=== PATIENT | female | born 1945 | race Caucasian/White ===

== ENCOUNTER 2017-07-20 12:14 | Outpatient (RCR) | payer MEDICARE, SELFPAY ==
[2017-07-20 12:50] VITALS: BP 168/81; PULSE 85; RESP 16; TEMP 36.6; BMI 38.7
--- NOTE | 2017-07-20 15:04 | RAD_ITS ---
STUDY: X-RAY - RIGHT TIBIA AND FIBULA REASON FOR EXAM: Female, 71 years old. Edema TECHNIQUE: 2 view(s) of the tibia and fibula were obtained. COMPARISON: None. FINDINGS: Normal visualized tibia. Normal visualized fibula. Degenerative changes at the knee. There is subcutaneous edema of the lower leg. Vascular calcifications. RAD/Tibia & Fibula 2 Views IMPRESSION: No acute bony injury of the tibia and fibula. Mild degenerative changes at the knee. Subcutaneous edema of the lower leg. Electronically Signed: Fabricio Short DO at 23:52 EST Tel [phone], Service support ,
--- NOTE | 2017-07-20 15:13 | PCM.WC.HP ---
(1) Non-pressure chronic ulcer of other part of right lower leg with fat layer exposed Status: Acute Current Visit: Yes Code(s): L97.812 - Non-pressure chronic ulcer of other part of right lower leg with fat layer exposed (2) Type 2 diabetes mellitus with other circulatory complications Status: Acute Current Visit: Yes Code(s): E11.59 - Type 2 diabetes mellitus with other circulatory complications (3) Bilateral leg edema Status: Acute Current Visit: Yes Code(s): R60.0 - Localized edema History of Present Illness Date of Service: 07/20/17 Chief Complaint: Non-healing ulcer R leg History of Wound: 71 year old diabetic woman with 2-3 week history of non-healing ulcer R alex. Pt states it started as a blister and opened. She was started on PO Keflex by her PCP and she has been applying hydrogel and telfa pads. She was referred her by her PCP due to no improvment in her leg ulceration. Has never had lower extremity vascular testing. Has not had recent blood work. Non-smoker. Blood sugar well-controlled, most recent A1c almost 1 year ago however and was 7.2. Pt does have CKD as well. No hx of CHF that she is aware of. Admits to sleeping in a recliner at night. Does not wear compression on her legs. Past Medical History Past Medical History: Chronic Problems Benign essential HTN (Chronic) DM2 (diabetes mellitus, type 2) (Chronic) TIA (transient ischemic attack) (Chronic) Breast CA (Chronic) Past Medical History: CKD Surgical History: mastectomy, - - Patient has had a right mastectomy and appendectomy Allergies/Adverse Reactions: Allergies clarithromycin [From Biaxin] Allergy (Verified 07/20/17 13:26) Unknown iodine Allergy (Verified 07/20/17 13:26) Unknown Home Medications: Ambulatory Orders Medication Instructions Recorded Aspirin [Aspirin, Baby] 81 mg PO DAILY@0800 08/08/13 Atenolol [Tenormin (beta geraldine)] 100 mg PO DAILY 08/08/13 Metformin(XR) [Glucophage Xr] 1,000 mg PO BID 08/08/13 Furosemide [Lasix] 40 mg PO DAILY #30 tablet 01/04/17 Losartan Potassium [Cozaar] 50 mg PO DAILY #30 tablet 01/04/17 Insulin Lispro [Humalog KwikPen] 0 unit SQ TID 04/15/17 Amlodipine Besylate [Norvasc] 5 mg PO DAILY 07/20/17 Cephalexin 500 mg PO TID 07/20/17 - Family History Sibling Cancer - Brother is from cancer that started in his leg Lives: Alone Smoking Status: Never smoker Tobacco Use: Non-smoker Alcohol: Rare Drugs: None Review of Systems Constitutional: Denies: Chills, Fever, Weight Change Eyes: Denies: Pain, Vision Change HEENT: Denies: Difficulty Hearing, Difficulty Swallowing, Sinus Congestion Cardiovascular: Reports: Edema. Denies: Chest Pain, Palpitations Respiratory: Denies: Cough, Shortness of Breath Gastrointestinal: Denies: Diarrhea, Nausea, Vomiting Genitourinary: Denies: Dysuria, Hematuria Skin: Reports: Wounds - R leg Neurological: Denies: Confusion, Numbness, Tingling Endocrine: Denies: Heat/ Cold Intolerance, Polydipsia, Polyuria Hematologic/ Lymphatic: Denies: Easy Bruising, Easy Bleeding, Hx of blood clot - Physical Exam Vital Signs Temp Pulse Resp BP 98 F 85 16 168/81 H 07/20/17 12:50 07/20/17 12:50 07/20/17 12:50 07/20/17 12:50 General: Alert, Oriented x3, Cooperative, No apparent distress Abdomen: Soft, Non Tender, Non-Distended Extremities: No clubbing, No cyanosis, Diminished Peripheral Pulses - likely secondary to edema, Edema Skin: Ulcer/ Wound - R alex with no erythema, no pus, no malodor, no increased warmth, no TTP of wound or constantine-wound area. No clinical signs of acute bacterial infection noted. See nurse's wound assessment. Wound Measurements and Assessment - Nurse 1 - General Ulcer Measurement Start: 07/20/17 12:30 Freq: Status: Active Protocol: Activity Type Activity Date Activity User E-Sign Co-Sign Detail Recorded Client Recorded Date Recorded By Document 07/20/17 12:50 [facility] [id number] 07/20/17 13:15 [facility] 07/20/17 12:50 Wound Center Nurse 1 [Ulcer Assessment Protocol: WC.WD.LOC] #1- RT LAT ALEX -Combined with other wound No -Current Size (cm) - Length 4.1 -Current Size (cm) - Width 4.6 -Current Size (cm) - Depth 0.1 -Total Square Cm 18.86 -Date of Last Picture (Recall this 07/20/17 field) -Photo Taken Yes -Epithelialization None Present -Tunneling No -Undermining/Tunneling No -Exudate Amt Small (1-33%) -Exudate Type Serosanguineous -Wound Margin Distinct, Outline Attached -Granulation Amt Small (1-33%) -Granulation Quality Red -Slough/Fibrin Yes -Necrosis Amt Medium (34-66%) -Necrotic Tissue Type Adherent Slough -Structure Exposed None/Limited to Skin Breakdown -Texture (Constantine-wound Skin Appearance) Scarring -Moisture (Constantine-wound Skin Appearance Dry/Scaly ) -Color (Constantine-wound Skin Appearance) Assessed Erythema -Temperature (Constantine-wound Skin No Abnormality Appearance) (Pt Warm) -Tenderness on Palpation (Constantine-wound Yes Skin Appearance) -Ulcer Cleansing Rinsed/ Irrigated with Saline -Foul Odor after Cleansing No -Anesthetic Used 5% Lidocaine Gel [Edema Assessment] -Lower Limb Edema Present Yes -Right Calf (cm) 47 -Right Ankle (cm) 24 -Point of Measurement (cm from the 7 medial instep) -Point of measurement (cm from the 48 medial instep) -Point of Measurement (cm from the 24.2 medial instep) WC - Nurse 2 - General Ulcer CM Notes Start: 07/20/17 12:30 Freq: Status: Active Protocol: Activity Type Activity Date Activity User E-Sign Co-Sign Detail Recorded Client Recorded Date Recorded By Document 07/20/17 14:03 MW [id number] 07/20/17 14:19 MW 07/20/17 14:03 Wound Center Nurse 2 [Procedure/Treatment] #1- RT LAT ALEX -Time 14:04 -Correct Patient Yes -Correct Side, Site, Position Yes -Correct Procedure Yes -Procedure Performed Yes -Type of Procedure Debridement -Clinical Debridement Subcutaneous -Post Debridement Size (cm) - Length 3.4 -Post Debridement Size (cm) - Width 4.2 -Post Debridement Size (cm) - Depth 0.1 -Total Square Cm 14.28 -Wound/Ulcer Outcome Not Healed -Ulcer Cleansing Rinsed/ Irrigated with Saline -Foul Odor after Cleansing No -Bioengineered Tissue No -Cetacaine [place] No -Bleeding Controlled with NA -Treatment Response Procedure Tolerated Well [See Physician Procedure note for Specifics] Debridement Note Post-Debridement Measurements/Treatment WC - Nurse 2 - General Ulcer CM Notes Start: 07/20/17 12:30 Freq: Status: Active Protocol: Activity Type Activity Date Activity User E-Sign Co-Sign Detail Recorded Client Recorded Date Recorded By Document 07/20/17 14:03 MW [id number] 07/20/17 14:19 MW 07/20/17 14:03 Wound Center Nurse 2 #1- RT LAT ALEX -Time 14:04 -Correct Patient Yes -Correct Side, Site, Position Yes -Correct Procedure Yes -Procedure Performed Yes -Type of Procedure Debridement -Clinical Debridement Subcutaneous -Post Debridement Size (cm) - Length 3.4 -Post Debridement Size (cm) - Width 4.2 -Post Debridement Size (cm) - Depth 0.1 -Total Square Cm 14.28 -Wound/Ulcer Outcome Not Healed -Ulcer Cleansing Rinsed/ Irrigated with Saline -Foul Odor after Cleansing No -Bioengineered Tissue No -Cetacaine [place] No -Bleeding Controlled with NA -Treatment Response Procedure Tolerated Well Wound debrided: R alex Laterality: Right Wound Grade/Stage: full thickness Type of Debridement: Excisional debridement Anesthesia Used: 4% Lidocaine Solution Depth: Down to and including healthy tissue, in the subcutaneous layer Percentage of wound debrided: 100 Instrument Used: 5mm curette Tissue Removed: fibrous slough Severity: Fat Layer Exposed Amount of bleeding with debridement: Mild Bleeding Controlled with: Pressure, Compression and gauze Patient tolerated procedure well Assessment/Plan Active Problems Type 2 diabetes mellitus with other circulatory complications (Acute) Bilateral leg edema (Acute) Non-pressure chronic ulcer of other part of right lower leg with fat layer exposed (Acute) Assessment: See diagnoses Plan: [employer] exam. SQ/excisional debridement R alex ulcer as above. Pt is non-smoker. Discussed importance of tight blood sugar control, adequate nutrition especially increased protein intake, to promote healing. Discussed importance of edema control--recommended leg elevation above her heart while resting or sleeping, avoiding idle sitting or standing, compression of at least 20-30 mmHg (AFTER vascular testing), increased activity, weight management. Pt not having much pain, no need to take NSAIDs. LEAs and venous duplex ordered. Moderate spandagrip until after vascular testing done. Pulses likely diminished bilaterally due to lower extremity edema, but again I did order arterial studies of bilateral legs. Stop previous dressings, start hydrofera blue and dry dressing 3x/week. Monitor for redness, pus, malodor, warmth, inc pain as well as for N/V/F/C and call or go to the ED with these. Return in 1 week, call with questions.
--- NOTE | 2017-07-20 15:22 | HP.PCM_ITS ---
(1) Non-pressure chronic ulcer of other part of right lower leg with fat layer exposed Status: Acute Current Visit: Yes Code(s): L97.812 - Non-pressure chronic ulcer of other part of right lower leg with fat layer exposed (2) Type 2 diabetes mellitus with other circulatory complications Status: Acute Current Visit: Yes Code(s): E11.59 - Type 2 diabetes mellitus with other circulatory complications (3) Bilateral leg edema Status: Acute Current Visit: Yes Code(s): R60.0 - Localized edema History of Present Illness Date of Service: 07/20/17 Chief Complaint: Non-healing ulcer R leg History of Wound: 71 year old diabetic woman with 2-3 week history of non- healing ulcer R alex. Pt states it started as a blister and opened. She was started on PO Keflex by her PCP and she has been applying hydrogel and telfa pads. She was referred her by her PCP due to no improvment in her leg ulceration. Has never had lower extremity vascular testing. Has not had recent blood work. Non-smoker. Blood sugar well-controlled, most recent A1c almost 1 year ago however and was 7.2. Pt does have CKD as well. No hx of CHF that she is aware of. Admits to sleeping in a recliner at night. Does not wear compression on her legs. Past Medical History Past Medical History: Chronic Problems Benign essential HTN (Chronic) DM2 (diabetes mellitus, type 2) (Chronic) TIA (transient ischemic attack) (Chronic) Breast CA (Chronic) Past Medical History: CKD Surgical History: mastectomy, - - Patient has had a right mastectomy and appendectomy Allergies/Adverse Reactions: Allergies clarithromycin [From Biaxin] Allergy (Verified 07/20/17 13:26) Unknown iodine Allergy (Verified 07/20/17 13:26) Unknown Home Medications: Ambulatory Orders Medication Instructions Recorded Aspirin [Aspirin, Baby] 81 mg PO DAILY@0800 08/08/13 Atenolol [Tenormin (beta geraldine)] 100 mg PO DAILY 08/08/13 Metformin(XR) [Glucophage Xr] 1,000 mg PO BID 08/08/13 Furosemide [Lasix] 40 mg PO DAILY #30 tablet 01/04/17 Losartan Potassium [Cozaar] 50 mg PO DAILY #30 tablet 01/04/17 Insulin Lispro [Humalog KwikPen] 0 unit SQ TID 04/15/17 Amlodipine Besylate [Norvasc] 5 mg PO DAILY 07/20/17 Cephalexin 500 mg PO TID 07/20/17 - Family History Sibling Cancer - Brother is from cancer that started in his leg Lives: Alone Smoking Status: Never smoker Tobacco Use: Non-smoker Alcohol: Rare Drugs: None Review of Systems Constitutional: Denies: Chills, Fever, Weight Change Eyes: Denies: Pain, Vision Change HEENT: Denies: Difficulty Hearing, Difficulty Swallowing, Sinus Congestion Cardiovascular: Reports: Edema. Denies: Chest Pain, Palpitations Respiratory: Denies: Cough, Shortness of Breath Gastrointestinal: Denies: Diarrhea, Nausea, Vomiting Genitourinary: Denies: Dysuria, Hematuria Skin: Reports: Wounds - R leg Neurological: Denies: Confusion, Numbness, Tingling Endocrine: Denies: Heat/ Cold Intolerance, Polydipsia, Polyuria Hematologic/ Lymphatic: Denies: Easy Bruising, Easy Bleeding, Hx of blood clot - Physical Exam Vital Signs Temp Pulse Resp BP 98 F 85 16 168/81 H 07/20/17 12:50 07/20/17 12:50 07/20/17 12:50 07/20/17 12:50 General: Alert, Oriented x3, Cooperative, No apparent distress Abdomen: Soft, Non Tender, Non-Distended Extremities: No clubbing, No cyanosis, Diminished Peripheral Pulses - likely secondary to edema, Edema Skin: Ulcer/ Wound - R alex with no erythema, no pus, no malodor, no increased warmth, no TTP of wound or constantine-wound area. No clinical signs of acute bacterial infection noted. See nurse's wound assessment. Wound Measurements and Assessment - Nurse 1 - General Ulcer Measurement Start: 07/20/17 12:30 Freq: Status: Active Protocol: Activity Type Activity Date Activity User E-Sign Co-Sign Detail Recorded Client Recorded Date Recorded By Document 07/20/17 12:50 [facility] [id number] 07/20/17 13:15 [facility] 07/20/17 12:50 Wound Center Nurse 1 [Ulcer Assessment Protocol: WC.WD.LOC] #1- RT LAT ALEX -Combined with other wound No -Current Size (cm) - Length 4.1 -Current Size (cm) - Width 4.6 -Current Size (cm) - Depth 0.1 -Total Square Cm 18.86 -Date of Last Picture (Recall this 07/20/17 field) -Photo Taken Yes -Epithelialization None Present -Tunneling No -Undermining/Tunneling No -Exudate Amt Small (1-33%) -Exudate Type Serosanguineous -Wound Margin Distinct, Outline Attached -Granulation Amt Small (1-33%) -Granulation Quality Red -Slough/Fibrin Yes -Necrosis Amt Medium (34-66%) -Necrotic Tissue Type Adherent Slough -Structure Exposed None/Limited to Skin Breakdown -Texture (Constantine-wound Skin Appearance) Scarring -Moisture (Constantine-wound Skin Appearance Dry/Scaly ) -Color (Constantine-wound Skin Appearance) Assessed Erythema -Temperature (Constantine-wound Skin No Abnormality Appearance) (Pt Warm) -Tenderness on Palpation (Constantine-wound Yes Skin Appearance) -Ulcer Cleansing Rinsed/ Irrigated with Saline -Foul Odor after Cleansing No -Anesthetic Used 5% Lidocaine Gel [Edema Assessment] -Lower Limb Edema Present Yes -Right Calf (cm) 47 -Right Ankle (cm) 24 -Point of Measurement (cm from the 7 medial instep) -Point of measurement (cm from the 48 medial instep) -Point of Measurement (cm from the 24.2 medial instep) WC - Nurse 2 - General Ulcer CM Notes Start: 07/20/17 12:30 Freq: Status: Active Protocol: Activity Type Activity Date Activity User E-Sign Co-Sign Detail Recorded Client Recorded Date Recorded By Document 07/20/17 14:03 MW [id number] 07/20/17 14:19 MW 07/20/17 14:03 Wound Center Nurse 2 [Procedure/Treatment] #1- RT LAT ALEX -Time 14:04 -Correct Patient Yes -Correct Side, Site, Position Yes -Correct Procedure Yes -Procedure Performed Yes -Type of Procedure Debridement -Clinical Debridement Subcutaneous -Post Debridement Size (cm) - Length 3.4 -Post Debridement Size (cm) - Width 4.2 -Post Debridement Size (cm) - Depth 0.1 -Total Square Cm 14.28 -Wound/Ulcer Outcome Not Healed -Ulcer Cleansing Rinsed/ Irrigated with Saline -Foul Odor after Cleansing No -Bioengineered Tissue No -Cetacaine [place] No -Bleeding Controlled with NA -Treatment Response Procedure Tolerated Well [See Physician Procedure note for Specifics] Debridement Note Post-Debridement Measurements/Treatment WC - Nurse 2 - General Ulcer CM Notes Start: 07/20/17 12:30 Freq: Status: Active Protocol: Activity Type Activity Date Activity User E-Sign Co-Sign Detail Recorded Client Recorded Date Recorded By Document 07/20/17 14:03 MW [id number] 07/20/17 14:19 MW 07/20/17 14:03 Wound Center Nurse 2 #1- RT LAT ALEX -Time 14:04 -Correct Patient Yes -Correct Side, Site, Position Yes -Correct Procedure Yes -Procedure Performed Yes -Type of Procedure Debridement -Clinical Debridement Subcutaneous -Post Debridement Size (cm) - Length 3.4 -Post Debridement Size (cm) - Width 4.2 -Post Debridement Size (cm) - Depth 0.1 -Total Square Cm 14.28 -Wound/Ulcer Outcome Not Healed -Ulcer Cleansing Rinsed/ Irrigated with Saline -Foul Odor after Cleansing No -Bioengineered Tissue No -Cetacaine [place] No -Bleeding Controlled with NA -Treatment Response Procedure Tolerated Well Wound debrided: R alex Laterality: Right Wound Grade/Stage: full thickness Type of Debridement: Excisional debridement Anesthesia Used: 4% Lidocaine Solution Depth: Down to and including healthy tissue, in the subcutaneous layer Percentage of wound debrided: 100 Instrument Used: 5mm curette Tissue Removed: fibrous slough Severity: Fat Layer Exposed Amount of bleeding with debridement: Mild Bleeding Controlled with: Pressure, Compression and gauze Patient tolerated procedure well Assessment/Plan Active Problems Type 2 diabetes mellitus with other circulatory complications (Acute) Bilateral leg edema (Acute) Non-pressure chronic ulcer of other part of right lower leg with fat layer exposed (Acute) Assessment: See diagnoses Plan: [employer] exam. SQ/excisional debridement R alex ulcer as above. Pt is non- smoker. Discussed importance of tight blood sugar control, adequate nutrition especially increased protein intake, to promote healing. Discussed importance of edema control--recommended leg elevation above her heart while resting or sleeping, avoiding idle sitting or standing, compression of at least 20-30 mmHg (AFTER vascular testing), increased activity, weight management. Pt not having much pain, no need to take NSAIDs. LEAs and venous duplex ordered. Moderate spandagrip until after vascular testing done. Pulses likely diminished bilaterally due to lower extremity edema, but again I did order arterial studies of bilateral legs. Stop previous dressings, start hydrofera blue and dry dressing 3x/week. Monitor for redness, pus, malodor, warmth, inc pain as well as for N/V/F/C and call or go to the ED with these. Return in 1 week, call with questions.
[2017-07-20 18:18] LABS: Absolute Lymphocyte Count 0.42 X10^3/ul (0.83-4.51); Absolute Neutrophil Count 1.8 X10^3/uL (2.0-7.7); Basophil# 0.01 X10^3/uL; Basophil% 0.4 % (0-1); Eosinophil# 0.07 X10^3/uL; Eosinophils% 2.8 % (0-5); Hematocrit 33.9 % (37-47); Hemoglobin 10.8 g/dl (12.0-15.0); Lymphocyte # 0.42 X10^3/ul (4.0); Lymphocyte % 16.7 % (19-41); Mean Corp Hgb Conc 31.9 g/gl (32-36); Mean Corpuscular Hgb 29.9 pg (27.0-32.0); Mean Corpuscular Volume 93.9 fL (81-99); Mean Platelet Vol. 10.6 fl (6.2-12.0); Monocyte# 0.23 X10^3/uL; Monocyte% 9.1 % (0-10); Neutrophil # 1.79 X10^3/uL (2.7-7.7); Platelet Count 86 K/mm3 (150-450); RBC Distribution Width CV 15.1 % (11.6-14.6); RBC Distribution Width SD 52.3 fl (35.1-43.9); Red Blood Count 3.61 M/mm3 (4.2-5.4); White Blood Count 2.5 K/mm3 (4.4-11.0)
[2017-07-20 18:20] LABS: Differential Indicated SCAN CRITERIA MET; POSITIVE COUNT NO; POSITIVE DIFFERENTIAL YES; POSITIVE MORPHOLOGY NO
[2017-07-20 18:38] LABS: Differential Comment SCANNED; Erythrocyte Sedimentation Rate 37 mm/hr (0-30)
[2017-07-20 19:23] LABS: ALB/GLOB Ratio 0.7 RATIO (0.9-2.4); AST(SGOT) 61 U/L (15-37); Alanine Aminotransfer ALT/SGPT 53 U/L (13-56); Albumin, Serum 3.2 g/dL (3.2-5.0); Alkaline Phosphatase 247 U/L (45-117); Anion Gap 8 (5-15); BUN 25 mg/dL (7-18); BUN/Creat Ratio 23.8 RATIO (10-20); Calcium,Total 10.5 mg/dL (8.5-10.1); Chloride 107 mmol/L (98-107); Creatinine, Serum 1.05 mg/dL (0.55-1.02); EST Glomerular Filtration Rate 55 mL/min (>60); Est Glom Filt Rate - Afr Amer 67 mL/min (>60); Estimated Creatinine Clearance 39.43 ml/min; Globulin 4.3 g/dL (2.2-4.2); Glucose 136 mg/dL (70-110); Potassium 4.2 mmol/L (3.5-5.1); Prealbumin 9.8 mg/dL (20.0-40.0); Protein, Total 7.5 g/dL (6.4-8.2); Sodium Level 142 mmol/L (136-145)
== END 2017-07-21 23:59 ==
LOC: WC 12:14
PROVIDERS: Family Provider Family Medicine; PCP Family Medicine; Visit Provider Podiatrist Foot & Ankle Surgery
DX: E11.622 Type 2 diabetes mellitus with other skin ulcer (principal); L97.812 Non-pressure chronic ulcer of other part of right lower leg with fat layer exposed; E11.59 Type 2 diabetes mellitus with other circulatory complications; R60.0 Localized edema; Z86.73 Personal history of transient ischemic attack (TIA), and cerebral infarction without residual deficits; Z85.3 Personal history of malignant neoplasm of breast; E11.22 Type 2 diabetes mellitus with diabetic chronic kidney disease; I12.9 Hypertensive chronic kidney disease with stage 1 through stage 4 chronic kidney disease, or unspecified chronic kidney disease; N18.9 Chronic kidney disease, unspecified; Z79.899 Other long term (current) drug therapy; Z79.82 Long term (current) use of aspirin; Z79.4 Long term (current) use of insulin
CPT/HCPCS: 11042; 36415; 73590; 80053; 83036; 84134; 85025; 85652; 86140; 99213; G0463

== ENCOUNTER 2017-08-02 12:22 | Outpatient (RCR) | payer MEDICARE, SELFPAY ==
[2017-07-20 12:50] VITALS: BP 168/81
[2017-07-22 01:21] VITALS: PULSE 85; RESP 16; TEMP 36.6
--- NOTE | 2017-08-02 12:25 | VDLE_ITS ---
Reason For Study: Non-healing wound RIGHT LEFT GSV is normal. GSV is normal. CFV is compressible, spontaneous, phasic, CFV is compressible, spontaneous, phasic, competent and demonstrates normal competent, and demonstrates normal augmentation. augmentation. FV is compressible, spontaneous, phasic, FV is compressible, spontaneous, phasic, competent and demonstrates normal competent and demonstrates normal augmentation. augmentation. POP V is compressible, spontaneous, phasic, POP V is compressible, spontaneous, phasic, competent and demonstrates normal competent and demonstrates normal augmentation. augmentation. T/P Trunk is compressible. T/P Trunk is compressible. PTV is compressible. PTV is compressible. RT PerV is compressible. LT PerV is compressible. SFJ is INCOMPETENT with reflux greater SFJ is competent than .5 sec GSV is competent above knee GSV is INCOMPETENt with reflux greater GSV is INCOMPETENT below knee with reflux than .5 sec and diameter of .36 x .36 cm greater than .5 sec and diameter of .31 SSV is competent. x .33 cm Procedure SSV is competent. Exam performed in department. A preliminary report was called and/or faxed to [facility]. Interpretation Summary Deep veins of the lower extremities are bilaterally patent and compressible segmentally. There is no evidence of deep vein thrombosis on either side. Valvular competence appears intact within the proximal deep venous systems bilaterally. The greater saphenous veins appear bilaterally patent and compressible segmentally. The right sapheno-femoral junction is incompetent . The left sapheno- femoral junction is competent . The right greater saphenous vein appears segmentally incompetent. The left greater saphenous vein appears competent above the knee. The left greater saphenous vein appears incompetent below the knee. Small saphenous veins are patent and competent bilaterally. Ordering Physician: Rob Claire Referring Physician: Rob Claire Performed By: Luis Felipe, Yris, RVT
--- NOTE | 2017-08-06 06:34 | LEAS ---
Arterial Study - Arterial Study Arterial Study: This is a 71-year-old female with a history of hypertension, diabetes mellitus, transient ischemic attack, and breast cancer. She presents with a chronic nonhealing wound to the right lower extremity. Suspecting the presence of atherosclerotic peripheral arterial occlusive disease, the patient was brought to the noninvasive vascular laboratory at this time for the purpose of bilateral noninvasive lower extremity arterial assessment. Doppler signal assessment was used to evaluate the pulses at ankle level bilaterally. The posterior tibial and dorsalis pedis pulses were triphasic bilaterally. Segmental limb pressures were obtained bilaterally. The right ankle pressure, as determined by posterior tibial pulse, was measured at 227 mmHg. The right ankle pressure, as determined by dorsalis pedis pulse, was measured at 228 mmHg. The right digital pressure was measured at 172 2 mmHg. The left ankle pressure, as determined by posterior tibial pulse, was measured at 220 mmHg. The left ankle pressure, as determined by dorsalis pedis pulse, was measured at 216 mmHg. The left digital pressure was measured at 167 mmHg. Pulse-volume recordings were obtained bilaterally and segmentally. Waveform amplitudes appeared to be satisfactory at all levels bilaterally, including low thigh, calf, ankle, and digital levels. Resting ankle-brachial indices were calculated bilaterally. The resting right ankle-brachial index was calculated to be 1.34. The resting left ankle-brachial index was calculated to be 1.29. Digital-brachial indices were calculated bilaterally. The right digital-brachial index was calculated to be 1.01. The left digital-brachial index was calculated to be 0.98. Impression: Based upon the findings of this resting noninvasive lower external study, there is no evidence of significant atherosclerotic peripheral arterial occlusive disease in the lower extremities bilaterally. Triphasic waveforms were noted at ankle level bilaterally. Resting ankle-brachial indices were bilaterally normal. Digital-brachial indices were also bilaterally normal. In summary, this represents a normal resting noninvasive lower extremity trial study bilaterally.
--- NOTE | 2017-08-06 06:38 | LEAS_ITS ---
Arterial Study - Arterial Study Arterial Study: This is a 71-year-old female with a history of hypertension, diabetes mellitus, transient ischemic attack, and breast cancer. She presents with a chronic nonhealing wound to the right lower extremity. Suspecting the presence of atherosclerotic peripheral arterial occlusive disease, the patient was brought to the noninvasive vascular laboratory at this time for the purpose of bilateral noninvasive lower extremity arterial assessment. Doppler signal assessment was used to evaluate the pulses at ankle level bilaterally. The posterior tibial and dorsalis pedis pulses were triphasic bilaterally. Segmental limb pressures were obtained bilaterally. The right ankle pressure, as determined by posterior tibial pulse, was measured at 227 mmHg. The right ankle pressure, as determined by dorsalis pedis pulse, was measured at 228 mmHg. The right digital pressure was measured at 172 2 mmHg. The left ankle pressure, as determined by posterior tibial pulse, was measured at 220 mmHg. The left ankle pressure, as determined by dorsalis pedis pulse, was measured at 216 mmHg. The left digital pressure was measured at 167 mmHg. Pulse-volume recordings were obtained bilaterally and segmentally. Waveform amplitudes appeared to be satisfactory at all levels bilaterally, including low thigh, calf, ankle, and digital levels. Resting ankle-brachial indices were calculated bilaterally. The resting right ankle-brachial index was calculated to be 1.34. The resting left ankle- brachial index was calculated to be 1.29. Digital-brachial indices were calculated bilaterally. The right digital- brachial index was calculated to be 1.01. The left digital-brachial index was calculated to be 0.98. Impression: Based upon the findings of this resting noninvasive lower external study, there is no evidence of significant atherosclerotic peripheral arterial occlusive disease in the lower extremities bilaterally. Triphasic waveforms were noted at ankle level bilaterally. Resting ankle-brachial indices were bilaterally normal. Digital-brachial indices were also bilaterally normal. In summary, this represents a normal resting noninvasive lower extremity trial study bilaterally.
== END 2017-08-18 23:59 ==
LOC: CVS 12:22
PROVIDERS: Family Provider Family Medicine; PCP Family Medicine; Visit Provider Podiatrist Foot & Ankle Surgery
DX: E11.622 Type 2 diabetes mellitus with other skin ulcer (principal); R60.0 Localized edema; Z86.73 Personal history of transient ischemic attack (TIA), and cerebral infarction without residual deficits; Z85.3 Personal history of malignant neoplasm of breast; L97.812 Non-pressure chronic ulcer of other part of right lower leg with fat layer exposed; E11.22 Type 2 diabetes mellitus with diabetic chronic kidney disease; N18.9 Chronic kidney disease, unspecified; I12.9 Hypertensive chronic kidney disease with stage 1 through stage 4 chronic kidney disease, or unspecified chronic kidney disease; E11.51 Type 2 diabetes mellitus with diabetic peripheral angiopathy without gangrene
CPT/HCPCS: 11042; 29581; 93923; 93970; 99211; 99212; G0463

== ENCOUNTER 2017-08-17 14:00 | Outpatient (RCR) | payer MEDICARE, SELFPAY ==
[2017-07-27 13:13] VITALS: BP 160/59; PULSE 80; RESP 18; TEMP 36.9
--- NOTE | 2017-07-27 14:33 | PCM.WC.PN ---
(1) Non-pressure chronic ulcer of other part of right lower leg with fat layer exposed Status: Acute Current Visit: Yes Code(s): L97.812 - Non-pressure chronic ulcer of other part of right lower leg with fat layer exposed (2) Type 2 diabetes mellitus with other circulatory complications Status: Acute Current Visit: Yes Code(s): E11.59 - Type 2 diabetes mellitus with other circulatory complications (3) Bilateral leg edema Status: Acute Current Visit: Yes Code(s): R60.0 - Localized edema Type of Wound Date of Service: 07/27/17 Chief Complaint: Non-healing ulcer R leg History of Wound: 71 year old diabetic woman with 2-3 week history of non-healing ulcer R alex. Pt states it started as a blister and opened. She was started on PO Keflex by her PCP and she has been applying hydrogel and telfa pads. She was referred her by her PCP due to no improvment in her leg ulceration. Has never had lower extremity vascular testing. Has not had recent blood work. Non-smoker. Blood sugar well-controlled, most recent A1c almost 1 year ago however and was 7.2. Pt does have CKD as well. No hx of CHF that she is aware of. Admits to sleeping in a recliner at night. Does not wear compression on her legs. 2/6-Has been trying to keep her legs elevated. Tolerated size F spandagrip, hydrofera blue well, but dressing adhered to the ulceration today. Vascular testing scheduled for next week. Pre-albumin low, emphasized importance of adequate nutrition today. 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 Progress of Wound: improved - Physical Exam Vital Signs Temp Pulse Resp BP 98.4 F 80 18 160/59 H 07/27/17 13:13 07/27/17 13:13 07/27/17 13:13 07/27/17 13:13 General: Alert, Oriented x3, Cooperative, No apparent distress Extremities: Edema Skin: Ulcer/ Wound - R alex with no erythema, no malodor, no pus, no calor, no TTP. No clinical signs of acute bacterial infection noted. See wound/edema assessment below. Wound Measurements and Assessment WC - Nurse 1 - General Ulcer Measurement Start: 07/27/17 13:13 Freq: Status: Active Protocol: Activity Type Activity Date Activity User E-Sign Co-Sign Detail Recorded Client Recorded Date Recorded By Document 07/27/17 13:13 MW [id number] 07/27/17 13:22 MW 07/27/17 13:13 Wound Center Nurse 1 [Ulcer Assessment Protocol: WC.WD.LOC] #1- RT LAT ALEX -Combined with other wound No -Current Size (cm) - Length 3.3 -Current Size (cm) - Width 4.2 -Current Size (cm) - Depth 0.1 -Total Square Cm 13.86 -Photo Taken No -Epithelialization Small 1-33% -Tunneling No -Undermining/Tunneling No -Circular Undermining No -Exudate Amt Small (1-33%) -Exudate Type Serosanguineous -Wound Margin Flat & Intact -Granulation Amt Medium (34-66%) -Granulation Quality Red -Slough/Fibrin Yes -Necrosis Amt Small (1-33%) -Necrotic Tissue Type Adherent Slough -Structure Exposed N/A -Texture (Cary-wound Skin Appearance) Assessed Localized Edema -Moisture (Cary-wound Skin Appearance Assessed ) Dry/Scaly -Color (Cary-wound Skin Appearance) No Abnormality Assessed -Temperature (Cary-wound Skin No Abnormality Appearance) (Pt Warm) -Tenderness on Palpation (Cary-wound Yes Skin Appearance) -Ulcer Cleansing Wound Cleanser -Foul Odor after Cleansing No -Anesthetic Used 4% Lidocaine Solution [Edema Assessment] -Lower Limb Edema Present Yes -Right Calf (cm) 45.5 -Right Ankle (cm) 24.5 WC - Nurse 2 - General Ulcer CM Notes Start: 07/27/17 13:13 Freq: Status: Active Protocol: Activity Type Activity Date Activity User E-Sign Co-Sign Detail Recorded Client Recorded Date Recorded By Document 07/27/17 13:32 MW [id number] 07/27/17 13:38 MW 07/27/17 13:32 Wound Center Nurse 2 [Procedure/Treatment] #1- RT LAT ALEX -Time 13:35 -Correct Patient Yes -Correct Side, Site, Position Yes -Correct Procedure Yes -Procedure Performed Yes -Type of Procedure Debridement -Clinical Debridement Subcutaneous -Post Debridement Size (cm) - Length 3.3 -Post Debridement Size (cm) - Width 2.9 -Post Debridement Size (cm) - Depth 0.1 -Total Square Cm 9.57 -Wound/Ulcer Outcome Not Healed -Ulcer Cleansing Rinsed/ Irrigated with Saline -Foul Odor after Cleansing No -Bioengineered Tissue No -Bleeding Controlled with Pressure -Treatment Response Procedure Tolerated Well [See Physician Procedure note for Specifics] Pain Scale: 0-10 Numeric [Pain] -Is Patient Pain Free? Yes Debridement Note Post-Debridement Measurements/Treatment WC - Nurse 2 - General Ulcer CM Notes Start: 07/27/17 13:13 Freq: Status: Active Protocol: Activity Type Activity Date Activity User E-Sign Co-Sign Detail Recorded Client Recorded Date Recorded By Document 07/27/17 13:32 MW [id number] 07/27/17 13:38 MW 07/27/17 13:32 Wound Center Nurse 2 #1- RT LAT ALEX -Time 13:35 -Correct Patient Yes -Correct Side, Site, Position Yes -Correct Procedure Yes -Procedure Performed Yes -Type of Procedure Debridement -Clinical Debridement Subcutaneous -Post Debridement Size (cm) - Length 3.3 -Post Debridement Size (cm) - Width 2.9 -Post Debridement Size (cm) - Depth 0.1 -Total Square Cm 9.57 -Wound/Ulcer Outcome Not Healed -Ulcer Cleansing Rinsed/ Irrigated with Saline -Foul Odor after Cleansing No -Bioengineered Tissue No -Bleeding Controlled with Pressure -Treatment Response Procedure Tolerated Well Pain Scale: 0-10 Numeric Is Patient Pain Free? Yes Wound debrided: R leg Laterality: Right Wound Grade/Stage: Full thickness Type of Debridement: Excisional debridement Anesthesia Used: 4% Lidocaine Solution Depth: Down to and including healthy tissue, in the subcutaneous layer Percentage of wound debrided: 100 Instrument Used: 3mm curette Tissue Removed: fibrous slough Severity: Fat Layer Exposed Amount of bleeding with debridement: Mild Bleeding Controlled with: Pressure, Compression and gauze Patient tolerated procedure well Assessment/Plan Active Problems Type 2 diabetes mellitus with other circulatory complications (Acute) Bilateral leg edema (Acute) Non-pressure chronic ulcer of other part of right lower leg with fat layer exposed (Acute) Assessment: See diagnoses Plan: SQ/excisional debridement R alex ulcer as above. Pt is non-smoker. Discussed importance of tight blood sugar control, adequate nutrition especially increased protein intake, to promote healing. Discussed importance of edema control--recommended leg elevation above her heart while resting or sleeping, avoiding idle sitting or standing, compression of at least 20-30 mmHg (AFTER vascular testing), increased activity, weight management. Pt not having much pain, no need to take NSAIDs. LEAs and venous duplex ordered last visit and are scheduled for next week. Cont moderate spandagrip until after vascular testing done. Pulses likely diminished bilaterally due to lower extremity edema, but again I did order arterial studies of bilateral legs. Cont hydrofera blue, add adaptic to wound first prior to applying hydrofera blue, and cont dry dressing 3x/week. Monitor for redness, pus, malodor, warmth, inc pain as well as for N/V/F/C and call or go to the ED with these. Return in 1 week, call with questions.
--- NOTE | 2017-07-27 14:37 | PN.PCM_ITS ---
(1) Non-pressure chronic ulcer of other part of right lower leg with fat layer exposed Status: Acute Current Visit: Yes Code(s): L97.812 - Non-pressure chronic ulcer of other part of right lower leg with fat layer exposed (2) Type 2 diabetes mellitus with other circulatory complications Status: Acute Current Visit: Yes Code(s): E11.59 - Type 2 diabetes mellitus with other circulatory complications (3) Bilateral leg edema Status: Acute Current Visit: Yes Code(s): R60.0 - Localized edema Type of Wound Date of Service: 07/27/17 Chief Complaint: Non-healing ulcer R leg History of Wound: 71 year old diabetic woman with 2-3 week history of non- healing ulcer R alex. Pt states it started as a blister and opened. She was started on PO Keflex by her PCP and she has been applying hydrogel and telfa pads. She was referred her by her PCP due to no improvment in her leg ulceration. Has never had lower extremity vascular testing. Has not had recent blood work. Non-smoker. Blood sugar well-controlled, most recent A1c almost 1 year ago however and was 7.2. Pt does have CKD as well. No hx of CHF that she is aware of. Admits to sleeping in a recliner at night. Does not wear compression on her legs. 2/6-Has been trying to keep her legs elevated. Tolerated size F spandagrip, hydrofera blue well, but dressing adhered to the ulceration today. Vascular testing scheduled for next week. Pre-albumin low, emphasized importance of adequate nutrition today. 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 Progress of Wound: improved - Physical Exam Vital Signs Temp Pulse Resp BP 98.4 F 80 18 160/59 H 07/27/17 13:13 07/27/17 13:13 07/27/17 13:13 07/27/17 13:13 General: Alert, Oriented x3, Cooperative, No apparent distress Extremities: Edema Skin: Ulcer/ Wound - R alex with no erythema, no malodor, no pus, no calor, no TTP. No clinical signs of acute bacterial infection noted. See wound/edema assessment below. Wound Measurements and Assessment WC - Nurse 1 - General Ulcer Measurement Start: 07/27/17 13:13 Freq: Status: Active Protocol: Activity Type Activity Date Activity User E-Sign Co-Sign Detail Recorded Client Recorded Date Recorded By Document 07/27/17 13:13 MW [id number] 07/27/17 13:22 MW 07/27/17 13:13 Wound Center Nurse 1 [Ulcer Assessment Protocol: WC.WD.LOC] #1- RT LAT ALEX -Combined with other wound No -Current Size (cm) - Length 3.3 -Current Size (cm) - Width 4.2 -Current Size (cm) - Depth 0.1 -Total Square Cm 13.86 -Photo Taken No -Epithelialization Small 1-33% -Tunneling No -Undermining/Tunneling No -Circular Undermining No -Exudate Amt Small (1-33%) -Exudate Type Serosanguineous -Wound Margin Flat & Intact -Granulation Amt Medium (34-66%) -Granulation Quality Red -Slough/Fibrin Yes -Necrosis Amt Small (1-33%) -Necrotic Tissue Type Adherent Slough -Structure Exposed N/A -Texture (Cary-wound Skin Appearance) Assessed Localized Edema -Moisture (Cary-wound Skin Appearance Assessed ) Dry/Scaly -Color (Cary-wound Skin Appearance) No Abnormality Assessed -Temperature (Cary-wound Skin No Abnormality Appearance) (Pt Warm) -Tenderness on Palpation (Cary-wound Yes Skin Appearance) -Ulcer Cleansing Wound Cleanser -Foul Odor after Cleansing No -Anesthetic Used 4% Lidocaine Solution [Edema Assessment] -Lower Limb Edema Present Yes -Right Calf (cm) 45.5 -Right Ankle (cm) 24.5 WC - Nurse 2 - General Ulcer CM Notes Start: 07/27/17 13:13 Freq: Status: Active Protocol: Activity Type Activity Date Activity User E-Sign Co-Sign Detail Recorded Client Recorded Date Recorded By Document 07/27/17 13:32 MW [id number] 07/27/17 13:38 MW 07/27/17 13:32 Wound Center Nurse 2 [Procedure/Treatment] #1- RT LAT ALEX -Time 13:35 -Correct Patient Yes -Correct Side, Site, Position Yes -Correct Procedure Yes -Procedure Performed Yes -Type of Procedure Debridement -Clinical Debridement Subcutaneous -Post Debridement Size (cm) - Length 3.3 -Post Debridement Size (cm) - Width 2.9 -Post Debridement Size (cm) - Depth 0.1 -Total Square Cm 9.57 -Wound/Ulcer Outcome Not Healed -Ulcer Cleansing Rinsed/ Irrigated with Saline -Foul Odor after Cleansing No -Bioengineered Tissue No -Bleeding Controlled with Pressure -Treatment Response Procedure Tolerated Well [See Physician Procedure note for Specifics] Pain Scale: 0-10 Numeric [Pain] -Is Patient Pain Free? Yes Debridement Note Post-Debridement Measurements/Treatment WC - Nurse 2 - General Ulcer CM Notes Start: 07/27/17 13:13 Freq: Status: Active Protocol: Activity Type Activity Date Activity User E-Sign Co-Sign Detail Recorded Client Recorded Date Recorded By Document 07/27/17 13:32 MW [id number] 07/27/17 13:38 MW 07/27/17 13:32 Wound Center Nurse 2 #1- RT LAT AELX -Time 13:35 -Correct Patient Yes -Correct Side, Site, Position Yes -Correct Procedure Yes -Procedure Performed Yes -Type of Procedure Debridement -Clinical Debridement Subcutaneous -Post Debridement Size (cm) - Length 3.3 -Post Debridement Size (cm) - Width 2.9 -Post Debridement Size (cm) - Depth 0.1 -Total Square Cm 9.57 -Wound/Ulcer Outcome Not Healed -Ulcer Cleansing Rinsed/ Irrigated with Saline -Foul Odor after Cleansing No -Bioengineered Tissue No -Bleeding Controlled with Pressure -Treatment Response Procedure Tolerated Well Pain Scale: 0-10 Numeric Is Patient Pain Free? Yes Wound debrided: R leg Laterality: Right Wound Grade/Stage: Full thickness Type of Debridement: Excisional debridement Anesthesia Used: 4% Lidocaine Solution Depth: Down to and including healthy tissue, in the subcutaneous layer Percentage of wound debrided: 100 Instrument Used: 3mm curette Tissue Removed: fibrous slough Severity: Fat Layer Exposed Amount of bleeding with debridement: Mild Bleeding Controlled with: Pressure, Compression and gauze Patient tolerated procedure well Assessment/Plan Active Problems Type 2 diabetes mellitus with other circulatory complications (Acute) Bilateral leg edema (Acute) Non-pressure chronic ulcer of other part of right lower leg with fat layer exposed (Acute) Assessment: See diagnoses Plan: SQ/excisional debridement R alex ulcer as above. Pt is non-smoker. Discussed importance of tight blood sugar control, adequate nutrition especially increased protein intake, to promote healing. Discussed importance of edema control--recommended leg elevation above her heart while resting or sleeping, avoiding idle sitting or standing, compression of at least 20-30 mmHg (AFTER vascular testing), increased activity, weight management. Pt not having much pain, no need to take NSAIDs. LEAs and venous duplex ordered last visit and are scheduled for next week. Cont moderate spandagrip until after vascular testing done. Pulses likely diminished bilaterally due to lower extremity edema , but again I did order arterial studies of bilateral legs. Cont hydrofera blue , add adaptic to wound first prior to applying hydrofera blue, and cont dry dressing 3x/week. Monitor for redness, pus, malodor, warmth, inc pain as well as for N/V/F/C and call or go to the ED with these. Return in 1 week, call with questions.
[2017-08-03 13:48] VITALS: BP 161/92; PULSE 84; RESP 18; TEMP 36.5
--- NOTE | 2017-08-03 14:45 | PCM.WC.PN ---
(1) Non-pressure chronic ulcer of other part of right lower leg with fat layer exposed Status: Acute Current Visit: Yes Code(s): L97.812 - Non-pressure chronic ulcer of other part of right lower leg with fat layer exposed (2) Type 2 diabetes mellitus with other circulatory complications Status: Acute Current Visit: Yes Code(s): E11.59 - Type 2 diabetes mellitus with other circulatory complications (3) Bilateral leg edema Status: Acute Current Visit: Yes Code(s): R60.0 - Localized edema (4) Venous insufficiency (chronic) (peripheral) Status: Chronic Current Visit: Yes Code(s): I87.2 - Venous insufficiency (chronic) (peripheral) Type of Wound Date of Service: 08/03/17 Chief Complaint: Non-healing ulcer R leg History of Wound: 71 year old diabetic woman with 2-3 week history of non-healing ulcer R alex. Pt states it started as a blister and opened. She was started on PO Keflex by her PCP and she has been applying hydrogel and telfa pads. She was referred her by her PCP due to no improvment in her leg ulceration. Has never had lower extremity vascular testing. Has not had recent blood work. Non-smoker. Blood sugar well-controlled, most recent A1c almost 1 year ago however and was 7.2. Pt does have CKD as well. No hx of CHF that she is aware of. Admits to sleeping in a recliner at night. Does not wear compression on her legs. 07/27-Has been trying to keep her legs elevated. Tolerated size F spandagrip, hydrofera blue well, but dressing adhered to the ulceration today. Vascular testing scheduled for next week. Pre-albumin low, emphasized importance of adequate nutrition today. WBC, RBC, Hgb as well as other labs abnormal, will fax results to the patient's PCP so he can decide if she needs referral back to her astrophysics teacher. 08/03--Has been trying to keep her legs elevated. Tolerated size F spandagrip, adaptic, and hydrofera blue well Vascular testing done and reveals normal BART[place]O but venous insufficiency bilateral. Pre-albumin low, emphasized importance of adequate nutrition today. WBC, RBC, Hgb as well as other labs abnormal, will fax results to the patient's PCP so he can decide if she needs referral back to her astrophysics teacher. I did recommend referral to a vascular surgeon for venous insufficiency, but patient defers for now and would like to wait until her ulcer heals. Progress of Wound: improved - Physical Exam Vital Signs Temp Pulse Resp BP 97.7 F L 84 18 161/92 H 08/03/17 13:48 08/03/17 13:48 08/03/17 13:48 08/03/17 13:48 General: Alert, Oriented x3, Cooperative, No apparent distress Extremities: Edema Skin: Ulcer/ Wound - R alex with no surrounding erythema, no malodor, no purulent drainage, no calor, no TTP of ulcer or constantine-ulcer area. No clinical signs of acute bacterial infection noted. See nurse's wound assessment. Wound Measurements and Assessment WC - Nurse 1 - General Ulcer Measurement Start: 07/27/17 13:13 Freq: Status: Active Protocol: Activity Type Activity Date Activity User E-Sign Co-Sign Detail Recorded Client Recorded Date Recorded By Document 08/03/17 13:48 [id number] 08/03/17 13:50 08/03/17 13:48 Wound Center Nurse 1 [Ulcer Assessment Protocol: WC.WD.LOC] #1- RT LAT ALEX -Combined with other wound No -Current Size (cm) - Length 2.2 -Current Size (cm) - Width 1.6 -Current Size (cm) - Depth 0.1 -Total Square Cm 3.52 -Photo Taken No -Epithelialization Small 1-33% -Tunneling No -Undermining/Tunneling No -Circular Undermining No -Classification - Thickness Full Thickness without Exposed Support Structure -Exudate Amt Small (1-33%) -Exudate Type Serosanguineous -Wound Margin Distinct, Outline Attached -Granulation Amt Large (67-100%) -Granulation Quality [place] -Slough/Fibrin Yes -Necrosis Amt Small (1-33%) -Necrotic Tissue Type Adherent Slough -Structure Exposed Fascia Fat Layer Exposed -Texture (Constantine-wound Skin Appearance) Friable Localized Edema -Moisture (Constantine-wound Skin Appearance No Abnormality ) -Color (Constantine-wound Skin Appearance) Erythema -Temperature (Constantine-wound Skin No Abnormality Appearance) (Pt Warm) -Tenderness on Palpation (Constantine-wound No Skin Appearance) -Ulcer Cleansing Rinsed/ Irrigated with Saline -Foul Odor after Cleansing No -Anesthetic Used 4% Lidocaine Solution [Edema Assessment] -Lower Limb Edema Present Yes -Right Calf (cm) 44.5 -Right Ankle (cm) 24.5 WC - Nurse 2 - General Ulcer CM Notes Start: 07/27/17 13:13 Freq: Status: Active Protocol: Activity Type Activity Date Activity User E-Sign Co-Sign Detail Recorded Client Recorded Date Recorded By Document 08/03/17 14:15 MW [id number] 08/03/17 14:18 MW 08/03/17 14:15 Wound Center Nurse 2 [Procedure/Treatment] #1- RT LAT ALEX -Time 14:15 -Correct Patient Yes -Correct Side, Site, Position Yes -Correct Procedure Yes -Procedure Performed Yes -Type of Procedure Debridement -Clinical Debridement Subcutaneous -Post Debridement Size (cm) - Length 2.2 -Post Debridement Size (cm) - Width 1.7 -Post Debridement Size (cm) - Depth 0.1 -Total Square Cm 3.74 -Wound/Ulcer Outcome Not Healed -Ulcer Cleansing Rinsed/ Irrigated with Saline -Foul Odor after Cleansing No -Bioengineered Tissue No -Bleeding Controlled with Pressure -Treatment Response Procedure Tolerated Well [See Physician Procedure note for Specifics] Pain Scale: 0-10 Numeric [Pain] -Is Patient Pain Free? Yes Debridement Note Post-Debridement Measurements/Treatment WC - Nurse 2 - General Ulcer CM Notes Start: 07/27/17 13:13 Freq: Status: Active Protocol: Activity Type Activity Date Activity User E-Sign Co-Sign Detail Recorded Client Recorded Date Recorded By Document 07/27/17 13:32 MW [id number] 07/27/17 13:38 MW Document 08/03/17 14:15 MW [id number] 08/03/17 14:18 MW 07/27/17 08/03/17 13:32 14:15 Wound Center Nurse 2 #1- RT LAT ALEX -Time 13:35 14:15 -Correct Patient Yes Yes -Correct Side, Site, Position Yes Yes -Correct Procedure Yes Yes -Procedure Performed Yes Yes -Type of Procedure Debridement Debridement -Clinical Debridement Subcutaneous Subcutaneous -Post Debridement Size (cm) - Length 3.3 2.2 -Post Debridement Size (cm) - Width 2.9 1.7 -Post Debridement Size (cm) - Depth 0.1 0.1 -Total Square Cm 9.57 3.74 -Wound/Ulcer Outcome Not Healed Not Healed -Ulcer Cleansing Rinsed/ Rinsed/ Irrigated with Irrigated with Saline Saline -Foul Odor after Cleansing No No -Bioengineered Tissue No No -Bleeding Controlled with Pressure Pressure -Treatment Response Procedure Procedure Tolerated Well Tolerated Well Pain Scale: 0-10 Numeric Is Patient Pain Free? Yes Yes Wound debrided: R alex Laterality: Right Wound Grade/Stage: full thickness VLU Type of Debridement: Excisional debridement Anesthesia Used: 4% Lidocaine Solution Depth: Down to and including healthy tissue, in the subcutaneous layer Percentage of wound debrided: 100 Instrument Used: 3mm curette Tissue Removed: fibrous slough Severity: Fat Layer Exposed Amount of bleeding with debridement: Mild Bleeding Controlled with: Pressure, Compression and gauze Patient tolerated procedure well Assessment/Plan Active Problems Venous insufficiency (chronic) (peripheral) (Chronic) Non-pressure chronic ulcer of other part of right lower leg with fat layer exposed (Acute) Bilateral leg edema (Acute) Type 2 diabetes mellitus with other circulatory complications (Acute) Assessment: See diagnoses Plan: SQ/excisional debridement R alex ulcer as above. Reviewed vascular testing. Discussed importance of tight blood sugar control, adequate nutrition especially increased protein intake, to promote healing. Discussed importance of edema control--recommended leg elevation above her heart while resting or sleeping, avoiding idle sitting or standing, compression of at least 20-30 mmHg, increased activity, weight management. Pt not having much pain, no need to take NSAIDs. Increase compression to 3M 2-layer coban wrap. Recommended referral to vascular surgery, but patient defers and wants to wait until her ulcer heals. Cont hydrofera blue, adaptic to wound first prior to applying hydrofera blue. Keep intact until Nurse Visit on Wednesday for dressing and compression wrap change. Monitor for redness, pus, malodor, warmth, inc pain as well as for N/V/F/C and call or go to the ED with these. Return in 1 week with me, call with questions.
--- NOTE | 2017-08-03 14:49 | PN.PCM_ITS ---
(1) Non-pressure chronic ulcer of other part of right lower leg with fat layer exposed Status: Acute Current Visit: Yes Code(s): L97.812 - Non-pressure chronic ulcer of other part of right lower leg with fat layer exposed (2) Type 2 diabetes mellitus with other circulatory complications Status: Acute Current Visit: Yes Code(s): E11.59 - Type 2 diabetes mellitus with other circulatory complications (3) Bilateral leg edema Status: Acute Current Visit: Yes Code(s): R60.0 - Localized edema (4) Venous insufficiency (chronic) (peripheral) Status: Chronic Current Visit: Yes Code(s): I87.2 - Venous insufficiency ( chronic) (peripheral) Type of Wound Date of Service: 08/03/17 Chief Complaint: Non-healing ulcer R leg History of Wound: 71 year old diabetic woman with 2-3 week history of non- healing ulcer R alex. Pt states it started as a blister and opened. She was started on PO Keflex by her PCP and she has been applying hydrogel and telfa pads. She was referred her by her PCP due to no improvment in her leg ulceration. Has never had lower extremity vascular testing. Has not had recent blood work. Non-smoker. Blood sugar well-controlled, most recent A1c almost 1 year ago however and was 7.2. Pt does have CKD as well. No hx of CHF that she is aware of. Admits to sleeping in a recliner at night. Does not wear compression on her legs. 07/27-Has been trying to keep her legs elevated. Tolerated size F spandagrip, hydrofera blue well, but dressing adhered to the ulceration today. Vascular testing scheduled for next week. Pre-albumin low, emphasized importance of adequate nutrition today. WBC, RBC, Hgb as well as other labs abnormal, will fax results to the patient's PCP so he can decide if she needs referral back to her lasting room machine operator. 08/03--Has been trying to keep her legs elevated. Tolerated size F spandagrip, adaptic, and hydrofera blue well Vascular testing done and reveals normal [place] but venous insufficiency bilateral. Pre-albumin low, emphasized importance of adequate nutrition today. WBC, RBC, Hgb as well as other labs abnormal, will fax results to the patient's PCP so he can decide if she needs referral back to her lasting room machine operator. I did recommend referral to a vascular surgeon for venous insufficiency, but patient defers for now and would like to wait until her ulcer heals. Progress of Wound: improved - Physical Exam Vital Signs Temp Pulse Resp BP 97.7 F L 84 18 161/92 H 08/03/17 13:48 08/03/17 13:48 08/03/17 13:48 08/03/17 13:48 General: Alert, Oriented x3, Cooperative, No apparent distress Extremities: Edema Skin: Ulcer/ Wound - R alex with no surrounding erythema, no malodor, no purulent drainage, no calor, no TTP of ulcer or constantine-ulcer area. No clinical signs of acute bacterial infection noted. See nurse's wound assessment. Wound Measurements and Assessment WC - Nurse 1 - General Ulcer Measurement Start: 07/27/17 13:13 Freq: Status: Active Protocol: Activity Type Activity Date Activity User E-Sign Co-Sign Detail Recorded Client Recorded Date Recorded By Document 08/03/17 13:48 [id number] 08/03/17 13:50 08/03/17 13:48 Wound Center Nurse 1 [Ulcer Assessment Protocol: WC.WD.LOC] #1- RT LAT ALEX -Combined with other wound No -Current Size (cm) - Length 2.2 -Current Size (cm) - Width 1.6 -Current Size (cm) - Depth 0.1 -Total Square Cm 3.52 -Photo Taken No -Epithelialization Small 1-33% -Tunneling No -Undermining/Tunneling No -Circular Undermining No -Classification - Thickness Full Thickness without Exposed Support Structure -Exudate Amt Small (1-33%) -Exudate Type Serosanguineous -Wound Margin Distinct, Outline Attached -Granulation Amt Large (67-100%) -Granulation Quality [place] -Slough/Fibrin Yes -Necrosis Amt Small (1-33%) -Necrotic Tissue Type Adherent Slough -Structure Exposed Fascia Fat Layer Exposed -Texture (Constantine-wound Skin Appearance) Friable Localized Edema -Moisture (Constantine-wound Skin Appearance No Abnormality ) -Color (Constantine-wound Skin Appearance) Erythema -Temperature (Constantine-wound Skin No Abnormality Appearance) (Pt Warm) -Tenderness on Palpation (Constantine-wound No Skin Appearance) -Ulcer Cleansing Rinsed/ Irrigated with Saline -Foul Odor after Cleansing No -Anesthetic Used 4% Lidocaine Solution [Edema Assessment] -Lower Limb Edema Present Yes -Right Calf (cm) 44.5 -Right Ankle (cm) 24.5 WC - Nurse 2 - General Ulcer CM Notes Start: 07/27/17 13:13 Freq: Status: Active Protocol: Activity Type Activity Date Activity User E-Sign Co-Sign Detail Recorded Client Recorded Date Recorded By Document 08/03/17 14:15 MW [id number] 08/03/17 14:18 MW 08/03/17 14:15 Wound Center Nurse 2 [Procedure/Treatment] #1- RT LAT ALEX -Time 14:15 -Correct Patient Yes -Correct Side, Site, Position Yes -Correct Procedure Yes -Procedure Performed Yes -Type of Procedure Debridement -Clinical Debridement Subcutaneous -Post Debridement Size (cm) - Length 2.2 -Post Debridement Size (cm) - Width 1.7 -Post Debridement Size (cm) - Depth 0.1 -Total Square Cm 3.74 -Wound/Ulcer Outcome Not Healed -Ulcer Cleansing Rinsed/ Irrigated with Saline -Foul Odor after Cleansing No -Bioengineered Tissue No -Bleeding Controlled with Pressure -Treatment Response Procedure Tolerated Well [See Physician Procedure note for Specifics] Pain Scale: 0-10 Numeric [Pain] -Is Patient Pain Free? Yes Debridement Note Post-Debridement Measurements/Treatment WC - Nurse 2 - General Ulcer CM Notes Start: 07/27/17 13:13 Freq: Status: Active Protocol: Activity Type Activity Date Activity User E-Sign Co-Sign Detail Recorded Client Recorded Date Recorded By Document 07/27/17 13:32 MW [id number] 07/27/17 13:38 MW Document 08/03/17 14:15 MW [id number] 08/03/17 14:18 MW 07/27/17 08/03/17 13:32 14:15 Wound Center Nurse 2 #1- RT LAT ALEX -Time 13:35 14:15 -Correct Patient Yes Yes -Correct Side, Site, Position Yes Yes -Correct Procedure Yes Yes -Procedure Performed Yes Yes -Type of Procedure Debridement Debridement -Clinical Debridement Subcutaneous Subcutaneous -Post Debridement Size (cm) - Length 3.3 2.2 -Post Debridement Size (cm) - Width 2.9 1.7 -Post Debridement Size (cm) - Depth 0.1 0.1 -Total Square Cm 9.57 3.74 -Wound/Ulcer Outcome Not Healed Not Healed -Ulcer Cleansing Rinsed/ Rinsed/ Irrigated with Irrigated with Saline Saline -Foul Odor after Cleansing No No -Bioengineered Tissue No No -Bleeding Controlled with Pressure Pressure -Treatment Response Procedure Procedure Tolerated Well Tolerated Well Pain Scale: 0-10 Numeric Is Patient Pain Free? Yes Yes Wound debrided: R alex Laterality: Right Wound Grade/Stage: full thickness VLU Type of Debridement: Excisional debridement Anesthesia Used: 4% Lidocaine Solution Depth: Down to and including healthy tissue, in the subcutaneous layer Percentage of wound debrided: 100 Instrument Used: 3mm curette Tissue Removed: fibrous slough Severity: Fat Layer Exposed Amount of bleeding with debridement: Mild Bleeding Controlled with: Pressure, Compression and gauze Patient tolerated procedure well Assessment/Plan Active Problems Venous insufficiency (chronic) (peripheral) (Chronic) Non-pressure chronic ulcer of other part of right lower leg with fat layer exposed (Acute) Bilateral leg edema (Acute) Type 2 diabetes mellitus with other circulatory complications (Acute) Assessment: See diagnoses Plan: SQ/excisional debridement R alex ulcer as above. Reviewed vascular testing. Discussed importance of tight blood sugar control, adequate nutrition especially increased protein intake, to promote healing. Discussed importance of edema control--recommended leg elevation above her heart while resting or sleeping, avoiding idle sitting or standing, compression of at least 20-30 mmHg , increased activity, weight management. Pt not having much pain, no need to take NSAIDs. Increase compression to 3M 2-layer coban wrap. Recommended referral to vascular surgery, but patient defers and wants to wait until her ulcer heals. Cont hydrofera blue, adaptic to wound first prior to applying hydrofera blue. Keep intact until Nurse Visit on Wednesday for dressing and compression wrap change. Monitor for redness, pus, malodor, warmth, inc pain as well as for N/V/F/C and call or go to the ED with these. Return in 1 week with me, call with questions.
[2017-08-06 10:58] VITALS: BP 154/113; PULSE 93; RESP 20; TEMP 37
[2017-08-10 13:23] VITALS: BP 158/81; PULSE 85; RESP 18; TEMP 36.6
--- NOTE | 2017-08-10 14:16 | PCM.WC.PN ---
(1) Non-pressure chronic ulcer of other part of right lower leg with fat layer exposed Status: Acute Current Visit: Yes Code(s): L97.812 - Non-pressure chronic ulcer of other part of right lower leg with fat layer exposed (2) Type 2 diabetes mellitus with other circulatory complications Status: Acute Current Visit: Yes Code(s): E11.59 - Type 2 diabetes mellitus with other circulatory complications (3) Bilateral leg edema Status: Acute Current Visit: Yes Code(s): R60.0 - Localized edema (4) Venous insufficiency (chronic) (peripheral) Status: Chronic Current Visit: Yes Code(s): I87.2 - Venous insufficiency (chronic) (peripheral) Type of Wound Date of Service: 08/10/17 Chief Complaint: Non-healing ulcer R leg History of Wound: 71 year old diabetic woman with 2-3 week history of non-healing ulcer R aelx. Pt states it started as a blister and opened. She was started on PO Keflex by her PCP and she has been applying hydrogel and telfa pads. She was referred her by her PCP due to no improvment in her leg ulceration. Has never had lower extremity vascular testing. Has not had recent blood work. Non-smoker. Blood sugar well-controlled, most recent A1c almost 1 year ago however and was 7.2. Pt does have CKD as well. No hx of CHF that she is aware of. Admits to sleeping in a recliner at night. Does not wear compression on her legs. 07/27-Has been trying to keep her legs elevated. Tolerated size F spandagrip, hydrofera blue well, but dressing adhered to the ulceration today. Vascular testing scheduled for next week. Pre-albumin low, emphasized importance of adequate nutrition today. 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 08/03--Has been trying to keep her legs elevated. Tolerated size F spandagrip, adaptic, and hydrofera blue well Vascular testing done and reveals normal BARTOLO but venous insufficiency bilateral. Pre-albumin low, emphasized importance of adequate nutrition today. 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 I did recommend referral to a vascular surgeon for venous insufficiency, but patient defers for now and would like to wait until her ulcer heals. 08/10--Improved with adaptic, hydrofera blue, and 3M 2-layer coban wrap for edema. The wrap did fall a few inches, so it will be wrapped higher today to hopefully prevent this. Pt did return on Wednesday for a nurse visit for compression wrap change. Tolerated wrap well, and was able to keep it dry. Ulcer measuring smaller. Discussed vascular surgeon once again, and pt defers this referral until after the ulcer heals. She states she wants to see Dr. Barnett at his office after the ulcer heals. She has been elevating her legs, increasing activity, avoiding idle sitting or standing. She does not have pain, so she does not need to take anti-inflammatory medications. She has been trying to lose weight. Progress of Wound: improved - Physical Exam Vital Signs Temp Pulse Resp BP 98 F 85 18 158/81 H 08/10/17 13:23 08/10/17 13:23 08/10/17 13:23 08/10/17 13:23 General: Alert, Oriented x3, Cooperative, No apparent distress Skin: Ulcer/ Wound - R laex with no pus, no malodor, no increased warmth, no TTP, no erythema. No clinical signs of acute bacterial infection noted. See wound/edema assessment below. Wound Measurements and Assessment WC - Nurse 1 - General Ulcer Measurement Start: 07/27/17 13:13 Freq: Status: Active Protocol: Activity Type Activity Date Activity User E-Sign Co-Sign Detail Recorded Client Recorded Date Recorded By Document 08/10/17 13:23 DL [id number] 08/10/17 13:30 DL 08/10/17 13:23 Wound Center Nurse 1 [Ulcer Assessment] #1- RT LAT ALEX -Current Size (cm) - Length 1.8 -Current Size (cm) - Width 1 -Current Size (cm) - Depth 0.1 -Total Square Cm 1.8 -Photo Taken No -Exudate Amt Small (1-33%) -Exudate Type Serosanguineous -Wound Margin Distinct, Outline Attached -Granulation Amt Large (67-100%) -Granulation Quality [place] -Necrosis Amt Small (1-33%) -Necrotic Tissue Type Adherent Slough -Structure Exposed N/A -Texture (Cary-wound Skin Appearance) No Abnormality -Moisture (Cary-wound Skin Appearance No Abnormality ) -Color (Cary-wound Skin Appearance) No Abnormality -Temperature (Cary-wound Skin No Abnormality Appearance) (Pt Warm) -Tenderness on Palpation (Cary-wound No Skin Appearance) -Ulcer Cleansing Wound Cleanser -Foul Odor after Cleansing No -Anesthetic Used 4% Lidocaine Solution [Edema Assessment] -Right Calf (cm) 44.5 -Right Ankle (cm) 21.1 WC - Nurse 2 - General Ulcer CM Notes Start: 07/27/17 13:13 Freq: Status: Active Protocol: Activity Type Activity Date Activity User E-Sign Co-Sign Detail Recorded Client Recorded Date Recorded By Document 08/10/17 14:01 MW [id number] 08/10/17 14:04 MW 08/10/17 14:01 Wound Center Nurse 2 [Procedure/Treatment] #1- RT LAT ALEX -Time 14:03 -Correct Patient Yes -Correct Side, Site, Position Yes -Correct Procedure Yes -Procedure Performed Yes -Type of Procedure Debridement -Clinical Debridement Subcutaneous -Post Debridement Size (cm) - Length 1.9 -Post Debridement Size (cm) - Width 0.9 -Post Debridement Size (cm) - Depth 0.1 -Total Square Cm 1.71 -Wound/Ulcer Outcome Not Healed -Ulcer Cleansing Rinsed/ Irrigated with Saline -Foul Odor after Cleansing No -Bioengineered Tissue No -Bleeding Controlled with Pressure -Treatment Response Procedure Tolerated Well [See Physician Procedure note for Specifics] Pain Scale: 0-10 Numeric [Pain] -Is Patient Pain Free? Yes Debridement Note Post-Debridement Measurements/Treatment - Nurse 2 - General Ulcer CM Notes Start: 07/27/17 13:13 Freq: Status: Active Protocol: Activity Type Activity Date Activity User E-Sign Co-Sign Detail Recorded Client Recorded Date Recorded By Document 07/27/17 13:32 MW [id number] 07/27/17 13:38 MW Document 08/03/17 14:15 MW [id number] 08/03/17 14:18 MW Document 08/10/17 14:01 MW [id number] 08/10/17 14:04 MW 07/27/17 08/03/17 08/10/17 13:32 14:15 14:01 Wound Center Nurse 2 #1- RT LAT ALEX -Time 13:35 14:15 14:03 -Correct Patient Yes Yes Yes -Correct Side, Site, Position Yes Yes Yes -Correct Procedure Yes Yes Yes -Procedure Performed Yes Yes Yes -Type of Procedure Debridement Debridement Debridement -Clinical Debridement Subcutaneous Subcutaneous Subcutaneous -Post Debridement Size (cm) - Length 3.3 2.2 1.9 -Post Debridement Size (cm) - Width 2.9 1.7 0.9 -Post Debridement Size (cm) - Depth 0.1 0.1 0.1 -Total Square Cm 9.57 3.74 1.71 -Wound/Ulcer Outcome Not Healed Not Healed Not Healed -Ulcer Cleansing Rinsed/ Rinsed/ Rinsed/ Irrigated with Irrigated with Irrigated with Saline Saline Saline -Foul Odor after Cleansing No No No -Bioengineered Tissue No No No -Bleeding Controlled with Pressure Pressure Pressure -Treatment Response Procedure Procedure Procedure Tolerated Well Tolerated Well Tolerated Well Pain Scale: 0-10 Numeric Is Patient Pain Free? Yes Yes Yes Wound debrided: R alex Laterality: Right Wound Grade/Stage: Full thickness VLU Type of Debridement: Excisional debridement Anesthesia Used: 4% Lidocaine Solution Depth: Down to and including healthy tissue, in the subcutaneous layer Percentage of wound debrided: 100 Instrument Used: 3mm curette Tissue Removed: fibrous slough Severity: Fat Layer Exposed Amount of bleeding with debridement: Mild Bleeding Controlled with: Pressure, Compression and gauze Patient tolerated procedure well Assessment/Plan Active Problems Venous insufficiency (chronic) (peripheral) (Chronic) Non-pressure chronic ulcer of other part of right lower leg with fat layer exposed (Acute) Bilateral leg edema (Acute) Type 2 diabetes mellitus with other circulatory complications (Acute) Assessment: See diagnoses Plan: SQ/excisional debridement R alex ulcer as above. Reviewed vascular testing. Discussed importance of tight blood sugar control, adequate nutrition especially increased protein intake, to promote healing. Discussed importance of edema control--recommended leg elevation above her heart while resting or sleeping, avoiding idle sitting or standing, compression of at least 20-30 mmHg, increased activity, weight management. Pt not having much pain, no need to take NSAIDs. Continue increased compression with 3M 2-layer coban wrap. Recommended referral to vascular surgery again, but patient defers and wants to wait until her ulcer heals. Cont hydrofera blue, adaptic to wound first prior to applying hydrofera blue. Keep intact for 1 week. Monitor for redness, pus, malodor, warmth, inc pain as well as for N/V/F/C and call or go to the ED with these. Return in 1 week with me, call with questions.
--- NOTE | 2017-08-10 14:21 | PN.PCM_ITS ---
(1) Non-pressure chronic ulcer of other part of right lower leg with fat layer exposed Status: Acute Current Visit: Yes Code(s): L97.812 - Non-pressure chronic ulcer of other part of right lower leg with fat layer exposed (2) Type 2 diabetes mellitus with other circulatory complications Status: Acute Current Visit: Yes Code(s): E11.59 - Type 2 diabetes mellitus with other circulatory complications (3) Bilateral leg edema Status: Acute Current Visit: Yes Code(s): R60.0 - Localized edema (4) Venous insufficiency (chronic) (peripheral) Status: Chronic Current Visit: Yes Code(s): I87.2 - Venous insufficiency ( chronic) (peripheral) Type of Wound Date of Service: 08/10/17 Chief Complaint: Non-healing ulcer R leg History of Wound: 71 year old diabetic woman with 2-3 week history of non- healing ulcer R alex. Pt states it started as a blister and opened. She was started on PO Keflex by her PCP and she has been applying hydrogel and telfa pads. She was referred her by her PCP due to no improvment in her leg ulceration. Has never had lower extremity vascular testing. Has not had recent blood work. Non-smoker. Blood sugar well-controlled, most recent A1c almost 1 year ago however and was 7.2. Pt does have CKD as well. No hx of CHF that she is aware of. Admits to sleeping in a recliner at night. Does not wear compression on her legs. 07/27-Has been trying to keep her legs elevated. Tolerated size F spandagrip, hydrofera blue well, but dressing adhered to the ulceration today. Vascular testing scheduled for next week. Pre-albumin low, emphasized importance of adequate nutrition today. 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 08/03--Has been trying to keep her legs elevated. Tolerated size F spandagrip, adaptic, and hydrofera blue well Vascular testing done and reveals normal [place] but venous insufficiency bilateral. Pre-albumin low, emphasized importance of adequate nutrition today. 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 I did recommend referral to a vascular surgeon for venous insufficiency, but patient defers for now and would like to wait until her ulcer heals. 08/10--Improved with adaptic, hydrofera blue, and 3M 2-layer coban wrap for edema. The wrap did fall a few inches, so it will be wrapped higher today to hopefully prevent this. Pt did return on Wednesday for a nurse visit for compression wrap change. Tolerated wrap well, and was able to keep it dry. Ulcer measuring smaller. Discussed vascular surgeon once again, and pt defers this referral until after the ulcer heals. She states she wants to see Dr. Barnett at his office after the ulcer heals. She has been elevating her legs, increasing activity, avoiding idle sitting or standing. She does not have pain, so she does not need to take anti-inflammatory medications. She has been trying to lose weight. Progress of Wound: improved - Physical Exam Vital Signs Temp Pulse Resp BP 98 F 85 18 158/81 H 08/10/17 13:23 08/10/17 13:23 08/10/17 13:23 08/10/17 13:23 General: Alert, Oriented x3, Cooperative, No apparent distress Skin: Ulcer/ Wound - R alex with no pus, no malodor, no increased warmth, no TTP , no erythema. No clinical signs of acute bacterial infection noted. See wound /edema assessment below. Wound Measurements and Assessment WC - Nurse 1 - General Ulcer Measurement Start: 07/27/17 13:13 Freq: Status: Active Protocol: Activity Type Activity Date Activity User E-Sign Co-Sign Detail Recorded Client Recorded Date Recorded By Document 08/10/17 13:23 DL [id number] 08/10/17 13:30 DL 08/10/17 13:23 Wound Center Nurse 1 [Ulcer Assessment] #1- RT LAT ALEX -Current Size (cm) - Length 1.8 -Current Size (cm) - Width 1 -Current Size (cm) - Depth 0.1 -Total Square Cm 1.8 -Photo Taken No -Exudate Amt Small (1-33%) -Exudate Type Serosanguineous -Wound Margin Distinct, Outline Attached -Granulation Amt Large (67-100%) -Granulation Quality [place] -Necrosis Amt Small (1-33%) -Necrotic Tissue Type Adherent Slough -Structure Exposed N/A -Texture (Cary-wound Skin Appearance) No Abnormality -Moisture (Cary-wound Skin Appearance No Abnormality ) -Color (Cary-wound Skin Appearance) No Abnormality -Temperature (Cary-wound Skin No Abnormality Appearance) (Pt Warm) -Tenderness on Palpation (Cary-wound No Skin Appearance) -Ulcer Cleansing Wound Cleanser -Foul Odor after Cleansing No -Anesthetic Used 4% Lidocaine Solution [Edema Assessment] -Right Calf (cm) 44.5 -Right Ankle (cm) 21.1 WC - Nurse 2 - General Ulcer CM Notes Start: 07/27/17 13:13 Freq: Status: Active Protocol: Activity Type Activity Date Activity User E-Sign Co-Sign Detail Recorded Client Recorded Date Recorded By Document 08/10/17 14:01 MW [id number] 08/10/17 14:04 MW 08/10/17 14:01 Wound Center Nurse 2 [Procedure/Treatment] #1- RT LAT ALEX -Time 14:03 -Correct Patient Yes -Correct Side, Site, Position Yes -Correct Procedure Yes -Procedure Performed Yes -Type of Procedure Debridement -Clinical Debridement Subcutaneous -Post Debridement Size (cm) - Length 1.9 -Post Debridement Size (cm) - Width 0.9 -Post Debridement Size (cm) - Depth 0.1 -Total Square Cm 1.71 -Wound/Ulcer Outcome Not Healed -Ulcer Cleansing Rinsed/ Irrigated with Saline -Foul Odor after Cleansing No -Bioengineered Tissue No -Bleeding Controlled with Pressure -Treatment Response Procedure Tolerated Well [See Physician Procedure note for Specifics] Pain Scale: 0-10 Numeric [Pain] -Is Patient Pain Free? Yes Debridement Note Post-Debridement Measurements/Treatment - Nurse 2 - General Ulcer CM Notes Start: 07/27/17 13:13 Freq: Status: Active Protocol: Activity Type Activity Date Activity User E-Sign Co-Sign Detail Recorded Client Recorded Date Recorded By Document 07/27/17 13:32 MW [id number] 07/27/17 13:38 MW Document 08/03/17 14:15 MW [id number] 08/03/17 14:18 MW Document 08/10/17 14:01 MW [id number] 08/10/17 14:04 MW 07/27/17 08/03/17 08/10/17 13:32 14:15 14:01 Wound Center Nurse 2 #1- RT LAT ALEX -Time 13:35 14:15 14:03 -Correct Patient Yes Yes Yes -Correct Side, Site, Position Yes Yes Yes -Correct Procedure Yes Yes Yes -Procedure Performed Yes Yes Yes -Type of Procedure Debridement Debridement Debridement -Clinical Debridement Subcutaneous Subcutaneous Subcutaneous -Post Debridement Size (cm) - Length 3.3 2.2 1.9 -Post Debridement Size (cm) - Width 2.9 1.7 0.9 -Post Debridement Size (cm) - Depth 0.1 0.1 0.1 -Total Square Cm 9.57 3.74 1.71 -Wound/Ulcer Outcome Not Healed Not Healed Not Healed -Ulcer Cleansing Rinsed/ Rinsed/ Rinsed/ Irrigated with Irrigated with Irrigated with Saline Saline Saline -Foul Odor after Cleansing No No No -Bioengineered Tissue No No No -Bleeding Controlled with Pressure Pressure Pressure -Treatment Response Procedure Procedure Procedure Tolerated Well Tolerated Well Tolerated Well Pain Scale: 0-10 Numeric Is Patient Pain Free? Yes Yes Yes Wound debrided: R alex Laterality: Right Wound Grade/Stage: Full thickness VLU Type of Debridement: Excisional debridement Anesthesia Used: 4% Lidocaine Solution Depth: Down to and including healthy tissue, in the subcutaneous layer Percentage of wound debrided: 100 Instrument Used: 3mm curette Tissue Removed: fibrous slough Severity: Fat Layer Exposed Amount of bleeding with debridement: Mild Bleeding Controlled with: Pressure, Compression and gauze Patient tolerated procedure well Assessment/Plan Active Problems Venous insufficiency (chronic) (peripheral) (Chronic) Non-pressure chronic ulcer of other part of right lower leg with fat layer exposed (Acute) Bilateral leg edema (Acute) Type 2 diabetes mellitus with other circulatory complications (Acute) Assessment: See diagnoses Plan: SQ/excisional debridement R alex ulcer as above. Reviewed vascular testing. Discussed importance of tight blood sugar control, adequate nutrition especially increased protein intake, to promote healing. Discussed importance of edema control--recommended leg elevation above her heart while resting or sleeping, avoiding idle sitting or standing, compression of at least 20-30 mmHg , increased activity, weight management. Pt not having much pain, no need to take NSAIDs. Continue increased compression with 3M 2-layer coban wrap. Recommended referral to vascular surgery again, but patient defers and wants to wait until her ulcer heals. Cont hydrofera blue, adaptic to wound first prior to applying hydrofera blue. Keep intact for 1 week. Monitor for redness, pus, malodor, warmth, inc pain as well as for N/V/F/C and call or go to the ED with these. Return in 1 week with me, call with questions.
[2017-08-17 13:44] VITALS: BP 142/75; PULSE 73; RESP 18; TEMP 37
--- NOTE | 2017-08-17 14:24 | PCM.WC.PN ---
(1) Non-pressure chronic ulcer of other part of right lower leg with fat layer exposed Status: Acute Current Visit: Yes Code(s): L97.812 - Non-pressure chronic ulcer of other part of right lower leg with fat layer exposed (2) Type 2 diabetes mellitus with other circulatory complications Status: Acute Current Visit: Yes Code(s): E11.59 - Type 2 diabetes mellitus with other circulatory complications (3) Venous insufficiency (chronic) (peripheral) Status: Chronic Current Visit: Yes Code(s): I87.2 - Venous insufficiency (chronic) (peripheral) (4) Bilateral leg edema Status: Acute Current Visit: Yes Code(s): R60.0 - Localized edema Type of Wound Date of Service: 08/17/17 Chief Complaint: Non-healing ulcer R leg History of Wound: 71 year old diabetic woman with 2-3 week history of non-healing ulcer R alex. Pt states it started as a blister and opened. She was started on PO Keflex by her PCP and she has been applying hydrogel and telfa pads. She was referred her by her PCP due to no improvment in her leg ulceration. Has never had lower extremity vascular testing. Has not had recent blood work. Non-smoker. Blood sugar well-controlled, most recent A1c almost 1 year ago however and was 7.2. Pt does have CKD as well. No hx of CHF that she is aware of. Admits to sleeping in a recliner at night. Does not wear compression on her legs. 07/27-Has been trying to keep her legs elevated. Tolerated size F spandagrip, hydrofera blue well, but dressing adhered to the ulceration today. Vascular testing scheduled for next week. Pre-albumin low, emphasized importance of adequate nutrition today. WBC, RBC, Hgb as well as other labs abnormal, will fax results to the patient's PCP so he can decide if she needs referral back to her stacker tender. 08/03--Has been trying to keep her legs elevated. Tolerated size F spandagrip, adaptic, and hydrofera blue well Vascular testing done and reveals normal BARTOLO but venous insufficiency bilateral. Pre-albumin low, emphasized importance of adequate nutrition today. WBC, RBC, Hgb as well as other labs abnormal, will fax results to the patient's PCP so he can decide if she needs referral back to her stacker tender. I did recommend referral to a vascular surgeon for venous insufficiency, but patient defers for now and would like to wait until her ulcer heals. 08/10--Improved with adaptic, hydrofera blue, and 3M 2-layer coban wrap for edema. The wrap did fall a few inches, so it will be wrapped higher today to hopefully prevent this. Pt did return on Wednesday for a nurse visit for compression wrap change. Tolerated wrap well, and was able to keep it dry. Ulcer measuring smaller. Discussed vascular surgeon once again, and pt defers this referral until after the ulcer heals. She states she wants to see Dr. Barnett at his office after the ulcer heals. She has been elevating her legs, increasing activity, avoiding idle sitting or standing. She does not have pain, so she does not need to take anti-inflammatory medications. She has been trying to lose weight. 08/17--Improved with adaptic, hydrofera blue, and 3M 2-layer coban wrap for edema. The 3M 2-layer coban stayed in place this week. Tolerated wrap well, and was able to keep it dry. Ulcer measuring smaller. Discussed vascular surgeon once again, and pt defers this referral until after the ulcer heals. She states she wants to see Dr. Barnett at his office after the ulcer heals. She has been elevating her legs, increasing activity, avoiding idle sitting or standing. She does not have pain, so she does not need to take anti-inflammatory medications. She has been trying to lose weight. Pt is diabetic with blood sugar 147 mg/dL this AM. Progress of Wound: improved - Physical Exam Vital Signs Temp Pulse Resp BP 98.6 F 73 18 142/75 H 08/17/17 13:44 08/17/17 13:44 08/17/17 13:44 08/17/17 13:44 General: Alert, Oriented x3, Cooperative, No apparent distress Extremities: Edema Skin: Ulcer/ Wound - R alex with no erythema, no malodor, no pus, no calor, no pain. No clinical signs of acute bacterial infection noted. See wound/edema assessment below. Wound Measurements and Assessment WC - Nurse 1 - General Ulcer Measurement Start: 07/27/17 13:13 Freq: Status: Active Protocol: Activity Type Activity Date Activity User E-Sign Co-Sign Detail Recorded Client Recorded Date Recorded By Document 08/17/17 13:44 DV [id number] 08/17/17 14:01 DV 08/17/17 13:44 Wound Center Nurse 1 [Ulcer Assessment] #1- RT LAT ALEX -Combined with other wound No -Current Size (cm) - Length 0.8 -Current Size (cm) - Width 0.3 -Current Size (cm) - Depth 0.1 -Total Square Cm 0.24 -Date of Last Picture (Recall this 08/17/17 field) -Photo Taken Yes -Epithelialization Small 1-33% -Tunneling No -Undermining/Tunneling No -Circular Undermining No -Classification - Thickness Full Thickness without Exposed Support Structure -Exudate Amt Small (1-33%) -Exudate Type Serosanguineous -Wound Margin Distinct, Outline Attached -Granulation Amt Medium (34-66%) -Granulation Quality Red -Slough/Fibrin No -Necrosis Amt None Present (0 %) -Structure Exposed None/Limited to Skin Breakdown -Texture (Cary-wound Skin Appearance) Assessed Scarring -Moisture (Cary-wound Skin Appearance Assessed ) Dry/Scaly -Color (Cary-wound Skin Appearance) No Abnormality Assessed -Temperature (Cary-wound Skin No Abnormality Appearance) (Pt Warm) -Ulcer Cleansing Wound Cleanser -Foul Odor after Cleansing No -Anesthetic Used 4% Lidocaine Solution [Edema Assessment] -Lower Limb Edema Present No -Right Calf (cm) 33.7 -Right Ankle (cm) 22.0 WC - Nurse 2 - General Ulcer CM Notes Start: 07/27/17 13:13 Freq: Status: Active Protocol: Activity Type Activity Date Activity User E-Sign Co-Sign Detail Recorded Client Recorded Date Recorded By Document 08/17/17 14:13 MW [id number] 08/17/17 14:14 MW 08/17/17 14:13 Wound Center Nurse 2 [Procedure/Treatment] #1- RT LAT ALEX -Time 14:13 -Correct Patient Yes -Correct Side, Site, Position Yes -Correct Procedure Yes -Procedure Performed Yes -Type of Procedure Debridement -Clinical Debridement Subcutaneous -Post Debridement Size (cm) - Length 0.9 -Post Debridement Size (cm) - Width 0.3 -Post Debridement Size (cm) - Depth 0.1 -Total Square Cm 0.27 -Wound/Ulcer Outcome Not Healed -Ulcer Cleansing Rinsed/ Irrigated with Saline -Foul Odor after Cleansing No -Bioengineered Tissue No -Bleeding Controlled with Pressure -Treatment Response Procedure Tolerated Well [See Physician Procedure note for Specifics] Pain Scale: 0-10 Numeric [Pain] -Is Patient Pain Free? Yes Debridement Note Post-Debridement Measurements/Treatment WC - Nurse 2 - General Ulcer CM Notes Start: 07/27/17 13:13 Freq: Status: Active Protocol: Activity Type Activity Date Activity User E-Sign Co-Sign Detail Recorded Client Recorded Date Recorded By Document 07/27/17 13:32 MW [id number] 07/27/17 13:38 MW Document 08/03/17 14:15 MW [id number] 08/03/17 14:18 MW Document 08/10/17 14:01 MW [id number] 08/10/17 14:04 MW Document 08/17/17 14:13 MW [id number] 08/17/17 14:14 MW 07/27/17 08/03/17 08/10/17 13:32 14:15 14:01 Wound Center Nurse 2 #1- RT LAT ALEX -Time 13:35 14:15 14:03 -Correct Patient Yes Yes Yes -Correct Side, Site, Position Yes Yes Yes -Correct Procedure Yes Yes Yes -Procedure Performed Yes Yes Yes -Type of Procedure Debridement Debridement Debridement -Clinical Debridement Subcutaneous Subcutaneous Subcutaneous -Post Debridement Size (cm) - Length 3.3 2.2 1.9 -Post Debridement Size (cm) - Width 2.9 1.7 0.9 -Post Debridement Size (cm) - Depth 0.1 0.1 0.1 -Total Square Cm 9.57 3.74 1.71 -Wound/Ulcer Outcome Not Healed Not Healed Not Healed -Ulcer Cleansing Rinsed/ Rinsed/ Rinsed/ Irrigated with Irrigated with Irrigated with Saline Saline Saline -Foul Odor after Cleansing No No No -Bioengineered Tissue No No No -Bleeding Controlled with Pressure Pressure Pressure -Treatment Response Procedure Procedure Procedure Tolerated Well Tolerated Well Tolerated Well Pain Scale: 0-10 Numeric Is Patient Pain Free? Yes Yes Yes 08/17/17 14:13 Wound Center Nurse 2 #1- RT LAT ALEX -Time 14:13 -Correct Patient Yes -Correct Side, Site, Position Yes -Correct Procedure Yes -Procedure Performed Yes -Type of Procedure Debridement -Clinical Debridement Subcutaneous -Post Debridement Size (cm) - Length 0.9 -Post Debridement Size (cm) - Width 0.3 -Post Debridement Size (cm) - Depth 0.1 -Total Square Cm 0.27 -Wound/Ulcer Outcome Not Healed -Ulcer Cleansing Rinsed/ Irrigated with Saline -Foul Odor after Cleansing No -Bioengineered Tissue No -Bleeding Controlled with Pressure -Treatment Response Procedure Tolerated Well Pain Scale: 0-10 Numeric Is Patient Pain Free? Yes Wound debrided: R alex Laterality: Right Wound Grade/Stage: full thickness VLU Type of Debridement: Excisional debridement Anesthesia Used: 4% Lidocaine Solution Depth: Down to and including healthy tissue, in the subcutaneous layer Percentage of wound debrided: 100 Instrument Used: 3mm curette Tissue Removed: fibrous slough Severity: Fat Layer Exposed Amount of bleeding with debridement: Mild Bleeding Controlled with: Pressure, Compression and gauze Patient tolerated procedure well Assessment/Plan Active Problems Venous insufficiency (chronic) (peripheral) (Chronic) Non-pressure chronic ulcer of other part of right lower leg with fat layer exposed (Acute) Bilateral leg edema (Acute) Type 2 diabetes mellitus with other circulatory complications (Acute) Assessment: See diagnoses Plan: SQ/excisional debridement R alex ulcer as above. Reviewed vascular testing. Discussed importance of tight blood sugar control, adequate nutrition especially increased protein intake, to promote healing. Discussed importance of edema control--recommended leg elevation above her heart while resting or sleeping, avoiding idle sitting or standing, compression of at least 20-30 mmHg, increased activity, weight management. Pt not having much pain, no need to take NSAIDs. Continue increased compression with 3M 2-layer coban wrap. Recommended referral to vascular surgery again, but patient defers and wants to wait until her ulcer heals. Cont hydrofera blue, adaptic to wound first prior to applying hydrofera blue. Add small amount of collagen hydrogel on top of adaptic. Keep intact for 1 week. Monitor for redness, pus, malodor, warmth, inc pain as well as for N/V/F/C and call or go to the ED with these. Return in 1 week with me, call with questions. Rx 4 pairs 20-30 mmHg knee-high stockings with donning device, 4 refills. She states she will go to [facility] for these. Pt to schedule appt with Dr. Barnett at his office once this ulcer heals for evaluation for possible EVLA.
--- NOTE | 2017-08-17 14:28 | PN.PCM_ITS ---
(1) Non-pressure chronic ulcer of other part of right lower leg with fat layer exposed Status: Acute Current Visit: Yes Code(s): L97.812 - Non-pressure chronic ulcer of other part of right lower leg with fat layer exposed (2) Type 2 diabetes mellitus with other circulatory complications Status: Acute Current Visit: Yes Code(s): E11.59 - Type 2 diabetes mellitus with other circulatory complications (3) Venous insufficiency (chronic) (peripheral) Status: Chronic Current Visit: Yes Code(s): I87.2 - Venous insufficiency ( chronic) (peripheral) (4) Bilateral leg edema Status: Acute Current Visit: Yes Code(s): R60.0 - Localized edema Type of Wound Date of Service: 08/17/17 Chief Complaint: Non-healing ulcer R leg History of Wound: 71 year old diabetic woman with 2-3 week history of non- healing ulcer R alex. Pt states it started as a blister and opened. She was started on PO Keflex by her PCP and she has been applying hydrogel and telfa pads. She was referred her by her PCP due to no improvment in her leg ulceration. Has never had lower extremity vascular testing. Has not had recent blood work. Non-smoker. Blood sugar well-controlled, most recent A1c almost 1 year ago however and was 7.2. Pt does have CKD as well. No hx of CHF that she is aware of. Admits to sleeping in a recliner at night. Does not wear compression on her legs. 07/27-Has been trying to keep her legs elevated. Tolerated size F spandagrip, hydrofera blue well, but dressing adhered to the ulceration today. Vascular testing scheduled for next week. Pre-albumin low, emphasized importance of adequate nutrition today. WBC, RBC, Hgb as well as other labs abnormal, will fax results to the patient's PCP so he can decide if she needs referral back to her hospice aide. 08/03--Has been trying to keep her legs elevated. Tolerated size F spandagrip, adaptic, and hydrofera blue well Vascular testing done and reveals normal [place] but venous insufficiency bilateral. Pre-albumin low, emphasized importance of adequate nutrition today. WBC, RBC, Hgb as well as other labs abnormal, will fax results to the patient's PCP so he can decide if she needs referral back to her hospice aide. I did recommend referral to a vascular surgeon for venous insufficiency, but patient defers for now and would like to wait until her ulcer heals. 08/10--Improved with adaptic, hydrofera blue, and 3M 2-layer coban wrap for edema. The wrap did fall a few inches, so it will be wrapped higher today to hopefully prevent this. Pt did return on Wednesday for a nurse visit for compression wrap change. Tolerated wrap well, and was able to keep it dry. Ulcer measuring smaller. Discussed vascular surgeon once again, and pt defers this referral until after the ulcer heals. She states she wants to see Dr. Barnett at his office after the ulcer heals. She has been elevating her legs, increasing activity, avoiding idle sitting or standing. She does not have pain, so she does not need to take anti-inflammatory medications. She has been trying to lose weight. 08/17-- Improved with adaptic, hydrofera blue, and 3M 2-layer coban wrap for edema. The 3M 2-layer coban stayed in place this week. Tolerated wrap well, and was able to keep it dry. Ulcer measuring smaller. Discussed vascular surgeon once again, and pt defers this referral until after the ulcer heals. She states she wants to see Dr. Barnett at his office after the ulcer heals. She has been elevating her legs, increasing activity, avoiding idle sitting or standing. She does not have pain, so she does not need to take anti-inflammatory medications. She has been trying to lose weight. Pt is diabetic with blood sugar 147 mg/dL this AM. Progress of Wound: improved - Physical Exam Vital Signs Temp Pulse Resp BP 98.6 F 73 18 142/75 H 08/17/17 13:44 08/17/17 13:44 08/17/17 13:44 08/17/17 13:44 General: Alert, Oriented x3, Cooperative, No apparent distress Extremities: Edema Skin: Ulcer/ Wound - R alex with no erythema, no malodor, no pus, no calor, no pain. No clinical signs of acute bacterial infection noted. See wound/edema assessment below. Wound Measurements and Assessment WC - Nurse 1 - General Ulcer Measurement Start: 07/27/17 13:13 Freq: Status: Active Protocol: Activity Type Activity Date Activity User E-Sign Co-Sign Detail Recorded Client Recorded Date Recorded By Document 08/17/17 13:44 DV [id number] 08/17/17 14:01 DV 08/17/17 13:44 Wound Center Nurse 1 [Ulcer Assessment] #1- RT LAT ALEX -Combined with other wound No -Current Size (cm) - Length 0.8 -Current Size (cm) - Width 0.3 -Current Size (cm) - Depth 0.1 -Total Square Cm 0.24 -Date of Last Picture (Recall this 08/17/17 field) -Photo Taken Yes -Epithelialization Small 1-33% -Tunneling No -Undermining/Tunneling No -Circular Undermining No -Classification - Thickness Full Thickness without Exposed Support Structure -Exudate Amt Small (1-33%) -Exudate Type Serosanguineous -Wound Margin Distinct, Outline Attached -Granulation Amt Medium (34-66%) -Granulation Quality Red -Slough/Fibrin No -Necrosis Amt None Present (0 %) -Structure Exposed None/Limited to Skin Breakdown -Texture (Cary-wound Skin Appearance) Assessed Scarring -Moisture (Cary-wound Skin Appearance Assessed ) Dry/Scaly -Color (Cary-wound Skin Appearance) No Abnormality Assessed -Temperature (Cary-wound Skin No Abnormality Appearance) (Pt Warm) -Ulcer Cleansing Wound Cleanser -Foul Odor after Cleansing No -Anesthetic Used 4% Lidocaine Solution [Edema Assessment] -Lower Limb Edema Present No -Right Calf (cm) 33.7 -Right Ankle (cm) 22.0 WC - Nurse 2 - General Ulcer CM Notes Start: 07/27/17 13:13 Freq: Status: Active Protocol: Activity Type Activity Date Activity User E-Sign Co-Sign Detail Recorded Client Recorded Date Recorded By Document 08/17/17 14:13 MW [id number] 08/17/17 14:14 MW 08/17/17 14:13 Wound Center Nurse 2 [Procedure/Treatment] #1- RT LAT ALEX -Time 14:13 -Correct Patient Yes -Correct Side, Site, Position Yes -Correct Procedure Yes -Procedure Performed Yes -Type of Procedure Debridement -Clinical Debridement Subcutaneous -Post Debridement Size (cm) - Length 0.9 -Post Debridement Size (cm) - Width 0.3 -Post Debridement Size (cm) - Depth 0.1 -Total Square Cm 0.27 -Wound/Ulcer Outcome Not Healed -Ulcer Cleansing Rinsed/ Irrigated with Saline -Foul Odor after Cleansing No -Bioengineered Tissue No -Bleeding Controlled with Pressure -Treatment Response Procedure Tolerated Well [See Physician Procedure note for Specifics] Pain Scale: 0-10 Numeric [Pain] -Is Patient Pain Free? Yes Debridement Note Post-Debridement Measurements/Treatment WC - Nurse 2 - General Ulcer CM Notes Start: 07/27/17 13:13 Freq: Status: Active Protocol: Activity Type Activity Date Activity User E-Sign Co-Sign Detail Recorded Client Recorded Date Recorded By Document 07/27/17 13:32 MW [id number] 07/27/17 13:38 MW Document 08/03/17 14:15 MW [id number] 08/03/17 14:18 MW Document 08/10/17 14:01 MW [id number] 08/10/17 14:04 MW Document 08/17/17 14:13 MW [id number] 08/17/17 14:14 MW 07/27/17 08/03/17 08/10/17 13:32 14:15 14:01 Wound Center Nurse 2 #1- RT LAT ALEX -Time 13:35 14:15 14:03 -Correct Patient Yes Yes Yes -Correct Side, Site, Position Yes Yes Yes -Correct Procedure Yes Yes Yes -Procedure Performed Yes Yes Yes -Type of Procedure Debridement Debridement Debridement -Clinical Debridement Subcutaneous Subcutaneous Subcutaneous -Post Debridement Size (cm) - Length 3.3 2.2 1.9 -Post Debridement Size (cm) - Width 2.9 1.7 0.9 -Post Debridement Size (cm) - Depth 0.1 0.1 0.1 -Total Square Cm 9.57 3.74 1.71 -Wound/Ulcer Outcome Not Healed Not Healed Not Healed -Ulcer Cleansing Rinsed/ Rinsed/ Rinsed/ Irrigated with Irrigated with Irrigated with Saline Saline Saline -Foul Odor after Cleansing No No No -Bioengineered Tissue No No No -Bleeding Controlled with Pressure Pressure Pressure -Treatment Response Procedure Procedure Procedure Tolerated Well Tolerated Well Tolerated Well Pain Scale: 0-10 Numeric Is Patient Pain Free? Yes Yes Yes 08/17/17 14:13 Wound Center Nurse 2 #1- RT LAT ALEX -Time 14:13 -Correct Patient Yes -Correct Side, Site, Position Yes -Correct Procedure Yes -Procedure Performed Yes -Type of Procedure Debridement -Clinical Debridement Subcutaneous -Post Debridement Size (cm) - Length 0.9 -Post Debridement Size (cm) - Width 0.3 -Post Debridement Size (cm) - Depth 0.1 -Total Square Cm 0.27 -Wound/Ulcer Outcome Not Healed -Ulcer Cleansing Rinsed/ Irrigated with Saline -Foul Odor after Cleansing No -Bioengineered Tissue No -Bleeding Controlled with Pressure -Treatment Response Procedure Tolerated Well Pain Scale: 0-10 Numeric Is Patient Pain Free? Yes Wound debrided: R alex Laterality: Right Wound Grade/Stage: full thickness VLU Type of Debridement: Excisional debridement Anesthesia Used: 4% Lidocaine Solution Depth: Down to and including healthy tissue, in the subcutaneous layer Percentage of wound debrided: 100 Instrument Used: 3mm curette Tissue Removed: fibrous slough Severity: Fat Layer Exposed Amount of bleeding with debridement: Mild Bleeding Controlled with: Pressure, Compression and gauze Patient tolerated procedure well Assessment/Plan Active Problems Venous insufficiency (chronic) (peripheral) (Chronic) Non-pressure chronic ulcer of other part of right lower leg with fat layer exposed (Acute) Bilateral leg edema (Acute) Type 2 diabetes mellitus with other circulatory complications (Acute) Assessment: See diagnoses Plan: SQ/excisional debridement R alex ulcer as above. Reviewed vascular testing. Discussed importance of tight blood sugar control, adequate nutrition especially increased protein intake, to promote healing. Discussed importance of edema control--recommended leg elevation above her heart while resting or sleeping, avoiding idle sitting or standing, compression of at least 20-30 mmHg , increased activity, weight management. Pt not having much pain, no need to take NSAIDs. Continue increased compression with 3M 2-layer coban wrap. Recommended referral to vascular surgery again, but patient defers and wants to wait until her ulcer heals. Cont hydrofera blue, adaptic to wound first prior to applying hydrofera blue. Add small amount of collagen hydrogel on top of adaptic. Keep intact for 1 week. Monitor for redness, pus, malodor, warmth, inc pain as well as for N/V/F/C and call or go to the ED with these. Return in 1 week with me, call with questions. Rx 4 pairs 20-30 mmHg knee-high stockings with donning device, 4 refills. She states she will go to [facility] for these. Pt to schedule appt with Dr. Barnett at his office once this ulcer heals for evaluation for possible EVLA.
[2017-08-18 12:21] VITALS: BP 158/82; PULSE 73; RESP 16; TEMP 35.9
== END 2017-08-18 23:59 ==
LOC: WC 14:00
PROVIDERS: Family Provider Family Medicine; PCP Family Medicine; Visit Provider Podiatrist Foot & Ankle Surgery
DX: E11.622 Type 2 diabetes mellitus with other skin ulcer (principal); E11.51 Type 2 diabetes mellitus with diabetic peripheral angiopathy without gangrene; R60.0 Localized edema; L97.812 Non-pressure chronic ulcer of other part of right lower leg with fat layer exposed; Z86.73 Personal history of transient ischemic attack (TIA), and cerebral infarction without residual deficits; Z85.3 Personal history of malignant neoplasm of breast; I12.9 Hypertensive chronic kidney disease with stage 1 through stage 4 chronic kidney disease, or unspecified chronic kidney disease; N18.9 Chronic kidney disease, unspecified

== ENCOUNTER 2017-09-17 12:15 | Outpatient (RCR) | payer MEDICARE, SELFPAY ==
[2017-08-19 01:04] VITALS: BP 160/59; PULSE 73; RESP 16; TEMP 35.9
[2017-08-24 13:21] VITALS: BP 150/70; PULSE 76; RESP 18; TEMP 36.4
--- NOTE | 2017-08-24 14:26 | PCM.WC.PN ---
(1) Non-pressure chronic ulcer of other part of right lower leg with fat layer exposed Status: Acute Current Visit: Yes Code(s): L97.812 - Non-pressure chronic ulcer of other part of right lower leg with fat layer exposed (2) Type 2 diabetes mellitus with other circulatory complications Status: Chronic Current Visit: Yes Code(s): E11.59 - Type 2 diabetes mellitus with other circulatory complications (3) Venous insufficiency (chronic) (peripheral) Status: Chronic Current Visit: Yes Code(s): I87.2 - Venous insufficiency (chronic) (peripheral) (4) Bilateral leg edema Status: Chronic Current Visit: Yes Code(s): R60.0 - Localized edema Type of Wound Date of Service: 08/24/17 Chief Complaint: Non-healing ulcer R leg History of Wound: 71 year old diabetic woman with 2-3 week history of non-healing ulcer R alex. Pt states it started as a blister and opened. She was started on PO Keflex by her PCP and she has been applying hydrogel and telfa pads. She was referred her by her PCP due to no improvment in her leg ulceration. Has never had lower extremity vascular testing. Has not had recent blood work. Non-smoker. Blood sugar well-controlled, most recent A1c almost 1 year ago however and was 7.2. Pt does have CKD as well. No hx of CHF that she is aware of. Admits to sleeping in a recliner at night. Does not wear compression on her legs. 07/27-Has been trying to keep her legs elevated. Tolerated size F spandagrip, hydrofera blue well, but dressing adhered to the ulceration today. Vascular testing scheduled for next week. Pre-albumin low, emphasized importance of adequate nutrition today. 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 08/03--Has been trying to keep her legs elevated. Tolerated size F spandagrip, adaptic, and hydrofera blue well Vascular testing done and reveals normal B[place] but venous insufficiency bilateral. Pre-albumin low, emphasized importance of adequate nutrition today. 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 I did recommend referral to a vascular surgeon for venous insufficiency, but patient defers for now and would like to wait until her ulcer heals. 08/10--Improved with adaptic, hydrofera blue, and 3M 2-layer coban wrap for edema. The wrap did fall a few inches, so it will be wrapped higher today to hopefully prevent this. Pt did return on Wednesday for a nurse visit for compression wrap change. Tolerated wrap well, and was able to keep it dry. Ulcer measuring smaller. Discussed vascular surgeon once again, and pt defers this referral until after the ulcer heals. She states she wants to see Dr. Barnett at his office after the ulcer heals. She has been elevating her legs, increasing activity, avoiding idle sitting or standing. She does not have pain, so she does not need to take anti-inflammatory medications. She has been trying to lose weight. 08/17--Improved with adaptic, hydrofera blue, and 3M 2-layer coban wrap for edema. The 3M 2-layer coban stayed in place this week. Tolerated wrap well, and was able to keep it dry. Ulcer measuring smaller. Discussed vascular surgeon once again, and pt defers this referral until after the ulcer heals. She states she wants to see Dr. Barnett at his office after the ulcer heals. She has been elevating her legs, increasing activity, avoiding idle sitting or standing. She does not have pain, so she does not need to take anti-inflammatory medications. She has been trying to lose weight. Pt is diabetic with blood sugar 147 mg/dL this AM. 08/24--Improved with adaptic, hydrofera blue, and 3M 2-layer coban wrap for edema. The 3M 2-layer coban stayed in place this week. Tolerated wrap well, and was able to keep it dry. Ulcer measuring smaller, now almost healed. Pt now states she does not want to see a vascular surgeon. She has been elevating her legs, increasing activity, avoiding idle sitting or standing. She does not have pain, so she does not need to take anti-inflammatory medications. She has been trying to lose weight. Pt is diabetic with blood sugar 129 mg/dL this AM. Progress of Wound: improved - Physical Exam Vital Signs Temp Pulse Resp BP 97.5 F L 76 18 150/70 H 08/24/17 13:21 08/24/17 13:21 08/24/17 13:21 08/24/17 13:21 General: Alert, Oriented x3, Cooperative, No apparent distress Skin: Ulcer/ Wound - R alex with no erythema, no malodor, no pus, no pain, no calor. No clinical signs of acute bacterial infection noted. See wound/edema assessment below. Ulcer almost healed. Wound Measurements and Assessment WC - Nurse 1 - General Ulcer Measurement Start: 08/24/17 13:20 Freq: Status: Active Protocol: Activity Type Activity Date Activity User E-Sign Co-Sign Detail Recorded Client Recorded Date Recorded By Document 08/24/17 13:21 DL [id number] 08/24/17 13:29 DL 08/24/17 13:21 Wound Center Nurse 1 [Ulcer Assessment] #1- RT LAT ALEX -Current Size (cm) - Length 0.8 -Current Size (cm) - Width 0.4 -Current Size (cm) - Depth 0.1 -Total Square Cm 0.32 -Photo Taken No -Exudate Amt Small (1-33%) -Exudate Type Serosanguineous -Wound Margin Flat & Intact -Granulation Amt Large (67-100%) -Granulation Quality [place] Red -Necrosis Amt None Present (0 %) -Structure Exposed N/A -Texture (Cary-wound Skin Appearance) Scarring -Moisture (Cary-wound Skin Appearance Dry/Scaly ) -Color (Cary-wound Skin Appearance) No Abnormality -Temperature (Cary-wound Skin No Abnormality Appearance) (Pt Warm) -Ulcer Cleansing Wound Cleanser -Foul Odor after Cleansing No -Anesthetic Used 4% Lidocaine Solution [Edema Assessment] -Right Calf (cm) 36.5 -Right Ankle (cm) 21 WC - Nurse 2 - General Ulcer CM Notes Start: 08/24/17 13:20 Freq: Status: Active Protocol: Activity Type Activity Date Activity User E-Sign Co-Sign Detail Recorded Client Recorded Date Recorded By Document 08/24/17 13:49 MW [id number] 08/24/17 13:51 MW 08/24/17 13:49 Wound Center Nurse 2 [Procedure/Treatment] #1- RT LAT ALEX -Time 13:50 -Correct Patient Yes -Correct Side, Site, Position Yes -Correct Procedure Yes -Procedure Performed No -Post Debridement Size (cm) - Length 0.8 -Post Debridement Size (cm) - Width 0.4 -Post Debridement Size (cm) - Depth 0.1 -Total Square Cm 0.32 -Wound/Ulcer Outcome Not Healed -Ulcer Cleansing Rinsed/ Irrigated with Saline -Foul Odor after Cleansing No -Bioengineered Tissue No -Bleeding Controlled with NA -Treatment Response Procedure Tolerated Well [See Physician Procedure note for Specifics] Pain Scale: 0-10 Numeric [Pain] -Is Patient Pain Free? Yes Debridement Note Post-Debridement Measurements/Treatment WC - Nurse 2 - General Ulcer CM Notes Start: 08/24/17 13:20 Freq: Status: Active Protocol: Activity Type Activity Date Activity User E-Sign Co-Sign Detail Recorded Client Recorded Date Recorded By Document 08/24/17 13:49 MW [id number] 08/24/17 13:51 MW 08/24/17 13:49 Wound Center Nurse 2 #1- RT LAT ALEX -Time 13:50 -Correct Patient Yes -Correct Side, Site, Position Yes -Correct Procedure Yes -Procedure Performed No -Post Debridement Size (cm) - Length 0.8 -Post Debridement Size (cm) - Width 0.4 -Post Debridement Size (cm) - Depth 0.1 -Total Square Cm 0.32 -Wound/Ulcer Outcome Not Healed -Ulcer Cleansing Rinsed/ Irrigated with Saline -Foul Odor after Cleansing No -Bioengineered Tissue No -Bleeding Controlled with NA -Treatment Response Procedure Tolerated Well Pain Scale: 0-10 Numeric Is Patient Pain Free? Yes No debridement was completed today - almost healed Assessment/Plan Active Problems Venous insufficiency (chronic) (peripheral) (Chronic) Non-pressure chronic ulcer of other part of right lower leg with fat layer exposed (Acute) Bilateral leg edema (Chronic) 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) Assessment: See diagnoses Plan: Exam. A total of 25 minutes was spent [id number] with the patient, and over half of that time was spent on counsling, coordination of care, and discussing her diagnoses. Reviewed vascular testing. Discussed importance of tight blood sugar control, adequate nutrition especially increased protein intake, to promote healing. Discussed importance of edema control--recommended leg elevation above her heart while resting or sleeping, avoiding idle sitting or standing, compression of at least 20-30 mmHg, increased activity, weight management. Pt not having much pain, no need to take NSAIDs. Continue increased compression, switch to Unna boot. Recommended referral to vascular surgery again, but patient no longer wants to see a vascular surgeon and wants to control her leg edema with compression stockings. Advised pt that stockings need replaced every 3 months -- she can also purchase 4 pairs, and rotate them, and these will last for 1 year. Stop hydrofera blue, adaptic. Return in 3 days for Unna boot change. Monitor for redness, pus, malodor, warmth, inc pain as well as for N/V/F/C and call or go to the ED with these. Return in 1 week with me, call with questions. Last visit, Rx 4 pairs 20-30 mmHg knee-high stockings with donning device, 4 refills. She states she will go to [facility] or [facility] for these.
--- NOTE | 2017-08-24 14:38 | PN.PCM_ITS ---
(1) Non-pressure chronic ulcer of other part of right lower leg with fat layer exposed Status: Acute Current Visit: Yes Code(s): L97.812 - Non-pressure chronic ulcer of other part of right lower leg with fat layer exposed (2) Type 2 diabetes mellitus with other circulatory complications Status: Chronic Current Visit: Yes Code(s): E11.59 - Type 2 diabetes mellitus with other circulatory complications (3) Venous insufficiency (chronic) (peripheral) Status: Chronic Current Visit: Yes Code(s): I87.2 - Venous insufficiency ( chronic) (peripheral) (4) Bilateral leg edema Status: Chronic Current Visit: Yes Code(s): R60.0 - Localized edema Type of Wound Date of Service: 08/24/17 Chief Complaint: Non-healing ulcer R leg History of Wound: 71 year old diabetic woman with 2-3 week history of non- healing ulcer R alex. Pt states it started as a blister and opened. She was started on PO Keflex by her PCP and she has been applying hydrogel and telfa pads. She was referred her by her PCP due to no improvment in her leg ulceration. Has never had lower extremity vascular testing. Has not had recent blood work. Non-smoker. Blood sugar well-controlled, most recent A1c almost 1 year ago however and was 7.2. Pt does have CKD as well. No hx of CHF that she is aware of. Admits to sleeping in a recliner at night. Does not wear compression on her legs. 07/27-Has been trying to keep her legs elevated. Tolerated size F spandagrip, hydrofera blue well, but dressing adhered to the ulceration today. Vascular testing scheduled for next week. Pre-albumin low, emphasized importance of adequate nutrition today. 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 08/03--Has been trying to keep her legs elevated. Tolerated size F spandagrip, adaptic, and hydrofera blue well Vascular testing done and reveals normal [place] but venous insufficiency bilateral. Pre-albumin low, emphasized importance of adequate nutrition today. 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 I did recommend referral to a vascular surgeon for venous insufficiency, but patient defers for now and would like to wait until her ulcer heals. 08/10--Improved with adaptic, hydrofera blue, and 3M 2-layer coban wrap for edema. The wrap did fall a few inches, so it will be wrapped higher today to hopefully prevent this. Pt did return on Wednesday for a nurse visit for compression wrap change. Tolerated wrap well, and was able to keep it dry. Ulcer measuring smaller. Discussed vascular surgeon once again, and pt defers this referral until after the ulcer heals. She states she wants to see Dr. Barnett at his office after the ulcer heals. She has been elevating her legs, increasing activity, avoiding idle sitting or standing. She does not have pain, so she does not need to take anti-inflammatory medications. She has been trying to lose weight. 08/17-- Improved with adaptic, hydrofera blue, and 3M 2-layer coban wrap for edema. The 3M 2-layer coban stayed in place this week. Tolerated wrap well, and was able to keep it dry. Ulcer measuring smaller. Discussed vascular surgeon once again, and pt defers this referral until after the ulcer heals. She states she wants to see Dr. Barnett at his office after the ulcer heals. She has been elevating her legs, increasing activity, avoiding idle sitting or standing. She does not have pain, so she does not need to take anti-inflammatory medications. She has been trying to lose weight. Pt is diabetic with blood sugar 147 mg/dL this AM. 08/24--Improved with adaptic, hydrofera blue, and 3M 2- layer coban wrap for edema. The 3M 2-layer coban stayed in place this week. Tolerated wrap well, and was able to keep it dry. Ulcer measuring smaller, now almost healed. Pt now states she does not want to see a vascular surgeon. She has been elevating her legs, increasing activity, avoiding idle sitting or standing. She does not have pain, so she does not need to take anti- inflammatory medications. She has been trying to lose weight. Pt is diabetic with blood sugar 129 mg/dL this AM. Progress of Wound: improved - Physical Exam Vital Signs Temp Pulse Resp BP 97.5 F L 76 18 150/70 H 08/24/17 13:21 08/24/17 13:21 08/24/17 13:21 08/24/17 13:21 General: Alert, Oriented x3, Cooperative, No apparent distress Skin: Ulcer/ Wound - R alex with no erythema, no malodor, no pus, no pain, no calor. No clinical signs of acute bacterial infection noted. See wound/edema assessment below. Ulcer almost healed. Wound Measurements and Assessment WC - Nurse 1 - General Ulcer Measurement Start: 08/24/17 13:20 Freq: Status: Active Protocol: Activity Type Activity Date Activity User E-Sign Co-Sign Detail Recorded Client Recorded Date Recorded By Document 08/24/17 13:21 DL [id number] 08/24/17 13:29 DL 08/24/17 13:21 Wound Center Nurse 1 [Ulcer Assessment] #1- RT LAT ALEX -Current Size (cm) - Length 0.8 -Current Size (cm) - Width 0.4 -Current Size (cm) - Depth 0.1 -Total Square Cm 0.32 -Photo Taken No -Exudate Amt Small (1-33%) -Exudate Type Serosanguineous -Wound Margin Flat & Intact -Granulation Amt Large (67-100%) -Granulation Quality [place] Red -Necrosis Amt None Present (0 %) -Structure Exposed N/A -Texture (Cary-wound Skin Appearance) Scarring -Moisture (Cary-wound Skin Appearance Dry/Scaly ) -Color (Cary-wound Skin Appearance) No Abnormality -Temperature (Cary-wound Skin No Abnormality Appearance) (Pt Warm) -Ulcer Cleansing Wound Cleanser -Foul Odor after Cleansing No -Anesthetic Used 4% Lidocaine Solution [Edema Assessment] -Right Calf (cm) 36.5 -Right Ankle (cm) 21 WC - Nurse 2 - General Ulcer CM Notes Start: 08/24/17 13:20 Freq: Status: Active Protocol: Activity Type Activity Date Activity User E-Sign Co-Sign Detail Recorded Client Recorded Date Recorded By Document 08/24/17 13:49 MW [id number] 08/24/17 13:51 MW 08/24/17 13:49 Wound Center Nurse 2 [Procedure/Treatment] #1- RT LAT ALEX -Time 13:50 -Correct Patient Yes -Correct Side, Site, Position Yes -Correct Procedure Yes -Procedure Performed No -Post Debridement Size (cm) - Length 0.8 -Post Debridement Size (cm) - Width 0.4 -Post Debridement Size (cm) - Depth 0.1 -Total Square Cm 0.32 -Wound/Ulcer Outcome Not Healed -Ulcer Cleansing Rinsed/ Irrigated with Saline -Foul Odor after Cleansing No -Bioengineered Tissue No -Bleeding Controlled with NA -Treatment Response Procedure Tolerated Well [See Physician Procedure note for Specifics] Pain Scale: 0-10 Numeric [Pain] -Is Patient Pain Free? Yes Debridement Note Post-Debridement Measurements/Treatment WC - Nurse 2 - General Ulcer CM Notes Start: 08/24/17 13:20 Freq: Status: Active Protocol: Activity Type Activity Date Activity User E-Sign Co-Sign Detail Recorded Client Recorded Date Recorded By Document 08/24/17 13:49 MW [id number] 08/24/17 13:51 MW 08/24/17 13:49 Wound Center Nurse 2 #1- RT LAT ALEX -Time 13:50 -Correct Patient Yes -Correct Side, Site, Position Yes -Correct Procedure Yes -Procedure Performed No -Post Debridement Size (cm) - Length 0.8 -Post Debridement Size (cm) - Width 0.4 -Post Debridement Size (cm) - Depth 0.1 -Total Square Cm 0.32 -Wound/Ulcer Outcome Not Healed -Ulcer Cleansing Rinsed/ Irrigated with Saline -Foul Odor after Cleansing No -Bioengineered Tissue No -Bleeding Controlled with NA -Treatment Response Procedure Tolerated Well Pain Scale: 0-10 Numeric Is Patient Pain Free? Yes No debridement was completed today - almost healed Assessment/Plan Active Problems Venous insufficiency (chronic) (peripheral) (Chronic) Non-pressure chronic ulcer of other part of right lower leg with fat layer exposed (Acute) Bilateral leg edema (Chronic) 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) Assessment: See diagnoses Plan: Exam. A total of 25 minutes was spent [id number] with the patient, and over half of that time was spent on counsling, coordination of care, and discussing her diagnoses. Reviewed vascular testing. Discussed importance of tight blood sugar control, adequate nutrition especially increased protein intake, to promote healing. Discussed importance of edema control--recommended leg elevation above her heart while resting or sleeping, avoiding idle sitting or standing, compression of at least 20-30 mmHg, increased activity, weight management. Pt not having much pain, no need to take NSAIDs. Continue increased compression, switch to Unna boot. Recommended referral to vascular surgery again, but patient no longer wants to see a vascular surgeon and wants to control her leg edema with compression stockings. Advised pt that stockings need replaced every 3 months -- she can also purchase 4 pairs, and rotate them, and these will last for 1 year. Stop hydrofera blue, adaptic. Return in 3 days for Unna boot change. Monitor for redness, pus, malodor, warmth, inc pain as well as for N/V/F/C and call or go to the ED with these. Return in 1 week with me, call with questions. Last visit, Rx 4 pairs 20-30 mmHg knee-high stockings with donning device, 4 refills. She states she will go to [facility] or [facility] for these.
[2017-08-27 13:34] VITALS: BP 147/74; PULSE 78; RESP 16; TEMP 37.3
[2017-08-31 13:21] VITALS: BP 188/72; PULSE 92; RESP 18; TEMP 36.7
--- NOTE | 2017-08-31 16:25 | PCM.WC.PN ---
(1) Non-pressure chronic ulcer of other part of right lower leg with fat layer exposed Status: Acute Current Visit: Yes Code(s): L97.812 - Non-pressure chronic ulcer of other part of right lower leg with fat layer exposed (2) Type 2 diabetes mellitus with other circulatory complications Status: Chronic Current Visit: Yes Code(s): E11.59 - Type 2 diabetes mellitus with other circulatory complications (3) Venous insufficiency (chronic) (peripheral) Status: Chronic Current Visit: Yes Code(s): I87.2 - Venous insufficiency (chronic) (peripheral) (4) Bilateral leg edema Status: Chronic Current Visit: Yes Code(s): R60.0 - Localized edema Type of Wound Date of Service: 08/31/17 Chief Complaint: Non-healing ulcer R leg History of Wound: 71 year old diabetic woman with 2-3 week history of non-healing ulcer R alex. Pt states it started as a blister and opened. She was started on PO Keflex by her PCP and she has been applying hydrogel and telfa pads. She was referred her by her PCP due to no improvment in her leg ulceration. Has never had lower extremity vascular testing. Has not had recent blood work. Non-smoker. Blood sugar well-controlled, most recent A1c almost 1 year ago however and was 7.2. Pt does have CKD as well. No hx of CHF that she is aware of. Admits to sleeping in a recliner at night. Does not wear compression on her legs. 07/27-Has been trying to keep her legs elevated. Tolerated size F spandagrip, hydrofera blue well, but dressing adhered to the ulceration today. Vascular testing scheduled for next week. Pre-albumin low, emphasized importance of adequate nutrition today. WBC, RBC, Hgb as well as other labs abnormal, will fax results to the patient's PCP so he can decide if she needs referral back to her furniture and bedding inspector. 08/03--Has been trying to keep her legs elevated. Tolerated size F spandagrip, adaptic, and hydrofera blue well Vascular testing done and reveals normal BARTOLO but venous insufficiency bilateral. Pre-albumin low, emphasized importance of adequate nutrition today. WBC, RBC, Hgb as well as other labs abnormal, will fax results to the patient's PCP so he can decide if she needs referral back to her furniture and bedding inspector. I did recommend referral to a vascular surgeon for venous insufficiency, but patient defers for now and would like to wait until her ulcer heals. 08/10--Improved with adaptic, hydrofera blue, and 3M 2-layer coban wrap for edema. The wrap did fall a few inches, so it will be wrapped higher today to hopefully prevent this. Pt did return on Wednesday for a nurse visit for compression wrap change. Tolerated wrap well, and was able to keep it dry. Ulcer measuring smaller. Discussed vascular surgeon once again, and pt defers this referral until after the ulcer heals. She states she wants to see Dr. Barnett at his office after the ulcer heals. She has been elevating her legs, increasing activity, avoiding idle sitting or standing. She does not have pain, so she does not need to take anti-inflammatory medications. She has been trying to lose weight. 08/17--Improved with adaptic, hydrofera blue, and 3M 2-layer coban wrap for edema. The 3M 2-layer coban stayed in place this week. Tolerated wrap well, and was able to keep it dry. Ulcer measuring smaller. Discussed vascular surgeon once again, and pt defers this referral until after the ulcer heals. She states she wants to see Dr. Barnett at his office after the ulcer heals. She has been elevating her legs, increasing activity, avoiding idle sitting or standing. She does not have pain, so she does not need to take anti-inflammatory medications. She has been trying to lose weight. Pt is diabetic with blood sugar 147 mg/dL this AM. 08/24--Improved with adaptic, hydrofera blue, and 3M 2-layer coban wrap for edema. The 3M 2-layer coban stayed in place this week. Tolerated wrap well, and was able to keep it dry. Ulcer measuring smaller, now almost healed. Pt now states she does not want to see a vascular surgeon. She has been elevating her legs, increasing activity, avoiding idle sitting or standing. She does not have pain, so she does not need to take anti-inflammatory medications. She has been trying to lose weight. Pt is diabetic with blood sugar 129 mg/dL this AM. 08/31--Healed with adaptic, hydrofera blue, and 3M 2-layer coban wrap for edema. The 3M 2-layer coban stayed in place this week. Tolerated wrap well, and was able to keep it dry. Ulcer measuring smaller, now almost healed. Pt now states she does not want to see a vascular surgeon. She has been elevating her legs, increasing activity, avoiding idle sitting or standing. She does not have pain, so she does not need to take anti-inflammatory medications. She has been trying to lose weight. Pt is diabetic with blood sugar 133 mg/dL this AM. Now has LLE swelling. Progress of Wound: R leg ulcer healed, has edema of LLE. - Physical Exam Vital Signs Temp Pulse Resp BP 98.0 F 92 18 188/72 H 08/31/17 13:21 08/31/17 13:21 08/31/17 13:21 08/31/17 13:21 General: Alert, Oriented x3, Cooperative, No apparent distress Extremities: Edema - LLE Skin: Ulcer/ Wound - RLE ulcer healed. Wound Measurements and Assessment WC - Nurse 1 - General Ulcer Measurement Start: 08/24/17 13:20 Freq: Status: Active Protocol: Activity Type Activity Date Activity User E-Sign Co-Sign Detail Recorded Client Recorded Date Recorded By Document 08/31/17 13:21 BMF [id number] 08/31/17 13:28 BMF 08/31/17 13:21 Wound Center Nurse 1 [Ulcer Assessment] #1- RT LAT ALEX -Combined with other wound No -Current Size (cm) - Length 0 -Current Size (cm) - Width 0 -Current Size (cm) - Depth 0 -Total Square Cm 0 -Date of Last Picture (Recall this 08/31/17 field) -Photo Taken Yes -Epithelialization Large 67-100% -Tunneling No -Undermining/Tunneling No -Circular Undermining No [Edema Assessment] -Lower Limb Edema Present No -Right Calf (cm) 38.7 -Right Ankle (cm) 22.4 WC - Nurse 2 - General Ulcer CM Notes Start: 08/24/17 13:20 Freq: Status: Active Protocol: Activity Type Activity Date Activity User E-Sign Co-Sign Detail Recorded Client Recorded Date Recorded By Document 08/31/17 13:51 MW [id number] 08/31/17 13:55 MW 08/31/17 13:51 Wound Center Nurse 2 [Procedure/Treatment] #1- RT LAT ALEX -Time 13:52 -Correct Patient Yes -Correct Side, Site, Position Yes -Correct Procedure Yes -Procedure Performed No -Post Debridement Size (cm) - Length 0 -Post Debridement Size (cm) - Width 0 -Post Debridement Size (cm) - Depth 0 -Total Square Cm 0 -Wound/Ulcer Outcome Healed- Epithelialized -Ulcer Cleansing Rinsed/ Irrigated with Saline -Foul Odor after Cleansing No -Bioengineered Tissue No -Bleeding Controlled with NA -Treatment Response Procedure Tolerated Well [See Physician Procedure note for Specifics] Pain Scale: 0-10 Numeric [Pain] -Is Patient Pain Free? Yes Debridement Note Post-Debridement Measurements/Treatment WC - Nurse 2 - General Ulcer CM Notes Start: 08/24/17 13:20 Freq: Status: Active Protocol: Activity Type Activity Date Activity User E-Sign Co-Sign Detail Recorded Client Recorded Date Recorded By Document 08/24/17 13:49 MW [id number] 08/24/17 13:51 MW Document 08/31/17 13:51 MW [id number] 08/31/17 13:55 MW 08/24/17 08/31/17 13:49 13:51 Wound Center Nurse 2 #1- RT LAT ALEX -Time 13:50 13:52 -Correct Patient Yes Yes -Correct Side, Site, Position Yes Yes -Correct Procedure Yes Yes -Procedure Performed No No -Post Debridement Size (cm) - Length 0.8 0 -Post Debridement Size (cm) - Width 0.4 0 -Post Debridement Size (cm) - Depth 0.1 0 -Total Square Cm 0.32 0 -Wound/Ulcer Outcome Not Healed Healed- Epithelialized -Ulcer Cleansing Rinsed/ Rinsed/ Irrigated with Irrigated with Saline Saline -Foul Odor after Cleansing No No -Bioengineered Tissue No No -Bleeding Controlled with NA NA -Treatment Response Procedure Procedure Tolerated Well Tolerated Well Pain Scale: 0-10 Numeric Is Patient Pain Free? Yes Yes No debridement was completed today Assessment/Plan Active Problems Venous insufficiency (chronic) (peripheral) (Chronic) Non-pressure chronic ulcer of other part of right lower leg with fat layer exposed (Acute) Bilateral leg edema (Chronic) 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) Assessment: See diagnoses Plan: Exam. A total of 25 minutes was spent [id number] with the patient, and over half of that time was spent on counsling, coordination of care, and discussing her diagnoses. Reviewed vascular testing. Discussed importance of tight blood sugar control, adequate nutrition especially increased protein intake, to promote healing. Discussed importance of edema control--recommended leg elevation above her heart while resting or sleeping, avoiding idle sitting or standing, compression of at least 20-30 mmHg, increased activity, weight management. Pt not having much pain, no need to take NSAIDs. Continue increased compression, switch to Unna boot. Recommended referral to vascular surgery again, but patient no longer wants to see a vascular surgeon and wants to control her leg edema with compression stockings. Advised pt that stockings need replaced every 3 months -- she can also purchase 4 pairs, and rotate them, and these will last for 1 year. Stop hydrofera blue, adaptic. Monitor for redness, pus, malodor, warmth, inc pain as well as for N/V/F/C and call or go to the ED with these. Return in 1 week with me, call with questions. Rx given previously 4 pairs 20-30 mmHg knee-high stockings with donning device, 4 refills. No open wounds, but pt has edema of LLE. Apply 3M 2-layer coban wrap to LLE.
--- NOTE | 2017-08-31 16:35 | PN.PCM_ITS ---
(1) Non-pressure chronic ulcer of other part of right lower leg with fat layer exposed Status: Acute Current Visit: Yes Code(s): L97.812 - Non-pressure chronic ulcer of other part of right lower leg with fat layer exposed (2) Type 2 diabetes mellitus with other circulatory complications Status: Chronic Current Visit: Yes Code(s): E11.59 - Type 2 diabetes mellitus with other circulatory complications (3) Venous insufficiency (chronic) (peripheral) Status: Chronic Current Visit: Yes Code(s): I87.2 - Venous insufficiency ( chronic) (peripheral) (4) Bilateral leg edema Status: Chronic Current Visit: Yes Code(s): R60.0 - Localized edema Type of Wound Date of Service: 08/31/17 Chief Complaint: Non-healing ulcer R leg History of Wound: 71 year old diabetic woman with 2-3 week history of non- healing ulcer R alex. Pt states it started as a blister and opened. She was started on PO Keflex by her PCP and she has been applying hydrogel and telfa pads. She was referred her by her PCP due to no improvment in her leg ulceration. Has never had lower extremity vascular testing. Has not had recent blood work. Non-smoker. Blood sugar well-controlled, most recent A1c almost 1 year ago however and was 7.2. Pt does have CKD as well. No hx of CHF that she is aware of. Admits to sleeping in a recliner at night. Does not wear compression on her legs. 07/27-Has been trying to keep her legs elevated. Tolerated size F spandagrip, hydrofera blue well, but dressing adhered to the ulceration today. Vascular testing scheduled for next week. Pre-albumin low, emphasized importance of adequate nutrition today. WBC, RBC, Hgb as well as other labs abnormal, will fax results to the patient's PCP so he can decide if she needs referral back to her telehealth nurse educator. 08/03--Has been trying to keep her legs elevated. Tolerated size F spandagrip, adaptic, and hydrofera blue well Vascular testing done and reveals normal [place] but venous insufficiency bilateral. Pre-albumin low, emphasized importance of adequate nutrition today. WBC, RBC, Hgb as well as other labs abnormal, will fax results to the patient's PCP so he can decide if she needs referral back to her telehealth nurse educator. I did recommend referral to a vascular surgeon for venous insufficiency, but patient defers for now and would like to wait until her ulcer heals. 08/10--Improved with adaptic, hydrofera blue, and 3M 2-layer coban wrap for edema. The wrap did fall a few inches, so it will be wrapped higher today to hopefully prevent this. Pt did return on Wednesday for a nurse visit for compression wrap change. Tolerated wrap well, and was able to keep it dry. Ulcer measuring smaller. Discussed vascular surgeon once again, and pt defers this referral until after the ulcer heals. She states she wants to see Dr. Barnett at his office after the ulcer heals. She has been elevating her legs, increasing activity, avoiding idle sitting or standing. She does not have pain, so she does not need to take anti-inflammatory medications. She has been trying to lose weight. 08/17-- Improved with adaptic, hydrofera blue, and 3M 2-layer coban wrap for edema. The 3M 2-layer coban stayed in place this week. Tolerated wrap well, and was able to keep it dry. Ulcer measuring smaller. Discussed vascular surgeon once again, and pt defers this referral until after the ulcer heals. She states she wants to see Dr. Barnett at his office after the ulcer heals. She has been elevating her legs, increasing activity, avoiding idle sitting or standing. She does not have pain, so she does not need to take anti-inflammatory medications. She has been trying to lose weight. Pt is diabetic with blood sugar 147 mg/dL this AM. 08/24--Improved with adaptic, hydrofera blue, and 3M 2- layer coban wrap for edema. The 3M 2-layer coban stayed in place this week. Tolerated wrap well, and was able to keep it dry. Ulcer measuring smaller, now almost healed. Pt now states she does not want to see a vascular surgeon. She has been elevating her legs, increasing activity, avoiding idle sitting or standing. She does not have pain, so she does not need to take anti- inflammatory medications. She has been trying to lose weight. Pt is diabetic with blood sugar 129 mg/dL this AM. 08/31--Healed with adaptic, hydrofera blue, and 3M 2-layer coban wrap for edema. The 3M 2-layer coban stayed in place this week. Tolerated wrap well, and was able to keep it dry. Ulcer measuring smaller, now almost healed. Pt now states she does not want to see a vascular surgeon. She has been elevating her legs, increasing activity, avoiding idle sitting or standing. She does not have pain, so she does not need to take anti- inflammatory medications. She has been trying to lose weight. Pt is diabetic with blood sugar 133 mg/dL this AM. Now has LLE swelling. Progress of Wound: R leg ulcer healed, has edema of LLE. - Physical Exam Vital Signs Temp Pulse Resp BP 98.0 F 92 18 188/72 H 08/31/17 13:21 08/31/17 13:21 08/31/17 13:21 08/31/17 13:21 General: Alert, Oriented x3, Cooperative, No apparent distress Extremities: Edema - LLE Skin: Ulcer/ Wound - RLE ulcer healed. Wound Measurements and Assessment WC - Nurse 1 - General Ulcer Measurement Start: 08/24/17 13:20 Freq: Status: Active Protocol: Activity Type Activity Date Activity User E-Sign Co-Sign Detail Recorded Client Recorded Date Recorded By Document 08/31/17 13:21 BMF [id number] 08/31/17 13:28 BMF 08/31/17 13:21 Wound Center Nurse 1 [Ulcer Assessment] #1- RT LAT ALEX -Combined with other wound No -Current Size (cm) - Length 0 -Current Size (cm) - Width 0 -Current Size (cm) - Depth 0 -Total Square Cm 0 -Date of Last Picture (Recall this 08/31/17 field) -Photo Taken Yes -Epithelialization Large 67-100% -Tunneling No -Undermining/Tunneling No -Circular Undermining No [Edema Assessment] -Lower Limb Edema Present No -Right Calf (cm) 38.7 -Right Ankle (cm) 22.4 WC - Nurse 2 - General Ulcer CM Notes Start: 08/24/17 13:20 Freq: Status: Active Protocol: Activity Type Activity Date Activity User E-Sign Co-Sign Detail Recorded Client Recorded Date Recorded By Document 08/31/17 13:51 MW [id number] 08/31/17 13:55 MW 08/31/17 13:51 Wound Center Nurse 2 [Procedure/Treatment] #1- RT LAT ALEX -Time 13:52 -Correct Patient Yes -Correct Side, Site, Position Yes -Correct Procedure Yes -Procedure Performed No -Post Debridement Size (cm) - Length 0 -Post Debridement Size (cm) - Width 0 -Post Debridement Size (cm) - Depth 0 -Total Square Cm 0 -Wound/Ulcer Outcome Healed- Epithelialized -Ulcer Cleansing Rinsed/ Irrigated with Saline -Foul Odor after Cleansing No -Bioengineered Tissue No -Bleeding Controlled with NA -Treatment Response Procedure Tolerated Well [See Physician Procedure note for Specifics] Pain Scale: 0-10 Numeric [Pain] -Is Patient Pain Free? Yes Debridement Note Post-Debridement Measurements/Treatment WC - Nurse 2 - General Ulcer CM Notes Start: 08/24/17 13:20 Freq: Status: Active Protocol: Activity Type Activity Date Activity User E-Sign Co-Sign Detail Recorded Client Recorded Date Recorded By Document 08/24/17 13:49 MW [id number] 08/24/17 13:51 MW Document 08/31/17 13:51 MW [id number] 08/31/17 13:55 MW 08/24/17 08/31/17 13:49 13:51 Wound Center Nurse 2 #1- RT LAT ALEX -Time 13:50 13:52 -Correct Patient Yes Yes -Correct Side, Site, Position Yes Yes -Correct Procedure Yes Yes -Procedure Performed No No -Post Debridement Size (cm) - Length 0.8 0 -Post Debridement Size (cm) - Width 0.4 0 -Post Debridement Size (cm) - Depth 0.1 0 -Total Square Cm 0.32 0 -Wound/Ulcer Outcome Not Healed Healed- Epithelialized -Ulcer Cleansing Rinsed/ Rinsed/ Irrigated with Irrigated with Saline Saline -Foul Odor after Cleansing No No -Bioengineered Tissue No No -Bleeding Controlled with NA NA -Treatment Response Procedure Procedure Tolerated Well Tolerated Well Pain Scale: 0-10 Numeric Is Patient Pain Free? Yes Yes No debridement was completed today Assessment/Plan Active Problems Venous insufficiency (chronic) (peripheral) (Chronic) Non-pressure chronic ulcer of other part of right lower leg with fat layer exposed (Acute) Bilateral leg edema (Chronic) 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) Assessment: See diagnoses Plan: Exam. A total of 25 minutes was spent [id number] with the patient, and over half of that time was spent on counsling, coordination of care, and discussing her diagnoses. Reviewed vascular testing. Discussed importance of tight blood sugar control, adequate nutrition especially increased protein intake, to promote healing. Discussed importance of edema control--recommended leg elevation above her heart while resting or sleeping, avoiding idle sitting or standing, compression of at least 20-30 mmHg, increased activity, weight management. Pt not having much pain, no need to take NSAIDs. Continue increased compression, switch to Unna boot. Recommended referral to vascular surgery again, but patient no longer wants to see a vascular surgeon and wants to control her leg edema with compression stockings. Advised pt that stockings need replaced every 3 months -- she can also purchase 4 pairs, and rotate them, and these will last for 1 year. Stop hydrofera blue, adaptic. Monitor for redness, pus, malodor, warmth, inc pain as well as for N/V/F/C and call or go to the ED with these. Return in 1 week with me, call with questions. Rx given previously 4 pairs 20-30 mmHg knee-high stockings with donning device, 4 refills. No open wounds, but pt has edema of LLE. Apply 3M 2-layer coban wrap to LLE.
[2017-09-03 14:03] VITALS: BP 146/80; PULSE 72; RESP 16; TEMP 36.8
--- NOTE | 2017-09-03 14:29 | NURSING ---
Pt c/o RLE compression stocking being too tight and is unable to wear due to this. Katherine Payton CM notified.
[2017-09-07 13:53] VITALS: BP 148/77; PULSE 89; RESP 16; TEMP 36.8
--- NOTE | 2017-09-07 14:49 | PCM.WC.PN ---
(1) Non-pressure chronic ulcer of other part of left lower leg limited to breakdown of skin Status: Acute Current Visit: Yes Code(s): L97.821 - Non-pressure chronic ulcer of other part of left lower leg limited to breakdown of skin (2) Non-pressure chronic ulcer of other part of right lower leg with fat layer exposed Status: Resolved Current Visit: No Code(s): L97.812 - Non-pressure chronic ulcer of other part of right lower leg with fat layer exposed (3) Type 2 diabetes mellitus with other circulatory complications Status: Chronic Current Visit: Yes Code(s): E11.59 - Type 2 diabetes mellitus with other circulatory complications (4) Venous insufficiency (chronic) (peripheral) Status: Chronic Current Visit: Yes Code(s): I87.2 - Venous insufficiency (chronic) (peripheral) (5) Bilateral leg edema Status: Chronic Current Visit: Yes Code(s): R60.0 - Localized edema Type of Wound Date of Service: 09/07/17 Chief Complaint: Non-healing ulcer R leg History of Wound: 71 year old diabetic woman with 2-3 week history of non-healing ulcer R laex. Pt states it started as a blister and opened. She was started on PO Keflex by her PCP and she has been applying hydrogel and telfa pads. She was referred her by her PCP due to no improvment in her leg ulceration. Has never had lower extremity vascular testing. Has not had recent blood work. Non-smoker. Blood sugar well-controlled, most recent A1c almost 1 year ago however and was 7.2. Pt does have CKD as well. No hx of CHF that she is aware of. Admits to sleeping in a recliner at night. Does not wear compression on her legs. 07/27-Has been trying to keep her legs elevated. Tolerated size F spandagrip, hydrofera blue well, but dressing adhered to the ulceration today. Vascular testing scheduled for next week. Pre-albumin low, emphasized importance of adequate nutrition today. 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 08/03--Has been trying to keep her legs elevated. Tolerated size F spandagrip, adaptic, and hydrofera blue well Vascular testing done and reveals normal BARTOLO but venous insufficiency bilateral. Pre-albumin low, emphasized importance of adequate nutrition today. 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 I did recommend referral to a vascular surgeon for venous insufficiency, but patient defers for now and would like to wait until her ulcer heals. 08/10--Improved with adaptic, hydrofera blue, and 3M 2-layer coban wrap for edema. The wrap did fall a few inches, so it will be wrapped higher today to hopefully prevent this. Pt did return on Wednesday for a nurse visit for compression wrap change. Tolerated wrap well, and was able to keep it dry. Ulcer measuring smaller. Discussed vascular surgeon once again, and pt defers this referral until after the ulcer heals. She states she wants to see Dr. Barnett at his office after the ulcer heals. She has been elevating her legs, increasing activity, avoiding idle sitting or standing. She does not have pain, so she does not need to take anti-inflammatory medications. She has been trying to lose weight. 08/17--Improved with adaptic, hydrofera blue, and 3M 2-layer coban wrap for edema. The 3M 2-layer coban stayed in place this week. Tolerated wrap well, and was able to keep it dry. Ulcer measuring smaller. Discussed vascular surgeon once again, and pt defers this referral until after the ulcer heals. She states she wants to see Dr. Barnett at his office after the ulcer heals. She has been elevating her legs, increasing activity, avoiding idle sitting or standing. She does not have pain, so she does not need to take anti-inflammatory medications. She has been trying to lose weight. Pt is diabetic with blood sugar 147 mg/dL this AM. 08/24--Improved with adaptic, hydrofera blue, and 3M 2-layer coban wrap for edema. The 3M 2-layer coban stayed in place this week. Tolerated wrap well, and was able to keep it dry. Ulcer measuring smaller, now almost healed. Pt now states she does not want to see a vascular surgeon. She has been elevating her legs, increasing activity, avoiding idle sitting or standing. She does not have pain, so she does not need to take anti-inflammatory medications. She has been trying to lose weight. Pt is diabetic with blood sugar 129 mg/dL this AM. 08/31--Healed with adaptic, hydrofera blue, and 3M 2-layer coban wrap for edema. The 3M 2-layer coban stayed in place this week. Tolerated wrap well, and was able to keep it dry. Ulcer measuring smaller, now almost healed. Pt now states she does not want to see a vascular surgeon. She has been elevating her legs, increasing activity, avoiding idle sitting or standing. She does not have pain, so she does not need to take anti-inflammatory medications. She has been trying to lose weight. Pt is diabetic with blood sugar 133 mg/dL this AM. Now has LLE swelling. 09/07--R alex remains healed. L alex with new superficial open lesion. Will treat with adaptic, collagen hydrogel, and dry dressing with 3M 2-layer coban wrap similar to RLE. Denies N/V/F/C. Denies pus,malodor, warmth, pain. No debridement L alex today. Pt will wear home stocking on the R, apply in AM and remove before sleep. She did come Wednesday for nurse visit. She will return again on Wednesday for a nurse visit for compression wrap change. Progress of Wound: R leg ulcer healed, has new superficial ulceration L alex with clean base - Physical Exam Vital Signs Temp Pulse Resp BP 98.2 F 89 16 148/77 H 09/07/17 13:53 09/07/17 13:53 09/07/17 13:53 09/07/17 13:53 General: Alert, Oriented x3, Cooperative, No apparent distress Extremities: Edema - Improving Skin: Ulcer/ Wound - Superficial ulcer L alex with no erythema, no malodor, no pus, no calor. No clinical signs of acute bacterial infection noted. See nurses wound/edema assessment below. Wound Measurements and Assessment WC - Nurse 1 - General Ulcer Measurement Start: 08/24/17 13:20 Freq: Status: Active Protocol: Activity Type Activity Date Activity User E-Sign Co-Sign Detail Recorded Client Recorded Date Recorded By Document 09/07/17 13:53 [facility] [id number] 09/07/17 14:01 [facility] 09/07/17 13:53 Wound Center Nurse 1 [Edema Assessment] -Lower Limb Edema Present Yes -Right Calf (cm) 43 -Right Ankle (cm) 26.5 -Left Calf (cm) 47.9 -Left Ankle (cm) 23.1 WC - Nurse 2 - General Ulcer CM Notes Start: 08/24/17 13:20 Freq: Status: Active Protocol: Activity Type Activity Date Activity User E-Sign Co-Sign Detail Recorded Client Recorded Date Recorded By Document 09/07/17 14:33 MW [id number] 09/07/17 14:36 MW 09/07/17 14:33 Wound Center Nurse 2 [Procedure/Treatment] #2 LEFT ALEX ULCER -Time 14:34 -Correct Patient Yes -Correct Side, Site, Position Yes -Correct Procedure Yes -Procedure Performed No -Post Debridement Size (cm) - Length 1.1 -Post Debridement Size (cm) - Width 1.0 -Post Debridement Size (cm) - Depth 0.1 -Total Square Cm 1.10 -Wound/Ulcer Outcome Not Healed -Ulcer Cleansing Rinsed/ Irrigated with Saline -Foul Odor after Cleansing No -Bioengineered Tissue No -Bleeding Controlled with Pressure -Treatment Response Procedure Tolerated Well [See Physician Procedure note for Specifics] Pain Scale: 0-10 Numeric [Pain] -Is Patient Pain Free? Yes Debridement Note Post-Debridement Measurements/Treatment MO - Nurse 2 - General Ulcer CM Notes Start: 08/24/17 13:20 Freq: Status: Active Protocol: Activity Type Activity Date Activity User E-Sign Co-Sign Detail Recorded Client Recorded Date Recorded By Document 08/24/17 13:49 MW [id number] 08/24/17 13:51 MW Document 08/31/17 13:51 MW [id number] 08/31/17 13:55 MW Document 09/07/17 14:33 MW [id number] 09/07/17 14:36 MW 08/24/17 08/31/17 09/07/17 13:49 13:51 14:33 Wound Center Nurse 2 #2 LEFT ALEX ULCER -Time 14:34 -Correct Patient Yes -Correct Side, Site, Position Yes -Correct Procedure Yes -Procedure Performed No -Post Debridement Size (cm) - Length 1.1 -Post Debridement Size (cm) - Width 1.0 -Post Debridement Size (cm) - Depth 0.1 -Total Square Cm 1.10 -Wound/Ulcer Outcome Not Healed -Ulcer Cleansing Rinsed/ Irrigated with Saline -Foul Odor after Cleansing No -Bioengineered Tissue No -Bleeding Controlled with Pressure -Treatment Response Procedure Tolerated Well #1- RT LAT ALEX -Time 13:50 13:52 -Correct Patient Yes Yes -Correct Side, Site, Position Yes Yes -Correct Procedure Yes Yes -Procedure Performed No No -Post Debridement Size (cm) - Length 0.8 0 -Post Debridement Size (cm) - Width 0.4 0 -Post Debridement Size (cm) - Depth 0.1 0 -Total Square Cm 0.32 0 -Wound/Ulcer Outcome Not Healed Healed- Epithelialized -Ulcer Cleansing Rinsed/ Rinsed/ Irrigated with Irrigated with Saline Saline -Foul Odor after Cleansing No No -Bioengineered Tissue No No -Bleeding Controlled with NA NA -Treatment Response Procedure Procedure Tolerated Well Tolerated Well Pain Scale: 0-10 Numeric Is Patient Pain Free? Yes Yes Yes No debridement was completed today Assessment/Plan Active Problems Venous insufficiency (chronic) (peripheral) (Chronic) Non-pressure chronic ulcer of other part of left lower leg limited to breakdown of skin (Acute) Bilateral leg edema (Chronic) 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) Assessment: See diagnoses Plan: Exam. A total of 15 minutes was spent [id number] with the patient, and over half of that time was spent on counsling, coordination of care, and discussing her diagnoses. Reviewed vascular testing. Discussed importance of tight blood sugar control, adequate nutrition especially increased protein intake, to promote healing. Discussed importance of edema control--recommended leg elevation above her heart while resting or sleeping, avoiding idle sitting or standing, compression of at least 20-30 mmHg, increased activity, weight management. Pt not having much pain, no need to take NSAIDs. Continue increased compression with 3M 2-laycer coban wrap to LLE. Home stocking to R leg in AM, remove before sleep. Adaptic, collagen hydrogel, hydrofera blue to L alex ulcer. Recommended referral to vascular surgery again, but patient no longer wants to see a vascular surgeon and wants to control her leg edema with compression stockings. Advised pt that stockings need replaced every 3 months -- she can also purchase 4 pairs, and rotate them, and these will last for 1 year. Stop hydrofera blue, adaptic. Monitor for redness, pus, malodor, warmth, inc pain as well as for N/V/F/C and call or go to the ED with these. Return in 1 week with me, nurse visit wednesday. Call with questions.
--- NOTE | 2017-09-07 14:56 | PN.PCM_ITS ---
(1) Non-pressure chronic ulcer of other part of left lower leg limited to breakdown of skin Status: Acute Current Visit: Yes Code(s): L97.821 - Non-pressure chronic ulcer of other part of left lower leg limited to breakdown of skin (2) Non-pressure chronic ulcer of other part of right lower leg with fat layer exposed Status: Resolved Current Visit: No Code(s): L97.812 - Non-pressure chronic ulcer of other part of right lower leg with fat layer exposed (3) Type 2 diabetes mellitus with other circulatory complications Status: Chronic Current Visit: Yes Code(s): E11.59 - Type 2 diabetes mellitus with other circulatory complications (4) Venous insufficiency (chronic) (peripheral) Status: Chronic Current Visit: Yes Code(s): I87.2 - Venous insufficiency ( chronic) (peripheral) (5) Bilateral leg edema Status: Chronic Current Visit: Yes Code(s): R60.0 - Localized edema Type of Wound Date of Service: 09/07/17 Chief Complaint: Non-healing ulcer R leg History of Wound: 71 year old diabetic woman with 2-3 week history of non- healing ulcer R alex. Pt states it started as a blister and opened. She was started on PO Keflex by her PCP and she has been applying hydrogel and telfa pads. She was referred her by her PCP due to no improvment in her leg ulceration. Has never had lower extremity vascular testing. Has not had recent blood work. Non-smoker. Blood sugar well-controlled, most recent A1c almost 1 year ago however and was 7.2. Pt does have CKD as well. No hx of CHF that she is aware of. Admits to sleeping in a recliner at night. Does not wear compression on her legs. 07/27-Has been trying to keep her legs elevated. Tolerated size F spandagrip, hydrofera blue well, but dressing adhered to the ulceration today. Vascular testing scheduled for next week. Pre-albumin low, emphasized importance of adequate nutrition today. 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 08/03--Has been trying to keep her legs elevated. Tolerated size F spandagrip, adaptic, and hydrofera blue well Vascular testing done and reveals normal [place] but venous insufficiency bilateral. Pre-albumin low, emphasized importance of adequate nutrition today. 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 I did recommend referral to a vascular surgeon for venous insufficiency, but patient defers for now and would like to wait until her ulcer heals. 08/10--Improved with adaptic, hydrofera blue, and 3M 2-layer coban wrap for edema. The wrap did fall a few inches, so it will be wrapped higher today to hopefully prevent this. Pt did return on Wednesday for a nurse visit for compression wrap change. Tolerated wrap well, and was able to keep it dry. Ulcer measuring smaller. Discussed vascular surgeon once again, and pt defers this referral until after the ulcer heals. She states she wants to see Dr. Barnett at his office after the ulcer heals. She has been elevating her legs, increasing activity, avoiding idle sitting or standing. She does not have pain, so she does not need to take anti-inflammatory medications. She has been trying to lose weight. 08/17-- Improved with adaptic, hydrofera blue, and 3M 2-layer coban wrap for edema. The 3M 2-layer coban stayed in place this week. Tolerated wrap well, and was able to keep it dry. Ulcer measuring smaller. Discussed vascular surgeon once again, and pt defers this referral until after the ulcer heals. She states she wants to see Dr. Barnett at his office after the ulcer heals. She has been elevating her legs, increasing activity, avoiding idle sitting or standing. She does not have pain, so she does not need to take anti-inflammatory medications. She has been trying to lose weight. Pt is diabetic with blood sugar 147 mg/dL this AM. 08/24--Improved with adaptic, hydrofera blue, and 3M 2- layer coban wrap for edema. The 3M 2-layer coban stayed in place this week. Tolerated wrap well, and was able to keep it dry. Ulcer measuring smaller, now almost healed. Pt now states she does not want to see a vascular surgeon. She has been elevating her legs, increasing activity, avoiding idle sitting or standing. She does not have pain, so she does not need to take anti- inflammatory medications. She has been trying to lose weight. Pt is diabetic with blood sugar 129 mg/dL this AM. 08/31--Healed with adaptic, hydrofera blue, and 3M 2-layer coban wrap for edema. The 3M 2-layer coban stayed in place this week. Tolerated wrap well, and was able to keep it dry. Ulcer measuring smaller, now almost healed. Pt now states she does not want to see a vascular surgeon. She has been elevating her legs, increasing activity, avoiding idle sitting or standing. She does not have pain, so she does not need to take anti- inflammatory medications. She has been trying to lose weight. Pt is diabetic with blood sugar 133 mg/dL this AM. Now has LLE swelling. 09/07--R alex remains healed. L alex with new superficial open lesion. Will treat with adaptic, collagen hydrogel, and dry dressing with 3M 2-layer coban wrap similar to RLE. Denies N/V/F/C. Denies pus,malodor, warmth, pain. No debridement L alex today. Pt will wear home stocking on the R, apply in AM and remove before sleep. She did come Wednesday for nurse visit. She will return again on Wednesday for a nurse visit for compression wrap change. Progress of Wound: R leg ulcer healed, has new superficial ulceration L alex with clean base - Physical Exam Vital Signs Temp Pulse Resp BP 98.2 F 89 16 148/77 H 09/07/17 13:53 09/07/17 13:53 09/07/17 13:53 09/07/17 13:53 General: Alert, Oriented x3, Cooperative, No apparent distress Extremities: Edema - Improving Skin: Ulcer/ Wound - Superficial ulcer L alex with no erythema, no malodor, no pus, no calor. No clinical signs of acute bacterial infection noted. See nurse ?s wound/edema assessment below. Wound Measurements and Assessment WC - Nurse 1 - General Ulcer Measurement Start: 08/24/17 13:20 Freq: Status: Active Protocol: Activity Type Activity Date Activity User E-Sign Co-Sign Detail Recorded Client Recorded Date Recorded By Document 09/07/17 13:53 [facility] [id number] 09/07/17 14:01 [facility] 09/07/17 13:53 Wound Center Nurse 1 [Edema Assessment] -Lower Limb Edema Present Yes -Right Calf (cm) 43 -Right Ankle (cm) 26.5 -Left Calf (cm) 47.9 -Left Ankle (cm) 23.1 MO - Nurse 2 - General Ulcer CM Notes Start: 08/24/17 13:20 Freq: Status: Active Protocol: Activity Type Activity Date Activity User E-Sign Co-Sign Detail Recorded Client Recorded Date Recorded By Document 09/07/17 14:33 MW [id number] 09/07/17 14:36 MW 09/07/17 14:33 Wound Center Nurse 2 [Procedure/Treatment] #2 LEFT ALEX ULCER -Time 14:34 -Correct Patient Yes -Correct Side, Site, Position Yes -Correct Procedure Yes -Procedure Performed No -Post Debridement Size (cm) - Length 1.1 -Post Debridement Size (cm) - Width 1.0 -Post Debridement Size (cm) - Depth 0.1 -Total Square Cm 1.10 -Wound/Ulcer Outcome Not Healed -Ulcer Cleansing Rinsed/ Irrigated with Saline -Foul Odor after Cleansing No -Bioengineered Tissue No -Bleeding Controlled with Pressure -Treatment Response Procedure Tolerated Well [See Physician Procedure note for Specifics] Pain Scale: 0-10 Numeric [Pain] -Is Patient Pain Free? Yes Debridement Note Post-Debridement Measurements/Treatment MO - Nurse 2 - General Ulcer CM Notes Start: 08/24/17 13:20 Freq: Status: Active Protocol: Activity Type Activity Date Activity User E-Sign Co-Sign Detail Recorded Client Recorded Date Recorded By Document 08/24/17 13:49 MW [id number] 08/24/17 13:51 MW Document 08/31/17 13:51 MW [id number] 08/31/17 13:55 MW Document 09/07/17 14:33 MW [id number] 09/07/17 14:36 MW 08/24/17 08/31/17 09/07/17 13:49 13:51 14:33 Wound Center Nurse 2 #2 LEFT ALEX ULCER -Time 14:34 -Correct Patient Yes -Correct Side, Site, Position Yes -Correct Procedure Yes -Procedure Performed No -Post Debridement Size (cm) - Length 1.1 -Post Debridement Size (cm) - Width 1.0 -Post Debridement Size (cm) - Depth 0.1 -Total Square Cm 1.10 -Wound/Ulcer Outcome Not Healed -Ulcer Cleansing Rinsed/ Irrigated with Saline -Foul Odor after Cleansing No -Bioengineered Tissue No -Bleeding Controlled with Pressure -Treatment Response Procedure Tolerated Well #1- RT LAT ALEX -Time 13:50 13:52 -Correct Patient Yes Yes -Correct Side, Site, Position Yes Yes -Correct Procedure Yes Yes -Procedure Performed No No -Post Debridement Size (cm) - Length 0.8 0 -Post Debridement Size (cm) - Width 0.4 0 -Post Debridement Size (cm) - Depth 0.1 0 -Total Square Cm 0.32 0 -Wound/Ulcer Outcome Not Healed Healed- Epithelialized -Ulcer Cleansing Rinsed/ Rinsed/ Irrigated with Irrigated with Saline Saline -Foul Odor after Cleansing No No -Bioengineered Tissue No No -Bleeding Controlled with NA NA -Treatment Response Procedure Procedure Tolerated Well Tolerated Well Pain Scale: 0-10 Numeric Is Patient Pain Free? Yes Yes Yes No debridement was completed today Assessment/Plan Active Problems Venous insufficiency (chronic) (peripheral) (Chronic) Non-pressure chronic ulcer of other part of left lower leg limited to breakdown of skin (Acute) Bilateral leg edema (Chronic) 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) Assessment: See diagnoses Plan: Exam. A total of 15 minutes was spent [id number] with the patient, and over half of that time was spent on counsling, coordination of care, and discussing her diagnoses. Reviewed vascular testing. Discussed importance of tight blood sugar control, adequate nutrition especially increased protein intake, to promote healing. Discussed importance of edema control--recommended leg elevation above her heart while resting or sleeping, avoiding idle sitting or standing, compression of at least 20-30 mmHg, increased activity, weight management. Pt not having much pain, no need to take NSAIDs. Continue increased compression with 3M 2-laycer coban wrap to LLE. Home stocking to R leg in AM, remove before sleep. Adaptic, collagen hydrogel, hydrofera blue to L alex ulcer. Recommended referral to vascular surgery again, but patient no longer wants to see a vascular surgeon and wants to control her leg edema with compression stockings. Advised pt that stockings need replaced every 3 months - - she can also purchase 4 pairs, and rotate them, and these will last for 1 year. Stop hydrofera blue, adaptic. Monitor for redness, pus, malodor, warmth , inc pain as well as for N/V/F/C and call or go to the ED with these. Return in 1 week with me, nurse visit wednesday. Call with questions.
[2017-09-10 13:59] VITALS: BP 150/52; PULSE 81; RESP 18; TEMP 36.9
[2017-09-15 15:51] VITALS: BP 141/64; PULSE 81; RESP 18; TEMP 37.3
--- NOTE | 2017-09-15 15:58 | WC ---
PT HAS NUMEROUS CLEAR FLIUD FILLED BLISTERS IN LLE WHICH ARE INTACR
--- NOTE | 2017-09-15 17:01 | PCM.WC.PN ---
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 Status: Chronic Qualifiers: Laterality: left Qualified Code(s): L97.922 - Non-pressure chronic ulcer of unspecified part of left lower leg with fat layer exposed Code(s): L97.902 - Non-pressure chronic ulcer of unspecified part of unspecified lower leg with fat layer exposed (2) Blister of left leg without infection Status: Chronic Qualifiers: Encounter type: initial encounter Qualified Code(s): S80.822A - Blister (nonthermal), left lower leg, initial encounter Code(s): S80.822A - Blister (nonthermal), left lower leg, initial encounter (3) Venous insufficiency (chronic) (peripheral) Status: Chronic Code(s): I87.2 - Venous insufficiency (chronic) (peripheral) (4) Protein malnutrition Status: Chronic Code(s): E46 - Unspecified protein-calorie malnutrition (5) CKD (chronic kidney disease) stage 4, GFR 15-29 ml/min Status: Chronic Code(s): N18.4 - Chronic kidney disease, stage 4 (severe) (6) DM2 (diabetes mellitus, type 2) Status: Chronic Code(s): E11.9 - Type 2 diabetes mellitus without complications (7) Bilateral leg edema Status: Chronic Code(s): R60.0 - Localized edema Type of Wound Date of Service: 09/15/17 Chief Complaint: Non-healing ulcer R leg History of Wound: 71 year old diabetic woman with a non-healing ulcer R alex. Pt states it started as a blister and opened. Does not wear compression on her legs. She has completed standard wound care work up including labs and vascular studies. She missed her appointment with Dr. Claire yesterday and presented today for a nurse visit. She developed some new blisters and was concerned about if there is an infection and I was asked to evaluate her given the status change. Progress of Wound: left leg ulcer fat exposed- stable. new blisters left leg - Physical Exam Vital Signs Temp Pulse Resp BP 99.1 F 81 18 141/64 H 09/15/17 15:51 09/15/17 15:51 09/15/17 15:51 09/15/17 15:51 General: Alert, Oriented x3, Cooperative Extremities: No cyanosis, Capillary Refill Less than 3 Seconds, No Calf Tenderness - negative wilberto and pimentel signs bilateral, Diminished Peripheral Pulses, Edema - bilateral lower extremities, - - compartments of left lower extremity are soft to palpate Skin: Ulcer/ Wound - no purulence, no erythema, no streaking, no infection noted. wound has fibrous (80% base) and the remainder is granular and pale. no exposed deep tissue noted. there are serous filled bulla to the anterior , medial and lateral leg with no deep tissue exposed upon drainage, - - the skin is atrophic and hairless. no interdigital maceration is noted Wound Measurements and Assessment WC - Nurse 1 - General Ulcer Measurement Start: 08/24/17 13:20 Freq: Status: Active Protocol: Activity Type Activity Date Activity User E-Sign Co-Sign Detail Recorded Client Recorded Date Recorded By Document 09/15/17 15:51 RORO [id number] 09/15/17 15:56 RB 09/15/17 15:51 Wound Center Nurse 1 [Ulcer Assessment] #2 LEFT ALEX ULCER -Combined with other wound No -Current Size (cm) - Length 2 -Current Size (cm) - Width 0.9 -Current Size (cm) - Depth 0.1 -Total Square Cm 1.8 -Photo Taken No -Tunneling No -Undermining/Tunneling No -Circular Undermining No -Classification - Thickness Full Thickness without Exposed Support Structure -Exudate Amt Small (1-33%) -Exudate Type Serosanguineous -Wound Margin Distinct, Outline Attached -Granulation Amt Medium (34-66%) -Granulation Quality [place] -Slough/Fibrin Yes -Necrosis Amt Small (1-33%) -Necrotic Tissue Type Adherent Slough -Structure Exposed N/A -Texture (Cary-wound Skin Appearance) Assessed Localized Edema -Moisture (Cary-wound Skin Appearance Assessed ) -Color (Cary-wound Skin Appearance) Assessed -Temperature (Cary-wound Skin No Abnormality Appearance) (Pt Warm) -Tenderness on Palpation (Cary-wound No Skin Appearance) -Ulcer Cleansing Rinsed/ Irrigated with Saline -Anesthetic Used 5% Lidocaine Gel [Edema Assessment] -Lower Limb Edema Present Yes -Right Calf (cm) 46.5 -Right Ankle (cm) 24.6 09/15/17 15:58 Wound Center by Jannie Colunga PT HAS NUMEROUS CLEAR FLIUD FILLED BLISTERS IN LLE WHICH ARE INTACR Initialized on 09/15/17 15:58 - END OF NOTE - Nurse 2 - General Ulcer CM Notes Start: 08/24/17 13:20 Freq: Status: Active Protocol: Activity Type Activity Date Activity User E-Sign Co-Sign Detail Recorded Client Recorded Date Recorded By Document 09/15/17 16:25 [id number] 09/15/17 16:30 09/15/17 16:25 Wound Center Nurse 2 [Procedure/Treatment] #2 LEFT ALEX ULCER -Time 16:25 -Correct Patient Yes -Correct Side, Site, Position Yes -Correct Procedure Yes -Type of Procedure Debridement -Clinical Debridement Subcutaneous -Post Debridement Size (cm) - Length 2 -Post Debridement Size (cm) - Width 1 -Post Debridement Size (cm) - Depth 0.1 -Total Square Cm 2 -Wound/Ulcer Outcome Not Healed -Ulcer Cleansing Rinsed/ Irrigated with Saline -Foul Odor after Cleansing No -Bioengineered Tissue No -Bleeding Controlled with Pressure -Treatment Response Procedure Tolerated Well [See Physician Procedure note for Specifics] Pain Scale: 0-10 Numeric [Pain] -Is Patient Pain Free? Yes Musculoskeletal: No Tenderness to Palpation of Joints or Extremities, Muscle Wasting, - - no pain with wound manipu Neurological: Sensory exam intact to light touch and pain Psych/Mental Status: Normal Affect, Appropriate Debridement Note Post-Debridement Measurements/Treatment - Nurse 2 - General Ulcer CM Notes Start: 08/24/17 13:20 Freq: Status: Active Protocol: Activity Type Activity Date Activity User E-Sign Co-Sign Detail Recorded Client Recorded Date Recorded By Document 08/24/17 13:49 MW [id number] 08/24/17 13:51 MW Document 08/31/17 13:51 MW [id number] 08/31/17 13:55 MW Document 09/07/17 14:33 MW [id number] 09/07/17 14:36 MW Document 09/15/17 16:25 [id number] 09/15/17 16:30 JF 08/24/17 08/31/17 09/07/17 13:49 13:51 14:33 Wound Center Nurse 2 #2 LEFT ALEX ULCER -Time 14:34 -Correct Patient Yes -Correct Side, Site, Position Yes -Correct Procedure Yes -Procedure Performed No -Type of Procedure -Clinical Debridement -Post Debridement Size (cm) - Length 1.1 -Post Debridement Size (cm) - Width 1.0 -Post Debridement Size (cm) - Depth 0.1 -Total Square Cm 1.10 -Wound/Ulcer Outcome Not Healed -Ulcer Cleansing Rinsed/ Irrigated with Saline -Foul Odor after Cleansing No -Bioengineered Tissue No -Bleeding Controlled with Pressure -Treatment Response Procedure Tolerated Well #1- RT LAT ALEX -Time 13:50 13:52 -Correct Patient Yes Yes -Correct Side, Site, Position Yes Yes -Correct Procedure Yes Yes -Procedure Performed No No -Post Debridement Size (cm) - Length 0.8 0 -Post Debridement Size (cm) - Width 0.4 0 -Post Debridement Size (cm) - Depth 0.1 0 -Total Square Cm 0.32 0 -Wound/Ulcer Outcome Not Healed Healed- Epithelialized -Ulcer Cleansing Rinsed/ Rinsed/ Irrigated with Irrigated with Saline Saline -Foul Odor after Cleansing No No -Bioengineered Tissue No No -Bleeding Controlled with NA NA -Treatment Response Procedure Procedure Tolerated Well Tolerated Well Pain Scale: 0-10 Numeric Is Patient Pain Free? Yes Yes Yes 09/15/17 16:25 Wound Center Nurse 2 #2 LEFT ALEX ULCER -Time 16:25 -Correct Patient Yes -Correct Side, Site, Position Yes -Correct Procedure Yes -Procedure Performed -Type of Procedure Debridement -Clinical Debridement Subcutaneous -Post Debridement Size (cm) - Length 2 -Post Debridement Size (cm) - Width 1 -Post Debridement Size (cm) - Depth 0.1 -Total Square Cm 2 -Wound/Ulcer Outcome Not Healed -Ulcer Cleansing Rinsed/ Irrigated with Saline -Foul Odor after Cleansing No -Bioengineered Tissue No -Bleeding Controlled with Pressure -Treatment Response Procedure Tolerated Well #1- RT LAT ALEX -Time -Correct Patient -Correct Side, Site, Position -Correct Procedure -Procedure Performed -Post Debridement Size (cm) - Length -Post Debridement Size (cm) - Width -Post Debridement Size (cm) - Depth -Total Square Cm -Wound/Ulcer Outcome -Ulcer Cleansing -Foul Odor after Cleansing -Bioengineered Tissue -Bleeding Controlled with -Treatment Response Pain Scale: 0-10 Numeric Is Patient Pain Free? Yes Wound debrided: leg Laterality: Left Wound Grade/Stage: grade1 Type of Debridement: Excisional debridement Anesthesia Used: 4% Lidocaine Solution Depth: in the subcutaneous layer Percentage of wound debrided: 100 Instrument Used: #15 blade Tissue Removed: fibrous, devitalized subcutaneous, biofilm, slough Severity: Fat Layer Exposed Amount of bleeding with debridement: Mild Bleeding Controlled with: Pressure Patient tolerated procedure well Assessment/Plan Assessment: See diagnoses Plan: I reviewed and discussed her case and on going treatment plan. Debridement was performed as noted in the clinical panel. Adaptic, hydrogel, and hydrophera blue was applied to the ulcer site; to change daily. An advanced wound care product may be of benefit in the future. Betadine cleanse was performed to the bulla site and a clean 15 blade was used to perforate these sites to decompress the fluid collection. No infection was noted and she was reassured. This was covered with adaptic and the skin outer layer was kept intact as a biologic dressing. I discussed importance of tight blood sugar control, adequate nutrition especially increased protein intake, to promote healing. A nutrition service referral may be recommended in the future. Her last hemoglobin A1C was 6 %. Her other labs including cbc and cmp from earlier this year were reviewed. She appears to have pancytopenia, good kidney function, and her prealubmin is 9.8. Discussed importance of edema control--recommended leg elevation above her heart while resting or sleeping, avoiding idle sitting or standing, compression of at least 20-30 mmHg, increased activity, weight management. Pt not having much pain, no need to take NSAIDs. Continue increased compression with 3M 2-layer wrap to LLE. Home stocking to R leg in AM, remove before sleep. Dr. Claire has recommended referral to vascular surgery for edema evaluation and she defers at this time. She has incompenent veins as noted on her venous duplex doppler exam. Her arterial studies were normal and demonstrated adequate lower extremity perfusion. To monitor for redness, pus, malodor, warmth, increased pain as well as for N/V/F/C and call or go to the ED with these. Return in [address] Claire. I answered her questions.
[2017-09-17 12:46] VITALS: BP 129/79; PULSE 72; RESP 20; TEMP 36.1
--- NOTE | 2017-09-17 13:24 | WC ---
3M 2-Layer wraps to the LLE were baggy and loose upon arrival. Wraps had been placed Wednesday. Removal of wraps & dressings revealed more blisters. Education given regarding wraps, leg elevation. She acknowledged understanding. All blisters were dressed using C. Hydrogel and covered w/Adaptic. Primary alex ulcer also covered w/moistened Hydrofera Blue as ordered. 5X9 ABD pads placed across lower extremity for protection and secured using 4 Kerlex. Next appointment W/Dr. Claire 09/21 @ 1:00p
== END 2017-09-18 23:59 ==
LOC: WC 12:15
PROVIDERS: Family Provider Family Medicine; PCP Family Medicine; Visit Provider Podiatrist Foot & Ankle Surgery
DX: E11.622 Type 2 diabetes mellitus with other skin ulcer (principal); E11.51 Type 2 diabetes mellitus with diabetic peripheral angiopathy without gangrene; L97.812 Non-pressure chronic ulcer of other part of right lower leg with fat layer exposed; R60.0 Localized edema; E11.22 Type 2 diabetes mellitus with diabetic chronic kidney disease; N18.9 Chronic kidney disease, unspecified
CPT/HCPCS: 11042; 29580; 29581; 99211; 99212; 99213; G0463

== ENCOUNTER → 2017-10-13 12:24 | Outpatient (CLI) | payer MEDICARE, SELFPAY ==
--- NOTE | 2017-10-13 12:33 | RAD_ITS ---
STUDY: X-RAY - ABDOMEN/PELVIS REASON FOR EXAM: Female, 71 years old. SEVERE ABDOMINAL DISTENTION/BLOATING X3 WEEKS AND GETTING WORSE TECHNIQUE: AP supine and upright views of the abdomen and pelvis. COMPARISON: None . FINDINGS: Normal visualized lung bases. There is a moderate amount of colonic fecal material. There is no demonstrated free abdominal air. The visualized liver, spleen and kidneys are grossly normal in size and morphology. Normal soft tissue structures. There are diffuse degenerative changes of the visualized lumbar spine. RAD/Abd Inc Decub and/or Erect IMPRESSION: Constipation. Electronically Signed: Isac Blevins MD at 17:25 EDT , Service support ,
[2017-10-13 14:03] LABS: Absolute Lymphocyte Count 0.46 X10^3/ul (0.83-4.51); Absolute Neutrophil Count 2.3 X10^3/uL (2.0-7.7); Basophil# 0.02 X10^3/uL; Basophil% 0.6 % (0-1); Differential Indicated SCAN CRITERIA MET; Eosinophil# 0.08 X10^3/uL; Eosinophils% 2.6 % (0-5); Hematocrit 33.7 % (37-47); Hemoglobin 10.9 g/dl (12.0-15.0); Lymphocyte # 0.46 X10^3/ul (4.0); Lymphocyte % 14.7 % (19-41); Mean Corp Hgb Conc 32.3 g/gl (32-36); Mean Corpuscular Hgb 30.8 pg (27.0-32.0); Mean Corpuscular Volume 95.2 fL (81-99); Mean Platelet Vol. 10.3 fl (6.2-12.0); Monocyte# 0.22 X10^3/uL; Neutrophil # 2.34 X10^3/uL (2.7-7.7); Neutrophil % 74.8 % (47-70); POSITIVE COUNT NO; POSITIVE DIFFERENTIAL YES; POSITIVE MORPHOLOGY NO; Platelet Count 98 K/mm3 (150-450); RBC Distribution Width CV 15.7 % (11.6-14.6); RBC Distribution Width SD 52.7 fl (35.1-43.9); Red Blood Count 3.54 M/mm3 (4.2-5.4); White Blood Count 3.1 K/mm3 (4.4-11.0)
[2017-10-13 14:17] LABS: ALB/GLOB Ratio 0.8 RATIO (0.9-2.4); AST(SGOT) 37 U/L (15-37); Alanine Aminotransfer ALT/SGPT 31 U/L (13-56); Albumin, Serum 3.1 g/dL (3.2-5.0); Alkaline Phosphatase 181 U/L (45-117); Anion Gap 5 (5-15); BUN 29 mg/dL (7-18); BUN/Creat Ratio 21.3 RATIO (10-20); Calcium,Total 10.6 mg/dL (8.5-10.1); Chloride 109 mmol/L (98-107); Creatinine, Serum 1.36 mg/dL (0.55-1.02); EST Glomerular Filtration Rate 41 mL/min (>60); Est Glom Filt Rate - Afr Amer 49 mL/min (>60); Globulin 4.1 g/dL (2.2-4.2); Glucose 129 mg/dL (74-106); Potassium 4.1 mmol/L (3.5-5.1); Protein, Total 7.2 g/dL (6.4-8.2); Sodium Level 141 mmol/L (136-145)
== END ==
PROVIDERS: Family Provider Family Medicine; PCP Family Medicine; Visit Provider Family Medicine
DX: K59.00 Constipation, unspecified (principal)
CPT/HCPCS: 36415; 74019; 80053; 85025

== ENCOUNTER → 2017-10-16 10:08 | Outpatient (CLI) | payer MEDICARE, SELFPAY ==
--- NOTE | 2017-10-16 10:17 | US_ITS ---
STUDY: ABDOMINAL ULTRASOUND REASON FOR EXAM: Female, 71 years old. Pain and bloating. TECHNIQUE: Transabdominal ultrasound was performed with real-time and static best scale imaging. TECHNICAL QUALITY: Adequate. COMPARISON: CT abdomen and pelvis 04/12/2017. FINDINGS: Liver: Large ascites overlying the liver surface. The liver measures 15.2 cm. Increased echogenicity of the liver parenchyma due to fatty infiltration. The bile ducts are within normal limits. There is hepatic color flow. The direction of portal flow is hepatopetal. There is no demonstrated mass lesion. Portal vein measurement: Gallbladder: Abnormal gallbladder containing multiple gallbladder polyps. The dominant polyp is 6 mm in diameter. The gallbladder wall measures 3.4 mm. There is a negative sonographic Pelayo's sign. Minimal pericholecystic fluid. There are no gallstones. Common Bile Duct (C.B.D.): The common bile duct measures 2.3 mm. Pancreas: Nonvisualization of the pancreas. Spleen: Splenomegaly. The spleen measures 15.7 x 5.7 x 5.8 cm. Right Kidney: Normal size of the right kidney. The right kidney measures 8.5 x 4.2 x 4.3 cm. Normal renal cortex. The right cortex measures 1.1 cm. There is no demonstrated renal mass or cyst. Monostatic calculus measuring 8 x 10 x 7 mm. There is no right hydronephrosis. Left Kidney: Normal size of the left kidney. The left kidney measures 9.7 x 3.8 x 4.9 cm. Normal renal cortex. The left cortex measures 1.2 cm. There is no demonstrated renal mass or cyst. 2 nonobstructive calculi measuring 7 x 7 x 5 mm and 6 x 5 x 4 mm. There is no left hydronephrosis. Aorta: Proximal diameter is 2.2 x 1.4 cm. Mid and distal aorta are not visualized. I.V.C.: The IVC is patent. Positive for ascites. US/Abdomen Complete IMPRESSION: 1. Hepatic steatosis. 2. Splenomegaly. 3. Ascites. 4. Multiple gallbladder polyps, the dominant polyp is 6 mm in diameter. Negative sonographic Pelayo's sign. 5. Nonobstructing calculus in the right kidney and nonobstructing calculi in the left kidney. Electronically Signed: Atilio Candelaria MD at 14:37 EDT , Service support ,
== END ==
PROVIDERS: Family Provider Family Medicine; PCP Family Medicine; Visit Provider Family Medicine
DX: K76.0 Fatty (change of) liver, not elsewhere classified (principal); K82.4 Cholesterolosis of gallbladder; N20.0 Calculus of kidney; R16.1 Splenomegaly, not elsewhere classified; R18.8 Other ascites
CPT/HCPCS: 76700

== ENCOUNTER 2017-10-18 13:00 | Outpatient (RCR) | payer MEDICARE, SELFPAY ==
[2017-09-19 00:53] VITALS: BP 160/59; PULSE 72; RESP 20; TEMP 36.1
[2017-09-21 12:56] VITALS: BP 179/78; PULSE 87; RESP 18; TEMP 36.2
--- NOTE | 2017-09-21 14:18 | PCM.WC.PN ---
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 Pt states it started as a blister and opened. She was started on PO Keflex by her PCP and she has been applying hydrogel and telfa pads. She was referred her by her PCP due to no improvment in her leg ulceration. Has never had lower extremity vascular testing. Has not had recent blood work. Non-smoker. Blood sugar well-controlled, most recent A1c almost 1 year ago however and was 7.2. Pt does have CKD as well. No hx of CHF that she is aware of. Admits to sleeping in a recliner at night. Does not wear compression on her legs. 07/27-Has been trying to keep her legs elevated. Tolerated size F spandagrip, hydrofera blue well, but dressing adhered to the ulceration today. Vascular testing scheduled for next week. Pre-albumin low, emphasized importance of adequate nutrition today. 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 08/03--Has been trying to keep her legs elevated. Tolerated size F spandagrip, adaptic, and hydrofera blue well Vascular testing done and reveals normal [place] but venous insufficiency bilateral. Pre-albumin low, emphasized importance of adequate nutrition today. 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 I did recommend referral to a vascular surgeon for venous insufficiency, but patient defers for now and would like to wait until her ulcer heals. 08/10--Improved with adaptic, hydrofera blue, and 3M 2-layer coban wrap for edema. The wrap did fall a few inches, so it will be wrapped higher today to hopefully prevent this. Pt did return on Wednesday for a nurse visit for compression wrap change. Tolerated wrap well, and was able to keep it dry. Ulcer measuring smaller. Discussed vascular surgeon once again, and pt defers this referral until after the ulcer heals. She states she wants to see Dr. Barnett at his office after the ulcer heals. She has been elevating her legs, increasing activity, avoiding idle sitting or standing. She does not have pain, so she does not need to take anti-inflammatory medications. She has been trying to lose weight. 08/17--Improved with adaptic, hydrofera blue, and 3M 2-layer coban wrap for edema. The 3M 2-layer coban stayed in place this week. Tolerated wrap well, and was able to keep it dry. Ulcer measuring smaller. Discussed vascular surgeon once again, and pt defers this referral until after the ulcer heals. She states she wants to see Dr. Barnett at his office after the ulcer heals. She has been elevating her legs, increasing activity, avoiding idle sitting or standing. She does not have pain, so she does not need to take anti-inflammatory medications. She has been trying to lose weight. Pt is diabetic with blood sugar 147 mg/dL this AM. 08/24--Improved with adaptic, hydrofera blue, and 3M 2-layer coban wrap for edema. The 3M 2-layer coban stayed in place this week. Tolerated wrap well, and was able to keep it dry. Ulcer measuring smaller, now almost healed. Pt now states she does not want to see a vascular surgeon. She has been elevating her legs, increasing activity, avoiding idle sitting or standing. She does not have pain, so she does not need to take anti-inflammatory medications. She has been trying to lose weight. Pt is diabetic with blood sugar 129 mg/dL this AM. 08/31--Healed with adaptic, hydrofera blue, and 3M 2-layer coban wrap for edema. The 3M 2-layer coban stayed in place this week. Tolerated wrap well, and was able to keep it dry. Ulcer measuring smaller, now almost healed. Pt now states she does not want to see a vascular surgeon. She has been elevating her legs, increasing activity, avoiding idle sitting or standing. She does not have pain, so she does not need to take anti-inflammatory medications. She has been trying to lose weight. Pt is diabetic with blood sugar 133 mg/dL this AM. Now has LLE swelling. 09/07--R alex remains healed. L alex with new superficial open lesion. Will treat with adaptic, collagen hydrogel, and dry dressing with 3M 2-layer coban wrap similar to RLE. Denies N/V/F/C. Denies pus,malodor, warmth, pain. No debridement L alex today. Pt will wear home stocking on the R, apply in AM and remove before sleep. She did come Wednesday for nurse visit. She will return again on Wednesday for a nurse visit for compression wrap change. 09/21--L alex ulcer stable, now with cluster distal L alex due to blisters. Pt kept her leg down without compression last wednesday, returned on wednesday for nurse visit but ended up seeing Dr. Nova. Today, will continue 3M 2-layer coban wrap, and switch to aquacel ag rather than hydrofera blue. Progress of Wound: stable, new ulcer cluster distal L alex - Physical Exam Vital Signs Temp Pulse Resp BP 97.1 F L 87 18 179/78 H 09/21/17 12:56 09/21/17 12:56 09/21/17 12:56 09/21/17 12:56 General: Alert, Oriented x3, Cooperative, No apparent distress Skin: Ulcer/ Wound - L alex x 2 (including cluster distally) with no erythema, no pus, no malodor, no warmth, no pain. No clinical signs of acute bacterial infection noted. See wound/edema assessment below. Wound Measurements and Assessment WC - Nurse 1 - General Ulcer Measurement Start: 09/21/17 12:56 Freq: Status: Active Protocol: Activity Type Activity Date Activity User E-Sign Co-Sign Detail Recorded Client Recorded Date Recorded By Document 09/21/17 12:56 RORO [id number] 09/21/17 13:05 RB 09/21/17 12:56 Wound Center Nurse 1 [Ulcer Assessment] #2 LEFT ALEX ULCER -Combined with other wound No -Current Size (cm) - Length 0.4 -Current Size (cm) - Width 0.5 -Current Size (cm) - Depth 0.1 -Total Square Cm 0.20 -Photo Taken No -Tunneling No -Undermining/Tunneling No -Circular Undermining No -Classification - Thickness Full Thickness without Exposed Support Structure -Exudate Amt Small (1-33%) -Exudate Type Serosanguineous -Wound Margin Distinct, Outline Attached -Granulation Amt Large (67-100%) -Granulation Quality [place] -Slough/Fibrin Yes -Necrosis Amt Small (1-33%) -Necrotic Tissue Type Adherent Slough -Structure Exposed N/A -Texture (Cary-wound Skin Appearance) Assessed -Moisture (Cary-wound Skin Appearance Assessed ) -Color (Cary-wound Skin Appearance) Assessed -Temperature (Cary-wound Skin No Abnormality Appearance) (Pt Warm) -Tenderness on Palpation (Cary-wound No Skin Appearance) -Ulcer Cleansing Rinsed/ Irrigated with Saline -Foul Odor after Cleansing No -Anesthetic Used 5% Lidocaine Gel [Edema Assessment] -Lower Limb Edema Present Yes -Left Calf (cm) 48.5 -Left Ankle (cm) 23.2 WC - Nurse 2 - General Ulcer CM Notes Start: 09/21/17 12:56 Freq: Status: Active Protocol: Activity Type Activity Date Activity User E-Sign Co-Sign Detail Recorded Client Recorded Date Recorded By Document 09/21/17 13:52 MW [id number] 09/21/17 13:58 MW 09/21/17 13:52 Wound Center Nurse 2 [Procedure/Treatment] #2 LEFT ALEX ULCER -Time 13:15 -Correct Patient Yes -Correct Side, Site, Position Yes -Correct Procedure Yes -Procedure Performed Yes -Type of Procedure Debridement -Clinical Debridement Subcutaneous -Post Debridement Size (cm) - Length 0.5 -Post Debridement Size (cm) - Width 0.7 -Post Debridement Size (cm) - Depth 0.1 -Total Square Cm 0.35 -Wound/Ulcer Outcome Not Healed -Ulcer Cleansing Rinsed/ Irrigated with Saline -Foul Odor after Cleansing No -Bioengineered Tissue No -Bleeding Controlled with Pressure -Treatment Response Procedure Tolerated Well [See Physician Procedure note for Specifics] Pain Scale: 0-10 Numeric [Pain] -Is Patient Pain Free? Yes Debridement Note Post-Debridement Measurements/Treatment WC - Nurse 2 - General Ulcer CM Notes Start: 09/21/17 12:56 Freq: Status: Active Protocol: Activity Type Activity Date Activity User E-Sign Co-Sign Detail Recorded Client Recorded Date Recorded By Document 09/21/17 13:52 MW [id number] 09/21/17 13:58 MW 09/21/17 13:52 Wound Center Nurse 2 #2 LEFT ALEX ULCER -Time 13:15 -Correct Patient Yes -Correct Side, Site, Position Yes -Correct Procedure Yes -Procedure Performed Yes -Type of Procedure Debridement -Clinical Debridement Subcutaneous -Post Debridement Size (cm) - Length 0.5 -Post Debridement Size (cm) - Width 0.7 -Post Debridement Size (cm) - Depth 0.1 -Total Square Cm 0.35 -Wound/Ulcer Outcome Not Healed -Ulcer Cleansing Rinsed/ Irrigated with Saline -Foul Odor after Cleansing No -Bioengineered Tissue No -Bleeding Controlled with Pressure -Treatment Response Procedure Tolerated Well Pain Scale: 0-10 Numeric Is Patient Pain Free? Yes Wound debrided: L alex cluster and proximal L alex ulcer Laterality: Left Wound Grade/Stage: full thickness VLU Type of Debridement: Excisional debridement Anesthesia Used: 4% Lidocaine Solution Depth: Down to and including healthy tissue, in the subcutaneous layer Percentage of wound debrided: 100 Instrument Used: 3mm curette Tissue Removed: fibrous slough Severity: Fat Layer Exposed Amount of bleeding with debridement: Mild Bleeding Controlled with: Pressure, Compression and gauze Patient tolerated procedure well Assessment/Plan Active Problems Venous insufficiency (chronic) (peripheral) (Chronic) Non-pressure chronic ulcer of other part of left lower leg with fat layer exposed (Acute) Bilateral leg edema (Chronic) 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) Assessment: See diagnoses Plan: SQ/excisional debridement of L alex ulcers. Reviewed vascular testing. Discussed importance of tight blood sugar control, adequate nutrition especially increased protein intake, to promote healing. Discussed importance of edema control--recommended leg elevation above her heart while resting or sleeping, avoiding idle sitting or standing, compression of at least 20-30 mmHg, increased activity, weight management. Pt not having much pain, no need to take NSAIDs. Continue increased compression with 3M 2-laycer coban wrap to LLE. Home stocking to R leg in AM, remove before sleep. Collagen hydrogel, aquacel ag, to L alex ulcers. Recommended referral to vascular surgery again, but patient no longer wants to see a vascular surgeon and wants to control her leg edema with compression stockings. Advised pt that stockings need replaced every 3 months -- she can also purchase 4 pairs, and rotate them, and these will last for 1 year. Monitor for redness, pus, malodor, warmth, inc pain as well as for N/V/F/C and call or go to the ED with these. Cont 3M 2-layer coban wrap LLE. Return in 1 week with me, nurse visit wednesday. Call with questions.
--- NOTE | 2017-09-21 14:21 | PN.PCM_ITS ---
(1) Non-pressure chronic ulcer of other part of left lower leg with fat layer exposed Status: Acute Current Visit: Yes Code(s): L97.822 - Non-pressure chronic ulcer of other part of left lower leg with fat layer exposed (2) Type 2 diabetes mellitus with other circulatory complications Status: Chronic Current Visit: Yes Code(s): E11.59 - Type 2 diabetes mellitus with other circulatory complications (3) Venous insufficiency (chronic) (peripheral) Status: Chronic Current Visit: Yes Code(s): I87.2 - Venous insufficiency ( chronic) (peripheral) (4) Bilateral leg edema Status: Chronic Current Visit: Yes Code(s): R60.0 - Localized edema Type of Wound Date of Service: 09/21/17 Chief Complaint: Non-healing ulcer R leg History of Wound: 71 year old diabetic woman with 2-3 week history of non- healing ulcer R alex. Pt states it started as a blister and opened. She was started on PO Keflex by her PCP and she has been applying hydrogel and telfa pads. She was referred her by her PCP due to no improvment in her leg ulceration. Has never had lower extremity vascular testing. Has not had recent blood work. Non-smoker. Blood sugar well-controlled, most recent A1c almost 1 year ago however and was 7.2. Pt does have CKD as well. No hx of CHF that she is aware of. Admits to sleeping in a recliner at night. Does not wear compression on her legs. 07/27-Has been trying to keep her legs elevated. Tolerated size F spandagrip, hydrofera blue well, but dressing adhered to the ulceration today. Vascular testing scheduled for next week. Pre-albumin low, emphasized importance of adequate nutrition today. 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 08/03--Has been trying to keep her legs elevated. Tolerated size F spandagrip, adaptic, and hydrofera blue well Vascular testing done and reveals normal BART[place]O but venous insufficiency bilateral. Pre-albumin low, emphasized importance of adequate nutrition today. 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 I did recommend referral to a vascular surgeon for venous insufficiency, but patient defers for now and would like to wait until her ulcer heals. 08/10--Improved with adaptic, hydrofera blue, and 3M 2-layer coban wrap for edema. The wrap did fall a few inches, so it will be wrapped higher today to hopefully prevent this. Pt did return on Wednesday for a nurse visit for compression wrap change. Tolerated wrap well, and was able to keep it dry. Ulcer measuring smaller. Discussed vascular surgeon once again, and pt defers this referral until after the ulcer heals. She states she wants to see Dr. Barnett at his office after the ulcer heals. She has been elevating her legs, increasing activity, avoiding idle sitting or standing. She does not have pain, so she does not need to take anti-inflammatory medications. She has been trying to lose weight. 08/17-- Improved with adaptic, hydrofera blue, and 3M 2-layer coban wrap for edema. The 3M 2-layer coban stayed in place this week. Tolerated wrap well, and was able to keep it dry. Ulcer measuring smaller. Discussed vascular surgeon once again, and pt defers this referral until after the ulcer heals. She states she wants to see Dr. Barnett at his office after the ulcer heals. She has been elevating her legs, increasing activity, avoiding idle sitting or standing. She does not have pain, so she does not need to take anti-inflammatory medications. She has been trying to lose weight. Pt is diabetic with blood sugar 147 mg/dL this AM. 08/24--Improved with adaptic, hydrofera blue, and 3M 2- layer coban wrap for edema. The 3M 2-layer coban stayed in place this week. Tolerated wrap well, and was able to keep it dry. Ulcer measuring smaller, now almost healed. Pt now states she does not want to see a vascular surgeon. She has been elevating her legs, increasing activity, avoiding idle sitting or standing. She does not have pain, so she does not need to take anti- inflammatory medications. She has been trying to lose weight. Pt is diabetic with blood sugar 129 mg/dL this AM. 08/31--Healed with adaptic, hydrofera blue, and 3M 2-layer coban wrap for edema. The 3M 2-layer coban stayed in place this week. Tolerated wrap well, and was able to keep it dry. Ulcer measuring smaller, now almost healed. Pt now states she does not want to see a vascular surgeon. She has been elevating her legs, increasing activity, avoiding idle sitting or standing. She does not have pain, so she does not need to take anti- inflammatory medications. She has been trying to lose weight. Pt is diabetic with blood sugar 133 mg/dL this AM. Now has LLE swelling. 09/07--R alex remains healed. L alex with new superficial open lesion. Will treat with adaptic, collagen hydrogel, and dry dressing with 3M 2-layer coban wrap similar to RLE. Denies N/V/F/C. Denies pus,malodor, warmth, pain. No debridement L alex today. Pt will wear home stocking on the R, apply in AM and remove before sleep. She did come Wednesday for nurse visit. She will return again on Wednesday for a nurse visit for compression wrap change. 09/21--L alex ulcer stable, now with cluster distal L alex due to blisters. Pt kept her leg down without compression last wednesday, returned on wednesday for nurse visit but ended up seeing Dr. Nova. Today, will continue 3M 2-layer coban wrap, and switch to aquacel ag rather than hydrofera blue. Progress of Wound: stable, new ulcer cluster distal L alex - Physical Exam Vital Signs Temp Pulse Resp BP 97.1 F L 87 18 179/78 H 09/21/17 12:56 09/21/17 12:56 09/21/17 12:56 09/21/17 12:56 General: Alert, Oriented x3, Cooperative, No apparent distress Skin: Ulcer/ Wound - L alex x 2 (including cluster distally) with no erythema, no pus, no malodor, no warmth, no pain. No clinical signs of acute bacterial infection noted. See wound/edema assessment below. Wound Measurements and Assessment WC - Nurse 1 - General Ulcer Measurement Start: 09/21/17 12:56 Freq: Status: Active Protocol: Activity Type Activity Date Activity User E-Sign Co-Sign Detail Recorded Client Recorded Date Recorded By Document 09/21/17 12:56 RORO [id number] 09/21/17 13:05 RB 09/21/17 12:56 Wound Center Nurse 1 [Ulcer Assessment] #2 LEFT ALEX ULCER -Combined with other wound No -Current Size (cm) - Length 0.4 -Current Size (cm) - Width 0.5 -Current Size (cm) - Depth 0.1 -Total Square Cm 0.20 -Photo Taken No -Tunneling No -Undermining/Tunneling No -Circular Undermining No -Classification - Thickness Full Thickness without Exposed Support Structure -Exudate Amt Small (1-33%) -Exudate Type Serosanguineous -Wound Margin Distinct, Outline Attached -Granulation Amt Large (67-100%) -Granulation Quality [place] -Slough/Fibrin Yes -Necrosis Amt Small (1-33%) -Necrotic Tissue Type Adherent Slough -Structure Exposed N/A -Texture (Cary-wound Skin Appearance) Assessed -Moisture (Cary-wound Skin Appearance Assessed ) -Color (Cary-wound Skin Appearance) Assessed -Temperature (Cary-wound Skin No Abnormality Appearance) (Pt Warm) -Tenderness on Palpation (Cary-wound No Skin Appearance) -Ulcer Cleansing Rinsed/ Irrigated with Saline -Foul Odor after Cleansing No -Anesthetic Used 5% Lidocaine Gel [Edema Assessment] -Lower Limb Edema Present Yes -Left Calf (cm) 48.5 -Left Ankle (cm) 23.2 WC - Nurse 2 - General Ulcer CM Notes Start: 09/21/17 12:56 Freq: Status: Active Protocol: Activity Type Activity Date Activity User E-Sign Co-Sign Detail Recorded Client Recorded Date Recorded By Document 09/21/17 13:52 MW [id number] 09/21/17 13:58 MW 09/21/17 13:52 Wound Center Nurse 2 [Procedure/Treatment] #2 LEFT ALEX ULCER -Time 13:15 -Correct Patient Yes -Correct Side, Site, Position Yes -Correct Procedure Yes -Procedure Performed Yes -Type of Procedure Debridement -Clinical Debridement Subcutaneous -Post Debridement Size (cm) - Length 0.5 -Post Debridement Size (cm) - Width 0.7 -Post Debridement Size (cm) - Depth 0.1 -Total Square Cm 0.35 -Wound/Ulcer Outcome Not Healed -Ulcer Cleansing Rinsed/ Irrigated with Saline -Foul Odor after Cleansing No -Bioengineered Tissue No -Bleeding Controlled with Pressure -Treatment Response Procedure Tolerated Well [See Physician Procedure note for Specifics] Pain Scale: 0-10 Numeric [Pain] -Is Patient Pain Free? Yes Debridement Note Post-Debridement Measurements/Treatment WC - Nurse 2 - General Ulcer CM Notes Start: 09/21/17 12:56 Freq: Status: Active Protocol: Activity Type Activity Date Activity User E-Sign Co-Sign Detail Recorded Client Recorded Date Recorded By Document 09/21/17 13:52 MW [id number] 09/21/17 13:58 MW 09/21/17 13:52 Wound Center Nurse 2 #2 LEFT ALEX ULCER -Time 13:15 -Correct Patient Yes -Correct Side, Site, Position Yes -Correct Procedure Yes -Procedure Performed Yes -Type of Procedure Debridement -Clinical Debridement Subcutaneous -Post Debridement Size (cm) - Length 0.5 -Post Debridement Size (cm) - Width 0.7 -Post Debridement Size (cm) - Depth 0.1 -Total Square Cm 0.35 -Wound/Ulcer Outcome Not Healed -Ulcer Cleansing Rinsed/ Irrigated with Saline -Foul Odor after Cleansing No -Bioengineered Tissue No -Bleeding Controlled with Pressure -Treatment Response Procedure Tolerated Well Pain Scale: 0-10 Numeric Is Patient Pain Free? Yes Wound debrided: L alex cluster and proximal L alex ulcer Laterality: Left Wound Grade/Stage: full thickness VLU Type of Debridement: Excisional debridement Anesthesia Used: 4% Lidocaine Solution Depth: Down to and including healthy tissue, in the subcutaneous layer Percentage of wound debrided: 100 Instrument Used: 3mm curette Tissue Removed: fibrous slough Severity: Fat Layer Exposed Amount of bleeding with debridement: Mild Bleeding Controlled with: Pressure, Compression and gauze Patient tolerated procedure well Assessment/Plan Active Problems Venous insufficiency (chronic) (peripheral) (Chronic) Non-pressure chronic ulcer of other part of left lower leg with fat layer exposed (Acute) Bilateral leg edema (Chronic) 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) Assessment: See diagnoses Plan: SQ/excisional debridement of L alex ulcers. Reviewed vascular testing. Discussed importance of tight blood sugar control, adequate nutrition especially increased protein intake, to promote healing. Discussed importance of edema control--recommended leg elevation above her heart while resting or sleeping, avoiding idle sitting or standing, compression of at least 20-30 mmHg , increased activity, weight management. Pt not having much pain, no need to take NSAIDs. Continue increased compression with 3M 2-laycer coban wrap to LLE. Home stocking to R leg in AM, remove before sleep. Collagen hydrogel, aquacel ag, to L alex ulcers. Recommended referral to vascular surgery again, but patient no longer wants to see a vascular surgeon and wants to control her leg edema with compression stockings. Advised pt that stockings need replaced every 3 months -- she can also purchase 4 pairs, and rotate them, and these will last for 1 year. Monitor for redness, pus, malodor, warmth, inc pain as well as for N/V/F/C and call or go to the ED with these. Cont 3M 2-layer coban wrap LLE. Return in 1 week with me, nurse visit wednesday. Call with questions.
[2017-09-24 11:01] VITALS: BP 155/73; PULSE 71; RESP 20; TEMP 36.4
[2017-09-28 13:17] VITALS: BP 153/90; PULSE 83; RESP 16; TEMP 37.2
--- NOTE | 2017-09-28 13:55 | PCM.WC.PN ---
(1) Non-pressure chronic ulcer of other part of left lower leg with fat layer exposed Status: Acute Current Visit: Yes Code(s): L97.822 - Non-pressure chronic ulcer of other part of left lower leg with fat layer exposed (2) Type 2 diabetes mellitus with other circulatory complications Status: Chronic Current Visit: Yes Code(s): E11.59 - Type 2 diabetes mellitus with other circulatory complications (3) Venous insufficiency (chronic) (peripheral) Status: Chronic Current Visit: Yes Code(s): I87.2 - Venous insufficiency (chronic) (peripheral) (4) Bilateral leg edema Status: Chronic Current Visit: Yes Code(s): R60.0 - Localized edema Type of Wound Date of Service: 09/28/17 Chief Complaint: Non-healing ulcer R leg History of Wound: 71 year old diabetic woman with 2-3 week history of non-healing ulcer R alex. Pt states it started as a blister and opened. She was started on PO Keflex by her PCP and she has been applying hydrogel and telfa pads. She was referred her by her PCP due to no improvment in her leg ulceration. Has never had lower extremity vascular testing. Has not had recent blood work. Non-smoker. Blood sugar well-controlled, most recent A1c almost 1 year ago however and was 7.2. Pt does have CKD as well. No hx of CHF that she is aware of. Admits to sleeping in a recliner at night. Does not wear compression on her legs. 07/27-Has been trying to keep her legs elevated. Tolerated size F spandagrip, hydrofera blue well, but dressing adhered to the ulceration today. Vascular testing scheduled for next week. Pre-albumin low, emphasized importance of adequate nutrition today. WBC, RBC, Hgb as well as other labs abnormal, will fax results to the patient's PCP so he can decide if she needs referral back to her community coordinator. 08/03--Has been trying to keep her legs elevated. Tolerated size F spandagrip, adaptic, and hydrofera blue well Vascular testing done and reveals normal [place] but venous insufficiency bilateral. Pre-albumin low, emphasized importance of adequate nutrition today. WBC, RBC, Hgb as well as other labs abnormal, will fax results to the patient's PCP so he can decide if she needs referral back to her community coordinator. I did recommend referral to a vascular surgeon for venous insufficiency, but patient defers for now and would like to wait until her ulcer heals. 08/10--Improved with adaptic, hydrofera blue, and 3M 2-layer coban wrap for edema. The wrap did fall a few inches, so it will be wrapped higher today to hopefully prevent this. Pt did return on Wednesday for a nurse visit for compression wrap change. Tolerated wrap well, and was able to keep it dry. Ulcer measuring smaller. Discussed vascular surgeon once again, and pt defers this referral until after the ulcer heals. She states she wants to see Dr. Barnett at his office after the ulcer heals. She has been elevating her legs, increasing activity, avoiding idle sitting or standing. She does not have pain, so she does not need to take anti-inflammatory medications. She has been trying to lose weight. 08/17--Improved with adaptic, hydrofera blue, and 3M 2-layer coban wrap for edema. The 3M 2-layer coban stayed in place this week. Tolerated wrap well, and was able to keep it dry. Ulcer measuring smaller. Discussed vascular surgeon once again, and pt defers this referral until after the ulcer heals. She states she wants to see Dr. Barnett at his office after the ulcer heals. She has been elevating her legs, increasing activity, avoiding idle sitting or standing. She does not have pain, so she does not need to take anti-inflammatory medications. She has been trying to lose weight. Pt is diabetic with blood sugar 147 mg/dL this AM. 08/24--Improved with adaptic, hydrofera blue, and 3M 2-layer coban wrap for edema. The 3M 2-layer coban stayed in place this week. Tolerated wrap well, and was able to keep it dry. Ulcer measuring smaller, now almost healed. Pt now states she does not want to see a vascular surgeon. She has been elevating her legs, increasing activity, avoiding idle sitting or standing. She does not have pain, so she does not need to take anti-inflammatory medications. She has been trying to lose weight. Pt is diabetic with blood sugar 129 mg/dL this AM. 08/31--Healed with adaptic, hydrofera blue, and 3M 2-layer coban wrap for edema. The 3M 2-layer coban stayed in place this week. Tolerated wrap well, and was able to keep it dry. Ulcer measuring smaller, now almost healed. Pt now states she does not want to see a vascular surgeon. She has been elevating her legs, increasing activity, avoiding idle sitting or standing. She does not have pain, so she does not need to take anti-inflammatory medications. She has been trying to lose weight. Pt is diabetic with blood sugar 133 mg/dL this AM. Now has LLE swelling. 09/07--R alex remains healed. L alex with new superficial open lesion. Will treat with adaptic, collagen hydrogel, and dry dressing with 3M 2-layer coban wrap similar to RLE. Denies N/V/F/C. Denies pus,malodor, warmth, pain. No debridement L alex today. Pt will wear home stocking on the R, apply in AM and remove before sleep. She did come Wednesday for nurse visit. She will return again on Wednesday for a nurse visit for compression wrap change. 09/21--L alex ulcer stable, now with cluster distal L alex due to blisters. Pt kept her leg down without compression last wednesday, returned on wednesday for nurse visit but ended up seeing Dr. Nova. Today, will continue 3M 2-layer coban wrap, and switch to aquacel ag rather than hydrofera blue. 09/28--Improved with collagen hydrogel, aquacel ag, 3M 2-layer coban wrap. Distal alex ulcer healed, proximal ulcer improved. Denies s/s of acute bacterial infection. Did return last wednesday for nurse visit for wrap change. Progress of Wound: improved, ulcer cluster distal L alex has healed - Physical Exam Vital Signs Temp Pulse Resp BP 98.9 F 83 16 153/90 H 09/28/17 13:17 09/28/17 13:17 09/28/17 13:17 09/28/17 13:17 General: Alert, Oriented x3, Cooperative, No apparent distress Skin: Ulcer/ Wound - L alex with no erythema, no pus, no malodor, no increased warmth. No clinical signs of acute bacterial infection noted. See wound/edema assessment below. L distal alex healed. Wound Measurements and Assessment WC - Nurse 1 - General Ulcer Measurement Start: 09/21/17 12:56 Freq: Status: Active Protocol: Activity Type Activity Date Activity User E-Sign Co-Sign Detail Recorded Client Recorded Date Recorded By Document 09/28/17 13:17 BM [id number] 09/28/17 13:21 BMF 09/28/17 13:17 Wound Center Nurse 1 [Ulcer Assessment] #2 LEFT ALEX ULCER -Combined with other wound No -Current Size (cm) - Length 1.3 -Current Size (cm) - Width 0.8 -Current Size (cm) - Depth 0.1 -Total Square Cm 1.04 -Photo Taken No -Epithelialization Small 1-33% -Tunneling No -Undermining/Tunneling No -Exudate Amt Small (1-33%) -Exudate Type Serosanguineous -Wound Margin Distinct, Outline Attached -Granulation Amt Large (67-100%) -Granulation Quality Red -Slough/Fibrin No -Necrosis Amt None Present (0 %) -Structure Exposed None/Limited to Skin Breakdown -Texture (Cary-wound Skin Appearance) Scarring -Moisture (Cary-wound Skin Appearance Dry/Scaly ) -Color (Cary-wound Skin Appearance) Erythema -Temperature (Cary-wound Skin No Abnormality Appearance) (Pt Warm) -Tenderness on Palpation (Cary-wound Yes Skin Appearance) -Ulcer Cleansing Wound Cleanser -Foul Odor after Cleansing No -Anesthetic Used 4% Lidocaine Solution [Edema Assessment] -Lower Limb Edema Present Yes -Left Calf (cm) 39.2 -Left Ankle (cm) 22 WC - Nurse 2 - General Ulcer CM Notes Start: 09/21/17 12:56 Freq: Status: Active Protocol: Activity Type Activity Date Activity User E-Sign Co-Sign Detail Recorded Client Recorded Date Recorded By Document 09/28/17 13:42 MW [id number] 09/28/17 13:45 MW 09/28/17 13:42 Wound Center Nurse 2 [Procedure/Treatment] #2 LEFT ALEX ULCER -Time 13:42 -Correct Patient Yes -Correct Side, Site, Position Yes -Correct Procedure Yes -Procedure Performed Yes -Type of Procedure Debridement -Clinical Debridement Subcutaneous -Post Debridement Size (cm) - Length 1.9 -Post Debridement Size (cm) - Width 1.2 -Post Debridement Size (cm) - Depth 0.1 -Total Square Cm 2.28 -Wound/Ulcer Outcome Not Healed -Ulcer Cleansing Rinsed/ Irrigated with Saline -Foul Odor after Cleansing No -Bioengineered Tissue No -Bleeding Controlled with Pressure Silver Nitrate -Treatment Response Procedure Tolerated Well [See Physician Procedure note for Specifics] Pain Scale: 0-10 Numeric [Pain] -Is Patient Pain Free? Yes Debridement Note Post-Debridement Measurements/Treatment WC - Nurse 2 - General Ulcer CM Notes Start: 09/21/17 12:56 Freq: Status: Active Protocol: Activity Type Activity Date Activity User E-Sign Co-Sign Detail Recorded Client Recorded Date Recorded By Document 09/21/17 13:52 MW [id number] 09/21/17 13:58 MW Document 09/28/17 13:42 MW [id number] 09/28/17 13:45 MW 09/21/17 09/28/17 13:52 13:42 Wound Center Nurse 2 #2 LEFT ALEX ULCER -Time 13:15 13:42 -Correct Patient Yes Yes -Correct Side, Site, Position Yes Yes -Correct Procedure Yes Yes -Procedure Performed Yes Yes -Type of Procedure Debridement Debridement -Clinical Debridement Subcutaneous Subcutaneous -Post Debridement Size (cm) - Length 0.5 1.9 -Post Debridement Size (cm) - Width 0.7 1.2 -Post Debridement Size (cm) - Depth 0.1 0.1 -Total Square Cm 0.35 2.28 -Wound/Ulcer Outcome Not Healed Not Healed -Ulcer Cleansing Rinsed/ Rinsed/ Irrigated with Irrigated with Saline Saline -Foul Odor after Cleansing No No -Bioengineered Tissue No No -Bleeding Controlled with Pressure Pressure Silver Nitrate -Treatment Response Procedure Procedure Tolerated Well Tolerated Well Pain Scale: 0-10 Numeric Is Patient Pain Free? Yes Yes Wound debrided: L alex Laterality: Left Wound Grade/Stage: full thickness VLU Type of Debridement: Excisional debridement Anesthesia Used: 4% Lidocaine Solution Depth: Down to and including healthy tissue, in the subcutaneous layer Percentage of wound debrided: 100 Instrument Used: 3mm curette Tissue Removed: fibrous slough Severity: Fat Layer Exposed Amount of bleeding with debridement: Mild Bleeding Controlled with: Pressure, Compression and gauze Patient tolerated procedure well Assessment/Plan Active Problems Venous insufficiency (chronic) (peripheral) (Chronic) Non-pressure chronic ulcer of other part of left lower leg with fat layer exposed (Acute) Bilateral leg edema (Chronic) 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) Assessment: See diagnoses Plan: SQ/excisional debridement of L alex ulcer. Reviewed vascular testing. Discussed importance of tight blood sugar control, adequate nutrition especially increased protein intake, to promote healing. Discussed importance of edema control--recommended leg elevation above her heart while resting or sleeping, avoiding idle sitting or standing, compression of at least 20-30 mmHg, increased activity, weight management. Pt not having much pain, no need to take NSAIDs. Continue increased compression with 3M 2-laycer coban wrap to LLE. Home stocking to R leg in AM, remove before sleep. Collagen hydrogel, aquacel ag, to L alex ulcers. Recommended referral to vascular surgery again, but patient no longer wants to see a vascular surgeon and wants to control her leg edema with compression stockings. Advised pt that stockings need replaced every 3 months -- she can also purchase 4 pairs, and rotate them, and these will last for 1 year. Monitor for redness, pus, malodor, warmth, inc pain as well as for N/V/F/C and call or go to the ED with these. Cont 3M 2-layer coban wrap LLE. Return in 1 week with me, nurse visit wednesday. Call with questions.
--- NOTE | 2017-09-28 13:58 | PN.PCM_ITS ---
(1) Non-pressure chronic ulcer of other part of left lower leg with fat layer exposed Status: Acute Current Visit: Yes Code(s): L97.822 - Non-pressure chronic ulcer of other part of left lower leg with fat layer exposed (2) Type 2 diabetes mellitus with other circulatory complications Status: Chronic Current Visit: Yes Code(s): E11.59 - Type 2 diabetes mellitus with other circulatory complications (3) Venous insufficiency (chronic) (peripheral) Status: Chronic Current Visit: Yes Code(s): I87.2 - Venous insufficiency ( chronic) (peripheral) (4) Bilateral leg edema Status: Chronic Current Visit: Yes Code(s): R60.0 - Localized edema Type of Wound Date of Service: 09/28/17 Chief Complaint: Non-healing ulcer R leg History of Wound: 71 year old diabetic woman with 2-3 week history of non- healing ulcer R alex. Pt states it started as a blister and opened. She was started on PO Keflex by her PCP and she has been applying hydrogel and telfa pads. She was referred her by her PCP due to no improvment in her leg ulceration. Has never had lower extremity vascular testing. Has not had recent blood work. Non-smoker. Blood sugar well-controlled, most recent A1c almost 1 year ago however and was 7.2. Pt does have CKD as well. No hx of CHF that she is aware of. Admits to sleeping in a recliner at night. Does not wear compression on her legs. 07/27-Has been trying to keep her legs elevated. Tolerated size F spandagrip, hydrofera blue well, but dressing adhered to the ulceration today. Vascular testing scheduled for next week. Pre-albumin low, emphasized importance of adequate nutrition today. 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 08/03--Has been trying to keep her legs elevated. Tolerated size F spandagrip, adaptic, and hydrofera blue well Vascular testing done and reveals normal BARTOLO but venous insufficiency bilateral. Pre-albumin low, emphasized importance of adequate nutrition today. 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 I did recommend referral to a vascular surgeon for venous insufficiency, but patient defers for now and would like to wait until her ulcer heals. 08/10--Improved with adaptic, hydrofera blue, and 3M 2-layer coban wrap for edema. The wrap did fall a few inches, so it will be wrapped higher today to hopefully prevent this. Pt did return on Wednesday for a nurse visit for compression wrap change. Tolerated wrap well, and was able to keep it dry. Ulcer measuring smaller. Discussed vascular surgeon once again, and pt defers this referral until after the ulcer heals. She states she wants to see Dr. Barnett at his office after the ulcer heals. She has been elevating her legs, increasing activity, avoiding idle sitting or standing. She does not have pain, so she does not need to take anti-inflammatory medications. She has been trying to lose weight. 08/17-- Improved with adaptic, hydrofera blue, and 3M 2-layer coban wrap for edema. The 3M 2-layer coban stayed in place this week. Tolerated wrap well, and was able to keep it dry. Ulcer measuring smaller. Discussed vascular surgeon once again, and pt defers this referral until after the ulcer heals. She states she wants to see Dr. Barnett at his office after the ulcer heals. She has been elevating her legs, increasing activity, avoiding idle sitting or standing. She does not have pain, so she does not need to take anti-inflammatory medications. She has been trying to lose weight. Pt is diabetic with blood sugar 147 mg/dL this AM. 08/24--Improved with adaptic, hydrofera blue, and 3M 2- layer coban wrap for edema. The 3M 2-layer coban stayed in place this week. Tolerated wrap well, and was able to keep it dry. Ulcer measuring smaller, now almost healed. Pt now states she does not want to see a vascular surgeon. She has been elevating her legs, increasing activity, avoiding idle sitting or standing. She does not have pain, so she does not need to take anti- inflammatory medications. She has been trying to lose weight. Pt is diabetic with blood sugar 129 mg/dL this AM. 08/31--Healed with adaptic, hydrofera blue, and 3M 2-layer coban wrap for edema. The 3M 2-layer coban stayed in place this week. Tolerated wrap well, and was able to keep it dry. Ulcer measuring smaller, now almost healed. Pt now states she does not want to see a vascular surgeon. She has been elevating her legs, increasing activity, avoiding idle sitting or standing. She does not have pain, so she does not need to take anti- inflammatory medications. She has been trying to lose weight. Pt is diabetic with blood sugar 133 mg/dL this AM. Now has LLE swelling. 09/07--R alex remains healed. L alex with new superficial open lesion. Will treat with adaptic, collagen hydrogel, and dry dressing with 3M 2-layer coban wrap similar to RLE. Denies N/V/F/C. Denies pus,malodor, warmth, pain. No debridement L alex today. Pt will wear home stocking on the R, apply in AM and remove before sleep. She did come Wednesday for nurse visit. She will return again on Wednesday for a nurse visit for compression wrap change. 09/21--L alex ulcer stable, now with cluster distal L alex due to blisters. Pt kept her leg down without compression last wednesday, returned on wednesday for nurse visit but ended up seeing Dr. Nova. Today, will continue 3M 2-layer coban wrap, and switch to aquacel ag rather than hydrofera blue. 09/28--Improved with collagen hydrogel, aquacel ag, 3M 2-layer coban wrap. Distal alex ulcer healed, proximal ulcer improved. Denies s/s of acute bacterial infection. Did return last wednesday for nurse visit for wrap change. Progress of Wound: improved, ulcer cluster distal L alex has healed - Physical Exam Vital Signs Temp Pulse Resp BP 98.9 F 83 16 153/90 H 09/28/17 13:17 09/28/17 13:17 09/28/17 13:17 09/28/17 13:17 General: Alert, Oriented x3, Cooperative, No apparent distress Skin: Ulcer/ Wound - L alex with no erythema, no pus, no malodor, no increased warmth. No clinical signs of acute bacterial infection noted. See wound/edema assessment below. L distal alex healed. Wound Measurements and Assessment WC - Nurse 1 - General Ulcer Measurement Start: 09/21/17 12:56 Freq: Status: Active Protocol: Activity Type Activity Date Activity User E-Sign Co-Sign Detail Recorded Client Recorded Date Recorded By Document 09/28/17 13:17 BM [id number] 09/28/17 13:21 BMF 09/28/17 13:17 Wound Center Nurse 1 [Ulcer Assessment] #2 LEFT ALEX ULCER -Combined with other wound No -Current Size (cm) - Length 1.3 -Current Size (cm) - Width 0.8 -Current Size (cm) - Depth 0.1 -Total Square Cm 1.04 -Photo Taken No -Epithelialization Small 1-33% -Tunneling No -Undermining/Tunneling No -Exudate Amt Small (1-33%) -Exudate Type Serosanguineous -Wound Margin Distinct, Outline Attached -Granulation Amt Large (67-100%) -Granulation Quality Red -Slough/Fibrin No -Necrosis Amt None Present (0 %) -Structure Exposed None/Limited to Skin Breakdown -Texture (Cary-wound Skin Appearance) Scarring -Moisture (Cary-wound Skin Appearance Dry/Scaly ) -Color (Cary-wound Skin Appearance) Erythema -Temperature (Cary-wound Skin No Abnormality Appearance) (Pt Warm) -Tenderness on Palpation (Cary-wound Yes Skin Appearance) -Ulcer Cleansing Wound Cleanser -Foul Odor after Cleansing No -Anesthetic Used 4% Lidocaine Solution [Edema Assessment] -Lower Limb Edema Present Yes -Left Calf (cm) 39.2 -Left Ankle (cm) 22 WC - Nurse 2 - General Ulcer CM Notes Start: 09/21/17 12:56 Freq: Status: Active Protocol: Activity Type Activity Date Activity User E-Sign Co-Sign Detail Recorded Client Recorded Date Recorded By Document 09/28/17 13:42 MW [id number] 09/28/17 13:45 MW 09/28/17 13:42 Wound Center Nurse 2 [Procedure/Treatment] #2 LEFT ALEX ULCER -Time 13:42 -Correct Patient Yes -Correct Side, Site, Position Yes -Correct Procedure Yes -Procedure Performed Yes -Type of Procedure Debridement -Clinical Debridement Subcutaneous -Post Debridement Size (cm) - Length 1.9 -Post Debridement Size (cm) - Width 1.2 -Post Debridement Size (cm) - Depth 0.1 -Total Square Cm 2.28 -Wound/Ulcer Outcome Not Healed -Ulcer Cleansing Rinsed/ Irrigated with Saline -Foul Odor after Cleansing No -Bioengineered Tissue No -Bleeding Controlled with Pressure Silver Nitrate -Treatment Response Procedure Tolerated Well [See Physician Procedure note for Specifics] Pain Scale: 0-10 Numeric [Pain] -Is Patient Pain Free? Yes Debridement Note Post-Debridement Measurements/Treatment WC - Nurse 2 - General Ulcer CM Notes Start: 09/21/17 12:56 Freq: Status: Active Protocol: Activity Type Activity Date Activity User E-Sign Co-Sign Detail Recorded Client Recorded Date Recorded By Document 09/21/17 13:52 MW [id number] 09/21/17 13:58 MW Document 09/28/17 13:42 MW [id number] 09/28/17 13:45 MW 09/21/17 09/28/17 13:52 13:42 Wound Center Nurse 2 #2 LEFT ALEX ULCER -Time 13:15 13:42 -Correct Patient Yes Yes -Correct Side, Site, Position Yes Yes -Correct Procedure Yes Yes -Procedure Performed Yes Yes -Type of Procedure Debridement Debridement -Clinical Debridement Subcutaneous Subcutaneous -Post Debridement Size (cm) - Length 0.5 1.9 -Post Debridement Size (cm) - Width 0.7 1.2 -Post Debridement Size (cm) - Depth 0.1 0.1 -Total Square Cm 0.35 2.28 -Wound/Ulcer Outcome Not Healed Not Healed -Ulcer Cleansing Rinsed/ Rinsed/ Irrigated with Irrigated with Saline Saline -Foul Odor after Cleansing No No -Bioengineered Tissue No No -Bleeding Controlled with Pressure Pressure Silver Nitrate -Treatment Response Procedure Procedure Tolerated Well Tolerated Well Pain Scale: 0-10 Numeric Is Patient Pain Free? Yes Yes Wound debrided: L alex Laterality: Left Wound Grade/Stage: full thickness VLU Type of Debridement: Excisional debridement Anesthesia Used: 4% Lidocaine Solution Depth: Down to and including healthy tissue, in the subcutaneous layer Percentage of wound debrided: 100 Instrument Used: 3mm curette Tissue Removed: fibrous slough Severity: Fat Layer Exposed Amount of bleeding with debridement: Mild Bleeding Controlled with: Pressure, Compression and gauze Patient tolerated procedure well Assessment/Plan Active Problems Venous insufficiency (chronic) (peripheral) (Chronic) Non-pressure chronic ulcer of other part of left lower leg with fat layer exposed (Acute) Bilateral leg edema (Chronic) 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) Assessment: See diagnoses Plan: SQ/excisional debridement of L alex ulcer. Reviewed vascular testing. Discussed importance of tight blood sugar control, adequate nutrition especially increased protein intake, to promote healing. Discussed importance of edema control--recommended leg elevation above her heart while resting or sleeping, avoiding idle sitting or standing, compression of at least 20-30 mmHg , increased activity, weight management. Pt not having much pain, no need to take NSAIDs. Continue increased compression with 3M 2-laycer coban wrap to LLE. Home stocking to R leg in AM, remove before sleep. Collagen hydrogel, aquacel ag, to L alex ulcers. Recommended referral to vascular surgery again, but patient no longer wants to see a vascular surgeon and wants to control her leg edema with compression stockings. Advised pt that stockings need replaced every 3 months -- she can also purchase 4 pairs, and rotate them, and these will last for 1 year. Monitor for redness, pus, malodor, warmth, inc pain as well as for N/V/F/C and call or go to the ED with these. Cont 3M 2-layer coban wrap LLE. Return in 1 week with me, nurse visit wednesday. Call with questions.
[2017-10-01 14:05] VITALS: BP 148/77; PULSE 86; RESP 16; TEMP 36.2
[2017-10-05 13:36] VITALS: BP 136/76; PULSE 73; RESP 16; TEMP 36
--- NOTE | 2017-10-05 15:14 | PCM.WC.PN ---
(1) Non-pressure chronic ulcer of other part of left lower leg with fat layer exposed Status: Acute Current Visit: Yes Code(s): L97.822 - Non-pressure chronic ulcer of other part of left lower leg with fat layer exposed (2) Type 2 diabetes mellitus with other circulatory complications Status: Chronic Current Visit: Yes Code(s): E11.59 - Type 2 diabetes mellitus with other circulatory complications (3) Venous insufficiency (chronic) (peripheral) Status: Chronic Current Visit: Yes Code(s): I87.2 - Venous insufficiency (chronic) (peripheral) (4) Bilateral leg edema Status: Chronic Current Visit: Yes Code(s): R60.0 - Localized edema Type of Wound Date of Service: 10/05/17 Chief Complaint: Non-healing ulcer R leg History of Wound: 71 year old diabetic woman with 2-3 week history of non-healing ulcer R alex. Pt states it started as a blister and opened. She was started on PO Keflex by her PCP and she has been applying hydrogel and telfa pads. She was referred her by her PCP due to no improvment in her leg ulceration. Has never had lower extremity vascular testing. Has not had recent blood work. Non-smoker. Blood sugar well-controlled, most recent A1c almost 1 year ago however and was 7.2. Pt does have CKD as well. No hx of CHF that she is aware of. Admits to sleeping in a recliner at night. Does not wear compression on her legs. 07/27-Has been trying to keep her legs elevated. Tolerated size F spandagrip, hydrofera blue well, but dressing adhered to the ulceration today. Vascular testing scheduled for next week. Pre-albumin low, emphasized importance of adequate nutrition today. WBC, RBC, Hgb as well as other labs abnormal, will fax results to the patient's PCP so he can decide if she needs referral back to her [employer] identity management consultant. 08/03--Has been trying to keep her legs elevated. Tolerated size F spandagrip, adaptic, and hydrofera blue well Vascular testing done and reveals normal B[place] but venous insufficiency bilateral. Pre-albumin low, emphasized importance of adequate nutrition today. WBC, RBC, Hgb as well as other labs abnormal, will fax results to the patient's PCP so he can decide if she needs referral back to her [employer] identity management consultant. I did recommend referral to a vascular surgeon for venous insufficiency, but patient defers for now and would like to wait until her ulcer heals. 08/10--Improved with adaptic, hydrofera blue, and 3M 2-layer coban wrap for edema. The wrap did fall a few inches, so it will be wrapped higher today to hopefully prevent this. Pt did return on Wednesday for a nurse visit for compression wrap change. Tolerated wrap well, and was able to keep it dry. Ulcer measuring smaller. Discussed vascular surgeon once again, and pt defers this referral until after the ulcer heals. She states she wants to see Dr. Barnett at his office after the ulcer heals. She has been elevating her legs, increasing activity, avoiding idle sitting or standing. She does not have pain, so she does not need to take anti-inflammatory medications. She has been trying to lose weight. 08/17--Improved with adaptic, hydrofera blue, and 3M 2-layer coban wrap for edema. The 3M 2-layer coban stayed in place this week. Tolerated wrap well, and was able to keep it dry. Ulcer measuring smaller. Discussed vascular surgeon once again, and pt defers this referral until after the ulcer heals. She states she wants to see Dr. Barnett at his office after the ulcer heals. She has been elevating her legs, increasing activity, avoiding idle sitting or standing. She does not have pain, so she does not need to take anti-inflammatory medications. She has been trying to lose weight. Pt is diabetic with blood sugar 147 mg/dL this AM. 08/24--Improved with adaptic, hydrofera blue, and 3M 2-layer coban wrap for edema. The 3M 2-layer coban stayed in place this week. Tolerated wrap well, and was able to keep it dry. Ulcer measuring smaller, now almost healed. Pt now states she does not want to see a vascular surgeon. She has been elevating her legs, increasing activity, avoiding idle sitting or standing. She does not have pain, so she does not need to take anti-inflammatory medications. She has been trying to lose weight. Pt is diabetic with blood sugar 129 mg/dL this AM. 08/31--Healed with adaptic, hydrofera blue, and 3M 2-layer coban wrap for edema. The 3M 2-layer coban stayed in place this week. Tolerated wrap well, and was able to keep it dry. Ulcer measuring smaller, now almost healed. Pt now states she does not want to see a vascular surgeon. She has been elevating her legs, increasing activity, avoiding idle sitting or standing. She does not have pain, so she does not need to take anti-inflammatory medications. She has been trying to lose weight. Pt is diabetic with blood sugar 133 mg/dL this AM. Now has LLE swelling. 09/07--R alex remains healed. L alex with new superficial open lesion. Will treat with adaptic, collagen hydrogel, and dry dressing with 3M 2-layer coban wrap similar to RLE. Denies N/V/F/C. Denies pus,malodor, warmth, pain. No debridement L alex today. Pt will wear home stocking on the R, apply in AM and remove before sleep. She did come Wednesday for nurse visit. She will return again on Wednesday for a nurse visit for compression wrap change. 09/21--L alex ulcer stable, now with cluster distal L alex due to blisters. Pt kept her leg down without compression last wednesday, returned on wednesday for nurse visit but ended up seeing Dr. Nova. Today, will continue 3M 2-layer coban wrap, and switch to aquacel ag rather than hydrofera blue. 09/28--Improved with collagen hydrogel, aquacel ag, 3M 2-layer coban wrap. Distal alex ulcer healed, proximal ulcer improved. Denies s/s of acute bacterial infection. Did return last wednesday for nurse visit for wrap change. 10/05--Improved with collagen hydrogel, aquacel ag and 3M 2-layer coban. Denies s/s of acute bacterial infection. Did return last wednesday for nurse visit for wrap change. Progress of Wound: improved - Physical Exam Vital Signs Temp Pulse Resp BP 96.8 F L 73 16 136/76 H 10/05/17 13:36 10/05/17 13:36 10/05/17 13:36 10/05/17 13:36 General: Alert, Oriented x3, Cooperative, No apparent distress Extremities: Edema Skin: Ulcer/ Wound - L alex with no erythema, no calor, no purulent drainage, no malodor, minimal pain. No clinical signs of acute bacterial infection noted. See wound/edema assessment below. Wound Measurements and Assessment WC - Nurse 1 - General Ulcer Measurement Start: 09/21/17 12:56 Freq: Status: Active Protocol: Activity Type Activity Date Activity User E-Sign Co-Sign Detail Recorded Client Recorded Date Recorded By Document 10/05/17 13:36 BMF [id number] 10/05/17 13:52 BMF 10/05/17 13:36 Wound Center Nurse 1 [Ulcer Assessment] #2 LEFT ALEX ULCER -Combined with other wound No -Current Size (cm) - Length 0.4 -Current Size (cm) - Width 0.2 -Current Size (cm) - Depth 0.2 -Total Square Cm 0.08 -Photo Taken No -Epithelialization Small 1-33% -Tunneling No -Undermining/Tunneling No -Circular Undermining No -Exudate Amt Small (1-33%) -Exudate Type Serosanguineous -Wound Margin Distinct, Outline Attached -Granulation Amt Large (67-100%) -Granulation Quality [place] -Slough/Fibrin Yes -Necrosis Amt Small (1-33%) -Necrotic Tissue Type Adherent Slough -Structure Exposed None/Limited to Skin Breakdown -Texture (Cary-wound Skin Appearance) Scarring -Moisture (Cary-wound Skin Appearance Dry/Scaly ) -Color (Cary-wound Skin Appearance) Erythema -Temperature (Cary-wound Skin No Abnormality Appearance) (Pt Warm) -Tenderness on Palpation (Cary-wound No Skin Appearance) -Ulcer Cleansing Rinsed/ Irrigated with Saline -Foul Odor after Cleansing No -Anesthetic Used 5% Lidocaine Gel [Edema Assessment] -Lower Limb Edema Present Yes -Left Calf (cm) 46.5 -Left Ankle (cm) 23.5 WC - Nurse 2 - General Ulcer CM Notes Start: 09/21/17 12:56 Freq: Status: Active Protocol: Activity Type Activity Date Activity User E-Sign Co-Sign Detail Recorded Client Recorded Date Recorded By Document 10/05/17 14:25 MW [id number] 10/05/17 14:28 MW 10/05/17 14:25 Wound Center Nurse 2 [Procedure/Treatment] #2 LEFT ALEX ULCER -Time 14:26 -Correct Patient Yes -Correct Side, Site, Position Yes -Correct Procedure Yes -Procedure Performed Yes -Type of Procedure Debridement -Clinical Debridement Subcutaneous -Post Debridement Size (cm) - Length 1.1 -Post Debridement Size (cm) - Width 1.7 -Post Debridement Size (cm) - Depth 0.1 -Total Square Cm 1.87 -Wound/Ulcer Outcome Not Healed -Ulcer Cleansing Rinsed/ Irrigated with Saline -Foul Odor after Cleansing No -Bioengineered Tissue No -Bleeding Controlled with Pressure -Treatment Response Procedure Tolerated Well [See Physician Procedure note for Specifics] Pain Scale: 0-10 Numeric [Pain] -Is Patient Pain Free? Yes Debridement Note Post-Debridement Measurements/Treatment WC - Nurse 2 - General Ulcer CM Notes Start: 09/21/17 12:56 Freq: Status: Active Protocol: Activity Type Activity Date Activity User E-Sign Co-Sign Detail Recorded Client Recorded Date Recorded By Document 09/21/17 13:52 MW [id number] 09/21/17 13:58 MW Document 09/28/17 13:42 MW [id number] 09/28/17 13:45 MW Document 10/05/17 14:25 MW [id number] 10/05/17 14:28 MW 09/21/17 09/28/17 10/05/17 13:52 13:42 14:25 Wound Center Nurse 2 #2 LEFT ALEX ULCER -Time 13:15 13:42 14:26 -Correct Patient Yes Yes Yes -Correct Side, Site, Position Yes Yes Yes -Correct Procedure Yes Yes Yes -Procedure Performed Yes Yes Yes -Type of Procedure Debridement Debridement Debridement -Clinical Debridement Subcutaneous Subcutaneous Subcutaneous -Post Debridement Size (cm) - Length 0.5 1.9 1.1 -Post Debridement Size (cm) - Width 0.7 1.2 1.7 -Post Debridement Size (cm) - Depth 0.1 0.1 0.1 -Total Square Cm 0.35 2.28 1.87 -Wound/Ulcer Outcome Not Healed Not Healed Not Healed -Ulcer Cleansing Rinsed/ Rinsed/ Rinsed/ Irrigated with Irrigated with Irrigated with Saline Saline Saline -Foul Odor after Cleansing No No No -Bioengineered Tissue No No No -Bleeding Controlled with Pressure Pressure Pressure Silver Nitrate -Treatment Response Procedure Procedure Procedure Tolerated Well Tolerated Well Tolerated Well Pain Scale: 0-10 Numeric Is Patient Pain Free? Yes Yes Yes Wound debrided: L alex Laterality: Left Wound Grade/Stage: full thickness VLU Type of Debridement: Excisional debridement Anesthesia Used: 4% Lidocaine Solution Depth: Down to and including healthy tissue, in the subcutaneous layer Percentage of wound debrided: 100 Instrument Used: 3mm curette Tissue Removed: fibrous slough Severity: Fat Layer Exposed Amount of bleeding with debridement: Mild Bleeding Controlled with: Pressure, Compression and gauze Patient tolerated procedure well Assessment/Plan Active Problems Venous insufficiency (chronic) (peripheral) (Chronic) Non-pressure chronic ulcer of other part of left lower leg with fat layer exposed (Acute) Bilateral leg edema (Chronic) 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) Assessment: See diagnoses Plan: SQ/excisional debridement of L alex ulcer. Reviewed vascular testing. Discussed importance of tight blood sugar control, adequate nutrition especially increased protein intake, to promote healing. Discussed importance of edema control--recommended leg elevation above her heart while resting or sleeping, avoiding idle sitting or standing, compression of at least 20-30 mmHg, increased activity, weight management. Pt not having much pain, no need to take NSAIDs. Continue compression with 3M 2-layer coban wrap to LLE. Home stocking to R leg in AM, remove before sleep. Collagen hydrogel, adaptic to L alex ulcer. Recommended referral to vascular surgery again, but patient no longer wants to see a vascular surgeon and wants to control her leg edema with compression stockings. Advised pt that stockings need replaced every 3 months -- she can also purchase 4 pairs, and rotate them, and these will last for 1 year. Monitor for redness, pus, malodor, warmth, inc pain as well as for N/V/F/C and call or go to the ED with these. Return in 1 week with me, nurse visit wednesday. Call with questions.
[2017-10-08 10:50] VITALS: BP 148/79; PULSE 84; RESP 20; TEMP 36.8
[2017-10-12 13:16] VITALS: BP 139/74; PULSE 81; RESP 18; TEMP 36
--- NOTE | 2017-10-12 14:16 | PCM.WC.PN ---
(1) Non-pressure chronic ulcer of other part of left lower leg with fat layer exposed Status: Acute Current Visit: Yes Code(s): L97.822 - Non-pressure chronic ulcer of other part of left lower leg with fat layer exposed (2) Type 2 diabetes mellitus with other circulatory complications Status: Chronic Current Visit: Yes Code(s): E11.59 - Type 2 diabetes mellitus with other circulatory complications (3) Venous insufficiency (chronic) (peripheral) Status: Chronic Current Visit: Yes Code(s): I87.2 - Venous insufficiency (chronic) (peripheral) (4) Bilateral leg edema Status: Chronic Current Visit: Yes Code(s): R60.0 - Localized edema Type of Wound Date of Service: 10/12/17 Chief Complaint: Non-healing ulcer R leg History of Wound: 71 year old diabetic woman with 2-3 week history of non-healing ulcer R alex. Pt states it started as a blister and opened. She was started on PO Keflex by her PCP and she has been applying hydrogel and telfa pads. She was referred her by her PCP due to no improvment in her leg ulceration. Has never had lower extremity vascular testing. Has not had recent blood work. Non-smoker. Blood sugar well-controlled, most recent A1c almost 1 year ago however and was 7.2. Pt does have CKD as well. No hx of CHF that she is aware of. Admits to sleeping in a recliner at night. Does not wear compression on her legs. 07/27-Has been trying to keep her legs elevated. Tolerated size F spandagrip, hydrofera blue well, but dressing adhered to the ulceration today. Vascular testing scheduled for next week. Pre-albumin low, emphasized importance of adequate nutrition today. 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 08/03--Has been trying to keep her legs elevated. Tolerated size F spandagrip, adaptic, and hydrofera blue well Vascular testing done and reveals normal B[place] but venous insufficiency bilateral. Pre-albumin low, emphasized importance of adequate nutrition today. 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 I did recommend referral to a vascular surgeon for venous insufficiency, but patient defers for now and would like to wait until her ulcer heals. 08/10--Improved with adaptic, hydrofera blue, and 3M 2-layer coban wrap for edema. The wrap did fall a few inches, so it will be wrapped higher today to hopefully prevent this. Pt did return on Wednesday for a nurse visit for compression wrap change. Tolerated wrap well, and was able to keep it dry. Ulcer measuring smaller. Discussed vascular surgeon once again, and pt defers this referral until after the ulcer heals. She states she wants to see Dr. Barnett at his office after the ulcer heals. She has been elevating her legs, increasing activity, avoiding idle sitting or standing. She does not have pain, so she does not need to take anti-inflammatory medications. She has been trying to lose weight. 08/17--Improved with adaptic, hydrofera blue, and 3M 2-layer coban wrap for edema. The 3M 2-layer coban stayed in place this week. Tolerated wrap well, and was able to keep it dry. Ulcer measuring smaller. Discussed vascular surgeon once again, and pt defers this referral until after the ulcer heals. She states she wants to see Dr. Barnett at his office after the ulcer heals. She has been elevating her legs, increasing activity, avoiding idle sitting or standing. She does not have pain, so she does not need to take anti-inflammatory medications. She has been trying to lose weight. Pt is diabetic with blood sugar 147 mg/dL this AM. 08/24--Improved with adaptic, hydrofera blue, and 3M 2-layer coban wrap for edema. The 3M 2-layer coban stayed in place this week. Tolerated wrap well, and was able to keep it dry. Ulcer measuring smaller, now almost healed. Pt now states she does not want to see a vascular surgeon. She has been elevating her legs, increasing activity, avoiding idle sitting or standing. She does not have pain, so she does not need to take anti-inflammatory medications. She has been trying to lose weight. Pt is diabetic with blood sugar 129 mg/dL this AM. 08/31--Healed with adaptic, hydrofera blue, and 3M 2-layer coban wrap for edema. The 3M 2-layer coban stayed in place this week. Tolerated wrap well, and was able to keep it dry. Ulcer measuring smaller, now almost healed. Pt now states she does not want to see a vascular surgeon. She has been elevating her legs, increasing activity, avoiding idle sitting or standing. She does not have pain, so she does not need to take anti-inflammatory medications. She has been trying to lose weight. Pt is diabetic with blood sugar 133 mg/dL this AM. Now has LLE swelling. 09/07--R alex remains healed. L alex with new superficial open lesion. Will treat with adaptic, collagen hydrogel, and dry dressing with 3M 2-layer coban wrap similar to RLE. Denies N/V/F/C. Denies pus,malodor, warmth, pain. No debridement L alex today. Pt will wear home stocking on the R, apply in AM and remove before sleep. She did come Wednesday for nurse visit. She will return again on Wednesday for a nurse visit for compression wrap change. 09/21--L alex ulcer stable, now with cluster distal L alex due to blisters. Pt kept her leg down without compression last wednesday, returned on wednesday for nurse visit but ended up seeing Dr. Nova. Today, will continue 3M 2-layer coban wrap, and switch to aquacel ag rather than hydrofera blue. 09/28--Improved with collagen hydrogel, aquacel ag, 3M 2-layer coban wrap. Distal alex ulcer healed, proximal ulcer improved. Denies s/s of acute bacterial infection. Did return last wednesday for nurse visit for wrap change. 10/05--Improved with collagen hydrogel, aquacel ag and 3M 2-layer coban. Denies s/s of acute bacterial infection. Did return last wednesday for nurse visit for wrap change. 10/12--Improved with collagen hydrogel, aquacel ag and 3M 2-layer coban. Denies s/s of acute bacterial infection. Did return last Wednesday for nurse visit for wrap change. Notes some irritation to skin on her leg, so we will try to add a sleeve prior to applying the 3M 2-layer wrap to protect the surrounding skin. Progress of Wound: improved - Physical Exam Vital Signs Temp Pulse Resp BP 96.8 F L 81 18 139/74 H 10/12/17 13:16 10/12/17 13:16 10/12/17 13:16 10/12/17 13:16 General: Alert, Oriented x3, Cooperative, No apparent distress Extremities: Edema Skin: Ulcer/ Wound - Ulcer L alex with no erythema, no calor, no purulent drainage, no malodor, minimal pain. No clinical signs of acute bacterial infection noted. See wound/edema assessment below. Wound Measurements and Assessment WC - Nurse 1 - General Ulcer Measurement Start: 09/21/17 12:56 Freq: Status: Active Protocol: Activity Type Activity Date Activity User E-Sign Co-Sign Detail Recorded Client Recorded Date Recorded By Document 10/12/17 13:16 [id number] 10/12/17 13:18 10/12/17 13:16 Wound Center Nurse 1 [Ulcer Assessment] #2 LEFT ALEX ULCER -Combined with other wound No -Current Size (cm) - Length 0.9 -Current Size (cm) - Width 0.5 -Current Size (cm) - Depth 0.1 -Total Square Cm 0.45 -Photo Taken Yes -Epithelialization Medium 34-66% -Tunneling No -Undermining/Tunneling No -Circular Undermining No -Exudate Amt Small (1-33%) -Exudate Type Serosanguineous -Wound Margin Flat & Intact -Granulation Amt Large (67-100%) -Granulation Quality Red -Slough/Fibrin Yes -Necrosis Amt Small (1-33%) -Necrotic Tissue Type Adherent Slough -Structure Exposed N/A -Texture (Cary-wound Skin Appearance) Assessed Localized Edema -Moisture (Cary-wound Skin Appearance Assessed ) Dry/Scaly -Color (Cary-wound Skin Appearance) Assessed Hemosiderin Staining -Temperature (Cary-wound Skin No Abnormality Appearance) (Pt Warm) -Tenderness on Palpation (Cary-wound No Skin Appearance) -Ulcer Cleansing Wound Cleanser -Foul Odor after Cleansing No -Anesthetic Used 4% Lidocaine Solution [Edema Assessment] -Lower Limb Edema Present Yes -Left Calf (cm) 45.0 -Left Ankle (cm) 21.6 MO - Nurse 2 - General Ulcer CM Notes Start: 09/21/17 12:56 Freq: Status: Active Protocol: Activity Type Activity Date Activity User E-Sign Co-Sign Detail Recorded Client Recorded Date Recorded By Document 04/24/18 13:42 DV [id number] 10/12/17 13:46 DV 10/12/17 13:42 Wound Center Nurse 2 [Procedure/Treatment] #2 LEFT ALEX ULCER -Time 13:43 -Correct Patient Yes -Correct Side, Site, Position Yes -Correct Procedure Yes -Procedure Performed Yes -Type of Procedure Debridement -Clinical Debridement Subcutaneous -Post Debridement Size (cm) - Length 1.0 -Post Debridement Size (cm) - Width 1.0 -Post Debridement Size (cm) - Depth 0.1 -Total Square Cm 1.00 -Wound/Ulcer Outcome Not Healed -Ulcer Cleansing Rinsed/ Irrigated with Saline -Foul Odor after Cleansing No -Bioengineered Tissue No -Bleeding Controlled with Pressure -Treatment Response Procedure Tolerated Well [See Physician Procedure note for Specifics] Pain Scale: 0-10 Numeric [Pain] -Is Patient Pain Free? Yes Debridement Note Post-Debridement Measurements/Treatment WC - Nurse 2 - General Ulcer CM Notes Start: 09/21/17 12:56 Freq: Status: Active Protocol: Activity Type Activity Date Activity User E-Sign Co-Sign Detail Recorded Client Recorded Date Recorded By Document 09/21/17 13:52 MW [id number] 09/21/17 13:58 MW Document 09/28/17 13:42 MW [id number] 09/28/17 13:45 MW Document 10/05/17 14:25 MW [id number] 10/05/17 14:28 MW Document 10/12/17 13:42 DV [id number] 10/12/17 13:46 DV 09/21/17 09/28/17 10/05/17 13:52 13:42 14:25 Wound Center Nurse 2 #2 LEFT ALEX ULCER -Time 13:15 13:42 14:26 -Correct Patient Yes Yes Yes -Correct Side, Site, Position Yes Yes Yes -Correct Procedure Yes Yes Yes -Procedure Performed Yes Yes Yes -Type of Procedure Debridement Debridement Debridement -Clinical Debridement Subcutaneous Subcutaneous Subcutaneous -Post Debridement Size (cm) - Length 0.5 1.9 1.1 -Post Debridement Size (cm) - Width 0.7 1.2 1.7 -Post Debridement Size (cm) - Depth 0.1 0.1 0.1 -Total Square Cm 0.35 2.28 1.87 -Wound/Ulcer Outcome Not Healed Not Healed Not Healed -Ulcer Cleansing Rinsed/ Rinsed/ Rinsed/ Irrigated with Irrigated with Irrigated with Saline Saline Saline -Foul Odor after Cleansing No No No -Bioengineered Tissue No No No -Bleeding Controlled with Pressure Pressure Pressure Silver Nitrate -Treatment Response Procedure Procedure Procedure Tolerated Well Tolerated Well Tolerated Well Pain Scale: 0-10 Numeric Is Patient Pain Free? Yes Yes Yes 10/12/17 13:42 Wound Center Nurse 2 #2 LEFT ALEX ULCER -Time 13:43 -Correct Patient Yes -Correct Side, Site, Position Yes -Correct Procedure Yes -Procedure Performed Yes -Type of Procedure Debridement -Clinical Debridement Subcutaneous -Post Debridement Size (cm) - Length 1.0 -Post Debridement Size (cm) - Width 1.0 -Post Debridement Size (cm) - Depth 0.1 -Total Square Cm 1.00 -Wound/Ulcer Outcome Not Healed -Ulcer Cleansing Rinsed/ Irrigated with Saline -Foul Odor after Cleansing No -Bioengineered Tissue No -Bleeding Controlled with Pressure -Treatment Response Procedure Tolerated Well Pain Scale: 0-10 Numeric Is Patient Pain Free? Yes Wound debrided: L alex Laterality: Left Wound Grade/Stage: Full thickness VLU Type of Debridement: Excisional debridement Anesthesia Used: 4% Lidocaine Solution Depth: Down to and including healthy tissue, in the subcutaneous layer Percentage of wound debrided: 100 Instrument Used: 3mm curette Tissue Removed: fibrous slough Severity: Fat Layer Exposed Amount of bleeding with debridement: Mild Bleeding Controlled with: Pressure, Compression and gauze Patient tolerated procedure well Assessment/Plan Active Problems Venous insufficiency (chronic) (peripheral) (Chronic) Non-pressure chronic ulcer of other part of left lower leg with fat layer exposed (Acute) Bilateral leg edema (Chronic) 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) Assessment: See diagnoses Plan: SQ/excisional debridement of L alex ulcer. Reviewed vascular testing. Discussed importance of tight blood sugar control, adequate nutrition especially increased protein intake, to promote healing. Discussed importance of edema control--recommended leg elevation above her heart while resting or sleeping, avoiding idle sitting or standing, compression of at least 20-30 mmHg, increased activity, weight management. Pt not having much pain, no need to take NSAIDs. Continue compression with 3M 2-layer coban wrap to LLE. Home stocking to R leg in AM, remove before sleep. Collagen hydrogel, adaptic to L alex ulcer. Add sleeve under 3M 2-layer wrap to protect the surrouding skin, add spandage on TOP of wrap to keep if from sliding down. Recommended referral to vascular surgery again, but patient no longer wants to see a vascular surgeon and wants to control her leg edema with compression stockings. Advised pt that stockings need replaced every 3 months -- she can also purchase 4 pairs, and rotate them, and these will last for 1 year. Monitor for redness, pus, malodor, warmth, inc pain as well as for N/V/F/C and call or go to the ED with these. Pt aware today is my last day at the wound center. Return in 1 week, nurse visit wednesday for wrap change. Call with questions.
[2017-10-18 12:53] VITALS: BP 147/84; PULSE 76; RESP 18; TEMP 36.8
--- NOTE | 2017-10-18 14:39 | PCM.WC.HP ---
(1) History of breast cancer Status: Chronic Current Visit: No Code(s): Z85.3 - Personal history of malignant neoplasm of breast (2) Swelling of lower extremity Status: Chronic Current Visit: Yes Code(s): M79.89 - Other specified soft tissue disorders (3) Dependent edema Status: Chronic Current Visit: Yes Code(s): R60.9 - Edema, unspecified (4) Venous insufficiency (chronic) (peripheral) Status: Chronic Current Visit: Yes Code(s): I87.2 - Venous insufficiency (chronic) (peripheral) (5) Non-pressure chronic ulcer of other part of left lower leg limited to breakdown of skin Status: Chronic Current Visit: Yes Code(s): L97.821 - Non-pressure chronic ulcer of other part of left lower leg limited to breakdown of skin (6) Chronic ulcer of leg with fat layer exposed Status: Chronic Current Visit: Yes Qualifiers: Laterality: left Code(s): L97.902 - Non-pressure chronic ulcer of unspecified part of unspecified lower leg with fat layer exposed (7) Blister of left leg without infection Status: Chronic Current Visit: Yes Qualifiers: Encounter type: initial encounter Qualified Code(s): S80.822A - Blister (nonthermal), left lower leg, initial encounter Code(s): S80.822A - Blister (nonthermal), left lower leg, initial encounter (8) Non-pressure chronic ulcer of other part of left lower leg with fat layer exposed Status: Chronic Current Visit: Yes Code(s): L97.822 - Non-pressure chronic ulcer of other part of left lower leg with fat layer exposed (9) Chronic kidney disease (CKD) Status: Chronic Current Visit: No Qualifiers: Chronic kidney disease stage: stage 4 (severe) Qualified Code(s): N18.4 - Chronic kidney disease, stage 4 (severe) Code(s): N18.9 - Chronic kidney disease, unspecified (10) CKD (chronic kidney disease) stage 4, GFR 15-29 ml/min Status: Chronic Current Visit: No Code(s): N18.4 - Chronic kidney disease, stage 4 (severe) (11) DM2 (diabetes mellitus, type 2) Status: Chronic Current Visit: No Code(s): E11.9 - Type 2 diabetes mellitus without complications (12) Bilateral leg edema Status: Chronic Current Visit: Yes Code(s): R60.0 - Localized edema (13) Benign essential HTN Status: Chronic Current Visit: No Code(s): I10 - Essential (primary) hypertension (14) Ascites Status: Acute Current Visit: Yes Code(s): R18.8 - Other ascites (15) Abdominal distension Status: Acute Current Visit: Yes Code(s): R14.0 - Abdominal distension (gaseous) History of Present Illness Date of Service: 10/18/17 Chief Complaint: Chronic swelling and edema in the lower extremities, with superficial ulcerations and blisters of the left lower extremity History of Wound: This is a 71-year-old female who [facility]. She has been treated for swelling and edema in her lower extremities, associated with blisters and superficial ulcerations. She is currently being managed by the use of 3M 2 layer compression wraps. Venous duplex examination, performed on August 02, 2017, revealed incompetence of the right great saphenous vein, and the left great saphenous vein below the knee. A noninvasive lower extremity arterial study was normal, revealing no evidence of significant arterial occlusive disease in the lower extremities. Of note, the patient began sleeping in a recliner, in an upright position, approximately 1 year ago. She claims to be relatively active, but otherwise spends significant amounts of time each day and an idle sitting position. She has been treated for ulcerations and blisters in the right lower extremity, which now appear to be completely healed. Blisters and ulcerations persist in the left lower extremity, and are relatively recent. The patient has undergone recent laboratory testing, with results as follows: White blood count 3.1, hemoglobin 10.9, hematocrit 33.7, platelets 98,000, sodium 141, potassium 4.1, chloride 109, BUN 29, creatinine 1.36, glucose 129, calcium 10.6, total bilirubin 1.10, AST 37, ALT 31, alkaline phosphatase 181, total protein 7.2, albumin 3.1. As an aside, the patient has developed severe abdominal distention within the last 2-3 weeks. This is thought to be due to the accumulation of ascites. An abdominal ultrasound examination was performed on October 16, 2017, revealing hepatic steatosis, ascites, and splenomegaly. A recent abdominal x-ray was relatively unremarkable. The patient has an appointment with Dr. Abimael Herzog, child care giver, later this week for evaluation of her severe abdominal distention and ascites. 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 lower leg limited to breakdown of skin (Chronic) Chronic ulcer of leg with fat layer exposed (Chronic) Blister of left leg without infection (Chronic) Non-pressure chronic ulcer of other part of left lower leg with fat layer exposed (Chronic) History of breast cancer (Chronic) Swelling of lower extremity (Chronic) Dependent edema (Chronic) Chronic kidney disease (CKD) (Chronic) Protein malnutrition (Chronic) CKD (chronic kidney disease) stage 4, GFR 15-29 ml/min (Chronic) Breast CA (Chronic) TIA (transient ischemic attack) (Chronic) DM2 (diabetes mellitus, type 2) (Chronic) Bilateral leg edema (Chronic) 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 She is also diabetic. She has a history of hypertension. Her history is negative for myocardial infarction, congestive heart failure, cerebrovascular accident, pulmonary disease, thyroid disease, and hyperlipidemia. She has a history of renal insufficiency. Surgical History: mastectomy, - - Patient has had a right mastectomy and appendectomy. She is a Ab0. Allergies/Adverse Reactions: Allergies clarithromycin [From Biaxin] Allergy (Verified 07/20/17 13:26) Unknown iodine Allergy (Verified 07/20/17 13:26) Unknown Home Medications: Ambulatory Orders Medication Instructions Recorded Aspirin [Aspirin, Baby] 81 mg PO DAILY@0800 08/08/13 Atenolol [Tenormin (beta geraldine)] 100 mg PO DAILY 08/08/13 Metformin(XR) [Glucophage Xr] 1,000 mg PO BID 08/08/13 Furosemide [Lasix] 40 mg PO DAILY #30 tablet 01/04/17 Losartan Potassium [Cozaar] 50 mg PO DAILY #30 tablet 01/04/17 Insulin Lispro [Humalog KwikPen] 0 unit SQ TID 04/15/17 Amlodipine Besylate [Norvasc] 5 mg PO DAILY 07/20/17 Cephalexin 500 mg PO TID 07/20/17 - Family History Sibling Cancer - Brother is from cancer that started in his leg, - - The patient's father at age of 85 with a history of congestive heart failure. The patient's mother at the age of 85 due to septic shock from urinary tract infection. 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 Lives: Alone Smoking Status: Never smoker Tobacco Use: Non-smoker Alcohol: None Drugs: None Review of Systems Constitutional: Denies: Chills, Fever, Weight Change Eyes: Denies: Pain, Vision Change HEENT: Denies: Difficulty Hearing, Difficulty Swallowing, Sinus Congestion Cardiovascular: Denies: Chest Pain, Palpitations Respiratory: Denies: Cough, Shortness of Breath Gastrointestinal: Denies: Diarrhea, Nausea, Vomiting Genitourinary: Denies: Dysuria, Hematuria Endocrine: Denies: Heat/ Cold Intolerance, Polydipsia, Polyuria Hematologic/ Lymphatic: Denies: Easy Bruising, Easy Bleeding - Physical Exam Vital Signs Temp Pulse Resp BP 98.2 F 76 18 147/84 H 10/18/17 12:53 10/18/17 12:53 10/18/17 12:53 10/18/17 12:53 General: Alert, Oriented x3, Cooperative, No apparent distress, Well developed, Well nourished HEENT: Atraumatic, PERRLA, EOMI, Normocephalic Oral: Moist Mucosa, No Gingival or Mucosal Lesions/ Ulcerations Neck: Supple, No JVD, Negative Carotid Bruits, Negative Hepatojugular Reflux, No Nodes, No Nuchal Rigidity, Trachea Midline Lungs: Clear to auscultation, Normal air movement, No rhonchi, No wheeze, No rales Cardiovascular: Regular rate, Regular Rhythm, Normal S1, Normal S2, Murmur - Systolic Abdomen: Soft, Non Tender, Distended - Severe abdominal distention is appreciated Extremities: No clubbing, No cyanosis, No Calf Tenderness, - - Bilateral lower extremity swelling and edema is noted. There are no open wounds or ulcerations in the right lower extremity. There are several superficial ulcerations and one intact blister on the left anterior tibial surface. There is no sign of infection or cellulitis. The bases of the ulcerations in the left lower extremity are pink and healthy in appearance. Skin: No rashes Wound Measurements and Assessment WC - Nurse 1 - General Ulcer Measurement Start: 09/21/17 12:56 Freq: Status: Active Protocol: Activity Type Activity Date Activity User E-Sign Co-Sign Detail Recorded Client Recorded Date Recorded By Document 10/18/17 12:53 TM [id number] 10/18/17 12:58 10/18/17 12:53 Wound Center Nurse 1 [Ulcer Assessment] #2 LEFT GONZALEZ ULCER -Combined with other wound No -Current Size (cm) - Length 0.9 -Current Size (cm) - Width 0.3 -Current Size (cm) - Depth 0.1 -Total Square Cm 0.27 -Photo Taken No -Epithelialization Small 1-33% -Tunneling No -Undermining/Tunneling No -Circular Undermining No -Classification - Thickness Full Thickness without Exposed Support Structure -Exudate Amt Small (1-33%) -Exudate Type Serosanguineous -Wound Margin Distinct, Outline Attached -Granulation Amt Large (67-100%) -Granulation Quality Red -Slough/Fibrin Yes -Necrosis Amt Small (1-33%) -Necrotic Tissue Type Adherent Slough -Structure Exposed Fascia Fat Layer Exposed -Texture (Cary-wound Skin Appearance) Localized Edema -Moisture (Cary-wound Skin Appearance No Abnormality ) -Color (Cary-wound Skin Appearance) Erythema -Temperature (Cary-wound Skin No Abnormality Appearance) (Pt Warm) -Tenderness on Palpation (Cary-wound No Skin Appearance) -Ulcer Cleansing Rinsed/ Irrigated with Saline -Foul Odor after Cleansing No -Anesthetic Used 5% Lidocaine Gel [Edema Assessment] -Lower Limb Edema Present Yes -Left Calf (cm) 42.5 -Left Ankle (cm) 25.5 WC - Nurse 2 - General Ulcer CM Notes Start: 09/21/17 12:56 Freq: Status: Active Protocol: Activity Type Activity Date Activity User E-Sign Co-Sign Detail Recorded Client Recorded Date Recorded By Document 10/18/17 14:00 JS [id number] 10/18/17 14:09 10/18/17 14:00 Wound Center Nurse 2 [Procedure/Treatment] #2 LEFT GONZALEZ ULCER -Time 14:00 -Correct Patient Yes -Correct Side, Site, Position Yes -Correct Procedure Yes -Wound/Ulcer Outcome Not Healed -Ulcer Cleansing Rinsed/ Irrigated with Saline -Foul Odor after Cleansing No -Bioengineered Tissue No -Topical Lidocaine (%) 4 -Lidocaine (ml) 5 -Bleeding Controlled with NA -Treatment Response Procedure Tolerated Well [See Physician Procedure note for Specifics] Pain Scale: 0-10 Numeric [Pain] -Is Patient Pain Free? Yes Neurological: Cranial nerves II-XII grossly intact, Neuro grossly intact Psych/Mental Status: Normal Affect, Appropriate, Alert and oriented to time, place, person, mood and affect Debridement Note Post-Debridement Measurements/Treatment WC - Nurse 2 - General Ulcer CM Notes Start: 09/21/17 12:56 Freq: Status: Active Protocol: Activity Type Activity Date Activity User E-Sign Co-Sign Detail Recorded Client Recorded Date Recorded By Document 09/21/17 13:52 MW [id number] 09/21/17 13:58 MW Document 09/28/17 13:42 MW [id number] 09/28/17 13:45 MW Document 10/05/17 14:25 MW [id number] 10/05/17 14:28 MW Document 10/12/17 13:42 DV [id number] 10/12/17 13:46 DV Document 10/18/17 14:00 JS [id number] 10/18/17 14:09 JS 09/21/17 09/28/17 10/05/17 13:52 13:42 14:25 Wound Center Nurse 2 #2 LEFT GONZALEZ ULCER -Time 13:15 13:42 14:26 -Correct Patient Yes Yes Yes -Correct Side, Site, Position Yes Yes Yes -Correct Procedure Yes Yes Yes -Procedure Performed Yes Yes Yes -Type of Procedure Debridement Debridement Debridement -Clinical Debridement Subcutaneous Subcutaneous Subcutaneous -Post Debridement Size (cm) - Length 0.5 1.9 1.1 -Post Debridement Size (cm) - Width 0.7 1.2 1.7 -Post Debridement Size (cm) - Depth 0.1 0.1 0.1 -Total Square Cm 0.35 2.28 1.87 -Wound/Ulcer Outcome Not Healed Not Healed Not Healed -Ulcer Cleansing Rinsed/ Rinsed/ Rinsed/ Irrigated with Irrigated with Irrigated with Saline Saline Saline -Foul Odor after Cleansing No No No -Bioengineered Tissue No No No -Topical Lidocaine (%) -Lidocaine (ml) -Bleeding Controlled with Pressure Pressure Pressure Silver Nitrate -Treatment Response Procedure Procedure Procedure Tolerated Well Tolerated Well Tolerated Well Pain Scale: 0-10 Numeric Is Patient Pain Free? Yes Yes Yes 10/12/17 10/18/17 13:42 14:00 Wound Center Nurse 2 #2 LEFT GONZALEZ ULCER -Time 13:43 14:00 -Correct Patient Yes Yes -Correct Side, Site, Position Yes Yes -Correct Procedure Yes Yes -Procedure Performed Yes -Type of Procedure Debridement -Clinical Debridement Subcutaneous -Post Debridement Size (cm) - Length 1.0 -Post Debridement Size (cm) - Width 1.0 -Post Debridement Size (cm) - Depth 0.1 -Total Square Cm 1.00 -Wound/Ulcer Outcome Not Healed Not Healed -Ulcer Cleansing Rinsed/ Rinsed/ Irrigated with Irrigated with Saline Saline -Foul Odor after Cleansing No No -Bioengineered Tissue No No -Topical Lidocaine (%) 4 -Lidocaine (ml) 5 -Bleeding Controlled with Pressure NA -Treatment Response Procedure Procedure Tolerated Well Tolerated Well Pain Scale: 0-10 Numeric Is Patient Pain Free? 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 As result of the severe swelling and edema in the left lower extremity, patient has developed several blisters, which have subsequently spontaneously burst, and 1 of which remains intact. These blisters appear related to the significant swelling and edema in her lower extremities. The patient has been sleeping in a recliner. This appears to be a causative factor related to the swelling and edema in the patient's lower extremities. The patient has been advised to modify her lifestyle habits, and the measures to be undertaken have been thoroughly explained. Plan: Conservative treatment measures are to be implemented. These have been discussed with the patient thoroughly. She is to elevate her lower extremities as much as possible. Elevation is to be to heart level, or higher. She is to sleep on a flat mattress at night, rather than in a recliner. Leg elevation has been encouraged, even during daytime hours, as much as possible. The patient is to refrain from prolonged idle sitting. He has been encouraged. Weight loss has been recommended. Optimization of the patient's nutrition, and optimization of the patient's glycemic control has also been recommended. Compression is to be implemented by means of a 3M 2 layer compression wrap to the right lower extremity, and an Unna boot to the left lower extremity. These multilayer compression wraps will be changed twice weekly, and the patient will return to our facility later this week for a change of her multilayer wraps. Patient is to return in 1 week for reevaluation. It is anticipated that modification of the patient's lifestyle will likely result in decrease in her lower extremity swelling. Discussed importance of tight blood sugar control, adequate nutrition especially increased protein intake, to promote healing. Discussed importance of edema control--recommended leg elevation above her heart while resting or sleeping, avoiding idle sitting or standing, compression of at least 20-30 mmHg, increased activity, weight management. Influenza vaccine was not administered today. The patient is not a smoker. The patient stands 5 feet 2 inches tall. She weighs 207 pounds. Her BMI is 37.9, which places her in an obese class II category. Weight loss has been recommended, the patient has been encouraged to collaborate with her primary care physician in this regard. We will await recommendations of Dr. Herzog, relative to the patient's massive accumulated ascites, which has been recent.
--- NOTE | 2017-10-18 14:54 | HP.PCM_ITS ---
(1) History of breast cancer Status: Chronic Current Visit: No Code(s): Z85.3 - Personal history of malignant neoplasm of breast (2) Swelling of lower extremity Status: Chronic Current Visit: Yes Code(s): M79.89 - Other specified soft tissue disorders (3) Dependent edema Status: Chronic Current Visit: Yes Code(s): R60.9 - Edema, unspecified (4) Venous insufficiency (chronic) (peripheral) Status: Chronic Current Visit: Yes Code(s): I87.2 - Venous insufficiency ( chronic) (peripheral) (5) Non-pressure chronic ulcer of other part of left lower leg limited to breakdown of skin Status: Chronic Current Visit: Yes Code(s): L97.821 - Non-pressure chronic ulcer of other part of left lower leg limited to breakdown of skin (6) Chronic ulcer of leg with fat layer exposed Status: Chronic Current Visit: Yes Qualifiers: Laterality: left Code(s): L97.902 - Non-pressure chronic ulcer of unspecified part of unspecified lower leg with fat layer exposed (7) Blister of left leg without infection Status: Chronic Current Visit: Yes Qualifiers: Encounter type: initial encounter Qualified Code(s): S80.822A - Blister ( nonthermal), left lower leg, initial encounter Code(s): S80.822A - Blister (nonthermal), left lower leg, initial encounter (8) Non-pressure chronic ulcer of other part of left lower leg with fat layer exposed Status: Chronic Current Visit: Yes Code(s): L97.822 - Non-pressure chronic ulcer of other part of left lower leg with fat layer exposed (9) Chronic kidney disease (CKD) Status: Chronic Current Visit: No Qualifiers: Chronic kidney disease stage: stage 4 (severe) Qualified Code(s): N18.4 - Chronic kidney disease, stage 4 (severe) Code(s): N18.9 - Chronic kidney disease, unspecified (10) CKD (chronic kidney disease) stage 4, GFR 15-29 ml/min Status: Chronic Current Visit: No Code(s): N18.4 - Chronic kidney disease, stage 4 (severe) (11) DM2 (diabetes mellitus, type 2) Status: Chronic Current Visit: No Code(s): E11.9 - Type 2 diabetes mellitus without complications (12) Bilateral leg edema Status: Chronic Current Visit: Yes Code(s): R60.0 - Localized edema (13) Benign essential HTN Status: Chronic Current Visit: No Code(s): I10 - Essential (primary) hypertension (14) Ascites Status: Acute Current Visit: Yes Code(s): R18.8 - Other ascites (15) Abdominal distension Status: Acute Current Visit: Yes Code(s): R14.0 - Abdominal distension ( gaseous) History of Present Illness Date of Service: 10/18/17 Chief Complaint: Chronic swelling and edema in the lower extremities, with superficial ulcerations and blisters of the left lower extremity History of Wound: This is a 71-year-old female who [facility]. She has been treated for swelling and edema in her lower extremities, associated with blisters and superficial ulcerations. She is currently being managed by the use of 3M 2 layer compression wraps. Venous duplex examination, performed on August 02, 2017, revealed incompetence of the right great saphenous vein, and the left great saphenous vein below the knee. A noninvasive lower extremity arterial study was normal, revealing no evidence of significant arterial occlusive disease in the lower extremities. Of note, the patient began sleeping in a recliner, in an upright position, approximately 1 year ago. She claims to be relatively active, but otherwise spends significant amounts of time each day and an idle sitting position. She has been treated for ulcerations and blisters in the right lower extremity, which now appear to be completely healed. Blisters and ulcerations persist in the left lower extremity, and are relatively recent. The patient has undergone recent laboratory testing, with results as follows: White blood count 3.1, hemoglobin 10.9, hematocrit 33.7, platelets 98,000, sodium 141, potassium 4.1, chloride 109, BUN 29, creatinine 1.36, glucose 129, calcium 10.6, total bilirubin 1.10, AST 37, ALT 31, alkaline phosphatase 181, total protein 7.2, albumin 3.1. As an aside, the patient has developed severe abdominal distention within the last 2-3 weeks. This is thought to be due to the accumulation of ascites. An abdominal ultrasound examination was performed on October 16, 2017, revealing hepatic steatosis, ascites, and splenomegaly. A recent abdominal x-ray was relatively unremarkable. The patient has an appointment with Dr. Abimael Herzog, timber selector, later this week for evaluation of her severe abdominal distention and ascites. 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 lower leg limited to breakdown of skin (Chronic) Chronic ulcer of leg with fat layer exposed (Chronic) Blister of left leg without infection (Chronic) Non-pressure chronic ulcer of other part of left lower leg with fat layer exposed (Chronic) History of breast cancer (Chronic) Swelling of lower extremity (Chronic) Dependent edema (Chronic) Chronic kidney disease (CKD) (Chronic) Protein malnutrition (Chronic) CKD (chronic kidney disease) stage 4, GFR 15-29 ml/min (Chronic) Breast CA (Chronic) TIA (transient ischemic attack) (Chronic) DM2 (diabetes mellitus, type 2) (Chronic) Bilateral leg edema (Chronic) 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 She is also diabetic. She has a history of hypertension. Her history is negative for myocardial infarction, congestive heart failure, cerebrovascular accident, pulmonary disease, thyroid disease, and hyperlipidemia. She has a history of renal insufficiency. Surgical History: mastectomy, - - Patient has had a right mastectomy and appendectomy. She is a Ab0. Allergies/Adverse Reactions: Allergies clarithromycin [From Biaxin] Allergy (Verified 07/20/17 13:26) Unknown iodine Allergy (Verified 07/20/17 13:26) Unknown Home Medications: Ambulatory Orders Medication Instructions Recorded Aspirin [Aspirin, Baby] 81 mg PO DAILY@0800 08/08/13 Atenolol [Tenormin (beta geraldine)] 100 mg PO DAILY 08/08/13 Metformin(XR) [Glucophage Xr] 1,000 mg PO BID 08/08/13 Furosemide [Lasix] 40 mg PO DAILY #30 tablet 01/04/17 Losartan Potassium [Cozaar] 50 mg PO DAILY #30 tablet 01/04/17 Insulin Lispro [Humalog KwikPen] 0 unit SQ TID 04/15/17 Amlodipine Besylate [Norvasc] 5 mg PO DAILY 07/20/17 Cephalexin 500 mg PO TID 07/20/17 - Family History Sibling Cancer - Brother is from cancer that started in his leg, - - The patient's father at age of 85 with a history of congestive heart failure. The patient's mother at the age of 85 due to septic shock from urinary tract infection. 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 Lives: Alone Smoking Status: Never smoker Tobacco Use: Non-smoker Alcohol: None Drugs: None Review of Systems Constitutional: Denies: Chills, Fever, Weight Change Eyes: Denies: Pain, Vision Change HEENT: Denies: Difficulty Hearing, Difficulty Swallowing, Sinus Congestion Cardiovascular: Denies: Chest Pain, Palpitations Respiratory: Denies: Cough, Shortness of Breath Gastrointestinal: Denies: Diarrhea, Nausea, Vomiting Genitourinary: Denies: Dysuria, Hematuria Endocrine: Denies: Heat/ Cold Intolerance, Polydipsia, Polyuria Hematologic/ Lymphatic: Denies: Easy Bruising, Easy Bleeding - Physical Exam Vital Signs Temp Pulse Resp BP 98.2 F 76 18 147/84 H 10/18/17 12:53 10/18/17 12:53 10/18/17 12:53 10/18/17 12:53 General: Alert, Oriented x3, Cooperative, No apparent distress, Well developed, Well nourished HEENT: Atraumatic, PERRLA, EOMI, Normocephalic Oral: Moist Mucosa, No Gingival or Mucosal Lesions/ Ulcerations Neck: Supple, No JVD, Negative Carotid Bruits, Negative Hepatojugular Reflux, No Nodes, No Nuchal Rigidity, Trachea Midline Lungs: Clear to auscultation, Normal air movement, No rhonchi, No wheeze, No rales Cardiovascular: Regular rate, Regular Rhythm, Normal S1, Normal S2, Murmur - Systolic Abdomen: Soft, Non Tender, Distended - Severe abdominal distention is appreciated Extremities: No clubbing, No cyanosis, No Calf Tenderness, - - Bilateral lower extremity swelling and edema is noted. There are no open wounds or ulcerations in the right lower extremity. There are several superficial ulcerations and one intact blister on the left anterior tibial surface. There is no sign of infection or cellulitis. The bases of the ulcerations in the left lower extremity are pink and healthy in appearance. Skin: No rashes Wound Measurements and Assessment WC - Nurse 1 - General Ulcer Measurement Start: 09/21/17 12:56 Freq: Status: Active Protocol: Activity Type Activity Date Activity User E-Sign Co-Sign Detail Recorded Client Recorded Date Recorded By Document 10/18/17 12:53 TM [id number] 10/18/17 12:58 10/18/17 12:53 Wound Center Nurse 1 [Ulcer Assessment] #2 LEFT GONZALEZ ULCER -Combined with other wound No -Current Size (cm) - Length 0.9 -Current Size (cm) - Width 0.3 -Current Size (cm) - Depth 0.1 -Total Square Cm 0.27 -Photo Taken No -Epithelialization Small 1-33% -Tunneling No -Undermining/Tunneling No -Circular Undermining No -Classification - Thickness Full Thickness without Exposed Support Structure -Exudate Amt Small (1-33%) -Exudate Type Serosanguineous -Wound Margin Distinct, Outline Attached -Granulation Amt Large (67-100%) -Granulation Quality Red -Slough/Fibrin Yes -Necrosis Amt Small (1-33%) -Necrotic Tissue Type Adherent Slough -Structure Exposed Fascia Fat Layer Exposed -Texture (Cary-wound Skin Appearance) Localized Edema -Moisture (Cary-wound Skin Appearance No Abnormality ) -Color (Cary-wound Skin Appearance) Erythema -Temperature (Cary-wound Skin No Abnormality Appearance) (Pt Warm) -Tenderness on Palpation (Cary-wound No Skin Appearance) -Ulcer Cleansing Rinsed/ Irrigated with Saline -Foul Odor after Cleansing No -Anesthetic Used 5% Lidocaine Gel [Edema Assessment] -Lower Limb Edema Present Yes -Left Calf (cm) 42.5 -Left Ankle (cm) 25.5 WC - Nurse 2 - General Ulcer CM Notes Start: 09/21/17 12:56 Freq: Status: Active Protocol: Activity Type Activity Date Activity User E-Sign Co-Sign Detail Recorded Client Recorded Date Recorded By Document 10/18/17 14:00 JS [id number] 10/18/17 14:09 10/18/17 14:00 Wound Center Nurse 2 [Procedure/Treatment] #2 LEFT GONZALEZ ULCER -Time 14:00 -Correct Patient Yes -Correct Side, Site, Position Yes -Correct Procedure Yes -Wound/Ulcer Outcome Not Healed -Ulcer Cleansing Rinsed/ Irrigated with Saline -Foul Odor after Cleansing No -Bioengineered Tissue No -Topical Lidocaine (%) 4 -Lidocaine (ml) 5 -Bleeding Controlled with NA -Treatment Response Procedure Tolerated Well [See Physician Procedure note for Specifics] Pain Scale: 0-10 Numeric [Pain] -Is Patient Pain Free? Yes Neurological: Cranial nerves II-XII grossly intact, Neuro grossly intact Psych/Mental Status: Normal Affect, Appropriate, Alert and oriented to time, place, person, mood and affect Debridement Note Post-Debridement Measurements/Treatment WC - Nurse 2 - General Ulcer CM Notes Start: 09/21/17 12:56 Freq: Status: Active Protocol: Activity Type Activity Date Activity User E-Sign Co-Sign Detail Recorded Client Recorded Date Recorded By Document 09/21/17 13:52 MW [id number] 09/21/17 13:58 MW Document 09/28/17 13:42 MW [id number] 09/28/17 13:45 MW Document 10/05/17 14:25 MW [id number] 10/05/17 14:28 MW Document 10/12/17 13:42 DV [id number] 10/12/17 13:46 DV Document 10/18/17 14:00 JS [id number] 10/18/17 14:09 JS 09/21/17 09/28/17 10/05/17 13:52 13:42 14:25 Wound Center Nurse 2 #2 LEFT GONZALEZ ULCER -Time 13:15 13:42 14:26 -Correct Patient Yes Yes Yes -Correct Side, Site, Position Yes Yes Yes -Correct Procedure Yes Yes Yes -Procedure Performed Yes Yes Yes -Type of Procedure Debridement Debridement Debridement -Clinical Debridement Subcutaneous Subcutaneous Subcutaneous -Post Debridement Size (cm) - Length 0.5 1.9 1.1 -Post Debridement Size (cm) - Width 0.7 1.2 1.7 -Post Debridement Size (cm) - Depth 0.1 0.1 0.1 -Total Square Cm 0.35 2.28 1.87 -Wound/Ulcer Outcome Not Healed Not Healed Not Healed -Ulcer Cleansing Rinsed/ Rinsed/ Rinsed/ Irrigated with Irrigated with Irrigated with Saline Saline Saline -Foul Odor after Cleansing No No No -Bioengineered Tissue No No No -Topical Lidocaine (%) -Lidocaine (ml) -Bleeding Controlled with Pressure Pressure Pressure Silver Nitrate -Treatment Response Procedure Procedure Procedure Tolerated Well Tolerated Well Tolerated Well Pain Scale: 0-10 Numeric Is Patient Pain Free? Yes Yes Yes 10/12/17 10/18/17 13:42 14:00 Wound Center Nurse 2 #2 LEFT GONZALEZ ULCER -Time 13:43 14:00 -Correct Patient Yes Yes -Correct Side, Site, Position Yes Yes -Correct Procedure Yes Yes -Procedure Performed Yes -Type of Procedure Debridement -Clinical Debridement Subcutaneous -Post Debridement Size (cm) - Length 1.0 -Post Debridement Size (cm) - Width 1.0 -Post Debridement Size (cm) - Depth 0.1 -Total Square Cm 1.00 -Wound/Ulcer Outcome Not Healed Not Healed -Ulcer Cleansing Rinsed/ Rinsed/ Irrigated with Irrigated with Saline Saline -Foul Odor after Cleansing No No -Bioengineered Tissue No No -Topical Lidocaine (%) 4 -Lidocaine (ml) 5 -Bleeding Controlled with Pressure NA -Treatment Response Procedure Procedure Tolerated Well Tolerated Well Pain Scale: 0-10 Numeric Is Patient Pain Free? 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 As result of the severe swelling and edema in the left lower extremity, patient has developed several blisters, which have subsequently spontaneously burst, and 1 of which remains intact. These blisters appear related to the significant swelling and edema in her lower extremities. The patient has been sleeping in a recliner. This appears to be a causative factor related to the swelling and edema in the patient's lower extremities. The patient has been advised to modify her lifestyle habits , and the measures to be undertaken have been thoroughly explained. Plan: Conservative treatment measures are to be implemented. These have been discussed with the patient thoroughly. She is to elevate her lower extremities as much as possible. Elevation is to be to heart level, or higher. She is to sleep on a flat mattress at night, rather than in a recliner. Leg elevation has been encouraged, even during daytime hours, as much as possible. The patient is to refrain from prolonged idle sitting. He has been encouraged. Weight loss has been recommended. Optimization of the patient's nutrition, and optimization of the patient's glycemic control has also been recommended. Compression is to be implemented by means of a 3M 2 layer compression wrap to the right lower extremity, and an Unna boot to the left lower extremity. These multilayer compression wraps will be changed twice weekly, and the patient will return to our facility later this week for a change of her multilayer wraps. Patient is to return in 1 week for reevaluation. It is anticipated that modification of the patient's lifestyle will likely result in decrease in her lower extremity swelling. Discussed importance of tight blood sugar control, adequate nutrition especially increased protein intake, to promote healing. Discussed importance of edema control--recommended leg elevation above her heart while resting or sleeping, avoiding idle sitting or standing, compression of at least 20-30 mmHg, increased activity, weight management. Influenza vaccine was not administered today. The patient is not a smoker. The patient stands 5 feet 2 inches tall. She weighs 207 pounds. Her BMI is 37.9, which places her in an obese class II category. Weight loss has been recommended, the patient has been encouraged to collaborate with her primary care physician in this regard. We will await recommendations of Dr. Herzog, relative to the patient's massive accumulated ascites, which has been recent.
== END 2017-10-18 23:59 ==
LOC: WC 13:00
PROVIDERS: Family Provider Family Medicine; PCP Family Medicine; Visit Provider Surgery
DX: E11.622 Type 2 diabetes mellitus with other skin ulcer (principal); E11.51 Type 2 diabetes mellitus with diabetic peripheral angiopathy without gangrene; L97.822 Non-pressure chronic ulcer of other part of left lower leg with fat layer exposed; R60.0 Localized edema; E11.22 Type 2 diabetes mellitus with diabetic chronic kidney disease; I12.9 Hypertensive chronic kidney disease with stage 1 through stage 4 chronic kidney disease, or unspecified chronic kidney disease; N18.4 Chronic kidney disease, stage 4 (severe); Z85.3 Personal history of malignant neoplasm of breast; M79.89 Other specified soft tissue disorders
CPT/HCPCS: 11042; 29580; 29581; 99211; 99212; 99213; G0463

== ENCOUNTER → 2017-10-22 11:36 | Outpatient (CLI) | payer MEDICARE, SELFPAY ==
[2017-10-20 12:27] LABS: International Normalized Ratio 1.1
[2017-10-20 12:28] LABS: Partial Thromboplast Time 30.4 Seconds (24.1-36.2)
[2017-10-20 12:37] LABS: AST(SGOT) 38 U/L (15-37); Alanine Aminotransfer ALT/SGPT 32 U/L (13-56); Albumin, Serum 3.1 g/dL (3.2-5.0); Alkaline Phosphatase 174 U/L (45-117); Bilirubin, Direct 0.21 mg/dL (0.00-0.30); Globulin 4.2 g/dL (2.2-4.2); Protein, Total 7.3 g/dL (6.4-8.2)
[2017-10-20 14:28] LABS: Platelet Count 78 K/mm3 (150-450)
[2017-10-21 14:09] LABS: ANTINUCLEAR ANTIBODIES DIRECT Negative (Negative)
--- NOTE | 2017-10-22 11:44 | US_ITS ---
PROCEDURE: ULTRASOUND GUIDED PARACENTESIS CLINICAL HISTORY: Female, 71 years old. ASCITES CONSENT: The risks, benefits and alternatives to the procedure were explained to the patient, and the patient agreed to the procedure and signed the consent. 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 PROCEDURE/TECHNIQUE: The risks, benefits, and alternatives to the procedure were explained to patient, and the patient agreed to the procedure and signed a consent form for the procedure. TECHNIQUE: Under the ultrasound guidance using sterile technique and after infiltration of the skin and subcutaneous soft tissues with 10 mL of lidocaine 1% a 5 Thai drainage catheter is introduced in the lower part of the abdomen. 21190 mL of fluid were removed sample sent to lab for evaluation. The patient tolerated the procedure there was no immediate complication. FINDINGS: FLUID PRE-PROCEDURE There is posterior enhancement. The findings appear anechoic. There is no loculation. Volume measurement: 16398 ml. FLUID POST-PROCEDURE Amount of fluid drained: 00794 ml. US/Paracentesis with US IMPRESSION: Successful ultrasound-guided paracentesis. Electronically Signed: Samra Martinez MD at 14:47 EDT Tel , Service support ,
--- NOTE | 2017-10-22 14:12 | RAD_ITS ---
STUDY: X-RAY CHEST REASON FOR EXAM: Female, 71 years old. tachypnea after thoracentesis TECHNIQUE: Single AP portable view of the chest. COMPARISON: None. FINDINGS: The lungs are clear and expanded. There is no demonstrated pleural abnormality. Normal size heart. Normal mediastinum and owen. Normal visualized pulmonary arteries. Normal visualized aortic arch and descending thoracic aorta. Normal visualized thoracic spine. Normal visualized ribs, clavicles, and shoulders. There is a hiatal hernia measures approximately 12 cm. RAD/Chest 1 View IMPRESSION: Large hiatal hernia. There is no evidence of pneumothorax. Electronically Signed: Samra Martinez MD at 14:46 EDT Tel , Service support ,
--- NOTE | 2017-10-22 14:22 | FLU_PTH ---
PATIENT: JENNA MCCALLUM LOC: U#:[id number] AGE/SX: 79/F ROOM: RE10/22/[address]: Dr. Abimael Herzog MD : [id number] BED: DIS: SPEC #: [id number] RECD: 10/25/17 11:59 STATUS: CYNTHIA BILLY #: [id number] BOGDAN: 10/22/17 14:[address]: Abimael Herzog DEPT: CYTOLOGY RECD BY: Maikel Salgado ENTERED: 10/25/17 12:00 SP TYPE: Fluid OTHR DR: Dr. Nicola Bay MD Tissues: PARACENTESIS FLUID Procedures: Pap Stain (control) Special Stain Group II Surgery Specimen Level IV Cell Block Cytospin Fluid HEADER OPERATION: Ultrasound-guided paracentesis PRE-OP DIAGNOSIS: Ascites TISSUE SUBMITTED: Paracentesis fluid for cytology DIAGNOSIS CYTOLOGY Paracentesis fluid for cytology (cytospin): Negative for malignant cells. SJ:ivy 10/26/17 CYTOLOGY STUDY Slides are reviewed. The specimen consists of macrophages, mesothelial cells and inflammatory cells. CYTOLOGY GROSS Received is 85 ml of slightly cloudy yellow fluid labeled with the patient's name and and designated per the requisition as paracentesis. Submitted for cytology preparation including cell block. / 10/25/17 TC:5 CPT: 23872, 83774
[2017-10-22 14:42] LABS: Cytology, Body Fluid / CSF SEE PATHOLOGY REPORT
[2017-10-22 15:56] LABS: LDH,Body Fluid 62 Units/l (Not Establ.)
[2017-10-22 16:24] LABS: Body Fluid Mononuclear WBC # 0.027 10^3/uL; Body Fluid Mononuclear WBC % 77.1 %; Body Fluid Polynuclear WBC # 0.008 10^3/uL; Body Fluid Polynuclear WBC % 22.9 %; Body Fluid Total Cells Counted 0.036 10^3/ul (0.000-0.000); White Blood Count/Body Fluid 0.035 10^3/uL
[2017-10-22 16:26] LABS: Red Cell Count/Body Fluid 2 /mm3
[2017-10-22 16:27] LABS: Appearance/Body Fluid SL CLDY; Auto B Fluid Analyzer BKGD Ct COUNTS W/IN LIMITS (W/IN LIMITS); Color/Body Fluid YELLOW; Source- Body Fluid ASCITES FLUID
[2017-10-22 17:46] LABS: Lymphocytes 40 %; Mesothelial Cells 22 %; Monocytes 14 %; Neutrophil (Segs) 3 %
[2017-10-22 17:48] LABS: Macrophages 21 %
[2017-10-25 13:52] LABS: Pathologist Comment/Body Fluid Reviewed
[2017-10-28 13:06] LABS: Protein, Body Fluid 2.5 g/dL (Not Establ.)
== END ==
PROVIDERS: Family Provider Family Medicine; PCP Family Medicine; Visit Provider Internal Medicine Gastroenterology
DX: R18.8 Other ascites (principal); K74.60 Unspecified cirrhosis of liver
CPT/HCPCS: 36415; 49083; 71045; 80076; 82105; 83516; 83615; 85049; 85610; 85730; 86038; 86304; 86803; 87070; 87075; 87205; 87340; 89050

== ENCOUNTER 2017-10-22 14:30 | Emergency (ER) | payer MEDICARE, SELFPAY ==
[2017-10-22 14:32] VITALS: BP 151/63; PULSE 69; RESP 16; TEMP 36.6; O2SAT 97; BMI 40.3
[2017-10-22 15:09] VITALS: BP 141/65; BP 144/70; BP 160/68; PULSE 66; PULSE 68; PULSE 88
--- NOTE | 2017-10-22 15:09 | EKG12_ITS ---
Test Reason : DIZZINESS Blood Pressure : / mmHG Vent. Rate : 066 BPM Atrial Rate : 066 BPM P-R Int : 000 ms QRS Dur : 088 ms QT Int : 408 ms P-R-T Axes : 000 010 009 degrees QTc Int : 427 ms Sinus rhythm Nonspecific T wave abnormality Abnormal ECG Confirmed by NICOLA SHAW, HAILEY ([id number]), assignment editor MARLEY ASHFORD ([id number]) on 10/25/2017 2:16:38 PM Referred By: [facility] Confirmed By:HAILEY PETERSEN MD
[2017-10-22 15:56] LABS: Absolute Lymphocyte Count 0.35 X10^3/ul (0.83-4.51); Basophil# 0.01 X10^3/uL; Basophil% 0.6 % (0-1); Eosinophil# 0.04 X10^3/uL; Eosinophils% 2.6 % (0-5); Lymphocyte # 0.35 X10^3/ul (4.0); Lymphocyte % 22.7 % (19-41); Mean Corp Hgb Conc 32.3 g/gl (32-36); Mean Platelet Vol. 9.9 fl (6.2-12.0); Monocyte# 0.11 X10^3/uL; Monocyte% 7.1 % (0-10); Neutrophil # 1.02 X10^3/uL (2.7-7.7); Neutrophil % 66.4 % (47-70); Platelet Count 68 K/mm3 (150-450); RBC Distribution Width CV 14.9 % (11.6-14.6); RBC Distribution Width SD 50.7 fl (35.1-43.9); Red Blood Count 3.23 M/mm3 (4.2-5.4); White Blood Count 1.5 K/mm3 (4.4-11.0)
[2017-10-22 16:04] LABS: Differential Indicated SCAN CRITERIA MET; POSITIVE COUNT NO; POSITIVE DIFFERENTIAL YES; POSITIVE MORPHOLOGY NO
[2017-10-22 16:24] LABS: Anion Gap 4 (5-15); BUN 23 mg/dL (7-18); BUN/Creat Ratio 17.6 RATIO (10-20); Calcium,Total 10.5 mg/dL (8.5-10.1); Chloride 108 mmol/L (98-107); Creatinine, Serum 1.31 mg/dL (0.55-1.02); EST Glomerular Filtration Rate 43 mL/min (>60); Est Glom Filt Rate - Afr Amer 52 mL/min (>60); Glucose 135 mg/dL (74-106); Potassium 3.9 mmol/L (3.5-5.1); Sodium Level 143 mmol/L (136-145)
[2017-10-22 16:41] LABS: Differential Comment SCANNED; Platelet Estimate MOD DEC (ADEQ)
[2017-10-22 17:15] LABS: Bacteria 0 SEEN /hpf (None Seen); Mucous, Urine 0 SEEN /hpf (<or=2+); Red Blood Cells-Urine 0 SEEN /hpf (0-5)
[2017-10-22 17:33] LABS: Color, Urine Yellow (Yellow); Glucose, Dipstick Normal (Normal); Ketone-Dipstick Negative (Negative); Leukocyte Esterase-Dipstick 25 /ul (Negative); Nitrite-Dipstick Negative (Negative); Occult Blood-Urine Negative /ul (Negative); Protein-Dipstick Negative (Negative); Specific Gravity, Urine 1.015 (1.002-1.030); Urine Bilirubin Dipstick Negative (Negative); Urine Clarity Clear (Clear); Urine Urobilinogen Normal (Normal)
[2017-10-22 18:04] LABS: Squamous Epithelial Cells - UA 0-5 SEEN /hpf (5-10); White Blood Cells 0-5 SEEN /hpf (0-5)
--- NOTE | 2017-10-22 18:22 | ED.VISSUMM ---
- ER Visit Summary Date of Service: 10/22/17 Chief Complaint: [Dizziness and shortness of breath] History of Present Illness: The patient is a 71 F [presents to the emergency department with complaint of dizziness and shortness of breath that started after patient had a paracentesis performed in radiology. Patient apparently had 10 L of fluid taken off of her abdomen. Patient states that after the procedure she went to stand up and felt things moving shift in her abdomen and felt like she was having a hard time breathing. Patient had a chest x-ray there that did not show any pneumothorax. Patient was referred to the emergency department. Patient described feeling somewhat lightheaded. Patient states that on arrival she is feeling improved. Patient denies any abdominal pain at this time although with breathing initially she had some mild discomfort in the epigastric region.] Physical Examination: [HEENT-PERRLA, EOMI. Cranial nerves II through XII grossly intact. TMs clear. Mucous membranes moist. No adenopathy. Cardiovascular-regular rate and rhythm without murmur or ectopy Lungs-clear to auscultation, chest wall stable without crepitus or subcu emphysema Abdomen-normoactive bowel sounds, soft, nontender, no rebound or rigidity, no peritoneal signs. Extremities-intact ?4, normal range of motion, normal pulses, atraumatic] Test Results: EKG obtained arrival showed a sinus rhythm with a ventricular rate [address] changes. CBC with differential showed a white blood cell count of 1.5, hemoglobin 10, hematocrit 31, platelets 68. Chemistries unremarkable. BUN was 23 and creatinine was 1.31. Troponin was less than 0.02. Urinalysis was normal. [Orthostatic vital signs were negative.] Emergency Department Course and Treatment: [Patient received normal saline at 1.5 cc an hour.] Treatment Plan: [Patient advised to follow-up with her primary care physician within next 3-5 days]. I suspect patient may have had a vasovagal episode. Disposition: [Discharged to home in stable condition.] Impression: [Dizziness-resolved Dyspnea-resolved] This note was generated with [employer] software. It may contain incorrect words, spelling, and punctuation that were not noted in review of the chart prior to signing ED Disposition - Plan for ED Patient: Chief Complaint: Dizziness Referrals: Nicola Bay MD [Primary Care Provider] -
--- NOTE | 2017-10-22 18:25 | ED.DCSUM_ITS ---
- ER Visit Summary Date of Service: 10/22/17 Chief Complaint: [Dizziness and shortness of breath] History of Present Illness: The patient is a 71 F [presents to the emergency department with complaint of dizziness and shortness of breath that started after patient had a paracentesis performed in radiology. Patient apparently had 10 L of fluid taken off of her abdomen. Patient states that after the procedure she went to stand up and felt things moving shift in her abdomen and felt like she was having a hard time breathing. Patient had a chest x-ray there that did not show any pneumothorax. Patient was referred to the emergency department. Patient described feeling somewhat lightheaded. Patient states that on arrival she is feeling improved. Patient denies any abdominal pain at this time although with breathing initially she had some mild discomfort in the epigastric region.] Physical Examination: [HEENT-PERRLA, EOMI. Cranial nerves II through XII grossly intact. TMs clear. Mucous membranes moist. No adenopathy. Cardiovascular-regular rate and rhythm without murmur or ectopy Lungs-clear to auscultation, chest wall stable without crepitus or subcu emphysema Abdomen-normoactive bowel sounds, soft, nontender, no rebound or rigidity, no peritoneal signs. Extremities-intact ?4, normal range of motion, normal pulses, atraumatic] Test Results: EKG obtained arrival showed a sinus rhythm with a ventricular rate [address] changes. CBC with differential showed a white blood cell count of 1.5, hemoglobin 10, hematocrit 31, platelets 68. Chemistries unremarkable. BUN was 23 and creatinine was 1.31. Troponin was less than 0.02. Urinalysis was normal. [Orthostatic vital signs were negative. ] Emergency Department Course and Treatment: [Patient received normal saline at 1.5 cc an hour.] Treatment Plan: [Patient advised to follow-up with her primary care physician within next 3-5 days]. I suspect patient may have had a vasovagal episode. Disposition: [Discharged to home in stable condition.] Impression: [Dizziness-resolved Dyspnea-resolved] This note was generated with [employer] software. It may contain incorrect words, spelling, and punctuation that were not noted in review of the chart prior to signing ED Disposition - Plan for ED Patient: Chief Complaint: Dizziness Referrals: Nicola Bay MD [Primary Care Provider] -
--- NOTE | 2017-10-22 18:25 | ED.DEP ---
ED Disposition - Plan for ED Patient: Chief Complaint: Dizziness Instructions: ED Dizziness [facility] Referrals: Nicola Bay MD [Primary Care Provider] - 3-5 Days
[2017-10-22 18:59] VITALS: BP 145/84; PULSE 69; RESP 16
== END 2017-10-22 19:00 | disposition home or self-care (01) ==
PROVIDERS: Emergency Provider Emergency Medicine; Family Provider Family Medicine; PCP Family Medicine
DX: R42 Dizziness and giddiness (principal); R06.02 Shortness of breath; I12.9 Hypertensive chronic kidney disease with stage 1 through stage 4 chronic kidney disease, or unspecified chronic kidney disease; E11.22 Type 2 diabetes mellitus with diabetic chronic kidney disease; N18.9 Chronic kidney disease, unspecified; I73.9 Peripheral vascular disease, unspecified; D61.818 Other pancytopenia; Z86.73 Personal history of transient ischemic attack (TIA), and cerebral infarction without residual deficits; Z79.82 Long term (current) use of aspirin; Z79.4 Long term (current) use of insulin; Z79.84 Long term (current) use of oral hypoglycemic drugs; Z79.899 Other long term (current) drug therapy; K74.60 Unspecified cirrhosis of liver; R18.8 Other ascites
CPT/HCPCS: 36415; 49083; 71045; 80048; 80076; 81001; 82105; 83516; 83615; 84157; 84484; 85025; 85049; 85610; 85730; 86038; 86304; 86803; 87070; 87075; 87205; 87340; 88108; 88305; 88313; 89050; 93005; 99284; A4216

== ENCOUNTER → 2017-10-27 13:50 | Outpatient (CLI) | payer MEDICARE, SELFPAY ==
--- NOTE | 2017-10-27 13:56 | US_ITS ---
PROCEDURE: Ultrasound guided paracentesis. DATE OF EXAMINATION: October 27, 2017. INDICATION: Female, 71 years old. Ascites. PHYSICIAN: Rigo Britt M.D. TECHNIQUE: The risks, benefits, and alternatives to the procedure were explained to the patient. The specific risks of bleeding, infection, and damage to bowel were detailed and accepted. Witnessed informed consent was obtained. The abdomen was ultrasonographically surveyed. An appropriate pocket of fluid was identified at the right lower quadrant. The skin were cleaned and prepped in the usual sterile fashion. Using ultrasound guidance, the peritoneal cavity was accessed with a 5-Serbian paracentesis needle/catheter system. The trocar was removed. A total of 3600 ml of harsh-colored fluid were removed from the peritoneal cavity. The catheter was removed and a sterile dressing was applied. The procedure was well tolerated. US/Paracentesis with US IMPRESSION: Ultrasound guided paracentesis. Electronically Signed: Rigo Britt MD at 15:20 EDT Tel [phone], Service support ,
== END ==
PROVIDERS: Family Provider Family Medicine; PCP Family Medicine; Visit Provider Internal Medicine Gastroenterology
DX: R18.8 Other ascites (principal); K74.60 Unspecified cirrhosis of liver
CPT/HCPCS: 49083

== ENCOUNTER → 2017-11-02 15:59 | Outpatient (CLI) | payer MEDICARE, SELFPAY ==
--- NOTE | 2017-11-02 16:05 | RAD_ITS ---
STUDY: X-RAY - ABDOMEN/PELVIS REASON FOR EXAM: Female, 72 years old. Right kidney stone TECHNIQUE: 2 views COMPARISON: None. FINDINGS: Normal visualized lung bases. There is an unremarkable bowel gas pattern. There is no demonstrated free abdominal air. No definite calcifications are seen over the renal shadows. Normal soft tissue structures. Normal visualized osseous structures. RAD/Abdomen Single View IMPRESSION: No identifiable renal calculi. Electronically Signed: Fabricio Short DO at 22:39 EDT Tel [phone], Service support ,
== END ==
PROVIDERS: Family Provider Family Medicine; PCP Family Medicine; Visit Provider Urology
DX: N20.0 Calculus of kidney (principal)
CPT/HCPCS: 74018

== ENCOUNTER → 2017-11-03 09:49 | Outpatient (CLI) | payer MEDICARE, SELFPAY ==
--- NOTE | 2017-11-03 09:59 | CT_ITS ---
STUDY: CT ABDOMEN AND PELVIS WITHOUT CONTRAST REASON FOR EXAM: Female, 72 years old. Right flank pain. Kidney stone. RADIATION DOSAGE (If Supplied By Facility): CTDIvol = ( 20.80 ) mGy, DLP = ( 1086.15 ) mGycm TECHNIQUE: Transaxial images were obtained from the dome of the diaphragm to the symphysis pubis without oral contrast, and without intravenous contrast. Sagittal and coronal images were reconstructed. Individualized dose optimization techniques were used for this CT. COMPARISON: Comparison is made with prior study dated April 12, 2017. FINDINGS: The visualized lung bases are unremarkable. Coronary artery calcification. Diffuse ascites. Perihepatic and perisplenic fluid. There is a diffuse contour abnormality of the liver consistent with cirrhotic changes. There are multiple gallstones. There is moderate splenomegaly. Normal pancreas. Normal bilateral adrenal glands. Punctate calcification in the upper pole calyx of the right kidney. Punctate calcification in the midportion of the right kidney. 2 mm calculi is in the lower pole calyx of the right kidney. Mild degree of right hydronephrosis and hydroureter due to a 2.5 mm calculus in the proximal portion of the right ureter. Nonobstructive 3 mm calculi in the lower pole of the left kidney. Large hiatal hernia. Normal small intestine. There are multiple colonic diverticula consistent with diverticulosis. The appendix is visualized and appears normal. There is diffuse atherosclerotic calcification of the abdominal aorta and its major visceral branches, without a demonstrated aneurysm. Normal inferior vena cava. Normal retroperitoneum. Normal urinary bladder. Normal abdominal wall. Disc space narrowing and degeneration at the L5-S1 level. CT/Abdomen/Pelvis without Cont IMPRESSION: Diffuse ascites. Bilateral nonobstructive intrarenal calculi. 2.5 mm calculus in the mid portion of the right ureter causing right hydronephrosis. Electronically Signed: Rigo Britt MD at 11:24 EDT Tel [phone], Service support ,
== END ==
PROVIDERS: Family Provider Family Medicine; PCP Family Medicine; Visit Provider Nurse Practitioner Adult Health
DX: N13.2 Hydronephrosis with renal and ureteral calculous obstruction (principal); R18.8 Other ascites
CPT/HCPCS: 74176

== ENCOUNTER → 2017-11-05 11:35 | Outpatient (CLI) | payer MEDICARE, SELFPAY ==
[2017-11-12 16:10] LABS: Size 4x4x3 mm (.); Uric Acid 100 % (.)
== END ==
PROVIDERS: Family Provider Family Medicine; PCP Family Medicine; Visit Provider Nurse Practitioner Adult Health
DX: N20.0 Calculus of kidney (principal)
CPT/HCPCS: 82360

== ENCOUNTER 2017-11-16 09:30 | Outpatient (RCR) | payer MEDICARE, SELFPAY ==
[2017-10-19 00:44] VITALS: BP 160/59; PULSE 76; RESP 18; TEMP 36.8
[2017-10-21 13:50] VITALS: BP 150/74; PULSE 89; RESP 18; TEMP 36.4
[2017-10-26 12:05] VITALS: BP 166/79; PULSE 78; RESP 16; TEMP 36.4
--- NOTE | 2017-10-26 13:06 | HP.PCM_ITS ---
(1) Venous insufficiency (chronic) (peripheral) Status: Chronic Current Visit: Yes Code(s): I87.2 - Venous insufficiency ( chronic) (peripheral) (2) Non-pressure chronic ulcer of other part of left lower leg limited to breakdown of skin Status: Chronic Current Visit: Yes Code(s): L97.821 - Non-pressure chronic ulcer of other part of left lower leg limited to breakdown of skin (3) Chronic ulcer of leg with fat layer exposed Status: Chronic Current Visit: Yes Qualifiers: Laterality: left Qualified Code(s): L97.922 - Non-pressure chronic ulcer of unspecified part of left lower leg with fat layer exposed Code(s): L97.902 - Non-pressure chronic ulcer of unspecified part of unspecified lower leg with fat layer exposed (4) Blister of left leg without infection Status: Chronic Current Visit: Yes Qualifiers: Encounter type: subsequent encounter Qualified Code(s): S80.822D - Blister (nonthermal), left lower leg, subsequent encounter Code(s): S80.822A - Blister (nonthermal), left lower leg, initial encounter (5) Non-pressure chronic ulcer of other part of left lower leg with fat layer exposed Status: Chronic Current Visit: Yes Code(s): L97.822 - Non-pressure chronic ulcer of other part of left lower leg with fat layer exposed (6) History of breast cancer Status: Chronic Current Visit: No Code(s): Z85.3 - Personal history of malignant neoplasm of breast (7) Swelling of lower extremity Status: Chronic Current Visit: Yes Code(s): M79.89 - Other specified soft tissue disorders (8) Dependent edema Status: Chronic Current Visit: Yes Code(s): R60.9 - Edema, unspecified (9) Ascites Status: Acute Current Visit: No Code(s): R18.8 - Other ascites (10) Abdominal distension Status: Acute Current Visit: No Code(s): R14.0 - Abdominal distension ( gaseous) (11) Chronic kidney disease (CKD) Status: Chronic Current Visit: No Qualifiers: Code(s): N18.9 - Chronic kidney disease, unspecified (12) Protein malnutrition Status: Chronic Current Visit: No Code(s): E46 - Unspecified protein- calorie malnutrition (13) CKD (chronic kidney disease) stage 4, GFR 15-29 ml/min Status: Chronic Current Visit: No Code(s): N18.4 - Chronic kidney disease, stage 4 (severe) (14) Pancytopenia Status: Acute Current Visit: No Code(s): D61.818 - Other pancytopenia (15) Hypercalcemia Status: Acute Current Visit: No Code(s): E83.52 - Hypercalcemia (16) Breast CA Status: Chronic Current Visit: No Code(s): C50.919 - Malignant neoplasm of unspecified site of unspecified female breast (17) TIA (transient ischemic attack) Status: Chronic Current Visit: No (18) DM2 (diabetes mellitus, type 2) Status: Chronic Current Visit: No Code(s): E11.9 - Type 2 diabetes mellitus without complications (19) Non-pressure chronic ulcer of other part of right lower leg with fat layer exposed Status: Resolved Current Visit: No Code(s): L97.812 - Non-pressure chronic ulcer of other part of right lower leg with fat layer exposed (20) Bilateral leg edema Status: Chronic Current Visit: Yes Code(s): R60.0 - Localized edema (21) Type 2 diabetes mellitus with other circulatory complications Status: Chronic Current Visit: No Code(s): E11.59 - Type 2 diabetes mellitus with other circulatory complications (22) Benign essential HTN Status: Chronic Current Visit: No Code(s): I10 - Essential (primary) hypertension History of Present Illness Date of Service: 10/26/17 Chief Complaint: Chronic swelling and edema in the lower extremities, with superficial ulcerations and blisters of the left lower extremity History of Wound: This is a 71-year-old female who [facility]. She has been treated for swelling and edema in her lower extremities, associated with blisters and superficial ulcerations. She is currently being managed by the use of 3M 2 layer compression wraps. Venous duplex examination, performed on August 02, 2017, revealed incompetence of the right great saphenous vein, and the left great saphenous vein below the knee. A noninvasive lower extremity arterial study was normal, revealing no evidence of significant arterial occlusive disease in the lower extremities. Of note, the patient began sleeping in a recliner, in an upright position, approximately 1 year ago. She claims to be relatively active, but otherwise spends significant amounts of time each day in an idle sitting position. She has been treated for ulcerations and blisters in the right lower extremity, which are completely healed. Blisters and ulcerations persist in the left lower extremity, and are relatively recent. The patient has undergone recent laboratory testing, with results as follows: White blood count 3.1, hemoglobin 10.9, hematocrit 33.7, platelets 98,000, sodium 141, potassium 4.1, chloride 109, BUN 29, creatinine 1.36, glucose 129, calcium 10.6, total bilirubin 1.10, AST 37, ALT 31, alkaline phosphatase 181, total protein 7.2, albumin 3.1. As an aside, the patient has developed severe abdominal distention within the last 2-3 weeks. This was thought to be due to the accumulation of ascites. An abdominal ultrasound examination was performed on October 16, 2017, revealing hepatic steatosis, ascites, and splenomegaly. A recent abdominal x-ray was relatively unremarkable. Since last seen in our facility last week, the patient is undergone paracentesis of the ascites fluid, and 10 L of fluid were removed. The patient is scheduled to undergo paracentesis again tomorrow. The procedure was performed, and will again be performed tomorrow, at [facility]. The swelling and edema in the patient's lower extremities is markedly improved. 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 lower leg limited to breakdown of skin (Chronic) Chronic ulcer of leg with fat layer exposed (Chronic) Blister of left leg without infection (Chronic) Non-pressure chronic ulcer of other part of left lower leg with fat layer exposed (Chronic) History of breast cancer (Chronic) Swelling of lower extremity (Chronic) Dependent edema (Chronic) Chronic kidney disease (CKD) (Chronic) Protein malnutrition (Chronic) CKD (chronic kidney disease) stage 4, GFR 15-29 ml/min (Chronic) Breast CA (Chronic) TIA (transient ischemic attack) (Chronic) DM2 (diabetes mellitus, type 2) (Chronic) Bilateral leg edema (Chronic) 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 She is a Ab0. Allergies/Adverse Reactions: Allergies clarithromycin [From Biaxin] Allergy (Verified 10/22/17 14:31) Unknown iodine Allergy (Verified 10/22/17 14:31) Unknown Home Medications: Ambulatory Orders Medication Instructions Recorded Aspirin [Aspirin, Baby] 81 mg PO DAILY@0800 08/08/13 Atenolol [Tenormin (beta geraldine)] 100 mg PO DAILY 08/08/13 Metformin(XR) [Glucophage Xr] 1,000 mg PO BID 08/08/13 Furosemide [Lasix] 40 mg PO DAILY #30 tablet 01/04/17 Losartan Potassium [Cozaar] 50 mg PO DAILY #30 tablet 01/04/17 Insulin Lispro [Humalog KwikPen] 0 unit SQ TID 04/15/17 Amlodipine Besylate [Norvasc] 5 mg PO DAILY 07/20/17 - Family History Sibling Cancer - Brother is from cancer that started in his leg, - - The patient's father at age of 85 with a history of congestive heart failure. The patient's mother at the age of 85 due to septic shock from urinary tract infection. Smoking Status: Never smoker Tobacco Use: Non-smoker Review of Systems Constitutional: Denies: Chills, Fever, Weight Change Eyes: Denies: Pain, Vision Change HEENT: Denies: Difficulty Hearing, Difficulty Swallowing, Sinus Congestion Cardiovascular: Denies: Chest Pain, Palpitations Respiratory: Denies: Cough, Shortness of Breath Gastrointestinal: Denies: Diarrhea, Nausea, Vomiting Genitourinary: Denies: Dysuria, Hematuria Endocrine: Denies: Heat/ Cold Intolerance, Polydipsia, Polyuria Hematologic/ Lymphatic: Denies: Easy Bruising, Easy Bleeding - Physical Exam Vital Signs Temp Pulse Resp BP 97.5 F L 78 16 166/79 H 10/26/17 12:05 10/26/17 12:05 10/26/17 12:05 10/26/17 12:05 General: Alert, Oriented x3, Cooperative, No apparent distress, Well developed, Well nourished HEENT: Atraumatic, PERRLA, EOMI, Normocephalic Oral: Moist Mucosa Neck: No JVD Lungs: Normal air movement Abdomen: Distended, - - Abdominal distention persists, but is markedly improved over that noted 1 week ago. Extremities: No clubbing, No cyanosis, No Calf Tenderness, - - The swelling and edema in the patient's lower extremities is markedly improved. Circumference measurements are improved bilaterally. There are no manuela open wounds, but very small superficial excoriations on the left lower extremity. There is no sign of infection or cellulitis in the lower extremities. Wound Measurements and Assessment - Nurse 1 - General Ulcer Measurement Start: 10/21/17 13:50 Freq: Status: Active Protocol: Activity Type Activity Date Activity User E-Sign Co-Sign Detail Recorded Client Recorded Date Recorded By Document 10/26/17 12:05 [id number] 10/26/17 12:16 10/26/17 12:05 Wound Center Nurse 1 [Ulcer Assessment] #2 LEFT GONZALEZ ULCER -Combined with other wound No -Current Size (cm) - Length 0.1 -Current Size (cm) - Width 0.1 -Current Size (cm) - Depth 0.1 -Total Square Cm 0.01 -Photo Taken No -Epithelialization Large 67-100% -Tunneling No -Undermining/Tunneling No -Circular Undermining No -Exudate Amt None Present (0 %) -Wound Margin Flat & Intact -Granulation Amt Large (67-100%) -Granulation Quality Red -Slough/Fibrin No -Structure Exposed N/A -Texture (Cary-wound Skin Appearance) Assessed Localized Edema -Moisture (Cary-wound Skin Appearance Assessed ) Dry/Scaly -Color (Cary-wound Skin Appearance) Assessed -Temperature (Cary-wound Skin No Abnormality Appearance) (Pt Warm) -Tenderness on Palpation (Cary-wound No Skin Appearance) -Ulcer Cleansing Wound Cleanser -Foul Odor after Cleansing No [Edema Assessment] -Lower Limb Edema Present Yes -Right Calf (cm) 38.3 -Right Ankle (cm) 22.8 -Left Calf (cm) 39.2 -Left Ankle (cm) 23.8 - Nurse 2 - General Ulcer CM Notes Start: 10/21/17 13:50 Freq: Status: Active Protocol: Activity Type Activity Date Activity User E-Sign Co-Sign Detail Recorded Client Recorded Date Recorded By Document 10/26/17 12:46 [email or web address] [id number] 10/26/17 12:47 10/26/17 12:46 Wound Center Nurse 2 [Procedure/Treatment] #2 LEFT GONZALEZ ULCER -Correct Patient No -Correct Side, Site, Position No -Correct Procedure No -Procedure Performed No [See Physician Procedure note for Specifics] Pain Scale: 0-10 Numeric [Pain] -Is Patient Pain Free? Yes Neurological: Cranial nerves II-XII grossly intact, Neuro grossly intact Psych/Mental Status: Normal Affect, Appropriate, Alert and oriented to time, place, person, mood and affect Debridement Note Post-Debridement Measurements/Treatment WC - Nurse 2 - General Ulcer CM Notes Start: 10/21/17 13:50 Freq: Status: Active Protocol: Activity Type Activity Date Activity User E-Sign Co-Sign Detail Recorded Client Recorded Date Recorded By Document 10/26/17 12:46 [email or web address] 10/26/17 12:47 [email or web address] 10/26/17 12:46 Wound Center Nurse 2 #2 LEFT GONZALEZ ULCER -Correct Patient No -Correct Side, Site, Position No -Correct Procedure No -Procedure Performed No Pain Scale: 0-10 Numeric Is Patient Pain Free? Yes No debridement was completed today Assessment/Plan Active Problems Venous insufficiency (chronic) (peripheral) (Chronic) Non-pressure chronic ulcer of other part of left lower leg limited to breakdown of skin (Chronic) Chronic ulcer of leg with fat layer exposed (Chronic) Blister of left leg without infection (Chronic) Non-pressure chronic ulcer of other part of left lower leg with fat layer exposed (Chronic) Swelling of lower extremity (Chronic) Dependent edema (Chronic) Bilateral leg edema (Chronic) Assessment: This is a 71-year-old female with bilateral lower extremity swelling and edema in her lower extremities. As result of the severe swelling and edema in the left lower extremity, the patient developed several blisters, which have subsequently spontaneously burst, and are currently healing appropriately. These blisters appear related to the significant swelling and edema which was present in her lower extremities recently. The patient has been sleeping in a recliner. This appears to be a causative factor related to the swelling and edema in the patient's lower extremities. The patient has been advised to modify her lifestyle habits, and the measures to be undertaken have been thoroughly explained. She is to continue sleeping on a flat mattress at night. She is to elevate her legs to heart level, or higher, as much as possible during daytime hours. Activity has been encouraged. The patient has been discouraged from prolonged idle sitting and standing. Plan: Conservative treatment measures are to be continued. These have been discussed with the patient thoroughly. She is to elevate her lower extremities as much as possible. Elevation is to be to heart level, or higher. She is to sleep on a flat mattress at night, rather than in a recliner. Leg elevation has been encouraged, even during daytime hours, as much as possible. The patient is to refrain from prolonged idle sitting. Activity has been encouraged. Weight loss has been recommended. Optimization of the patient's nutrition, and optimization of the patient's glycemic control has also been recommended. Compression is to be implemented by means of a 3M 2 layer compression wrap to the right lower extremity, and an Unna boot to the left lower extremity. These multilayer compression wraps will be changed twice weekly, and the patient will return to our facility later this week for a change of her multilayer wraps. Patient is to return in 1 week for reevaluation. It is anticipated that modification of the patient's lifestyle will likely result in decrease in her lower extremity swelling. Discussed importance of tight blood sugar control, adequate nutrition especially increased protein intake, to promote healing. Discussed importance of edema control--recommended leg elevation above her heart while resting or sleeping, avoiding idle sitting or standing, compression of at least 20-30 mmHg, increased activity, weight management. We will await the results and the benefits of paracentesis for the patient's abdominal ascites. Influenza vaccine was not administered today. The patient is not a smoker. The patient stands 5 feet 2 inches tall. She weighs 207 pounds. Her BMI is 37.9, which places her in an obese class II category. Weight loss has been recommended, the patient has been encouraged to collaborate with her primary care physician in this regard.
[2017-10-29 13:01] VITALS: BP 136/55; PULSE 65; RESP 16; TEMP 36.2
[2017-11-02 08:53] VITALS: BP 146/79; PULSE 68; RESP 18; TEMP 36.6
--- NOTE | 2017-11-02 09:32 | HP.PCM_ITS ---
(1) Venous insufficiency (chronic) (peripheral) Status: Chronic Current Visit: Yes Code(s): I87.2 - Venous insufficiency ( chronic) (peripheral) (2) Non-pressure chronic ulcer of other part of left lower leg limited to breakdown of skin Status: Chronic Current Visit: Yes Code(s): L97.821 - Non-pressure chronic ulcer of other part of left lower leg limited to breakdown of skin (3) Chronic ulcer of leg with fat layer exposed Status: Chronic Current Visit: Yes Qualifiers: Laterality: left Qualified Code(s): L97.922 - Non-pressure chronic ulcer of unspecified part of left lower leg with fat layer exposed Code(s): L97.902 - Non-pressure chronic ulcer of unspecified part of unspecified lower leg with fat layer exposed (4) Blister of left leg without infection Status: Chronic Current Visit: Yes Qualifiers: Encounter type: subsequent encounter Qualified Code(s): S80.822D - Blister (nonthermal), left lower leg, subsequent encounter Code(s): S80.822A - Blister (nonthermal), left lower leg, initial encounter (5) Non-pressure chronic ulcer of other part of left lower leg with fat layer exposed Status: Chronic Current Visit: Yes Code(s): L97.822 - Non-pressure chronic ulcer of other part of left lower leg with fat layer exposed (6) History of breast cancer Status: Chronic Current Visit: No Code(s): Z85.3 - Personal history of malignant neoplasm of breast (7) Swelling of lower extremity Status: Chronic Current Visit: Yes Code(s): M79.89 - Other specified soft tissue disorders (8) Dependent edema Status: Chronic Current Visit: Yes Code(s): R60.9 - Edema, unspecified (9) Ascites Status: Acute Current Visit: No Code(s): R18.8 - Other ascites (10) Abdominal distension Status: Acute Current Visit: No Code(s): R14.0 - Abdominal distension ( gaseous) (11) Chronic kidney disease (CKD) Status: Chronic Current Visit: No Qualifiers: Code(s): N18.9 - Chronic kidney disease, unspecified (12) Protein malnutrition Status: Chronic Current Visit: No Code(s): E46 - Unspecified protein- calorie malnutrition (13) CKD (chronic kidney disease) stage 4, GFR 15-29 ml/min Status: Chronic Current Visit: No Code(s): N18.4 - Chronic kidney disease, stage 4 (severe) (14) Pancytopenia Status: Acute Current Visit: No Code(s): D61.818 - Other pancytopenia (15) Hypercalcemia Status: Acute Current Visit: No Code(s): E83.52 - Hypercalcemia (16) Breast CA Status: Chronic Current Visit: No Code(s): C50.919 - Malignant neoplasm of unspecified site of unspecified female breast (17) TIA (transient ischemic attack) Status: Chronic Current Visit: No (18) DM2 (diabetes mellitus, type 2) Status: Chronic Current Visit: No Code(s): E11.9 - Type 2 diabetes mellitus without complications (19) Bilateral leg edema Status: Chronic Current Visit: Yes Code(s): R60.0 - Localized edema (20) Type 2 diabetes mellitus with other circulatory complications Status: Chronic Current Visit: No Code(s): E11.59 - Type 2 diabetes mellitus with other circulatory complications (21) Benign essential HTN Status: Chronic Current Visit: No Code(s): I10 - Essential (primary) hypertension History of Present Illness Date of Service: 11/02/17 Chief Complaint: Chronic swelling and edema in the lower extremities, with superficial ulcerations and blisters of the left lower extremity History of Wound: This is a 72-year-old female who [facility]. She has been treated for swelling and edema in her lower extremities, associated with blisters and superficial ulcerations. She is currently being managed by the use of 3M 2 layer compression wraps. Venous duplex examination, performed on August 02, 2017, revealed incompetence of the right great saphenous vein, and the left great saphenous vein below the knee. A noninvasive lower extremity arterial study was normal, revealing no evidence of significant arterial occlusive disease in the lower extremities. Of note, the patient began sleeping in a recliner, in an upright position, approximately 1 year ago. She claims to be relatively active, but otherwise spends significant amounts of time each day in an idle sitting position. She has been treated for ulcerations and blisters in the right lower extremity, which are completely healed. Blisters and ulcerations persisted in the left lower extremity, and are now healed as of her current visit. The patient has undergone recent laboratory testing, with results as follows: White blood count 3.1, hemoglobin 10.9, hematocrit 33.7, platelets 98,000, sodium 141, potassium 4.1, chloride 109, BUN 29, creatinine 1.36, glucose 129, calcium 10.6, total bilirubin 1.10, AST 37, ALT 31, alkaline phosphatase 181, total protein 7.2, albumin 3.1. As an aside, the patient has developed severe abdominal distention within the last 2-3 weeks. This was thought to be due to the accumulation of ascites. An abdominal ultrasound examination was performed on October 16, 2017, revealing hepatic steatosis, ascites, and splenomegaly. A recent abdominal x-ray was relatively unremarkable. The patient has undergone paracentesis of the ascites fluid, and 10 L of fluid were removed. The patient went a second paracentesis 6 days ago, with another removal of approximately 4 L of ascites fluid. She is under the care of other providers, and has an appointment with Dr. Herzog in this regard in 2 weeks. The swelling and edema in the patient's lower extremities is markedly improved. Additionally, the superficial blisters in the left lower extremity are now completely healed and epithelialized. 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 lower leg limited to breakdown of skin (Chronic) Chronic ulcer of leg with fat layer exposed (Chronic) Blister of left leg without infection (Chronic) Non-pressure chronic ulcer of other part of left lower leg with fat layer exposed (Chronic) History of breast cancer (Chronic) Swelling of lower extremity (Chronic) Dependent edema (Chronic) Chronic kidney disease (CKD) (Chronic) Protein malnutrition (Chronic) CKD (chronic kidney disease) stage 4, GFR 15-29 ml/min (Chronic) Breast CA (Chronic) TIA (transient ischemic attack) (Chronic) DM2 (diabetes mellitus, type 2) (Chronic) Bilateral leg edema (Chronic) 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 She is a Ab0. Allergies/Adverse Reactions: Allergies clarithromycin [From Biaxin] Allergy (Verified 10/22/17 14:31) Unknown iodine Allergy (Verified 10/22/17 14:31) Unknown Home Medications: Ambulatory Orders Medication Instructions Recorded Aspirin [Aspirin, Baby] 81 mg PO DAILY@0800 08/08/13 Atenolol [Tenormin (beta geraldine)] 100 mg PO DAILY 08/08/13 Metformin(XR) [Glucophage Xr] 1,000 mg PO BID 08/08/13 Furosemide [Lasix] 40 mg PO DAILY #30 tablet 01/04/17 Losartan Potassium [Cozaar] 50 mg PO DAILY #30 tablet 01/04/17 Insulin Lispro [Humalog KwikPen] 0 unit SQ TID 04/15/17 Amlodipine Besylate [Norvasc] 5 mg PO DAILY 07/20/17 - Family History Sibling Cancer - Brother is from cancer that started in his leg, - - The patient's father at age of 85 with a history of congestive heart failure. The patient's mother at the age of 85 due to septic shock from urinary tract infection. Smoking Status: Never smoker Tobacco Use: Non-smoker Review of Systems Constitutional: Denies: Chills, Fever, Weight Change Eyes: Denies: Pain, Vision Change HEENT: Denies: Difficulty Hearing, Difficulty Swallowing, Sinus Congestion Cardiovascular: Denies: Chest Pain, Palpitations Respiratory: Denies: Cough, Shortness of Breath Gastrointestinal: Denies: Diarrhea, Nausea, Vomiting Genitourinary: Denies: Dysuria, Hematuria Endocrine: Denies: Heat/ Cold Intolerance, Polydipsia, Polyuria Hematologic/ Lymphatic: Denies: Easy Bruising, Easy Bleeding - Physical Exam Vital Signs Temp Pulse Resp BP 97.8 F 68 18 146/79 H 11/02/17 08:53 11/02/17 08:53 11/02/17 08:53 11/02/17 08:53 General: Alert, Oriented x3, Cooperative, No apparent distress, Well developed, Well nourished HEENT: Atraumatic, PERRLA, EOMI, Normocephalic Oral: Moist Mucosa Neck: No JVD Lungs: Normal air movement Abdomen: Distended, - - Severe abdominal distention is noted. Extremities: No clubbing, No cyanosis, - - The swelling and edema in the patient 's lower extremities appears to be markedly improved, and now minimized. Furthermore, the blisters in the distal left lower extremity are completely healed and epithelialized. There is no sign of infection or cellulitis. Circumference measurements are documented elsewhere, but are noted to be improved. Skin: No rashes, No breakdown Wound Measurements and Assessment WC - Nurse 1 - General Ulcer Measurement Start: 10/21/17 13:50 Freq: Status: Active Protocol: Activity Type Activity Date Activity User E-Sign Co-Sign Detail Recorded Client Recorded Date Recorded By Document 11/02/17 08:53 BALBINA [id number] 11/02/17 08:59 DV 11/02/17 08:53 W[facility] Nurse 1 [Ulcer Assessment] #2 LEFT GONZALEZ ULCER -Combined with other wound No -Current Size (cm) - Length 0.1 -Current Size (cm) - Width 0.1 -Current Size (cm) - Depth 0.1 -Total Square Cm 0.01 -Photo Taken Yes -Epithelialization None Present -Tunneling No -Undermining/Tunneling No -Circular Undermining No -Classification - Thickness Full Thickness without Exposed Support Structure -Exudate Amt None Present (0 %) -Granulation Amt None Present (0 %) -Granulation Quality N/A -Slough/Fibrin No -Necrosis Amt None Present (0 %) -Structure Exposed N/A -Texture (Cary-wound Skin Appearance) No Abnormality Assessed -Moisture (Cary-wound Skin Appearance No Abnormality ) Assessed -Color (Cary-wound Skin Appearance) No Abnormality Assessed -Temperature (Cary-wound Skin No Abnormality Appearance) (Pt Warm) -Ulcer Cleansing Wound Cleanser -Foul Odor after Cleansing No [Edema Assessment] -Lower Limb Edema Present No -Right Calf (cm) 34.1 -Right Ankle (cm) 21.2 -Left Calf (cm) 36.0 -Left Ankle (cm) 22.5 WC - Nurse 2 - General Ulcer CM Notes Start: 10/21/17 13:50 Freq: Status: Active Protocol: Activity Type Activity Date Activity User E-Sign Co-Sign Detail Recorded Client Recorded Date Recorded By Document 11/02/17 09:12 SERGIO [id number] 11/02/17 09:16 SERGIO 11/02/17 09:12 Wound Center Nurse 2 [Procedure/Treatment] #2 LEFT GONZALEZ ULCER -Time 09:12 -Correct Patient Yes -Correct Side, Site, Position Yes -Correct Procedure Yes -Procedure Performed No -Post Debridement Size (cm) - Length 0 -Post Debridement Size (cm) - Width 0 -Post Debridement Size (cm) - Depth 0 -Total Square Cm 0 -Wound/Ulcer Outcome Healed- Epithelialized -Ulcer Cleansing Not Cleansed -Foul Odor after Cleansing No -Bioengineered Tissue No -Bleeding Controlled with NA -Treatment Response Procedure Tolerated Well [See Physician Procedure note for Specifics] Pain Scale: 0-10 Numeric [Pain] -Is Patient Pain Free? Yes Neurological: Cranial nerves II-XII grossly intact, Neuro grossly intact Psych/Mental Status: Normal Affect, Appropriate, Alert and oriented to time, place, person, mood and affect Debridement Note Post-Debridement Measurements/Treatment WC - Nurse 2 - General Ulcer CM Notes Start: 10/21/17 13:50 Freq: Status: Active Protocol: Activity Type Activity Date Activity User E-Sign Co-Sign Detail Recorded Client Recorded Date Recorded By Document 10/26/17 12:46 [email or web address] [id number] 10/26/17 12:47 Document 11/02/17 09:12 JS [id number] 11/02/17 09:16 JS 10/26/17 11/02/17 12:46 09:12 Wound Center Nurse 2 #2 LEFT GONZALEZ ULCER -Time 09:12 -Correct Patient No Yes -Correct Side, Site, Position No Yes -Correct Procedure No Yes -Procedure Performed No No -Post Debridement Size (cm) - Length 0 -Post Debridement Size (cm) - Width 0 -Post Debridement Size (cm) - Depth 0 -Total Square Cm 0 -Wound/Ulcer Outcome Healed- Epithelialized -Ulcer Cleansing Not Cleansed -Foul Odor after Cleansing No -Bioengineered Tissue No -Bleeding Controlled with NA -Treatment Response Procedure Tolerated Well Pain Scale: 0-10 Numeric Is Patient Pain Free? Yes Yes No debridement was completed today Assessment/Plan Active Problems Venous insufficiency (chronic) (peripheral) (Chronic) Non-pressure chronic ulcer of other part of left lower leg limited to breakdown of skin (Chronic) Chronic ulcer of leg with fat layer exposed (Chronic) Blister of left leg without infection (Chronic) Non-pressure chronic ulcer of other part of left lower leg with fat layer exposed (Chronic) Swelling of lower extremity (Chronic) Dependent edema (Chronic) Bilateral leg edema (Chronic) Assessment: This is a 72-year-old female with bilateral lower extremity swelling and edema in her lower extremities. As result of the severe swelling and edema in the left lower extremity, the patient developed several blisters, which subsequently spontaneously burst. They are now currently healed and fully epithelialized. The patient has been sleeping in a recliner. This appears to be a causative factor related to the swelling and edema in the patient's lower extremities. The patient has been advised to modify her lifestyle habits, and the measures to be undertaken have been thoroughly explained. She is to continue sleeping on a flat mattress at night. She is to elevate her legs to heart level, or higher, as much as possible during daytime hours. Activity has been encouraged. The patient has been discouraged from prolonged idle sitting and standing. Significant progress has been made in diminishing the swelling and edema in the patient's lower extremities. Her severe ascites, and the apparent reaccumulation of ascitic fluid within the abdominal cavity appear to be her most significant current medical problem. She is currently under management by other providers in this regard. Plan: Conservative treatment measures are to be continued. These have been discussed with the patient thoroughly. She is to elevate her lower extremities as much as possible. Elevation is to be to heart level, or higher. She is to sleep on a flat mattress at night, rather than in a recliner. Leg elevation has been encouraged, even during daytime hours, as much as possible. The patient is to refrain from prolonged idle sitting. Activity has been encouraged. Weight loss has been recommended. Optimization of the patient's nutrition, and optimization of the patient's glycemic control has also been recommended. Compression is to be implemented by means of a 3M 2 layer compression wraps to the lower extremities bilaterally, which will be changed twice weekly. Concurrently, the patient is to be measured, and an attempt will be made to secure her CircAid compression wraps for the lower extremities, which can be used by the patient long-term following her subsequent discharge. Patient is to return in 1 week for reevaluation. It is anticipated that modification of the patient's lifestyle will likely result in decrease in her lower extremity swelling. Discussed importance of tight blood sugar control, adequate nutrition especially increased protein intake, to promote healing. Discussed importance of edema control--recommended leg elevation above her heart while resting or sleeping, avoiding idle sitting or standing, compression of at least 20-30 mmHg, increased activity, weight management. We will await the results of evaluation regarding the patient's abdominal ascites. Influenza vaccine was not administered today. The patient is not a smoker. The patient stands 5 feet 2 inches tall. She weighs 207 pounds. Her BMI is 37.9, which places her in an obese class II category. Weight loss has been recommended, the patient has been encouraged to collaborate with her primary care physician in this regard.
[2017-11-05 12:35] VITALS: BP 129/73; RESP 20; TEMP 36.6
[2017-11-09 09:18] VITALS: BP 127/90; PULSE 93; RESP 18; TEMP 36.3
--- NOTE | 2017-11-09 09:56 | PCM.WC.HP ---
(1) Venous insufficiency (chronic) (peripheral) Status: Chronic Current Visit: Yes Code(s): I87.2 - Venous insufficiency (chronic) (peripheral) (2) Non-pressure chronic ulcer of other part of left lower leg limited to breakdown of skin Status: Chronic Current Visit: Yes Code(s): L97.821 - Non-pressure chronic ulcer of other part of left lower leg limited to breakdown of skin (3) Chronic ulcer of leg with fat layer exposed Status: Chronic Current Visit: Yes Qualifiers: Laterality: left Qualified Code(s): L97.922 - Non-pressure chronic ulcer of unspecified part of left lower leg with fat layer exposed Code(s): L97.902 - Non-pressure chronic ulcer of unspecified part of unspecified lower leg with fat layer exposed (4) Blister of left leg without infection Status: Chronic Current Visit: Yes Qualifiers: Encounter type: subsequent encounter Qualified Code(s): S80.822D - Blister (nonthermal), left lower leg, subsequent encounter Code(s): S80.822A - Blister (nonthermal), left lower leg, initial encounter (5) Non-pressure chronic ulcer of other part of left lower leg with fat layer exposed Status: Chronic Current Visit: Yes Code(s): L97.822 - Non-pressure chronic ulcer of other part of left lower leg with fat layer exposed (6) History of breast cancer Status: Chronic Current Visit: No Code(s): Z85.3 - Personal history of malignant neoplasm of breast (7) Swelling of lower extremity Status: Chronic Current Visit: Yes Code(s): M79.89 - Other specified soft tissue disorders (8) Dependent edema Status: Chronic Current Visit: Yes Code(s): R60.9 - Edema, unspecified (9) Ascites Status: Acute Current Visit: No Code(s): R18.8 - Other ascites (10) Abdominal distension Status: Acute Current Visit: No Code(s): R14.0 - Abdominal distension (gaseous) (11) Chronic kidney disease (CKD) Status: Chronic Current Visit: No Qualifiers: Code(s): N18.9 - Chronic kidney disease, unspecified (12) Protein malnutrition Status: Chronic Current Visit: No Code(s): E46 - Unspecified protein-calorie malnutrition (13) CKD (chronic kidney disease) stage 4, GFR 15-29 ml/min Status: Chronic Current Visit: No Code(s): N18.4 - Chronic kidney disease, stage 4 (severe) (14) Pancytopenia Status: Acute Current Visit: No Code(s): D61.818 - Other pancytopenia (15) Hypercalcemia Status: Acute Current Visit: No Code(s): E83.52 - Hypercalcemia (16) Breast CA Status: Chronic Current Visit: No Code(s): C50.919 - Malignant neoplasm of unspecified site of unspecified female breast (17) TIA (transient ischemic attack) Status: Chronic Current Visit: No (18) DM2 (diabetes mellitus, type 2) Status: Chronic Current Visit: No Code(s): E11.9 - Type 2 diabetes mellitus without complications (19) Bilateral leg edema Status: Chronic Current Visit: Yes Code(s): R60.0 - Localized edema (20) Type 2 diabetes mellitus with other circulatory complications Status: Chronic Current Visit: No Code(s): E11.59 - Type 2 diabetes mellitus with other circulatory complications (21) Benign essential HTN Status: Chronic Current Visit: No Code(s): I10 - Essential (primary) hypertension History of Present Illness Date of Service: 11/09/17 Chief Complaint: Chronic swelling and edema in the lower extremities, with superficial ulcerations and blisters of the left lower extremity History of Wound: This is a 72-year-old female who [facility]. She has been treated for swelling and edema in her lower extremities, associated with blisters and superficial ulcerations. She is currently being managed by the use of 3M 2 layer compression wraps. Venous duplex examination, performed on August 02, 2017, revealed incompetence of the right great saphenous vein, and the left great saphenous vein below the knee. A noninvasive lower extremity arterial study was normal, revealing no evidence of significant arterial occlusive disease in the lower extremities. Of note, the patient began sleeping in a recliner, in an upright position, approximately 1 year ago. She claims to be relatively active, but otherwise spends significant amounts of time each day in an idle sitting position. She has been treated for ulcerations and blisters in the right lower extremity, which are completely healed. Blisters and ulcerations persisted in the left lower extremity, but subsequently healed. The patient presents today with significant clinical changes. There is now breakdown and abrasions on the right anterior tibial surface, associated with new blisters. It appears as though this is related to shifting of her 3M 2 layer compression wraps. The patient has undergone recent laboratory testing, with results as follows: White blood count 3.1, hemoglobin 10.9, hematocrit 33.7, platelets 98,000, sodium 141, potassium 4.1, chloride 109, BUN 29, creatinine 1.36, glucose 129, calcium 10.6, total bilirubin 1.10, AST 37, ALT 31, alkaline phosphatase 181, total protein 7.2, albumin 3.1. As an aside, the patient has developed severe abdominal distention within the last month. This was thought to be due to the accumulation of ascites. An abdominal ultrasound examination was performed on October 16, 2017, revealing hepatic steatosis, ascites, and splenomegaly. A recent abdominal x-ray was relatively unremarkable. The patient has undergone paracentesis of the ascites fluid on several occasions, with removal of large amounts of ascitic fluid. She is under the care of other providers, including Dr. Herzog, a cycle repairer. It is suspected that the lower extremity swelling is due to dependency, as well as metabolic factors. 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 lower leg limited to breakdown of skin (Chronic) Chronic ulcer of leg with fat layer exposed (Chronic) Blister of left leg without infection (Chronic) Non-pressure chronic ulcer of other part of left lower leg with fat layer exposed (Chronic) History of breast cancer (Chronic) Swelling of lower extremity (Chronic) Dependent edema (Chronic) Chronic kidney disease (CKD) (Chronic) Protein malnutrition (Chronic) CKD (chronic kidney disease) stage 4, GFR 15-29 ml/min (Chronic) Breast CA (Chronic) TIA (transient ischemic attack) (Chronic) DM2 (diabetes mellitus, type 2) (Chronic) Bilateral leg edema (Chronic) 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 She is a Ab0. Allergies/Adverse Reactions: Allergies clarithromycin [From Biaxin] Allergy (Verified 10/22/17 14:31) Unknown iodine Allergy (Verified 10/22/17 14:31) Unknown Home Medications: Ambulatory Orders Medication Instructions Recorded Aspirin [Aspirin, Baby] 81 mg PO DAILY@0800 08/08/13 Atenolol [Tenormin (beta geraldine)] 100 mg PO DAILY 08/08/13 Metformin(XR) [Glucophage Xr] 1,000 mg PO BID 08/08/13 Furosemide [Lasix] 40 mg PO DAILY #30 tablet 01/04/17 Losartan Potassium [Cozaar] 50 mg PO DAILY #30 tablet 01/04/17 Insulin Lispro [Humalog KwikPen] 0 unit SQ TID 04/15/17 Amlodipine Besylate [Norvasc] 5 mg PO DAILY 07/20/17 - Family History Sibling Cancer - Brother is from cancer that started in his leg, - - The patient's father at age of 85 with a history of congestive heart failure. The patient's mother at the age of 85 due to septic shock from urinary tract infection. Smoking Status: Never smoker Tobacco Use: Non-smoker Review of Systems Constitutional: Denies: Chills, Fever, Weight Change Eyes: Denies: Pain, Vision Change HEENT: Denies: Difficulty Hearing, Difficulty Swallowing, Sinus Congestion Cardiovascular: Denies: Chest Pain, Palpitations Respiratory: Denies: Cough, Shortness of Breath Gastrointestinal: Denies: Diarrhea, Nausea, Vomiting Genitourinary: Denies: Dysuria, Hematuria Endocrine: Denies: Heat/ Cold Intolerance, Polydipsia, Polyuria Hematologic/ Lymphatic: Denies: Easy Bruising, Easy Bleeding - Physical Exam Vital Signs Temp Pulse Resp BP 97.3 F L 93 18 127/90 H 11/09/17 09:18 11/09/17 09:18 11/09/17 09:18 11/09/17 09:18 General: Alert, Oriented x3, Cooperative, No apparent distress, Well developed, Well nourished HEENT: Atraumatic, PERRLA, EOMI, Normocephalic Oral: Moist Mucosa Neck: No JVD Lungs: Normal air movement Abdomen: Non-Distended Extremities: No clubbing, No cyanosis, No Calf Tenderness, Edema, - - Moderate swelling and edema persist in the lower extremities bilaterally. Patient presents now with new abrasions and breakdown on the right anterior tibial surface. This appears due to shifting of her compression wraps. Circumference measurements and dimensions are documented elsewhere. There is no sign of infection or cellulitis. Wound Measurements and Assessment - Nurse 1 - General Ulcer Measurement Start: 10/21/17 13:50 Freq: Status: Active Protocol: Activity Type Activity Date Activity User E-Sign Co-Sign Detail Recorded Client Recorded Date Recorded By Document 11/09/17 09:18 [id number] 11/09/17 09:21 11/09/17 09:18 W[facility] Center Nurse 1 [Edema Assessment] -Lower Limb Edema Present Yes -Right Calf (cm) 42.6 -Right Ankle (cm) 20.8 -Left Calf (cm) 42.5 -Left Ankle (cm) 20.8 - Nurse 2 - General Ulcer CM Notes Start: 10/21/17 13:50 Freq: Status: Active Protocol: Activity Type Activity Date Activity User E-Sign Co-Sign Detail Recorded Client Recorded Date Recorded By Document 11/09/17 09:48 [email or web address] 11/09/17 09:49 11/09/17 09:48 Wound Center Nurse 2 [Procedure/Treatment] #1- RT LAT GONZALEZ -Time 09:48 -Correct Patient Yes -Correct Side, Site, Position Yes -Correct Procedure Yes -Procedure Performed No -Wound/Ulcer Outcome Not Healed -Ulcer Cleansing Rinsed/ Irrigated with Saline -Foul Odor after Cleansing No -Bioengineered Tissue No -Bleeding Controlled with NA [See Physician Procedure note for Specifics] Pain Scale: 0-10 Numeric [Pain] -Is Patient Pain Free? Yes Neurological: Cranial nerves II-XII grossly intact, Neuro grossly intact Psych/Mental Status: Normal Affect, Appropriate, Alert and oriented to time, place, person, mood and affect Debridement Note Post-Debridement Measurements/Treatment - Nurse 2 - General Ulcer CM Notes Start: 10/21/17 13:50 Freq: Status: Active Protocol: Activity Type Activity Date Activity User E-Sign Co-Sign Detail Recorded Client Recorded Date Recorded By Document 10/26/17 12:46 [email or web address] 10/26/17 12:47 Document 11/02/17 09:12 JS [id number] 11/02/17 09:16 JS Document 11/09/17 09:48 [email or web address] 11/09/17 09:49 10/26/17 11/02/1711/09/18 12:46 09:12 09:48 Wound Center Nurse 2 #2 LEFT GONZALEZ ULCER -Time 09:12 -Correct Patient No Yes -Correct Side, Site, Position No Yes -Correct Procedure No Yes -Procedure Performed No No -Post Debridement Size (cm) - Length 0 -Post Debridement Size (cm) - Width 0 -Post Debridement Size (cm) - Depth 0 -Total Square Cm 0 -Wound/Ulcer Outcome Healed- Epithelialized -Ulcer Cleansing Not Cleansed -Foul Odor after Cleansing No -Bioengineered Tissue No -Bleeding Controlled with NA -Treatment Response Procedure Tolerated Well #1- RT LAT GONZALEZ -Time 09:48 -Correct Patient Yes -Correct Side, Site, Position Yes -Correct Procedure Yes -Procedure Performed No -Wound/Ulcer Outcome Not Healed -Ulcer Cleansing Rinsed/ Irrigated with Saline -Foul Odor after Cleansing No -Bioengineered Tissue No -Bleeding Controlled with NA Pain Scale: 0-10 Numeric Is Patient Pain Free? Yes Yes Yes No debridement was completed today Assessment/Plan Active Problems Venous insufficiency (chronic) (peripheral) (Chronic) Non-pressure chronic ulcer of other part of left lower leg limited to breakdown of skin (Chronic) Chronic ulcer of leg with fat layer exposed (Chronic) Blister of left leg without infection (Chronic) Non-pressure chronic ulcer of other part of left lower leg with fat layer exposed (Chronic) Swelling of lower extremity (Chronic) Dependent edema (Chronic) Bilateral leg edema (Chronic) Assessment: This is a 72-year-old female with bilateral lower extremity swelling and edema in her lower extremities. As result of the severe swelling and edema in the left lower extremity, the patient developed several blisters, which subsequently spontaneously burst. They are now currently healed and fully epithelialized. However, the patient has now developed blistering and breakdown on the right anterior tibial surface. The patient has been advised to modify her lifestyle habits, and the measures to be undertaken have been thoroughly explained. She is to continue sleeping on a flat mattress at night. She is to elevate her legs to heart level, or higher, as much as possible during daytime hours. Activity has been encouraged. The patient has been discouraged from prolonged idle sitting and standing. Significant progress has been made in diminishing the swelling and edema in the patient's lower extremities. Her severe ascites, and the apparent reaccumulation of ascitic fluid within the abdominal cavity appear to be a significant current medical problem. She is currently under management by other providers in this regard. Plan: Conservative treatment measures are to be continued. These have been discussed with the patient thoroughly. She is to elevate her lower extremities as much as possible. Elevation is to be to heart level, or higher. She is to sleep on a flat mattress at night, rather than in a recliner. Leg elevation has been encouraged, even during daytime hours, as much as possible. The patient is to refrain from prolonged idle sitting. Activity has been encouraged. Weight loss has been recommended. Optimization of the patient's nutrition, and optimization of the patient's glycemic control has also been recommended. Compression is to be implemented by means of an on the right lower extremity, and a 3M 2 layer compression wrap on the left lower extremity. These wraps are to be changed twice weekly. Concurrently, the patient is to be measured, and an attempt will be made to secure her CircAid compression wraps for the lower extremities, which can be used by the patient long-term following her subsequent discharge. Patient is to return in 1 week for reevaluation. It is anticipated that modification of the patient's lifestyle will likely result in decrease in her lower extremity swelling. Discussed importance of tight blood sugar control, adequate nutrition especially increased protein intake, to promote healing. Discussed importance of edema control--recommended leg elevation above her heart while resting or sleeping, avoiding idle sitting or standing, compression of at least 20-30 mmHg, increased activity, weight management. We will await the results of evaluation regarding the patient's abdominal ascites. Influenza vaccine was not administered today. The patient is not a smoker. The patient stands 5 feet 2 inches tall. She weighs 207 pounds. Her BMI is 37.9, which places her in an obese class II category. Weight loss has been recommended, the patient has been encouraged to collaborate with her primary care physician in this regard.
--- NOTE | 2017-11-09 10:06 | HP.PCM_ITS ---
(1) Venous insufficiency (chronic) (peripheral) Status: Chronic Current Visit: Yes Code(s): I87.2 - Venous insufficiency ( chronic) (peripheral) (2) Non-pressure chronic ulcer of other part of left lower leg limited to breakdown of skin Status: Chronic Current Visit: Yes Code(s): L97.821 - Non-pressure chronic ulcer of other part of left lower leg limited to breakdown of skin (3) Chronic ulcer of leg with fat layer exposed Status: Chronic Current Visit: Yes Qualifiers: Laterality: left Qualified Code(s): L97.922 - Non-pressure chronic ulcer of unspecified part of left lower leg with fat layer exposed Code(s): L97.902 - Non-pressure chronic ulcer of unspecified part of unspecified lower leg with fat layer exposed (4) Blister of left leg without infection Status: Chronic Current Visit: Yes Qualifiers: Encounter type: subsequent encounter Qualified Code(s): S80.822D - Blister (nonthermal), left lower leg, subsequent encounter Code(s): S80.822A - Blister (nonthermal), left lower leg, initial encounter (5) Non-pressure chronic ulcer of other part of left lower leg with fat layer exposed Status: Chronic Current Visit: Yes Code(s): L97.822 - Non-pressure chronic ulcer of other part of left lower leg with fat layer exposed (6) History of breast cancer Status: Chronic Current Visit: No Code(s): Z85.3 - Personal history of malignant neoplasm of breast (7) Swelling of lower extremity Status: Chronic Current Visit: Yes Code(s): M79.89 - Other specified soft tissue disorders (8) Dependent edema Status: Chronic Current Visit: Yes Code(s): R60.9 - Edema, unspecified (9) Ascites Status: Acute Current Visit: No Code(s): R18.8 - Other ascites (10) Abdominal distension Status: Acute Current Visit: No Code(s): R14.0 - Abdominal distension ( gaseous) (11) Chronic kidney disease (CKD) Status: Chronic Current Visit: No Qualifiers: Code(s): N18.9 - Chronic kidney disease, unspecified (12) Protein malnutrition Status: Chronic Current Visit: No Code(s): E46 - Unspecified protein- calorie malnutrition (13) CKD (chronic kidney disease) stage 4, GFR 15-29 ml/min Status: Chronic Current Visit: No Code(s): N18.4 - Chronic kidney disease, stage 4 (severe) (14) Pancytopenia Status: Acute Current Visit: No Code(s): D61.818 - Other pancytopenia (15) Hypercalcemia Status: Acute Current Visit: No Code(s): E83.52 - Hypercalcemia (16) Breast CA Status: Chronic Current Visit: No Code(s): C50.919 - Malignant neoplasm of unspecified site of unspecified female breast (17) TIA (transient ischemic attack) Status: Chronic Current Visit: No (18) DM2 (diabetes mellitus, type 2) Status: Chronic Current Visit: No Code(s): E11.9 - Type 2 diabetes mellitus without complications (19) Bilateral leg edema Status: Chronic Current Visit: Yes Code(s): R60.0 - Localized edema (20) Type 2 diabetes mellitus with other circulatory complications Status: Chronic Current Visit: No Code(s): E11.59 - Type 2 diabetes mellitus with other circulatory complications (21) Benign essential HTN Status: Chronic Current Visit: No Code(s): I10 - Essential (primary) hypertension History of Present Illness Date of Service: 11/09/17 Chief Complaint: Chronic swelling and edema in the lower extremities, with superficial ulcerations and blisters of the left lower extremity History of Wound: This is a 72-year-old female who [facility]. She has been treated for swelling and edema in her lower extremities, associated with blisters and superficial ulcerations. She is currently being managed by the use of 3M 2 layer compression wraps. Venous duplex examination, performed on August 02, 2017, revealed incompetence of the right great saphenous vein, and the left great saphenous vein below the knee. A noninvasive lower extremity arterial study was normal, revealing no evidence of significant arterial occlusive disease in the lower extremities. Of note, the patient began sleeping in a recliner, in an upright position, approximately 1 year ago. She claims to be relatively active, but otherwise spends significant amounts of time each day in an idle sitting position. She has been treated for ulcerations and blisters in the right lower extremity, which are completely healed. Blisters and ulcerations persisted in the left lower extremity, but subsequently healed. The patient presents today with significant clinical changes. There is now breakdown and abrasions on the right anterior tibial surface, associated with new blisters. It appears as though this is related to shifting of her 3M 2 layer compression wraps. The patient has undergone recent laboratory testing, with results as follows: White blood count 3.1, hemoglobin 10.9, hematocrit 33.7 , platelets 98,000, sodium 141, potassium 4.1, chloride 109, BUN 29, creatinine 1.36, glucose 129, calcium 10.6, total bilirubin 1.10, AST 37, ALT 31, alkaline phosphatase 181, total protein 7.2, albumin 3.1. As an aside, the patient has developed severe abdominal distention within the last month. This was thought to be due to the accumulation of ascites. An abdominal ultrasound examination was performed on October 16, 2017, revealing hepatic steatosis, ascites, and splenomegaly. A recent abdominal x-ray was relatively unremarkable. The patient has undergone paracentesis of the ascites fluid on several occasions, with removal of large amounts of ascitic fluid. She is under the care of other providers, including Dr. Herzog, a health specialist. It is suspected that the lower extremity swelling is due to dependency, as well as metabolic factors. 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 lower leg limited to breakdown of skin (Chronic) Chronic ulcer of leg with fat layer exposed (Chronic) Blister of left leg without infection (Chronic) Non-pressure chronic ulcer of other part of left lower leg with fat layer exposed (Chronic) History of breast cancer (Chronic) Swelling of lower extremity (Chronic) Dependent edema (Chronic) Chronic kidney disease (CKD) (Chronic) Protein malnutrition (Chronic) CKD (chronic kidney disease) stage 4, GFR 15-29 ml/min (Chronic) Breast CA (Chronic) TIA (transient ischemic attack) (Chronic) DM2 (diabetes mellitus, type 2) (Chronic) Bilateral leg edema (Chronic) 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 She is a Ab0. Allergies/Adverse Reactions: Allergies clarithromycin [From Biaxin] Allergy (Verified 10/22/17 14:31) Unknown iodine Allergy (Verified 10/22/17 14:31) Unknown Home Medications: Ambulatory Orders Medication Instructions Recorded Aspirin [Aspirin, Baby] 81 mg PO DAILY@0800 08/08/13 Atenolol [Tenormin (beta geraldine)] 100 mg PO DAILY 08/08/13 Metformin(XR) [Glucophage Xr] 1,000 mg PO BID 08/08/13 Furosemide [Lasix] 40 mg PO DAILY #30 tablet 01/04/17 Losartan Potassium [Cozaar] 50 mg PO DAILY #30 tablet 01/04/17 Insulin Lispro [Humalog KwikPen] 0 unit SQ TID 04/15/17 Amlodipine Besylate [Norvasc] 5 mg PO DAILY 07/20/17 - Family History Sibling Cancer - Brother is from cancer that started in his leg, - - The patient's father at age of 85 with a history of congestive heart failure. The patient's mother at the age of 85 due to septic shock from urinary tract infection. Smoking Status: Never smoker Tobacco Use: Non-smoker Review of Systems Constitutional: Denies: Chills, Fever, Weight Change Eyes: Denies: Pain, Vision Change HEENT: Denies: Difficulty Hearing, Difficulty Swallowing, Sinus Congestion Cardiovascular: Denies: Chest Pain, Palpitations Respiratory: Denies: Cough, Shortness of Breath Gastrointestinal: Denies: Diarrhea, Nausea, Vomiting Genitourinary: Denies: Dysuria, Hematuria Endocrine: Denies: Heat/ Cold Intolerance, Polydipsia, Polyuria Hematologic/ Lymphatic: Denies: Easy Bruising, Easy Bleeding - Physical Exam Vital Signs Temp Pulse Resp BP 97.3 F L 93 18 127/90 H 11/09/17 09:18 11/09/17 09:18 11/09/17 09:18 11/09/17 09:18 General: Alert, Oriented x3, Cooperative, No apparent distress, Well developed, Well nourished HEENT: Atraumatic, PERRLA, EOMI, Normocephalic Oral: Moist Mucosa Neck: No JVD Lungs: Normal air movement Abdomen: Non-Distended Extremities: No clubbing, No cyanosis, No Calf Tenderness, Edema, - - Moderate swelling and edema persist in the lower extremities bilaterally. Patient presents now with new abrasions and breakdown on the right anterior tibial surface. This appears due to shifting of her compression wraps. Circumference measurements and dimensions are documented elsewhere. There is no sign of infection or cellulitis. Wound Measurements and Assessment - Nurse 1 - General Ulcer Measurement Start: 10/21/17 13:50 Freq: Status: Active Protocol: Activity Type Activity Date Activity User E-Sign Co-Sign Detail Recorded Client Recorded Date Recorded By Document 11/09/17 09:18 [id number] 11/09/17 09:21 11/09/17 09:18 [facility] Center Nurse 1 [Edema Assessment] -Lower Limb Edema Present Yes -Right Calf (cm) 42.6 -Right Ankle (cm) 20.8 -Left Calf (cm) 42.5 -Left Ankle (cm) 20.8 - Nurse 2 - General Ulcer CM Notes Start: 10/21/17 13:50 Freq: Status: Active Protocol: Activity Type Activity Date Activity User E-Sign Co-Sign Detail Recorded Client Recorded Date Recorded By Document 11/09/17 09:48 [id number] 11/09/17 09:49 11/09/17 09:48 Wound Center Nurse 2 [Procedure/Treatment] #1- RT LAT GONZALEZ -Time 09:48 -Correct Patient Yes -Correct Side, Site, Position Yes -Correct Procedure Yes -Procedure Performed No -Wound/Ulcer Outcome Not Healed -Ulcer Cleansing Rinsed/ Irrigated with Saline -Foul Odor after Cleansing No -Bioengineered Tissue No -Bleeding Controlled with NA [See Physician Procedure note for Specifics] Pain Scale: 0-10 Numeric [Pain] -Is Patient Pain Free? Yes Neurological: Cranial nerves II-XII grossly intact, Neuro grossly intact Psych/Mental Status: Normal Affect, Appropriate, Alert and oriented to time, place, person, mood and affect Debridement Note Post-Debridement Measurements/Treatment - Nurse 2 - General Ulcer CM Notes Start: 10/21/17 13:50 Freq: Status: Active Protocol: Activity Type Activity Date Activity User E-Sign Co-Sign Detail Recorded Client Recorded Date Recorded By Document 10/26/17 12:46 [id number] 10/26/17 12:47 Document 11/02/17 09:12 JS [id number] 11/02/17 09:16 JS Document 11/09/17 09:48 [id number] 11/09/17 09:49 10/26/17 11/02/1711/09/18 12:46 09:12 09:48 Wound Center Nurse 2 #2 LEFT GONZAELZ ULCER -Time 09:12 -Correct Patient No Yes -Correct Side, Site, Position No Yes -Correct Procedure No Yes -Procedure Performed No No -Post Debridement Size (cm) - Length 0 -Post Debridement Size (cm) - Width 0 -Post Debridement Size (cm) - Depth 0 -Total Square Cm 0 -Wound/Ulcer Outcome Healed- Epithelialized -Ulcer Cleansing Not Cleansed -Foul Odor after Cleansing No -Bioengineered Tissue No -Bleeding Controlled with NA -Treatment Response Procedure Tolerated Well #1- RT LAT GONZALEZ -Time 09:48 -Correct Patient Yes -Correct Side, Site, Position Yes -Correct Procedure Yes -Procedure Performed No -Wound/Ulcer Outcome Not Healed -Ulcer Cleansing Rinsed/ Irrigated with Saline -Foul Odor after Cleansing No -Bioengineered Tissue No -Bleeding Controlled with NA Pain Scale: 0-10 Numeric Is Patient Pain Free? Yes Yes Yes No debridement was completed today Assessment/Plan Active Problems Venous insufficiency (chronic) (peripheral) (Chronic) Non-pressure chronic ulcer of other part of left lower leg limited to breakdown of skin (Chronic) Chronic ulcer of leg with fat layer exposed (Chronic) Blister of left leg without infection (Chronic) Non-pressure chronic ulcer of other part of left lower leg with fat layer exposed (Chronic) Swelling of lower extremity (Chronic) Dependent edema (Chronic) Bilateral leg edema (Chronic) Assessment: This is a 72-year-old female with bilateral lower extremity swelling and edema in her lower extremities. As result of the severe swelling and edema in the left lower extremity, the patient developed several blisters, which subsequently spontaneously burst. They are now currently healed and fully epithelialized. However, the patient has now developed blistering and breakdown on the right anterior tibial surface. The patient has been advised to modify her lifestyle habits, and the measures to be undertaken have been thoroughly explained. She is to continue sleeping on a flat mattress at night. She is to elevate her legs to heart level, or higher, as much as possible during daytime hours. Activity has been encouraged. The patient has been discouraged from prolonged idle sitting and standing. Significant progress has been made in diminishing the swelling and edema in the patient's lower extremities. Her severe ascites, and the apparent reaccumulation of ascitic fluid within the abdominal cavity appear to be a significant current medical problem. She is currently under management by other providers in this regard. Plan: Conservative treatment measures are to be continued. These have been discussed with the patient thoroughly. She is to elevate her lower extremities as much as possible. Elevation is to be to heart level, or higher. She is to sleep on a flat mattress at night, rather than in a recliner. Leg elevation has been encouraged, even during daytime hours, as much as possible. The patient is to refrain from prolonged idle sitting. Activity has been encouraged. Weight loss has been recommended. Optimization of the patient's nutrition, and optimization of the patient's glycemic control has also been recommended. Compression is to be implemented by means of an on the right lower extremity, and a 3M 2 layer compression wrap on the left lower extremity. These wraps are to be changed twice weekly. Concurrently, the patient is to be measured, and an attempt will be made to secure her CircAid compression wraps for the lower extremities, which can be used by the patient long-term following her subsequent discharge. Patient is to return in 1 week for reevaluation. It is anticipated that modification of the patient's lifestyle will likely result in decrease in her lower extremity swelling. Discussed importance of tight blood sugar control, adequate nutrition especially increased protein intake, to promote healing. Discussed importance of edema control--recommended leg elevation above her heart while resting or sleeping, avoiding idle sitting or standing, compression of at least 20-30 mmHg, increased activity, weight management. We will await the results of evaluation regarding the patient's abdominal ascites. Influenza vaccine was not administered today. The patient is not a smoker. The patient stands 5 feet 2 inches tall. She weighs 207 pounds. Her BMI is 37.9, which places her in an obese class II category. Weight loss has been recommended, the patient has been encouraged to collaborate with her primary care physician in this regard.
[2017-11-12 10:31] VITALS: BP 136/74; PULSE 78; RESP 16; TEMP 36.6
[2017-11-16 09:41] VITALS: BP 140/71; PULSE 75; RESP 18; TEMP 36.3
--- NOTE | 2017-11-16 10:12 | HP.PCM_ITS ---
(1) Venous insufficiency (chronic) (peripheral) Status: Chronic Current Visit: Yes Code(s): I87.2 - Venous insufficiency ( chronic) (peripheral) (2) Non-pressure chronic ulcer of other part of left lower leg limited to breakdown of skin Status: Resolved Current Visit: Yes Code(s): L97.821 - Non-pressure chronic ulcer of other part of left lower leg limited to breakdown of skin (3) Chronic ulcer of leg with fat layer exposed Status: Resolved Current Visit: Yes Qualifiers: Laterality: left Qualified Code(s): L97.922 - Non-pressure chronic ulcer of unspecified part of left lower leg with fat layer exposed Code(s): L97.902 - Non-pressure chronic ulcer of unspecified part of unspecified lower leg with fat layer exposed (4) Blister of left leg without infection Status: Resolved Current Visit: Yes Qualifiers: Encounter type: subsequent encounter Qualified Code(s): S80.822D - Blister (nonthermal), left lower leg, subsequent encounter Code(s): S80.822A - Blister (nonthermal), left lower leg, initial encounter (5) Non-pressure chronic ulcer of other part of left lower leg with fat layer exposed Status: Resolved Current Visit: Yes Code(s): L97.822 - Non-pressure chronic ulcer of other part of left lower leg with fat layer exposed (6) History of breast cancer Status: Chronic Current Visit: No Code(s): Z85.3 - Personal history of malignant neoplasm of breast (7) Swelling of lower extremity Status: Chronic Current Visit: Yes Code(s): M79.89 - Other specified soft tissue disorders (8) Dependent edema Status: Chronic Current Visit: Yes Code(s): R60.9 - Edema, unspecified (9) Ascites Status: Acute Current Visit: Yes Code(s): R18.8 - Other ascites (10) Abdominal distension Status: Acute Current Visit: Yes Code(s): R14.0 - Abdominal distension ( gaseous) (11) Chronic kidney disease (CKD) Status: Chronic Current Visit: No Qualifiers: Code(s): N18.9 - Chronic kidney disease, unspecified (12) Protein malnutrition Status: Chronic Current Visit: No Code(s): E46 - Unspecified protein- calorie malnutrition (13) CKD (chronic kidney disease) stage 4, GFR 15-29 ml/min Status: Chronic Current Visit: No Code(s): N18.4 - Chronic kidney disease, stage 4 (severe) (14) Pancytopenia Status: Acute Current Visit: No Code(s): D61.818 - Other pancytopenia (15) Hypercalcemia Status: Acute Current Visit: No Code(s): E83.52 - Hypercalcemia (16) Breast CA Status: Chronic Current Visit: No Code(s): C50.919 - Malignant neoplasm of unspecified site of unspecified female breast (17) TIA (transient ischemic attack) Status: Chronic Current Visit: No (18) DM2 (diabetes mellitus, type 2) Status: Chronic Current Visit: No Code(s): E11.9 - Type 2 diabetes mellitus without complications (19) Bilateral leg edema Status: Chronic Current Visit: Yes Code(s): R60.0 - Localized edema (20) Type 2 diabetes mellitus with other circulatory complications Status: Chronic Current Visit: No Code(s): E11.59 - Type 2 diabetes mellitus with other circulatory complications (21) Benign essential HTN Status: Chronic Current Visit: No Code(s): I10 - Essential (primary) hypertension History of Present Illness Date of Service: 11/16/17 Chief Complaint: Chronic swelling and edema in the lower extremities, with superficial ulcerations and blisters of the lower extremities History of Wound: This is a 72-year-old female who [facility]. She has been treated for swelling and edema in her lower extremities, associated with blisters and superficial ulcerations. She is currently being managed by the use of 3M 2 layer compression wraps and Unna boots. Venous duplex examination, performed on August 02, 2017, revealed incompetence of the right great saphenous vein, and the left great saphenous vein below the knee. A noninvasive lower extremity arterial study was normal, revealing no evidence of significant arterial occlusive disease in the lower extremities. Of note, the patient began sleeping in a recliner, in an upright position, approximately 1 year ago. She claims to be relatively active, but otherwise spends significant amounts of time each day in an idle sitting position. She has been treated for ulcerations and blisters in the lower extremities bilaterally. As of today, all ulcerations appear to be completely healed bilaterally. The patient has undergone recent laboratory testing, with results as follows: White blood count 3.1, hemoglobin 10.9, hematocrit 33.7, platelets 98,000, sodium 141, potassium 4.1, chloride 109, BUN 29, creatinine 1.36, glucose 129, calcium 10.6, total bilirubin 1.10, AST 37, ALT 31, alkaline phosphatase 181, total protein 7.2, albumin 3.1. As an aside, the patient has developed severe abdominal distention within the last month. This was thought to be due to the accumulation of ascites. An abdominal ultrasound examination was performed on October 16, 2017, revealing hepatic steatosis, ascites, and splenomegaly. A recent abdominal x-ray was relatively unremarkable. The patient has undergone paracentesis of the ascites fluid on several occasions, with removal of large amounts of ascitic fluid. She is under the care of other providers, including Dr. Herzog, a math and physics instructor. It is suspected that the lower extremity swelling is due to dependency, as well as metabolic factors. 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 She is a Ab0. Allergies/Adverse Reactions: Allergies clarithromycin [From Biaxin] Allergy (Verified 10/22/17 14:31) Unknown iodine Allergy (Verified 10/22/17 14:31) Unknown Home Medications: Ambulatory Orders Medication Instructions Recorded Aspirin [Aspirin, Baby] 81 mg PO DAILY@0800 08/08/13 Atenolol [Tenormin (beta geraldine)] 100 mg PO DAILY 08/08/13 Metformin(XR) [Glucophage Xr] 1,000 mg PO BID 08/08/13 Furosemide [Lasix] 40 mg PO DAILY #30 tablet 01/04/17 Losartan Potassium [Cozaar] 50 mg PO DAILY #30 tablet 01/04/17 Insulin Lispro [Humalog KwikPen] 0 unit SQ TID 04/15/17 Amlodipine Besylate [Norvasc] 5 mg PO DAILY 07/20/17 - Family History Sibling Cancer - Brother is from cancer that started in his leg, - - The patient's father at age of 85 with a history of congestive heart failure. The patient's mother at the age of 85 due to septic shock from urinary tract infection. Smoking Status: Never smoker Tobacco Use: Non-smoker Review of Systems Constitutional: Denies: Chills, Fever, Weight Change Eyes: Denies: Pain, Vision Change HEENT: Denies: Difficulty Hearing, Difficulty Swallowing, Sinus Congestion Cardiovascular: Denies: Chest Pain, Palpitations Respiratory: Denies: Cough, Shortness of Breath Gastrointestinal: Denies: Diarrhea, Nausea, Vomiting Genitourinary: Denies: Dysuria, Hematuria Endocrine: Denies: Heat/ Cold Intolerance, Polydipsia, Polyuria Hematologic/ Lymphatic: Denies: Easy Bruising, Easy Bleeding - Physical Exam Vital Signs Temp Pulse Resp BP 97.3 F L 75 18 140/71 H 11/16/17 09:41 11/16/17 09:41 11/16/17 09:41 11/16/17 09:41 General: Alert, Oriented x3, Cooperative, No apparent distress, Well developed, Well nourished HEENT: Atraumatic, PERRLA, EOMI, Normocephalic Oral: Moist Mucosa Neck: No JVD Lungs: Normal air movement Abdomen: Soft, Distended, - - Significant abdominal distention is noted today. Extremities: No clubbing, No cyanosis, No edema, No Calf Tenderness, - - There is no significant swelling or edema in either lower extremity. There are no open ulcerations or wounds on either lower extremity. There is no sign of infection or cellulitis. Minor ecchymoses are noted in the distal right lower extremity. Wound Measurements and Assessment WC - Nurse 1 - General Ulcer Measurement Start: 10/21/17 13:50 Freq: Status: Active Protocol: Activity Type Activity Date Activity User E-Sign Co-Sign Detail Recorded Client Recorded Date Recorded By Document 11/16/17 09:41 DONALDO [id number] 11/16/17 09:43 DONALDO 11/16/17 09:41 Wound Center Nurse 1 [Ulcer Assessment] #1- RT LAT GONZALEZ -Combined with other wound No -Current Size (cm) - Length 0 -Current Size (cm) - Width 0 -Current Size (cm) - Depth 0 -Total Square Cm 0 -Photo Taken Yes -Epithelialization Large 67-100% -Tunneling No -Undermining/Tunneling No -Circular Undermining No [Edema Assessment] -Lower Limb Edema Present Yes -Right Calf (cm) 37.5 -Right Ankle (cm) 21.2 -Left Calf (cm) 33.0 -Left Ankle (cm) 20.3 - Nurse 2 - General Ulcer CM Notes Start: 10/21/17 13:50 Freq: Status: Active Protocol: Activity Type Activity Date Activity User E-Sign Co-Sign Detail Recorded Client Recorded Date Recorded By Document 11/16/17 10:01 JS [id number] 11/16/17 10:01 11/16/17 10:01 Wound Center Nurse 2 [Procedure/Treatment] #1- RT LAT GONZALEZ -Time 10:01 -Correct Patient Yes -Correct Side, Site, Position Yes -Correct Procedure Yes -Procedure Performed No -Wound/Ulcer Outcome Healed- Epithelialized -Bleeding Controlled with NA [See Physician Procedure note for Specifics] Pain Scale: 0-10 Numeric [Pain] -Is Patient Pain Free? Yes Musculoskeletal: No Muscle Wasting Neurological: Cranial nerves II-XII grossly intact, Neuro grossly intact Psych/Mental Status: Normal Affect, Appropriate, Alert and oriented to time, place, person, mood and affect Debridement Note Post-Debridement Measurements/Treatment WC - Nurse 2 - General Ulcer CM Notes Start: 10/21/17 13:50 Freq: Status: Active Protocol: Activity Type Activity Date Activity User E-Sign Co-Sign Detail Recorded Client Recorded Date Recorded By Document 10/26/17 12:46 JF [id number] 10/26/17 12:47 JF Document 11/02/17 09:12 JS [id number] 11/02/17 09:16 JS Document 11/09/17 09:48 JS [id number] 11/09/17 09:49 JS Document 11/16/17 10:01 JS [id number] 11/16/17 10:01 JS 10/26/17 11/02/17 11/09/17 12:46 09:12 09:48 Wound Center Nurse 2 #2 LEFT GONZALEZ ULCER -Time 09:12 -Correct Patient No Yes -Correct Side, Site, Position No Yes -Correct Procedure No Yes -Procedure Performed No No -Post Debridement Size (cm) - Length 0 -Post Debridement Size (cm) - Width 0 -Post Debridement Size (cm) - Depth 0 -Total Square Cm 0 -Wound/Ulcer Outcome Healed- Epithelialized -Ulcer Cleansing Not Cleansed -Foul Odor after Cleansing No -Bioengineered Tissue No -Bleeding Controlled with NA -Treatment Response Procedure Tolerated Well #1- RT LAT GONZALEZ -Time 09:48 -Correct Patient Yes -Correct Side, Site, Position Yes -Correct Procedure Yes -Procedure Performed No -Wound/Ulcer Outcome Not Healed -Ulcer Cleansing Rinsed/ Irrigated with Saline -Foul Odor after Cleansing No -Bioengineered Tissue No -Bleeding Controlled with NA Pain Scale: 0-10 Numeric Is Patient Pain Free? Yes Yes Yes 11/16/17 10:01 Wound Center Nurse 2 #2 LEFT GONZALEZ ULCER -Time -Correct Patient -Correct Side, Site, Position -Correct Procedure -Procedure Performed -Post Debridement Size (cm) - Length -Post Debridement Size (cm) - Width -Post Debridement Size (cm) - Depth -Total Square Cm -Wound/Ulcer Outcome -Ulcer Cleansing -Foul Odor after Cleansing -Bioengineered Tissue -Bleeding Controlled with -Treatment Response #1- RT LAT GONZALEZ -Time 10:01 -Correct Patient Yes -Correct Side, Site, Position Yes -Correct Procedure Yes -Procedure Performed No -Wound/Ulcer Outcome Healed- Epithelialized -Ulcer Cleansing -Foul Odor after Cleansing -Bioengineered Tissue -Bleeding Controlled with NA Pain Scale: 0-10 Numeric Is Patient Pain Free? Yes No debridement was completed today Assessment/Plan Active Problems Venous insufficiency (chronic) (peripheral) (Chronic) Swelling of lower extremity (Chronic) Dependent edema (Chronic) Ascites (Acute) Abdominal distension (Acute) Bilateral leg edema (Chronic) Assessment: This is a 72-year-old female with bilateral lower extremity swelling and edema in her lower extremities. As result of the severe swelling and edema in the left lower extremity, the patient developed several blisters, which subsequently spontaneously burst. They are now currently healed and fully epithelialized. There are no open wounds or ulcerations at this time. The swelling and edema in the lower extremities appears to be well controlled with current measures. The patient has been advised to modify her lifestyle habits, and the measures to be undertaken have been thoroughly explained. She is to continue sleeping on a flat mattress at night. She is to elevate her legs to heart level, or higher, as much as possible during daytime hours. Activity has been encouraged. The patient has been discouraged from prolonged idle sitting and standing. Significant progress has been made in diminishing the swelling and edema in the patient's lower extremities. Her severe ascites, and the apparent reaccumulation of ascitic fluid within the abdominal cavity appear to be a significant current medical problem. She is currently under management by other providers in this regard. She has an appointment with Dr. Herzog tomorrow, at which time she is to learn more about the etiology and prognosis regarding her recurring ascites. Plan: Conservative treatment measures are to be continued. These have been discussed with the patient thoroughly. She is to elevate her lower extremities as much as possible. Elevation is to be to heart level, or higher. She is to sleep on a flat mattress at night, rather than in a recliner. Leg elevation has been encouraged, even during daytime hours, as much as possible. The patient is to refrain from prolonged idle sitting. Activity has been encouraged. Weight loss has been recommended. Optimization of the patient's nutrition, and optimization of the patient's glycemic control has also been recommended. Compression is to be implemented by means of 3M 2 layer compression wraps on both lower extremities, which will be changed twice weekly. The patient has been measured for CircAid compression garments bilaterally, which are awaited, and should be available soon. Patient is to return in 1 week for reevaluation. It is anticipated that modification of the patient's lifestyle will likely result in decrease in her lower extremity swelling. Discussed importance of tight blood sugar control, adequate nutrition especially increased protein intake, to promote healing. Discussed importance of edema control--recommended leg elevation above her heart while resting or sleeping, avoiding idle sitting or standing, compression of at least 20-30 mmHg, increased activity, weight management. We will await the results of evaluation regarding the patient's abdominal ascites. Influenza vaccine was not administered today. The patient is not a smoker. The patient stands 5 feet 2 inches tall. She weighs 207 pounds. Her BMI is 37.9, which places her in an obese class II category. Weight loss has been recommended, the patient has been encouraged to collaborate with her primary care physician in this regard.
== END 2017-11-18 23:59 ==
LOC: WC 09:30
PROVIDERS: Family Provider Family Medicine; PCP Family Medicine; Visit Provider Surgery
DX: E11.622 Type 2 diabetes mellitus with other skin ulcer (principal); N20.0 Calculus of kidney; L97.821 Non-pressure chronic ulcer of other part of left lower leg limited to breakdown of skin; Z85.3 Personal history of malignant neoplasm of breast; M79.89 Other specified soft tissue disorders; R60.0 Localized edema; R18.8 Other ascites; E11.51 Type 2 diabetes mellitus with diabetic peripheral angiopathy without gangrene; E11.22 Type 2 diabetes mellitus with diabetic chronic kidney disease; N18.4 Chronic kidney disease, stage 4 (severe); I12.9 Hypertensive chronic kidney disease with stage 1 through stage 4 chronic kidney disease, or unspecified chronic kidney disease; E66.9 Obesity, unspecified; Z68.37 Body mass index [BMI] 37.0-37.9, adult; Z71.3 Dietary counseling and surveillance
CPT/HCPCS: 29580; 29581; 74018; 99211; 99212; 99213; G0463

== ENCOUNTER → 2017-11-17 14:01 | Outpatient (CLI) | payer MEDICARE, SELFPAY ==
[2017-11-17 16:21] LABS: Anion Gap 7 (5-15); BUN 37 mg/dL (7-18); Calcium,Total 10.3 mg/dL (8.5-10.1); Chloride 110 mmol/L (98-107); Creatinine, Serum 1.48 mg/dL (0.55-1.02); EST Glomerular Filtration Rate 37 mL/min (>60); Est Glom Filt Rate - Afr Amer 45 mL/min (>60); Glucose 139 mg/dL (74-106); Potassium 4.5 mmol/L (3.5-5.1); Sodium Level 144 mmol/L (136-145)
== END ==
PROVIDERS: Family Provider Family Medicine; PCP Family Medicine; Visit Provider Internal Medicine Gastroenterology
DX: R18.8 Other ascites (principal); Z79.899 Other long term (current) drug therapy
CPT/HCPCS: 36415; 80048

== ENCOUNTER → 2017-11-19 09:25 | Outpatient (CLI) | payer MEDICARE, SELFPAY ==
[2017-11-19 10:15] LABS: Albumin, Serum 2.7 g/dL (3.2-5.0); LDH 190 U/L (84-246); Lipase 167 U/L (73-393)
--- NOTE | 2017-11-19 13:57 | US_ITS ---
PROCEDURE: Ultrasound guided paracentesis. DATE OF EXAMINATION: November 19, 2017. INDICATION: Female, 72 years old. Ascites. PHYSICIAN: Rigo Britt M.D. TECHNIQUE: The risks, benefits, and alternatives to the procedure were explained to the patient. The specific risks of bleeding, infection, and damage to bowel were detailed and accepted. Witnessed informed consent was obtained. The abdomen was ultrasonographically surveyed. An appropriate pocket of fluid was identified at the right lower quadrant. The skin were cleaned and prepped in the usual sterile fashion. Using ultrasound guidance, the peritoneal cavity was accessed with a 5-Tajik paracentesis needle/catheter system. The trocar was removed. A total of 8000 ml of harsh-colored fluid were removed from the peritoneal cavity. The catheter was removed and a sterile dressing was applied. The procedure was well tolerated. US/Paracentesis with US IMPRESSION: Ultrasound guided paracentesis. Electronically Signed: Rigo Britt MD at 15:41 EDT Tel [phone], Service support ,
[2017-11-19 14:27] VITALS: BP 147/74; PULSE 73; RESP 18; O2SAT 97
[2017-11-19 14:40] VITALS: BP 135/62; PULSE 73; RESP 18; O2SAT 97
[2017-11-19 15:26] VITALS: BP 128/54; PULSE 68; RESP 18; O2SAT 98
--- NOTE | 2017-11-19 15:28 | NURSING ---
ANJELICA, [facility], AND MYSELF WORKED WITH PATIENT TO PLAN FOR NEXT WEEK'S APPT. APPT MADE FOR PT WEDNESDAY.
== END ==
PROVIDERS: Family Provider Family Medicine; PCP Family Medicine; Visit Provider Internal Medicine Gastroenterology
DX: R18.8 Other ascites (principal)
CPT/HCPCS: 36415; 49083; 82040; 83615; 83690

== ENCOUNTER → 2017-11-22 09:28 | Outpatient (CLI) | payer MEDICARE, SELFPAY ==
--- NOTE | 2017-11-22 09:28 | DT_ITS ---
This patient was seen during an EMR downtime November 22, 2017 - November 29, 2017. This patient may have a combination of paper and electronic documentation or all paper documentation. All documentation is viewable within the e-chart portion of [facility] for each patient visit.
--- NOTE | 2017-11-22 11:00 | US_ITS ---
PROCEDURE: ULTRASOUND GUIDED PARACENTESIS CLINICAL HISTORY: Female, 72 years old. ASCITES CONSENT: The risks, benefits and alternatives to the procedure were explained to the patient, and the patient agreed to the procedure and signed the consent. 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 PROCEDURE/TECHNIQUE: The risks, benefits, and alternatives to the procedure were explained to patient, and the patient agreed to the procedure and signed a consent form for the procedure. TECHNIQUE: Under the ultrasound guidance using sterile technique and after infiltration of the skin and subcutaneous soft tissues with 10 mL of lidocaine 1% a 5 Estonian drainage catheter is introduced in the lower part of the abdomen. 8000 mL of fluid were removed sample sent to lab for evaluation. The patient tolerated the procedure there was no immediate complication. FINDINGS: FLUID PRE-PROCEDURE There is posterior enhancement. The findings appear anechoic. There is no loculation. Volume measurement: 8000 ml. FLUID POST-PROCEDURE Amount of fluid drained: 8000 ml. US/Paracentesis with US IMPRESSION: Successful ultrasound-guided paracentesis. Electronically Signed: Samra Martinez MD at 13:22 EDT Tel , Service support ,
[2017-11-26 20:44] LABS: International Normalized Ratio 1.1; Partial Thromboplast Time 29.4 Seconds (24.1-36.2); Prothrombin Time (Protime)PT. 13.9 SECONDS (11.7-14.9)
== END ==
PROVIDERS: Family Provider Family Medicine; PCP Family Medicine; Visit Provider Internal Medicine Gastroenterology
DX: R18.8 Other ascites (principal)
CPT/HCPCS: 36415; 49083; 85610; 85730

== ENCOUNTER → 2017-11-24 12:45 | Outpatient (CLI) | payer MEDICARE, SELFPAY ==
--- NOTE | 2017-11-24 12:45 | DT_ITS ---
This patient was seen during an EMR downtime November 22, 2017 - November 29, 2017. This patient may have a combination of paper and electronic documentation or all paper documentation. All documentation is viewable within the e-chart portion of [facility] for each patient visit.
[2017-11-29 15:42] LABS: Iron 115 ug/dL (50-170); Iron Binding Capacity,Total 232 ug/dL (250-450); PERCENT IRON SATURATION 49.6 % (15.0-55.0)
[2017-11-29 15:43] LABS: Ferritin 339 ng/mL (8-252)
== END ==
PROVIDERS: Family Provider Family Medicine; PCP Family Medicine; Visit Provider Internal Medicine Hematology & Oncology
DX: D61.818 Other pancytopenia (principal); D50.8 Other iron deficiency anemias
CPT/HCPCS: 82728; 83540; 83550

== ENCOUNTER → 2017-11-25 09:01 | Outpatient (CLI) | payer MEDICARE, SELFPAY ==
--- NOTE | 2017-11-25 09:01 | DT_ITS ---
This patient was seen during an EMR downtime November 22, 2017 - November 29, 2017. This patient may have a combination of paper and electronic documentation or all paper documentation. All documentation is viewable within the e-chart portion of [facility] for each patient visit.
--- NOTE | 2017-11-25 09:05 | US_ITS ---
PROCEDURE: ULTRASOUND GUIDED PARACENTESIS CLINICAL HISTORY: Female, 72 years old. ASCITES CONSENT: The risks, benefits and alternatives to the procedure were explained to the patient, and the patient agreed to the procedure and signed the consent. 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 PROCEDURE/TECHNIQUE: The risks, benefits, and alternatives to the procedure were explained to patient, and the patient agreed to the procedure and signed a consent form for the procedure. TECHNIQUE: Under the ultrasound guidance using sterile technique and after infiltration of the skin and subcutaneous soft tissues with 10 mL of lidocaine 1% a 5 Albanian drainage catheter is introduced in the lower part of the abdomen. 3650 mL of fluid were removed sample sent to lab for evaluation. The patient tolerated the procedure there was no immediate complication. FINDINGS: FLUID PRE-PROCEDURE There is posterior enhancement. The findings appear anechoic. There is no loculation. Volume measurement: 4000 ml. FLUID POST-PROCEDURE Amount of fluid drained: 3650 ml. US/Paracentesis with US IMPRESSION: Successful ultrasound-guided paracentesis. Electronically Signed: Samra Martinez MD at 14:06 EDT Tel , Service support ,
== END ==
PROVIDERS: Family Provider Family Medicine; PCP Family Medicine; Visit Provider Internal Medicine Gastroenterology
DX: R18.8 Other ascites (principal)
CPT/HCPCS: 49083

== ENCOUNTER → 2017-12-02 12:10 | Outpatient (CLI) | payer MEDICARE, SELFPAY ==
--- NOTE | 2017-12-02 12:13 | US_ITS ---
PROCEDURE: ULTRASOUND GUIDED PARACENTESIS CLINICAL HISTORY: Female, 72 years old. ASCITES CONSENT: The risks, benefits and alternatives to the procedure were explained to the patient, and the patient agreed to the procedure and signed the consent. 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 PROCEDURE/TECHNIQUE: The risks, benefits, and alternatives to the procedure were explained to patient, and the patient agreed to the procedure and signed a consent form for the procedure. TECHNIQUE: Under the ultrasound guidance using sterile technique and after infiltration of the skin and subcutaneous soft tissues with 10 mL of lidocaine 1% a 5 English drainage catheter is introduced in the lower part of the abdomen. 5100 mL of fluid were removed sample sent to lab for evaluation. The patient tolerated the procedure there was no immediate complication. FINDINGS: FLUID PRE-PROCEDURE There is posterior enhancement. The findings appear anechoic. There is no loculation. Volume measurement: 5100 ml. FLUID POST-PROCEDURE Amount of fluid drained: 5100 ml. US/Paracentesis with US IMPRESSION: Successful ultrasound-guided paracentesis. Electronically Signed: Samra Martinez MD at 10:22 EDT Tel , Service support ,
== END ==
PROVIDERS: Family Provider Family Medicine; PCP Family Medicine; Visit Provider Internal Medicine Gastroenterology
DX: R18.8 Other ascites (principal)
CPT/HCPCS: 49083

== ENCOUNTER → 2017-12-10 10:08 | Outpatient (CLI) | payer MEDICARE, SELFPAY ==
--- NOTE | 2017-12-10 10:14 | US_ITS ---
PROCEDURE: Ultrasound guided paracentesis. DATE OF EXAMINATION: December 10, 2017. INDICATION: Female, 72 years old. Ascites. PHYSICIAN: Rigo Britt M.D. TECHNIQUE: The risks, benefits, and alternatives to the procedure were explained to the patient. The specific risks of bleeding, infection, and damage to bowel were detailed and accepted. Witnessed informed consent was obtained. The abdomen was ultrasonographically surveyed. An appropriate pocket of fluid was identified at the left lower quadrant. The skin were cleaned and prepped in the usual sterile fashion. Using ultrasound guidance, the peritoneal cavity was accessed with a 5-Monegasque paracentesis needle/catheter system. The trocar was removed. A total of 6350 ml of harsh-colored fluid were removed from the peritoneal cavity. The catheter was removed and a sterile dressing was applied. The procedure was well tolerated. US/Paracentesis with US IMPRESSION: Ultrasound guided paracentesis. Electronically Signed: Rigo rBitt MD at 12:30 EDT Tel [phone], Service support ,
== END ==
PROVIDERS: Family Provider Family Medicine; PCP Family Medicine; Visit Provider Internal Medicine Gastroenterology
DX: R18.8 Other ascites (principal)
CPT/HCPCS: 49083

== ENCOUNTER 2017-12-14 10:30 | Outpatient (RCR) | payer MEDICARE, SELFPAY ==
[2017-11-19 00:40] VITALS: BP 140/71; PULSE 75; RESP 18; TEMP 36.3
[2017-11-19 10:36] VITALS: BP 142/69; PULSE 76; RESP 18; TEMP 35.8
[2017-11-30 09:17] VITALS: BP 122/49; PULSE 72; RESP 16; TEMP 36.4
--- NOTE | 2017-11-30 09:52 | HP.PCM_ITS ---
(1) Venous insufficiency (chronic) (peripheral) Status: Chronic Current Visit: Yes Code(s): I87.2 - Venous insufficiency ( chronic) (peripheral) (2) Non-pressure chronic ulcer of other part of left lower leg limited to breakdown of skin Status: Resolved Current Visit: No Code(s): L97.821 - Non-pressure chronic ulcer of other part of left lower leg limited to breakdown of skin (3) Chronic ulcer of leg with fat layer exposed Status: Resolved Current Visit: No Qualifiers: Code(s): L97.902 - Non-pressure chronic ulcer of unspecified part of unspecified lower leg with fat layer exposed (4) Blister of left leg without infection Status: Resolved Current Visit: No Qualifiers: Code(s): S80.822A - Blister (nonthermal), left lower leg, initial encounter (5) Non-pressure chronic ulcer of other part of left lower leg with fat layer exposed Status: Resolved Current Visit: No Code(s): L97.822 - Non-pressure chronic ulcer of other part of left lower leg with fat layer exposed (6) History of breast cancer Status: Chronic Current Visit: No Code(s): Z85.3 - Personal history of malignant neoplasm of breast (7) Swelling of lower extremity Status: Chronic Current Visit: Yes Code(s): M79.89 - Other specified soft tissue disorders (8) Dependent edema Status: Chronic Current Visit: Yes Code(s): R60.9 - Edema, unspecified (9) Ascites Status: Acute Current Visit: Yes Code(s): R18.8 - Other ascites (10) Abdominal distension Status: Acute Current Visit: Yes Code(s): R14.0 - Abdominal distension ( gaseous) (11) Chronic kidney disease (CKD) Status: Chronic Current Visit: No Qualifiers: Code(s): N18.9 - Chronic kidney disease, unspecified (12) Protein malnutrition Status: Chronic Current Visit: No Code(s): E46 - Unspecified protein- calorie malnutrition (13) CKD (chronic kidney disease) stage 4, GFR 15-29 ml/min Status: Chronic Current Visit: No Code(s): N18.4 - Chronic kidney disease, stage 4 (severe) (14) Pancytopenia Status: Acute Current Visit: No Code(s): D61.818 - Other pancytopenia (15) Hypercalcemia Status: Acute Current Visit: No Code(s): E83.52 - Hypercalcemia (16) Breast CA Status: Chronic Current Visit: No Code(s): C50.919 - Malignant neoplasm of unspecified site of unspecified female breast (17) TIA (transient ischemic attack) Status: Chronic Current Visit: No (18) DM2 (diabetes mellitus, type 2) Status: Chronic Current Visit: No Code(s): E11.9 - Type 2 diabetes mellitus without complications (19) Non-pressure chronic ulcer of other part of right lower leg with fat layer exposed Status: Resolved Current Visit: No Code(s): L97.812 - Non-pressure chronic ulcer of other part of right lower leg with fat layer exposed (20) Bilateral leg edema Status: Chronic Current Visit: Yes Code(s): R60.0 - Localized edema (21) 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 She has been treated for swelling and edema in her lower extremities, associated with blisters and superficial ulcerations. She is currently being managed by the use of 3M 2 layer compression wraps. Venous duplex examination, performed on August 02, 2017, revealed incompetence of the right great saphenous vein, and the left great saphenous vein below the knee. A noninvasive lower extremity arterial study was normal, revealing no evidence of significant arterial occlusive disease in the lower extremities. Of note, the patient began sleeping in a recliner, in an upright position, approximately 1 year ago. She claims to be relatively active, but otherwise spends significant amounts of time each day in an idle sitting position. She has been treated for ulcerations and blisters in the lower extremities bilaterally. All ulcerations are now completely healed bilaterally. The patient has undergone recent laboratory testing, with results as follows: White blood count 3.1, hemoglobin 10.9, hematocrit 33.7, platelets 98,000, sodium 141, potassium 4.1, chloride 109, BUN 29, creatinine 1.36, glucose 129, calcium 10.6, total bilirubin 1.10, AST 37, ALT 31, alkaline phosphatase 181, total protein 7.2, albumin 3.1. As an aside, the patient has developed severe abdominal distention within the last several months. This was thought to be due to the accumulation of ascites. An abdominal ultrasound examination was performed on October 16, 2017, revealing hepatic steatosis, ascites, and splenomegaly. A recent abdominal x-ray was relatively unremarkable. The patient has undergone paracentesis of the ascites fluid on numerous occasions, and as recently as 5 days ago, with removal of large amounts of ascitic fluid. She is under the care of other providers, including Dr. Herzog, a sole cementer. It is suspected that the lower extremity swelling is due to dependency, as well as metabolic factors. 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 She is a Ab0. Allergies/Adverse Reactions: Allergies clarithromycin [From Biaxin] Allergy (Verified 10/22/17 14:31) Unknown iodine Allergy (Verified 10/22/17 14:31) Unknown Home Medications: Ambulatory Orders Medication Instructions Recorded Aspirin [Aspirin, Baby] 81 mg PO DAILY@0800 08/08/13 Atenolol [Tenormin (beta geraldine)] 100 mg PO DAILY 08/08/13 Metformin(XR) [Glucophage Xr] 1,000 mg PO BID 08/08/13 Furosemide [Lasix] 40 mg PO DAILY #30 tablet 01/04/17 Losartan Potassium [Cozaar] 50 mg PO DAILY #30 tablet 01/04/17 Insulin Lispro [Humalog KwikPen] 0 unit SQ TID 04/15/17 Amlodipine Besylate [Norvasc] 5 mg PO DAILY 07/20/17 - Family History Sibling Cancer - Brother is from cancer that started in his leg, - - The patient's father at age of 85 with a history of congestive heart failure. The patient's mother at the age of 85 due to septic shock from urinary tract infection. Smoking Status: Never smoker Tobacco Use: Non-smoker Review of Systems Constitutional: Denies: Chills, Fever, Weight Change Eyes: Denies: Pain, Vision Change HEENT: Denies: Difficulty Hearing, Difficulty Swallowing, Sinus Congestion Cardiovascular: Denies: Chest Pain, Palpitations Respiratory: Denies: Cough, Shortness of Breath Gastrointestinal: Denies: Diarrhea, Nausea, Vomiting Genitourinary: Denies: Dysuria, Hematuria Endocrine: Denies: Heat/ Cold Intolerance, Polydipsia, Polyuria Hematologic/ Lymphatic: Denies: Easy Bruising, Easy Bleeding - Physical Exam Vital Signs Temp Pulse Resp BP 97.5 F L 72 16 122/49 H 11/30/17 09:17 11/30/17 09:17 11/30/17 09:17 11/30/17 09:17 General: Alert, Oriented x3, Cooperative, No apparent distress, Well developed, Well nourished HEENT: Atraumatic, PERRLA, EOMI, Normocephalic Oral: Moist Mucosa Neck: No JVD Lungs: Normal air movement Abdomen: - - Mild abdominal distention is noted, but improved over prior weeks. Extremities: No clubbing, No cyanosis, No edema, No Calf Tenderness, - - There is no significant swelling or edema in the patient's lower extremities. There has been significant improvement in recent weeks. There are no open wounds or ulcerations. There is no sign of infection or cellulitis. Skin: No rashes, No breakdown Wound Measurements and Assessment WC - Nurse 1 - General Ulcer Measurement Start: 11/19/17 10:36 Freq: Status: Active Protocol: Activity Type Activity Date Activity User E-Sign Co-Sign Detail Recorded Client Recorded Date Recorded By Document 11/30/17 09:17 DONALDO [id number] 11/30/17 09:21 DONALDO 11/30/17 09:17 [facility] Nurse 1 [Ulcer Assessment] #1- RT LAT GONZALEZ -Combined with other wound No -Current Size (cm) - Length 0 -Current Size (cm) - Width 0 -Current Size (cm) - Depth 0 -Total Square Cm 0 [Edema Assessment] -Lower Limb Edema Present Yes -Right Calf (cm) 31 -Right Ankle (cm) 19.6 -Left Calf (cm) 32 -Left Ankle (cm) 19.5 Musculoskeletal: No Muscle Wasting Neurological: Cranial nerves II-XII grossly intact, Neuro grossly intact Psych/Mental Status: Normal Affect, Appropriate, Alert and oriented to time, place, person, mood and affect Debridement Note No debridement was completed today Assessment/Plan Active Problems Venous insufficiency (chronic) (peripheral) (Chronic) Swelling of lower extremity (Chronic) Dependent edema (Chronic) Ascites (Acute) Abdominal distension (Acute) Bilateral leg edema (Chronic) 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 As result of the severe swelling and edema in the left lower extremity, the patient developed several blisters, which subsequently spontaneously burst. They are now currently healed and fully epithelialized. There are no open wounds or ulcerations at this time. The swelling and edema in the lower extremities appears to be well controlled with current measures. The patient has been advised to modify her lifestyle habits, and the measures to be undertaken have been thoroughly explained. She is to continue sleeping on a flat mattress at night. She is to elevate her legs to heart level, or higher, as much as possible during daytime hours. Activity has been encouraged. The patient has been discouraged from prolonged idle sitting and standing. Significant progress has been made in diminishing the swelling and edema in the patient's lower extremities. Her severe ascites, and the apparent reaccumulation of ascitic fluid within the abdominal cavity, appear to be a significant current medical problem. She is currently under management by other providers in this regard. Plan: Conservative treatment measures are to be continued. These have been discussed with the patient thoroughly. She is to elevate her lower extremities as much as possible. Elevation is to be to heart level, or higher. She is to sleep on a flat mattress at night, rather than in a recliner. Leg elevation has been encouraged, even during daytime hours, as much as possible. The patient is to refrain from prolonged idle sitting. Activity has been encouraged. Weight loss has been recommended. Optimization of the patient's nutrition, and optimization of the patient's glycemic control has also been recommended. Compression is to be continued by means of 3M 2 layer compression wraps on both lower extremities, which will be changed twice weekly. The patient has been measured for CircAid compression garments bilaterally, which are awaited, and should be available soon. Patient is to return in 2 weeks for reevaluation. It is anticipated that modification of the patient's lifestyle will likely result in long-term decrease in her lower extremity swelling. Discussed importance of tight blood sugar control, adequate nutrition especially increased protein intake, to promote healing. Discussed importance of edema control--recommended leg elevation above her heart while resting or sleeping, avoiding idle sitting or standing, compression of at least 20-30 mmHg , increased activity, weight management. We will await the results of evaluation and management regarding the patient's abdominal ascites. Influenza vaccine was not administered today. The patient is not a smoker. The patient stands 5 feet 2 inches tall. She weighs 207 pounds. Her BMI is 37.9, which places her in an obese class II category. Weight loss has been recommended, the patient has been encouraged to collaborate with her primary care physician in this regard.
[2017-12-03 11:50] VITALS: BP 110/64; PULSE 66; RESP 16; TEMP 36.6
[2017-12-07 09:55] VITALS: BP 131/53; PULSE 67; RESP 16; TEMP 36.9
[2017-12-14 11:02] VITALS: BP 108/67; PULSE 75; RESP 16; TEMP 36.4
== END 2017-12-18 23:59 ==
LOC: WC 10:30
PROVIDERS: Family Provider Family Medicine; PCP Family Medicine; Visit Provider Surgery
DX: E11.59 Type 2 diabetes mellitus with other circulatory complications (principal); Z85.3 Personal history of malignant neoplasm of breast; M79.89 Other specified soft tissue disorders; R60.0 Localized edema; E11.22 Type 2 diabetes mellitus with diabetic chronic kidney disease; N18.4 Chronic kidney disease, stage 4 (severe); I12.9 Hypertensive chronic kidney disease with stage 1 through stage 4 chronic kidney disease, or unspecified chronic kidney disease; E66.9 Obesity, unspecified; Z68.37 Body mass index [BMI] 37.0-37.9, adult; Z71.3 Dietary counseling and surveillance
CPT/HCPCS: 29581; 99211; 99212; 99213; G0463

== ENCOUNTER → 2017-12-17 14:01 | Outpatient (CLI) | payer MEDICARE, SELFPAY ==
--- NOTE | 2017-12-17 14:04 | US_ITS ---
PROCEDURE: Ultrasound guided paracentesis. DATE OF EXAMINATION: December 17, 2017.. INDICATION: Female, 72 years old. Ascites. PHYSICIAN: Rigo Britt M.D. TECHNIQUE: The risks, benefits, and alternatives to the procedure were explained to the patient. The specific risks of bleeding, infection, and damage to bowel were detailed and accepted. Witnessed informed consent was obtained. The abdomen was ultrasonographically surveyed. An appropriate pocket of fluid was identified at the right lower quadrant. The skin were cleaned and prepped in the usual sterile fashion. Using ultrasound guidance, the peritoneal cavity was accessed with a 5-Thai paracentesis needle/catheter system. The trocar was removed. A total of 3000 ml of harsh-colored fluid were removed from the peritoneal cavity. The catheter was removed and a sterile dressing was applied. The procedure was well tolerated. US/Paracentesis with US IMPRESSION: Ultrasound guided paracentesis. Electronically Signed: Rigo Britt MD at 15:14 EDT Tel [phone], Service support ,
== END ==
PROVIDERS: Family Provider Family Medicine; PCP Family Medicine; Visit Provider Internal Medicine Gastroenterology
DX: R18.8 Other ascites (principal)
CPT/HCPCS: 49083

== ENCOUNTER → 2017-12-20 10:42 | Outpatient (CLI) | payer MEDICARE, SELFPAY ==
--- NOTE | 2017-12-20 10:43 | BI_ITS ---
MAMMOGRAPHY - UNILATERAL SCREENING: LEFT BREAST REASON FOR EXAM: Female, 72 years old. Routine annual screening examination (unilateral). PERTINENT HISTORY: Personal history of breast cancer. Prior right mastectomy with chemotherapy. TECHNIQUE: Digital unilateral breast mague (3D mammographic acquisition) in the CC and MLO projections. 2-D mediolateral oblique (MLO) and craniocaudad (CC) views of both breasts were obtained. CAD: Full Field Digital Mammography with Computer Added Detection was performed. COMPARISON: Comparison is made with prior study dated November 24, 2016 and April 16, 2014. FINDINGS: Breast Composition: The breasts are almost entirely fatty. There are no dominant masses or suspicious calcifications. No other significant abnormalities are identified. There has been no significant change since the prior study. BI/UNILAT LT SCRN W/CAD IMPRESSION: Stable unilateral screening mammogram. Yearly follow-up mammogram recommended. (A) ASSESSMENT CATEGORY: BIRADS Category 1: Negative. A letter regarding these results will be sent to the patient by the facility within 30 days. Approximately 10% of breast cancers are not detected by mammography. A normal mammogram should not delay biopsy of a clinically suspicious abnormality. [id number] Electronically Signed: Rigo Britt MD at 14:54 EDT Tel [phone], Service support ,
== END ==
PROVIDERS: Family Provider Family Medicine; PCP Family Medicine; Visit Provider Family Medicine
DX: Z12.31 Encounter for screening mammogram for malignant neoplasm of breast (principal)
CPT/HCPCS: 77061; 77067; G0279

== ENCOUNTER → 2017-12-23 10:09 | Outpatient (CLI) | payer MEDICARE, SELFPAY ==
[2017-12-20 12:34] LABS: International Normalized Ratio 1.1; Prothrombin Time (Protime)PT. 13.8 SECONDS (11.7-14.9)
[2017-12-20 12:35] LABS: Partial Thromboplast Time 27.5 Seconds (24.1-36.2)
--- NOTE | 2017-12-23 10:19 | US_ITS ---
PROCEDURE: Ultrasound guided paracentesis. DATE OF EXAMINATION: December 23, 2017. INDICATION: Female, 72 years old. Ascites. PHYSICIAN: Rigo Britt M.D. TECHNIQUE: The risks, benefits, and alternatives to the procedure were explained to the patient. The specific risks of bleeding, infection, and damage to bowel were detailed and accepted. Witnessed informed consent was obtained. The abdomen was ultrasonographically surveyed. An appropriate pocket of fluid was identified at the left lower quadrant. The skin were cleaned and prepped in the usual sterile fashion. Using ultrasound guidance, the peritoneal cavity was accessed with a 5-Faroese paracentesis needle/catheter system. The trocar was removed. A total of 6550 ml of harsh-colored fluid were removed from the peritoneal cavity. The catheter was removed and a sterile dressing was applied. The procedure was well tolerated. US/Paracentesis with US IMPRESSION: Ultrasound guided paracentesis. Electronically Signed: Rigo Britt MD at 12:26 EDT Tel [phone], Service support ,
[2017-12-23 11:40] VITALS: BP 115/41; PULSE 66; RESP 16; O2SAT 97
[2017-12-23 13:13] VITALS: BP 111/36; PULSE 63; RESP 16; O2SAT 97
== END ==
PROVIDERS: Family Provider Family Medicine; PCP Family Medicine; Visit Provider Internal Medicine Gastroenterology
DX: R18.8 Other ascites (principal); K74.60 Unspecified cirrhosis of liver
CPT/HCPCS: 36415; 49083; 85610; 85730

== ENCOUNTER → 2017-12-30 12:56 | Outpatient (CLI) | payer MEDICARE, SELFPAY ==
--- NOTE | 2017-12-30 13:00 | US_ITS ---
PROCEDURE: Ultrasound guided paracentesis. DATE OF EXAMINATION: December 30, 2017.. INDICATION: Female, 72 years old. Ascites. PHYSICIAN: Rigo Britt M.D. TECHNIQUE: The risks, benefits, and alternatives to the procedure were explained to the patient. The specific risks of bleeding, infection, and damage to bowel were detailed and accepted. Witnessed informed consent was obtained. The abdomen was ultrasonographically surveyed. An appropriate pocket of fluid was identified at the right lower quadrant. The skin were cleaned and prepped in the usual sterile fashion. Using ultrasound guidance, the peritoneal cavity was accessed with a 5-Bulgarian paracentesis needle/catheter system. The trocar was removed. A total of 4700 ml of harsh-colored fluid were removed from the peritoneal cavity. The catheter was removed and a sterile dressing was applied. The procedure was well tolerated. US/Paracentesis with US IMPRESSION: Ultrasound guided paracentesis. Electronically Signed: Rigo Britt MD at 15:17 EDT Tel [phone], Service support ,
[2017-12-30 13:30] VITALS: BP 133/49; PULSE 67; RESP 16; O2SAT 94; BMI 32.3
[2017-12-30 13:45] VITALS: BP 107/45; PULSE 66; RESP 16; O2SAT 99
[2017-12-30 14:05] VITALS: BP 113/54; PULSE 68; RESP 16; O2SAT 99
== END ==
PROVIDERS: Family Provider Family Medicine; PCP Family Medicine; Visit Provider Internal Medicine Gastroenterology
DX: R18.8 Other ascites (principal); K74.60 Unspecified cirrhosis of liver
CPT/HCPCS: 49083

== ENCOUNTER → 2017-12-31 14:14 | Outpatient (CLI) | payer MEDICARE, SELFPAY ==
[2017-12-31 15:44] LABS: Anion Gap 7 (5-15); BUN 67 mg/dL (7-18); Calcium,Total 10.4 mg/dL (8.5-10.1); Chloride 112 mmol/L (98-107); Creatinine, Serum 1.97 mg/dL (0.55-1.02); EST Glomerular Filtration Rate 27 mL/min (>60); Est Glom Filt Rate - Afr Amer 32 mL/min (>60); Glucose 193 mg/dL (74-106); Potassium 5.8 mmol/L (3.5-5.1); Sodium Level 143 mmol/L (136-145)
== END ==
PROVIDERS: Family Provider Family Medicine; PCP Family Medicine; Visit Provider Internal Medicine Gastroenterology
DX: Z79.899 Other long term (current) drug therapy (principal)
CPT/HCPCS: 36415; 80048

== ENCOUNTER → 2018-01-06 12:12 | Outpatient (CLI) | payer MEDICARE, SELFPAY ==
--- NOTE | 2018-01-06 12:14 | US_ITS ---
PROCEDURE: Ultrasound guided paracentesis. DATE OF EXAMINATION: January 06, 2018.. INDICATION: Female, 72 years old. Ascites. PHYSICIAN: Rigo Britt M.D. TECHNIQUE: The risks, benefits, and alternatives to the procedure were explained to the patient. The specific risks of bleeding, infection, and damage to bowel were detailed and accepted. Witnessed informed consent was obtained. The abdomen was ultrasonographically surveyed. An appropriate pocket of fluid was identified at the left lower quadrant. The skin were cleaned and prepped in the usual sterile fashion. Using ultrasound guidance, the peritoneal cavity was accessed with a 5-Georgian paracentesis needle/catheter system. The trocar was removed. A total of 4350 ml of harsh-colored fluid. were removed from the peritoneal cavity. The catheter was removed and a sterile dressing was applied. The procedure was well tolerated. US/Paracentesis with US IMPRESSION: Ultrasound guided paracentesis. Electronically Signed: Rigo Britt MD at 14:01 EDT Tel [phone], Service support ,
== END ==
PROVIDERS: Family Provider Family Medicine; PCP Family Medicine; Visit Provider Internal Medicine Gastroenterology
DX: R18.8 Other ascites (principal); K74.60 Unspecified cirrhosis of liver
CPT/HCPCS: 49083

== ENCOUNTER → 2018-01-13 12:15 | Outpatient (CLI) | payer MEDICARE, SELFPAY ==
--- NOTE | 2018-01-13 12:17 | US_ITS ---
PROCEDURE: ULTRASOUND GUIDED PARACENTESIS CLINICAL HISTORY: Female, 72 years old. Diffuse ascites CONSENT: Informed consent obtained Time-Out Called: Yes. Consent form signed: Yes. PT-PTT Levels Checked: Yes. SEDATION: Local TECHNIQUE: Ultrasound guided FINDINGS: FLUID PRE-PROCEDURE There is posterior enhancement. The findings appear anechoic. There is no loculation. FLUID POST-PROCEDURE Amount of fluid drained: 4700 ml. US/Paracentesis with US IMPRESSION: Successful large volume ultrasound-guided paracentesis with removal of approximately 4700 mL of straw-colored serous fluid from the abdomen. Patient tolerated the procedure well with no immediate complications Electronically Signed: Ish Alcocer MD at 14:38 EDT , Service support ,
[2018-01-13 13:00] VITALS: BP 125/83; PULSE 65; RESP 18; O2SAT 92
[2018-01-13 13:15] VITALS: BP 98/65; PULSE 80; RESP 16; O2SAT 98
[2018-01-13 13:30] VITALS: BP 101/42; PULSE 80; RESP 16; O2SAT 98
[2018-01-13 13:45] VITALS: BP 98/43; PULSE 60; RESP 16; O2SAT 98
== END ==
PROVIDERS: Family Provider Family Medicine; PCP Family Medicine; Visit Provider Internal Medicine Gastroenterology
DX: R18.8 Other ascites (principal); K74.60 Unspecified cirrhosis of liver
CPT/HCPCS: 49083

== ENCOUNTER → 2018-01-20 12:13 | Outpatient (CLI) | payer MEDICARE, SELFPAY ==
[2018-01-19 12:43] LABS: Prothrombin Time (Protime)PT. 13.4 SECONDS (11.7-14.9)
[2018-01-19 12:44] LABS: Partial Thromboplast Time 27.9 Seconds (24.1-36.2)
--- NOTE | 2018-01-20 12:19 | US_ITS ---
PROCEDURE: Ultrasound guided paracentesis. DATE OF EXAMINATION: January 20, 2018.. INDICATION: Female, 72 years old. Ascites. PHYSICIAN: Rigo Britt M.D. TECHNIQUE: The risks, benefits, and alternatives to the procedure were explained to the patient. The specific risks of bleeding, infection, and damage to bowel were detailed and accepted. Witnessed informed consent was obtained. The abdomen was ultrasonographically surveyed. An appropriate pocket of fluid was identified at the right lower quadrant. The skin were cleaned and prepped in the usual sterile fashion. Using ultrasound guidance, the peritoneal cavity was accessed with a 5-Khmer paracentesis needle/catheter system. The trocar was removed. A total of 5500 ml of harsh-colored fluid were removed from the peritoneal cavity. The catheter was removed and a sterile dressing was applied. The procedure was well tolerated. US/Paracentesis with US IMPRESSION: Ultrasound guided paracentesis. Electronically Signed: Rigo Britt MD at 13:53 EDT Tel [phone], Service support ,
[2018-01-20 12:37] VITALS: BP 130/66; PULSE 72; RESP 16; O2SAT 94; BMI 32.5
[2018-01-20 12:50] VITALS: BP 124/53; PULSE 65; RESP 16; O2SAT 99
[2018-01-20 13:05] VITALS: BP 116/69; PULSE 67; RESP 16; O2SAT 94
[2018-01-20 13:20] VITALS: BP 100/47; PULSE 62; RESP 16; O2SAT 97
== END ==
PROVIDERS: Family Provider Family Medicine; PCP Family Medicine; Visit Provider Internal Medicine Gastroenterology
DX: R18.8 Other ascites (principal); K74.60 Unspecified cirrhosis of liver
CPT/HCPCS: 36415; 49083; 85610; 85730

== ENCOUNTER → 2018-01-21 13:57 | Outpatient (CLI) | payer MEDICARE, SELFPAY ==
[2018-01-21 16:11] LABS: Absolute Lymphocyte Count 0.52 X10^3/ul (0.83-4.51); Absolute Neutrophil Count 2.4 X10^3/uL (2.0-7.7); Basophil# 0.02 X10^3/uL; Basophil% 0.6 % (0-1); Eosinophil# 0.29 X10^3/uL; Eosinophils% 8.5 % (0-5); Hematocrit 31.4 % (37-47); Lymphocyte # 0.52 X10^3/ul (4.0); Lymphocyte % 15.2 % (19-41); Mean Corp Hgb Conc 31.8 g/gl (32-36); Mean Corpuscular Volume 97.2 fL (81-99); Mean Platelet Vol. 10.9 fl (6.2-12.0); Monocyte% 5.8 % (0-10); Neutrophil # 2.39 X10^3/uL (2.7-7.7); Neutrophil % 69.9 % (47-70); Platelet Count 77 K/mm3 (150-450); RBC Distribution Width CV 14.9 % (11.6-14.6); RBC Distribution Width SD 50.7 fl (35.1-43.9); Red Blood Count 3.23 M/mm3 (4.2-5.4); White Blood Count 3.4 K/mm3 (4.4-11.0)
[2018-01-21 16:12] LABS: Differential Indicated SCAN CRITERIA MET; POSITIVE COUNT NO; POSITIVE DIFFERENTIAL YES; POSITIVE MORPHOLOGY NO
[2018-01-21 16:32] LABS: ALB/GLOB Ratio 0.7 RATIO (0.9-2.4); AST(SGOT) 58 U/L (15-37); Alanine Aminotransfer ALT/SGPT 74 U/L (13-56); Albumin, Serum 2.7 g/dL (3.2-5.0); Alkaline Phosphatase 145 U/L (45-117); Anion Gap 7 (5-15); BUN 89 mg/dL (7-18); BUN/Creat Ratio 36.5 RATIO (10-20); Calcium,Total 9.9 mg/dL (8.5-10.1); Chloride 109 mmol/L (98-107); Creatinine, Serum 2.44 mg/dL (0.55-1.02); EST Glomerular Filtration Rate 21 mL/min (>60); Est Glom Filt Rate - Afr Amer 25 mL/min (>60); Globulin 3.7 g/dL (2.2-4.2); Glucose 156 mg/dL (74-106); Potassium 6.1 mmol/L (3.5-5.1); Protein, Total 6.4 g/dL (6.4-8.2); Sodium Level 140 mmol/L (136-145)
[2018-01-21 16:52] LABS: Differential Comment SCANNED
[2018-01-22 09:00] LABS: Anion Gap 5 (5-15); BUN 91 mg/dL (7-18); BUN/Creat Ratio 39.1 RATIO (10-20); Calcium,Total 9.9 mg/dL (8.5-10.1); Chloride 111 mmol/L (98-107); Creatinine, Serum 2.33 mg/dL (0.55-1.02); EST Glomerular Filtration Rate 22 mL/min (>60); Est Glom Filt Rate - Afr Amer 27 mL/min (>60); Glucose 179 mg/dL (74-106); Potassium 6.2 mmol/L (3.5-5.1); Sodium Level 142 mmol/L (136-145)
== END ==
PROVIDERS: Family Medicine; Family Provider Family Medicine; PCP Family Medicine; Visit Provider Family Medicine
DX: K75.81 Nonalcoholic steatohepatitis (NASH) (principal)
CPT/HCPCS: 36415; 80048; 80053; 82140; 85025

== ENCOUNTER → 2018-01-22 07:57 | Outpatient (CLI) | payer MEDICARE, SELFPAY | PROVIDERS: Family Provider Family Medicine; PCP Family Medicine; Visit Provider Family Medicine | DX: Z00.00 Encounter for general adult medical examination without abnormal findings (principal) ==

== ENCOUNTER 2018-01-22 10:45 | Inpatient (IN) | payer MEDICARE, SELFPAY ==
[2018-01-22] VITALS (10 sets, daily range): BP systolic 107–151; BP diastolic 53–88; PULSE 67–90; RESP 10–18; TEMP 36.8–36.9; O2SAT 96–100; BMI 30.4
--- NOTE | 2018-01-22 11:03 | ED.DCSUM_ITS ---
- ER Visit Summary Date of Service: 01/22/18 Chief Complaint: High potassium History of Present Illness: The patient is a 72 F who had screening lab work yesterday and showed a potassium of 6.1. Patient has no history of this in the past. She returned this morning and had a potassium of 6.2. She states that she is sluggish kidneys but no other history of kidney disease. She is on Lasix every other day. She has had diarrhea occasionally but nothing constant. She has been eating and drinking well. She has a history of fatty liver disease and has weekly paracentesis. Her last one was 2 days ago. Physical Examination: Vital signs reviewed. HEENT exam unremarkable. Heart is regular rate and rhythm without murmurs. Lungs are clear to auscultation. Abdomen is soft and nontender. Extremities reveal no edema. Skin exam normal. Neurologic exam normal. Test Results: EKG sinus rhythm. There is a peaked T-wave in V2. Hemoglobin 10. Potassium 6.2, chloride 111. BUN 91 and creatinine 2.33 Emergency Department Course and Treatment: Patient was hydrated with saline. She was given insulin, glucose and sodium bicarb. She was also given calcium. The patient's creatinine is increasing. She was 1.3-1.4 in October. She is now up to 2.3-2.4. I believe that due to this she should be admitted to the hospital. Patient was discussed with the hospitalist Treatment Plan: [] Disposition: Admit Impression: Hyperkalemia, acute kidney injury This note was generated with [employer] dictation software. It may contain incorrect words, spelling, and punctuation that were not noted in review of the chart prior to signing ED Disposition - Plan for ED Patient: Chief Complaint: Abn Labs Referrals: Nicola Bay MD [Primary Care Provider] -
[2018-01-22 11:17] LABS: Absolute Lymphocyte Count 0.44 X10^3/ul (0.83-4.51); Absolute Neutrophil Count 2.5 X10^3/uL (2.0-7.7); Basophil# 0.02 X10^3/uL; Basophil% 0.6 % (0-1); Eosinophil# 0.25 X10^3/uL; Eosinophils% 7.4 % (0-5); Hematocrit 30.2 % (37-47); Lymphocyte # 0.44 X10^3/ul (4.0); Mean Corp Hgb Conc 33.1 g/gl (32-36); Mean Corpuscular Hgb 31.4 pg (27.0-32.0); Mean Platelet Vol. 9.4 fl (6.2-12.0); Monocyte# 0.18 X10^3/uL; Monocyte% 5.3 % (0-10); Neutrophil # 2.49 X10^3/uL (2.7-7.7); Neutrophil % 73.7 % (47-70); Platelet Count 69 K/mm3 (150-450); Red Blood Count 3.18 M/mm3 (4.2-5.4); White Blood Count 3.4 K/mm3 (4.4-11.0)
[2018-01-22 11:23] LABS: Differential Indicated SCAN CRITERIA MET; POSITIVE COUNT NO; POSITIVE DIFFERENTIAL YES; POSITIVE MORPHOLOGY NO
[2018-01-22 11:35] LABS: Differential Comment SCANNED
[2018-01-22] MEDS: Dextrose 50%-Water 25 GM/50 ML DISP.SYRIN IV (11:40)
[2018-01-22] MEDS: Sodium Bicarbonate 8.4% 50 ML Syringe 50 MEQ IV (11:40)
[2018-01-22] MEDS: Calcium Gluconate 1 GM/10 ML Vial IV (11:41)
--- NOTE | 2018-01-22 11:54 | HP.PCM_ITS ---
Problem List (1) Hyperkalemia Status: Acute History of Present Illness Date of Admission: 01/22/18 Chief Complaint: hyperkalemia The patient is a 72 year old F with a history of cirrhosis due to nonalcoholic steatohepatitis, hypertension, diabetes. She was admitted this morning with a potassium of 6.2. She saw her family doctor in his office yesterday and had screening lab work which showed potassium of 6.1. She was called at home and told to come to the hospital for another lab test. She came into the hospital this morning for the lab test and repeat labs showed potassium of 6.2. She was therefore brought to the ED. She denies any history of kidney disease but states that she was told her kidneys are sluggish. She has therapeutic paracentesis done every week and the last one done was 2 days ago and her spindle maker office and she states 5.5 L of ascitic fluid was taken out. She did receive any albumin as she has been told that she needs to have about 8 L taken out before she can be given albumin. She denies any nausea vomiting or recent diarrhea and has been eating and drinking well. She did have any chest pain, dizziness or palpitations no lightheadedness. EKG in the ED showed normal sinus rhythm with no evidence of hyperkalemic changes. Vitals done in the ED showed a temperature of 98.5 Fahrenheit, blood pressure 151/63, respiratory rate of 16 and she was saturating at 98% on room air. Pulse rate was 90. She has been admitted to be managed for hyperkalemia. BMP showed potassium was 6.2, creatinine of 2.33, sodium of 142 and bicarb of 26. CBC was significant for hemoglobin of 10 and platelets of 69. She has been admitted to be managed for hyperkalemia and COURTNEY on CKD. She received potassium depleting cocktail in the ED. 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) Benign essential HTN (Chronic) Allergies clarithromycin [From Biaxin] Allergy (Verified 01/22/18 10:47) Unknown iodine Allergy (Verified 01/22/18 10:47) Unknown Home Medications: Ambulatory Orders Medication Instructions Recorded Atenolol [Tenormin (beta geraldine)] 100 mg PO DAILY 08/08/13 Metformin(XR) [Glucophage Xr] 1,000 mg PO BID 08/08/13 Losartan Potassium [Cozaar] 50 mg PO DAILY #30 tablet 01/04/17 Insulin Lispro [Humalog KwikPen] See Protocol SQ TID 04/15/17 Amlodipine Besylate [Norvasc] 5 mg PO DAILY 07/20/17 Furosemide [Lasix] 40 mg PO QODAY 01/22/18 Surgical History: mastectomy, - - Patient has had a right mastectomy and appendectomy. She is a Ab0. Lives: Alone Smoking Status: Never smoker Tobacco Use: Non-smoker Alcohol: None - *Family History Sibling History Items: Cancer - Brother is from cancer that started in his leg , - - The patient's father at age of 85 with a history of congestive heart failure. The patient's mother at the age of 85 due to septic shock from urinary tract infection. Review of Systems Constitutional: Denies: Chills, Fever, Weight Change Eyes: Reports: Redness. Denies: Blurred vision HEENT: Denies: Head Aches, Sinus Congestion, Sinus Drainage Cardiovascular: Denies: Chest Pain, Chest Pressure, Chest Tightness, Edema, Orthopnea, Palpitations, Paroxysmal Noc. Dyspnea, Syncope Respiratory: Denies: Cough, Shortness of breath at rest, Sputum production Gastrointestinal: Denies: Abdominal Pain, Diarrhea, Dyspepsia, Nausea, Vomiting Genitourinary: Denies: Dysuria Musculoskeletal: Denies: Joint Pain, Joint Tenderness Skin: Denies: Rash, Wounds Neurological: Denies: Numbness, Tingling, Focal weakness Psychiatric: Denies: Anxiety, Depression, Homicidal Ideations, Suicidal Ideations Hematologic/ Lymphatic: Denies: Easy Bruising, Easy Bleeding VTE Information - Inpt Only VTE Present on Admission: No VTE Mechan Device Prophylaxis: SCD's VTE Pharm Prophylaxis ordered?: No Reason prophylaxis not ordered:: Medical Contraindication - Thrombocytopenia Patient Problems: Active and Suspected Problems Hyperkalemia (Acute) - Physical Exam General: Alert, Oriented x3, Cooperative, No apparent distress HEENT: PERRLA, EOMI, Normocephalic, - - conjuctival erythema, no pain with movement of eyeball, no discharge visualised Oral: Moist Mucosa Neck: Supple, No JVD, Negative Carotid Bruits, No Nodes Lungs: Clear to auscultation, Normal air movement Cardiovascular: Regular rate, Regular Rhythm, Normal S1, Normal S2, No murmurs Abdomen: Bowel Sounds Present, Soft, Non Tender, - - distended abdomen, with postive fluid thrill Extremities: No clubbing, No cyanosis, Capillary Refill Less than 3 Seconds, - - mild 1+ bipedal pitting pedal edema Skin: No rashes, No breakdown Musculoskeletal: No Tenderness to Palpation of Joints or Extremities Lymphatic: No Cervical, Supraclavicular, or Inguinal Adenopathy Neurological: Cranial nerves II-XII grossly intact, Motor Exam 5/5 strength throughout Psych/Mental Status: Normal Affect, Appropriate, Alert and oriented to time, place, person, mood and affect Comment: right mastectomy scar Vital Signs Temp Pulse Resp BP Pulse Ox 98.5 F 79 17 151/63 H 97 01/22/18 10:46 01/22/18 11:07 01/22/18 11:07 01/22/18 10:46 01/22/18 11:07 Oxygen Delivery Method Room Air Weight: 166 lb 3.657 oz Body Mass Index (BMI) 30.4 Laboratory Tests Past 24 Hrs 01/22/18 11:07 WBC 3.4 L RBC 3.18 L Hgb 10.0 L Hct 30.2 L MCV 95.0 MCH 31.4 MCHC 33.1 RDW 15.0 H RDW Differential 52.0 H Plt Count 69 L MPV 9.4 Immature Gran % (Auto) 0.000 Neut % (Auto) 73.7 H Lymph % (Auto) 13.0 L [place] % (Auto) 5.3 Eos % (Auto) 7.4 H Baso % (Auto) 0.6 Absolute Neuts (auto) 2.5 Absolute Lymphs (auto) 0.44 L Total Counted Not Reportable Differential Comment SCANNED Assessment/Plan All Active Problems Non-pressure chronic ulcer of other part of left lower leg limited to breakdown of skin (Resolved) Chronic ulcer of leg with fat layer exposed (Resolved) Blister of left leg without infection (Resolved) Non-pressure chronic ulcer of other part of left lower leg with fat layer exposed (Resolved) Ascites (Acute) Abdominal distension (Acute) Hyperkalemia (Acute) Pancytopenia (Acute) Hypercalcemia (Acute) Non-pressure chronic ulcer of other part of right lower leg with fat layer exposed (Resolved) 72-year-old female with past medical history of nonalcoholic severe hepatitis with ascites, having weekly therapeutic paracentesis, hypertension, hyperlipidemia and diabetes. He was admitted after incidental lab finding of hyperkalemia 1.Hyperkalemia likely due to COURTNEY * K was 6.1 yesterday, 6.2 on repeat today * EKG showed NSR * received potassium depleting cocktail in the ED * will start kayexalate 30mg and monitor potassium * 2. COURTNEY on CKD * Cr was 2.33 today; was 2.44 when checked yesterday * baseline is ~ 1.3-1.4 * BP was in 90s systolic at time of review. She says her BP usually runs in 120s systolic; Cannot say what her BP was after paracentesis on * it is possible that she may have had asymptomatic hypotension after paracentesis, resulting in hypoperfusion to the kidneys * I cannot rule out Hepatorenal syndrome (likely type 2) completely also * Very gentle hydration with IV fluids normal saline. Due to patient's ascites and liver disease, I am quite reticent about giving IVF. * Will give IV fluids normal saline for total of 1 L and check kidney function; will consider giving albumin for plasma expansion after discussion with nephrology * will consult nephrology. * will hold lasix and ANGEL-I. * FeuRea was 34.3%, indicating pre-renal kidney disease * urinalysis showed urine protein of 15; otherwise grossly unremarkable * urgent kidney USG only showed nonobstructing bilateral renal calculi, with the largest measuring up to 5mm; no hydronephrosis * FeUrea was 34.3%, urine sodium was 32. * Decision to transfer patient to [facility] on account of lack of Kayexalate in the hospital aborted as pharmacy managed to get some doses of Kayexalate for patient. 3. Diabetes mellitus type 2 * will hold metformin o/a of COURTNEY * ISS. Accuchecks ACHS * 4. HTN: lasix and ANGEL-I on hold o/a of COURTNEY 5. GUEVARA with cirrhosis * has regular therapeutic paracentesis; last being 2 days ago with removal of 5.5 L of IV fluid. * currently stable. * on lasix, which is on hold * 6. Thrombocytopenia: Platelets of 69. This likely due to liver disease. Will monitor. 7. DVT prophylaxis: SCDs. No anti-correlation on account of thrombocytopenia 8. GI prophylaxis: famotidine Code status: Full code. Different types of CODE STATUS explained to patient and her 2 nieces, the different meanings and interpretation. I counseled patient about difference between DNR CCA, DNR CC and full code. Patient got quite emotional during this discussion. Patient elects to be full code; stated that she does not want to be kept alive on machines for long if she is going to become a vegetable, and would want her code status changed by her POA then. States she has a living will but will have a copy in our documentation on file. Her niece will be her power of trade mark attorney. Family counseled to bring a copy of the living w1ll. [id number] time 15 minutes This note was generated with [employer] dictation software. It may contain incorrect words, spelling, and punctuation that were not noted in checking the note before signing. * Code Visit Inpatient E&M: 52426 Subs Hosp L3 Procedures: 45060 Advncd Care Plan 30 Min
--- NOTE | 2018-01-22 12:52 | US_ITS ---
STUDY: RENAL ULTRASOUND - COMPLETE REASON FOR EXAM: Female, 72 years old. Increased potassium. TECHNIQUE: Ultrasound evaluation of the kidneys was performed with real-time and static barbosa-scale imaging. COMPARISON: None. FINDINGS: RIGHT KIDNEY: Normal location of the right kidney, which is normal in size. The right kidney measures 9.0 cm in length. There is a normal cortex of the right kidney. The renal cortex measures 1.3 cm. There is no right renal mass or cyst. There are renal calculi the largest measuring up to 5 mm. There is no right hydronephrosis. DISTAL RIGHT URETER: There is no demonstrated right ureteral jet. LEFT KIDNEY: Normal location of the left kidney, which is normal in size. The left kidney measures 10.0 cm in length. There is a normal cortex of the left kidney. The renal cortex measures 1.3 cm. There is no left renal mass or cyst. There are renal calculi the largest measuring up to 5 mm. There is no left hydronephrosis. DISTAL LEFT URETER: There is no demonstrated left ureteral jet. BLADDER: The distended urinary bladder has a volume of 149.5 ml. The empty urinary bladder has a volume of 48.1 ml. There is a normal wall thickness of the distended urinary bladder. There is no demonstrated mass within the urinary bladder. There are no demonstrated bladder calculi. There is free fluid present. US/Kidney and Bladder IMPRESSION: No hydronephrosis identified. Bilateral nonobstructing renal calculi the largest measuring up to 5 mm. Ascites. Electronically Signed: Candice Patel MD at 14:19 EDT Tel , Service support ,
[2018-01-22] MEDS: 0.9% Normal Saline 1,000 ML 75 ML IV (13:47)
[2018-01-22] MEDS: amLODIPine 5 MG Tablet PO (13:52)
[2018-01-22] MEDS: Atenolol 50 MG Tablet 100 MG PO (13:52)
--- NOTE | 2018-01-22 14:15 | CASEMGMT ---
EVAN ANDERSON Face to Face with patient for initial transition planning/care coordination assessment. RN MONICA introduced self and role at [facility]. Patient lying in bed, alert and oriented, nephew in room. Patient willing to participate in assessment and is able to answer all questions appropriately. Care providers, pharmacy, and demographics verified. See link attached. Patient wishes to discharge home, denies need for home health at this time. Patient states she has no further needs or concerns at this time. CM to follow for discharge planning needs that may arise. Disposition Plan: Patient to discharge home with family support and follow-up plans in place.
[2018-01-22 14:59] LABS: Bacteria 0 SEEN /hpf (None Seen); Mucous, Urine 0 SEEN /hpf (<or=2+); Red Blood Cells-Urine 0 SEEN /hpf (0-5); Squamous Epithelial Cells - UA 0 SEEN /hpf (5-10)
[2018-01-22 15:04] LABS: Color, Urine Yellow (Yellow); Glucose, Dipstick 250 mg/dl (Normal); Ketone-Dipstick Negative (Negative); Leukocyte Esterase-Dipstick 25 /ul (Negative); Nitrite-Dipstick Negative (Negative); Occult Blood-Urine Negative /ul (Negative); Protein-Dipstick 15 mg/dl (Negative); Specific Gravity, Urine 1.015 (1.002-1.030); Urine Bilirubin Dipstick Negative (Negative); Urine Clarity Clear (Clear); Urine Urobilinogen Normal (Normal)
[2018-01-22 15:08] LABS: Urine Sodium 32 mmol/L (Not Establ.)
[2018-01-22 15:17] LABS: Urea Nitrogen, Urine 810 mg/dL (NO RANGE EST.)
[2018-01-22] MEDS: Sodium Polystyrene Sulfonate 15 GM/60 ML UDC 30 GM PO (15:18)
[2018-01-22 15:29] LABS: Hyaline Cast 0-5 SEEN /lpf (0-5)
[2018-01-22 15:30] LABS: White Blood Cells 0-5 SEEN /hpf (0-5)
[2018-01-22 15:43] LABS: Anion Gap 8 (5-15); BUN 86 mg/dL (7-18); BUN/Creat Ratio 39.6 RATIO (10-20); Calcium,Total 9.9 mg/dL (8.5-10.1); Chloride 112 mmol/L (98-107); Creatinine, Serum 2.17 mg/dL (0.55-1.02); EST Glomerular Filtration Rate 24 mL/min (>60); Est Glom Filt Rate - Afr Amer 29 mL/min (>60); Estimated Creatinine Clearance 18.81 ml/min; Glucose 291 mg/dL (74-106); Potassium 5.9 mmol/L (3.5-5.1); Sodium Level 145 mmol/L (136-145)
[2018-01-22] MEDS: SODIUM POLYSTYRENE SULFON/SORB 15 GM/60 ML ORAL.SUSP 30 GM PO (16:35)
[2018-01-22] MEDS: Insulin Lispro 100 UNIT/ML INSULN.PEN SQ ×2 (16:42→22:01)
[2018-01-22 17:01] LABS: Bedside Glucose 282 mg/dL (70-110)
--- NOTE | 2018-01-22 18:44 | PCM.CONS.R ---
Problem List (1) Acute kidney injury superimposed on chronic kidney disease Status: Acute (2) Hyperkalemia Status: Acute Consultation - Renal PCP/ Referring MD: Requesting physician: [] Primary care physician: Nicola Bay - History of Present Illness History of Present Illness: The patient is a 72 year old F PMH of 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 Last one was 2 days ago of 5.5 L without albumin Patient presented with worsening kidney function and hyperkalemia of 6.1. Patient also was taking losartan 50 mg PO daily and lasix 40 mg PO every other day Patient was given 2 doses of kayexalate 15 g and started on IVF 75 cc.hour NS. Patient said she had 4 BM so far today The repeated K level is 5.9 and Cr is trending down No NSAIDs use. No UTI like symptoms ROS: 12 systems review is negative [] - Allergies Allergies: Allergies clarithromycin [From Biaxin] Allergy (Verified 01/22/18 10:47) Unknown iodine Allergy (Verified 01/22/18 10:47) Unknown - Current Medications Current Medications: Current Medications Amlodipine Besylate (Norvasc) 5 mg PO DAILY [facility] Atenolol (Tenormin (Beta Stuart)) 100 mg PO DAILY [facility] Dextrose (D50w Syringe) 0 gm IV X1 PRN; Protocol PRN Reason: Hypoglycemia Glucagon () 1 mg IM .X1 PRN PRN Reason: Hypoglycemia Sodium Chloride () 1,000 mls @ 75 mls/hr IV .[id number] [facility] Last Admin: 01/22/18 13:47 Dose: 75 mls/hr Insulin Human Lispro (Humalog Kwikpen (Bkc)) 0 unit SQ ACHS KISHOR PRN Reason: Protocol Last Admin: 01/22/18 16:42 Dose: 4 u Magnesium Hydroxide (Milk Of Magnesia) 30 ml PO DAILY PRN PRN PRN Reason: Constipation - Past Medical History Past Medical History (Chronic Problems): Chronic Problems Venous insufficiency (chronic) (peripheral) (Chronic) History of breast cancer (Chronic) Swelling of lower extremity (Chronic) Dependent edema (Chronic) Chronic kidney disease (CKD) (Chronic) Protein malnutrition (Chronic) CKD (chronic kidney disease) stage 4, GFR 15-29 ml/min (Chronic) Breast CA (Chronic) TIA (transient ischemic attack) (Chronic) DM2 (diabetes mellitus, type 2) (Chronic) Bilateral leg edema (Chronic) 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 She is a Ab0. - Social History Smoking Status: Never smoker Alcohol: None - Family History Sibling History Items: Cancer - Brother is from cancer that started in his leg, - - The patient's father at age of 85 with a history of congestive heart failure. The patient's mother at the age of 85 due to septic shock from urinary tract infection. Patient Problems: Active and Suspected Problems Hyperkalemia (Acute) Acute kidney injury superimposed on chronic kidney disease (Acute) Hyperkalemia (Acute) - Physical Exam General: Alert, Oriented x3 HEENT: Atraumatic Oral: Moist Mucosa Neck: Supple, No JVD Lungs: Clear to auscultation, Normal air movement, No rhonchi, No wheeze, No rales Cardiovascular: Regular rate, Regular Rhythm, Normal S1, Normal S2 Abdomen: Bowel Sounds Present, Soft, Non Tender Extremities: - - trace edema of LE Skin: No rashes Musculoskeletal: No Tenderness to Palpation of Joints or Extremities Lymphatic: No Cervical, Supraclavicular, or Inguinal Adenopathy Neurological: Cranial nerves II-XII grossly intact, Neuro grossly intact Psych/Mental Status: Normal Affect Vital Signs Temp Pulse Resp BP Pulse Ox 98.4 F 89 16 127/65 H 97 01/22/18 17:12 01/22/18 17:12 01/22/18 17:12 01/22/18 17:12 01/22/18 17:12 Oxygen Delivery Method Room Air Intake and Output for Last 24 Hours 01/20/18 01/21/18 01/22/18 23:59 23:59 23:59 Intake Total 541 / 541 Output Total 200 / 200 Balance 341 / 341 Laboratory Tests Past 24 Hrs 01/22/18 01/22/18 01/22/18 14:05 14:05 14:05 Sodium Potassium Chloride Carbon Dioxide Anion Gap BUN Creatinine Estim Creat Clear Calc Est GFR (MDRD) Af Amer Est GFR (MDRD) Non-Af BUN/Creatinine Ratio Glucose Calcium Urine Color Urine Clarity Urine pH Ur Specific [place] Urine Protein Urine Glucose (UA) Urine Ketones Urine Occult Blood Urine Nitrite Urine Bilirubin Urine Urobilinogen Ur Leukocyte Esterase Urine RBC Urine WBC Ur Squamous Epith Cells Urine Bacteria Hyaline Casts Urine Mucus Ur Random Sodium 32 Urine Creatinine 60.50 Urine Urea Nitrogen 810 01/22/18 01/22/18 14:05 15:18 Sodium 145 Potassium 5.9 H Chloride 112 H Carbon Dioxide 25.0 Anion Gap 8 BUN 86 H Creatinine 2.17 H Estim Creat Clear Calc 18.81 Est GFR (MDRD) Af Amer 29 L Est GFR (MDRD) Non-Af 24 L BUN/Creatinine Ratio 39.6 H Glucose 291 H Calcium 9.9 Urine Color Yellow Urine Clarity Clear Urine pH 5.0 Ur Specific [place] 1.015 Urine Protein 15 H Urine Glucose (UA) 250 H Urine Ketones Negative Urine Occult Blood Negative Urine Nitrite Negative Urine Bilirubin Negative Urine Urobilinogen Normal Ur Leukocyte Esterase 25 H Urine RBC 0 SEEN Urine WBC 0-5 SEEN Ur Squamous Epith Cells 0 SEEN Urine Bacteria 0 SEEN Hyaline Casts 0-5 SEEN Urine Mucus 0 SEEN Ur Random Sodium Urine Creatinine Urine Urea Nitrogen POC Glucose 01/22/18 16:37 POC Glucose 282 H Assessment/Plan All Active Problems Non-pressure chronic ulcer of other part of left lower leg limited to breakdown of skin (Resolved) Chronic ulcer of leg with fat layer exposed (Resolved) Blister of left leg without infection (Resolved) Non-pressure chronic ulcer of other part of left lower leg with fat layer exposed (Resolved) Ascites (Acute) Abdominal distension (Acute) Hyperkalemia (Acute) Acute kidney injury superimposed on chronic kidney disease (Acute) Hyperkalemia (Acute) Pancytopenia (Acute) Hypercalcemia (Acute) Non-pressure chronic ulcer of other part of right lower leg with fat layer exposed (Resolved) 1- COURTNEY on CKD. Baseline Cr seems around 1.2 mg/dL UA is benign COURTNEY is most probably from hemodynamic instability associated with large paracentesis along with prerenal from dehydration and ACEI Cr peaked at 2.3 mg/dL. Cr is trending down I agree with stopping losartan and lasix Continue IVF 75 cc/hour till morning then stop Keep MAP >65 Avoid large paracentesis and always give albumin with paracentesis Avoid IV contrast No need of SLAG EXPANDER Check renal chem in am 2- Hyperkalemia: due to COURTNEY and ACEI Improving with kayexalate Continue holding losartan 3- HTN: BP is well controlled Continue to hold ARB for COURTNEY Please d/c losartan at discharge since the patient is at risk from paracentesis 4- GUEVARA with ascites. Last paracentesis 2 days ago Stop IV tomorrow am Thank you for the consult Renal team will continue to follow ADAN HERCULES MD
--- NOTE | 2018-01-22 18:51 | CON.PCM_ITS ---
Problem List (1) Acute kidney injury superimposed on chronic kidney disease Status: Acute (2) Hyperkalemia Status: Acute Consultation - Renal PCP/ Referring MD: Requesting physician: [] Primary care physician: Nicola Bay - History of Present Illness History of Present Illness: The patient is a 72 year old F PMH of 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 Last one was 2 days ago of 5.5 L without albumin Patient presented with worsening kidney function and hyperkalemia of 6.1. Patient also was taking losartan 50 mg PO daily and lasix 40 mg PO every other day Patient was given 2 doses of kayexalate 15 g and started on IVF 75 cc.hour NS. Patient said she had 4 BM so far today The repeated K level is 5.9 and Cr is trending down No NSAIDs use. No UTI like symptoms ROS: 12 systems review is negative [] - Allergies Allergies: Allergies clarithromycin [From Biaxin] Allergy (Verified 01/22/18 10:47) Unknown iodine Allergy (Verified 01/22/18 10:47) Unknown - Current Medications Current Medications: Current Medications Amlodipine Besylate (Norvasc) 5 mg PO DAILY [facility] Atenolol (Tenormin (Beta Stuart)) 100 mg PO DAILY [facility] Dextrose (D50w Syringe) 0 gm IV X1 PRN; Protocol PRN Reason: Hypoglycemia Glucagon () 1 mg IM .X1 PRN PRN Reason: Hypoglycemia Sodium Chloride () 1,000 mls @ 75 mls/hr IV .[id number] [facility] Last Admin: 01/22/18 13:47 Dose: 75 mls/hr Insulin Human Lispro (Humalog Kwikpen (Bkc)) 0 unit SQ ACHS KISHOR PRN Reason: Protocol Last Admin: 01/22/18 16:42 Dose: 4 u Magnesium Hydroxide (Milk Of Magnesia) 30 ml PO DAILY PRN PRN PRN Reason: Constipation - Past Medical History Past Medical History (Chronic Problems): Chronic Problems Venous insufficiency (chronic) (peripheral) (Chronic) History of breast cancer (Chronic) Swelling of lower extremity (Chronic) Dependent edema (Chronic) Chronic kidney disease (CKD) (Chronic) Protein malnutrition (Chronic) CKD (chronic kidney disease) stage 4, GFR 15-29 ml/min (Chronic) Breast CA (Chronic) TIA (transient ischemic attack) (Chronic) DM2 (diabetes mellitus, type 2) (Chronic) Bilateral leg edema (Chronic) 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 She is a Ab0. - Social History Smoking Status: Never smoker Alcohol: None - Family History Sibling History Items: Cancer - Brother is from cancer that started in his leg , - - The patient's father at age of 85 with a history of congestive heart failure. The patient's mother at the age of 85 due to septic shock from urinary tract infection. Patient Problems: Active and Suspected Problems Hyperkalemia (Acute) Acute kidney injury superimposed on chronic kidney disease (Acute) Hyperkalemia (Acute) - Physical Exam General: Alert, Oriented x3 HEENT: Atraumatic Oral: Moist Mucosa Neck: Supple, No JVD Lungs: Clear to auscultation, Normal air movement, No rhonchi, No wheeze, No rales Cardiovascular: Regular rate, Regular Rhythm, Normal S1, Normal S2 Abdomen: Bowel Sounds Present, Soft, Non Tender Extremities: - - trace edema of LE Skin: No rashes Musculoskeletal: No Tenderness to Palpation of Joints or Extremities Lymphatic: No Cervical, Supraclavicular, or Inguinal Adenopathy Neurological: Cranial nerves II-XII grossly intact, Neuro grossly intact Psych/Mental Status: Normal Affect Vital Signs Temp Pulse Resp BP Pulse Ox 98.4 F 89 16 127/65 H 97 01/22/18 17:12 01/22/18 17:12 01/22/18 17:12 01/22/18 17:12 01/22/18 17:12 Oxygen Delivery Method Room Air Intake and Output for Last 24 Hours 01/20/18 01/21/18 01/22/18 23:59 23:59 23:59 Intake Total 541 / 541 Output Total 200 / 200 Balance 341 / 341 Laboratory Tests Past 24 Hrs 01/22/18 01/22/18 01/22/18 14:05 14:05 14:05 Sodium Potassium Chloride Carbon Dioxide Anion Gap BUN Creatinine Estim Creat Clear Calc Est GFR (MDRD) Af Amer Est GFR (MDRD) Non-Af BUN/Creatinine Ratio Glucose Calcium Urine Color Urine Clarity Urine pH Ur Specific [place] Urine Protein Urine Glucose (UA) Urine Ketones Urine Occult Blood Urine Nitrite Urine Bilirubin Urine Urobilinogen Ur Leukocyte Esterase Urine RBC Urine WBC Ur Squamous Epith Cells Urine Bacteria Hyaline Casts Urine Mucus Ur Random Sodium 32 Urine Creatinine 60.50 Urine Urea Nitrogen 810 01/22/18 01/22/18 14:05 15:18 Sodium 145 Potassium 5.9 H Chloride 112 H Carbon Dioxide 25.0 Anion Gap 8 BUN 86 H Creatinine 2.17 H Estim Creat Clear Calc 18.81 Est GFR (MDRD) Af Amer 29 L Est GFR (MDRD) Non-Af 24 L BUN/Creatinine Ratio 39.6 H Glucose 291 H Calcium 9.9 Urine Color Yellow Urine Clarity Clear Urine pH 5.0 Ur Specific [place] 1.015 Urine Protein 15 H Urine Glucose (UA) 250 H Urine Ketones Negative Urine Occult Blood Negative Urine Nitrite Negative Urine Bilirubin Negative Urine Urobilinogen Normal Ur Leukocyte Esterase 25 H Urine RBC 0 SEEN Urine WBC 0-5 SEEN Ur Squamous Epith Cells 0 SEEN Urine Bacteria 0 SEEN Hyaline Casts 0-5 SEEN Urine Mucus 0 SEEN Ur Random Sodium Urine Creatinine Urine Urea Nitrogen POC Glucose 01/22/18 16:37 POC Glucose 282 H Assessment/Plan All Active Problems Non-pressure chronic ulcer of other part of left lower leg limited to breakdown of skin (Resolved) Chronic ulcer of leg with fat layer exposed (Resolved) Blister of left leg without infection (Resolved) Non-pressure chronic ulcer of other part of left lower leg with fat layer exposed (Resolved) Ascites (Acute) Abdominal distension (Acute) Hyperkalemia (Acute) Acute kidney injury superimposed on chronic kidney disease (Acute) Hyperkalemia (Acute) Pancytopenia (Acute) Hypercalcemia (Acute) Non-pressure chronic ulcer of other part of right lower leg with fat layer exposed (Resolved) 1- COURTNEY on CKD. Baseline Cr seems around 1.2 mg/dL UA is benign COURTNEY is most probably from hemodynamic instability associated with large paracentesis along with prerenal from dehydration and ACEI Cr peaked at 2.3 mg/dL. Cr is trending down I agree with stopping losartan and lasix Continue IVF 75 cc/hour till morning then stop Keep MAP >65 Avoid large paracentesis and always give albumin with paracentesis Avoid IV contrast No need of [employer] Check renal chem in am 2- Hyperkalemia: due to COURTNEY and ACEI Improving with kayexalate Continue holding losartan 3- HTN: BP is well controlled Continue to hold ARB for COURTNEY Please d/c losartan at discharge since the patient is at risk from paracentesis 4- GUEVARA with ascites. Last paracentesis 2 days ago Stop IV tomorrow am Thank you for the consult Renal team will continue to follow ADAN HERCULES MD
[2018-01-22 22:20] LABS: Bedside Glucose 247 mg/dL (70-110)
[2018-01-23 03:04] VITALS: PULSE 63
[2018-01-23] MEDS: 0.9% Normal Saline 1,000 ML 75 ML IV (03:26)
[2018-01-23 03:27] VITALS: BP 105/52; PULSE 62; RESP 11; TEMP 36.9; O2SAT 99
[2018-01-23 07:00] LABS: Bedside Glucose 162 mg/dL (70-110)
[2018-01-23 07:01] LABS: Absolute Neutrophil Count 1.4 X10^3/uL (2.0-7.7); Basophil# 0.01 X10^3/uL; Basophil% 0.5 % (0-1); Eosinophil# 0.14 X10^3/uL; Eosinophils% 6.9 % (0-5); Hematocrit 26.4 % (37-47); Hemoglobin 8.6 g/dl (12.0-15.0); Lymphocyte % 19.7 % (19-41); Mean Corp Hgb Conc 32.6 g/gl (32-36); Mean Corpuscular Hgb 31.9 pg (27.0-32.0); Mean Corpuscular Volume 97.8 fL (81-99); Mean Platelet Vol. 10.3 fl (6.2-12.0); Monocyte# 0.13 X10^3/uL; Monocyte% 6.4 % (0-10); Neutrophil # 1.35 X10^3/uL (2.7-7.7); Neutrophil % 66.5 % (47-70); Platelet Count 57 K/mm3 (150-450); RBC Distribution Width CV 14.9 % (11.6-14.6); RBC Distribution Width SD 50.8 fl (35.1-43.9)
[2018-01-23 07:15] LABS: Anion Gap 6 (5-15); BUN 69 mg/dL (7-18); BUN/Creat Ratio 38.5 RATIO (10-20); Calcium,Total 9.6 mg/dL (8.5-10.1); Chloride 115 mmol/L (98-107); Creatinine, Serum 1.79 mg/dL (0.55-1.02); EST Glomerular Filtration Rate 30 mL/min (>60); Est Glom Filt Rate - Afr Amer 36 mL/min (>60); Glucose 154 mg/dL (74-106); Potassium 4.7 mmol/L (3.5-5.1); Sodium Level 146 mmol/L (136-145)
[2018-01-23 07:18] LABS: Differential Indicated SCAN CRITERIA MET; POSITIVE COUNT NO; POSITIVE DIFFERENTIAL YES; POSITIVE MORPHOLOGY NO
[2018-01-23 07:42] VITALS: PULSE 76
[2018-01-23 08:06] LABS: Differential Comment SCANNED
[2018-01-23] MEDS: Insulin Lispro 100 UNIT/ML INSULN.PEN SQ (08:50)
[2018-01-23] MEDS: Atenolol 100 MG Tablet PO (08:51)
[2018-01-23] MEDS: amLODIPine 5 MG Tablet PO (08:51)
[2018-01-23 08:55] VITALS: BP 105/59; PULSE 80; RESP 16; TEMP 37.1; O2SAT 97
--- NOTE | 2018-01-23 10:43 | PCM.DC ---
- Discharge Diagnoses Current Active Problems: Current Active and Chronic Problems Hyperkalemia (Acute) Acute kidney injury superimposed on chronic kidney disease (Acute) Hyperkalemia (Acute) Reason(s) for Visit for Discharge Instructions: hyperkalemia You will use the following diet at home:: Renal (restricted protein/sodium) - low potassium diet Your food should be the consistency of: Regular Your liquids should be the consistency of: Regular/Thin Discharge Activity: Return to Normal Activity Weight Bearing Status: Weight bearing as tolerated Call your doctor if you observe: Shortness of breath, Swelling in the ankles Instructions: Potassium, Discharge Instructions: Eating a Low Potassium Diet, Discharge Instructions for Hyperkalemia, ED Potassium Excess Additional Instructions: FOLLOW UP WITH [employer] IN [place] IN ONE WEEK TO EDUCATE ABOUT LOW POTASSIUM DIET. DO NOT TAKE PO FUROSEMIDE FOR THE NEXT 2 DAYS, RESUME TAKING ON 01/26/18. STOP TAKING LOSARTAN AND METFORMIN O/A OF ACUTE KIDNEY INJURY AND HYPERKALEMIA Allergies/Adverse Reactions: Allergies clarithromycin [From Biaxin] Allergy (Verified 01/22/18 10:47) Unknown iodine Allergy (Verified 01/22/18 10:47) Unknown Medications to take at Discharge Atenolol [Tenormin (beta geraldine)] 100 mg PO DAILY 08/08/13 Insulin Lispro [Humalog KwikPen] See Protocol SQ TID 04/15/17 Amlodipine Besylate [Norvasc] 5 mg PO DAILY 07/20/17 Furosemide [Lasix] 40 mg PO QODAY 01/22/18 Orders to be completed after discharge: Basic Metabolic Profile (BMP) Time Frame: 01/25/18, Location: Laboratory Primary Care Physician: Nicola Bay MD [Primary Care Provider] - Please follow up with your Primary Care Physician in: WITHIN ONE WEEK, BEFORE YOU HAVE YOUR NEXT PARACENTESIS Test Results: Test results from this visit will be discussed in further detail at your follow-up appointment, if applicable. Proposed Discharge Date: 01/23/18
--- NOTE | 2018-01-23 10:52 | DCINST_ITS ---
- Discharge Diagnoses Current Active Problems: Current Active and Chronic Problems Hyperkalemia (Acute) Acute kidney injury superimposed on chronic kidney disease (Acute) Hyperkalemia (Acute) Reason(s) for Visit for Discharge Instructions: hyperkalemia You will use the following diet at home:: Renal (restricted protein/sodium) - low potassium diet Your food should be the consistency of: Regular Your liquids should be the consistency of: Regular/Thin Discharge Activity: Return to Normal Activity Weight Bearing Status: Weight bearing as tolerated Call your doctor if you observe: Shortness of breath, Swelling in the ankles Instructions: Potassium, Discharge Instructions: Eating a Low Potassium Diet, Discharge Instructions for Hyperkalemia, ED Potassium Excess Additional Instructions: FOLLOW UP WITH [employer] IN [place] IN ONE WEEK TO EDUCATE ABOUT LOW POTASSIUM DIET. DO NOT TAKE PO FUROSEMIDE FOR THE NEXT 2 DAYS , RESUME TAKING ON 01/26/18. STOP TAKING LOSARTAN AND METFORMIN O/A OF ACUTE KIDNEY INJURY AND HYPERKALEMIA Allergies/Adverse Reactions: Allergies clarithromycin [From Biaxin] Allergy (Verified 01/22/18 10:47) Unknown iodine Allergy (Verified 01/22/18 10:47) Unknown Medications to take at Discharge Atenolol [Tenormin (beta geraldine)] 100 mg PO DAILY 08/08/13 Insulin Lispro [Humalog KwikPen] See Protocol SQ TID 04/15/17 Amlodipine Besylate [Norvasc] 5 mg PO DAILY 07/20/17 Furosemide [Lasix] 40 mg PO QODAY 01/22/18 Orders to be completed after discharge: Basic Metabolic Profile (BMP) Time Frame: 01/25/18, Location: Laboratory Primary Care Physician: Nicola Bay MD [Primary Care Provider] - Please follow up with your Primary Care Physician in: WITHIN ONE WEEK, BEFORE YOU HAVE YOUR NEXT PARACENTESIS Test Results: Test results from this visit will be discussed in further detail at your follow- up appointment, if applicable. Proposed Discharge Date: 01/23/18
--- NOTE | 2018-01-23 11:05 | DS.PCM_ITS ---
Discharge Date and Diagnosis Date of Admission: 01/22/18 Date of Discharge: 01/23/18 - Primary Discharge Diagnosis Active and Suspected Problems Hyperkalemia (Acute) Acute kidney injury superimposed on chronic kidney disease (Acute) Hyperkalemia (Acute) - Secondary Discharge Diagnosis Chronic Problems Venous insufficiency (chronic) (peripheral) (Chronic) History of breast cancer (Chronic) Swelling of lower extremity (Chronic) Dependent edema (Chronic) Chronic kidney disease (CKD) (Chronic) Protein malnutrition (Chronic) CKD (chronic kidney disease) stage 4, GFR 15-29 ml/min (Chronic) Breast CA (Chronic) TIA (transient ischemic attack) (Chronic) DM2 (diabetes mellitus, type 2) (Chronic) Bilateral leg edema (Chronic) 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) Benign essential HTN (Chronic) Hospital Course and Treatment Imaging Results: Laboratory Tests 01/22/18 01/22/18 01/22/18 11:07 14:05 14:05 WBC 3.4 L RBC 3.18 L Hgb 10.0 L Hct 30.2 L MCV 95.0 MCH 31.4 MCHC 33.1 RDW 15.0 H RDW Differential 52.0 H Plt Count 69 L MPV 9.4 Immature Gran % (Auto) 0.000 Neut % (Auto) 73.7 H Lymph % (Auto) 13.0 L Boundary % (Auto) 5.3 Eos % (Auto) 7.4 H Baso % (Auto) 0.6 Absolute Neuts (auto) 2.5 Absolute Lymphs (auto) 0.44 L Total Counted Not Reportable Differential Comment SCANNED Sodium Potassium Chloride Carbon Dioxide Anion Gap BUN Creatinine Estim Creat Clear Calc Est GFR (MDRD) Af Amer Est GFR (MDRD) Non-Af BUN/Creatinine Ratio Glucose Calcium Urine Color Urine Clarity Urine pH Ur Specific [place] Urine Protein Urine Glucose (UA) Urine Ketones Urine Occult Blood Urine Nitrite Urine Bilirubin Urine Urobilinogen Ur Leukocyte Esterase Urine RBC Urine WBC Ur Squamous Epith Cells Urine Bacteria Hyaline Casts Urine Mucus Ur Random Sodium 32 Urine Creatinine 60.50 Urine Urea Nitrogen POC Glucose 01/22/18 01/22/18 01/22/18 14:05 14:05 15:18 WBC RBC Hgb Hct MCV MCH MCHC RDW RDW Differential Plt Count MPV Immature Gran % (Auto) Neut % (Auto) Lymph % (Auto) Boundary % (Auto) Eos % (Auto) Baso % (Auto) Absolute Neuts (auto) Absolute Lymphs (auto) Total Counted Differential Comment Sodium 145 Potassium 5.9 H Chloride 112 H Carbon Dioxide 25.0 Anion Gap 8 BUN 86 H Creatinine 2.17 H Estim Creat Clear Calc 18.81 Est GFR (MDRD) Af Amer 29 L Est GFR (MDRD) Non-Af 24 L BUN/Creatinine Ratio 39.6 H Glucose 291 H Calcium 9.9 Urine Color Yellow Urine Clarity Clear Urine pH 5.0 Ur Specific [place] 1.015 Urine Protein 15 H Urine Glucose (UA) 250 H Urine Ketones Negative Urine Occult Blood Negative Urine Nitrite Negative Urine Bilirubin Negative Urine Urobilinogen Normal Ur Leukocyte Esterase 25 H Urine RBC 0 SEEN Urine WBC 0-5 SEEN Ur Squamous Epith Cells 0 SEEN Urine Bacteria 0 SEEN Hyaline Casts 0-5 SEEN Urine Mucus 0 SEEN Ur Random Sodium Urine Creatinine Urine Urea Nitrogen 810 POC Glucose 01/22/18 01/22/18 01/23/18 16:37 21:59 05:55 WBC 2.0 L RBC 2.70 L Hgb 8.6 L Hct 26.4 L MCV 97.8 MCH 31.9 MCHC 32.6 RDW 14.9 H RDW Differential 50.8 H Plt Count 57 L MPV 10.3 Immature Gran % (Auto) 0.000 Neut % (Auto) 66.5 Lymph % (Auto) 19.7 Boundary % (Auto) 6.4 Eos % (Auto) 6.9 H Baso % (Auto) 0.5 Absolute Neuts (auto) 1.4 L Absolute Lymphs (auto) 0.40 L Total Counted Not Reportable Differential Comment SCANNED Sodium Potassium Chloride Carbon Dioxide Anion Gap BUN Creatinine Estim Creat Clear Calc Est GFR (MDRD) Af Amer Est GFR (MDRD) Non-Af BUN/Creatinine Ratio Glucose Calcium Urine Color Urine Clarity Urine pH Ur Specific [place] Urine Protein Urine Glucose (UA) Urine Ketones Urine Occult Blood Urine Nitrite Urine Bilirubin Urine Urobilinogen Ur Leukocyte Esterase Urine RBC Urine WBC Ur Squamous Epith Cells Urine Bacteria Hyaline Casts Urine Mucus Ur Random Sodium Urine Creatinine Urine Urea Nitrogen POC Glucose 282 H 247 H 01/23/18 01/23/18 05:55 06:53 WBC RBC Hgb Hct MCV MCH MCHC RDW RDW Differential Plt Count MPV Immature Gran % (Auto) Neut % (Auto) Lymph % (Auto) Boundary % (Auto) Eos % (Auto) Baso % (Auto) Absolute Neuts (auto) Absolute Lymphs (auto) Total Counted Differential Comment Sodium 146 H Potassium 4.7 Chloride 115 H Carbon Dioxide 25.0 Anion Gap 6 BUN 69 H Creatinine 1.79 H Estim Creat Clear Calc 22.80 Est GFR (MDRD) Af Amer 36 L Est GFR (MDRD) Non-Af 30 L BUN/Creatinine Ratio 38.5 H Glucose 154 H Calcium 9.6 Urine Color Urine Clarity Urine pH Ur Specific [place] Urine Protein Urine Glucose (UA) Urine Ketones Urine Occult Blood Urine Nitrite Urine Bilirubin Urine Urobilinogen Ur Leukocyte Esterase Urine RBC Urine WBC Ur Squamous Epith Cells Urine Bacteria Hyaline Casts Urine Mucus Ur Random Sodium Urine Creatinine Urine Urea Nitrogen POC Glucose 162 H Procedures: None Summary of Care Provided: The patient is a 72 year old F [] The patient is a 72 year old F with a history of cirrhosis due to nonalcoholic steatohepatitis, hypertension, diabetes. She was admitted on 01/22/18 with a potassium of 6.2. She saw her family doctor in his office one day prior to admission and had screening lab work which showed potassium of 6.1. She was called at home and told to come to the hospital for another lab test. She came into the hospital on day of presentation for the lab test and repeat labs showed potassium of 6.2. She was therefore brought to the ED. She denies any history of kidney disease but states that she was told her kidneys are sluggish. She has therapeutic paracentesis done every week and the last one done was 2 days prior to admission by interventional radiology and she states 5.5 L of ascitic fluid was taken out. She did not receive any albumin as she has been told that she needs to have about 8 L taken out before she can be given albumin. She denies any nausea vomiting or recent diarrhea and has been eating and drinking well. EKG in the ED showed normal sinus rhythm with no evidence of hyperkalemic changes. Vitals done in the ED showed a temperature of 98.5 Fahrenheit, blood pressure 151/63, respiratory rate of 16 and she was saturating at 98% on room air. Pulse rate was 90. She was admitted to be managed for hyperkalemia and COURTNEY on CKD. BMP showed potassium was 6.2, creatinine of 2.33, sodium of 142 and bicarb of 26. CBC was significant for hemoglobin of 10 and platelets of 69. She has been admitted to be managed for hyperkalemia and COURTNEY on CKD. AKA was thought to be likely due to hypotension that may have occurred after she had 5.5 L of fluid taken out during paracentesis and not receiving any albumin. She received potassium depleting cocktail in the ED. Baseline creatinine was around 1.4. She received Kayexalate and 1L of IVF NS @ 75//hr. Nephrology was consulted. potassiums slowly went down to 4.7 x 8 518. Patient was stable and had no complaints. Discussed with nephrology. Patient's medications were adjusted as follows: -Losartan and metformin were stopped. -Patient was to hold her oral furosemide 40 mg daily dose for 2 days. She was to check a BMP on 01/25/2018 was given a lab request for that. Lab was be sent to her primary care doctor. She is then to resume taking her Lasix on 01/26/2018 1 primary care doctor reviewed her labs and give her the go ahead to do so. She was also counseled about taking a low potassium diet. She was counseled about food such as bananas, green leafy vegetables and orange juice to contain high potassium and was given a printout of materials to educate him about hyperkalemia. She was also to be referred to nutrition as per preferred to follow-up with a c unix developer that she has seen in [place] before. She is to call the c un[employer] developer office for an appointment. Patient is to follow-up with her supervisor plastic sheets Dr. Herzog in [facility] she has scheduled EGD with him tomorrow 01/24/18. Recommendation is for patient to receive albumin after paracentesis, and per nephrology, would be advisable that patient does not have more than 4 L of fluid taken out her paracentesis session. Seen and examined prior to discharge. She had no complaints. She denied any fever or chills, any cough or chest pain, shortness of breath, abdominal pain, any diarrhea vomiting. Review of systems was otherwise negative. Vital Signs Height 5 ft 2 in Weight: 171 lb 11.841 oz Weight in Pounds 171.7 lbs Pulse Ox 97 Temperature 98.7 F Pulse Rate 80 Respiratory Rate 16 Blood Pressure 105/59 Blood Pressure Position Supine General: Alert, Oriented x3, Cooperative, No apparent distress HEENT: PERRLA, EOMI, Normocephalic, - - left conjuctival erythema, no pain with movement of eyeball, no discharge visualised Oral: Moist Mucosa Neck: Supple, No JVD, Negative Carotid Bruits, No Nodes Lungs: Clear to auscultation, Normal air movement Cardiovascular: Regular rate, Regular Rhythm, Normal S1, Normal S2, No murmurs Abdomen: Bowel Sounds Present, Soft, Non Tender, - - distended abdomen, with postive fluid thrill Extremities: No clubbing, No cyanosis, Capillary Refill Less than 3 Seconds, - - mild 1+ bipedal pitting pedal edema Skin: No rashes, No breakdown Musculoskeletal: No Tenderness to Palpation of Joints or Extremities Lymphatic: No Cervical, Supraclavicular, or Inguinal Adenopathy Neurological: Cranial nerves II-XII grossly intact, Motor Exam 5/5 strength throughout Psych/Mental Status: Normal Affect, Appropriate, Alert and oriented to time, place, person, mood and affect Comment: right mastectomy scar Plan as stated above. She is follow-up with her primary care doctor in a couple of days, indefinitely before her next paracentesis session. Discharge Diet: - - RENAL DIET, WITH LOW POTASSIUM FOODS Discharge Activity: Return to Normal Activity Weight Bearing Status: Weight bearing as tolerated Call your doctor if you observe: Shortness of breath, Swelling in the ankles Home Medications: Medications to take at Discharge Atenolol [Tenormin (beta geraldine)] 100 mg PO DAILY 08/08/13 Insulin Lispro [Humalog KwikPen] See Protocol SQ TID 04/15/17 Amlodipine Besylate [Norvasc] 5 mg PO DAILY 07/20/17 Furosemide [Lasix] 40 mg PO QODAY 01/22/18 Primary Care Physician: Nicola Bay MD [Primary Care Provider] - Please follow up with your Primary Care Physician in: WITHIN ONE WEEK, BEFORE YOU HAVE YOUR NEXT PARACENTESIS Patient Instructions: Potassium, Discharge Instructions for Hyperkalemia, Discharge Instructions: Eating a Low Potassium Diet, ED Potassium Excess Additional Instructions: TO HAVE REPEAT BMP ON 01/25/18 TO FOLLOW UP POTASSIUM LEVELS. TO STOP LOSARTAN AND METFORMIN TO HOLD FUROSEMIDE FOR 2 DAYS, AND RESUME ON 01/26/18 IF BMP RESULTS ARE WNL Disposition: Home Minutes spent on discharge:: 40 Patient Condition:: Stable Medical Necessity - Tobacco Use Smoking Status: Never smoker Tobacco Use: Non-smoker Meaningful Use Info Meaningful Use Diagnoses (Choose all that apply): None applicable Code Visit Inpatient E&M: 12922 Disch Hosp
--- NOTE | 2018-01-24 16:14 | CASEMGMT ---
EVAN ANDERSON Discharge Follow-up Phone Call: HEATHER: Kathya Strata: 3 Call Date: 10/24/17 Discharge Date: 10/23/17 Time of Call: 1615 Duration: 1 min Admitting Diagnosis: Hyperkalemia EVAN ANDERSON attempted to complete follow-up phone call after recent hospitalization. No answer after several rings and unable to leave message at this time.
== END 2018-01-23 14:22 | disposition home or self-care (01) | DRG 683 ==
LOC: ED 11:59 → PCU 12:18
PROVIDERS: Admitting Provider Student in an Organized Health Care Education/Training Program; Emergency Provider Emergency Medicine; Family Provider Family Medicine; PCP Family Medicine; Visit Provider Student in an Organized Health Care Education/Training Program
DX: N17.9 Acute kidney failure, unspecified (principal); K76.6 Portal hypertension; R18.8 Other ascites; E46 Unspecified protein-calorie malnutrition; D61.818 Other pancytopenia; E87.5 Hyperkalemia; N18.4 Chronic kidney disease, stage 4 (severe); K74.60 Unspecified cirrhosis of liver; K75.81 Nonalcoholic steatohepatitis (NASH); Z85.3 Personal history of malignant neoplasm of breast; Z90.11 Acquired absence of right breast and nipple; E11.22 Type 2 diabetes mellitus with diabetic chronic kidney disease; Z79.4 Long term (current) use of insulin; I12.9 Hypertensive chronic kidney disease with stage 1 through stage 4 chronic kidney disease, or unspecified chronic kidney disease; I87.2 Venous insufficiency (chronic) (peripheral); Z68.30 Body mass index [BMI] 30.0-30.9, adult
CPT/HCPCS: 36415; 49083; 76770; 80048; 80053; 81001; 82140; 82570; 82962; 84300; 84540; 85025; 85610; 85730; 93005; 99285; J7030; J7040; J0610

== ENCOUNTER → 2018-01-26 16:33 | Outpatient (CLI) | payer MEDICARE, SELFPAY ==
[2018-01-26 17:48] LABS: Anion Gap 9 (5-15); BUN 73 mg/dL (7-18); BUN/Creat Ratio 42.2 RATIO (10-20); Calcium,Total 9.7 mg/dL (8.5-10.1); Chloride 109 mmol/L (98-107); Creatinine, Serum 1.73 mg/dL (0.55-1.02); EST Glomerular Filtration Rate 31 mL/min (>60); Est Glom Filt Rate - Afr Amer 37 mL/min (>60); Glucose 183 mg/dL (74-106); Potassium 4.7 mmol/L (3.5-5.1); Sodium Level 141 mmol/L (136-145)
== END ==
PROVIDERS: Family Provider Family Medicine; PCP Family Medicine; Visit Provider Family Medicine
DX: K75.81 Nonalcoholic steatohepatitis (NASH) (principal)
CPT/HCPCS: 36415; 80048

== ENCOUNTER → 2018-01-27 10:08 | Outpatient (CLI) | payer MEDICARE, SELFPAY ==
--- NOTE | 2018-01-27 10:11 | US_ITS ---
PROCEDURE: ULTRASOUND GUIDED PARACENTESIS CLINICAL HISTORY: Female, 72 years old. Ascites. Prior paracenteses. CONSENT: Yes Time-Out Called: Yes. Consent form signed: Yes. PT-PTT Levels Checked: Yes. SEDATION: Local anesthesia with 2% lidocaine. TECHNIQUE: The risks, benefits and alternatives to the procedure were explained to the patient. The specific risks of bleeding, infection and damage to bowel were detailed and accepted. Witnessed written and informed consent was obtained. The abdomen was ultrasonographically surveyed. An appropriate pocket of fluid was identified at the right lower quadrant. The skin were cleaned and prepped in the usual sterile fashion. Using ultrasound guidance, the peritoneal cavity was accessed with a 5-Egyptian paracentesis needle/catheter system. The trocar was removed. A total of 3300 ml of harsh-colored fluid were removed from the peritoneal cavity. The catheter was removed and a sterile dressing was applied. The procedure was well tolerated by the patient without immediate complication identified. US/Paracentesis with US IMPRESSION: Successful ultrasound-guided paracentesis. Electronically Signed: Eladio Bazan, at 12:25 EDT Tel , Service support ,
[2018-01-27 10:55] VITALS: BP 126/61; PULSE 58; RESP 18; O2SAT 99
[2018-01-27 11:10] VITALS: BP 124/46; PULSE 52; RESP 18; O2SAT 100
[2018-01-27 11:25] VITALS: BP 112/46; PULSE 57; RESP 18; O2SAT 100
[2018-01-27 11:40] VITALS: BP 108/48; PULSE 53; RESP 18; O2SAT 100
== END ==
PROVIDERS: Family Provider Family Medicine; PCP Family Medicine; Visit Provider Internal Medicine Gastroenterology
DX: R18.8 Other ascites (principal); K74.60 Unspecified cirrhosis of liver
CPT/HCPCS: 49083; P9047

== ENCOUNTER → 2018-01-27 | Outpatient (CLI) | payer MEDICARE, SELFPAY ==
[2018-01-27 12:16] VITALS: BP 99/49; PULSE 53; RESP 16; TEMP 36.3; O2SAT 100; BMI 30.3
== END | disposition home or self-care (01) ==
PROVIDERS: Family Provider Family Medicine; PCP Family Medicine; Visit Provider Internal Medicine Gastroenterology
DX: R18.8 Other ascites (principal); K74.60 Unspecified cirrhosis of liver
CPT/HCPCS: 96365; 96366; 49083; P9047; A4216

== ENCOUNTER → 2018-02-03 12:20 | Outpatient (CLI) | payer MEDICARE, SELFPAY ==
[2018-02-03 12:36] VITALS: BP 108/52; PULSE 53; RESP 16; O2SAT 99
[2018-02-03 12:51] VITALS: BP 109/56; PULSE 56; RESP 16; O2SAT 99
[2018-02-03 13:43] VITALS: BP 102/48; PULSE 53; RESP 16; TEMP 36.1; O2SAT 100; BMI 30.2
[2018-02-03 13:46] VITALS: BP 104/45; PULSE 56; RESP 16; O2SAT 99
== END ==
PROVIDERS: Family Provider Family Medicine; PCP Family Medicine; Visit Provider Internal Medicine Gastroenterology
DX: K75.81 Nonalcoholic steatohepatitis (NASH) (principal)
CPT/HCPCS: 96365; 96366; 49083; P9047; A4216

== ENCOUNTER → 2018-02-10 10:13 | Outpatient (CLI) | payer MEDICARE, SELFPAY ==
[2018-02-10 10:30] VITALS: BP 116/58; PULSE 68; RESP 16; O2SAT 97
[2018-02-10 10:45] VITALS: BP 116/58; PULSE 57; RESP 16; O2SAT 97
[2018-02-10 13:49] VITALS: BP 116/58; PULSE 55; RESP 16; O2SAT 97
== END ==
PROVIDERS: Family Provider Family Medicine; PCP Family Medicine; Visit Provider Internal Medicine Gastroenterology
DX: R18.8 Other ascites (principal); K74.60 Unspecified cirrhosis of liver
CPT/HCPCS: 49083

== ENCOUNTER → 2018-02-17 10:12 | Outpatient (CLI) | payer MEDICARE, SELFPAY ==
[2018-02-17 10:30] VITALS: BP 132/48; PULSE 63; RESP 16; O2SAT 98; BMI 32.1
[2018-02-17 11:00] VITALS: BP 116/51; PULSE 55; RESP 16; O2SAT 98
[2018-02-17 11:20] VITALS: BP 116/52; PULSE 60; RESP 16; O2SAT 99
[2018-02-17 12:09] VITALS: BP 97/53; PULSE 56; RESP 16; TEMP 36.7; BMI 32.1
== END ==
PROVIDERS: Family Provider Family Medicine; PCP Family Medicine; Visit Provider Internal Medicine Gastroenterology
DX: R18.8 Other ascites (principal); K74.60 Unspecified cirrhosis of liver
CPT/HCPCS: 96365; 96366 ×2; 49083; P9047

== ENCOUNTER → 2018-02-22 12:37 | Outpatient (CLI) | payer MEDICARE, SELFPAY ==
[2018-02-22 13:29] LABS: International Normalized Ratio 1.1; Prothrombin Time (Protime)PT. 13.7 SECONDS (11.7-14.9)
[2018-02-22 13:30] LABS: Partial Thromboplast Time 29.1 Seconds (24.1-36.2)
== END ==
PROVIDERS: Family Provider Family Medicine; PCP Family Medicine; Visit Provider Internal Medicine Gastroenterology
DX: K74.60 Unspecified cirrhosis of liver (principal); R18.8 Other ascites
CPT/HCPCS: 36415; 85610; 85730

== ENCOUNTER → 2018-02-24 10:18 | Outpatient (CLI) | payer MEDICARE, SELFPAY ==
[2018-02-24 10:37] VITALS: BP 119/59; PULSE 61; RESP 16; O2SAT 96; BMI 31.1
[2018-02-24 11:28] VITALS: BP 110/56; PULSE 57; RESP 16; TEMP 36.2; O2SAT 100; BMI 29.4
[2018-02-24 11:40] VITALS: BP 116/35; PULSE 54; RESP 16; O2SAT 100
== END ==
PROVIDERS: Family Provider Family Medicine; PCP Family Medicine; Visit Provider Internal Medicine Gastroenterology
DX: R18.8 Other ascites (principal); K74.60 Unspecified cirrhosis of liver
CPT/HCPCS: 96365; 96366; 49083; J7050; P9047; A4216

== ENCOUNTER 2018-02-28 08:36 | Outpatient (RCR) | payer MEDICARE, SELFPAY | END 2018-02-28 23:59 | LOC: NS 08:36 | PROVIDERS: Family Provider Family Medicine; PCP Family Medicine; Visit Provider Family Medicine | DX: E87.5 Hyperkalemia (principal); K75.81 Nonalcoholic steatohepatitis (NASH); E66.9 Obesity, unspecified; E11.22 Type 2 diabetes mellitus with diabetic chronic kidney disease; N18.4 Chronic kidney disease, stage 4 (severe); Z71.3 Dietary counseling and surveillance | CPT/HCPCS: 97802 ==

== ENCOUNTER → 2018-03-01 12:46 | Outpatient (CLI) | payer MEDICARE, SELFPAY ==
[2018-03-01 15:55] LABS: ALB/GLOB Ratio 0.9 RATIO (0.9-2.4); AST(SGOT) 40 U/L (15-37); Alanine Aminotransfer ALT/SGPT 69 U/L (13-56); Alkaline Phosphatase 219 U/L (45-117); Anion Gap 7 (5-15); BUN 92 mg/dL (7-18); BUN/Creat Ratio 49.5 RATIO (10-20); Calcium,Total 10.3 mg/dL (8.5-10.1); Chloride 106 mmol/L (98-107); Creatinine, Serum 1.86 mg/dL (0.55-1.02); EST Glomerular Filtration Rate 28 mL/min (>60); Est Glom Filt Rate - Afr Amer 34 mL/min (>60); Ferritin 303 ng/mL (8-252); Globulin 3.4 g/dL (2.2-4.2); Glucose 282 mg/dL (74-106); Iron 92 ug/dL (50-170); Iron Binding Capacity,Total 264 ug/dL (250-450); Potassium 4.7 mmol/L (3.5-5.1); Protein, Total 6.4 g/dL (6.4-8.2); Sodium Level 139 mmol/L (136-145)
== END ==
PROVIDERS: Family Provider Family Medicine; PCP Family Medicine; Visit Provider Internal Medicine Hematology & Oncology
DX: D61.818 Other pancytopenia (principal)
CPT/HCPCS: 80053; 82728; 83540; 83550

== ENCOUNTER → 2018-03-03 12:20 | Outpatient (CLI) | payer MEDICARE, SELFPAY ==
--- NOTE | 2018-03-03 12:22 | US_ITS ---
PROCEDURE: Ultrasound guided paracentesis. DATE OF EXAMINATION: March 03, 2018. INDICATION: Female, 72 years old. Ascites. PHYSICIAN: Rigo Britt M.D. TECHNIQUE: The risks, benefits, and alternatives to the procedure were explained to the patient. The specific risks of bleeding, infection, and damage to bowel were detailed and accepted. Witnessed informed consent was obtained. The abdomen was ultrasonographically surveyed. An appropriate pocket of fluid was identified at the left lower quadrant. The skin were cleaned and prepped in the usual sterile fashion. Using ultrasound guidance, the peritoneal cavity was accessed with a 5-Mongolian paracentesis needle/catheter system. The trocar was removed. A total of 4350 ml of harsh-colored fluid were removed from the peritoneal cavity. The catheter was removed and a sterile dressing was applied. The procedure was well tolerated. US/Paracentesis with US IMPRESSION: Ultrasound guided paracentesis. Electronically Signed: Rigo Britt MD at 15:51 EDT Tel [phone], Service support ,
[2018-03-03 12:35] VITALS: BP 136/85; PULSE 65; RESP 16; O2SAT 100
[2018-03-03 13:05] VITALS: BP 108/49; PULSE 61; RESP 16; O2SAT 100
== END ==
PROVIDERS: Family Provider Family Medicine; PCP Family Medicine; Visit Provider Internal Medicine Gastroenterology
DX: R18.8 Other ascites (principal); K74.60 Unspecified cirrhosis of liver
CPT/HCPCS: 49083

== ENCOUNTER → 2018-03-10 12:22 | Outpatient (CLI) | payer MEDICARE, SELFPAY ==
--- NOTE | 2018-03-10 12:23 | US_ITS ---
PROCEDURE: Ultrasound guided paracentesis. DATE OF EXAMINATION: March 10, 2018. INDICATION: Female, 72 years old. Ascites. PHYSICIAN: Rigo Britt M.D. TECHNIQUE: The risks, benefits, and alternatives to the procedure were explained to the patient. The specific risks of bleeding, infection, and damage to bowel were detailed and accepted. Witnessed informed consent was obtained. The abdomen was ultrasonographically surveyed. An appropriate pocket of fluid was identified at the right/left lower quadrant. The skin were cleaned and prepped in the usual sterile fashion. Using ultrasound guidance, the peritoneal cavity was accessed with a 5-Ukrainian paracentesis needle/catheter system. The trocar was removed. A total of 4300 ml of harsh-colored fluid were removed from the peritoneal cavity. The catheter was removed and a sterile dressing was applied. The procedure was well tolerated. US/Paracentesis with US IMPRESSION: Ultrasound guided paracentesis. Electronically Signed: Rigo Britt MD at 13:57 EDT Tel [phone], Service support ,
[2018-03-10 12:39] VITALS: BP 109/50; PULSE 59; RESP 16; O2SAT 100; BMI 31.1
[2018-03-10 14:01] VITALS: BP 109/50; PULSE 59; RESP 16; O2SAT 100
== END ==
PROVIDERS: Family Provider Family Medicine; PCP Family Medicine; Visit Provider Internal Medicine Gastroenterology
DX: R18.8 Other ascites (principal); K74.60 Unspecified cirrhosis of liver
CPT/HCPCS: 49083; J7120

== ENCOUNTER → 2018-03-17 10:15 | Outpatient (CLI) | payer MEDICARE, SELFPAY ==
--- NOTE | 2018-03-17 10:20 | US_ITS ---
PROCEDURE: Ultrasound guided paracentesis. DATE OF EXAMINATION: March 17, 2018. INDICATION: Female, 72 years old. Ascites. PHYSICIAN: Rigo Britt M.D. TECHNIQUE: The risks, benefits, and alternatives to the procedure were explained to the patient. The specific risks of bleeding, infection, and damage to bowel were detailed and accepted. Witnessed informed consent was obtained. The abdomen was ultrasonographically surveyed. An appropriate pocket of fluid was identified at the right lower quadrant. The skin were cleaned and prepped in the usual sterile fashion. Using ultrasound guidance, the peritoneal cavity was accessed with a 5-Libyan paracentesis needle/catheter system. The trocar was removed. A total of 4700 ml of harsh-colored fluid were removed from the peritoneal cavity. The catheter was removed and a sterile dressing was applied. The procedure was well tolerated. US/Paracentesis with US IMPRESSION: Ultrasound guided paracentesis. Electronically Signed: Rigo Britt MD at 11:19 EDT Tel [phone], Service support ,
[2018-03-17 10:30] VITALS: BP 123/52; PULSE 58; RESP 16; O2SAT 100; BMI 31.8
[2018-03-17 10:53] VITALS: BP 103/43; PULSE 57; RESP 16; O2SAT 99
== END ==
PROVIDERS: Family Provider Family Medicine; PCP Family Medicine; Referring Provider Internal Medicine Gastroenterology; Visit Provider Internal Medicine Gastroenterology
DX: R18.8 Other ascites (principal); K74.60 Unspecified cirrhosis of liver
CPT/HCPCS: 49083

== ENCOUNTER → 2018-03-24 10:11 | Outpatient (CLI) | payer MEDICARE, SELFPAY ==
[2018-03-23 12:50] LABS: International Normalized Ratio 1.1; Prothrombin Time (Protime)PT. 13.9 SECONDS (11.7-14.9)
[2018-03-23 12:51] LABS: Partial Thromboplast Time 27.6 Seconds (24.1-36.2)
[2018-03-23 13:09] LABS: Albumin, Serum 2.7 g/dL (3.2-5.0); BUN 85 mg/dL (7-18); BUN/Creat Ratio 42.9 RATIO (10-20); Calcium,Total 9.7 mg/dL (8.5-10.1); Chloride 106 mmol/L (98-107); Creatinine, Serum 1.98 mg/dL (0.55-1.02); EST Glomerular Filtration Rate 26 mL/min (>60); Est Glom Filt Rate - Afr Amer 32 mL/min (>60); Glucose 374 mg/dL (74-106); Phosphorus 3.3 mg/dL (2.5-4.9); Potassium 4.1 mmol/L (3.5-5.1); Sodium Level 137 mmol/L (136-145)
--- NOTE | 2018-03-24 10:13 | US_ITS ---
PROCEDURE: ULTRASOUND GUIDED PARACENTESIS CLINICAL HISTORY: Female, 72 years old. ASCITES CONSENT: The risks, benefits and alternatives to the procedure were explained to the patient, and the patient agreed to the procedure and signed the consent. 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 PROCEDURE/TECHNIQUE: The risks, benefits, and alternatives to the procedure were explained to patient, and the patient agreed to the procedure and signed a consent form for the procedure. TECHNIQUE: Under the ultrasound guidance using sterile technique and after infiltration of the skin and subcutaneous soft tissues with 10 mL of lidocaine 1% a 5 Lithuanian drainage catheter is introduced in the lower part of the abdomen. 5750 mL of fluid were removed sample sent to lab for evaluation. The patient tolerated the procedure there was no immediate complication. FINDINGS: FLUID PRE-PROCEDURE There is posterior enhancement. The findings appear anechoic. There is no loculation. FLUID POST-PROCEDURE Amount of fluid drained: 5750 ml. US/Paracentesis with US IMPRESSION: Successful ultrasound-guided paracentesis. Electronically Signed: Samra Martinez MD at 15:44 EDT Tel , Service support ,
[2018-03-24 10:45] VITALS: BP 120/53; PULSE 69; RESP 16; O2SAT 99; BMI 31.6
[2018-03-24 11:37] VITALS: BP 125/59; PULSE 70; RESP 16; O2SAT 100
--- NOTE | 2018-03-24 12:00 | NURSING ---
PT TO [facility] VIA WC WITH THE RN.
[2018-03-24] MEDS: Albumin Human 25% (100 mL) 25 GM/100 ML BAG IV (12:17)
[2018-03-24 12:18] VITALS: BP 109/53; PULSE 64; RESP 18; TEMP 36.2; O2SAT 99; BMI 31.8
[2018-03-24 13:47] VITALS: BP 104/39; PULSE 73; RESP 16; TEMP 36.3; O2SAT 100
== END ==
PROVIDERS: Family Provider Family Medicine; PCP Family Medicine; Referring Provider Internal Medicine Gastroenterology; Visit Provider Internal Medicine Gastroenterology
DX: K74.60 Unspecified cirrhosis of liver (principal); R18.8 Other ascites
CPT/HCPCS: 96365; 96366; 36415; 49083; 80069; 85610; 85730; P9047

== ENCOUNTER → 2018-03-31 10:20 | Outpatient (CLI) | payer MEDICARE, SELFPAY ==
--- NOTE | 2018-03-31 10:23 | US_ITS ---
PROCEDURE: ULTRASOUND GUIDED PARACENTESIS CLINICAL HISTORY: Female, 72 years old. Ascites. CONSENT: Obtained witnessed written informed consent. Time-Out Called: Yes. Consent form signed: Yes. PT-PTT Levels Checked: Yes. SEDATION: Local 2% lidocaine, 5 cc. PROCEDURE/TECHNIQUE: The risks, benefits, and alternatives to the procedure were explained to patient, and the patient agreed to the procedure and signed a witness written informed consent form for the procedure. TECHNIQUE: Under the ultrasound guidance using sterile technique and after infiltration of the skin and subcutaneous soft tissues with 10 mL of lidocaine 1% a 5 Azerbaijani drainage catheter is introduced in the right lower part of the abdomen. 3600 mL of fluid were removed. The patient tolerated the procedure and there was no immediate complication. FINDINGS: FLUID PRE-PROCEDURE There is posterior enhancement. The findings appear anechoic. There is no loculation. FLUID POST-PROCEDURE Amount of fluid drained: 3600 ml. US/Paracentesis with US IMPRESSION: Successful ultrasound-guided paracentesis. Electronically Signed: Eladio Bazan, at 11:55 EDT Tel , Service support ,
[2018-03-31 10:38] VITALS: BP 116/53; PULSE 76; RESP 16; O2SAT 99; BMI 31.6
[2018-03-31 11:25] VITALS: BP 111/55; PULSE 68; RESP 16; O2SAT 99
== END ==
PROVIDERS: Family Provider Family Medicine; PCP Family Medicine; Referring Provider Internal Medicine Gastroenterology; Visit Provider Internal Medicine Gastroenterology
DX: R18.8 Other ascites (principal); K74.60 Unspecified cirrhosis of liver
CPT/HCPCS: 49083

== ENCOUNTER → 2018-04-12 09:20 | Outpatient (CLI) | payer MEDICARE, SELFPAY ==
--- NOTE | 2018-04-12 09:23 | US_ITS ---
PROCEDURE: Ultrasound guided paracentesis. DATE OF EXAMINATION: April 12, 2018. INDICATION: Female, 72 years old. Ascites. PHYSICIAN: Rigo Britt M.D. TECHNIQUE: The risks, benefits, and alternatives to the procedure were explained to the patient. The specific risks of bleeding, infection, and damage to bowel were detailed and accepted. Witnessed informed consent was obtained. The abdomen was ultrasonographically surveyed. An appropriate pocket of fluid was identified at the left lower quadrant. The skin were cleaned and prepped in the usual sterile fashion. Using ultrasound guidance, the peritoneal cavity was accessed with a 5-Omani paracentesis needle/catheter system. The trocar was removed. A total of 7000 ml of harsh-colored fluid were removed from the peritoneal cavity. The catheter was removed and a sterile dressing was applied. The procedure was well tolerated. US/Paracentesis with US IMPRESSION: Ultrasound guided paracentesis. Electronically Signed: Rigo Britt MD at 11:19 EDT Tel [phone], Service support ,
[2018-04-12 10:45] VITALS: BMI 32.0
[2018-04-12] MEDS: Albumin Human 25% (100 mL) 25 GM/100 ML BAG IV (11:37)
== END ==
LOC: US 09:21 → MEDOUTP 10:43
PROVIDERS: Family Provider Family Medicine; PCP Family Medicine; Referring Provider Internal Medicine Gastroenterology; Visit Provider Internal Medicine Gastroenterology
DX: R18.8 Other ascites (principal); K74.60 Unspecified cirrhosis of liver
CPT/HCPCS: 96365; 96366; 49083; P9047; A4216

== ENCOUNTER → 2018-04-21 12:14 | Outpatient (CLI) | payer MEDICARE, SELFPAY ==
--- NOTE | 2018-04-21 12:17 | US_ITS ---
PROCEDURE: Ultrasound guided paracentesis. DATE OF EXAMINATION: April 21, 2018. INDICATION: Female, 72 years old. Ascites. PHYSICIAN: Rigo Britt M.D. TECHNIQUE: The risks, benefits, and alternatives to the procedure were explained to the patient. The specific risks of bleeding, infection, and damage to bowel were detailed and accepted. Witnessed informed consent was obtained. The abdomen was ultrasonographically surveyed. An appropriate pocket of fluid was identified at the left lower quadrant. The skin were cleaned and prepped in the usual sterile fashion. Using ultrasound guidance, the peritoneal cavity was accessed with a 5-Grenadian paracentesis needle/catheter system. The trocar was removed. A total of 7500 ml of harsh-colored fluid were removed from the peritoneal cavity. The catheter was removed and a sterile dressing was applied. The procedure was well tolerated. US/Paracentesis with US IMPRESSION: Ultrasound guided paracentesis. Electronically Signed: Rigo Britt MD at 13:46 EDT Tel [phone], Service support ,
[2018-04-21 12:40] VITALS: BP 119/52; PULSE 74; RESP 16; O2SAT 99; BMI 33.5
[2018-04-21 13:15] VITALS: BP 119/52; PULSE 68; RESP 16; O2SAT 99
[2018-04-21] MEDS: Albumin Human 25% (100 mL) 25 GM/100 ML BAG IV (13:55)
[2018-04-21 13:56] VITALS: BP 116/57; PULSE 69; RESP 16; TEMP 36.5; BMI 30.9
[2018-04-21] MEDS: Albumin Human 25% (50 mL) 12.5 GM/50 ML IV.SOLN IV (15:24)
== END ==
LOC: US 13:36 → MEDOUTP 13:38
PROVIDERS: Family Provider Family Medicine; PCP Family Medicine; Referring Provider Internal Medicine Gastroenterology; Visit Provider Internal Medicine Gastroenterology
DX: R18.8 Other ascites (principal); K74.60 Unspecified cirrhosis of liver
CPT/HCPCS: 96365; 96366; 49083; P9047; A4216

== ENCOUNTER 2018-04-27 12:14 | Outpatient (RCR) | payer MEDICARE, SELFPAY ==
[2018-04-27 13:36] LABS: Prothrombin Time (Protime)PT. 13.5 SECONDS (11.7-14.9)
[2018-04-27 13:37] LABS: Partial Thromboplast Time 29.2 Seconds (24.1-36.2)
[2018-04-27 13:49] LABS: Anion Gap 6 (5-15); BUN 63 mg/dL (7-18); BUN/Creat Ratio 28.4 RATIO (10-20); Calcium,Total 9.6 mg/dL (8.5-10.1); Chloride 106 mmol/L (98-107); Creatinine, Serum 2.22 mg/dL (0.55-1.02); EST Glomerular Filtration Rate 23 mL/min (>60); Est Glom Filt Rate - Afr Amer 28 mL/min (>60); Glucose 312 mg/dL (74-106); Potassium 4.8 mmol/L (3.5-5.1); Sodium Level 137 mmol/L (136-145)
== END 2018-05-20 10:25 | disposition home or self-care (01) ==
LOC: LAB 12:14
PROVIDERS: Family Provider Family Medicine; PCP Family Medicine; Visit Provider Internal Medicine Gastroenterology
DX: R18.8 Other ascites (principal); K74.60 Unspecified cirrhosis of liver; Z79.899 Other long term (current) drug therapy
CPT/HCPCS: 36415; 80048; 85610; 85730

== ENCOUNTER → 2018-04-28 09:13 | Outpatient (CLI) | payer MEDICARE, SELFPAY ==
--- NOTE | 2018-04-28 09:16 | US_ITS ---
PROCEDURE: Ultrasound guided paracentesis. DATE OF EXAMINATION: April 28, 2018. INDICATION: Female, 72 years old. Ascites. PHYSICIAN: Rigo Britt M.D. TECHNIQUE: The risks, benefits, and alternatives to the procedure were explained to the patient. The specific risks of bleeding, infection, and damage to bowel were detailed and accepted. Witnessed informed consent was obtained. The abdomen was ultrasonographically surveyed. An appropriate pocket of fluid was identified at the right lower quadrant. The skin were cleaned and prepped in the usual sterile fashion. Using ultrasound guidance, the peritoneal cavity was accessed with a 5-Bulgarian paracentesis needle/catheter system. The trocar was removed. A total of 6000 ml of harsh-colored fluid were removed from the peritoneal cavity. The catheter was removed and a sterile dressing was applied. The procedure was well tolerated. US/Paracentesis with US IMPRESSION: Ultrasound guided paracentesis. Electronically Signed: Rigo Britt MD at 11:12 EST Tel [phone], Service support ,
[2018-04-28 09:55] VITALS: BP 135/60; PULSE 68; RESP 16; O2SAT 100; BMI 32.3
[2018-04-28 10:20] VITALS: BP 125/53; PULSE 60; RESP 16; O2SAT 99
--- NOTE | 2018-04-28 10:44 | NURSING ---
PT'S IV STARTED X3 ATTEMPTS. ALBUMIN ORDER FAXED TO PHARMACY AND [facility] CALLED WITH REPORT. PT TO [facility] VIA WC.
[2018-04-28 10:53] VITALS: BP 118/55; PULSE 58; RESP 18; TEMP 35.8; O2SAT 100
[2018-04-28] MEDS: Albumin Human 25% (100 mL) 25 GM/100 ML BAG IV (11:22)
== END ==
PROVIDERS: Family Provider Family Medicine; PCP Family Medicine; Referring Provider Internal Medicine Gastroenterology; Visit Provider Internal Medicine Gastroenterology
DX: R18.8 Other ascites (principal); K74.60 Unspecified cirrhosis of liver
CPT/HCPCS: 96365; 96366; 49083; P9047; A4216

== ENCOUNTER → 2018-05-05 12:15 | Outpatient (CLI) | payer MEDICARE, SELFPAY ==
--- NOTE | 2018-05-05 12:18 | US_ITS ---
PROCEDURE: Ultrasound guided paracentesis. DATE OF EXAMINATION: May 05, 2018. INDICATION: Female, 72 years old. Ascites. PHYSICIAN: Rigo Britt M.D. TECHNIQUE: The risks, benefits, and alternatives to the procedure were explained to the patient. The specific risks of bleeding, infection, and damage to bowel were detailed and accepted. Witnessed informed consent was obtained. The abdomen was ultrasonographically surveyed. An appropriate pocket of fluid was identified at the left lower quadrant. The skin were cleaned and prepped in the usual sterile fashion. Using ultrasound guidance, the peritoneal cavity was accessed with a 5-Danish paracentesis needle/catheter system. The trocar was removed. A total of 6100 ml of harsh-colored fluid were removed from the peritoneal cavity. The catheter was removed and a sterile dressing was applied. The procedure was well tolerated. US/Paracentesis with US IMPRESSION: Ultrasound guided paracentesis. Electronically Signed: Rigo Britt MD at 14:05 EST Tel [phone], Service support ,
[2018-05-05 12:35] VITALS: BP 153/60; PULSE 80; RESP 16; O2SAT 97; BMI 32.1
[2018-05-05 13:32] VITALS: BP 129/109; PULSE 72; RESP 16; TEMP 36.3; O2SAT 100; BMI 32.1
[2018-05-05 13:36] VITALS: BP 120/52; PULSE 72; RESP 16; O2SAT 99
[2018-05-05] MEDS: Albumin Human 25% (100 mL) 25 GM/100 ML BAG IV (13:46)
== END ==
PROVIDERS: Family Provider Family Medicine; PCP Family Medicine; Referring Provider Internal Medicine Gastroenterology; Visit Provider Internal Medicine Gastroenterology
DX: R18.8 Other ascites (principal); K74.60 Unspecified cirrhosis of liver
CPT/HCPCS: 96365; 49083; P9047

== ENCOUNTER → 2018-05-11 10:19 | Outpatient (CLI) | payer MEDICARE, SELFPAY ==
[2018-05-05 13:32] VITALS: BMI 32.1
--- NOTE | 2018-05-11 10:23 | US_ITS ---
PROCEDURE: Ultrasound guided paracentesis. DATE OF EXAMINATION: May 11, 2018. INDICATION: Female, 72 years old. Ascites. PHYSICIAN: Rigo Britt M.D. TECHNIQUE: The risks, benefits, and alternatives to the procedure were explained to the patient. The specific risks of bleeding, infection, and damage to bowel were detailed and accepted. Witnessed informed consent was obtained. The abdomen was ultrasonographically surveyed. An appropriate pocket of fluid was identified at the left lower quadrant. The skin were cleaned and prepped in the usual sterile fashion. Using ultrasound guidance, the peritoneal cavity was accessed with a 5-Syriac paracentesis needle/catheter system. The trocar was removed. A total of 6800 ml of harsh-colored fluid were removed from the peritoneal cavity. The catheter was removed and a sterile dressing was applied. The procedure was well tolerated. US/Paracentesis with US IMPRESSION: Ultrasound guided paracentesis. Electronically Signed: Rigo Britt MD at 12:32 EST Tel [phone], Service support ,
[2018-05-11 10:42] VITALS: BP 134/56; PULSE 60; RESP 16; O2SAT 98; BMI 32.1
[2018-05-11 11:08] VITALS: PULSE 82; RESP 16; O2SAT 99
[2018-05-11 11:49] VITALS: BP 127/68; PULSE 84; RESP 18; TEMP 36.1; O2SAT 97; BMI 30.3
[2018-05-11] MEDS: Albumin Human 25% (100 mL) 25 GM/100 ML BAG IV (11:50)
[2018-05-11 12:55] VITALS: BP 133/54; BP 138/63; PULSE 84; PULSE 89; RESP 16; O2SAT 93; O2SAT 99
[2018-05-11] MEDS: Albumin Human 25% (50 mL) 12.5 GM/50 ML IV.SOLN IV (13:36)
[2018-05-11 14:49] VITALS: BP 125/64; PULSE 79; RESP 16; TEMP 36.6; O2SAT 100
== END ==
PROVIDERS: Family Provider Family Medicine; PCP Family Medicine; Referring Provider Internal Medicine Gastroenterology; Visit Provider Internal Medicine Gastroenterology
DX: K74.60 Unspecified cirrhosis of liver (principal); R18.8 Other ascites
CPT/HCPCS: 96365; 96366 ×2; 49083; P9047

== ENCOUNTER → 2018-05-19 10:25 | Outpatient (CLI) | payer MEDICARE, SELFPAY ==
[2018-05-11 11:49] VITALS: BMI 30.3
--- NOTE | 2018-05-19 10:27 | US_ITS ---
PROCEDURE: Ultrasound guided paracentesis. DATE OF EXAMINATION: May 19, 2018. INDICATION: Female, 72 years old. Ascites. PHYSICIAN: Rigo Britt M.D. TECHNIQUE: The risks, benefits, and alternatives to the procedure were explained to the patient. The specific risks of bleeding, infection, and damage to bowel were detailed and accepted. Witnessed informed consent was obtained. The abdomen was ultrasonographically surveyed. An appropriate pocket of fluid was identified at the left lower quadrant. The skin were cleaned and prepped in the usual sterile fashion. Using ultrasound guidance, the peritoneal cavity was accessed with a 5-Bengali paracentesis needle/catheter system. The trocar was removed. A total of 6500 ml of harsh-colored fluid were removed from the peritoneal cavity. The catheter was removed and a sterile dressing was applied. The procedure was well tolerated. US/Paracentesis with US IMPRESSION: Ultrasound guided paracentesis. Electronically Signed: Rigo Britt MD at 12:13 EST Tel [phone], Service support ,
[2018-05-19 10:38] VITALS: BP 134/68; PULSE 91; RESP 14; O2SAT 97; BMI 31.8
[2018-05-19 10:48] VITALS: BP 126/71; BP 136/69; PULSE 105; PULSE 98; RESP 14; O2SAT 98
[2018-05-19 11:29] VITALS: BP 122/65; PULSE 92; RESP 16; TEMP 36.7; O2SAT 99; BMI 29.9
[2018-05-19] MEDS: Albumin Human 25% (100 mL) 25 GM/100 ML BAG IV (12:02)
[2018-05-19] MEDS: Albumin Human 25% (50 mL) 12.5 GM/50 ML IV.SOLN IV (13:31)
[2018-05-19 13:41] VITALS: BP 132/63; PULSE 91; RESP 14; O2SAT 98
--- OUTSIDE RECORDS SUMMARY | 2018-07-14 12:23 | XMS RPT_ITS ---
:1945 Author Organization OHIP Support Name Relationship Address Phone NEIL MANTILLA Unavailable [address] + [place] [address] GAGE KIMBLE Unavailable [address] + [place] [address] R Unavailable Unavailable Unavailable NEIL MANTILLA Unavailable [address] + [place] [address] GAGE KIMBLE Unavailable [address] + [place] [address] R Unavailable Unavailable Unavailable DAVIDNEIL ANSARI Unavailable [address] + [place] [address] GAGE KIMBLE Unavailable [address] + [place] [address] R Unavailable Unavailable Unavailable DAVIDNEIL ANSARI Unavailable [address] + [place] [address] GAGE KIMBLE Unavailable [address] + [place] [address] R Unavailable Unavailable Unavailable DAVIDNEIL ANSARI Unavailable [address] + [place] [address] GAGE KIMBLE Unavailable [address] + [place] [address] R Unavailable Unavailable Unavailable DAVIDELAN NEIL Unavailable [address] + [place] [address] GAGE KIMBLE Unavailable [address] + [place] [address] R Unavailable Unavailable Unavailable DAVIDNEIL ANSARI Unavailable [address] + [place] [address] GAGE KIMBLE Unavailable [address] + [place] [address] R Unavailable Unavailable Unavailable NEIL MANTILLA Unavailable [address] + [place] [address] GAGE KIMBLE Unavailable [address] + [place] [address] R Unavailable Unavailable Unavailable NEIL MANTILLA Unavailable [address] + [place] [address] GAGE KIMBLE Unavailable [address] + [place] [address] R Unavailable Unavailable Unavailable NEIL MANTILLA Unavailable [address] + [place] [address] GAGE KIMBLE Unavailable [address] + [place] [address] R Unavailable Unavailable Unavailable NEIL MANTILLA Unavailable [address] + [place] [address] GAGE KIMBLE Unavailable [address] + [place] [address] R Unavailable Unavailable Unavailable NEIL MANTILLA Unavailable [address] + [place] [address] GAGE KIMBLE Unavailable [address] + [place] [address] R Unavailable Unavailable Unavailable NEIL MANTILLA Unavailable [address] + [place] [address] GAGE KIMBLE Unavailable [address] + [place] [address] R Unavailable Unavailable Unavailable NEIL MANTILLA Unavailable [address] + [place] [address] GAGE KIMBLE Unavailable [address] + [place] [address] R Unavailable Unavailable Unavailable NEIL MANTILLA Unavailable [address] + [place] [address] GAGE KIMBLE Unavailable [address] + [place] [address] R Unavailable Unavailable Unavailable NEIL MANTILLA Unavailable [address] + [place] [address] GAGE KIMBLE Unavailable [address] + [place] [address] R Unavailable Unavailable NEIL Matute Unavailable [address] + [place] [address] GAGE KIMBLE Unavailable [address] + [place] [address] R Unavailable Unavailable Unavailable NEIL MANTILLA Unavailable [address] + [place] [address] GAGE KIMBLE Unavailable [address] + [place] [address] R Unavailable Unavailable Unavailable NEIL MANTILLA Unavailable [address] + [place] [address] GAGE KIMBLE Unavailable [address] + [place] [address] R Unavailable Unavailable Unavailable NEIL MANTILLA Unavailable [address] + [place] [address] GAGE KIMBLE Unavailable [address] + [place] [address] R Unavailable Unavailable Unavailable NEIL MANTILLA Unavailable [address] + [place] [address] GAGE KIMBLE Unavailable [address] + [place] [address] R Unavailable Unavailable Unavailable NEIL MANTILLA Unavailable [address] + [place] [address] GAGE KIMBLE Unavailable [address] + [place] [address] R Unavailable Unavailable Unavailable NEIL MANTILLA Unavailable [address] + [place] [address] GAGE KIMBLE Unavailable [address] + [place] [address] R Unavailable Unavailable Unavailable NEIL MANTILLA Unavailable [address] + [place] [address] GAGE KIMBLE Unavailable [address] + [place] [address] R Unavailable Unavailable Unavailable NEIL MANTILLA Unavailable [address] + [place] [address] GAGE KIMBLE Unavailable [address] + [place] [address] R Unavailable Unavailable Unavailable NEIL MANTILLA Unavailable [address] + [place] [address] GAGE KIMBLE Unavailable [address] + [place] [address] R Unavailable Unavailable Unavailable NEIL MANTILLA Unavailable [address] + [place] [address] GAGE KIMBLE Unavailable [address] + [place] [address] R Unavailable Unavailable Unavailable NEIL MANTILLA Unavailable [address] + [place] [address] GAGE KIMBLE Unavailable [address] + [place] [address] R Unavailable Unavailable Unavailable NEIL MANTILLA Unavailable [address] + [place] [address] GAGE KIMBLE Unavailable [address] + [place] [address] R Unavailable Unavailable Unavailable NEIL MANTILLA Unavailable Unavailable + NEIL MANTILLA Unavailable Unavailable + LAMIN GAGE Unavailable Unavailable + NEIL MANTILLA Unavailable [address] + [place] [address] LAMIN GAGE Unavailable [address] + [place] [address] R Unavailable Unavailable Unavailable NEIL MANTILLA Unavailable [address] + [place] [address] GAGE KIMBLE Unavailable [address] + [place] [address] R Unavailable Unavailable Unavailable NEIL MANTILLA Unavailable [address] + [place] [address] GAGE KIMBLE Unavailable [address] + [place] [address] R Unavailable Unavailable Unavailable NEIL MANTILLA Unavailable [address] + [place] [address] GAGE KIMBLE Unavailable [address] + [place] [address] R Unavailable Unavailable Unavailable NEIL MANTILLA Unavailable [address] + [place] [address] GAGE KIMBLE Unavailable [address] + [place] [address] R Unavailable Unavailable Unavailable NEIL MANTILLA Unavailable [address] + [place] [address] GAGE KIMBLE Unavailable [address] + [place] [address] R Unavailable Unavailable Unavailable NEIL MANTILLA Unavailable [address] + [place] [address] GAGE KIMBLE Unavailable [address] + [place] [address] R Unavailable Unavailable Unavailable NEIL MANTILLA Unavailable [address] + [place] [address] GAGE KIMBLE Unavailable [address] + [place] [address] R Unavailable Unavailable Unavailable NEIL MANTILLA Unavailable [address] + [place] [address] GAGE KIMBLE Unavailable [address] + [place] [address] R Unavailable Unavailable Unavailable NEIL MANTILLA Unavailable [address] + [place] [address] GAGE KIMBLE Unavailable [address] + [place] [address] R Unavailable Unavailable Unavailable NEIL MANTILLA Unavailable [address] + [place] [address] GAGE KIMBLE Unavailable [address] + [place] [address] R Unavailable Unavailable Unavailable NEIL MANTILLA Unavailable [address] + [place] [address] GAGE KIMBLE Unavailable [address] + [place] [address] R Unavailable Unavailable Unavailable NEIL MANTILLA Unavailable [address] + [place] [address] GAGE KIMBLE Unavailable [address] + [place] [address] R Unavailable Unavailable NEIL Matute Unavailable [address] + [place] [address] GAGE KIMBLE Unavailable [address] + [place] [address] R Unavailable Unavailable Unavailable NEIL MANTILLA Unavailable [address] + [place] [address] GAGE KIMBLE Unavailable [address] + [place] [address] R Unavailable Unavailable Unavailable NEIL MANTILLA Unavailable [address] + [place] [address] GAGE KIMBLE Unavailable [address] + [place] [address] R Unavailable Unavailable Unavailable NEIL MANTILLA Unavailable [address] + [place] [address] GAGE KIMBLE Unavailable [address] + [place] [address] R Unavailable Unavailable Unavailable NEIL MANTILLA Unavailable [address] + [place] [address] GAGE KIMBLE Unavailable [address] + [place] [address] R Unavailable Unavailable Unavailable NEIL MANTILLA Unavailable [address] + [place] [address] GAGE KIMBLE Unavailable [address] + [place] [address] R Unavailable Unavailable Unavailable NEIL MANTILLA Unavailable [address] + [place] [address] GAGE KIMBLE Unavailable [address] + [place] [address] R Unavailable Unavailable Unavailable NEIL MANTILLA Unavailable [address] + [place] [address] GAGE KIMBLE Unavailable [address] + [place] [address] R Unavailable Unavailable Unavailable NEIL MANTILLA Unavailable [address] + [place] [address] GAGE KIMBLE Unavailable [address] + [place] [address] R Unavailable Unavailable Unavailable NEIL MANTILLA Unavailable [address] + [place] [address] GAGE KIMBLE Unavailable [address] + [place] [address] R Unavailable Unavailable Unavailable NEIL MANTILLA Unavailable [address] + [place] [address] GAGE KIMBLE Unavailable [address] + [place] [address] R Unavailable Unavailable Unavailable NEIL MANTILLA Unavailable [address] + [place] [address] GAGE KIMBLE Unavailable [address] + [place] [address] R Unavailable Unavailable Unavailable NEIL MANTILLA Unavailable [address] + [place] [address] GAGE KIMBLE Unavailable [address] + [place] [address] R Unavailable Unavailable Unavailable NEIL MANTILLA Unavailable [address] + [place] [address] GAGE KIMBLE Unavailable [address] + [place] [address] R Unavailable Unavailable Unavailable NEIL MANTILLA Unavailable [address] + [place] [address] GAGE KIMBLE Unavailable [address] + [place] [address] R Unavailable Unavailable Unavailable NEIL MANTILLA Unavailable [address] + [place] [address] GAGE KIMBLE Unavailable [address] + [place] [address] R Unavailable Unavailable Unavailable NEIL MANTILLA Unavailable [address] + [place] [address] GAGE KIMBLE Unavailable [address] + [place] [address] R Unavailable Unavailable Unavailable NEIL MANTILLA Unavailable [address] + [place] [address] GAGE KIMBLE Unavailable [address] + [place] [address] R Unavailable Unavailable Unavailable NEIL MANTILLA Unavailable [address] + [place] [address] GAGE KIMBLE Unavailable [address] + [place] [address] R Unavailable Unavailable Unavailable NEIL MANTILLA Unavailable [address] + [place] [address] LAMINGAGE Unavailable [address] + [place] [address] R Unavailable Unavailable Unavailable NEIL MANTILLA Unavailable [address] + [place] [address] GAGE KIMBLE Unavailable [address] + [place] [address] R Unavailable Unavailable Unavailable NEIL MANTILLA Unavailable [address] + [place] [address] LAMINGAGE Unavailable [address] + [place] [address] R Unavailable Unavailable Unavailable NEIL MANTILLA Unavailable [address] + [place] [address] LAMINGAGE Unavailable [address] + [place] [address] R Unavailable Unavailable Unavailable NEIL MANTILLA Unavailable [address] + [place] [address] LAMINGAGE Unavailable [address] + [place] [address] R Unavailable Unavailable Unavailable NEIL MANTILLA Unavailable [address] + [place] [address] LAMINGAGE Unavailable [address] + [place] [address] R Unavailable Unavailable Unavailable Care Team Providers Name Role Phone NICOLA PRICE Referring Unavailable NICOLA PRICE Attending Unavailable NICOLA PRICE Referring Unavailable NICOLA PRICE Referring Unavailable NICOLA PRICE Attending Unavailable NICOLA PRICE Referring Unavailable JONATHAN LOPEZ, DR. GONZALEZ Attending Unavailable VENKAT LOPEZ, DR. NICOLA Hartley Primary Care Unavailable Nicola Bay Attending Unavailable Nicola Bay Referring Unavailable Bay, Nicola Primary Care Unavailable Bay, Nicola Attending Unavailable Bay, Nicola Primary Care Unavailable Claire, Rob Attending Unavailable Bay, Nicola Primary Care Unavailable Claire, Rob Attending Unavailable Bay, Nicola Primary Care Unavailable Claire, Rob Referring Unavailable Claire, Rob Attending Unavailable Bay, Nicola Primary Care Unavailable Claire, Rob Attending Unavailable Claire, Rob Referring Unavailable Bay, Nicola Primary Care Unavailable Claire, Rob Attending Unavailable Bay, Nicola Primary Care Unavailable Bay, Nicola Primary Care Unavailable Barnett, Jose Alfredo Attending Unavailable Bay, Nicola Attending Unavailable Bay, Nicola Referring Unavailable Bay, Nicola Primary Care Unavailable Bay, Nicola Attending Unavailable Bay, Nicola Referring Unavailable Bay, Nicola Primary Care Unavailable Barnett, Jose Alfredo Attending Unavailable Bay, Nicola Primary Care Unavailable Jabour, Vincent Attending Unavailable Jabour, Vincent Referring Unavailable Bay, Nicola Primary Care Unavailable Bay, Nicola Primary Care Unavailable Ungur, Antonio Attending Unavailable Jabour, Vincent Attending Unavailable Jabour, Vincent Referring Unavailable Bay, Nicola Primary Care Unavailable Qi, Rob Gutierrez Attending Unavailable Qi, Rob Gutierrez Referring Unavailable Bay, Nicola Primary Care Unavailable Bong, Iveth Del Rio Attending Unavailable Bay, Nicola Primary Care Unavailable Bong, Iveth M Attending Unavailable Bay, Nicola Primary Care Unavailable Bong, Iveth M Referring Unavailable Jabour, Vincent Attending Unavailable Jabour, Vincent Referring Unavailable Bay, Nicola Primary Care Unavailable Jabour, Vincent Attending Unavailable Jabour, Vincent Referring Unavailable Bay, Nicola Primary Care Unavailable Barnett, Jose Alfredo Attending Unavailable Bay, Nicola Primary Care Unavailable Jabour, Vincent Attending Unavailable Jabour, Vincent Referring Unavailable Bay, Nicola Primary Care Unavailable Jabour, Vincent Attending Unavailable Bay, Nicola Primary Care Unavailable Masci, Nicola Attending Unavailable Bay, Nicola Primary Care Unavailable Jabour, Vincent Attending Unavailable Bay, Nicola Primary Care Unavailable Jabour, Vincent Attending Unavailable Jabour, Vincent Referring Unavailable Bay, Nicola Primary Care Unavailable Bay, Nicola Attending Unavailable Bay, Nicola Primary Care Unavailable Jabour, Vincent Attending Unavailable Jabour, Vincent Referring Unavailable Bay, Nicola Primary Care Unavailable Barnett, Jose Alfredo Attending Unavailable Bay, Nicola Primary Care Unavailable Jabour, Vincent Attending Unavailable Jabour, Vincent Referring Unavailable Bay, Nicola Primary Care Unavailable Jabour, Vincent Attending Unavailable Jabour, Vincent Referring Unavailable Bay, Nicola Primary Care Unavailable Jabour, Vincent Attending Unavailable Jabour, Vincent Referring Unavailable Bay, Nicola Primary Care Unavailable Jabour, Vincent Attending Unavailable Jabour, Vincent Referring Unavailable Bay, Nicola Primary Care Unavailable Jabour, Vincent Attending Unavailable Jabour, Vincent Referring Unavailable Bay, Nicola Primary Care Unavailable Jabour, Vincent Attending Unavailable Jabour, Vincent Referring Unavailable Bay, Nicola Primary Care Unavailable Jabour, Vincent Attending Unavailable Jabour, Vincent Referring Unavailable Bay, Nicola Primary Care Unavailable Bay, Nicola Attending Unavailable Bay, Nicola Primary Care Unavailable Ashford, Neil Attending Unavailable Ashford, Neil Referring Unavailable Bay, Nicola Primary Care Unavailable Bay, Nicola Primary Care Unavailable Koram, Becky Maki Admitting Unavailable Koram, Becky Maki Attending Unavailable Bakhous, Aziz Consulting Unavailable Koram, Becky Maki Admitting Unavailable Koram, Becky Maki Attending Unavailable Bay, Nicola Primary Care Unavailable Bakhous, Aziz Consulting Unavailable Koram, Becky Maki Consulting Unavailable Jolliff, Hodan Attending Unavailable Bay, Nicola Attending Unavailable Bay, Nicola Primary Care Unavailable Jabour, Vincent Attending Unavailable Jabour, Vincent Referring Unavailable Bay, Nicola Primary Care Unavailable Koram, Becky Maki Attending Unavailable Jabour, Vincent Attending Unavailable Jabour, Vincent Referring Unavailable Bay, Nicola Primary Care Unavailable Jabour, Vincent Attending Unavailable Jabour, Vincent Referring Unavailable Bay, Nicola Primary Care Unavailable Jabour, Vincent Attending Unavailable Jabour, Vincent Referring Unavailable Bay, Nicola Primary Care Unavailable Jabour, Vincent Attending Unavailable Jabour, Vincent Referring Unavailable Bay, Nicola Primary Care Unavailable Jabour, Vincent Attending Unavailable Jabour, Vincent Referring Unavailable Bay, Nicola Primary Care Unavailable Bay, Nicola Attending Unavailable Bay, Nicola Primary Care Unavailable Masci, Nicola Attending Unavailable Masci, Nicola Referring Unavailable Bay, Nicola Primary Care Unavailable Jabour, Vincent Attending Unavailable Jabour, Vincent Referring Unavailable Bay, Nicola Primary Care Unavailable Jabour, Vincent Attending Unavailable Jabour, Vincent Referring Unavailable Bay, Nicola Primary Care Unavailable Jabour, Vincent Attending Unavailable Jabour, Vincent Referring Unavailable Bay, Nicola Primary Care Unavailable Aby, Nicola Attending Unavailable Bay, Nicola Primary Care Unavailable Jabour, Vincent Attending Unavailable Jabour, Vincent Referring Unavailable Bay, Nicola Primary Care Unavailable Bakhous, Aziz Consulting Unavailable Jabour, Vincent Attending Unavailable Jabour, Vincent Referring Unavailable Bay, Nicola Primary Care Unavailable Jabour, Vincent Attending Unavailable Jabour, Vincent Referring Unavailable Bay, Nicola Primary Care Unavailable Jabour, Vincent Attending Unavailable Jabour, Vincent Referring Unavailable Bay, Nicola Primary Care Unavailable Jabour, Vincent Attending Unavailable Jabour, Vincent Referring Unavailable Bay, Nicola Primary Care Unavailable Jabour, Vincent Attending Unavailable Jabour, Vincent Referring Unavailable Bay, Nicola Primary Care Unavailable Jabour, Vincent Attending Unavailable Jabour, Vincent Referring Unavailable Bay, Nicola Primary Care Unavailable Jabour, Vincent Attending Unavailable Jabour, Vincent Referring Unavailable Bay, Nicola Primary Care Unavailable Jabour, Vincent Attending Unavailable Jabour, Vincent Referring Unavailable Bay, Nicola Primary Care Unavailable Jabour, Vincent Attending Unavailable Jabour, Vincent Referring Unavailable Bay, Nicola Primary Care Unavailable Jabour, Vincent Attending Unavailable Jabour, Vincent Referring Unavailable Bay, Nicola Primary Care Unavailable Jabour, Vincent Attending Unavailable Jabour, Vincent Referring Unavailable Bay, Nicola Primary Care Unavailable Jabour, Vincent Attending Unavailable Jabour, Vincent Referring Unavailable Bay, Nicola Primary Care Unavailable PROBLEMS PROBLEMS DATE TYPE CONDITION / CODE ATTENDING STATUS SOURCE 05/25/2018 Unknown 401.9 - Unspecified Abimael Castillo Active [facility] essential [facility] hypertension / Hospital 401.9(ICD-9) Repository 05/25/2018 Unknown I10 - Essential Abimael Castillo Active [facility] (primary) Community hypertension / Hospital I10(ICD-10) Repository 05/25/2018 Unknown 250.00 - Diabetes Abiamel Castillo Active [facility] mellitus without Community mention of Hospital complication, type II Repository or unspecified type, not stated as uncontrolled / 250.00(ICD-9) 05/25/2018 Unknown E11.9 - Type 2 Abimael Castillo Active [place] diabetes mellitus Community without complications Hospital / E11.9(ICD-10) Repository 05/23/2018 Unknown R18.8 - Other ascites Abimael Castillo Active [facility] / R18.8(ICD-10) Community Hospital Repository 05/23/2018 Unknown K74.60 - Unspecified Abimael Castillo Active [facility] cirrhosis of liver / Community K74.60(ICD-10) Hospital Repository 03/01/2018 Unknown D61.818 - Other Nicola Price Active [facility] pancytopenia / Community D61.818(ICD-10) Hospital Repository 04/19/2018 Unknown E87.5 - Hyperkalemia Nicola Bay Active [place] / E87.5(ICD-10) [facility] Hospital Repository 01/26/2018 Unknown K75.81 - Nonalcoholic BayNicola mcfarland Active [facility] steatohepatitis Community ([facility]) / Hospital K75.81(ICD-10) Repository 12/19/2017 Unknown E11.622 - Type 2 BarnettJose Alfredo Active [place] diabetes mellitus Community with other skin ulcer Hospital / E11.622(ICD-10) Repository 03/31/2017 Active Other pancytopenia / NA Active [facility] D61.818(ICD-10) [facility] Main [place] Repository 11/24/2017 Active Other iron deficiency NA Active [facility] anemias / Clinic Main D50.8(ICD-10) [place] Repository 10/13/2017 Unknown R14.0 - Abdominal BayNicola mcfarland Active [place] distension (gaseous) Community / R14.0(ICD-10) Hospital Repository 08/19/2017 Unknown I73.9 - Peripheral Rob Claire Active [facility] vascular disease, Community unspecified / Hospital I73.9(ICD-10) Repository 07/22/2017 Unknown E11.65 - Type 2 Rob Claire Active [place] diabetes mellitus Community with hyperglycemia / Hospital E11.65(ICD-10) Repository 07/22/2017 Unknown L97.819 - Rob Claire Active [facility] Non-pressure chronic Community ulcer of other part Hospital of right lower leg Repository with unspecified severity / L97.819(ICD-10) 07/22/2017 Unknown R60.0 - Localized Rob Claire Active [place] edema / R60.0(ICD-10) [facility] Hospital Repository 02/24/2018 Unknown Z51.89 - Encounter BayNicola mcfarland Active [facility] for other specified Community aftercare / Hospital Z51.89(ICD-10) Repository PROCEDURES PROCEDURES No Procedure Records FoundRESULTS RESULTS ECHO, COMPLETE W/ Observed: 06/06/2018 Status: F Source: [place] CONTRAST 4:49 PM [facility] REPOSITORY [facility] [address] [place] [address] Echo Complete W/ Contrast 06/06/18 1408 MR#: [id number] Acct: [id number] Name: ANITA MCCALLUM Rep #: [id number] : 1945 72 From: Americo Gomez MD Attending Dr: Nicola Bay MD Status: REG CLI Ordering Dr: Nicola Bay MD Date: 06/06/18 Location: [facility] Sex: F C Admitted: Reason For Study: Murmur Procedure This was a 2D Doppler, Color Flow transthoracic echocardiogram. Exam performed in department. Left Ventricle Normal LV size. Left ventricular systolic function is normal. The estimated ejection fraction is 65 %. Stage 1 diastolic dysfunction. No regional wall motion abnormalities noted. Right Ventricle Normal RV size. Normal systolic function. Atria Normal left atrium. Normal right atrium. Mitral Valve Normal mitral valve. Tricuspid Valve Normal tricuspid valve. Aortic Valve Trisinus/trileaflet aortic valve. Moderate focal aortic valve calcification. Mild aortic stenosis. Mild (1+) aortic valve insufficiency. Pulmonic Valve Normal pulmonic valve. Great Vessels Normal aortic root. The pulmonary artery is normal size. Normal inferior vena cava. Pericardium/Pleural No pericardial effusion. Medication Definity0.4ml given slow IV push to enhance endocardial definition. MMode/2D Measurements AND Calculations LVIDd: 3.1 cm IVSd: 1.1 cm LVOT diam: 2.0 cm LVIDs: 1.6 cm LVPWd: 0.97 cm RVDd: 3.7 cm FS: 48.3 % LVOT area: 3.0 cm2 Ao root diam: 3.0 cm LAV(MOD-bp): 44.8 ml LVAd ap4: 26.2 cm2 LAV(MOD-bp) Indexed: 25.4 ml/m2 EDV(MOD-sp4): 76.6 ml LAV(MOD-sp2): 34.0 ml EDV(sp4-el): 80.7 ml LAV(MOD-sp4): 55.2 ml LVAs ap4: 12.4 cm2 ESV(MOD-sp4): 22.4 ml ESV(sp4-el): 23.9 ml EF(MOD-sp4): 70.7 % EF(sp4-el): 70.3 % SV(MOD-sp4): 54.2 ml SV(sp4-el): 56.8 ml LA A4 area: 20.4 cm2 LA dimension(2D): 2.6 cm RA A4 area: 12.5 cm2 Doppler Measurements AND Calculations MV E max maine: 90.9 cm/sec Lat Peak E' [place]: 4.5 cm/sec Med Peak E' [place]: 4.6 cm/sec MV A max [place]: 106.5 cm/sec E/E' lat: 20.1 E/E' med: 19.8 MV E/A: 0.85 Ao V2 max: 275.7 cm/sec LV V1 max: 119.0 cm/sec SV(LVOT): 78.8 ml Ao max P.4 mmHg LV V1 max P.7 mmHg Ao V2 mean: 200.6 cm/sec LV V1 mean P.3 mmHg Ao mean P.5 mmHg LV V1 mean: 87.0 cm/sec Ao V2 VTI: 57.8 cm LV V1 VTI: 26.0 cm KULWANT(I,D): 1.4 cm2 KULWANT(V,D): 1.3 cm2 PA V2 max: 149.5 cm/sec TR max main[place]: 229.4 cm/sec TR max P.0 mmHg Interpretation Summary Normal LV size. Left ventricular systolic function is normal. The estimated ejection fraction is 65 %. Stage 1 diastolic dysfunction. Mild aortic stenosis. Contrast injection was performed. Compared to prior study, there is no significant change. Ordering Physician: Nicola Bay Referring Physician: Nicola Bay Performed By: Ciera Jarrett, RDCS, RVT 06/06/181648 Date Americo Gomez MD CC: Nicola Bay MD Date Dictated: 06/06/18 1408 Date Transcribed: 06/06/181648 Dosimetrist: Signed PARACENTESIS WITH US Observed: 06/02/2018 Status: F Source: [place] 10:27 AM [facility] REPOSITORY [facility] Imaging Services [address] [place] [address] Paracentesis with US MR#: [id number] Acct: [id number] Name: ANITA MCCALLUM Rep #: [id number] : 1945 F 72 From: Rigo Britt MD PCP: Nicola Bay MD Status: REG CLI Study: Paracentesis with US Date of Exam: 06/02/18 Exam# [id number] Ordering Dr: bAimael Castillo MD PROCEDURE: Ultrasound guided paracentesis. DATE OF EXAMINATION: June 02, 2018. INDICATION: Female, 72 years old. Ascites. PHYSICIAN: Rigo Britt M.D. TECHNIQUE: The risks, benefits, and alternatives to the procedure were explained to the patient. The specific risks of bleeding, infection, and damage to bowel were detailed and accepted. Witnessed informed consent was obtained. The abdomen was ultrasonographically surveyed. An appropriate pocket of fluid was identified at the right lower quadrant. The skin were cleaned and prepped in the usual sterile fashion. Using ultrasound guidance, the peritoneal cavity was accessed with a 5-Welsh paracentesis needle/catheter system. The trocar was removed. A total of 2450 ml of harsh-colored fluid were removed from the peritoneal cavity. The catheter was removed and a sterile dressing was applied. The procedure was well tolerated. US/Paracentesis with US IMPRESSION: Ultrasound guided paracentesis. Electronically Signed: Rigo Britt MD at 14:06 EST Tel [phone], Service support , CC: Nicola Bay MD; Abimael Castillo Dosimetrist: Signed PARACENTESIS WITH US Observed: 05/27/2018 Status: F Source: REJI 10:25 AM [facility] REPOSITORY [facility] Services [address] [place] [address] Paracentesis with US MR#: [id number] Acct: [id number] Name: ANITA MCCALLUM Rep #: [id number] : 1945 F 72 From: Rigo Britt MD PCP: Nicola Bay MD Status: REG CLI Study: Paracentesis with US Date of Exam: 05/27/18 Exam# [id number] Ordering Dr: Abimael Castillo MD PROCEDURE: Ultrasound guided paracentesis. DATE OF EXAMINATION: May 27, 2018. INDICATION: Female, 72 years old. Ascites. PHYSICIAN: Rigo Britt M.D. TECHNIQUE: The risks, benefits, and alternatives to the procedure were explained to the patient. The specific risks of bleeding, infection, and damage to bowel were detailed and accepted. Witnessed informed consent was obtained. The abdomen was ultrasonographically surveyed. An appropriate pocket of fluid was identified at the right lower quadrant. The skin were cleaned and prepped in the usual sterile fashion. Using ultrasound guidance, the peritoneal cavity was accessed with a 5-Welsh paracentesis needle/catheter system. The trocar was removed. A total of 4500 ml of harsh-colored fluid were removed from the peritoneal cavity. The catheter was removed and a sterile dressing was applied. The procedure was well tolerated. US/Paracentesis with US IMPRESSION: Ultrasound guided paracentesis. Electronically Signed: Rigo Britt MD at 12:17 EST Tel [phone], Service support , CC: Nicola Bay MD; Abimael Castillo Dosimetrist: Signed PROTHROMBIN TIME W/INR Collected: 05/25/2018 Status: F Source: REJI 12:26 PM [facility] REPOSITORY Order Comment: WANTS THE PT PTT WANTS THE [facility] CMP LIPID TSH A1C TYPE CODE TESTS RESULT OUT OF RANGE REFERENCE UNITS LAB L300.4150 11.7-14.9 SECONDS Normal PROTIME 14.4 LAB L300.4200 Normal INR 1.1 Performed By: #### L300.3900, L300.4310 #### [facility] [address] [place], [address] PARTIAL THROMBOPLAST Collected: 05/25/2018 Status: F Source: REJI TIME 12:26 PM [facility] REPOSITORY Order Comment: WANTS THE PT PTT WANTS THE [facility] LIPID TSH A1C TYPE CODE TESTS RESULT OUT OF RANGE REFERENCE UNITS LAB L300.4310 24.1-36.2 Seconds Normal PTT 28.2 Performed By: #### L300.3900, L300.4310 #### [facility] [address] [place], [address] URINALYSIS, COMPLETE Collected: 05/25/2018 Status: F Source: [place] 12:21 PM [facility] REPOSITORY Order Comment: WANTS THE PT PTT WANTS THE [facility] LIPID TSH A1C How was Urine Obtained? BLADE BENDER FURNACE TENDER TO SPECIFY TYPE CODE TESTS RESULT OUT OF RANGE REFERENCE UNITS LAB L400.3000 Yellow COLOR Normal Yellow LAB L400.3050 Clear Normal CLARITY Clear LAB L400.3200 Normal mg/dl High GLUCOSE, UR 250 LAB L400.3300 Negative mg/dL Normal BILIRUBIN URINE Negative LAB L400.3400 Negative mg/dl Normal KETONE UR Negative LAB L400.3465 1.002-1.030 Normal SP.GR. DIPSTX 1.020 LAB L400.3550 5.0 - 8.0 pH UR Normal 5.0 LAB L400.3600 Negative mg/dl High PROT 15 DIPSTX LAB L400.3700 Normal mg/dl Normal UROBILI Normal LAB L400.3750 Negative Normal NITRITE UR Negative LAB L400.3780 Negative /ul High 10 OCCULT BLOOD-UR LAB L400.3800 Negative /ul High LEUK ESTERASE 500 LAB L400.4050 0-5 /hpf WBC Normal 10-25 SEEN LAB L400.4100 0-5 /hpf Normal RBC-UA 0-5 SEEN LAB L400.4150 5-10 /hpf SQUAM Normal EPI 0-5 SEEN LAB L400.4300 None Seen /hpf 1+ Normal BACTERIA LAB L400.4350 <or=2+ /hpf Normal MUCUS, URINE RARE Performed By: #### L400.0001, L501.9985, L500.4050, L500.4100, L501.9520 #### [facility] [address] [place], [address] HEMOGLOBIN A1C Collected: 05/25/2018 Status: F Source: [place] 12:21 PM [facility] REPOSITORY Order Comment: WANTS THE PT PTT WANTS THE [facility] LIPID TSH A1C TYPE CODE TESTS RESULT OUT OF RANGE REFERENCE UNITS LAB L501.9985 4.2-6.3 % High HGB A1C 10.3 Performed By: #### L400.0001, L501.9985, L500.4050, L500.4100, L501.9520 #### [facility] [address] [place], [address] COMPREHENSIVE METABOLIC Collected: 05/25/2018 Status: F Source: [facility] 12:21 PM [facility] REPOSITORY Order Comment: WANTS THE PT PTT WANTS THE [facility] LIPID TSH A1C TYPE CODE TESTS RESULT OUT OF RANGE REFERENCE UNITS LAB L501.0100 74-106 mg/dL High GLU 350 Result Comment: Glucose result greater than or equal to 200 mg/dL suggests DIABETES MELLITUS per A.D.A. criteria. Please note revised GLUCOSE reference range effective 2017. LAB L501.1000 7-18 mg/dL High BUN 60 LAB L501.1100 0.55-1.02 mg/dL High CREAT,SERUM 2.24 Result Comment: The validity of the calculated GFR AND GFRAA in patients over 70 years has not been determined. Clinical correlation is essential. LAB L501.1110 >60 mL/min Low EST GFR 23 Result Comment: Non- GFR Calc LAB L501.1115 >60 mL/min Low EST GFR - AA 28 Result Comment: GFR Calc LAB L501.1300 10-20 RATIO High BUN/CRE 26.8 LAB L501.1500 6.4-8.2 g/dL Low T PROT 6.1 LAB L501.1800 3.2-5.0 g/dL Low ALB 2.6 LAB L501.1950 2.2-4.2 g/dL Normal GLOB 3.5 LAB L501.2000 0.9-2.4 RATIO Low A/G 0.7 LAB L501.2200 8.5-10.1 mg/dL CA Normal 10.0 LAB L501.4100 15-37 U/L Normal AST 18 Result Comment: Slight Hemolysis, Result may be falsely increased. LAB L501.4305 45-117 U/L High ALK P 145 LAB L501.4405 13-56 U/L Normal ALT 27 LAB L501.4600 0.20-1.00 mg/dL Normal T BILI 0.60 LAB L501.5300 136-145 mmol/L Normal NA 137 LAB L501.5600 3.5-5.1 mmol/L High K 5.5 Result Comment: Slight Hemolysis, Result may be falsely increased. LAB L501.5900 98-107 mmol/L High CL 108 LAB L501.6100 21.0-32.0 mmol/L Normal CO2 23.0 LAB L501.6200 5-15 Normal 6 GAP Performed By: #### L400.0001, L501.9985, L500.4050, L500.4100, L501.9520 #### [facility] [address] [place], [address] LIPID PROFILE Collected: 05/25/2018 Status: F Source: [place] 12:21 PM [facility] REPOSITORY Order Comment: WANTS THE PT PTT WANTS THE [facility] CMP LIPID TSH A1C TYPE CODE TESTS RESULT OUT OF RANGE REFERENCE UNITS LAB L501.4900 200 mg/dL Normal CHOL 106 Result Comment: <200 mg/dL Desirable 200-240 mg/dL Borderline >240 mg/dL High Risk LAB L501.5000 mg/dL Normal TRIG 95 Result Comment: The drugs N-Acetylcysteine and Metamizole may falsely depress this assay. Serum Triglycerides Reference Interval Normal <150 mg/dL Borderline high 150 - 199 mg/dL High 200 - 499 mg/dL Very High > or = 500 mg/dL LAB L501.6400 mg/dL Low HDL 25 Result Comment: The drugs N-Acetylcysteine and Metamizole may falsely depress this assay. Reference Range HDL <40 mg/dL Low HDL Cholesterol HDL >or= 60 mg/dL High HDL Cholesterol LAB L501.6500 0-130 mg/dL Normal LDL 62 LAB L501.6600 5-40 mg/dL Normal VLDL 19 Performed By: #### L400.0001, L501.9985, L500.4050, L500.4100, L501.9520 #### [facility] [address] [place], [address] THYROID STIM HORMONE Collected: 05/25/2018 Status: F Source: [place] (TSH) 12:21 PM [facility] REPOSITORY Order Comment: WANTS THE PT PTT WANTS THE [facility] CMP LIPID TSH A1C TYPE CODE TESTS RESULT OUT OF RANGE REFERENCE UNITS LAB L501.9520 0.358-3.74 uIU/mL Normal TSH 2.39 Performed By: #### L400.0001, L501.9985, L500.4050, L500.4100, L501.9520 #### [facility] [address] [place], [address] PARACENTESIS WITH US Observed: 05/19/2018 Status: F Source: REJI 10:27 AM [facility] REPOSITORY [facility] Imaging Services [address] [place] [address] Paracentesis with US MR#: [id number] Acct: [id number] Name: ANITA MCCALLUM Rep #: [id number] : 1945 F 72 From: Rigo Britt MD PCP: Nicola Bay MD Status: [facility] Study: Paracentesis with US Date of Exam: 05/19/18 Exam# [id number] Ordering Dr: Abimael Castillo MD PROCEDURE: Ultrasound guided paracentesis. DATE OF EXAMINATION: May 19, 2018. INDICATION: Female, 72 years old. Ascites. PHYSICIAN: Rigo Britt M.D. TECHNIQUE: The risks, benefits, and alternatives to the procedure were explained to the patient. The specific risks of bleeding, infection, and damage to bowel were detailed and accepted. Witnessed informed consent was obtained. The abdomen was ultrasonographically surveyed. An appropriate pocket of fluid was identified at the left lower quadrant. The skin were cleaned and prepped in the usual sterile fashion. Using ultrasound guidance, the peritoneal cavity was accessed with a 5-Welsh paracentesis needle/catheter system. The trocar was removed. A total of 6500 ml of harsh-colored fluid were removed from the peritoneal cavity. The catheter was removed and a sterile dressing was applied. The procedure was well tolerated. US/Paracentesis with US IMPRESSION: Ultrasound guided paracentesis. Electronically Signed: Rigo Britt MD at 12:13 EST Tel [phone], Service support , CC: Nicola Bay MD; Abimael Castillo Dosimetrist: Signed PARACENTESIS WITH US Observed: 05/11/2018 Status: F Source: [place] 10:23 AM [facility] Imaging Services [address] [place] [address] Paracentesis with US MR#: [id number] Acct: [id number] Name: ANITA MCCALLUM Rep #: [id number] : 1945 F 72 From: Rigo Britt MD PCP: Nicola Bay MD Status: REG CLI Study: Paracentesis with US Date of Exam: 05/11/18 Exam# [id number] Ordering Dr: Abimael Castillo MD PROCEDURE: Ultrasound guided paracentesis. DATE OF EXAMINATION: May 11, 2018. INDICATION: Female, 72 years old. Ascites. PHYSICIAN: Rigo Britt M.D. TECHNIQUE: The risks, benefits, and alternatives to the procedure were explained to the patient. The specific risks of bleeding, infection, and damage to bowel were detailed and accepted. Witnessed informed consent was obtained. The abdomen was ultrasonographically surveyed. An appropriate pocket of fluid was identified at the left lower quadrant. The skin were cleaned and prepped in the usual sterile fashion. Using ultrasound guidance, the peritoneal cavity was accessed with a 5-Welsh paracentesis needle/catheter system. The trocar was removed. A total of 6800 ml of harsh-colored fluid were removed from the peritoneal cavity. The catheter was removed and a sterile dressing was applied. The procedure was well tolerated. US/Paracentesis with US IMPRESSION: Ultrasound guided paracentesis. Electronically Signed: Rigo Britt MD at 12:32 EST Tel [phone], Service support , CC: Nicola Bay MD; Abimael Catsillo Dosimetrist: Signed PARACENTESIS WITH US Observed: 05/05/2018 Status: F Source: [place] 12:18 PM [facility] REPOSITORY [facility] Services [address] [place] [address] Paracentesis with US MR#: [id number] Acct: [id number] Name: ANITA MCCALLUM Rep #: [id number] : 1945 F 72 From: Rigo Britt MD PCP: Nicola Bay MD Status: REG CLI Study: Paracentesis with US Date of Exam: 05/05/18 Exam# [id number] Ordering Dr: Abimael Castillo MD PROCEDURE: Ultrasound guided paracentesis. DATE OF EXAMINATION: May 05, 2018. INDICATION: Female, 72 years old. Ascites. PHYSICIAN: Rigo Britt M.D. TECHNIQUE: The risks, benefits, and alternatives to the procedure were explained to the patient. The specific risks of bleeding, infection, and damage to bowel were detailed and accepted. Witnessed informed consent was obtained. The abdomen was ultrasonographically surveyed. An appropriate pocket of fluid was identified at the left lower quadrant. The skin were cleaned and prepped in the usual sterile fashion. Using ultrasound guidance, the peritoneal cavity was accessed with a 5-Welsh paracentesis needle/catheter system. The trocar was removed. A total of 6100 ml of harsh-colored fluid were removed from the peritoneal cavity. The catheter was removed and a sterile dressing was applied. The procedure was well tolerated. US/Paracentesis with US IMPRESSION: Ultrasound guided paracentesis. Electronically Signed: Rigo Britt MD at 14:05 EST Tel [phone], Service support , CC: Nicola Bay MD; Abimael Castillo Dosimetrist: Signed PARACENTESIS WITH US Observed: 04/28/2018 Status: F Source: REJI 9:16 AM [facility] REPOSITORY [facility] Services [address] [place] [address] Paracentesis with US MR#: [id number] Acct: [id number] Name: ANITA MCCALLUM Rep #: [id number] : 1945 F 72 From: Rigo Britt MD PCP: Nicola Bay MD Status: REG CLI Study: Paracentesis with US Date of Exam: 04/28/18 Exam# [id number] Ordering Dr: Abimael Castillo MD PROCEDURE: Ultrasound guided paracentesis. DATE OF EXAMINATION: April 28, 2018. INDICATION: Female, 72 years old. Ascites. PHYSICIAN: Rigo Britt M.D. TECHNIQUE: The risks, benefits, and alternatives to the procedure were explained to the patient. The specific risks of bleeding, infection, and damage to bowel were detailed and accepted. Witnessed informed consent was obtained. The abdomen was ultrasonographically surveyed. An appropriate pocket of fluid was identified at the right lower quadrant. The skin were cleaned and prepped in the usual sterile fashion. Using ultrasound guidance, the peritoneal cavity was accessed with a 5-Welsh paracentesis needle/catheter system. The trocar was removed. A total of 6000 ml of harsh-colored fluid were removed from the peritoneal cavity. The catheter was removed and a sterile dressing was applied. The procedure was well tolerated. US/Paracentesis with US IMPRESSION: Ultrasound guided paracentesis. Electronically Signed: Rigo Britt MD at 11:12 EST Tel [phone], Service support , CC: Nicola Bay MD; Abimael Castillo Dosimetrist: Signed BASIC METABOLIC Collected: 04/27/2018 Status: F Source: REJI PROFILE ([facility] [place] [facility]) 12:18 PM [facility] REPOSITORY TYPE CODE TESTS RESULT OUT OF RANGE REFERENCE UNITS LAB L501.0100 74-106 mg/dL High GLU 312 Result Comment: Glucose result greater than or equal to 200 mg/dL suggests DIABETES MELLITUS per A.D.A. criteria. Please note revised GLUCOSE reference range effective 2017. LAB L501.1000 7-18 mg/dL High BUN 63 LAB L501.1100 0.55-1.02 mg/dL High CREAT,SERUM 2.22 Result Comment: The validity of the calculated GFR AND GFRAA in patients over 70 years has not been determined. Clinical correlation is essential. LAB L501.1110 >60 mL/min Low EST GFR 23 Result Comment: Non- GFR Calc LAB L501.1115 >60 mL/min Low EST GFR - AA 28 Result Comment: GFR Calc LAB L501.1300 10-20 RATIO High BUN/CRE 28.4 LAB L501.2200 8.5-10.1 mg/dL CA Normal 9.6 LAB L501.5300 136-145 mmol/L NA Normal 137 LAB L501.5600 3.5-5.1 mmol/L K Normal 4.8 LAB L501.5900 98-107 mmol/L CL Normal 106 LAB L501.6100 21.0-32.0 mmol/L Normal CO2 25.0 LAB L501.6200 5-15 Normal GAP 6 Performed By: #### L500.2500 #### [facility] [address] [place], [address] PROTHROMBIN TIME W/INR Collected: 04/27/2018 Status: F Source: [place] 12:18 PM [facility] REPOSITORY TYPE CODE TESTS RESULT OUT OF RANGE REFERENCE UNITS LAB L300.4150 11.7-14.9 SECONDS Normal PROTIME 13.5 LAB L300.4200 Normal INR 1.0 Performed By: #### L300.3900, L300.4310 #### [facility] [address] [place], [address] PARTIAL THROMBOPLAST Collected: 04/27/2018 Status: F Source: [place] TIME 12:18 PM [facility] REPOSITORY TYPE CODE TESTS RESULT OUT OF RANGE REFERENCE UNITS LAB L300.4310 24.1-36.2 Seconds Normal PTT 29.2 Performed By: #### L300.3900, L300.4310 #### [facility] [address] [place], [address] PARACENTESIS WITH US Observed: 04/21/2018 Status: F Source: [place] 12:17 PM [facility] REPOSITORY [facility] Imaging Services [address] [place] [address] Paracentesis with US MR#: [id number] Acct: [id number] Name: ANITA MCCALLUM Rep #: [id number] : 1945 F 72 From: Rigo rBitt MD PCP: Nicola Bay MD Status: REG CLI Study: Paracentesis with US Date of Exam: 04/21/18 Exam# [id number] Ordering Dr: Abimael Castillo MD PROCEDURE: Ultrasound guided paracentesis. DATE OF EXAMINATION: April 21, 2018. INDICATION: Female, 72 years old. Ascites. PHYSICIAN: Rigo Britt M.D. TECHNIQUE: The risks, benefits, and alternatives to the procedure were explained to the patient. The specific risks of bleeding, infection, and damage to bowel were detailed and accepted. Witnessed informed consent was obtained. The abdomen was ultrasonographically surveyed. An appropriate pocket of fluid was identified at the left lower quadrant. The skin were cleaned and prepped in the usual sterile fashion. Using ultrasound guidance, the peritoneal cavity was accessed with a 5-Welsh paracentesis needle/catheter system. The trocar was removed. A total of 7500 ml of harsh-colored fluid were removed from the peritoneal cavity. The catheter was removed and a sterile dressing was applied. The procedure was well tolerated. US/Paracentesis with US IMPRESSION: Ultrasound guided paracentesis. Electronically Signed: Rigo Britt MD at 13:46 EDT Tel [phone], Service support , CC: Nicola Bay MD; Abimael Castillo Dosimetrist: Signed PARACENTESIS WITH US Observed: 04/12/2018 Status: F Source: [place] 9:23 AM [facility] Imaging Services [address] [place] [address] Paracentesis with US MR#: [id number] Acct: [id number] Name: ANITA MCCALLUM Jelani Rep #: [id number] : 1945 F 72 From: Rigo Britt MD PCP: Nicola Bay MD Status: REG CL Study: Paracentesis with US Date of Exam: 04/12/18 Exam# [id number] Ordering Dr: Abimael Castillo MD PROCEDURE: Ultrasound guided paracentesis. DATE OF EXAMINATION: April 12, 2018. INDICATION: Female, 72 years old. Ascites. PHYSICIAN: Rigo Britt M.D. TECHNIQUE: The risks, benefits, and alternatives to the procedure were explained to the patient. The specific risks of bleeding, infection, and damage to bowel were detailed and accepted. Witnessed informed consent was obtained. The abdomen was ultrasonographically surveyed. An appropriate pocket of fluid was identified at the left lower quadrant. The skin were cleaned and prepped in the usual sterile fashion. Using ultrasound guidance, the peritoneal cavity was accessed with a 5-Welsh paracentesis needle/catheter system. The trocar was removed. A total of 7000 ml of harsh-colored fluid were removed from the peritoneal cavity. The catheter was removed and a sterile dressing was applied. The procedure was well tolerated. US/Paracentesis with US IMPRESSION: Ultrasound guided paracentesis. Electronically Signed: Rigo Britt MD at 11:19 EDT Tel [phone], Service support , CC: Nicola Bay MD; Abimael Castillo Dosimetrist: Signed PARACENTESIS WITH US Observed: 03/31/2018 Status: F Source: [place] 10:23 AM [facility] REPOSITORY [facility] Imaging Services [address] [place] [address] Paracentesis with US MR#: [id number] Acct: [id number] Name: ANITA MCCALLUM Rep #: [id number] : 1945 F 72 From: Eladio Bazan MD PCP: Nicola Bay MD Status: REG CLI Study: Paracentesis with US Date of Exam: 03/31/18 Exam# [id number] Ordering Dr: Abimael Castillo MD PROCEDURE: ULTRASOUND GUIDED PARACENTESIS CLINICAL HISTORY: Female, 72 years old. Ascites. CONSENT: Obtained witnessed written informed consent. Time- Out Called: Yes. Consent form signed: Yes. PT-PTT Levels Checked: Yes. SEDATION: Local 2% lidocaine, 5 cc. PROCEDURE/TECHNIQUE: The risks, benefits, and alternatives to the procedure were explained to patient, and the patient agreed to the procedure and signed a witness written informed consent form for the procedure. TECHNIQUE: Under the ultrasound guidance using sterile technique and after infiltration of the skin and subcutaneous soft tissues with 10 mL of lidocaine 1% a 5 Welsh drainage catheter is introduced in the right lower part of the abdomen. 3600 mL of fluid were removed. The patient tolerated the procedure and there was no immediate complication. FINDINGS: FLUID PRE-PROCEDURE There is posterior enhancement. The findings appear anechoic. There is no loculation. FLUID POST-PROCEDURE Amount of fluid drained: 3600 ml. US/Paracentesis with US IMPRESSION: Successful ultrasound-guided paracentesis. Electronically Signed: Eladio Bazan, at 11:55 EDT Tel , Service support , CC: Nicola Bay MD; Abimael Castillo Dosimetrist: Signed PARACENTESIS WITH US Observed: 03/24/2018 Status: F Source: [place] 10:13 AM [facility] Imaging Services [address] [place] [address] Paracentesis with US MR#: [id number] Acct: [id number] Name: ANITA MCCALLUM Rep #: [id number] : 1945 F 72 From: Samra Martinez MD PCP: Nicola Bay MD Status: REG CLI Study: Paracentesis with US Date of Exam: 03/24/18 Exam# [id number] Ordering Dr: Abimael Castillo MD PROCEDURE: ULTRASOUND GUIDED PARACENTESIS CLINICAL HISTORY: Female, 72 years old. ASCITES CONSENT: The risks, benefits and alternatives to the procedure were explained to the patient, and the patient agreed to the procedure and signed the consent. 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 PROCEDURE/TECHNIQUE: The risks, benefits, and alternatives to the procedure were explained to patient, and the patient agreed to the procedure and signed a consent form for the procedure. TECHNIQUE: Under the ultrasound guidance using sterile technique and after infiltration of the skin and subcutaneous soft tissues with 10 mL of lidocaine 1% a 5 Welsh drainage catheter is introduced in the lower part of the abdomen. 5750 mL of fluid were removed sample sent to lab for evaluation. The patient tolerated the procedure there was no immediate complication. FINDINGS: FLUID PRE-PROCEDURE There is posterior enhancement. The findings appear anechoic. There is no loculation. FLUID POST-PROCEDURE Amount of fluid drained: 5750 ml. US/Paracentesis with US IMPRESSION: Successful ultrasound-guided paracentesis. Electronically Signed: Samra Martinez MD at 15:44 EDT Tel , Service support , CC: Nicola Bay MD; Abimael Castillo Dosimetrist: Signed PROTHROMBIN TIME W/INR Collected: 03/23/2018 Status: F Source: [place] 12:18 PM [facility] REPOSITORY Order Comment: DR CASTILLO GETS PT, PTT, AND BMP DR HERCULES GETS RENAL TYPE CODE TESTS RESULT OUT OF RANGE REFERENCE UNITS LAB L300.4150 11.7-14.9 SECONDS Normal PROTIME 13.9 LAB L300.4200 Normal INR 1.1 Performed By: #### L300.3900, L300.4310 #### [facility] [address] [place], [place], [address] PARTIAL THROMBOPLAST Collected: 03/23/2018 Status: F Source: [place] TIME 12:18 PM [facility] REPOSITORY Order Comment: DR CASTILLO GETS PT, PTT, AND BMP DR HERCULES GETS RENAL TYPE CODE TESTS RESULT OUT OF RANGE REFERENCE UNITS LAB L300.4310 24.1-36.2 Seconds Normal PTT 27.6 Performed By: #### L300.3900, L300.4310 #### [facility] [address] [place], [address] RENAL PROFILE Collected: 03/23/2018 Status: F Source: [place]JI 12:18 PM [facility] REPOSITORY Order Comment: DR CASTILLO GETS PT, PTT, AND BMP DR HERCULES GETS RENAL TYPE CODE TESTS RESULT OUT OF RANGE REFERENCE UNITS LAB L501.0100 74-106 mg/dL High GLU 374 Result Comment: Glucose result greater than or equal to 200 mg/dL suggests DIABETES MELLITUS per A.D.A. criteria. Please note revised GLUCOSE reference range effective 2017. LAB L501.1000 7-18 mg/dL High BUN 85 LAB L501.1100 0.55-1.02 mg/dL High CREAT,SERUM 1.98 Result Comment: The validity of the calculated GFR AND GFRAA in patients over 70 years has not been determined. Clinical correlation is essential. LAB L501.1110 >60 mL/min Low EST GFR 26 Result Comment: Non- GFR Calc LAB L501.1115 >60 mL/min Low EST GFR - AA 32 Result Comment: GFR Calc LAB L501.1300 10-20 RATIO High BUN/CRE 42.9 LAB L501.1800 3.2-5.0 g/dL Low ALB 2.7 LAB L501.2200 8.5-10.1 mg/dL CA Normal 9.7 LAB L501.2300 2.5-4.9 mg/dL Normal PHOS 3.3 LAB L501.5300 136-145 mmol/L NA Normal 137 LAB L501.5600 3.5-5.1 mmol/L K Normal 4.1 LAB L501.5900 98-107 mmol/L CL Normal 106 LAB L501.6100 21.0-32.0 mmol/L Normal CO2 24.0 Performed By: #### L500.3600 #### [facility] [address] [place], [address] PARACENTESIS WITH US Observed: 03/17/2018 Status: F Source: REJI 10:21 AM [facility] REPOSITORY [facility] [address] [place] [address] Paracentesis with US MR#: [id number] Acct: [id number] Name: ANITA MCCALLUM Rep #: [id number] : 1945 F 72 From: Rigo Britt MD PCP: Nicola Bay MD Status: REG CLI Study: Paracentesis with US Date of Exam: 03/17/18 Exam# [id number] Ordering Dr: Abimael Castillo MD PROCEDURE: Ultrasound guided paracentesis. DATE OF EXAMINATION: March 17, 2018. INDICATION: Female, 72 years old. Ascites. PHYSICIAN: Rigo Britt M.D. TECHNIQUE: The risks, benefits, and alternatives to the procedure were explained to the patient. The specific risks of bleeding, infection, and damage to bowel were detailed and accepted. Witnessed informed consent was obtained. The abdomen was ultrasonographically surveyed. An appropriate pocket of fluid was identified at the right lower quadrant. The skin were cleaned and prepped in the usual sterile fashion. Using ultrasound guidance, the peritoneal cavity was accessed with a 5-Welsh paracentesis needle/catheter system. The trocar was removed. A total of 4700 ml of harsh-colored fluid were removed from the peritoneal cavity. The catheter was removed and a sterile dressing was applied. The procedure was well tolerated. US/Paracentesis with US IMPRESSION: Ultrasound guided paracentesis. Electronically Signed: Rigo Britt MD at 11:19 EDT Tel [phone], Service support , CC: Nicola Bay MD; Abimael Castillo Dosimetrist: Signed PARACENTESIS WITH US Observed: 03/10/2018 Status: F Source: REJI 12:24 PM [facility] REPOSITORY [facility] [address] [place] [address] Paracentesis with US MR#: [id number] Acct: [id number] Name: ANITA MCCALLUM Rep #: [id number] : 1945 F 72 From: Rigo Britt MD PCP: Nicola Bay MD Status: REG CLI Study: Paracentesis with US Date of Exam: 03/10/18 Exam# [id number] Ordering Dr: Abimael Castillo MD PROCEDURE: Ultrasound guided paracentesis. DATE OF EXAMINATION: March 10, 2018. INDICATION: Female, 72 years old. Ascites. PHYSICIAN: Rigo Britt M.D. TECHNIQUE: The risks, benefits, and alternatives to the procedure were explained to the patient. The specific risks of bleeding, infection, and damage to bowel were detailed and accepted. Witnessed informed consent was obtained. The abdomen was ultrasonographically surveyed. An appropriate pocket of fluid was identified at the right/left lower quadrant. The skin were cleaned and prepped in the usual sterile fashion. Using ultrasound guidance, the peritoneal cavity was accessed with a 5-Welsh paracentesis needle/catheter system. The trocar was removed. A total of 4300 ml of harsh-colored fluid were removed from the peritoneal cavity. The catheter was removed and a sterile dressing was applied. The procedure was well tolerated. US/Paracentesis with US IMPRESSION: Ultrasound guided paracentesis. Electronically Signed: Rigo Britt MD at 13:57 EDT Tel [phone], Service support , CC: Nicola Bay MD; Abimael Castillo Dosimetrist: Signed PROGRESS Observed: 03/08/2018 Status: COMPLETED Source: [place] 10:[address] [facility] [place] REPOSITORY O ID: [id number] Author: Nicola Price Service: (none) Author Type: Physician Type: Progress Notes Filed: 03/08/2018 10:37 AM Note Text: HPI: The patient is a 72 yo female with h/o pancytopenia. Work up in 2009 significant only for positive JATIN; titer was 1:160 in a homogeneous pattern. Had no symptoms to suggest SLE or other rheumatologic disease. Patient declined bone marrow biopsy at that time. Referred back for hypercalcemia-- Patient was referred back for a new problem of hypercalcemia. She was admitted on 12/27/2016 for progressive weakness over the previous 9 days. Patient received IV fluids. She was admitted. She was evaluated by urology and underwent an extensive workup. 1, 25 dihydroxy vitamin D was 207 pg per mL. Upper limit of normal was 79.3. 25 hydroxy vitamin D was 92 ng per mL. Serum protein electrophoresis showed no evidence of a monoclonal spike. Total albumin was 2.3 g/dL. CBC on admission showed a white count of 1500. Neutrophil count was 900. Hemoglobin 8.9 g/dL. Platelet count 71,000. At time of discharge on 01/13/2017 the total white count was 1000. Differential not performed. Hemoglobin 8.5 g/dL and platelet count 55,000. Serum creatinine was 1.1 on admission it was 1.28 at the time of discharge. She received pamidronate while in the hospital. Since then her calcium remained in the 11.5 mg/dL range. Most recent value was 11.2 mg/dL with a creatinine of 1.28 mg/dL on 02/26/2017. Bone survey demonstrated no lytic lesions. Bone scan showed no evidence of blastic bone metastases. She didn't recall seeing a nuclear weapons specialist in 2009. She denied musculoskeletal pain but had a lot of difficulty stepping up onto the exam table. Patient underwent bone marrow biopsy on 04/14/2017. Specimen demonstrated a normocellular marrow with trilineage hematopoiesis and mild erythroid hyperplasia. There was a focal nonnecrotizing granuloma on the core biopsy. Iron stains demonstrated absent iron. No evidence of acid fast bacilli or fungi. Flow cytometry demonstrated no evidence of an immunophenotypic abnormality. Presents for ongoing hematologic management. Interim history: She is now undergoing weekly paracentesis. She's not having any abdominal pain. Appetite is been okay. She is also developed increase in serum creatinine and her primary care physician is recommended nephrology consultation. She's had no unusual bleeding or unexplained bruising. No recent episode of fever, chills or night sweats. PMH, medications and allergies personally reviewed by me today. Any changes documented in appropriate section. ROS: Constitutional: Denies episodes of fever and night sweats. Neuro: Denies DANG, vertigo, visual changes. Resp: Denies cough, wheeze and hemoptysis. No shortness of breath at rest. CVS: Denies exertional chest pain, PND, orthopnea and LE edema. GI: No symptoms of stomatitis. No odynophagia or dysphagia. : No dysuria or gross hematuria. Musculoskeletal: Denies bone, back, joint and muscular pain. Heme: See above. Derm: No rash except rosacea. Psych: Normal mood. PHYSICAL EXAM: Vitals: Blood pressure 124/59, pulse 62, temperature 36.7 ?C (98.1 ?F), temperature source Temporal Artery, weight 77.1 kg (170 lb). Well-appearing and in no acute distress. EYES: Sclerae are anicteric bilaterally. NECK: Supple. No enlargement of thyroid. LYMPHATIC: There is no palpable cervical, supraclavicular denopathy. RESPIRATORY: Inspiratory breath sounds are of normal intensity in all bahena. No rales, wheezes or rhonchi. CARDIOVASCULAR: Rhythm is regular. Normal intensity S1/S2. There is no gallop or murmur. ABDOMEN: The abdomen is distended and there is a fluid wave. I'm not able to appreciate splenomegaly due to the ascites. Extremities: Chronic swelling both LEs. SKIN: No jaundice or rash. No petechiae. No spider angiomas. No palmar erythema. NEUROLOGIC: home appraiser II-XII are grossly intact. 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 -Previous 2 bone marrow biopsies normal. -Recently developmed ascites, so etiology of pancytopenia due to hypersplenism/splenomegaly secondary to underlying cirrhosis. -Reviewed labs in detail. -May be candidate for CITLALI therapy in the future. Plan: - OV/CBC/Iron studies in about 3 months. [facility] Observed: 03/08/2018 Status: COMPLETED Source: [place] 10:10 AM [facility] REPOSITORY Visit (SP) Office ([place]) ANITA MCCALLUM ([id number]) 1945 F Date Time Provider Department 03/08/18 10:10 AM NICOLA PRICE During your visit today, we recorded the following information about you: Temperature Pulse Blood pressure Weight 98.1 degrees 62/minute 124/59 77.1 kg Nicola Price DO 03/08/2018 10:37 AM Signed HPI: The patient is a 72 yo female with h/o pancytopenia. Work up in 2009 significant only for positive JATIN; titer was 1:160 in a homogeneous pattern. Had no symptoms to suggest SLE or other rheumatologic disease. Patient declined bone marrow biopsy at that time. Referred back for hypercalcemia-- Patient was referred back for a new problem of hypercalcemia. She was admitted on 12/27/2016 for progressive weakness over the previous 9 days. Patient received IV fluids. She was admitted. She was evaluated by urology and underwent an extensive workup. 1, 25 dihydroxy vitamin D was 207 pg per mL. Upper limit of normal was 79.3. 25 hydroxy vitamin D was 92 ng per mL. Serum protein electrophoresis showed no evidence of a monoclonal spike. Total albumin was 2.3 g/dL. CBC on admission showed a white count of 1500. Neutrophil count was 900. Hemoglobin 8.9 g/dL. Platelet count 71,000. At time of discharge on 01/13/2017 the total white count was 1000. Differential not performed. Hemoglobin 8.5 g/dL and platelet count 55,000. Serum creatinine was 1.1 on admission it was 1.28 at the time of discharge. She received pamidronate while in the hospital. Since then her calcium remained in the 11.5 mg/dL range. Most recent value was 11.2 mg/dL with a creatinine of 1.28 mg/dL on 02/26/2017. Bone survey demonstrated no lytic lesions. Bone scan showed no evidence of blastic bone metastases. She didn't recall seeing a nuclear weapons specialist in 2009. She denied musculoskeletal pain but had a lot of difficulty stepping up onto the exam table. Patient underwent bone marrow biopsy on 04/14/2017. Specimen demonstrated a normocellular marrow with trilineage hematopoiesis and mild erythroid hyperplasia. There was a focal nonnecrotizing granuloma on the core biopsy. Iron stains demonstrated absent iron. No evidence of acid fast bacilli or fungi. Flow cytometry demonstrated no evidence of an immunophenotypic abnormality. Presents for ongoing hematologic management. Interim history: She is now undergoing weekly paracentesis. She's not having any abdominal pain. Appetite is been okay. She is also developed increase in serum creatinine and her primary care physician is recommended nephrology consultation. She's had no unusual bleeding or unexplained bruising. No recent episode of fever, chills or night sweats. PMH, medications and allergies personally reviewed by me today. Any changes documented in appropriate section. ROS: Constitutional: Denies episodes of fever and night sweats. Neuro: Denies DANG, vertigo, visual changes. Resp: Denies cough, wheeze and hemoptysis. No shortness of breath at rest. CVS: Denies exertional chest pain, PND, orthopnea and LE edema. GI: No symptoms of stomatitis. No odynophagia or dysphagia. : No dysuria or gross hematuria. Musculoskeletal: Denies bone, back, joint and muscular pain. Heme: See above. Derm: No rash except rosacea. Psych: Normal mood. PHYSICAL EXAM: Vitals: Blood pressure 124/59, pulse 62, temperature 36.7 ?C (98.1 ?F), temperature source Temporal Artery, weight 77.1 kg (170 lb). Well-appearing and in no acute distress. EYES: Sclerae are anicteric bilaterally. NECK: Supple. No enlargement of thyroid. LYMPHATIC: There is no palpable cervical, supraclavicular denopathy. RESPIRATORY: Inspiratory breath sounds are of normal intensity in all bahena. No rales, wheezes or rhonchi. CARDIOVASCULAR: Rhythm is regular. Normal intensity S1/S2. There is no gallop or murmur. ABDOMEN: The abdomen is distended and there is a fluid wave. I'm not able to appreciate splenomegaly due to the ascites. Extremities: Chronic swelling both LEs. SKIN: No jaundice or rash. No petechiae. No spider angiomas. No palmar erythema. NEUROLOGIC: home appraiser II-XII are grossly intact. 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 -Previous 2 bone marrow biopsies normal. -Recently developmed ascites, so etiology of pancytopenia due to hypersplenism/splenomegaly secondary to underlying cirrhosis. -Reviewed labs in detail. -May be candidate for CITLALI therapy in the future. Plan: - OV/CBC/Iron studies in about 3 months. Nicola Price DO Referring Provider: NICOLA PRICE [[id number]] Allergies As of Date: 03/08/2018 Noted Allergy Reaction BIAXIN (CLARITHROMYCIN) 06/12/2009 POTASSIUM IODIDE 06/12/2009 Date Reviewed: 03/08/2018 Reviewed by: Nicola Price - Fully Assessed Reason for Visit: Established Patient [175] Primary Visit Diagnosis:Pancytopenia (HCC) [D61.818] Follow-up and Disposition History Recorded Prescriptions as of 03/08/2018 Sig: AMLODIPINE 5 MG TABLET Take 5 mg by mouth once daily. SPIRONOLACTONE 50 MG TABLET Take 50 mg by mouth once kevin* FUROSEMIDE 40 MG TABLET Take 40 mg by mouth every oth* ATENOLOL 50 MG TABLET Take 50 mg by mouth twice sabrina* HUMALOG KWIKPEN (U-100) INSUL* Sliding scale. Medication notes this encounter LOSARTAN 50 MG TABLET >> Rosenda Del Toro MA 03/08/2018 9:59 AM >> ROSENDA DEL TORO MA brina Mar 08, 2018 9:59 AM No longer taking. METFORMIN 1,000 MG TABLET >> Rosenda Del Toro MA 03/08/2018 10:00 AM >> ROSENDA DEL TORO MA Mar 08, 2018 10:00 AM No longer taking. Problem List As Of Date 03/08/2018 Noted Resolved Anemia [D64.9] INVALID FOR* Pancytopenia (HCC) [D61.818] INVALID FOR* Hyperparathyroidism (HCC) [E21.3] INVALID FOR* Hypercalcemia [E83.52] INVALID FOR* Hypersplenism [D73.1] INVALID FOR* Encounter Status:Closed by NICOLA PRICE DO on 03/08/18 PARACENTESIS WITH US Observed: 03/03/2018 Status: F Source: [place] 12:22 PM [facility] REPOSITORY [facility] [address] [place] [address] Paracentesis with US MR#: [id number] Acct: [id number] Name: ANITA MCCALLUM Rep #: [id number] : 1945 F 72 From: Rigo Britt MD PCP: Nicola Bay MD Status: REG CLI Study: Paracentesis with US Date of Exam: 03/03/18 Exam# [id number] Ordering Dr: Abiamel Castillo MD PROCEDURE: Ultrasound guided paracentesis. DATE OF EXAMINATION: March 03, 2018. INDICATION: Female, 72 years old. Ascites. PHYSICIAN: Rigo Britt M.D. TECHNIQUE: The risks, benefits, and alternatives to the procedure were explained to the patient. The specific risks of bleeding, infection, and damage to bowel were detailed and accepted. Witnessed informed consent was obtained. The abdomen was ultrasonographically surveyed. An appropriate pocket of fluid was identified at the left lower quadrant. The skin were cleaned and prepped in the usual sterile fashion. Using ultrasound guidance, the peritoneal cavity was accessed with a 5-Welsh paracentesis needle/catheter system. The trocar was removed. A total of 4350 ml of harsh-colored fluid were removed from the peritoneal cavity. The catheter was removed and a sterile dressing was applied. The procedure was well tolerated. US/Paracentesis with US IMPRESSION: Ultrasound guided paracentesis. Electronically Signed: Rigo Britt MD at 15:51 EDT Tel [phone], Service support , CC: Nicola Bay MD; Abimael Castillo Dosimetrist: Signed TROY ABS GR + CBC Collected: 03/01/2018 Status: F Source: [place] 1:01 PM [facility] REPOSITORY TYPE CODE TESTS RESULT OUT OF REFERENCE UNITS RANGE LAB WWBC 3.70-11.00 k/uL Low [place]ji WBC 2.85 LAB WRBC 3.90-5.20 m/uL Low [place] RBC 3.22 LAB WHGB 11.5-15.5 g/dL Low Reji Hemoglobin 10.1 LAB WHCT 36.0-46.0 % Low Reji Hematocrit 30.5 LAB WMCV 80.0-100.0 fL [place] MCV 94.7 LAB WMCH 26.0-34.0 pg Reji MCH 31.4 LAB WMCHC 30.5-36.0 g/dL Reji MCHC 33.1 LAB WRDW 11.5-15.0 % Reji RDW 14.1 LAB WPLT 150-400 k/uL Low Reji Platelet Cnt 68 LAB WMPV 9.0-12.7 fL [place] MPV 10.5 Result Comment: Test performed at: [facility], [address] [place] [address]. LAB ABGRAN 1.45-7.50 k/uL Absol Gran 2.10 Count COMP METABOLIC PANEL Collected: 03/01/2018 Status: F Source: [place] 12:59 PM [facility] REPOSITORY TYPE CODE TESTS RESULT OUT OF REFERENCE UNITS RANGE LAB TP 6.3-8.0 g/dL Test sent to [facility]. Result Comment: Account Credited HIDE LAB ALB 3.9-4.9 g/dL Test Albumin sent to [facility]. Result Comment: Account Credited [facility]IDE LAB CA 8.5-10.2 mg/dL Test Calcium, Total sent to [facility]. Result Comment: Account Credited [facility]IDE LAB TBIL 0.2-1.3 mg/dL Bilirubin, Test Total sent to [facility]. Result Comment: Account Credited [facility]IDE LAB ALKP 32-117 U/L Alkaline Test Phosphatase sent to [facility]. Result Comment: Account Credited [facility] LAB AST 13-35 U/L Test sent AST to [facility]. Result Comment: Account Credited [facility]IDE LAB GLU 74-99 mg/dL Test sent Glucose to [facility]. Result Comment: Account Credited [facility]IDE LAB BUN 7-21 mg/dL Test sent BUN to [facility]. Result Comment: Account Credited [facility] LAB CRET 0.58-0.96 mg/dL Creatinine Test sent to [facility]. Result Comment: Account Credited [facility]IDE LAB NA 136-144 mmol/L Test Sodium sent to [facility]. Result Comment: Account Credited [facility]IDE LAB K 3.7-5.1 mmol/L Test Potassium sent to [facility]. Result Comment: Account Credited [facility] LAB CL 97-105 mmol/L Test Chloride sent to [facility]. Result Comment: Account Credited [facility]IDE LAB CO2 22-30 mmol/L Test sent CO2 to [facility]. Result Comment: Account Credited HIDE LAB AGAP 9-18 mmol/L Test sent Anion Gap to [facility]. Result Comment: Account Credited [facility]IDE LAB ALT 7-38 U/L Test sent to ALT [facility]. Result Comment: Account Credited HIDE LAB GFRAA eGFR- Amer. Test sent to [facility]. Result Comment: Account Credited HIDE LAB GFRNAA . eGFR-All Test sent Other Races to [facility]. Result Comment: Account Credited HIDE LAB GFRPED eGFR-Ped. Test sent Factor to [facility]. Result Comment: Account Credited JASKARAN FERRITIN Collected: 03/01/2018 Status: F Source: [place] 12:[address] [facility] REPOSITORY TYPE CODE TESTS RESULT OUT OF REFERENCE UNITS RANGE LAB FERR 14.7-205.1 ng/mL Test Ferritin sent to [facility]. Result Comment: Account Credited [facility] IRON AND TIBC Collected: 03/01/2018 Status: F Source: [place] 12:[address] [facility] [place] REPOSITORY TYPE CODE TESTS RESULT OUT OF REFERENCE UNITS RANGE LAB IRN 41-186 ug/dL Test Iron sent to [facility]. Result Comment: Account Credited [facility] LAB TIBC 232-386 ug/dL Test sent TIBC to [facility]. Result Comment: Account Credited [facility] LAB SAT 15-57 % Transferrin Test sent Saturatn to [facility]. Result Comment: Account Credited HIDE COMPREHENSIVE METABOLIC Collected: 03/01/2018 Status: F Source: [place] 12:59 PM [facility] REPOSITORY TYPE CODE TESTS RESULT OUT OF RANGE REFERENCE UNITS LAB L501.0100 74-106 mg/dL High GLU 282 Result Comment: Glucose result greater than or equal to 200 mg/dL suggests DIABETES MELLITUS per A.D.A. criteria. Please note revised GLUCOSE reference range effective 2017. LAB L501.1000 7-18 mg/dL High BUN 92 LAB L501.1100 0.55-1.02 mg/dL High CREAT,SERUM 1.86 Result Comment: The validity of the calculated GFR AND GFRAA in patients over 70 years has not been determined. Clinical correlation is essential. LAB L501.1110 >60 mL/min Low EST GFR 28 Result Comment: Non- GFR Calc LAB L501.1115 >60 mL/min Low EST GFR - AA 34 Result Comment: GFR Calc LAB L501.1300 10-20 RATIO High BUN/CRE 49.5 LAB L501.1500 6.4-8.2 g/dL T Normal PROT 6.4 LAB L501.1800 3.2-5.0 g/dL Low ALB 3.0 LAB L501.1950 2.2-4.2 g/dL Normal GLOB 3.4 LAB L501.2000 0.9-2.4 RATIO Normal A/G 0.9 LAB L501.2200 8.5-10.1 mg/dL High CA 10.3 LAB L501.4100 15-37 U/L High AST 40 LAB L501.4305 45-117 U/L High ALK P 219 LAB L501.4405 13-56 U/L High ALT 69 LAB L501.4600 0.20-1.00 mg/dL T Normal BILI 0.50 LAB L501.5300 136-145 mmol/L NA Normal 139 LAB L501.5600 3.5-5.1 mmol/L K Normal 4.7 LAB L501.5900 98-107 mmol/L CL Normal 106 LAB L501.6100 21.0-32.0 mmol/L Normal CO2 26.0 LAB L501.6200 5-15 Normal GAP 7 Performed By: #### L500.4050, L503.6040, L503.6150, L503.6550 #### [facility] [address] [place], [address] IRON BINDING Collected: 03/01/2018 Status: F Source: [place] 12:59 PM [facility] REPOSITORY TYPE CODE TESTS RESULT OUT OF RANGE REFERENCE UNITS LAB L503.6075 250-450 ug/dL Normal TIBC 264 Performed By: #### L500.4050, L503.6075, L503.6150, L503.6550 #### [facility] [address] [place], [address] IRON Collected: 03/01/2018 Status: F Source: [place] 12:59 PM [facility] REPOSITORY TYPE CODE TESTS RESULT OUT OF RANGE REFERENCE UNITS LAB L503.6150 50-170 ug/dL Normal IRON 92 Performed By: #### L500.4050, L503.6075, L503.6150, L503.6550 #### [facility] [address] [place], [address] FERRITIN Collected: 03/01/2018 Status: F Source: [place] 12:59 PM [facility] REPOSITORY TYPE CODE TESTS RESULT OUT OF REFERENCE UNITS RANGE LAB L503.6550 8-252 ng/mL High FERRITIN 303 Performed By: #### L500.4050, L503.6075, L503.6150, L503.6550 #### [facility] [address] [place], [address] PARACENTESIS WITH US Observed: 02/24/2018 Status: F Source: [place] 10:21 AM [facility] REPOSITORY [facility] [address] [place] [address] Paracentesis with US MR#: [id number] Acct: [id number] Name: ANITA MCCALLUM Jelani Rep #: [id number] : 1945 F 72 From: Rigo Britt MD PCP: Nicola Bay MD Status: REG CLI Study: Paracentesis with US Date of Exam: 02/24/18 Exam# [id number] Ordering Dr: Abimael Castillo MD PROCEDURE: Ultrasound guided paracentesis. DATE OF EXAMINATION: February 24, 2018. INDICATION: Female, 72 years old. Ascites. PHYSICIAN: Rigo Britt M.D. TECHNIQUE: The risks, benefits, and alternatives to the procedure were explained to the patient. The specific risks of bleeding, infection, and damage to bowel were detailed and accepted. Witnessed informed consent was obtained. The abdomen was ultrasonographically surveyed. An appropriate pocket of fluid was identified at the right lower quadrant. The skin were cleaned and prepped in the usual sterile fashion. Using ultrasound guidance, the peritoneal cavity was accessed with a 5-Welsh paracentesis needle/catheter system. The trocar was removed. A total of 5350 ml of harsh-colored fluid were removed from the peritoneal cavity. The catheter was removed and a sterile dressing was applied. The procedure was well tolerated. US/Paracentesis with US IMPRESSION: Ultrasound guided paracentesis. Electronically Signed: Rigo Britt MD at 14:37 EDT Tel [phone], Service support , CC: Nicola Bay MD; Abimael Castillo Dosimetrist: Signed PROTHROMBIN TIME W/INR Collected: 02/22/2018 Status: F Source: [place] 12:48 PM [facility] REPOSITORY TYPE CODE TESTS RESULT OUT OF RANGE REFERENCE UNITS LAB L300.4150 11.7-14.9 SECONDS Normal PROTIME 13.7 LAB L300.4200 Normal INR 1.1 Performed By: #### L300.3900, L300.4310 #### [facility] [address] [place], [address] PARTIAL THROMBOPLAST Collected: 02/22/2018 Status: F Source: [place] TIME 12:48 PM [facility] REPOSITORY TYPE CODE TESTS RESULT OUT OF RANGE REFERENCE UNITS LAB L300.4310 24.1-36.2 Seconds Normal PTT 29.1 Performed By: #### L300.3900, L300.4310 #### [facility] [address] [place], [address] PARACENTESIS WITH US Observed: 02/17/2018 Status: F Source: [place] 10:16 AM [facility] REPOSITORY [facility] Imaging Services [address] [place] [address] Paracentesis with US MR#: [id number] Acct: [id number] Name: NAITA MCCALLUM Rep #: [id number] : 1945 F 72 From: Rigo Britt MD PCP: Nicola Bay MD Status: REG CLI Study: Paracentesis with US Date of Exam: 02/17/18 Exam# [id number] Ordering Dr: Abimael Castillo MD PROCEDURE: Ultrasound guided paracentesis. DATE OF EXAMINATION: February 17, 2018. INDICATION: Female, 72 years old. Ascites. PHYSICIAN: Rigo Britt M.D. TECHNIQUE: The risks, benefits, and alternatives to the procedure were explained to the patient. The specific risks of bleeding, infection, and damage to bowel were detailed and accepted. Witnessed informed consent was obtained. The abdomen was ultrasonographically surveyed. An appropriate pocket of fluid was identified at the right lower quadrant. The skin were cleaned and prepped in the usual sterile fashion. Using ultrasound guidance, the peritoneal cavity was accessed with a 5-Welsh paracentesis needle/catheter system. The trocar was removed. A total of 6800 ml of harsh-colored fluid were removed from the peritoneal cavity. The catheter was removed and a sterile dressing was applied. The procedure was well tolerated. US/Paracentesis with US IMPRESSION: Ultrasound guided paracentesis. Electronically Signed: Rigo Britt MD at 12:46 EDT Tel [phone], Service support , CC: Nicola Bay MD; Abimael Castillo Dosimetrist: Signed PARACENTESIS WITH US Observed: 02/10/2018 Status: F Source: [place] 10:17 AM [facility] REPOSITORY [facility] Imaging Services [address] [place] [address] Paracentesis with US MR#: [id number] Acct: [id number] Name: ANITA MCCALLUM Rep #: [id number] : 1945 F 72 From: Rigo Britt MD PCP: Nicola Bay MD Status: REG CLI Study: Paracentesis with US Date of Exam: 02/10/18 Exam# [id number] Ordering Dr: Abimael Castillo MD PROCEDURE: Ultrasound guided paracentesis. DATE OF EXAMINATION: February 10, 2018. INDICATION: Female, 72 years old. Ascites. PHYSICIAN: Rigo Britt M.D. TECHNIQUE: The risks, benefits, and alternatives to the procedure were explained to the patient. The specific risks of bleeding, infection, and damage to bowel were detailed and accepted. Witnessed informed consent was obtained. The abdomen was ultrasonographically surveyed. An appropriate pocket of fluid was identified at the right lower quadrant. The skin were cleaned and prepped in the usual sterile fashion. Using ultrasound guidance, the peritoneal cavity was accessed with a 5-Welsh paracentesis needle/catheter system. The trocar was removed. A total of 2700 ml of harsh-colored fluid were removed from the peritoneal cavity. The catheter was removed and a sterile dressing was applied. The procedure was well tolerated. US/Paracentesis with US IMPRESSION: Ultrasound guided paracentesis. Electronically Signed: Rigo Britt MD at 11:19 EDT Tel [phone], Service support , CC: Nicola Bay MD; Abimael Castillo Dosimetrist: Signed PARACENTESIS WITH US Observed: 02/03/2018 Status: F Source: [place] 12:22 PM [facility] REPOSITORY [facility] Services [address] [place] [address] Paracentesis with US MR#: [id number] Acct: [id number] Name: ANITA MCCALLUM Rep #: [id number] : 1945 F 72 From: Rigo Britt MD PCP: Nicola Bay MD Status: REG CLI Study: Paracentesis with US Date of Exam: 02/03/18 Exam# [id number] Ordering Dr: Abimael Castillo MD PROCEDURE: Ultrasound guided paracentesis. DATE OF EXAMINATION: February 03, 2018.. INDICATION: Female, 72 years old. Ascites. PHYSICIAN: Rigo Britt M.D. TECHNIQUE: The risks, benefits, and alternatives to the procedure were explained to the patient. The specific risks of bleeding, infection, and damage to bowel were detailed and accepted. Witnessed informed consent was obtained. The abdomen was ultrasonographically surveyed. An appropriate pocket of fluid was identified at the left lower quadrant. The skin were cleaned and prepped in the usual sterile fashion. Using ultrasound guidance, the peritoneal cavity was accessed with a 5-Welsh paracentesis needle/catheter system. The trocar was removed. A total of 5600 ml of harsh-colored fluid were removed from the peritoneal cavity. The catheter was removed and a sterile dressing was applied. The procedure was well tolerated. US/Paracentesis with US IMPRESSION: Ultrasound guided paracentesis. Electronically Signed: Rigo Britt MD at 13:57 EDT Tel [phone], Service support , CC: Nicola Bay MD; Abimael Castillo Dosimetrist: Signed 12 LEAD ELECTROCARDIOGRAM Observed: 01/31/2018 Status: F Source: [place] 3:21 PM [facility] REPOSITORY [facility] Cardiovascular Services [address] [place] [address] 12 Lead EKG 01/22/18 1110 MR#: [id number] Acct: [id number] Name: ANITA MCCALLUM Rep #: [id number] : 1945 72 From: Americo Gomez MD Attending Dr: Becky Wharton MD Status: DIS IN Ordering Dr: Jose Ellis MD Date: 01/22/18 Location: [facility] Sex: F C Admitted: 01/22/18 Test Reason : AB LABS Blood Pressure : / mmHG Vent. Rate : 078 BPM Atrial Rate : 078 BPM P-R Int : 142 ms QRS Dur : 082 ms QT Int : 342 ms P-R-T Axes : 046 006 016 degrees QTc Int : 389 ms Normal sinus rhythm Normal ECG Confirmed by NICOLA SHAW, AMERICO ([id number]), publishing editor MARLEY ASHFORD ([id number]) on 01/31/2018 3:20:55 PM Referred By: SANTI Confirmed By:AMERICO GOMEZ MD 01/31/18 1521 Date Americo Gomez MD CC: Jose Ellis MD; Becky Wharton MD; Nicola Bay MD Signed PARACENTESIS WITH US Observed: 01/27/2018 Status: F Source: [place] 10:12 AM [facility] REPOSITORY [facility] Imaging Services [address] [place] [address] Paracentesis with US MR#: [id number] Acct: [id number] Name: ANITA MCCALLUM Rep #: [id number] : 1945 F 72 From: Eladio Bazan MD PCP: Nicola Bay MD Status: REG CLI Study: Paracentesis with US Date of Exam: 01/27/18 Exam# [id number] Ordering Dr: Abimael Castillo MD PROCEDURE: ULTRASOUND GUIDED PARACENTESIS CLINICAL HISTORY: Female, 72 years old. Ascites. Prior paracenteses. CONSENT: Yes Time-Out Called: Yes. Consent form signed: Yes. PT-PTT Levels Checked: Yes. SEDATION: Local anesthesia with 2% lidocaine. TECHNIQUE: The risks, benefits and alternatives to the procedure were explained to the patient. The specific risks of bleeding, infection and damage to bowel were detailed and accepted. Witnessed written and informed consent was obtained. The abdomen was ultrasonographically surveyed. An appropriate pocket of fluid was identified at the right lower quadrant. The skin were cleaned and prepped in the usual sterile fashion. Using ultrasound guidance, the peritoneal cavity was accessed with a 5-Welsh paracentesis needle/catheter system. The trocar was removed. A total of 3300 ml of harsh-colored fluid were removed from the peritoneal cavity. The catheter was removed and a sterile dressing was applied. The procedure was well tolerated by the patient without immediate complication identified. US/Paracentesis with US IMPRESSION: Successful ultrasound-guided paracentesis. Electronically Signed: Eladio Bazan, at 12:25 EDT Tel , Service support , CC: Nicola Bay MD; Abimael Castillo Dosimetrist: Signed BASIC METABOLIC Collected: 01/26/2018 Status: F Source: [place] PROFILE (BMP) 4:43 PM [facility] REPOSITORY TYPE CODE TESTS RESULT OUT OF RANGE REFERENCE UNITS LAB L501.0100 74-106 mg/dL High GLU 183 Result Comment: Fasting Glucose result greater than or equal to 126 mg/dL suggests DIABETES MELLITUS per A.D.A. criteria. Please note revised GLUCOSE reference range effective 2017. LAB L501.1000 7-18 mg/dL High BUN 73 LAB L501.1100 0.55-1.02 mg/dL High CREAT,SERUM 1.73 Result Comment: The validity of the calculated GFR AND GFRAA in patients over 70 years has not been determined. Clinical correlation is essential. LAB L501.1110 >60 mL/min Low EST GFR 31 Result Comment: Non- GFR Calc LAB L501.1115 >60 mL/min Low EST GFR - AA 37 Result Comment: GFR Calc LAB L501.1300 10-20 RATIO High BUN/CRE 42.2 LAB L501.2200 8.5-10.1 mg/dL CA Normal 9.7 LAB L501.5300 136-145 mmol/L NA Normal 141 LAB L501.5600 3.5-5.1 mmol/L K Normal 4.7 Result Comment: Moderate Hemolysis, Result may be falsely increased. LAB L501.5900 98-107 mmol/L High CL 109 LAB L501.6100 21.0-32.0 mmol/L Normal CO2 23.0 LAB L501.6200 5-15 Normal 9 GAP Performed By: #### L500.2500 #### [facility] [address] [place], [address] K Collected: 01/24/2018 Status: F Source: [facility] 8:49 AM [facility] REPOSITORY TYPE CODE TESTS RESULT OUT OF REFERENCE UNITS RANGE LAB K(LOINC) 3.5-5.1 mmol/L Potassium Level 4.6 Performed By: #### K #### [facility] [address] [place] [address] DISCHARGE SUMMARY Observed: 01/23/2018 Status: F Source: [place] 5:08 PM [facility] REPOSITORY [facility] Medical Records Department [address] [place] [address] Discharge Summary 01/23/18 1055 MR#: [id number] Acct: [id number] Name: ANITA MCCALLUM Rep #: [id number] : 1945 72 From: Becky Wharton MD PCP: Nicola Bay MD Status: DIS IN Y [facility] Discharge Date and Diagnosis Date of Admission: 01/22/18 Date of Discharge: 01/23/18 - Primary Discharge Diagnosis Active and Suspected Problems Hyperkalemia (Acute) Acute kidney injury superimposed on chronic kidney disease (Acute) Hyperkalemia (Acute) - Secondary Discharge Diagnosis Chronic Problems Venous insufficiency (chronic) (peripheral) (Chronic) History of breast cancer (Chronic) Swelling of lower extremity (Chronic) Dependent edema (Chronic) Chronic kidney disease (CKD) (Chronic) Protein malnutrition (Chronic) CKD (chronic kidney disease) stage 4, GFR 15-29 ml/min (Chronic) Breast CA (Chronic) TIA (transient ischemic attack) (Chronic) DM2 (diabetes mellitus, type 2) (Chronic) Bilateral leg edema (Chronic) 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 She was admitted on 01/22/18 with a potassium of 6.2. She saw her family doctor in his office one day prior to admission and had screening lab work which showed potassium of 6.1. She was called at home and told to come to the hospital for another lab test. She came into the hospital on day of presentation for the lab test and repeat labs showed potassium of 6.2. She was therefore brought to the ED. She denies any history of kidney disease but states that she was told her kidneys are sluggish. She has therapeutic paracentesis done every week and the last one done was 2 days prior to admission by interventional radiology and she states 5.5 L of ascitic fluid was taken out. She did not receive any albumin as she has been told that she needs to have about 8 L taken out before she can be given albumin. She denies any nausea vomiting or recent diarrhea and has been eating and drinking well. EKG in the ED showed normal sinus rhythm with no evidence of hyperkalemic changes. Vitals done in the ED showed a temperature of 98.5 Fahrenheit, blood pressure 151/63, respiratory rate of 16 and she was saturating at 98% on room air. Pulse rate was 90. She was admitted to be managed for hyperkalemia and COURTNEY on CKD. BMP showed potassium was 6.2, creatinine of 2.33, sodium of 142 and bicarb of 26. CBC was significant for hemoglobin of 10 and platelets of 69. She has been admitted to be managed for hyperkalemia and COURTNEY on CKD. AKA was thought to be likely due to hypotension that may have occurred after she had 5.5 L of fluid taken out during paracentesis and not receiving any albumin. She received potassium depleting cocktail in the ED. Baseline creatinine was around 1.4. She received Kayexalate and 1L of IVF NS @ 75//hr. Nephrology was consulted. potassiums slowly went down to 4.7 x 8 518. Patient was stable and had no complaints. Discussed with nephrology. Patient's medications were adjusted as follows: -Losartan and metformin were stopped. -Patient was to hold her oral furosemide 40 mg daily dose for 2 days. She was to check a BMP on 01/25/2018 was given a lab request for that. Lab was be sent to her primary care doctor. She is then to resume taking her Lasix on 01/26/2018 1 primary care doctor reviewed her labs and give her the go ahead to do so. She was also counseled about taking a low potassium diet. She was counseled about food such as bananas, green leafy vegetables and orange juice to contain high potassium and was given a printout of materials to educate him about hyperkalemia. She was also to be referred to nutrition as per preferred to follow-up with a project development engineer that she has seen in [place] before. She is to call the project development engineer office for an appointment. Patient is to follow-up with her mounter sousaphones Dr. Castillo in [place] [facility] she has scheduled EGD with him tomorrow 01/24/18. Recommendation is for patient to receive albumin after paracentesis, and per nephrology, would be advisable that patient does not have more than 4 L of fluid taken out her paracentesis session. Seen and examined prior to discharge. She had no complaints. She denied any fever or chills, any cough or chest pain, shortness of breath, abdominal pain, any diarrhea vomiting. Review of systems was otherwise negative. Vital Signs Height 5 ft 2 in Weight: 171 lb 11.841 oz Weight in Pounds 171.7 lbs Pulse Ox 97 General: Alert, Oriented x3, Cooperative, No apparent distress HEENT: PERRLA, EOMI, Normocephalic, - - left conjuctival erythema, no pain with movement of eyeball, no discharge visualised Oral: Moist Mucosa Neck: Supple, No JVD, Negative Carotid Bruits, No Nodes Lungs: Clear to auscultation, Normal air movement Cardiovascular: Regular rate, Regular Rhythm, Normal S1, Normal S2, No murmurs Abdomen: Bowel Sounds Present, Soft, Non Tender, - - distended abdomen, with postive fluid thrill Extremities: No clubbing, No cyanosis, Capillary Refill Less than 3 Seconds, - - mild 1+ bipedal pitting pedal edema Skin: No rashes, No breakdown Musculoskeletal: No Tenderness to Palpation of Joints or Extremities Lymphatic: No Cervical, Supraclavicular, or Inguinal Adenopathy Neurological: Cranial nerves II-XII grossly intact, Motor Exam 5/5 strength throughout Psych/Mental Status: Normal Affect, Appropriate, Alert and oriented to time, place, person, mood and affect Comment: right mastectomy scar Plan as stated above. She is follow-up with her primary care doctor in a couple of days, indefinitely before her next paracentesis session. Discharge Diet: - - RENAL DIET, WITH LOW POTASSIUM FOODS Discharge Activity: Return to Normal Activity Weight Bearing Status: Weight bearing as tolerated Call your doctor if you observe: Shortness of breath, Swelling in the ankles Home Medications: Medications to take at Discharge Atenolol [Tenormin (beta geraldine)] 100 mg PO DAILY 08/08/13 Insulin Lispro [Humalog KwikPen] See Protocol SQ TID 04/15/17 Amlodipine Besylate [Norvasc] 5 mg PO DAILY 07/20/17 Furosemide [Lasix] 40 mg PO QODAY 01/22/18 Primary Care Physician: Nicola Bay MD [Primary Care Provider] - Please follow up with your Primary Care Physician in: WITHIN ONE WEEK, BEFORE YOU HAVE YOUR NEXT PARACENTESIS Patient Instructions: Potassium, Discharge Instructions for Hyperkalemia, Discharge Instructions: Eating a Low Potassium Diet, ED Potassium Excess Additional Instructions: TO HAVE REPEAT BMP ON 01/25/18 TO FOLLOW UP POTASSIUM LEVELS. TO STOP LOSARTAN AND METFORMIN TO HOLD FUROSEMIDE FOR 2 DAYS, AND RESUME ON 01/26/18 IF BMP RESULTS ARE WNL Disposition: Home Minutes spent on discharge:: 40 Patient Condition:: Stable Medical Necessity - Tobacco Use Smoking Status: Never smoker Tobacco Use: Non-smoker Meaningful Use Info Meaningful Use Diagnoses (Choose all that apply): None applicable Code Visit Inpatient E DIDIER M: [id number] Disch Hosp 01/23/18 1708 <Electronically signed by Becky Wharton MD> Date Becky Wharton MD Cosigner Signature (if applicable): Date CC: Becky Wharton MD; Nicola Bay MD Signed DISCHARGE INSTRUCTION Observed: 01/23/2018 Status: F Source: [place]JI 10:54 AM [facility] REPOSITORY [facility] Medical Records Department [address] [place] [address] Instructions for Home/Discharge Instructions 01/23/18 1043 MR#: [id number] Acct: [id number] Name: NAITA MCCALLUM Rep #: [id number] : 1945 72 From: Becky Wharton MD PCP: Nicola Bay MD Status: ADM IN - Discharge Diagnoses Current Active Problems: Current Active and Chronic Problems Hyperkalemia (Acute) Acute kidney injury superimposed on chronic kidney disease (Acute) Hyperkalemia (Acute) Reason(s) for Visit for Discharge Instructions: hyperkalemia You will use the following diet at home:: Renal (restricted protein/sodium) - low potassium diet Your food should be the consistency of: Regular Your liquids should be the consistency of: Regular/Thin Discharge Activity: Return to Normal Activity Weight Bearing Status: Weight bearing as tolerated Call your doctor if you observe: Shortness of breath, Swelling in the ankles Instructions: Potassium, Discharge Instructions: Eating a Low Potassium Diet, Discharge Instructions for Hyperkalemia, ED Potassium Excess Additional Instructions: FOLLOW UP WITH ELECTRIC PILE DRIVER OPERATOR IN [place] IN ONE WEEK TO EDUCATE ABOUT LOW POTASSIUM DIET. DO NOT TAKE PO FUROSEMIDE FOR THE NEXT 2 DAYS, RESUME TAKING ON 01/26/18. STOP TAKING LOSARTAN AND METFORMIN O/A OF ACUTE KIDNEY INJURY AND HYPERKALEMIA Allergies/Adverse Reactions: Allergies clarithromycin [From Biaxin] Allergy (Verified 01/22/18 10:47) Unknown iodine Allergy (Verified 01/22/18 10:47) Unknown Medications to take at Discharge Atenolol [Tenormin (beta geraldine)] 100 mg PO DAILY 08/08/13 Insulin Lispro [Humalog KwikPen] See Protocol SQ TID 04/15/17 Amlodipine Besylate [Norvasc] 5 mg PO DAILY 07/20/17 Furosemide [Lasix] 40 mg PO QODAY 01/22/18 Orders to be completed after discharge: Basic Metabolic Profile (BMP) Time Frame: 01/25/18, Location: Laboratory Primary Care Physician: Nicola Bay MD [Primary Care Provider] - Please follow up with your Primary Care Physician in: WITHIN ONE WEEK, BEFORE YOU HAVE YOUR NEXT PARACENTESIS Test Results: Test results from this visit will be discussed in further detail at your follow-up appointment, if applicable. Proposed Discharge Date: 01/23/18 01/23/18 1054 <Electronically signed by Becky Wharton MD> Date Becky Wharton MD CC: Alesia Hercules MD; Nicola Bay MD BEDSIDE GLUCOSE Collected: 01/23/2018 Status: F Source: [place] 6:53 AM [facility] REPOSITORY TYPE CODE TESTS RESULT OUT OF REFERENCE UNITS RANGE LAB L501.080 70-110 mg/dL High BEDSIDE GLU 162 Result Comment: MANAGEMENT OF PATIENT CARE PER NURSING PROTOCOL Performed By: #### L501.080 #### [facility] Point of Care [facility] [place] [address] BASIC METABOLIC Collected: 01/23/2018 Status: F Source: [place] PROFILE (BMP) 5:55 AM [facility] REPOSITORY TYPE CODE TESTS RESULT OUT OF RANGE REFERENCE UNITS LAB L501.0100 74-106 mg/dL High GLU 154 Result Comment: Fasting Glucose result greater than or equal to 126 mg/dL suggests DIABETES MELLITUS per A.D.A. criteria. Please note revised GLUCOSE reference range effective 2017. LAB L501.1000 7-18 mg/dL High BUN 69 LAB L501.1100 0.55-1.02 mg/dL High CREAT,SERUM 1.79 Result Comment: The validity of the calculated GFR AND GFRAA in patients over 70 years has not been determined. Clinical correlation is essential. LAB L501.1110 >60 mL/min Low EST GFR 30 Result Comment: Non- GFR Calc LAB L501.1115 >60 mL/min Low EST GFR - AA 36 Result Comment: GFR Calc LAB L501.1255 ml/min Normal Estimated CRCL 22.80 LAB L501.1300 10-20 RATIO High BUN/CRE 38.5 LAB L501.2200 8.5-10 mg/dL Normal .1 CA 9.6 LAB L501.5300 136-14 mmol/L High 5 NA 146 LAB L501.5600 3.5-5. mmol/L Normal 1 K 4.7 LAB L501.5900 98-107 mmol/L High CL 115 LAB L501.6100 21.0-3 mmol/L Normal 2.0 CO2 25.0 LAB L501.6200 5-15 Normal GAP 6 Performed By: #### L500.2500 #### [facility] [address] [place], [place], [id number] CBC W/DIFF, AUTOMATED Collected: 01/23/2018 Status: F Source: [place] 5:55 AM [facility] REPOSITORY TYPE CODE TESTS RESULT OUT OF RANGE REFERENCE UNITS LAB L100.1000 4.4-11.0 K/mm3 Low WBC 2.0 LAB L100.1200 4.2-5.4 M/mm3 Low RBC 2.70 LAB L100.1300 12.0-15.0 g/dl Low HGB 8.6 LAB L100.1400 37-47 % Low HCT 26.4 LAB L100.1500 81-99 fL Normal MCV 97.8 LAB L100.1600 27.0-32.0 pg Normal MCH 31.9 LAB L100.1700 32-36 g/gl Normal MCHC 32.6 LAB L100.1810 11.6-14.6 % High RDW CV 14.9 LAB L100.1820 35.1-43.9 fl High RDW SD 50.8 LAB L100.1900 150-450 K/mm3 Low PLT 57 LAB L100.2000 6.2-12.0 fl Normal MPV 10.3 LAB L100.2100 47-70 % Normal NEUT% 66.5 LAB L100.2200 19-41 % Normal LY% 19.7 LAB L100.2300 0-10 % Normal MONO% 6.4 LAB L100.2400 0-5 % High EO% 6.9 LAB L100.2500 0-1 % Normal BASO% 0.5 LAB L100.2550 0.0-0.9 % Normal IM GRAN % 0.000 Result Comment: IG% - Immature Granulocytes (promyelocytes, myelocytes and metamyelocytes) > 1% indicates that a LEFT SHIFT is Present. LAB L100.2620 2.0-7.7 X10 3/uL Low Absolute Neut 1.4 LAB L100.2720 0.83-4.51 X10 3/ul Low Absolute Lymph 0.40 LAB L100.4500 Normal SMEAR COMMENT SCANNED Performed By: #### L100.0100 #### [facility] [address] [place], [address] BEDSIDE GLUCOSE Collected: 01/22/2018 Status: F Source: [place] 9:59 PM [facility] REPOSITORY TYPE CODE TESTS RESULT OUT OF REFERENCE UNITS RANGE LAB L501.080 70-110 mg/dL High BEDSIDE GLU 247 Result Comment: MANAGEMENT OF PATIENT CARE PER NURSING PROTOCOL Performed By: #### L501.080 #### [facility] Point of Care [address] [place] [address] CONSULTATION Observed: 01/22/2018 Status: F Source: [place] 6:58 PM [facility] REPOSITORY [facility] Medical Records Department [address] [place] [address] Consultation 01/22/18 1844 MR#: [id number] Acct: [id number] Name: ANITA MCCALLUM Rep #: [id number] : 1945 72 From: Alesia Hercules MD PCP: Nicola Bay MD Status: ADM IN Y Location: [place] [address] Problem List (1) Acute kidney injury superimposed on chronic kidney disease Status: Acute (2) Hyperkalemia Status: Acute Consultation - Renal PCP/ Referring MD: Requesting physician: [] Primary care physician: Nicola Bay - History of Present Illness History of Present Illness: The patient is a 72 year old F PMH of 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 Last one was 2 days ago of 5.5 L without albumin Patient presented with worsening kidney function and hyperkalemia of 6.1. Patient also was taking losartan 50 mg PO daily and lasix 40 mg PO every other day Patient was given 2 doses of kayexalate 15 g and started on IVF 75 cc.hour NS. Patient said she had 4 BM so far today The repeated K level is 5.9 and Cr is trending down No NSAIDs use. No UTI like symptoms ROS: 12 systems review is negative [] - Allergies Allergies: Allergies clarithromycin [From Biaxin] Allergy (Verified 01/22/18 10:47) Unknown iodine Allergy (Verified 01/22/18 10:47) Unknown - Current Medications Current Medications: Current Medications Amlodipine Besylate (Norvasc) 5 mg PO DAILY KISHOR Atenolol (Tenormin (Beta Geraldine)) 100 mg PO DAILY [facility] Dextrose (D50w Syringe) 0 gm IV X1 PRN; Protocol PRN Reason: Hypoglycemia Glucagon () 1 mg IM .X1 PRN PRN Reason: Hypoglycemia Sodium Chloride () 1,000 mls @ 75 mls/hr IV .[id number] [facility] Last Admin: 01/22/18 13:47 Dose: 75 mls/hr Insulin Human Lispro (Humalog Kwikpen (Bkc)) 0 unit SQ ACHS KISHOR PRN Reason: Protocol Last Admin: 01/22/18 16:42 Dose: 4 u Magnesium Hydroxide (Milk Of Magnesia) 30 ml PO DAILY PRN PRN PRN Reason: Constipation - Past Medical History Past Medical History (Chronic Problems): Chronic Problems Venous insufficiency (chronic) (peripheral) (Chronic) History of breast cancer (Chronic) Swelling of lower extremity (Chronic) Dependent edema (Chronic) Chronic kidney disease (CKD) (Chronic) Protein malnutrition (Chronic) CKD (chronic kidney disease) stage 4, GFR 15-29 ml/min (Chronic) Breast CA (Chronic) TIA (transient ischemic attack) (Chronic) DM2 (diabetes mellitus, type 2) (Chronic) Bilateral leg edema (Chronic) 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 She is a Ab0. - Social History Smoking Status: Never smoker Alcohol: None - Family History Sibling History Items: Cancer - Brother is from cancer that started in his leg, - - The patient's father at age of 85 with a history of congestive heart failure. The patient's mother at the age of 85 due to septic shock from urinary tract infection. Patient Problems: Active and Suspected Problems Hyperkalemia (Acute) Acute kidney injury superimposed on chronic kidney disease (Acute) Hyperkalemia (Acute) - Physical Exam General: Alert, Oriented x3 HEENT: Atraumatic Oral: Moist Mucosa Neck: Supple, No JVD Lungs: Clear to auscultation, Normal air movement, No rhonchi, No wheeze, No rales Cardiovascular: Regular rate, Regular Rhythm, Normal S1, Normal S2 Abdomen: Bowel Sounds Present, Soft, Non Tender Extremities: - - trace edema of LE Skin: No rashes Musculoskeletal: No Tenderness to Palpation of Joints or Extremities Lymphatic: No Cervical, Supraclavicular, or Inguinal Adenopathy Neurological: Cranial nerves II-XII grossly intact, Neuro grossly intact Psych/Mental Status: Normal Affect Vital Signs Temp Pulse Resp BP Pulse Ox 98.4 F 89 16 127/65 H 97 01/22/18 17:12 01/22/18 17:12 01/22/18 17:12 01/22/18 17:12 01/22/18 17:12 Oxygen Delivery Method Room Air Intake and Output for Last 24 Hours Intake Total 541 / 541 Output Total 200 / 200 Balance 341 / 341 Laboratory Tests Past 24 Hrs Sodium Potassium Chloride Carbon Dioxide Anion Gap BUN Sodium 145 Potassium 5.9 H POC Glucose POC Glucose 282 H Assessment/Plan All Active Problems Non-pressure chronic ulcer of other part of left lower leg limited to breakdown of skin (Resolved) Chronic ulcer of leg with fat layer exposed (Resolved) Blister of left leg without infection (Resolved) Non-pressure chronic ulcer of other part of left lower leg with fat layer exposed (Resolved) Ascites (Acute) Abdominal distension (Acute) Hyperkalemia (Acute) Acute kidney injury superimposed on chronic kidney disease (Acute) Hyperkalemia (Acute) Pancytopenia (Acute) Hypercalcemia (Acute) Non-pressure chronic ulcer of other part of right lower leg with fat layer exposed (Resolved) 1- COURTNEY on CKD. Baseline Cr seems around 1.2 mg/dL UA is benign COURTNEY is most probably from hemodynamic instability associated with large paracentesis along with prerenal from dehydration and ACEI Cr peaked at 2.3 mg/dL. Cr is trending down I agree with stopping losartan and lasix Continue IVF 75 cc/hour till morning then stop Keep MAP >65 Avoid large paracentesis and always give albumin with paracentesis Avoid IV contrast No need of FORCE VARIATION EQUIPMENT TENDER Check renal chem in am 2- Hyperkalemia: due to COURTNEY and ACEI Improving with kayexalate Continue holding losartan 3- HTN: BP is well controlled Continue to hold ARB for COURTNEY Please d/c losartan at discharge since the patient is at risk from paracentesis 4- GUEVARA with ascites. Last paracentesis 2 days ago Stop IV tomorrow am Thank you for the consult Renal team will continue to follow ALESIA HERCULES MD 01/22/18 7684 <Electronically signed by Alesia Hercules MD> Date Alesia Hercules MD Cosigner Signature (if applicable): Date CC: Alesia Hercules MD; Nicola Bay MD Signed HISTORY AND PHYSICAL Observed: 01/22/2018 Status: F Source: REJI EXAM 4:42 PM [facility] REPOSITORY [facility] Medical Records Department [address] [place] [address] History and Physical 01/22/18 1153 MR#: [id number] Acct: [id number] Name: ANITA MCCALLUM Rep #: [id number] : 1945 72 From: Becky Wharton MD PCP: Nicola Bay MD Status: ADM IN Location: [place] [address] Problem List (1) Hyperkalemia Status: Acute History of Present Illness Date of Admission: 01/22/18 Chief Complaint: hyperkalemia The patient is a 72 year old F with a history of cirrhosis due to nonalcoholic steatohepatitis, hypertension, diabetes. She was admitted this morning with a potassium of 6.2. She saw her family doctor in his office yesterday and had screening lab work which showed potassium of 6.1. She was called at home and told to come to the hospital for another lab test. She came into the hospital this morning for the lab test and repeat labs showed potassium of 6.2. She was therefore brought to the ED. She denies any history of kidney disease but states that she was told her kidneys are sluggish. She has therapeutic paracentesis done every week and the last one done was 2 days ago and her mounter [facility] office and she states 5.5 L of ascitic fluid was taken out. She did receive any albumin as she has been told that she needs to have about 8 L taken out before she can be given albumin. She denies any nausea vomiting or recent diarrhea and has been eating and drinking well. She did have any chest pain, dizziness or palpitations no lightheadedness. EKG in the ED showed normal sinus rhythm with no evidence of hyperkalemic changes. Vitals done in the ED showed a temperature of 98.5 Fahrenheit, blood pressure 151/63, respiratory rate of 16 and she was saturating at 98% on room air. Pulse rate was 90. She has been admitted to be managed for hyperkalemia. BMP showed potassium was 6.2, creatinine of 2.33, sodium of 142 and bicarb of 26. CBC was significant for hemoglobin of 10 and platelets of 69. She has been admitted to be managed for hyperkalemia and COURTNEY on CKD. She received potassium depleting cocktail in the ED. 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 She is a Ab0. Lives: Alone Smoking Status: Never smoker Tobacco Use: Non-smoker Alcohol: None - *Family History Sibling History Items: Cancer - Brother is from cancer that started in his leg, - - The patient's father at age of 85 with a history of congestive heart failure. The patient's mother at the age of 85 due to septic shock from urinary tract infection. Review of Systems Constitutional: Denies: Chills, Fever, Weight Change Eyes: Reports: Redness. Denies: Blurred vision HEENT: Denies: Head Aches, Sinus Congestion, Sinus Drainage Cardiovascular: Denies: Chest Pain, Chest Pressure, Chest Tightness, Edema, Orthopnea, Palpitations, Paroxysmal Noc. Dyspnea, Syncope Respiratory: Denies: Cough, Shortness of breath at rest, Sputum production Gastrointestinal: Denies: Abdominal Pain, Diarrhea, Dyspepsia, Nausea, Vomiting Genitourinary: Denies: Dysuria Musculoskeletal: Denies: Joint Pain, Joint Tenderness Skin: Denies: Rash, Wounds Neurological: Denies: Numbness, Tingling, Focal weakness Psychiatric: Denies: Anxiety, Depression, Homicidal Ideations, Suicidal Ideations Hematologic/ Lymphatic: Denies: Easy Bruising, Easy Bleeding VTE Information - Inpt Only VTE Present on Admission: No VTE Mechan Device Prophylaxis: SCD's VTE Pharm Prophylaxis ordered?: No Reason prophylaxis not ordered:: Medical Contraindication - Thrombocytopenia Patient Problems: Active and Suspected Problems Hyperkalemia (Acute) - Physical Exam General: Alert, Oriented x3, Cooperative, No apparent distress HEENT: PERRLA, EOMI, Normocephalic, - - conjuctival erythema, no pain with movement of eyeball, no discharge visualised Oral: Moist Mucosa Neck: Supple, No JVD, Negative Carotid Bruits, No Nodes Lungs: Clear to auscultation, Normal air movement Cardiovascular: Regular rate, Regular Rhythm, Normal S1, Normal S2, No murmurs Abdomen: Bowel Sounds Present, Soft, Non Tender, - - distended abdomen, with postive fluid thrill Extremities: No clubbing, No cyanosis, Capillary Refill Less than 3 Seconds, - - mild 1+ bipedal pitting pedal edema Skin: No rashes, No breakdown Musculoskeletal: No Tenderness to Palpation of Joints or Extremities Lymphatic: No Cervical, Supraclavicular, or Inguinal Adenopathy Neurological: Cranial nerves II-XII grossly intact, Motor Exam 5/5 strength throughout Psych/Mental Status: Normal Affect, Appropriate, Alert and oriented to time, place, person, mood and affect Comment: right mastectomy scar Vital Signs Temp Pulse Resp BP Pulse Ox 98.5 F 79 17 151/63 H 97 01/22/18 10:46 01/22/18 11:07 01/22/18 11:07 01/22/18 10:46 01/22/18 11:07 Oxygen Delivery Method Room Air Weight: 166 lb 3.657 oz Body Mass Index (BMI) 30.4 Laboratory Tests Past 24 Hrs WBC 3.4 L RBC 3.18 L Hgb 10.0 L Assessment/Plan All Active Problems Non-pressure chronic ulcer of other part of left lower leg limited to breakdown of skin (Resolved) Chronic ulcer of leg with fat layer exposed (Resolved) Blister of left leg without infection (Resolved) Non-pressure chronic ulcer of other part of left lower leg with fat layer exposed (Resolved) Ascites (Acute) Abdominal distension (Acute) Hyperkalemia (Acute) Pancytopenia (Acute) Hypercalcemia (Acute) Non-pressure chronic ulcer of other part of right lower leg with fat layer exposed (Resolved) 72-year-old female with past medical history of nonalcoholic severe hepatitis with ascites, having weekly therapeutic paracentesis, hypertension, hyperlipidemia and diabetes. He was admitted after incidental lab finding of hyperkalemia 1.Hyperkalemia likely due to COURTNEY * K was 6.1 yesterday, 6.2 on repeat today * EKG showed NSR * received potassium depleting cocktail in the ED * will start kayexalate 30mg and monitor potassium * 2. COURTNEY on CKD * Cr was 2.33 today; was 2.44 when checked yesterday * baseline is 1.3-1.4 * BP was in 90s systolic at time of review. She says her BP usually runs in 120s systolic; Cannot say what her BP was after paracentesis on * it is possible that she may have had asymptomatic hypotension after paracentesis, resulting in hypoperfusion to the kidneys * I cannot rule out Hepatorenal syndrome (likely type 2) completely also * Very gentle hydration with IV fluids normal saline. Due to patient's ascites and liver disease, I am quite reticent about giving IVF. * Will give IV fluids normal saline for total of 1 L and check kidney function; will consider giving albumin for plasma expansion after discussion with nephrology * will consult nephrology. * will hold lasix and ANGEL-I. * FeuRea was 34.3%, indicating pre-renal kidney disease * urinalysis showed urine protein of 15; otherwise grossly unremarkable * urgent kidney USG only showed nonobstructing bilateral renal calculi, with the largest measuring up to 5mm; no hydronephrosis * FeUrea was 34.3%, urine sodium was 32. * Decision to transfer patient to [facility] on account of lack of Kayexalate in the hospital aborted as pharmacy managed to get some doses of Kayexalate for patient. 3. Diabetes mellitus type 2 * will hold metformin o/a of COURTNEY * ISS. Accuchecks ACHS * 4. HTN: lasix and ANGEL-I on hold o/a of COURTNEY 5. GUEVARA with cirrhosis * has regular therapeutic paracentesis; last being 2 days ago with removal of 5.5 L of IV fluid. * currently stable. * on lasix, which is on hold * 6. Thrombocytopenia: Platelets of 69. This likely due to liver disease. Will monitor. 7. DVT prophylaxis: SCDs. No anti-correlation on account of thrombocytopenia 8. GI prophylaxis: famotidine Code status: Full code. Different types of CODE STATUS explained to patient and her 2 nieces, the different meanings and interpretation. I counseled patient about difference between DNR CCA, DNR CC and full code. Patient got quite emotional during this discussion. Patient elects to be full code; stated that she does not want to be kept alive on machines for long if she is going to become a vegetable, and would want her code status changed by her POA then. States she has a living will but will have a copy in our documentation on file. Her niece will be her power of senior analyst. Family counseled to bring a copy of the living w1ll. [id number] time 15 minutes This note was generated with Coinex-IOation software. It may contain incorrect words, spelling, and punctuation that were not noted in checking the note before signing. * Code Visit Inpatient E AND M: 55147 Subs Hosp L3 Procedures: 33499 Advncd Care Plan 30 Min 01/22/18 1642 <Electronically signed by Becky Wharton MD> Date Becky Wharton MD Cosigner Signature: Date (if applicable) CC: Becky Wharton MD; Nicola Bay MD Signed BEDSIDE GLUCOSE Collected: 01/22/2018 Status: F Source: REJI 4:37 PM [facility] REPOSITORY TYPE CODE TESTS RESULT OUT OF REFERENCE UNITS RANGE LAB L501.080 70-110 mg/dL High BEDSIDE GLU 282 Result Comment: MANAGEMENT OF PATIENT CARE PER NURSING PROTOCOL Performed By: #### L501.080 #### [facility] Point of Care [address] [place], [place] [address]. [place] [address] BASIC METABOLIC Collected: 01/22/2018 Status: F Source: REJI PROFILE (BMP) 3:18 PM [facility] REPOSITORY TYPE CODE TESTS RESULT OUT OF RANGE REFERENCE UNITS LAB L501.0100 74-106 mg/dL High GLU 291 Result Comment: Glucose result greater than or equal to 200 mg/dL suggests DIABETES MELLITUS per A.D.A. criteria. Please note revised GLUCOSE reference range effective 2017. LAB L501.1000 7-18 mg/dL High BUN 86 LAB L501.1100 0.55-1.02 mg/dL High CREAT,SERUM 2.17 Result Comment: The validity of the calculated GFR AND GFRAA in patients over 70 years has not been determined. Clinical correlation is essential. LAB L501.1110 >60 mL/min Low EST GFR 24 Result Comment: Non- GFR Calc LAB L501.1115 >60 mL/min Low EST GFR - AA 29 Result Comment: GFR Calc LAB L501.1255 ml/min Normal Estimated CRCL 18.81 LAB L501.1300 10-20 RATIO High BUN/CRE 39.6 LAB L501.2200 8.5-10 mg/dL Normal .1 CA 9.9 LAB L501.5300 136-14 mmol/L Normal 5 NA 145 LAB L501.5600 3.5-5. mmol/L High 1 K 5.9 LAB L501.5900 98-107 mmol/L High CL 112 LAB L501.6100 21.0-3 mmol/L Normal 2.0 CO2 25.0 LAB L501.6200 5-15 Normal GAP 8 Performed By: #### L500.2500 #### [facility] [address] [place], [address] URINE SODIUM Collected: 01/22/2018 Status: F Source: [place]OY 2:05 [facility] Order Comment: Order Date: 01/22/18 TYPE CODE TESTS RESULT OUT OF RANGE REFERENCE UNITS LAB L501.5500 Not Establ. mmol/L Normal UR NA 32 Performed By: #### L501.5500 #### [facility] [address] [place], [address] CREATININE, URINE Collected: 01/22/2018 Status: F Source: TROY 2:05 PM [facility] REPOSITORY Order Comment: Order Date: 01/22/18 TYPE CODE TESTS RESULT OUT OF RANGE REFERENCE UNITS LAB L502.0300 NO RANGE EST. mg/dL Normal URINE 60.50 CREAT Performed By: #### L502.0300 #### [facility] [address] [place], [address] UREA NITROGEN, URINE Collected: 01/22/2018 Status: F Source: REJI 2:05 PM [facility] REPOSITORY Order Comment: Order Date: 01/22/18 TYPE CODE TESTS RESULT OUT OF RANGE REFERENCE UNITS LAB L502.0715 NO RANGE EST. mg/dL Normal URINE 810 UREA Performed By: #### L502.0715 #### [facility] [address] [place], [address] URINALYSIS, COMPLETE Collected: 01/22/2018 Status: F Source: TROY 2:05 PM [facility] REPOSITORY Order Comment: Order Date: 01/22/18 How was Urine Obtained? BLADE BENDER FURNACE TENDER TO SPECIFY TYPE CODE TESTS RESULT OUT OF RANGE REFERENCE UNITS LAB L400.3000 Yellow COLOR Normal Yellow LAB L400.3050 Clear Normal CLARITY Clear LAB L400.3200 Normal mg/dl High GLUCOSE, UR 250 LAB L400.3300 Negative mg/dL Normal BILIRUBIN URINE Negative LAB L400.3400 Negative mg/dl Normal KETONE UR Negative LAB L400.3465 1.002-1.030 Normal SP.GR. DIPSTX 1.015 LAB L400.3550 5.0 - 8.0 pH UR Normal 5.0 LAB L400.3600 Negative mg/dl High PROT 15 DIPSTX LAB L400.3700 Normal mg/dl Normal UROBILI Normal LAB L400.3750 Negative Normal NITRITE UR Negative LAB L400.3780 Negative /ul Normal OCCULT BLOOD-UR Negative LAB L400.3800 Negative /ul High LEUK 25 ESTERASE LAB L400.4050 0-5 /hpf WBC Normal 0-5 SEEN LAB L400.4100 0-5 /hpf 0 Normal RBC-UA SEEN LAB L400.4150 5-10 /hpf SQUAM 0 Normal EPI SEEN LAB L400.4300 None Seen /hpf 0 Normal BACTERIA SEEN LAB L400.4350 <or=2+ /hpf 0 Normal MUCUS, URINE SEEN LAB L400.4400 0-5 /lpf Normal HYALINE CAST 0-5 SEEN Performed By: #### L400.0001 #### [facility] [address] [place], [place], [address] KIDNEY AND BLADDER Observed: 01/22/2018 Status: F Source: TROY 12:52 PM [facility] REPOSITORY [facility] Imaging Services [address] [place] [address] Kidney and Bladder MR#: [id number] Acct: [id number] Name: ANITA MCCALLUM Rep #: [id number] : 1945 F 72 From: Candice Patel MD PCP: Nicola Bay MD Status: ADM IN Study: Kidney and Bladder Date of Exam: 01/22/18 Exam# [id number] Ordering Dr: Becky Wharton MD STUDY: RENAL ULTRASOUND - COMPLETE REASON FOR EXAM: Female, 72 years old. Increased potassium. TECHNIQUE: Ultrasound evaluation of the kidneys was performed with real-time and static barbosa-scale imaging. COMPARISON: None. FINDINGS: RIGHT KIDNEY: Normal location of the right kidney, which is normal in size. The right kidney measures 9.0 cm in length. There is a normal cortex of the right kidney. The renal cortex measures 1.3 cm. There is no right renal mass or cyst. There are renal calculi the largest measuring up to 5 mm. There is no right hydronephrosis. DISTAL RIGHT URETER: There is no demonstrated right ureteral jet. LEFT KIDNEY: Normal location of the left kidney, which is normal in size. The left kidney measures 10.0 cm in length. There is a normal cortex of the left kidney. The renal cortex measures 1.3 cm. There is no left renal mass or cyst. There are renal calculi the largest measuring up to 5 mm. There is no left hydronephrosis. DISTAL LEFT URETER: There is no demonstrated left ureteral jet. BLADDER: The distended urinary bladder has a volume of 149.5 ml. The empty urinary bladder has a volume of 48.1 ml. There is a normal wall thickness of the distended urinary bladder. There is no demonstrated mass within the urinary bladder. There are no demonstrated bladder calculi. There is free fluid present. US/Kidney and Bladder IMPRESSION: No hydronephrosis identified. Bilateral nonobstructing renal calculi the largest measuring up to 5 mm. Ascites. Electronically Signed: Candice Patel MD at 14:19 EDT Tel , Service support , CC: Becky Wharton MD; Nicola Bay MD Dosimetrist: Signed EMERGENCY DEPARTMENT Observed: 01/22/2018 Status: F Source: TROY SUMMARY 11:52 AM [facility] REPOSITORY [facility] Medical Records Department [address] [place] [address] Emergency Department Summary 01/22/18 1102 MR#: [id number] Acct: [id number] Name: ANITA MCCALLUM Rep #: [id number] : 1945 72 From: Jose Ellis MD PCP: Nicola Bay MD Status: REG ER - ER Visit Summary Date of Service: 01/22/18 Chief Complaint: High potassium History of Present Illness: The patient is a 72 F who had screening lab work yesterday and showed a potassium of 6.1. Patient has no history of this in the past. She returned this morning and had a potassium of 6.2. She states that she is sluggish kidneys but no other history of kidney disease. She is on Lasix every other day. She has had diarrhea occasionally but nothing constant. She has been eating and drinking well. She has a history of fatty liver disease and has weekly paracentesis. Her last one was 2 days ago. Physical Examination: Vital signs reviewed. HEENT exam unremarkable. Heart is regular rate and rhythm without murmurs. Lungs are clear to auscultation. Abdomen is soft and nontender. Extremities reveal no edema. Skin exam normal. Neurologic exam normal. Test Results: EKG sinus rhythm. There is a peaked T-wave in V2. Hemoglobin 10. Potassium 6.2, chloride 111. BUN 91 and creatinine 2.33 Emergency Department Course and Treatment: Patient was hydrated with saline. She was given insulin, glucose and sodium bicarb. She was also given calcium. The patient's creatinine is increasing. She was 1.3-1.4 in October. She is now up to 2.3- 2.4. I believe that due to this she should be admitted to the hospital. Patient was discussed with the hospitalist Treatment Plan: [] Disposition: Admit Impression: Hyperkalemia, acute kidney injury This note was generated with [employer] dictation software. It may contain incorrect words, spelling, and punctuation that were not noted in review of the chart prior to signing ED Disposition - Plan for ED Patient: Chief Complaint: Abn Labs Referrals: Nicola Bay MD [Primary Care Provider] - What to do if you have Problems For any increased pain, shortness of breath, bleeding, nausea or vomiting, chest pain, or any unexpected problems, contact your Primary Care Provider. Call [facility] ([phone]) or report to the closest Emergency Room. Call 911 if necessary. 01/22/18 1152 <Electronically signed by Jose Ellis MD> Date Jose Ellis MD Cosigner Signature (If Indicated): Date CC: Nicola Bay MD CBC W/DIFF, AUTOMATED Collected: 01/22/2018 Status: F Source: REJI 11:07 AM [facility] REPOSITORY TYPE CODE TESTS RESULT OUT OF RANGE REFERENCE UNITS LAB L100.1000 4.4-11.0 K/mm3 Low WBC 3.4 LAB L100.1200 4.2-5.4 M/mm3 Low RBC 3.18 LAB L100.1300 12.0-15.0 g/dl Low HGB 10.0 LAB L100.1400 37-47 % Low HCT 30.2 LAB L100.1500 81-99 fL Normal MCV 95.0 LAB L100.1600 27.0-32.0 pg Normal MCH 31.4 LAB L100.1700 32-36 g/gl Normal MCHC 33.1 LAB L100.1810 11.6-14.6 % High RDW CV 15.0 LAB L100.1820 35.1-43.9 fl High RDW SD 52.0 LAB L100.1900 150-450 K/mm3 Low PLT 69 LAB L100.2000 6.2-12.0 fl Normal MPV 9.4 LAB L100.2100 47-70 % High NEUT% 73.7 LAB L100.2200 19-41 % Low LY% 13.0 LAB L100.2300 0-10 % Normal MONO% 5.3 LAB L100.2400 0-5 % High EO% 7.4 LAB L100.2500 0-1 % Normal BASO% 0.6 LAB L100.2550 0.0-0.9 % Normal IM GRAN % 0.000 Result Comment: IG% - Immature Granulocytes (promyelocytes, myelocytes and metamyelocytes) > 1% indicates that a LEFT SHIFT is Present. LAB L100.2620 2.0-7.7 X10 3/uL Normal Absolute Neut 2.5 LAB L100.2720 0.83-4.51 X10 3/ul Low Absolute Lymph 0.44 LAB L100.4500 Normal SMEAR COMMENT SCANNED Performed By: #### L100.0100 #### [facility] [address] [place], [address] BASIC METABOLIC Collected: 01/22/2018 Status: F Source: [place] PROFILE (BMP) 8:25 AM [facility] REPOSITORY TYPE CODE TESTS RESULT OUT OF RANGE REFERENCE UNITS LAB L501.0100 74-106 mg/dL High GLU 179 Result Comment: Fasting Glucose result greater than or equal to 126 mg/dL suggests DIABETES MELLITUS per A.D.A. criteria. Please note revised GLUCOSE reference range effective 2017. LAB L501.1000 7-18 mg/dL High BUN 91 LAB L501.1100 0.55-1.02 mg/dL High CREAT,SERUM 2.33 Result Comment: The validity of the calculated GFR AND GFRAA in patients over 70 years has not been determined. Clinical correlation is essential. LAB L501.1110 >60 mL/min Low EST GFR 22 Result Comment: Non- GFR Calc LAB L501.1115 >60 mL/min Low EST GFR - AA 27 Result Comment: GFR Calc LAB L501.1300 10-20 RATIO High BUN/CRE 39.1 LAB L501.2200 8.5-10.1 mg/dL CA Normal 9.9 LAB L501.5300 136-145 mmol/L NA Normal 142 LAB L501.5600 3.5-5.1 mmol/L High K alert 6.2 Result Comment: Critical Result(s) Called at: 09:00:38 01/22/2018 by: Kinga Truong to Dr Toth LAB L501.5900 98-107 mmol/L High CL 111 LAB L501.6100 21.0-32.0 mmol/L Normal CO2 26.0 LAB L501.6200 5-15 Normal 5 GAP Performed By: #### L500.2500 #### [facility] [address] [place], [address] CBC W/DIFF, AUTOMATED Collected: 01/21/2018 Status: F Source: TROY 1:59 PM [facility] REPOSITORY TYPE CODE TESTS RESULT OUT OF RANGE REFERENCE UNITS LAB L100.1000 4.4-11.0 K/mm3 Low WBC 3.4 LAB L100.1200 4.2-5.4 M/mm3 Low RBC 3.23 LAB L100.1300 12.0-15.0 g/dl Low HGB 10.0 LAB L100.1400 37-47 % Low HCT 31.4 LAB L100.1500 81-99 fL Normal MCV 97.2 LAB L100.1600 27.0-32.0 pg Normal MCH 31.0 LAB L100.1700 32-36 g/gl Low MCHC 31.8 LAB L100.1810 11.6-14.6 % High RDW CV 14.9 LAB L100.1820 35.1-43.9 fl High RDW SD 50.7 LAB L100.1900 150-450 K/mm3 Low PLT 77 LAB L100.2000 6.2-12.0 fl Normal MPV 10.9 LAB L100.2100 47-70 % Normal NEUT% 69.9 LAB L100.2200 19-41 % Low LY% 15.2 LAB L100.2300 0-10 % Normal MONO% 5.8 LAB L100.2400 0-5 % High EO% 8.5 LAB L100.2500 0-1 % Normal BASO% 0.6 LAB L100.2550 0.0-0.9 % Normal IM GRAN % 0.000 Result Comment: IG% - Immature Granulocytes (promyelocytes, myelocytes and metamyelocytes) > 1% indicates that a LEFT SHIFT is Present. LAB L100.2620 2.0-7.7 X10 3/uL Normal Absolute Neut 2.4 LAB L100.2720 0.83-4.51 X10 3/ul Low Absolute Lymph 0.52 LAB L100.4500 Normal SMEAR COMMENT SCANNED Result Comment: SLIGHT LYMPHOPENIA NOTED Performed By: #### L100.0100 #### [facility] [place] [address], [address] COMPREHENSIVE METABOLIC Collected: 01/21/2018 Status: F Source: REJI [facility] ED 1:59 PM [facility] REPOSITORY TYPE CODE TESTS RESULT OUT OF RANGE REFERENCE UNITS LAB L501.0100 74-106 mg/dL High GLU 156 Result Comment: Fasting Glucose result greater than or equal to 126 mg/dL suggests DIABETES MELLITUS per A.D.A. criteria. Please note revised GLUCOSE reference range effective 2017. LAB L501.1000 7-18 mg/dL High BUN 89 LAB L501.1100 0.55-1.02 mg/dL High CREAT,SERUM 2.44 Result Comment: The validity of the calculated GFR AND GFRAA in patients over 70 years has not been determined. Clinical correlation is essential. LAB L501.1110 >60 mL/min Low EST GFR 21 Result Comment: Non- GFR Calc LAB L501.1115 >60 mL/min Low EST GFR - AA 25 Result Comment: GFR Calc LAB L501.1300 10-20 RATIO High BUN/CRE 36.5 LAB L501.1500 6.4-8.2 g/dL T Normal PROT 6.4 LAB L501.1800 3.2-5.0 g/dL Low ALB 2.7 LAB L501.1950 2.2-4.2 g/dL Normal GLOB 3.7 LAB L501.2000 0.9-2.4 RATIO Low A/G 0.7 LAB L501.2200 8.5-10.1 mg/dL CA Normal 9.9 LAB L501.4100 15-37 U/L High AST 58 Result Comment: Slight Hemolysis, Result may be falsely increased. LAB L501.4305 45-117 U/L High ALK P 145 LAB L501.4405 13-56 U/L High ALT 74 LAB L501.4600 0.20-1.00 mg/dL Normal T BILI 0.30 LAB L501.5300 136-145 mmol/L Normal NA 140 LAB L501.5600 3.5-5.1 mmol/L High alert K 6.1 Result Comment: Slight Hemolysis, Result may be falsely increased. Critical Result(s) Called at: 16:26:21 01/21/2018 by: Chanel grande to Dr. Ashford LAB L501.5900 98-107 mmol/L High CL 109 LAB L501.6100 21.0-32.0 mmol/L Normal CO2 24.0 LAB L501.6200 5-15 Normal 7 GAP Performed By: #### L500.4050 #### [facility] [address] [place], [address] AMMONIA Collected: 01/21/2018 Status: F Source: TROY 1:59 PM [facility] REPOSITORY TYPE CODE TESTS RESULT OUT OF REFERENCE UNITS RANGE LAB L503.5510 11-32 umol/L High AMMONIA 39.0 Performed By: #### L503.5510 #### [facility] [address] [place], [address] PARACENTESIS WITH US Observed: 01/20/2018 Status: F Source: TROY 12:20 PM [facility] REPOSITORY [facility] Services [address] [place] [address] Paracentesis with US MR#: [id number] Acct: [id number] Name: ANITA MCCALLUM Rep #: [id number] : 1945 F 72 From: Rigo Britt MD PCP: Nicola Bay MD Status: REG CLI Study: Paracentesis with US Date of Exam: 01/20/18 Exam# [id number] Ordering Dr: Abimael Castillo MD PROCEDURE: Ultrasound guided paracentesis. DATE OF EXAMINATION: January 20, 2018.. INDICATION: Female, 72 years old. Ascites. PHYSICIAN: Rigo Britt M.D. TECHNIQUE: The risks, benefits, and alternatives to the procedure were explained to the patient. The specific risks of bleeding, infection, and damage to bowel were detailed and accepted. Witnessed informed consent was obtained. The abdomen was ultrasonographically surveyed. An appropriate pocket of fluid was identified at the right lower quadrant. The skin were cleaned and prepped in the usual sterile fashion. Using ultrasound guidance, the peritoneal cavity was accessed with a 5-Welsh paracentesis needle/catheter system. The trocar was removed. A total of 5500 ml of harsh-colored fluid were removed from the peritoneal cavity. The catheter was removed and a sterile dressing was applied. The procedure was well tolerated. US/Paracentesis with US IMPRESSION: Ultrasound guided paracentesis. Electronically Signed: Rigo Britt MD at 13:53 EDT Tel [phone], Service support , CC: Nicola Bay MD; Abimael Castillo Dosimetrist: Signed PROTHROMBIN TIME W/INR Collected: 01/19/2018 Status: F Source: TROY 12:16 PM [facility] REPOSITORY TYPE CODE TESTS RESULT OUT OF RANGE REFERENCE UNITS LAB L300.4150 11.7-14.9 SECONDS Normal PROTIME 13.4 LAB L300.4200 Normal INR 1.0 Performed By: #### L300.3900, L300.4310 #### [facility] [address] [place], [place], [id number] PARTIAL THROMBOPLAST Collected: 01/19/2018 Status: F Source: REJI TIME 12:16 PM [facility] REPOSITORY TYPE CODE TESTS RESULT OUT OF RANGE REFERENCE UNITS LAB L300.4310 24.1-36.2 Seconds Normal PTT 27.9 Performed By: #### L300.3900, L300.4310 #### [facility] [address] [place], [place], [address] PARACENTESIS WITH US Observed: 01/13/2018 Status: F Source: REJI 12:17 PM [facility] Services [address] [place] [address] Paracentesis with US MR#: [id number] Acct: [id number] Name: ANITA MCCALLUM Rep #: [id number] : 1945 F 72 From: Shaheen Alcocer MD PCP: Nicola Bay MD Status: REG CLI Study: Paracentesis with US Date of Exam: 01/13/18 Exam# [id number] Ordering Dr: Abimael Castillo MD PROCEDURE: ULTRASOUND GUIDED PARACENTESIS CLINICAL HISTORY: Female, 72 years old. Diffuse ascites CONSENT: Informed consent obtained Time-Out Called: Yes. Consent form signed: Yes. PT-PTT Levels Checked: Yes. SEDATION: Local TECHNIQUE: Ultrasound guided FINDINGS: FLUID PRE-PROCEDURE There is posterior enhancement. The findings appear anechoic. There is no loculation. FLUID POST-PROCEDURE Amount of fluid drained: 4700 ml. US/Paracentesis with US IMPRESSION: Successful large volume ultrasound-guided paracentesis with removal of approximately 4700 mL of straw-colored serous fluid from the abdomen. Patient tolerated the procedure well with no immediate complications Electronically Signed: Ish Alcocer MD at 14:38 EDT , Service support , CC: Nicola Bay MD; Abimael Castillo Dosimetrist: Signed PARACENTESIS WITH US Observed: 01/06/2018 Status: F Source: REJI 12:14 PM [facility] REPOSITORY [facility] Services [address] [place] [address] Paracentesis with US MR#: [id number] Acct: [id number] Name: ANITA MCCALLUM Rep #: [id number] : 1945 F 72 From: Rigo Britt MD PCP: Nicola Bay MD Status: REG CLI Study: Paracentesis with US Date of Exam: 01/06/18 Exam# [id number] Ordering Dr: Abimael Castillo MD PROCEDURE: Ultrasound guided paracentesis. DATE OF EXAMINATION: January 06, 2018.. INDICATION: Female, 72 years old. Ascites. PHYSICIAN: Rigo Britt M.D. TECHNIQUE: The risks, benefits, and alternatives to the procedure were explained to the patient. The specific risks of bleeding, infection, and damage to bowel were detailed and accepted. Witnessed informed consent was obtained. The abdomen was ultrasonographically surveyed. An appropriate pocket of fluid was identified at the left lower quadrant. The skin were cleaned and prepped in the usual sterile fashion. Using ultrasound guidance, the peritoneal cavity was accessed with a 5-Welsh paracentesis needle/catheter system. The trocar was removed. A total of 4350 ml of harsh-colored fluid. were removed from the peritoneal cavity. The catheter was removed and a sterile dressing was applied. The procedure was well tolerated. US/Paracentesis with US IMPRESSION: Ultrasound guided paracentesis. Electronically Signed: Rigo Britt MD at 14:01 EDT Tel [phone], Service support , CC: Nicola Bay MD; Abimael Castillo Dosimetrist: Signed BASIC METABOLIC Collected: 12/31/2017 Status: F Source: REJI PROFILE (BMP) 2:21 PM [facility] REPOSITORY TYPE CODE TESTS RESULT OUT OF RANGE REFERENCE UNITS LAB L501.0100 74-106 mg/dL High GLU 193 Result Comment: Fasting Glucose result greater than or equal to 126 mg/dL suggests DIABETES MELLITUS per A.D.A. criteria. Please note revised GLUCOSE reference range effective 2017. LAB L501.1000 7-18 mg/dL High BUN 67 LAB L501.1100 0.55-1.02 mg/dL High CREAT,SERUM 1.97 Result Comment: The validity of the calculated GFR AND GFRAA in patients over 70 years has not been determined. Clinical correlation is essential. LAB L501.1110 >60 mL/min Low EST GFR 27 Result Comment: Non- GFR Calc LAB L501.1115 >60 mL/min Low EST GFR - AA 32 Result Comment: GFR Calc LAB L501.1300 10-20 RATIO High BUN/CRE 34.0 LAB L501.2200 8.5-10.1 mg/dL High CA 10.4 LAB L501.5300 136-145 mmol/L NA Normal 143 LAB L501.5600 3.5-5.1 mmol/L High K 5.8 LAB L501.5900 98-107 mmol/L High CL 112 LAB L501.6100 21.0-32.0 mmol/L Normal CO2 24.0 LAB L501.6200 5-15 Normal GAP 7 Performed By: #### L500.2500 #### [facility] [address] [place], [address] PARACENTESIS WITH US Observed: 12/30/2017 Status: F Source: TROY 1:00 PM [facility] REPOSITORY [facility] Services [address] [place] [address] Paracentesis with US MR#: [id number] Acct: [id number] Name: ANITA MCCALLUM Rep #: [id number] : 1945 F 72 From: Rigo Britt MD PCP: Nicola Bay MD Status: REG CLI Study: Paracentesis with US Date of Exam: 12/30/17 Exam# [id number] Ordering Dr: Abimael Castillo MD PROCEDURE: Ultrasound guided paracentesis. DATE OF EXAMINATION: December 30, 2017.. INDICATION: Female, 72 years old. Ascites. PHYSICIAN: Rigo Britt M.D. TECHNIQUE: The risks, benefits, and alternatives to the procedure were explained to the patient. The specific risks of bleeding, infection, and damage to bowel were detailed and accepted. Witnessed informed consent was obtained. The abdomen was ultrasonographically surveyed. An appropriate pocket of fluid was identified at the right lower quadrant. The skin were cleaned and prepped in the usual sterile fashion. Using ultrasound guidance, the peritoneal cavity was accessed with a 5-Welsh paracentesis needle/catheter system. The trocar was removed. A total of 4700 ml of harsh-colored fluid were removed from the peritoneal cavity. The catheter was removed and a sterile dressing was applied. The procedure was well tolerated. US/Paracentesis with US IMPRESSION: Ultrasound guided paracentesis. Electronically Signed: Rigo Britt MD at 15:17 EDT Tel [phone], Service support , CC: Nicola Bay MD; Abimael Castillo Dosimetrist: Signed PARACENTESIS WITH US Observed: 12/23/2017 Status: F Source: TROY 10:19 AM [facility] REPOSITORY [facility] Imaging Services [address] [place] [address] Paracentesis with US MR#: [id number] Acct: [id number] Name: ANITA MCCALLUM Rep #: [id number] : 1945 F 72 From: Rigo Britt MD PCP: Nicola Bay MD Status: REG CLI Study: Paracentesis with US Date of Exam: 12/23/17 Exam# [id number] Ordering Dr: Abimael Castillo MD PROCEDURE: Ultrasound guided paracentesis. DATE OF EXAMINATION: December 23, 2017. INDICATION: Female, 72 years old. Ascites. PHYSICIAN: Rigo Britt M.D. TECHNIQUE: The risks, benefits, and alternatives to the procedure were explained to the patient. The specific risks of bleeding, infection, and damage to bowel were detailed and accepted. Witnessed informed consent was obtained. The abdomen was ultrasonographically surveyed. An appropriate pocket of fluid was identified at the left lower quadrant. The skin were cleaned and prepped in the usual sterile fashion. Using ultrasound guidance, the peritoneal cavity was accessed with a 5-Welsh paracentesis needle/catheter system. The trocar was removed. A total of 6550 ml of harsh-colored fluid were removed from the peritoneal cavity. The catheter was removed and a sterile dressing was applied. The procedure was well tolerated. US/Paracentesis with US IMPRESSION: Ultrasound guided paracentesis. Electronically Signed: Rigo Britt MD at 12:26 EDT Tel [phone], Service support , CC: Nicola Bay MD; Abimael Castillo Dosimetrist: Signed PROTHROMBIN TIME W/INR Collected: 12/20/2017 Status: F Source: TROY 11:46 AM [facility] REPOSITORY TYPE CODE TESTS RESULT OUT OF RANGE REFERENCE UNITS LAB L300.4150 11.7-14.9 SECONDS Normal PROTIME 13.8 LAB L300.4200 Normal INR 1.1 Performed By: #### L300.3900, L300.4310 #### [facility] [address] [place], [address] PARTIAL THROMBOPLAST Collected: 12/20/2017 Status: F Source: TROY TIME 11:46 AM [facility] REPOSITORY TYPE CODE TESTS RESULT OUT OF RANGE REFERENCE UNITS LAB L300.4310 24.1-36.2 Seconds Normal PTT 27.5 Performed By: #### L300.3900, L300.4310 #### [facility] [address] [place], [address] UNILAT LT SCRN Observed: 12/20/2017 Status: F Source: REJI W/CAD 10:43 AM [facility] REPOSITORY [facility] Services [address] [place] [address] UNILAT LT SCRN W/CAD MR#: [id number] Acct: [id number] Name: ANITA MCCALLUM Rep #: [id number] : 1945 F 72 From: Rigo Britt MD PCP: Nicola Bay MD Status: REG CLI Study: UNILAT LT SCRN W/CAD Date of Exam: 12/20/17 Exam# [id number] Ordering Dr: Nicola Bay MD MAMMOGRAPHY - UNILATERAL SCREENING: LEFT BREAST REASON FOR EXAM: Female, 72 years old. Routine annual screening examination (unilateral). PERTINENT HISTORY: Personal history of breast cancer. Prior right mastectomy with chemotherapy. TECHNIQUE: Digital unilateral breast mague (3D mammographic acquisition) in the CC and MLO projections. 2-D mediolateral oblique (MLO) and craniocaudad (CC) views of both breasts were obtained. CAD: Full Field Digital Mammography with Computer Added Detection was performed. COMPARISON: Comparison is made with prior study dated November 24, 2016 and April 16, 2014. FINDINGS: Breast Composition: The breasts are almost entirely fatty. There are no dominant masses or suspicious calcifications. No other significant abnormalities are identified. There has been no significant change since the prior study. /UNILAT LT SCRN W/CAD IMPRESSION: Stable unilateral screening mammogram. Yearly follow-up mammogram recommended. (A) ASSESSMENT CATEGORY: BIRADS Category 1: Negative. A letter regarding these results will be sent to the patient by the facility within 30 days. Approximately 10% of breast cancers are not detected by mammography. A normal mammogram should not delay biopsy of a clinically suspicious abnormality. [id number] Electronically Signed: Rigo Britt MD at 14:54 EDT Tel [phone], Service support , CC: Nicola Bay MD Dosimetrist: Signed PARACENTESIS WITH US Observed: 12/17/2017 Status: F Source: REJI 2:05 PM [facility] REPOSITORY [facility] Services [address] [place] [address] Paracentesis with US MR#: [id number] Acct: [id number] Name: ANITA MCCALLUM Rep #: [id number] : 1945 F 72 From: Rigo Britt MD PCP: Nicola Bay MD Status: REG CLI Study: Paracentesis with US Date of Exam: 12/17/17 Exam# [id number] Ordering Dr: Abimael Castillo MD PROCEDURE: Ultrasound guided paracentesis. DATE OF EXAMINATION: December 17, 2017.. INDICATION: Female, 72 years old. Ascites. PHYSICIAN: Rigo Britt M.D. TECHNIQUE: The risks, benefits, and alternatives to the procedure were explained to the patient. The specific risks of bleeding, infection, and damage to bowel were detailed and accepted. Witnessed informed consent was obtained. The abdomen was ultrasonographically surveyed. An appropriate pocket of fluid was identified at the right lower quadrant. The skin were cleaned and prepped in the usual sterile fashion. Using ultrasound guidance, the peritoneal cavity was accessed with a 5-Welsh paracentesis needle/catheter system. The trocar was removed. A total of 3000 ml of harsh-colored fluid were removed from the peritoneal cavity. The catheter was removed and a sterile dressing was applied. The procedure was well tolerated. US/Paracentesis with US IMPRESSION: Ultrasound guided paracentesis. Electronically Signed: Rigo Britt MD at 15:14 EDT Tel [phone], Service support , CC: Nicola Bay MD; Abimael Castillo Dosimetrist: Signed PARACENTESIS WITH US Observed: 12/10/2017 Status: F Source: REJI 10:15 AM [facility] REPOSITORY [facility] Services [address] [place] [address] Paracentesis with US MR#: [id number] Acct: [id number] Name: ANITA MCCALLUM Rep #: [id number] : 1945 F 72 From: Rigo Britt MD PCP: Nicola Bay MD Status: REG CLI Study: Paracentesis with US Date of Exam: 12/10/17 Exam# [id number] Ordering Dr: Abimael Castillo MD PROCEDURE: Ultrasound guided paracentesis. DATE OF EXAMINATION: December 10, 2017. INDICATION: Female, 72 years old. Ascites. PHYSICIAN: Rigo Britt M.D. TECHNIQUE: The risks, benefits, and alternatives to the procedure were explained to the patient. The specific risks of bleeding, infection, and damage to bowel were detailed and accepted. Witnessed informed consent was obtained. The abdomen was ultrasonographically surveyed. An appropriate pocket of fluid was identified at the left lower quadrant. The skin were cleaned and prepped in the usual sterile fashion. Using ultrasound guidance, the peritoneal cavity was accessed with a 5-Welsh paracentesis needle/catheter system. The trocar was removed. A total of 6350 ml of harsh-colored fluid were removed from the peritoneal cavity. The catheter was removed and a sterile dressing was applied. The procedure was well tolerated. US/Paracentesis with US IMPRESSION: Ultrasound guided paracentesis. Electronically Signed: Rigo Britt MD at 12:30 EDT Tel [phone], Service support , CC: Nicola Bay MD; Abimael Castillo Dosimetrist: Signed DOWNTIME REPORT Observed: 12/09/2017 Status: F Source: REJI 1:53 PM [facility] Medical Records Department [address] [place] [address] Downtime Report MR#: [id number] Acct: [id number] Name: ANITA MCCALLUM Rep #: [id number] : 1945 72 From: Agapito Ashford PCP: Nicola Bay MD Status: REG CLI This patient was seen during an EMR downtime November 22, 2017 - November 29, 2017. This patient may have a combination of paper and electronic documentation or all paper documentation. All documentation is viewable within the e-chart portion of [employer] for each patient visit. DOWNTIME REPORT Observed: 12/09/2017 Status: F Source: REJI 12:23 PM [facility] Medical Records Department [address] [place] [address] Downtime Report MR#: [id number] Acct: [id number] Name: ANITA MCCALLUM Rep #: [id number] : 1945 72 From: Agapito Ashford PCP: Nicola Bay MD Status: REG CLI This patient was seen during an EMR downtime November 22, 2017 - November 29, 2017. This patient may have a combination of paper and electronic documentation or all paper documentation. All documentation is viewable within the e-chart portion of [employer] for each patient visit. DOWNTIME REPORT Observed: 12/09/2017 Status: F Source: REJI 12:17 PM [facility] Medical Records Department [address] [place] [address] Downtime Report MR#: [id number] Acct: [id number] Name: ANITA MCCALLUM Rep #: [id number] : 1945 72 From: Agapito Ashford PCP: Nicola Bay MD Status: REG CLI This patient was seen during an EMR downtime November 22, 2017 - November 29, 2017. This patient may have a combination of paper and electronic documentation or all paper documentation. All documentation is viewable within the e-chart portion of [employer] for each patient visit. PARACENTESIS WITH US Observed: 12/02/2017 Status: F Source: REJI 12:13 PM [facility] Imaging Services [address] [place] [address] Paracentesis with US MR#: [id number] Acct: [id number] Name: ANITA MCCALLUM Rep #: [id number] : 1945 F 72 From: Samra Martinez MD PCP: Nicola Bay MD Status: REG CLI Study: Paracentesis with US Date of Exam: 12/02/17 Exam# [id number] Ordering Dr: Abimael Castillo MD PROCEDURE: ULTRASOUND GUIDED PARACENTESIS CLINICAL HISTORY: Female, 72 years old. ASCITES CONSENT: The risks, benefits and alternatives to the procedure were explained to the patient, and the patient agreed to the procedure and signed the consent. 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 PROCEDURE/TECHNIQUE: The risks, benefits, and alternatives to the procedure were explained to patient, and the patient agreed to the procedure and signed a consent form for the procedure. TECHNIQUE: Under the ultrasound guidance using sterile technique and after infiltration of the skin and subcutaneous soft tissues with 10 mL of lidocaine 1% a 5 Welsh drainage catheter is introduced in the lower part of the abdomen. 5100 mL of fluid were removed sample sent to lab for evaluation. The patient tolerated the procedure there was no immediate complication. FINDINGS: FLUID PRE-PROCEDURE There is posterior enhancement. The findings appear anechoic. There is no loculation. Volume measurement: 5100 ml. FLUID POST-PROCEDURE Amount of fluid drained: 5100 ml. US/Paracentesis with US IMPRESSION: Successful ultrasound-guided paracentesis. Electronically Signed: Samra Martinez MD at 10:22 EDT Tel , Service support , CC: Nicola Bay MD; Abimael Castillo Dosimetrist: Signed PROGRESS Observed: 12/01/2017 Status: COMPLETED Source: [place] 11:29 AM [facility] REPOSITORY O ID: [id number] Author: Nicola Price Service: (none) Author Type: Physician Type: Progress Notes Filed: 12/01/2017 2:09 PM Note Text: HPI: The patient is a 71 yo female with h/o pancytopenia. Work up in 2009 significant only for positive JATIN; titer was 1:160 in a homogeneous pattern. Had no symptoms to suggest SLE or other rheumatologic disease. Patient declined bone marrow biopsy at that time. Referred back for hypercalcemia-- Patient was referred back for a new problem of hypercalcemia. She was admitted on 12/27/2016 for progressive weakness over the previous 9 days. Patient received IV fluids. She was admitted. She was evaluated by urology and underwent an extensive workup. 1, 25 dihydroxy vitamin D was 207 pg per mL. Upper limit of normal was 79.3. 25 hydroxy vitamin D was 92 ng per mL. Serum protein electrophoresis showed no evidence of a monoclonal spike. Total albumin was 2.3 g/dL. CBC on admission showed a white count of 1500. Neutrophil count was 900. Hemoglobin 8.9 g/dL. Platelet count 71,000. At time of discharge on 01/13/2017 the total white count was 1000. Differential not performed. Hemoglobin 8.5 g/dL and platelet count 55,000. Serum creatinine was 1.1 on admission it was 1.28 at the time of discharge. She received pamidronate while in the hospital. Since then her calcium remained in the 11.5 mg/dL range. Most recent value was 11.2 mg/dL with a creatinine of 1.28 mg/dL on 02/26/2017. Bone survey demonstrated no lytic lesions. Bone scan showed no evidence of blastic bone metastases. She didn't recall seeing a nuclear weapons specialist in 2009. She denied musculoskeletal pain but had a lot of difficulty stepping up onto the exam table. Patient underwent bone marrow biopsy on 04/14/2017. Specimen demonstrated a normocellular marrow with trilineage hematopoiesis and mild erythroid hyperplasia. There was a focal nonnecrotizing granuloma on the core biopsy. Iron stains demonstrated absent iron. No evidence of acid fast bacilli or fungi. Flow cytometry demonstrated no evidence of an immunophenotypic abnormality. Presents for ongoing hematologic management. Interim history: Since last seen, she developed worsening abdominal distention in September. She was diagnosed with ascites and has undergone several high volume paracenteses since then. Cytology on the first specimen was negative. She is under the care of a mounter sousaphones. Evidently there is plan for further workup including EGD in the next few weeks. She hasn't had any unusual bleeding or unexplained bruising. She has some easy bruising on the backs of the forearms. She's not had hematemesis or hemoptysis. She doesn't have abdominal pain. Bowels have been working. No episodes of jaundice. No nausea. Appetite however is decreased. PMH, medications and allergies personally reviewed by me today. Any changes documented in appropriate section. ROS: Constitutional: Denies episodes of fever and night sweats. Neuro: Denies DANG, vertigo, visual changes. Resp: Denies cough, wheeze and hemoptysis. No shortness of breath at rest. CVS: Denies exertional chest pain, PND, orthopnea and LE edema. GI: No symptoms of stomatitis. No odynophagia or dysphagia. : No dysuria or gross hematuria. Musculoskeletal: Denies bone, back, joint and muscular pain. Heme: See above. Derm: No rash except rosacea. Psych: Normal mood. PHYSICAL EXAM: Vitals: Blood pressure 122/56, pulse 68, temperature 36.8 ?C (98.3 ?F), weight 83.9 kg (185 lb). Well-appearing and in no acute distress. EYES: Sclerae are anicteric bilaterally. NECK: Supple. No enlargement of thyroid. LYMPHATIC: There is no palpable cervical, supraclavicular denopathy. RESPIRATORY: Inspiratory breath sounds are of normal intensity in all bahena. No rales, wheezes or rhonchi. CARDIOVASCULAR: Rhythm is regular. Normal intensity S1/S2. There is no gallop or murmur. ABDOMEN: The abdomen is distended and there is a fluid wave. I'm not able to appreciate splenomegaly due to the ascites. Extremities: Chronic swelling both LEs. SKIN: No jaundice or rash. No petechiae. No spider angiomas. No palmar erythema. NEUROLOGIC: home appraiser II-XII are grossly intact. 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 -Previous 2 bone marrow biopsies normal. -With recent development of ascites, etiology of pancytopenia canal comfortably be ascribed to hypersplenism/spinal megaly secondary to underlying cirrhosis. -I discussed this with the patient in detail. I explained that from a hematologic standpoint I will continue to help manage her blood situation with supportive care as needed. Plan: - OV/CBC/CMP/Iron studies in about 3 months. Nicola Price DO CNOVSP Observed: 12/01/2017 Status: COMPLETED Source: [place] 10:50 AM [facility] REPOSITORY Visit (SP) Office (HEMJERED) ANITA MCCALLUM ([id number]) 1945 F Date Time Provider Department 12/01/17 10:50 AM NICOLA PRICE During your visit today, we recorded the following information about you: Temperature Pulse Blood pressure Weight 98.3 degrees 68/minute 122/56 83.9 kg Viv Elizabeth LPN, LPN 12/01/2017 11:40 AM Signed Est pt, discuss recent lab results, 6 month f/u ARNALDO Saab DO 12/01/2017 2:09 PM Signed HPI: The patient is a 71 yo female with h/o pancytopenia. Work up in 2009 significant only for positive JATIN; titer was 1:160 in a homogeneous pattern. Had no symptoms to suggest SLE or other rheumatologic disease. Patient declined bone marrow biopsy at that time. Referred back for hypercalcemia-- Patient was referred back for a new problem of hypercalcemia. She was admitted on 12/27/2016 for progressive weakness over the previous 9 days. Patient received IV fluids. She was admitted. She was evaluated by urology and underwent an extensive workup. 1, 25 dihydroxy vitamin D was 207 pg per mL. Upper limit of normal was 79.3. 25 hydroxy vitamin D was 92 ng per mL. Serum protein electrophoresis showed no evidence of a monoclonal spike. Total albumin was 2.3 g/dL. CBC on admission showed a white count of 1500. Neutrophil count was 900. Hemoglobin 8.9 g/dL. Platelet count 71,000. At time of discharge on 01/13/2017 the total white count was 1000. Differential not performed. Hemoglobin 8.5 g/dL and platelet count 55,000. Serum creatinine was 1.1 on admission it was 1.28 at the time of discharge. She received pamidronate while in the hospital. Since then her calcium remained in the 11.5 mg/dL range. Most recent value was 11.2 mg/dL with a creatinine of 1.28 mg/dL on 02/26/2017. Bone survey demonstrated no lytic lesions. Bone scan showed no evidence of blastic bone metastases. She didn't recall seeing a nuclear weapons specialist in 2009. She denied musculoskeletal pain but had a lot of difficulty stepping up onto the exam table. Patient underwent bone marrow biopsy on 04/14/2017. Specimen demonstrated a normocellular marrow with trilineage hematopoiesis and mild erythroid hyperplasia. There was a focal nonnecrotizing granuloma on the core biopsy. Iron stains demonstrated absent iron. No evidence of acid fast bacilli or fungi. Flow cytometry demonstrated no evidence of an immunophenotypic abnormality. Presents for ongoing hematologic management. Interim history: Since last seen, she developed worsening abdominal distention in September. She was diagnosed with ascites and has undergone several high volume paracenteses since then. Cytology on the first specimen was negative. She is under the care of a mounter sousaphones. Evidently there is plan for further workup including EGD in the next few weeks. She hasn't had any unusual bleeding or unexplained bruising. She has some easy bruising on the backs of the forearms. She's not had hematemesis or hemoptysis. She doesn't have abdominal pain. Bowels have been working. No episodes of jaundice. No nausea. Appetite however is decreased. PMH, medications and allergies personally reviewed by me today. Any changes documented in appropriate section. ROS: Constitutional: Denies episodes of fever and night sweats. Neuro: Denies DANG, vertigo, visual changes. Resp: Denies cough, wheeze and hemoptysis. No shortness of breath at rest. CVS: Denies exertional chest pain, PND, orthopnea and LE edema. GI: No symptoms of stomatitis. No odynophagia or dysphagia. : No dysuria or gross hematuria. Musculoskeletal: Denies bone, back, joint and muscular pain. Heme: See above. Derm: No rash except rosacea. Psych: Normal mood. PHYSICAL EXAM: Vitals: Blood pressure 122/56, pulse 68, temperature 36.8 ?C (98.3 ?F), weight 83.9 kg (185 lb). Well-appearing and in no acute distress. EYES: Sclerae are anicteric bilaterally. NECK: Supple. No enlargement of thyroid. LYMPHATIC: There is no palpable cervical, supraclavicular denopathy. RESPIRATORY: Inspiratory breath sounds are of normal intensity in all bahena. No rales, wheezes or rhonchi. CARDIOVASCULAR: Rhythm is regular. Normal intensity S1/S2. There is no gallop or murmur. ABDOMEN: The abdomen is distended and there is a fluid wave. I'm not able to appreciate splenomegaly due to the ascites. Extremities: Chronic swelling both LEs. SKIN: No jaundice or rash. No petechiae. No spider angiomas. No palmar erythema. NEUROLOGIC: home appraiser II-XII are grossly intact. 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 -Previous 2 bone marrow biopsies normal. -With recent development of ascites, etiology of pancytopenia canal comfortably be ascribed to hypersplenism/spinal megaly secondary to underlying cirrhosis. -I discussed this with the patient in detail. I explained that from a hematologic standpoint I will continue to help manage her blood situation with supportive care as needed. Plan: - OV/CBC/CMP/Iron studies in about 3 months. Nicola Price DO Referring Provider: NICOLA PRICE [[id number]] Allergies As of Date: 12/01/2017 Noted Allergy Reaction BIAXIN (CLARITHROMYCIN) 06/12/2009 POTASSIUM IODIDE 06/12/2009 Date Reviewed: 12/01/2017 Reviewed by: Viv Fuentes) ARNALDO Elizabeth - Fully Assessed Reason for Visit: Established Patient [175] Primary Visit Diagnosis:Pancytopenia (HCC) [D61.818] Follow-up and Disposition History Recorded Prescriptions as of 12/01/2017 Sig: FUROSEMIDE 40 MG TABLET Take 40 mg by mouth once kevin* LOSARTAN 50 MG TABLET Take 50 mg by mouth once kevin* ATENOLOL 50 MG TABLET Take 50 mg by mouth once kevin* HUMALOG KWIKPEN (U-100) INSUL* Sliding scale. METFORMIN 1,000 MG TABLET Take 1,000 mg by mouth twice * AMLODIPINE 5 MG TABLET Take 5 mg by mouth once daily. SPIRONOLACTONE 50 MG TABLET Take 50 mg by mouth once kevin* Problem List As Of Date 12/01/2017 Noted Resolved Anemia [D64.9] INVALID FOR* Pancytopenia (HCC) [D61.818] INVALID FOR* Hyperparathyroidism (HCC) [E21.3] INVALID FOR* Hypercalcemia [E83.52] INVALID FOR* Hypersplenism [D73.1] INVALID FOR* Visit Notes: >> Viv Elizabeth LPN WedDec 01, 2017 11:08 AM Status: Signed Est pt, discuss recent lab results, 6 month f/u Viv Elizabeth LPN Encounter Status:Closed by NICOLA PRICE DO on 12/01/17 WOUND CTR HISTORY Observed: 11/30/2017 Status: F Source: [facility] 9:52 AM [facility] REPOSITORY [facility] [address] [place] [address] Wound Ctr History AND Physical 11/30/17 0942 MR#: [id number] Acct: [id number] Name: ANITA MCCALLUM Rep #: [id number] : 1945 72 From: Jose Alfredo Barnett MD PCP: Nicola Bay MD Status: REG RCR Y Location: (1) Venous insufficiency (chronic) (peripheral) Status: Chronic Current Visit: Yes Code(s): I87.2 - Venous insufficiency (chronic) (peripheral) (2) Non-pressure chronic ulcer of other part of left lower leg limited to breakdown of skin Status: Resolved Current Visit: No Code(s): L97.821 - Non-pressure chronic ulcer of other part of left lower leg limited to breakdown of skin (3) Chronic ulcer of leg with fat layer exposed Status: Resolved Current Visit: No Qualifiers: Code(s): L97.902 - Non-pressure chronic ulcer of unspecified part of unspecified lower leg with fat layer exposed (4) Blister of left leg without infection Status: Resolved Current Visit: No Qualifiers: Code(s): S80.822A - Blister (nonthermal), left lower leg, initial encounter (5) Non-pressure chronic ulcer of other part of left lower leg with fat layer exposed Status: Resolved Current Visit: No Code(s): L97.822 - Non-pressure chronic ulcer of other part of left lower leg with fat layer exposed (6) History of breast cancer Status: Chronic Current Visit: No Code(s): Z85.3 - Personal history of malignant neoplasm of breast (7) Swelling of lower extremity Status: Chronic Current Visit: Yes Code(s): M79.89 - Other specified soft tissue disorders (8) Dependent edema Status: Chronic Current Visit: Yes Code(s): R60.9 - Edema, unspecified (9) Ascites Status: Acute Current Visit: Yes Code(s): R18.8 - Other ascites (10) Abdominal distension Status: Acute Current Visit: Yes Code(s): R14.0 - Abdominal distension (gaseous) (11) Chronic kidney disease (CKD) Status: Chronic Current Visit: No Qualifiers: Code(s): N18.9 - Chronic kidney disease, unspecified (12) Protein malnutrition Status: Chronic Current Visit: No Code(s): E46 - Unspecified protein-calorie malnutrition (13) CKD (chronic kidney disease) stage 4, GFR 15-29 ml/min Status: Chronic Current Visit: No Code(s): N18.4 - Chronic kidney disease, stage 4 (severe) (14) Pancytopenia Status: Acute Current Visit: No Code(s): D61.818 - Other pancytopenia (15) Hypercalcemia Status: Acute Current Visit: No Code(s): E83.52 - Hypercalcemia (16) Breast CA Status: Chronic Current Visit: No Code(s): C50.919 - Malignant neoplasm of unspecified site of unspecified female breast (17) TIA (transient ischemic attack) Status: Chronic Current Visit: No (18) DM2 (diabetes mellitus, type 2) Status: Chronic Current Visit: No Code(s): E11.9 - Type 2 diabetes mellitus without complications (19) Non-pressure chronic ulcer of other part of right lower leg with fat layer exposed Status: Resolved Current Visit: No Code(s): L97.812 - Non-pressure chronic ulcer of other part of right lower leg with fat layer exposed (20) Bilateral leg edema Status: Chronic Current Visit: Yes Code(s): R60.0 - Localized edema (21) 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 She has been treated for swelling and edema in her lower extremities, associated with blisters and superficial ulcerations. She is currently being managed by the use of 3M 2 layer compression wraps. Venous duplex examination, performed on August 02, 2017, revealed incompetence of the right great saphenous vein, and the left great saphenous vein below the knee. A noninvasive lower extremity arterial study was normal, revealing no evidence of significant arterial occlusive disease in the lower extremities. Of note, the patient began sleeping in a recliner, in an upright position, approximately 1 year ago. She claims to be relatively active, but otherwise spends significant amounts of time each day in an idle sitting position. She has been treated for ulcerations and blisters in the lower extremities bilaterally. All ulcerations are now completely healed bilaterally. The patient has undergone recent laboratory testing, with results as follows: White blood count 3.1, hemoglobin 10.9, hematocrit 33.7, platelets 98,000, sodium 141, potassium 4.1, chloride 109, BUN 29, creatinine 1.36, glucose 129, calcium 10.6, total bilirubin 1.10, AST 37, ALT 31, alkaline phosphatase 181, total protein 7.2, albumin 3.1. As an aside, the patient has developed severe abdominal distention within the last several months. This was thought to be due to the accumulation of ascites. An abdominal ultrasound examination was performed on October 16, 2017, revealing hepatic steatosis, ascites, and splenomegaly. A recent abdominal x-ray was relatively unremarkable. The patient has undergone paracentesis of the ascites fluid on numerous occasions, and as recently as 5 days ago, with removal of large amounts of ascitic fluid. She is under the care of other providers, including Dr. Castillo, a mounter sousaphones. It is suspected that the lower extremity swelling is due to dependency, as well as metabolic factors. 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 She is a Ab0. Allergies/Adverse Reactions: Allergies clarithromycin [From Biaxin] Allergy (Verified 10/22/17 14:31) Unknown iodine Allergy (Verified 10/22/17 14:31) Unknown Home Medications: Ambulatory Orders Medication Instructions Recorded Aspirin [Aspirin, Baby] 81 mg PO DAILY@0800 08/08/13 - Family History Sibling Cancer - Brother is from cancer that started in his leg, - - The patient's father at age of 85 with a history of congestive heart failure. The patient's mother at the age of 85 due to septic shock from urinary tract infection. Smoking Status: Never smoker Tobacco Use: Non-smoker Review of Systems Constitutional: Denies: Chills, Fever, Weight Change Eyes: Denies: Pain, Vision Change HEENT: Denies: Difficulty Hearing, Difficulty Swallowing, Sinus Congestion Cardiovascular: Denies: Chest Pain, Palpitations Respiratory: Denies: Cough, Shortness of Breath Gastrointestinal: Denies: Diarrhea, Nausea, Vomiting Genitourinary: Denies: Dysuria, Hematuria Endocrine: Denies: Heat/ Cold Intolerance, Polydipsia, Polyuria Hematologic/ Lymphatic: Denies: Easy Bruising, Easy Bleeding - Physical Exam Vital Signs Temp Pulse Resp BP 97.5 F L 72 16 122/49 H 11/30/17 09:17 11/30/17 09:17 11/30/17 09:17 11/30/17 09:17 General: Alert, Oriented x3, Cooperative, No apparent distress, Well developed, Well nourished HEENT: Atraumatic, PERRLA, EOMI, Normocephalic Oral: Moist Mucosa Neck: No JVD Lungs: Normal air movement Abdomen: - - Mild abdominal distention is noted, but improved over prior weeks. Extremities: No clubbing, No cyanosis, No edema, No Calf Tenderness, - - There is no significant swelling or edema in the patient's lower extremities. There has been significant improvement in recent weeks. There are no open wounds or ulcerations. There is no sign of infection or cellulitis. Skin: No rashes, No breakdown Wound Measurements and Assessment WC - Nurse 1 - General Ulcer Measurement Start: 11/19/17 10:36 Freq: Status: Active Protocol: Activity Type Activity Date Activity User E-Sign Co-Sign Detail Recorded Client Recorded Date Recorded By Document 11/30/17 09:17 DONALDO [id number] 11/30/17 09:21 Wound Center Nurse 1 [Ulcer Assessment] #1- RT LAT GONZALEZ -Combined with other wound No -Current Size (cm) - Length 0 -Current Size (cm) - Width 0 -Current Size (cm) - Depth 0 Musculoskeletal: No Muscle Wasting Neurological: Cranial nerves II-XII grossly intact, Neuro grossly intact Psych/Mental Status: Normal Affect, Appropriate, Alert and oriented to time, place, person, mood and affect Debridement Note No debridement was completed today Assessment/Plan Active Problems Venous insufficiency (chronic) (peripheral) (Chronic) Swelling of lower extremity (Chronic) Dependent edema (Chronic) Ascites (Acute) Abdominal distension (Acute) Bilateral leg edema (Chronic) 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 As result of the severe swelling and edema in the left lower extremity, the patient developed several blisters, which subsequently spontaneously burst. They are now currently healed and fully epithelialized. There are no open wounds or ulcerations at this time. The swelling and edema in the lower extremities appears to be well controlled with current measures. The patient has been advised to modify her lifestyle habits, and the measures to be undertaken have been thoroughly explained. She is to continue sleeping on a flat mattress at night. She is to elevate her legs to heart level, or higher, as much as possible during daytime hours. Activity has been encouraged. The patient has been discouraged from prolonged idle sitting and standing. Significant progress has been made in diminishing the swelling and edema in the patient's lower extremities. Her severe ascites, and the apparent reaccumulation of ascitic fluid within the abdominal cavity, appear to be a significant current medical problem. She is currently under management by other providers in this regard. Plan: Conservative treatment measures are to be continued. These have been discussed with the patient thoroughly. She is to elevate her lower extremities as much as possible. Elevation is to be to heart level, or higher. She is to sleep on a flat mattress at night, rather than in a recliner. Leg elevation has been encouraged, even during daytime hours, as much as possible. The patient is to refrain from prolonged idle sitting. Activity has been encouraged. Weight loss has been recommended. Optimization of the patient's nutrition, and optimization of the patient's glycemic control has also been recommended. Compression is to be continued by means of 3M 2 layer compression wraps on both lower extremities, which will be changed twice weekly. The patient has been measured for CircAid compression garments bilaterally, which are awaited, and should be available soon. Patient is to return in 2 weeks for reevaluation. It is anticipated that modification of the patient's lifestyle will likely result in long-term decrease in her lower extremity swelling. Discussed importance of tight blood sugar control, adequate nutrition especially increased protein intake, to promote healing. Discussed importance of edema control--recommended leg elevation above her heart while resting or sleeping, avoiding idle sitting or standing, compression of at least 20-30 mmHg, increased activity, weight management. We will await the results of evaluation and management regarding the patient's abdominal ascites. Influenza vaccine was not administered today. The patient is not a smoker. The patient stands 5 feet 2 inches tall. She weighs 207 pounds. Her BMI is 37.9, which places her in an obese class II category. Weight loss has been recommended, the patient has been encouraged to collaborate with her primary care physician in this regard. 11/30/17 0952 <Electronically signed by Jose Alfredo Barnett MD> Date Jose Alfredo Barnett MD CC: Signed PARACENTESIS WITH US Observed: 11/29/2017 Status: F Source: [place] 10:32 AM [facility] REPOSITORY [facility] Imaging Services [address] [place], [place] [address] [address] Paracentesis with US MR#: [id number] Acct: [id number] Name: ANITA MCCALLUM Rep #: [id number] : 1945 F 72 From: Samra Martinez MD PCP: Nicola Bay MD Status: REG CLI Study: Paracentesis with US Date of Exam: 11/22/17 Exam# [id number] Ordering Dr: Abimael Castillo MD PROCEDURE: ULTRASOUND GUIDED PARACENTESIS CLINICAL HISTORY: Female, 72 years old. ASCITES CONSENT: The risks, benefits and alternatives to the procedure were explained to the patient, and the patient agreed to the procedure and signed the consent. 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 PROCEDURE/TECHNIQUE: The risks, benefits, and alternatives to the procedure were explained to patient, and the patient agreed to the procedure and signed a consent form for the procedure. TECHNIQUE: Under the ultrasound guidance using sterile technique and after infiltration of the skin and subcutaneous soft tissues with 10 mL of lidocaine 1% a 5 Welsh drainage catheter is introduced in the lower part of the abdomen. 8000 mL of fluid were removed sample sent to lab for evaluation. The patient tolerated the procedure there was no immediate complication. FINDINGS: FLUID PRE-PROCEDURE There is posterior enhancement. The findings appear anechoic. There is no loculation. Volume measurement: 8000 ml. FLUID POST-PROCEDURE Amount of fluid drained: 8000 ml. US/Paracentesis with US IMPRESSION: Successful ultrasound-guided paracentesis. Electronically Signed: Samra Martinez MD at 13:22 EDT Tel , Service support , CC: Nicola Bay MD; Abimael Castillo Dosimetrist: Signed PARACENTESIS WITH US Observed: 11/25/2017 Status: F Source: [place] 9:05 AM [facility] Imaging Services [address] [place] [id number] Paracentesis with US MR#: [id number] Acct: [id number] Name: ANITA MCCALLUM Rep #: [id number] : 1945 F 72 From: Samra Martinez MD PCP: Nicola Bay MD Status: REG CLI Study: Paracentesis with US Date of Exam: 11/25/17 Exam# [id number] Ordering Dr: Abimael Castillo MD PROCEDURE: ULTRASOUND GUIDED PARACENTESIS CLINICAL HISTORY: Female, 72 years old. ASCITES CONSENT: The risks, benefits and alternatives to the procedure were explained to the patient, and the patient agreed to the procedure and signed the consent. 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 PROCEDURE/TECHNIQUE: The risks, benefits, and alternatives to the procedure were explained to patient, and the patient agreed to the procedure and signed a consent form for the procedure. TECHNIQUE: Under the ultrasound guidance using sterile technique and after infiltration of the skin and subcutaneous soft tissues with 10 mL of lidocaine 1% a 5 Welsh drainage catheter is introduced in the lower part of the abdomen. 3650 mL of fluid were removed sample sent to lab for evaluation. The patient tolerated the procedure there was no immediate complication. FINDINGS: FLUID PRE-PROCEDURE There is posterior enhancement. The findings appear anechoic. There is no loculation. Volume measurement: 4000 ml. FLUID POST-PROCEDURE Amount of fluid drained: 3650 ml. US/Paracentesis with US IMPRESSION: Successful ultrasound-guided paracentesis. Electronically Signed: Samra Martinez MD at 14:06 EDT Tel , Service support , CC: Nicola Bay MD; Abimael Castillo Dosimetrist: Signed FERRITIN Collected: 11/24/2017 Status: F Source: [place] 12:51 PM [facility] REPOSITORY TYPE CODE TESTS RESULT OUT OF REFERENCE UNITS RANGE LAB FERR 14.7-205.1 ng/mL Test Ferritin sent to [facility]. Result Comment: Account Credited J[facility] IRON AND TIBC Collected: 11/24/2017 Status: F Source: [place] 12:51 PM [facility] REPOSITORY TYPE CODE TESTS RESULT OUT OF REFERENCE UNITS RANGE LAB IRN 41-186 ug/dL Test Iron sent to [facility]. Result Comment: Account Credited ADRIENE LAB TIBC 232-386 ug/dL Test sent TIBC to [facility]. Result Comment: Account Credited [facility] LAB SAT 15-57 % Transferrin Test sent Saturatn to [facility]. Result Comment: Account Credited [facility] [place] ABS GR + CBC Collected: 11/24/2017 Status: F Source: [place] 12:50 PM [facility] REPOSITORY TYPE CODE TESTS RESULT OUT OF REFERENCE UNITS RANGE LAB WWBC 3.70-11.00 k/uL Low [place] WBC 2.18 LAB WRBC 3.90-5.20 m/uL Low [place] RBC 3.36 LAB WHGB 11.5-15.5 g/dL Low [place] Hemoglobin 10.4 LAB WHCT 36.0-46.0 % Low [place] Hematocrit 32.1 LAB WMCV 80.0-100.0 fL [place] MCV 95.5 LAB WMCH 26.0-34.0 pg [place] MCH 31.0 LAB WMCHC 30.5-36.0 g/dL [place] MCHC 32.4 LAB WRDW 11.5-15.0 % [place] RDW 14.5 LAB WPLT 150-400 k/uL Low [place] Platelet Cnt 65 Result Comment: NO CLOT DETECTED LAB WMPV 9.0-12.7 fL [place] MPV 10.4 Result Comment: Test performed at: [facility] [place], [address] [place] [address]. LAB ABGRAN 1.45-7.50 k/uL Absol Gran 1.59 Count [place] ISTAT BMP Collected: 11/24/2017 Status: F Source: [place] 12:[address] [facility] REPOSITORY TYPE CODE TESTS RESULT OUT OF REFERENCE UNITS RANGE LAB NAWB 132-148 mmol/L Sodium, Whole 140 Bld LAB K1WB 3.5-5.0 mmol/L Potassium,Who 4.8 le Bld LAB CLWB 98-110 mmol/L Chloride, 108 Whole Bld LAB ICAWB 1.08-1.30 mmol/L High Ionized 1.48 Calcium, WB Result Comment: Please note: This value represents ionized calcium not total calcium. LAB CO2WB 23-32 mmol/L TCO2, Whole 23 Blood LAB GLUWB 65-100 mg/dL High Glucose, 151 Whole Bld LAB BUNWB 8-25 mg/dL High BUN, Whole 35 Blood LAB BCRET 0.70-1.40 mg/dL High Creatinine,Wh 1.50 ole Bld LAB AGAPWB 0-15 mmol/L Anion Gap, 9 Whole Bld LAB GFRAA eGFR- 41 Amer. LAB GFRNAA . eGFR-All 34 Other Races Result Comment: eGFR (Estimated GFR) Units of measure: mL/min/1.73 meters squared eGFR is derived from the reexpressed MDRD Study equation using the following parameters: serum creatinine, age, gender and race. The creatinine assay has been calibrated to be traceable to [employer]. An eGFR <60 mL/min/1.73m2 for >3 months is consistent with chronic kidney disease. Refer to KDOQI guidelines for clinical interpretation. In patients with unstable renal function, e.g. those with acute kidney injury, the eGFR may not accurately reflect actual GFR. IRON+IRON BINDING Collected: 11/24/2017 Status: F Source: [place] 12:24 PM [facility] REPOSITORY Order Comment: RESULT(S) PREVIOUSLY REPORTED ON MANUAL REQUISITION DURING DOWNTIME. TYPE CODE TESTS RESULT OUT OF RANGE REFERENCE UNITS LAB L503.6075 250-450 ug/dL Low TIBC 232 LAB L503.6150 50-170 ug/dL IRON Normal 115 LAB L503.6250 15.0-55.0 % IRON Normal SATURATION 49.6 Performed By: #### L503.6030, L503.6550 #### [facility] [address] [place], [address] FERRITIN Collected: 11/24/2017 Status: F Source: [place] 12:24 PM [facility] REPOSITORY Order Comment: RESULT(S) PREVIOUSLY REPORTED ON MANUAL REQUISITION DURING DOWNTIME. TYPE CODE TESTS RESULT OUT OF REFERENCE UNITS RANGE LAB L503.6550 8-252 ng/mL High FERRITIN 339 Performed By: #### L503.6030, L503.6550 #### [facility] [address] [place], [address] PROTHROMBIN TIME W/INR Collected: 11/22/2017 Status: F Source: [place] 9:40 AM [facility] REPOSITORY Order Comment: RESULT(S) PREVIOUSLY REPORTED ON MANUAL REQUISITION DURING DOWNTIME. TYPE CODE TESTS RESULT OUT OF RANGE REFERENCE UNITS LAB L300.4150 11.7-14.9 SECONDS Normal PROTIME 13.9 LAB L300.4200 Normal INR 1.1 Performed By: #### L300.3900, L300.4310 #### [facility] [address] [place], [address] PARTIAL THROMBOPLAST Collected: 11/22/2017 Status: F Source: [place] TIME 9:40 AM [facility] REPOSITORY Order Comment: RESULT(S) PREVIOUSLY REPORTED ON MANUAL REQUISITION DURING DOWNTIME. TYPE CODE TESTS RESULT OUT OF RANGE REFERENCE UNITS LAB L300.4310 24.1-36.2 Seconds Normal PTT 29.4 Performed By: #### L300.3900, L300.4310 #### [facility] [address] [place], [address] PARACENTESIS WITH US Observed: 11/19/2017 Status: F Source: [place] 1:59 PM [facility] REPOSITORY [facility] Imaging Services [address] [place] [address] Paracentesis with US MR#: [id number] Acct: [id number] Name: ANITA MCCALLUM Rep #: [id number] : 1945 F 72 From: Rigo Britt MD PCP: Nicola Bay MD Status: REG CLI Study: Paracentesis with US Date of Exam: 11/19/17 Exam# [id number] Ordering Dr: Abimael Castillo MD PROCEDURE: Ultrasound guided paracentesis. DATE OF EXAMINATION: November 19, 2017. INDICATION: Female, 72 years old. Ascites. PHYSICIAN: Rigo Britt M.D. TECHNIQUE: The risks, benefits, and alternatives to the procedure were explained to the patient. The specific risks of bleeding, infection, and damage to bowel were detailed and accepted. Witnessed informed consent was obtained. The abdomen was ultrasonographically surveyed. An appropriate pocket of fluid was identified at the right lower quadrant. The skin were cleaned and prepped in the usual sterile fashion. Using ultrasound guidance, the peritoneal cavity was accessed with a 5-Welsh paracentesis needle/catheter system. The trocar was removed. A total of 8000 ml of harsh-colored fluid were removed from the peritoneal cavity. The catheter was removed and a sterile dressing was applied. The procedure was well tolerated. US/Paracentesis with US IMPRESSION: Ultrasound guided paracentesis. Electronically Signed: Rigo Britt MD at 15:41 EDT Tel [phone], Service support , CC: Nicola Bay MD; Abimael Castillo Dosimetrist: Signed ALBUMIN, SERUM Collected: 11/19/2017 Status: F Source: [place] 9:32 AM [facility] REPOSITORY Order Comment: Serial Specimen #1, #2 or #3? 1 TYPE CODE TESTS RESULT OUT OF RANGE REFERENCE UNITS LAB L501.1800 3.2-5.0 g/dL Low ALB 2.7 Performed By: #### L501.1800, L501.2450, L504.2610 #### [facility] [address] [place], [address] LIPASE Collected: 11/19/2017 Status: F Source: [place] 9:32 AM [facility] REPOSITORY Order Comment: Serial Specimen #1, #2 or #3? 1 TYPE CODE TESTS RESULT OUT OF RANGE REFERENCE UNITS LAB L501.2450 73-393 U/L Normal LIPASE 167 Performed By: #### L501.1800, L501.2450, L504.2610 #### [facility] [address] [place], [address] LDH Collected: 11/19/2017 Status: F Source: [place] 9:32 AM [facility] REPOSITORY Order Comment: Serial Specimen #1, #2 or #3? 1 TYPE CODE TESTS RESULT OUT OF RANGE REFERENCE UNITS LAB L504.2610 84-246 U/L Normal LDH 190 Performed By: #### L501.1800, L501.2450, L504.2610 #### [facility] [address] [place], [address] BASIC METABOLIC Collected: 11/17/2017 Status: F Source: [place] PROFILE (BMP) 2:09 PM [facility] REPOSITORY TYPE CODE TESTS RESULT OUT OF RANGE REFERENCE UNITS LAB L501.0100 74-106 mg/dL High GLU 139 Result Comment: Fasting Glucose result greater than or equal to 126 mg/dL suggests DIABETES MELLITUS per A.D.A. criteria. Please note revised GLUCOSE reference range effective 2017. LAB L501.1000 7-18 mg/dL High BUN 37 LAB L501.1100 0.55-1.02 mg/dL High CREAT,SERUM 1.48 Result Comment: The validity of the calculated GFR AND GFRAA in patients over 70 years has not been determined. Clinical correlation is essential. LAB L501.1110 >60 mL/min Low EST GFR 37 Result Comment: Non- GFR Calc LAB L501.1115 >60 mL/min Low EST GFR - AA 45 Result Comment: GFR Calc LAB L501.1300 10-20 RATIO High BUN/CRE 25.0 LAB L501.2200 8.5-10.1 mg/dL High CA 10.3 LAB L501.5300 136-145 mmol/L NA Normal 144 LAB L501.5600 3.5-5.1 mmol/L K Normal 4.5 LAB L501.5900 98-107 mmol/L High CL 110 LAB L501.6100 21.0-32.0 mmol/L Normal CO2 27.0 LAB L501.6200 5-15 Normal GAP 7 Performed By: #### L500.2500 #### [facility] [address] [place], [address] WOUND CTR HISTORY Observed: 11/16/2017 Status: F Source: [place] AND PHYSICAL 10:12 AM [facility] REPOSITORY [facility] [address] [place] [address] Wound Ctr History AND Physical 11/16/17 1004 MR#: [id number] Acct: [id number] Name: ANITA MCCALLUM Rep #: [id number] : 1945 72 From: Jose Alfredo Barnett MD PCP: Nicola Bay MD Status: REG RCR Y Location: WC (1) Venous insufficiency (chronic) (peripheral) Status: Chronic Current Visit: Yes Code(s): I87.2 - Venous insufficiency (chronic) (peripheral) (2) Non-pressure chronic ulcer of other part of left lower leg limited to breakdown of skin Status: Resolved Current Visit: Yes Code(s): L97.821 - Non-pressure chronic ulcer of other part of left lower leg limited to breakdown of skin (3) Chronic ulcer of leg with fat layer exposed Status: Resolved Current Visit: Yes Qualifiers: Laterality: left Qualified Code(s): L97.922 - Non-pressure chronic ulcer of unspecified part of left lower leg with fat layer exposed Code(s): L97.902 - Non-pressure chronic ulcer of unspecified part of unspecified lower leg with fat layer exposed (4) Blister of left leg without infection Status: Resolved Current Visit: Yes Qualifiers: Encounter type: subsequent encounter Qualified Code(s): S80.822D - Blister (nonthermal), left lower leg, subsequent encounter Code(s): S80.822A - Blister (nonthermal), left lower leg, initial encounter (5) Non-pressure chronic ulcer of other part of left lower leg with fat layer exposed Status: Resolved Current Visit: Yes Code(s): L97.822 - Non-pressure chronic ulcer of other part of left lower leg with fat layer exposed (6) History of breast cancer Status: Chronic Current Visit: No Code(s): Z85.3 - Personal history of malignant neoplasm of breast (7) Swelling of lower extremity Status: Chronic Current Visit: Yes Code(s): M79.89 - Other specified soft tissue disorders (8) Dependent edema Status: Chronic Current Visit: Yes Code(s): R60.9 - Edema, unspecified (9) Ascites Status: Acute Current Visit: Yes Code(s): R18.8 - Other ascites (10) Abdominal distension Status: Acute Current Visit: Yes Code(s): R14.0 - Abdominal distension (gaseous) (11) Chronic kidney disease (CKD) Status: Chronic Current Visit: No Qualifiers: Code(s): N18.9 - Chronic kidney disease, unspecified (12) Protein malnutrition Status: Chronic Current Visit: No Code(s): E46 - Unspecified protein-calorie malnutrition (13) CKD (chronic kidney disease) stage 4, GFR 15-29 ml/min Status: Chronic Current Visit: No Code(s): N18.4 - Chronic kidney disease, stage 4 (severe) (14) Pancytopenia Status: Acute Current Visit: No Code(s): D61.818 - Other pancytopenia (15) Hypercalcemia Status: Acute Current Visit: No Code(s): E83.52 - Hypercalcemia (16) Breast CA Status: Chronic Current Visit: No Code(s): C50.919 - Malignant neoplasm of unspecified site of unspecified female breast (17) TIA (transient ischemic attack) Status: Chronic Current Visit: No (18) DM2 (diabetes mellitus, type 2) Status: Chronic Current Visit: No Code(s): E11.9 - Type 2 diabetes mellitus without complications (19) Bilateral leg edema Status: Chronic Current Visit: Yes Code(s): R60.0 - Localized edema (20) Type 2 diabetes mellitus with other circulatory complications Status: Chronic Current Visit: No Code(s): E11.59 - Type 2 diabetes mellitus with other circulatory complications (21) Benign essential HTN Status: Chronic Current Visit: No Code(s): I10 - Essential (primary) hypertension History of Present Illness Date of Service: 11/16/17 Chief Complaint: Chronic swelling and edema in the lower extremities, with superficial ulcerations and blisters of the lower extremities History of Wound: This is a 72-year-old female who [facility] since late June 2017. She has been treated for swelling and edema in her lower extremities, associated with blisters and superficial ulcerations. She is currently being managed by the use of 3M 2 layer compression wraps and Unna boots. Venous duplex examination, performed on August 02, 2017, revealed incompetence of the right great saphenous vein, and the left great saphenous vein below the knee. A noninvasive lower extremity arterial study was normal, revealing no evidence of significant arterial occlusive disease in the lower extremities. Of note, the patient began sleeping in a recliner, in an upright position, approximately 1 year ago. She claims to be relatively active, but otherwise spends significant amounts of time each day in an idle sitting position. She has been treated for ulcerations and blisters in the lower extremities bilaterally. As of today, all ulcerations appear to be completely healed bilaterally. The patient has undergone recent laboratory testing, with results as follows: White blood count 3.1, hemoglobin 10.9, hematocrit 33.7, platelets 98,000, sodium 141, potassium 4.1, chloride 109, BUN 29, creatinine 1.36, glucose 129, calcium 10.6, total bilirubin 1.10, AST 37, ALT 31, alkaline phosphatase 181, total protein 7.2, albumin 3.1. As an aside, the patient has developed severe abdominal distention within the last month. This was thought to be due to the accumulation of ascites. An abdominal ultrasound examination was performed on October 16, 2017, revealing hepatic steatosis, ascites, and splenomegaly. A recent abdominal x-ray was relatively unremarkable. The patient has undergone paracentesis of the ascites fluid on several occasions, with removal of large amounts of ascitic fluid. She is under the care of other providers, including Dr. Castillo, a mounter sousaphones. It is suspected that the lower extremity swelling is due to dependency, as well as metabolic factors. 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 She is a Ab0. Allergies/Adverse Reactions: Allergies clarithromycin [From Biaxin] Allergy (Verified 10/22/17 14:31) Unknown iodine Allergy (Verified 10/22/17 14:31) Unknown Home Medications: Ambulatory Orders Medication Instructions Recorded Aspirin [Aspirin, Baby] 81 mg PO DAILY@0800 08/08/13 - Family History Sibling Cancer - Brother is from cancer that started in his leg, - - The patient's father at age of 85 with a history of congestive heart failure. The patient's mother at the age of 85 due to septic shock from urinary tract infection. Smoking Status: Never smoker Tobacco Use: Non-smoker Review of Systems Constitutional: Denies: Chills, Fever, Weight Change Eyes: Denies: Pain, Vision Change HEENT: Denies: Difficulty Hearing, Difficulty Swallowing, Sinus Congestion Cardiovascular: Denies: Chest Pain, Palpitations Respiratory: Denies: Cough, Shortness of Breath Gastrointestinal: Denies: Diarrhea, Nausea, Vomiting Genitourinary: Denies: Dysuria, Hematuria Endocrine: Denies: Heat/ Cold Intolerance, Polydipsia, Polyuria Hematologic/ Lymphatic: Denies: Easy Bruising, Easy Bleeding - Physical Exam Vital Signs Temp Pulse Resp BP 97.3 F L 75 18 140/71 H 11/16/17 09:41 11/16/17 09:41 11/16/17 09:41 11/16/17 09:41 General: Alert, Oriented x3, Cooperative, No apparent distress, Well developed, Well nourished HEENT: Atraumatic, PERRLA, EOMI, Normocephalic Oral: Moist Mucosa Neck: No JVD Lungs: Normal air movement Abdomen: Soft, Distended, - - Significant abdominal distention is noted today. Extremities: No clubbing, No cyanosis, No edema, No Calf Tenderness, - - There is no significant swelling or edema in either lower extremity. There are no open ulcerations or wounds on either lower extremity. There is no sign of infection or cellulitis. Minor ecchymoses are noted in the distal right lower extremity. Wound Measurements and Assessment WC - Nurse 1 - General Ulcer Measurement Start: 10/21/17 13:50 Freq: Status: Active Protocol: Activity Type Activity Date Activity User E-Sign Co-Sign Detail Recorded Client Recorded Date Recorded By Document 11/16/17 09:41 [email or web address] [id number] 11/16/17 09:43 Wound Center Nurse 1 [Ulcer Assessment] #1- RT LAT GONZALEZ -Combined with other wound No -Current Size (cm) - Length 0 - Nurse 2 - General Ulcer CM Notes Start: 10/21/17 13:50 Freq: Status: Active Protocol: Activity Type Activity Date Activity User E-Sign Co-Sign Detail Recorded Client Recorded Date Recorded By Document 11/16/17 10:01 [id number] 11/16/17 10:01 Wound Center Nurse 2 Musculoskeletal: No Muscle Wasting Neurological: Cranial nerves II-XII grossly intact, Neuro grossly intact Psych/Mental Status: Normal Affect, Appropriate, Alert and oriented to time, place, person, mood and affect Debridement Note Post-Debridement Measurements/Treatment - Nurse 2 - General Ulcer CM Notes Start: 10/21/17 13:50 Freq: Status: Active Protocol: Activity Type Activity Date Activity User E-Sign Co-Sign Detail Recorded Client Recorded Date Recorded By Document 10/26/17 12:46 [email or web address] [id number] 10/26/17 12:47 Wound Center Nurse 2 Wound Center Nurse 2 No debridement was completed today Assessment/Plan Active Problems Venous insufficiency (chronic) (peripheral) (Chronic) Swelling of lower extremity (Chronic) Dependent edema (Chronic) Ascites (Acute) Abdominal distension (Acute) Bilateral leg edema (Chronic) Assessment: This is a 72-year-old female with bilateral lower extremity swelling and edema in her lower extremities. As result of the severe swelling and edema in the left lower extremity, the patient developed several blisters, which subsequently spontaneously burst. They are now currently healed and fully epithelialized. There are no open wounds or ulcerations at this time. The swelling and edema in the lower extremities appears to be well controlled with current measures. The patient has been advised to modify her lifestyle habits, and the measures to be undertaken have been thoroughly explained. She is to continue sleeping on a flat mattress at night. She is to elevate her legs to heart level, or higher, as much as possible during daytime hours. Activity has been encouraged. The patient has been discouraged from prolonged idle sitting and standing. Significant progress has been made in diminishing the swelling and edema in the patient's lower extremities. Her severe ascites, and the apparent reaccumulation of ascitic fluid within the abdominal cavity appear to be a significant current medical problem. She is currently under management by other providers in this regard. She has an appointment with Dr. Castillo tomorrow, at which time she is to learn more about the etiology and prognosis regarding her recurring ascites. Plan: Conservative treatment measures are to be continued. These have been discussed with the patient thoroughly. She is to elevate her lower extremities as much as possible. Elevation is to be to heart level, or higher. She is to sleep on a flat mattress at night, rather than in a recliner. Leg elevation has been encouraged, even during daytime hours, as much as possible. The patient is to refrain from prolonged idle sitting. Activity has been encouraged. Weight loss has been recommended. Optimization of the patient's nutrition, and optimization of the patient's glycemic control has also been recommended. Compression is to be implemented by means of 3M 2 layer compression wraps on both lower extremities, which will be changed twice weekly. The patient has been measured for CircAid compression garments bilaterally, which are awaited, and should be available soon. Patient is to return in 1 week for reevaluation. It is anticipated that modification of the patient's lifestyle will likely result in decrease in her lower extremity swelling. Discussed importance of tight blood sugar control, adequate nutrition especially increased protein intake, to promote healing. Discussed importance of edema control--recommended leg elevation above her heart while resting or sleeping, avoiding idle sitting or standing, compression of at least 20-30 mmHg, increased activity, weight management. We will await the results of evaluation regarding the patient's abdominal ascites. Influenza vaccine was not administered today. The patient is not a smoker. The patient stands 5 feet 2 inches tall. She weighs 207 pounds. Her BMI is 37.9, which places her in an obese class II category. Weight loss has been recommended, the patient has been encouraged to collaborate with her primary care physician in this regard. 11/16/17 1012 <Electronically signed by Jose Alfredo Barnett MD> Date Jose Alfredo Barnett MD CC: Signed WOUND CTR HISTORY Observed: 11/09/2017 Status: F Source: REJI AND PHYSICAL 10:06 AM [facility] REPOSITORY [facility] [address] [place] [id number] [facility] History AND Physical 11/09/17 0956 MR#: [id number] Acct: [id number] Name: ANITA MCCALLUM Rep #: [id number] : 1945 72 From: Jose Alfredo Barnett MD PCP: Nicola Bay MD Status: REG RCR Y Location: WC (1) Venous insufficiency (chronic) (peripheral) Status: Chronic Current Visit: Yes Code(s): I87.2 - Venous insufficiency (chronic) (peripheral) (2) Non-pressure chronic ulcer of other part of left lower leg limited to breakdown of skin Status: Chronic Current Visit: Yes Code(s): L97.821 - Non-pressure chronic ulcer of other part of left lower leg limited to breakdown of skin (3) Chronic ulcer of leg with fat layer exposed Status: Chronic Current Visit: Yes Qualifiers: Laterality: left Qualified Code(s): L97.922 - Non-pressure chronic ulcer of unspecified part of left lower leg with fat layer exposed Code(s): L97.902 - Non-pressure chronic ulcer of unspecified part of unspecified lower leg with fat layer exposed (4) Blister of left leg without infection Status: Chronic Current Visit: Yes Qualifiers: Encounter type: subsequent encounter Qualified Code(s): S80.822D - Blister (nonthermal), left lower leg, subsequent encounter Code(s): S80.822A - Blister (nonthermal), left lower leg, initial encounter (5) Non-pressure chronic ulcer of other part of left lower leg with fat layer exposed Status: Chronic Current Visit: Yes Code(s): L97.822 - Non-pressure chronic ulcer of other part of left lower leg with fat layer exposed (6) History of breast cancer Status: Chronic Current Visit: No Code(s): Z85.3 - Personal history of malignant neoplasm of breast (7) Swelling of lower extremity Status: Chronic Current Visit: Yes Code(s): M79.89 - Other specified soft tissue disorders (8) Dependent edema Status: Chronic Current Visit: Yes Code(s): R60.9 - Edema, unspecified (9) Ascites Status: Acute Current Visit: No Code(s): R18.8 - Other ascites (10) Abdominal distension Status: Acute Current Visit: No Code(s): R14.0 - Abdominal distension (gaseous) (11) Chronic kidney disease (CKD) Status: Chronic Current Visit: No Qualifiers: Code(s): N18.9 - Chronic kidney disease, unspecified (12) Protein malnutrition Status: Chronic Current Visit: No Code(s): E46 - Unspecified protein-calorie malnutrition (13) CKD (chronic kidney disease) stage 4, GFR 15-29 ml/min Status: Chronic Current Visit: No Code(s): N18.4 - Chronic kidney disease, stage 4 (severe) (14) Pancytopenia Status: Acute Current Visit: No Code(s): D61.818 - Other pancytopenia (15) Hypercalcemia Status: Acute Current Visit: No Code(s): E83.52 - Hypercalcemia (16) Breast CA Status: Chronic Current Visit: No Code(s): C50.919 - Malignant neoplasm of unspecified site of unspecified female breast (17) TIA (transient ischemic attack) Status: Chronic Current Visit: No (18) DM2 (diabetes mellitus, type 2) Status: Chronic Current Visit: No Code(s): E11.9 - Type 2 diabetes mellitus without complications (19) Bilateral leg edema Status: Chronic Current Visit: Yes Code(s): R60.0 - Localized edema (20) Type 2 diabetes mellitus with other circulatory complications Status: Chronic Current Visit: No Code(s): E11.59 - Type 2 diabetes mellitus with other circulatory complications (21) Benign essential HTN Status: Chronic Current Visit: No Code(s): I10 - Essential (primary) hypertension History of Present Illness Date of Service: 11/09/17 Chief Complaint: Chronic swelling and edema in the lower extremities, with superficial ulcerations and blisters of the left lower extremity History of Wound: This is a 72-year-old female who [facility] since late June 2017. She has been treated for swelling and edema in her lower extremities, associated with blisters and superficial ulcerations. She is currently being managed by the use of 3M 2 layer compression wraps. Venous duplex examination, performed on August 02, 2017, revealed incompetence of the right great saphenous vein, and the left great saphenous vein below the knee. A noninvasive lower extremity arterial study was normal, revealing no evidence of significant arterial occlusive disease in the lower extremities. Of note, the patient began sleeping in a recliner, in an upright position, approximately 1 year ago. She claims to be relatively active, but otherwise spends significant amounts of time each day in an idle sitting position. She has been treated for ulcerations and blisters in the right lower extremity, which are completely healed. Blisters and ulcerations persisted in the left lower extremity, but subsequently healed. The patient presents today with significant clinical changes. There is now breakdown and abrasions on the right anterior tibial surface, associated with new blisters. It appears as though this is related to shifting of her 3M 2 layer compression wraps. The patient has undergone recent laboratory testing, with results as follows: White blood count 3.1, hemoglobin 10.9, hematocrit 33.7, platelets 98,000, sodium 141, potassium 4.1, chloride 109, BUN 29, creatinine 1.36, glucose 129, calcium 10.6, total bilirubin 1.10, AST 37, ALT 31, alkaline phosphatase 181, total protein 7.2, albumin 3.1. As an aside, the patient has developed severe abdominal distention within the last month. This was thought to be due to the accumulation of ascites. An abdominal ultrasound examination was performed on October 16, 2017, revealing hepatic steatosis, ascites, and splenomegaly. A recent abdominal x-ray was relatively unremarkable. The patient has undergone paracentesis of the ascites fluid on several occasions, with removal of large amounts of ascitic fluid. She is under the care of other providers, including Dr. Castillo, a mounter sousaphones. It is suspected that the lower extremity swelling is due to dependency, as well as metabolic factors. 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 lower leg limited to breakdown of skin (Chronic) Chronic ulcer of leg with fat layer exposed (Chronic) Blister of left leg without infection (Chronic) Non-pressure chronic ulcer of other part of left lower leg with fat layer exposed (Chronic) History of breast cancer (Chronic) Swelling of lower extremity (Chronic) Dependent edema (Chronic) Chronic kidney disease (CKD) (Chronic) Protein malnutrition (Chronic) CKD (chronic kidney disease) stage 4, GFR 15-29 ml/min (Chronic) Breast CA (Chronic) TIA (transient ischemic attack) (Chronic) DM2 (diabetes mellitus, type 2) (Chronic) Bilateral leg edema (Chronic) 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 She is a Ab0. Allergies/Adverse Reactions: Allergies clarithromycin [From Biaxin] Allergy (Verified 10/22/17 14:31) Unknown iodine Allergy (Verified 10/22/17 14:31) Unknown Home Medications: Ambulatory Orders Medication Instructions Recorded Aspirin [Aspirin, Baby] 81 mg PO DAILY@0800 08/08/13 - Family History Sibling Cancer - Brother is from cancer that started in his leg, - - The patient's father at age of 85 with a history of congestive heart failure. The patient's mother at the age of 85 due to septic shock from urinary tract infection. Smoking Status: Never smoker Tobacco Use: Non-smoker Review of Systems Constitutional: Denies: Chills, Fever, Weight Change Eyes: Denies: Pain, Vision Change HEENT: Denies: Difficulty Hearing, Difficulty Swallowing, Sinus Congestion Cardiovascular: Denies: Chest Pain, Palpitations Respiratory: Denies: Cough, Shortness of Breath Gastrointestinal: Denies: Diarrhea, Nausea, Vomiting Genitourinary: Denies: Dysuria, Hematuria Endocrine: Denies: Heat/ Cold Intolerance, Polydipsia, Polyuria Hematologic/ Lymphatic: Denies: Easy Bruising, Easy Bleeding - Physical Exam Vital Signs Temp Pulse Resp BP 97.3 F L 93 18 127/90 H 11/09/17 09:18 11/09/17 09:18 11/09/17 09:18 11/09/17 09:18 General: Alert, Oriented x3, Cooperative, No apparent distress, Well developed, Well nourished HEENT: Atraumatic, PERRLA, EOMI, Normocephalic Oral: Moist Mucosa Neck: No JVD Lungs: Normal air movement Abdomen: Non-Distended Extremities: No clubbing, No cyanosis, No Calf Tenderness, Edema, - - Moderate swelling and edema persist in the lower extremities bilaterally. Patient presents now with new abrasions and breakdown on the right anterior tibial surface. This appears due to shifting of her compression wraps. Circumference measurements and dimensions are documented elsewhere. There is no sign of infection or cellulitis. Wound Measurements and Assessment WC - Nurse 1 - General Ulcer Measurement Start: 10/21/17 13:50 Freq: Status: Active Protocol: Activity Type Activity Date Activity User E-Sign Co-Sign Detail Recorded Client Recorded Date Recorded By Document 11/09/17 09:18 DONALDO [id number] 11/09/17 09:21 DONALDO - Nurse 2 - General Ulcer CM Notes Start: 10/21/17 13:50 Freq: Status: Active Protocol: Activity Type Activity Date Activity User E-Sign Co-Sign Detail Recorded Client Recorded Date Recorded By Document 11/09/17 09:48 SERGIO [id number] 11/09/17 09:49 SERGIO Wound Center Nurse 2 [Procedure/Treatment] #1- RT LAT GONZALEZ -Time 09:48 -Correct Patient Yes Neurological: Cranial nerves II-XII grossly intact, Neuro grossly intact Psych/Mental Status: Normal Affect, Appropriate, Alert and oriented to time, place, person, mood and affect Debridement Note Post-Debridement Measurements/Treatment - Nurse 2 - General Ulcer CM Notes Start: 10/21/17 13:50 Freq: Status: Active Protocol: Activity Type Activity Date Activity User E-Sign Co-Sign Detail Recorded Client Recorded Date Recorded By Wound Center Nurse 2 No debridement was completed today Assessment/Plan Active Problems Venous insufficiency (chronic) (peripheral) (Chronic) Non-pressure chronic ulcer of other part of left lower leg limited to breakdown of skin (Chronic) Chronic ulcer of leg with fat layer exposed (Chronic) Blister of left leg without infection (Chronic) Non-pressure chronic ulcer of other part of left lower leg with fat layer exposed (Chronic) Swelling of lower extremity (Chronic) Dependent edema (Chronic) Bilateral leg edema (Chronic) Assessment: This is a 72-year-old female with bilateral lower extremity swelling and edema in her lower extremities. As result of the severe swelling and edema in the left lower extremity, the patient developed several blisters, which subsequently spontaneously burst. They are now currently healed and fully epithelialized. However, the patient has now developed blistering and breakdown on the right anterior tibial surface. The patient has been advised to modify her lifestyle habits, and the measures to be undertaken have been thoroughly explained. She is to continue sleeping on a flat mattress at night. She is to elevate her legs to heart level, or higher, as much as possible during daytime hours. Activity has been encouraged. The patient has been discouraged from prolonged idle sitting and standing. Significant progress has been made in diminishing the swelling and edema in the patient's lower extremities. Her severe ascites, and the apparent reaccumulation of ascitic fluid within the abdominal cavity appear to be a significant current medical problem. She is currently under management by other providers in this regard. Plan: Conservative treatment measures are to be continued. These have been discussed with the patient thoroughly. She is to elevate her lower extremities as much as possible. Elevation is to be to heart level, or higher. She is to sleep on a flat mattress at night, rather than in a recliner. Leg elevation has been encouraged, even during daytime hours, as much as possible. The patient is to refrain from prolonged idle sitting. Activity has been encouraged. Weight loss has been recommended. Optimization of the patient's nutrition, and optimization of the patient's glycemic control has also been recommended. Compression is to be implemented by means of an on the right lower extremity, and a 3M 2 layer compression wrap on the left lower extremity. These wraps are to be changed twice weekly. Concurrently, the patient is to be measured, and an attempt will be made to secure her CircAid compression wraps for the lower extremities, which can be used by the patient long-term following her subsequent discharge. Patient is to return in 1 week for reevaluation. It is anticipated that modification of the patient's lifestyle will likely result in decrease in her lower extremity swelling. Discussed importance of tight blood sugar control, adequate nutrition especially increased protein intake, to promote healing. Discussed importance of edema control--recommended leg elevation above her heart while resting or sleeping, avoiding idle sitting or standing, compression of at least 20-30 mmHg, increased activity, weight management. We will await the results of evaluation regarding the patient's abdominal ascites. Influenza vaccine was not administered today. The patient is not a smoker. The patient stands 5 feet 2 inches tall. She weighs 207 pounds. Her BMI is 37.9, which places her in an obese class II category. Weight loss has been recommended, the patient has been encouraged to collaborate with her primary care physician in this regard. 11/09/17 1006 <Electronically signed by Jose Alfredo Barnett MD> Date Jose Alfredo Barnett MD CC: Signed CALCULI, URINARY W / Collected: 11/05/2017 Status: F Source: REJI PHOTO 10:57 AM [facility] REPOSITORY TYPE CODE TESTS RESULT OUT OF RANGE REFERENCE UNITS LAB L3650.0200 . Normal COLOR [place] LAB L3650.0300 . mm Normal SIZE 4x4x3 LAB L3650.0400 . mg Normal WEIGHT 41.5 LAB L3650.0500 . Normal . Comment Result Comment: Percentage (Represents the % composition) LAB L3650.0600 . CA OXAL DIHYDR Test Normal not performed LAB L3650.0700 . CA OXAL Test Normal MONOHYD not performed LAB L3650.0800 . CA PHOSPHATE Test Normal not performed LAB L3650.0900 . MAG SKIP PHOS Test Normal not performed LAB L3650.1000 . % URIC ACID 100 Normal LAB L3650.1100 . URIC ACID Test Normal DIHYD not performed LAB L3650.1200 . AMM ACID URATE Test Normal not performed LAB L3650.1300 . NA ACID URATE Test Normal not performed LAB L3650.1400 . CA HYDROG PHOS Test Normal not performed LAB L3650.1500 . CYSTINE Test Normal not performed LAB L3650.1600 . CHOLESTEROL Test Normal not performed LAB L3650.1700 . CA Test Normal BILIRUBINATE not performed LAB L3650.1800 . CA CARBONATE Test Normal not performed LAB L3650.1900 . TRIAMTERENE Test Normal not performed LAB L3650.2000 . NEWBERYITE Test Normal not performed LAB L3650.2100 . DRIED BLOOD Test Normal not performed LAB L3650.2200 . CELL MATERIAL Test Normal not performed LAB L3650.2250 . NIDUS Normal Comment Result Comment: Nidus composed of Uric acid. LAB L3650.2325 . Normal Test not SHELL performed LAB L3650.2350 . Normal Test not SURFACE performed [facility] LAB L3650.2400 . Normal Test not COMMENT performed LAB L3650.2500 . Normal Test not COMMENT performed LAB L3650.2600 . Normal Comment PHOTO Result Comment: Photograph will follow under separate cover. LAB L3650.2700 . Normal COMMENT Comment Result Comment: Physician questions regarding Calculi Analysis contact [facility] at: [phone]. LAB L3650.2800 . Normal COMMENT Comment Result Comment: Calculi report with photograph will follow via computer, mail or nuclear supervising operator delivery. LAB L3650.2900 . Normal Disclaimer Comment Result Comment: This test was developed and its performance characteristics determined by [facility]. It has not been cleared or approved by the Food and Drug Administration. Performed at: [address] [id number] Tone Cabinet Assembler: Daniel Man MD, Phone: [phone] Performed By: #### L3650.0100 #### [facility] (refer to report for specific site) refer to report for address and phone number ABDOMEN/PELVIS WITHOUT Observed: 11/03/2017 Status: F Source: REJI CONT 9:59 AM [facility] REPOSITORY [facility] [address] [place] [address] Abdomen/Pelvis without Cont MR#: [id number] Acct: [id number] Name: ANITA MCCALLUM Rep #: [id number] : 1945 F 72 From: Rigo Britt MD PCP: Nicola Bay MD Status: REG CLI Study: Abdomen/Pelvis without Cont Date of Exam: 11/03/17 Exam# [id number] Ordering Dr: Iveth Woody EQUAL OPPORTUNITY SPECIALIST-C STUDY: CT ABDOMEN AND PELVIS WITHOUT CONTRAST REASON FOR EXAM: Female, 72 years old. Right flank pain. Kidney stone. RADIATION DOSAGE (If Supplied By Facility): CTDIvol = ( 20.80 ) mGy, DLP = ( 1086.15 ) mGycm TECHNIQUE: Transaxial images were obtained from the dome of the diaphragm to the symphysis pubis without oral contrast, and without intravenous contrast. Sagittal and coronal images were reconstructed. Individualized dose optimization techniques were used for this CT. COMPARISON: Comparison is made with prior study dated April 12, 2017. FINDINGS: The visualized lung bases are unremarkable. Coronary artery calcification. Diffuse ascites. Perihepatic and perisplenic fluid. There is a diffuse contour abnormality of the liver consistent with cirrhotic changes. There are multiple gallstones. There is moderate splenomegaly. Normal pancreas. Normal bilateral adrenal glands. Punctate calcification in the upper pole calyx of the right kidney. Punctate calcification in the midportion of the right kidney. 2 mm calculi is in the lower pole calyx of the right kidney. Mild degree of right hydronephrosis and hydroureter due to a 2.5 mm calculus in the proximal portion of the right ureter. Nonobstructive 3 mm calculi in the lower pole of the left kidney. Large hiatal hernia. Normal small intestine. There are multiple colonic diverticula consistent with diverticulosis. The appendix is visualized and appears normal. There is diffuse atherosclerotic calcification of the abdominal aorta and its major visceral branches, without a demonstrated aneurysm. Normal inferior vena cava. Normal retroperitoneum. Normal urinary bladder. Normal abdominal wall. Disc space narrowing and degeneration at the L5-S1 level. CT/Abdomen/Pelvis without Cont IMPRESSION: Diffuse ascites. Bilateral nonobstructive intrarenal calculi. 2.5 mm calculus in the mid portion of the right ureter causing right hydronephrosis. Electronically Signed: Rigo Britt MD at 11:24 EDT Tel [phone], Service support , CC: Nicola Bay MD; Iveth Woody NP Dosimetrist: Signed ABDOMEN SINGLE VIEW Observed: 11/02/2017 Status: F Source: REJI 4:05 PM [facility] REPOSITORY [facility] [address] [place] [address] Abdomen Single View MR#: [id number] Acct: [id number] Name: ANITA MCCALLUM Rep #: [id number] : 1945 F 72 From: Fabricio Short DO PCP: Nicola Bay MD Status: REG CLI Study: Abdomen Single View Date of Exam: 11/02/17 Exam# [id number] Ordering Dr: Rob Busby MD STUDY: X-RAY - ABDOMEN/PELVIS REASON FOR EXAM: Female, 72 years old. Right kidney stone TECHNIQUE: 2 views COMPARISON: None. FINDINGS: Normal visualized lung bases. There is an unremarkable bowel gas pattern. There is no demonstrated free abdominal air. No definite calcifications are seen over the renal shadows. Normal soft tissue structures. Normal visualized osseous structures. RAD/Abdomen Single View IMPRESSION: No identifiable renal calculi. Electronically Signed: Fabricio Short DO at 22:39 EDT Tel [phone], Service support , CC: Rob Busby MD; Nicola Bay MD Dosimetrist: Signed WOUND CTR HISTORY Observed: 11/02/2017 Status: F Source: REJI AND PHYSICAL 9:32 AM [facility] REPOSITORY [facility] [address] [place] [address] Wound Ctr History AND Physical 11/02/17 0922 MR#: [id number] Acct: [id number] Name: ANITA MCCALLUM Rep #: [id number] : 1945 72 From: Jose Alfredo Barnett MD PCP: Nicola Bay MD Status: REG RCR Y Location: (1) Venous insufficiency (chronic) (peripheral) Status: Chronic Current Visit: Yes Code(s): I87.2 - Venous insufficiency (chronic) (peripheral) (2) Non-pressure chronic ulcer of other part of left lower leg limited to breakdown of skin Status: Chronic Current Visit: Yes Code(s): L97.821 - Non-pressure chronic ulcer of other part of left lower leg limited to breakdown of skin (3) Chronic ulcer of leg with fat layer exposed Status: Chronic Current Visit: Yes Qualifiers: Laterality: left Qualified Code(s): L97.922 - Non-pressure chronic ulcer of unspecified part of left lower leg with fat layer exposed Code(s): L97.902 - Non-pressure chronic ulcer of unspecified part of unspecified lower leg with fat layer exposed (4) Blister of left leg without infection Status: Chronic Current Visit: Yes Qualifiers: Encounter type: subsequent encounter Qualified Code(s): S80.822D - Blister (nonthermal), left lower leg, subsequent encounter Code(s): S80.822A - Blister (nonthermal), left lower leg, initial encounter (5) Non-pressure chronic ulcer of other part of left lower leg with fat layer exposed Status: Chronic Current Visit: Yes Code(s): L97.822 - Non-pressure chronic ulcer of other part of left lower leg with fat layer exposed (6) History of breast cancer Status: Chronic Current Visit: No Code(s): Z85.3 - Personal history of malignant neoplasm of breast (7) Swelling of lower extremity Status: Chronic Current Visit: Yes Code(s): M79.89 - Other specified soft tissue disorders (8) Dependent edema Status: Chronic Current Visit: Yes Code(s): R60.9 - Edema, unspecified (9) Ascites Status: Acute Current Visit: No Code(s): R18.8 - Other ascites (10) Abdominal distension Status: Acute Current Visit: No Code(s): R14.0 - Abdominal distension (gaseous) (11) Chronic kidney disease (CKD) Status: Chronic Current Visit: No Qualifiers: Code(s): N18.9 - Chronic kidney disease, unspecified (12) Protein malnutrition Status: Chronic Current Visit: No Code(s): E46 - Unspecified protein-calorie malnutrition (13) CKD (chronic kidney disease) stage 4, GFR 15-29 ml/min Status: Chronic Current Visit: No Code(s): N18.4 - Chronic kidney disease, stage 4 (severe) (14) Pancytopenia Status: Acute Current Visit: No Code(s): D61.818 - Other pancytopenia (15) Hypercalcemia Status: Acute Current Visit: No Code(s): E83.52 - Hypercalcemia (16) Breast CA Status: Chronic Current Visit: No Code(s): C50.919 - Malignant neoplasm of unspecified site of unspecified female breast (17) TIA (transient ischemic attack) Status: Chronic Current Visit: No (18) DM2 (diabetes mellitus, type 2) Status: Chronic Current Visit: No Code(s): E11.9 - Type 2 diabetes mellitus without complications (19) Bilateral leg edema Status: Chronic Current Visit: Yes Code(s): R60.0 - Localized edema (20) Type 2 diabetes mellitus with other circulatory complications Status: Chronic Current Visit: No Code(s): E11.59 - Type 2 diabetes mellitus with other circulatory complications (21) Benign essential HTN Status: Chronic Current Visit: No Code(s): I10 - Essential (primary) hypertension History of Present Illness Date of Service: 11/02/17 Chief Complaint: Chronic swelling and edema in the lower extremities, with superficial ulcerations and blisters of the left lower extremity History of Wound: This is a 72-year-old female who [facility]. She has been treated for swelling and edema in her lower extremities, associated with blisters and superficial ulcerations. She is currently being managed by the use of 3M 2 layer compression wraps. Venous duplex examination, performed on August 02, 2017, revealed incompetence of the right great saphenous vein, and the left great saphenous vein below the knee. A noninvasive lower extremity arterial study was normal, revealing no evidence of significant arterial occlusive disease in the lower extremities. Of note, the patient began sleeping in a recliner, in an upright position, approximately 1 year ago. She claims to be relatively active, but otherwise spends significant amounts of time each day in an idle sitting position. She has been treated for ulcerations and blisters in the right lower extremity, which are completely healed. Blisters and ulcerations persisted in the left lower extremity, and are now healed as of her current visit. The patient has undergone recent laboratory testing, with results as follows: White blood count 3.1, hemoglobin 10.9, hematocrit 33.7, platelets 98,000, sodium 141, potassium 4.1, chloride 109, BUN 29, creatinine 1.36, glucose 129, calcium 10.6, total bilirubin 1.10, AST 37, ALT 31, alkaline phosphatase 181, total protein 7.2, albumin 3.1. As an aside, the patient has developed severe abdominal distention within the last 2-3 weeks. This was thought to be due to the accumulation of ascites. An abdominal ultrasound examination was performed on October 16, 2017, revealing hepatic steatosis, ascites, and splenomegaly. A recent abdominal x-ray was relatively unremarkable. The patient has undergone paracentesis of the ascites fluid, and 10 L of fluid were removed. The patient went a second paracentesis 6 days ago, with another removal of approximately 4 L of ascites fluid. She is under the care of other providers, and has an appointment with Dr. Castillo in this regard in 2 weeks. The swelling and edema in the patient's lower extremities is markedly improved. Additionally, the superficial blisters in the left lower extremity are now completely healed and epithelialized. 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 lower leg limited to breakdown of skin (Chronic) Chronic ulcer of leg with fat layer exposed (Chronic) Blister of left leg without infection (Chronic) Non-pressure chronic ulcer of other part of left lower leg with fat layer exposed (Chronic) History of breast cancer (Chronic) Swelling of lower extremity (Chronic) Dependent edema (Chronic) Chronic kidney disease (CKD) (Chronic) Protein malnutrition (Chronic) CKD (chronic kidney disease) stage 4, GFR 15-29 ml/min (Chronic) Breast CA (Chronic) TIA (transient ischemic attack) (Chronic) DM2 (diabetes mellitus, type 2) (Chronic) Bilateral leg edema (Chronic) 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 She is a Ab0. Allergies/Adverse Reactions: Allergies clarithromycin [From Biaxin] Allergy (Verified 10/22/17 14:31) Unknown iodine Allergy (Verified 10/22/17 14:31) Unknown Home Medications: Ambulatory Orders Medication Instructions Recorded Aspirin [Aspirin, Baby] 81 mg PO DAILY@0800 08/08/13 - Family History Sibling Cancer - Brother is from cancer that started in his leg, - - The patient's father at age of 85 with a history of congestive heart failure. The patient's mother at the age of 85 due to septic shock from urinary tract infection. Smoking Status: Never smoker Tobacco Use: Non-smoker Review of Systems Constitutional: Denies: Chills, Fever, Weight Change Eyes: Denies: Pain, Vision Change HEENT: Denies: Difficulty Hearing, Difficulty Swallowing, Sinus Congestion Cardiovascular: Denies: Chest Pain, Palpitations Respiratory: Denies: Cough, Shortness of Breath Gastrointestinal: Denies: Diarrhea, Nausea, Vomiting Genitourinary: Denies: Dysuria, Hematuria Endocrine: Denies: Heat/ Cold Intolerance, Polydipsia, Polyuria Hematologic/ Lymphatic: Denies: Easy Bruising, Easy Bleeding - Physical Exam Vital Signs Temp Pulse Resp BP 97.8 F 68 18 146/79 H 11/02/17 08:53 11/02/17 08:53 11/02/17 08:53 11/02/17 08:53 General: Alert, Oriented x3, Cooperative, No apparent distress, Well developed, Well nourished HEENT: Atraumatic, PERRLA, EOMI, Normocephalic Oral: Moist Mucosa Neck: No JVD Lungs: Normal air movement Abdomen: Distended, - - Severe abdominal distention is noted. Extremities: No clubbing, No cyanosis, - - The swelling and edema in the patient's lower extremities appears to be markedly improved, and now minimized. Furthermore, the blisters in the distal left lower extremity are completely healed and epithelialized. There is no sign of infection or cellulitis. Circumference measurements are documented elsewhere, but are noted to be improved. Skin: No rashes, No breakdown Wound Measurements and Assessment WC - Nurse 1 - General Ulcer Measurement Start: 10/21/17 13:50 Freq: Status: Active Protocol: Activity Type Activity Date Activity User E-Sign Co-Sign Detail Recorded Client Recorded Date Recorded By Document 11/02/17 08:53 DV [id number] 11/02/17 08:59 DV Wound Center Nurse 1 [Ulcer Assessment] #2 LEFT GONZALEZ ULCER -Combined with other wound No -Current Size (cm) - Length 0.1 -Current Size (cm) - Width 0.1 WC - Nurse 2 - General Ulcer CM Notes Start: 10/21/17 13:50 Freq: Status: Active Protocol: Activity Type Activity Date Activity User E-Sign Co-Sign Detail Recorded Client Recorded Date Recorded By Document 11/02/17 09:12 JS [id number] 11/02/17 09:16 JS Wound Center Nurse 2 [Procedure/Treatment] #2 LEFT GONZALEZ ULCER -Time 09:12 -Correct Patient Yes Neurological: Cranial nerves II-XII grossly intact, Neuro grossly intact Psych/Mental Status: Normal Affect, Appropriate, Alert and oriented to time, place, person, mood and affect Debridement Note Post-Debridement Measurements/Treatment WC - Nurse 2 - General Ulcer CM Notes Start: 10/21/17 13:50 Freq: Status: Active Protocol: Activity Type Activity Date Activity User E-Sign Co-Sign Detail Wound Center Nurse 2 #2 LEFT GONZALEZ ULCER No debridement was completed today Assessment/Plan Active Problems Venous insufficiency (chronic) (peripheral) (Chronic) Non-pressure chronic ulcer of other part of left lower leg limited to breakdown of skin (Chronic) Chronic ulcer of leg with fat layer exposed (Chronic) Blister of left leg without infection (Chronic) Non-pressure chronic ulcer of other part of left lower leg with fat layer exposed (Chronic) Swelling of lower extremity (Chronic) Dependent edema (Chronic) Bilateral leg edema (Chronic) Assessment: This is a 72-year-old female with bilateral lower extremity swelling and edema in her lower extremities. As result of the severe swelling and edema in the left lower extremity, the patient developed several blisters, which subsequently spontaneously burst. They are now currently healed and fully epithelialized. The patient has been sleeping in a recliner. This appears to be a causative factor related to the swelling and edema in the patient's lower extremities. The patient has been advised to modify her lifestyle habits, and the measures to be undertaken have been thoroughly explained. She is to continue sleeping on a flat mattress at night. She is to elevate her legs to heart level, or higher, as much as possible during daytime hours. Activity has been encouraged. The patient has been discouraged from prolonged idle sitting and standing. Significant progress has been made in diminishing the swelling and edema in the patient's lower extremities. Her severe ascites, and the apparent reaccumulation of ascitic fluid within the abdominal cavity appear to be her most significant current medical problem. She is currently under management by other providers in this regard. Plan: Conservative treatment measures are to be continued. These have been discussed with the patient thoroughly. She is to elevate her lower extremities as much as possible. Elevation is to be to heart level, or higher. She is to sleep on a flat mattress at night, rather than in a recliner. Leg elevation has been encouraged, even during daytime hours, as much as possible. The patient is to refrain from prolonged idle sitting. Activity has been encouraged. Weight loss has been recommended. Optimization of the patient's nutrition, and optimization of the patient's glycemic control has also been recommended. Compression is to be implemented by means of a 3M 2 layer compression wraps to the lower extremities bilaterally, which will be changed twice weekly. Concurrently, the patient is to be measured, and an attempt will be made to secure her CircAid compression wraps for the lower extremities, which can be used by the patient long-term following her subsequent discharge. Patient is to return in 1 week for reevaluation. It is anticipated that modification of the patient's lifestyle will likely result in decrease in her lower extremity swelling. Discussed importance of tight blood sugar control, adequate nutrition especially increased protein intake, to promote healing. Discussed importance of edema control--recommended leg elevation above her heart while resting or sleeping, avoiding idle sitting or standing, compression of at least 20-30 mmHg, increased activity, weight management. We will await the results of evaluation regarding the patient's abdominal ascites. Influenza vaccine was not administered today. The patient is not a smoker. The patient stands 5 feet 2 inches tall. She weighs 207 pounds. Her BMI is 37.9, which places her in an obese class II category. Weight loss has been recommended, the patient has been encouraged to collaborate with her primary care physician in this regard. 11/02/17 0932 <Electronically signed by Jose Alfredo Barnett MD> Date Jose Alfredo Barnett MD CC: Signed PARACENTESIS WITH US Observed: 10/27/2017 Status: F Source: REJI 1:56 PM [facility] REPOSITORY [facility] Services [address] [place] [address] Paracentesis with US MR#: [id number] Acct: [id number] Name: ANITA MCCALLUM Rep #: [id number] : 1945 F 71 From: Rigo Britt MD PCP: Nicola Bay MD Status: REG CLI Study: Paracentesis with US Date of Exam: 10/27/17 Exam# [id number] Ordering Dr: Abimael Castillo MD PROCEDURE: Ultrasound guided paracentesis. DATE OF EXAMINATION: October 27, 2017. INDICATION: Female, 71 years old. Ascites. PHYSICIAN: Rigo Britt M.D. TECHNIQUE: The risks, benefits, and alternatives to the procedure were explained to the patient. The specific risks of bleeding, infection, and damage to bowel were detailed and accepted. Witnessed informed consent was obtained. The abdomen was ultrasonographically surveyed. An appropriate pocket of fluid was identified at the right lower quadrant. The skin were cleaned and prepped in the usual sterile fashion. Using ultrasound guidance, the peritoneal cavity was accessed with a 5-Welsh paracentesis needle/catheter system. The trocar was removed. A total of 3600 ml of harsh-colored fluid were removed from the peritoneal cavity. The catheter was removed and a sterile dressing was applied. The procedure was well tolerated. US/Paracentesis with US IMPRESSION: Ultrasound guided paracentesis. Electronically Signed: Rigo Britt MD at 15:20 EDT Tel [phone], Service support , CC: Nicola Bay MD; Abimael Castillo Dosimetrist: Signed WOUND CTR HISTORY Observed: 10/26/2017 Status: F Source: REJI AND PHYSICAL 1:07 PM [facility] REPOSITORY [facility] [address] [place] [address] Wound Ctr History AND Physical 10/26/17 1254 MR#: [id number] Acct: [id number] Name: ANITA MCCALLUM Rep #: [id number] : 1945 71 From: Jose Alfredo Barnett MD PCP: Nicola Bay MD Status: REG RCR Y Location: (1) Venous insufficiency (chronic) (peripheral) Status: Chronic Current Visit: Yes Code(s): I87.2 - Venous insufficiency (chronic) (peripheral) (2) Non-pressure chronic ulcer of other part of left lower leg limited to breakdown of skin Status: Chronic Current Visit: Yes Code(s): L97.821 - Non-pressure chronic ulcer of other part of left lower leg limited to breakdown of skin (3) Chronic ulcer of leg with fat layer exposed Status: Chronic Current Visit: Yes Qualifiers: Laterality: left Qualified Code(s): L97.922 - Non-pressure chronic ulcer of unspecified part of left lower leg with fat layer exposed Code(s): L97.902 - Non-pressure chronic ulcer of unspecified part of unspecified lower leg with fat layer exposed (4) Blister of left leg without infection Status: Chronic Current Visit: Yes Qualifiers: Encounter type: subsequent encounter Qualified Code(s): S80.822D - Blister (nonthermal), left lower leg, subsequent encounter Code(s): S80.822A - Blister (nonthermal), left lower leg, initial encounter (5) Non-pressure chronic ulcer of other part of left lower leg with fat layer exposed Status: Chronic Current Visit: Yes Code(s): L97.822 - Non-pressure chronic ulcer of other part of left lower leg with fat layer exposed (6) History of breast cancer Status: Chronic Current Visit: No Code(s): Z85.3 - Personal history of malignant neoplasm of breast (7) Swelling of lower extremity Status: Chronic Current Visit: Yes Code(s): M79.89 - Other specified soft tissue disorders (8) Dependent edema Status: Chronic Current Visit: Yes Code(s): R60.9 - Edema, unspecified (9) Ascites Status: Acute Current Visit: No Code(s): R18.8 - Other ascites (10) Abdominal distension Status: Acute Current Visit: No Code(s): R14.0 - Abdominal distension (gaseous) (11) Chronic kidney disease (CKD) Status: Chronic Current Visit: No Qualifiers: Code(s): N18.9 - Chronic kidney disease, unspecified (12) Protein malnutrition Status: Chronic Current Visit: No Code(s): E46 - Unspecified protein-calorie malnutrition (13) CKD (chronic kidney disease) stage 4, GFR 15-29 ml/min Status: Chronic Current Visit: No Code(s): N18.4 - Chronic kidney disease, stage 4 (severe) (14) Pancytopenia Status: Acute Current Visit: No Code(s): D61.818 - Other pancytopenia (15) Hypercalcemia Status: Acute Current Visit: No Code(s): E83.52 - Hypercalcemia (16) Breast CA Status: Chronic Current Visit: No Code(s): C50.919 - Malignant neoplasm of unspecified site of unspecified female breast (17) TIA (transient ischemic attack) Status: Chronic Current Visit: No (18) DM2 (diabetes mellitus, type 2) Status: Chronic Current Visit: No Code(s): E11.9 - Type 2 diabetes mellitus without complications (19) Non-pressure chronic ulcer of other part of right lower leg with fat layer exposed Status: Resolved Current Visit: No Code(s): L97.812 - Non-pressure chronic ulcer of other part of right lower leg with fat layer exposed (20) Bilateral leg edema Status: Chronic Current Visit: Yes Code(s): R60.0 - Localized edema (21) Type 2 diabetes mellitus with other circulatory complications Status: Chronic Current Visit: No Code(s): E11.59 - Type 2 diabetes mellitus with other circulatory complications (22) Benign essential HTN Status: Chronic Current Visit: No Code(s): I10 - Essential (primary) hypertension History of Present Illness Date of Service: 10/26/17 Chief Complaint: Chronic swelling and edema in the lower extremities, with superficial ulcerations and blisters of the left lower extremity History of Wound: This is a 71-year-old female who [facility]. She has been treated for swelling and edema in her lower extremities, associated with blisters and superficial ulcerations. She is currently being managed by the use of 3M 2 layer compression wraps. Venous duplex examination, performed on August 02, 2017, revealed incompetence of the right great saphenous vein, and the left great saphenous vein below the knee. A noninvasive lower extremity arterial study was normal, revealing no evidence of significant arterial occlusive disease in the lower extremities. Of note, the patient began sleeping in a recliner, in an upright position, approximately 1 year ago. She claims to be relatively active, but otherwise spends significant amounts of time each day in an idle sitting position. She has been treated for ulcerations and blisters in the right lower extremity, which are completely healed. Blisters and ulcerations persist in the left lower extremity, and are relatively recent. The patient has undergone recent laboratory testing, with results as follows: White blood count 3.1, hemoglobin 10.9, hematocrit 33.7, platelets 98,000, sodium 141, potassium 4.1, chloride 109, BUN 29, creatinine 1.36, glucose 129, calcium 10.6, total bilirubin 1.10, AST 37, ALT 31, alkaline phosphatase 181, total protein 7.2, albumin 3.1. As an aside, the patient has developed severe abdominal distention within the last 2-3 weeks. This was thought to be due to the accumulation of ascites. An abdominal ultrasound examination was performed on October 16, 2017, revealing hepatic steatosis, ascites, and splenomegaly. A recent abdominal x-ray was relatively unremarkable. Since last seen in our facility last week, the patient is undergone paracentesis of the ascites fluid, and 10 L of fluid were removed. The patient is scheduled to undergo paracentesis again tomorrow. The procedure was performed, and will again be performed tomorrow, at [facility]. The swelling and edema in the patient's lower extremities is markedly improved. 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 lower leg limited to breakdown of skin (Chronic) Chronic ulcer of leg with fat layer exposed (Chronic) Blister of left leg without infection (Chronic) Non-pressure chronic ulcer of other part of left lower leg with fat layer exposed (Chronic) History of breast cancer (Chronic) Swelling of lower extremity (Chronic) Dependent edema (Chronic) Chronic kidney disease (CKD) (Chronic) Protein malnutrition (Chronic) CKD (chronic kidney disease) stage 4, GFR 15-29 ml/min (Chronic) Breast CA (Chronic) TIA (transient ischemic attack) (Chronic) DM2 (diabetes mellitus, type 2) (Chronic) Bilateral leg edema (Chronic) 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 She is a Ab0. Allergies/Adverse Reactions: Allergies clarithromycin [From Biaxin] Allergy (Verified 10/22/17 14:31) Unknown iodine Allergy (Verified 10/22/17 14:31) Unknown Home Medications: Ambulatory Orders Medication Instructions Recorded Aspirin [Aspirin, Baby] 81 mg PO DAILY@0800 08/08/13 - Family History Sibling Cancer - Brother is from cancer that started in his leg, - - The patient's father at age of 85 with a history of congestive heart failure. The patient's mother at the age of 85 due to septic shock from urinary tract infection. Smoking Status: Never smoker Tobacco Use: Non-smoker Review of Systems Constitutional: Denies: Chills, Fever, Weight Change Eyes: Denies: Pain, Vision Change HEENT: Denies: Difficulty Hearing, Difficulty Swallowing, Sinus Congestion Cardiovascular: Denies: Chest Pain, Palpitations Respiratory: Denies: Cough, Shortness of Breath Gastrointestinal: Denies: Diarrhea, Nausea, Vomiting Genitourinary: Denies: Dysuria, Hematuria Endocrine: Denies: Heat/ Cold Intolerance, Polydipsia, Polyuria Hematologic/ Lymphatic: Denies: Easy Bruising, Easy Bleeding - Physical Exam Vital Signs Temp Pulse Resp BP 97.5 F L 78 16 166/79 H 10/26/17 12:05 10/26/17 12:05 10/26/17 12:05 10/26/17 12:05 General: Alert, Oriented x3, Cooperative, No apparent distress, Well developed, Well nourished HEENT: Atraumatic, PERRLA, EOMI, Normocephalic Oral: Moist Mucosa Neck: No JVD Lungs: Normal air movement Abdomen: Distended, - - Abdominal distention persists, but is markedly improved over that noted 1 week ago. Extremities: No clubbing, No cyanosis, No Calf Tenderness, - - The swelling and edema in the patient's lower extremities is markedly improved. Circumference measurements are improved bilaterally. There are no manuela open wounds, but very small superficial excoriations on the left lower extremity. There is no sign of infection or cellulitis in the lower extremities. Wound Measurements and Assessment WC - Nurse 1 - General Ulcer Measurement Start: 10/21/17 13:50 Freq: Status: Active Protocol: Activity Type Activity Date Activity User E-Sign Co-Sign Detail Recorded Client Recorded Date Recorded By Document 10/26/17 12:05 [email or web address] [id number] 10/26/17 12:16 Wound Center Nurse 1 [Ulcer Assessment] #2 LEFT GONZALEZ ULCER -Combined with other wound No - Nurse 2 - General Ulcer CM Notes Start: 10/21/17 13:50 Freq: Status: Active Protocol: Activity Type Activity Date Activity User E-Sign Co-Sign Detail Recorded Client Recorded Date Recorded By Document 10/26/17 12:46 [email or web address] [id number] 10/26/17 12:47 Wound Center Nurse 2 [Procedure/Treatment] #2 LEFT GONZALEZ ULCER -Correct Patient No -Correct Side, Site, Position No Neurological: Cranial nerves II-XII grossly intact, Neuro grossly intact Psych/Mental Status: Normal Affect, Appropriate, Alert and oriented to time, place, person, mood and affect Debridement Note Post-Debridement Measurements/Treatment - Nurse 2 - General Ulcer CM Notes Start: 10/21/17 13:50 Freq: Status: Active Protocol: Activity Type Activity Date Activity User E-Sign Co-Sign Detail Recorded Client Recorded Date Recorded By Document 10/26/17 12:46 [id number] 10/26/17 12:47 Wound Center Nurse 2 No debridement was completed today Assessment/Plan Active Problems Venous insufficiency (chronic) (peripheral) (Chronic) Non-pressure chronic ulcer of other part of left lower leg limited to breakdown of skin (Chronic) Chronic ulcer of leg with fat layer exposed (Chronic) Blister of left leg without infection (Chronic) Non-pressure chronic ulcer of other part of left lower leg with fat layer exposed (Chronic) Swelling of lower extremity (Chronic) Dependent edema (Chronic) Bilateral leg edema (Chronic) Assessment: This is a 71-year-old female with bilateral lower extremity swelling and edema in her lower extremities. As result of the severe swelling and edema in the left lower extremity, the patient developed several blisters, which have subsequently spontaneously burst, and are currently healing appropriately. These blisters appear related to the significant swelling and edema which was present in her lower extremities recently. The patient has been sleeping in a recliner. This appears to be a causative factor related to the swelling and edema in the patient's lower extremities. The patient has been advised to modify her lifestyle habits, and the measures to be undertaken have been thoroughly explained. She is to continue sleeping on a flat mattress at night. She is to elevate her legs to heart level, or higher, as much as possible during daytime hours. Activity has been encouraged. The patient has been discouraged from prolonged idle sitting and standing. Plan: Conservative treatment measures are to be continued. These have been discussed with the patient thoroughly. She is to elevate her lower extremities as much as possible. Elevation is to be to heart level, or higher. She is to sleep on a flat mattress at night, rather than in a recliner. Leg elevation has been encouraged, even during daytime hours, as much as possible. The patient is to refrain from prolonged idle sitting. Activity has been encouraged. Weight loss has been recommended. Optimization of the patient's nutrition, and optimization of the patient's glycemic control has also been recommended. Compression is to be implemented by means of a 3M 2 layer compression wrap to the right lower extremity, and an Unna boot to the left lower extremity. These multilayer compression wraps will be changed twice weekly, and the patient will return to our facility later this week for a change of her multilayer wraps. Patient is to return in 1 week for reevaluation. It is anticipated that modification of the patient's lifestyle will likely result in decrease in her lower extremity swelling. Discussed importance of tight blood sugar control, adequate nutrition especially increased protein intake, to promote healing. Discussed importance of edema control--recommended leg elevation above her heart while resting or sleeping, avoiding idle sitting or standing, compression of at least 20-30 mmHg, increased activity, weight management. We will await the results and the benefits of paracentesis for the patient's abdominal ascites. Influenza vaccine was not administered today. The patient is not a smoker. The patient stands 5 feet 2 inches tall. She weighs 207 pounds. Her BMI is 37.9, which places her in an obese class II category. Weight loss has been recommended, the patient has been encouraged to collaborate with her primary care physician in this regard. 10/26/17 1307 <Electronically signed by Jose Alfredo Barnett MD> Date Jose Alfredo Barnett MD CC: Signed 12 LEAD ELECTROCARDIOGRAM Observed: 10/25/2017 Status: F Source: TROY 2:17 PM [facility] REPOSITORY [facility] Cardiovascular Services [address] [place] [address] 12 Lead EKG 10/22/17 1536 MR#: [id number] Acct: [id number] Name: ANITA MCCALLUM Rep #: [id number] : 1945 71 From: Americo Gomez MD Attending Dr: Status: DEP ER Ordering Dr: Antonio Aguayo DO Date: 10/22/17 Location: ED Sex: F C Admitted: Test Reason : DIZZINESS Blood Pressure : / mmHG Vent. Rate : 066 BPM Atrial Rate : 066 BPM P-R Int : 000 ms QRS Dur : 088 ms QT Int : 408 ms P-R-T Axes : 000 010 009 degrees QTc Int : 427 ms Sinus rhythm Nonspecific T wave abnormality Abnormal ECG Confirmed by AMERICO GOMEZ MD ([id number]), publishing editor MARLEY ASHFORD ([id number]) on 10/25/2017 2:16:38 PM Referred By: WAI Confirmed By:AMERICO GOMEZ MD 10/25/17 1416 Date Americo Gomez MD CC: Nicola Bay MD; Antonio Aguayo DO Signed EMERGENCY DEPARTMENT Observed: 10/22/2017 Status: F Source: TROY SUMMARY 6:25 PM [facility] REPOSITORY [facility] Medical Records Department [address] [place] [address] Emergency Department Summary 10/22/17 1822 MR#: [id number] Acct: [id number] Name: ANITA MCCALLUM Rep #: [id number] : 1945 71 From: Antonio Aguayo DO PCP: Nicola Bay MD Status: REG ER - ER Visit Summary Date of Service: 10/22/17 Chief Complaint: [Dizziness and shortness of breath] History of Present Illness: The patient is a 71 F [presents to the emergency department with complaint of dizziness and shortness of breath that started after patient had a paracentesis performed in radiology. Patient apparently had 10 L of fluid taken off of her abdomen. Patient states that after the procedure she went to stand up and felt things moving shift in her abdomen and felt like she was having a hard time breathing. Patient had a chest x-ray there that did not show any pneumothorax. Patient was referred to the emergency department. Patient described feeling somewhat lightheaded. Patient states that on arrival she is feeling improved. Patient denies any abdominal pain at this time although with breathing initially she had some mild discomfort in the epigastric region.] Physical Examination: [HEENT-PERRLA, EOMI. Cranial nerves II through XII grossly intact. TMs clear. Mucous membranes moist. No adenopathy. Cardiovascular-regular rate and rhythm without murmur or ectopy Lungs-clear to auscultation, chest wall stable without crepitus or subcu emphysema Abdomen-normoactive bowel sounds, soft, nontender, no rebound or rigidity, no peritoneal signs. Extremities-intact 4, normal range of motion, normal pulses, atraumatic] Test Results: EKG obtained arrival showed a sinus rhythm with a ventricular rate [address] changes. CBC with differential showed a white blood cell count of 1.5, hemoglobin 10, hematocrit 31, platelets 68. Chemistries unremarkable. BUN was 23 and creatinine was 1.31. Troponin was less than 0.02. Urinalysis was normal. [Orthostatic vital signs were negative.] Emergency Department Course and Treatment: [Patient received normal saline at 1.5 cc an hour.] Treatment Plan: [Patient advised to follow-up with her primary care physician within next 3-5 days]. I suspect patient may have had a vasovagal episode. Disposition: [Discharged to home in stable condition.] Impression: [Dizziness-resolved Dyspnea-resolved] This note was generated with [employer] dictation software. It may contain incorrect words, spelling, and punctuation that were not noted in review of the chart prior to signing ED Disposition - Plan for ED Patient: Chief Complaint: Dizziness Referrals: Nicola Bay MD [Primary Care Provider] - What to do if you have Problems For any increased pain, shortness of breath, bleeding, nausea or vomiting, chest pain, or any unexpected problems, contact your Primary Care Provider. Call [facility] ([phone]) or report to the closest Emergency Room. Call 911 if necessary. 10/22/171824 <Electronically signed by Antonio Aguayo DO> Date Antonio Aguayo DO Cosigner Signature (If Indicated): Date CC: Nicola Bay MD DISCHARGE INSTRUCTION Observed: 10/22/2017 Status: F Source: TROY 6:25 PM [facility] REPOSITORY [facility] Medical Records Department [address] [place] [address] Discharge Instruction 10/22/171824 MR#: [id number] Acct: [id number] Name: ANITA MCCALLUM Rep #: [id number] : 1945 71 From: Antonio Aguayo DO PCP: Nicola Bay MD Status: REG ER ED Disposition - Plan for ED Patient: Chief Complaint: Dizziness Instructions: ED Dizziness [facility] Referrals: Nicola Bay MD [Primary Care Provider] - 3-5 Days What to do if you have Problems For any increased pain, shortness of breath, bleeding, nausea or vomiting, chest pain, or any unexpected problems, contact your Primary Care Provider. Call [facility] ([phone]) or report to the closest Emergency Room. Call 911 if necessary. 10/22/17 1825 <Electronically signed by Antonio Aguayo DO> Date Antonio Aguayo DO Cosigner Signature (If Indicated): Date CC: Nicola Bay MD URINALYSIS, COMPLETE Collected: 10/22/2017 Status: F Source: TROY 5:10 PM [facility] REPOSITORY Order Comment: Order Date: 10/22/17 How was Urine Obtained? CLEAN CATCH TYPE CODE TESTS RESULT OUT OF RANGE REFERENCE UNITS LAB L400.3000 Yellow COLOR Normal Yellow LAB L400.3050 Clear Normal CLARITY Clear LAB L400.3200 Normal mg/dl Normal GLUCOSE, UR Normal LAB L400.3300 Negative mg/dL Normal BILIRUBIN URINE Negative LAB L400.3400 Negative mg/dl Normal KETONE UR Negative LAB L400.3465 1.002-1.030 Normal SP.GR. DIPSTX 1.015 LAB L400.3550 5.0 - 8.0 pH UR Normal 8.0 LAB L400.3600 Negative mg/dl PROT Normal DIPSTX Negative LAB L400.3700 Normal mg/dl Normal UROBILI Normal LAB L400.3750 Negative Normal NITRITE UR Negative LAB L400.3780 Negative /ul Normal OCCULT BLOOD-UR Negative LAB L400.3800 Negative /ul High LEUK 25 ESTERASE LAB L400.4050 0-5 /hpf WBC Normal 0-5 SEEN LAB L400.4100 0-5 /hpf 0 Normal RBC-UA SEEN LAB L400.4150 5-10 /hpf SQUAM Normal EPI 0-5 SEEN LAB L400.4300 None Seen /hpf 0 Normal BACTERIA SEEN LAB L400.4350 <or=2+ /hpf 0 Normal MUCUS, URINE SEEN Performed By: #### L400.0001 #### [facility] [address] [place], [address] CBC W/DIFF, AUTOMATED Collected: 10/22/2017 Status: F Source: TROY 3:34 PM [facility] REPOSITORY TYPE CODE TESTS RESULT OUT OF RANGE REFERENCE UNITS LAB L100.1000 4.4-11.0 K/mm3 Low WBC 1.5 LAB L100.1200 4.2-5.4 M/mm3 Low RBC 3.23 LAB L100.1300 12.0-15.0 g/dl Low HGB 10.0 LAB L100.1400 37-47 % Low HCT 31.0 LAB L100.1500 81-99 fL Normal MCV 96.0 LAB L100.1600 27.0-32.0 pg Normal MCH 31.0 LAB L100.1700 32-36 g/gl Normal MCHC 32.3 LAB L100.1810 11.6-14.6 % High RDW CV 14.9 LAB L100.1820 35.1-43.9 fl High RDW SD 50.7 LAB L100.1900 150-450 K/mm3 Low PLT 68 LAB L100.2000 6.2-12.0 fl Normal MPV 9.9 LAB L100.2100 47-70 % Normal NEUT% 66.4 LAB L100.2200 19-41 % Normal LY% 22.7 LAB L100.2300 0-10 % Normal MONO% 7.1 LAB L100.2400 0-5 % Normal EO% 2.6 LAB L100.2500 0-1 % Normal BASO% 0.6 LAB L100.2550 0.0-0.9 % Normal IM GRAN % 0.600 Result Comment: IG% - Immature Granulocytes (promyelocytes, myelocytes and metamyelocytes) > 1% indicates that a LEFT SHIFT is Present. LAB L100.2620 2.0-7.7 X10 3/uL Low Absolute Neut 1.0 LAB L100.2720 0.83-4.51 X10 3/ul Low Absolute Lymph 0.35 LAB L100.4500 Normal SMEAR COMMENT SCANNED LAB L100.5500 ADEQ Normal PLT EST MOD DEC Performed By: #### L100.0100 #### [facility] [address] [place], [address] BASIC METABOLIC Collected: 10/22/2017 Status: F Source: REJI PROFILE (BMP) 3:34 PM [facility] REPOSITORY Order Comment: 'TROP' Serial specimen #1, #2, #3, or #4: 1 TYPE CODE TESTS RESULT OUT OF RANGE REFERENCE UNITS LAB L501.0100 74-106 mg/dL High GLU 135 Result Comment: Fasting Glucose result greater than or equal to 126 mg/dL suggests DIABETES MELLITUS per A.D.A. criteria. Please note revised GLUCOSE reference range effective 2017. LAB L501.1000 7-18 mg/dL High BUN 23 LAB L501.1100 0.55-1.02 mg/dL High CREAT,SERUM 1.31 Result Comment: The validity of the calculated GFR AND GFRAA in patients over 70 years has not been determined. Clinical correlation is essential. LAB L501.1110 >60 mL/min Low EST GFR 43 Result Comment: Non- GFR Calc LAB L501.1115 >60 mL/min Low EST GFR - AA 52 Result Comment: GFR Calc LAB L501.1255 ml/min Normal Estimated CRCL 31.60 LAB L501.1300 10-20 RATIO Normal BUN/CRE 17.6 LAB L501.2200 8.5-10 mg/dL High .1 CA 10.5 LAB L501.5300 136-14 mmol/L Normal 5 NA 143 LAB L501.5600 3.5-5. mmol/L Normal 1 K 3.9 LAB L501.5900 98-107 mmol/L High CL 108 LAB L501.6100 21.0-3 mmol/L Normal 2.0 CO2 31.0 LAB L501.6200 5-15 Low GAP 4 Performed By: #### L500.2500, L501.4010 #### [facility] [address] [place], [place], [address] TROPONIN-I Collected: 10/22/2017 Status: F Source: REJI 3:34 PM [facility] REPOSITORY Order Comment: 'TROP' Serial specimen #1, #2, #3, or #4: 1 TYPE CODE TESTS RESULT OUT OF RANGE REFERENCE UNITS LAB L501.4010 <0.06 ng/mL Normal < 0.02 TROPONIN-I Result Comment: TROPONIN-I EXPECTED VALUES <0.05 NEGATIVE 0.06 - 0.59 AT RISK OF NH > OR = 0.60 SUGGEST NH Performed By: #### L500.2500, L501.4010 #### [facility] [address] [place], [address] LDH,BODY FLUID Collected: 10/22/2017 Status: F Source: REJI 2:22 PM [facility] REPOSITORY Order Comment: Specimen Source: ASCITES TYPE CODE TESTS RESULT OUT OF RANGE REFERENCE UNITS LAB L504.0250 Not Establ. Units/l Normal LDH,BF 62 Performed By: #### L504.0250 #### [facility] [address] [place], [address] BODY FLUID CELL Collected: 10/22/2017 Status: C Source: REJI COUNT+DIFF 2:22 PM [facility] REPOSITORY Order Comment: PARACENTESIS FLUID. The reference range and other method performance specifications have not been established for this body fluid. The test must be integrated into the clinical context for interpretation. Specimen Source: ASCITES TYPE CODE TESTS RESULT OUT OF RANGE REFERENCE UNITS LAB L200.3380 0.000-0.000 10 3/ul High BFTC# 0.036 Result Comment: This is the Total Number of Nucleated Cell Types in the Body Fluid. LAB L200.3400 /mm3 Normal 2 RBC/BF LAB L200.3500 10 3/uL Normal 0.035 WBC/BF LAB L200.3510 % Normal 22.9 BF PMN WBC% LAB L200.3515 % Normal 77.1 BF MN WBC% LAB L200.3520 10 3/uL Normal 0.027 BF MN WBC# LAB L200.3525 10 3/uL Normal 0.008 BF PMN WBC# LAB L200.4400 Normal PATH COMM/BF Reviewed Result Comment: Negative for malignant cells. aVmsi Ramires M.D. 10/25/17 AMENDED REPORT 10/25/17 1352 PATH COMM/BF previously reported as: May follow LAB L200.3100 Normal SOURCE/BF ASCITES FLUID LAB L200.3200 Normal COLOR/BF YELLOW LAB L200.3300 Normal APPEAR/BF SL CLDY LAB L200.3600 % Normal PMN 3 LAB L200.3700 % Normal LYMPH 40 LAB L200.3800 % Normal MONO/BF 14 LAB L200.3900 % Normal MESOTHELIAL 22 LAB L200.3950 % Normal MACROPHAGES 21 LAB L200.4420 Normal BFM 2ND SPEC SEE COMMENT Performed By: #### L200.0200 #### [facility] [address] [place], [address] Observed: 10/22/2017 Status: F Source: TROY CULTURE, BODY FLUID 2:22 PM [facility] REPOSITORY List Antibiotics Last 48 Hours? . List Antibiotics to be Started? . Gram Stain Gram Stain No cells seen No organisms seen Body Fluid Cult No growth aerobically. Cult, Anaerobic No growth in 5 days. Performed By: #### M100.1300 #### [facility] [address] [place], [address] FLUID/WASHING Observed: 10/22/2017 Status: F Source: TROY 2:22 PM [facility] REPOSITORY Patient: ANITA MCCALLUM : 1945 (71/F) Acct Num: [id number] Phys: Abimael Casitllo Unit Num: [id number] Loc: Specimen: [id number] Received: 10/25/17 - 1159 Spec Type: Fluid TISSUES TISSUES: PARACENTESIS FLUID CYTOLOGY GROSS Received is 85 ml of slightly cloudy yellow fluid labeled with the patient's name and and designated per the requisition as paracentesis. Submitted for cytology preparation including cell block. / 10/25/17 TC:5 CPT: 65971, 14330 CYTOLOGY STUDY Slides are reviewed. The specimen consists of macrophages, mesothelial cells and inflammatory cells. DIAGNOSIS CYTOLOGY Paracentesis fluid for cytology (cytospin): Negative for malignant cells. SJ:ivy 10/26/17 HEADER OPERATION: Ultrasound-guided paracentesis PRE-OP DIAGNOSIS: Ascites TISSUE SUBMITTED: Paracentesis fluid for cytology Signed Vamsi Ramires 10/26/17 <signature on file> Performed By: #### PFLU #### [facility] [address] [place], [address] CYTOLOGY, BODY FLUID / Collected: 10/22/2017 Status: F Source: REJI CSF 2:22 PM [facility] REPOSITORY Order Comment: Specimen Source: ASCITES TYPE CODE TESTS RESULT OUT OF RANGE REFERENCE UNITS LAB L350.1000 SEE Normal PATHOLOGY CYTOLOGY,BF REPORT /CSF Result Comment: Specimen submitted to Anatomical Pathology Department for testing. Performed By: #### L350.1000 #### [facility] [address] [place], [address] MISCELLANEOUS LAB Collected: 10/22/2017 Status: F Source: TROY PROCEDURE 2 2:22 PM [facility] REPOSITORY Order Comment: Interface Comments: paracentesis fluid. List Test(s) Ordered by Physician: [id number] 2ml ref. TYPE CODE TESTS RESULT OUT OF RANGE REFERENCE UNITS LAB L801.1543 Normal MISC LAB TEST 2 Result Comment: TEST RESULT UNITS REF INTERVAL Lipase, Fluid 18 U/L INTERPRETIVE INFORMATION: Lipase, Fluid For information on body fluid reference ranges and/or interpretive guidance visit [email or web address] Test developed and characteristics determined by [employer] See Compliance Statement B: [email or web address]/ Albumin, Body Fluid 1.2 g/dL : Peritoneal : Pleural : Synovial : : : : : : : Transudate : Exudate : : : :___ : : : : Not Estab. : Not Estab. : Not Estab.: Not Estab. : : : : : : The method performance specifications have not been established for this test in body fluid. The test result should be integrated into the clinical context for interpretation. The reference intervals and other method performance specifications have not been established for this test. The test result should be integrated into the clinical context for interpretation. TESTING PERFORMED AT [facility]. ORIGINAL REPORT ON FILE IN LAB CONTAINS ADDITIONAL TEST SITE INFORMATION. Performed By: #### L801.1543 #### [facility] [address] [place], [place], [address] PROTEIN, BODY FLUID Collected: 10/22/2017 Status: F Source: TROY 2:22 PM [facility] REPOSITORY Order Comment: Specimen Source: PARACENTESIS FLUID TYPE CODE TESTS RESULT OUT OF RANGE REFERENCE UNITS LAB L503.0300 Not Establ. g/dL Normal 2.5 PROTEIN,BF Performed By: #### L503.0300 #### [facility] [address] [place], [address] MISCELLANEOUS LAB Collected: 10/22/2017 Status: F Source: TROY PROCEDURE 2:22 PM [facility] REPOSITORY Order Comment: Interface Comments: paracentesis fluid. Test(s) Ordered: [id number] 1ml room temp TYPE CODE TESTS RESULT OUT OF RANGE REFERENCE UNITS LAB L801.1541 Normal [facility] LAB TEST Result Comment: TEST RESULT LIMITS Lipase, Fluid 18 U/L INTERPRETIVE INFORMATION: Lipase, Fluid For information on body fluid reference ranges and/or interpretive guidance visit [email or web address] Test developed and characteristics determined by [facility]. See Compliance Statement B: [email or web address] TESTING PERFORMED AT [facility]. ORIGINAL REPORT ON FILE IN LAB CONTAINS ADDITIONAL TEST SITE INFORMATION. Performed By: #### L801.1541 #### [facility] [address] [place], [address] CHEST 1 VIEW Observed: 10/22/2017 Status: F Source: TROY 2:13 PM [facility] REPOSITORY [facility] Imaging Services [address] [place] [address] Chest 1 View MR#: [id number] Acct: [id number] Name: HALLEY MCCALLUMRA Palomares Rep #: [id number] : 1945 F 71 From: Samra Martinez MD PCP: Nicola Bay MD Status: REG CLI Study: Chest 1 View Date of Exam: 10/22/17 Exam# [id number] Ordering Dr: Samra Martinez MD STUDY: X-RAY CHEST REASON FOR EXAM: Female, 71 years old. tachypnea after thoracentesis TECHNIQUE: Single AP portable view of the chest. COMPARISON: None. FINDINGS: The lungs are clear and expanded. There is no demonstrated pleural abnormality. Normal size heart. Normal mediastinum and owen. Normal visualized pulmonary arteries. Normal visualized aortic arch and descending thoracic aorta. Normal visualized thoracic spine. Normal visualized ribs, clavicles, and shoulders. There is a hiatal hernia measures approximately 12 cm. RAD/Chest 1 View IMPRESSION: Large hiatal hernia. There is no evidence of pneumothorax. Electronically Signed: Samra Martinez MD at 14:46 EDT Tel , Service support , CC: Samra Martinez MD; Nicola Bay MD Dosimetrist: Signed PARACENTESIS WITH US Observed: 10/22/2017 Status: F Source: TROY 11:45 AM [facility] REPOSITORY [facility] Imaging Services [address] [place] [address] Paracentesis with US MR#: [id number] Acct: [id number] Name: ANITA MCCALLUM Rep #: [id number] : 1945 F 71 From: Samra Martinez MD PCP: Nicola Bay MD Status: REG CLI Study: Paracentesis with US Date of Exam: 10/22/17 Exam# [id number] Ordering Dr: Abimael Castillo MD PROCEDURE: ULTRASOUND GUIDED PARACENTESIS CLINICAL HISTORY: Female, 71 years old. ASCITES CONSENT: The risks, benefits and alternatives to the procedure were explained to the patient, and the patient agreed to the procedure and signed the consent. 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 PROCEDURE/TECHNIQUE: The risks, benefits, and alternatives to the procedure were explained to patient, and the patient agreed to the procedure and signed a consent form for the procedure. TECHNIQUE: Under the ultrasound guidance using sterile technique and after infiltration of the skin and subcutaneous soft tissues with 10 mL of lidocaine 1% a 5 Welsh drainage catheter is introduced in the lower part of the abdomen. 96986 mL of fluid were removed sample sent to lab for evaluation. The patient tolerated the procedure there was no immediate complication. FINDINGS: FLUID PRE-PROCEDURE There is posterior enhancement. The findings appear anechoic. There is no loculation. Volume measurement: 13725 ml. FLUID POST-PROCEDURE Amount of fluid drained: 19074 ml. US/Paracentesis with US IMPRESSION: Successful ultrasound-guided paracentesis. Electronically Signed: Samra Martinez MD at 14:47 EDT Tel , Service support , CC: Nicola Bay MD; Abimael Castillo Dosimetrist: Signed PROTHROMBIN TIME W/INR Collected: 10/20/2017 Status: F Source: REJI 9:58 AM [facility] REPOSITORY TYPE CODE TESTS RESULT OUT OF RANGE REFERENCE UNITS LAB L300.4150 11.7-14.9 SECONDS Normal PROTIME 14.0 LAB L300.4200 Normal INR 1.1 Performed By: #### L300.3900, L300.4310 #### [facility] [address] [place], [place], [address] PARTIAL THROMBOPLAST Collected: 10/20/2017 Status: F Source: REJI TIME 9:58 AM [facility] REPOSITORY TYPE CODE TESTS RESULT OUT OF RANGE REFERENCE UNITS LAB L300.4310 24.1-36.2 Seconds Normal PTT 30.4 Performed By: #### L300.3900, L300.4310 #### [facility] [address] [place], [place], [address] LIVER PROFILE Collected: 10/20/2017 Status: F Source: REJI 9:58 AM [facility] REPOSITORY TYPE CODE TESTS RESULT OUT OF RANGE REFERENCE UNITS LAB L501.1500 6.4-8.2 g/dL Normal T PROT 7.3 LAB L501.1800 3.2-5.0 g/dL Low ALB 3.1 LAB L501.1950 2.2-4.2 g/dL Normal GLOB 4.2 LAB L501.4100 15-37 U/L High AST 38 LAB L501.4305 45-117 U/L High ALK P 174 LAB L501.4405 13-56 U/L Normal ALT 32 LAB L501.4600 0.20-1.00 mg/dL Normal T BILI 1.00 LAB L501.4700 0.00-0.30 mg/dL Normal D BILI 0.21 Performed By: #### L500.3400 #### [facility] [address] [place], [address] PLATELET COUNT Collected: 10/20/2017 Status: F Source: TROY 9:58 AM [facility] REPOSITORY TYPE CODE TESTS RESULT OUT OF RANGE REFERENCE UNITS LAB L100.1900 150-450 K/mm3 Low PLT 78 Performed By: #### L100.1900 #### [facility] [address] [place], [address] ANTINUCLEAR ANTIBODIES Collected: 10/20/2017 Status: F Source: TROY DIRECT 9:58 AM [facility] REPOSITORY TYPE CODE TESTS RESULT OUT OF RANGE REFERENCE UNITS LAB L3100.5475 Negative Normal Negative JATIN-DIRECT Result Comment: Performed at: - [facility] [address] [id number] Tone Cabinet Assembler: Abimael Lopez PhD, Phone: [phone] Performed By: #### L3100.5475 #### [facility] (refer to report for specific site) refer to report for address and phone number WOUND CTR HISTORY Observed: 10/18/2017 Status: F Source: REJI AND PHYSICAL 3:06 PM [facility] REPOSITORY [facility] [address] [place] [address] Wound Ctr History AND Physical 10/18/17 1439 MR#: [id number] Acct: [id number] Name: HALLEY MCCALLUMRA Palomares Rep #: [id number] : 1945 71 From: Jose Alfredo Barnett MD PCP: Nicola Bay MD Status: REG RCR Y Location: WC (1) History of breast cancer Status: Chronic Current Visit: No Code(s): Z85.3 - Personal history of malignant neoplasm of breast (2) Swelling of lower extremity Status: Chronic Current Visit: Yes Code(s): M79.89 - Other specified soft tissue disorders (3) Dependent edema Status: Chronic Current Visit: Yes Code(s): R60.9 - Edema, unspecified (4) Venous insufficiency (chronic) (peripheral) Status: Chronic Current Visit: Yes Code(s): I87.2 - Venous insufficiency (chronic) (peripheral) (5) Non-pressure chronic ulcer of other part of left lower leg limited to breakdown of skin Status: Chronic Current Visit: Yes Code(s): L97.821 - Non-pressure chronic ulcer of other part of left lower leg limited to breakdown of skin (6) Chronic ulcer of leg with fat layer exposed Status: Chronic Current Visit: Yes Qualifiers: Laterality: left Code(s): L97.902 - Non-pressure chronic ulcer of unspecified part of unspecified lower leg with fat layer exposed (7) Blister of left leg without infection Status: Chronic Current Visit: Yes Qualifiers: Encounter type: initial encounter Qualified Code(s): S80.822A - Blister (nonthermal), left lower leg, initial encounter Code(s): S80.822A - Blister (nonthermal), left lower leg, initial encounter (8) Non-pressure chronic ulcer of other part of left lower leg with fat layer exposed Status: Chronic Current Visit: Yes Code(s): L97.822 - Non-pressure chronic ulcer of other part of left lower leg with fat layer exposed (9) Chronic kidney disease (CKD) Status: Chronic Current Visit: No Qualifiers: Chronic kidney disease stage: stage 4 (severe) Qualified Code(s): N18.4 - Chronic kidney disease, stage 4 (severe) Code(s): N18.9 - Chronic kidney disease, unspecified (10) CKD (chronic kidney disease) stage 4, GFR 15-29 ml/min Status: Chronic Current Visit: No Code(s): N18.4 - Chronic kidney disease, stage 4 (severe) (11) DM2 (diabetes mellitus, type 2) Status: Chronic Current Visit: No Code(s): E11.9 - Type 2 diabetes mellitus without complications (12) Bilateral leg edema Status: Chronic Current Visit: Yes Code(s): R60.0 - Localized edema (13) Benign essential HTN Status: Chronic Current Visit: No Code(s): I10 - Essential (primary) hypertension (14) Ascites Status: Acute Current Visit: Yes Code(s): R18.8 - Other ascites (15) Abdominal distension Status: Acute Current Visit: Yes Code(s): R14.0 - Abdominal distension (gaseous) History of Present Illness Date of Service: 10/18/17 Chief Complaint: Chronic swelling and edema in the lower extremities, with superficial ulcerations and blisters of the left lower extremity History of Wound: This is a 71-year-old female who [facility]. She has been treated for swelling and edema in her lower extremities, associated with blisters and superficial ulcerations. She is currently being managed by the use of 3M 2 layer compression wraps. Venous duplex examination, performed on August 02, 2017, revealed incompetence of the right great saphenous vein, and the left great saphenous vein below the knee. A noninvasive lower extremity arterial study was normal, revealing no evidence of significant arterial occlusive disease in the lower extremities. Of note, the patient began sleeping in a recliner, in an upright position, approximately 1 year ago. She claims to be relatively active, but otherwise spends significant amounts of time each day and an idle sitting position. She has been treated for ulcerations and blisters in the right lower extremity, which now appear to be completely healed. Blisters and ulcerations persist in the left lower extremity, and are relatively recent. The patient has undergone recent laboratory testing, with results as follows: White blood count 3.1, hemoglobin 10.9, hematocrit 33.7, platelets 98,000, sodium 141, potassium 4.1, chloride 109, BUN 29, creatinine 1.36, glucose 129, calcium 10.6, total bilirubin 1.10, AST 37, ALT 31, alkaline phosphatase 181, total protein 7.2, albumin 3.1. As an aside, the patient has developed severe abdominal distention within the last 2-3 weeks. This is thought to be due to the accumulation of ascites. An abdominal ultrasound examination was performed on October 16, 2017, revealing hepatic steatosis, ascites, and splenomegaly. A recent abdominal x-ray was relatively unremarkable. The patient has an appointment with Dr. Abimael Castillo, mounter [employer]aphones, later this week for evaluation of her severe abdominal distention and ascites. 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 lower leg limited to breakdown of skin (Chronic) Chronic ulcer of leg with fat layer exposed (Chronic) Blister of left leg without infection (Chronic) Non-pressure chronic ulcer of other part of left lower leg with fat layer exposed (Chronic) History of breast cancer (Chronic) Swelling of lower extremity (Chronic) Dependent edema (Chronic) Chronic kidney disease (CKD) (Chronic) Protein malnutrition (Chronic) CKD (chronic kidney disease) stage 4, GFR 15-29 ml/min (Chronic) Breast CA (Chronic) TIA (transient ischemic attack) (Chronic) DM2 (diabetes mellitus, type 2) (Chronic) Bilateral leg edema (Chronic) 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 She is also diabetic. She has a history of hypertension. Her history is negative for myocardial infarction, congestive heart failure, cerebrovascular accident, pulmonary disease, thyroid disease, and hyperlipidemia. She has a history of renal insufficiency. Surgical History: mastectomy, - - Patient has had a right mastectomy and appendectomy. She is a Ab0. Allergies/Adverse Reactions: Allergies clarithromycin [From Biaxin] Allergy (Verified 07/20/17 13:26) Unknown iodine Allergy (Verified 07/20/17 13:26) Unknown Home Medications: Ambulatory Orders Medication Instructions Recorded Aspirin [Aspirin, Baby] 81 mg PO DAILY@0800 08/08/13 - Family History Sibling Cancer - Brother is from cancer that started in his leg, - - The patient's father at age of 85 with a history of congestive heart failure. The patient's mother at the age of 85 due to septic shock from urinary tract infection. 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 Lives: Alone Smoking Status: Never smoker Tobacco Use: Non-smoker Alcohol: None Drugs: None Review of Systems Constitutional: Denies: Chills, Fever, Weight Change Eyes: Denies: Pain, Vision Change HEENT: Denies: Difficulty Hearing, Difficulty Swallowing, Sinus Congestion Cardiovascular: Denies: Chest Pain, Palpitations Respiratory: Denies: Cough, Shortness of Breath Gastrointestinal: Denies: Diarrhea, Nausea, Vomiting Genitourinary: Denies: Dysuria, Hematuria Endocrine: Denies: Heat/ Cold Intolerance, Polydipsia, Polyuria Hematologic/ Lymphatic: Denies: Easy Bruising, Easy Bleeding - Physical Exam Vital Signs Temp Pulse Resp BP 98.2 F 76 18 147/84 H 10/18/17 12:53 10/18/17 12:53 10/18/17 12:53 10/18/17 12:53 General: Alert, Oriented x3, Cooperative, No apparent distress, Well developed, Well nourished HEENT: Atraumatic, PERRLA, EOMI, Normocephalic Oral: Moist Mucosa, No Gingival or Mucosal Lesions/ Ulcerations Neck: Supple, No JVD, Negative Carotid Bruits, Negative Hepatojugular Reflux, No Nodes, No Nuchal Rigidity, Trachea Midline Lungs: Clear to auscultation, Normal air movement, No rhonchi, No wheeze, No rales Cardiovascular: Regular rate, Regular Rhythm, Normal S1, Normal S2, Murmur - Systolic Abdomen: Soft, Non Tender, Distended - Severe abdominal distention is appreciated Extremities: No clubbing, No cyanosis, No Calf Tenderness, - - Bilateral lower extremity swelling and edema is noted. There are no open wounds or ulcerations in the right lower extremity. There are several superficial ulcerations and one intact blister on the left anterior tibial surface. There is no sign of infection or cellulitis. The bases of the ulcerations in the left lower extremity are pink and healthy in appearance. Skin: No rashes Wound Measurements and Assessment WC - Nurse 1 - General Ulcer Measurement Start: 09/21/17 12:56 Freq: Status: Active Protocol: Activity Type Activity Date Activity User E-Sign Co-Sign Detail Recorded Client Recorded Date Recorded By Document 10/18/17 12:53 TM [id number] 10/18/17 12:58 TM [facility] Nurse 1 [Ulcer Assessment] #2 LEFT GONZALEZ ULCER -Combined with other wound No -Current Size (cm) - Length 0.9 - Nurse 2 - General Ulcer CM Notes Start: 09/21/17 12:56 Freq: Status: Active Protocol: Activity Type Activity Date Activity User E-Sign Co-Sign Detail Recorded Client Recorded Date Recorded By Document 10/18/17 14:00 JS [id number] 10/18/17 14:09 JS Neurological: Cranial nerves II-XII grossly intact, Neuro grossly intact Psych/Mental Status: Normal Affect, Appropriate, Alert and oriented to time, place, person, mood and affect Debridement Note Post-Debridement Measurements/Treatment WC - Nurse 2 - General Ulcer CM Notes Start: 09/21/17 12:56 Freq: Status: Active Protocol: Activity Type Activity Date Activity User E-Sign Co-Sign Detail Wound Center Nurse 2 #2 LEFT GONZALEZ ULCER -Time 13:15 13:42 14:26 Wound Center Nurse 2 #2 LEFT GONZALEZ ULCER -Time 13:43 14:00 No debridement was completed today Assessment/Plan Active Problems Venous insufficiency (chronic) (peripheral) (Chronic) Non-pressure chronic ulcer of other part of left lower leg limited to breakdown of skin (Chronic) Chronic ulcer of leg with fat layer exposed (Chronic) Blister of left leg without infection (Chronic) Non-pressure chronic ulcer of other part of left lower leg with fat layer exposed (Chronic) Swelling of lower extremity (Chronic) Dependent edema (Chronic) Ascites (Acute) Abdominal distension (Acute) Bilateral leg edema (Chronic) 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 As result of the severe swelling and edema in the left lower extremity, patient has developed several blisters, which have subsequently spontaneously burst, and 1 of which remains intact. These blisters appear related to the significant swelling and edema in her lower extremities. The patient has been sleeping in a recliner. This appears to be a causative factor related to the swelling and edema in the patient's lower extremities. The patient has been advised to modify her lifestyle habits, and the measures to be undertaken have been thoroughly explained. Plan: Conservative treatment measures are to be implemented. These have been discussed with the patient thoroughly. She is to elevate her lower extremities as much as possible. Elevation is to be to heart level, or higher. She is to sleep on a flat mattress at night, rather than in a recliner. Leg elevation has been encouraged, even during daytime hours, as much as possible. The patient is to refrain from prolonged idle sitting. He has been encouraged. Weight loss has been recommended. Optimization of the patient's nutrition, and optimization of the patient's glycemic control has also been recommended. Compression is to be implemented by means of a 3M 2 layer compression wrap to the right lower extremity, and an Unna boot to the left lower extremity. These multilayer compression wraps will be changed twice weekly, and the patient will return to our facility later this week for a change of her multilayer wraps. Patient is to return in 1 week for reevaluation. It is anticipated that modification of the patient's lifestyle will likely result in decrease in her lower extremity swelling. Discussed importance of tight blood sugar control, adequate nutrition especially increased protein intake, to promote healing. Discussed importance of edema control--recommended leg elevation above her heart while resting or sleeping, avoiding idle sitting or standing, compression of at least 20-30 mmHg, increased activity, weight management. Influenza vaccine was not administered today. The patient is not a smoker. The patient stands 5 feet 2 inches tall. She weighs 207 pounds. Her BMI is 37.9, which places her in an obese class II category. Weight loss has been recommended, the patient has been encouraged to collaborate with her primary care physician in this regard. We will await recommendations of Dr. Castillo, relative to the patient's massive accumulated ascites, which has been recent. 10/18/17 1506 <Electronically signed by Jose Alfredo Barnett MD> Date Jose Alfredo Barnett MD CC: Signed ABDOMEN COMPLETE Observed: 10/16/2017 Status: F Source: [facility] 10:17 AM [facility] REPOSITORY [facility] Imaging Services [address] [place] [id number] Abdomen Complete MR#: [id number] Acct: [id number] Name: ANITA MCCALLUM Rep #: [id number] : 1945 F 71 From: Atilio Candelaria MD PCP: Nicola Bay MD Status: REG CLI Study: Abdomen Complete Date of Exam: 10/16/17 Exam# [id number] Ordering Dr: Nicola Bay MD STUDY: ABDOMINAL ULTRASOUND REASON FOR EXAM: Female, 71 years old. Pain and bloating. TECHNIQUE: Transabdominal ultrasound was performed with real-time and static best scale imaging. TECHNICAL QUALITY: Adequate. COMPARISON: CT abdomen and pelvis 04/12/2017. FINDINGS: Liver: Large ascites overlying the liver surface. The liver measures 15.2 cm. Increased echogenicity of the liver parenchyma due to fatty infiltration. The bile ducts are within normal limits. There is hepatic color flow. The direction of portal flow is hepatopetal. There is no demonstrated mass lesion. Portal vein measurement: Gallbladder: Abnormal gallbladder containing multiple gallbladder polyps. The dominant polyp is 6 mm in diameter. The gallbladder wall measures 3.4 mm. There is a negative sonographic Pelayo's sign. Minimal pericholecystic fluid. There are no gallstones. Common Bile Duct (C.B.D.): The common bile duct measures 2.3 mm. Pancreas: Nonvisualization of the pancreas. Spleen: Splenomegaly. The spleen measures 15.7 x 5.7 x 5.8 cm. Right Kidney: Normal size of the right kidney. The right kidney measures 8.5 x 4.2 x 4.3 cm. Normal renal cortex. The right cortex measures 1.1 cm. There is no demonstrated renal mass or cyst. Monostatic calculus measuring 8 x 10 x 7 mm. There is no right hydronephrosis. Left Kidney: Normal size of the left kidney. The left kidney measures 9.7 x 3.8 x 4.9 cm. Normal renal cortex. The left cortex measures 1.2 cm. There is no demonstrated renal mass or cyst. 2 nonobstructive calculi measuring 7 x 7 x 5 mm and 6 x 5 x 4 mm. There is no left hydronephrosis. Aorta: Proximal diameter is 2.2 x 1.4 cm. Mid and distal aorta are not visualized. I.V.C.: The IVC is patent. Positive for ascites. US/Abdomen Complete IMPRESSION: 1. Hepatic steatosis. 2. Splenomegaly. 3. Ascites. 4. Multiple gallbladder polyps, the dominant polyp is 6 mm in diameter. Negative sonographic Pelayo's sign. 5. Nonobstructing calculus in the right kidney and nonobstructing calculi in the left kidney. Electronically Signed: Atilio Candelaria MD at 14:37 EDT , Service support , CC: Nicola Bay MD Dosimetrist: Signed ABD INC DECUB Observed: 10/13/2017 Status: F Source: REJI AND/OR ERECT 12:33 PM [facility] REPOSITORY [facility] Imaging Services [address] [place] [address] Abd Inc Decub and/or Erect MR#: [id number] Acct: [id number] Name: ANITA MCCALLUM Rep #: [id number] : 1945 F 71 From: Isac Blevins MD PCP: Nicola Bay MD Status: REG CLI Study: Abd Inc Decub and/or Erect Date of Exam: 10/13/17 Exam# [id number] Ordering Dr: Nicola Bay MD STUDY: X-RAY - ABDOMEN/PELVIS REASON FOR EXAM: Female, 71 years old. SEVERE ABDOMINAL DISTENTION/BLOATING X3 WEEKS AND GETTING WORSE TECHNIQUE: AP supine and upright views of the abdomen and pelvis. COMPARISON: None . FINDINGS: Normal visualized lung bases. There is a moderate amount of colonic fecal material. There is no demonstrated free abdominal air. The visualized liver, spleen and kidneys are grossly normal in size and morphology. Normal soft tissue structures. There are diffuse degenerative changes of the visualized lumbar spine. RAD/Abd Inc Decub and/or Erect IMPRESSION: Constipation. Electronically Signed: Isac Blevins MD at 17:25 EDT , Service support , CC: Nicola Bay MD Dosimetrist: Signed CBC W/DIFF, AUTOMATED Collected: 10/13/2017 Status: F Source: REJI 12:30 PM [facility] REPOSITORY TYPE CODE TESTS RESULT OUT OF RANGE REFERENCE UNITS LAB L100.1000 4.4-11.0 K/mm3 Low WBC 3.1 LAB L100.1200 4.2-5.4 M/mm3 Low RBC 3.54 LAB L100.1300 12.0-15.0 g/dl Low HGB 10.9 LAB L100.1400 37-47 % Low HCT 33.7 LAB L100.1500 81-99 fL Normal MCV 95.2 LAB L100.1600 27.0-32.0 pg Normal MCH 30.8 LAB L100.1700 32-36 g/gl Normal MCHC 32.3 LAB L100.1810 11.6-14.6 % High RDW CV 15.7 LAB L100.1820 35.1-43.9 fl High RDW SD 52.7 LAB L100.1900 150-450 K/mm3 Low PLT 98 LAB L100.2000 6.2-12.0 fl Normal MPV 10.3 LAB L100.2100 47-70 % High NEUT% 74.8 LAB L100.2200 19-41 % Low LY% 14.7 LAB L100.2300 0-10 % Normal MONO% 7.0 LAB L100.2400 0-5 % Normal EO% 2.6 LAB L100.2500 0-1 % Normal BASO% 0.6 LAB L100.2550 0.0-0.9 % Normal IM GRAN % 0.300 Result Comment: IG% - Immature Granulocytes (promyelocytes, myelocytes and metamyelocytes) > 1% indicates that a LEFT SHIFT is Present. LAB L100.2620 2.0-7.7 X10 3/uL Normal Absolute Neut 2.3 LAB L100.2720 0.83-4.51 X10 3/ul Low Absolute Lymph 0.46 Performed By: #### L100.0100 #### [facility] [address] [place], [place], [address] COMPREHENSIVE METABOLIC Collected: 10/13/2017 Status: F Source: [facility] 12:30 PM [facility] REPOSITORY TYPE CODE TESTS RESULT OUT OF RANGE REFERENCE UNITS LAB L501.0100 74-106 mg/dL High GLU 129 Result Comment: Fasting Glucose result greater than or equal to 126 mg/dL suggests DIABETES MELLITUS per A.D.A. criteria. Please note revised GLUCOSE reference range effective 2017. LAB L501.1000 7-18 mg/dL High BUN 29 LAB L501.1100 0.55-1.02 mg/dL High CREAT,SERUM 1.36 Result Comment: The validity of the calculated GFR AND GFRAA in patients over 70 years has not been determined. Clinical correlation is essential. LAB L501.1110 >60 mL/min Low EST GFR 41 Result Comment: Non- GFR Calc LAB L501.1115 >60 mL/min Low EST GFR - AA 49 Result Comment: GFR Calc LAB L501.1300 10-20 RATIO High BUN/CRE 21.3 LAB L501.1500 6.4-8.2 g/dL T Normal PROT 7.2 LAB L501.1800 3.2-5.0 g/dL Low ALB 3.1 LAB L501.1950 2.2-4.2 g/dL Normal GLOB 4.1 LAB L501.2000 0.9-2.4 RATIO Low A/G 0.8 LAB L501.2200 8.5-10.1 mg/dL High CA 10.6 LAB L501.4100 15-37 U/L Normal AST 37 LAB L501.4305 45-117 U/L High ALK P 181 LAB L501.4405 13-56 U/L Normal ALT 31 LAB L501.4600 0.20-1.00 mg/dL High T BILI 1.10 LAB L501.5300 136-145 mmol/L NA Normal 141 LAB L501.5600 3.5-5.1 mmol/L K Normal 4.1 LAB L501.5900 98-107 mmol/L High CL 109 LAB L501.6100 21.0-32.0 mmol/L Normal CO2 27.0 LAB L501.6200 5-15 Normal GAP 5 Performed By: #### L500.4050 #### [facility] [address] [place], [address] LOWER EXT ARTERIAL Observed: 08/06/2017 Status: F Source: [place] STUDY 6:38 AM [facility] REPOSITORY [facility] Cardiovascular Services [address] [place] [address] [place] [address] 08/06/17 0634 MR#: [id number] Acct: [id number] Name: ANITA MCCALLUM Rep #: [id number] : 1945 71 From: Jose Alfredo Barnett MD Attending Dr: Rob Claire DPM Status: REG RCR Ordering Dr: Date: 08/06/17 Location: [facility] Sex: F C Admitted: Arterial Study - Arterial Study Arterial Study: This is a 71-year-old female with a history of hypertension, diabetes mellitus, transient ischemic attack, and breast cancer. She presents with a chronic nonhealing wound to the right lower extremity. Suspecting the presence of atherosclerotic peripheral arterial occlusive disease, the patient was brought to the noninvasive vascular laboratory at this time for the purpose of bilateral noninvasive lower extremity arterial assessment. Doppler signal assessment was used to evaluate the pulses at ankle level bilaterally. The posterior tibial and dorsalis pedis pulses were triphasic bilaterally. Segmental limb pressures were obtained bilaterally. The right ankle pressure, as determined by posterior tibial pulse, was measured at 227 mmHg. The right ankle pressure, as determined by dorsalis pedis pulse, was measured at 228 mmHg. The right digital pressure was measured at 172 2 mmHg. The left ankle pressure, as determined by posterior tibial pulse, was measured at 220 mmHg. The left ankle pressure, as determined by dorsalis pedis pulse, was measured at 216 mmHg. The left digital pressure was measured at 167 mmHg. Pulse-volume recordings were obtained bilaterally and segmentally. Waveform amplitudes appeared to be satisfactory at all levels bilaterally, including low thigh, calf, ankle, and digital levels. Resting ankle-brachial indices were calculated bilaterally. The resting right ankle-brachial index was calculated to be 1.34. The resting left ankle-brachial index was calculated to be 1.29. Digital-brachial indices were calculated bilaterally. The right digital-brachial index was calculated to be 1.01. The left digital-brachial index was calculated to be 0.98. Impression: Based upon the findings of this resting noninvasive lower external study, there is no evidence of significant atherosclerotic peripheral arterial occlusive disease in the lower extremities bilaterally. Triphasic waveforms were noted at ankle level bilaterally. Resting ankle-brachial indices were bilaterally normal. Digital-brachial indices were also bilaterally normal. In summary, this represents a normal resting noninvasive lower extremity trial study bilaterally. 08/06/17 0638 <Electronically signed by Jose Alfredo Barnett MD> Date Jose Alfredo Barnett MD CC: Rob Claire DPM; Nicola Bay MD Date Dictated: 08/06/17633 Date Transcribed: 08/06/17633 Dosimetrist: SYLVAIN Signed VENOUS DUPLEX LOWER Observed: 08/02/2017 Status: F Source: [place] EXTREMITY 9:59 PM [facility] REPOSITORY [facility] Cardiovascular Services [address] [place] [address] Venous Duplex US - Raheel Extrem 08/02/17 1236 MR#: [id number] Acct: [id number] Name: ANITA MCCALLUM Rep #: [id number] : 1945 71 From: Jose Alfredo Barnett MD Attending Dr: Rob Claire DPM Status: REG RCR Ordering Dr: Rob Claire DPM Date: 08/02/17 Location: [facility] Sex: F C Admitted: Reason For Study: Non-healing wound RIGHT LEFT GSV is normal. GSV is normal. CFV is compressible, spontaneous, phasic, CFV is compressible, spontaneous, phasic, competent and demonstrates normal competent, and demonstrates normal augmentation. augmentation. FV is compressible, spontaneous, phasic, FV is compressible, spontaneous, phasic, competent and demonstrates normal competent and demonstrates normal augmentation. augmentation. POP V is compressible, spontaneous, phasic, POP V is compressible, spontaneous, phasic, competent and demonstrates normal competent and demonstrates normal augmentation. augmentation. T/P Trunk is compressible. T/P Trunk is compressible. PTV is compressible. PTV is compressible. RT PerV is compressible. LT PerV is compressible. SFJ is INCOMPETENT with reflux greater SFJ is competent than .5 sec GSV is competent above knee GSV is INCOMPETENt with reflux greater GSV is INCOMPETENT below knee with reflux than .5 sec and diameter of .36 x .36 cm greater than .5 sec and diameter of .31 SSV is competent. x .33 cm Procedure SSV is competent. Exam performed in department. A preliminary report was called and/or faxed to [facility]. Interpretation Summary Deep veins of the lower extremities are bilaterally patent and compressible segmentally. There is no evidence of deep vein thrombosis on either side. Valvular competence appears intact within the proximal deep venous systems bilaterally. The greater saphenous veins appear bilaterally patent and compressible segmentally. The right sapheno-femoral junction is incompetent . The left sapheno- femoral junction is competent . The right greater saphenous vein appears segmentally incompetent. The left greater saphenous vein appears competent above the knee. The left greater saphenous vein appears incompetent below the knee. Small saphenous veins are patent and competent bilaterally. Ordering Physician: Rob Claire Referring Physician: Rob Claire Performed By: Yris Briscoe RVT 08/02/172158 Date Jose Alfredo Barnett MD CC: Rob Claire DPM; Nicola Bay MD Date Dictated: 08/02/17 1236 Date Transcribed: 08/02/172158 Dosimetrist: Signed WOUND CTR HISTORY Observed: 07/20/2017 Status: F Source: REJI AND PHYSICAL 3:22 PM [facility] REPOSITORY [facility] [address] [place] [address] Wound Ctr History AND Physical 07/20/17 1513 MR#: [id number] Acct: [id number] Name: ANITA MCCALLUM Rep #: [id number] : 1945 71 From: Rob Claire DPM PCP: Nicola Bay MD Status: REG RCR Y Location: WC (1) Non-pressure chronic ulcer of other part of right lower leg with fat layer exposed Status: Acute Current Visit: Yes Code(s): L97.812 - Non- pressure chronic ulcer of other part of right lower leg with fat layer exposed (2) Type 2 diabetes mellitus with other circulatory complications Status: Acute Current Visit: Yes Code(s): E11.59 - Type 2 diabetes mellitus with other circulatory complications (3) Bilateral leg edema Status: Acute Current Visit: Yes Code(s): R60.0 - Localized edema History of Present Illness Date of Service: 07/20/17 Chief Complaint: Non-healing ulcer R leg History of Wound: 71 year old diabetic woman with 2-3 week history of non-healing ulcer R gonzalez. Pt states it started as a blister and opened. She was started on PO Keflex by her PCP and she has been applying hydrogel and telfa pads. She was referred her by her PCP due to no improvment in her leg ulceration. Has never had lower extremity vascular testing. Has not had recent blood work. Non-smoker. Blood sugar well-controlled, most recent A1c almost 1 year ago however and was 7.2. Pt does have CKD as well. No hx of CHF that she is aware of. Admits to sleeping in a recliner at night. Does not wear compression on her legs. Past Medical History Past Medical History: Chronic Problems Benign essential HTN (Chronic) DM2 (diabetes mellitus, type 2) (Chronic) TIA (transient ischemic attack) (Chronic) Breast CA (Chronic) Past Medical History: CKD Surgical History: mastectomy, - - Patient has had a right mastectomy and appendectomy Allergies/Adverse Reactions: Allergies clarithromycin [From Biaxin] Allergy (Verified 07/20/17 13:26) Unknown iodine Allergy (Verified 07/20/17 13:26) Unknown Home Medications: Ambulatory Orders Medication Instructions Recorded Aspirin [Aspirin, Baby] 81 mg PO DAILY@0800 08/08/13 - Family History Sibling Cancer - Brother is from cancer that started in his leg Lives: Alone Smoking Status: Never smoker Tobacco Use: Non-smoker Alcohol: Rare Drugs: None Review of Systems Constitutional: Denies: Chills, Fever, Weight Change Eyes: Denies: Pain, Vision Change HEENT: Denies: Difficulty Hearing, Difficulty Swallowing, Sinus Congestion Cardiovascular: Reports: Edema. Denies: Chest Pain, Palpitations Respiratory: Denies: Cough, Shortness of Breath Gastrointestinal: Denies: Diarrhea, Nausea, Vomiting Genitourinary: Denies: Dysuria, Hematuria Skin: Reports: Wounds - R leg Neurological: Denies: Confusion, Numbness, Tingling Endocrine: Denies: Heat/ Cold Intolerance, Polydipsia, Polyuria Hematologic/ Lymphatic: Denies: Easy Bruising, Easy Bleeding, Hx of blood clot - Physical Exam Vital Signs Temp Pulse Resp BP 98 F 85 16 168/81 H 07/20/17 12:50 07/20/17 12:50 07/20/17 12:50 07/20/17 12:50 General: Alert, Oriented x3, Cooperative, No apparent distress Abdomen: Soft, Non Tender, Non-Distended Extremities: No clubbing, No cyanosis, Diminished Peripheral Pulses - likely secondary to edema, Edema Skin: Ulcer/ Wound - R gonzalez with no erythema, no pus, no malodor, no increased warmth, no TTP of wound or constantine-wound area. No clinical signs of acute bacterial infection noted. See nurse's wound assessment. Wound Measurements and Assessment - Nurse 1 - General Ulcer Measurement Start: 07/20/17 12:30 Freq: Status: Active Protocol: Activity Type Activity Date Activity User E-Sign Co-Sign Detail Recorded Client Recorded Date Recorded By Document 07/20/17 12:50 [facility] [id number] 07/20/17 13:15 [facility] Wound Center Nurse 1 [Ulcer Assessment Protocol: WC.WD.LOC] - Nurse 2 - General Ulcer CM Notes Start: 07/20/17 12:30 Freq: Status: Active Protocol: Activity Type Activity Date Activity User E-Sign Co-Sign Detail Recorded Client Recorded Date Recorded By Document 07/20/17 14:03 MW [id number] 07/20/17 14:19 MW Wound Center Nurse 2 [Procedure/Treatment] #1- RT LAT GONZALEZ -Time 14:04 -Correct Patient Yes -Correct Side, Site, Position Yes -Correct Procedure Yes Debridement Note Post-Debridement Measurements/Treatment - Nurse 2 - General Ulcer CM Notes Start: 07/20/17 12:30 Freq: Status: Active Protocol: Activity Type Activity Date Activity User E-Sign Co-Sign Detail Recorded Client Recorded Date Recorded By Document 07/20/17 14:03 MW [id number] 07/20/17 14:19 MW Wound Center Nurse 2 #1- RT LAT GONZALEZ -Time 14:04 Wound debrided: R gonzalez Laterality: Right Wound Grade/Stage: full thickness Type of Debridement: Excisional debridement Anesthesia Used: 4% Lidocaine Solution Depth: Down to and including healthy tissue, in the subcutaneous layer Percentage of wound debrided: 100 Instrument Used: 5mm curette Tissue Removed: fibrous slough Severity: Fat Layer Exposed Amount of bleeding with debridement: Mild Bleeding Controlled with: Pressure, Compression and gauze Patient tolerated procedure well Assessment/Plan Active Problems Type 2 diabetes mellitus with other circulatory complications (Acute) Bilateral leg edema (Acute) Non-pressure chronic ulcer of other part of right lower leg with fat layer exposed (Acute) Assessment: See diagnoses Plan: EQUAL OPPORTUNITY SPECIALIST exam. SQ/excisional debridement R gonzalez ulcer as above. Pt is non-smoker. Discussed importance of tight blood sugar control, adequate nutrition especially increased protein intake, to promote healing. Discussed importance of edema control--recommended leg elevation above her heart while resting or sleeping, avoiding idle sitting or standing, compression of at least 20-30 mmHg (AFTER vascular testing), increased activity, weight management. Pt not having much pain, no need to take NSAIDs. LEAs and venous duplex ordered. Moderate spandagrip until after vascular testing done. Pulses likely diminished bilaterally due to lower extremity edema, but again I did order arterial studies of bilateral legs. Stop previous dressings, start hydrofera blue and dry dressing 3x/week. Monitor for redness, pus, malodor, warmth, inc pain as well as for N/V/F/C and call or go to the ED with these. Return in 1 week, call with questions. 07/20/17 1522 <Electronically signed by Rob Claire DPM> Date Rob Claire DPM CC: Signed TIBIA AND FIBULA Observed: 07/20/2017 Status: F Source: REJI 2 VIEWS 3:05 PM [facility] REPOSITORY [facility] Imaging Services [address] [place] [address] Tibia AND Fibula 2 Views MR#: [id number] Acct: [id number] Name: ANITA MCCALLUM Rep #: [id number] : 1945 F 71 From: Fabricio Short DO PCP: Nicola Bay MD Status: REG RCR Study: Tibia AND Fibula 2 Views Date of Exam: 07/20/17 Exam# [id number] Ordering Dr: Rob Claire DPM STUDY: X-RAY - RIGHT TIBIA AND FIBULA REASON FOR EXAM: Female, 71 years old. Edema TECHNIQUE: 2 view(s) of the tibia and fibula were obtained. COMPARISON: None. FINDINGS: Normal visualized tibia. Normal visualized fibula. Degenerative changes at the knee. There is subcutaneous edema of the lower leg. Vascular calcifications. RAD/Tibia AND Fibula 2 Views IMPRESSION: No acute bony injury of the tibia and fibula. Mild degenerative changes at the knee. Subcutaneous edema of the lower leg. Electronically Signed: Fabricio Short DO at 23:52 EST Tel [phone], Service support , CC: Rob Claire DPM; Nicola Bay MD Dosimetrist: Signed CBC W/DIFF, AUTOMATED Collected: 07/20/2017 Status: F Source: TROY 3:03 PM [facility] REPOSITORY TYPE CODE TESTS RESULT OUT OF RANGE REFERENCE UNITS LAB L100.1000 4.4-11.0 K/mm3 Low WBC 2.5 LAB L100.1200 4.2-5.4 M/mm3 Low RBC 3.61 LAB L100.1300 12.0-15.0 g/dl Low HGB 10.8 LAB L100.1400 37-47 % Low HCT 33.9 LAB L100.1500 81-99 fL Normal MCV 93.9 LAB L100.1600 27.0-32.0 pg Normal MCH 29.9 LAB L100.1700 32-36 g/gl Low MCHC 31.9 LAB L100.1810 11.6-14.6 % High RDW CV 15.1 LAB L100.1820 35.1-43.9 fl High RDW SD 52.3 LAB L100.1900 150-450 K/mm3 Low PLT 86 LAB L100.2000 6.2-12.0 fl Normal MPV 10.6 LAB L100.2100 47-70 % High NEUT% 71.0 LAB L100.2200 19-41 % Low LY% 16.7 LAB L100.2300 0-10 % Normal MONO% 9.1 LAB L100.2400 0-5 % Normal EO% 2.8 LAB L100.2500 0-1 % Normal BASO% 0.4 LAB L100.2550 0.0-0.9 % Normal IM GRAN % 0.000 Result Comment: IG% - Immature Granulocytes (promyelocytes, myelocytes and metamyelocytes) > 1% indicates that a LEFT SHIFT is Present. LAB L100.2620 2.0-7.7 X10 3/uL Low Absolute Neut 1.8 LAB L100.2720 0.83-4.51 X10 3/ul Low Absolute Lymph 0.42 LAB L100.4500 Normal SMEAR COMMENT SCANNED Performed By: #### L100.0100, L101.9900 #### [facility] [address] [place], [place], [address] ERYTHROCYTE SED RATE Collected: 07/20/2017 Status: F Source: TROY 3:03 PM [facility] REPOSITORY TYPE CODE TESTS RESULT OUT OF RANGE REFERENCE UNITS LAB L102.0000 0-30 mm/hr High SED RATE 37 Performed By: #### L100.0100, L101.9900 #### [facility] [address] [place], [place], [address] HEMOGLOBIN A1C Collected: 07/20/2017 Status: F Source: TROY 3:03 PM [facility] REPOSITORY TYPE CODE TESTS RESULT OUT OF RANGE REFERENCE UNITS LAB L501.9985 4.2-6.3 % Normal HGB A1C 6.0 Performed By: #### L501.9985 #### [facility] [address] [place], [place], [address] COMPREHENSIVE METABOLIC Collected: 07/20/2017 Status: F Source: [facility] 3:03 PM [facility] REPOSITORY TYPE CODE TESTS RESULT OUT OF RANGE REFERENCE UNITS LAB L501.0100 70-110 mg/dL High GLU 136 Result Comment: Fasting Glucose result greater than or equal to 126 mg/dL suggests DIABETES MELLITUS per A.D.A. criteria. LAB L501.1000 7-18 mg/dL High BUN 25 LAB L501.1100 0.55-1.02 mg/dL High CREAT,SERUM 1.05 Result Comment: The validity of the calculated GFR AND GFRAA in patients over 70 years has not been determined. Clinical correlation is essential. LAB L501.1110 >60 mL/min Low EST GFR 55 Result Comment: Non- GFR Calc LAB L501.1115 >60 mL/min Normal EST GFR - AA 67 Result Comment: GFR Calc LAB L501.1255 ml/min Normal Estimated CRCL 39.43 LAB L501.1300 10-20 RATIO High BUN/CRE 23.8 LAB L501.1500 6.4-8. g/dL Normal 2 T PROT 7.5 LAB L501.1800 3.2-5. g/dL Normal 0 ALB 3.2 LAB L501.1950 2.2-4. g/dL High 2 GLOB 4.3 LAB L501.2000 0.9-2. RATIO Low 4 A/G 0.7 LAB L501.2200 8.5-10 mg/dL High .1 CA 10.5 LAB L501.4100 15-37 U/L High AST 61 LAB L501.4305 45-117 U/L High ALK P 247 LAB L501.4405 13-56 U/L Normal ALT 53 Result Comment: Please note revised ALT reference range effective 2017. LAB L501.4600 0.20-1.00 mg/dL Normal T BILI 0.60 LAB L501.5300 136-145 mmol/L Normal NA 142 LAB L501.5600 3.5-5.1 mmol/L Normal K 4.2 LAB L501.5900 98-107 mmol/L Normal CL 107 LAB L501.6100 21.0-32.0 mmol/L Normal CO2 27.0 LAB L501.6200 5-15 Normal GAP 8 Performed By: #### L500.4050, L501.6710, L506.0500 #### [facility] [address] [place], [address] CRP Collected: 07/20/2017 Status: F Source: REJI 3:03 PM [facility] REPOSITORY TYPE CODE TESTS RESULT OUT OF RANGE REFERENCE UNITS LAB L501.6710 0.0-3.0 mg/L High 26.00 C-REACTIVE PROT Result Comment: C-Reactive Protein (CRP) provides useful information for the diagnosis, therapy and monitoring of inflammatory processes and associated diseases. For the evaluation of Relative Risk for Cardiovascular Disease, a High Sensitivity CRP (HSCRP) should be ordered. Performed By: #### L500.4050, L501.6710, L506.0500 #### [facility] [address] [place], [address] PREALBUMIN Collected: 07/20/2017 Status: F Source: TROY 3:03 PM [facility] REPOSITORY TYPE CODE TESTS RESULT OUT OF REFERENCE UNITS RANGE LAB L506.0500 20.0-40.0 mg/dL Low PREALBUMIN 9.8 Performed By: #### L500.4050, L501.6710, L506.0500 #### [facility] [address] [place], [address] ALLERGIES ALLERGIES DATE TYPE / NAME / CODE REACTION SEVERITY SOURCE CODE 02/03/2018 Drug iodine/[id number](RX Unknown Unknown Reji Allergy/41 NORM) [facility] [id number]([facility]) Repository 02/03/2018 Drug clarithromycin/F0060 Unknown Unknown Reji Allergy/41 77451(RXNORM) [facility] [id number]([facility]) Repository 06/12/2009 DRUG CLARITHROMYCIN [address] [id number]([facility]) 06/12/2009 DRUG POTASSIUM IODIDE [address] [id number]([facility]) ENCOUNTERS ENCOUNTERS ADMIT/DISCHARGE ACCOUNT NUMBER ADMITTING ENCOUNTER LOCATION SOURCE CLASS 06/06/2018 [id number] [facility] ding:[facility] Repository 06/02/2018 [id number] [facility] ding:LAB Repository 06/02/[id number] [facility] ding[facility] Repository 05/27/2018 [id number] [facility] Repository 05/25/2018 [id number] Ambulatory [place] [facility] ding:LAB Repository 05/19/2018 [id number] [facility] Repository 05/11/2018 [id number] Ambulatory [place] ding:MEDOUTP Repository 05/05/2018 [id number] Ambulatory [place] [facility] ding:MEDOUTP Repository 04/28/2018 [id number] Ambulatory [place] [facility] ding:US Repository 04/27/2018/05/20/20 [id number] Ambulatory [place] [address] [place] [address] [facility] ding:LAB Repository 04/21/2018 [id number] Ambulatory [place] [facility] ding:MEDOUTP Repository 04/12/2018 [id number] Ambulatory [place] [facility] ding:MEDOUTP Repository 03/31/2018 [id number] Ambulatory [place] [facility] ding:MEDOUTP Repository 03/29/2018 [id number] Ambulatory Reji [place] [facility] ding:NS Repository 03/24/2018 [id number] Ambulatory [place] [facility] ding:MEDOUTP Repository 03/17/2018 [id number] Ambulatory [place] [facility] ding:MEDOUTP Repository 03/10/2018 [id number] [facility] Repository 03/08/2018/03/09/20 [id number] Ambulatory [address] Repository 03/03/2018 [id number] [facility] Repository 03/01/2018/03/02/20 [id number] Ambulatory [address] [place] Repository 03/01/2018 [id number] Ambulatory [place] Reji [facility] ding:LABSPEC Repository 02/28/2018/02/29/20 [id number] Ambulatory [place] Hospital ding:NS Repository 02/24/2018 [id number] Ambulatory General acute hospital ding:MEDOUTP Repository 02/22/2018 [id number] Ambulatory General acute hospital ding:LAB Repository 02/17/2018 [id number] [facility] Repository 02/10/2018 [id number] [facility] Repository 02/03/2018 [id number] [facility] Repository 01/27/2018/01/28/20 [id number] Ambulatory Reji[address] ding:MEDOUTP Repository 01/27/2018 [id number] Ambulatory General acute hospital ding:US Repository 01/26/2018 [id number] [facility] Repository 01/25/2018 [id number] Ambulatory General acute hospital ding:LAB.FUT Repository URE 01/24/2018/01/25/20 [id number] Ambulatory BBuilding:[place] [address] Repository 01/22/2018 [id number] Becky Wharton Ambulatory BMSBuilding: Reji [facility] Repository 01/22/2018/01/24/20 [id number] Becky Wharton Inpatient [place] [facility] ding:PCURoom Repository : [id number]: 1 01/22/2018/01/24/20 [id number] Ambulatory BMSBuilding: Reji [facility] Repository 01/22/2018 [id number] Ambulatory General acute hospital ding:LAB Repository 01/21/2018 [id number] Ambulatory General acute hospital ding:MFPLAB Repository 01/20/2018 [id number] Ambulatory General acute hospital ding:US Repository 01/13/2018 [id number] Ambulatory [place] [facility]ji [facility] Repository 01/06/2018 [id number] Ambulatory [place] [facility] ding[facility]US Repository 12/31/2017 [id number] Ambulatory [place] [facility] ding:MTLAB Repository 12/30/2017 [id number] Ambulatory Reji Re[facility] ding:US Repository 12/29/2017 [id number] Ambulatory [place] [facility] ding:WC Repository 12/23/2017 [id number] Ambulatory [place] [facility] ding:US Repository 12/20/2017 [id number] Ambulatory [place] [facility] ding:OPBI Repository 12/17/2017 [id number] Ambulatory [place] [facility] ding:US Repository 12/14/2017/12/19/19 [id number] Ambulatory [place] Reji [address] [place] [address] [facility] ding:WC Repository 12/10/2017 [id number] Ambulatory [place] [facility] ding:US Repository 12/02/2017 [id number] Ambulatory Reji Reji [facility] ding:US Repository 12/01/2017/12/03/19 [id number] Ambulatory [address] Repository 11/25/2017 [id number] Ambulatory [place] [facility] ding:US Repository 11/24/2017 [id number] Ambulatory [place] [facility] ding:LABSPEC Repository 11/24/2017/11/26/19 [id number] Ambulatory [address] Repository 11/22/2017 [id number] Ambulatory [place] [facility]ji [facility] ding:US Repository 11/19/2017 [id number] Ambulatory [place] [facility]ji [facility] ding:US Repository 11/17/2017 [id number] Ambulatory Reji Reji [facility] ding:MTLAB Repository 11/16/2017/11/19/19 [id number] Ambulatory [place] [address] [place] [address] [facility] ding:WC Repository 11/05/2017 [id number] Ambulatory [place] Reji [facility] Hospital ding:LABSPEC Repository 11/03/2017 [id number] Ambulatory [place] [facility] ding:CT Repository 11/02/2017 [id number] Ambulatory [place] [facility] ding:RAD Repository 10/27/2017 [id number] Ambulatory Reji Reji [facility] Hospital ding:US Repository 10/22/2017/10/23/19 [id number] Emergency Reji [place] [facility] Hospital ding:ED Repository 10/22/2017 [id number] Ambulatory [place]ji [facility] Hospital ding:US Repository 10/18/2017/10/19/19 [id number] Ambulatory [place] [facility] Hospital ding:WC Repository 10/16/2017 [id number] Ambulatory [place] [facility] Hospital ding:US Repository 10/13/2017 [id number] Ambulatory Reji Reji [facility] Hospital ding:MTLAB Repository 09/17/2017/09/19/19 [id number] Ambulatory [place] [facility] Hospital ding:WC Repository 08/29/2017 [id number] Ambulatory [place] [facility] Hospital ding:CVS Repository 08/17/2017/08/18/19 [id number] Ambulatory [place]ji [facility] Hospital ding:WC Repository 08/02/2017/08/18/19 [id number] Ambulatory [place]ji [place] [facility] Hospital ding:CVS Repository 07/20/2017/07/21/19 [id number] Ambulatory [place] [facility] Hospital ding:WC Repository 07/10/2017/02/25/20 [id number] Ambulatory [place] [facility] Hospital ding:CCN Repository PAYERS PAYERS ENCOUNTER GUARANTOR PAYER SUBSCRIBER SOURCE 06/06/2018 ANITA Palomares Primary ANITA Palomares [place] [id number] [facility] Community [place] MEDICARE[id number]: Repository [address]Mwb: (113) [id number] [phone] (HP) Date:[id number] B[address] [facility] [place] [address]IK: 06/06/2018 Secondary NOT GIVENUNK Reji Insurance:SELF PAY [facility] Number: Effective Repository Date:2018-05-26 06/02/2018 ANITA Palomares Primary ANITA Palomares Reji [id number] Insurance:SUMMA CARE KEELERDOB: Community [employer] MEDICAREPolicy [id number] Number: Repository [id number]: (330) [id number] [phone] (HP) Date:[id number] [address] [place] [address]IH: 06/02/2018 Secondary NOT GIVENUNK Reji Insurance:SELF PAY [facility] Number: Effective Repository Date:2018-05-23 06/02/2018 ANITA Palomares Primary ANITA Palomares Reji [id number] Insurance:SUMMA CARE KEELERDOB: Community [employer] MEDICAREPolicy [id number] Number: Repository [id number]: (330 [id number] [phone] (HP) Date:9925-64-50DD [address] [place] [address] 04346FH: 06/02/2018 Secondary NOT GIVENUNK [place] Insurance:SELF PAY [facility] Number: Effective Repository Date:2018-04-12 05/27/2018 ANITA Palomares Primary ANITA Palomares Reji [id number] Insurance:SUMMA CARE KEELERDOB: Community BR[employer] MEDICAREPolicy [id number] Number: Repository [id number]: 330 [id number] [phone] (HP) Date:9120-47-74II [address] [place] [address] 46853FI: 05/27/2018 Secondary NOT GIVENUNK [place] Insurance:SELF PAY [facility] Number: Effective Repository Date:2018-04-12 05/25/2018 ANITA Palomares Primary ANITA Jelani Reji [id number] Insurance:SUMMA CARE KEELERDOB: Community [place] MEDICAREPolicy [id number] Number: Repository [id number]: (330 [id number] [phone] (HP) Date:2407-78-51BI [address] [place] [address] 26847TH: 05/25/2018 Secondary NOT GIVENUNK Reji Insurance:SELF PAY [facility] Number: Effective Repository Date:2018-05-25 05/19/2018 ANITA K Primary ANITA K Reji [id number] Insurance:SUMMA CARE KEELERDOB: Community BRANDON MEDICAREPolicy [id number] Number: Repository [id number]: (330) [id number] [phone] (HP) Date:3037-41-76GR [address] [place] [address] 78042NL: 05/19/2018 Secondary NOT GIVENUNK Reji Insurance:SELF PAY [facility] Number: Effective Repository Date:2018-04-12 05/11/2018 ANITA K Primary ANITA K Reji [id number] [facility] KEELERDOB: Community [place] MEDICAREPolicy [id number] Number: Repository [address]Wyb: (330 [id number] [phone] (HP) Date:6007-35-00MV [address] [place] [address] 34705CO: 05/11/2018 Secondary NOT GIVENUNK [place] Insurance:SELF PAY [facility] Number: Effective Repository Date:2018-04-12 05/05/2018 ANITA K Primary ANITA K [place] [id number] [facility] KEELERDOB: Community [place] MEDICAREPolicy [id number] Number: Repository 20305Pmb: (330 [id number] [phone] (HP) Date:8768-91-70JA [address] [place] [address] 11050HS: 05/05/2018 Secondary NOT GIVENUNK [place]ji Insurance:SELF PAY [facility] Number: Effective Repository Date:2018-04-12 04/28/2018 ANITA Palomares Primary ANITA Palomares [place] [id number] Insurance:[facility] C[facility] KEELERDOB: Community [place] MEDICAREPolicy [facility][birth year][facility] [place] Number: Repository 56395Dgh: 330 [id number] [phone] () Date:2147-02-20IU [address] [place] [address] 98661OS: 04/28/2018 Secondary NOT GIVENUNK Reji Insurance:SELF PAY [facility] Number: Effective Repository Date:2018-04-12 04/27/2018 ANITA Palomares Primary ANITA Palomares [place] [id number] Insurance:[facility] CARE KEELERDOB: Community [place] MEDICAREPolicy [facility][birth year][facility] [place] Number[place] Repository 49967Fdx: (330 [id number] [phone] () Date:1796-42-83SM [address] [place] [address] 91204GK: 04/27/2018 Secondary NOT GIVENUNK [place] Insurance:SELF PAY [facility] Number: Effective Repository Date:2018-03-04 04/21/2018 ANITA Palomares Primary ANITA Palomares Reji [id number] Insurance:[facility] CARE KEELERDOB: Community [place] MEDICAREPolicy 1946[facility][birth year][facility] [place] Number[place] Repository 45548Waa: (330 [id number] [phone] () Date:0247-34-34TP [address] [place] [address] 38259AB: 04/21/2018 Secondary NOT GIVENUNK [place] Insurance:SELF PAY [facility] Number: Effective Repository Date:2018-02-18 04/12/2018 ANITA Palomares Primary ANITA Palomares [place] [id number] Insurance:[employer] CARE KEELERDOB: Community [place] MEDICAREPolicy 1946[facility][birth year][facility] [place] Number[place] Repository 89344Bst: (330) [id number] [phone] (HP) Date:6516-57-80DU [address] [place] [address] 11938DE: 04/12/2018 Secondary NOT GIVENUNK [place] Insurance:SELF PAY [facility] Number: Effective Repository Date:2018-02-18 03/31/2018 ANITA Palomares Primary ANITA Jelani Reji [id number] Insurance:[employer] CARE KEELERDOB: Community [place] MEDICAREPolicy [id number] Number: Repository [address]Pbz: (330) [id number] [phone] (HP) Date:0164-02-06MS [address] 769[address]UW: 03/31/2018 Secondary NOT GIVENUNK [place] Insurance:SELF PAY [facility] Number: Effective Repository Date:2018-02-18 03/29/2018 ANITA Palomares Primary ANITA Jelani [place] [id number] Insurance:[employer] CARE KEELERDOB: Community [place] MEDICAREPolicy 1946[facility]05[facility] [place] Number[place] Repository 66621Wml: (330 [id number] [phone] (HP) Date:8779-59-13EV [address] [place] [address] 08371EX: 03/29/2018 Secondary NOT GIVENUNK [place]ji Insurance:SELF PAY [facility] Number: Effective Repository Date:2018-03-21 03/24/2018 ANITA Palomares Primary ANITA Jelani [place] [id number] Insurance:[employer] CARE KEELERDOB: Community [place] MEDICAREPolicy [id number] [place] [address] Number: Repository 36143Lgj: (330 [id number] [phone] (HP) Date:3650-91-26WL [address] [place] [address] 12562CU: 03/24/2018 Secondary NOT GIVENUNK [place]ji Insurance:SELF PAY [facility] Number: Effective Repository Date:2018-02-18 03/17/2018 ANITA Palomares Primary ANITA K [place] [id number] Insurance:[employer] CARE KEELERDOB: Community [place] MEDICAREPolicy 1946[address] Number: Repository 09484Wjz: (330) [id number] [phone] (HP) Date:0097-19-92UF [address] [place] [address] 11892FJ: 03/17/2018 Secondary NOT GIVENUNK Reji Insurance:SELF PAY [facility] Hospital Number: Effective Repository Date:2018-02-18 03/10/2018 ANITA Palomares Primary ANITA Palomares [place] [id number] Insurance:[employer] CARE KEELERDOB: Community [place] MEDICAREPolicy 1946[address] Number: Repository 30493Mnw: (330) [id number] [phone] (HP) Date:5943-43-93SE [address] [address]60[address]DX: 03/10/2018 Secondary NOT GIVENUNK [place] Insurance:SELF PAY [facility] Number: Effective Repository Date:2018-02-18 03/03/2018 ANITA Palomares Primary ANITA Palomares Reji [id number] Insurance:[facility] CARE KEELERDOB: Community [place] MEDICAREPolicy 1946[facility]05[facility] [place] Number[place] Repository 04382Bxn: (330) [id number] [phone] (HP) Date:9053-34-44UX [address] 91235BN: 03/03/2018 Secondary NOT GIVENUNK [place] Insurance:SELF PAY [facility] Number: Effective Repository Date:2018-02-18 03/01/2018 ANITA Palomares Primary ANITA Palomares [place] [id number] Insurance:[employer] CARE KEELERDOB: Community [place] MEDICAREPolicy [address] Number: Repository 98429Loh: (330 [id number] [phone] (HP) Date:2177-72-94DD [address] [place] [address] 27289MQ: 03/01/2018 Secondary NOT GIVENUNK [place] Insurance:SELF PAY [facility] Number: Effective Repository Date:2018-03-01 02/28/2018 ANITA Palomares Primary ANITA Palomares Reji [id number] Insurance:[employer] CARE KEELERDOB: Community [place] MEDICAREPolicy [address] Number: Repository 74283Dxx: 330 [id number] [phone] (HP) Date:7691-01-55XM [address] [place] [address] 38460CP: 02/28/2018 Secondary NOT GIVENUNK [place] Insurance:SELF PAY [facility] Number: Effective Repository Date:2018-02-25 02/24/2018 ANITA Palomares Primary ANITA Palomares Reji [id number] Insurance:[employer] CARE KEELERDOB: Community [place] MEDICAREPolicy 1946[facility][birth year][facility] [place] Number[place] Repository 25593Tmk: 330 [id number] [phone] () Date:0524-58-96CK [address] [place] [address] 56856NK: 02/24/2018 Secondary NOT GIVENUNK [place] Insurance:SELF PAY [facility] Number: Effective Repository Date:2018-01-28 02/22/2018 ANITA Palomares Primary ANITA Palomares Reji [id number] Insurance:[employer] CARE KEELERDOB: Community [place] MEDICAREPolicy 1946[facility][birth year][facility] [place] Number[place] Repository 98626Otf: (330 [id number] [phone] () Date:5326-00-41QP [address] [place] [address] 11354HU: 02/22/2018 Secondary NOT GIVENUNK [place] Insurance:SELF PAY [facility] Number: Effective Repository Date:2018-02-22 02/17/2018 ANITA Palomares Primary ANITA Palomares Reji [id number] Insurance:[employer] CARE KEELERDOB: Community [place] MEDICAREPolicy 1946[facility][birth year][facility] [place] Number: Repository 99685Doj: (330 [id number] [phone] (HP) Date:9975-20-28RM [address] [place] [address] 31002JM: 02/17/2018 Secondary NOT GIVENUNK [place]ji Insurance:SELF PAY [facility] Number: Effective Repository Date:2018-01-28 02/10/2018 ANITA K Primary ANITA K Reji [id number] Insurance:[employer] CARE KEELERDOB: Community [place] MEDICAREPolicy 1946[facility][birth year][facility] [place] Number: Repository 13824Khg: (330 [id number] [phone] (HP) Date:4933-06-12WJ [address] [place] [address] 30480QR: 02/10/2018 Secondary NOT GIVENUNK [place] Insurance:SELF PAY [facility] Number: Effective Repository Date:2018-01-28 02/03/2018 Anita K Primary Anita K Reji [id number] Insurance:[employer] CARE KeelerDOB: Community [place] MEDICAREPolicy 1946[facility][birth year][facility] [place] Number[place] Repository 94566Czd: (330 [id number] [phone] (HP) Date:0676-30-36EA [address] [place] [address] 25611AB: 02/03/2018 Secondary NOT GIVENUNK [place] Insurance:SELF PAY [facility] Hospital Number: Effective Repository Date:2018-01-13 01/27/2018 Anita K Primary Anita K Reji [id number] Insurance:[employer] CARE KeelerDOB: Community [place] MEDICAREPolicy 1946[facility][birth year][facility] [place] Number: Repository 65005Yno: (330 [id number] [phone] (HP) Date:2889-01-33SU [address] [place] [address] 29195KC: 01/27/2018 Secondary NOT GIVENUNK [place] Insurance:SELF PAY [facility] Hospital Number: Effective Repository Date:2018-01-27 01/27/2018 Anita K Primary Anita K [place] [id number] Insurance:[employer] CARE KeelerDOB: Community [place] MED[place]ARE[id number] [address]336Sex: (330) [id number] [phone] (HP) Date:6903-42-33HT [address] [place] [address] 01868WO: 01/27/2018 Secondary NOT GIVENUNK [place] Insurance:SELF PAY [facility] Number: Effective Repository Date:2018-01-13 01/26/2018 Anita K Primary Anita K [place] [id number] Insurance:[employer] CARE KeelerDOB: Community [place] MEDICAREPolicy 1946[address] Number: Repository 29097Oty: (330) [id number] [phone] (HP) Date:3405-46-93JE [address] [place] [address] 82262EW: 01/26/2018 Secondary NOT GIVENUNK [place] Insurance:SELF PAY [facility] Number: Effective Repository Date:2018-01-26 01/25/2018 Anita K Primary Anita K [place] [id number] Insurance:[employer] CARE KeelerDOB: Community [employer] MEDICAREPolicy [id number] Number: Repository 44305Rom: (330) [id number] [phone] (HP) Date:4077-41-84HL [address] [place] [address] 70268UV: 01/25/2018 Secondary NOT GIVENUNK [place]ji Insurance:SELF PAY [facility] Number: Effective Repository Date:2018-01-25 01/24/2018 [facility] KEELERDOB: [facility] [id number] MEDICARE HMOPolicy [id number] Repository [address] Number: [place], [place] [id number] [place], [place] [address]Cpk: (330) Date:2018-01-03 85481Wrc: 4507-63-53Yvhq [phone] (HP)Tel: (657) Name:NPO Jossue (HP) (WP) [facility] Hospital[facility]W[place] [place] [phone] (WP) 6[address]PJ: 01/22/2018 Anita Palomares Primary Anita Palomares Reji [id number] Insurance:[employer] CARE KeelerDOB: Community [place] MEDICAREPolicy [id number] Number: Repository 42832Tkb: 330 [id number] [phone] (HP) Date:1568-25-98VD BOX [facility] HospitalHeatherMIKARLYde [place] [address]IZ: 01/22/2018 Secondary NOT GIVENUNK [place] Insurance:SELF PAY [facility] Number: Effective Repository Date:2018-01-22 01/22/2018 Anita Palomares Primary Anita Jelani Reji [id number] Insurance:[employer] CARE KeelerDOB: Community [place] MEDICAREPolicy [id number] Number: Repository 06887Gog: 330 [id number] [phone] () Date:8936-83-65NM BOX [facility]ALTHCAREKARLYde [place] [address]UV: 01/22/2018 Secondary NOT GIVENUNK [place] Insurance:SELF PAY [facility] Number: Effective Repository Date:2018-01-22 01/22/2018 Anita Palomares Primary Anita Jelani [place] [id number] Insurance:[employer] CARE KeelerDOB: Community [place] MEDICAREPolicy [id number] Number: Repository 74134Hna: 330 [id number] [phone] (HP) Date:9121-27-14WJ JOSSUE [facility]ALTHCAREKARLYde [place], [place] [address]JR: 01/22/2018 Secondary NOT GIVENUNK [place]ji Insurance:SELF PAY [facility] Number: Effective Repository Date:2018-01-22 01/22/2018 Anita K Primary Anita K [place] [id number] Insurance:[employer] CARE KeelerDOB: Community [place] MEDICAREPolicy 1946[facility][birth year][facility] [place] Number: Repository 97480Dnt: (330) [id number] [phone] (HP) Date:1027-84-74QC BOX [facility] HospitalSOLAde [place] [address]IF: 01/22/2018 Secondary NOT GIVENUNK [place] Insurance:SELF PAY [facility] Number: Effective Repository Date:2018-01-22 01/21/2018 Anita K Primary Anita K [place] [id number] Insurance:[employer] CARE KeelerDOB: Community [place] MEDICAREPolicy 1946[facility][birth year][facility] [place] Number[place] Repository 96622Hsb: (330) [id number] [phone] (HP) Date:3577-61-03LE [address] [place] [address] 45987QU: 01/21/2018 Secondary NOT GIVENUNK [place] Insurance:SELF PAY [facility] Number: Effective Repository Date:2018-01-21 01/20/2018 Anita K Primary Anita K [place] [id number] Insurance:[employer] CARE KeelerDOB: Community [place] MEDICAREPolicy 1946[facility][birth year][facility] [place] Number: Repository 57195Chf: (330) [id number] [phone] (HP) Date:5588-16-78GZ [address] [place] [address] 69204OZ: 01/20/2018 Secondary NOT GIVENUNK [place] Insurance:SELF PAY [facility] Number: Effective Repository Date:2018-01-13 01/13/2018 Anita K Primary Anita K Reji [id number] Insurance:[employer] CARE KeelerDOB: Community [place] MEDICAREPolicy 1946[facility][birth year][facility] [place] Number[place] Repository 67656Qbn: (330) [id number] [phone] (HP) Date:6702-57-11CU [address] [place] [address] 07635TG: 01/13/2018 Secondary NOT GIVENUNK [place] Insurance:SELF PAY [facility] Number: Effective Repository Date:2018-01-06 01/06/2018 Anita Palomares Primary Anita Palomares [place] [id number] Insurance:[employer] CARE KeelerDOB: Community [place] MEDICAREPolicy 1946[facility][birth year][facility] [place] Number: Repository 83665Yuf: 330 [id number] [phone] (HP) Date:3435-40-97XB [address] [place] [address] 28694GQ: 01/06/2018 Secondary NOT GIVENUNK [place]ji Insurance:SELF PAY [facility] Number: Effective Repository Date:2017-12-30 12/31/2017 Anita Palomares Primary Anita Palomares [place] [id number] Insurance:[employer] CARE KeelerDOB: Community [place] MEDICAREPolicy 1946[facility][birth year][facility] [place] Number[place] Repository 61781Uel: 330 [id number] [phone] (HP) Date:0598-03-39OK [address] [place] [address] 64324LC: 12/31/2017 Secondary NOT GIVENUNK [place] Insurance:SELF PAY [facility] Number: Effective Repository Date:2017-12-31 12/30/2017 Anita Palomares Primary Anita Palomares [place] [id number] Insurance:SUMMA CARE KeelerDOB: Community [place] MEDICAREPolicy 1946[facility][birth year][facility] [place] Number[place] Repository 28715Bln: (330 [id number] [phone] (HP) Date:2524-87-16SN [address] [place] [address] 30922AF: 12/30/2017 Secondary NOT GIVENUNK Reji Insurance:SELF PAY [facility] Number: Effective Repository Date:2017-12-13 12/29/2017 Anita Palomares Primary Anita Palomares Reji [id number] Insurance:[employer] CARE KeelerDOB: Community [place] MEDICAREPolicy 1946[facility][birth year][facility] [place] Number: Repository 95708Klt: (330 [id number] [phone] (HP) Date:3545-87-03GC BOX [facility]ALTHCAREKARLYde [place], [place] [address]TN: 12/29/2017 Secondary NOT GIVENUNK [place]ji Insurance:SELF PAY [facility] Number: Effective Repository Date:2017-12-19 12/23/2017 Anita K Primary Anita K Reji [id number] Insurance:[employer] CARE KeelerDOB: Community [place] MEDICAREPolicy [id number] [place] Number: Repository 47677Yxf: (330 [id number] [phone] (HP) Date:3004-85-06UG [address] [place] [address] 54776OA: 12/23/2017 Secondary NOT GIVENUNK [place] Insurance:SELF PAY [facility] Number: Effective Repository Date:2017-12-13 12/20/2017 Anita K Primary Anita K [place] [id number] Insurance:SUM[employer] CARE KeelerDOB: Community [place] MEDICAREPolicy [id number] Number: Repository 62192Xuo: (330 [id number] [phone] (HP) Date:3852-61-88ON [address] [place] [address] 81035AA: 12/20/2017 Secondary NOT GIVENUNK [place] Insurance:SELF PAY [facility] Number: Effective Repository Date:2017-12-02 12/17/2017 Anita K Primary Anita K Reji [id number] Insurance:SUM[employer] CARE KeelerDOB: Community [place] MEDICAREPolicy [id number] [place] Number: Repository [address]Dor: (330 [id number] [phone] (HP) Date:3221-68-37LU [address] [place] [address] 42133MH: 12/17/2017 Secondary NOT GIVENUNK [place] Insurance:SELF PAY [facility] Hospital Number: Effective Repository Date:2017-11-17 12/14/2017 Anita K Primary Anita Palomares Reji [id number] Insurance:[employer] CARE KeelerDOB: Community [place] MEDICAREPolicy 1947[facility]05[facility] [place] Number[place] Repository 722[address]Lcj: (330) [id number] [phone] (HP) Date:8691-04-14SQ BOX [facility] HospitalSOL[facility] [place] [address]UX: 12/14/2017 Secondary NOT GIVENUNK [place] Insurance:SELF PAY [facility] Number: Effective Repository Date:2017-11-19 12/10/2017 Anita K Primary Anita Jelani [place] [id number] Insurance:[employer] CARE KeelerDOB: Community [place] MEDICAREPolicy 1946[facility][birth year][facility] [place] Repository 77693Dzz: (330) [id number] [phone] (HP) Date:8179-32-50AM [address] [place] [address] 09900MG: 12/10/2017 Secondary NOT GIVENUNK [place] Insurance:SELF PAY [facility] Number: Effective Repository Date:2017-12-02 12/02/2017 Anita Palomares Primary Anita Palomares [place] [id number] Insurance:SUM[employer] CARE KeelerDOB: Community [place] MEDICAREPolicy 1946[facility][birth year][facility] [place] Repository 20905Kbi: (330) [id number] [phone] (HP) Date:0222-57-01PX [address] [place] [address] 37965BZ: 12/02/2017 Secondary NOT GIVENUNK [place] Insurance:SELF PAY [facility] Number: Effective Repository Date:2017-11-17 11/25/2017 Anita Palomares Primary Anita Palomares [place] [id number] Insurance:SUMMA CARE KeelerDOB: Community [place] MEDICAREPolicy [facility][birth year][facility] [place] Repository 16960Dlb: (330) [id number] [phone] (HP) Date:8177-60-94KC [address] [place] [address] 42504SL: 11/25/2017 Secondary NOT GIVENUNK Rjei Insurance:SELF PAY [facility] Number: Effective Repository Date:2017-11-24 11/24/2017 Anita Palomares Primary Anita Palomares Reji [id number] Insurance:SUMMA CARE KeelerDOB: Community BR[place] MEDICAREPolicy [address] Number: Repository 08706Gnq: 330 [id number] [phone] (HP) Date:7333-47-40OI BOX [facility]CAREKARLYde [place] [address]XB: 11/24/2017 Secondary NOT GIVENUNK Reji Insurance:SELF PAY [facility] Number: Effective Repository Date:2017-11-24 11/22/2017 Anita Palomares Primary Anita K Reji [id number] Insurance:SUMMA CARE KeelerDOB: Community [place] MEDICAREPolicy [address] Number: Repository 73677Knw: (330 [id number] [phone] (HP) Date:8366-56-05AE [address]OX [facility]CAREKARLYde [place] [address]UV: 11/22/2017 Secondary NOT GIVENUNK [place] Insurance:SELF PAY [facility] Number: Effective Repository Date:2017-11-19 11/19/2017 Anita Palomares Primary Anita Palomares [place] [id number] Insurance:SUMMA CARE KeelerDOB: Community BR[employer] MEDICAREPolicy [address] Number: Repository 44877Obw: (330 [id number] [phone] (HP) Date:0966-97-48WI [address] [place] [address] 29925QJ: 11/19/2017 Secondary NOT GIVENUNK [place] Insurance:SELF PAY [facility] Number: Effective Repository Date:2017-11-17 11/17/2017 Anita Palomares Primary Anita Palomares Reji [id number] Insurance:SUMMA CARE KeelerDOB: Community BR[employer] MEDICAREPolicy [address] Number: Repository 58324Mwz: (330 [id number] [phone] (HP) Date:3510-30-75YL [address]OX [facility]ARE[facility]ARLYde [place] [address]OG: 11/17/2017 Secondary NOT GIVENUNK Reji Insurance:SELF PAY [facility] Number: Effective Repository Date:2017-11-17 11/16/2017 Anita Palomares Primary Anita Palomares [place] [id number] Insurance:SUMMA CARE KeelerDOB: Community [place] MEDICAREPolicy [id number] [place] Number[place] Repository [address]Qvw: (330 [id number] [phone] (HP) Date:1442-74-07ZZ [address] [place] [address] 09389IY: 11/16/2017 Secondary NOT GIVENUNK [place] Insurance:SELF PAY [facility] Number: Effective Repository Date:2017-10-19 11/05/2017 Anita Palomares Primary Anita Palomares Reji [id number] Insurance:SUMMA CARE KeelerDOB: Community BR[place] MEDICAREPolicy [id number] [place] Number: Repository 22632Cie: (330 [id number] [phone] (HP) Date:4954-69-13WF BOX [facility]AREKARLYde [place] [address]KO: 11/05/2017 Secondary NOT GIVENUNK [place] Insurance:SELF PAY [facility] Number: Effective Repository Date:2017-11-05 11/03/2017 Anita Palomares Primary Anita Palomares [place] [id number] Insurance:SUMMA CARE KeelerDOB: Community BR[place] MEDICAREPolicy [id number] [place] Number: Repository [address]Zyf: (330 [id number] [phone] (HP) Date:7106-71-12DG [address]OX [facility]AREKARLYde [place] [address]ZL: 11/03/2017 Secondary NOT GIVENUNK [place] Insurance:SELF PAY [facility] Number: Effective Repository Date:2017-11-02 11/02/2017 Anita Jelani Primary Anita K [place] [id number] Insurance:SUMMA CARE KeelerDOB: Community [place] MEDICAREPolicy [facility] [place] Repository [address]Yyh: (330) [id number] [phone] (HP) Date:2309-75-23EZ [address] [place] [address] 90018EB: 11/02/2017 Secondary NOT GIVENUNK [place] Insurance:SELF PAY [facility] Number: Effective Repository Date:2017-11-02 10/27/2017 Anita K Primary Anita K Reji [id number] Insurance:SUMMA CARE KeelerDOB: Community [place] MEDICAREPolicy [facility]05[facility] [place] Repository 80241Nhb: (330) [id number] [phone] (HP) Date:6342-88-28SZ [address] [place] [address] 71583VT: 10/27/2017 Secondary NOT GIVENUNK Reji Insurance:SELF PAY [facility] Number: Effective Repository Date:2017-10-25 10/22/2017 Anita Palomares Primary Anita Palomares Reji [id number] Insurance:SUMMA CARE KeelerDOB: Community [place] MEDICAREPolicy [facility]05[facility] [place] Repository 06[address]Gfd: (330) [id number] [phone] (HP) Date:4654-76-26FJ [address] [place] [address] 78700BY: 10/22/2017 Secondary NOT GIVENUNK [place] Insurance:SELF PAY [facility] Number: Effective Repository Date:2017-10-22 10/22/2017 Anita Palomares Primary Anita Palomares Reji [id number] Insurance:SUMMA CARE KeelerDOB: Community [place] MEDICAREPolicy [id number] Number: Repository 95449Zdz: (330) [id number] [phone] (HP) Date:0392-12-00FU [address] [place] [address] [place] [address]LD: 10/22/2017 Secondary NOT GIVENUNK Reji Insurance:SELF PAY [facility] Number: Effective Repository Date:2017-10-19 10/18/2017 Anita Palomares Primary Anita Palomares [place] [id number] Insurance:SUMMA CARE KeelerDOB: Community [place] MEDICAREPolicy [id number]: Repository [id number]: [phone] [phone] (HP) Date:[id number] [facility] [address]OQ: 10/18/2017 Secondary NOT GIVENUNK Reji Insurance:SELF PAY [facility] Number: Effective Repository Date:2017-09-19 10/16/2017 Anita [facility] An[facility] Reji [id number] Insurance:[employer] C[employer] KeelerDOB: Community [place] MED[id number] Number: Repository [id number]: ([phone] [id number] [phone] (HP) Date:[id number] [address] [place] [address] 62447KQ: 10/16/2017 Secondary NOT GIVENUNK [place] Insurance:SELF PAY [facility] Number: Effective Repository Date:2017-10-14 10/13/2017 Anita Palomares Primary Anita Palomares [place] [id number] Insurance:[employer] KeelerDOB: Community [place] MED[place]AREPolicy [id number] [place] Number: Repository [id number]: 330 [id number] [phone] (HP) Date:6418-73-49AF [address] [place] [address] 74797WF: 10/13/2017 Secondary NOT GIVENUNK Reji Insurance:SELF PAY [facility] Number: Effective Repository Date:2017-10-13 09/17/2017 Anita Palomares Primary Anita Palomares [place] [id number] Insurance:[employer] C[employer] KeelerDOB: Community [facility] [id number] Number: Repository [id number]: 330 [id number] [phone] (HP) Date:7921-05-35EH [address] [place] [address] 79647MN: 09/17/2017 Secondary NOT GIVENUNK [place] Insurance:SELF PAY [facility] Number: Effective Repository Date:2017-08-19 08/29/2017 Anita Palomares Primary Anita Jelani Reji [id number] Insurance:[employer] C[employer] KeelerDOB: Community [place] MEDICAREPolicy [id number] Number: Repository [id number]: ([phone] [id number] [phone] (HP) Date:4982-06-10HH [address] [place] [address] 88182RZ: 08/29/2017 Secondary NOT GIVENUNK Reji Insurance:SELF PAY [facility] Number: Effective Repository Date:2017-08-19 08/17/2017 Anita K Primary Anita Jelani Reji [id number] Insurance:[employer] KeelerDOB: Community [place] MEDICAREPolicy [id number] Number: Repository [id number]: ([phone] [id number] [phone] (HP) Date:8167-53-25PS [address] [place] [address] 10472WH: 08/17/2017 Secondary NOT GIVENUNK Reji Insurance:SELF PAY [facility] Number: Effective Repository Date:2017-07-27 08/02/2017 Anita Palomares Primary Anita Jelani [place] [id number] Insurance:[employer] KeelerDOB: Community [employer] MEDICAREPolicy [id number] Number: Repository [id number]: ([phone] [id number] [phone] (HP) Date:2713-66-54NP [address] [place] [address] 21579LH: 08/02/2017 Secondary NOT GIVENUNK Reji Insurance:SELF PAY Community [facility]Policy [facility] Number: Effective Repository Date:2017-07-22 07/20/2017 Anita Palomares Primary Anita Mendoza [id number] [facility] [place] MEDICAREPolicy [id number] [place] Number: Repository [id number]: 330 [id number] [phone] () Date:5436-81-05OS [address] [place] [address] 78838JK: 07/20/2017 Secondary NOT GIVENUNK [place] Insurance:SELF PAY [facility] Number: Effective Repository Date:2017-07-20 07/10/2017 Anita Palomares Primary Anita Mendoza [id number] [facility] [place] MEDICAREPolicy [id number] [place] Number: Repository [id number]: 330 [id number] [phone] () Date:4173-21-20QX [address] [place] [address] 23062HE: 07/10/2017 Secondary NOT GIVENUNK Reji Insurance:SELF PAY [facility] Number: Effective Repository Date:2017-07-10
== END ==
PROVIDERS: Family Provider Family Medicine; PCP Family Medicine; Referring Provider Internal Medicine Gastroenterology; Visit Provider Internal Medicine Gastroenterology
DX: K74.60 Unspecified cirrhosis of liver (principal)
CPT/HCPCS: 96365; 96366; 49083; P9047; A4216

== ENCOUNTER → 2018-05-25 12:20 | Outpatient (CLI) | payer MEDICARE, SELFPAY ==
[2018-05-19 11:29] VITALS: BMI 29.9
[2018-05-25 13:37] LABS: Color, Urine Yellow (Yellow); Glucose, Dipstick 250 mg/dl (Normal); Ketone-Dipstick Negative (Negative); Leukocyte Esterase-Dipstick 500 /ul (Negative); Nitrite-Dipstick Negative (Negative); Occult Blood-Urine 10 /ul (Negative); Protein-Dipstick 15 mg/dl (Negative); Urine Bilirubin Dipstick Negative (Negative); Urine Clarity Clear (Clear); Urine Urobilinogen Normal (Normal)
[2018-05-25 13:44] LABS: Red Blood Cells-Urine 0-5 SEEN /hpf (0-5); Squamous Epithelial Cells - UA 0-5 SEEN /hpf (5-10); White Blood Cells 10-25 SEEN /hpf (0-5)
[2018-05-25 13:47] LABS: International Normalized Ratio 1.1; Prothrombin Time (Protime)PT. 14.4 SECONDS (11.7-14.9)
[2018-05-25 13:48] LABS: Partial Thromboplast Time 28.2 Seconds (24.1-36.2)
[2018-05-25 13:50] LABS: Bacteria 1+ /hpf (None Seen); Mucous, Urine RARE /hpf (<or=2+)
[2018-05-25 14:03] LABS: Hemoglobin A1c 10.3 % (4.2-6.3)
[2018-05-25 14:09] LABS: ALB/GLOB Ratio 0.7 RATIO (0.9-2.4); AST(SGOT) 18 U/L (15-37); Alanine Aminotransfer ALT/SGPT 27 U/L (13-56); Albumin, Serum 2.6 g/dL (3.2-5.0); Alkaline Phosphatase 145 U/L (45-117); Anion Gap 6 (5-15); BUN 60 mg/dL (7-18); BUN/Creat Ratio 26.8 RATIO (10-20); Chloride 108 mmol/L (98-107); Cholesterol 106 mg/dL (200); Creatinine, Serum 2.24 mg/dL (0.55-1.02); EST Glomerular Filtration Rate 23 mL/min (>60); Est Glom Filt Rate - Afr Amer 28 mL/min (>60); Globulin 3.5 g/dL (2.2-4.2); Glucose 350 mg/dL (74-106); High Density Lipoprotein 25 mg/dL; Potassium 5.5 mmol/L (3.5-5.1); Protein, Total 6.1 g/dL (6.4-8.2); Sodium Level 137 mmol/L (136-145); Thyroid Stim Hormone (TSH) 2.39 uIU/mL (0.358-3.74); Triglycerides 95 mg/dL; Very Low Density Lipoprotein 19 mg/dL (5-40)
== END ==
PROVIDERS: Family Provider Family Medicine; PCP Family Medicine; Referring Provider Internal Medicine Gastroenterology; Visit Provider Internal Medicine Gastroenterology
DX: I10 Essential (primary) hypertension (principal); E11.9 Type 2 diabetes mellitus without complications; Z86.73 Personal history of transient ischemic attack (TIA), and cerebral infarction without residual deficits
CPT/HCPCS: 36415; 80053; 80061; 81001; 83036; 84443; 85610; 85730

== ENCOUNTER → 2018-05-27 10:20 | Outpatient (CLI) | payer MEDICARE, SELFPAY ==
[2018-05-19 11:29] VITALS: BMI 29.9
--- NOTE | 2018-05-27 10:25 | US_ITS ---
PROCEDURE: Ultrasound guided paracentesis. DATE OF EXAMINATION: May 27, 2018. INDICATION: Female, 72 years old. Ascites. PHYSICIAN: Rigo Britt M.D. TECHNIQUE: The risks, benefits, and alternatives to the procedure were explained to the patient. The specific risks of bleeding, infection, and damage to bowel were detailed and accepted. Witnessed informed consent was obtained. The abdomen was ultrasonographically surveyed. An appropriate pocket of fluid was identified at the right lower quadrant. The skin were cleaned and prepped in the usual sterile fashion. Using ultrasound guidance, the peritoneal cavity was accessed with a 5-Guatemalan paracentesis needle/catheter system. The trocar was removed. A total of 4500 ml of harsh-colored fluid were removed from the peritoneal cavity. The catheter was removed and a sterile dressing was applied. The procedure was well tolerated. US/Paracentesis with US IMPRESSION: Ultrasound guided paracentesis. Electronically Signed: Rigo Britt MD at 12:17 EST Tel [phone], Service support ,
[2018-05-27 10:42] VITALS: BP 108/53; BP 114/55; BP 122/62; BP 131/67; PULSE 73; PULSE 81; PULSE 90; RESP 16; O2SAT 100; O2SAT 97; O2SAT 99
== END ==
PROVIDERS: Family Provider Family Medicine; PCP Family Medicine; Referring Provider Internal Medicine Gastroenterology; Visit Provider Internal Medicine Gastroenterology
DX: K74.60 Unspecified cirrhosis of liver (principal)
CPT/HCPCS: 49083

== ENCOUNTER → 2018-06-02 10:23 | Outpatient (CLI) | payer MEDICARE, SELFPAY ==
[2018-05-19 11:29] VITALS: BMI 29.9
--- NOTE | 2018-06-02 10:27 | US_ITS ---
PROCEDURE: Ultrasound guided paracentesis. DATE OF EXAMINATION: June 02, 2018. INDICATION: Female, 72 years old. Ascites. PHYSICIAN: Rigo Britt M.D. TECHNIQUE: The risks, benefits, and alternatives to the procedure were explained to the patient. The specific risks of bleeding, infection, and damage to bowel were detailed and accepted. Witnessed informed consent was obtained. The abdomen was ultrasonographically surveyed. An appropriate pocket of fluid was identified at the right lower quadrant. The skin were cleaned and prepped in the usual sterile fashion. Using ultrasound guidance, the peritoneal cavity was accessed with a 5-Stateless paracentesis needle/catheter system. The trocar was removed. A total of 2450 ml of harsh-colored fluid were removed from the peritoneal cavity. The catheter was removed and a sterile dressing was applied. The procedure was well tolerated. US/Paracentesis with US IMPRESSION: Ultrasound guided paracentesis. Electronically Signed: Rigo Britt MD at 14:06 EST Tel [phone], Service support ,
[2018-06-02 10:45] VITALS: BP 142/75; PULSE 98; RESP 16; O2SAT 98; BMI 30.2
[2018-06-02 11:00] VITALS: BP 122/62; BP 126/62; PULSE 91; RESP 16; O2SAT 98
--- OUTSIDE RECORDS SUMMARY | 2018-07-19 04:50 | XMS RPT_ITS ---
:1945 Author Organization OHIP Support Name Relationship Address Phone NEIL MANTILLA Unavailable [address] + [place] [address] GAGE KIMBLE Unavailable [address] + [place] [address] R Unavailable Unavailable Unavailable DAVIDNEIL ANSARI Unavailable [address] + [place] [address] GAGE KIMBLE Unavailable [address] + [place] [address] R Unavailable Unavailable Unavailable DAVIDNEIL ANSARI Unavailable [address] + [place] [address] GAGE KIMBLE Unavailable [address] + [place] [address] R Unavailable Unavailable Unavailable DAVIDNEIL ANSARI Unavailable [address] + [place] [address] GAGE KIMBLE Unavailable [address] + [place] [address] R Unavailable Unavailable Unavailable DAVIDNEIL ANSARI Unavailable [address] + [place] [address] GAGE KIMBLE Unavailable [address] + [place] [address] R Unavailable Unavailable Unavailable DAVIDELAN NEIL Unavailable [address] + [place] [address] GAGE KIMBLE Unavailable [address] + [place] [address] R Unavailable Unavailable Unavailable DAVIDNEIL ANSARI Unavailable [address] + [place] [address] GAGE KIMBLE Unavailable [address] + [place] [address] R Unavailable Unavailable Unavailable NEIL MANTILLA Unavailable [address] + [place] [address] GAGE KIMBLE Unavailable [address] + [place] [address] R Unavailable Unavailable Unavailable NEIL MANTILLA Unavailable [address] + [place] [address] GAGE KIMBLE Unavailable [address] + [place] [address] R Unavailable Unavailable Unavailable NEIL MANTILLA Unavailable [address] + [place] [address] GAGE KIMBLE Unavailable [address] + [place] [address] R Unavailable Unavailable Unavailable NEIL MANTILLA Unavailable [address] + [place] [address] GAGE KIMBLE Unavailable [address] + [place] [address] R Unavailable Unavailable Unavailable NEIL MANTILLA Unavailable [address] + [place] [address] GAGE KIMBLE Unavailable [address] + [place] [address] R Unavailable Unavailable Unavailable NEIL MANTILLA Unavailable [address] + [place] [address] GAGE KIMBLE Unavailable [address] + [place] [address] R Unavailable Unavailable Unavailable NEIL MANTILLA Unavailable [address] + [place] [address] GAGE KIMBLE Unavailable [address] + [place] [address] R Unavailable Unavailable Unavailable NEIL MANTILLA Unavailable [address] + [place] [address] GAGE KIMBLE Unavailable [address] + [place] [address] R Unavailable Unavailable Unavailable NEIL MANTILLA Unavailable [address] + [place] [address] GAGE KIMBLE Unavailable [address] + [place] [address] R Unavailable Unavailable NEIL Matute Unavailable [address] + [place] [address] GAGE KIMBLE Unavailable [address] + [place] [address] R Unavailable Unavailable Unavailable NEIL MANTILLA Unavailable [address] + [place] [address] GAGE KIMBLE Unavailable [address] + [place] [address] R Unavailable Unavailable Unavailable NEIL MANTILLA Unavailable [address] + [place] [address] GAGE KIMBLE Unavailable [address] + [place] [address] R Unavailable Unavailable Unavailable NEIL MANTILLA Unavailable [address] + [place] [address] GAGE KIMBLE Unavailable [address] + [place] [address] R Unavailable Unavailable Unavailable NEIL MANTILLA Unavailable [address] + [place] [address] GAGE KIMBLE Unavailable [address] + [place] [address] R Unavailable Unavailable Unavailable NEIL MANTILLA Unavailable [address] + [place] [address] GAGE KIMBLE Unavailable [address] + [place] [address] R Unavailable Unavailable Unavailable NEIL MANTILLA Unavailable [address] + [place] [address] GAGE KIMBLE Unavailable [address] + [place] [address] R Unavailable Unavailable Unavailable NEIL MANTILLA Unavailable [address] + [place] [address] GAGE KIMBLE Unavailable [address] + [place] [address] R Unavailable Unavailable Unavailable NEIL MANTILLA Unavailable [address] + [place] [address] GAGE KIMBLE Unavailable [address] + [place] [address] R Unavailable Unavailable Unavailable NEIL MANTILLA Unavailable [address] + [place] [address] GAGE KIMBLE Unavailable [address] + [place] [address] R Unavailable Unavailable Unavailable NEIL MANTILLA Unavailable [address] + [place] [address] GAGE KIMBLE Unavailable [address] + [place] [address] R Unavailable Unavailable Unavailable NEIL MANTILLA Unavailable [address] + [place] [address] GAGE KIMBLE Unavailable [address] + [place] [address] R Unavailable Unavailable Unavailable NEIL MANTILLA Unavailable [address] + [place] [address] GAGE KIMBLE Unavailable [address] + [place] [address] R Unavailable Unavailable Unavailable NEIL MANTILLA Unavailable [address] + [place] [address] GAGE KIMBLE Unavailable [address] + [place] [address] R Unavailable Unavailable Unavailable NEIL MANTILLA Unavailable [address] + [place] [address] GAGE KIMBLE Unavailable [address] + [place] [address] R Unavailable Unavailable Unavailable NEIL MANTILLA Unavailable [address] + [place] [address] GAGE KIMBLE Unavailable [address] + [place] [address] R Unavailable Unavailable Unavailable NEIL MANTILLA Unavailable [address] + [place] [address] GAGE KIMLBE Unavailable [address] + [place] [address] R Unavailable Unavailable Unavailable NEIL MANTILLA Unavailable [address] + [place] [address] GAGE KIMBLE Unavailable [address] + [place] [address] R Unavailable Unavailable Unavailable NEIL MANTILLA Unavailable [address] + [facility] [place] [address] GAGE KIMBLE Unavailable [address] + [place] [address] R Unavailable Unavailable Unavailable NEIL MANTILLA Unavailable Unavailable + NEIL MANTILLA Unavailable Unavailable + GAGE KIMBLE Unavailable Unavailable + NEIL MANTILLA Unavailable [address] + [place] [address] GAGE KIMBLE Unavailable [address] + [place] [address] R Unavailable Unavailable Unavailable NEIL MANTILLA Unavailable [address] + [place] [address] GAGE KIMBLE Unavailable [address] + [place] [address] R Unavailable Unavailable Unavailable NEIL MANTILLA Unavailable [address] + [place] [address] GAGE KIMBLE Unavailable [address] + [place] [address] R Unavailable Unavailable Unavailable NEIL MANTILLA Unavailable [address] + [place] [address] GAGE KIMBLE Unavailable [address] + [place] [address] R Unavailable Unavailable Unavailable NEIL MANTILLA Unavailable [address] + [place] [address] GAGE KIMBLE Unavailable [address] + [place] [address] R Unavailable Unavailable Unavailable NEIL MANTILLA Unavailable [address] + [place] [address] GAGE KIMBLE Unavailable [address] + [place] [address] R Unavailable Unavailable Unavailable NEIL MANTILLA Unavailable [address] + [place] [address] GAGE KIMBLE Unavailable [address] + [place] [address] R Unavailable Unavailable NEIL Matute Unavailable [address] + [place] [address] GAGE KIMBLE Unavailable [address] + [place] [address] R Unavailable Unavailable Unavailable NEIL MANTILLA Unavailable [address] + [place] [address] GAGE KIMBLE Unavailable [address] + [place] [address] R Unavailable Unavailable Unavailable NEIL MANTILLA Unavailable [address] + [place] [address] GAGE KIMBLE Unavailable [address] + [place] [address] R Unavailable Unavailable Unavailable NEIL MANTILLA Unavailable [address] + [place] [address] GAGE KIMBLE Unavailable [address] + [place] [address] R Unavailable Unavailable Unavailable NEIL MANTILLA Unavailable [address] + [place] [address] GAGE KIMBLE Unavailable [address] + [place] [address] R Unavailable Unavailable Unavailable NEIL MANTILLA Unavailable [address] + [place] [address] GAGE KIMBLE Unavailable [address] + [place] [address] R Unavailable Unavailable Unavailable NEIL MANTILLA Unavailable [address] + [place] [address] GAGE KIMBLE Unavailable [address] + [place] [address] R Unavailable Unavailable Unavailable NEIL MANTILLA Unavailable [address] + [place] [address] GAGE KIMBLE Unavailable [address] + [place] [address] R Unavailable Unavailable Unavailable NEIL MANTILLA Unavailable [address] + [place] [address] GAGE KIMBLE Unavailable [address] + [place] [address] R Unavailable Unavailable Unavailable NEIL MANTILLA Unavailable [address] + [place] [address] GAGE KIMBLE Unavailable [address] + [place] [address] R Unavailable Unavailable Unavailable NEIL MANTILLA Unavailable [address] + [place] [address] GAGE KMIBLE Unavailable [address] + [place] [address] R Unavailable Unavailable Unavailable NEIL MANTILLA Unavailable [address] + [place] [address] GAGE KIMBLE Unavailable [address] + [place] [address] R Unavailable Unavailable Unavailable NEIL MANTILLA Unavailable [address] + [place] [address] GAGE KIMBLE Unavailable [address] + [place] [address] R Unavailable Unavailable Unavailable NEIL MANTILLA Unavailable [address] + [place] [address] GAGE KIMBLE Unavailable [address] + [place] [address] R Unavailable Unavailable Unavailable NEIL MANTILLA Unavailable [address] + [place] [address] GAGE KIMBLE Unavailable [address] + [place] [address] R Unavailable Unavailable Unavailable NEIL MANTILLA Unavailable [address] + [place] [address] GAGE KIMBLE Unavailable [address] + [place] [address] R Unavailable Unavailable Unavailable NEIL MANTILLA Unavailable [address] + [place] [address] GAGE KIMBLE Unavailable [address] + [place] [address] R Unavailable Unavailable Unavailable NEIL MANTILLA Unavailable [address] + [place] [address] GAGE KIMBLE Unavailable [address] + [place] [address] R Unavailable Unavailable NEIL Matute Unavailable [address] + [place] [address] GAGE KIMBLE Unavailable [address] + [place] [address] R Unavailable Unavailable Unavailable NEIL MANTILLA Unavailable [address] + [place] [address] GAGE KIMBLE Unavailable [address] + [place] [address] R Unavailable Unavailable Unavailable NEIL MANTILLA Unavailable [address] + [place] [address] GAGE KIMBLE Unavailable [address] + [place] [address] R Unavailable Unavailable Unavailable NEIL MANTILLA Unavailable [address] + [place] [address] GAGE KIMBLE Unavailable [address] + [place] [address] R Unavailable Unavailable Unavailable NEIL MANTILLA Unavailable [address] + [place] [address] GAGE KIMBLE Unavailable [address] + [place] [address] R Unavailable Unavailable Unavailable NEIL MANTILLA Unavailable [address] + [place] [address] GAGE KIMBLE Unavailable [address] + [place] [address] R Unavailable Unavailable Unavailable NEIL MANTILLA Unavailable [address] + [place] [address] GAGE KIMBLE Unavailable [address] + [place] [address] R Unavailable Unavailable Unavailable NEIL MANTILLA Unavailable [address] + [place] [address] GAGE KIMBLE Unavailable [address] + [place] [address] R Unavailable Unavailable Unavailable NEIL MANTILLA Unavailable [address] + [place] [address] GAGE KIMBLE Unavailable [address] + [place] [address] R Unavailable Unavailable Unavailable NEIL MANTILLA Unavailable [address] + [place] [address] GAGE KIMBLE Unavailable [address] + [place] [address] R Unavailable Unavailable Unavailable NEIL MANTILLA Unavailable [address] + [place] [address] GAGE KIMBLE Unavailable [address] + [place] [address] R Unavailable Unavailable Unavailable NEIL MANTILLA Unavailable [address] + [place] [address] GAGE KIMBLE Unavailable [address] + [place] [address] R Unavailable Unavailable Unavailable Care Team Providers Name Role Phone NICOLA PRICE Referring Unavailable NICOLA PRICE Attending Unavailable NICOLA PRICE Referring Unavailable NICOLA PRICE Referring Unavailable NICOLA PRICE Attending Unavailable NICOLA PRICE Referring Unavailable JONATHAN LOPEZ, DR. GONZALEZ Attending Unavailable VENKAT LOPEZ, DR. NICOLA Hartley Primary Care Unavailable Jonathan, Abimael Attending Unavailable Jonathan, Abimael Referring Unavailable Bay, Nicola Primary Care Unavailable Jaemeli, Abimael Attending Unavailable Jaemeli, Abimael Referring Unavailable Bay, Nicola Primary Care Unavailable Jaemeli, Abimael Attending Unavailable Jaemeli, Abimael Referring Unavailable Bay, Nicola Primary Care Unavailable Jonathan, Abimael Attending Unavailable Jabour, Abimael Referring Unavailable Bay, Nicola Primary Care Unavailable Jaemeli, Abimael Attending Unavailable Jabour, [place] Referring Unavailable Bay, Nicola Primary Care Unavailable Jabour, Abimael Attending Unavailable Jabour, Abimael Referring Unavailable Bay, Nicola Primary Care Unavailable Rob Claire Attending Unavailable Bay, Nicola Primary Care Unavailable Dakotah, Rob Attending Unavailable Bay, Nicola Primary Care Unavailable Claire, Rob Referring Unavailable Claire, Rob Attending Unavailable Bay, Nicola Primary Care Unavailable Claire, Rob Attending Unavailable Claire, Rob Referring Unavailable Bay, Nicola Primary Care Unavailable Dakotah, Rob Attending Unavailable Bay, Nicola Primary Care Unavailable Bay, Nicola Primary Care Unavailable Jose Alfredo Barnett Attending Unavailable Nicola Bay Attending Unavailable Bay, Nicola Referring Unavailable Bay, [...] Bay, Nicola Primary Care Unavailable Koram, Becky Gambino Attending Unavailable Jabour, Vincent Attending Unavailable Jabour, [...] Referring Unavailable Bay, Nicola Primary Care Unavailable Jason, [place] Attending Unavailable Bay, Nicola Referring Unavailable PROBLEMS PROBLEMS DATE TYPE CONDITION / CODE ATTENDING STATUS SOURCE 06/28/2018 Unknown R01.1 - Cardiac JasonAmerico mari Active [place] murmur, unspecified / Community R01.1(ICD-10) Hospital Repository 05/25/2018 Unknown 401.9 - Unspecified Abimael Castillo Active [facility] essential Community hypertension / Hospital 401.9(ICD-9) Repository 05/25/2018 Unknown I10 - Essential Abimael Castillo Active [place] (primary) Community hypertension / Hospital I10(ICD-10) Repository 05/25/2018 Unknown 250.00 - Diabetes Abimael Castillo Active [place] mellitus without Community mention of Hospital complication, type II Repository or unspecified type, not stated as uncontrolled / 250.00(ICD-9) 05/25/2018 Unknown E11.9 - Type 2 Abimael Castillo Active [facility] diabetes mellitus Community without complications Hospital / E11.9(ICD-10) Repository 05/23/2018 Unknown R18.8 - Other ascites Abimael Castillo Active [place] / R18.8(ICD-10) Community Hospital Repository 05/23/2018 Unknown K74.60 - Unspecified Abimael Castillo Active [place] cirrhosis of liver / Community K74.60(ICD-10) Hospital Repository 03/01/2018 Unknown D61.818 - Other AlbertNicola Active [facility] pancytopenia / Community D61.818(ICD-10) Hospital Repository 04/19/2018 Unknown E87.5 - Hyperkalemia Nicola Bay Active [facility] / E87.5(ICD-10) Community Hospital Repository 01/26/2018 Unknown K75.81 - Nonalcoholic Nicola Bay Active [place] steatohepatitis Community ([facility]) / Hospital K75.81(ICD-10) Repository 12/19/2017 Unknown E11.622 - Type 2 Jose Alfredo Barnett Active [place] diabetes mellitus Community with other skin ulcer Hospital / E11.622(ICD-10) Repository 03/31/2017 Active Other pancytopenia / NA Active [place] D61.818(ICD-10) Clinic Main [place] Repository 11/24/2017 Active Other iron deficiency NA Active [facility] anemias / Clinic Main D50.8(ICD-10) [place] Repository 10/13/2017 Unknown R14.0 - Abdominal Nicola Bay Active [facility] distension (gaseous) Community / R14.0(ICD-10) Hospital Repository 08/19/2017 Unknown I73.9 - Peripheral Rob Claire Active [place] vascular disease, Community unspecified / Hospital I73.9(ICD-10) Repository 07/22/2017 Unknown E11.65 - Type 2 Rob Claire Active [place] diabetes mellitus [facility] with hyperglycemia / Hospital E11.65(ICD-10) Repository 07/22/2017 Unknown L97.819 - Rob Claire Active [facility] Non-pressure chronic Community ulcer of other part Hospital of right lower leg Repository with unspecified severity / L97.819(ICD-10) 07/22/2017 Unknown R60.0 - Localized Rob Claire Active [place] edema / R60.0(ICD-10) [facility] Repository PROCEDURES PROCEDURES No Procedure Records FoundRESULTS RESULTS PARACENTESIS WITH US Observed: 07/07/2018 Status: F Source: [place] 10:09 AM [facility] REPOSITORY [facility] Imaging Services [address] [place] [address] Paracentesis with US MR#: [id number] Acct: [id number] Name: ANITA MCCALLUM Rep #: [id number] : 1945 F 72 From: Rigo Britt MD PCP: Nicola Bay MD Status: REG CLI Study: Paracentesis with US Date of Exam: 07/07/18 Exam# [id number] Ordering Dr: Abimael Castillo MD PROCEDURE: Ultrasound guided paracentesis. DATE OF EXAMINATION: July 07, 2018.. INDICATION: Female, 72 years old. Ascites. [...] the peritoneal cavity was accessed with a 5-Bruneian paracentesis needle/catheter system. The trocar was removed. A total of 7150 ml of harsh-colored fluid were removed from the peritoneal cavity. The catheter was removed and a sterile dressing was applied. The procedure was well tolerated. US/Paracentesis with US IMPRESSION: Ultrasound guided paracentesis. Electronically Signed: Rigo Britt MD at 13:34 EST Tel [phone], Service support , CC: Nicola Bay MD; Abimael Castillo Manufacturer'S Representative: Signed PARACENTESIS WITH US Observed: 06/30/2018 Status: F Source: [place] 9:55 AM [facility] Imaging Services [address] [place] [address] Paracentesis with US MR#: [id number] Acct: [id number] Name: ANITA MCCALLUM Rep #: [id number] : 1945 F 72 From: Rigo Britt MD PCP: Nicola Bay MD Status: REG CLI Study: Paracentesis with US Date of Exam: 06/30/18 Exam# [id number] Ordering Dr: Abimael Castillo MD PROCEDURE: Ultrasound guided paracentesis. DATE OF EXAMINATION: June 30, 2018. INDICATION: Female, 72 years old. Ascites. PHYSICIAN: Rigo Pedicelli, M.D. TECHNIQUE: The risks, benefits, and alternatives [...] the peritoneal cavity was accessed with a 5-Bruneian paracentesis needle/catheter system. The trocar was removed. A total of 6900 ml of harsh-colored fluid were removed from the peritoneal cavity. The catheter was removed and a sterile dressing was applied. The procedure was well tolerated. US/Paracentesis with US IMPRESSION: Ultrasound guided paracentesis. Electronically Signed: Rigo Britt MD at 11:28 EST Tel [phone], Service support , CC: Nicola Bay MD; Abimael Castillo Manufacturer'S Representative: Signed BASIC METABOLIC Collected: 06/29/2018 Status: F Source: [place] PROFILE (BMP) 1:10 PM [facility] REPOSITORY TYPE CODE TESTS RESULT OUT OF RANGE REFERENCE UNITS LAB L501.0100 74-106 mg/dL High GLU 296 Result Comment: Glucose result greater than or equal to 200 mg/dL suggests DIABETES MELLITUS per A.D.A. criteria. Please note revised GLUCOSE reference range effective 2017. LAB L501.1000 7-18 mg/dL High BUN 67 LAB L501.1100 0.55-1.02 mg/dL High CREAT,SERUM 1.85 Result Comment: The validity of the calculated GFR AND GFRAA in patients over 70 years has not been determined. Clinical correlation is essential. LAB L501.1110 >60 mL/min Low EST GFR 29 Result Comment: Non- GFR Calc LAB L501.1115 >60 mL/min Low EST GFR - AA 35 Result Comment: GFR Calc LAB L501.1300 10-20 RATIO High BUN/CRE 36.2 LAB L501.2200 8.5-10.1 mg/dL CA Normal 10.0 LAB L501.5300 136-145 mmol/L NA Normal 138 LAB L501.5600 3.5-5.1 mmol/L K Normal 4.9 LAB L501.5900 98-107 mmol/L High CL 108 LAB L501.6100 21.0-32.0 mmol/L Normal CO2 22.0 LAB L501.6200 5-15 Normal GAP 8 Performed By: #### L500.2500 #### [facility] [address] [place], [address] PROTHROMBIN TIME W/INR Collected: 06/29/2018 Status: F Source: [place] 1:10 PM [facility] REPOSITORY TYPE CODE TESTS RESULT OUT OF RANGE REFERENCE UNITS LAB L300.4150 11.7-14.9 SECONDS Normal PROTIME 13.2 LAB L300.4200 Normal INR 1.0 Performed By: #### L300.3900, L300.4310 #### [facility] [address] [place], [address] PARTIAL THROMBOPLAST Collected: 06/29/2018 Status: F Source: [place] TIME 1:10 PM [facility] REPOSITORY TYPE CODE TESTS RESULT OUT OF RANGE REFERENCE UNITS LAB L300.4310 24.1-36.2 Seconds Normal PTT 31.9 Performed By: #### L300.3900, L300.4310 #### [facility] [address] [place], [address] PARACENTESIS WITH US Observed: 06/23/2018 Status: F Source: [place] 10:11 AM [facility] REPOSITORY [facility] Imaging Services [address] [place] [address] Paracentesis with US MR#: [id number] Acct: [id number] Name: ANITA MCCALLUM Rep #: [id number] : 1945 F 72 From: Rigo Britt MD PCP: Nicola Bay MD Status: REG CLI Study: Paracentesis with US Date of Exam: 06/23/18 Exam# [id number] Ordering Dr: Abimael Castillo MD PROCEDURE: Ultrasound guided paracentesis. DATE OF EXAMINATION: 2018. INDICATION: Female, 72 years old. Ascites. [...] the peritoneal cavity was accessed with a 5-Bruneian paracentesis needle/catheter system. The trocar was removed. A total of 3550 ml of harsh-colored fluid were removed from the peritoneal cavity. The catheter was removed and a sterile dressing was applied. The procedure was well tolerated. US/Paracentesis with US IMPRESSION: Ultrasound guided paracentesis. Electronically Signed: Rigo Britt MD at 12:45 EST Tel [phone], Service support , CC: Nicola Bay MD; Abimael Castillo Manufacturer'S Representative: Signed PARACENTESIS WITH US Observed: 06/16/2018 Status: F Source: [place] 10:19 AM [facility] REPOSITORY [facility] Imaging Services [address] [place] [address] Paracentesis with US MR#: [id number] Acct: [id number] Name: ANITA MCCALLUM Rep #: [id number] : 1945 F 72 From: Danish Gao MD PCP: Nicola Bay MD Status: [facility] CL Study: Paracentesis with US Date of Exam: 06/16/18 Exam# [id number] Ordering Dr: Abimael Castillo MD PROCEDURE: ULTRASOUND GUIDED PARACENTESIS CLINICAL HISTORY: Female, 72 years old. CONSENT: Time-Out Called: Yes. Consent form signed: Yes. PT-PTT Levels Checked: Yes. SEDATION: no TECHNIQUE: FINDINGS: Following proper aseptic preparation and local anesthesia, 5 Bruneian catheter was inserted in the right side of the abdomen. 3410 ml of pale clear yellow fluid were aspirated. The patient tolerated the procedure well. Electronically Signed: Danish Gao, at 15:40 EST Tel , Service support , US/Paracentesis with US CC: Nicola Bay MD; Abimael Castillo Manufacturer'S Representative: Signed PARACENTESIS WITH US Observed: 06/09/2018 Status: F Source: [place] 11:06 AM [facility] Imaging Services [address] [place] [address] Paracentesis with US MR#: [id number] Acct: [id number] Name: ANITA MCCALLUM Rep #: [id number] : 1945 F 72 From: Rigo Britt MD PCP: Nicola Bay MD Status: REG CLI Study: Paracentesis with US Date of Exam: 06/09/18 Exam# [id number] Ordering Dr: Abimael Castillo MD PROCEDURE: Ultrasound guided paracentesis. DATE OF EXAMINATION: June 09, 2018. INDICATION: Female, 72 years old. Ascites. [...] the peritoneal cavity was accessed with a 5-Bruneian paracentesis needle/catheter system. The trocar was removed. A total of 4650 ml of harsh-colored fluid were removed from the peritoneal cavity. The catheter was removed and a sterile dressing was applied. The procedure was well tolerated. US/Paracentesis with US IMPRESSION: Ultrasound guided paracentesis. Electronically Signed: Rigo Britt MD at 13:55 EST Tel [phone], Service support , CC: Nicola Bay MD; Abimael Castillo Manufacturer'S Representative: Signed ECHO, COMPLETE W/ Observed: 06/06/2018 Status: F Source: [place] CONTRAST 4:49 PM [facility] REPOSITORY [facility] Cardiovascular Services [address] [place] [address] Echo Complete W/ Contrast 06/06/18 1408 MR#: [id number] Acct: [id number] Name: ANITA MCCALLUM Rep #: [id number] : 1945 72 From: Americo Gomez MD Attending Dr: Nicola Bay MD Status: REG CLI Ordering Dr: Nicola Bay MD Date: 06/06/18 Location: [facility] Sex: F C Admitted: Reason For Study: [...] Bay Performed By: Ciera Jarrett, RDCS, RVT 06/06/18 1649 Date Americo Gomez MD CC: Nicola Bay MD Date Dictated: 06/06/18 1408 Date Transcribed: 06/06/181648 Manufacturer'S Representative: Signed PARACENTESIS WITH US Observed: 06/02/2018 Status: F Source: [place] 10:27 AM [facility] REPOSITORY [facility] [address] [place] [address] Paracentesis with US MR#: [id number] Acct: [id number] Name: ANITA MCCALLUM Rep #: [id number] : 1945 F 72 From: Rigo Britt MD PCP: Nicola Bay MD Status: REG CLI Study: Paracentesis with US Date of Exam: 06/02/18 Exam# [id number] Ordering Dr: Abimael Castillo MD PROCEDURE: Ultrasound [...] the peritoneal cavity was accessed with a 5-Bruneian paracentesis needle/catheter system. The trocar was removed. A total of 2450 ml of harsh-colored fluid were removed from the peritoneal cavity. The catheter was removed and a sterile dressing was applied. The procedure was well tolerated. US/Paracentesis with US IMPRESSION: Ultrasound guided paracentesis. Electronically Signed: Rigo Britt MD at 14:06 EST Tel [phone], Service support , CC: Nicola Bay MD; Abimael Castillo Manufacturer'S Representative: Signed PARACENTESIS WITH US Observed: 05/27/2018 Status: F Source: [place] 10:25 AM [facility] REPOSITORY [facility] [address] [place] [address] Paracentesis with US MR#: [id number] Acct: [id number] Name: ANITA MCCALLUM Rep #: [id number] : 1945 F 72 From: Rigo Britt MD PCP: Nicola Bay MD Status: REG CLI Study: Paracentesis with US Date of Exam: 05/27/18 Exam# [id number] Ordering Dr: Abimael Castillo MD PROCEDURE: Ultrasound [...] the peritoneal cavity was accessed with a 5-Bruneian paracentesis needle/catheter system. The trocar was removed. A total of 4500 ml of harsh-colored fluid were removed from the peritoneal cavity. The catheter was removed and a sterile dressing was applied. The procedure was well tolerated. US/Paracentesis with US IMPRESSION: Ultrasound guided paracentesis. Electronically Signed: Rigo Britt MD at 12:17 EST Tel [phone], Service support , CC: Nicola Bay MD; Abimael Castillo Manufacturer'S Representative: Signed PROTHROMBIN TIME W/INR Collected: 05/25/2018 Status: F Source: [place] 12:26 PM [facility] REPOSITORY Order Comment: WANTS THE PT PTT WANTS THE [facility] LIPID TSH A1C TYPE CODE TESTS RESULT OUT OF RANGE REFERENCE UNITS LAB L300.4150 11.7-14.9 SECONDS Normal PROTIME 14.4 LAB L300.4200 Normal INR 1.1 Performed By: #### L300.3900, L300.4310 #### [facility] [address] [place], [place], [id number] PARTIAL THROMBOPLAST Collected: 05/25/2018 Status: F Source: [place] TIME 12:26 PM [facility] REPOSITORY Order Comment: WANTS THE PT PTT WANTS THE [facility] LIPID TSH A1C TYPE CODE TESTS RESULT OUT OF RANGE REFERENCE UNITS LAB L300.4310 24.1-36.2 Seconds Normal PTT 28.2 Performed By: #### L300.3900, L300.4310 #### [facility] [address] [facility] [place], [place], [address] URINALYSIS, COMPLETE Collected: 05/25/2018 Status: F Source: [place] 12:21 PM [facility] REPOSITORY Order Comment: WANTS THE PT PTT WANTS THE [facility] LIPID TSH A1C How was Urine Obtained? TONGUER TO SPECIFY TYPE CODE TESTS RESULT OUT [...] #### L400.0001, L501.9985, L500.4050, L500.4100, L501.9520 #### [facility] [address] [place], [place], [address] HEMOGLOBIN A1C Collected: 05/25/2018 Status: F Source: [place] 12:21 PM [facility] REPOSITORY Order Comment: DR.JABOUR DE LA GARZA THE PT PTT WANTS THE [facility] CMP LIPID TSH A1C TYPE CODE TESTS RESULT OUT OF RANGE REFERENCE UNITS LAB L501.9985 4.2-6.3 % High HGB A1C 10.3 Performed By: #### L400.0001, L501.9985, L500.4050, L500.4100, L501.9520 #### [facility] [address] [place], [place], [address] COMPREHENSIVE METABOLIC Collected: 05/25/2018 Status: F Source: [facility] 12:21 PM [facility] REPOSITORY Order Comment: DR.JABOUR WANTS THE PT PTT WANTS THE [facility] C[facility] LIPID TSH A1C TYPE CODE TESTS [...] #### L400.0001, L501.9985, L500.4050, L500.4100, L501.9520 #### [facility] [address] [place], [place], [id number] LIPID PROFILE Collected: 05/25/2018 Status: F Source: [place] 12:21 PM [facility] REPOSITORY Order Comment: WANTS THE PT PTT WANTS THE [facility] LIPID TSH A1C TYPE CODE TESTS RESULT [...] #### L400.0001, L501.9985, L500.4050, L500.4100, L501.9520 #### [facility] [address] [facility] [place], [place], [address] THYROID STIM HORMONE Collected: 05/25/2018 Status: F Source: [place] (TSH) 12:21 PM [facility] REPOSITORY Order Comment: WANTS THE PT PTT WANTS THE [facility] LIPID TSH A1C TYPE CODE TESTS RESULT OUT OF RANGE REFERENCE UNITS LAB L501.9520 0.358-3.74 uIU/mL Normal TSH 2.39 Performed By: #### L400.0001, L501.9985, L500.4050, L500.4100, L501.9520 #### [facility] [address] [facility], [address] PARACENTESIS WITH US Observed: 05/19/2018 Status: F Source: [place] 10:27 AM [facility] REPOSITORY [facility] [address] [place] [address] Paracentesis with US MR#: [id number] Acct: [id number] Name: ANITA MCCALLUM Rep #: [id number] : 1945 F 72 From: Rigo Britt MD PCP: Nicola Bay MD Status: REG CLI Study: Paracentesis with US Date of Exam: 05/19/18 Exam# [id number] Ordering Dr: Abimael Castillo MD PROCEDURE: Ultrasound [...] the peritoneal cavity was accessed with a 5-Bruneian paracentesis needle/catheter system. The trocar was removed. A total of 6500 ml of harsh-colored fluid were removed from the peritoneal cavity. The catheter was removed and a sterile dressing was applied. The procedure was well tolerated. US/Paracentesis with US IMPRESSION: Ultrasound guided paracentesis. Electronically Signed: Rigo Britt MD at 12:13 EST Tel [phone], Service support , CC: Nicola Bay MD; Abimael Castillo Manufacturer'S Representative: Signed PARACENTESIS WITH US Observed: 05/11/2018 Status: F Source: [place] 10:23 AM [facility] REPOSITORY [facility] [address] [place] [address] Paracentesis with US MR#: [id number] Acct: [id number] Name: ANITA MCCALLUM Rep #: [id number] : 1945 F 72 From: Rigo Britt MD PCP: Nicola Bay MD Status: REG CLI Study: Paracentesis with US Date of Exam: 05/11/18 Exam# [id number] Ordering Dr: Abimael Castillo MD PROCEDURE: Ultrasound [...] the peritoneal cavity was accessed with a 5-Bruneian paracentesis needle/catheter system. The trocar was removed. A total of 6800 ml of harsh-colored fluid were removed from the peritoneal cavity. The catheter was removed and a sterile dressing was applied. The procedure was well tolerated. US/Paracentesis with US IMPRESSION: Ultrasound guided paracentesis. Electronically Signed: Rigo Britt MD at 12:32 EST Tel [phone], Service support , CC: Nicola Bay MD; Abimael Castillo Manufacturer'S Representative: Signed PARACENTESIS WITH US Observed: 05/05/2018 Status: F Source: [place] 12:18 PM [facility] REPOSITORY [facility] [address] [place] [address] Paracentesis with US MR#: [id number] Acct: [id number] Name: ANITA MCCALLUM Rep #: [id number] : 1945 F 72 From: Rigo Britt MD PCP: Nicola Bay MD Status: REG CLI Study: Paracentesis with US Date of Exam: 05/05/18 Exam# [id number] Ordering Dr: Abimael Castillo MD PROCEDURE: Ultrasound [...] the peritoneal cavity was accessed with a 5-Bruneian paracentesis needle/catheter system. The trocar was removed. A total of 6100 ml of harsh-colored fluid were removed from the peritoneal cavity. The catheter was removed and a sterile dressing was applied. The procedure was well tolerated. US/Paracentesis with US IMPRESSION: Ultrasound guided paracentesis. Electronically Signed: Rigo Britt MD at 14:05 EST Tel [phone], Service support , CC: Nicola Bay MD; Abimael Castillo Manufacturer'S Representative: Signed PARACENTESIS WITH US Observed: 04/28/2018 Status: F Source: [place] 9:16 AM [facility] [address] [place] [address] Paracentesis with US MR#: [id number] Acct: [id number] Name: ANITA MCCALLUM Rep #: [id number] : 1945 F 72 From: Rigo Britt MD PCP: Nicola Bay MD Status: REG CLI Study: Paracentesis with US Date of Exam: 04/28/18 Exam# [id number] Ordering Dr: Abimael Castillo MD PROCEDURE: Ultrasound [...] the peritoneal cavity was accessed with a 5-Bruneian paracentesis needle/catheter system. The trocar was removed. A total of 6000 ml of harsh-colored fluid were removed from the peritoneal cavity. The catheter was removed and a sterile dressing was applied. The procedure was well tolerated. US/Paracentesis with US IMPRESSION: Ultrasound guided paracentesis. Electronically Signed: Rigo Britt MD at 11:12 EST Tel [phone], Service support , CC: Nicola Bay MD; Abimael Castillo Manufacturer'S Representative: Signed BASIC METABOLIC Collected: 04/27/2018 Status: F Source: [place] PROFILE (BMP) 12:18 PM [facility] REPOSITORY TYPE CODE TESTS RESULT OUT OF [...] GAP 6 Performed By: #### L500.2500 #### [facility] [address] [place], [place], [address] PROTHROMBIN TIME W/INR Collected: 04/27/2018 Status: F Source: [place] 12:18 PM [facility] REPOSITORY TYPE CODE TESTS RESULT OUT OF RANGE REFERENCE UNITS LAB L300.4150 11.7-14.9 SECONDS Normal PROTIME 13.5 LAB L300.4200 Normal INR 1.0 Performed By: #### L300.3900, L300.4310 #### [facility] [address] [place], [address] PARTIAL THROMBOPLAST Collected: 04/27/2018 Status: F Source: [place] TIME 12:18 PM [facility] REPOSITORY TYPE CODE TESTS RESULT OUT OF RANGE REFERENCE UNITS LAB L300.4310 24.1-36.2 Seconds Normal PTT 29.2 Performed By: #### L300.3900, L300.4310 #### [facility] [address] [place], [address] PARACENTESIS WITH US Observed: 04/21/2018 Status: F Source: [place] 12:17 PM [facility] REPOSITORY [facility] [address] [place] [address] Paracentesis with US MR#: [id number] Acct: [id number] Name: ANITA MCCALLUM Rep #: [id number] : 1945 F 72 From: Rigo Britt MD PCP: Nicola Bay MD Status: REG CLI Study: Paracentesis with US Date of Exam: 04/21/18 Exam# [id number] Ordering Dr: Abimael Castillo MD PROCEDURE: Ultrasound [...] the peritoneal cavity was accessed with a 5-Bruneian paracentesis needle/catheter system. The trocar was removed. A total of 7500 ml of harsh-colored fluid were removed from the peritoneal cavity. The catheter was removed and a sterile dressing was applied. The procedure was well tolerated. US/Paracentesis with US IMPRESSION: Ultrasound guided paracentesis. Electronically Signed: Rigo Britt MD at 13:46 EDT Tel [phone], Service support , CC: Nicola Bay MD; Abimael Castillo Manufacturer'S Representative: Signed PARACENTESIS WITH US Observed: 04/12/2018 Status: F Source: [place] 9:23 AM [facility] REPOSITORY [facility] [address] [place] [address] Paracentesis with US MR#: [id number] Acct: [id number] Name: ANITA MCCALLUM Rep #: [id number] : 1945 F 72 From: Rigo Britt MD PCP: Nicola Bay MD Status: REG CLI Study: Paracentesis with US Date of Exam: 04/12/18 Exam# [id number] Ordering Dr: Abimael Castillo MD PROCEDURE: Ultrasound [...] the peritoneal cavity was accessed with a 5-Bruneian paracentesis needle/catheter system. The trocar was removed. A total of 7000 ml of harsh-colored fluid were removed from the peritoneal cavity. The catheter was removed and a sterile dressing was applied. The procedure was well tolerated. US/Paracentesis with US IMPRESSION: Ultrasound guided paracentesis. Electronically Signed: Rigo Britt MD at 11:19 EDT Tel [phone], Service support , CC: Nicola Bay MD; Abimael Castillo Manufacturer'S Representative: Signed PARACENTESIS WITH US Observed: 03/31/2018 Status: F Source: [place] 10:23 AM [facility] REPOSITORY [facility] [address] [place] [address] Paracentesis with US MR#: [id number] Acct: [id number] Name: ANITA MCCALLUM Rep #: [id number] : 1945 F 72 From: Eladio Bazan MD PCP: Nicola Bay MD Status: REG CLI Study: Paracentesis with US Date of Exam: 03/31/18 Exam# [id number] Ordering Dr: Abimael Castillo MD PROCEDURE: ULTRASOUND [...] 10 mL of lidocaine 1% a 5 Bruneian drainage catheter is introduced in the right [...] , CC: Nicola Bay MD; Abimael Castillo Manufacturer'S Representative: Signed PARACENTESIS WITH US Observed: 03/24/2018 Status: F Source: [place] 10:13 AM [facility] REPOSITORY [facility] [address] [place] [address] Paracentesis with US MR#: [id number] Acct: [id number] Name: ANITA MCCALLUM Rep #: [id number] : 1945 F 72 From: Samra Martinez MD PCP: Nicola Bay MD Status: REG CLI Study: Paracentesis with US Date of Exam: 03/24/18 Exam# [id number] Ordering Dr: Abimael Castillo MD PROCEDURE: ULTRASOUND [...] 10 mL of lidocaine 1% a 5 Bruneian drainage catheter is introduced in the lower [...] , CC: Nicola Bay MD; Abimael Castillo Manufacturer'S Representative: Signed PROTHROMBIN TIME W/INR Collected: 03/23/2018 Status: F Source: [place] 12:18 PM [facility] REPOSITORY Order Comment: DR CASTILLO GETS PT, PTT, AND BMP DR HERCULES GETS RENAL TYPE CODE TESTS RESULT OUT OF RANGE REFERENCE UNITS LAB L300.4150 11.7-14.9 SECONDS Normal PROTIME 13.9 LAB L300.4200 Normal INR 1.1 Performed By: #### L300.3900, L300.4310 #### [facility] [address] [facility] [place], [place], [address] PARTIAL THROMBOPLAST Collected: 03/23/2018 Status: F Source: [place] TIME 12:18 PM [facility] REPOSITORY Order Comment: DR CASTILLO GETS PT, PTT, AND BMP DR HERCULES GETS RENAL TYPE CODE TESTS RESULT OUT OF RANGE REFERENCE UNITS LAB L300.4310 24.1-36.2 Seconds Normal PTT 27.6 Performed By: #### L300.3900, L300.4310 #### [facility] [address] [facility] [place], [place], [address] RENAL PROFILE Collected: 03/23/2018 Status: F Source: [place] 12:18 PM [facility] REPOSITORY Order Comment: DR CASTILLO GETS PT, [...] CO2 24.0 Performed By: #### L500.3600 #### [facility] [address] [facility] [place], [address] PARACENTESIS WITH US Observed: 03/17/2018 Status: F Source: [place] 10:21 AM [facility] REPOSITORY [facility] [address] [place] [address] Paracentesis with US MR#: [id number] Acct: [id number] Name: ANITA MCCALLUM Rep #: [id number] : 1945 F 72 From: Rigo Britt MD PCP: Nicola Bay MD Status: REG CLI Study: Paracentesis with US Date of Exam: 03/17/18 Exam# [id number] Ordering Dr: Abimael Castillo MD PROCEDURE: Ultrasound [...] the peritoneal cavity was accessed with a 5-Bruneian paracentesis needle/catheter system. The trocar was removed. A total of 4700 ml of harsh-colored fluid were removed from the peritoneal cavity. The catheter was removed and a sterile dressing was applied. The procedure was well tolerated. US/Paracentesis with US IMPRESSION: Ultrasound guided paracentesis. Electronically Signed: Rigo Britt MD at 11:19 EDT Tel [phone], Service support , CC: Nicola Bay MD; Abimael Castillo Manufacturer'S Representative: Signed PARACENTESIS WITH US Observed: 03/10/2018 Status: F Source: [place] 12:24 PM [facility] REPOSITORY [facility] [address] [place] [address] Paracentesis with US MR#: [id number] Acct: [id number] Name: ANITA MCCALLUM Rep #: [id number] : 1945 F 72 From: Rigo Britt MD PCP: Nicola Bay MD Status: REG CLI Study: Paracentesis with US Date of Exam: 03/10/18 Exam# [id number] Ordering Dr: Abimael Castillo MD PROCEDURE: Ultrasound [...] the peritoneal cavity was accessed with a 5-Bruneian paracentesis needle/catheter system. The trocar was removed. A total of 4300 ml of harsh-colored fluid were removed from the peritoneal cavity. The catheter was removed and a sterile dressing was applied. The procedure was well tolerated. US/Paracentesis with US IMPRESSION: Ultrasound guided paracentesis. Electronically Signed: Rigo Britt MD at 13:57 EDT Tel [phone], Service support , CC: Nicola Bay MD; Abimael Castillo Manufacturer'S Representative: Signed PROGRESS Observed: 03/08/2018 Status: COMPLETED Source: [place] 10:25 AM [facility] REPOSITORY HNO ID: [id number] Author: Nicola Price Service: (none) Author Type: [...] bone metastases. She didn't recall seeing a starter cup powder mixer in 2009. She denied musculoskeletal pain but [...] No spider angiomas. No palmar erythema. NEUROLOGIC: manufacturing helper II-XII are grossly intact. 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.818) Pancytopenia [...] 3 months. Nicola Price DO CNOVSP Observed: 03/08/2018 Status: COMPLETED Source: [place] 10:10 AM [facility] REPOSITORY Visit (SP) Office (MAHNAZ) ANITA MCCALLUM ([id number]) 1945 F Date Time Provider Department 03/08/18 [...] bone metastases. She didn't recall seeing a starter cup powder mixer in 2009. She denied musculoskeletal pain but [...] No spider angiomas. No palmar erythema. NEUROLOGIC: manufacturing helper II-XII are grossly intact. 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.818) Pancytopenia [...] Nicola Price DO Referring Provider: NICOLA PRICE [[id number]] Allergies As of Date: 03/08/2018 Noted Allergy [...] 9:59 AM >> ROSENDA DEL TORO MA jose de jesus Mar 08, 2018 9:59 AM No longer taking. METFORMIN 1,000 MG TABLET >> Rosenda Del Toro MA 03/08/2018 10:00 AM >> ROSENDA DEL TORO MA jose de jesus Mar 08, 2018 10:00 AM No longer taking. Problem List As Of Date 03/08/2018 Noted Resolved Anemia [D64.9] INVALID FOR* Pancytopenia (HCC) [D61.818] INVALID FOR* Hyperparathyroidism (HCC) [E21.3] INVALID FOR* Hypercalcemia [E83.52] INVALID FOR* Hypersplenism [D73.1] INVALID FOR* Encounter Status:Closed by NICOLA PRICE DO on 03/08/18 PARACENTESIS WITH US Observed: 03/03/2018 Status: F Source: [place] 12:22 PM [facility] REPOSITORY [facility] [address] [place] [address] Paracentesis with US MR#: [id number] Acct: [id number] Name: ANITA MCCALLUM Rep #: [id number] : 1945 F 72 From: Rigo Britt MD PCP: Nicola Bay MD Status: REG CLI Study: Paracentesis with US Date of Exam: 03/03/18 Exam# [id number] Ordering Dr: Abimael Castillo MD PROCEDURE: Ultrasound [...] the peritoneal cavity was accessed with a 5-Bruneian paracentesis needle/catheter system. The trocar was removed. A total of 4350 ml of harsh-colored fluid were removed from the peritoneal cavity. The catheter was removed and a sterile dressing was applied. The procedure was well tolerated. US/Paracentesis with US IMPRESSION: Ultrasound guided paracentesis. Electronically Signed: Rigo Britt MD at 15:51 EDT Tel [phone], Service support , CC: Nicola Bay MD; Abimael Castillo Manufacturer'S Representative: Signed [facility] ABS GR + CBC Collected: 03/01/2018 Status: F Source: [place] 1:01 PM [facility] TYPE CODE TESTS RESULT OUT OF REFERENCE UNITS RANGE LAB WWBC 3.70-11.00 k/uL Low [facility] WBC 2.85 LAB WRBC 3.90-5.20 m/uL Low [facility] RBC 3.22 LAB WHGB 11.5-15.5 g/dL Low [place] Hemoglobin 10.1 LAB WHCT 36.0-46.0 % Low [facility] Hematocrit 30.5 LAB WMCV 80.0-100.0 fL [facility] MCV 94.7 LAB WMCH 26.0-34.0 pg [place] MCH 31.4 LAB WMCHC 30.5-36.0 g/dL [place] MCHC 33.1 LAB WRDW 11.5-15.0 % [facility] RDW 14.1 LAB WPLT 150-400 k/uL Low [facility] Platelet Cnt 68 LAB WMPV 9.0-12.7 fL [facility] MPV 10.5 Result Comment: Test performed at: [facility], [address] [place] [address]. LAB ABGRAN 1.45-7.50 k/uL Absol Gran 2.10 Count COMP METABOLIC PANEL Collected: 03/01/2018 Status: F Source: [place] 12:59 PM [facility] REPOSITORY TYPE CODE TESTS RESULT OUT OF REFERENCE UNITS RANGE LAB TP 6.3-8.0 g/dL Test sent to [facility]. Result Comment: [facility] ALB 3.9-4.9 g/dL Test Albumin sent to [facility]. Result Comment: [facility] CA 8.5-10.2 mg/dL Test Calcium, Total sent to [facility]. Result Comment: [facility] TBIL 0.2-1.3 mg/dL Bilirubin, Test Total sent to [facility]. Result Comment: [facility] ALKP 32-117 U/L Alkaline Test Phosphatase sent to [facility]. Result Comment: [facility] AST 13-35 U/L Test sent AST to [facility]. Result Comment: [facility] GLU 74-99 mg/dL Test sent Glucose to [facility]. Result Comment: [facility] BUN 7-21 mg/dL Test sent BUN to [facility]. Result Comment: [facility] CRET 0.58-0.96 mg/dL Creatinine Test sent to [facility]. Result Comment: [facility] NA 136-144 mmol/L Test Sodium sent to [facility]. Result Comment: [facility] K 3.7-5.1 mmol/L Test Potassium sent to [facility]. Result Comment: [facility] CL 97-105 mmol/L Test Chloride sent to [facility]. Result Comment: [facility] CO2 22-30 mmol/L Test sent CO2 to [facility]. Result Comment: [facility] AGAP 9-18 mmol/L Test sent Anion Gap to [facility]. Result Comment: [facility] ALT 7-38 U/L Test sent to ALT [facility]. Result Comment: [facility] GFRAA eGFR- Amer. Test sent to [facility]. Result Comment: [facility] GFRNAA . eGFR-All Test sent Other Races to [facility]. Result Comment: [facility] GFRPED eGFR-Ped. Test sent Factor to [facility]. Result Comment: [facility] FERRITIN Collected: 03/01/2018 Status: F Source: [place] 12:59 PM [facility] REPOSITORY TYPE CODE TESTS RESULT OUT OF REFERENCE UNITS RANGE LAB FERR 14.7-205.1 ng/mL Test Ferritin sent to [facility]. Result Comment: [facility]redited [facility] IRON AND TIBC Collected: 03/01/2018 Status: F Source: [place] 12:59 PM [facility] REPOSITORY TYPE CODE TESTS RESULT OUT OF REFERENCE UNITS RANGE LAB IRN 41-186 ug/dL Test Iron sent to [facility]. Result Comment: [facility] TIBC 232-386 ug/dL Test sent TIBC to [facility]. Result Comment: [facility] SAT 15-57 % Transferrin Test sent Saturatn to [facility] [facility] Result Comment: Account Credited JASKARAN COMPREHENSIVE METABOLIC Collected: 03/01/2018 Status: F Source: [facility] 12:59 PM [facility] REPOSITORY TYPE CODE TESTS RESULT OUT OF [...] Normal GAP 7 Performed By: #### L500.4050, L503.6075, L503.6150, L503.6550 #### [facility] [address] [facility] [place], [place], [address] IRON BINDING Collected: 03/01/2018 Status: F Source: [facility] 12:59 PM [facility] REPOSITORY TYPE CODE TESTS RESULT OUT OF RANGE REFERENCE UNITS LAB L503.6075 250-450 ug/dL Normal TIBC 264 Performed By: #### L500.4050, L503.6075, L503.6150, L503.6550 #### [facility] [address] [place], [place], [address] IRON Collected: 03/01/2018 Status: F Source: [place] [facility] 12:59 PM [facility] REPOSITORY TYPE CODE TESTS RESULT OUT OF RANGE REFERENCE UNITS LAB L503.6150 50-170 ug/dL Normal IRON 92 Performed By: #### L500.4050, L503.6075, L503.6150, L503.6550 #### [facility] [address] [place], [place], [address] FERRITIN Collected: 03/01/2018 Status: F Source: [facility] 12:59 PM [facility] REPOSITORY TYPE CODE TESTS RESULT OUT OF REFERENCE UNITS RANGE LAB L503.6550 8-252 ng/mL High FERRITIN 303 Performed By: #### L500.4050, L503.6075, L503.6150, L503.6550 #### [facility] [address] [place], [address] PARACENTESIS WITH US Observed: 02/24/2018 Status: F Source: [facility] 10:21 AM [facility] REPOSITORY [facility] Imaging Services [address] [place] [address] Paracentesis with US MR#: [id number] Acct: [id number] Name: ANITA MCCALLUM Rep #: [id number] : 1945 F 72 From: Rigo Britt MD PCP: Nicola Bay MD Status: REG CLI Study: Paracentesis with US Date of Exam: 02/24/18 Exam# [id number] Ordering Dr: Abimael Castillo MD PROCEDURE: Ultrasound [...] the peritoneal cavity was accessed with a 5-Bruneian paracentesis needle/catheter system. The trocar was removed. A total of 5350 ml of harsh-colored fluid were removed from the peritoneal cavity. The catheter was removed and a sterile dressing was applied. The procedure was well tolerated. US/Paracentesis with US IMPRESSION: Ultrasound guided paracentesis. Electronically Signed: Rigo Britt MD at 14:37 EDT Tel [phone], Service support , CC: Nicola Bay MD; Abimael Castillo Manufacturer'S Representative: Signed PROTHROMBIN TIME W/INR Collected: 02/22/2018 Status: F Source: [place] 12:48 PM [facility] REPOSITORY TYPE CODE TESTS RESULT OUT OF RANGE REFERENCE UNITS LAB L300.4150 11.7-14.9 SECONDS Normal PROTIME 13.7 LAB L300.4200 Normal INR 1.1 Performed By: #### L300.3900, L300.4310 #### [facility] [address] [place], [address] PARTIAL THROMBOPLAST Collected: 02/22/2018 Status: F Source: [place] TIME 12:48 PM [facility] REPOSITORY TYPE CODE TESTS RESULT OUT OF RANGE REFERENCE UNITS LAB L300.4310 24.1-36.2 Seconds Normal PTT 29.1 Performed By: #### L300.3900, L300.4310 #### [facility] [address] [place], [address] PARACENTESIS WITH US Observed: 02/17/2018 Status: F Source: [place] 10:16 AM [facility] REPOSITORY [facility] Imaging Services [address] [place] [address] Paracentesis with US MR#: [id number] Acct: [id number] Name: ANITA MCCALLUM Rep #: [id number] : 1945 F 72 From: Rigo Britt MD PCP: Nicola Bay MD Status: REG CLI Study: Paracentesis with US Date of Exam: 02/17/18 Exam# [id number] Ordering Dr: Abimael Castillo MD PROCEDURE: Ultrasound guided paracentesis. DATE OF EXAMINATION: February 17, 2018. INDICATION: Female, 72 years old. Ascites. PHYSICIAN: Rigo Pedicelli, M.D. TECHNIQUE: The risks, benefits, and alternatives [...] the peritoneal cavity was accessed with a 5-Bruneian paracentesis needle/catheter system. The trocar was removed. A total of 6800 ml of harsh-colored fluid were removed from the peritoneal cavity. The catheter was removed and a sterile dressing was applied. The procedure was well tolerated. US/Paracentesis with US IMPRESSION: Ultrasound guided paracentesis. Electronically Signed: Rigo Britt MD at 12:46 EDT Tel [phone], Service support , CC: Nicola Bay MD; Abimael Castillo Manufacturer'S Representative: Signed PARACENTESIS WITH US Observed: 02/10/2018 Status: F Source: [place] 10:17 AM [facility] Imaging Services [address] [place] [address] Paracentesis with US MR#: [id number] Acct: [id number] Name: XENAANITA K Rep #: [id number] : 1945 F 72 From: Rigo Britt MD PCP: Nicola Bay MD Status: REG CLI Study: Paracentesis with US Date of Exam: 02/10/18 Exam# [id number] Ordering Dr: Abimael Castillo MD PROCEDURE: Ultrasound [...] the peritoneal cavity was accessed with a 5-Bruneian paracentesis needle/catheter system. The trocar was removed. A total of 2700 ml of harsh-colored fluid were removed from the peritoneal cavity. The catheter was removed and a sterile dressing was applied. The procedure was well tolerated. US/Paracentesis with US IMPRESSION: Ultrasound guided paracentesis. Electronically Signed: Rigo Britt MD at 11:19 EDT Tel [phone], Service support , CC: Nicola Bay MD; Abimael Castillo Manufacturer'S Representative: Signed PARACENTESIS WITH US Observed: 02/03/2018 Status: F Source: [place] 12:22 PM [facility] REPOSITORY [facility] Imaging Services [address] [place] [address] Paracentesis with US MR#: [id number] Acct: [id number] Name: XENAANITA Jelani Rep #: [id number] : 1945 F 72 From: Rigo Britt MD PCP: Nicola Bay MD Status: REG CLI Study: Paracentesis with US Date of Exam: 02/03/18 Exam# [id number] Ordering Dr: Abimael Castillo MD PROCEDURE: Ultrasound [...] the peritoneal cavity was accessed with a 5-Bruneian paracentesis needle/catheter system. The trocar was removed. A total of 5600 ml of harsh-colored fluid were removed from the peritoneal cavity. The catheter was removed and a sterile dressing was applied. The procedure was well tolerated. US/Paracentesis with US IMPRESSION: Ultrasound guided paracentesis. Electronically Signed: Rigo rBitt MD at 13:57 EDT Tel [phone], Service support , CC: Nicola Bay MD; Abimael Castillo Manufacturer'S Representative: Signed 12 LEAD ELECTROCARDIOGRAM Observed: 01/31/2018 Status: F Source: [place] 3:21 PM [facility] REPOSITORY [facility] Cardiovascular Services [address] [place] [address] 12 Lead EKG 01/22/18 1110 MR#: [id number] Acct: [id number] Name: ANITA MCCALLUM Rep #: [id number] : 1945 72 From: Americo Gomez MD Attending Dr: Becky Wharton MD Status: DIS IN Ordering Dr: Jose Ellis MD Date: 01/22/18 Location: U Sex: F C Admitted: 01/22/18 Test Reason : AB LABS Blood Pressure : / mmHG Vent. Rate : 078 BPM Atrial Rate : 078 BPM P-R Int : 142 ms QRS Dur : 082 ms QT Int : 342 ms P-R-T Axes : 046 006 016 degrees QTc Int : 389 ms Normal sinus rhythm Normal ECG Confirmed by JASON SHAW, AMERICO ([id number]), social media editor MARLEY ASHFORD ([id number]) on 01/31/2018 3:20:55 PM Referred By: SANTI Confirmed By:AMERICO GOMEZ MD 01/31/18 1521 Date Americo Gomez MD CC: Jose Ellis MD; Becky Whraton MD; Nicola Bay MD Signed PARACENTESIS WITH US Observed: 01/27/2018 Status: F Source: [facility] 10:12 AM [facility] REPOSITORY [facility] Imaging Services [address] [place] [address] Paracentesis with US MR#: [id number] Acct: [id number] Name: ANITA MCCALLUM Rep #: [id number] : 1945 F 72 From: Eladio Bazan MD PCP: Nicola Bay MD Status: REG CLI Study: Paracentesis with US Date of Exam: 01/27/18 Exam# [id number] Ordering Dr: Abimael Castillo MD PROCEDURE: ULTRASOUND [...] the peritoneal cavity was accessed with a 5-Bruneian paracentesis needle/catheter system. The trocar was removed. [...] , CC: Nicola Bay MD; Abimael Castillo Manufacturer'S Representative: Signed BASIC METABOLIC Collected: 01/26/2018 Status: F Source: [place] PROFILE (BMP) 4:43 PM [facility] REPOSITORY TYPE CODE TESTS RESULT OUT OF [...] 9 GAP Performed By: #### L500.2500 #### [facility] [place], [address] K Collected: 01/24/2018 Status: F Source: [facility] 8:49 AM [facility] REPOSITORY TYPE CODE TESTS RESULT OUT OF REFERENCE UNITS RANGE LAB K(LOINC) 3.5-5.1 mmol/L Potassium Level 4.6 Performed By: #### K #### [facility] [address] [place] [address] DISCHARGE SUMMARY Observed: 01/23/2018 Status: F Source: [place] 5:08 PM [facility] REPOSITORY [facility] Medical Records Department [address] [place] [address] Discharge Summary 01/23/18 1055 MR#: [id number] Acct: [id number] Name: ANITA MCCALLUM Rep #: [id number] : 1945 72 From: Becky Wharton MD PCP: Nicola Bay MD Status: DIS IN Y Location: [place] [address] Discharge Date and Diagnosis Date of Admission: [...] as per preferred to follow-up with a chick room supervisor that she has seen in [place] before. She is to call the chick room supervisor office for an appointment. Patient is to follow-up with her barrel driller Dr. Castillo in [facility] she has scheduled EGD with him tomorrow [...] apply): None applicable Code Visit Inpatient E AND M: 56933 Disch Hosp 01/23/18 1708 <Electronically signed by Becky Wharton MD> Date Becky Wharton MD Cosigner Signature (if applicable): Date CC: Becky Wharton MD; Nicola Bay MD Signed DISCHARGE INSTRUCTION Observed: 01/23/2018 Status: F Source: [facility] 10:54 AM [facility] REPOSITORY [facility] Medical Records Department [address] [place] [address] Instructions for Home/Discharge Instructions 01/23/18 1043 MR#: [id number] Acct: [id number] Name: ANITA MCCALLUM Rep #: [id number] : 1945 72 From: Becky Wharton MD [...] Potassium Excess Additional Instructions: FOLLOW UP WITH LINE ASSEMBLER IN [place] IN ONE WEEK TO EDUCATE ABOUT LOW [...] BEDSIDE GLUCOSE Collected: 01/23/2018 Status: F Source: [facility] 6:53 AM [facility] REPOSITORY TYPE CODE TESTS RESULT OUT OF REFERENCE UNITS RANGE LAB L501.080 70-110 mg/dL High BEDSIDE GLU 162 Result Comment: MANAGEMENT OF PATIENT CARE PER NURSING PROTOCOL Performed By: #### L501.080 #### [facility] [place] [address] [address] BASIC METABOLIC Collected: 01/23/2018 Status: F Source: [facility] PROFILE (BMP) 5:55 AM [facility] REPOSITORY TYPE CODE TESTS RESULT OUT OF [...] GAP 6 Performed By: #### L500.2500 #### [facility] [address] [place], [address] CBC W/DIFF, AUTOMATED Collected: 01/23/2018 Status: F Source: [place] 5:55 AM [facility] REPOSITORY TYPE CODE TESTS RESULT OUT OF [...] COMMENT SCANNED Performed By: #### L100.0100 #### [facility] [address] [place], [address] BEDSIDE GLUCOSE Collected: 01/22/2018 Status: F Source: [facility] 9:59 PM [facility] REPOSITORY TYPE CODE TESTS RESULT OUT OF REFERENCE UNITS RANGE LAB L501.080 70-110 mg/dL High BEDSIDE GLU 247 Result Comment: MANAGEMENT OF PATIENT CARE PER NURSING PROTOCOL Performed By: #### L501.080 #### [facility] Point of Care [address] [place] [address] CONSULTATION Observed: 01/22/2018 Status: F Source: [facility] 6:58 PM [facility] REPOSITORY [facility] Medical Records Department [address] [place] [address] Consultation 01/22/18 1844 MR#: [id number] Acct: [id number] Name: ANITA MCCALLUM Rep #: [id number] : 1945 72 From: Alesia Hercules MD PCP: Nicola Bay MD Status: ADM IN Location: [place] [address] Problem List (1) Acute kidney injury superimposed [...] (Tenormin (Beta Geraldine)) 100 mg PO DAILY KISHOR Dextrose (D50w Syringe) 0 gm IV X1 PRN; Protocol PRN Reason: Hypoglycemia Glucagon () 1 mg IM .X1 PRN PRN Reason: Hypoglycemia Sodium Chloride () 1,000 mls @ 75 mls/hr IV .[id number] [facility] Last Admin: 01/22/18 13:47 Dose: 75 mls/hr [...] paracentesis Avoid IV contrast No need of FEED INSPECTION SUPERVISOR Check renal chem in am 2- Hyperkalemia: [...] continue to follow ALESIA HERCULES MD 01/22/18 8804 <Electronically signed by Alesia Hercules MD> Date Alesia Hercules MD Cosigner Signature (if applicable): Date CC: Alesia Hercules MD; Nicola Bay MD Signed HISTORY AND PHYSICAL Observed: 01/22/2018 Status: F Source: [place] EXAM 4:42 PM [facility] REPOSITORY [facility] Medical Records Department [address] [place] [address] History and Physical 01/22/18 1153 MR#: [id number] Acct: [id number] Name: ANITA MCCALLUM Rep #: [id number] : 1945 72 From: Becky Wharton MD PCP: Nicola Bay MD Status: ADM IN Location: [place] [id number] Problem List (1) Hyperkalemia Status: Acute History [...] done was 2 days ago and her barrel driller office and she states 5.5 L of [...] 32. * Decision to transfer patient to [facility] on account of lack of Kayexalate [...] Her niece will be her power of litigation attorney. Family counseled to bring a copy of the living w1ll. Jfgh-mo-oeic time 15 minutes This note was generated with FireScope dictation software. It may contain incorrect words, spelling, and punctuation that were not noted in checking the note before signing. * Code Visit Inpatient E AND M: 50476 Subs Hosp L3 Procedures: 45687 Advncd Care Plan 30 Min 01/22/18 1642 <Electronically signed by Becky Wharton MD> Date Becky Wharton MD Cosigner Signature: Date (if applicable) CC: Becky Wharton MD; Nicola Bay MD Signed BEDSIDE GLUCOSE Collected: 01/22/2018 Status: F Source: [facility] 4:37 PM [facility] REPOSITORY TYPE CODE TESTS RESULT OUT OF REFERENCE UNITS RANGE LAB L501.080 70-110 mg/dL High BEDSIDE GLU 282 Result Comment: MANAGEMENT OF PATIENT CARE PER NURSING PROTOCOL Performed By: #### L501.080 #### [facility] Point of Care [address] [facility] [place] [address] BASIC METABOLIC Collected: 01/22/2018 Status: F Source: [facility] PROFILE (BMP) 3:18 PM [facility] REPOSITORY TYPE CODE TESTS RESULT OUT OF [...] GAP 8 Performed By: #### L500.2500 #### [facility] [address] [place], [address] URINE SODIUM Collected: 01/22/2018 Status: F Source: [place] 2:05 PM [facility] REPOSITORY Order Comment: Order Date: 01/22/18 TYPE CODE TESTS RESULT OUT OF RANGE REFERENCE UNITS LAB L501.5500 Not Establ. mmol/L Normal UR NA 32 Performed By: #### L501.5500 #### [facility] [address] [facility] [place], [address] CREATININE, URINE Collected: 01/22/2018 Status: F Source: [place] 2:05 PM [facility] REPOSITORY Order Comment: Order Date: 01/22/18 TYPE CODE TESTS RESULT OUT OF RANGE REFERENCE UNITS LAB L502.0300 NO RANGE EST. mg/dL Normal URINE 60.50 CREAT Performed By: #### L502.0300 #### [facility] [address] [place], [address] UREA NITROGEN, URINE Collected: 01/22/2018 Status: F Source: [facility] 2:05 [facility] REPOSITORY Order Comment: Order Date: 01/22/18 TYPE CODE TESTS RESULT OUT OF RANGE REFERENCE UNITS LAB L502.0715 NO RANGE EST. mg/dL Normal URINE 810 UREA Performed By: #### L502.0715 #### [facility] [address] [place], [address] URINALYSIS, COMPLETE Collected: 01/22/2018 Status: F Source: [place] 2:05 PM [facility] REPOSITORY Order Comment: Order Date: 01/22/18 How was Urine Obtained? TONGUER TO SPECIFY TYPE CODE TESTS RESULT OUT [...] 0-5 SEEN Performed By: #### L400.0001 #### [facility] [address] [facility] [place], [address] KIDNEY AND BLADDER Observed: 01/22/2018 Status: F Source: [place] 12:52 PM [facility] REPOSITORY [facility] Imaging Services [address] [place] [address] Kidney and Bladder MR#: [id number] Acct: [id number] Name: ANITA MCCALLUM Rep #: [id number] : 1945 F 72 From: Candice Patel MD PCP: Nicola Bay MD Status: ADM IN Study: Kidney and Bladder Date of Exam: 01/22/18 Exam# [id number] Ordering Dr: Becky Wharton MD STUDY: RENAL [...] CC: Becky Wharton MD; Nicola Bay MD Manufacturer'S Representative: Signed EMERGENCY DEPARTMENT Observed: 01/22/2018 Status: F Source: [place] [facility] SUMMARY 11:52 AM [facility] Medical Records Department [address] [place] [address] Emergency Department Summary 01/22/18 1102 MR#: [id number] Acct: [id number] Name: ANITA MCCALLUM Rep #: [id number] : 1945 72 From: Jose Ellis MD [...] kidney injury This note was generated with FireScope dictation software. It may contain incorrect words, [...] your Primary Care Provider. Call [facility] ([phone]) or report to the closest Emergency Room. Call 911 if necessary. 01/22/18 1152 <Electronically signed by Jose Ellis MD> Date Jose Ellis MD Cosigner Signature (If Indicated): Date CC: Nicola Bay MD CBC W/DIFF, AUTOMATED Collected: 01/22/2018 Status: F Source: [facility] 11:07 AM [facility] REPOSITORY TYPE CODE TESTS RESULT OUT OF [...] COMMENT SCANNED Performed By: #### L100.0100 #### [facility] [address] [place], [place], [address] BASIC METABOLIC Collected: 01/22/2018 Status: F Source: [facility] PROFILE (BMP) 8:25 AM [facility] REPOSITORY TYPE CODE TESTS RESULT OUT OF [...] 5 GAP Performed By: #### L500.2500 #### [facility] [address], [address] CBC W/DIFF, AUTOMATED Collected: 01/21/2018 Status: F Source: [facility] 1:59 PM [facility] REPOSITORY TYPE CODE TESTS RESULT OUT OF [...] LYMPHOPENIA NOTED Performed By: #### L100.0100 #### [facility] [address] [place], [place], [address] COMPREHENSIVE METABOLIC Collected: 01/21/2018 Status: F Source: [facility] 1:59 PM [facility] REPOSITORY TYPE CODE TESTS RESULT OUT OF [...] Result(s) Called at: 16:26:21 01/21/2018 by: Chanel Ashford LAB L501.5900 98-107 mmol/L High CL 109 LAB L501.6100 21.0-32.0 mmol/L Normal CO2 24.0 LAB L501.6200 5-15 Normal 7 GAP Performed By: #### L500.4050 #### [facility] [address] [place], [place], [address] AMMONIA Collected: 01/21/2018 Status: F Source: [place] 1:59 PM [facility] REPOSITORY TYPE CODE TESTS RESULT OUT OF REFERENCE UNITS RANGE LAB L503.5510 11-32 umol/L High AMMONIA 39.0 Performed By: #### L503.5510 #### [facility] [address] [place], [address] PARACENTESIS WITH US Observed: 01/20/2018 Status: F Source: [facility] 12:20 PM [facility] REPOSITORY [facility] Imaging Services [address] [place] [address] Paracentesis with US MR#: [id number] Acct: [id number] Name: ANITA MCCALLUM Rep #: [id number] : 1945 F 72 From: Rigo Britt MD PCP: Nicola Bay MD Status: REG CLI Study: Paracentesis with US Date of Exam: 01/20/18 Exam# [id number] Ordering Dr: Abimael Castillo MD PROCEDURE: Ultrasound [...] the peritoneal cavity was accessed with a 5-Bruneian paracentesis needle/catheter system. The trocar was removed. A total of 5500 ml of harsh-colored fluid were removed from the peritoneal cavity. The catheter was removed and a sterile dressing was applied. The procedure was well tolerated. US/Paracentesis with US IMPRESSION: Ultrasound guided paracentesis. Electronically Signed: Rigo Britt MD at 13:53 EDT Tel [phone], Service support , CC: Nicola Bay MD; Abimael Castillo Manufacturer'S Representative: Signed PROTHROMBIN TIME W/INR Collected: 01/19/2018 Status: F Source: [facility] 12:16 PM [facility] REPOSITORY TYPE CODE TESTS RESULT OUT OF RANGE REFERENCE UNITS LAB L300.4150 11.7-14.9 SECONDS Normal PROTIME 13.4 LAB L300.4200 Normal INR 1.0 Performed By: #### L300.3900, L300.4310 #### [facility] [address] [place], [address] PARTIAL THROMBOPLAST Collected: 01/19/2018 Status: F Source: [facility] TIME 12:16 PM [facility] REPOSITORY TYPE CODE TESTS RESULT OUT OF RANGE REFERENCE UNITS LAB L300.4310 24.1-36.2 Seconds Normal PTT 27.9 Performed By: #### L300.3900, L300.4310 #### [facility] [address] [place], [address] PARACENTESIS WITH US Observed: 01/13/2018 Status: F Source: [facility]I 12:17 PM [facility] REPOSITORY [facility] Imaging Services [address] [place] [address] Paracentesis with US MR#: [id number] Acct: [id number] Name: ANITA MCCALLUM Rep #: [id number] : 1945 F 72 From: Shaheen Alcocer MD PCP: Nicola Bay MD Status: REG CLI Study: Paracentesis with US Date of Exam: 01/13/18 Exam# [id number] Ordering Dr: Abimael Castillo MD PROCEDURE: ULTRASOUND [...] , CC: Nicola Bay MD; Abimael Castillo Manufacturer'S Representative: Signed PARACENTESIS WITH US Observed: 01/06/2018 Status: F Source: [place] 12:14 PM [facility] REPOSITORY [facility] Imaging Services [address] [place] [address] [place] [address] Paracentesis with US MR#: [id number] Acct: [id number] Name: ANITA MCCALLUM Rep #: [id number] : 1945 F 72 From: Rigo Britt MD PCP: Nicola Bay MD Status: REG CLI Study: Paracentesis with US Date of Exam: 01/06/18 Exam# [id number] Ordering Dr: Abimael Castillo MD PROCEDURE: Ultrasound [...] the peritoneal cavity was accessed with a 5-Bruneian paracentesis needle/catheter system. The trocar was removed. A total of 4350 ml of harsh-colored fluid. were removed from the peritoneal cavity. The catheter was removed and a sterile dressing was applied. The procedure was well tolerated. US/Paracentesis with US IMPRESSION: Ultrasound guided paracentesis. Electronically Signed: Rigo Britt MD at 14:01 EDT Tel [phone], Service support , CC: Nicola Bay MD; Abimael Castillo Manufacturer'S Representative: Signed BASIC METABOLIC Collected: 12/31/2017 Status: F Source: [place] PROFILE ([facility]) 2:21 PM [facility] REPOSITORY TYPE CODE TESTS RESULT OUT OF [...] GAP 7 Performed By: #### L500.2500 #### [facility] [place], [address] PARACENTESIS WITH US Observed: 12/30/2017 Status: F Source: [facility]JI 1:00 PM [facility] REPOSITORY [facility] [place] [address] Paracentesis with US MR#: [id number] Acct: [id number] Name: ANITA MCCALLUM Rep #: [id number] : 1945 F 72 From: Rigo Britt MD PCP: Nicola Bay MD Status: REG CLI Study: Paracentesis with US Date of Exam: 12/30/17 Exam# [id number] Ordering Dr: Abimael Castillo MD PROCEDURE: Ultrasound [...] the peritoneal cavity was accessed with a 5-Bruneian paracentesis needle/catheter system. The trocar was removed. A total of 4700 ml of harsh-colored fluid were removed from the peritoneal cavity. The catheter was removed and a sterile dressing was applied. The procedure was well tolerated. US/Paracentesis with US IMPRESSION: Ultrasound guided paracentesis. Electronically Signed: Rigo Britt MD at 15:17 EDT Tel [phone], Service support , CC: Nicola Bay MD; Abimael Castillo Manufacturer'S Representative: Signed PARACENTESIS WITH US Observed: 12/23/2017 Status: F Source: [place] 10:19 AM [facility] REPOSITORY [facility] Imaging Services [address] [place] [address] Paracentesis with US MR#: [id number] Acct: [id number] Name: ANITA MCCALLUM Rep #: [id number] : 1945 F 72 From: Rigo Britt MD PCP: Nicola Bay MD Status: REG CLI Study: Paracentesis with US Date of Exam: 12/23/17 Exam# [id number] Ordering Dr: Abimael Castillo MD PROCEDURE: Ultrasound [...] the peritoneal cavity was accessed with a 5-Bruneian paracentesis needle/catheter system. The trocar was removed. A total of 6550 ml of harsh-colored fluid were removed from the peritoneal cavity. The catheter was removed and a sterile dressing was applied. The procedure was well tolerated. US/Paracentesis with US IMPRESSION: Ultrasound guided paracentesis. Electronically Signed: Rigo Britt MD at 12:26 EDT Tel [phone], Service support , CC: Nicola Bay MD; Abimael Castillo Manufacturer'S Representative: Signed PROTHROMBIN TIME W/INR Collected: 12/20/2017 Status: F Source: REJI 11:46 AM [facility] REPOSITORY TYPE CODE TESTS RESULT OUT OF RANGE REFERENCE UNITS LAB L300.4150 11.7-14.9 SECONDS Normal PROTIME 13.8 LAB L300.4200 Normal INR 1.1 Performed By: #### L300.3900, L300.4310 #### [facility] Laboratory [address] [place], [address] PARTIAL THROMBOPLAST Collected: 12/20/2017 Status: F Source: [place] TIME 11:46 AM [facility] REPOSITORY TYPE CODE TESTS RESULT OUT OF RANGE REFERENCE UNITS LAB L300.4310 24.1-36.2 Seconds Normal PTT 27.5 Performed By: #### L300.3900, L300.4310 #### [facility] [address] [place], [address] UNILAT LT SCRN Observed: 12/20/2017 Status: F Source: REJI W/CAD 10:43 AM [facility] REPOSITORY [facility] Imaging Services [address] [place] [address] UNILAT LT SCRN W/CAD MR#: [id number] Acct: [id number] Name: ANITA MCCALLUM Rep #: [id number] : 1945 F 72 From: Rigo Britt MD PCP: Nicola Bay MD Status: REG CLI Study: UNILAT LT SCRN W/CAD Date of Exam: 12/20/17 Exam# [id number] Ordering Dr: Nicola Bay MD MAMMOGRAPHY - [...] no significant change since the prior study. BI/UNILAT LT SCRN W/CAD IMPRESSION: Stable unilateral screening mammogram. Yearly follow-up mammogram recommended. (A) ASSESSMENT CATEGORY: BIRADS Category 1: Negative. A letter regarding these results will be sent to the patient by the facility within 30 days. Approximately 10% of breast cancers are not detected by mammography. A normal mammogram should not delay biopsy of a clinically suspicious abnormality. [id number] Electronically Signed: Rigo Britt MD at 14:54 EDT Tel [phone], Service support , CC: Nicola Bay MD Manufacturer'S Representative: Signed PARACENTESIS WITH US Observed: 12/17/2017 Status: F Source: [place] 2:05 PM [facility] Imaging Services [address] [place] [address] Paracentesis with US MR#: [id number] Acct: [id number] Name: XENAANITA K Rep #: [id number] : 1945 F 72 From: Rigo Britt MD PCP: Nicola Bay MD Status: REG CLI Study: Paracentesis with US Date of Exam: 12/17/17 Exam# [id number] Ordering Dr: Abimael Castillo MD PROCEDURE: Ultrasound [...] the peritoneal cavity was accessed with a 5-Bruneian paracentesis needle/catheter system. The trocar was removed. A total of 3000 ml of harsh-colored fluid were removed from the peritoneal cavity. The catheter was removed and a sterile dressing was applied. The procedure was well tolerated. US/Paracentesis with US IMPRESSION: Ultrasound guided paracentesis. Electronically Signed: Rigo Britt MD at 15:14 EDT Tel [phone], Service support , CC: Nicola Bay MD; Abimael Castillo Manufacturer'S Representative: Signed PARACENTESIS WITH US Observed: 12/10/2017 Status: F Source: [place] 10:15 AM [facility] REPOSITORY [facility] Imaging Services [address] [place] [address] Paracentesis with US MR#: [id number] Acct: [id number] Name: ANITA MCCALLUM Rep #: [id number] : 1945 F 72 From: Rigo Britt MD PCP: Nicola Bay MD Status: REG CLI Study: Paracentesis with US Date of Exam: 12/10/17 Exam# [id number] Ordering Dr: Abimael Castillo MD PROCEDURE: Ultrasound [...] the peritoneal cavity was accessed with a 5-Bruneian paracentesis needle/catheter system. The trocar was removed. A total of 6350 ml of harsh-colored fluid were removed from the peritoneal cavity. The catheter was removed and a sterile dressing was applied. The procedure was well tolerated. US/Paracentesis with US IMPRESSION: Ultrasound guided paracentesis. Electronically Signed: Rigo Britt MD at 12:30 EDT Tel [phone], Service support , CC: Nicola Bay MD; Abimael Castillo Manufacturer'S Representative: Signed DOWNTIME REPORT Observed: 12/09/2017 Status: F Source: REJI 1:53 PM [facility] REPOSITORY [facility] Medical Records Department [address] [place] [address] Downtime Report MR#: [id number] Acct: [id number] Name: ANITA MCCALLUM Rep #: [id number] : 1945 72 From: Agapito Ashford PCP: Nicola Bay MD Status: REG CLI This patient was seen during an EMR downtime November 22, 2017 - November 29, 2017. This patient may have a combination of paper and electronic documentation or all paper documentation. All documentation is viewable within the e-chart portion of [facility] for each patient visit. DOWNTIME REPORT Observed: 12/09/2017 Status: F Source: REJI 12:23 PM [facility] REPOSITORY [facility] Medical Records Department [address] [place] [address] Downtime Report MR#: [id number] Acct: [id number] Name: ANITA MCCALLUM Rep #: [id number] : 1945 72 From: Agapito Ashford PCP: Nicola Bay MD Status: REG CLI This patient was seen during an EMR downtime November 22, 2017 - November 29, 2017. This patient may have a combination of paper and electronic documentation or all paper documentation. All documentation is viewable within the e-chart portion of [facility] for each patient visit. DOWNTIME REPORT Observed: 12/09/2017 Status: F Source: [place] 12:17 PM [facility] Medical Records Department [address] [place] [address] Downtime Report MR#: [id number] Acct: [id number] Name: ANITA MCCALLUM Jelani Rep #: [id number] : 1945 72 From: Agapito Ashford PCP: Nicola Bay MD Status: REG CLI This patient was seen during an EMR downtime November 22, 2017 - November 29, 2017. This patient may have a combination of paper and electronic documentation or all paper documentation. All documentation is viewable within the e-chart portion of [facility] for each patient visit. PARACENTESIS WITH US Observed: 12/02/2017 Status: F Source: REJI 12:13 PM [facility] Imaging Services [address] [place] [address] Paracentesis with US MR#: [id number] Acct: [id number] Name: ANITA MCCALLUM Rep #: [id number] : 1945 F 72 From: Samra Martinez MD PCP: Nicola Bay MD Status: REG CLI Study: Paracentesis with US Date of Exam: 12/02/17 Exam# [id number] Ordering Dr: Abimael Castillo MD PROCEDURE: ULTRASOUND [...] 10 mL of lidocaine 1% a 5 Bruneian drainage catheter is introduced in the lower [...] , CC: Nicola Bay MD; Abimael Castillo Manufacturer'S Representative: Signed PROGRESS Observed: 12/01/2017 Status: COMPLETED Source: [place] 11:29 AM [facility] REPOSITORY HNO ID: [id number] Author: Nicola Price Service: (none) Author Type: [...] bone metastases. She didn't recall seeing a starter cup powder mixer in 2009. She denied musculoskeletal pain but [...] She is under the care of a barrel driller. Evidently there is plan for further workup [...] No spider angiomas. No palmar erythema. NEUROLOGIC: manufacturing helper II-XII are grossly intact. 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.818) Pancytopenia [...] DO CNOVSP Observed: 12/01/2017 Status: COMPLETED Source: [place] 10:50 AM [facility] REPOSITORY Visit (SP) Office (HEMAWS) ANITA MCCALLUM ([id number]) 1945 F Date Time Provider Department 12/01/17 10:50 AM NICOLA PRICE During your visit today, we recorded the following information about you: Temperature Pulse Blood pressure Weight 98.3 degrees 68/minute 122/56 83.9 kg Viv Elizabeth LPN, ARNALDO 12/01/2017 11:40 AM Signed Est pt, discuss recent lab results, 6 month f/u ARNALDO Saab, DO 12/01/2017 2:09 PM Signed HPI: The [...] bone metastases. She didn't recall seeing a starter cup powder mixer in 2009. She denied musculoskeletal pain but [...] She is under the care of a barrel driller. Evidently there is plan for further workup [...] No spider angiomas. No palmar erythema. NEUROLOGIC: manufacturing helper II-XII are grossly intact. 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.818) Pancytopenia [...] Nicola Price DO Referring Provider: NICOLA PRICE [[id number]] Allergies As of Date: 12/01/2017 Noted Allergy Reaction BIAXIN (CLARITHROMYCIN) 06/12/2009 POTASSIUM IODIDE 06/12/2009 Date Reviewed: 12/01/2017 Reviewed by: Viv Santiago (Water Resource Consultant) ARNALDO Elizabeth - Fully Assessed Reason for [...] [D73.1] INVALID FOR* Visit Notes: >> Viv Pamela (Arnaldo) ARNALDO Elizabeth WedDec 01, 2017 11:08 AM Status: Signed Est pt, discuss recent lab results, 6 month f/u Viv Pamela Elizabeth LPN Encounter Status:Closed by NICOLA PRICE DO on 12/01/17 WOUND CTR HISTORY Observed: 11/30/2017 Status: F Source: [place]JI AND PHYSICAL 9:52 AM [facility] REPOSITORY [facility] [address] [place] [address] Wound Ctr History AND Physical 11/30/17 0942 MR#: [id number] Acct: [id number] Name: ANITA MCCALLUM Rep #: [id number] : 1945 72 From: Jose Alfredo Barnett [...] of other providers, including Dr. Castillo, a barrel driller. It is suspected that the lower extremity [...] Date Recorded By Document 11/30/17 09:17 DONALDO [id number] 11/30/17 09:21 DONALDO Wound Center Nurse 1 [Ulcer Assessment] #1- [...] WITH US Observed: 11/29/2017 Status: F Source: REJI 10:32 AM [facility] REPOSITORY [facility] Imaging Services [address] [place] [address] Paracentesis with US MR#: [id number] Acct: [id number] Name: ANITA MCCALLUM Rep #: [id number] : 1945 F 72 From: Samra Martinez MD PCP: Nicola Bay MD Status: REG CLI Study: Paracentesis with US Date of Exam: 11/22/17 Exam# [id number] Ordering Dr: Abimael Castillo MD PROCEDURE: ULTRASOUND [...] 10 mL of lidocaine 1% a 5 Bruneian drainage catheter is introduced in the lower [...] , CC: Nicola Bay MD; Abimael Castillo Manufacturer'S Representative: Signed PARACENTESIS WITH US Observed: 11/25/2017 Status: F Source: [place] 9:05 AM [facility] REPOSITORY [facility] Imaging Services [address] [place] [address] [place] [address] Paracentesis with US MR#: [id number] Acct: [id number] Name: ANITA MCCALLUM Rep #: [id number] : 1945 F 72 From: aSmra Martinez MD PCP: Nicola Bay MD Status: REG CLI Study: Paracentesis with US Date of Exam: 11/25/17 Exam# [id number] Ordering Dr: Abimael Castillo MD PROCEDURE: ULTRASOUND [...] 10 mL of lidocaine 1% a 5 Bruneian drainage catheter is introduced in the lower [...] , CC: Nicola Bay MD; Abimael Castillo Manufacturer'S Representative: Signed FERRITIN Collected: 11/24/2017 Status: F Source: [place] 12:51 PM [facility] REPOSITORY TYPE CODE TESTS RESULT OUT OF REFERENCE UNITS RANGE LAB FERR 14.7-205.1 ng/mL Test Ferritin sent to [facility]. Result Comment: Account Credited [facility] IRON AND TIBC Collected: 11/24/2017 Status: F Source: [place] 12:51 PM [facility] REPOSITORY TYPE CODE TESTS RESULT OUT OF REFERENCE UNITS RANGE LAB IRN 41-186 ug/dL Test Iron sent to [facility]. Result Comment: Account Credited [facility] LAB TIBC 232-386 ug/dL Test sent TIBC to [facility]. Result Comment: Account Credited [facility] LAB SAT 15-57 % Transferrin Test sent Saturatn to [facility]. Result Comment: Account Credited [facility] [place] ABS GR + CBC Collected: 11/24/2017 Status: F Source: [place] 12:50 PM [facility] REPOSITORY TYPE CODE TESTS RESULT OUT OF REFERENCE UNITS RANGE LAB WWBC 3.70-11.00 k/uL Low Reji WBC 2.18 LAB WRBC 3.90-5.20 m/uL Low Reji RBC 3.36 LAB WHGB 11.5-15.5 g/dL Low [place]ji Hemoglobin 10.4 LAB WHCT 36.0-46.0 % Low [place] Hematocrit 32.1 LAB WMCV 80.0-100.0 fL [place] MCV 95.5 LAB WMCH 26.0-34.0 pg [place] MCH 31.0 LAB WMCHC 30.5-36.0 g/dL Reji MCHC 32.4 LAB WRDW 11.5-15.0 % Reji RDW 14.5 LAB WPLT 150-400 k/uL Low [place] Platelet Cnt 65 Result Comment: NO CLOT DETECTED LAB WMPV 9.0-12.7 fL [place] MPV 10.4 Result Comment: Test performed at: [facility], [address] [place] [address] Rd[address] [place] [address]. LAB ABGRAN 1.45-7.50 k/uL Absol Gran 1.59 Count REJI ISTAT BMP Collected: 11/24/2017 Status: F Source: [place] 12:50 PM [facility] REPOSITORY TYPE CODE TESTS RESULT OUT [...] has been calibrated to be traceable to IDMS. An eGFR <60 mL/min/1.73m2 for >3 months is consistent with chronic kidney disease. Refer to KDOQI guidelines for clinical interpretation. In patients with unstable renal function, e.g. those with acute kidney injury, the eGFR may not accurately reflect actual GFR. IRON+IRON BINDING Collected: 11/24/2017 Status: F Source: [facility] 12:24 PM [facility] REPOSITORY Order Comment: RESULT(S) PREVIOUSLY REPORTED ON MANUAL REQUISITION DURING DOWNTIME. TYPE CODE TESTS RESULT OUT OF RANGE REFERENCE UNITS LAB L503.6075 250-450 ug/dL Low TIBC 232 LAB L503.6150 50-170 ug/dL IRON Normal 115 LAB L503.6250 15.0-55.0 % IRON Normal SATURATION 49.6 Performed By: #### L503.6030, L503.6550 #### [facility] Laboratory [address] [place], [address] FERRITIN Collected: 11/24/2017 Status: F Source: [place] 12:24 PM [facility] REPOSITORY Order Comment: RESULT(S) PREVIOUSLY REPORTED ON MANUAL REQUISITION DURING DOWNTIME. TYPE CODE TESTS RESULT OUT OF REFERENCE UNITS RANGE LAB L503.6550 8-252 ng/mL High FERRITIN 339 Performed By: #### L503.6030, L503.6550 #### [facility] Laboratory [address] [place], [address] PROTHROMBIN TIME W/INR Collected: 11/22/2017 Status: F Source: [place] 9:40 AM [facility] REPOSITORY Order Comment: RESULT(S) PREVIOUSLY REPORTED ON MANUAL REQUISITION DURING DOWNTIME. TYPE CODE TESTS RESULT OUT OF RANGE REFERENCE UNITS LAB L300.4150 11.7-14.9 SECONDS Normal PROTIME 13.9 LAB L300.4200 Normal INR 1.1 Performed By: #### L300.3900, L300.4310 #### [facility] [address] [place], [address] PARTIAL THROMBOPLAST Collected: 11/22/2017 Status: F Source: [place] TIME 9:40 AM [facility] REPOSITORY Order Comment: RESULT(S) PREVIOUSLY REPORTED ON MANUAL REQUISITION DURING DOWNTIME. TYPE CODE TESTS RESULT OUT OF RANGE REFERENCE UNITS LAB L300.4310 24.1-36.2 Seconds Normal PTT 29.4 Performed By: #### L300.3900, L300.4310 #### [facility] [address] [facility] [place], [address] PARACENTESIS WITH US Observed: 11/19/2017 Status: F Source: [place] 1:59 PM [facility] REPOSITORY [facility] Imaging Services [address] [place] [address] Paracentesis with US MR#: [id number] Acct: [id number] Name: ANITA MCCALLUM Rep #: [id number] : 1945 F 72 From: Rigo Britt MD PCP: Nicola Bay MD Status: REG CLI Study: Paracentesis with US Date of Exam: 11/19/17 Exam# [id number] Ordering Dr: Abimael Castillo MD PROCEDURE: Ultrasound [...] the peritoneal cavity was accessed with a 5-Bruneian paracentesis needle/catheter system. The trocar was removed. A total of 8000 ml of harsh-colored fluid were removed from the peritoneal cavity. The catheter was removed and a sterile dressing was applied. The procedure was well tolerated. US/Paracentesis with US IMPRESSION: Ultrasound guided paracentesis. Electronically Signed: Rigo Britt MD at 15:41 EDT Tel [phone], Service support , CC: Nicola Bay MD; Abimael Castillo Manufacturer'S Representative: Signed ALBUMIN, SERUM Collected: 11/19/2017 Status: F Source: [place] 9:32 AM [facility] REPOSITORY Order Comment: Serial Specimen #1, #2 or #3? 1 TYPE CODE TESTS RESULT OUT OF RANGE REFERENCE UNITS LAB L501.1800 3.2-5.0 g/dL Low ALB 2.7 Performed By: #### L501.1800, L501.2450, L504.2610 #### [facility] Laboratory [address] [place], [place], [address] LIPASE Collected: 11/19/2017 Status: F Source: [place] 9:32 AM [facility] REPOSITORY Order Comment: Serial Specimen #1, #2 or #3? 1 TYPE CODE TESTS RESULT OUT OF RANGE REFERENCE UNITS LAB L501.2450 73-393 U/L Normal LIPASE 167 Performed By: #### L501.1800, L501.2450, L504.2610 #### [facility] [address] [place], [address] LDH Collected: 11/19/2017 Status: F Source: [place] 9:32 AM [facility] REPOSITORY Order Comment: Serial Specimen #1, #2 or #3? 1 TYPE CODE TESTS RESULT OUT OF RANGE REFERENCE UNITS LAB L504.2610 84-246 U/L Normal LDH 190 Performed By: #### L501.1800, L501.2450, L504.2610 #### [facility] [address] [place], [address] BASIC METABOLIC Collected: 11/17/2017 Status: F Source: [place]I PROFILE (BMP) 2:09 PM [facility] REPOSITORY TYPE CODE TESTS RESULT OUT OF [...] GAP 7 Performed By: #### L500.2500 #### [facility] [address] [place], [address] WOUND CTR HISTORY Observed: 11/16/2017 Status: F Source: [place] AND PHYSICAL 10:12 AM [facility] REPOSITORY [facility] [address] [place] [address] Wound Ctr History AND Physical 11/16/17 1004 MR#: [id number] Acct: [id number] Name: ANITA MCCALLUM Rep #: [id number] : 1945 72 From: Jose Alfredo Barnett [...] of other providers, including Dr. Castillo, a barrel driller. It is suspected that the lower extremity [...] Recorded Date Recorded By Document 11/16/17 09:41 [id number] 11/16/17 09:43 Wound Center Nurse 1 [Ulcer Assessment] #1- RT LAT GONZALEZ -Combined with other wound No -Current Size (cm) - Length 0 - Nurse 2 - General Ulcer CM Notes Start: 10/21/17 13:50 Freq: Status: Active Protocol: Activity Type Activity Date Activity User E-Sign Co-Sign Detail Recorded Client Recorded Date Recorded By Document 11/16/17 10:01 [id number] 11/16/17 10:01 Wound Center Nurse 2 Musculoskeletal: [...] Recorded Date Recorded By Document 10/26/17 12:46 [id number] 10/26/17 12:47 Wound Center Nurse 2 Wound [...] F Source: [place] AND PHYSICAL 10:06 AM [facility] REPOSITORY [facility] [address] [place] [address] Wound Ctr History AND Physical 11/09/17 0956 MR#: [id number] Acct: [id number] Name: ANITA MCCALLUM Rep #: [id number] : 1945 72 From: Jose Alfredo Barnett [...] of other providers, including Dr. Castillo, a barrel driller. It is suspected that the lower extremity [...] Date Recorded By Document 11/09/17 09:18 DONALDO [id number] 11/09/17 09:21 DONALDO WC - Nurse 2 - General Ulcer CM Notes Start: 10/21/17 13:50 Freq: Status: Active Protocol: Activity Type Activity Date Activity User E-Sign Co-Sign Detail Recorded Client Recorded Date Recorded By Document 11/09/17 09:48 JS [id number] 11/09/17 09:49 SERGIO Wound Center Nurse 2 [...] Status: F Source: [place] PHOTO 10:57 AM [facility] REPOSITORY TYPE CODE TESTS RESULT OUT OF [...] Comment: Physician questions regarding Calculi Analysis contact [email or web address] at: [phone]. LAB L3336.0190 . Normal COMMENT Comment Result Comment: Calculi report with photograph will follow via computer, mail or rope cutter delivery. LAB L3705.0179 . Normal Disclaimer Comment Result Comment: This test was developed and its performance characteristics determined by [facility]. It has not been cleared or approved by the Food and Drug Administration. Performed at: [address] [id number] Library Services Assistant: Daniel Man MD, Phone: [phone] Performed By: #### L3650.0100 #### [facility] (refer to report for specific site) refer to report for address and phone number ABDOMEN/PELVIS WITHOUT Observed: 11/03/2017 Status: F Source: [place] CONT 9:59 AM [facility] REPOSITORY [facility] Imaging Services [address] [place] [address] Abdomen/Pelvis without Cont MR#: [id number] Acct: [id number] Name: ANITA MCCALLUM Rep #: [id number] : 1945 F 72 From: Rigo Britt MD PCP: Nicola Bay MD Status: REG CLI Study: Abdomen/Pelvis without Cont Date of Exam: 11/03/17 Exam# [id number] Ordering Dr: Iveth Woody TIPPLE MECHANIC-C STUDY: CT ABDOMEN AND PELVIS WITHOUT CONTRAST [...] Rigo Britt MD at 11:24 EDT Tel [phone], Service support , CC: Nicola Bay MD; Iveth Woody NP Manufacturer'S Representative: Signed ABDOMEN SINGLE VIEW Observed: 11/02/2017 Status: F Source: [place] 4:05 PM [facility] REPOSITORY [facility] Imaging Services [address] [place] [address] Abdomen Single View MR#: [id number] Acct: [id number] Name: ANITA MCCALLUM Rep #: [id number] : 1945 F 72 From: Fabricio Short DO PCP: Nicola Bay MD Status: REG CLI Study: Abdomen Single View Date of Exam: 11/02/17 Exam# [id number] Ordering Dr: Rob Busby MD STUDY: X-RAY [...] Fabricio Short DO at 22:39 EDT Tel [phone], Service support , CC: Rob Busby MD; Nicola Bay MD Manufacturer'S Representative: Signed WOUND CTR HISTORY Observed: 11/02/2017 Status: F Source: [place]I AND PHYSICAL 9:32 AM [facility] REPOSITORY [facility] [address] [place] [address] Wound Ctr History AND Physical 11/02/17 0922 MR#: [id number] Acct: [id number] Name: ANITA MCCALLUM Rep #: [id number] : 1945 72 From: Jose Alfredo Barnett [...] Date Recorded By Document 11/02/17 08:53 DV [id number] 11/02/17 08:59 DV Wound Center Nurse 1 [...] Date Recorded By Document 11/02/17 09:12 JS [id number] 11/02/17 09:16 JS Wound Center Nurse 2 [...] WITH US Observed: 10/27/2017 Status: F Source: [place] 1:56 PM [facility] REPOSITORY [facility] Imaging Services [address] [place] [address] Paracentesis with US MR#: [id number] Acct: [id number] Name: ANITA MCCALLUM Rep #: [id number] : 1945 F 71 From: Rigo Britt MD PCP: Nicola Bay MD Status: REG CLI Study: Paracentesis with US Date of Exam: 10/27/17 Exam# [id number] Ordering Dr: Abimael Castillo MD PROCEDURE: Ultrasound [...] the peritoneal cavity was accessed with a 5-Bruneian paracentesis needle/catheter system. The trocar was removed. A total of 3600 ml of harsh-colored fluid were removed from the peritoneal cavity. The catheter was removed and a sterile dressing was applied. The procedure was well tolerated. US/Paracentesis with US IMPRESSION: Ultrasound guided paracentesis. Electronically Signed: Rigo Britt MD at 15:20 EDT Tel [phone], Service support , CC: Nicola Bay MD; Abimael Castillo Manufacturer'S Representative: Signed WOUND CTR HISTORY Observed: 10/26/2017 Status: F Source: [place] AND PHYSICAL 1:07 PM [facility] REPOSITORY [facility] [address] [place] [address] Wound Ctr History AND Physical 10/26/17 1254 MR#: [id number] Acct: [id number] Name: ANITA MCCALLUM Rep #: [id number] : 1945 71 From: Jose Alfredo Barnett [...] and will again be performed tomorrow, at [facility]. The swelling and edema in the [...] the lower extremities. Wound Measurements and Assessment MO - Nurse 1 - General Ulcer Measurement Start: 10/21/17 13:50 Freq: Status: Active Protocol: Activity Type Activity Date Activity User E-Sign Co-Sign Detail Recorded Client Recorded Date Recorded By Document 10/26/17 12:05 DONALDO [id number] 10/26/17 12:16 DONALDO Wound Center Nurse 1 [Ulcer Assessment] #2 LEFT GONZALEZ ULCER -Combined with other wound No WC - Nurse 2 - General Ulcer CM Notes Start: 10/21/17 13:50 Freq: Status: Active Protocol: Activity Type Activity Date Activity User E-Sign Co-Sign Detail Recorded Client Recorded Date Recorded By Document 10/26/17 12:46 [id number] 10/26/17 12:47 Wound Center Nurse 2 [Procedure/Treatment] [...] Recorded Date Recorded By Document 10/26/17 12:46 [id number] 10/26/17 12:47 Wound Center Nurse 2 No [...] LEAD ELECTROCARDIOGRAM Observed: 10/25/2017 Status: F Source: REJI 2:17 PM [facility] REPOSITORY [facility] Cardiovascular Services [facility] [place] [address] [address] [place] [address] 12 Lead EKG 10/22/17 1536 MR#: [id number] Acct: [id number] Name: ANITA MCCALLUM Rep #: [id number] : 1945 71 From: Americo Gomez MD [...] ECG Confirmed by AMERICO GOMEZ MD ([id number]), social media editor MARLEY ASHFORD ([id number]) on 10/25/2017 2:16:38 PM Referred By: WAI Confirmed By:AMERICO GOMEZ MD 10/25/17 1416 Date Americo Gomez MD CC: Nicola Bay MD; Antonio Aguayo DO Signed EMERGENCY DEPARTMENT Observed: 10/22/2017 Status: F Source: [place] SUMMARY 6:25 PM [facility] REPOSITORY [facility] Medical Records Department [address] [place] [address] Emergency Department Summary 10/22/17 1822 MR#: [id number] Acct: [id number] Name: ANITA MCCALLUM Rep #: [id number] : 1945 71 From: Antonio Aguayo DO [...] [Dizziness-resolved Dyspnea-resolved] This note was generated with FireScope dictation software. It may contain incorrect words, [...] problems, contact your Primary Care Provider. Call [facility] ([phone]) or report to the closest Emergency Room. Call 911 if necessary. 10/22/17 4860 <Electronically signed by Antonoi Aguayo DO> Date Antonio Aguayo DO Cosigner Signature (If Indicated): Date CC: Nicola Bay MD DISCHARGE INSTRUCTION Observed: 10/22/2017 Status: F Source: REJI 6:25 PM [facility] REPOSITORY [facility] Medical Records Department [address] [place] [address] Discharge Instruction 10/22/171824 MR#: [id number] Acct: [id number] Name: ANITA MCCALLUM Rep #: [id number] : 1945 71 From: Antonio Aguayo DO [...] your Primary Care Provider. Call [facility] ([phone]) or report to the closest Emergency Room. Call 911 if necessary. 10/22/171824 <Electronically signed by Antonio Aguayo DO> Date Antonio Aguayo DO Cosigner Signature (If Indicated): Date CC: Nicola Bay MD URINALYSIS, COMPLETE Collected: 10/22/2017 Status: F Source: REJI 5:10 PM [facility] REPOSITORY Order Comment: Order Date: 10/22/17 How [...] URINE SEEN Performed By: #### L400.0001 #### [facility] [address] [place], [address] CBC W/DIFF, AUTOMATED Collected: 10/22/2017 Status: F Source: [place] 3:34 PM [facility] REPOSITORY TYPE CODE TESTS RESULT OUT OF [...] MOD DEC Performed By: #### L100.0100 #### [facility] [address] [place], [address] BASIC METABOLIC Collected: 10/22/2017 Status: F Source: [place] PROFILE (BMP) 3:34 PM [facility] REPOSITORY Order Comment: 'TROP' Serial specimen #1, [...] 4 Performed By: #### L500.2500, L501.4010 #### [facility] [address] [place], [address] TROPONIN-I Collected: 10/22/2017 Status: F Source: [place] 3:34 PM [facility] REPOSITORY Order Comment: 'TROP' Serial specimen #1, #2, #3, or #4: 1 TYPE CODE TESTS RESULT OUT OF RANGE REFERENCE UNITS LAB L501.4010 <0.06 ng/mL Normal < 0.02 TROPONIN-I Result Comment: TROPONIN-I EXPECTED VALUES <0.05 NEGATIVE 0.06 - 0.59 AT RISK OF WI > OR = 0.60 SUGGEST WI Performed By: #### L500.2500, L501.4010 #### [facility] [address] [place], [place], [address] LDH,BODY FLUID Collected: 10/22/2017 Status: F Source: [place] 2:22 PM [facility] REPOSITORY Order Comment: Specimen Source: ASCITES TYPE CODE TESTS RESULT OUT OF RANGE REFERENCE UNITS LAB L504.0250 Not Establ. Units/l Normal LDH,BF 62 Performed By: #### L504.0250 #### [facility] [address] [place], [place], [address] BODY FLUID CELL Collected: 10/22/2017 Status: C Source: [place] COUNT+DIFF 2:22 PM [facility] REPOSITORY Order Comment: PARACENTESIS FLUID. The reference [...] Reviewed Result Comment: Negative for malignant cells. Vamsi Ramires M.D. 10/25/17 AMENDED REPORT 10/25/17 1352 [...] SEE COMMENT Performed By: #### L200.0200 #### [facility] [address] [facility] [place], [place], [address] Observed: 10/22/2017 Status: F Source: REJI CULTURE, BODY FLUID 2:22 PM [facility] REPOSITORY List Antibiotics Last 48 Hours? . List Antibiotics to be Started? . Gram Stain Gram Stain No cells seen No organisms seen Body Fluid Cult No growth aerobically. Cult, Anaerobic No growth in 5 days. Performed By: #### M100.1300 #### [facility] [address] [place], [address] FLUID/WASHING Observed: 10/22/2017 Status: F Source: REJI 2:22 PM [facility] REPOSITORY Patient: ANITA MCCALLUM : 1945 (71/F) Acct Num: [id number] Phys: Abimael Castillo Unit Num: [id number] Loc: US Specimen: [id number] Received: 10/25/17 - 1159 Spec Type: Fluid TISSUES TISSUES: PARACENTESIS FLUID CYTOLOGY GROSS Received is 85 ml of slightly cloudy yellow fluid labeled with the patient's name and and designated per the requisition as paracentesis. Submitted for cytology preparation including cell block. / 10/25/17 TC:5 CPT: 52997, 94589 CYTOLOGY STUDY Slides are reviewed. The specimen consists of macrophages, mesothelial cells and inflammatory cells. DIAGNOSIS CYTOLOGY Paracentesis fluid for cytology (cytospin): Negative for malignant cells. SJ:ivy 10/26/17 HEADER OPERATION: Ultrasound-guided paracentesis PRE-OP DIAGNOSIS: Ascites TISSUE SUBMITTED: Paracentesis fluid for cytology Signed Vamsi Ramires 10/26/17 <signature on file> Performed By: #### PFLU #### [facility] [address] [place], [place], [address] CYTOLOGY, BODY FLUID / Collected: 10/22/2017 Status: F Source: [place] CSF 2:22 PM [facility] REPOSITORY Order Comment: Specimen Source: ASCITES TYPE CODE TESTS RESULT OUT OF RANGE REFERENCE UNITS LAB L350.1000 SEE Normal PATHOLOGY CYTOLOGY,BF REPORT /CSF Result Comment: Specimen submitted to Anatomical Pathology Department for testing. Performed By: #### L350.1000 #### [facility] [address] [place], [address] MISCELLANEOUS LAB Collected: 10/22/2017 Status: F Source: [place] PROCEDURE 2 2:22 PM [facility] REPOSITORY Order Comment: Interface Comments: paracentesis fluid. List Test(s) Ordered by Physician: [id number] 2ml ref. TYPE CODE TESTS RESULT OUT OF RANGE REFERENCE UNITS LAB L801.1543 Normal [facility] 2 Result Comment: TEST RESULT UNITS REF INTERVAL Lipase, Fluid 18 U/L INTERPRETIVE INFORMATION: Lipase, Fluid For information on body fluid reference ranges and/or interpretive guidance visit [email or web address] Test developed and characteristics determined by [facility]. See Compliance Statement B: C[employer]Scout/ Albumin, Body Fluid 1.2 g/dL : Peritoneal [...] context for interpretation. TESTING PERFORMED AT [facility]. ORIGINAL REPORT ON FILE IN LAB CONTAINS ADDITIONAL TEST SITE INFORMATION. Performed By: #### L801.1543 #### [facility] [address] [place], [address] PROTEIN, BODY FLUID Collected: 10/22/2017 Status: F Source: REJI 2:22 PM [facility] REPOSITORY Order Comment: Specimen Source: PARACENTESIS FLUID TYPE CODE TESTS RESULT OUT OF RANGE REFERENCE UNITS LAB L503.0300 Not Establ. g/dL Normal 2.5 PROTEIN,BF Performed By: #### L503.0300 #### [facility] [address] [place], [address] MISCELLANEOUS LAB Collected: 10/22/2017 Status: F Source: REJI PROCEDURE 2:22 PM [facility] REPOSITORY Order Comment: Interface Comments: paracentesis fluid. Test(s) Ordered: [id number] 1ml room temp TYPE CODE TESTS RESULT OUT OF RANGE REFERENCE UNITS LAB L801.[address] [facility] LAB TEST Result Comment: TEST RESULT LIMITS Lipase, Fluid 18 U/L INTERPRETIVE INFORMATION: Lipase, Fluid For information on body fluid reference ranges and/or interpretive guidance visit [email or web address] Test developed and characteristics determined by [facility]. See Compliance Statement B: [address]/CS TESTING PERFORMED AT [facility]. ORIGINAL REPORT ON FILE IN LAB CONTAINS ADDITIONAL TEST SITE INFORMATION. Performed By: #### L801.1541 #### [facility] [address] [place], [address] CHEST 1 VIEW Observed: 10/22/2017 Status: F Source: [place] 2:13 PM [facility] REPOSITORY [facility] Imaging Services [address] [place] [address] Chest 1 View MR#: [id number] Acct: [id number] Name: ANITA MCCALLUM Rep #: [id number] : 1945 F 71 From: Samra Martinez MD PCP: Nicola Bay MD Status: REG CLI Study: Chest 1 View Date of Exam: 10/22/17 Exam# [id number] Ordering Dr: Samra Martinez MD STUDY: X-RAY [...] CC: Samra Martinez MD; Nicola Bay MD Manufacturer'S Representative: Signed PARACENTESIS WITH US Observed: 10/22/2017 Status: F Source: REJI 11:45 AM [facility] REPOSITORY [facility] Imaging Services [address] [place] [address] Paracentesis with US MR#: [id number] Acct: [id number] Name: ANITA MCCALLUM Rep #: [id number] : 1945 F 71 From: Samra Martinez MD PCP: Nicola Bay MD Status: REG CLI Study: Paracentesis with US Date of Exam: 10/22/17 Exam# [id number] Ordering Dr: Abimael Castillo MD PROCEDURE: ULTRASOUND [...] 10 mL of lidocaine 1% a 5 Bruneian drainage catheter is introduced in the lower part of the abdomen. 17260 mL of fluid were removed sample sent to lab for evaluation. The patient tolerated the procedure there was no immediate complication. FINDINGS: FLUID PRE-PROCEDURE There is posterior enhancement. The findings appear anechoic. There is no loculation. Volume measurement: 64127 ml. FLUID POST-PROCEDURE Amount of fluid drained: 83477 ml. US/Paracentesis with US IMPRESSION: Successful ultrasound-guided paracentesis. Electronically Signed: Samra Martinez MD at 14:47 EDT Tel , Service support , CC: Nicola Bay MD; Abimael Castillo Manufacturer'S Representative: Signed PROTHROMBIN TIME W/INR Collected: 10/20/2017 Status: F Source: REJI 9:58 AM [facility] REPOSITORY TYPE CODE TESTS RESULT OUT OF RANGE REFERENCE UNITS LAB L300.4150 11.7-14.9 SECONDS Normal PROTIME 14.0 LAB L300.4200 Normal INR 1.1 Performed By: #### L300.3900, L300.4310 #### [facility] [address] [place], [address] PARTIAL THROMBOPLAST Collected: 10/20/2017 Status: F Source: REJI TIME 9:58 AM [facility] REPOSITORY TYPE CODE TESTS RESULT OUT OF RANGE REFERENCE UNITS LAB L300.4310 24.1-36.2 Seconds Normal PTT 30.4 Performed By: #### L300.3900, L300.4310 #### [facility] [address] [place], [address] LIVER PROFILE Collected: 10/20/2017 Status: F Source: REJI 9:58 AM [facility] REPOSITORY TYPE CODE TESTS RESULT OUT OF [...] BILI 0.21 Performed By: #### L500.3400 #### [facility] [address] [place], [address] PLATELET COUNT Collected: 10/20/2017 Status: F Source: ERJI 9:58 AM [facility] REPOSITORY TYPE CODE TESTS RESULT OUT OF RANGE REFERENCE UNITS LAB L100.1900 150-450 K/mm3 Low PLT 78 Performed By: #### L100.1900 #### [facility] [address] [place], [address] ANTINUCLEAR ANTIBODIES Collected: 10/20/2017 Status: F Source: REJI DIRECT 9:58 AM [facility] REPOSITORY TYPE CODE TESTS RESULT OUT OF RANGE REFERENCE UNITS LAB L3100.5475 Negative Normal Negative JATIN-DIRECT Result Comment: Performed at: - [facility] [address] [id number] Library Services Assistant: Abimael Lopez PhD, Phone: [phone] Performed By: #### L3100.5475 #### [facility] (refer to report for specific site) refer to report for address and phone number WOUND CTR HISTORY Observed: 10/18/2017 Status: F Source: REJI AND PHYSICAL 3:06 PM [facility] REPOSITORY [facility] [address] [place] [address] Wound Ctr History AND Physical 10/18/17 1439 MR#: [id number] Acct: [id number] Name: ANITA MCCALLUM Rep #: [id number] : 1945 71 From: Jose Alfredo Barnett MD PCP: Nicola Bay MD Status: REG RCR Y Location: (1) History of breast cancer Status: Chronic [...] has an appointment with Dr. 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 Lives: Alone Smoking Status: Never smoker Tobacco [...] Date Recorded By Document 10/18/17 12:53 TM [id number] 10/18/17 12:58 TM Wound Center Nurse 1 [Ulcer Assessment] #2 LEFT GONZALEZ ULCER -Combined with other wound No -Current Size (cm) - Length 0.9 WC - Nurse 2 - General Ulcer CM Notes Start: 09/21/17 12:56 Freq: Status: Active Protocol: Activity Type Activity Date Activity User E-Sign Co-Sign Detail Recorded Client Recorded Date Recorded By Document 10/18/17 14:00 JS [id number] 10/18/17 14:09 Neurological: Cranial nerves II-XII grossly intact, Neuro [...] ABDOMEN COMPLETE Observed: 10/16/2017 Status: F Source: [place] 10:17 AM [facility] REPOSITORY [facility] Imaging Services [address] [place] [address] Abdomen Complete MR#: [id number] Acct: [id number] Name: ANITA MCCALLUM Rep #: [id number] : 1945 F 71 From: Atilio Candelaria MD PCP: Nicola Bay MD Status: REG CLI Study: Abdomen Complete Date of Exam: 10/16/17 Exam# [id number] Ordering Dr: Nicola Bay MD STUDY: ABDOMINAL [...] Service support , CC: Nicola Bay MD Manufacturer'S Representative: Signed ABD INC DECUB Observed: 10/13/2017 Status: F Source: REJI AND/OR ERECT 12:33 PM [facility] REPOSITORY [facility] Imaging Services [address] [place] [address] Abd Inc Decub and/or Erect MR#: [id number] Acct: [id number] Name: ANITA MCCALLUM Rep #: [id number] : 1945 F 71 From: Isac Blevins MD PCP: Nicola Bay MD Status: REG CLI Study: Abd Inc Decub and/or Erect Date of Exam: 10/13/17 Exam# [id number] Ordering Dr: Nicola Bay MD STUDY: X-RAY [...] Service support , CC: Nicola Bay MD Manufacturer'S Representative: Signed CBC W/DIFF, AUTOMATED Collected: 10/13/2017 Status: F Source: REJI 12:30 PM [facility] REPOSITORY TYPE CODE TESTS RESULT OUT OF [...] Lymph 0.46 Performed By: #### L100.0100 #### [facility] [address] [place], [address] COMPREHENSIVE METABOLIC Collected: 10/13/2017 Status: F Source: [facility] 12:30 PM [facility] REPOSITORY TYPE CODE TESTS RESULT OUT OF [...] GAP 5 Performed By: #### L500.4050 #### [facility] [address] [facility] [place], [address] LOWER EXT ARTERIAL Observed: 08/06/2017 Status: F Source: [facility] 6:38 AM [facility] REPOSITORY [facility] Cardiovascular Services [address] [place] [address] 08/06/17 0634 MR#: [id number] Acct: [id number] Name: ANITA MCCALLUM Rep #: [id number] : 1945 71 From: Jose Alfredo Barnett MD Attending Dr: Rob Claire DPM Status: REG RCR Ordering Dr: Date: 08/06/17 Location: [facility] Sex: F C Admitted: Arterial Study - [...] Claire DPM; Nicola Bay MD Date Dictated: 08/06/1734 Date Transcribed: 08/06/17633 Manufacturer'S Representative: SYLVAIN Vieyra VENOUS DUPLEX LOWER Observed: 08/02/2017 Status: F Source: [place] EXTREMITY 9:59 PM [facility] REPOSITORY [facility] Cardiovascular Services [address] [place] [address] Venous Duplex US - Raheel Extrem 08/02/17 1236 MR#: [id number] Acct: [id number] Name: ANITA MCCALLUM Rep #: [id number] : 1945 71 From: Jose Alfredo Barnett [...] preliminary report was called and/or faxed to [facility]. Interpretation Summary Deep veins of the lower [...] Date Dictated: 08/02/17 1236 Date Transcribed: 08/02/172158 Manufacturer'S Representative: Signed WOUND CTR HISTORY Observed: 07/20/2017 Status: F Source: REJI AND PHYSICAL 3:22 PM [facility] REPOSITORY [facility] [address] [place] [address] Wound Ctr History AND Physical 07/20/17 1513 MR#: [id number] Acct: [id number] Name: ANITA MCCALLUM Rep #: [id number] : 1945 71 From: Rob Claire DPM [...] nurse's wound assessment. Wound Measurements and Assessment WC - Nurse 1 - General Ulcer Measurement Start: 07/20/17 12:30 Freq: Status: Active Protocol: Activity Type Activity Date Activity User E-Sign Co-Sign Detail Recorded Client Recorded Date Recorded By Document 07/20/17 12:50 BMF [id number] 07/20/17 13:15 F Wound Center Nurse 1 [Ulcer Assessment Protocol: WC.WD.LOC] WC - Nurse 2 - General Ulcer CM Notes Start: 07/20/17 12:30 Freq: Status: Active Protocol: Activity Type Activity Date Activity User E-Sign Co-Sign Detail Recorded Client Recorded Date Recorded By Document 07/20/17 14:03 MW [id number] 07/20/17 14:19 MW Wound Center Nurse 2 [Procedure/Treatment] #1- RT LAT GONZALEZ -Time 14:04 -Correct Patient Yes -Correct Side, Site, Position Yes -Correct Procedure Yes Debridement Note Post-Debridement Measurements/Treatment WC - Nurse 2 - General Ulcer CM Notes Start: 07/20/17 12:30 Freq: Status: Active Protocol: Activity Type Activity Date Activity User E-Sign Co-Sign Detail Recorded Client Recorded Date Recorded By Document 07/20/17 14:03 MW [id number] 07/20/17 14:19 MW Wound Center Nurse 2 [...] layer exposed (Acute) Assessment: See diagnoses 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 SQ/excisional debridement R gonzalez ulcer as [...] F Source: REJI 2 VIEWS 3:05 PM [facility] REPOSITORY [facility] Imaging Services [address] [place] [address] Tibia AND Fibula 2 Views MR#: [id number] Acct: [id number] Name: ANITA MCCALLUM Rep #: [id number] : 1945 F 71 From: Fabricio Short DO PCP: Nicola Bay MD Status: REG RCR Study: Tibia AND Fibula 2 Views Date of Exam: 07/20/17 Exam# [id number] Ordering Dr: Rob Claire DPM STUDY: X-RAY [...] Fabricio Short DO at 23:52 EST Tel [phone], Service support , CC: Rob Claire DPM; Nicola Bay MD Manufacturer'S Representative: Signed CBC W/DIFF, AUTOMATED Collected: 07/20/2017 Status: F Source: [place] 3:03 PM [facility] REPOSITORY TYPE CODE TESTS RESULT OUT OF [...] SCANNED Performed By: #### L100.0100, L101.9900 #### [facility] [address] [place], [address] ERYTHROCYTE SED RATE Collected: 07/20/2017 Status: F Source: [place] 3:03 PM [facility] REPOSITORY TYPE CODE TESTS RESULT OUT OF RANGE REFERENCE UNITS LAB L102.0000 0-30 mm/hr High SED RATE 37 Performed By: #### L100.0100, L101.9900 #### [facility] [address] [place], [address] HEMOGLOBIN A1C Collected: 07/20/2017 Status: F Source: [place] 3:03 PM [facility] REPOSITORY TYPE CODE TESTS RESULT OUT OF RANGE REFERENCE UNITS LAB L501.9985 4.2-6.3 % Normal HGB A1C 6.0 Performed By: #### L501.9985 #### [facility] [address] [place], [address] COMPREHENSIVE METABOLIC Collected: 07/20/2017 Status: F Source: [facility] 3:03 PM [facility] REPOSITORY TYPE CODE TESTS RESULT OUT OF [...] Performed By: #### L500.4050, L501.6710, L506.0500 #### [facility] [address] [place], [place], [address] CRP Collected: 07/20/2017 Status: F Source: [place] 3:03 [facility] REPOSITORY TYPE CODE TESTS [...] Performed By: #### L500.4050, L501.6710, L506.0500 #### [facility] [address] [facility] [place], [place], [address] PREALBUMIN Collected: 07/20/2017 Status: F Source: [place] 3:03 PM [facility] REPOSITORY TYPE CODE TESTS RESULT OUT OF REFERENCE UNITS RANGE LAB L506.0500 20.0-40.0 mg/dL Low PREALBUMIN 9.8 Performed By: #### L500.4050, L501.6710, L506.0500 #### [facility] [address] [place], [address] ALLERGIES ALLERGIES DATE TYPE / NAME / CODE REACTION SEVERITY SOURCE CODE 02/03/2018 Drug iodine/[id number](RX Unknown Unknown [place] Allergy/41 NORM) [facility] [id number]([facility]) Repository 02/03/2018 Drug clarithromycin/F0060 Unknown Unknown [place] Allergy/41 [address]3237(RXNORM) [facility] [id number]([facility]) Repository 06/12/2009 DRUG CLARITHROMYCIN [address] [id number]([facility]) 06/12/2009 DRUG POTASSIUM IODIDE [address] [id number]([facility]) ENCOUNTERS ENCOUNTERS ADMIT/DISCHARGE ACCOUNT NUMBER ADMITTING ENCOUNTER LOCATION SOURCE CLASS 07/07/2018 [id number] Ambulatory [facility] ding:MEDOUTP Repository 06/30/2018 [id number] Ambulatory [facility] ding:MEDOUTP Repository 06/29/2018 [id number] Ambulatory [facility] ding:LAB Repository 06/23/2018 [id number] Ambulatory [facility] ding:[facility]OUTP Repository 06/16/2018 [id number] Ambulatory [facility] ding:[facility]OUTP Repository 06/09/2018 [id number] Ambulatory [facility] ding:[facility]OUTP Repository 06/06/2018 [id number] Ambulatory [facility] ding:[facility] Repository 06/06/2018 [id number] [facility]ulatory [facility] Repository 06/02/2018 [id number] Ambulatory [facility] ding:[facility]OUTP Repository 05/27/2018 [id number] Ambulatory [facility] ding:[facility]OUTP Repository 05/25/2018 [id number] Ambulatory [facility] ding:LAB Repository 05/19/2018 [id number] Ambulatory [facility] ding:MEDOUTP Repository 05/11/2018 [id number] Ambulatory [facility] [place] [facility] Repository 05/05/2018 [id number] Ambulatory [place] [facility] ding:[facility] Repository 04/28/2018 [id number] [facility] Repository 04/27/2018/05/20/20 [id number] Ambulatory [place] [address] [place] [address] [facility] Repository 04/21/2018 [id number] Ambulatory [facility] [place] [facility] ding:[facility] Repository 04/12/2018 [id number] Ambulatory [place] [facility] ding:MEDOUTP Repository 03/31/2018 [id number] [facility] Repository 03/29/2018 [id number] Ambulatory [place] [facility] ding:NS Repository 03/24/2018 [id number] [facility] [place] [facility] ding:MEDOUTP Repository 03/17/2018 [id number] [facility] [place] [facility] ding:MEDOUTP Repository 03/10/2018 [id number] Ambulatory Reji [facility] ding:MEDOUTP Repository 03/08/2018/03/09/20 [id number] Ambulatory [address] Main [place] Repository 03/03/2018 [id number] Ambulatory [place] [facility] ding:US Repository 03/01/2018/03/02/20 [id number] Ambulatory [place] [address] [facility] [address] [place] Repository 03/01/2018 [id number] Ambulatory Re[place] [facility] ding:LABSPEC Repository 02/28/2018/02/29/20 [id number] Ambulatory [place] [address] [place] [address] [facility] ding:NS Repository 02/24/2018 [id number] [facility] [place] [facility] ding:MEDOUTP Repository 02/22/2018 [id number] [address]ulatory Reji Re[facility] ding:LAB Repository 02/17/2018 [id number] Ambulatory [facility] Hospital ding:MEDOUTP Repository 02/10/2018 [id number] Ambulatory [facility] Hospital ding:MEDOUTP Repository 02/03/2018 [id number] Ambulatory [facility] ding:US Repository 01/27/2018/01/28/20 [id number] Ambulatory Reji [address] ding:MEDOUTP Repository 01/27/2018 [id number] [facility] 01/26/2018 [id number] [facility]MF[facility]AB Repository 01/25/2018 [id number] Ambulatory [facility] ding:LAB.FUT Repository URE 01/24/2018/01/25/20 [id number] Ambulatory BBuilding:[address] Repository 01/22/2018 [id number] Becky Wharton [facility] 01/22/2018/01/24/20 [id number] Becky Wharton Inpatient [place] Reji [address] [place] [address] ding:PCURoom Repository : [id number]: 1 01/22/2018/01/24/20 [id number] Ambulatory BMSBuilding: [place] [facility] Repository 01/22/2018 [id number] [facility]LAB Repository 01/21/2018 [id number] Ambulatory [facility] Hospital ding:MFPLAB Repository 01/20/2018 [id number] Ambulatory [facility] Hospital ding:US Repository 01/13/2018 [id number] Ambulatory [facility] Hospital ding:US Repository 01/06/2018 [id number] Ambulatory [facility] Hospital ding:US Repository 12/31/2017 [id number] Ambulatory [facility] Hospital ding:MTLAB Repository 12/30/2017 [id number] Ambulatory [facility] ding:US Repository 12/29/2017 [id number] [address] [facility] [facility] ding:WC Repository 12/23/2017 [id number] Ambulatory Reji Re[facility] ding:US Repository 12/20/2017 [id number] [facility] ding:OPBI Repository 12/17/2017 [id number] Ambulatory Re[address] [place] [facility] ding:US Repository 12/14/2017/12/19/19 [id number] Ambulatory Reji [place] [address] [place] [address] [facility]WC Repository 12/10/2017 [id number] Ambulatory [place] [facility] ding:US Repository 12/02/2017 [id number] [facility] [place] [facility] ding:US Repository 12/01/2017/12/03/19 [id number] Ambulatory [address] Repository 11/25/2017 [id number] Ambulatory [facility] ding:US Repository 11/24/2017 [id number] Ambulatory [facility] [place] ding:LABSPEC Repository 11/24/2017/11/26/19 [id number] Ambulatory [address] Repository 11/22/2017 [id number] [facility] ding:US Repository 11/19/2017 [id number] Ambulatory [place] [facility] ding:US Repository 11/17/2017 [id number] Ambulatory [place] [facility] ding:MTLAB Repository 11/16/2017/11/19/19 [id number] Ambulatory [place] [address] [place] [address] Hospital[facility]il Hospital ding:WC Repository 11/05/2017 [id number] Ambulatory [place] [facility] ding:LABSPEC Repository 11/03/2017 [id number] [facility] ding:CT Repository 11/02/2017 [id number] [facility] [place] [facility] ding:RAD Repository 10/27/2017 [id number] [facility] [facility] 10/22/2017/10/23/19 [id number] Emergency Reji Reji [facility] ding:ED Repository 10/22/2017 [id number] [facility] Repository 10/18/2017/10/19/19 [id number] Ambulatory Reji [place] 18 [facility] Hospital ding:WC Repository 10/16/2017 [id number] [facility] [place] [facility] ding:US Repository 10/13/2017 [id number] [facility] [place] [facility] ding:MTLAB Repository 09/17/2017/09/19/19 [id number] Ambulatory Reji [place] [facility] ding:WC Repository 08/29/2017 [id number] [facility] Repository 08/17/2017/08/18/19 [id number] Ambulatory Reji [place] [facility] ding:WC Repository 08/02/2017/08/18/19 [id number] Ambulatory Reji Reji [address] [place] [address] ding:CVS Repository 07/20/2017/07/21/19 [id number] Ambulatory Reji [place] [address] [place] [address] ding: Repository PAYERS PAYERS ENCOUNTER GUARANTOR PAYER SUBSCRIBER SOURCE 07/07/2018 ANITA Palomares Primary ANITA K [place] [id number] [facility] KEELERDOB: Community BR[place] MEDICAREPolicy [id number] [place] Number: Repository 44[address]Wcb: (612) [id number] [phone] () Date:2392-02-41KO [address] [place] [address] 82839JG: 07/07/2018 Secondary NOT GIVENUNK [place] Insurance:SELF PAY [facility] Number: Effective Repository Date:2018-05-25 06/30/2018 ANITA Palomares Primary ANITA K Reji [id number] Insurance:[facility] KEELERDOB: Community BRANDON MEDICAREPolicy [id number] Number: Repository 71269Odn: (330 [id number] [phone] (HP) Date:5487-41-69OL [address] [place] [address] 85587VX: 06/30/2018 Secondary NOT GIVENUNK [place] Insurance:SELF PAY [facility] Number: Effective Repository Date:2018-05-25 06/29/2018 ANITA Palomares Primary ANITA Palomares Reji [id number] Insurance:[employer] CARE KEELERDOB: Community BRANDON MEDICAREPolicy [id number] [place] Number: Repository [id number]: (330 [id number] [phone] (HP) Date:9929-11-11UR [address] [place] [address] 47436DG: 06/29/2018 Secondary NOT GIVENUNK Reji Insurance:SELF PAY [facility] Number: Effective Repository Date:2018-05-23 06/23/2018 ANITA Palomares Primary ANITA Palomares Reji [id number] Insurance:[employer] CARE KEELERDOB: Community BR[place] MEDICAREPolicy [id number] [place] Number: Repository 401[address]Ayy: (330 [id number] [phone] () Date:2931-27-92MA [address] [address]QQ: 06/23/2018 Secondary NOT GIVENUNK [place] Insurance:SELF PAY [facility] Number: Effective Repository Date:2018-05-25 06/16/2018 ANITA Palomares Primary ANITA Palomares Reji [id number] Insurance:[employer] CARE KEELERDOB: Community [place] MEDICAREPolicy [id number] [place] Number: Repository 26149Rni: (330) [id number] [phone] (HP) Date:1215-31-25FV [address] [place] [address] 83702XQ: 06/16/2018 Secondary NOT GIVENUNK Reji Insurance:SELF PAY [facility] Number: Effective Repository Date:2018-04-12 06/09/2018 ANITA K Primary ANITA K Reji [id number] Insurance:[employer] CARE KEELERDOB: Community [place] MEDICAREPolicy 1946[facility][birth year][facility] [place] Number[place] Repository 8[address]Hxc: (330) [id number] [phone] (HP) Date:5898-14-50CX [address] [place] [address] 75307QH: 06/09/2018 Secondary NOT GIVENUNK Reji Insurance:SELF PAY [facility] Number: Effective Repository Date:2018-04-12 06/06/2018 ANITA K Primary ANITA K Reji [id number] Insurance:[employer] CARE KEELERDOB: Community [place] MEDICAREPolicy 1946-05-[facility] [place] Number[place] Repository 09672Ukd: (330) [id number] [phone] (HP) Date:3835-80-57CC [address] [place] [address] 58759DB: 06/06/2018 Secondary NOT GIVENUNK [place] Insurance:SELF PAY [facility] Number: Effective Repository Date:2018-05-26 06/06/2018 ANITA K Primary ANITA Jelani Reji [id number] Insurance:[employer] CARE KEELERDOB: Community [place] MEDICAREPolicy 1946-05-[facility] [place] Number: Repository 59486Ets: (330) [id number] [phone] (HP) Date:3933-32-97MH [address] [place] [address] 11862KU: 06/06/2018 Secondary NOT GIVENUNK [place] Insurance:SELF PAY [facility] Number: Effective Repository Date:2018-06-06 06/02/2018 ANITA K Primary ANITA K [place] [id number] Insurance:[employer] CARE KEELERDOB: Community [place] MEDICAREPolicy 1946-05-[facility] [place] Number: Repository 91870Yyj: (330) [id number] [phone] (HP) Date:5011-13-63FC [address] [place] [address] 28645UV: 06/02/2018 Secondary NOT GIVENUNK Reji Insurance:SELF PAY [facility]: Effective Repository Date:2018-04-12 05/27/2018 ANITA Palomares Primary ANITA Palomares Reji [id number] Insurance:[employer] CARE KEELERDOB: Community BRAND[place] MEDICAREPolicy [id number] Number: Repository 14535Zbz: 330 [id number] [phone] () Date:5494-00-20PE [address] [facility] [address]EL: 05/27/2018 Secondary NOT GIVENUNK [place] Insurance:SELF PAY [facility] Number: Effective Repository Date:2018-04-12 05/25/2018 ANITA Palomares Primary ANITA Palomares [place] [id number] Insurance:[employer] CARE KEELERDOB: Community BR[place] MEDICAREPolicy [id number] Number: Repository 30313Izi: (330 [id number] [phone] () Date:0151-98-17KW BOX [facility] [address]GA: 05/25/2018 Secondary NOT GIVENUNK Reji Insurance:SELF PAY [facility] Number: Effective Repository Date:2018-05-25 05/19/2018 ANITA Palomares Primary ANITA Palomares [place] [id number] Insurance:[employer] CARE KEELERDOB: Community BR[place] MEDICAREPolicy [id number] Number: Repository 539[address]Kew: 330 [id number] [phone] () Date:2039-21-84[address] [address]UY: 05/19/2018 Secondary NOT GIVENUNK Reji Insurance:SELF PAY [facility] Number: Effective Repository Date:2018-04-12 05/11/2018 ANITA Palomares Primary ANITA Palomares Reji [id number] Insurance:[employer] CARE KEELERDOB: Community [place] MEDICAREPolicy [id number] Number: Repository [id number]: (330 [id number] [phone] (HP) Date:0111-13-14AC [address] [place] [address] 61556AB: 05/11/2018 Secondary NOT GIVENUNK [place] Insurance:SELF PAY [facility] Number: Effective Repository Date:2018-04-12 05/05/2018 ANITA Palomares Primary ANITA Jelani Reji [id number] Insurance:[employer] CARE KEELERDOB: Community [place] MEDICAREPolicy 1946-05-11[place] Number: Repository 487[address]Gcl: 330 [id number] [phone] (HP) Date:5834-48-47KZ [address] [place] [address] 07923CC: 05/05/2018 Secondary NOT GIVENUNK Reji Insurance:SELF PAY [facility] Number: Effective Repository Date:2018-04-12 04/28/2018 ANITA Palomares Primary ANITA Jelani Reji [id number] Insurance:[employer] CARE KEELERDOB: Community [place] MEDICAREPolicy 1946-05-[place] Number: Repository 31965Flt: (330 [id number] [phone] (HP) Date:7988-66-90GC [address] [place] [address] 67130SL: 04/28/2018 Secondary NOT GIVENUNK Reji Insurance:SELF PAY [facility] Number: Effective Repository Date:2018-04-12 04/27/2018 ANITA Palomares Primary ANITA Palomares [place] [id number] Insurance:[employer] CARE KEELERDOB: Community BR[place] MEDICAREPolicy [id number] Number: Repository 07254Cfl: (330 [id number] [phone] (HP) Date:9246-05-34DQ [address] [place] [address] 06795WW: 04/27/2018 Secondary NOT GIVENUNK [place] Insurance:SELF PAY [facility] Number: Effective Repository Date:2018-03-04 04/21/2018 ANITA Palomares Primary ANITA Palomares Reji [id number] Insurance:[employer] CARE KEELERDOB: Community [place] MEDICAREPolicy 1946[facility][birth year][facility] [place] Number: Repository 89605Gem: (330 [id number] [phone] (HP) Date:8154-78-11NC [address] [address]KV: 04/21/2018 Secondary NOT GIVENUNK Reji Insurance:SELF PAY [facility] Number: Effective Repository Date:2018-02-18 04/12/2018 ANITA Palomares Primary ANITA Palomares Reji [id number] Insurance:[employer] CARE KEELERDOB: Community [place] MEDICAREPolicy 1946[facility][birth year][facility] [place] Number: Repository 038[address]Nqh: (330 [id number] [phone] (HP) Date:6133-08-01DP [address] [address]SO: 04/12/2018 Secondary NOT GIVENUNK [place] Insurance:SELF PAY [facility] Number: Effective Repository Date:2018-02-18 03/31/2018 ANITA Palomares Primary ANITA Palomares [place] [id number] Insurance:SUM[employer] CARE KEELERDOB: Community [place] MEDICAREPolicy 1946-05[facility] [place] Number: Repository 46527Ztb: (330 [id number] [phone] (HP) Date:1763-56-40GD [address] 466[address]XE: 03/31/2018 Secondary NOT GIVENUNK [place] Insurance:SELF PAY [facility] Number: Effective Repository Date:2018-02-18 03/29/2018 ANITA Palomares Primary ANITA Palomares [place] [id number] Insurance:SUM[employer] CARE KEELERDOB: Community [place] MEDICAREPolicy 1946-05-[facility] [place] Number: Repository 67381Ltw: (330 [id number] [phone] (HP) Date:9609-64-84AU [address] [place] [address] 41174XQ: 03/29/2018 Secondary NOT GIVENUNK [place] Insurance:SELF PAY [facility] Number: Effective Repository Date:2018-03-21 03/24/2018 ANITA Palomares Primary ANITA Palomares Reji [id number] Insurance:[employer] CARE KEELERDOB: Community [place] MEDICAREPolicy [id number] [place] Number: Repository 92[address]Cgn: (330 [id number] [phone] (HP) Date:5049-95-58LK [address] [place] [address] 11546GP: 03/24/2018 Secondary NOT GIVENUNK [place] Insurance:SELF PAY [facility] Number: Effective Repository Date:2018-02-18 03/17/2018 ANITA Palomares Primary ANITA Palomares Reji [id number] Insurance:[employer] CARE KEELERDOB: Community [place] MEDICAREPolicy [id number] Number: Repository [address]Yar: 330 [id number] [phone] () Date:7476-71-23NX [address] [address]80[address]ZF: 03/17/2018 Secondary NOT GIVENUNK Reji Insurance:SELF PAY [facility] Number: Effective Repository Date:2018-02-18 03/10/2018 ANITA Palomares Primary ANITA Palomares [place] [id number] Insurance:SUMMA CARE KEELERDOB: Community BRAND[place] MEDICAREPolicy [id number] Number: Repository [address]Hgo: 330 [id number] [phone] (HP) Date:7449-02-81IC [address] [place] [address] 35406OH: 03/10/2018 Secondary NOT GIVENUNK [place] Insurance:SELF PAY [facility] Number: Effective Repository Date:2018-02-18 03/03/2018 ANITA Palomares Primary ANITA Palomares Reji [id number] Insurance:SUMMA CARE KEELERDOB: Community [place] MEDICAREPolicy [id number] Number: Repository 68309Qew: (330 [id number] [phone] (HP) Date:8202-62-23BZ [address] [place] [address] 10438DT: 03/03/2018 Secondary NOT GIVENUNK Reji Insurance:SELF PAY [facility] Number: Effective Repository Date:2018-02-18 03/01/2018 ANITA Palomares Primary ANITA Palomares Reji [id number] Insurance:SUMMA CARE KEELERDOB: Community [place] MEDICAREPolicy [id number] [place] Number: Repository 43133Zbo: (330) [id number] [phone] (HP) Date:8485-46-90FV [address] [place] [address] 80270JC: 03/01/2018 Secondary NOT GIVENUNK Reji Insurance:SELF PAY [facility] Number: Effective Repository Date:2018-03-01 02/28/2018 ANITA Palomares Primary ANITA Palomares [place] [id number] Insurance:SUMMA CARE KEELERDOB: Community [place] MEDICAREPolicy 1946-05-11[place] Number: Repository 14360Cpf: (330) [id number] [phone] (HP) Date:7693-32-78OL [address] [place] [address] 96274GL: 02/28/2018 Secondary NOT GIVENUNK Reji Insurance:SELF PAY [facility] Number: Effective Repository Date:2018-02-25 02/24/2018 ANITA Palomares Primary ANITA Palomares Reji [id number] Insurance:SUMMA CARE KEELERDOB: Community BRAND[place] MEDICAREPolicy [id number] Number: Repository 76153Qih: (330) [id number] [phone] (HP) Date:3566-68-05UU [address] [place] [address] 40929KA: 02/24/2018 Secondary NOT GIVENUNK [place] Insurance:SELF PAY [facility] Number: Effective Repository Date:2018-01-28 02/22/2018 ANITA Jelani Primary ANITA Palomares [place] [id number] Insurance:SUMMA CARE KEELERDOB: Community [place] MEDICAREPolicy 1946[facility]05[facility] [place] Number[place] Repository 62521Bek: (330 [id number] [phone] (HP) Date:6667-38-90ZZ [address] [place] [address] 14051MA: 02/22/2018 Secondary NOT GIVENUNK [place] Insurance:SELF PAY [facility] Number: Effective Repository Date:2018-02-22 02/17/2018 ANITA K Primary ANITA Jelani Reji [id number] Insurance:SUMMA CARE KEELERDOB: Community [place] MEDICAREPolicy 1946[facility][birth year][facility] [place] Number: Repository 64004Rbp: (330 [id number] [phone] (HP) Date:2537-75-47EO [address] [place] [address] 09881AS: 02/17/2018 Secondary NOT GIVENUNK Reji Insurance:SELF PAY [facility] Number: Effective Repository Date:2018-01-28 02/10/2018 ANITA Palomares Primary ANITA Palomares Reji [id number] Insurance:SUMMA CARE KEELERDOB: Community [place] MEDICAREPolicy 1946-05-[facility] [place] Number: Repository 67459Gwl: (330 [id number] [phone] (HP) Date:5376-80-03XC [address] [place] [address] 09825VZ: 02/10/2018 Secondary NOT GIVENUNK [place] Insurance:SELF PAY [facility] Number: Effective Repository Date:2018-01-28 02/03/2018 Anita Palomares Primary Anita Palomares Reij [id number] Insurance:SUMMA CARE KeelerDOB: Community BR[place] MEDICAREPolicy 1946-05-[facility] [place] Number: Repository 40484Cmz: (330 [id number] [phone] (HP) Date:0231-13-81GD BOX [facility] [address]EF: 02/03/2018 Secondary NOT GIVENUNK [place] Insurance:SELF PAY [facility] Number: Effective Repository Date:2018-01-13 01/27/2018 Anita Palomares Primary Anita Palomares [place] [id number] Insurance:SUMMA CARE KeelerDOB: Community BR[place] MEDICAREPolicy 1946-05-[facility] [place] Number: Repository 77289Fdq: (330 [id number] [phone] (HP) Date:4439-18-74IL [address] [place] [address] 91251JP: 01/27/2018 Secondary NOT GIVENUNK [place] Insurance:SELF PAY [facility] Number: Effective Repository Date:2018-01-27 01/27/2018 Anita Palomares Primary Anita Palomares Reji [id number] Insurance:SUMMA CARE KeelerDOB: Community BR[place] MEDICAREPolicy 1946-05[facility] [place] Number: Repository 52714Fet: (330 [id number] [phone] (HP) Date:0170-06-62NR [address] [place] [address] 42705PV: 01/27/2018 Secondary NOT GIVENUNK [place] Insurance:SELF PAY [facility] Number: Effective Repository Date:2018-01-13 01/26/2018 Anita Palomares Primary Anita Palomares [place] [id number] Insurance:SUMMA CARE KeelerDOB: Community BRAND[place] MEDICAREPolicy 1946-05-[facility] [place] Number: Repository [address]93[address]Fyq: 330 [id number] [phone] (HP) Date:4496-37-12WA [address] [place] [address] 42065LL: 01/26/2018 Secondary NOT GIVENUNK Reji Insurance:SELF PAY [facility] Number: Effective Repository Date:2018-01-26 01/25/2018 Anita Palomares Primary Anita Palomares [place] [id number] Insurance:SUMMA CARE KeelerDOB: Community BR[place] MEDICAREPolicy [id number] [place] Number: Repository 196[address]Gwf: 330 [id number] [phone] (HP) Date:9809-72-41CH [address] [place] [address]RV: 01/25/2018 Secondary NOT GIVENUNK [place] Insurance:SELF PAY [facility] Number: Effective Repository Date:2018-01-25 01/24/2018 ANITA Palomares Primary ANITA K [facility] KEELERDOB: Insurance:[facility]FF[facility] CENTERELERDOB: [facility] MEDICARE HMOPolicy [id number] Repository [place] Number: [place], [place] [id number] [place], [place] [address]Gwx: (330) Date:2018-01-03 - 60897Xmk: 2514-24-17Fito [phone] (HP)Tel: (999) Name:[address] Box (HP) (WP) [address] [place] [address] [phone] (WP) 12788UJ: 01/22/2018 Anita Palomares Primary Anita K Reji [id number] Insurance:SUMMA CARE elerDOB: Community BRANDON MEDICAREPolicy 1946-05-11[place] Number: Repository 25195Wuz: (330 [id number] [phone] (HP) Date:8009-46-82WK BOX [facility] [address]VG: 01/22/2018 Secondary NOT GIVENUNK Reji Insurance:SELF PAY [facility] Number: Effective Repository Date:2018-01-22 01/22/2018 Anita Palomares Primary Anita K [place] [id number] Insurance:SUMMA CARE KeelerDOB: Community BR[place] MEDICAREPolicy 1946-05-11[place] Number: Repository 607[address]Fka: (330 [id number] [phone] (HP) Date:7718-34-43VW BOX [facility] [address]IS: 01/22/2018 Secondary NOT GIVENUNK Reji Insurance:SELF PAY [facility] Number: Effective Repository Date:2018-01-22 01/22/2018 Anita Palomares Primary Anita Palomares Reji [id number] Insurance:SUMMA CARE KeelerDOB: Community BRANDON MEDICAREPolicy [id number] Number: Repository [address]Ubw: (330 [id number] [phone] (HP) Date:0021-66-48OZ [address] [place] [address] 05727LW: 01/22/2018 Secondary NOT GIVENUNK Reji Insurance:SELF PAY [facility] Number: Effective Repository Date:2018-01-22 01/22/2018 Anita Palomares Primary Anita Palomares Reji [id number] Insurance:SUMMA CARE KeelerDOB: Community BR[place] MEDICAREPolicy [id number] [address] Number: Repository [address]Lse: 330 [id number] [phone] (HP) Date:8996-94-24BE [address] [place] [address] 78263SS: 01/22/2018 Secondary NOT GIVENUNK Reji Insurance:SELF PAY [facility] Number: Effective Repository Date:2018-01-22 01/21/2018 Anita Palomares Primary Anita Palomares [place] [id number] Insurance:[employer] C[employer] KeelerDOB: Community BRAND[place] MEDICAREPolicy [id number] Number: Repository [address]Pel: 330 [id number] [phone] (HP) Date:0033-31-66VQ [address] [place] [address] 10129WM: 01/21/2018 Secondary NOT GIVENUNK Reji Insurance:SELF PAY [facility] Number: Effective Repository Date:2018-01-21 01/20/2018 Anita Palomares Primary Anita Palomares [place] [id number] Insurance:[employer] CARE KeelerDOB: Community [place] MEDICAREPolicy [facility] [place] Number: Repository [address]Cku: (330 [id number] [phone] (HP) Date:0075-97-34WF [facility] [address]PI: 01/20/2018 Secondary NOT GIVENUNK [place] Insurance:SELF PAY [facility] Number: Effective Repository Date:2018-01-13 01/13/2018 Anita Jelani Primary Anita K [place] [id number] Insurance:[employer] CARE KeelerDOB: Community [place] MEDICAREPolicy [id number] Number: Repository [address]Res: (330) [id number] [phone] (HP) Date:7522-22-65NC [address] [place] [address] 89332AI: 01/13/2018 Secondary NOT GIVENUNK [place] Insurance:SELF PAY [facility] Number: Effective Repository Date:2018-01-06 01/06/2018 Anita K Primary Anita K Reji [id number] Insurance:[employer] CARE KeelerDOB: Community [place] MEDICAREPolicy [facility] [place] Number: Repository [address]Gyc: (330) [id number] [phone] (HP) Date:7846-84-63OV [address] [place] [address] 52650CL: 01/06/2018 Secondary NOT GIVENUNK Reji Insurance:SELF PAY [facility] Number: Effective Repository Date:2017-12-30 12/31/2017 Anita Jelani Primary Anita Jelani [place] [id number] Insurance:[employer]MA CARE KeelerDOB: Community [place] MEDICAREPolicy [facility] [place] Number[place] Repository [address]Mvt: (330) [id number] [phone] (HP) Date:4450-71-62KI [address] [place] [address] 73452YR: 12/31/2017 Secondary NOT GIVENUNK Reji Insurance:SELF PAY [facility] Number: Effective Repository Date:2017-12-31 12/30/2017 Anita Palomares Primary Anita Palomares Reji [id number] Insurance:[employer]MA CARE KeelerDOB: Community [place] MEDICAREPolicy [facility] [place] Number[place] Repository [address]Lkp: (330 [id number] [phone] (HP) Date:2117-32-84RV [address] [place] [address] 16012CG: 12/30/2017 Secondary NOT GIVENUNK Reji Insurance:SELF PAY [facility] Number: Effective Repository Date:2017-12-13 12/29/2017 Anita Palomares Primary Anita Palomares [place] [id number] Insurance:[employer] CARE KeelerDOB: Community [place] MEDICAREPolicy [facility] [place] Number[place] Repository [address]Hhl: (330) [id number] [phone] (HP) Date:7953-80-57II [address] [place] [address] 37448NS: 12/29/2017 Secondary NOT GIVENUNK Reji Insurance:SELF PAY [facility] Number: Effective Repository Date:2017-12-19 12/23/2017 Anita Palomares Primary Anita Palomares Reji [id number] Insurance:[employer] CARE KeelerDOB: Community [place] MEDICAREPolicy [facility] [place] Number[place] Repository [address]Lcv: (330) [id number] [phone] (HP) Date:2692-62-20JU [address] [place] [address] 65097WJ: 12/23/2017 Secondary NOT GIVENUNK Reji Insurance:SELF PAY [facility] Number: Effective Repository Date:2017-12-13 12/20/2017 Anita Palomares Primary Anita Palomares Reji [id number] Insurance:[employer] CARE KeelerDOB: Community [place] MEDICAREPolicy [facility] [place] Number[place] Repository [address]Jst: (330) [id number] [phone] (HP) Date:5835-26-30MY [address] [facility] [address]PI: 12/20/2017 Secondary NOT GIVENUNK Reji Insurance:SELF PAY [facility] Effective Rep[facility] Date:2017-12-02 12/17/2017 Anita Palomares Primary Anita Palomares Reji [id number] Insurance:[employer] CARE KeelerDOB: Community [place] MEDICAREPolicy [facility][birth year][facility] [place] Number[place] Repository [address]Lao: (330) [id number] [phone] (HP) Date:6184-94-27VJ [address] [place] [address] 14837JO: 12/17/2017 Secondary NOT GIVENUNK [place] Insurance:SELF PAY [facility] Number: Effective Repository Date:2017-11-17 12/14/2017 Anita Palomares Primary Anita Palomares [place] [id number] Insurance:[employer] CARE KeelerDOB: Community BR[place] MEDICAREPolicy [facility][birth year][facility] [place] Number[place] Repository [address]Tzu: (330) [id number] [phone] (HP) Date:6117-51-64VF [address] [place] [address] 63931LW: 12/14/2017 Secondary NOT GIVENUNK [place] Insurance:SELF PAY [facility] Number: Effective Repository Date:2017-11-19 12/10/2017 Anita Palomares Primary Anita Palomares Reji [id number] Insurance:[employer] CARE KeelerDOB: Community [place] MEDICAREPolicy [facility][birth year][facility] [place] Number[place] Repository [address]Jfn: (330 [id number] [phone] (HP) Date:2369-04-22XY [address] [place] [address] 42394KD: 12/10/2017 Secondary NOT GIVENUNK Reji Insurance:SELF PAY [facility] Number: Effective Repository Date:2017-12-02 12/02/2017 Anita Palomares Primary Anita Palomares [place] [id number] Insurance:[employer]MA CARE KeelerDOB: Community [place] MEDICAREPolicy [id number] Number: Repository 228[address]Ude: (330) [id number] [phone] (HP) Date:9373-84-00KP [address] [facility] [address]VE: 12/02/2017 Secondary NOT GIVENUNK [place] Insurance:SELF PAY [facility] Number: Effective Repository Date:2017-11-17 11/25/2017 Anita K Primary Anita K Reji [id number] Insurance:[employer]MA CARE KeelerDOB: Community [place] MEDICAREPolicy [address] Number: Repository 79783Vgh: (330) [id number] [phone] (HP) Date:3673-23-54WL [address] [place] [address] 70129LV: 11/25/2017 Secondary NOT GIVENUNK [place] Insurance:SELF PAY [facility] Number: Effective Repository Date:2017-11-24 11/24/2017 Anita K Primary Anita K [place] [id number] Insurance:[employer] CARE KeelerDOB: Community BR[place] MEDICAREPolicy [address] Number: Repository 85283Fep: (330) [id number] [phone] (HP) Date:4702-22-55JX [address] [place] [address] 89681GW: 11/24/2017 Secondary NOT GIVENUNK Reji Insurance:SELF PAY [facility] Number: Effective Repository Date:2017-11-24 11/22/2017 Anita K Primary Anita K [place] [id number] [facility] KeelerDOB: Community BRAND[place] MEDICAREPolicy [facility][birth year][facility] [place] Number[place] Repository [address]Aet: (330) [id number] [phone] (HP) Date:3678-56-02CM [address] [place] [address] 71627UT: 11/22/2017 Secondary NOT GIVENUNK Reji Insurance:SELF PAY [facility] Number: Effective Repository Date:2017-11-19 11/19/2017 Anita Palomares Primary Anita Palomares Reji [id number] Insurance:[employer] CARE KeelerDOB: Community BR[place] MEDICAREPolicy [facility][birth year][facility] [place] Number[place] Repository 244[address]Lgz: (330 [id number] [phone] (HP) Date:9957-05-65GR [address] [place] [address] 55339TO: 11/19/2017 Secondary NOT GIVENUNK [place] Insurance:SELF PAY [facility] Number: Effective Repository Date:2017-11-17 11/17/2017 Anita Palomares Primary Anita Palomares Reji [id number] Insurance:[employer] CARE KeelerDOB: Community [place] MEDICAREPolicy [facility][birth year][facility] [place] Number[place] Repository 495[address]Jxo: (330) [id number] [phone] (HP) Date:3385-38-93PD [address] [place] [address] 20660VO: 11/17/2017 Secondary NOT GIVENUNK Reji Insurance:SELF PAY [facility] Number: Effective Repository Date:2017-11-17 11/16/2017 Anita Palomares Primary Anita Palomares [place] [id number] Insurance:[employer] CARE KeelerDOB: Community [place] MEDICAREPolicy [facility][birth year][facility] [place] Number[place] Repository 75335Yks: (330) [id number] [phone] (HP) Date:7715-55-89WZ [address] [place] [address] 13700SH: 11/16/2017 Secondary NOT GIVENUNK [place] Insurance:SELF PAY [facility] Number: Effective Repository Date:2017-10-19 11/05/2017 Anita Palomares Primary Anita Palomares [place] [id number] Insurance:[employer]MA CARE KeelerDOB: Community [place] MEDICAREPolicy [facility][birth year][facility] [place] Number: Repository [address]Ofw: (330) [id number] [phone] (HP) Date:9184-50-30QD [facility] [facility] [place] [address]JT: 11/05/2017 Secondary NOT GIVENUNK [place] Insurance:SELF PAY [facility]: Effective Repository Date:2017-11-05 11/03/2017 Anita Palomares Primary Anita K Reji [id number] Insurance:SUMMA CARE KeelerDOB: Community BR[employer] MEDICAREPolicy [id number] Number: Repository [id number]: (330 [id number] [phone] (HP) Date:3011-69-85QP [address] [facility] [address]LS: 11/03/2017 Secondary NOT GIVENUNK Reji Insurance:SELF PAY [facility] Number: Effective Repository Date:2017-11-02 11/02/2017 Anita Palomares Primary Anita Jelani [place] [id number] Insurance:[employer] CARE KeelerDOB: Community BR[employer] MEDICAREPolicy [id number] Number: Repository 06997Mbq: (330) [id number] [phone] (HP) Date:0484-68-93LF [address] [facility] [address]UY: 11/02/2017 Secondary NOT GIVENUNK [place] Insurance:SELF PAY [facility] Number: Effective Repository Date:2017-11-02 10/27/2017 Anita Palomares Primary Anita K [place] [id number] Insurance:[employer] CARE KeelerDOB: Community BR[employer] MEDICAREPolicy [id number] Number: Repository [id number]: (330 [id number] [phone] (HP) Date:8678-69-38MF [address] [facility] [address]XM: 10/27/2017 Secondary NOT GIVENUNK [place] Insurance:SELF PAY [facility] Number: Effective Repository Date:2017-10-25 10/22/2017 Anita Palomares Primary Anita K Reji [id number] Insurance:[employer] CARE KeelerDOB: Community [employer] MEDICAREPolicy [id number] Number: Repository 976[address]Wsy: (330) [id number] [phone] (HP) Date:1967-19-33LM [place] [address]XQ: 10/22/2017 Secondary NOT GIVENUNK [place] Insurance:SELF PAY [facility] Number: Effective Repository Date:2017-10-22 10/22/2017 Anita K Primary Anita K Reji [id number] Insurance:[employer]MA CARE KeelerDOB: Community [employer] MEDICAREPolicy [address] Number: Repository 6[address]Iis: (330) [id number] [phone] (HP) Date:5286-17-24ZL [address] [place] [address] 99179MD: 10/22/2017 Secondary NOT GIVENUNK Reji Insurance:SELF PAY [facility] Number: Effective Repository Date:2017-10-19 10/18/2017 Anita K Primary Anita K Reji [id number] Insurance:[employer]MA CARE KeelerDOB: Community [employer] MEDICAREPolicy 1946[address] Number: Repository [address]79[address]Yyt: (330 [id number] [phone] (HP) Date:3337-71-03TV [address] [place] [address] 74414UB: 10/18/2017 Secondary NOT GIVENUNK Reji Insurance:SELF PAY [facility] Number: Effective Repository Date:2017-09-19 10/16/2017 Anita K Primary Anita K Reji [id number] Insurance:[employer]MA CARE KeelerDOB: Community [place] MEDICAREPolicy [id number] Number: Repository 68078Qft: (330 [id number] [phone] (HP) Date:8470-35-48YL [address] [place] [address] 93007YG: 10/16/2017 Secondary NOT GIVENUNK Reji Insurance:SELF PAY [facility] Number: Effective Repository Date:2017-10-14 10/13/2017 Anita Palomares Primary Anita Palomares Reji [id number] Insurance:[employer] CARE KeelerDOB: Community BR[place] MEDICAREPolicy [facility] [place] Number[place] Repository [address]Loo: 330 [id number] [phone] () Date:5238-09-53KM [address] [place] [address] 65804SD: 10/13/2017 Secondary NOT GIVENUNK Reji Insurance:SELF PAY [facility] Number: Effective Repository Date:2017-10-13 09/17/2017 Anita Palomares Primary Anita Palomares Reji [id number] Insurance:[employer] CARE KeelerDOB: Community [place] MEDICAREPolicy [facility][birth year][facility] [place] Number[place] Repository [address]Plu: (330 [id number] [phone] () Date:2124-22-05LX [address] [place] [address] 32599AD: 09/17/2017 Secondary NOT GIVENUNK [place] Insurance:SELF PAY [facility] Number: Effective Repository Date:2017-08-19 08/29/2017 Anita Palomares Primary Anita Palomares [place] [id number] Insurance:[employer]MA CARE KeelerDOB: Community [place] MEDICAREPolicy [facility][birth year][facility] [place] Number[place] Repository [address]Tia: (330 [id number] [phone] () Date:5737-21-22KA [address] [place] [address] 61012BU: 08/29/2017 Secondary NOT GIVENUNK [place] Insurance:SELF PAY [facility] Number: Effective Repository Date:2017-08-19 08/17/2017 Anita Palomares Primary Anita Palomares Reji [id number] Insurance:[employer]MA CARE KeelerDOB: Community [place] MEDICAREPolicy [facility][birth year][facility] [place] Repository [address]Sha: (330 [id number] [phone] (HP) Date:3062-45-88LC [address] [place] [address] 45913KC: 08/17/2017 Secondary NOT GIVENUNK Reji Insurance:SELF PAY [facility] Number: Effective Repository Date:2017-07-27 08/02/2017 Anita Palomares Primary Anita K [place] [id number] Insurance:SUMMA CARE KeelerDOB: Community [place] MEDICAREPolicy [id number] Number[place] Repository [address]Tjx: 330 [id number] [phone] () Date:6744-30-43HL [address] [place] [address] 92088YE: 08/02/2017 Secondary NOT GIVENUNK [place] Insurance:SELF PAY [facility] Number: Effective Repository Date:2017-07-22 07/20/2017 Anita K Primary Anita Jelani Reji [id number] Insurance:[employer]MA CARE KeelerDOB: Community [place] MEDICAREPolicy [id number] Number[place]ository [address]Rba: (330 [id number] [phone] () Date:4776-38-64TA [address] [place] [address] 46564ET: 07/20/2017 Secondary NOT GIVENUNK Reji Insurance:SELF PAY [facility] Number: Effective Repository Date:2017-07-20
== END ==
PROVIDERS: Family Provider Family Medicine; PCP Family Medicine; Referring Provider Internal Medicine Gastroenterology; Visit Provider Internal Medicine Gastroenterology
DX: K74.60 Unspecified cirrhosis of liver (principal)
CPT/HCPCS: 49083

== ENCOUNTER → 2018-06-06 13:51 | Outpatient (CLI) | payer MEDICARE, SELFPAY ==
[2018-05-19 11:29] VITALS: BMI 29.9
[2018-06-02 10:45] VITALS: BMI 30.2
--- NOTE | 2018-06-06 13:54 | ECHOCS_ITS ---
Reason For Study: Murmur Procedure This was a 2D Doppler, Color Flow transthoracic echocardiogram. Exam performed in department. Left Ventricle Normal LV size. Left ventricular systolic function is normal. The estimated ejection fraction is 65 %. Stage 1 diastolic dysfunction. No regional wall motion abnormalities noted. Right Ventricle Normal RV size. Normal systolic function. Atria Normal left atrium. Normal right atrium. Mitral Valve Normal mitral valve. Tricuspid Valve Normal tricuspid valve. Aortic Valve Trisinus/trileaflet aortic valve. Moderate focal aortic valve calcification. Mild aortic stenosis. Mild (1+) aortic valve insufficiency. Pulmonic Valve Normal pulmonic valve. Great Vessels Normal aortic root. The pulmonary artery is normal size. Normal inferior vena cava. Pericardium/Pleural No pericardial effusion. Medication Definity0.4ml given slow IV push to enhance endocardial definition. MMode/2D Measurements & Calculations LVIDd: 3.1 cm IVSd: 1.1 cm LVOT diam: 2.0 cm LVIDs: 1.6 cm LVPWd: 0.97 cm RVDd: 3.7 cm FS: 48.3 % LVOT area: 3.0 cm2 Ao root diam: 3.0 cm LAV(MOD-bp): 44.8 ml LVAd ap4: 26.2 cm2 LAV(MOD-bp) Indexed: 25.4 ml/m2 EDV(MOD-sp4): 76.6 ml LAV(MOD-sp2): 34.0 ml EDV(sp4-el): 80.7 ml LAV(MOD-sp4): 55.2 ml LVAs ap4: 12.4 cm2 ESV(MOD-sp4): 22.4 ml ESV(sp4-el): 23.9 ml EF(MOD-sp4): 70.7 % EF(sp4-el): 70.3 % SV(MOD-sp4): 54.2 ml SV(sp4-el): 56.8 ml LA A4 area: 20.4 cm2 LA dimension(2D): 2.6 cm RA A4 area: 12.5 cm2 Doppler Measurements & Calculations MV E max john: 90.9 cm/sec Lat Peak E' John: 4.5 cm/sec Med Peak E' John: 4.6 cm/sec MV A max john: 106.5 cm/sec E/E' lat: 20.1 E/E' med: 19.8 MV E/A: 0.85 Ao V2 max: 275.7 cm/sec LV V1 max: 119.0 cm/sec SV(LVOT): 78.8 ml Ao max P.4 mmHg LV V1 max P.7 mmHg Ao V2 mean: 200.6 cm/sec LV V1 mean P.3 mmHg Ao mean P.5 mmHg LV V1 mean: 87.0 cm/sec Ao V2 VTI: 57.8 cm LV V1 VTI: 26.0 cm KULWANT(I,D): 1.4 cm2 KULWANT(V,D): 1.3 cm2 PA V2 max: 149.5 cm/sec TR max john: 229.4 cm/sec TR max P.0 mmHg Interpretation Summary Normal LV size. Left ventricular systolic function is normal. The estimated ejection fraction is 65 %. Stage 1 diastolic dysfunction. Mild aortic stenosis. Contrast injection was performed. Compared to prior study, there is no significant change. Ordering Physician: Nicola Bay Referring Physician: Nicola Bay Performed By: Ciera Jarrett, JAVON, RVT
--- OUTSIDE RECORDS SUMMARY | 2018-09-08 05:28 | XMS RPT_ITS ---
:1945 Author Organization OHIP Support Name Relationship Address Phone NEIL MANTILLA Unavailable [address] + [place] [address] GAGE KIMBLE Unavailable [address] + [place] [address] R Unavailable Unavailable Unavailable DAVIDNEIL ANSARI Unavailable [address] + [place] [address] GAGE KIMBLE Unavailable [address] + [place] [address] R Unavailable Unavailable Unavailable DAVIDNEIL ANSARI Unavailable [address] + [place] [address] GAGE KIMBLE Unavailable [address] + [place] [address] R Unavailable Unavailable Unavailable DAVIDNEIL ANSARI Unavailable [address] + [place] [address] GAGE KIMBLE Unavailable [address] + [place] [address] R Unavailable Unavailable Unavailable DAVIDNEIL ANSARI Unavailable [address] + [place] [address] GAGE KIMBLE Unavailable [address] + [place] [address] R Unavailable Unavailable Unavailable DAVIDELAN NEIL Unavailable [address] + [place] [address] GAGE KIMBLE Unavailable [address] + [place] [address] R Unavailable Unavailable Unavailable DAVIDNEIL ANSARI Unavailable [address] + [place] [address] GAGE KIMBLE Unavailable [address] + [place] [address] R Unavailable Unavailable Unavailable NEIL MANTILLA Unavailable [address] + [place] [address] GAGE KIMBLE Unavailable [address] + [place] [address] R Unavailable Unavailable Unavailable NEIL MANTILLA Unavailable [address] + [place] [address] GAGE KIMBLE Unavailable [address] + [place] [address] R Unavailable Unavailable Unavailable NEIL MANTILLA Unavailable [address] + [place] [address] AGGE KIMBLE Unavailable [address] + [place] [address] R Unavailable Unavailable Unavailable NEIL MANTILLA Unavailable [address] + [place] [address] GAGE KIMBLE Unavailable [address] + [place] [address] R Unavailable Unavailable Unavailable NEIL MANTILLA Unavailable [address] + [place] [address] GAGE KIMBLE Unavailable [address] + [place] [address] R Unavailable Unavailable Unavailable NEIL MANTILLA Unavailable [address] + [place] [address] GAGE KIMBLE Unavailable [address] + [place] [address] R Unavailable Unavailable Unavailable NEIL MANTILLA Unavailable [address] + [place] [address] GAGE KIMBLE Unavailable [address] + [place] [address] R Unavailable Unavailable Unavailable NEIL MANTILLA Unavailable [address] + [place] [address] GAGE KIMBLE Unavailable [address] + [place] [address] R Unavailable Unavailable Unavailable NEIL MANTILLA Unavailable [address] + [place] [address] GAGE KIMBLE Unavailable [address] + [place] [address] R Unavailable Unavailable NEIL Matute Unavailable [address] + [place] [address] GAGE KIMBLE Unavailable [address] + [place] [address] R Unavailable Unavailable Unavailable NEIL MANTILLA Unavailable [address] + [place] [address] GAGE KIMBLE Unavailable [address] + [place] [address] R Unavailable Unavailable Unavailable NEIL MANTILLA Unavailable [address] + [place] [address] GAGE KIMBLE Unavailable [address] + [place] [address] R Unavailable Unavailable Unavailable NEIL MANTILLA Unavailable [address] + [place] [address] GAGE KIMBLE Unavailable [address] + [place] [address] R Unavailable Unavailable Unavailable NEIL MANTILLA Unavailable [address] + [place] [address] GAGE KIMBLE Unavailable [address] + [place] [address] R Unavailable Unavailable Unavailable NEIL MANTILLA Unavailable [address] + [place] [address] GAGE KIMBLE Unavailable [address] + [place] [address] R Unavailable Unavailable Unavailable NEIL MANTILLA Unavailable [address] + [place] [address] GAGE KIMBLE Unavailable [address] + [place] [address] R Unavailable Unavailable Unavailable NEIL MANTILLA Unavailable [address] + [place] [address] GAGE KIMBLE Unavailable [address] + [place] [address] R Unavailable Unavailable Unavailable NELI MANTILLA Unavailable [address] + [place] [address] GAGE KIMBLE Unavailable [address] + [place] [address] R Unavailable Unavailable Unavailable NEIL MANTILLA Unavailable [address] + [place] [address] GAGE KIMBLE Unavailable [address] + [place] [address] R Unavailable Unavailable Unavailable NEIL MANTILLA Unavailable [address] + [place] [address] GAGE KIMBLE Unavailable [address] + [place] [address] R Unavailable Unavailable Unavailable NEIL MANTILLA Unavailable [address] + [place] [address] GAGE KIMBLE Unavailable [address] + [place] [address] R Unavailable Unavailable Unavailable NEIL MANTILLA Unavailable [address] + [place] [address] GAGE KIMBLE Unavailable [address] + [place] [address] R Unavailable Unavailable Unavailable NEIL MANTILLA Unavailable [address] + [place] [address] GAGE KIMBLE Unavailable [address] + [place] [address] R Unavailable Unavailable Unavailable NEIL MANTILLA Unavailable [address] + [place] [address] GAGE KIMBLE Unavailable [address] + [place] [address] R Unavailable Unavailable Unavailable NEIL MANTILLA Unavailable [address] + [place] [address] GAGE KIMBLE Unavailable [address] + [place] [address] R Unavailable Unavailable Unavailable NEIL MANTILLA Unavailable [address] + [place] [address] GAGE KIMBLE Unavailable [address] + [place] [address] R Unavailable Unavailable Unavailable NEIL MANTILLA Unavailable [address] + [place] [address] GAGE KIMBLE Unavailable [address] + [place] [address] R Unavailable Unavailable Unavailable NEIL MANTILLA Unavailable [address] + [facility] [address] GAGE KIMBLE Unavailable [address] + [place] [address] R Unavailable Unavailable Unavailable NEIL MANTILLA Unavailable Unavailable + NEIL MANTILLA Unavailable Unavailable + GAGE KIMBLE Unavailable Unavailable + NEIL MANTILLA Unavailable [address] + [place] [address] GAGE KIMBLE Unavailable [address] + [place] [address] R Unavailable Unavailable Unavailable NEIL MANTILLA Unavailable [address] + [place] [address] GAGE KIMBLE Unavailable [address] + [place] [address] R Unavailable Unavailable Unavailable NEIL MANTILLA Unavailable [address] + [place] [address] GAGE KIMBLE Unavailable [address] + [place] [address] R Unavailable Unavailable Unavailable NEIL MANTILLA Unavailable [address] + [place] [address] GAGE KIMBLE Unavailable [address] + [place] [address] R Unavailable Unavailable Unavailable NEIL MANTILLA Unavailable [address] + [place] [address] GAGE KIMBLE Unavailable [address] + [place] [address] R Unavailable Unavailable Unavailable NEIL MANTILLA Unavailable [address] + [place] [address] GAGE KIMBLE Unavailable [address] + [place] [address] R Unavailable Unavailable Unavailable NEIL MANTILLA Unavailable [address] + [place] [address] GAGE KIMBLE Unavailable [address] + [place] [address] R Unavailable Unavailable NEIL Matute Unavailable [address] + [place] [address] GAGE KIMBLE Unavailable [address] + [place] [address] R Unavailable Unavailable Unavailable NEIL MANTILLA Unavailable [address] + [place] [address] GAGE KIMBLE Unavailable [address] + [place] [address] R Unavailable Unavailable Unavailable NEIL MANTILLA Unavailable [address] + [place] [address] GAGE KIMBLE Unavailable [address] + [place] [address] R Unavailable Unavailable Unavailable NEIL MANTILLA Unavailable [address] + [place] [address] GAGE KIMBLE Unavailable [address] + [place] [address] R Unavailable Unavailable Unavailable NEIL MANTILLA Unavailable [address] + [place] [address] GAGE KIMBLE Unavailable [address] + [place] [address] R Unavailable Unavailable Unavailable NEIL MANTILLA Unavailable [address] + [place] [address] GAGE KIMBLE Unavailable [address] + [place] [address] R Unavailable Unavailable Unavailable NEIL MANTILLA Unavailable [address] + [place] [address] GAGE KIMBLE Unavailable [address] + [place] [address] R Unavailable Unavailable Unavailable NEIL MANTILLA Unavailable [address] + [place] [address] GAGE KIMBLE Unavailable [address] + [place] [address] R Unavailable Unavailable Unavailable NEIL MANTILLA Unavailable [address] + [place] [address] GAGE KIMBLE Unavailable [address] + [place] [address] R Unavailable Unavailable Unavailable NEIL MANTILLA Unavailable [address] + [place] [address] GAGE KIMBLE Unavailable [address] + [place] [address] R Unavailable Unavailable Unavailable NEIL MANTILLA Unavailable [address] + [place] [address] GAGE KIMBLE Unavailable [address] + [place] [address] R Unavailable Unavailable Unavailable NEIL MANTILLA Unavailable [address] + [place] [address] GAGE KIMBLE Unavailable [address] + [place] [address] R Unavailable Unavailable Unavailable NEIL MANTILLA Unavailable [address] + [place] [address] GAGE KIMBLE Unavailable [address] + [place] [address] R Unavailable Unavailable Unavailable NEIL MANTILLA Unavailable [address] + [place] [address] GAGE KIMBLE Unavailable [address] + [place] [address] R Unavailable Unavailable Unavailable NEIL MANTILLA Unavailable [address] + [place] [address] GAGE KIMBLE Unavailable [address] + [place] [address] R Unavailable Unavailable Unavailable NEIL MANTILLA Unavailable [address] + [place] [address] GAGE KIMBLE Unavailable [address] + [place] [address] R Unavailable Unavailable Unavailable NEIL MANTILLA Unavailable [address] + [place] [address] GAGE KIMBLE Unavailable [address] + [place] [address] R Unavailable Unavailable Unavailable NEIL MANTILLA Unavailable [address] + [place] [address] GAGE KIMBLE Unavailable [address] + [place] [address] R Unavailable Unavailable NEIL Matute Unavailable [address] + [place] [address] GAGE KIMBLE Unavailable [address] + [place] [address] R Unavailable Unavailable Unavailable NEIL MANTILLA Unavailable [address] + [place] [address] GAGE KIMBLE Unavailable [address] + [place] [address] R Unavailable Unavailable Unavailable NEIL MANTILLA Unavailable [address] + [place] [address] GAGE KIMBLE Unavailable [address] + [place] [address] R Unavailable Unavailable Unavailable NEIL MANTILLA Unavailable [address] + [place] [address] GAGE KIMBLE Unavailable [address] + [place] [address] R Unavailable Unavailable Unavailable NEIL MANTILLA Unavailable [address] + [place] [address] GAGE KIMBLE Unavailable [address] + [place] [address] R Unavailable Unavailable Unavailable NEIL MANTILLA Unavailable [address] + [place] [address] GAGE KIMBLE Unavailable [address] + [place] [address] R Unavailable Unavailable Unavailable NEIL MANTILLA Unavailable [address] + [place] [address] GAGE KIMBLE Unavailable [address] + [place] [address] R Unavailable Unavailable Unavailable NEIL MANTILLA Unavailable [address] + [place] [address] GAGE KIMBLE Unavailable [address] + [place] [address] R Unavailable Unavailable Unavailable NEIL MANTILLA Unavailable [address] + [place] [address] GAGE KIMBLE Unavailable [address] + [place] [address] R Unavailable Unavailable Unavailable NEIL MANTILLA Unavailable [address] + [place] [address] GAGE KIMBLE Unavailable [address] + [place] [address] R Unavailable Unavailable Unavailable NEIL MANTILLA Unavailable [address] + [place] [address] GAGE KIMBLE Unavailable [address] + [place] [address] R Unavailable Unavailable Unavailable NEIL MANTILLA Unavailable [address] + [place] [address] GAGE KIMBLE Unavailable [address] + [place] [address] R Unavailable Unavailable Unavailable Care Team Providers Name Role Phone JONATHAN LOPEZ, DR. GONZALEZ Attending Unavailable VENKAT LOPEZ, DR. NICOLA Hartley Primary Care Unavailable NICOLA PRICE Attending Unavailable MASCNICOLA Carpenter Referring Unavailable MASCI, NICOLA Hartman Referring Unavailable MASCI, NICOLA Hartman Attending Unavailable MASCI, NICOLA Hartman Referring Unavailable MASCI, NICOLA Hartman Referring Unavailable Bay, Nicola Attending Unavailable Bay, Nicola Referring Unavailable Bay, Nicola Primary Care Unavailable Jonathan, Abimael Attending Unavailable Jabour, Abimael Referring Unavailable Bay, Nicola Primary Care Unavailable Jabour, Abimael Attending Unavailable Jabour, Abimael Referring Unavailable Bay, Nicola Primary Care Unavailable Jaemeli, Abimael Attending Unavailable Jonathan, Abimael Referring Unavailable Bay, Nicola Primary Care Unavailable Jaemeli, Abimael Attending Unavailable Jabour, Abimael Referring Unavailable Bay, Nicola Primary Care Unavailable Jabour, Abimael Attending Unavailable Jabour, Abimael Referring Unavailable Bay, Nicola Primary Care Unavailable Rob Claire Attending Unavailable Bay, Nicola Primary Care Unavailable Rob Claire Attending Unavailable Bay, Nicola Primary Care Unavailable ClaireScoobyin Referring Unavailable Rob Claire Attending Unavailable Bay, Nicola Primary Care Unavailable Rob Claire Attending Unavailable Claire, Rob Referring Unavailable Bay, Nicola Primary Care Unavailable Rob Claire Attending Unavailable Bay, Nicola Primary Care Unavailable Bay, Nicola Primary Care Unavailable Jose Alfredo Barnett Attending Unavailable BayNicola Attending Unavailable Bay, Nicola Referring Unavailable Bay, Nicola Primary Care Unavailable Americo Gomez Attending Unavailable Bay, Nicola Referring Unavailable Bay, Nicola Attending Unavailable Bay, Nicola Referring Unavailable Bay, Nicola Primary Care Unavailable Barnett, Jose Alfredo Attending Unavailable Bay, Nicola Primary Care Unavailable Jabour, Vincent Attending Unavailable Jabour, Vincent Referring Unavailable Bay, Nicola Primary Care Unavailable Bay, Nicola Primary Care Unavailable UngurAntonio Attending Unavailable Jabour, Vincent Attending Unavailable Jabour, Vincent Referring Unavailable Bay, Nicola Primary Care Unavailable Qi, Rob Gutierrez Attending Unavailable Qi, Rob Gutierrez Referring Unavailable Bay, Nicola Primary Care Unavailable Bong, Iveth [place] Attending Unavailable Bay, Nicola Primary Care Unavailable Bong, Iveth [place] Attending Unavailable Bay, Nicola Primary Care Unavailable Bong, Iveth [place] Referring Unavailable Jabour, Vincent Attending Unavailable Jabour, [...] Attending Unavailable Jabour, Vincent Referring Unavailable Bay, Nciola Primary Care Unavailable Barnett, Jose Alfredo Attending [...] STATUS SOURCE 06/28/2018 Unknown R01.1 - Cardiac JasonRio maril Active [facility] murmur, unspecified / Community R01.1(ICD-10) Hospital Repository 05/25/2018 Unknown 401.9 - Unspecified Abimael Castillo Active [facility] essential Community hypertension / Hospital 401.9(ICD-9) Repository 05/25/2018 Unknown I10 - Essential Abimael Castillo Active [facility] (primary) Community hypertension / Hospital I10(ICD-10) Repository 05/25/2018 Unknown 250.00 - Diabetes Abimael Castillo Active [facility] mellitus without Community mention of Hospital complication, type II Repository or unspecified type, not stated as uncontrolled / 250.00(ICD-9) 05/25/2018 Unknown E11.9 - Type 2 Abimael Castillo Active [facility] diabetes mellitus Community without complications Hospital / E11.9(ICD-10) Repository 05/23/2018 Unknown R18.8 - Other ascites Abimael Castillo Active [facility] / R18.8(ICD-10) Community Hospital Repository 05/23/2018 Unknown K74.60 - Unspecified Abimael Castillo Active [facility] cirrhosis of liver / Community K74.60(ICD-10) Hospital Repository 03/31/2017 Active Other pancytopenia / NA Active [facility] D61.818(ICD-10) [facility] Main [place] Repository 03/01/2018 Unknown D61.818 - Other AlbertNicola Active [facility] pancytopenia / Community D61.818(ICD-10) Hospital Repository 04/19/2018 Unknown E87.5 - Hyperkalemia Nicola Bay Active [facility] / E87.5(ICD-10) [facility] Repository 01/26/2018 Unknown K75.81 - Nonalcoholic BayNicola mcfarland Active [facility] steatohepatitis Community ([facility]) / Hospital K75.81(ICD-10) Repository 12/19/2017 Unknown E11.622 - Type 2 Jose Alfredo Barnett Active [facility] diabetes mellitus [facility] with other skin ulcer Hospital / E11.622(ICD-10) Repository 11/24/2017 Active Other iron deficiency NA Active [place] anemias / Clinic Main D50.8(ICD-10) [facility] Repository 10/13/2017 Unknown R14.0 - Abdominal BayNicola mcfarland Active [facility] distension (gaseous) Community / R14.0(ICD-10) Hospital Repository 08/19/2017 Unknown I73.9 - Peripheral ClaireRob Active [facility] vascular disease, [facility] unspecified / Hospital I73.9(ICD-10) Repository 07/22/2017 Unknown E11.65 - Type 2 Rob Claire Active [facility] diabetes mellitus [facility] with hyperglycemia / Hospital E11.65(ICD-10) Repository 07/22/2017 Unknown L97.819 - Rob Claire Active [facility] Non-pressure chronic Community ulcer of other part Hospital of right lower leg Repository with unspecified severity / L97.819(ICD-10) 07/22/2017 Unknown R60.0 - Localized Rob Claire Active [facility] edema / R60.0(ICD-10) [facility] Repository PROCEDURES PROCEDURES No Procedure Records FoundRESULTS RESULTS PARACENTESIS WITH US Observed: 07/07/2018 Status: F Source: [place] 10:09 AM [facility] REPOS[facility] Imaging Services [address] [place] [address] Paracentesis with US MR#: [id number] Acct: [id number] Name: ANITA MCCALLUM Rep #: [id number] : 1945 F 72 From: Rigo Britt MD PCP: Nicola Bay MD Status: REG CLI Study: Paracentesis with US Date of Exam: 07/07/18 Exam# [id number] Ordering Dr: Abimael Castillo MD PROCEDURE: Ultrasound [...] the peritoneal cavity was accessed with a 5-Bahraini paracentesis needle/catheter system. The trocar was removed. A total of 7150 ml of harsh-colored fluid were removed from the peritoneal cavity. The catheter was removed and a sterile dressing was applied. The procedure was well tolerated. US/Paracentesis with US IMPRESSION: Ultrasound guided paracentesis. Electronically Signed: Rigo Britt MD at 13:34 EST Tel [phone], Service support , CC: Nicola Bay MD; Abimael Castillo Conveyor Mechanic: Signed PARACENTESIS WITH US Observed: 06/30/2018 Status: F Source: [place] 9:55 AM [facility] Imaging Services [address] [place] [address] Paracentesis with US MR#: [id number] Acct: [id number] Name: ANITA MCCALLUM Rep #: [id number] : 1945 F 72 From: Rigo Britt MD PCP: Nicola Bay MD Status: REG CLI Study: Paracentesis with US Date of Exam: 06/30/18 Exam# [id number] Ordering Dr: Abimael Castillo MD PROCEDURE: Ultrasound [...] the peritoneal cavity was accessed with a 5-Bahraini paracentesis needle/catheter system. The trocar was removed. A total of 6900 ml of harsh-colored fluid were removed from the peritoneal cavity. The catheter was removed and a sterile dressing was applied. The procedure was well tolerated. US/Paracentesis with US IMPRESSION: Ultrasound guided paracentesis. Electronically Signed: Rigo Britt MD at 11:28 EST Tel [phone], Service support , CC: Nicola Bay MD; Abimael Castillo Conveyor Mechanic: Signed BASIC METABOLIC Collected: 06/29/2018 Status: F Source: [place] PROFILE (BMP) 1:10 PM [facility] RE[facility] TYPE CODE TESTS RESULT OUT OF [...] GAP 8 Performed By: #### L500.2500 #### [facility] [address] [place], [address] PROTHROMBIN TIME W/INR Collected: 06/29/2018 Status: F Source: [place] 1:10 PM [facility] REPOS[facility]ORY TYPE CODE TESTS RESULT OUT OF RANGE REFERENCE UNITS LAB L300.4150 11.7-14.9 SECONDS Normal PROTIME 13.2 LAB L300.4200 Normal INR 1.0 Performed By: #### L300.3900, L300.4310 #### [facility] [address] [place], [address] PARTIAL THROMBOPLAST Collected: 06/29/2018 Status: F Source: [place] TIME 1:10 PM [facility] REPOS[facility] TYPE CODE TESTS RESULT OUT OF RANGE REFERENCE UNITS LAB L300.4310 24.1-36.2 Seconds Normal PTT 31.9 Performed By: #### L300.3900, L300.4310 #### [facility] [address] [place], [address] PARACENTESIS WITH US Observed: 06/23/2018 Status: F Source: [place] 10:11 AM [facility] Imaging Services [address] [place] [address] Paracentesis with US MR#: [id number] Acct: [id number] Name: ANITA MCCALLUM Rep #: [id number] : 1945 F 72 From: Rigo Britt MD PCP: Nicola Bay MD Status: REG CLI Study: Paracentesis with US Date of Exam: 06/23/18 Exam# [id number] Ordering Dr: Abimael Castillo MD PROCEDURE: Ultrasound [...] the peritoneal cavity was accessed with a 5-Bahraini paracentesis needle/catheter system. The trocar was removed. A total of 3550 ml of harsh-colored fluid were removed from the peritoneal cavity. The catheter was removed and a sterile dressing was applied. The procedure was well tolerated. US/Paracentesis with US IMPRESSION: Ultrasound guided paracentesis. Electronically Signed: Rigo Britt MD at 12:45 EST Tel [phone], Service support , CC: Nicola Bay MD; Abimael Castillo Conveyor Mechanic: Signed PARACENTESIS WITH US Observed: 06/16/2018 Status: F Source: [place] 10:19 AM [facility] RE[facility] Imaging Services [address] [place] [address] Paracentesis with US MR#: [id number] Acct: [id number] Name: ANITA MCCALLUM Rep #: [id number] : 1945 F 72 From: Danish Gao MD PCP: Nicola Bay MD Status: [facility] CL Study: Paracentesis with US Date of Exam: 06/16/18 Exam# [id number] Ordering Dr: Abimael Castillo MD PROCEDURE: ULTRASOUND GUIDED PARACENTESIS CLINICAL HISTORY: Female, 72 years old. CONSENT: Time-Out Called: Yes. Consent form signed: Yes. PT-PTT Levels Checked: Yes. SEDATION: no TECHNIQUE: FINDINGS: Following proper aseptic preparation and local anesthesia, 5 Bahraini catheter was inserted in the right side of the abdomen. 3410 ml of pale clear yellow fluid were aspirated. The patient tolerated the procedure well. Electronically Signed: Danish Gao, at 15:40 EST Tel , Service support , US/Paracentesis with US CC: Nicola Bay MD; Abimael Castillo Conveyor Mechanic: Signed PARACENTESIS WITH US Observed: 06/09/2018 Status: F Source: [place] 11:06 AM [facility] Imaging Services [address] [place] [address] Paracentesis with US MR#: [id number] Acct: [id number] Name: ANITA MCCALLUM Rep #: [id number] : 1945 F 72 From: Rigo Britt MD PCP: Nicola Bay MD Status: REG CLI Study: Paracentesis with US Date of Exam: 06/09/18 Exam# [id number] Ordering Dr: Abimael Castillo MD PROCEDURE: Ultrasound [...] the peritoneal cavity was accessed with a 5-Bahraini paracentesis needle/catheter system. The trocar was removed. A total of 4650 ml of harsh-colored fluid were removed from the peritoneal cavity. The catheter was removed and a sterile dressing was applied. The procedure was well tolerated. US/Paracentesis with US IMPRESSION: Ultrasound guided paracentesis. Electronically Signed: Rigo Britt MD at 13:55 EST Tel [phone], Service support , CC: Nicola Bay MD; Abimael Castillo Conveyor Mechanic: Signed ECHO, COMPLETE W/ Observed: 06/06/2018 Status: F Source: [place] CONTRAST 4:49 PM [facility] RE[facility] Cardiovascular Services [address] [place] [address] Echo Complete W/ Contrast 06/06/18 1408 MR#: [id number] Acct: [id number] Name: ANITA MCCALLUM Rep #: [id number] : 1945 72 From: Americo Gomez MD Attending Dr: Nicola Bay MD Status: REG CLI Ordering Dr: Nicola Bay MD Date: 06/06/18 Location: [facility] Sex: F C Admitted: Reason For [...] Date Dictated: 06/06/18 1408 Date Transcribed: 06/06/181648 Conveyor Mechanic: Signed PARACENTESIS WITH US Observed: 06/02/2018 Status: F Source: [place] 10:27 AM [facility] RE[facility] [facility] [address] [place] [address] Paracentesis with US MR#: [id number] Acct: [id number] Name: ANITA MCCALLUM Rep #: [id number] : 1945 F 72 From: Rigo Britt MD PCP: Nicola Bay MD Status: REG CLI Study: Paracentesis with US Date of Exam: 06/02/18 Exam# [id number] Ordering Dr: Abimael Castillo MD PROCEDURE: Ultrasound [...] the peritoneal cavity was accessed with a 5-Bahraini paracentesis needle/catheter system. The trocar was removed. A total of 2450 ml of harsh-colored fluid were removed from the peritoneal cavity. The catheter was removed and a sterile dressing was applied. The procedure was well tolerated. US/Paracentesis with US IMPRESSION: Ultrasound guided paracentesis. Electronically Signed: Rigo Britt MD at 14:06 EST Tel [phone], Service support , CC: Nicola Bay MD; Abimael Castillo Conveyor Mechanic: Signed PARACENTESIS WITH US Observed: 05/27/2018 Status: F Source: [place] 10:25 AM [facility] REPOSITORY [facility] [address] [place] [address] Paracentesis with US MR#: [id number] Acct: [id number] Name: ANITA MCCALLUM Rep #: [id number] : 1945 F 72 From: Rigo Britt MD PCP: Nicola Bay MD Status: REG CLI Study: Paracentesis with US Date of Exam: 05/27/18 Exam# [id number] Ordering Dr: Abimael Castillo MD PROCEDURE: Ultrasound [...] the peritoneal cavity was accessed with a 5-Bahraini paracentesis needle/catheter system. The trocar was removed. A total of 4500 ml of harsh-colored fluid were removed from the peritoneal cavity. The catheter was removed and a sterile dressing was applied. The procedure was well tolerated. US/Paracentesis with US IMPRESSION: Ultrasound guided paracentesis. Electronically Signed: Rigo Britt MD at 12:17 EST Tel [phone], Service support , CC: Nicola Bay MD; Abimael Castillo Conveyor Mechanic: Signed PROTHROMBIN TIME W/INR Collected: 05/25/2018 Status: F Source: [place] 12:26 PM [facility] RE[facility]ORY Order Comment: WANTS THE PT PTT WANTS THE [facility] LIPID TSH A1C TYPE CODE TESTS RESULT OUT OF RANGE REFERENCE UNITS LAB L300.4150 11.7-14.9 SECONDS Normal PROTIME 14.4 LAB L300.4200 Normal INR 1.1 Performed By: #### L300.3900, L300.4310 #### [facility] [address] [place], [place], [id number] PARTIAL THROMBOPLAST Collected: 05/25/2018 Status: F Source: [place] TIME 12:26 PM [facility] REPOS[facility] Order Comment: WANTS THE PT PTT WANTS THE [facility] LIPID TSH A1C TYPE CODE TESTS RESULT OUT OF RANGE REFERENCE UNITS LAB L300.4310 24.1-36.2 Seconds Normal PTT 28.2 Performed By: #### L300.3900, L300.4310 #### [facility] [address] [facility]. [place], [place], [address] URINALYSIS, COMPLETE Collected: 05/25/2018 Status: F Source: [place] 12:21 PM [facility] RE[facility] Order Comment: WANTS THE PT PTT WANTS THE [facility] LIPID TSH A1C How was Urine Obtained? SENIOR MARKETING SPECIALIST TO SPECIFY TYPE CODE TESTS RESULT OUT [...] #### L400.0001, L501.9985, L500.4050, L500.4100, L501.9520 #### [facility] [address] [place], [place], [id number] HEMOGLOBIN A1C Collected: 05/25/2018 Status: F Source: [place] 12:21 PM [facility] RE[facility] Order Comment: DR.JABOUR DE LA GARZA THE PT PTT WANTS THE [facility] CMP LIPID TSH A1C TYPE CODE TESTS RESULT OUT OF RANGE REFERENCE UNITS LAB L501.9985 4.2-6.3 % High HGB A1C 10.3 Performed By: #### L400.0001, L501.9985, L500.4050, L500.4100, L501.9520 #### [facility] [address] [place], [place], [address] COMPREHENSIVE METABOLIC Collected: 05/25/2018 Status: F Source: [facility] 12:21 PM [facility] Order Comment: DR.JABOUR WANTS THE PT PTT WANTS THE [facility] CMP LIPID TSH A1C TYPE CODE TESTS [...] #### L400.0001, L501.9985, L500.4050, L500.4100, L501.9520 #### [facility] [address] [place], [place], [id number] LIPID PROFILE Collected: 05/25/2018 Status: F Source: [place] 12:21 PM [facility] Order Comment: WANTS THE PT PTT WANTS THE [facility] LIPID TSH A1C TYPE CODE TESTS [...] #### L400.0001, L501.9985, L500.4050, L500.4100, L501.9520 #### [facility] [address] [facility]. [place], [place], [address] THYROID STIM HORMONE Collected: 05/25/2018 Status: F Source: [place] (TSH) 12:21 PM [facility] Order Comment: WANTS THE PT PTT WANTS THE [facility] LIPID TSH A1C TYPE CODE TESTS RESULT OUT OF RANGE REFERENCE UNITS LAB L501.9520 0.358-3.74 uIU/mL Normal TSH 2.39 Performed By: #### L400.0001, L501.9985, L500.4050, L500.4100, L501.9520 #### [facility] [address] [place], [address] PARACENTESIS WITH US Observed: 05/19/2018 Status: F Source: [place] 10:27 AM [facility] [address] [place] [address] Paracentesis with US MR#: [id number] Acct: [id number] Name: ANITA MCCALLUM Rep #: [id number] : 1945 F 72 From: Rigo Britt MD PCP: Nicola Bay MD Status: REG CLI Study: Paracentesis with US Date of Exam: 05/19/18 Exam# [id number] Ordering Dr: Abimael Castillo MD PROCEDURE: Ultrasound [...] the peritoneal cavity was accessed with a 5-Bahraini paracentesis needle/catheter system. The trocar was removed. A total of 6500 ml of harsh-colored fluid were removed from the peritoneal cavity. The catheter was removed and a sterile dressing was applied. The procedure was well tolerated. US/Paracentesis with US IMPRESSION: Ultrasound guided paracentesis. Electronically Signed: Rigo Britt MD at 12:13 EST Tel [phone], Service support , CC: Nicola Bay MD; Abimael Castillo Conveyor Mechanic: Signed PARACENTESIS WITH US Observed: 05/11/2018 Status: F Source: [place] 10:23 AM [facility] [address] [place] [address] Paracentesis with US MR#: [id number] Acct: [id number] Name: ANITA MCCALLUM Rep #: [id number] : 1945 F 72 From: Rigo Britt MD PCP: Nicola Bay MD Status: REG CLI Study: Paracentesis with US Date of Exam: 05/11/18 Exam# [id number] Ordering Dr: Abimael Castillo MD PROCEDURE: Ultrasound [...] the peritoneal cavity was accessed with a 5-Bahraini paracentesis needle/catheter system. The trocar was removed. A total of 6800 ml of harsh-colored fluid were removed from the peritoneal cavity. The catheter was removed and a sterile dressing was applied. The procedure was well tolerated. US/Paracentesis with US IMPRESSION: Ultrasound guided paracentesis. Electronically Signed: Rigo Britt MD at 12:32 EST Tel [phone], Service support , CC: Nicola Bay MD; Abimael Castillo Conveyor Mechanic: Signed PARACENTESIS WITH US Observed: 05/05/2018 Status: F Source: [place] 12:18 PM [facility] REPOSITORY [facility] Imaging Services [address] [place] [address] Paracentesis with US MR#: [id number] Acct: [id number] Name: ANITA MCCALLUM Rep #: [id number] : 1945 F 72 From: Rigo Britt MD PCP: Nicola Bay MD Status: REG CLI Study: Paracentesis with US Date of Exam: 05/05/18 Exam# [id number] Ordering Dr: Abimael Castillo MD PROCEDURE: Ultrasound [...] the peritoneal cavity was accessed with a 5-Bahraini paracentesis needle/catheter system. The trocar was removed. A total of 6100 ml of harsh-colored fluid were removed from the peritoneal cavity. The catheter was removed and a sterile dressing was applied. The procedure was well tolerated. US/Paracentesis with US IMPRESSION: Ultrasound guided paracentesis. Electronically Signed: Rigo Britt MD at 14:05 EST Tel [phone], Service support , CC: Nicola Bay MD; Abimael Castillo Conveyor Mechanic: Signed PARACENTESIS WITH US Observed: 04/28/2018 Status: F Source: [place] 9:16 AM [facility] [address] [place] [address] Paracentesis with US MR#: [id number] Acct: [id number] Name: ANITA MCCALLUM Rep #: [id number] : 1945 F 72 From: Rigo Britt MD PCP: Nicola Bay MD Status: REG CLI Study: Paracentesis with US Date of Exam: 04/28/18 Exam# [id number] Ordering Dr: Abimael Castillo MD PROCEDURE: Ultrasound [...] the peritoneal cavity was accessed with a 5-Bahraini paracentesis needle/catheter system. The trocar was removed. A total of 6000 ml of harsh-colored fluid were removed from the peritoneal cavity. The catheter was removed and a sterile dressing was applied. The procedure was well tolerated. US/Paracentesis with US IMPRESSION: Ultrasound guided paracentesis. Electronically Signed: Rigo Britt MD at 11:12 EST Tel [phone], Service support , CC: Nicola Bay MD; Abimael Castillo Conveyor Mechanic: Signed BASIC METABOLIC Collected: 04/27/2018 Status: F Source: [place] PROFILE (BMP) 12:18 PM [facility] RE[facility] TYPE CODE TESTS RESULT OUT OF [...] GAP 6 Performed By: #### L500.2500 #### [facility] [address] [place], [place], [address] PROTHROMBIN TIME W/INR Collected: 04/27/2018 Status: F Source: [place] 12:18 PM [facility] TYPE CODE TESTS RESULT OUT OF RANGE REFERENCE UNITS LAB L300.4150 11.7-14.9 SECONDS Normal PROTIME 13.5 LAB L300.4200 Normal INR 1.0 Performed By: #### L300.3900, L300.4310 #### [facility] [address] [place], [address] PARTIAL THROMBOPLAST Collected: 04/27/2018 Status: F Source: [place] TIME 12:18 PM [facility] TYPE CODE TESTS RESULT OUT OF RANGE REFERENCE UNITS LAB L300.4310 24.1-36.2 Seconds Normal PTT 29.2 Performed By: #### L300.3900, L300.4310 #### [facility] [address] [place], [address] PARACENTESIS WITH US Observed: 04/21/2018 Status: F Source: [place] 12:17 PM [facility] REPOSITORY [facility] [address] [place] [address] Paracentesis with US MR#: [id number] Acct: [id number] Name: ANITA MCCALLUM Rep #: [id number] : 1945 F 72 From: Rigo Britt MD PCP: Nicola Bay MD Status: REG CLI Study: Paracentesis with US Date of Exam: 04/21/18 Exam# [id number] Ordering Dr: Abimael Castillo MD PROCEDURE: Ultrasound [...] the peritoneal cavity was accessed with a 5-Bahraini paracentesis needle/catheter system. The trocar was removed. A total of 7500 ml of harsh-colored fluid were removed from the peritoneal cavity. The catheter was removed and a sterile dressing was applied. The procedure was well tolerated. US/Paracentesis with US IMPRESSION: Ultrasound guided paracentesis. Electronically Signed: Rigo Britt MD at 13:46 EDT Tel [phone], Service support , CC: Nicola Bay MD; Abimael Castillo Conveyor Mechanic: Signed PARACENTESIS WITH US Observed: 04/12/2018 Status: F Source: [place] 9:23 AM [facility] RE[facility] Imaging [facility] [address] [place] [address] Paracentesis with US MR#: [id number] Acct: [id number] Name: ANITA MCCALLUM Rep #: [id number] : 1945 F 72 From: Rigo Britt MD PCP: Nicola Bay MD Status: REG CLI Study: Paracentesis with US Date of Exam: 04/12/18 Exam# [id number] Ordering Dr: Abimael Castillo MD PROCEDURE: Ultrasound [...] the peritoneal cavity was accessed with a 5-Bahraini paracentesis needle/catheter system. The trocar was removed. A total of 7000 ml of harsh-colored fluid were removed from the peritoneal cavity. The catheter was removed and a sterile dressing was applied. The procedure was well tolerated. US/Paracentesis with US IMPRESSION: Ultrasound guided paracentesis. Electronically Signed: Rigo Britt MD at 11:19 EDT Tel [phone], Service support , CC: Nicola Bay MD; Abimael Castillo Conveyor Mechanic: Signed PARACENTESIS WITH US Observed: 03/31/2018 Status: F Source: [place] 10:23 AM [facility] RE[facility]ITORY [facility] Imaging [facility] [address] [place] [address] Paracentesis with US MR#: [id number] Acct: [id number] Name: ANITA MCCALLUM Rep #: [id number] : 1945 F 72 From: Eladio Bazan MD PCP: Nicola Bay MD Status: REG CLI Study: Paracentesis with US Date of Exam: 03/31/18 Exam# [id number] Ordering Dr: Abimael Castillo MD PROCEDURE: ULTRASOUND [...] 10 mL of lidocaine 1% a 5 Bahraini drainage catheter is introduced in the right [...] , CC: Nicola Bay MD; Abimael Castillo Conveyor Mechanic: Signed PARACENTESIS WITH US Observed: 03/24/2018 Status: F Source: [place] 10:13 AM [facility] REPOSITORY [facility] Imaging Services [address] [place] [address] Paracentesis with US MR#: [id number] Acct: [id number] Name: ANITA MCCALLUM Rep #: [id number] : 1945 F 72 From: Samra Martinez MD PCP: Nicola Bay MD Status: REG CLI Study: Paracentesis with US Date of Exam: 03/24/18 Exam# [id number] Ordering Dr: Abimael Castillo MD PROCEDURE: ULTRASOUND [...] 10 mL of lidocaine 1% a 5 Bahraini drainage catheter is introduced in the lower [...] , CC: Nicola Bay MD; Abimael Castillo Conveyor Mechanic: Signed PROTHROMBIN TIME W/INR Collected: 03/23/2018 Status: F Source: [place] 12:18 PM [facility] REPOS[facility] Order Comment: DR CASTILLO GETS PT, PTT, AND BMP DR HERCULES GETS RENAL TYPE CODE TESTS RESULT OUT OF RANGE REFERENCE UNITS LAB L300.4150 11.7-14.9 SECONDS Normal PROTIME 13.9 LAB L300.4200 Normal INR 1.1 Performed By: #### L300.3900, L300.4310 #### [facility] [address] [facility]. [place], [place], [address] PARTIAL THROMBOPLAST Collected: 03/23/2018 Status: F Source: [place] TIME 12:18 PM [facility] RE[facility] Order Comment: DR CASTILLO GETS PT, PTT, AND BMP DR HERCULES GETS RENAL TYPE CODE TESTS RESULT OUT OF RANGE REFERENCE UNITS LAB L300.4310 24.1-36.2 Seconds Normal PTT 27.6 Performed By: #### L300.3900, L300.4310 #### [facility] [address] [facility]. [place], [place], [address] RENAL PROFILE Collected: 03/23/2018 Status: F Source: [place] 12:18 PM [facility] Order Comment: DR CASTILLO GETS PT, [...] CO2 24.0 Performed By: #### L500.3600 #### [facility] [address] [facility] [place], [address] PARACENTESIS WITH US Observed: 03/17/2018 Status: F Source: [place] 10:21 AM [facility] RE[facility]ITORY [facility] Imaging Services [address] [place] [address] Paracentesis with US MR#: [id number] Acct: [id number] Name: ANITA MCCALLUM Rep #: [id number] : 1945 F 72 From: Rigo Britt MD PCP: Nicola Bay MD Status: REG CLI Study: Paracentesis with US Date of Exam: 03/17/18 Exam# [id number] Ordering Dr: Abimael Castillo MD PROCEDURE: Ultrasound [...] the peritoneal cavity was accessed with a 5-Bahraini paracentesis needle/catheter system. The trocar was removed. A total of 4700 ml of harsh-colored fluid were removed from the peritoneal cavity. The catheter was removed and a sterile dressing was applied. The procedure was well tolerated. US/Paracentesis with US IMPRESSION: Ultrasound guided paracentesis. Electronically Signed: Rigo Britt MD at 11:19 EDT Tel [phone], Service support , CC: Nicola Bay MD; Abimael Castillo Conveyor Mechanic: Signed PARACENTESIS WITH US Observed: 03/10/2018 Status: F Source: [place] 12:24 PM [facility] RE[facility]ITORY [facility] Imaging Services [address] [place] [address] Paracentesis with US MR#: [id number] Acct: [id number] Name: ANITA MCCALLUM Rep #: [id number] : 1945 F 72 From: Rigo Britt MD PCP: Nicola Bay MD Status: REG CLI Study: Paracentesis with US Date of Exam: 03/10/18 Exam# [id number] Ordering Dr: Abimael Castillo MD PROCEDURE: Ultrasound [...] the peritoneal cavity was accessed with a 5-Bahraini paracentesis needle/catheter system. The trocar was removed. A total of 4300 ml of harsh-colored fluid were removed from the peritoneal cavity. The catheter was removed and a sterile dressing was applied. The procedure was well tolerated. US/Paracentesis with US IMPRESSION: Ultrasound guided paracentesis. Electronically Signed: Rigo Britt MD at 13:57 EDT Tel [phone], Service support , CC: Nicola Bay MD; Abimael Castillo Conveyor Mechanic: Signed PROGRESS Observed: 03/08/2018 Status: COMPLETED Source: [place] 10:25 AM [facility] REPOSITORY HNO ID: [id number] Author: Nicola Price Service: (none) Author Type: [...] bone metastases. She didn't recall seeing a desktop support engineer in 2009. She denied musculoskeletal pain but [...] No spider angiomas. No palmar erythema. 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.818) Pancytopenia [...] DO CNOVSP Observed: 03/08/2018 Status: COMPLETED Source: [place] 10:10 AM [facility] REPOSITORY Visit (SP) Office (MAHNAZ) ANITA MCCALLUM ([id number]) 1945 F Date Time Provider Department 03/08/18 [...] bone metastases. She didn't recall seeing a desktop support engineer in 2009. She denied musculoskeletal pain but [...] No spider angiomas. No palmar erythema. 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.818) Pancytopenia [...] Nicola Price DO Referring Provider: NICOLA PRICE [[id number]] Allergies As of Date: 03/08/2018 Noted Allergy [...] WITH US Observed: 03/03/2018 Status: F Source: [place] 12:22 PM [facility] RE[facility]ITORY [facility] Imaging Services [address] [place] [address] Paracentesis with US MR#: [id number] Acct: [id number] Name: ANITA MCCALLUM Rep #: [id number] : 1945 F 72 From: Rigo Britt MD PCP: Nicola Bay MD Status: REG CLI Study: Paracentesis with US Date of Exam: 03/03/18 Exam# [id number] Ordering Dr: Abimael Castillo MD PROCEDURE: Ultrasound [...] the peritoneal cavity was accessed with a 5-Bahraini paracentesis needle/catheter system. The trocar was removed. A total of 4350 ml of harsh-colored fluid were removed from the peritoneal cavity. The catheter was removed and a sterile dressing was applied. The procedure was well tolerated. US/Paracentesis with US IMPRESSION: Ultrasound guided paracentesis. Electronically Signed: Rigo Britt MD at 15:51 EDT Tel [phone], Service support , CC: Nicola Bay MD; Abimael Castillo Conveyor Mechanic: Signed [facility] ABS GR + CBC Collected: 03/01/2018 Status: F Source: [place] 1:01 PM [facility] TYPE CODE TESTS RESULT OUT OF REFERENCE UNITS RANGE LAB WWBC 3.70-11.00 k/uL Low [facility] WBC 2.85 LAB WRBC 3.90-5.20 m/uL Low [facility] RBC 3.22 LAB WHGB 11.5-15.5 g/dL Low [place] Hemoglobin 10.1 LAB WHCT 36.0-46.0 % Low [facility] Hematocrit 30.5 LAB WMCV 80.0-100.0 fL [facility] MCV 94.7 LAB WMCH 26.0-34.0 pg [place] MCH 31.4 LAB WMCHC 30.5-36.0 g/dL [place] MCHC 33.1 LAB WRDW 11.5-15.0 % [facility] RDW 14.1 LAB WPLT 150-400 k/uL Low [facility] Platelet Cnt 68 LAB WMPV 9.0-12.7 fL [facility] MPV 10.5 Result Comment: Test performed at: [facility], [address] [place] [address]. LAB ABGRAN 1.45-7.50 k/uL Absol Gran 2.10 Count COMP METABOLIC PANEL Collected: 03/01/2018 Status: F Source: [place] 12:59 PM [facility] REPOSITORY TYPE CODE TESTS RESULT OUT OF REFERENCE UNITS RANGE LAB TP 6.3-8.0 g/dL Test sent to [facility]. Result Comment: Account Credited [facility] ALB 3.9-4.9 g/dL Test Albumin sent to [facility]. Result Comment: [facility]redited [facility] CA 8.5-10.2 mg/dL Test Calcium, Total sent to [facility]. Result Comment: [facility] Credited [facility] TBIL 0.2-1.3 mg/dL Bilirubin, Test Total sent to [facility]. Result Comment: [facility] ALKP 32-117 U/L Alkaline Test Phosphatase sent to [facility]. Result Comment: [facility]redited [facility] AST 13-35 U/L Test sent AST to [facility]. Result Comment: [facility]redited [facility] GLU 74-99 mg/dL Test sent Glucose to [facility]. Result Comment: [facility] BUN 7-21 mg/dL Test sent BUN to [facility]. Result Comment: [facility]redited [facility] CRET 0.58-0.96 mg/dL Creatinine Test sent to [facility]. Result Comment: [facility] NA 136-144 mmol/L Test Sodium sent to [facility]. Result Comment: [facility] K 3.7-5.1 mmol/L Test Potassium sent to [facility]. Result Comment: [facility] CL 97-105 mmol/L Test Chloride sent to [facility]. Result Comment: [facility] CO2 22-30 mmol/L Test sent CO2 to [facility]. Result Comment: [facility]redited [facility] AGAP 9-18 mmol/L Test sent Anion Gap to [facility]. Result Comment: [facility]redited [facility] ALT 7-38 U/L Test sent to ALT [facility]. Result Comment: Account Credited [facility] GFRAA eGFR- Amer. Test sent to [facility]. Result Comment: Account Credited [facility] GFRNAA . eGFR-All Test sent Other Races to [facility]. Result Comment: Account Credited [facility] GFRPED eGFR-Ped. Test sent Factor to [facility]. Result Comment: Account Credited [facility] FERRITIN Collected: 03/01/2018 Status: F Source: [place] 12:59 PM [facility] REPOSITORY TYPE CODE TESTS RESULT OUT OF REFERENCE UNITS RANGE LAB FERR 14.7-205.1 ng/mL Test Ferritin sent to [facility]. Result Comment: Account Credited [facility] IRON AND TIBC Collected: 03/01/2018 Status: F Source: [place] 12:59 PM [facility] REPOSITORY TYPE CODE TESTS RESULT OUT OF REFERENCE UNITS RANGE LAB IRN 41-186 ug/dL Test Iron sent to [facility]. Result Comment: Account Credited [facility] TIBC 232-386 ug/dL Test sent TIBC to [facility]. Result Comment: Account Credited [facility] SAT 15-57 % Transferrin Test sent Saturatn to [facility]. Result Comment: Account Credited [facility] COMPREHENSIVE METABOLIC Collected: 03/01/2018 Status: F Source: [facility] 12:59 PM [facility] RE[facility]ITORY TYPE CODE TESTS RESULT OUT OF [...] By: #### L500.4050, L503.6075, L503.6150, L503.6550 #### [facility] [address] [facility]. [place], [place], [address] IRON BINDING Collected: 03/01/2018 Status: F Source: [facility] 12:59 PM [facility] REPOSITORY TYPE CODE TESTS RESULT OUT OF RANGE REFERENCE UNITS LAB L503.6075 250-450 ug/dL Normal TIBC 264 Performed By: #### L500.4050, L503.6075, L503.6150, L503.6550 #### [facility] [address] [place], [place], [address] IRON Collected: 03/01/2018 Status: F Source: [place] 12:59 PM [facility] REPOSITORY TYPE CODE TESTS RESULT OUT OF RANGE REFERENCE UNITS LAB L503.6150 50-170 ug/dL Normal IRON 92 Performed By: #### L500.4050, L503.6075, L503.6150, L503.6550 #### [facility] [address] [place], [place], [address] FERRITIN Collected: 03/01/2018 Status: F Source: [place] 12:59 PM [facility] REPOSITORY TYPE CODE TESTS RESULT OUT OF REFERENCE UNITS RANGE LAB L503.6550 8-252 ng/mL High FERRITIN 303 Performed By: #### L500.4050, L503.6075, L503.6150, L503.6550 #### [facility] [address] [place], [address] PARACENTESIS WITH US Observed: 02/24/2018 Status: F Source: [place] 10:21 AM [facility] REPOSITORY [facility] Imaging Services [address] [place] [address] Paracentesis with US MR#: [id number] Acct: [id number] Name: ANITA MCCALLUM Rep #: [id number] : 1945 F 72 From: Rigo Britt MD PCP: Nicola Bay MD Status: REG CLI Study: Paracentesis with US Date of Exam: 02/24/18 Exam# [id number] Ordering Dr: Abimael Castillo MD PROCEDURE: Ultrasound [...] the peritoneal cavity was accessed with a 5-Bahraini paracentesis needle/catheter system. The trocar was removed. A total of 5350 ml of harsh-colored fluid were removed from the peritoneal cavity. The catheter was removed and a sterile dressing was applied. The procedure was well tolerated. US/Paracentesis with US IMPRESSION: Ultrasound guided paracentesis. Electronically Signed: Rigo Britt MD at 14:37 EDT Tel [phone], Service support , CC: Nicola Bya MD; Abimael Castillo Conveyor Mechanic: Signed PROTHROMBIN TIME W/INR Collected: 02/22/2018 Status: F Source: [place] 12:48 PM [facility] REPOSITORY TYPE CODE TESTS RESULT OUT OF RANGE REFERENCE UNITS LAB L300.4150 11.7-14.9 SECONDS Normal PROTIME 13.7 LAB L300.4200 Normal INR 1.1 Performed By: #### L300.3900, L300.4310 #### [facility] [address] [place], [address] PARTIAL THROMBOPLAST Collected: 02/22/2018 Status: F Source: [place] TIME 12:48 PM [facility] REPOS[facility]ORY TYPE CODE TESTS RESULT OUT OF RANGE REFERENCE UNITS LAB L300.4310 24.1-36.2 Seconds Normal PTT 29.1 Performed By: #### L300.3900, L300.4310 #### [facility] [address] [place], [address] PARACENTESIS WITH US Observed: 02/17/2018 Status: F Source: [place] 10:16 AM [facility] REPOSITORY [facility] Imaging Services [address] [place] [address] Paracentesis with US MR#: [id number] Acct: [id number] Name: ANITA MCCALLUM Rep #: [id number] : 1945 F 72 From: Rigo Britt MD PCP: Nicola Bay MD Status: REG CLI Study: Paracentesis with US Date of Exam: 02/17/18 Exam# [id number] Ordering Dr: Abimael Castillo MD PROCEDURE: Ultrasound [...] the peritoneal cavity was accessed with a 5-Bahraini paracentesis needle/catheter system. The trocar was removed. A total of 6800 ml of harsh-colored fluid were removed from the peritoneal cavity. The catheter was removed and a sterile dressing was applied. The procedure was well tolerated. US/Paracentesis with US IMPRESSION: Ultrasound guided paracentesis. Electronically Signed: Rigo Britt MD at 12:46 EDT Tel [phone], Service support , CC: Nicola Bay MD; Abimael Castillo Conveyor Mechanic: Signed PARACENTESIS WITH US Observed: 02/10/2018 Status: F Source: [place] 10:17 AM [facility] Imaging Services [address] [place] [address] Paracentesis with US MR#: [id number] Acct: [id number] Name: XENAANITA K Rep #: [id number] : 1945 F 72 From: Rigo Britt MD PCP: Nicola Bay MD Status: REG CLI Study: Paracentesis with US Date of Exam: 02/10/18 Exam# [id number] Ordering Dr: Abimael Castillo MD PROCEDURE: Ultrasound [...] the peritoneal cavity was accessed with a 5-Bahraini paracentesis needle/catheter system. The trocar was removed. A total of 2700 ml of harsh-colored fluid were removed from the peritoneal cavity. The catheter was removed and a sterile dressing was applied. The procedure was well tolerated. US/Paracentesis with US IMPRESSION: Ultrasound guided paracentesis. Electronically Signed: Rigo Britt MD at 11:19 EDT Tel [phone], Service support , CC: Nicola Bay MD; Abimael Castillo Conveyor Mechanic: Signed PARACENTESIS WITH US Observed: 02/03/2018 Status: F Source: [place] 12:22 PM [facility] REPOSITORY [facility] Imaging Services [address] [place] [address] Paracentesis with US MR#: [id number] Acct: [id number] Name: XENAANITA Jelani Rep #: [id number] : 1945 F 72 From: Rigo Britt MD PCP: Nicola Bay MD Status: REG CLI Study: Paracentesis with US Date of Exam: 02/03/18 Exam# [id number] Ordering Dr: Abimael Castillo MD PROCEDURE: Ultrasound [...] the peritoneal cavity was accessed with a 5-Bahraini paracentesis needle/catheter system. The trocar was removed. A total of 5600 ml of harsh-colored fluid were removed from the peritoneal cavity. The catheter was removed and a sterile dressing was applied. The procedure was well tolerated. US/Paracentesis with US IMPRESSION: Ultrasound guided paracentesis. Electronically Signed: Rigo Britt MD at 13:57 EDT Tel [phone], Service support , CC: Nicola Bay MD; Abimael Castillo Conveyor Mechanic: Signed 12 LEAD ELECTROCARDIOGRAM Observed: 01/31/2018 Status: F Source: [place] 3:21 PM [facility] REPOSITORY [facility] Cardiovascular Services [address] [place] [address] 12 Lead EKG 01/22/18 1110 MR#: [id number] Acct: [id number] Name: ANITA MCCALLUM Rep #: [id number] : 1945 72 From: Americo Gomez MD [...] ECG Confirmed by JASON SHAW, AMERICO ([id number]), editor city MARLEY ASHFORD ([id number]) on 01/31/2018 3:20:55 PM Referred By: SANTI Confirmed By:AMERICO GOMEZ MD 01/31/18 1521 Date Americo Gomez MD CC: Jose Ellis MD; Becky Wharton MD; Nicola Bay MD Signed PARACENTESIS WITH US Observed: 01/27/2018 Status: F Source: [place] 10:12 AM [facility] REPOSITORY [facility] Imaging Services [address] [place] [address] Paracentesis with US MR#: [id number] Acct: [id number] Name: ANITA MCCALLUM Rep #: [id number] : 1945 F 72 From: Eladio Bazan MD PCP: Nicola Bay MD Status: REG CLI Study: Paracentesis with US Date of Exam: 01/27/18 Exam# [id number] Ordering Dr: Abimael Castillo MD PROCEDURE: ULTRASOUND [...] the peritoneal cavity was accessed with a 5-Bahraini paracentesis needle/catheter system. The trocar was removed. [...] , CC: Nicola Bay MD; Abimael Castillo Conveyor Mechanic: Signed BASIC METABOLIC Collected: 01/26/2018 Status: F Source: [place] PROFILE (BMP) 4:43 PM [facility] REPOSITORY TYPE CODE TESTS RESULT OUT OF [...] 9 GAP Performed By: #### L500.2500 #### [facility] [address] [address], [address] K Collected: 01/24/2018 Status: F Source: [facility] 8:49 AM [facility] REPOSITORY TYPE CODE TESTS RESULT OUT OF REFERENCE UNITS RANGE LAB K(LOINC) 3.5-5.1 mmol/L Potassium Level 4.6 Performed By: #### K #### [facility] [address] [place] [address] DISCHARGE SUMMARY Observed: 01/23/2018 Status: F Source: [place] 5:08 PM [facility] REPOSITORY [facility] Medical Records Department [address] [place] [address] Discharge Summary 01/23/18 1055 MR#: [id number] Acct: [id number] Name: ANITA MCCALLUM Rep #: [id number] : 1945 72 From: Becky Wharton MD PCP: Nicola Bay MD Status: DIS IN Y Location: [place] [address] Discharge Date and Diagnosis Date of Admission: [...] as per preferred to follow-up with a electrical power station technician that she has seen in [place] before. She is to call the electrical power station technician office for an appointment. Patient is to follow-up with her instructional technology teacher Dr. Castillo in [facility] she has scheduled EGD with him [...] applicable Code Visit Inpatient E AND M: 75021 Disch Hosp 01/23/18 1708 <Electronically signed by Becky Wharton MD> Date Becky Wharton MD Cosigner Signature (if applicable): Date CC: Becky Wharton MD; Nicola Bay MD Signed DISCHARGE INSTRUCTION Observed: 01/23/2018 Status: F Source: [place] 10:54 AM [facility] REPOSITORY [facility] Medical Records Department [address] [place] [address] Instructions for Home/Discharge Instructions 01/23/18 1043 MR#: [id number] Acct: [id number] Name: ANITA MCCALLUM Rep #: [id number] : 1945 72 From: Becky Wharton MD [...] Potassium Excess Additional Instructions: FOLLOW UP WITH SLIPPER MAKER IN [place] IN ONE WEEK TO EDUCATE ABOUT LOW [...] 01/23/2018 Status: F Source: [place] 6:53 AM [facility] REPOSITORY TYPE CODE TESTS RESULT OUT OF REFERENCE UNITS RANGE LAB L501.080 70-110 mg/dL High BEDSIDE GLU 162 Result Comment: MANAGEMENT OF PATIENT CARE PER NURSING PROTOCOL Performed By: #### L501.080 #### [facility] [place] [address] [place] [address] BASIC METABOLIC Collected: 01/23/2018 Status: F Source: [place] PROFILE (BMP) 5:55 AM [facility] REPOSITORY TYPE CODE TESTS RESULT OUT OF [...] GAP 6 Performed By: #### L500.2500 #### [facility] [address] [place], [address] CBC W/DIFF, AUTOMATED Collected: 01/23/2018 Status: F Source: [place] 5:55 AM [facility] REPOSITORY TYPE CODE TESTS RESULT OUT OF [...] COMMENT SCANNED Performed By: #### L100.0100 #### [facility] [address] [place], [address] BEDSIDE GLUCOSE Collected: 01/22/2018 Status: F Source: [place] 9:59 PM [facility] REPOSITORY TYPE CODE TESTS RESULT OUT OF REFERENCE UNITS RANGE LAB L501.080 70-110 mg/dL High BEDSIDE GLU 247 Result Comment: MANAGEMENT OF PATIENT CARE PER NURSING PROTOCOL Performed By: #### L501.080 #### [facility] Point of Care [address] [place] [address] CONSULTATION Observed: 01/22/2018 Status: F Source: [place] 6:58 PM [facility] REPOSITORY [facility] Medical Records Department [address] [place] [address] Consultation 01/22/18 1844 MR#: [id number] Acct: [id number] Name: ANITA MCCALLUM Rep #: [id number] : 1945 72 From: Alesia Hercules MD PCP: Nicola Bay MD Status: ADM IN Location: [place] [address] Problem List (1) Acute kidney injury superimposed [...] () 1,000 mls @ 75 mls/hr IV .[id number] [facility] Last Admin: 01/22/18 13:47 Dose: 75 mls/hr [...] paracentesis Avoid IV contrast No need of CANOE INSPECTOR Check renal chem in am 2- Hyperkalemia: [...] continue to follow ALESIA HERCULES MD 01/22/18 8218 <Electronically signed by Alesia Hercules MD> Date Alesia Hercules MD Cosigner Signature (if applicable): Date CC: Alesia Hercules MD; Nicola Bay MD Signed HISTORY AND PHYSICAL Observed: 01/22/2018 Status: F Source: [place] EXAM 4:42 PM [facility] REPOSITORY [facility] Medical Records Department [address] [place] [address] History and Physical 01/22/18 1153 MR#: [id number] Acct: [id number] Name: ANITA MCCALLUM Rep #: [id number] : 1945 72 From: Becky Wharton MD PCP: Nicola Bay MD Status: ADM IN Location: [place] [id number] Problem List (1) Hyperkalemia Status: Acute History [...] done was 2 days ago and her instructional technology teacher office and she states 5.5 L of [...] 32. * Decision to transfer patient to [facility] on account of lack of Kayexalate [...] Her niece will be her power of traffic law attorney. Family counseled to bring a copy of the living w1ll. [id number]-bw-[id number] time 15 minutes This note was generated with [employer] dictation software. It may contain incorrect words, spelling, and punctuation that were not noted in checking the note before signing. * Code Visit Inpatient E AND M: 23598 Subs Hosp L3 Procedures: 29677 Advncd Care Plan 30 Min 01/22/18 1642 <Electronically signed by Becky Wharton MD> Date Becky Wharton MD Cosigner Signature: Date (if applicable) CC: Becky Wharton MD; Nicola Bay MD Signed BEDSIDE GLUCOSE Collected: 01/22/2018 Status: F Source: [place] 4:37 PM [facility] REPOSITORY TYPE CODE TESTS RESULT OUT OF REFERENCE UNITS RANGE LAB L501.080 70-110 mg/dL High BEDSIDE GLU 282 Result Comment: MANAGEMENT OF PATIENT CARE PER NURSING PROTOCOL Performed By: #### L501.080 #### [facility] Point of Care [address] [facility] [place] [address] BASIC METABOLIC Collected: 01/22/2018 Status: F Source: [place] PROFILE (BMP) 3:18 PM [facility] REPOSITORY TYPE CODE TESTS RESULT OUT OF [...] GAP 8 Performed By: #### L500.2500 #### [facility] [address] [place], [address] URINE SODIUM Collected: 01/22/2018 Status: F Source: [place] 2:05 PM [facility] REPOSITORY Order Comment: Order Date: 01/22/18 TYPE CODE TESTS RESULT OUT OF RANGE REFERENCE UNITS LAB L501.5500 Not Establ. mmol/L Normal UR NA 32 Performed By: #### L501.5500 #### [facility] [address] [place], [address] CREATININE, URINE Collected: 01/22/2018 Status: F Source: [place] 2:05 PM [facility] REPOSITORY Order Comment: Order Date: 01/22/18 TYPE CODE TESTS RESULT OUT OF RANGE REFERENCE UNITS LAB L502.0300 NO RANGE EST. mg/dL Normal URINE 60.50 CREAT Performed By: #### L502.0300 #### [facility] [address] [place], [address] UREA NITROGEN, URINE Collected: 01/22/2018 Status: F Source: [place] 2:05 [facility] REPOSITORY Order Comment: Order Date: 01/22/18 TYPE CODE TESTS RESULT OUT OF RANGE REFERENCE UNITS LAB L502.0715 NO RANGE EST. mg/dL Normal URINE 810 UREA Performed By: #### L502.0715 #### [facility] [address] [place] [place], [address] URINALYSIS, COMPLETE Collected: 01/22/2018 Status: F Source: [place] 2:05 PM [facility] REPOSITORY Order Comment: Order Date: 01/22/18 How was Urine Obtained? SENIOR MARKETING SPECIALIST TO SPECIFY TYPE CODE TESTS RESULT OUT [...] 0-5 SEEN Performed By: #### L400.0001 #### [facility] [address] [facility] [place], [address] KIDNEY AND BLADDER Observed: 01/22/2018 Status: F Source: [place] 12:52 PM [facility] REPOSITORY [facility] Imaging Services [address] [place] [address] Kidney and Bladder MR#: [id number] Acct: [id number] Name: ANITA MCCALLUM Rep #: [id number] : 1945 F 72 From: Candice Patel MD PCP: Nicola Bay MD Status: ADM IN Study: Kidney and Bladder Date of Exam: 01/22/18 Exam# [id number] Ordering Dr: Becky Wharton MD STUDY: RENAL [...] CC: Becky Wharton MD; Nicola Bay MD Conveyor Mechanic: Signed EMERGENCY DEPARTMENT Observed: 01/22/2018 Status: F Source: [place] SUMMARY 11:52 AM [facility] Medical Records Department [address] [place] [address] Emergency Department Summary 01/22/18 1102 MR#: [id number] Acct: [id number] Name: ANITA MCCALLUM Rep #: [id number] : 1945 72 From: Jose Ellis MD [...] kidney injury This note was generated with [employer] dictation software. It may contain incorrect words, [...] your Primary Care Provider. Call [facility] ([phone]) or report to the closest Emergency Room. Call 911 if necessary. 01/22/18 1152 <Electronically signed by Jose Ellis MD> Date Jose Ellis MD Cosigner Signature (If Indicated): Date CC: Nicola Bay MD CBC W/DIFF, AUTOMATED Collected: 01/22/2018 Status: F Source: [place] 11:07 AM [facility] REPOSITORY TYPE CODE TESTS RESULT OUT OF [...] COMMENT SCANNED Performed By: #### L100.0100 #### [facility] [address] [place], [place], [address] BASIC METABOLIC Collected: 01/22/2018 Status: F Source: [place] PROFILE (BMP) 8:25 AM [facility] REPOSITORY TYPE CODE TESTS RESULT OUT OF [...] 5 GAP Performed By: #### L500.2500 #### [facility] [address] [place], [address] CBC W/DIFF, AUTOMATED Collected: 01/21/2018 Status: F Source: [place] 1:59 PM [facility] REPOSITORY TYPE CODE TESTS RESULT OUT OF [...] LYMPHOPENIA NOTED Performed By: #### L100.0100 #### [facility] [address] [place], [place], [address] COMPREHENSIVE METABOLIC Collected: 01/21/2018 Status: F Source: [facility] 1:59 PM [facility] REPOSITORY TYPE CODE TESTS RESULT OUT OF [...] 7 GAP Performed By: #### L500.4050 #### [facility] [address] [place], [place], [address] AMMONIA Collected: 01/21/2018 Status: F Source: [place] 1:59 PM [facility] REPOSITORY TYPE CODE TESTS RESULT OUT OF REFERENCE UNITS RANGE LAB L503.5510 11-32 umol/L High AMMONIA 39.0 Performed By: #### L503.5510 #### [facility] [address] [place], [address] PARACENTESIS WITH US Observed: 01/20/2018 Status: F Source: [place] 12:20 PM [facility] REPOSITORY [facility] Imaging Services [address] [place] [address] Paracentesis with US MR#: [id number] Acct: [id number] Name: ANITA MCCALLUM Rep #: [id number] : 1945 F 72 From: Rigo Britt MD PCP: Nicola Bay MD Status: REG CLI Study: Paracentesis with US Date of Exam: 01/20/18 Exam# [id number] Ordering Dr: Abimael Castillo MD PROCEDURE: Ultrasound [...] the peritoneal cavity was accessed with a 5-Bahraini paracentesis needle/catheter system. The trocar was removed. A total of 5500 ml of harsh-colored fluid were removed from the peritoneal cavity. The catheter was removed and a sterile dressing was applied. The procedure was well tolerated. US/Paracentesis with US IMPRESSION: Ultrasound guided paracentesis. Electronically Signed: Rigo Britt MD at 13:53 EDT Tel [phone], Service support , CC: Nicola Bay MD; Abimael Castillo Conveyor Mechanic: Signed PROTHROMBIN TIME W/INR Collected: 01/19/2018 Status: F Source: [place] 12:16 PM [facility] REPOSITORY TYPE CODE TESTS RESULT OUT OF RANGE REFERENCE UNITS LAB L300.4150 11.7-14.9 SECONDS Normal PROTIME 13.4 LAB L300.4200 Normal INR 1.0 Performed By: #### L300.3900, L300.4310 #### [facility] [address] [place], [address] PARTIAL THROMBOPLAST Collected: 01/19/2018 Status: F Source: [place] TIME 12:16 PM [facility] REPOSITORY TYPE CODE TESTS RESULT OUT OF RANGE REFERENCE UNITS LAB L300.4310 24.1-36.2 Seconds Normal PTT 27.9 Performed By: #### L300.3900, L300.4310 #### [facility] [address] [place], [address] PARACENTESIS WITH US Observed: 01/13/2018 Status: F Source: [place] 12:17 PM [facility] REPOSITORY [facility] Imaging Services [address] [place] [address] Paracentesis with US MR#: [id number] Acct: [id number] Name: ANITA MCCALLUM Rep #: [id number] : 1945 F 72 From: Shaheen Alcocer MD PCP: Nicola Bay MD Status: REG CLI Study: Paracentesis with US Date of Exam: 01/13/18 Exam# [id number] Ordering Dr: Abimael Castillo MD PROCEDURE: ULTRASOUND [...] , CC: Nicola Bay MD; Abimael Castillo Conveyor Mechanic: Signed PARACENTESIS WITH US Observed: 01/06/2018 Status: F Source: [place] 12:14 PM [facility] REPOSITORY [facility] Imaging Services [address] [place] [address] [place] [address] Paracentesis with US MR#: [id number] Acct: [id number] Name: ANITA MCCALLUM Rep #: [id number] : 1945 F 72 From: Rigo Britt MD PCP: Nicola Bay MD Status: REG CLI Study: Paracentesis with US Date of Exam: 01/06/18 Exam# [id number] Ordering Dr: Abimael Castillo MD PROCEDURE: Ultrasound [...] the peritoneal cavity was accessed with a 5-Bahraini paracentesis needle/catheter system. The trocar was removed. A total of 4350 ml of harsh-colored fluid. were removed from the peritoneal cavity. The catheter was removed and a sterile dressing was applied. The procedure was well tolerated. US/Paracentesis with US IMPRESSION: Ultrasound guided paracentesis. Electronically Signed: Rigo Britt MD at 14:01 EDT Tel [phone], Service support , CC: Nicola Bay MD; Abimael Castillo Conveyor Mechanic: Signed BASIC METABOLIC Collected: 12/31/2017 Status: F Source: [place] PROFILE ([facility]) 2:21 PM [facility] REPOSITORY TYPE CODE TESTS RESULT OUT OF [...] GAP 7 Performed By: #### L500.2500 #### [facility] [place], [address] PARACENTESIS WITH US Observed: 12/30/2017 Status: F Source: [place] 1:00 PM [facility] REPOSITORY [facility] [place] [address] Paracentesis with US MR#: [id number] Acct: [id number] Name: ANITA MCCALLUM Rep #: [id number] : 1945 F 72 From: Rigo Britt MD PCP: Nicola Bay MD Status: REG CLI Study: Paracentesis with US Date of Exam: 12/30/17 Exam# [id number] Ordering Dr: Abimael Castillo MD PROCEDURE: Ultrasound [...] the peritoneal cavity was accessed with a 5-Bahraini paracentesis needle/catheter system. The trocar was removed. A total of 4700 ml of harsh-colored fluid were removed from the peritoneal cavity. The catheter was removed and a sterile dressing was applied. The procedure was well tolerated. US/Paracentesis with US IMPRESSION: Ultrasound guided paracentesis. Electronically Signed: Rigo Britt MD at 15:17 EDT Tel [phone], Service support , CC: Nicola Bay MD; Abimael Castillo Conveyor Mechanic: Signed PARACENTESIS WITH US Observed: 12/23/2017 Status: F Source: [place] 10:19 AM [facility] REPOSITORY [facility] Imaging Services [address] [place] [address] Paracentesis with US MR#: [id number] Acct: [id number] Name: ANITA MCCALLUM Rep #: [id number] : 1945 F 72 From: Rigo Britt MD PCP: Nicola Bay MD Status: REG CLI Study: Paracentesis with US Date of Exam: 12/23/17 Exam# [id number] Ordering Dr: Abimael Castillo MD PROCEDURE: Ultrasound [...] the peritoneal cavity was accessed with a 5-Bahraini paracentesis needle/catheter system. The trocar was removed. A total of 6550 ml of harsh-colored fluid were removed from the peritoneal cavity. The catheter was removed and a sterile dressing was applied. The procedure was well tolerated. US/Paracentesis with US IMPRESSION: Ultrasound guided paracentesis. Electronically Signed: Rigo Britt MD at 12:26 EDT Tel [phone], Service support , CC: Nicola Bay MD; Abimael Castillo Conveyor Mechanic: Signed PROTHROMBIN TIME W/INR Collected: 12/20/2017 Status: F Source: [place] 11:46 AM [facility] REPOSITORY TYPE CODE TESTS RESULT OUT OF RANGE REFERENCE UNITS LAB L300.4150 11.7-14.9 SECONDS Normal PROTIME 13.8 LAB L300.4200 Normal INR 1.1 Performed By: #### L300.3900, L300.4310 #### [facility] [address] [place], [address] PARTIAL THROMBOPLAST Collected: 12/20/2017 Status: F Source: [place] TIME 11:46 AM [facility] REPOSITORY TYPE CODE TESTS RESULT OUT OF RANGE REFERENCE UNITS LAB L300.4310 24.1-36.2 Seconds Normal PTT 27.5 Performed By: #### L300.3900, L300.4310 #### [facility] [address] [place], [address] UNILAT LT SCRN Observed: 12/20/2017 Status: F Source: [place] W/CAD 10:43 AM [facility] REPOSITORY [facility] Imaging Services [address] [place] [address] UNILAT LT SCRN W/CAD MR#: [id number] Acct: [id number] Name: ANITA MCCALLUM Rep #: [id number] : 1945 F 72 From: Rigo Britt MD PCP: Nicola Bay MD Status: REG CLI Study: UNILAT LT SCRN W/CAD Date of Exam: 12/20/17 Exam# [id number] Ordering Dr: Nicola Bay MD MAMMOGRAPHY - [...] delay biopsy of a clinically suspicious abnormality. [id number] Electronically Signed: Rigo Britt MD at 14:54 EDT Tel [phone], Service support , CC: Nicola Bay MD Conveyor Mechanic: Signed PARACENTESIS WITH US Observed: 12/17/2017 Status: F Source: [place] 2:05 PM [facility] Imaging Services [address] [place] [address] Paracentesis with US MR#: [id number] Acct: [id number] Name: XENAANITA K Rep #: [id number] : 1945 F 72 From: Rigo Britt MD PCP: Nicola Bay MD Status: REG CLI Study: Paracentesis with US Date of Exam: 12/17/17 Exam# [id number] Ordering Dr: Abimael Castillo MD PROCEDURE: Ultrasound [...] the peritoneal cavity was accessed with a 5-Bahraini paracentesis needle/catheter system. The trocar was removed. A total of 3000 ml of harsh-colored fluid were removed from the peritoneal cavity. The catheter was removed and a sterile dressing was applied. The procedure was well tolerated. US/Paracentesis with US IMPRESSION: Ultrasound guided paracentesis. Electronically Signed: Rigo Britt MD at 15:14 EDT Tel [phone], Service support , CC: Nicola Bay MD; Abimael Castillo Conveyor Mechanic: Signed PARACENTESIS WITH US Observed: 12/10/2017 Status: F Source: [place] 10:15 AM [facility] REPOSITORY [facility] Imaging Services [address] [place] [address] Paracentesis with US MR#: [id number] Acct: [id number] Name: ANITA MCCALLUM Rep #: [id number] : 1945 F 72 From: Rigo Britt MD PCP: Nicola Bay MD Status: REG CLI Study: Paracentesis with US Date of Exam: 12/10/17 Exam# [id number] Ordering Dr: Abimael Castillo MD PROCEDURE: Ultrasound [...] the peritoneal cavity was accessed with a 5-Bahraini paracentesis needle/catheter system. The trocar was removed. A total of 6350 ml of harsh-colored fluid were removed from the peritoneal cavity. The catheter was removed and a sterile dressing was applied. The procedure was well tolerated. US/Paracentesis with US IMPRESSION: Ultrasound guided paracentesis. Electronically Signed: Rigo Britt MD at 12:30 EDT Tel [phone], Service support , CC: Nicola Bay MD; Abimael Castillo Conveyor Mechanic: Signed DOWNTIME REPORT Observed: 12/09/2017 Status: F Source: [place] 1:53 PM [facility] RE[facility]ITORY [facility] Medical Records Department [address] [place] [address] Downtime Report MR#: [id number] Acct: [id number] Name: ANITA MCCALLUM Rep #: [id number] : 1945 72 From: Agapito Ashford PCP: Nicola Bay MD Status: REG CLI This patient was seen during an EMR downtime November 22, 2017 - November 29, 2017. This patient may have a combination of paper and electronic documentation or all paper documentation. All documentation is viewable within the e-chart portion of [facility] for each patient visit. DOWNTIME REPORT Observed: 12/09/2017 Status: F Source: [place] 12:23 PM [facility] REPOSITORY [facility] Medical Records Department [address] [place] [address] Downtime Report MR#: [id number] Acct: [id number] Name: ANITA MCCALLUM Rep #: [id number] : 1945 72 From: Agapito Ashford PCP: Nicola Bay MD Status: REG CLI This patient was seen during an EMR downtime November 22, 2017 - November 29, 2017. This patient may have a combination of paper and electronic documentation or all paper documentation. All documentation is viewable within the e-chart portion of [facility] for each patient visit. DOWNTIME REPORT Observed: 12/09/2017 Status: F Source: [place] 12:17 PM [facility] Medical Records Department [address] [place] [address] Downtime Report MR#: [id number] Acct: [id number] Name: ANITA MCCALLUM Jelani Rep #: [id number] : 1945 72 From: Agapito Ashford PCP: Nicola Bay MD Status: REG CLI This patient was seen during an EMR downtime November 22, 2017 - November 29, 2017. This patient may have a combination of paper and electronic documentation or all paper documentation. All documentation is viewable within the e-chart portion of [facility] for each patient visit. PARACENTESIS WITH US Observed: 12/02/2017 Status: F Source: [place] 12:13 PM [facility] Imaging Services [address] [place] [address] Paracentesis with US MR#: [id number] Acct: [id number] Name: ANITA MCCALLUM Rep #: [id number] : 1945 F 72 From: Samra Martinez MD PCP: Nicola Bay MD Status: REG CLI Study: Paracentesis with US Date of Exam: 12/02/17 Exam# [id number] Ordering Dr: Abimael Castillo MD PROCEDURE: ULTRASOUND [...] 10 mL of lidocaine 1% a 5 Bahraini drainage catheter is introduced in the lower [...] , CC: Nicola Bay MD; Abimael Castillo Conveyor Mechanic: Signed PROGRESS Observed: 12/01/2017 Status: COMPLETED Source: [place] 11:29 AM [facility] REPOSITORY HNO ID: [id number] Author: Nicola Price Service: (none) Author Type: [...] bone metastases. She didn't recall seeing a desktop support engineer in 2009. She denied musculoskeletal pain but [...] She is under the care of a instructional technology teacher. Evidently there is plan for further workup [...] No spider angiomas. No palmar erythema. 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.818) Pancytopenia [...] DO CNOVSP Observed: 12/01/2017 Status: COMPLETED Source: [place] 10:50 AM [facility] REPOSITORY Visit (SP) Office (HEMAWS) ANITA MCCALLUM ([id number]) 1945 F Date Time Provider Department 12/01/17 [...] bone metastases. She didn't recall seeing a desktop support engineer in 2009. She denied musculoskeletal pain but [...] She is under the care of a instructional technology teacher. Evidently there is plan for further workup [...] No spider angiomas. No palmar erythema. 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.818) Pancytopenia [...] Nicola Price DO Referring Provider: NICOLA PRICE [[id number]] Allergies As of Date: 12/01/2017 Noted Allergy Reaction BIAXIN (CLARITHROMYCIN) 06/12/2009 POTASSIUM IODIDE 06/12/2009 Date Reviewed: 12/01/2017 Reviewed by: Viv Santiago (Corporate Traffic Manager) ARNALDO Elizabeth - Fully Assessed Reason for [...] F Source: [place] AND [place]YSICAL 9:52 AM [facility]ITORY [facility] Wound Healing Center [address] [place] [address] Wound Ctr History AND Physical 11/30/17 0942 MR#: [id number] Acct: [id number] Name: ANITA MCCALLUM Rep #: [id number] : 1945 72 From: Jose Alfredo Barnett [...] of other providers, including Dr. Castillo, a instructional technology teacher. It is suspected that the lower extremity [...] Date Recorded By Document 11/30/17 09:17 DONALDO [id number] 11/30/17 09:21 DONALDO Wound Center Nurse 1 [...] 11/29/2017 Status: F Source: [place] 10:32 AM [facility] RE[facility]ITORY [facility] Imaging Services [address] [place] [address] Paracentesis with US MR#: [id number] Acct: [id number] Name: ANITA MCCALLUM Rep #: [id number] : 1945 F 72 From: Samra Martinez MD PCP: Nicola Bay MD Status: REG CLI Study: Paracentesis with US Date of Exam: 11/22/17 Exam# [id number] Ordering Dr: Abimael Castillo MD PROCEDURE: ULTRASOUND [...] 10 mL of lidocaine 1% a 5 Bahraini drainage catheter is introduced in the lower [...] , CC: Nicola Bay MD; Abimael Castillo Conveyor Mechanic: Signed PARACENTESIS WITH US Observed: 11/25/2017 Status: F Source: [place] 9:05 AM [facility] REPOSITORY [facility] Imaging Services [address] [place] [address] [place] [address] Paracentesis with US MR#: [id number] Acct: [id number] Name: ANITA MCCALLUM Rep #: [id number] : 1945 F 72 From: Samra Martinez MD PCP: Nicola Bay MD Status: REG CLI Study: Paracentesis with US Date of Exam: 11/25/17 Exam# [id number] Ordering Dr: Abimael Castillo MD PROCEDURE: ULTRASOUND [...] 10 mL of lidocaine 1% a 5 Bahraini drainage catheter is introduced in the lower [...] , CC: Nicola Bay MD; Abimael Castillo Conveyor Mechanic: Signed FERRITIN Collected: 11/24/2017 Status: F Source: [place] 12:51 PM [facility] REPOSITORY TYPE CODE TESTS RESULT OUT OF REFERENCE UNITS RANGE LAB FERR 14.7-205.1 ng/mL Test Ferritin sent to [facility]. Result Comment: Account Credited J[facility] IRON AND TIBC Collected: 11/24/2017 Status: F Source: [place] 12:51 PM [facility] REPOSITORY TYPE CODE TESTS RESULT OUT OF REFERENCE UNITS RANGE LAB IRN 41-186 ug/dL Test Iron sent to [facility]. Result Comment: Account Credited [facility] LAB TIBC 232-386 ug/dL Test sent TIBC to [facility]. Result Comment: Account Credited [facility] LAB SAT 15-57 % Transferrin Test sent Saturatn to [facility]. Result Comment: Account Credited [facility] [place] ABS GR + CBC Collected: 11/24/2017 Status: F Source: [place] 12:50 PM [facility] REPOSITORY TYPE CODE TESTS RESULT OUT OF REFERENCE UNITS RANGE LAB WWBC 3.70-11.00 k/uL Low [place] WBC 2.18 LAB WRBC 3.90-5.20 m/uL Low [place] RBC 3.36 LAB WHGB 11.5-15.5 g/dL Low [place] Hemoglobin 10.4 LAB WHCT 36.0-46.0 % Low [place] Hematocrit 32.1 LAB WMCV 80.0-100.0 fL [place] MCV 95.5 LAB WMCH 26.0-34.0 pg [place] MCH 31.0 LAB WMCHC 30.5-36.0 g/dL [place] MCHC 32.4 LAB WRDW 11.5-15.0 % [place] RDW 14.5 LAB WPLT 150-400 k/uL Low [place] Platelet Cnt 65 Result Comment: NO CLOT DETECTED LAB WMPV 9.0-12.7 fL [place] MPV 10.4 Result Comment: Test performed at: [facility], [address] [place] [address] Rd[address] [place] [address]. LAB ABGRAN 1.45-7.50 k/uL Absol Gran 1.59 Count [place] ISTAT BMP Collected: 11/24/2017 Status: F Source: [place] 12:50 PM [facility] REPOSITORY TYPE CODE TESTS RESULT [...] IRON+IRON BINDING Collected: 11/24/2017 Status: F Source: [facility] 12:24 PM [facility] REPOSITORY Order Comment: RESULT(S) PREVIOUSLY REPORTED ON MANUAL REQUISITION DURING DOWNTIME. TYPE CODE TESTS RESULT OUT OF RANGE REFERENCE UNITS LAB L503.6075 250-450 ug/dL Low TIBC 232 LAB L503.6150 50-170 ug/dL IRON Normal 115 LAB L503.6250 15.0-55.0 % IRON Normal SATURATION 49.6 Performed By: #### L503.6030, L503.6550 #### [facility] [address], [address] FERRITIN Collected: 11/24/2017 Status: F Source: [place] 12:24 PM [facility] REPOSITORY Order Comment: RESULT(S) PREVIOUSLY REPORTED ON MANUAL REQUISITION DURING DOWNTIME. TYPE CODE TESTS RESULT OUT OF REFERENCE UNITS RANGE LAB L503.6550 8-252 ng/mL High FERRITIN 339 Performed By: #### L503.6030, L503.6550 #### [facility] [address] [place], [address] PROTHROMBIN TIME W/INR Collected: 11/22/2017 Status: F Source: [place] 9:40 AM [facility] REPOSITORY Order Comment: RESULT(S) PREVIOUSLY REPORTED ON MANUAL REQUISITION DURING DOWNTIME. TYPE CODE TESTS RESULT OUT OF RANGE REFERENCE UNITS LAB L300.4150 11.7-14.9 SECONDS Normal PROTIME 13.9 LAB L300.4200 Normal INR 1.1 Performed By: #### L300.3900, L300.4310 #### [facility] [address] [place], [address] PARTIAL THROMBOPLAST Collected: 11/22/2017 Status: F Source: [place] TIME 9:40 AM [facility] REPOSITORY Order Comment: RESULT(S) PREVIOUSLY REPORTED ON MANUAL REQUISITION DURING DOWNTIME. TYPE CODE TESTS RESULT OUT OF RANGE REFERENCE UNITS LAB L300.4310 24.1-36.2 Seconds Normal PTT 29.4 Performed By: #### L300.3900, L300.4310 #### [facility] [address] [facility] [place], [address] PARACENTESIS WITH US Observed: 11/19/2017 Status: F Source: [place] 1:59 PM [facility] REPOSITORY [facility] Imaging Services [address] [place] [address] Paracentesis with US MR#: [id number] Acct: [id number] Name: ANITA MCCALLUM Rep #: [id number] : 1945 F 72 From: Rigo Britt MD PCP: Nicola Bay MD Status: REG CLI Study: Paracentesis with US Date of Exam: 11/19/17 Exam# [id number] Ordering Dr: Abimael Castillo MD PROCEDURE: Ultrasound [...] the peritoneal cavity was accessed with a 5-Bahraini paracentesis needle/catheter system. The trocar was removed. A total of 8000 ml of harsh-colored fluid were removed from the peritoneal cavity. The catheter was removed and a sterile dressing was applied. The procedure was well tolerated. US/Paracentesis with US IMPRESSION: Ultrasound guided paracentesis. Electronically Signed: Rigo Britt MD at 15:41 EDT Tel [phone], Service support , CC: Nicola Bay MD; Abimael Castillo Conveyor Mechanic: Signed ALBUMIN, SERUM Collected: 11/19/2017 Status: F Source: [place] 9:32 AM [facility] REPOSITORY Order Comment: Serial Specimen #1, #2 or #3? 1 TYPE CODE TESTS RESULT OUT OF RANGE REFERENCE UNITS LAB L501.1800 3.2-5.0 g/dL Low ALB 2.7 Performed By: #### L501.1800, L501.2450, L504.2610 #### [facility] [address] [place], [place], [address] LIPASE Collected: 11/19/2017 Status: F Source: [place] 9:32 AM [facility] REPOSITORY Order Comment: Serial Specimen #1, #2 or #3? 1 TYPE CODE TESTS RESULT OUT OF RANGE REFERENCE UNITS LAB L501.2450 73-393 U/L Normal LIPASE 167 Performed By: #### L501.1800, L501.2450, L504.2610 #### [facility] [address] [place], [address] LDH Collected: 11/19/2017 Status: F Source: [place] 9:32 AM [facility] REPOSITORY Order Comment: Serial Specimen #1, #2 or #3? 1 TYPE CODE TESTS RESULT OUT OF RANGE REFERENCE UNITS LAB L504.2610 84-246 U/L Normal LDH 190 Performed By: #### L501.1800, L501.2450, L504.2610 #### [facility] [address] [place], [address] BASIC METABOLIC Collected: 11/17/2017 Status: F Source: [place] PROFILE (BMP) 2:09 PM [facility] REPOSITORY TYPE CODE TESTS RESULT OUT OF [...] GAP 7 Performed By: #### L500.2500 #### [facility] [address] [place], [address] WOUND CTR HISTORY Observed: 11/16/2017 Status: F Source: [place] AND [place] 10:12 AM [facility] REPOSITORY [facility] Wound Healing Center [address] [place] [address] Wound Ctr History AND Physical 11/16/17 1004 MR#: [id number] Acct: [id number] Name: ANITA MCCALLUM Rep #: [id number] : 1945 72 From: Jose Alfredo Barnett [...] of other providers, including Dr. Castillo, a instructional technology teacher. It is suspected that the lower extremity [...] Recorded Date Recorded By Document 11/16/17 09:41 [id number] 11/16/17 09:43 Wound Center Nurse 1 [Ulcer Assessment] #1- RT LAT GONZALEZ -Combined with other wound No -Current Size (cm) - Length 0 - Nurse 2 - General Ulcer CM Notes Start: 10/21/17 13:50 Freq: Status: Active Protocol: Activity Type Activity Date Activity User E-Sign Co-Sign Detail Recorded Client Recorded Date Recorded By Document 11/16/17 10:01 [id number] 11/16/17 10:01 Wound Center Nurse 2 Musculoskeletal: [...] Recorded Date Recorded By Document 10/26/17 12:46 [id number] 10/26/17 12:47 Wound Center Nurse 2 Wound [...] F Source: [place] 10:06 AM [facility] REPOSITORY [facility] Wound Healing Center [address] [place] [address] Wound Ctr History AND Physical 11/09/17 0956 MR#: [id number] Acct: [id number] Name: ANITA MCCALLUM Rep #: [id number] : 1945 72 From: Jose Alfredo Barnett [...] of other providers, including Dr. Castillo, a instructional technology teacher. It is suspected that the lower extremity [...] Date Recorded By Document 11/09/17 09:18 DONALDO [id number] 11/09/17 09:21 DONALDO WC - Nurse 2 - General Ulcer CM Notes Start: 10/21/17 13:50 Freq: Status: Active Protocol: Activity Type Activity Date Activity User E-Sign Co-Sign Detail Recorded Client Recorded Date Recorded By Document 11/09/17 09:48 JS [id number] 11/09/17 09:49 SERGIO Wound Center Nurse 2 [...] Status: F Source: [place] PHOTO 10:57 AM [facility] REPOSITORY TYPE CODE TESTS RESULT OUT OF [...] Comment: Physician questions regarding Calculi Analysis contact [facility] at: [phone]. LAB L3577.6970 . Normal COMMENT Comment Result Comment: Calculi report with photograph will follow via computer, mail or orientation & mobility specialist delivery. LAB L3752.3611 . Normal Disclaimer Comment Result Comment: This test was developed and its performance characteristics determined by [facility]. It has not been cleared or approved by the Food and Drug Administration. Performed at: [address] [id number] Table Attendant: Daniel Man MD, Phone: [phone] Performed By: #### L3650.0100 #### [facility] (refer to report for specific site) refer to report for address and phone number ABDOMEN/PELVIS WITHOUT Observed: 11/03/2017 Status: F Source: [place] CONT 9:59 AM [facility] REPOSITORY [facility] Imaging Services [address] [place] [address] Abdomen/Pelvis without Cont MR#: [id number] Acct: [id number] Name: ANITA MCCALLUM Rep #: [id number] : 1945 F 72 From: Rigo Britt MD PCP: Nicola Bay MD Status: REG CLI Study: Abdomen/Pelvis without Cont Date of Exam: 11/03/17 Exam# [id number] Ordering Dr: Iveth Woody TELEGRAPH REPEATER INSTALLER-C STUDY: CT ABDOMEN AND PELVIS WITHOUT CONTRAST [...] Rigo Britt MD at 11:24 EDT Tel [phone], Service support , CC: Nicola Bay MD; Iveth Woody NP Conveyor Mechanic: Signed ABDOMEN SINGLE VIEW Observed: 11/02/2017 Status: F Source: [place] 4:05 PM [facility] REPOSITORY [facility] Imaging Services [address] [place] [address] Abdomen Single View MR#: [id number] Acct: [id number] Name: ANITA MCCALLUM Rep #: [id number] : 1945 F 72 From: Fabricio Short DO PCP: Nicola Bay MD Status: REG CLI Study: Abdomen Single View Date of Exam: 11/02/17 Exam# [id number] Ordering Dr: Rob Busby MD STUDY: X-RAY [...] Fabricio Short DO at 22:39 EDT Tel [phone], Service support , CC: Rob Busby MD; Nicola Bay MD Conveyor Mechanic: Signed WOUND CTR HISTORY Observed: 11/02/2017 Status: F Source: [place] AND [place] 9:32 AM [facility] REPOSITORY [facility] Wound Healing Center [address] [place] [address] Wound Ctr History AND Physical 11/02/17 0922 MR#: [id number] Acct: [id number] Name: ANITA MCCALLUM Rep #: [id number] : 1945 72 From: Jose Alfredo Barnett [...] Date Recorded By Document 11/02/17 08:53 DV [id number] 11/02/17 08:59 DV Wound Center Nurse 1 [...] Date Recorded By Document 11/02/17 09:12 JS [id number] 11/02/17 09:16 JS Wound Center Nurse 2 [...] WITH US Observed: 10/27/2017 Status: F Source: [place] 1:56 PM [facility] REPOSITORY [facility] Imaging Services [address] [place] [address] Paracentesis with US MR#: [id number] Acct: [id number] Name: ANITA MCCALLUM Rep #: [id number] : 1945 F 71 From: Rigo Britt MD PCP: Nicola Bay MD Status: REG CLI Study: Paracentesis with US Date of Exam: 10/27/17 Exam# [id number] Ordering Dr: Abimael Castillo MD PROCEDURE: Ultrasound [...] the peritoneal cavity was accessed with a 5-Bahraini paracentesis needle/catheter system. The trocar was removed. A total of 3600 ml of harsh-colored fluid were removed from the peritoneal cavity. The catheter was removed and a sterile dressing was applied. The procedure was well tolerated. US/Paracentesis with US IMPRESSION: Ultrasound guided paracentesis. Electronically Signed: Rigo Britt MD at 15:20 EDT Tel [phone], Service support , CC: Nicola Bay MD; Abimael Castillo Conveyor Mechanic: Signed WOUND CTR HISTORY Observed: 10/26/2017 Status: F Source: [place] [facility] [place] 1:07 PM [facility] REPOSITORY [facility] Wound Healing Center [address] [place] [address] Wound Ctr History AND Physical 10/26/17 1254 MR#: [id number] Acct: [id number] Name: ANITA MCCALLUM Rep #: [id number] : 1945 71 From: Jose Alfredo Barnett [...] and will again be performed tomorrow, at [facility]. The swelling and edema in the [...] Date Recorded By Document 10/26/17 12:05 DONALDO [id number] 10/26/17 12:16 DONALDO Wound Center Nurse 1 [Ulcer Assessment] #2 LEFT GONZALEZ ULCER -Combined with other wound No WC - Nurse 2 - General Ulcer CM Notes Start: 10/21/17 13:50 Freq: Status: Active Protocol: Activity Type Activity Date Activity User E-Sign Co-Sign Detail Recorded Client Recorded Date Recorded By Document 10/26/17 12:46 [id number] 10/26/17 12:47 Wound Center Nurse 2 [Procedure/Treatment] [...] Recorded Date Recorded By Document 10/26/17 12:46 [id number] 10/26/17 12:47 Wound Center Nurse 2 No [...] 10/25/2017 Status: F Source: [place] 2:17 PM [facility] REPOSITORY [facility] Cardiovascular Services [facility] [place] [address] 12 Lead EKG 10/22/17 1536 MR#: [id number] Acct: [id number] Name: ANITA MCCALLUM Rep #: [id number] : 1945 71 From: Americo Gomez MD [...] ECG Confirmed by AMERICO GOMEZ MD ([id number]), editor city [place] ([id number]) on 10/25/2017 2:16:38 PM Referred By: WAI Confirmed By:AMERICO GOMEZ MD 10/25/17 1416 Date Americo Gomez MD CC: Nicola Bay MD; Antonio Aguayo DO Signed EMERGENCY DEPARTMENT Observed: 10/22/2017 Status: F Source: [place] SUMMARY 6:25 PM [facility] REPOSITORY [facility] Medical Records Department [address] [place] [address] Emergency Department Summary 10/22/17 1822 MR#: [id number] Acct: [id number] Name: ANITA MCCALLUM Rep #: [id number] : 1945 71 From: Antonio Aguayo DO [...] [Dizziness-resolved Dyspnea-resolved] This note was generated with [employer] dictation software. It may contain incorrect words, [...] problems, contact your Primary Care Provider. Call [facility] [employer] [facility] ([phone]) or report to the closest Emergency Room. Call 911 if necessary. 10/22/17 0905 <Electronically signed by Antonio Aguayo DO> Date Antonio Aguayo DO Cosigner Signature (If Indicated): Date CC: Nicola Bay MD DISCHARGE INSTRUCTION Observed: 10/22/2017 Status: F Source: [place] 6:25 PM [facility] REPOSITORY [facility] Medical Records Department [address] [place] [address] Discharge Instruction 10/22/171824 MR#: [id number] Acct: [id number] Name: ANITA MCCALLUM Rep #: [id number] : 1945 71 From: Antonio Aguayo DO [...] your Primary Care Provider. Call [facility] ([phone]) or report to the closest Emergency Room. Call 911 if necessary. 10/22/171824 <Electronically signed by Antonio Aguayo DO> Date Antonio Aguayo DO Cosigner Signature (If Indicated): Date CC: Nicola Bay MD URINALYSIS, COMPLETE Collected: 10/22/2017 Status: F Source: [place] 5:10 PM [facility] REPOSIT[facility] Order Comment: Order Date: 10/22/17 How [...] URINE SEEN Performed By: #### L400.0001 #### [facility] [address] [place], [address] CBC W/DIFF, AUTOMATED Collected: 10/22/2017 Status: F Source: [place] 3:34 PM [facility] REPOSITORY TYPE CODE TESTS RESULT OUT OF [...] MOD DEC Performed By: #### L100.0100 #### [facility] [address] [place], [address] BASIC METABOLIC Collected: 10/22/2017 Status: F Source: [place] PROFILE (BMP) 3:34 PM [facility] REPOSITORY Order Comment: 'TROP' Serial specimen #1, [...] 4 Performed By: #### L500.2500, L501.4010 #### [facility] [address] [place], [address] TROPONIN-I Collected: 10/22/2017 Status: F Source: [place] 3:34 PM [facility] REPOSITORY Order Comment: 'TROP' Serial specimen #1, #2, #3, or #4: 1 TYPE CODE TESTS RESULT OUT OF RANGE REFERENCE UNITS LAB L501.4010 <0.06 ng/mL Normal < 0.02 TROPONIN-I Result Comment: TROPONIN-I EXPECTED VALUES <0.05 NEGATIVE 0.06 - 0.59 AT RISK OF VA > OR = 0.60 SUGGEST VA Performed By: #### L500.2500, L501.4010 #### [facility] [address] [place], [place], [address] LDH,BODY FLUID Collected: 10/22/2017 Status: F Source: [place] 2:22 PM [facility] RE[facility]IT[facility] Order Comment: Specimen Source: ASCITES TYPE CODE TESTS RESULT OUT OF RANGE REFERENCE UNITS LAB L504.0250 Not Establ. Units/l Normal LDH,BF 62 Performed By: #### L504.0250 #### [facility] [address] [place], [place], [address] BODY FLUID CELL Collected: 10/22/2017 Status: C Source: [place] COUNT+DIFF 2:22 PM [facility] Order Comment: PARACENTESIS FLUID. The reference [...] SEE COMMENT Performed By: #### L200.0200 #### [facility] [address] [facility]. [place], [place], [id number] Observed: 10/22/2017 Status: F Source: [place] CULTURE, BODY FLUID 2:22 PM [facility] List Antibiotics Last 48 Hours? . List Antibiotics to be Started? . Gram Stain Gram Stain No cells seen No organisms seen Body Fluid Cult No growth aerobically. Cult, Anaerobic No growth in 5 days. Performed By: #### M100.1300 #### [facility] [address] [place], [address] FLUID/WASHING Observed: 10/22/2017 Status: F Source: [place] 2:22 PM [facility] Patient: ANITA MCCALLUM : 1945 (71/F) Acct Num: [id number] Phys: Abimael Castillo Unit Num: [id number] Loc: US Specimen: [id number] Received: 10/25/17 - 1159 Spec Type: Fluid TISSUES TISSUES: PARACENTESIS FLUID CYTOLOGY GROSS Received is 85 ml of slightly cloudy yellow fluid labeled with the patient's name and and designated per the requisition as paracentesis. Submitted for cytology preparation including cell block. / 10/25/17 TC:5 CPT: 82750, 00420 CYTOLOGY STUDY Slides are reviewed. The specimen consists of macrophages, mesothelial cells and inflammatory cells. DIAGNOSIS CYTOLOGY Paracentesis fluid for cytology (cytospin): Negative for malignant cells. SJ:ivy 10/26/17 HEADER OPERATION: Ultrasound-guided paracentesis PRE-OP DIAGNOSIS: Ascites TISSUE SUBMITTED: Paracentesis fluid for cytology Signed Vamsi Ramires 10/26/17 <signature on file> Performed By: #### PFLU #### [facility] [address] [place], [place], [address] CYTOLOGY, BODY FLUID / Collected: 10/22/2017 Status: F Source: [place] CSF 2:22 PM [facility] Order Comment: Specimen Source: ASCITES TYPE CODE TESTS RESULT OUT OF RANGE REFERENCE UNITS LAB L350.1000 SEE Normal PATHOLOGY CYTOLOGY,BF REPORT /CSF Result Comment: Specimen submitted to Anatomical Pathology Department for testing. Performed By: #### L350.1000 #### [facility] [address] [place], [address] MISCELLANEOUS LAB Collected: 10/22/2017 Status: F Source: [place] PROCEDURE 2 2:22 PM [facility] Order Comment: Interface Comments: paracentesis fluid. List Test(s) Ordered by Physician: [id number] 2ml ref. TYPE CODE TESTS RESULT OUT OF RANGE REFERENCE UNITS LAB L801.1543 Normal [facility] 2 Result Comment: TEST RESULT UNITS REF INTERVAL Lipase, Fluid 18 U/L INTERPRETIVE INFORMATION: Lipase, Fluid For information on body fluid reference ranges and/or interpretive guidance visit [email or web address] Test developed and characteristics determined by [facility]. See Compliance Statement B: Lotame.eMagin/ Albumin, Body Fluid 1.2 g/dL : Peritoneal [...] clinical context for interpretation. TESTING PERFORMED AT [facility]. ORIGINAL REPORT ON FILE IN LAB CONTAINS ADDITIONAL TEST SITE INFORMATION. Performed By: #### L801.1543 #### [facility] [address] [place], [address] PROTEIN, BODY FLUID Collected: 10/22/2017 Status: F Source: [place] 2:22 PM [facility] Order Comment: Specimen Source: PARACENTESIS FLUID TYPE CODE TESTS RESULT OUT OF RANGE REFERENCE UNITS LAB L503.0300 Not Establ. g/dL Normal 2.5 PROTEIN,BF Performed By: #### L503.0300 #### [facility] [address] [place], [address] MISCELLANEOUS LAB Collected: 10/22/2017 Status: F Source: [place] PROCEDURE 2:22 PM [facility] Order Comment: Interface Comments: paracentesis fluid. Test(s) Ordered: [id number] 1ml room temp TYPE CODE TESTS RESULT OUT OF RANGE REFERENCE UNITS LAB L801.1541 Normal [facility] LAB TEST Result Comment: TEST RESULT LIMITS Lipase, Fluid 18 U/L INTERPRETIVE INFORMATION: Lipase, Fluid For information on body fluid reference ranges and/or interpretive guidance visit [email or web address] Test developed and characteristics determined by [facility] Milk. See Compliance Statement B: Orchestrate/CS TESTING PERFORMED AT [facility]. ORIGINAL REPORT ON FILE IN LAB CONTAINS ADDITIONAL TEST SITE INFORMATION. Performed By: #### L801.1541 #### [facility] [address] [place], [address] CHEST 1 VIEW Observed: 10/22/2017 Status: F Source: [place] 2:13 PM [facility] Imaging Services [address] [place] [address] Chest 1 View MR#: [id number] Acct: [id number] Name: ANITA MCCALLUM Rep #: [id number] : 1945 F 71 From: Samra Martinez MD PCP: Nicola Bay MD Status: REG CLI Study: Chest 1 View Date of Exam: 10/22/17 Exam# [id number] Ordering Dr: Samra Martinez MD STUDY: X-RAY [...] CC: Samra Martinez MD; Nicola Bay MD Conveyor Mechanic: Signed PARACENTESIS WITH US Observed: 10/22/2017 Status: F Source: [place] 11:45 AM [facility] Imaging Services [address] [place] [address] Paracentesis with US MR#: [id number] Acct: [id number] Name: ANITA MCCALLUM Rep #: [id number] : 1945 F 71 From: Samra Martinez MD PCP: Nicola Bay MD Status: REG CLI Study: Paracentesis with US Date of Exam: 10/22/17 Exam# [id number] Ordering Dr: Abimael Castillo MD PROCEDURE: ULTRASOUND [...] 10 mL of lidocaine 1% a 5 Bahraini drainage catheter is introduced in the lower part of the abdomen. 39341 mL of fluid were removed sample sent to lab for evaluation. The patient tolerated the procedure there was no immediate complication. FINDINGS: FLUID PRE-PROCEDURE There is posterior enhancement. The findings appear anechoic. There is no loculation. Volume measurement: 95254 ml. FLUID POST-PROCEDURE Amount of fluid drained: 19540 ml. US/Paracentesis with US IMPRESSION: Successful ultrasound-guided paracentesis. Electronically Signed: Samra Martinez MD at 14:47 EDT Tel , Service support , CC: Nicola Bay MD; Abimael Castillo Conveyor Mechanic: Signed PROTHROMBIN TIME W/INR Collected: 10/20/2017 Status: F Source: [place] 9:58 AM [facility] TYPE CODE TESTS RESULT OUT OF RANGE REFERENCE UNITS LAB L300.4150 11.7-14.9 SECONDS Normal PROTIME 14.0 LAB L300.4200 Normal INR 1.1 Performed By: #### L300.3900, L300.4310 #### [facility] [address] [place], [address] PARTIAL THROMBOPLAST Collected: 10/20/2017 Status: F Source: [place] TIME 9:58 AM [facility] TYPE CODE TESTS RESULT OUT OF RANGE REFERENCE UNITS LAB L300.4310 24.1-36.2 Seconds Normal PTT 30.4 Performed By: #### L300.3900, L300.4310 #### [facility] [address] [place], [address] LIVER PROFILE Collected: 10/20/2017 Status: F Source: [place] 9:58 AM [facility] TYPE CODE TESTS RESULT OUT OF [...] BILI 0.21 Performed By: #### L500.3400 #### [facility] [address] [place], [address] PLATELET COUNT Collected: 10/20/2017 Status: F Source: [place] 9:58 AM [facility] TYPE CODE TESTS RESULT OUT OF RANGE REFERENCE UNITS LAB L100.1900 150-450 K/mm3 Low PLT 78 Performed By: #### L100.1900 #### [facility] [address] [place], [address] ANTINUCLEAR ANTIBODIES Collected: 10/20/2017 Status: F Source: [place] DIRECT 9:58 AM [facility] TYPE CODE TESTS RESULT OUT OF RANGE REFERENCE UNITS LAB L3100.5475 Negative Normal Negative JATIN-DIRECT Result Comment: Performed at: - [facility] [address] [id number] Table Attendant: Abimael Lopez PhD, Phone: [phone] Performed By: #### L3100.5475 #### [facility] (refer to report for specific site) refer to report for address and phone number WOUND CTR HISTORY Observed: 10/18/2017 Status: F Source: [place] AND PHYSICAL 3:06 PM [facility] [address] [place] [address] Wound Ctr History AND Physical 10/18/17 1439 MR#: [id number] Acct: [id number] Name: ANITA MCCALLUM Rep #: [id number] : 1945 71 From: Jose Alfredo Barnett [...] has an appointment with Dr. 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 Lives: Alone Smoking Status: Never smoker Tobacco [...] Date Recorded By Document 10/18/17 12:53 TM [id number] 10/18/17 12:58 TM Wound Center Nurse 1 [Ulcer Assessment] #2 LEFT GONZALEZ ULCER -Combined with other wound No -Current Size (cm) - Length 0.9 WC - Nurse 2 - General Ulcer CM Notes Start: 09/21/17 12:56 Freq: Status: Active Protocol: Activity Type Activity Date Activity User E-Sign Co-Sign Detail Recorded Client Recorded Date Recorded By Document 10/18/17 14:00 JS [id number] 10/18/17 14:09 Neurological: Cranial nerves II-XII grossly [...] ABDOMEN COMPLETE Observed: 10/16/2017 Status: F Source: [place] 10:17 AM [facility] Imaging Services [address] [place] [address] Abdomen Complete MR#: [id number] Acct: [id number] Name: ANITA MCCALLUM Rep #: [id number] : 1945 F 71 From: Atilio Candelaria MD PCP: Nicola Bay MD Status: REG CLI Study: Abdomen Complete Date of Exam: 10/16/17 Exam# [id number] Ordering Dr: Nicola Bay MD STUDY: ABDOMINAL [...] Service support , CC: Nicola Bay MD Conveyor Mechanic: Signed ABD INC DECUB Observed: 10/13/2017 Status: F Source: [place] AND/OR ERECT 12:33 PM [facility] Imaging Services [address] [place] [address] Abd Inc Decub and/or Erect MR#: [id number] Acct: [id number] Name: ANITA MCCALLUM Rep #: [id number] : 1945 F 71 From: Isac Blevins MD PCP: Nicola Bay MD Status: REG CLI Study: Abd Inc Decub and/or Erect Date of Exam: 10/13/17 Exam# [id number] Ordering Dr: Nicola Bay MD STUDY: X-RAY [...] Service support , CC: Nicola Bay MD Conveyor Mechanic: Signed CBC W/DIFF, AUTOMATED Collected: 10/13/2017 Status: F Source: [place] 12:30 PM [facility] TYPE CODE TESTS RESULT OUT OF [...] Lymph 0.46 Performed By: #### L100.0100 #### [facility] [address] [place], [address] COMPREHENSIVE METABOLIC Collected: 10/13/2017 Status: F Source: [facility] 12:30 PM [facility] TYPE CODE TESTS RESULT OUT OF [...] GAP 5 Performed By: #### L500.4050 #### [facility] [address] [facility] [place], [address] LOWER EXT ARTERIAL Observed: 08/06/2017 Status: F Source: [facility] 6:38 AM [facility] Cardiovascular Services [address] [place] [address] 08/06/17 0634 MR#: [id number] Acct: [id number] Name: ANITA MCCALLUM Rep #: [id number] : 1945 71 From: Jose Alfredo Barnett MD Attending Dr: Rob Claire DPM Status: REG RCR Ordering Dr: Date: 08/06/17 Location: [facility] Sex: F C Admitted: Arterial Study [...] MD Date Dictated: 08/06/1734 Date Transcribed: 08/06/17633 Conveyor Mechanic: SYLVAIN Vieyra VENOUS DUPLEX LOWER Observed: 08/02/2017 Status: F Source: [place] EXTREMITY 9:59 PM [facility] RE[facility]IT[facility] Cardiovascular Services [address] [place] [address] Venous Duplex US - Raheel Extrem 08/02/17 1236 MR#: [id number] Acct: [id number] Name: ANITA MCCALLUM Rep #: [id number] : 1945 71 From: Jose Alfredo Barnett [...] preliminary report was called and/or faxed to [facility]. Interpretation Summary Deep veins of the [...] Date Dictated: 08/02/17 1236 Date Transcribed: 08/02/172158 Conveyor Mechanic: Signed WOUND CTR HISTORY Observed: 07/20/2017 Status: F Source: [place] AND PHYSICAL 3:22 PM [facility] RE[facility]ITORY [facility] W[facility]aling Center [address] [place] [address] Wound Ctr History AND Physical 07/20/17 1513 MR#: [id number] Acct: [id number] Name: ANITA MCCALLUM Rep #: [id number] : 1945 71 From: Rob Claire DPM [...] Date Recorded By Document 07/20/17 12:50 BMF [id number] 07/20/17 13:15 F Wound Center Nurse 1 [Ulcer Assessment Protocol: WC.WD.LOC] WC - Nurse 2 - General Ulcer CM Notes Start: 07/20/17 12:30 Freq: Status: Active Protocol: Activity Type Activity Date Activity User E-Sign Co-Sign Detail Recorded Client Recorded Date Recorded By Document 07/20/17 14:03 MW [id number] 07/20/17 14:19 MW Wound Center Nurse 2 [...] Date Recorded By Document 07/20/17 14:03 MW [id number] 07/20/17 14:19 MW Wound Center Nurse 2 [...] layer exposed (Acute) Assessment: See diagnoses 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 SQ/excisional debridement R gonzalez ulcer as [...] F Source: [place] 2 VIEWS 3:05 PM [facility] Imaging Services [address] [place] [address] Tibia AND Fibula 2 Views MR#: [id number] Acct: [id number] Name: ANITA MCCALLUM Rep #: [id number] : 1945 F 71 From: Fabricio Short DO PCP: Nicola Bay MD Status: REG RCR Study: Tibia AND Fibula 2 Views Date of Exam: 07/20/17 Exam# [id number] Ordering Dr: Rob Claire DPM STUDY: X-RAY [...] Fabricio Short DO at 23:52 EST Tel [phone], Service support , CC: Rob Claire DPM; Nicola Bay MD Conveyor Mechanic: Signed CBC W/DIFF, AUTOMATED Collected: 07/20/2017 Status: F Source: [place] 3:03 PM [facility] TYPE CODE TESTS RESULT OUT OF [...] SCANNED Performed By: #### L100.0100, L101.9900 #### [facility] [address] [place], [address] ERYTHROCYTE SED RATE Collected: 07/20/2017 Status: F Source: [place] 3:03 PM [facility] TYPE CODE TESTS RESULT OUT OF RANGE REFERENCE UNITS LAB L102.0000 0-30 mm/hr High SED RATE 37 Performed By: #### L100.0100, L101.9900 #### [facility] [address] [place], [address] HEMOGLOBIN A1C Collected: 07/20/2017 Status: F Source: [place] 3:03 PM [facility] TYPE CODE TESTS RESULT OUT OF RANGE REFERENCE UNITS LAB L501.9985 4.2-6.3 % Normal HGB A1C 6.0 Performed By: #### L501.9985 #### [facility] [address] [place], [address] COMPREHENSIVE METABOLIC Collected: 07/20/2017 Status: F Source: [place] 3:03 PM [facility] TYPE CODE TESTS RESULT OUT OF [...] Performed By: #### L500.4050, L501.6710, L506.0500 #### [facility] [address] [place], [place], [id number] CRP Collected: 07/20/2017 Status: F Source: [place] 3:03 [facility] REPOSITORY TYPE CODE TESTS RESULT [...] Performed By: #### L500.4050, L501.6710, L506.0500 #### [facility] [address] [facility] [place], [place], [address] PREALBUMIN Collected: 07/20/2017 Status: F Source: [place] 3:03 PM [facility] RE[facility] TYPE CODE TESTS RESULT OUT OF REFERENCE UNITS RANGE LAB L506.0500 20.0-40.0 mg/dL Low PREALBUMIN 9.8 Performed By: #### L500.4050, L501.6710, L506.0500 #### [facility] [address] [place], [address] ALLERGIES ALLERGIES DATE TYPE / NAME / CODE REACTION SEVERITY SOURCE CODE 02/03/2018 Drug iodine/[id number](RX Unknown Unknown [place] Allergy/41 NORM) [facility] [id number]([facility]) Repository 02/03/2018 Drug clarithromycin/F0060 Unknown Unknown Reji Allergy/41 88277(RXNORM) [facility] [id number]([facility]) Repository 06/12/2009 DRUG CLARITHROMYCIN [address] [id number]([facility]) 06/12/2009 DRUG POTASSIUM IODIDE [address] [id number]([facility]) ENCOUNTERS ENCOUNTERS ADMIT/DISCHARGE ACCOUNT NUMBER ADMITTING ENCOUNTER LOCATION SOURCE CLASS 07/07/2018 [id number] Ambulatory [facility] ding:MEDOUTP Repository 06/30/2018 [id number] Ambulatory [facility] ding:MEDOUTP Repository 06/29/2018 [id number] Ambulatory [facility] ding:LAB Repository 06/23/2018 [id number] Ambulatory [facility] ding:MEDOUTP Repository 06/16/2018 [id number] Ambulatory [facility] ding:MEDOUTP Repository 06/09/2018 [id number] Ambulatory [facility] ding:MEDOUTP Repository 06/06/2018 [id number] Ambulatory [facility] ding:[facility] Repository 06/06/2018 [id number] Ambulatory [facility] Repository 06/02/2018 [id number] Ambulatory [facility] ding:MEDOUTP Repository 05/27/2018 [id number] Ambulatory [facility] ding:MEDOUTP Repository 05/25/2018 [id number] Ambulatory [facility] ding:LAB Repository 05/19/2018 [id number] Ambulatory [facility] ding:MEDOUTP Repository 05/11/2018 [id number] [facility] Repository 05/05/2018 [id number] Ambulatory [facility] Repository 04/28/2018 [id number] [facility] Repository 04/27/2018/05/20/20 [id number] Ambulatory Levasy Levasy [address] [place] [address] [facility] ding:LAB Repository 04/21/2018 [id number] Ambulatory Reji [facility] ding:[facility] Repository 04/12/2018 [id number] Ambulatory [facility] Repository 03/31/2018 [id number] [facility] Repository 03/29/2018 [id number] Ambulatory [facility]asy [facility]NS Repository 03/24/2018 [id number] [facility] Repository 03/17/2018 [id number] [facility] Repository 03/10/2018 [id number] [facility]ulatory [facility] Repository 03/08/2018/03/09/20 [id number] Ambulatory [address] [place] Repository 03/03/2018 [id number] Ambulatory [facility]asy [facility] ding:US Repository 03/01/2018/03/02/20 [id number] Ambulatory [place] [address] [facility] [place] Repository 03/01/2018 [id number] Ambulatory Reji [facility] ding[facility] Repository 02/28/2018/02/29/20 [id number] Ambulatory Levasy Levasy [address] [place] [address] [facility] ding:NS Repository 02/24/2018 [id number] [facility] Repository 02/22/2018 [id number] Ambulatory [facility]ji [facility]:LAB Repository 02/17/2018 [id number] Ambulatory [facility] Hospital ding:MEDOUTP Repository 02/10/2018 [id number] Ambulatory [facility] Hospital ding:MEDOUTP Repository 02/03/2018 [id number] Ambulatory [facility] ding:US Repository 01/27/2018/01/28/20 [id number] Ambulatory Reji [address] ding:MEDOUTP Repository 01/27/2018 [id number] [facility] Repository 01/26/2018 [id number] [facility] Repository 01/25/2018 [id number] Ambulatory [facility] ding:LAB.FUT Repository URE 01/24/2018/01/25/20 [id number] Ambulatory BBuilding:[address] Repository 01/22/2018 [id number] Becky Wharton [facility] 01/22/2018/01/24/20 [id number] Becky Wharton Inpatient Levasy Reji [address] [place] [address] ding:PCURoom Repository : [id number]: 1 01/22/2018/01/24/20 [id number] Ambulatory BMSBuilding: Levasy [facility] Repository 01/22/2018 [id number] [facility] Repository 01/21/2018 [id number] Ambulatory [facility] Hospital ding:MFPLAB Repository 01/20/2018 [id number] Ambulatory [facility] Hospital ding:US Repository 01/13/2018 [id number] Ambulatory [facility] Hospital ding:US Repository 01/06/2018 [id number] Ambulatory [facility] Hospital ding:US Repository 12/31/2017 [id number] Ambulatory [facility] Hospital ding:MTLAB Repository 12/30/2017 [id number] Ambulatory [facility] Repository 12/29/2017 [id number] [facility]ulatory [facility]WC Repository 12/23/2017 [id number] Ambulatory [facility]:US Repository 12/20/2017 [id number] [facility]OP[facility] Repository 12/17/2017 [id number] Ambulatory [facility]ji [facility] ding:US Repository 12/14/2017/12/19/19 [id number] Ambulatory Reji Levasy [address] [place] [address] [facility]WC Repository 12/10/2017 [id number] Ambulatory [facility] Repository 12/02/2017 [id number] [facility]US Repository 12/01/2017/12/03/19 [id number] Ambulatory [address] Repository 11/25/2017 [id number] [facility]US Repository 11/24/2017 [id number] [facility]ulatory [facility] ding:[facility] Repository 11/24/2017/11/26/19 [id number] Ambulatory [address] Repository 11/22/2017 [id number] [facility]US Repository 11/19/2017 [id number] Ambulatory [facility] Repository 11/17/2017 [id number] Ambulatory [facility] ding:MTLAB Repository 11/16/2017/11/19/19 [id number] Ambulatory Levasy Levasy [address] [place] [address] [facility] ding:WC Repository 11/05/2017 [id number] Ambulatory [facility]asy [facility] ding:[facility] Repository 11/03/2017 [id number] [facility]CT Repository 11/02/2017 [id number] [facility]RAD Repository 10/27/2017 [id number] [facility] Repository 10/22/2017/10/23/19 [id number] Emergency Reji Reji [facility] ding:ED Repository 10/22/2017 [id number] [facility] Rep[facility] 10/18/2017/10/19/19 [id number] Ambulatory Reji Levasy 18 [facility] Hospital ding:WC Repository 10/16/2017 [id number] [facility]US Repository 10/13/2017 [id number] [facility] Rep[facility] 09/17/2017/09/19/19 [id number] Ambulatory Reji Levasy 18 [facility] ding:WC Repository 08/29/2017 [id number] [facility] Rep[facility] 08/17/2017/08/18/19 [id number] Ambulatory Reji Levasy 18 [facility] ding:WC Repository 08/02/2017/08/18/19 [id number] Ambulatory Reji Reji [address] [place] [address] ding:CVS Repository 07/20/2017/07/21/19 [id number] Ambulatory Reji Levasy [address] [place] [address] ding: Repository PAYERS PAYERS ENCOUNTER GUARANTOR PAYER SUBSCRIBER SOURCE 07/07/2018 ANITA Palomares Primary ANITA K Levasy [id number] [facility] Community [id number] [address]Aiz: (410) [id number] [phone] () Date:1886-62-13BE [address] [place] [address] 29636CY: 07/07/2018 Secondary NOT GIVENUNK Levasy Insurance:SELF PAY [facility] Number: Effective Repository Date:2018-05-25 06/30/2018 ANITA Palomares Primary ANITA K Reji [id number] Insurance[facility] KEELERDOB: Community [place] MEDICAREPolicy [id number] Number: Repository 74432Apl: (330 [id number] [phone] (HP) Date:9039-87-78SL [address] [place] [address] 58540EQ: 06/30/2018 Secondary NOT GIVENUNK Levasy Insurance:SELF PAY [facility] Number: Effective Repository Date:2018-05-25 06/29/2018 ANITA Palomares Primary ANITA Palomares Reji [id number] Insurance:[facility] C[facility] KEELERDOB: Community [place] MED[id number] Rep[place] 45092Ckd: (330 [id number] [phone] (HP) Date:5396-15-86HF [address] [place] [address] 70139YQ: 06/29/2018 Secondary NOT GIVENUNK Reji Insurance:SELF PAY [facility] Number: Effective Repository Date:2018-05-23 06/23/2018 ANITA Palomares Primary ANITA Palomares Reji [id number] Insurance:[facility] CARE KEELERDOB: Community [place] MED[place]ARE[id number] Rep[place] 63884Xos: (330 [id number] [phone] () Date:2274-41-75PE [address] [address]PJ: 06/23/2018 Secondary NOT GIVENUNK Levasy Insurance:SELF PAY [facility] Number: Effective Repository Date:2018-05-25 06/16/2018 ANITA Palomares Primary ANITA Palomares Reji [id number] Insurance:[facility] CARE KEELERDOB: Community [place] MED[place] [id number] Repository 69607Agf: (330) [id number] [phone] (HP) Date:6974-09-04PW [address] [place] [address] 98613GO: 06/16/2018 Secondary NOT GIVENUNK Reji Insurance:SELF PAY [facility] Number: Effective Repository Date:2018-04-12 06/09/2018 ANITA K Primary ANITA K Reji [id number] Insurance:[facility] CARE KEELERDOB: Community [place] MEDICARE[place] [facility] [place] Number[place] Repository 56487Tlb: (330) [id number] [phone] (HP) Date:2649-75-70IJ [address] [place] [address] 18217LK: 06/09/2018 Secondary NOT GIVENUNK Reji Insurance:SELF PAY [facility] Number: Effective Repository Date:2018-04-12 06/06/2018 ANITA K Primary ANITA K Reji [id number] Insurance:[facility] CARE KEELERDOB: Community [place] MEDICARE[place] [facility] [place] Number[place] Repository 69576Rvv: (330) [id number] [phone] (HP) Date:3057-16-43JU [address] [place] [address] 46928PH: 06/06/2018 Secondary NOT GIVENUNK Levasy Insurance:SELF PAY [facility] Number: Effective Repository Date:2018-05-26 06/06/2018 ANITA K Primary ANITA Jelani Reji [id number] Insurance:[facility] CARE KEELERDOB: Community [place] MEDICARE[place] 1946[facility][birth year][facility] [place] Number[place] Repository 65355Anm: (330) [id number] [phone] (HP) Date:1279-30-62WW [address] [place] [address] 40817KU: 06/06/2018 Secondary NOT GIVENUNK Levasy Insurance:SELF PAY [facility] Number: Effective Repository Date:2018-06-06 06/02/2018 ANITA K Primary ANITA K Levasy [id number] Insurance:[facility] CARE KEELERDOB: Community [place] MEDICARE[place] 1946[facility][birth year][facility] [place] Number[place] Repository 43695Daq: (330) [id number] [phone] (HP) Date:6490-62-66SC [address] [place] [address] 58826LW: 06/02/2018 Secondary NOT GIVENUNK Reji Insurance:SELF PAY [facility] Number: Effective Repository Date:2018-04-12 05/27/2018 ANITA Palomares Primary ANITA Palomares Reji [id number] Insurance:[facility] CARE KEELERDOB: Community [employer] MEDICAREPolicy [id number] Number: Repository 40899Elm: 330 [id number] [phone] () Date:2337-43-39GH [address] [facility] [address]PB: 05/27/2018 Secondary NOT GIVENUNK Levasy Insurance:SELF PAY [facility] Number: Effective Repository Date:2018-04-12 05/25/2018 ANITA Palomares Primary ANITA Palomares Levasy [id number] Insurance:[facility] CARE KEELERDOB: Community [place] MED[employer]AREPolicy [address] Number: Repository 37124Wjs: (330 [id number] [phone] () Date:3918-51-17AG [address] [facility] [address]QU: 05/25/2018 Secondary NOT GIVENUNK Reji Insurance:SELF PAY [facility] Number: Effective Repository Date:2018-05-25 05/19/2018 ANITA Palomares Primary ANITA Palomares Levasy [id number] Insurance:[facility] CARE KEELERDOB: Community [place] MEDICAREPolicy [address] Number: Repository 44622Tur: 330 [id number] [phone] () Date:6263-16-60CH [address] [place], [place] [address]TF: 05/19/2018 Secondary NOT GIVENUNK Reji Insurance:SELF PAY [facility] Number: Effective Repository Date:2018-04-12 05/11/2018 ANITA Palomares Primary ANITA Palomares Reji [id number] Insurance:[facility] CARE KEELERDOB: Community [employer] MEDICAREPolicy [address] Number: Repository 60843Oue: (330 [id number] [phone] (HP) Date:4279-41-53CK [address] [place] [address] 33252AX: 05/11/2018 Secondary NOT GIVENUNK Levasy Insurance:SELF PAY [facility] Number: Effective Repository Date:2018-04-12 05/05/2018 ANITA Palomares Primary ANITA Jelani Reji [id number] Insurance:[facility] CARE KEELERDOB: Community [place] 1946[place][birth year]-[place] Number: Repository 9[address]Ylv: 330 [id number] [phone] (HP) Date:5965-91-99FB [address] [place] [address] 79901YV: 05/05/2018 Secondary NOT GIVENUNK Reji Insurance:SELF PAY [facility] Number: Effective Repository Date:2018-04-12 04/28/2018 ANITA Palomares Primary ANITA Jelani Reji [id number] Insurance:[facility] CARE KEELERDOB: Community [place] MED[place] 1946-05-[place] Number: Repository 88305Cul: (330 [id number] [phone] (HP) Date:9360-04-91IY [address] [place] [address] 26488YO: 04/28/2018 Secondary NOT GIVENUNK Reji Insurance:SELF PAY [facility] Number: Effective Repository Date:2018-04-12 04/27/2018 ANITA Palomares Primary ANITA Palomares Levasy [id number] Insurance:[employer] CARE KEELERDOB: Community [place] MEDICAREPolicy [address] Number: Repository 87169Ywo: (330 [id number] [phone] (HP) Date:6965-84-56TP [address] [place] [address] 65631JF: 04/27/2018 Secondary NOT GIVENUNK Levasy Insurance:SELF PAY [facility] Number: Effective Repository Date:2018-03-04 04/21/2018 ANITA Palomares Primary ANITA Palomares Reji [id number] Insurance:[facility] CARE KEELERDOB: Community [place] MEDICAREPolicy [facility] [place] Number[place] Repository 78208Pfm: (330 [id number] [phone] (HP) Date:7930-48-24YQ [address] 154[address]FK: 04/21/2018 Secondary NOT GIVENUNK Reji Insurance:SELF PAY [facility] Number: Effective Repository Date:2018-02-18 04/12/2018 ANITA Palomares Primary ANITA Palomares Reji [id number] Insurance:[facility] CARE KEELERDOB: Community [place] MEDICAREPolicy 1946[facility]05[facility] [place] Number[place] Repository 55028Qhu: (330 [id number] [phone] (HP) Date:8466-33-31DY [address] 747[address]XJ: 04/12/2018 Secondary NOT GIVENUNK Levasy Insurance:SELF PAY [facility] Number: Effective Repository Date:2018-02-18 03/31/2018 ANITA Palomares Primary ANITA Palomares Levasy [id number] Insurance:[facility] CARE KEELERDOB: Community [place] MEDICAREPolicy 1946[facility][birth year][facility] [place] Number: Repository 97155Dmz: (330 [id number] [phone] (HP) Date:5839-34-37HB [address] 154[address]JU: 03/31/2018 Secondary NOT GIVENUNK Levasy Insurance:SELF PAY [facility] Number: Effective Repository Date:2018-02-18 03/29/2018 ANITA Palomares Primary ANITA Palomares Levasy [id number] Insurance:[facility] CARE KEELERDOB: Community [place] MEDICAREPolicy 1946[facility][birth year][facility] [place] Number[place] Repository 53799Wxl: (330 [id number] [phone] (HP) Date:1812-49-54HQ [address] [place] [address] 87838VN: 03/29/2018 Secondary NOT GIVENUNK Levasy Insurance:SELF PAY [facility] Number: Effective Repository Date:2018-03-21 03/24/2018 ANITA Palomares Primary ANITA Palomares Reji [id number] Insurance:[employer] CARE KEELERDOB: Community [place] MED[id number] 9[address]Jyl: (330 [id number] [phone] (HP) Date:5984-17-17FS [address] [place] [address] 92167RK: 03/24/2018 Secondary NOT GIVENUNK Levasy Insurance:SELF PAY [facility] Number: Effective Repository Date:2018-02-18 03/17/2018 ANITA Palomares Primary ANITA Palomares Reji [id number] Insurance:[employer] CARE KEELERDOB: Community [place] MEDICARE[id number] 95679Bmx: 330 [id number] [phone] () Date:7203-89-46EI [address] 81100FQ: 03/17/2018 Secondary NOT GIVENUNK Reji Insurance:SELF PAY [facility] Number: Effective Repository Date:2018-02-18 03/10/2018 ANITA Palomares Primary ANITA Palomares Levasy [id number] Insurance:[employer] CARE KEELERDOB: Community [employer] MEDICAREPolicy [id number] Number: Repository 81595Dqv: 330 [id number] [phone] (HP) Date:2115-07-39PU [address] [place] [address] 50426HU: 03/10/2018 Secondary NOT GIVENUNK Levasy Insurance:SELF PAY [facility] Number: Effective Repository Date:2018-02-18 03/03/2018 ANITA Palomares Primary ANITA Palomares Reji [id number] Insurance:[employer] CARE KEELERDOB: Community [place] MEDICAREPolicy [id number] 17052Opj: (330 [id number] [phone] (HP) Date:3942-54-13KM [address] [place] [address] 84164MV: 03/03/2018 Secondary NOT GIVENUNK Reji Insurance:SELF PAY [facility] Number: Effective Repository Date:2018-02-18 03/01/2018 ANITA Palomares Primary ANITA Palomares Reji [id number] Insurance:[employer] CARE KEELERDOB: Community [place] MEDICAREPolicy [id number] 24257Aur: (330) [id number] [phone] (HP) Date:3459-46-25NB [address] [place] [address] 04042NF: 03/01/2018 Secondary NOT GIVENUNK Reji Insurance:SELF PAY [facility] Number: Effective Repository Date:2018-03-01 02/28/2018 ANITA Palomares Primary ANITA Palomares Levasy [id number] Insurance:[employer] CARE KEELERDOB: Community [place] MED[place] 1947-05-[place] Number: Repository 76455Oqf: (330) [id number] [phone] (HP) Date:1869-27-79WZ [address] [place] [address] 13645DQ: 02/28/2018 Secondary NOT GIVENUNK Reji Insurance:SELF PAY [facility] Number: Effective Repository Date:2018-02-25 02/24/2018 ANITA Palomares Primary ANITA Palomares Reji [id number] Insurance:[employer] CARE KEELERDOB: Community [employer] MEDICAREPolicy [id number] Number: Repository 02570Puc: (330) [id number] [phone] (HP) Date:8159-54-35FR [address] [place] [address] 91187MQ: 02/24/2018 Secondary NOT GIVENUNK Levasy Insurance:SELF PAY [facility] Number: Effective Repository Date:2018-01-28 02/22/2018 ANITA Jelani Primary ANITA Palomares Levasy [id number] Insurance:[facility] CARE KEELERDOB: Community [place] MEDICAREPolicy 1946[facility]05[facility] [place] Number[place] Repository 26118Jhh: (330 [id number] [phone] (HP) Date:9250-31-94DR [address] [place] [address] 00271IT: 02/22/2018 Secondary NOT GIVENUNK Levasy Insurance:SELF PAY [facility] Number: Effective Repository Date:2018-02-22 02/17/2018 ANITA K Primary ANITA Jelani Reji [id number] Insurance:[employer] CARE KEELERDOB: Community [place] MEDICAREPolicy 1946[facility]05[facility] [place] Number[place] Repository 26473Vfm: (330 [id number] [phone] (HP) Date:1447-45-43DP [address] [place] [address] 38523KL: 02/17/2018 Secondary NOT GIVENUNK Reji Insurance:SELF PAY [facility] Number: Effective Repository Date:2018-01-28 02/10/2018 ANITA Palomares Primary ANITA Palomares Reji [id number] Insurance:[facility] CARE KEELERDOB: Community [place] MEDICAREPolicy 1946[facility]05[facility] [place] Number[place] Repository 60670Rvt: (330 [id number] [phone] (HP) Date:0457-87-50LN [address] [place] [address] 71478TA: 02/10/2018 Secondary NOT GIVENUNK Levasy Insurance:SELF PAY [facility] Number: Effective Repository Date:2018-01-28 02/03/2018 Anita Palomares Primary Anita Palomares Reji [id number] Insurance:[facility] CARE KeelerDOB: Community [place] MEDICAREPolicy 1946[facility]05[facility] [place] Number[place] Repository 35002Wol: (330 [id number] [phone] (HP) Date:0296-19-95ZJ [address]OX [facility] [address]XB: 02/03/2018 Secondary NOT GIVENUNK Levasy Insurance:SELF PAY [facility] Number: Effective Repository Date:2018-01-13 01/27/2018 Anita Palomares Primary Anita Palomares Levasy [id number] Insurance:[employer] CARE KeelerDOB: Community [place] MEDICAREPolicy 1946[facility]05[facility] [place] Number[place] Repository 34544Ibr: (330 [id number] [phone] (HP) Date:3699-51-08BU [address] [place] [address] 19223PI: 01/27/2018 Secondary NOT GIVENUNK Levasy Insurance:SELF PAY [facility] Number: Effective Repository Date:2018-01-27 01/27/2018 Anita Palomares Primary Anita Palomares Reji [id number] Insurance:[employer] CARE KeelerDOB: Community [place] MEDICAREPolicy 1946[facility]05[facility] [place] Number[place] Repository 58038Pav: (330 [id number] [phone] (HP) Date:6164-15-77ED [address] [place] [address] 92002PN: 01/27/2018 Secondary NOT GIVENUNK Levasy Insurance:SELF PAY [facility] Number: Effective Repository Date:2018-01-13 01/26/2018 Anita Palomarse Primary Anita Palomares Levasy [id number] Insurance:[employer] CARE KeelerDOB: Community [place] MEDICAREPolicy 1947[facility]05[facility] [place] Number[place] Repository 86383Pbw: 330 [id number] [phone] (HP) Date:6934-54-38YS [address] [place] [address] 64741HM: 01/26/2018 Secondary NOT GIVENUNK Reji Insurance:SELF PAY [facility] Number: Effective Repository Date:2018-01-26 01/25/2018 Anita Palomares Primary Anita Palomares Levasy [id number] Insurance:[employer] CARE KeelerDOB: Community [place] MEDICAREPolicy [id number] [address]Exd: 330 [id number] [phone] (HP) Date:1529-84-71FU [address] [place] [address]OT: 01/25/2018 Secondary NOT GIVENUNK Levasy Insurance:SELF PAY [facility] Number: Effective Repository Date:2018-01-25 01/24/2018 ANITA Palomares Primary ANITA K [facility] KEELERDOB: [facility] MEDICARE HMOPolicy [id number] Repository [place] Number: [place], [place] [id number] [place], [place] [address]Gus: (330) Date:2018-01-03 - 08279Pqi: 7473-22-11Rwuj [phone] (HP)Tel: (999) Name:[address] Box (HP) (WP) [address] [place] [address] [phone] (WP) 04429DT: 01/22/2018 Anita Palomares Primary Anita K Reji [id number] Insurance:[employer] CARE elerDOB: Community [place] MEDICARE[place] 1947-05-[place] Number: Repository 70672Kzx: (330 [id number] [phone] (HP) Date:1602-47-05NT [address] [facility] [address]RR: 01/22/2018 Secondary NOT GIVENUNK Reji Insurance:SELF PAY [facility] Number: Effective Repository Date:2018-01-22 01/22/2018 Anita Palomares Primary Anita K Levasy [id number] Insurance:[employer] CARE KeelerDOB: Community [place] MEDICARE[place] 1947-05-11[place] Number: Repository 14937Bng: (330 [id number] [phone] (HP) Date:7764-48-46YS B[address] [facility] [address]XU: 01/22/2018 Secondary NOT GIVENUNK Reji Insurance:SELF PAY [facility] Number: Effective Repository Date:2018-01-22 01/22/2018 Anita Palomares Primary Anita Palomares Reji [id number] Insurance:[employer] CARE KeelerDOB: Community [employer] MEDICAREPolicy [id number] Number: Repository 10726Gij: (330 [id number] [phone] (HP) Date:2153-16-66EP [address] [place] [address] 82020RB: 01/22/2018 Secondary NOT GIVENUNK Reji Insurance:SELF PAY [facility] Number: Effective Repository Date:2018-01-22 01/22/2018 Anita Palomares Primary Anita Palomares Reji [id number] Insurance:[employer] CARE KeelerDOB: Community [employer] MEDICAREPolicy [address] Number: Repository 11047Lww: 330 [id number] [phone] (HP) Date:7307-27-42TL [address] [place] [address] 35422UW: 01/22/2018 Secondary NOT GIVENUNK Reji Insurance:SELF PAY [facility] Number: Effective Repository Date:2018-01-22 01/21/2018 Anita Palomares Primary Anita Palomares Levasy [id number] Insurance:[employer] CARE KeelerDOB: Community [employer] MEDICAREPolicy [id number] Number: Repository 716[address]Yeq: 330 [id number] [phone] (HP) Date:2132-38-44DF [address] [place] [address] 48706JO: 01/21/2018 Secondary NOT GIVENUNK Reji Insurance:SELF PAY [facility] Number: Effective Repository Date:2018-01-21 01/20/2018 Anita Palomares Primary Anita Palomares Levasy [id number] Insurance:[employer] CARE KeelerDOB: Community [place] MEDICAREPolicy [facility] [place] Number[place] Repository 90336Cyh: (330 [id number] [phone] (HP) Date:5698-45-78XG [address] [facility] [address]YS: 01/20/2018 Secondary NOT GIVENUNK Levasy Insurance:SELF PAY [facility] Number: Effective Repository Date:2018-01-13 01/13/2018 Anita Jelani Primary Anita K Levasy [id number] Insurance:[employer] CARE KeelerDOB: Community [employer] MEDICAREPolicy [address] Number: Repository 93462Jys: (330) [id number] [phone] (HP) Date:6027-29-94CE [address] [place] [address] 71651VC: 01/13/2018 Secondary NOT GIVENUNK Levasy Insurance:SELF PAY [facility] Number: Effective Repository Date:2018-01-06 01/06/2018 Anita K Primary Anita K Reji [id number] Insurance:[employer] CARE KeelerDOB: Community [place] MEDICAREPolicy [facility] [place] Number[place] Repository 532[address]Pze: (330) [id number] [phone] (HP) Date:4114-95-35ML [address] [place] [address] 66683IV: 01/06/2018 Secondary NOT GIVENUNK Reji Insurance:SELF PAY [facility] Number: Effective Repository Date:2017-12-30 12/31/2017 Anita Jelani Primary Anita Jelani Levasy [id number] Insurance:[employer] CARE KeelerDOB: Community [place] MEDICAREPolicy 1947[facility]05[facility] [place] Repository 39645Vld: (330) [id number] [phone] (HP) Date:8610-74-98NW [address] [place] [address] 90309HN: 12/31/2017 Secondary NOT GIVENUNK Reji Insurance:SELF PAY [facility] Number: Effective Repository Date:2017-12-31 12/30/2017 Anita Palomares Primary Anita Palomares Reji [id number] Insurance:[employer] CARE KeelerDOB: Community [place] MEDICAREPolicy 1947[facility]05[facility] [place]ository [address]8Bea: (330 [id number] [phone] (HP) Date:8404-02-05AW [address] [place] [address] 75159BX: 12/30/2017 Secondary NOT GIVENUNK Reji Insurance:SELF PAY [facility] Number: Effective Repository Date:2017-12-13 12/29/2017 Anita Palomares Primary Anita Palomares Levasy [id number] Insurance:[employer] CARE KeelerDOB: Community [place] MEDICAREPolicy [facility]05[facility] [place]ository 91483Dmb: (330) [id number] [phone] (HP) Date:8871-12-90PZ [address] [place] [address] 68068AE: 12/29/2017 Secondary NOT GIVENUNK Reji Insurance:SELF PAY [facility] Number: Effective Repository Date:2017-12-19 12/23/2017 Anita aPlomares Primary Anita Palomares Reji [id number] Insurance:[employer] CARE KeelerDOB: Community [place] MEDICAREPolicy [facility]05[facility] [place]ository 32607Pto: (330) [id number] [phone] (HP) Date:6719-24-13XA [address] [place] [address] 26121KH: 12/23/2017 Secondary NOT GIVENUNK Reji Insurance:SELF PAY [facility] Number: Effective Repository Date:2017-12-13 12/20/2017 Anita Palomares Primary Anita Palomares Reji [id number] Insurance:[employer] CARE KeelerDOB: Community [place] MEDICAREPolicy [facility]05[facility] [place] Repository 45687Jfs: (330) [id number] [phone] (HP) Date:6275-88-65BH [address] [facility] [address]ME: 12/20/2017 Secondary NOT GIVENUNK Reji Insurance:SELF PAY [facility] Number: Effective Repository Date:2017-12-02 12/17/2017 Anita Palomares Primary Anita Palomares Reji [id number] Insurance:[employer] CARE KeelerDOB: Community [place] MEDICAREPolicy [facility]05[facility] [place] Repository 00106Vtb: (330) [id number] [phone] (HP) Date:7797-30-10KP [address] [place] [address] 55782UU: 12/17/2017 Secondary NOT GIVENUNK Levasy Insurance:SELF PAY [facility] Number: Effective Repository Date:2017-11-17 12/14/2017 Anita Palomares Primary Anita Palomares Levasy [id number] Insurance:[employer] CARE KeelerDOB: Community [place] MEDICAREPolicy [facility]05[facility] [place]ository 36452Mad: (330) [id number] [phone] (HP) Date:3226-83-50SB [address] [place] [address] 17194UE: 12/14/2017 Secondary NOT GIVENUNK Levasy Insurance:SELF PAY [facility] Number: Effective Repository Date:2017-11-19 12/10/2017 Anita Palomares Primary Anita Palomares Reji [id number] Insurance:[employer] CARE KeelerDOB: Community [place] MEDICARE[place] [facility]05[facility] [place] Repository 46961Yfv: (330 [id number] [phone] (HP) Date:5616-60-15CS [address] [place] [address] 55171UI: 12/10/2017 Secondary NOT GIVENUNK Reji Insurance:SELF PAY [facility] Number: Effective Repository Date:2017-12-02 12/02/2017 Anita Palomares Primary Anita Palomares Levasy [id number] Insurance:[employer] CARE KeelerDOB: Community [employer] MEDICAREPolicy [id number] Number: Repository [id number]: [phone] [id number] [phone] (HP) Date:[id number] [facility] [place] [address]PX: 12/02/2017 Secondary NOT GIVENUNK Levasy Insurance:SELF PAY [facility] Number: Effective Repository Date:2017-11-17 11/25/2017 Anita K Primary Anita K Reji [id number] Insurance:[employer] KeelerDOB: Community [employer] MED[employer]AREPolicy [id number] Number: Repository [id number]: ([phone] [id number] [phone] (HP) Date:[id number] [place] [address]ES: 11/25/2017 Secondary NOT GIVENUNK Levasy Insurance:SELF PAY [facility] Number: Effective Repository Date:2017-11-24 11/24/2017 Anita K Primary Anita K Levasy [id number] Insurance:[employer] KeelerDOB: Community [employer] MED[employer]AREPolicy [address] Number: Repository [id number]: (330) [id number] [phone] (HP) Date:1300-33-83VV [address] [place] [address] 51368XE: 11/24/2017 Secondary NOT GIVENUNK Reji Insurance:SELF PAY [facility] Number: Effective Repository Date:2017-11-24 11/22/2017 Anita K Primary Anita K Levasy [id number] [facility] KeelerD[facility]: Community [employer] 1946[facility][birth year][facility] [place] Number: Repository [id number]: (330) [id number] [phone] (HP) Date:7485-14-32TO [address] [place] [address] 32898RL: 11/22/2017 Secondary NOT GIVENUNK Reji Insurance:SELF PAY [facility] Number: Effective Repository Date:2017-11-19 11/19/2017 Anita Palomares Primary Anita Palomares Reji [id number] Insurance:[employer] KeelerDOB: Community [employer] 1946-05[facility] [place] Number: Repository [address]576Rte: (330 [id number] [phone] (HP) Date:5201-29-27PP [address] [place] [address] 53895II: 11/19/2017 Secondary NOT GIVENUNK Levasy Insurance:SELF PAY [facility] Number: Effective Repository Date:2017-11-17 11/17/2017 Anita Palomares Primary Anita Palomares Reji [id number] Insurance:[employer] KeelerDOB: Community [employer] 1946[facility][birth year][facility] [place] Number: Repository 67[address]Jmq: (330) [id number] [phone] (HP) Date:9039-19-41MY [address] [place] [address] 09150NH: 11/17/2017 Secondary NOT GIVENUNK Reji Insurance:SELF PAY [facility] Number: Effective Repository Date:2017-11-17 11/16/2017 Anita Palomares Primary Anita Palomares Levasy [id number] Insurance:[employer] KeelerDOB: Community [employer] 1946-05[facility] [place] Number: Repository [address]Okt: (330) [id number] [phone] (HP) Date:2116-99-19YV [address] [place] [address] 53755ST: 11/16/2017 Secondary NOT GIVENUNK Levasy Insurance:SELF PAY [facility] Number: Effective Repository Date:2017-10-19 11/05/2017 Anita Palomares Primary Anita Palomares Levasy [id number] Insurance:[employer] KeelerDOB: Community [employer] 1946-05[facility] [place] Number: Repository [address]Mho: (330) [id number] [phone] (HP) Date:3220-52-23FY [facility] [place] [address]LA: 11/05/2017 Secondary NOT GIVENUNK Levasy Insurance:SELF PAY [facility] Number: Effective Repository Date:2017-11-05 11/03/2017 Anita Palomares Primary Anita K Reji [id number] Insurance:[employer] KeelerDOB: Community [employer] [id number] Number: Repository [id number]: (330 [id number] [phone] (HP) Date:3277-23-20CA [address] [facility] [place] [address]GD: 11/03/2017 Secondary NOT GIVENUNK Reji Insurance:SELF PAY [facility] Number: Effective Repository Date:2017-11-02 11/02/2017 Anita Palomares Primary Anita Jelani Levasy [id number] Insurance:[employer] KeelerDOB: Community [employer] [id number] Number: Repository [address]Yfp: (330) [id number] [phone] (HP) Date:3038-30-49WJ [address] [facility] [address]BZ: 11/02/2017 Secondary NOT GIVENUNK Levasy Insurance:SELF PAY [facility] Number: Effective Repository Date:2017-11-02 10/27/2017 Anita Palomares Primary Anita K Levasy [id number] Insurance:[employer] KeelerDOB: Community [employer] [id number] Number: Repository [address]Tsc: (330 [id number] [phone] (HP) Date:4632-35-10BS [address] [facility] [address]SR: 10/27/2017 Secondary NOT GIVENUNK Levasy Insurance:SELF PAY [facility] Number: Effective Repository Date:2017-10-25 10/22/2017 Anita Palomares Primary Anita K Reji [id number] Insurance:[employer] KeelerDOB: Community [employer] [address] Number: Repository [address]Qmh: (330) [id number] [phone] (HP) Date:5016-06-63HS [place] [address]FQ: 10/22/2017 Secondary NOT GIVENUNK Levasy Insurance:SELF PAY [facility] Number: Effective Repository Date:2017-10-22 10/22/2017 Anita K Primary Anita K Reji [id number] Insurance:[employer] KeelerDOB: Community [employer] [address] Number: Repository [address]Ogt: (330) [id number] [phone] (HP) Date:1021-38-66FT [address] [place] [address] 65377IJ: 10/22/2017 Secondary NOT GIVENUNK Reji Insurance:SELF PAY [facility] Number: Effective Repository Date:2017-10-19 10/18/2017 Anita K Primary Anita K Reji [id number] Insurance:[employer] KeelerDOB: Community [employer] [address] Number: Repository [address]Yvu: (330 [id number] [phone] (HP) Date:8829-40-22QS [address] [place] [address] 38655WM: 10/18/2017 Secondary NOT GIVENUNK Reji Insurance:SELF PAY [facility] Number: Effective Repository Date:2017-09-19 10/16/2017 Anita K Primary Anita K Reji [id number] Insurance:[employer] KeelerDOB: Community [employer] [address] Number: Repository [id number]: (330 [id number] [phone] (HP) Date:5624-09-43QP [address] [place] [address] 39085RY: 10/16/2017 Secondary NOT GIVENUNK Reji Insurance:SELF PAY [facility] Number: Effective Repository Date:2017-10-14 10/13/2017 Anita Palomares Primary Anita Palomares Reji [id number] Insurance:[employer] KeelerDOB: Community [employer] 1946[facility][birth year][facility] [place] Number: Repository [address]Mfn: 330 [id number] [phone] () Date:3339-16-02OG [address] [place] [address] 61334YH: 10/13/2017 Secondary NOT GIVENUNK Reji Insurance:SELF PAY [facility] Number: Effective Repository Date:2017-10-13 09/17/2017 Anita Palomares Primary Anita Palomares Reji [id number] Insurance:[employer] KeelerDOB: Community [employer] 1946[facility][birth year][facility] [place] Number: Repository [address]Ddo: (330 [id number] [phone] () Date:7656-08-16SV [address] [place] [address] 38576UM: 09/17/2017 Secondary NOT GIVENUNK Levasy Insurance:SELF PAY [facility] Number: Effective Repository Date:2017-08-19 08/29/2017 Anita Palomares Primary Anita Palomares Levasy [id number] Insurance:[employer] KeelerDOB: Community [employer] 1946[facility][birth year][facility] [place] Number: Repository [address]Urn: (330 [id number] [phone] () Date:7558-44-85MX [address] [place] [address] 89865VM: 08/29/2017 Secondary NOT GIVENUNK Levasy Insurance:SELF PAY [facility] Number: Effective Repository Date:2017-08-19 08/17/2017 Anita Palomares Primary Anita Palomares Reji [id number] Insurance:[employer] KeelerDOB: Community [employer] 1946[facility][birth year][facility] [place] Number: Repository [id number]: (330 [id number] [phone] (HP) Date:6424-09-33CH [address] [place] [address] 60989UG: 08/17/2017 Secondary NOT GIVENUNK Reji Insurance:SELF PAY [facility] Number: Effective Repository Date:2017-07-27 08/02/2017 Anita Palomares Primary Anita K Levasy [id number] Insurance:[employer] KeelerDOB: Community [id number] [address]Uin: 330 [id number] [phone] () Date:3546-47-40KZ [address] [place] [address] 12981CR: 08/02/2017 Secondary NOT GIVENUNK Levasy Insurance:SELF PAY [facility] Number: Effective Repository Date:2017-07-22 07/20/2017 Anita K Primary Anita Jelani Reji [id number] Insurance:[employer] KeelerDOB: Community [id number] [address]Jfh: (330 [id number] [phone] () Date:5262-54-34DU [address] [place] [address] 68429KU: 07/20/2017 Secondary NOT GIVENUNK Reji Insurance:SELF PAY [facility] Number: Effective Repository Date:2017-07-20
== END ==
PROVIDERS: Family Provider Family Medicine; PCP Family Medicine; Referring Provider Family Medicine; Visit Provider Family Medicine
DX: R01.1 Cardiac murmur, unspecified (principal)
CPT/HCPCS: 93306; Q9957; A4216; C8929

== ENCOUNTER → 2018-06-09 11:04 | Outpatient (CLI) | payer MEDICARE, SELFPAY ==
[2018-06-02 10:45] VITALS: BMI 30.2
--- NOTE | 2018-06-09 11:06 | US_ITS ---
PROCEDURE: Ultrasound guided paracentesis. DATE OF EXAMINATION: June 09, 2018. INDICATION: Female, 72 years old. Ascites. PHYSICIAN: Rigo Britt M.D. TECHNIQUE: The risks, benefits, and alternatives to the procedure were explained to the patient. The specific risks of bleeding, infection, and damage to bowel were detailed and accepted. Witnessed informed consent was obtained. The abdomen was ultrasonographically surveyed. An appropriate pocket of fluid was identified at the right lower quadrant. The skin were cleaned and prepped in the usual sterile fashion. Using ultrasound guidance, the peritoneal cavity was accessed with a 5-Palestinian paracentesis needle/catheter system. The trocar was removed. A total of 4650 ml of harsh-colored fluid were removed from the peritoneal cavity. The catheter was removed and a sterile dressing was applied. The procedure was well tolerated. US/Paracentesis with US IMPRESSION: Ultrasound guided paracentesis. Electronically Signed: Rigo Britt MD at 13:55 EST Tel [phone], Service support ,
[2018-06-09 11:30] VITALS: BP 109/56; BP 110/56; BP 112/51; PULSE 70; PULSE 71; PULSE 72; RESP 16; RESP 18; O2SAT 100; O2SAT 96; BMI 30.2
[2018-06-09 12:42] VITALS: BP 97/51; PULSE 69; RESP 16; TEMP 37.1; O2SAT 98; BMI 29.4
[2018-06-09] MEDS: Albumin Human 25% (100 mL) 25 GM/100 ML BAG IV (13:20)
== END ==
LOC: US 11:05 → MEDOUTP 12:13
PROVIDERS: Family Provider Family Medicine; PCP Family Medicine; Referring Provider Internal Medicine Gastroenterology; Visit Provider Internal Medicine Gastroenterology
DX: K74.60 Unspecified cirrhosis of liver (principal); R18.8 Other ascites
CPT/HCPCS: 96365; 96366; 49083; P9047; A4216

== ENCOUNTER → 2018-06-16 10:16 | Outpatient (CLI) | payer MEDICARE, SELFPAY ==
[2018-06-09 12:42] VITALS: BMI 29.4
--- NOTE | 2018-06-16 10:19 | US_ITS ---
PROCEDURE: ULTRASOUND GUIDED PARACENTESIS CLINICAL HISTORY: Female, 72 years old. CONSENT: Time-Out Called: Yes. Consent form signed: Yes. PT-PTT Levels Checked: Yes. SEDATION: no TECHNIQUE: FINDINGS: Following proper aseptic preparation and local anesthesia, 5 Burmese catheter was inserted in the right side of the abdomen. 3410 ml of pale clear yellow fluid were aspirated. The patient tolerated the procedure well. Electronically Signed: Danish Gao, at 15:40 EST Tel , Service support , US/Paracentesis with US
[2018-06-16 10:38] VITALS: BP 138/71; PULSE 97; RESP 16; O2SAT 97; BMI 31.8
[2018-06-16 11:38] VITALS: BP 129/74; BP 150/75; PULSE 87; PULSE 90; RESP 16; O2SAT 97; O2SAT 98
== END ==
PROVIDERS: Family Provider Family Medicine; PCP Family Medicine; Referring Provider Internal Medicine Gastroenterology; Visit Provider Internal Medicine Gastroenterology
DX: K74.60 Unspecified cirrhosis of liver (principal)
CPT/HCPCS: 49083

== ENCOUNTER → 2018-06-23 10:08 | Outpatient (CLI) | payer MEDICARE, SELFPAY ==
[2018-05-19 11:29] VITALS: BMI 29.9
[2018-06-16 10:38] VITALS: BMI 31.8
--- NOTE | 2018-06-23 10:11 | US_ITS ---
PROCEDURE: Ultrasound guided paracentesis. DATE OF EXAMINATION: 2018. INDICATION: Female, 72 years old. Ascites. PHYSICIAN: Rigo Britt M.D. TECHNIQUE: The risks, benefits, and alternatives to the procedure were explained to the patient. The specific risks of bleeding, infection, and damage to bowel were detailed and accepted. Witnessed informed consent was obtained. The abdomen was ultrasonographically surveyed. An appropriate pocket of fluid was identified at the right lower quadrant. The skin were cleaned and prepped in the usual sterile fashion. Using ultrasound guidance, the peritoneal cavity was accessed with a 5-Swedish paracentesis needle/catheter system. The trocar was removed. A total of 3550 ml of harsh-colored fluid were removed from the peritoneal cavity. The catheter was removed and a sterile dressing was applied. The procedure was well tolerated. US/Paracentesis with US IMPRESSION: Ultrasound guided paracentesis. Electronically Signed: Rigo Britt MD at 12:45 EST Tel [phone], Service support ,
[2018-06-23 11:39] VITALS: BP 129/61; BP 149/63; PULSE 70; RESP 16; O2SAT 87; O2SAT 99
== END ==
PROVIDERS: Family Provider Family Medicine; PCP Family Medicine; Referring Provider Internal Medicine Gastroenterology; Visit Provider Internal Medicine Gastroenterology
DX: K74.60 Unspecified cirrhosis of liver (principal)
CPT/HCPCS: 49083

== ENCOUNTER 2018-06-29 12:54 | Outpatient (RCR) | payer MEDICARE, SELFPAY ==
[2018-05-19 11:29] VITALS: BMI 29.9
[2018-06-16 10:38] VITALS: BMI 31.8
[2018-06-29 13:51] LABS: Anion Gap 8 (5-15); BUN 67 mg/dL (7-18); BUN/Creat Ratio 36.2 RATIO (10-20); Chloride 108 mmol/L (98-107); Creatinine, Serum 1.85 mg/dL (0.55-1.02); EST Glomerular Filtration Rate 29 mL/min (>60); Est Glom Filt Rate - Afr Amer 35 mL/min (>60); Glucose 296 mg/dL (74-106); Potassium 4.9 mmol/L (3.5-5.1); Sodium Level 138 mmol/L (136-145)
[2018-06-29 13:54] LABS: Partial Thromboplast Time 31.9 Seconds (24.1-36.2); Prothrombin Time (Protime)PT. 13.2 SECONDS (11.7-14.9)
== END 2018-06-29 13:54 | disposition home or self-care (01) ==
LOC: LAB 12:54
PROVIDERS: Family Provider Family Medicine; PCP Family Medicine; Referring Provider Internal Medicine Gastroenterology; Visit Provider Internal Medicine Gastroenterology
DX: K74.60 Unspecified cirrhosis of liver (principal); R18.8 Other ascites; Z79.899 Other long term (current) drug therapy
CPT/HCPCS: 36415; 80048; 85610; 85730

== ENCOUNTER → 2018-06-30 09:52 | Outpatient (CLI) | payer MEDICARE, SELFPAY ==
[2018-05-19 11:29] VITALS: BMI 29.9
[2018-06-16 10:38] VITALS: BMI 31.8
--- NOTE | 2018-06-30 09:54 | US_ITS ---
PROCEDURE: Ultrasound guided paracentesis. DATE OF EXAMINATION: June 30, 2018. INDICATION: Female, 72 years old. Ascites. PHYSICIAN: Rigo Britt M.D. TECHNIQUE: The risks, benefits, and alternatives to the procedure were explained to the patient. The specific risks of bleeding, infection, and damage to bowel were detailed and accepted. Witnessed informed consent was obtained. The abdomen was ultrasonographically surveyed. An appropriate pocket of fluid was identified at the right lower quadrant. The skin were cleaned and prepped in the usual sterile fashion. Using ultrasound guidance, the peritoneal cavity was accessed with a 5-Kosovan paracentesis needle/catheter system. The trocar was removed. A total of 6900 ml of harsh-colored fluid were removed from the peritoneal cavity. The catheter was removed and a sterile dressing was applied. The procedure was well tolerated. US/Paracentesis with US IMPRESSION: Ultrasound guided paracentesis. Electronically Signed: Rigo Britt MD at 11:28 EST Tel [phone], Service support ,
[2018-06-30 10:15] VITALS: BP 131/57; BP 143/65; BP 145/67; PULSE 79; PULSE 82; RESP 16; RESP 18; O2SAT 95; O2SAT 96; O2SAT 97
[2018-06-30] MEDS: Albumin Human 25% (100 mL) 25 GM/100 ML BAG IV (11:16)
[2018-06-30 11:20] VITALS: BP 119/54; PULSE 85; RESP 16; TEMP 36.4; O2SAT 99; BMI 31.4
[2018-06-30] MEDS: Albumin Human 25% (50 mL) 12.5 GM/50 ML IV.SOLN IV (12:43)
== END ==
PROVIDERS: Family Provider Family Medicine; PCP Family Medicine; Referring Provider Internal Medicine Gastroenterology; Visit Provider Internal Medicine Gastroenterology
DX: K74.60 Unspecified cirrhosis of liver (principal)
CPT/HCPCS: 96365; 96366 ×2; 49083; P9047; A4216

== ENCOUNTER → 2018-07-07 10:06 | Outpatient (CLI) | payer MEDICARE, SELFPAY ==
[2018-05-19 11:29] VITALS: BMI 29.9
[2018-06-30 11:20] VITALS: BMI 31.4
--- NOTE | 2018-07-07 10:09 | US_ITS ---
PROCEDURE: Ultrasound guided paracentesis. DATE OF EXAMINATION: July 07, 2018.. INDICATION: Female, 72 years old. Ascites. PHYSICIAN: Rigo Britt M.D. TECHNIQUE: The risks, benefits, and alternatives to the procedure were explained to the patient. The specific risks of bleeding, infection, and damage to bowel were detailed and accepted. Witnessed informed consent was obtained. The abdomen was ultrasonographically surveyed. An appropriate pocket of fluid was identified at the right lower quadrant. The skin were cleaned and prepped in the usual sterile fashion. Using ultrasound guidance, the peritoneal cavity was accessed with a 5-Tunisian paracentesis needle/catheter system. The trocar was removed. A total of 7150 ml of harsh-colored fluid were removed from the peritoneal cavity. The catheter was removed and a sterile dressing was applied. The procedure was well tolerated. US/Paracentesis with US IMPRESSION: Ultrasound guided paracentesis. Electronically Signed: Rigo Britt MD at 13:34 EST Tel [phone], Service support ,
[2018-07-07 11:28] VITALS: BP 120/66; BP 129/63; BP 134/72; PULSE 91; PULSE 97; RESP 16; RESP 61; O2SAT 100; O2SAT 98
[2018-07-07] MEDS: Albumin Human 25% (100 mL) 25 GM/100 ML BAG IV (11:54)
[2018-07-07 11:55] VITALS: BP 107/49; PULSE 90; RESP 16; TEMP 36.3; O2SAT 100; BMI 28.5
[2018-07-07] MEDS: Albumin Human 25% (50 mL) 12.5 GM/50 ML IV.SOLN IV (13:27)
--- OUTSIDE RECORDS SUMMARY | 2018-09-11 00:12 | XMS RPT_ITS ---
:1945 Author Organization OHIP Support Name Relationship Address Phone NEIL MANTILLA Unavailable [address] + [place] [address] GAGE KIMBLE Unavailable [address] + [place] [address] R Unavailable Unavailable Unavailable DAVIDNEIL ANSARI Unavailable [address] + [place] [address] GAGE KIMBLE Unavailable [address] + [place] [address] R Unavailable Unavailable Unavailable DAVIDNEIL ANSARI Unavailable [address] + [place] [address] GAGE KIMBLE Unavailable [address] + [place] [address] R Unavailable Unavailable Unavailable DAVIDNEIL ANSARI Unavailable [address] + [place] [address] GAGE KIMBLE Unavailable [address] + [place] [address] R Unavailable Unavailable Unavailable DAVIDNEIL ANSARI Unavailable [address] + [place] [address] GAGE KIMBLE Unavailable [address] + [place] [address] R Unavailable Unavailable Unavailable DAVIDELAN NEIL Unavailable [address] + [place] [address] GAGE KIMBLE Unavailable [address] + [place] [address] R Unavailable Unavailable Unavailable DAVIDNEIL ANSARI Unavailable [address] + [place] [address] GAGE KIMBLE Unavailable [address] + [place] [address] R Unavailable Unavailable Unavailable NEIL MANTILLA Unavailable [address] + [place] [address] GAGE KIMBLE Unavailable [address] + [place] [address] R Unavailable Unavailable Unavailable NEIL MANTILLA Unavailable [address] + [place] [address] GAGE KIMBLE Unavailable [address] + [place] [address] R Unavailable Unavailable Unavailable NEIL MANTILLA Unavailable [address] + [place] [address] GAGE KIMBLE Unavailable [address] + [place] [address] R Unavailable Unavailable Unavailable NEIL MANTILLA Unavailable [address] + [place] [address] GAGE KIMBLE Unavailable [address] + [place] [address] R Unavailable Unavailable Unavailable NEIL MANTILLA Unavailable [address] + [place] [address] GAGE KIMBLE Unavailable [address] + [place] [address] R Unavailable Unavailable Unavailable NEIL MANTILLA Unavailable [address] + [place] [address] GAGE KIMBLE Unavailable [address] + [place] [address] R Unavailable Unavailable Unavailable NEIL MANTILLA Unavailable [address] + [place] [address] GAGE KIMBLE Unavailable [address] + [place] [address] R Unavailable Unavailable Unavailable NEIL MANTILLA Unavailable [address] + [place] [address] GAGE KIMBLE Unavailable [address] + [place] [address] R Unavailable Unavailable Unavailable NEIL MANTILLA Unavailable [address] + [place] [address] GAGE KIMBLE Unavailable [address] + [place] [address] R Unavailable Unavailable NEIL Matute Unavailable [address] + [place] [address] GAGE KIMBLE Unavailable [address] + [place] [address] R Unavailable Unavailable Unavailable NEIL MANTILLA Unavailable [address] + [place] [address] GAGE KIMBLE Unavailable [address] + [place] [address] R Unavailable Unavailable Unavailable NEIL MANTILLA Unavailable [address] + [place] [address] GAGE KIMBLE Unavailable [address] + [place] [address] R Unavailable Unavailable Unavailable NEIL MANTILLA Unavailable [address] + [place] [address] GAGE KIMBLE Unavailable [address] + [place] [address] R Unavailable Unavailable Unavailable NEIL MANTILLA Unavailable [address] + [place] [address] GAGE KIMBLE Unavailable [address] + [place] [address] R Unavailable Unavailable Unavailable NEIL MANTILLA Unavailable [address] + [place] [address] GAGE KIMBLE Unavailable [address] + [place] [address] R Unavailable Unavailable Unavailable NEIL MANTILLA Unavailable [address] + [place] [address] GAGE KIMBLE Unavailable [address] + [place] [address] R Unavailable Unavailable Unavailable NEIL MANTILLA Unavailable [address] + [place] [address] GAGE KIMBLE Unavailable [address] + [place] [address] R Unavailable Unavailable Unavailable NEIL MANTILLA Unavailable [address] + [place] [address] GAGE KIMBLE Unavailable [address] + [place] [address] R Unavailable Unavailable Unavailable NEIL MANTILLA Unavailable [address] + [place] [address] GAGE KIMBLE Unavailable [address] + [place] [address] R Unavailable Unavailable Unavailable NEIL MANTILLA Unavailable [address] + [place] [address] GAGE KIMBLE Unavailable [address] + [place] [address] R Unavailable Unavailable Unavailable NEIL MANTILLA Unavailable [address] + [place] [address] GAGE KIMBLE Unavailable [address] + [place] [address] R Unavailable Unavailable Unavailable NEIL MANTILLA Unavailable [address] + [place] [address] GAGE KIMBLE Unavailable [address] + [place] [address] R Unavailable Unavailable Unavailable NEIL MANTILLA Unavailable [address] + [place] [address] GAGE KIMBLE Unavailable [address] + [place] [address] R Unavailable Unavailable Unavailable NEIL MANTILLA Unavailable [address] + [place] [address] GAGE KIMBLE Unavailable [address] + [place] [address] R Unavailable Unavailable Unavailable NEIL MANTILLA Unavailable [address] + [place] [address] GAGE KIMBLE Unavailable [address] + [place] [address] R Unavailable Unavailable Unavailable NEIL MANTILLA Unavailable [address] + [place] [address] GAGE KIMBLE Unavailable [address] + [place] [address] R Unavailable Unavailable Unavailable NEIL MANTILLA Unavailable [address] + [place] [address] GAGE KIMBLE Unavailable [address] + [place] [address] R Unavailable Unavailable Unavailable NEIL MANTILLA Unavailable [address] + [facility] [place] [address] GAGE KIMBLE Unavailable [address] + [place] [address] R Unavailable Unavailable Unavailable NEIL MANTILLA Unavailable [address] + [place] [address] GAGE KIMBLE Unavailable [address] + [place] [address] R Unavailable Unavailable Unavailable NEIL MANTILLA Unavailable Unavailable + NEIL MANTILLA Unavailable Unavailable + GAGE KIMBLE Unavailable Unavailable + NEIL MANTILLA Unavailable [address] + [place] [address] GAGE KIMBLE Unavailable [address] + [place] [address] R Unavailable Unavailable Unavailable NEIL MANTILLA Unavailable [address] + [place] [address] GAGE KIMBLE Unavailable [address] + [place] [address] R Unavailable Unavailable Unavailable NEIL MANTILLA Unavailable [address] + [place] [address] GAGE KIMBLE Unavailable [address] + [place] [address] R Unavailable Unavailable Unavailable NEIL MANTILLA Unavailable [address] + [place] [address] GAGE KIMBLE Unavailable [address] + [place] [address] R Unavailable Unavailable Unavailable NEIL MANTILLA Unavailable [address] + [place] [address] GAGE KIMBLE Unavailable [address] + [place] [address] R Unavailable Unavailable Unavailable NEIL MANTILLA Unavailable [address] + [place] [address] GAGE KIMBLE Unavailable [address] + [place] [address] R Unavailable Unavailable NEIL Matute Unavailable [address] + [place] [address] GAGE KIMBLE Unavailable [address] + [place] [address] R Unavailable Unavailable Unavailable NEIL MANTILLA Unavailable [address] + [place] [address] GAGE KIMBLE Unavailable [address] + [place] [address] R Unavailable Unavailable Unavailable NEIL MANTILLA Unavailable [address] + [place] [address] GAGE KIMBLE Unavailable [address] + [place] [address] R Unavailable Unavailable Unavailable NEIL MANTILLA Unavailable [address] + [place] [address] GAGE KIMBLE Unavailable [address] + [place] [address] R Unavailable Unavailable Unavailable NEIL MANTILLA Unavailable [address] + [place] [address] GAGE KIMBLE Unavailable [address] + [place] [address] R Unavailable Unavailable Unavailable NEIL MANTILLA Unavailable [address] + [place] [address] GAGE KIMBLE Unavailable [address] + [place] [address] R Unavailable Unavailable Unavailable NEIL MANTILLA Unavailable [address] + [place] [address] GAGE KIMBLE Unavailable [address] + [place] [address] R Unavailable Unavailable Unavailable NEIL MANTILLA Unavailable [address] + [place] [address] GAGE KIMBLE Unavailable [address] + [place] [address] R Unavailable Unavailable Unavailable NEIL MANTILLA Unavailable [address] + [place] [address] GAGE KIMBLE Unavailable [address] + [place] [address] R Unavailable Unavailable Unavailable NEIL MANTILLA Unavailable [address] + [place] [address] GAGE KIMBLE Unavailable [address] + [place] [address] R Unavailable Unavailable Unavailable NEIL MANTILLA Unavailable [address] + [place] [address] GAGE KIMBLE Unavailable [address] + [place] [address] R Unavailable Unavailable Unavailable NEIL MANTILLA Unavailable [address] + [place] [address] GAGE KIMBLE Unavailable [address] + [place] [address] R Unavailable Unavailable Unavailable NEIL MANTILLA Unavailable [address] + [place] [address] GAGE KIMBLE Unavailable [address] + [place] [address] R Unavailable Unavailable Unavailable NEIL MANTILLA Unavailable [address] + [place] [address] GAGE KIMBLE Unavailable [address] + [place] [address] R Unavailable Unavailable Unavailable NEIL MANTILLA Unavailable [address] + [place] [address] GAGE KIMBLE Unavailable [address] + [place] [address] R Unavailable Unavailable Unavailable NEIL MANTILLA Unavailable [address] + [place] [address] GAGE KIMBLE Unavailable [address] + [place] [address] R Unavailable Unavailable Unavailable NEIL MANTILLA Unavailable [address] + [place] [address] GAGE KIMBLE Unavailable [address] + [place] [address] R Unavailable Unavailable Unavailable NEIL MANTILLA Unavailable [address] + [place] [address] GAGE KIMBLE Unavailable [address] + [place] [address] R Unavailable Unavailable NEIL Matute Unavailable [address] + [place] [address] GAGE KIMBLE Unavailable [address] + [place] [address] R Unavailable Unavailable Unavailable NEIL MANTILLA Unavailable [address] + [place] [address] GAGE KIMBLE Unavailable [address] + [place] [address] R Unavailable Unavailable Unavailable NEIL MANTILLA Unavailable [address] + [place] [address] GAGE KIMBLE Unavailable [address] + [place] [address] R Unavailable Unavailable Unavailable NEIL MANTILLA Unavailable [address] + [place] [address] GAGE KIMBLE Unavailable [address] + [place] [address] R Unavailable Unavailable Unavailable NEIL MANTILLA Unavailable [address] + [place] [address] GAGE KIMBLE Unavailable [address] + [place] [address] R Unavailable Unavailable Unavailable NEIL MANTILLA Unavailable [address] + [place] [address] GAGE KIMBLE Unavailable [address] + [place] [address] R Unavailable Unavailable Unavailable NEIL MANTILLA Unavailable [address] + [place] [address] GAGE KIMBLE Unavailable [address] + [place] [address] R Unavailable Unavailable Unavailable NEIL MANTILLA Unavailable [address] + [place] [address] GAGE KIMBLE Unavailable [address] + [place] [address] R Unavailable Unavailable Unavailable NEIL MANTILLA Unavailable [address] + [place] [address] GAGE KIMBLE Unavailable [address] + [place] [address] R Unavailable Unavailable Unavailable NEIL MANTILLA Unavailable [address] + [place] [address] GAGE KIMBLE Unavailable [address] + [place] [address] R Unavailable Unavailable Unavailable NELI MANTILLA Unavailable [address] + [place] [address] GAGE KIMBLE Unavailable [address] + [place] [address] R Unavailable Unavailable Unavailable NEIL MANTILLA Unavailable [address] + [place] [address] GAGE KIMBLE Unavailable [address] + [place] [address] R Unavailable Unavailable Unavailable NEIL MANTILLA Unavailable [address] + [place] [address] GAEG KIMBLE Unavailable [address] + [place] [address] R Unavailable Unavailable Unavailable Care Team Providers Name Role Phone NICOLA PRICE Attending Unavailable NICOLA PRICE Referring Unavailable NICOLA PRICE Referring Unavailable NICOLA PRICE Attending Unavailable NICOLA PRICE Referring Unavailable NICOLA PRICE Referring Unavailable JONATHAN LOPEZ, DR. GONZALEZ Attending Unavailable VENKAT LOPEZ, DR. NICOLA Hartley Primary Care Unavailable Nicola Bay Attending Unavailable Nicola Bay Referring Unavailable Nicola Bay Primary Care Unavailable Abimael Castillo Attending Unavailable Jonathan, Abimael Referring Unavailable Nicola Bay Primary Care Unavailable Abimael Castillo Attending Unavailable Jonathan, Abimael Referring Unavailable Nicola Bay Primary Care Unavailable Abimael Castillo Attending Unavailable Jonathan, Abimael Referring Unavailable Nicola Bay Primary Care Unavailable Jonathan, Abimael Attending Unavailable Jonathan, Abimael Referring Unavailable Nicola Bay Primary Care Unavailable Jonathan, Abimael Attending Unavailable Jonathan, Abimael Referring Unavailable Nicola Bay Primary Care Unavailable Rob Claire Attending Unavailable Nicola Bay Primary Care Unavailable Rob Claire Attending Unavailable Nicola Bay Primary Care Unavailable Rob Claire Referring Unavailable Rob Claire Attending Unavailable Nicola Bay Primary Care Unavailable Rob Claire Attending Unavailable Rob Claire Referring Unavailable Bay, Nicola Primary Care Unavailable Rob Claire Attending Unavailable Bay, Nicola Primary Care Unavailable Bay, Nicola Primary Care Unavailable Ericka, Jose Alfredo Attending Unavailable JasonAmerico mari Attending Unavailable Bay, Nicola Referring Unavailable Jabour, Vincent Attending Unavailable Jabour, Vincent Referring Unavailable Bay, Nicola Primary Care Unavailable Bay, Nicola Attending Unavailable Bay, Nicola Referring Unavailable Bay, Nicola Primary Care Unavailable Bay, Nicola Attending Unavailable Bay, Nicola Referring Unavailable Bay, Nicola Primary Care Unavailable Ericka, Jose Alfredo Attending Unavailable Bay, Nicola Primary Care Unavailable Jabour, Vincent Attending Unavailable Jabour, Vincent Referring Unavailable Bay, Nicola Primary Care Unavailable Bay, Nicola Primary Care Unavailable UngAntonio steve Attending Unavailable Jabour, Skylerent Attending Unavailable Jabour, Vincent Referring Unavailable Bay, Nicola Primary Care Unavailable Qi, Rob Gutierrez Attending Unavailable Qi, Rob Gutierrez Referring Unavailable Bay, Nicola Primary Care Unavailable BongIveth sharma Attending Unavailable Bay, Nicola Primary Care Unavailable Bong, Iveth Del [place] Attending Unavailable Bay, Nicola Primary Care Unavailable BongIveth Referring Unavailable Jabour, Abimael Attending Unavailable Jabour, Vincent Referring Unavailable Bay, Nicola Primary Care Unavailable Jabour, Vincent Attending Unavailable Jabour, Vincent Referring Unavailable Bay, Nicola Primary Care Unavailable Ericka, Jose Alfredo Attending Unavailable Bay, Nicola Primary [...] Referring Unavailable Bay, Nicola Primary Care Unavailable Ericka, Jose Alfredo Attending Unavailable Bay, Nicola Primary [...] STATUS SOURCE 06/28/2018 Unknown R01.1 - Cardiac Jason, Americo Active [place] murmur, unspecified / Community R01.1(ICD-10) Hospital Repository 05/25/2018 Unknown 401.9 - Unspecified Abimael Castillo Active [place] essential Community hypertension / Hospital 401.9(ICD-9) Repository 05/25/2018 Unknown I10 - Essential Abimael Castillo Active [facility] (primary) Community hypertension / Hospital I10(ICD-10) Repository 05/25/2018 Unknown 250.00 - Diabetes Abimael Castillo Active [facility] mellitus without Community mention of Hospital complication, type II Repository or unspecified type, not stated as uncontrolled / 250.00(ICD-9) 05/25/2018 Unknown E11.9 - Type 2 Abimael Castillo Active [place] diabetes mellitus Community without complications Hospital / E11.9(ICD-10) Repository 05/23/2018 Unknown R18.8 - Other ascites Abimael Castillo Active [facility] / R18.8(ICD-10) Community Hospital Repository 05/23/2018 Unknown K74.60 - Unspecified Abimael Castillo Active [place] cirrhosis of liver / Community K74.60(ICD-10) Hospital Repository 03/31/2017 Active Other pancytopenia / NA Active [facility] D61.818(ICD-10) Clinic Main [place] Repository 03/01/2018 Unknown D61.818 - Other Nicola Price Active [facility] pancytopenia / Community D61.818(ICD-10) Hospital Repository 04/19/2018 Unknown E87.5 - Hyperkalemia Nicola Bay Active [facility] / E87.5(ICD-10) [facility] Repository 01/26/2018 Unknown K75.81 - Nonalcoholic BayNicola mcfarland Active [place] steatohepatitis Community ([facility]) / Hospital K75.81(ICD-10) Repository 12/19/2017 Unknown E11.622 - Type 2 BarnettJose Alfredo Active [facility] diabetes mellitus Community with other skin ulcer Hospital / E11.622(ICD-10) Repository 11/24/2017 Active Other iron deficiency NA Active [facility] anemias / Clinic Main D50.8(ICD-10) [place] Repository 10/13/2017 Unknown R14.0 - Abdominal BayNicola mcfarland Active [facility] distension (gaseous) Community / R14.0(ICD-10) Hospital Repository 08/19/2017 Unknown I73.9 - Peripheral Rob Claire Active [facility] vascular disease, Community unspecified / Hospital I73.9(ICD-10) Repository 07/22/2017 Unknown E11.65 - Type 2 Rob Claire Active [facility] diabetes mellitus Community with hyperglycemia / Hospital E11.65(ICD-10) Repository 07/22/2017 Unknown L97.819 - Rob Claire Active [facility] Non-pressure chronic Community ulcer of other part Hospital of right lower leg Repository with unspecified severity / L97.819(ICD-10) 07/22/2017 Unknown R60.0 - Localized Rob Claire Active [facility] edema / R60.0(ICD-10) [facility] Repository PROCEDURES PROCEDURES No Procedure Records FoundRESULTS RESULTS PARACENTESIS WITH US Observed: 07/14/2018 Status: F Source: [place] 9:59 AM [facility] REPOSITORY [facility] Imaging Services [address] [place] [address] Paracentesis with US MR#: [id number] Acct: [id number] Name: ANITA MCCALLUM Rep #: [id number] : 1945 F 72 From: Rigo Britt MD PCP: Nicola Bay MD Status: REG CLI Study: Paracentesis with US Date of Exam: 07/14/18 Exam# [id number] Ordering Dr: Abimael Castillo MD PROCEDURE: Ultrasound guided paracentesis. DATE OF EXAMINATION: July 14, 2018.. INDICATION: Female, 72 years old. Ascites. [...] the peritoneal cavity was accessed with a 5-Latvian paracentesis needle/catheter system. The trocar was removed. A total of 5700 ml of harsh-colored fluid were removed from the peritoneal cavity. The catheter was removed and a sterile dressing was applied. The procedure was well tolerated. US/Paracentesis with US IMPRESSION: Ultrasound guided paracentesis. Electronically Signed: Rigo Britt MD at 13:04 EST , Service support , CC: Nicola Bay MD; Abimael Castillo Under Cutting Machine Operator: Signed PARACENTESIS WITH US Observed: 07/07/2018 Status: F Source: [place] 10:09 AM [facility] REPOSITORY [facility] Imaging Services [address] [place] [address] [place] [address] Paracentesis with US MR#: [id number] Acct: [id number] Name: ANITA MCCALLUM Rep #: [id number] : 1945 F 72 From: Rigo Britt MD PCP: Nicola Bay MD Status: REG CLI Study: Paracentesis with US Date of Exam: 07/07/18 Exam# [id number] Ordering Dr: Abimael Castillo MD PROCEDURE: Ultrasound [...] the peritoneal cavity was accessed with a 5-Latvian paracentesis needle/catheter system. The trocar was removed. A total of 7150 ml of harsh-colored fluid were removed from the peritoneal cavity. The catheter was removed and a sterile dressing was applied. The procedure was well tolerated. US/Paracentesis with US IMPRESSION: Ultrasound guided paracentesis. Electronically Signed: Rigo Britt MD at 13:34 EST Tel [phone], Service support , CC: Nicola Bay MD; Abimael Castillo Under Cutting Machine Operator: Signed PARACENTESIS WITH US Observed: 06/30/2018 Status: F Source: [place] 9:55 AM [facility] REPOSITORY [facility] Imaging Services [address] [place] [address] Paracentesis with US MR#: [id number] Acct: [id number] Name: ANITA MCCALLUM Rep #: [id number] : 1945 F 72 From: Rigo Britt MD PCP: Nicola Bay MD Status: REG CLI Study: Paracentesis with US Date of Exam: 06/30/18 Exam# [id number] Ordering Dr: Abimael Castillo MD PROCEDURE: Ultrasound [...] the peritoneal cavity was accessed with a 5-Latvian paracentesis needle/catheter system. The trocar was removed. A total of 6900 ml of harsh-colored fluid were removed from the peritoneal cavity. The catheter was removed and a sterile dressing was applied. The procedure was well tolerated. US/Paracentesis with US IMPRESSION: Ultrasound guided paracentesis. Electronically Signed: Rigo Britt MD at 11:28 EST Tel [phone], Service support , CC: Nicola Bay MD; Abimael Castillo Under Cutting Machine Operator: Signed BASIC METABOLIC Collected: 06/29/2018 Status: F Source: [place] PROFILE (BMP) 1:10 PM [facility] REPOSITORY TYPE CODE [...] GAP 8 Performed By: #### L500.2500 #### [facility] [address] [facility] [place], [address] PROTHROMBIN TIME W/INR Collected: 06/29/2018 Status: F Source: [place] 1:10 PM [facility] REPOSITORY TYPE CODE TESTS RESULT OUT OF RANGE REFERENCE UNITS LAB L300.4150 11.7-14.9 SECONDS Normal PROTIME 13.2 LAB L300.4200 Normal INR 1.0 Performed By: #### L300.3900, L300.4310 #### [facility] [address] [facility] [place], [address] PARTIAL THROMBOPLAST Collected: 06/29/2018 Status: F Source: [place] TIME 1:10 PM [facility] REPOSITORY TYPE CODE TESTS RESULT OUT OF RANGE REFERENCE UNITS LAB L300.4310 24.1-36.2 Seconds Normal PTT 31.9 Performed By: #### L300.3900, L300.4310 #### [facility] [address] [place], [address] PARACENTESIS WITH US Observed: 06/23/2018 Status: F Source: [place] 10:11 AM [facility] REPOSITORY [facility] Imaging Services [address] [place] [address] Paracentesis with US MR#: [id number] Acct: [id number] Name: ANITA MCCALLUM Rep #: [id number] : 1945 F 72 From: Rigo Britt MD PCP: Nicola Bay MD Status: REG CLI Study: Paracentesis with US Date of Exam: 06/23/18 Exam# [id number] Ordering Dr: Abimael Castillo MD PROCEDURE: Ultrasound [...] the peritoneal cavity was accessed with a 5-Latvian paracentesis needle/catheter system. The trocar was removed. A total of 3550 ml of harsh-colored fluid were removed from the peritoneal cavity. The catheter was removed and a sterile dressing was applied. The procedure was well tolerated. US/Paracentesis with US IMPRESSION: Ultrasound guided paracentesis. Electronically Signed: Rigo Britt MD at 12:45 EST Tel [phone], Service support , CC: Nicola Bay MD; Abimael Castillo Under Cutting Machine Operator: Signed PARACENTESIS WITH US Observed: 06/16/2018 Status: F Source: [place] 10:19 AM [facility] REPOSITORY [facility] Imaging Services [address] [place] [address] Paracentesis with US MR#: [id number] Acct: [id number] Name: XENAANITA Rep #: [id number] : 1945 F 72 From: Danish Gao MD PCP: Nicola Bay MD Status: REG CLI Study: Paracentesis with US Date of Exam: 06/16/18 Exam# [id number] Ordering Dr: Abimael Castillo MD PROCEDURE: ULTRASOUND GUIDED PARACENTESIS CLINICAL HISTORY: Female, 72 years old. CONSENT: Time-Out Called: Yes. Consent form signed: Yes. PT-PTT Levels Checked: Yes. SEDATION: no TECHNIQUE: FINDINGS: Following proper aseptic preparation and local anesthesia, 5 Latvian catheter was inserted in the right side of the abdomen. 3410 ml of pale clear yellow fluid were aspirated. The patient tolerated the procedure well. Electronically Signed: Danish Gao, at 15:40 EST Tel , Service support , US/Paracentesis with US CC: Nicola Bay MD; Abimael Castillo Under Cutting Machine Operator: Signed PARACENTESIS WITH US Observed: 06/09/2018 Status: F Source: [place] 11:06 AM [facility] Imaging Services [address] [place] [address] Paracentesis with US MR#: [id number] Acct: [id number] Name: ANITA MCCALLUM Rep #: [id number] : 1945 F 72 From: Rigo Britt MD PCP: Nicola Bay MD Status: REG CLI Study: Paracentesis with US Date of Exam: 06/09/18 Exam# [id number] Ordering Dr: Abimael Castillo MD PROCEDURE: Ultrasound [...] the peritoneal cavity was accessed with a 5-Latvian paracentesis needle/catheter system. The trocar was removed. A total of 4650 ml of harsh-colored fluid were removed from the peritoneal cavity. The catheter was removed and a sterile dressing was applied. The procedure was well tolerated. US/Paracentesis with US IMPRESSION: Ultrasound guided paracentesis. Electronically Signed: Rigo Britt MD at 13:55 EST Tel [phone], Service support , CC: Nicola Bay MD; Abimael Castillo Under Cutting Machine Operator: Signed ECHO, COMPLETE W/ Observed: 06/06/2018 Status: F Source: [place] CONTRAST 4:49 PM [facility] REPOSITORY [facility] Cardiovascular Services [address] [place] [address] 30717 Echo Complete W/ Contrast 06/06/18 1408 MR#: [id number] Acct: [id number] Name: ANITA MCCALLUM Rep #: [id number] : 1945 72 From: Americo Gomez MD Attending Dr: Nicola Bay MD Status: REG CLI Ordering Dr: Nicola Bay MD Date: 06/06/18 Location: [facility] Sex: F C Admitted: Reason For Study: [...] Bay Performed By: Ciera Jarrett, RDCS, RVT 06/06/189 Date Americo Gomez MD CC: Nicola Bay MD Date Dictated: 06/06/18 1408 Date Transcribed: 06/06/181648 Under Cutting Machine Operator: Signed PARACENTESIS WITH US Observed: 06/02/2018 Status: F Source: [place] 10:27 AM [facility] REPOSITORY [facility] Imaging Services [address] [place] [address] [place] [address] Paracentesis with US MR#: [id number] Acct: [id number] Name: ANITA MCCALLUM Rep #: [id number] : 1945 F 72 From: Rigo Britt MD PCP: Nicola Bay MD Status: REG CLI Study: Paracentesis with US Date of Exam: 06/02/18 Exam# [id number] Ordering Dr: Abimael Castillo MD PROCEDURE: Ultrasound [...] the peritoneal cavity was accessed with a 5-Latvian paracentesis needle/catheter system. The trocar was removed. A total of 2450 ml of harsh-colored fluid were removed from the peritoneal cavity. The catheter was removed and a sterile dressing was applied. The procedure was well tolerated. US/Paracentesis with US IMPRESSION: Ultrasound guided paracentesis. Electronically Signed: Rigo Britt MD at 14:06 EST Tel [phone], Service support , CC: Nicola Bay MD; Abimael Castillo Under Cutting Machine Operator: Signed PARACENTESIS WITH US Observed: 05/27/2018 Status: F Source: [place] 10:25 AM [facility] REPOSITORY [facility] Imaging Services [address] [place] [address] Paracentesis with US MR#: [id number] Acct: [id number] Name: ANITA MCCALLUM Rep #: [id number] : 1945 F 72 From: Rigo Britt MD PCP: Nicola Bay MD Status: REG CLI Study: Paracentesis with US Date of Exam: 05/27/18 Exam# [id number] Ordering Dr: Abimael Castillo MD PROCEDURE: Ultrasound [...] the peritoneal cavity was accessed with a 5-Latvian paracentesis needle/catheter system. The trocar was removed. A total of 4500 ml of harsh-colored fluid were removed from the peritoneal cavity. The catheter was removed and a sterile dressing was applied. The procedure was well tolerated. US/Paracentesis with US IMPRESSION: Ultrasound guided paracentesis. Electronically Signed: Rigo Britt MD at 12:17 EST Tel [phone], Service support , CC: Nicola Bay MD; Abimael Castillo Under Cutting Machine Operator: Signed PROTHROMBIN TIME W/INR Collected: 05/25/2018 Status: F Source: [place] 12:26 PM [facility] REPOSITORY Order Comment: WANTS THE PT PTT WANTS THE [facility] LIPID TSH A1C TYPE CODE TESTS RESULT OUT OF RANGE REFERENCE UNITS LAB L300.4150 11.7-14.9 SECONDS Normal PROTIME 14.4 LAB L300.4200 Normal INR 1.1 Performed By: #### L300.3900, L300.4310 #### [facility] [address] [facility] [facility]. [place], [place], [id number] PARTIAL THROMBOPLAST Collected: 05/25/2018 Status: F Source: [place] TIME 12:26 PM [facility] REPOSITORY Order Comment: WANTS THE PT PTT WANTS THE [facility] LIPID TSH A1C TYPE CODE TESTS RESULT OUT OF RANGE REFERENCE UNITS LAB L300.4310 24.1-36.2 Seconds Normal PTT 28.2 Performed By: #### L300.3900, L300.4310 #### [facility] [address] [place], [address] URINALYSIS, COMPLETE Collected: 05/25/2018 Status: F Source: [place] 12:21 PM [facility] REPOSITORY Order Comment: WANTS THE PT PTT WANTS THE [facility] LIPID TSH A1C How was Urine Obtained? VENEER DEPARTMENT MANAGER TO SPECIFY TYPE CODE TESTS RESULT OUT [...] #### L400.0001, L501.9985, L500.4050, L500.4100, L501.9520 #### [facility] [address] [place], [place], [id number] HEMOGLOBIN A1C Collected: 05/25/2018 Status: F Source: [place] 12:21 PM [facility] REPOSITORY Order Comment: WANTS THE PT PTT WANTS THE [facility] LIPID TSH A1C TYPE CODE TESTS RESULT OUT OF RANGE REFERENCE UNITS LAB L501.9985 4.2-6.3 % High HGB A1C 10.3 Performed By: #### L400.0001, L501.9985, L500.4050, L500.4100, L501.9520 #### [facility] [address] [place], [address] COMPREHENSIVE METABOLIC Collected: 05/25/2018 Status: F Source: REJI CLAYTON 12:21 PM [facility] REPOSITORY Order Comment: WANTS THE PT PTT WANTS THE [facility] CMP LIPID TSH A1C TYPE CODE TESTS [...] #### L400.0001, L501.9985, L500.4050, L500.4100, L501.9520 #### [facility] [address] [place], [place], [id number] LIPID PROFILE Collected: 05/25/2018 Status: F Source: REJI 12:21 PM [facility] REPOSITORY Order Comment: WANTS THE PT PTT WANTS THE [facility] LIPID TSH A1C TYPE CODE [...] #### L400.0001, L501.9985, L500.4050, L500.4100, L501.9520 #### [facility] [address] [place], [place], [id number] THYROID STIM HORMONE Collected: 05/25/2018 Status: F Source: [place] (TSH) 12:21 PM [facility] REPOSITORY Order Comment: WANTS THE PT PTT WANTS THE [facility] LIPID TSH A1C TYPE CODE TESTS RESULT OUT OF RANGE REFERENCE UNITS LAB L501.9520 0.358-3.74 uIU/mL Normal TSH 2.39 Performed By: #### L400.0001, L501.9985, L500.4050, L500.4100, L501.9520 #### [facility] [address] [place], [address] PARACENTESIS WITH US Observed: 05/19/2018 Status: F Source: [place] 10:27 AM [facility] REPOSITORY [facility] Imaging Services [address] [place] [address] Paracentesis with US MR#: [id number] Acct: [id number] Name: ANITA MCCALLUM Rep #: [id number] : 1945 F 72 From: Rigo Britt MD PCP: Nicola Bay MD Status: REG CLI Study: Paracentesis with US Date of Exam: 05/19/18 Exam# [id number] Ordering Dr: Abimael Castillo MD PROCEDURE: Ultrasound [...] the peritoneal cavity was accessed with a 5-Latvian paracentesis needle/catheter system. The trocar was removed. A total of 6500 ml of harsh-colored fluid were removed from the peritoneal cavity. The catheter was removed and a sterile dressing was applied. The procedure was well tolerated. US/Paracentesis with US IMPRESSION: Ultrasound guided paracentesis. Electronically Signed: Rigo Britt MD at 12:13 EST Tel [phone], Service support , CC: Nicola Bay MD; Abimael Castillo Under Cutting Machine Operator: Signed PARACENTESIS WITH US Observed: 05/11/2018 Status: F Source: [place] 10:23 AM [facility] REPOSITORY [facility] Imaging Services [address] [place] [address] Paracentesis with US MR#: [id number] Acct: [id number] Name: ANITA MCCALLUM Rep #: [id number] : 1945 F 72 From: Rigo Britt MD PCP: Nicola Bay MD Status: REG CLI Study: Paracentesis with US Date of Exam: 05/11/18 Exam# [id number] Ordering Dr: Abimael Castillo MD PROCEDURE: Ultrasound [...] the peritoneal cavity was accessed with a 5-Latvian paracentesis needle/catheter system. The trocar was removed. A total of 6800 ml of harsh-colored fluid were removed from the peritoneal cavity. The catheter was removed and a sterile dressing was applied. The procedure was well tolerated. US/Paracentesis with US IMPRESSION: Ultrasound guided paracentesis. Electronically Signed: Rigo Britt MD at 12:32 EST Tel [phone], Service support , CC: Nicola Bay MD; Abimael Castillo Under Cutting Machine Operator: Signed PARACENTESIS WITH US Observed: 05/05/2018 Status: F Source: REJI 12:18 PM [facility] REPOSITORY [facility] Imaging Services [address] [place] [address] Paracentesis with US MR#: [id number] Acct: [id number] Name: ANITA MCCALLUM Rep #: [id number] : 1945 F 72 From: Rigo Britt MD PCP: Nicola Bay MD Status: REG CLI Study: Paracentesis with US Date of Exam: 05/05/18 Exam# [id number] Ordering Dr: Abimael Castillo MD PROCEDURE: Ultrasound [...] the peritoneal cavity was accessed with a 5-Latvian paracentesis needle/catheter system. The trocar was removed. A total of 6100 ml of harsh-colored fluid were removed from the peritoneal cavity. The catheter was removed and a sterile dressing was applied. The procedure was well tolerated. US/Paracentesis with US IMPRESSION: Ultrasound guided paracentesis. Electronically Signed: Rigo Britt MD at 14:05 EST Tel [phone], Service support , CC: Nicola Bay MD; Abimael Castillo Under Cutting Machine Operator: Signed PARACENTESIS WITH US Observed: 04/28/2018 Status: F Source: REJI 9:16 AM [facility] REPOSITORY [facility] Imaging Services [address] [place] [address] Paracentesis with US MR#: [id number] Acct: [id number] Name: ANITA MCCALLUM Rep #: [id number] : 1945 F 72 From: Rigo Britt MD PCP: Nicola Bay MD Status: REG CLI Study: Paracentesis with US Date of Exam: 04/28/18 Exam# [id number] Ordering Dr: Abimael Castillo MD PROCEDURE: Ultrasound [...] the peritoneal cavity was accessed with a 5-Latvian paracentesis needle/catheter system. The trocar was removed. A total of 6000 ml of harsh-colored fluid were removed from the peritoneal cavity. The catheter was removed and a sterile dressing was applied. The procedure was well tolerated. US/Paracentesis with US IMPRESSION: Ultrasound guided paracentesis. Electronically Signed: Rigo Britt MD at 11:12 EST Tel [phone], Service support , CC: Nicola Bay MD; Abimael Castillo Under Cutting Machine Operator: Signed BASIC METABOLIC Collected: 04/27/2018 Status: F Source: REJI PROFILE (BMP) 12:18 PM [facility] REPOSITORY TYPE CODE [...] GAP 6 Performed By: #### L500.2500 #### [facility] [address] [place], [place], [address] PROTHROMBIN TIME W/INR Collected: 04/27/2018 Status: F Source: REJI 12:18 PM [facility] REPOSITORY TYPE CODE TESTS RESULT OUT OF RANGE REFERENCE UNITS LAB L300.4150 11.7-14.9 SECONDS Normal PROTIME 13.5 LAB L300.4200 Normal INR 1.0 Performed By: #### L300.3900, L300.4310 #### [facility] [address] [place], [address] PARTIAL THROMBOPLAST Collected: 04/27/2018 Status: F Source: REJI TIME 12:18 PM [facility] REPOSITORY TYPE CODE TESTS RESULT OUT OF RANGE REFERENCE UNITS LAB L300.4310 24.1-36.2 Seconds Normal PTT 29.2 Performed By: #### L300.3900, L300.4310 #### [facility] [address] [place], [address] PARACENTESIS WITH US Observed: 04/21/2018 Status: F Source: REJI 12:17 PM [facility] REPOSITORY [facility] Imaging Services [address] [place] [address] Paracentesis with US MR#: [id number] Acct: [id number] Name: ANITA MCCALLUM Rep #: [id number] : 1945 F 72 From: Rigo Britt MD PCP: Nicola Bay MD Status: REG CLI Study: Paracentesis with US Date of Exam: 04/21/18 Exam# [id number] Ordering Dr: Abimael Castillo MD PROCEDURE: Ultrasound [...] the peritoneal cavity was accessed with a 5-Latvian paracentesis needle/catheter system. The trocar was removed. A total of 7500 ml of harsh-colored fluid were removed from the peritoneal cavity. The catheter was removed and a sterile dressing was applied. The procedure was well tolerated. US/Paracentesis with US IMPRESSION: Ultrasound guided paracentesis. Electronically Signed: Rigo Britt MD at 13:46 EDT Tel [phone], Service support , CC: Nicola Bay MD; Abimael Castillo Under Cutting Machine Operator: Signed PARACENTESIS WITH US Observed: 04/12/2018 Status: F Source: REJI 9:23 AM [facility] REPOSITORY [facility] Imaging Services [address] [place] [address] Paracentesis with US MR#: [id number] Acct: [id number] Name: ANITA MCCALLUM Rep #: [id number] : 1945 F 72 From: Rigo Britt MD PCP: Nicola Bay MD Status: REG CLI Study: Paracentesis with US Date of Exam: 04/12/18 Exam# [id number] Ordering Dr: Abimael Castillo MD PROCEDURE: Ultrasound [...] the peritoneal cavity was accessed with a 5-Latvian paracentesis needle/catheter system. The trocar was removed. A total of 7000 ml of harsh-colored fluid were removed from the peritoneal cavity. The catheter was removed and a sterile dressing was applied. The procedure was well tolerated. US/Paracentesis with US IMPRESSION: Ultrasound guided paracentesis. Electronically Signed: Rigo Britt MD at 11:19 EDT Tel [phone], Service support , CC: Nicola Bay MD; Abimael Castillo Under Cutting Machine Operator: Signed PARACENTESIS WITH US Observed: 03/31/2018 Status: F Source: [place] 10:23 AM [facility] REPOSITORY [facility] Imaging Services [address] [place] [address] Paracentesis with US MR#: [id number] Acct: [id number] Name: ANITA MCCALLUM Rep #: [id number] : 1945 F 72 From: Eladio Bazan MD PCP: Nicola Bay MD Status: REG CLI Study: Paracentesis with US Date of Exam: 03/31/18 Exam# [id number] Ordering Dr: Abimael Castillo MD PROCEDURE: ULTRASOUND [...] 10 mL of lidocaine 1% a 5 Latvian drainage catheter is introduced in the right [...] , CC: Nicola Bay MD; Abimael Castillo Under Cutting Machine Operator: Signed PARACENTESIS WITH US Observed: 03/24/2018 Status: F Source: [place] 10:13 AM [facility] REPOSITORY [facility] Imaging Services [address] [place] [address] Paracentesis with US MR#: [id number] Acct: [id number] Name: ANITA MCCALLUM Rep #: [id number] : 1945 F 72 From: Samra Martinez MD PCP: Nicola Bay MD Status: REG CLI Study: Paracentesis with US Date of Exam: 03/24/18 Exam# [id number] Ordering Dr: Abimael Castillo MD PROCEDURE: ULTRASOUND [...] 10 mL of lidocaine 1% a 5 Latvian drainage catheter is introduced in the lower [...] , CC: Nicola Bay MD; Abimael Castillo Under Cutting Machine Operator: Signed PROTHROMBIN TIME W/INR Collected: 03/23/2018 Status: F Source: REJI 12:18 PM [facility] REPOSITORY Order Comment: DR CASTILLO GETS PT, PTT, AND BMP DR HERCULES GETS RENAL TYPE CODE TESTS RESULT OUT OF RANGE REFERENCE UNITS LAB L300.4150 11.7-14.9 SECONDS Normal PROTIME 13.9 LAB L300.4200 Normal INR 1.1 Performed By: #### L300.3900, L300.4310 #### [facility] [address] [facility] [place], [place], [address] PARTIAL THROMBOPLAST Collected: 03/23/2018 Status: F Source: REJI TIME 12:18 PM [facility] REPOSITORY Order Comment: DR CASTILLO GETS PT, PTT, AND BMP DR HERCULES GETS RENAL TYPE CODE TESTS RESULT OUT OF RANGE REFERENCE UNITS LAB L300.4310 24.1-36.2 Seconds Normal PTT 27.6 Performed By: #### L300.3900, L300.4310 #### [facility] [address] [place], [address] RENAL PROFILE Collected: 03/23/2018 Status: F Source: REJI 12:18 PM [facility] REPOSITORY Order Comment: DR [...] CO2 24.0 Performed By: #### L500.3600 #### [facility] [address] [facility] [place], [address] PARACENTESIS WITH US Observed: 03/17/2018 Status: F Source: [place] 10:21 AM [facility] REPOSITORY [facility] Imaging Services [address] [place] [address] Paracentesis with US MR#: [id number] Acct: [id number] Name: ANITA MCCALLUM Rep #: [id number] : 1945 F 72 From: Rigo Britt MD PCP: Nicola Bay MD Status: REG CLI Study: Paracentesis with US Date of Exam: 03/17/18 Exam# [id number] Ordering Dr: Abimael Castillo MD PROCEDURE: Ultrasound [...] the peritoneal cavity was accessed with a 5-Latvian paracentesis needle/catheter system. The trocar was removed. A total of 4700 ml of harsh-colored fluid were removed from the peritoneal cavity. The catheter was removed and a sterile dressing was applied. The procedure was well tolerated. US/Paracentesis with US IMPRESSION: Ultrasound guided paracentesis. Electronically Signed: Rigo Britt MD at 11:19 EDT Tel [phone], Service support , CC: Nicola Bay MD; Abimael Castillo Under Cutting Machine Operator: Signed PARACENTESIS WITH US Observed: 03/10/2018 Status: F Source: [place] 12:24 PM [facility] REPOSITORY [facility] Imaging Services [address] [place] [address] Paracentesis with US MR#: [id number] Acct: [id number] Name: XENA,ANITA K Rep #: [id number] : 1945 F 72 From: Rigo Britt MD PCP: Nicola Bay MD Status: REG CLI Study: Paracentesis with US Date of Exam: 03/10/18 Exam# [id number] Ordering Dr: Abimael Castillo MD PROCEDURE: Ultrasound [...] the peritoneal cavity was accessed with a 5-Latvian paracentesis needle/catheter system. The trocar was removed. A total of 4300 ml of harsh-colored fluid were removed from the peritoneal cavity. The catheter was removed and a sterile dressing was applied. The procedure was well tolerated. US/Paracentesis with US IMPRESSION: Ultrasound guided paracentesis. Electronically Signed: Rigo Britt MD at 13:57 EDT Tel [phone], Service support , CC: Nicola Bay MD; Abimael Castillo Under Cutting Machine Operator: Signed PROGRESS Observed: 03/08/2018 Status: COMPLETED Source: [place] 10:25 AM [facility] REPOSITORY O ID: [id number] Author: Nicola Price Service: (none) Author Type: [...] bone metastases. She didn't recall seeing a weasand trimmer in 2009. She denied musculoskeletal pain but [...] No spider angiomas. No palmar erythema. NEUROLOGIC: basket turner II-XII are grossly intact. 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.818) Pancytopenia [...] DO CNOVSP Observed: 03/08/2018 Status: COMPLETED Source: [place] 10:10 AM [facility] REPOSITORY Visit (SP) Office (MAHNAZ) ANITA MCCALLUM ([id number]) 1945 F Date Time Provider Department 03/08/18 [...] bone metastases. She didn't recall seeing a weasand trimmer in 2009. She denied musculoskeletal pain but [...] No spider angiomas. No palmar erythema. NEUROLOGIC: basket turner II-XII are grossly intact. 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.818) Pancytopenia [...] Nicola Price DO Referring Provider: NICOLA PRICE [[id number]] Allergies As of Date: 03/08/2018 Noted Allergy [...] 9:59 AM >> ROSENDA DEL TORO MA Mar 08, 2018 9:59 AM No longer [...] 03/03/2018 Status: F Source: REJI 12:22 PM [facility] REPOSITORY [facility] Imaging Services [address] [place] [address] Paracentesis with US MR#: [id number] Acct: [id number] Name: ANITA MCCALLUM Rep #: [id number] : 1945 F 72 From: Rigo Britt MD PCP: Nicola Bay MD Status: REG CLI Study: Paracentesis with US Date of Exam: 03/03/18 Exam# [id number] Ordering Dr: Abimael Castillo MD PROCEDURE: Ultrasound [...] the peritoneal cavity was accessed with a 5-Latvian paracentesis needle/catheter system. The trocar was removed. A total of 4350 ml of harsh-colored fluid were removed from the peritoneal cavity. The catheter was removed and a sterile dressing was applied. The procedure was well tolerated. US/Paracentesis with US IMPRESSION: Ultrasound guided paracentesis. Electronically Signed: Rigo Britt MD at 15:51 EDT Tel [phone], Service support , CC: Nicola Bay MD; Abimael Castillo Under Cutting Machine Operator: Signed REJI ABS GR + CBC Collected: 03/01/2018 Status: F Source: [place] 1:01 PM [facility] REPOSITORY TYPE CODE TESTS RESULT OUT OF REFERENCE UNITS RANGE LAB WWBC 3.70-11.00 k/uL Low [place] WBC 2.85 LAB WRBC 3.90-5.20 m/uL Low [place] RBC 3.22 LAB WHGB 11.5-15.5 g/dL Low [place] Hemoglobin 10.1 LAB WHCT 36.0-46.0 % Low [place] Hematocrit 30.5 LAB WMCV 80.0-100.0 fL [place] MCV 94.7 LAB WMCH 26.0-34.0 pg [place] MCH 31.4 LAB WMCHC 30.5-36.0 g/dL [place] MCHC 33.1 LAB WRDW 11.5-15.0 % [place] RDW 14.1 LAB WPLT 150-400 k/uL Low [place] Platelet Cnt 68 LAB WMPV 9.0-12.7 fL [place] MPV 10.5 Result Comment: Test performed at: [facility] [place], [address] [place] [address]. LAB ABGRAN 1.45-7.50 k/uL Absol Gran 2.10 Count COMP METABOLIC PANEL Collected: 03/01/2018 Status: F Source: [place] 12:59 PM [facility] RE[facility] TYPE CODE TESTS RESULT OUT OF REFERENCE UNITS RANGE LAB TP 6.3-8.0 g/dL Test sent to [facility]. Result Comment: [facility] ALB 3.9-4.9 g/dL Test Albumin sent to [facility]. Result Comment: [facility] CA 8.5-10.2 mg/dL Test Calcium, Total sent to [facility]. Result Comment: [facility] TBIL 0.2-1.3 mg/dL Bilirubin, Test Total sent to [facility]. Result Comment: [facility] ALKP 32-117 U/L Alkaline Test Phosphatase sent to [facility]. Result Comment: [facility] AST 13-35 U/L Test sent AST to [facility]. Result Comment: [facility] GLU 74-99 mg/dL Test sent Glucose to [facility]. Result Comment: [facility] BUN 7-21 mg/dL Test sent BUN to [facility]. Result Comment: [facility] CRET 0.58-0.96 mg/dL Creatinine Test sent to [facility]. Result Comment: [facility] NA 136-144 mmol/L Test Sodium sent to [facility]. Result Comment: [facility] K 3.7-5.1 mmol/L Test Potassium sent to [facility]. Result Comment: [facility] CL 97-105 mmol/L Test Chloride sent to [facility]. Result Comment: [facility] CO2 22-30 mmol/L Test sent CO2 to [facility]. Result Comment: [facility] AGAP 9-18 mmol/L Test sent Anion Gap to [facility]. Result Comment: [facility] ALT 7-38 U/L Test sent to ALT [facility]. Result Comment: [facility] GFRAA eGFR- Amer. Test sent to [facility]. Result Comment: [facility] GFRNAA . eGFR-All Test sent Other Races to [facility]. Result Comment: [facility] GFRPED eGFR-Ped. Test sent Factor to [facility]. Result Comment: [facility] FERRITIN Collected: 03/01/2018 Status: F Source: [place] 12:59 PM [facility] REPOSITORY TYPE CODE TESTS RESULT OUT OF REFERENCE UNITS RANGE LAB FERR 14.7-205.1 ng/mL Test Ferritin sent to [facility]. Result Comment: [facility] IRON AND TIBC Collected: 03/01/2018 Status: F Source: [place] 12:59 PM [facility] REPOSITORY TYPE CODE TESTS RESULT OUT OF REFERENCE UNITS RANGE LAB IRN 41-186 ug/dL Test Iron sent to [facility]. Result Comment: Account Credited [facility] TIBC 232-386 ug/dL Test sent TIBC to [facility]. Result Comment: Account Credited [facility] SAT 15-57 % Transferrin Test sent Saturatn to [facility]. Result Comment: Account Credited [facility] COMPREHENSIVE METABOLIC Collected: 03/01/2018 Status: F Source: [facility] 12:59 PM [facility] REPOSITORY TYPE CODE [...] By: #### L500.4050, L503.6075, L503.6150, L503.6550 #### [facility] [address] [place] [address], [id number] IRON BINDING Collected: 03/01/2018 Status: F Source: [facility] CAPACITY,TOTAL 12:59 PM [facility] REPOSITORY TYPE CODE TESTS RESULT OUT OF RANGE REFERENCE UNITS LAB L503.6075 250-450 ug/dL Normal TIBC 264 Performed By: #### L500.4050, L503.6075, L503.6150, L503.6550 #### [facility] [address] [place], [place], [address] IRON Collected: 03/01/2018 Status: F Source: [facility] 12:59 PM [facility] REPOSITORY TYPE CODE TESTS RESULT OUT OF RANGE REFERENCE UNITS LAB L503.6150 50-170 ug/dL Normal IRON 92 Performed By: #### L500.4050, L503.6075, L503.6150, L503.6550 #### [facility] [address] [place], [address] FERRITIN Collected: 03/01/2018 Status: F Source: [facility] 12:59 PM [facility] REPOSITORY TYPE CODE TESTS RESULT OUT OF REFERENCE UNITS RANGE LAB L503.6550 8-252 ng/mL High FERRITIN 303 Performed By: #### L500.4050, L503.6075, L503.6150, L503.6550 #### [facility] [address] [place], [address] PARACENTESIS WITH US Observed: 02/24/2018 Status: F Source: [facility] 10:21 AM [facility] REPOSITORY [facility] Imaging Services [address] [place] [address] Paracentesis with US MR#: [id number] Acct: [id number] Name: ANITA MCCALLUM Rep #: [id number] : 1945 F 72 From: Rigo Britt MD PCP: Nicola Bay MD Status: REG CLI Study: Paracentesis with US Date of Exam: 02/24/18 Exam# [id number] Ordering Dr: Abimael Castillo MD PROCEDURE: Ultrasound [...] the peritoneal cavity was accessed with a 5-Latvian paracentesis needle/catheter system. The trocar was removed. A total of 5350 ml of harsh-colored fluid were removed from the peritoneal cavity. The catheter was removed and a sterile dressing was applied. The procedure was well tolerated. US/Paracentesis with US IMPRESSION: Ultrasound guided paracentesis. Electronically Signed: Rigo Britt MD at 14:37 EDT Tel [phone], Service support , CC: Nicola Bay MD; Abimael Castillo Under Cutting Machine Operator: Signed PROTHROMBIN TIME W/INR Collected: 02/22/2018 Status: F Source: REJI 12:48 PM [facility] REPOSITORY TYPE CODE TESTS RESULT OUT OF RANGE REFERENCE UNITS LAB L300.4150 11.7-14.9 SECONDS Normal PROTIME 13.7 LAB L300.4200 Normal INR 1.1 Performed By: #### L300.3900, L300.4310 #### [facility] [address] [place], [address] PARTIAL THROMBOPLAST Collected: 02/22/2018 Status: F Source: REJI TIME 12:48 PM [facility] REPOSITORY TYPE CODE TESTS RESULT OUT OF RANGE REFERENCE UNITS LAB L300.4310 24.1-36.2 Seconds Normal PTT 29.1 Performed By: #### L300.3900, L300.4310 #### [facility] [address] [place], [address] PARACENTESIS WITH US Observed: 02/17/2018 Status: F Source: REJI 10:16 AM [facility] REPOSITORY [facility] Imaging Services [address] [place] [address] Paracentesis with US MR#: [id number] Acct: [id number] Name: ANITA MCCALLUM Rep #: [id number] : 1945 F 72 From: Rigo Britt MD PCP: Nicola Bay MD Status: REG CLI Study: Paracentesis with US Date of Exam: 02/17/18 Exam# [id number] Ordering Dr: Abimael Castillo MD PROCEDURE: Ultrasound [...] the peritoneal cavity was accessed with a 5-Latvian paracentesis needle/catheter system. The trocar was removed. A total of 6800 ml of harsh-colored fluid were removed from the peritoneal cavity. The catheter was removed and a sterile dressing was applied. The procedure was well tolerated. US/Paracentesis with US IMPRESSION: Ultrasound guided paracentesis. Electronically Signed: Rigo Britt MD at 12:46 EDT Tel [phone], Service support , CC: Nicola Bay MD; Abimael Castillo Under Cutting Machine Operator: Signed PARACENTESIS WITH US Observed: 02/10/2018 Status: F Source: REJI 10:17 AM [facility] REPOSITORY [facility] Imaging Services [address] [place] [address] Paracentesis with US MR#: [id number] Acct: [id number] Name: XENAANITA K Rep #: [id number] : 1945 F 72 From: Rigo Britt MD PCP: Nicola Bay MD Status: REG CLI Study: Paracentesis with US Date of Exam: 02/10/18 Exam# [id number] Ordering Dr: Abimael Castillo MD PROCEDURE: Ultrasound [...] the peritoneal cavity was accessed with a 5-Latvian paracentesis needle/catheter system. The trocar was removed. A total of 2700 ml of harsh-colored fluid were removed from the peritoneal cavity. The catheter was removed and a sterile dressing was applied. The procedure was well tolerated. US/Paracentesis with US IMPRESSION: Ultrasound guided paracentesis. Electronically Signed: Rigo Britt MD at 11:19 EDT Tel [phone], Service support , CC: Nicola Bay MD; Abimael Castillo Under Cutting Machine Operator: Signed PARACENTESIS WITH US Observed: 02/03/2018 Status: F Source: [facility] 12:22 PM [facility] REPOSITORY [facility] Imaging Services [address] [place] [address] Paracentesis with US MR#: [id number] Acct: [id number] Name: ANITA MCCALLUM Rep #: [id number] : 1945 F 72 From: Rigo Britt MD PCP: Nicola Bay MD Status: REG CLI Study: Paracentesis with US Date of Exam: 02/03/18 Exam# [id number] Ordering Dr: Abimael Castillo MD PROCEDURE: Ultrasound [...] the peritoneal cavity was accessed with a 5-Latvian paracentesis needle/catheter system. The trocar was removed. A total of 5600 ml of harsh-colored fluid were removed from the peritoneal cavity. The catheter was removed and a sterile dressing was applied. The procedure was well tolerated. US/Paracentesis with US IMPRESSION: Ultrasound guided paracentesis. Electronically Signed: Rigo Britt MD at 13:57 EDT Tel [phone], Service support , CC: Nicola Bay MD; Abimael Castillo Under Cutting Machine Operator: Signed 12 LEAD ELECTROCARDIOGRAM Observed: 01/31/2018 Status: F Source: [facility] 3:21 PM [facility] REPOSITORY [facility] Cardiovascular Services [address] [place] [address] 12 Lead EKG 01/22/18 1110 MR#: [id number] Acct: [id number] Name: ANITA MCCALLUM Rep #: [id number] : 1945 72 From: Americo Gomez MD [...] Normal sinus rhythm Normal ECG Confirmed by AMERICO GOMEZ MD ([id number]), map editor MARLEY ASHFORD ([id number]) on 01/31/2018 3:20:55 PM Referred By: SANTI Confirmed By:AMERICO GOMEZ MD 01/31/18 1521 Date Americo Gomez MD CC: Jose Ellis MD; Becky Wharton MD; Nicola Bay MD Signed PARACENTESIS WITH US Observed: 01/27/2018 Status: F Source: [facility] 10:12 AM [facility] REPOSITORY [facility] Imaging Services [address] [place] [address] Paracentesis with US MR#: [id number] Acct: [id number] Name: ANITA MCCALLUM Rep #: [id number] : 1945 F 72 From: Eladio Bazan MD PCP: Nicola Bay MD Status: REG CLI Study: Paracentesis with US Date of Exam: 01/27/18 Exam# [id number] Ordering Dr: Abimael Castillo MD PROCEDURE: ULTRASOUND [...] the peritoneal cavity was accessed with a 5-Latvian paracentesis needle/catheter system. The trocar was removed. [...] , CC: Nicola Bay MD; Abimael Castillo Under Cutting Machine Operator: Signed BASIC METABOLIC Collected: 01/26/2018 Status: F Source: REJI PROFILE (BMP) 4:43 PM [facility] REPOSITORY TYPE CODE [...] 9 GAP Performed By: #### L500.2500 #### [facility] [address] [facility] [place], [address] K Collected: 01/24/2018 Status: F Source: [facility] 8:49 AM [facility] REPOSITORY TYPE CODE TESTS RESULT OUT OF REFERENCE UNITS RANGE LAB K(LOINC) 3.5-5.1 mmol/L Potassium Level 4.6 Performed By: #### K #### [facility] [address] [place] [address] DISCHARGE SUMMARY Observed: 01/23/2018 Status: F Source: [facility] 5:08 PM [facility] REPOSITORY [facility] Medical Records Department [address] [place] [address] Discharge Summary 01/23/18 1055 MR#: [id number] Acct: [id number] Name: ANITA MCCALLUM Rep #: [id number] : 1945 72 From: Becky Wharton MD PCP: Nicola Bay MD Status: DIS IN Y Location: [place] [address] Discharge Date and Diagnosis Date of Admission: [...] as per preferred to follow-up with a museum security chief that she has seen in [place] before. She is to call the museum security chief office for an appointment. Patient is to follow-up with her customer service associate Dr. Castillo in [facility] she has scheduled EGD with him [...] applicable Code Visit Inpatient E AND M: 86920 Disch Hosp 01/23/18 8231 <Electronically signed by Becky Wharton MD> Date Becky hWarton MD Cosigner Signature (if applicable): Date CC: Becky Wharton MD; Nicola Bay MD Signed DISCHARGE INSTRUCTION Observed: 01/23/2018 Status: F Source: REJI 10:54 AM [facility] REPOSITORY [facility] Medical Records Department [address] [place] [address] Instructions for Home/Discharge Instructions 01/23/18 1043 MR#: [id number] Acct: [id number] Name: ANITA MCCALLUM Rep #: [id number] : 1945 72 From: Becky Wharton MD [...] Potassium Excess Additional Instructions: FOLLOW UP WITH [employer] IN [place] IN ONE WEEK TO EDUCATE ABOUT LOW [...] 01/23/2018 Status: F Source: REJI 6:53 AM [facility] REPOSITORY TYPE CODE TESTS RESULT OUT OF REFERENCE UNITS RANGE LAB L501.080 70-110 mg/dL High BEDSIDE GLU 162 Result Comment: MANAGEMENT OF PATIENT CARE PER NURSING PROTOCOL Performed By: #### L501.080 #### [facility] Point [place] [address] BASIC METABOLIC Collected: 01/23/2018 Status: F Source: REJI PROFILE (BMP) 5:55 AM [facility] REPOSITORY TYPE CODE [...] GAP 6 Performed By: #### L500.2500 #### [facility] [address] [place], [place], [id number] CBC W/DIFF, AUTOMATED Collected: 01/23/2018 Status: F Source: [facility] 5:55 AM [facility] REPOSITORY TYPE CODE [...] COMMENT SCANNED Performed By: #### L100.0100 #### [facility] [address] [place], [address] BEDSIDE GLUCOSE Collected: 01/22/2018 Status: F Source: [facility] 9:59 PM [facility] REPOSITORY TYPE CODE TESTS RESULT OUT OF REFERENCE UNITS RANGE LAB L501.080 70-110 mg/dL High BEDSIDE GLU 247 Result Comment: MANAGEMENT OF PATIENT CARE PER NURSING PROTOCOL Performed By: #### L501.080 #### [facility] Point of Care [address] [facility] [place] [address] CONSULTATION Observed: 01/22/2018 Status: F Source: REJI 6:58 PM [facility] REPOSITORY [facility] Medical Records Department [address] [facility] [place] [address] Consultation 01/22/18 1844 MR#: [id number] Acct: [id number] Name: ANITA MCCALLUM Rep #: [id number] : 1945 72 From: Alesia Hercules MD PCP: Nicola Bay MD Status: ADM IN Location: [place] [address] Problem List (1) Acute kidney injury superimposed [...] Amlodipine Besylate (Norvasc) 5 mg PO DAILY [facility] Atenolol (Tenormin (Beta Geraldine)) 100 mg PO DAILY [facility] Dextrose (D50w Syringe) 0 gm IV X1 PRN; Protocol PRN Reason: Hypoglycemia Glucagon () 1 mg IM .X1 PRN PRN Reason: Hypoglycemia Sodium Chloride () 1,000 mls @ 75 mls/hr IV .[id number] [facility] Last Admin: 01/22/18 13:47 Dose: 75 mls/hr [...] paracentesis Avoid IV contrast No need of EMS DRIVER Check renal chem in am 2- Hyperkalemia: [...] continue to follow ALESIA HERCULES MD 01/22/18 2868 <Electronically signed by Alesia Hercules MD> Date Alesia Hercules MD Cosigner Signature (if applicable): Date CC: Alesia Hercules MD; Nicola Bay MD Signed HISTORY AND PHYSICAL Observed: 01/22/2018 Status: F Source: [facility] EXAM 4:42 PM [facility] REPOSITORY [facility] Medical Records Department [address] [place] [address] History and Physical 01/22/18 1153 MR#: [id number] Acct: [id number] Name: ANITA MCCALLUM Rep #: [id number] : 1945 72 From: Becky Wharton MD PCP: Nicola Bay MD Status: ADM IN Location: [place] [id number] Problem List (1) Hyperkalemia Status: Acute History [...] done was 2 days ago and her customer service associate office and she states 5.5 L of [...] 32. * Decision to transfer patient to [facility] on account of lack of Kayexalate in [...] Her niece will be her power of admitted attorneys. Family counseled to bring a copy of the living w1ll. Nayc-up-qfea time 15 minutes This note was generated with [employer] dictation software. It may contain incorrect words, spelling, and punctuation that were not noted in checking the note before signing. * Code Visit Inpatient E AND M: 44055 Subs Hosp L3 Procedures: 85167 Advncd Care Plan 30 Min 01/22/18 1642 <Electronically signed by Becky Wharton MD> Date Becky Wharton MD Cosigner Signature: Date (if applicable) CC: Becky Wharton MD; Nicola Bay MD Signed BEDSIDE GLUCOSE Collected: 01/22/2018 Status: F Source: REJI 4:37 PM [facility] REPOSITORY TYPE CODE TESTS RESULT OUT OF REFERENCE UNITS RANGE LAB L501.080 70-110 mg/dL High BEDSIDE GLU 282 Result Comment: MANAGEMENT OF PATIENT CARE PER NURSING PROTOCOL Performed By: #### L501.080 #### [facility] [address] [place] [address] BASIC METABOLIC Collected: 01/22/2018 Status: F Source: REJI PROFILE (BMP) 3:18 PM [facility] REPOSITORY TYPE CODE [...] GAP 8 Performed By: #### L500.2500 #### [facility] [address] [place], [address] URINE SODIUM Collected: 01/22/2018 Status: F Source: [facility] 2:05 [facility] REPOSITORY Order Comment: Order Date: 01/22/18 TYPE CODE TESTS RESULT OUT OF RANGE REFERENCE UNITS LAB L501.5500 Not Establ. mmol/L Normal UR NA 32 Performed By: #### L501.5500 #### [facility] [address] [facility] [place], [address] CREATININE, URINE Collected: 01/22/2018 Status: F Source: [facility] 2:05 [facility] REPOSITORY Order Comment: Order Date: 01/22/18 TYPE CODE TESTS RESULT OUT OF RANGE REFERENCE UNITS LAB L502.0300 NO RANGE EST. mg/dL Normal URINE 60.50 CREAT Performed By: #### L502.0300 #### [facility] [address] [place], [address] UREA NITROGEN, URINE Collected: 01/22/2018 Status: F Source: [facility] 2:05 [facility] REPOSITORY Order Comment: Order Date: 01/22/18 TYPE CODE TESTS RESULT OUT OF RANGE REFERENCE UNITS LAB L502.0715 NO RANGE EST. mg/dL Normal URINE 810 UREA Performed By: #### L502.0715 #### [facility] [address] [facility] [place], [address] URINALYSIS, COMPLETE Collected: 01/22/2018 Status: F Source: [facility] 2:05 [facility] REPOSITORY Order Comment: Order Date: 01/22/18 How was Urine Obtained? VENEER DEPARTMENT MANAGER TO SPECIFY TYPE CODE TESTS RESULT OUT [...] 0-5 SEEN Performed By: #### L400.0001 #### [facility] [address] [facility] [place], [address] KIDNEY AND BLADDER Observed: 01/22/2018 Status: F Source: [facility] 12:52 PM [facility] REPOSITORY [facility] Imaging Services [address] [place] [address] Kidney and Bladder MR#: [id number] Acct: [id number] Name: ANITA MCCALLUM Jelani Rep #: [id number] : 1945 F 72 From: Candice Patel MD PCP: Nicola Bay MD Status: ADM IN Study: Kidney and Bladder Date of Exam: 01/22/18 Exam# [id number] Ordering Dr: Becky Wharton MD STUDY: RENAL [...] CC: Becky Wharton MD; Nicola Bay MD Under Cutting Machine Operator: Signed EMERGENCY DEPARTMENT Observed: 01/22/2018 Status: F Source: [facility] SUMMARY 11:52 AM [facility] REPOSITORY [facility] Medical Records Department [address] [place] [address] Emergency Department Summary 01/22/18 1102 MR#: [id number] Acct: [id number] Name: ANITA MCCALLUM Rep #: [id number] : 1945 72 From: Jose Ellis MD [...] kidney injury This note was generated with [employer] dictation software. It may contain incorrect words, [...] problems, contact your Primary Care Provider. Call [facility] ([phone]) or report to the closest Emergency Room. Call 911 if necessary. 01/22/18 9182 <Electronically signed by Jose Ellis MD> Date Jose Ellis MD Cosigner Signature (If Indicated): Date CC: Nicola Bay MD CBC W/DIFF, AUTOMATED Collected: 01/22/2018 Status: F Source: REJI 11:07 AM [facility] REPOSITORY TYPE CODE [...] COMMENT SCANNED Performed By: #### L100.0100 #### [facility] [address], [address] BASIC METABOLIC Collected: 01/22/2018 Status: F Source: REJI PROFILE (BMP) 8:25 AM [facility] REPOSITORY TYPE CODE [...] 5 GAP Performed By: #### L500.2500 #### [facility] [address] [place], [address] CBC W/DIFF, AUTOMATED Collected: 01/21/2018 Status: F Source: REJI 1:59 PM [facility] REPOSITORY TYPE CODE [...] LYMPHOPENIA NOTED Performed By: #### L100.0100 #### [facility] [address] [place], [place], [address] COMPREHENSIVE METABOLIC Collected: 01/21/2018 Status: F Source: REJI [facility] 1:59 PM [facility] REPOSITORY TYPE CODE [...] 7 GAP Performed By: #### L500.4050 #### [facility] [address] [place], [place], [address] AMMONIA Collected: 01/21/2018 Status: F Source: REJI 1:59 PM [facility] REPOSITORY TYPE CODE TESTS RESULT OUT OF REFERENCE UNITS RANGE LAB L503.5510 11-32 umol/L High AMMONIA 39.0 Performed By: #### L503.5510 #### [facility] [address] [place], [place], [address] PARACENTESIS WITH US Observed: 01/20/2018 Status: F Source: REJI 12:20 PM [facility] REPOSITORY [facility] Imaging Services [address] [place] [address] Paracentesis with US MR#: [id number] Acct: [id number] Name: ANITA MCCALLUM Rep #: [id number] : 1945 F 72 From: Rigo Britt MD PCP: Nicola Bay MD Status: REG CLI Study: Paracentesis with US Date of Exam: 01/20/18 Exam# [id number] Ordering Dr: Abimael Castillo MD PROCEDURE: Ultrasound [...] the peritoneal cavity was accessed with a 5-Latvian paracentesis needle/catheter system. The trocar was removed. A total of 5500 ml of harsh-colored fluid were removed from the peritoneal cavity. The catheter was removed and a sterile dressing was applied. The procedure was well tolerated. US/Paracentesis with US IMPRESSION: Ultrasound guided paracentesis. Electronically Signed: Rigo Britt MD at 13:53 EDT Tel [phone], Service support , CC: Nicola Bay MD; Abimael Castillo Under Cutting Machine Operator: Signed PROTHROMBIN TIME W/INR Collected: 01/19/2018 Status: F Source: [facility] 12:16 PM [facility] REPOSITORY TYPE CODE TESTS RESULT OUT OF RANGE REFERENCE UNITS LAB L300.4150 11.7-14.9 SECONDS Normal PROTIME 13.4 LAB L300.4200 Normal INR 1.0 Performed By: #### L300.3900, L300.4310 #### [facility] [address] [place], [address] PARTIAL THROMBOPLAST Collected: 01/19/2018 Status: F Source: [facility] TIME 12:16 PM [facility] REPOSITORY TYPE CODE TESTS RESULT OUT OF RANGE REFERENCE UNITS LAB L300.4310 24.1-36.2 Seconds Normal PTT 27.9 Performed By: #### L300.3900, L300.4310 #### [facility] [address] [place], [address] PARACENTESIS WITH US Observed: 01/13/2018 Status: F Source: [facility] 12:17 PM [facility] REPOSITORY [facility] Imaging Services [address] [facility] [address] Paracentesis with US MR#: [id number] Acct: [id number] Name: ANITA MCCALLUM Rep #: [id number] : 1945 F 72 From: Shaheen Alcocer MD PCP: Nicola Bay MD Status: REG CLI Study: Paracentesis with US Date of Exam: 01/13/18 Exam# [id number] Ordering Dr: Abimael Castillo MD PROCEDURE: ULTRASOUND [...] , CC: Nicola Bay MD; Abimael Castillo Under Cutting Machine Operator: Signed PARACENTESIS WITH US Observed: 01/06/2018 Status: F Source: [facility] 12:14 PM [facility] REPOSITORY [facility] Imaging Services [address] [place] [address] Paracentesis with US MR#: [id number] Acct: [id number] Name: ANITA MCCALLUM Rep #: [id number] : 1945 F 72 From: Rigo Britt MD PCP: Nicola Bay MD Status: REG CL Study: Paracentesis with US Date of Exam: 01/06/18 Exam# [id number] Ordering Dr: Abimael Castillo MD PROCEDURE: Ultrasound [...] the peritoneal cavity was accessed with a 5-Latvian paracentesis needle/catheter system. The trocar was removed. A total of 4350 ml of harsh-colored fluid. were removed from the peritoneal cavity. The catheter was removed and a sterile dressing was applied. The procedure was well tolerated. US/Paracentesis with US IMPRESSION: Ultrasound guided paracentesis. Electronically Signed: Rigo Britt MD at 14:01 EDT Tel [phone], Service support , CC: Nicola Bay MD; Abimael Castillo Under Cutting Machine Operator: Signed BASIC METABOLIC Collected: 12/31/2017 Status: F Source: REJI PROFILE ([facility]) 2:21 PM [facility] REPOSITORY TYPE CODE [...] GAP 7 Performed By: #### L500.2500 #### [facility] [address] [place], [address] PARACENTESIS WITH US Observed: 12/30/2017 Status: F Source: [facility] 1:00 PM [facility] REPOSITORY [facility] Imaging Services [address] [place] [address] Paracentesis with US MR#: [id number] Acct: [id number] Name: ANITA MCCALLUM Rep #: [id number] : 1945 F 72 From: Rigo Britt MD PCP: Nicola Bay MD Status: REG CLI Study: Paracentesis with US Date of Exam: 12/30/17 Exam# [id number] Ordering Dr: Abimael Castillo MD PROCEDURE: Ultrasound [...] the peritoneal cavity was accessed with a 5-Latvian paracentesis needle/catheter system. The trocar was removed. A total of 4700 ml of harsh-colored fluid were removed from the peritoneal cavity. The catheter was removed and a sterile dressing was applied. The procedure was well tolerated. US/Paracentesis with US IMPRESSION: Ultrasound guided paracentesis. Electronically Signed: Rigo Britt MD at 15:17 EDT Tel [phone], Service support , CC: Nicola Bay MD; Abimael Castillo Under Cutting Machine Operator: Signed PARACENTESIS WITH US Observed: 12/23/2017 Status: F Source: REJI 10:19 AM [facility] REPOSITORY [facility] Imaging Services [address] [place] [address] Paracentesis with US MR#: [id number] Acct: [id number] Name: ANITA MCCALLUM Rep #: [id number] : 1945 F 72 From: Rigo Britt MD PCP: Nicola Bay MD Status: REG CLI Study: Paracentesis with US Date of Exam: 12/23/17 Exam# [id number] Ordering Dr: Abimael Castillo MD PROCEDURE: Ultrasound [...] the peritoneal cavity was accessed with a 5-Latvian paracentesis needle/catheter system. The trocar was removed. A total of 6550 ml of harsh-colored fluid were removed from the peritoneal cavity. The catheter was removed and a sterile dressing was applied. The procedure was well tolerated. US/Paracentesis with US IMPRESSION: Ultrasound guided paracentesis. Electronically Signed: Rigo Britt MD at 12:26 EDT Tel [phone], Service support , CC: Nicola Bay MD; Abimael Castillo Under Cutting Machine Operator: Signed PROTHROMBIN TIME W/INR Collected: 12/20/2017 Status: F Source: REJI 11:46 AM [facility] REPOSITORY TYPE CODE TESTS RESULT OUT OF RANGE REFERENCE UNITS LAB L300.4150 11.7-14.9 SECONDS Normal PROTIME 13.8 LAB L300.4200 Normal INR 1.1 Performed By: #### L300.3900, L300.4310 #### [facility] [address] [place], [address] PARTIAL THROMBOPLAST Collected: 12/20/2017 Status: F Source: REJI TIME 11:46 AM [facility] REPOSITORY TYPE CODE TESTS RESULT OUT OF RANGE REFERENCE UNITS LAB L300.4310 24.1-36.2 Seconds Normal PTT 27.5 Performed By: #### L300.3900, L300.4310 #### [facility] [address] [place], [address] UNILAT LT SCRN Observed: 12/20/2017 Status: F Source: REJI W/CAD 10:43 AM [facility] REPOSITORY [facility] Imaging Services [address] [place] [address] UNILAT LT SCRN W/CAD MR#: [id number] Acct: [id number] Name: ANITA MCCALLUM Rep #: [id number] : 1945 F 72 From: Rigo Britt MD PCP: Nicola Bay MD Status: REG CLI Study: UNILAT LT SCRN W/CAD Date of Exam: 12/20/17 Exam# [id number] Ordering Dr: Nicola Bay MD MAMMOGRAPHY - [...] delay biopsy of a clinically suspicious abnormality. [id number] Electronically Signed: Rigo Britt MD at 14:54 EDT Tel [phone], Service support , CC: Nicola Bay MD Under Cutting Machine Operator: Signed PARACENTESIS WITH US Observed: 12/17/2017 Status: F Source: STROUD 2:05 PM [facility] REPOSITORY [facility] Imaging Services [address] [place] [address] Paracentesis with US MR#: [id number] Acct: [id number] Name: XENAANITA K Rep #: [id number] : 1945 F 72 From: Rigo Britt MD PCP: Nicola Bay MD Status: REG CLI Study: Paracentesis with US Date of Exam: 12/17/17 Exam# [id number] Ordering Dr: Abimael Castillo MD PROCEDURE: Ultrasound [...] the peritoneal cavity was accessed with a 5-Latvian paracentesis needle/catheter system. The trocar was removed. A total of 3000 ml of harsh-colored fluid were removed from the peritoneal cavity. The catheter was removed and a sterile dressing was applied. The procedure was well tolerated. US/Paracentesis with US IMPRESSION: Ultrasound guided paracentesis. Electronically Signed: Rigo Britt MD at 15:14 EDT Tel [phone], Service support , CC: Nicola Bay MD; Abimael Castillo Under Cutting Machine Operator: Signed PARACENTESIS WITH US Observed: 12/10/2017 Status: F Source: STROUD 10:15 AM [facility] REPOSITORY [facility] Imaging Services [address] [place] [address] Paracentesis with US MR#: [id number] Acct: [id number] Name: ANITA MCCALLUM Rep #: [id number] : 1945 F 72 From: Rigo Britt MD PCP: Nicola Bay MD Status: REG CLI Study: Paracentesis with US Date of Exam: 12/10/17 Exam# [id number] Ordering Dr: Abimael Castillo MD PROCEDURE: Ultrasound [...] the peritoneal cavity was accessed with a 5-Latvian paracentesis needle/catheter system. The trocar was removed. A total of 6350 ml of harsh-colored fluid were removed from the peritoneal cavity. The catheter was removed and a sterile dressing was applied. The procedure was well tolerated. US/Paracentesis with US IMPRESSION: Ultrasound guided paracentesis. Electronically Signed: Rigo Britt MD at 12:30 EDT Tel [phone], Service support , CC: Nicola Bay MD; Abimael Casitllo Under Cutting Machine Operator: Signed DOWNTIME REPORT Observed: 12/09/2017 Status: F Source: REJI 1:53 PM [facility] Medical Records Department [address] [facility] [place] [address] Downtime Report MR#: [id number] Acct: [id number] Name: ANITA MCCALLUM Rep #: [id number] : 1945 72 From: Agapito Ashford PCP: Nicola Bay MD Status: REG CLI This patient was seen during an EMR downtime November 22, 2017 - November 29, 2017. This patient may have a combination of paper and electronic documentation or all paper documentation. All documentation is viewable within the e-chart portion of [employer] for each patient visit. DOWNTIME REPORT Observed: 12/09/2017 Status: F Source: REJI 12:23 PM [facility] Medical Records Department [address] [place] [address] Downtime Report MR#: [id number] Acct: [id number] Name: ANITA MCCALLUM Rep #: [id number] : 1945 72 From: Agapito Ashford PCP: Nicola Bay MD Status: REG CLI This patient was seen during an EMR downtime November 22, 2017 - November 29, 2017. This patient may have a combination of paper and electronic documentation or all paper documentation. All documentation is viewable within the e-chart portion of [employer] for each patient visit. DOWNTIME REPORT Observed: 12/09/2017 Status: F Source: REJI 12:17 PM [facility] Medical Records Department [address] [place] [address] Downtime Report MR#: [id number] Acct: [id number] Name: ANITA MCCALLUM Rep #: [id number] : 1945 72 From: Agapito Ashford PCP: Nicola Bay MD Status: REG CLI This patient was seen during an EMR downtime November 22, 2017 - November 29, 2017. This patient may have a combination of paper and electronic documentation or all paper documentation. All documentation is viewable within the e-chart portion of [employer] for each patient visit. PARACENTESIS WITH US Observed: 12/02/2017 Status: F Source: REJI 12:13 PM [facility] Imaging Services [address] [place] [address] Paracentesis with US MR#: [id number] Acct: [id number] Name: ANITA MCCALLUM Rep #: [id number] : 1945 F 72 From: Samra Martinez MD PCP: Nicola Bay MD Status: REG CLI Study: Paracentesis with US Date of Exam: 12/02/17 Exam# [id number] Ordering Dr: Abimael Castillo MD PROCEDURE: ULTRASOUND [...] 10 mL of lidocaine 1% a 5 Latvian drainage catheter is introduced in the lower [...] , CC: Nicola Bay MD; Abimael Castillo Under Cutting Machine Operator: Signed PROGRESS Observed: 12/01/2017 Status: COMPLETED Source: PALATKA 11:29 AM [facility] REPOSITORY O ID: [id number] Author: Nicola Price Service: (none) Author Type: [...] bone metastases. She didn't recall seeing a weasand trimmer in 2009. She denied musculoskeletal pain but [...] She is under the care of a customer service associate. Evidently there is plan for further workup [...] No spider angiomas. No palmar erythema. NEUROLOGIC: basket turner II-XII are grossly intact. 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.818) Pancytopenia [...] DO CNOVSP Observed: 12/01/2017 Status: COMPLETED Source: DAMON 10:50 AM [facility] REPOSITORY Visit (SP) Office (HEMJERED) ANITA MCCALLUM ([id number]) 1945 F Date Time Provider Department 12/01/17 [...] bone metastases. She didn't recall seeing a weasand trimmer in 2009. She denied musculoskeletal pain but [...] She is under the care of a customer service associate. Evidently there is plan for further workup [...] No spider angiomas. No palmar erythema. NEUROLOGIC: basket turner II-XII are grossly intact. 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.818) Pancytopenia [...] Nicola Price DO Referring Provider: NICOLA PRICE [[id number]] Allergies As of Date: 12/01/2017 Noted Allergy Reaction BIAXIN (CLARITHROMYCIN) 06/12/2009 POTASSIUM IODIDE 06/12/2009 Date Reviewed: 12/01/2017 Reviewed by: Viv Santiago (Digital Project Coordinator) ARNALDO Elizabeth - Fully Assessed Reason for [...] [D73.1] INVALID FOR* Visit Notes: >> Viv Santiago (Arnaldo) ARNALDO Elizabeth WedDec 01, 2017 11:08 AM Status: Signed Est pt, discuss recent lab results, 6 month f/u Viv Pamela Elizabeth LPN Encounter Status:Closed by NICOLA PRICE DO on 12/01/17 WOUND CTR HISTORY Observed: 11/30/2017 Status: F Source: REJI AND PHYSICAL 9:52 AM [facility] REPOSITORY [facility] Wound Healing Center [address] [facility] [address] Wound Ctr History AND Physical 11/30/17 0942 MR#: [id number] Acct: [id number] Name: ANITA MCCALLUM Rep #: [id number] : 1945 72 From: Jose Alfredo Barnett [...] of other providers, including Dr. Castillo, a customer service associate. It is suspected that the lower extremity [...] Recorded Date Recorded By Document 11/30/17 09:17 [id number] 11/30/17 09:21 Wound Center Nurse 1 [Ulcer [...] WITH US Observed: 11/29/2017 Status: F Source: STROUD 10:32 AM [facility] REPOSITORY [facility] Imaging Services [address] [place] [address] Paracentesis with US MR#: [id number] Acct: [id number] Name: ANITA MCCALLUM Rep #: [id number] : 1945 F 72 From: Samra Martinez MD PCP: Nicola Bay MD Status: REG CL Study: Paracentesis with US Date of Exam: 11/22/17 Exam# [id number] Ordering Dr: Abimael Castillo MD PROCEDURE: ULTRASOUND [...] 10 mL of lidocaine 1% a 5 Latvian drainage catheter is introduced in the lower [...] , CC: Nicola Bay MD; Abimael Castillo Under Cutting Machine Operator: Signed PARACENTESIS WITH US Observed: 11/25/2017 Status: F Source: REJI 9:05 AM [facility] REPOSITORY [facility] Imaging Services [address] [place] [address] Paracentesis with US MR#: [id number] Acct: [id number] Name: ANITA MCCALLUM Rep #: [id number] : 1945 F 72 From: Samra Martinez MD PCP: Nicola Bay MD Status: REG CLI Study: Paracentesis with US Date of Exam: 11/25/17 Exam# [id number] Ordering Dr: Abimael Castillo MD PROCEDURE: ULTRASOUND [...] 10 mL of lidocaine 1% a 5 Latvian drainage catheter is introduced in the lower [...] , CC: Nicola Bay MD; Abimael Castillo Under Cutting Machine Operator: Signed FERRITIN Collected: 11/24/2017 Status: F Source: PALATKA 12:51 PM [facility] REPOSITORY TYPE CODE TESTS RESULT OUT OF REFERENCE UNITS RANGE LAB FERR 14.7-205.1 ng/mL Test Ferritin sent to [facility]. Result Comment: Account Credited HIDE IRON AND TIBC Collected: 11/24/2017 Status: F Source: PALATKA 12:51 PM [facility] REPOSITORY TYPE CODE TESTS RESULT OUT OF REFERENCE UNITS RANGE LAB IRN 41-186 ug/dL Test Iron sent to [facility]. Result Comment: Account Credited HIDE LAB TIBC 232-386 ug/dL Test sent TIBC to [facility]. Result Comment: Account Credited [facility] LAB SAT 15-57 % Transferrin Test sent Saturatn to [facility]. Result Comment: Account Credited [facility] HEADLEYOSTER ABS GR + CBC Collected: 11/24/2017 Status: F Source: PALATKA 12:50 PM [facility] REPOSITORY TYPE CODE TESTS RESULT OUT OF REFERENCE UNITS RANGE LAB WWBC 3.70-11.00 k/uL Low Ferdinand WBC 2.18 LAB WRBC 3.90-5.20 m/uL Low Reji RBC 3.36 LAB WHGB 11.5-15.5 g/dL Low Ferdinand Hemoglobin 10.4 LAB WHCT 36.0-46.0 % Low Ferdinand Hematocrit 32.1 LAB WMCV 80.0-100.0 fL Ferdinand MCV 95.5 LAB WMCH 26.0-34.0 pg Ferdinand MCH 31.0 LAB WMCHC 30.5-36.0 g/dL Reji MCHC 32.4 LAB WRDW 11.5-15.0 % Reji RDW 14.5 LAB WPLT 150-400 k/uL Low Ferdinand Platelet Cnt 65 Result Comment: NO CLOT DETECTED LAB WMPV 9.0-12.7 fL Ferdinand MPV 10.4 Result Comment: Test performed at: [facility], [address] [place] [address] [place] [address]. LAB ABGRAN 1.45-7.50 k/uL Absol Gran 1.59 Count REJI ISTAT BMP Collected: 11/24/2017 Status: F Source: PALATKA 12:50 PM [facility] REPOSITORY TYPE CODE TESTS RESULT OUT [...] IRON+IRON BINDING Collected: 11/24/2017 Status: F Source: [facility] 12:24 PM [facility] REPOSITORY Order Comment: RESULT(S) PREVIOUSLY REPORTED ON MANUAL REQUISITION DURING DOWNTIME. TYPE CODE TESTS RESULT OUT OF RANGE REFERENCE UNITS LAB L503.6075 250-450 ug/dL Low TIBC 232 LAB L503.6150 50-170 ug/dL IRON Normal 115 LAB L503.6250 15.0-55.0 % IRON Normal SATURATION 49.6 Performed By: #### L503.6030, L503.6550 #### [facility] [address] [place], [address] FERRITIN Collected: 11/24/2017 Status: F Source: STROUD 12:24 PM [facility] REPOSITORY Order Comment: RESULT(S) PREVIOUSLY REPORTED ON MANUAL REQUISITION DURING DOWNTIME. TYPE CODE TESTS RESULT OUT OF REFERENCE UNITS RANGE LAB L503.6550 8-252 ng/mL High FERRITIN 339 Performed By: #### L503.6030, L503.6550 #### [facility] [address] [place], [address] PROTHROMBIN TIME W/INR Collected: 11/22/2017 Status: F Source: STROUD 9:40 AM [facility] REPOSITORY Order Comment: RESULT(S) PREVIOUSLY REPORTED ON MANUAL REQUISITION DURING DOWNTIME. TYPE CODE TESTS RESULT OUT OF RANGE REFERENCE UNITS LAB L300.4150 11.7-14.9 SECONDS Normal PROTIME 13.9 LAB L300.4200 Normal INR 1.1 Performed By: #### L300.3900, L300.4310 #### [facility] [address] [place], [address] PARTIAL THROMBOPLAST Collected: 11/22/2017 Status: F Source: STROUD TIME 9:40 AM [facility] REPOSITORY Order Comment: RESULT(S) PREVIOUSLY REPORTED ON MANUAL REQUISITION DURING DOWNTIME. TYPE CODE TESTS RESULT OUT OF RANGE REFERENCE UNITS LAB L300.4310 24.1-36.2 Seconds Normal PTT 29.4 Performed By: #### L300.3900, L300.4310 #### [facility] [address] [place], [address] PARACENTESIS WITH US Observed: 11/19/2017 Status: F Source: STROUD 1:59 PM [facility] REPOSITORY [facility] Imaging Services [address] [place] [address] Paracentesis with US MR#: [id number] Acct: [id number] Name: ANITA MCCALLUM Jelani Rep #: [id number] : 1945 F 72 From: Rigo Britt MD PCP: Nicola Bay MD Status: REG CLJayden Study: Paracentesis with US Date of Exam: 11/19/17 Exam# [id number] Ordering Dr: Abimael Castillo MD PROCEDURE: Ultrasound [...] the peritoneal cavity was accessed with a 5-Latvian paracentesis needle/catheter system. The trocar was removed. A total of 8000 ml of harsh-colored fluid were removed from the peritoneal cavity. The catheter was removed and a sterile dressing was applied. The procedure was well tolerated. US/Paracentesis with US IMPRESSION: Ultrasound guided paracentesis. Electronically Signed: Rigo Britt MD at 15:41 EDT Tel [phone], Service support , CC: Nicola Bay MD; Abimael Castillo Under Cutting Machine Operator: Signed ALBUMIN, SERUM Collected: 11/19/2017 Status: F Source: REJI 9:32 AM [facility] REPOSITORY Order Comment: Serial Specimen #1, #2 or #3? 1 TYPE CODE TESTS RESULT OUT OF RANGE REFERENCE UNITS LAB L501.1800 3.2-5.0 g/dL Low ALB 2.7 Performed By: #### L501.1800, L501.2450, L504.2610 #### [facility] [address] [place], [address] LIPASE Collected: 11/19/2017 Status: F Source: REJI 9:32 AM [facility] REPOSITORY Order Comment: Serial Specimen #1, #2 or #3? 1 TYPE CODE TESTS RESULT OUT OF RANGE REFERENCE UNITS LAB L501.2450 73-393 U/L Normal LIPASE 167 Performed By: #### L501.1800, L501.2450, L504.2610 #### [facility] [address] [place], [address] LDH Collected: 11/19/2017 Status: F Source: REJI 9:32 AM [facility] REPOSITORY Order Comment: Serial Specimen #1, #2 or #3? 1 TYPE CODE TESTS RESULT OUT OF RANGE REFERENCE UNITS LAB L504.2610 84-246 U/L Normal LDH 190 Performed By: #### L501.1800, L501.2450, L504.2610 #### [facility] [address] [place], [address] BASIC METABOLIC Collected: 11/17/2017 Status: F Source: REJI PROFILE (BMP) 2:09 PM [facility] REPOSITORY TYPE CODE [...] GAP 7 Performed By: #### L500.2500 #### [facility] [address] [place], [address] WOUND CTR HISTORY Observed: 11/16/2017 Status: F Source: REJI AND PHYSICAL 10:12 AM [facility] REPOSITORY [facility] Wound Healing Center [address] [place] [address] Wound Ctr History AND Physical 11/16/17 1004 MR#: [id number] Acct: [id number] Name: ANITA MCCALLUM Rep #: [id number] : 1945 72 From: Jose Alfredo Barnett [...] History of Present Illness Date of Service: 05/29/18 Chief Complaint: Chronic swelling and edema in [...] of other providers, including Dr. Castillo, a customer service associate. It is suspected that the lower extremity [...] right lower extremity. Wound Measurements and Assessment - Nurse 1 - General Ulcer Measurement Start: 10/21/17 13:50 Freq: Status: Active Protocol: Activity Type Activity Date Activity User E-Sign Co-Sign Detail Recorded Client Recorded Date Recorded By Document 11/16/17 09:41 [id number] 11/16/17 09:43 Wound Center Nurse 1 [Ulcer Assessment] #1- RT LAT GONZALEZ -Combined with other wound No -Current Size (cm) - Length 0 WC - Nurse 2 - General Ulcer CM Notes Start: 10/21/17 13:50 Freq: Status: Active Protocol: Activity Type Activity Date Activity User E-Sign Co-Sign Detail Recorded Client Recorded Date Recorded By Document 11/16/17 10:01 [id number] 11/16/17 10:01 SERGIO Wound Center Nurse 2 Musculoskeletal: No Muscle [...] Recorded Date Recorded By Document 10/26/17 12:46 [id number] 10/26/17 12:47 Wound Center Nurse 2 Wound [...] F Source: REJI AND PHYSICAL 10:06 AM [facility] REPOSITORY [facility] Wound Healing Center [address] [place] [address] Wound Ctr History AND Physical 11/09/17 0956 MR#: [id number] Acct: [id number] Name: ANITA MCCALLUM Rep #: [id number] : 1945 72 From: Jose Alfredo Barnett [...] of other providers, including Dr. Castillo, a customer service associate. It is suspected that the lower extremity [...] Date Recorded By Document 11/09/17 09:18 DONALDO [id number] 11/09/17 09:21 DONALDO HASSAN - Nurse 2 - General Ulcer CM Notes Start: 10/21/17 13:50 Freq: Status: Active Protocol: Activity Type Activity Date Activity User E-Sign Co-Sign Detail Recorded Client Recorded Date Recorded By Document 11/09/17 09:48 SERGIO [id number] 11/09/17 09:49 SERGIO Wound Center Nurse 2 [Procedure/Treatment] #1- RT LAT GONZALEZ -Time 09:48 -Correct Patient Yes Neurological: Cranial nerves II-XII grossly intact, Neuro grossly intact Psych/Mental Status: Normal Affect, Appropriate, Alert and oriented to time, place, person, mood and affect Debridement Note Post-Debridement Measurements/Treatment MO - Nurse 2 - General Ulcer CM [...] W / Collected: 11/05/2017 Status: F Source: REIJ PHOTO 10:57 AM [facility] REPOSITORY TYPE CODE [...] Comment: Physician questions regarding Calculi Analysis contact [facility] at: [phone]. LAB L3650.2800 . Normal COMMENT Comment Result Comment: Calculi report with photograph will follow via computer, mail or foley artist delivery. LAB L3650.2900 . Normal Disclaimer Comment Result Comment: This test was developed and its performance characteristics determined by [facility]. It has not been cleared or approved by the Food and Drug Administration. Performed at: [address] [id number] Sod Cutter: Daniel Man MD, Phone: [phone] Performed By: #### L3650.0100 #### [facility]refer to [facility] for specific site) refer to report for address and phone number ABDOMEN/PELVIS WITHOUT Observed: 11/03/2017 Status: F Source: REJI CONT 9:59 AM [facility] REPOSITORY [facility] Imaging Services [address] [place] [address] Abdomen/Pelvis without Cont MR#: [id number] Acct: [id number] Name: ANITA MCCALLUM Rep #: [id number] : 1945 F 72 From: Rigo Britt MD PCP: Nicola Bay MD Status: REG CLI Study: Abdomen/Pelvis without Cont Date of Exam: 11/03/17 Exam# [id number] Ordering Dr: Iveth Woody ELECTRONIC DEVELOPMENT TECHNICIAN-C STUDY: CT ABDOMEN AND PELVIS WITHOUT CONTRAST [...] Rigo Britt MD at 11:24 EDT Tel [phone], Service support , CC: Nicola Bay MD; Iveth Woody NP Under Cutting Machine Operator: Signed ABDOMEN SINGLE VIEW Observed: 11/02/2017 Status: F Source: REJI 4:05 PM [facility] REPOSITORY [facility] Imaging Services [address] [place] [address] Abdomen Single View MR#: [id number] Acct: [id number] Name: ANITA MCCALLUM Rep #: [id number] : 1945 F 72 From: Fabricio Short DO PCP: Nicola Bay MD Status: REG CLI Study: Abdomen Single View Date of Exam: 11/02/17 Exam# [id number] Ordering Dr: Rob Busby MD STUDY: X-RAY [...] Fabricio Short DO at 22:39 EDT Tel [phone], Service support , CC: Rob Busby MD; Nicola Bay MD Under Cutting Machine Operator: Signed WOUND CTR HISTORY Observed: 11/02/2017 Status: F Source: REJI AND PHYSICAL 9:32 AM [facility] REPOSITORY [facility] Wound Healing Center [address] [place] [address] Wound Ctr History AND Physical 11/02/17 0922 MR#: [id number] Acct: [id number] Name: ANITA MCCALLUM Rep #: [id number] : 1945 72 From: Jose Alfredo Barnett [...] Date Recorded By Document 11/02/17 08:53 DV [id number] 11/02/17 08:59 DV Wound Center Nurse 1 [...] Recorded Date Recorded By Document 11/02/17 09:12 SERGIO [id number] 11/02/17 09:16 SERGIO Wound Center Nurse 2 [Procedure/Treatment] #2 LEFT [...] WITH US Observed: 10/27/2017 Status: F Source: STROUD 1:56 PM [facility] REPOSITORY [facility] Imaging Services [address] [place] [address] Paracentesis with US MR#: [id number] Acct: [id number] Name: XENAANITA K Rep #: [id number] : 1945 F 71 From: Rigo Britt MD PCP: Nicola Bay MD Status: REG CLI Study: Paracentesis with US Date of Exam: 10/27/17 Exam# [id number] Ordering Dr: Abimael Castillo MD PROCEDURE: Ultrasound [...] the peritoneal cavity was accessed with a 5-Latvian paracentesis needle/catheter system. The trocar was removed. A total of 3600 ml of harsh-colored fluid were removed from the peritoneal cavity. The catheter was removed and a sterile dressing was applied. The procedure was well tolerated. US/Paracentesis with US IMPRESSION: Ultrasound guided paracentesis. Electronically Signed: Rigo Britt MD at 15:20 EDT Tel [phone], Service support , CC: Nicola Bay MD; Abimael Castillo Under Cutting Machine Operator: Signed WOUND CTR HISTORY Observed: 10/26/2017 Status: F Source: REJI AND PHYSICAL 1:07 PM [facility] REPOSITORY [facility] Wound Healing Center [facility] [place] [address] Wound Ctr History AND Physical 10/26/17 1254 MR#: [id number] Acct: [id number] Name: ANITA MCCALLUM Rep #: [id number] : 1945 71 From: Jose Alfredo Barnett [...] and will again be performed tomorrow, at [facility]. The swelling and edema in the patient's [...] Recorded Date Recorded By Document 10/26/17 12:05 [id number] 10/26/17 12:16 Wound Center Nurse 1 [Ulcer Assessment] #2 LEFT GONZALEZ ULCER -Combined with other wound No WC - Nurse 2 - General Ulcer CM Notes Start: 10/21/17 13:50 Freq: Status: Active Protocol: Activity Type Activity Date Activity User E-Sign Co-Sign Detail Recorded Client Recorded Date Recorded By Document 10/26/17 12:46 [id number] 10/26/17 12:47 Wound Center Nurse 2 [Procedure/Treatment] [...] Recorded Date Recorded By Document 10/26/17 12:46 [id number] 10/26/17 12:47 Wound Center Nurse 2 No [...] primary care physician in this regard. 10/26/17 3926 <Electronically signed by Jose Alfredo Barnett MD> Date Jose Alfredo Barnett MD CC: Signed 12 LEAD ELECTROCARDIOGRAM Observed: 10/25/2017 Status: F Source: STROUD 2:17 PM [facility] REPOSITORY [facility] Cardiovascular Services [address] [place] [address] 12 Lead EKG 10/22/17 1536 MR#: [id number] Acct: [id number] Name: ANITA MCCALULM Rep #: [id number] : 1945 71 From: Americo Gomez MD [...] T wave abnormality Abnormal ECG Confirmed by JASON SHAW, AMERICO ([id number]), map editor MARLEY ASHFORD ([id number]) on 10/25/2017 2:16:38 PM Referred By: WAI Confirmed By:AMERICO GOMEZ MD 10/25/17 1416 Date Americo Gomez MD CC: Nicola Bay MD; Antonio Aguayo DO Signed EMERGENCY DEPARTMENT Observed: 10/22/2017 Status: F Source: STROUD SUMMARY 6:25 PM [facility] REPOSITORY [facility] Medical Records Department [address] [place] [address] Emergency Department Summary 10/22/17 1822 MR#: [id number] Acct: [id number] Name: ANITA MCCALLUM Rep #: [id number] : 1945 71 From: Antonio Aguayo DO [...] [Dizziness-resolved Dyspnea-resolved] This note was generated with [employer] dictation software. It may contain incorrect words, [...] problems, contact your Primary Care Provider. Call [facility] ([phone]) or report to the closest Emergency Room. Call 911 if necessary. 10/22/171824 <Electronically signed by Antonio Aguayo DO> Date Eden Wai DO Cosigner Signature (If Indicated): Date CC: Nicola Bay MD DISCHARGE INSTRUCTION Observed: 10/22/2017 Status: F Source: REJI 6:25 PM [facility] REPOSITORY [facility] Medical Records Department [facility] [place] [address] Discharge Instruction 10/22/171824 MR#: [id number] Acct: [id number] Name: HALLEY MCCALLUMRA Palomares Rep #: [id number] : 1945 71 From: Antonio Aguayo DO PCP: Nicola Bay MD Status: REG ER ED Disposition - Plan for ED Patient: Chief Complaint: Dizziness Instructions: ED Dizziness [facility] Referrals: Nicola Bay MD [Primary Care Provider] - 3-5 Days What to do if you have Problems For any increased pain, shortness of breath, bleeding, nausea or vomiting, chest pain, or any unexpected problems, contact your Primary Care Provider. Call [facility] ([phone]) or report to the closest Emergency Room. Call 911 if necessary. 10/22/171824 <Electronically signed by Antonio Aguayo DO> Date Eden Wai DO Cosigner Signature (If Indicated): Date CC: Nicola Bay MD URINALYSIS, COMPLETE Collected: 10/22/2017 Status: F Source: REJI 5:10 PM [facility] REPOSITORY Order Comment: [...] URINE SEEN Performed By: #### L400.0001 #### [facility] [address] [place], [address] CBC W/DIFF, AUTOMATED Collected: 10/22/2017 Status: F Source: REJI 3:34 PM [facility] REPOSITORY TYPE CODE [...] MOD DEC Performed By: #### L100.0100 #### [facility] [address] [place], [address] BASIC METABOLIC Collected: 10/22/2017 Status: F Source: STROUD PROFILE ([facility]) 3:34 PM [facility] REPOSITORY Order Comment: 'TROP' [...] 4 Performed By: #### L500.2500, L501.4010 #### [facility] [address] [place], [address] TROPONIN-I Collected: 10/22/2017 Status: F Source: STROUD 3:34 PM [facility] REPOSITORY Order Comment: 'TROP' Serial specimen #1, #2, #3, or #4: 1 TYPE CODE TESTS RESULT OUT OF RANGE REFERENCE UNITS LAB L501.4010 <0.06 ng/mL Normal < 0.02 TROPONIN-I Result Comment: TROPONIN-I EXPECTED VALUES <0.05 NEGATIVE 0.06 - 0.59 AT RISK OF NV > OR = 0.60 SUGGEST NV Performed By: #### L500.2500, L501.4010 #### [facility] [address] [place], [address] LDH,BODY FLUID Collected: 10/22/2017 Status: F Source: STROUD 2:22 PM [facility] REPOSITORY Order Comment: Specimen Source: ASCITES TYPE CODE TESTS RESULT OUT OF RANGE REFERENCE UNITS LAB L504.0250 Not Establ. Units/l Normal LDH,BF 62 Performed By: #### L504.0250 #### [facility] [address] [place], [address] BODY FLUID CELL Collected: 10/22/2017 Status: C Source: REJI COUNT+DIFF 2:22 PM [facility] REPOSITORY Order Comment: PARACENTESIS [...] SEE COMMENT Performed By: #### L200.0200 #### [facility] [address] [place], [address] Observed: 10/22/2017 Status: F Source: REJI CULTURE, BODY FLUID 2:22 PM [facility] REPOSITORY List Antibiotics Last 48 Hours? . List Antibiotics to be Started? . Gram Stain Gram Stain No cells seen No organisms seen Body Fluid Cult No growth aerobically. Cult, Anaerobic No growth in 5 days. Performed By: #### M100.1300 #### [facility] [address] [place], [address] FLUID/WASHING Observed: 10/22/2017 Status: F Source: REJI 2:22 PM [facility] REPOSITORY Patient: ANITA MCCALLUM : 1945 (71/F) Acct Num: [id number] Phys: Abimael Castillo Unit Num: [id number] Loc: US Specimen: [id number] Received: 10/25/17 - 1159 Spec Type: Fluid TISSUES TISSUES: PARACENTESIS FLUID CYTOLOGY GROSS Received is 85 ml of slightly cloudy yellow fluid labeled with the patient's name and and designated per the requisition as paracentesis. Submitted for cytology preparation including cell block. / 10/25/17 TC:5 CPT: 04292, 13415 CYTOLOGY STUDY Slides are reviewed. The specimen consists of macrophages, mesothelial cells and inflammatory cells. DIAGNOSIS CYTOLOGY Paracentesis fluid for cytology (cytospin): Negative for malignant cells. SJ:ivy 10/26/17 HEADER OPERATION: Ultrasound-guided paracentesis PRE-OP DIAGNOSIS: Ascites TISSUE SUBMITTED: Paracentesis fluid for cytology Signed Vamsi Ramires 10/26/17 <signature on file> Performed By: #### PFLU #### [facility] [address] [place], [address] CYTOLOGY, BODY FLUID / Collected: 10/22/2017 Status: F Source: REJI CSF 2:22 PM [facility] REPOSITORY Order Comment: Specimen Source: ASCITES TYPE CODE TESTS RESULT OUT OF RANGE REFERENCE UNITS LAB L350.1000 SEE Normal PATHOLOGY CYTOLOGY,BF REPORT /CSF Result Comment: Specimen submitted to Anatomical Pathology Department for testing. Performed By: #### L350.1000 #### [facility] [address] [place], [address] MISCELLANEOUS LAB Collected: 10/22/2017 Status: F Source: REJI PROCEDURE 2 2:22 PM [facility] REPOSITORY Order Comment: Interface Comments: paracentesis fluid. List Test(s) Ordered by Physician: [id number] 2ml ref. TYPE CODE TESTS RESULT OUT OF RANGE REFERENCE UNITS LAB L801.1543 Normal [facility] LAB TEST 2 Result Comment: TEST RESULT UNITS REF INTERVAL Lipase, Fluid 18 U/L INTERPRETIVE INFORMATION: Lipase, Fluid For information on body fluid reference ranges and/or interpretive guidance visit [email or web address]/ Test developed and characteristics determined by [employer]. See Compliance Statement B: [employer]/ Albumin, Body Fluid 1.2 g/dL : Peritoneal [...] clinical context for interpretation. TESTING PERFORMED AT [facility]. ORIGINAL REPORT ON FILE IN LAB CONTAINS ADDITIONAL TEST SITE INFORMATION. Performed By: #### L801.1543 #### [facility] [address] [place], [address] PROTEIN, BODY FLUID Collected: 10/22/2017 Status: F Source: STROUD 2:22 PM [facility] REPOSITORY Order Comment: Specimen Source: PARACENTESIS FLUID TYPE CODE TESTS RESULT OUT OF RANGE REFERENCE UNITS LAB L503.0300 Not Establ. g/dL Normal 2.5 PROTEIN,BF Performed By: #### L503.0300 #### [facility] [address] [place], [address] MISCELLANEOUS LAB Collected: 10/22/2017 Status: F Source: STROUD PROCEDURE 2:22 PM [facility] REPOSITORY Order Comment: Interface Comments: paracentesis fluid. Test(s) Ordered: [id number] 1ml room temp TYPE CODE TESTS RESULT OUT OF RANGE REFERENCE UNITS LAB L801.1541 Normal [facility] LAB TEST Result Comment: TEST RESULT LIMITS Lipase, Fluid 18 U/L INTERPRETIVE INFORMATION: Lipase, Fluid For information on body fluid reference ranges and/or interpretive guidance visit [email or web address]/ Test developed and characteristics determined by [facility] [employer]. See Compliance Statement B: [employer]/CS TESTING PERFORMED AT [facility]. ORIGINAL REPORT ON FILE IN LAB CONTAINS ADDITIONAL TEST SITE INFORMATION. Performed By: #### L801.1541 #### [facility] [address] [place], [address] CHEST 1 VIEW Observed: 10/22/2017 Status: F Source: REJI 2:13 PM [facility] REPOSITORY [facility] Imaging Services [address] [place] [address] Chest 1 View MR#: [id number] Acct: [id number] Name: ANITA MCCALLUM Rep #: [id number] : 1945 F 71 From: Samra Martinez MD PCP: Nicola Bay MD Status: REG CLI Study: Chest 1 View Date of Exam: 10/22/17 Exam# [id number] Ordering Dr: Samra Martinez MD STUDY: X-RAY [...] CC: Samra Martinez MD; Nicola Bay MD Under Cutting Machine Operator: Signed PARACENTESIS WITH US Observed: 10/22/2017 Status: F Source: REJI 11:45 AM [facility] REPOSITORY [facility] Imaging Services [address] [place] [address] Paracentesis with US MR#: [id number] Acct: [id number] Name: ANITA MCCALLUM Rep #: [id number] : 1945 F 71 From: Samra Martinez MD PCP: Nicola Bay MD Status: REG CLI Study: Paracentesis with US Date of Exam: 10/22/17 Exam# [id number] Ordering Dr: Abimael Castillo MD PROCEDURE: ULTRASOUND [...] 10 mL of lidocaine 1% a 5 Latvian drainage catheter is introduced in the lower part of the abdomen. 75714 mL of fluid were removed sample sent to lab for evaluation. The patient tolerated the procedure there was no immediate complication. FINDINGS: FLUID PRE-PROCEDURE There is posterior enhancement. The findings appear anechoic. There is no loculation. Volume measurement: 81441 ml. FLUID POST-PROCEDURE Amount of fluid drained: 86619 ml. US/Paracentesis with US IMPRESSION: Successful ultrasound-guided paracentesis. Electronically Signed: Samra Martinez MD at 14:47 EDT Tel , Service support , CC: Nicola Bay MD; Abimael Castillo Under Cutting Machine Operator: Signed PROTHROMBIN TIME W/INR Collected: 10/20/2017 Status: F Source: REJI 9:58 AM [facility] REPOSITORY TYPE CODE TESTS RESULT OUT OF RANGE REFERENCE UNITS LAB L300.4150 11.7-14.9 SECONDS Normal PROTIME 14.0 LAB L300.4200 Normal INR 1.1 Performed By: #### L300.3900, L300.4310 #### [facility] [address] [place], [place], [address] PARTIAL THROMBOPLAST Collected: 10/20/2017 Status: F Source: REJI TIME 9:58 AM [facility] REPOSITORY TYPE CODE TESTS RESULT OUT OF RANGE REFERENCE UNITS LAB L300.4310 24.1-36.2 Seconds Normal PTT 30.4 Performed By: #### L300.3900, L300.4310 #### [facility] [address] [place], [place], [address] LIVER PROFILE Collected: 10/20/2017 Status: F Source: REJI 9:58 AM [facility] REPOSITORY TYPE CODE [...] BILI 0.21 Performed By: #### L500.3400 #### [facility] [address] [place], [place], [address] PLATELET COUNT Collected: 10/20/2017 Status: F Source: STROUD 9:58 AM [facility] REPOSITORY TYPE CODE TESTS RESULT OUT OF RANGE REFERENCE UNITS LAB L100.1900 150-450 K/mm3 Low PLT 78 Performed By: #### L100.1900 #### [facility] [address] [place], [address] ANTINUCLEAR ANTIBODIES Collected: 10/20/2017 Status: F Source: REJI DIRECT 9:58 AM [facility] REPOSITORY TYPE CODE TESTS RESULT OUT OF RANGE REFERENCE UNITS LAB L3100.5475 Negative Normal Negative JATIN-DIRECT Result Comment: Performed at: - [facility] [address] [id number] Sod Cutter: Abimael Lopez PhD, Phone: [phone] Performed By: #### L3100.5475 #### [facility] (refer to report for specific site) refer to report for address and phone number WOUND CTR HISTORY Observed: 10/18/2017 Status: F Source: REJI AND PHYSICAL 3:06 PM [facility] REPOSITORY [facility] Wound Healing Center [address] [place] [address] Wound Ctr History AND Physical 10/18/17 1439 MR#: [id number] Acct: [id number] Name: ANITA MCCALLUM Rep #: [id number] : 1945 71 From: Jose Alfredo Barnett [...] has an appointment with Dr. 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 Lives: Alone Smoking Status: Never smoker Tobacco [...] Recorded Date Recorded By Document 10/18/17 12:53 [id number] 10/18/17 12:58 Wound Center Nurse 1 [Ulcer Assessment] #2 LEFT GONZALEZ ULCER -Combined with other wound No -Current Size (cm) - Length 0.9 WC - Nurse 2 - General Ulcer CM Notes Start: 09/21/17 12:56 Freq: Status: Active Protocol: Activity Type Activity Date Activity User E-Sign Co-Sign Detail Recorded Client Recorded Date Recorded By Document 10/18/17 14:00 [id number] 10/18/17 14:09 Neurological: Cranial nerves II-XII grossly [...] ABDOMEN COMPLETE Observed: 10/16/2017 Status: F Source: STROUD 10:17 AM [facility] REPOSITORY [facility] Imaging Services [address] [place] [address] [place] [address] Abdomen Complete MR#: [id number] Acct: [id number] Name: ANITA MCCALLUM Rep #: [id number] : 1945 F 71 From: Atilio Candelaria MD PCP: Nicola Bay MD Status: REG CLI Study: Abdomen Complete Date of Exam: 10/16/17 Exam# [id number] Ordering Dr: Nicola Bay MD STUDY: ABDOMINAL [...] Service support , CC: Nicola Bay MD Under Cutting Machine Operator: Signed ABD INC DECUB Observed: 10/13/2017 Status: F Source: REJI AND/OR ERECT 12:33 PM [facility] REPOSITORY [facility] Imaging Services [facility] [place] [address] Abd Inc Decub and/or Erect MR#: [id number] Acct: [id number] Name: ANITA MCCALLUM Rep #: [id number] : 1945 F 71 From: Isac Blevins MD PCP: Nicola Bay MD Status: REG CLI Study: Abd Inc Decub and/or Erect Date of Exam: 10/13/17 Exam# [id number] Ordering Dr: Nicola Bay MD STUDY: X-RAY [...] Service support , CC: Nicola Bay MD Under Cutting Machine Operator: Signed CBC W/DIFF, AUTOMATED Collected: 10/13/2017 Status: F Source: STROUD 12:30 PM [facility] REPOSITORY TYPE CODE [...] Lymph 0.46 Performed By: #### L100.0100 #### [facility] [address] [place], [address] COMPREHENSIVE METABOLIC Collected: 10/13/2017 Status: F Source: [facility] 12:30 PM [facility] REPOSITORY TYPE CODE [...] GAP 5 Performed By: #### L500.4050 #### [facility] [address] [facility] [place], [address] LOWER EXT ARTERIAL Observed: 08/06/2017 Status: F Source: [facility] 6:38 AM [facility] REPOSITORY [facility] Cardiovascular Services [address] [place] [address] 08/06/17 0634 MR#: [id number] Acct: [id number] Name: ANITA MCCALLUM Jelani Rep #: [id number] : 1945 71 From: Jose Alfredo Barnett MD Attending Dr: Rob Claire DPM Status: REG RCR Ordering Dr: Date: 08/06/17 Location: [facility] Sex: F C Admitted: Arterial Study - [...] resting noninvasive lower extremity trial study bilaterally. 08/06/1738 <Electronically signed by Jose Alfredo Barnett MD> Date Jose Alfredo Barnett MD CC: Rob Claire DPM; Nicola Bay MD Date Dictated: 08/06/17633 Date Transcribed: 08/06/17633 Under Cutting Machine Operator: SYLVAIN Vieyra VENOUS DUPLEX LOWER Observed: 08/02/2017 Status: F Source: STROUD EXTREMITY 9:59 PM [facility] REPOSITORY [facility] Cardiovascular Services [address] [place] [address] Venous Duplex US - Raheel Extrem 08/02/17 1236 MR#: [id number] Acct: [id number] Name: ANITA MCCALLUM Rep #: [id number] : 1945 71 From: Jose Alfredo Barnett [...] preliminary report was called and/or faxed to [facility]. Interpretation Summary Deep veins of [...] Date Dictated: 08/02/17 1236 Date Transcribed: 08/02/172158 Under Cutting Machine Operator: Signed WOUND CTR HISTORY Observed: 07/20/2017 Status: F Source: REJI AND PHYSICAL 3:22 PM [facility] REPOSITORY [facility] Wound Healing Center [address] [address] Wound Ctr History AND Physical 07/20/17 1513 MR#: [id number] Acct: [id number] Name: ANITA MCCALLUM Rep #: [id number] : 1945 71 From: Rob Claire DPM PCP: Nicola Bay MD Status: REG RCR Y Location: (1) Non-pressure chronic ulcer of other part [...] Date Recorded By Document 07/20/17 12:50 BMF [id number] 07/20/17 13:15 BMF Wound Center Nurse 1 [Ulcer Assessment Protocol: WC.WD.LOC] - Nurse 2 - General Ulcer CM Notes Start: 07/20/17 12:30 Freq: Status: Active Protocol: Activity Type Activity Date Activity User E-Sign Co-Sign Detail Recorded Client Recorded Date Recorded By Document 07/20/17 14:03 MW [id number] 07/20/17 14:19 MW Wound Center Nurse 2 [Procedure/Treatment] #1- RT LAT GONZALEZ -Time 14:04 -Correct Patient Yes -Correct Side, Site, Position Yes -Correct Procedure Yes Debridement Note Post-Debridement Measurements/Treatment - Nurse 2 - General Ulcer CM Notes Start: 07/20/17 12:30 Freq: Status: Active Protocol: Activity Type Activity Date Activity User E-Sign Co-Sign Detail Recorded Client Recorded Date Recorded By Document 07/20/17 14:03 MW [id number] 07/20/17 14:19 MW Wound Center Nurse 2 [...] layer exposed (Acute) Assessment: See diagnoses 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 SQ/excisional debridement R gonzalez ulcer as [...] AND FIBULA Observed: 07/20/2017 Status: F Source: STROUD 2 VIEWS 3:05 PM [facility] REPOSITORY [facility] Imaging Services [address] [place] [address] Tibia AND Fibula 2 Views MR#: [id number] Acct: [id number] Name: ANITA MCCALLUM Rep #: [id number] : 1945 F 71 From: Fabricio Short DO PCP: Nicola Bay MD Status: REG RCR Study: Tibia AND Fibula 2 Views Date of Exam: 07/20/17 Exam# [id number] Ordering Dr: Rob Claire DPM STUDY: X-RAY [...] edema of the lower leg. Electronically Signed: Fabriciomike Short DO at 23:52 EST Tel [phone], Service support , CC: Rob Claire DPM; Nicola Bay MD Under Cutting Machine Operator: Signed CBC W/DIFF, AUTOMATED Collected: 07/20/2017 Status: F Source: REJI 3:03 PM [facility] REPOSITORY TYPE CODE [...] SCANNED Performed By: #### L100.0100, L101.9900 #### [facility] [address] [place], [address] ERYTHROCYTE SED RATE Collected: 07/20/2017 Status: F Source: STROUD 3:03 PM [facility] REPOSITORY TYPE CODE TESTS RESULT OUT OF RANGE REFERENCE UNITS LAB L102.0000 0-30 mm/hr High SED RATE 37 Performed By: #### L100.0100, L101.9900 #### [facility] [address] [place], [address] HEMOGLOBIN A1C Collected: 07/20/2017 Status: F Source: STROUD 3:03 PM [facility] REPOSITORY TYPE CODE TESTS RESULT OUT OF RANGE REFERENCE UNITS LAB L501.9985 4.2-6.3 % Normal HGB A1C 6.0 Performed By: #### L501.9985 #### [facility] [address] [place], [place], [address] COMPREHENSIVE METABOLIC Collected: 07/20/2017 Status: F Source: [facility] 3:03 PM [facility] REPOSITORY TYPE CODE [...] Performed By: #### L500.4050, L501.6710, L506.0500 #### [facility] [address] [facility] [place], [place], [address] CRP Collected: 07/20/2017 Status: F Source: STROUD 3:03 PM [facility] REPOSITORY TYPE CODE [...] Performed By: #### L500.4050, L501.6710, L506.0500 #### [facility] [address] [place], [place], [address] PREALBUMIN Collected: 07/20/2017 Status: F Source: REJI 3:03 PM [facility] REPOSITORY TYPE CODE TESTS RESULT OUT OF REFERENCE UNITS RANGE LAB L506.0500 20.0-40.0 mg/dL Low PREALBUMIN 9.8 Performed By: #### L500.4050, L501.6710, L506.0500 #### [facility] [address] [place], [address] ALLERGIES ALLERGIES DATE TYPE / NAME / CODE REACTION SEVERITY SOURCE CODE 02/03/2018 Drug iodine/[id number](RX Unknown Unknown Reji Allergy/41 NORM) [facility] [id number]([facility]) Repository 02/03/2018 Drug clarithromycin/F0060 Unknown Unknown Reji Allergy/41 97539(RXNORM) [facility] [id number]([facility]) Repository 06/12/2009 DRUG CLARITHROMYCIN [address] [id number]([facility]) 06/12/2009 DRUG POTASSIUM IODIDE [address] [id number]([facility]) ENCOUNTERS ENCOUNTERS ADMIT/DISCHARGE ACCOUNT NUMBER ADMITTING ENCOUNTER LOCATION SOURCE CLASS 07/14/2018 [id number] Ambulatory [facility] ding:MEDOUTP Repository 07/07/2018 [id number] Ambulatory [facility] ding:MEDOUTP Repository 06/30/2018 [id number] [facility] ding:[facility] Repository 06/29/2018 [id number] Ambulatory [facility] ding:LAB Repository 06/23/2018 [id number] Ambulatory [facility] ding:[facility]OUTP Repository 06/16/2018 [id number] Ambulatory [facility] ding:MEDOUTP Repository 06/09/2018 [id number] Ambulatory [facility] ding:MEDOUTP Repository 06/06/2018 [id number] Ambulatory [facility] ding:[facility] Repository 06/06/2018 [id number] [facility]ulatory [facility] Repository 06/02/2018 [id number] Ambulatory [place] [facility] Repository 05/27/2018 [id number] [facility] [place] [facility] Repository 05/25/2018 [id number] [facility] [place] [facility] Repository 05/19/2018 [id number] Ambulatory [facility] Re[facility] Repository 05/11/2018 [id number] Ambulatory [place] [facility] Repository 05/05/2018 [id number] Ambulatory Re[place] [facility] ding[facility] Repository 04/28/2018 [id number] Ambulatory [place] [facility] ding[facility] Repository 04/27/2018/05/20/20 [id number] Ambulatory [place] [address] [place] [address] [facility] Repository 04/21/2018 [id number] Ambulatory [place] [facility] Repository 04/12/2018 [id number] Ambulatory [place] [facility] ding[facility] Repository 03/31/2018 [id number] Ambulatory Reji [place] [facility] ding:[facility] Repository 03/29/2018 [id number] Ambulatory [facility] Re[facility] ding[facility]NS Repository 03/24/2018 [id number] Ambulatory Re[place] [facility] ding:[facility] Repository 03/17/2018 [id number] Ambulatory [place] [facility] ding[facility] Repository 03/10/2018 [id number] [facility] [place] [facility] Repository 03/08/2018/03/09/20 [id number] Ambulatory [address] Repository 03/03/2018 [id number] [facility] Rep[facility] 03/01/2018/03/02/20 [id number] Ambulatory [address] Repository 03/01/2018 [id number] [facility] Repository 02/28/2018/02/29/20 [id number] Ambulatory Reji Ferdinand[address] Hospital ding:NS Repository 02/24/2018 [id number] [facility] Repository 02/22/2018 [id number] [facility]LAB Repository 02/17/2018 [id number] [facility] Repository 02/10/2018 [id number] [facility]MED[facility] Repository 02/03/2018 [id number] [facility]US Repository 01/27/2018/01/28/20 [id number] Ambulatory Ferdinand Ferdinand[address] ding:MEDOUTP Repository 01/27/2018 [id number] [facility] Rep[facility] 01/26/2018 [id number] [facility] ding[facility]MFPLAB Repository 01/25/2018 [id number] Ambulatory [facility] Hospital ding:LAB.FUT Repository URE 01/24/2018/01/25/20 [id number] Ambulatory BBuilding:[place] Jhon[address] Repository 01/22/2018 [id number] Becky Wharton Ambulatory BMSBuilding: Ferdinand Maki [facility] Repository 01/22/2018/01/24/20 [id number] Becky Wharton Inpatient Reji Reji [facility] ding:PCURoom Repository : VUP030Ebb: 1 01/22/2018/01/24/20 [id number] Ambulatory BMSBuilding: Reji 18 [facility] Hospital Repository 01/22/2018 [id number] [facility]LAB Repository 01/21/2018 [id number] [facility] ding:MFPLAB Repository 01/20/2018 [id number] [facility] 01/13/2018 [id number] [facility] Repository 01/06/2018 [id number] [facility] Repository 12/31/2017 [id number] [facility] ding:MTLAB Repository 12/30/2017 [id number] [facility]ulatory [facility]ji Ferdinand [facility] ding[facility]US Repository 12/29/2017 [id number] Ambulatory [facility]ji Ferdinand [facility] ding:WC Repository 12/23/2017 [id number] [facility] Repository 12/20/2017 [id number] [facility]OPBI Repository 12/17/2017 [id number] [facility] ding[facility]US Repository 12/14/2017/12/19/19 [id number] Ambulatory Reji Reji [address] [place] [address] HospitalBumn Hospital ding:WC Repository 12/10/2017 [id number] [facility] Repository 12/02/2017 [id number] [facility]US Repository 12/01/2017/12/03/19 [id number] Ambulatory [address] [place] Repository 11/25/2017 [id number] [facility]US Repository 11/24/2017 [id number] [facility] ding:LABSPEC Repository 11/24/2017/11/26/19 [id number] Ambulatory [address] [place] Repository 11/22/2017 [id number] Ambulatory Ferdinand Ferdinand [facility] ding:US Repository 11/19/2017 [id number] [facility]US Repository 11/17/2017 [id number] [facility] ding:MTLAB Repository 11/16/2017/11/19/19 [id number] Ambulatory Ferdinand Ferdinand [address] [place] [address] Hospital[facility]umn Hospital ding:WC Repository 11/05/2017 [id number] [facility] Repository 11/03/2017 [id number] [facility]CT Repository 11/02/2017 [id number] [facility]RAD Repository 10/27/2017 [id number] Ambulatory Reji Re[facility] Hospital ding:US Repository 10/22/2017/10/23/19 [id number] Emergency Reji Reji 18 [facility] ding:ED Repository 10/22/2017 [id number] [facility]US Repository 10/18/2017/10/19/19 [id number] Ambulatory Ferdinand Reji [address] [place] [address] Hospital ding:WC Repository 10/16/2017 [id number] [facility] Repository 10/13/2017 [id number] Ambulatory Ferdinand [facility] Hospital ding:MTLAB Repository 09/17/2017/09/19/19 [id number] Ambulatory Ferdinand Reji [address] [place] [address] Hospital ding:WC Repository 08/29/2017 [id number] Ambulatory [facility] Hospital ding:CVS Repository 08/17/2017/08/18/19 [id number] Ambulatory Reji Ferdinand [address] [place] [address] Hospital ding:WC Repository 08/02/2017/08/18/19 [id number] Ambulatory Reji Reji 18 [facility] Hospital ding:CVS Repository 07/20/2017/07/21/19 [id number] Ambulatory Reji Ferdinand [address] [place] [address] Hospital ding:WC Repository PAYERS PAYERS ENCOUNTER GUARANTOR PAYER SUBSCRIBER SOURCE 07/14/2018 ANITA Palomares Primary ANITA [id number] Insurance:[facility] LYNOB: Community [place] MEDIC[id number] Number: Repository 44162Jyv: (399) [id number] [phone] () Date:7366-71-87KK [address] [place] [address] 90263UQ: 07/14/2018 Secondary NOT GIVENUNK Reji Insurance:SELF PAY [facility] Effective Repository Date:2018-05-25 07/07/2018 ANITA Palomares Primary ANITA Palomares Ferdinand [id number] Insurance:SUMMA CARE KEELERDOB: Community BRANDON MEDICAREPolicy [id number] Number: Repository 30746Otj: 330 [id number] [phone] (HP) Date:8764-82-56RI [address] [place] [address] 67710DM: 07/07/2018 Secondary NOT GIVENUNK Reji Insurance:SELF PAY [facility] Number: Effective Repository Date:2018-05-25 06/30/2018 ANITA Palomares Primary ANITA Palomares Ferdinand [id number] Insurance:SUMMA CARE KEELERDOB: Community BRANDON MEDICAREPolicy [id number] Number: Repository 87021Jwh: (330 [id number] [phone] () Date:9299-48-35BS [address] [place] [address] 55453WY: 06/30/2018 Secondary NOT GIVENUNK Ferdinand Insurance:SELF PAY [facility] Number: Effective Repository Date:2018-05-25 06/29/2018 ANITA Palomares Primary ANITA Palomares Reji [id number] Insurance:SUMMA CARE KEELERDOB: Community BR[place] MEDICAREPolicy [id number] Number: Repository 33322Qaf: 330 [id number] [phone] () Date:0276-32-02UC [address] [place] [address] 45536VM: 06/29/2018 Secondary NOT GIVENUNK Ferdinand Insurance:SELF PAY [facility] Number: Effective Repository Date:2018-05-23 06/23/2018 ANITA Palomares Primary ANITA Palomares Ferdinand [id number] Insurance:SUMMA CARE KEELERDOB: Community BR[place] MEDICAREPolicy [id number] Number: Repository 89955Qvy: 330 [id number] [phone] (HP) Date:1297-11-67ET BOX [facility] [place] [address]MT: 06/23/2018 Secondary NOT GIVENUNK Reji Insurance:SELF PAY [facility] Effective Repository Date:2018-05-25 06/16/2018 ANITA Palomares Primary ANITA Palomares Reji [id number] Insurance:SUMMA CARE KEELERDOB: Community [place] MEDICAREPolicy [id number] Number: Repository 93894Miv: 330 [id number] [phone] (HP) Date:7281-52-58MO [address] [place] [address] 68427KT: 06/16/2018 Secondary NOT GIVENUNK Reji Insurance:SELF PAY [facility] Number: Effective Repository Date:2018-04-12 06/09/2018 ANITA Palomares Primary ANITA Palomares Ferdinand [id number] Insurance:SUMMA CARE KEELERDOB: Community [place] MEDICARE[place] 1946[place] Number: Repository 26662Rzg: (330 [id number] [phone] (HP) Date:9419-96-64WD [address] [place] [address] 08478VL: 06/09/2018 Secondary NOT GIVENUNK Ferdinand Insurance:SELF PAY [facility] Number: Effective Repository Date:2018-04-12 06/06/2018 ANITA Palomares Primary ANITA Palomares Reji [id number] Insurance:SUMMA CARE KEELERDOB: Community [place] MEDICAREPolicy [id number] Number: Repository 93795Mcj: (330 [id number] [phone] (HP) Date:3798-56-17MN [address] [place] [address] 33282DU: 06/06/2018 Secondary NOT GIVENUNK Ferdinand Insurance:SELF PAY [facility] Number: Effective Repository Date:2018-05-26 06/06/2018 ANITA K Primary ANITA K Ferdinand [id number] Insurance:SUMMA CARE KEELERDOB: Community [place] MEDICAREPolicy [facility] [place] Number[place] Repository 64[address]Sey: (330 [id number] [phone] (HP) Date:9338-83-88QP [address] [place] [address] 43179VC: 06/06/2018 Secondary NOT GIVENUNK Reji Insurance:SELF PAY [facility] Number: Effective Repository Date:2018-06-06 06/02/2018 ANITA K Primary ANITA K Reji [id number] Insurance:SUMMA CARE KEELERDOB: Community [place] MEDICAREPolicy 1947[facility]05[facility] [place] Number: Repository 49984Xiy: (330 [id number] [phone] (HP) Date:0889-78-62SP [address] [place] [address] 38598QL: 06/02/2018 Secondary NOT GIVENUNK Ferdinand Insurance:SELF PAY [facility] Number: Effective Repository Date:2018-04-12 05/27/2018 ANITA K Primary ANITA Palomares Reji [id number] Insurance:SUMMA CARE KEELERDOB: Community [place] MEDICAREPolicy 1946[facility]05[facility] [place] Number: Repository 01937Tjh: (330 [id number] [phone] (HP) Date:9314-99-29KZ [address] [place] [address] 87471OL: 05/27/2018 Secondary NOT GIVENUNK Ferdinand Insurance:SELF PAY [facility] Number: Effective Repository Date:2018-04-12 05/25/2018 ANITA K Primary ANITA K Ferdinand [id number] Insurance:SUMMA CARE KEELERDOB: Community [place] MEDICAREPolicy 1947[facility]05[facility] [place] Number: Repository 653[address]Gdo: (330 [id number] [phone] (HP) Date:3261-94-30YM [address] [place] [address] 22972WX: 05/25/2018 Secondary NOT GIVENUNK Ferdinand Insurance:SELF PAY [facility] Number: Effective Repository Date:2018-05-25 05/19/2018 ANITA Palomares Primary ANITA Palomares Ferdinand [id number] Insurance:SUMMA CARE KEELERDOB: Community [place] MEDICAREPolicy [id number] Number: Repository 46856Zzg: 330 [id number] [phone] (HP) Date:6291-31-39KO [address] [place] [address] 75525YY: 05/19/2018 Secondary NOT GIVENUNK Ferdinand Insurance:SELF PAY [facility] Number: Effective Repository Date:2018-04-12 05/11/2018 ANITA Palomares Primary ANITA Palomares Reji [id number] Insurance:SUMMA CARE KEELERDOB: Community [place] MEDICAREPolicy [id number] Number: Repository 89648Xpa: 330 [id number] [phone] () Date:9943-36-34WR [address] [place] [address] 98558TV: 05/11/2018 Secondary NOT GIVENUNK Ferdinand Insurance:SELF PAY [facility] Number: Effective Repository Date:2018-04-12 05/05/2018 ANITA Palomares Primary ANITA Palomares Reji [id number] Insurance:SUMMA CARE KEELERDOB: Community [place] MEDICAREPolicy [id number] Number: Repository 40525Wss: 330 [id number] [phone] (HP) Date:5001-17-91WW [address] [place] [address] 05988BW: 05/05/2018 Secondary NOT GIVENUNK Ferdinand Insurance:SELF PAY [facility] Number: Effective Repository Date:2018-04-12 04/28/2018 ANITA Palomares Primary ANITA Palomares Reji [id number] Insurance:SUMMA CARE KEELERDOB: Community BR[place] MEDICAREPolicy [id number] Number: Repository 16479Oii: 330 [id number] [phone] (HP) Date:3428-46-14ME [address] [place] [address] 80798QE: 04/28/2018 Secondary NOT GIVENUNK Ferdinand Insurance:SELF PAY [facility] Number: Effective Repository Date:2018-04-12 04/27/2018 ANITA Palomares Primary ANITA Palomares Ferdinand [id number] Insurance:SUMMA CARE KEELERDOB: Community BR[employer] MEDICAREPolicy [id number] Number: Repository 36979Njn: (330 [id number] [phone] (HP) Date:6496-14-05FM [address] [place] [address] 86131HZ: 04/27/2018 Secondary NOT GIVENUNK Ferdinand Insurance:SELF PAY [facility] Number: Effective Repository Date:2018-03-04 04/21/2018 ANITA Palomares Primary ANITA Palomares Reji [id number] Insurance:SUMMA CARE KEELERDOB: Community BR[place] MEDICAREPolicy [id number] Number: Repository 16617Atu: (330 [id number] [phone] (HP) Date:0506-35-72HI [address] [place] [address] 89748TU: 04/21/2018 Secondary NOT GIVENUNK Reji Insurance:SELF PAY [facility] Number: Effective Repository Date:2018-02-18 04/12/2018 ANITA Palomares Primary ANITA Palomares Ferdinand [id number] Insurance:SUMMA CARE KEELERDOB: Community BR[place] MEDICAREPolicy [id number] Number: Repository 90763Fli: (330 [id number] [phone] (HP) Date:6644-59-32BY [address] [place] [address] 17220IM: 04/12/2018 Secondary NOT GIVENUNK Reji Insurance:SELF PAY [facility] Number: Effective Repository Date:2018-02-18 03/31/2018 ANITA Palomares Primary ANITA Palomares Ferdinand [id number] Insurance:SUMMA CARE KEELERDOB: Community [place] MEDICAREPolicy [facility] [place] Number: Repository 04332Vps: (330 [id number] [phone] (HP) Date:9142-84-33QU [address] 03999AV: 03/31/2018 Secondary NOT GIVENUNK Ferdinand Insurance:SELF PAY [facility] Number: Effective Repository Date:2018-02-18 03/29/2018 ANITA Palomares Primary ANITA Palomares Reji [id number] Insurance:SUMMA CARE KEELERDOB: Community [place] MEDICAREPolicy 1947-05-[facility] [place] Number: Repository 67513Zdt: (330 [id number] [phone] (HP) Date:9077-68-09LN [address] 90483GY: 03/29/2018 Secondary NOT GIVENUNK Ferdinand Insurance:SELF PAY [facility] Number: Effective Repository Date:2018-03-21 03/24/2018 ANITA Palomares Primary ANITA Palomares Ferdinand [id number] Insurance:SUMMA CARE KEELERDOB: Community [place] MEDICAREPolicy 1947-05-11[facility] [place] Number: Repository 68874Qsr: (330) [id number] [phone] (HP) Date:5477-99-31DK [address] 03171MR: 03/24/2018 Secondary NOT GIVENUNK Ferdinand Insurance:SELF PAY [facility] Number: Effective Repository Date:2018-02-18 03/17/2018 ANITA Palomares Primary ANITA Palomares Ferdinand [id number] Insurance:SUMMA CARE KEELERDOB: Community [place] MEDICAREPolicy 1947[facility]05-[facility] [place] Number[place] Repository 03927Olt: (330 [id number] [phone] (HP) Date:1009-32-12HY [address] [place] [address] 24040FC: 03/17/2018 Secondary NOT GIVENUNK Reji Insurance:SELF PAY [facility] Number: Effective Repository Date:2018-02-18 03/10/2018 ANITA Palomares Primary ANITA Palomares Reji [id number] Insurance:SUMMA CARE KEELERDOB: Community [place] MEDICAREPolicy [id number] Number: Repository 64665Fkh: (330) [id number] [phone] (HP) Date:2154-86-21KQ [address] [place] [address] 44996VV: 03/10/2018 Secondary NOT GIVENUNK Ferdinand Insurance:SELF PAY [facility] Number: Effective Repository Date:2018-02-18 03/03/2018 ANITA Palomares Primary ANITA Palomares Ferdinand [id number] Insurance:SUMMA CARE KEELERDOB: Community BR[place] MEDICAREPolicy [id number] Number: Repository 51073Rdv: 330 [id number] [phone] (HP) Date:8610-07-40LF [address] 78991XZ: 03/03/2018 Secondary NOT GIVENUNK Ferdinand Insurance:SELF PAY [facility] Number: Effective Repository Date:2018-02-18 03/01/2018 ANITA Palomares Primary ANITA Palomares Reji [id number] Insurance:SUMMA CARE KEELERDOB: Community [place] MEDICAREPolicy [id number] Number: Repository 11084Ckd: 330 [id number] [phone] (HP) Date:3241-38-47BV [address] [place] [address] 91794SX: 03/01/2018 Secondary NOT GIVENUNK Ferdinand Insurance:SELF PAY [facility] Number: Effective Repository Date:2018-03-01 02/28/2018 ANITA Palomares Primary ANITA Palomares Reji [id number] Insurance:SUMMA CARE KEELERDOB: Community BR[place] MEDICAREPolicy [id number] Number: Repository 54560Wyg: (330 [id number] [phone] (HP) Date:7985-80-29LK [address] [place] [address] 49057IF: 02/28/2018 Secondary NOT GIVENUNK Reji Insurance:SELF PAY [facility] Number: Effective Repository Date:2018-02-25 02/24/2018 ANITA K Primary ANITA K Reji [id number] Insurance:SUMMA CARE KEELERDOB: Community BR[place] MEDICAREPolicy [id number] Number: Repository 02790Nll: (330) [id number] [phone] (HP) Date:5908-66-65HE [address] [place] [address] 53264FB: 02/24/2018 Secondary NOT GIVENUNK Ferdinand Insurance:SELF PAY [facility] Number: Effective Repository Date:2018-01-28 02/22/2018 ANITA K Primary ANITA K Reji [id number] Insurance:SUMMA CARE KEELERDOB: Community [place] MEDICAREPolicy [facility] [place] Number: Repository 56202Mvx: (330) [id number] [phone] (HP) Date:1451-66-53JA [address] [place] [address] 51093QV: 02/22/2018 Secondary NOT GIVENUNK Reji Insurance:SELF PAY [facility] Number: Effective Repository Date:2018-02-22 02/17/2018 ANITA K Primary ANITA K Ferdinand [id number] Insurance:SUMMA CARE KEELERDOB: Community [place] MEDICAREPolicy [facility] [place] Number: Repository 90446Nja: (330) [id number] [phone] (HP) Date:3921-17-27UB [address] [place] [address] 66221AZ: 02/17/2018 Secondary NOT GIVENUNK Ferdinand Insurance:SELF PAY [facility] Number: Effective Repository Date:2018-01-28 02/10/2018 ANITA Palomares Primary ANITA Palomares Reji [id number] Insurance:SUMMA CARE KEELERDOB: Community [place] MEDICAREPolicy [facility] [place] Number: Repository 50053Rvc: (330 [id number] [phone] (HP) Date:6617-06-24UL [address] [place] [address] 28709VY: 02/10/2018 Secondary NOT GIVENUNK Ferdinand Insurance:SELF PAY [facility] Number: Effective Repository Date:2018-01-28 02/03/2018 Anita Palomares Primary Anita Palomares Ferdinand [id number] Insurance:SUMMA CARE KeelerDOB: Community [place] MEDICAREPolicy [facility] [place] Number: Repository 65057Uzo: (330 [id number] [phone] (HP) Date:3791-97-88JW [address] 29068RA: 02/03/2018 Secondary NOT GIVENUNK Ferdinand Insurance:SELF PAY [facility] Number: Effective Repository Date:2018-01-13 01/27/2018 Anita Palomares Primary Anita Palomares Reji [id number] Insurance:SUMMA CARE KeelerDOB: Community [place] MEDICAREPolicy [facility] [place] Number[place] Repository 65646Rjv: (330) [id number] [phone] (HP) Date:5335-99-82OH [address] [place] [address] 31621TS: 01/27/2018 Secondary NOT GIVENUNK Ferdinand Insurance:SELF PAY [facility] Number: Effective Repository Date:2018-01-27 01/27/2018 Anita Palomares Primary Anita Palomares Ferdinand [id number] Insurance:SUMMA CARE KeelerDOB: Community BR[place] MEDICAREPolicy [facility]-05-[facility] [place] Number[place] Repository 90470Scg: (330) [id number] [phone] (HP) Date:9747-05-97WH BOX [facility] [address]HF: 01/27/2018 Secondary NOT GIVENUNK Ferdinand Insurance:SELF PAY [facility] Number: Effective Repository Date:2018-01-13 01/26/2018 Anita Palomares Primary Anita Palomares Reji [id number] Insurance:[facility] Community [place] MEDICAREPolicy [id number] Number: Repository 61351Eij: (330) [id number] [phone] (HP) Date:4399-28-66DD [address] [place] [address] 40544ZH: 01/26/2018 Secondary NOT GIVENUNK Ferdinand Insurance:SELF PAY [facility] Number: Effective Repository Date:2018-01-26 01/25/2018 Anita Palomares Primary [id number] Community [place] MEDICAREPolicy [id number], [place] Number: Repository 60293Nck: (330) [id number] [phone] (HP) Date:2716-16-68CT [address] [place] [address] 33889KB: 01/25/2018 Secondary NOT GIVENUNK Ferdinand Insurance:SELF PAY [facility] Number: Effective Repository Date:2018-01-25 01/24/2018 ANITA Palomares Primary ANITA [facility]omares [facility] [id number] MEDICARE HMOPolicy [id number] Repository HILARIO Number: [place], [place] [id number] [place], [place] [address]Vpy: (330) Date:2018-01-03 53700Akv: 1490-17-28Ykeb [phone] (HP)Tel: (363) Name:[address] (HP) (WP) [address], [place] [phone] (WP) [address]WY: 01/22/2018 Anita Palomares Primary Anita Palomares Reji [id number] Insurance:SUMMA CARE KeelerDOB: Community BRANDON MEDICAREPolicy [facility] [place] Repository 01021Ett: (330) [id number] [phone] (HP) Date:4857-76-56GM [address] [place] [address] 11873YE: 01/22/2018 Secondary NOT GIVENUNK Ferdinand Insurance:SELF PAY [facility] Number: Effective Repository Date:2018-01-22 01/22/2018 Anita Palomares Primary Anita Palomares Reji [id number] Insurance:SUMMA CARE KeelerDOB: Community BR[place] MEDICAREPolicy [facility] [place] Repository 58059Rvk: (330) [id number] [phone] (HP) Date:2058-30-94WM [address] 84348GL: 01/22/2018 Secondary NOT GIVENUNK Reji Insurance:SELF PAY [facility] Number: Effective Repository Date:2018-01-22 01/22/2018 Anita Palomares Primary Anita Palomares Reji [id number] Insurance:SUMMA CARE KeelerDOB: Community BR[place] MEDICAREPolicy [facility]-05-[facility] [place] Repository 18176Sao: (330) [id number] [phone] (HP) Date:8636-64-19AG [address] 39349NO: 01/22/2018 Secondary NOT GIVENUNK Reji Insurance:SELF PAY [facility] Number: Effective Repository Date:2018-01-22 01/22/2018 Anita Palomares Primary Anita Palomares Reji [id number] Insurance:SUMMA CARE KeelerDOB: Community BR[place] MEDICAREPolicy [facility]-05-[facility] [place] Repository 63607Lrw: (330) [id number] [phone] (HP) Date:7766-45-12HS [address] [place], [place] [address]CS: 01/22/2018 Secondary NOT GIVENUNK Ferdinand Insurance:SELF PAY [facility] Number: Effective Repository Date:2018-01-22 01/21/2018 Anita Palomares Primary Anita Palomares Ferdinand [id number] Insurance:[employer] C[employer] KeelerDOB: Community [place] MEDICARE[place] [facility][birth year][facility] [place] Number: Repository [id number]: (330) [id number] [phone] (HP) Date:3600-78-72[address] [facility] [facility] [address]WK: 01/21/2018 Secondary NOT GIVENUNK Ferdinand Insurance:SELF PAY [facility] Number: Effective Repository Date:2018-01-21 01/20/2018 Anita Palomares Primary Anita Palomares Reji [id number] Insurance:[employer] C[employer] KeelerDOB: Community [employer] MEDICARE[place] [facility] [place] Number: Repository [id number]: (330) [id number] [phone] (HP) Date:6526-97-35VO [address] [facility] [address]XY: 01/20/2018 Secondary NOT GIVENUNK Ferdinand Insurance:SELF PAY [facility] Number: Effective Repository Date:2018-01-13 01/13/2018 Anita Palomares Primary Anita Palomares Ferdinand [id number] Insurance:[employer] CARE KeelerDOB: Community [employer] MEDICARE[place] [facility] [place] Number: Repository [id number]: (330 [id number] [phone] (HP) Date:0725-38-48WZ [address] [place] [address] 94404XH: 01/13/2018 Secondary NOT GIVENUNK Ferdinand Insurance:SELF PAY [facility] Number: Effective Repository Date:2018-01-06 01/06/2018 Anita Palomares Primary Anita Palomares Reji [id number] Insurance:[employer] CARE KeelerDOB: Community [employer] MEDICAREPolicy [address] Number: Repository [id number]: (330) [id number] [phone] (HP) Date:4748-49-69ZI [address] [facility] [place] [address]PA: 01/06/2018 Secondary NOT GIVENUNK Ferdinand Insurance:SELF PAY [facility] Number: Effective Repository Date:2017-12-30 12/31/2017 Anita K Primary Anita K Reji [id number] Insurance:[employer] CARE KeelerDOB: Community [employer] MEDICAREPolicy [id number] Number: Repository [id number]: (330) [id number] [phone] (HP) Date:4494-01-91DS [address] [place] [address] 16368FG: 12/31/2017 Secondary NOT GIVENUNK Reji Insurance:SELF PAY [facility] Number: Effective Repository Date:2017-12-31 12/30/2017 Anita K Primary Anita K Ferdinand [id number] Insurance:[employer] CARE KeelerDOB: Community [employer] MEDICARE[place] [facility][birth year][facility] [place] Number: Repository [address]Bzs: (330 [id number] [phone] (HP) Date:4808-84-95RR [address] [place] [address] 55075ED: 12/30/2017 Secondary NOT GIVENUNK Ferdinand Insurance:SELF PAY [facility] Number: Effective Repository Date:2017-12-13 12/29/2017 Anita K Primary Anita K Ferdinand [id number] Insurance:[employer] CARE KeelerDOB: Community [employer] MEDICAREPolicy [address] Number: Repository [id number]: (330 [id number] [phone] (HP) Date:1994-21-96UJ [address] [place] [address] 92260OW: 12/29/2017 Secondary NOT GIVENUNK Reji Insurance:SELF PAY [facility] Number: Effective Repository Date:2017-12-19 12/23/2017 Anita Palomares Primary Anita Palomares Ferdinand [id number] Insurance:[employer] CARE KeelerDOB: Community [employer] MEDICAREPolicy [facility][birth year][facility] [place] Number: Repository [id number]: (330 [id number] [phone] (HP) Date:8506-91-52OJ [address] [place] [address] 79170BC: 12/23/2017 Secondary NOT GIVENUNK Reji Insurance:SELF PAY [facility] Number: Effective Repository Date:2017-12-13 12/20/2017 Anita Palomares Primary Anita Palomares Reji [id number] Insurance:[employer] C[employer] KeelerDOB: Community [employer] MEDICAREPolicy 1946[facility][birth year][facility] [place] Number: Repository [id number]: (330) [id number] [phone] (HP) Date:6198-57-47RN [address] [place] [address] 70206NZ: 12/20/2017 Secondary NOT GIVENUNK Ferdinand Insurance:SELF PAY [facility] Number: Effective Repository Date:2017-12-02 12/17/2017 Anita Palomares Primary Anita Palomares Reji [id number] Insurance:[employer] C[employer] KeelerDOB: Community [employer] MEDIC[employer] [facility][birth year][facility] [place] Number: Repository [id number]: (330) [id number] [phone] (HP) Date:3676-31-30YB [address] [place] [address] 075[address]ND: 12/17/2017 Secondary NOT GIVENUNK Reji Insurance:SELF PA[facility] Number: Effective Repository Date:2017-11-17 12/14/2017 Anita Palomares Primary Anita Palomares Ferdinand [id number] Insurance:[employer] CARE KeelerDOB: Community [employer] MEDICAREPolicy [facility] [place] Number: Repository [id number]: (330 [id number] [phone] (HP) Date:0747-56-88TY [facility] [place] [address]CS: 12/14/2017 Secondary NOT GIVENUNK Ferdinand Insurance:SELF PAY [facility] Number: Effective Repository Date:2017-11-19 12/10/2017 Anita Palomares Primary Anita Jelani Reji [id number] Insurance:[employer] CARE KeelerDOB: Community [employer] MEDICAREPolicy [address] Number: Repository [id number]: (330 [id number] [phone] (HP) Date:5774-43-99YB [address] [facility] [address]OY: 12/10/2017 Secondary NOT GIVENUNK Reji Insurance:SELF PAY [facility] Number: Effective Repository Date:2017-12-02 12/02/2017 Anita Palomares Primary Anita Jelani Reji [id number] Insurance:[employer] KeelerDOB: Community [employer] MEDICAREPolicy [address] Number: Repository [id number]: (330 [id number] [phone] (HP) Date:2491-32-30GD [address] [facility] [address]UT: 12/02/2017 Secondary NOT GIVENUNK Ferdinand Insurance:SELF PAY [facility] Number: Effective Repository Date:2017-11-17 11/25/2017 Anita Palomares Primary Anita Jelani Reji [id number] Insurance:[employer] C[employer] KeelerDOB: Community [employer] [employer]AREPolicy [address] Number: Repository [id number]: (330 [id number] [phone] (HP) Date:0408-79-28GI [address] [facility] [address]EC: 11/25/2017 Secondary NOT GIVENUNK Reji Insurance:SELF PAY [facility] Number: Effective Repository Date:2017-11-24 11/24/2017 Anita Palomares Primary Anita K Reji [id number] Insurance:[employer] KeelerDOB: Community [employer] MEDICAREPolicy [address] Number: Repository [address]Cwj: (330) [id number] [phone] (HP) Date:7153-07-54[address] [place] [place], [place] [address]ZQ: 11/24/2017 Secondary NOT GIVENUNK Reji Insurance:SELF PAY [facility] Number: Effective Repository Date:2017-11-24 11/22/2017 Anita K Primary Anita K Reji [id number] Insurance:[employer] CARE KeelerDOB: Community [employer] MED[employer]AREPolicy [address] Number: Repository [id number]: (330) [id number] [phone] (HP) Date:0957-47-88VD [address] [place] [address] 70695WO: 11/22/2017 Secondary NOT GIVENUNK Ferdinand Insurance:SELF PAY [facility] Number: Effective Repository Date:2017-11-19 11/19/2017 Anita K Primary Anita K Ferdinand [id number] Insurance:[employer] CARE KeelerDOB: Community [employer] MEDICAREPolicy [facility] [place] Number: Repository [id number]: (330 [id number] [phone] (HP) Date:0038-93-53JV [address] [facility] [place] [address]SD: 11/19/2017 Secondary NOT GIVENUNK Ferdinand Insurance:SELF PAY [facility] Number: Effective Repository Date:2017-11-17 11/17/2017 Anita K Primary Anita K Ferdinand [id number] Insurance:[employer] CARE KeelerDOB: Community [employer] MEDICAREPolicy [address] Number: Repository 124[address]Vaa: (330) [id number] [phone] (HP) Date:7360-78-39IH [address] [place] [address] 79609LG: 11/17/2017 Secondary NOT GIVENUNK Reji Insurance:SELF PAY [facility] Number: Effective Repository Date:2017-11-17 11/16/2017 Anita Palomares Primary Anita Palomares Ferdinand [id number] Insurance:[employer] CARE KeelerDOB: Community BR[employer] MEDICAREPolicy [id number] Number: Repository [address]Gxe: 330 [id number] [phone] () Date:1295-33-35BV [address] [place] [address] 32219GR: 11/16/2017 Secondary NOT GIVENUNK Ferdinand Insurance:SELF PAY [facility] Number: Effective Repository Date:2017-10-19 11/05/2017 Anita Palomares Primary Anita Palomares Reji [id number] Insurance:[employer] C[employer] KeelerDOB: Community [employer] MEDICAREPolicy [address] Number: Repository [id number]: (330 [id number] [phone] () Date:5429-47-90UD [address] [place] [address] 38326HC: 11/05/2017 Secondary NOT GIVENUNK Reji Insurance:SELF PAY [facility] Number: Effective Repository Date:2017-11-05 11/03/2017 Anita Palomares Primary Anita Palomares Ferdinand [id number] Insurance:[employer]ARE KeelerDOB: Community [employer] MEDICAREPolicy [address] Number: Repository [address]Xhy: (330) [id number] [phone] () Date:6854-85-07AA [address] [place] [address] 11375HA: 11/03/2017 Secondary NOT GIVENUNK Reji Insurance:SELF PA[place] [facility] Number: Effective Repository Date:2017-11-02 11/02/2017 Anita Palomares Primary Anita Palomares Reji [id number] Insurance:[employer] CARE KeelerDOB: Community [employer] MEDICAREPolicy [address] Number: Repository [address]1193Bug: (330) [id number] [phone] (HP) Date:2185-75-63UZ [address] [place] [address] 593[address]YE: 11/02/2017 Secondary NOT GIVENUNK Reji Insurance[facility] Repository Date:2017-11-02 10/27/2017 Anita Palomares Primary Anita K Ferdinand [id number] Insurance:[employer] CARE KeelerDOB: Community BR[employer] MEDICAREPolicy [id number] Number: Repository 487[address]Fox: (330) [id number] [phone] (HP) Date:0919-36-41YN [address] [place] [address] 756[address]WA: 10/27/2017 Secondary NOT GIVENUNK Reji Insurance:SELF PAY [facility] Effective Repository Date:2017-10-25 10/22/2017 Anita Jelani Primary Anita K Ferdinand [id number] Insurance:[employer] CARE KeelerDOB: Community BR[employer] MEDICAREPolicy [id number] Number: Repository 18889Lhk: (330) [id number] [phone] (HP) Date:4304-60-92OQ [address] [place] [address] 46734QJ: 10/22/2017 Secondary NOT GIVENUNK Reji Insurance:SELF PAY [facility] Number: Effective Repository Date:2017-10-22 10/22/2017 Anita K Primary Anita K Ferdinand [id number] Insurance:[employer] CARE KeelerDOB: Community [employer] MEDICAREPolicy [id number] Number: Repository [address]110[address]Cwz: (330) [id number] [phone] (HP) Date:5270-78-12DX [address] [place] [address] 03725LF: 10/22/2017 Secondary NOT GIVENUNK Reji Insurance:SELF PAY [facility] Number: Effective Repository Date:2017-10-19 10/18/2017 Anita K Primary Anita K Ferdinand [id number] Insurance:[employer] CARE KeelerDOB: Community [employer] MED[employer] [facility] [place] Number: Repository 25[address]Ccq: (330) [id number] [phone] (HP) Date:2441-75-42KG [address] [place] [address] 13276TK: 10/18/2017 Secondary NOT GIVENUNK Reji Insurance:SELF PAY [facility] Number: Effective Repository Date:2017-09-19 10/16/2017 Anita K Primary Anita K Ferdinand [id number] Insurance:[employer] CARE KeelerDOB: Community [employer] MED[employer] [facility][birth year][facility] [place] Number: Repository 35[address]Jvx: (330 [id number] [phone] (HP) Date:9679-59-20SE [address] [place] [address] 03696XV: 10/16/2017 Secondary NOT GIVENUNK Ferdinand Insurance:SELF PAY [facility] Number: Effective Repository Date:2017-10-14 10/13/2017 Anita K Primary Anita K Reji [id number] Insurance:[employer] C[employer] KeelerDOB: Community [employer] MEDIC[employer]Policy [facility][birth year][facility] [place] Number[place] Repository [address]Fns: (330 [id number] [phone] (HP) Date:4109-89-85WN [address] [place] [address] 61333VP: 10/13/2017 Secondary NOT GIVENUNK Reji Insurance:SELF PAY [facility] Number: Effective Repository Date:2017-10-13 09/17/2017 Anita K Primary Anita K Ferdinand [id number] Insurance:[employer] CARE KeelerDOB: Community [employer] MED[employer] [facility][birth year][facility] [place] Number[place] Repository [id number]: (330 [id number] [phone] (HP) Date:4376-74-77VG [address] [place] [address] 42371EV: 09/17/2017 Secondary NOT GIVENUNK Reji Insurance:SELF PAY [facility] Number: Effective Repository Date:2017-08-19 08/29/2017 Anita Palomares Primary Anita Palomares Ferdinand [id number] Insurance:[employer] C[employer] KeelerDOB: Community [employer] MED[employer] [facility][birth year][facility] [place] Number[place] Repository [address]Wle: 330 [id number] [phone] (HP) Date:0244-53-23CU [address] [place] [address] 69948FK: 08/29/2017 Secondary NOT GIVENUNK Ferdinand Insurance:SELF PAY [facility] Number: Effective Repository Date:2017-08-19 08/17/2017 Anita Palomares Primary Anita Palomares Ferdinand [id number] Insurance:[employer] CARE KeelerDOB: Community [employer] MEDICAREPolicy [facility] [place] Number[place] Repository [address]Foc: 330 [id number] [phone] () Date:7872-59-52AN [address] [place] [address] 58287OA: 08/17/2017 Secondary NOT GIVENUNK Ferdinand Insurance:SELF PAY [facility] Number: Effective Repository Date:2017-07-27 08/02/2017 Anita Palomares Primary Anita Palomares Ferdinand [id number] Insurance:[employer] CARE KeelerDOB: Community [employer] MEDICAREPolicy [facility][birth year][facility] [place] Number[place] Repository [id number]: (330 [id number] [phone] () Date:0327-05-22WS [address] [place] [address] 07580NZ: 08/02/2017 Secondary NOT GIVENUNK Reji Insurance:SELF PAY [facility] Number: Effective Repository Date:2017-07-22 07/20/2017 Anita Palomares Primary Anita Palomares Reji [id number] Insurance:[employer] C[employer] KeelerDOB: Community [employer] MEDICARE[place] [facility][birth year][facility] [place] Number[place] Repository 198[address]Mpj: (330) [id number] [phone] () Date:8518-61-69UI [address] [place] [address] 31111FP: 07/20/2017 Secondary NOT GIVENUNK Ferdinand [facility]: Effective Repository Date:2017-07-20
== END ==
PROVIDERS: Family Provider Family Medicine; PCP Family Medicine; Referring Provider Internal Medicine Gastroenterology; Visit Provider Internal Medicine Gastroenterology
DX: K74.60 Unspecified cirrhosis of liver (principal); R18.8 Other ascites
CPT/HCPCS: 96365; 96366 ×2; 49083; P9047

== ENCOUNTER → 2018-07-14 09:57 | Outpatient (CLI) | payer MEDICARE, SELFPAY ==
[2018-05-19 11:29] VITALS: BMI 29.9
[2018-07-07 11:55] VITALS: BMI 28.5
--- NOTE | 2018-07-14 09:59 | US_ITS ---
PROCEDURE: Ultrasound guided paracentesis. DATE OF EXAMINATION: July 14, 2018.. INDICATION: Female, 72 years old. Ascites. PHYSICIAN: Rigo Britt M.D. TECHNIQUE: The risks, benefits, and alternatives to the procedure were explained to the patient. The specific risks of bleeding, infection, and damage to bowel were detailed and accepted. Witnessed informed consent was obtained. The abdomen was ultrasonographically surveyed. An appropriate pocket of fluid was identified at the left lower quadrant. The skin were cleaned and prepped in the usual sterile fashion. Using ultrasound guidance, the peritoneal cavity was accessed with a 5-Malagasy paracentesis needle/catheter system. The trocar was removed. A total of 5700 ml of harsh-colored fluid were removed from the peritoneal cavity. The catheter was removed and a sterile dressing was applied. The procedure was well tolerated. US/Paracentesis with US IMPRESSION: Ultrasound guided paracentesis. Electronically Signed: Rigo Britt MD at 13:04 EST , Service support ,
[2018-07-14 10:37] VITALS: BP 104/41; BP 105/54; BP 125/90; BP 95/53; PULSE 68; PULSE 70; PULSE 74; RESP 16; O2SAT 96; O2SAT 97
[2018-07-14 11:52] VITALS: BP 97/45; PULSE 64; RESP 18; TEMP 36.4; O2SAT 100; BMI 28.5
[2018-07-14] MEDS: Albumin Human 25% (100 mL) 25 GM/100 ML BAG IV (12:29)
== END ==
PROVIDERS: Family Provider Family Medicine; PCP Family Medicine; Referring Provider Internal Medicine Gastroenterology; Visit Provider Internal Medicine Gastroenterology
DX: K74.60 Unspecified cirrhosis of liver (principal); R18.8 Other ascites
CPT/HCPCS: 96365; 96366; 49083; P9047; A4216

== ENCOUNTER → 2018-07-21 10:15 | Outpatient (CLI) | payer MEDICARE, SELFPAY ==
[2018-05-19 11:29] VITALS: BMI 29.9
[2018-07-14 11:52] VITALS: BMI 28.5
--- NOTE | 2018-07-21 10:19 | US_ITS ---
PROCEDURE: Ultrasound guided paracentesis. DATE OF EXAMINATION: July 21, 2018. INDICATION: Female, 72 years old. Ascites. PHYSICIAN: Rigo Britt M.D. TECHNIQUE: The risks, benefits, and alternatives to the procedure were explained to the patient. The specific risks of bleeding, infection, and damage to bowel were detailed and accepted. Witnessed informed consent was obtained. The abdomen was ultrasonographically surveyed. An appropriate pocket of fluid was identified at the right lower quadrant. The skin were cleaned and prepped in the usual sterile fashion. Using ultrasound guidance, the peritoneal cavity was accessed with a 5-Palauan paracentesis needle/catheter system. The trocar was removed. A total of 5900 ml of harsh-colored fluid were removed from the peritoneal cavity. The catheter was removed and a sterile dressing was applied. The procedure was well tolerated. US/Paracentesis with US IMPRESSION: Ultrasound guided paracentesis. Electronically Signed: Rigo Britt MD at 13:45 EST , Service support ,
[2018-07-21 10:45] VITALS: BP 105/60; BP 113/56; PULSE 68; RESP 18; O2SAT 98; O2SAT 99
[2018-07-21 11:33] VITALS: BP 105/59; PULSE 69; RESP 16; TEMP 37.5; O2SAT 98; BMI 31.8
[2018-07-21] MEDS: Albumin Human 25% (100 mL) 25 GM/100 ML BAG IV (11:43)
== END ==
PROVIDERS: Family Provider Family Medicine; PCP Family Medicine; Referring Provider Internal Medicine Gastroenterology; Visit Provider Internal Medicine Gastroenterology
DX: K74.60 Unspecified cirrhosis of liver (principal); R18.8 Other ascites
CPT/HCPCS: 96365; 96366; 49083; P9047; A4216

== ENCOUNTER → 2018-07-28 10:09 | Outpatient (CLI) | payer MEDICARE, SELFPAY ==
[2018-05-19 11:29] VITALS: BMI 29.9
[2018-07-21 11:33] VITALS: BMI 31.8
--- NOTE | 2018-07-28 10:12 | US_ITS ---
PROCEDURE: Ultrasound guided paracentesis. DATE OF EXAMINATION: July 28, 2018. INDICATION: Female, 72 years old. Ascites. PHYSICIAN: Rigo Britt M.D. TECHNIQUE: The risks, benefits, and alternatives to the procedure were explained to the patient. The specific risks of bleeding, infection, and damage to bowel were detailed and accepted. Witnessed informed consent was obtained. The abdomen was ultrasonographically surveyed. An appropriate pocket of fluid was identified at the left lower quadrant. The skin were cleaned and prepped in the usual sterile fashion. Using ultrasound guidance, the peritoneal cavity was accessed with a 5-Syriac paracentesis needle/catheter system. The trocar was removed. A total of 7100 ml of harsh-colored fluid were removed from the peritoneal cavity. The catheter was removed and a sterile dressing was applied. The procedure was well tolerated. US/Paracentesis with US IMPRESSION: Ultrasound guided paracentesis. Electronically Signed: Rigo Britt MD at 11:29 EST , Service support ,
[2018-07-28 11:23] VITALS: BP 141/95; PULSE 89; RESP 16; TEMP 36.8; O2SAT 98; BMI 31.8
[2018-07-28] MEDS: Albumin Human 25% (100 mL) 25 GM/100 ML BAG IV (11:30)
[2018-07-28 11:31] VITALS: BP 123/63; BP 153/61; BP 164/83; PULSE 101; PULSE 89; PULSE 94; RESP 16; O2SAT 96; O2SAT 97; O2SAT 98
[2018-07-28] MEDS: Albumin Human 25% (50 mL) 12.5 GM/50 ML IV.SOLN IV (12:55)
== END ==
PROVIDERS: Family Provider Family Medicine; PCP Family Medicine; Referring Provider Internal Medicine Gastroenterology; Visit Provider Internal Medicine Gastroenterology
DX: K74.60 Unspecified cirrhosis of liver (principal); R18.8 Other ascites
CPT/HCPCS: 96365; 96366; 49083; P9047; A4216

== ENCOUNTER 2018-08-03 12:57 | Outpatient (RCR) | payer MEDICARE, SELFPAY ==
[2018-07-21 11:33] VITALS: BMI 31.8
[2018-07-28 11:23] VITALS: BMI 31.8
[2018-08-03 15:14] LABS: Hematocrit 28.9 % (37-47); Hemoglobin 9.3 g/dl (12.0-15.0); Mean Corp Hgb Conc 32.2 g/gl (32-36); Mean Corpuscular Hgb 30.1 pg (27.0-32.0); Mean Corpuscular Volume 93.5 fL (81-99); Mean Platelet Vol. 10.1 fl (6.2-12.0); Platelet Count 70 K/mm3 (150-450); RBC Distribution Width CV 15.2 % (11.6-14.6); RBC Distribution Width SD 52.3 fl (35.1-43.9); Red Blood Count 3.09 M/mm3 (4.2-5.4); Scan Indicated on CBC? Y/N NO; White Blood Count 2.4 K/mm3 (4.4-11.0)
[2018-08-03 15:23] LABS: Color, Urine Yellow (Yellow); Glucose, Dipstick 100 mg/dl (Normal); Ketone-Dipstick Negative (Negative); Leukocyte Esterase-Dipstick 500 /ul (Negative); Nitrite-Dipstick Negative (Negative); Occult Blood-Urine 10 /ul (Negative); Protein-Dipstick 15 mg/dl (Negative); Urine Bilirubin Dipstick Negative (Negative); Urine Clarity Sl. Cloudy (Clear); Urine Urobilinogen Normal (Normal)
[2018-08-03 15:32] LABS: Partial Thromboplast Time 28.6 Seconds (24.1-36.2); Prothrombin Time (Protime)PT. 13.5 SECONDS (11.7-14.9)
[2018-08-03 15:34] LABS: Microalbumin,Random Urine 28.2 mg/L (NO RANGE EST.); Microalbumin:Creatinine Ratio 22.7 mg/g CRE (<30 mg/g CRE); Protein, Urine (Random) 18.8 mg/dL (<11.9); Protein:Creat Ratio 152 mg/g CRE (0-200)
[2018-08-03 15:43] LABS: Vitamin D,25 Hydroxy 15.2 ng/mL (29.95-100.01)
[2018-08-03 15:47] LABS: Albumin, Serum 3.1 g/dL (3.2-5.0); BUN 76 mg/dL (7-18); BUN/Creat Ratio 37.8 RATIO (10-20); Calcium,Total 10.1 mg/dL (8.5-10.1); Chloride 110 mmol/L (98-107); Creatinine, Serum 2.01 mg/dL (0.55-1.02); EST Glomerular Filtration Rate 26 mL/min (>60); Est Glom Filt Rate - Afr Amer 31 mL/min (>60); Glucose 340 mg/dL (74-106); Phosphorus 3.4 mg/dL (2.5-4.9); Potassium 4.4 mmol/L (3.5-5.1); Sodium Level 138 mmol/L (136-145)
== END 2018-08-18 13:51 | disposition home or self-care (01) ==
LOC: LAB 12:57
PROVIDERS: Family Provider Family Medicine; PCP Family Medicine; Referring Provider Internal Medicine Gastroenterology; Visit Provider Internal Medicine Gastroenterology
DX: K74.60 Unspecified cirrhosis of liver (principal); R18.8 Other ascites; N18.4 Chronic kidney disease, stage 4 (severe); E83.52 Hypercalcemia; Z79.899 Other long term (current) drug therapy
CPT/HCPCS: 36415; 80069; 81002; 82043; 82306; 82570; 83970; 84156; 85027; 85610; 85730

== ENCOUNTER → 2018-08-04 10:20 | Outpatient (CLI) | payer MEDICARE, SELFPAY ==
[2018-05-19 11:29] VITALS: BMI 29.9
[2018-07-28 11:23] VITALS: BMI 31.8
--- NOTE | 2018-08-04 10:22 | US_ITS ---
PROCEDURE: Ultrasound guided paracentesis. DATE OF EXAMINATION: August 04, 2018. INDICATION: Female, 72 years old. Ascites. PHYSICIAN: Rigo Britt M.D. TECHNIQUE: The risks, benefits, and alternatives to the procedure were explained to the patient. The specific risks of bleeding, infection, and damage to bowel were detailed and accepted. Witnessed informed consent was obtained. The abdomen was ultrasonographically surveyed. An appropriate pocket of fluid was identified at the right lower quadrant. The skin were cleaned and prepped in the usual sterile fashion. Using ultrasound guidance, the peritoneal cavity was accessed with a 5-Guamanian paracentesis needle/catheter system. The trocar was removed. A total of 5000 ml of harsh-colored fluid were removed from the peritoneal cavity. The catheter was removed and a sterile dressing was applied. The procedure was well tolerated. US/Paracentesis with US IMPRESSION: Ultrasound guided paracentesis. Electronically Signed: Rigo Britt MD at 12:12 EST , Service support ,
--- NOTE | 2018-08-04 13:18 | NURSING ---
pt did not want albumin today, said the amount was only 4900 and she felt really good, infusion suite notified, pt alert and able to make own decisions, very knowledgable about her care and illness.
== END ==
PROVIDERS: Family Provider Family Medicine; PCP Family Medicine; Referring Provider Internal Medicine Gastroenterology; Visit Provider Internal Medicine Gastroenterology
DX: K74.60 Unspecified cirrhosis of liver (principal)
CPT/HCPCS: 49083

== ENCOUNTER → 2018-08-11 10:16 | Outpatient (CLI) | payer MEDICARE, SELFPAY ==
[2018-05-19 11:29] VITALS: BMI 29.9
[2018-07-28 11:23] VITALS: BMI 31.8
--- NOTE | 2018-08-11 10:18 | US_ITS ---
PROCEDURE: Ultrasound guided paracentesis. DATE OF EXAMINATION: August 11, 2018.. INDICATION: Female, 72 years old. Ascites. PHYSICIAN: Rigo Britt M.D. TECHNIQUE: The risks, benefits, and alternatives to the procedure were explained to the patient. The specific risks of bleeding, infection, and damage to bowel were detailed and accepted. Witnessed informed consent was obtained. The abdomen was ultrasonographically surveyed. An appropriate pocket of fluid was identified at the left lower quadrant. The skin were cleaned and prepped in the usual sterile fashion. Using ultrasound guidance, the peritoneal cavity was accessed with a 5-[place] Islander paracentesis needle/catheter system. The trocar was removed. A total of 6500 ml of harsh-colored fluid were removed from the peritoneal cavity. The catheter was removed and a sterile dressing was applied. The procedure was well tolerated. US/Paracentesis with US IMPRESSION: Ultrasound guided paracentesis. Electronically Signed: Rigo Britt MD at 12:26 EST , Service support ,
[2018-08-11 10:42] VITALS: BP 130/70; BP 141/61; BP 143/74; PULSE 103; PULSE 94; PULSE 97; RESP 16; O2SAT 100; O2SAT 98; O2SAT 99
[2018-08-11 11:31] VITALS: BP 127/60; PULSE 92; RESP 18; TEMP 37.1; O2SAT 100; BMI 30.9
[2018-08-11] MEDS: Albumin Human 25% (100 mL) 25 GM/100 ML BAG IV (11:45)
[2018-08-11] MEDS: Albumin Human 25% (50 mL) 12.5 GM/50 ML IV.SOLN IV (13:30)
== END ==
PROVIDERS: Family Provider Family Medicine; PCP Family Medicine; Referring Provider Internal Medicine Gastroenterology; Visit Provider Internal Medicine Gastroenterology
DX: K74.60 Unspecified cirrhosis of liver (principal); R18.8 Other ascites
CPT/HCPCS: 96365; 96366 ×2; 49083; P9047; A4216

== ENCOUNTER → 2018-08-18 10:18 | Outpatient (CLI) | payer MEDICARE, SELFPAY ==
[2018-05-19 11:29] VITALS: BMI 29.9
[2018-08-11 11:31] VITALS: BMI 30.9
--- NOTE | 2018-08-18 10:20 | US_ITS ---
PROCEDURE: Ultrasound guided paracentesis. DATE OF EXAMINATION: August 18, 2018. INDICATION: Female, 72 years old. Ascites. PHYSICIAN: Rigo Britt M.D. TECHNIQUE: The risks, benefits, and alternatives to the procedure were explained to the patient. The specific risks of bleeding, infection, and damage to bowel were detailed and accepted. Witnessed informed consent was obtained. The abdomen was ultrasonographically surveyed. An appropriate pocket of fluid was identified at the left lower quadrant. The skin were cleaned and prepped in the usual sterile fashion. Using ultrasound guidance, the peritoneal cavity was accessed with a 5-Venezuelan paracentesis needle/catheter system. The trocar was removed. A total of 5100 ml of harsh-colored fluid were removed from the peritoneal cavity. The catheter was removed and a sterile dressing was applied. The procedure was well tolerated. US/Paracentesis with US IMPRESSION: Ultrasound guided paracentesis. Electronically Signed: Rigo Britt, at 11:33 EST , Service support ,
[2018-08-18 10:45] VITALS: BP 117/64; BP 126/70; BP 152/72; PULSE 110; PULSE 93; PULSE 99; RESP 16; O2SAT 99
[2018-08-18 11:23] VITALS: BP 121/59; PULSE 96; RESP 16; TEMP 36.6; O2SAT 95
[2018-08-18 11:25] VITALS: BP 121/59; PULSE 96; RESP 16; TEMP 36.6; O2SAT 95; BMI 30.5
[2018-08-18] MEDS: Albumin Human 25% (100 mL) 25 GM/100 ML BAG IV (11:25)
== END ==
PROVIDERS: Family Provider Family Medicine; PCP Family Medicine; Referring Provider Internal Medicine Gastroenterology; Visit Provider Internal Medicine Gastroenterology
DX: K74.60 Unspecified cirrhosis of liver (principal); R18.8 Other ascites
CPT/HCPCS: 96365; 96366; 49083; P9047; A4216

== ENCOUNTER → 2018-08-25 10:16 | Outpatient (CLI) | payer MEDICARE, SELFPAY ==
[2018-07-28 11:23] VITALS: BMI 31.8
[2018-08-19 13:51] VITALS: BMI 31.8
--- NOTE | 2018-08-25 10:18 | US_ITS ---
PROCEDURE: Ultrasound guided paracentesis. DATE OF EXAMINATION: August 25, 2018.. INDICATION: Female, 72 years old. Ascites. PHYSICIAN: Rigo Britt M.D. TECHNIQUE: The risks, benefits, and alternatives to the procedure were explained to the patient. The specific risks of bleeding, infection, and damage to bowel were detailed and accepted. Witnessed informed consent was obtained. The abdomen was ultrasonographically surveyed. An appropriate pocket of fluid was identified at the right lower quadrant. The skin were cleaned and prepped in the usual sterile fashion. Using ultrasound guidance, the peritoneal cavity was accessed with a 5-Greek paracentesis needle/catheter system. The trocar was removed. A total of 2450 ml of harsh-colored fluid were removed from the peritoneal cavity. The catheter was removed and a sterile dressing was applied. The procedure was well tolerated. US/Paracentesis with US IMPRESSION: Ultrasound guided paracentesis. Electronically Signed: Rigo Britt, at 12:37 EST , Service support ,
[2018-08-25 11:07] VITALS: BP 118/53; BP 123/49; PULSE 72; PULSE 74; RESP 16; O2SAT 97
== END ==
PROVIDERS: Family Provider Family Medicine; PCP Family Medicine; Referring Provider Internal Medicine Gastroenterology; Visit Provider Internal Medicine Gastroenterology
DX: K74.60 Unspecified cirrhosis of liver (principal); R18.8 Other ascites
CPT/HCPCS: 49083

== ENCOUNTER 2018-08-31 12:07 | Outpatient (RCR) | payer MEDICARE, SELFPAY ==
[2018-08-26 15:03] VITALS: BMI 30.5
[2018-08-31 14:32] LABS: International Normalized Ratio 1.1; Prothrombin Time (Protime)PT. 14.1 SECONDS (11.7-14.9)
[2018-08-31 14:33] LABS: Partial Thromboplast Time 28.3 Seconds (24.1-36.2)
[2018-08-31 14:37] LABS: Absolute Lymphocyte Count 0.47 X10^3/ul (0.83-4.51); Absolute Neutrophil Count 1.6 X10^3/uL (2.0-7.7); Basophil# 0.02 X10^3/uL; Basophil% 0.8 % (0-1); Eosinophil# 0.18 X10^3/uL; Eosinophils% 7.5 % (0-5); Hematocrit 28.5 % (37-47); Hemoglobin 9.2 g/dl (12.0-15.0); Lymphocyte # 0.47 X10^3/ul (4.0); Lymphocyte % 19.6 % (19-41); Mean Corp Hgb Conc 32.3 g/gl (32-36); Mean Corpuscular Hgb 29.8 pg (27.0-32.0); Mean Corpuscular Volume 92.2 fL (81-99); Mean Platelet Vol. 10.2 fl (6.2-12.0); Monocyte# 0.11 X10^3/uL; Monocyte% 4.6 % (0-10); Neutrophil # 1.62 X10^3/uL (2.7-7.7); Neutrophil % 67.5 % (47-70); Platelet Count 72 K/mm3 (150-450); RBC Distribution Width CV 15.4 % (11.6-14.6); RBC Distribution Width SD 51.8 fl (35.1-43.9); Red Blood Count 3.09 M/mm3 (4.2-5.4); White Blood Count 2.4 K/mm3 (4.4-11.0)
[2018-08-31 14:39] LABS: Differential Indicated SCAN CRITERIA MET; POSITIVE COUNT NO; POSITIVE DIFFERENTIAL YES; POSITIVE MORPHOLOGY NO
[2018-08-31 14:58] LABS: Ferritin 223 ng/mL (8-252); Iron 86 ug/dL (50-170); Iron Binding Capacity,Total 238 ug/dL (250-450)
== END 2018-08-31 13:00 | disposition home or self-care (01) ==
LOC: LAB 12:07
PROVIDERS: Family Provider Family Medicine; PCP Family Medicine; Referring Provider Internal Medicine Gastroenterology; Visit Provider Internal Medicine Gastroenterology
DX: K74.60 Unspecified cirrhosis of liver (principal); R18.8 Other ascites; Z79.899 Other long term (current) drug therapy
CPT/HCPCS: 36415; 82728; 83540; 83550; 85025; 85610; 85730

== ENCOUNTER → 2018-09-01 10:19 | Outpatient (CLI) | payer MEDICARE, SELFPAY ==
[2018-07-28 11:23] VITALS: BMI 31.8
[2018-08-26 15:03] VITALS: BMI 30.5
--- NOTE | 2018-09-01 10:24 | US_ITS ---
PROCEDURE: Ultrasound guided paracentesis. DATE OF EXAMINATION: September 01, 2018. INDICATION: Female, 72 years old. Ascites. PHYSICIAN: Rigo Britt M.D. TECHNIQUE: The risks, benefits, and alternatives to the procedure were explained to the patient. The specific risks of bleeding, infection, and damage to bowel were detailed and accepted. Witnessed informed consent was obtained. The abdomen was ultrasonographically surveyed. An appropriate pocket of fluid was identified at the left lower quadrant. The skin were cleaned and prepped in the usual sterile fashion. Using ultrasound guidance, the peritoneal cavity was accessed with a 5-Bengali paracentesis needle/catheter system. The trocar was removed. A total of 6450 ml of harsh-colored fluid were removed from the peritoneal cavity. The catheter was removed and a sterile dressing was applied. The procedure was well tolerated. US/Paracentesis with US IMPRESSION: Ultrasound guided paracentesis. Electronically Signed: Rigo Britt, at 12:45 EDT , Service support ,
[2018-09-01 10:50] VITALS: BP 116/55; BP 126/69; BP 135/66; PULSE 83; PULSE 88; PULSE 93; RESP 16; RESP 18; O2SAT 96; O2SAT 97; O2SAT 99
[2018-09-01 11:33] VITALS: BP 122/50; PULSE 86; RESP 20; TEMP 36.8; O2SAT 100
[2018-09-01] MEDS: Albumin Human 25% (100 mL) 25 GM/100 ML BAG IV (11:40)
[2018-09-01] MEDS: Albumin Human 25% (50 mL) 12.5 GM/50 ML IV.SOLN IV (13:17)
== END ==
PROVIDERS: Family Provider Family Medicine; PCP Family Medicine; Referring Provider Internal Medicine Gastroenterology; Visit Provider Internal Medicine Gastroenterology
DX: K74.60 Unspecified cirrhosis of liver (principal); R18.8 Other ascites
CPT/HCPCS: 96365; 96366; 49083; P9047; A4216

== ENCOUNTER → 2018-09-08 10:15 | Outpatient (CLI) | payer MEDICARE, SELFPAY ==
[2018-07-28 11:23] VITALS: BMI 31.8
[2018-08-26 15:03] VITALS: BMI 30.5
--- NOTE | 2018-09-08 10:18 | US_ITS ---
PROCEDURE: ULTRASOUND GUIDED PARACENTESIS CLINICAL HISTORY: Female, 72 years old. ASCITES CONSENT: The risks, benefits and alternatives to the procedure were explained to the patient, and the patient agreed to the procedure and signed the consent. 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 PROCEDURE/TECHNIQUE: The risks, benefits, and alternatives to the procedure were explained to patient, and the patient agreed to the procedure and signed a consent form for the procedure. TECHNIQUE: Under the ultrasound guidance using sterile technique and after infiltration of the skin and subcutaneous soft tissues with 10 mL of lidocaine 1% a 5 Bulgarian drainage catheter is introduced in the lower part of the abdomen. 5550 mL of fluid were removed sample sent to lab for evaluation. The patient tolerated the procedure there was no immediate complication. FINDINGS: FLUID PRE-PROCEDURE There is posterior enhancement. The findings appear anechoic. There is no loculation. FLUID POST-PROCEDURE Amount of fluid drained: 5550 ml. US/Paracentesis with US IMPRESSION: Successful ultrasound-guided paracentesis. Electronically Signed: Samra Martinez, at 12:22 EDT Tel , Service support ,
[2018-09-08 11:23] VITALS: BP 112/59; PULSE 68; RESP 16; TEMP 36.4; O2SAT 94; BMI 31.4
[2018-09-08] MEDS: Albumin Human 25% (100 mL) 25 GM/100 ML BAG IV (12:33)
== END ==
PROVIDERS: Family Provider Family Medicine; PCP Family Medicine; Referring Provider Internal Medicine Gastroenterology; Visit Provider Internal Medicine Gastroenterology
DX: K74.60 Unspecified cirrhosis of liver (principal); R18.8 Other ascites
CPT/HCPCS: 96365; 96366; 49083; P9047; A4216

== ENCOUNTER → 2018-09-15 10:17 | Outpatient (CLI) | payer MEDICARE, SELFPAY ==
[2018-07-28 11:23] VITALS: BMI 31.8
[2018-09-08 11:23] VITALS: BMI 31.4
--- NOTE | 2018-09-15 10:19 | US_ITS ---
PROCEDURE: Ultrasound guided paracentesis. DATE OF EXAMINATION: September 15, 2018. INDICATION: Female, 72 years old. Ascites. PHYSICIAN: Rigo Britt M.D. TECHNIQUE: The risks, benefits, and alternatives to the procedure were explained to the patient. The specific risks of bleeding, infection, and damage to bowel were detailed and accepted. Witnessed informed consent was obtained. The abdomen was ultrasonographically surveyed. An appropriate pocket of fluid was identified at the left lower quadrant. The skin were cleaned and prepped in the usual sterile fashion. Using ultrasound guidance, the peritoneal cavity was accessed with a 5-Kazakh paracentesis needle/catheter system. The trocar was removed. A total of 5400 ml of harsh-colored fluid were removed from the peritoneal cavity. The catheter was removed and a sterile dressing was applied. The procedure was well tolerated. US/Paracentesis with US IMPRESSION: Ultrasound guided paracentesis. Electronically Signed: Rigo Britt, at 11:29 EDT , Service support ,
[2018-09-15 11:15] VITALS: BP 109/64; BP 127/63; PULSE 74; PULSE 84; RESP 16; O2SAT 98; O2SAT 99
[2018-09-15 11:35] VITALS: BP 103/50; PULSE 73; RESP 16; TEMP 36.5; O2SAT 100; BMI 30.9
[2018-09-15] MEDS: Albumin Human 25% (100 mL) 25 GM/100 ML BAG IV (12:26)
== END ==
PROVIDERS: Family Provider Family Medicine; PCP Family Medicine; Referring Provider Internal Medicine Gastroenterology; Visit Provider Internal Medicine Gastroenterology
DX: K74.60 Unspecified cirrhosis of liver (principal)
CPT/HCPCS: 96365; 96366; 49083; P9047

== ENCOUNTER → 2018-09-22 10:19 | Outpatient (CLI) | payer MEDICARE, SELFPAY ==
[2018-09-16 09:34] VITALS: BMI 30.5
--- NOTE | 2018-09-22 10:21 | US_ITS ---
PROCEDURE: Ultrasound guided paracentesis. DATE OF EXAMINATION: September 22, 2018. INDICATION: Female, 72 years old. Ascites. PHYSICIAN: Rigo Britt M.D. TECHNIQUE: The risks, benefits, and alternatives to the procedure were explained to the patient. The specific risks of bleeding, infection, and damage to bowel were detailed and accepted. Witnessed informed consent was obtained. The abdomen was ultrasonographically surveyed. An appropriate pocket of fluid was identified at the left lower quadrant. The skin were cleaned and prepped in the usual sterile fashion. Using ultrasound guidance, the peritoneal cavity was accessed with a 5-Anguillan paracentesis needle/catheter system. The trocar was removed. A total of 5950 ml of harsh-colored fluid were removed from the peritoneal cavity. The catheter was removed and a sterile dressing was applied. The procedure was well tolerated. US/Paracentesis with US IMPRESSION: Ultrasound guided paracentesis. Electronically Signed: Rigo Britt, at 12:55 EDT , Service support ,
[2018-09-22 10:45] VITALS: BP 121/65; BP 135/69; BP 143/68; PULSE 90; PULSE 95; RESP 18; O2SAT 100; O2SAT 99
[2018-09-22 11:27] VITALS: BP 129/57; PULSE 89; TEMP 36.6; O2SAT 100; BMI 31.4
[2018-09-22] MEDS: Albumin Human 25% (100 mL) 25 GM/100 ML BAG IV (11:27)
== END ==
PROVIDERS: Family Provider Family Medicine; PCP Family Medicine; Referring Provider Internal Medicine Gastroenterology; Visit Provider Internal Medicine Gastroenterology
DX: K74.60 Unspecified cirrhosis of liver (principal); R18.8 Other ascites
CPT/HCPCS: 96365; 96366; 49083; P9047; A4216

== ENCOUNTER → 2018-09-29 10:17 | Outpatient (CLI) | payer MEDICARE, SELFPAY ==
[2018-08-26 15:03] VITALS: BMI 30.5
[2018-09-22 11:27] VITALS: BMI 31.4
--- NOTE | 2018-09-29 10:18 | US_ITS ---
PROCEDURE: Ultrasound guided paracentesis. DATE OF EXAMINATION: September 29, 2018. INDICATION: Female, 72 years old. Ascites. PHYSICIAN: Rigo Britt M.D. TECHNIQUE: The risks, benefits, and alternatives to the procedure were explained to the patient. The specific risks of bleeding, infection, and damage to bowel were detailed and accepted. Witnessed informed consent was obtained. The abdomen was ultrasonographically surveyed. An appropriate pocket of fluid was identified at the right lower quadrant. The skin were cleaned and prepped in the usual sterile fashion. Using ultrasound guidance, the peritoneal cavity was accessed with a 5-Pashto paracentesis needle/catheter system. The trocar was removed. A total of 5250 ml of harsh-colored fluid were removed from the peritoneal cavity. The catheter was removed and a sterile dressing was applied. The procedure was well tolerated. US/Paracentesis with US IMPRESSION: Ultrasound guided paracentesis. Electronically Signed: Rigo Britt, at 11:18 EDT , Service support ,
[2018-09-29 11:23] VITALS: BP 117/53; PULSE 84; RESP 16; TEMP 36.5; O2SAT 100; BMI 31.1
[2018-09-29 11:24] VITALS: BP 114/66; BP 118/56; BP 130/51; PULSE 86; PULSE 87; PULSE 92; RESP 16; O2SAT 100; O2SAT 99
[2018-09-29] MEDS: Albumin Human 25% (100 mL) 25 GM/100 ML BAG IV (11:51)
== END ==
PROVIDERS: Family Provider Family Medicine; PCP Family Medicine; Referring Provider Internal Medicine Gastroenterology; Visit Provider Internal Medicine Gastroenterology
DX: K74.60 Unspecified cirrhosis of liver (principal)
CPT/HCPCS: 96365; 96366; 49083; P9047

== ENCOUNTER 2018-10-05 11:43 | Outpatient (RCR) | payer MEDICARE, SELFPAY ==
[2018-09-16 09:34] VITALS: BMI 30.5
[2018-09-29 11:23] VITALS: BMI 31.1
[2018-10-05 12:54] LABS: International Normalized Ratio 1.1
[2018-10-05 12:55] LABS: Partial Thromboplast Time 27.8 Seconds (24.1-36.2)
[2018-10-05 13:12] LABS: Ferritin 183 ng/mL (8-252)
== END 2018-10-18 16:00 | disposition home or self-care (01) ==
LOC: LAB 11:43
PROVIDERS: Family Provider Family Medicine; PCP Family Medicine; Referring Provider Internal Medicine Gastroenterology; Visit Provider Internal Medicine Gastroenterology
DX: K74.60 Unspecified cirrhosis of liver (principal); R18.8 Other ascites; Z79.899 Other long term (current) drug therapy
CPT/HCPCS: 36415; 82728; 85610; 85730

== ENCOUNTER → 2018-10-06 10:15 | Outpatient (CLI) | payer MEDICARE, SELFPAY ==
[2018-08-26 15:03] VITALS: BMI 30.5
[2018-09-29 11:23] VITALS: BMI 31.1
--- NOTE | 2018-10-06 10:17 | US_ITS ---
PROCEDURE: Ultrasound guided paracentesis. DATE OF EXAMINATION: October 06, 2018. INDICATION: Female, 72 years old. Ascites. PHYSICIAN: Rigo Britt M.D. TECHNIQUE: The risks, benefits, and alternatives to the procedure were explained to the patient. The specific risks of bleeding, infection, and damage to bowel were detailed and accepted. Witnessed informed consent was obtained. The abdomen was ultrasonographically surveyed. An appropriate pocket of fluid was identified at the right lower quadrant. The skin were cleaned and prepped in the usual sterile fashion. Using ultrasound guidance, the peritoneal cavity was accessed with a 5-Faroese paracentesis needle/catheter system. The trocar was removed. A total of 5100 ml of harsh-colored fluid were removed from the peritoneal cavity. The catheter was removed and a sterile dressing was applied. The procedure was well tolerated. US/Paracentesis with US IMPRESSION: Ultrasound guided paracentesis. Electronically Signed: Rigo Britt, at 13:42 EDT , Service support ,
[2018-10-06 10:35] VITALS: BP 104/55; BP 105/45; BP 108/48; BP 113/60; BP 117/46; BP 99/46; PULSE 58; PULSE 59; PULSE 61; PULSE 62; PULSE 63; PULSE 66; RESP 16; RESP 18; O2SAT 100; O2SAT 97; O2SAT 99
[2018-10-06] MEDS: Albumin Human 25% (100 mL) 25 GM/100 ML BAG IV (11:42)
[2018-10-06 11:47] VITALS: BP 98/44; PULSE 56; RESP 16; TEMP 36.6; O2SAT 100; BMI 31.4
== END ==
PROVIDERS: Family Provider Family Medicine; PCP Family Medicine; Referring Provider Internal Medicine Gastroenterology; Visit Provider Internal Medicine Gastroenterology
DX: K74.60 Unspecified cirrhosis of liver (principal)
CPT/HCPCS: 96365; 96366; 49083; P9047

== ENCOUNTER → 2018-10-13 10:17 | Outpatient (CLI) | payer MEDICARE, SELFPAY ==
[2018-08-26 15:03] VITALS: BMI 30.5
[2018-10-06 11:47] VITALS: BMI 31.4
--- NOTE | 2018-10-13 10:19 | US_ITS ---
PROCEDURE: ULTRASOUND GUIDED PARACENTESIS CLINICAL HISTORY: Female, 72 years old. Ascites CONSENT: Informed consent obtained Time-Out Called: Yes. Consent form signed: Yes. PT-PTT Levels Checked: Yes. SEDATION: Local with 2% Xylocaine TECHNIQUE: Ultrasound guided FINDINGS: FLUID PRE-PROCEDURE There is posterior enhancement. The findings appear anechoic. There is no loculation. After informed consent was obtained, the appropriate site for paracentesis was marked by ultrasound, and the area was prepped and draped in a sterile manner. Local anesthetic was given and a 14 German drainage catheter was advanced into the peritoneal cavity without difficulty. Approximately 5450 mL of straw-colored serous fluid was obtained from the peritoneal cavity. Patient tolerated the procedure well with no immediate complications. FLUID POST-PROCEDURE Amount of fluid drained: 5450 ml. Residual image volume: Persistent anechoic ascites noted in the abdomen though there is a significant decrease in the amount of fluid after paracentesis US/Paracentesis with US IMPRESSION: Successful ultrasound-guided paracentesis Electronically Signed: Ish Alcocer MD at 14:09 EDT , Service support ,
[2018-10-13 10:30] VITALS: BP 110/59; BP 121/49; BP 132/69; BP 141/50; PULSE 77; PULSE 82; PULSE 88; PULSE 89; RESP 16; O2SAT 100; O2SAT 92; O2SAT 96; O2SAT 99
[2018-10-13 11:44] VITALS: BP 133/62; PULSE 82; RESP 16; TEMP 36.6; BMI 31.4
[2018-10-13] MEDS: Albumin Human 25% (100 mL) 25 GM/100 ML BAG IV (12:29)
== END ==
PROVIDERS: Family Provider Family Medicine; PCP Family Medicine; Referring Provider Internal Medicine Gastroenterology; Visit Provider Internal Medicine Gastroenterology
DX: K74.60 Unspecified cirrhosis of liver (principal); R18.8 Other ascites
CPT/HCPCS: 96365; 96366; 49083; P9047; A4216

== ENCOUNTER → 2018-10-20 10:25 | Outpatient (CLI) | payer MEDICARE, SELFPAY ==
[2018-10-19 12:14] VITALS: BMI 31.1
--- NOTE | 2018-10-20 10:28 | US_ITS ---
PROCEDURE: Ultrasound guided paracentesis. DATE OF EXAMINATION: October 20, 2018. INDICATION: Female, 72 years old. Ascites. PHYSICIAN: Rigo Britt M.D. TECHNIQUE: The risks, benefits, and alternatives to the procedure were explained to the patient. The specific risks of bleeding, infection, and damage to bowel were detailed and accepted. Witnessed informed consent was obtained. The abdomen was ultrasonographically surveyed. An appropriate pocket of fluid was identified at the right lower quadrant. The skin were cleaned and prepped in the usual sterile fashion. Using ultrasound guidance, the peritoneal cavity was accessed with a 5-Uzbek paracentesis needle/catheter system. The trocar was removed. A total of 5850 ml of harsh-colored fluid were removed from the peritoneal cavity. The catheter was removed and a sterile dressing was applied. The procedure was well tolerated. US/Paracentesis with US IMPRESSION: Ultrasound guided paracentesis. Electronically Signed: Rigo Britt, at 11:42 EDT , Service support ,
[2018-10-20 10:35] VITALS: BP 113/56; BP 116/56; BP 117/48; BP 117/63; BP 124/55; BP 157/64; BP 158/66; BP 99/60; PULSE 82; PULSE 84; PULSE 86; PULSE 87; PULSE 89; PULSE 95; RESP 16; RESP 18; RESP 20; O2SAT 100
[2018-10-20 11:36] VITALS: BP 126/55; PULSE 85; RESP 16; TEMP 36.4; O2SAT 100; BMI 29.6
[2018-10-20] MEDS: Albumin Human 25% (100 mL) 25 GM/100 ML BAG IV (11:44)
== END ==
PROVIDERS: Family Provider Family Medicine; PCP Family Medicine; Referring Provider Internal Medicine Gastroenterology; Visit Provider Internal Medicine Gastroenterology
DX: K74.60 Unspecified cirrhosis of liver (principal)
CPT/HCPCS: 96365; 96366; 49083; P9047; A4216

== ENCOUNTER → 2018-10-27 10:18 | Outpatient (CLI) | payer MEDICARE, SELFPAY ==
[2018-08-26 15:03] VITALS: BMI 30.5
[2018-10-20 11:36] VITALS: BMI 29.6
--- NOTE | 2018-10-27 10:19 | US_ITS ---
PROCEDURE: Ultrasound guided paracentesis. DATE OF EXAMINATION: October 27, 2018. INDICATION: Female, 72 years old. Ascites. PHYSICIAN: Rigo Britt M.D. TECHNIQUE: The risks, benefits, and alternatives to the procedure were explained to the patient. The specific risks of bleeding, infection, and damage to bowel were detailed and accepted. Witnessed informed consent was obtained. The abdomen was ultrasonographically surveyed. An appropriate pocket of fluid was identified at the right lower quadrant. The skin were cleaned and prepped in the usual sterile fashion. Using ultrasound guidance, the peritoneal cavity was accessed with a 5-Persian paracentesis needle/catheter system. The trocar was removed. A total of 4500 ml of harsh-colored fluid were removed from the peritoneal cavity. The catheter was removed and a sterile dressing was applied. The procedure was well tolerated. US/Paracentesis with US IMPRESSION: Ultrasound guided paracentesis. Electronically Signed: Rigo Britt, at 12:56 EDT , Service support ,
[2018-10-27 10:35] VITALS: BP 113/63; BP 116/49; BP 118/76; BP 119/60; BP 125/58; BP 132/61; BP 143/65; PULSE 66; PULSE 67; PULSE 71; PULSE 74; PULSE 75; RESP 16; RESP 18; O2SAT 100; O2SAT 98; O2SAT 99
== END ==
PROVIDERS: Family Provider Family Medicine; PCP Family Medicine; Referring Provider Internal Medicine Gastroenterology; Visit Provider Internal Medicine Gastroenterology
DX: K74.60 Unspecified cirrhosis of liver (principal)
CPT/HCPCS: 49083; A4216

== ENCOUNTER 2018-11-02 12:23 | Outpatient (RCR) | payer MEDICARE, SELFPAY ==
[2018-10-19 12:14] VITALS: BMI 31.1
[2018-10-20 11:36] VITALS: BMI 29.6
[2018-11-02 13:15] LABS: Ferritin 125 ng/mL (8-252)
[2018-11-02 13:17] LABS: International Normalized Ratio 1.1; Prothrombin Time (Protime)PT. 13.5 SECONDS (11.7-14.9)
[2018-11-02 13:18] LABS: Partial Thromboplast Time 28.5 Seconds (24.1-36.2)
== END 2018-11-02 14:00 | disposition home or self-care (01) ==
LOC: LAB 12:23
PROVIDERS: Family Provider Family Medicine; PCP Family Medicine; Referring Provider Internal Medicine Gastroenterology; Visit Provider Internal Medicine Gastroenterology
DX: K74.60 Unspecified cirrhosis of liver (principal); D63.1 Anemia in chronic kidney disease; N18.4 Chronic kidney disease, stage 4 (severe)
CPT/HCPCS: 36415; 82728; 85610; 85730

== ENCOUNTER → 2018-11-03 10:19 | Outpatient (CLI) | payer MEDICARE, SELFPAY ==
[2018-08-26 15:03] VITALS: BMI 30.5
[2018-10-20 11:36] VITALS: BMI 29.6
--- NOTE | 2018-11-03 10:21 | US_ITS ---
PROCEDURE: Ultrasound guided paracentesis. DATE OF EXAMINATION: November 03, 2018. INDICATION: Female, 73 years old. Ascites. PHYSICIAN: Rigo Britt M.D. TECHNIQUE: The risks, benefits, and alternatives to the procedure were explained to the patient. The specific risks of bleeding, infection, and damage to bowel were detailed and accepted. Witnessed informed consent was obtained. The abdomen was ultrasonographically surveyed. An appropriate pocket of fluid was identified at the left lower quadrant. The skin were cleaned and prepped in the usual sterile fashion. Using ultrasound guidance, the peritoneal cavity was accessed with a 5-Spanish paracentesis needle/catheter system. The trocar was removed. A total of 6050 ml of harsh color fluid were removed from the peritoneal cavity. The catheter was removed and a sterile dressing was applied. The procedure was well tolerated. US/Paracentesis with US IMPRESSION: Ultrasound guided paracentesis. Electronically Signed: Rigo Britt, at 12:21 EDT , Service support ,
[2018-11-03 11:26] VITALS: BP 114/50; BP 129/61; BP 134/52; BP 144/72; PULSE 82; PULSE 91; RESP 16; RESP 18; O2SAT 100; O2SAT 99
[2018-11-03] MEDS: Albumin Human 25% (100 mL) 25 GM/100 ML BAG IV (11:33)
[2018-11-03 11:43] VITALS: BP 124/68; PULSE 87; RESP 16; TEMP 37.1; O2SAT 98; BMI 30.3
== END ==
PROVIDERS: Family Provider Family Medicine; PCP Family Medicine; Referring Provider Internal Medicine Gastroenterology; Visit Provider Internal Medicine Gastroenterology
DX: K74.60 Unspecified cirrhosis of liver (principal); R18.8 Other ascites
CPT/HCPCS: 96365; 96366; 49083; P9047; A4216

== ENCOUNTER → 2018-11-10 10:15 | Outpatient (CLI) | payer MEDICARE, SELFPAY ==
[2018-08-26 15:03] VITALS: BMI 30.5
[2018-11-03 11:43] VITALS: BMI 30.3
--- NOTE | 2018-11-10 10:17 | US_ITS ---
PROCEDURE: Ultrasound guided paracentesis. DATE OF EXAMINATION: November 10, 2018. INDICATION: Female, 73 years old. Ascites. PHYSICIAN: Rigo Britt M.D. TECHNIQUE: The risks, benefits, and alternatives to the procedure were explained to the patient. The specific risks of bleeding, infection, and damage to bowel were detailed and accepted. Witnessed informed consent was obtained. The abdomen was ultrasonographically surveyed. An appropriate pocket of fluid was identified at the right lower quadrant. The skin were cleaned and prepped in the usual sterile fashion. Using ultrasound guidance, the peritoneal cavity was accessed with a 5-Guamanian paracentesis needle/catheter system. The trocar was removed. A total of 4350 ml of harsh-colored fluid were removed from the peritoneal cavity. The catheter was removed and a sterile dressing was applied. The procedure was well tolerated. US/Paracentesis with US IMPRESSION: Ultrasound guided paracentesis. Electronically Signed: Rigo Britt, at 12:13 EDT , Service support ,
[2018-11-10 10:40] VITALS: BP 116/52; BP 124/49; BP 126/48; PULSE 69; PULSE 76; PULSE 83; RESP 18; O2SAT 97; O2SAT 99
== END ==
LOC: MEDOUTP 10:57 → US 12:19
PROVIDERS: Family Provider Family Medicine; PCP Family Medicine; Referring Provider Internal Medicine Gastroenterology; Visit Provider Internal Medicine Gastroenterology
DX: K74.60 Unspecified cirrhosis of liver (principal)
CPT/HCPCS: 49083; A4216

== ENCOUNTER → 2018-11-17 10:15 | Outpatient (CLI) | payer MEDICARE, SELFPAY ==
[2018-08-26 15:03] VITALS: BMI 30.5
[2018-11-03 11:43] VITALS: BMI 30.3
--- NOTE | 2018-11-17 10:17 | US_ITS ---
PROCEDURE: Ultrasound guided paracentesis. DATE OF EXAMINATION: November 17, 2018. INDICATION: Female, 73 years old. Ascites. PHYSICIAN: Rigo Britt M.D. TECHNIQUE: The risks, benefits, and alternatives to the procedure were explained to the patient. The specific risks of bleeding, infection, and damage to bowel were detailed and accepted. Witnessed informed consent was obtained. The abdomen was ultrasonographically surveyed. An appropriate pocket of fluid was identified at the right lower quadrant. The skin were cleaned and prepped in the usual sterile fashion. Using ultrasound guidance, the peritoneal cavity was accessed with a 5-Slovenian paracentesis needle/catheter system. The trocar was removed. A total of 5800 ml of harsh-colored fluid were removed from the peritoneal cavity. The catheter was removed and a sterile dressing was applied. The procedure was well tolerated. US/Paracentesis with US IMPRESSION: Ultrasound guided paracentesis. Electronically Signed: Rigo Britt, at 11:39 EDT , Service support ,
[2018-11-17 11:22] VITALS: BP 110/75; PULSE 67; RESP 16; TEMP 36.5; O2SAT 99; BMI 32.3
[2018-11-17 11:23] VITALS: BP 117/59; BP 123/40; BP 142/47; PULSE 64; PULSE 68; PULSE 69; RESP 18; O2SAT 100; O2SAT 97
[2018-11-17] MEDS: Albumin Human 25% (100 mL) 25 GM/100 ML BAG IV (11:44)
== END ==
LOC: US 10:15 → ONC 11:27 → MEDOUTP 11:42
PROVIDERS: Family Provider Family Medicine; PCP Family Medicine; Referring Provider Internal Medicine Gastroenterology; Visit Provider Internal Medicine Gastroenterology
DX: K74.60 Unspecified cirrhosis of liver (principal); R18.8 Other ascites
CPT/HCPCS: 96365; 96366; 49083; P9047; A4216

== ENCOUNTER → 2018-11-24 10:04 | Outpatient (CLI) | payer MEDICARE, SELFPAY ==
[2018-10-06 11:47] VITALS: BMI 31.4
[2018-11-19 08:40] VITALS: BMI 29.6
--- NOTE | 2018-11-24 10:06 | US_ITS ---
PROCEDURE: Ultrasound guided paracentesis. DATE OF EXAMINATION: November 24, 2018.. INDICATION: Female, 73 years old. Ascites. PHYSICIAN: Rigo Britt M.D. TECHNIQUE: The risks, benefits, and alternatives to the procedure were explained to the patient. The specific risks of bleeding, infection, and damage to bowel were detailed and accepted. Witnessed informed consent was obtained. The abdomen was ultrasonographically surveyed. An appropriate pocket of fluid was identified at the right lower quadrant. The skin were cleaned and prepped in the usual sterile fashion. Using ultrasound guidance, the peritoneal cavity was accessed with a 5-Stateless paracentesis needle/catheter system. The trocar was removed. A total of 6200 ml of harsh-colored fluid were removed from the peritoneal cavity. The catheter was removed and a sterile dressing was applied. The procedure was well tolerated. US/Paracentesis with US IMPRESSION: Ultrasound guided paracentesis. Electronically Signed: Rigo Britt, at 13:01 EDT , Service support ,
[2018-11-24 10:35] VITALS: BP 116/62; BP 119/67; BP 123/49; BP 129/69; BP 131/65; BP 139/63; BP 154/95; BP 156/64; PULSE 86; PULSE 87; PULSE 88; PULSE 89; PULSE 91; PULSE 95; RESP 16; O2SAT 100; O2SAT 98; O2SAT 99
[2018-11-24] MEDS: Albumin Human 25% (100 mL) 25 GM/100 ML BAG IV (12:29)
[2018-11-24 12:30] VITALS: BP 106/58; PULSE 83; RESP 16; TEMP 36.6; O2SAT 100; BMI 32.5
== END ==
LOC: US 10:04 → MEDOUTP 11:28
PROVIDERS: Family Provider Family Medicine; PCP Family Medicine; Referring Provider Internal Medicine Gastroenterology; Visit Provider Internal Medicine Gastroenterology
DX: K74.60 Unspecified cirrhosis of liver (principal)
CPT/HCPCS: 96365; 96366; 49083; P9047; A4216

== ENCOUNTER → 2018-12-01 09:10 | Outpatient (CLI) | payer MEDICARE, SELFPAY ==
[2018-10-06 11:47] VITALS: BMI 31.4
[2018-11-30 12:36] VITALS: BMI 30.4
--- NOTE | 2018-12-01 09:11 | US_ITS ---
PROCEDURE: Ultrasound guided paracentesis. DATE OF EXAMINATION: December 01, 2018.. INDICATION: Female, 73 years old. Ascites. PHYSICIAN: Rigo Britt M.D. TECHNIQUE: The risks, benefits, and alternatives to the procedure were explained to the patient. The specific risks of bleeding, infection, and damage to bowel were detailed and accepted. Witnessed informed consent was obtained. The abdomen was ultrasonographically surveyed. An appropriate pocket of fluid was identified at the right lower quadrant. The skin were cleaned and prepped in the usual sterile fashion. Using ultrasound guidance, the peritoneal cavity was accessed with a 5-English paracentesis needle/catheter system. The trocar was removed. A total of 5850 ml of harsh-colored fluid were removed from the peritoneal cavity. The catheter was removed and a sterile dressing was applied. The procedure was well tolerated. US/Paracentesis with US IMPRESSION: Ultrasound guided paracentesis. Electronically Signed: Rigo Britt, at 10:27 EDT , Service support ,
[2018-12-01 10:37] VITALS: BP 125/57; PULSE 95; RESP 18; TEMP 36.8; O2SAT 99; BMI 32.1
[2018-12-01 10:42] VITALS: BP 126/96; BP 129/73; BP 131/64; BP 137/65; BP 152/82; BP 154/82; BP 160/77; PULSE 103; PULSE 106; PULSE 107; PULSE 93; PULSE 95; PULSE 98; PULSE 99; RESP 16; O2SAT 100; O2SAT 98; O2SAT 99
[2018-12-01] MEDS: Albumin Human 25% (100 mL) 25 GM/100 ML BAG IV (11:13)
== END ==
LOC: US 09:10 → MEDOUTP 10:25
PROVIDERS: Family Provider Family Medicine; PCP Family Medicine; Referring Provider Internal Medicine Gastroenterology; Visit Provider Internal Medicine Gastroenterology
DX: K74.60 Unspecified cirrhosis of liver (principal)
CPT/HCPCS: 96365; 96366; 49083; P9047; A4216

== ENCOUNTER 2018-12-02 08:19 | Outpatient (RCR) | payer MEDICARE, SELFPAY ==
[2018-11-19 08:40] VITALS: BMI 29.6
[2018-12-01 10:37] VITALS: BMI 32.1
[2018-12-02 09:29] LABS: Color, Urine Yellow (Yellow); Glucose, Dipstick Normal (Normal); Ketone-Dipstick Negative (Negative); Leukocyte Esterase-Dipstick 500 /ul (Negative); Nitrite-Dipstick Negative (Negative); Occult Blood-Urine Negative /ul (Negative); Protein-Dipstick 15 mg/dl (Negative); Specific Gravity, Urine 1.025 (1.002-1.030); Urine Bilirubin Dipstick Negative (Negative); Urine Clarity Clear (Clear); Urine Urobilinogen Normal (Normal)
[2018-12-02 09:38] LABS: International Normalized Ratio 1.1; Prothrombin Time (Protime)PT. 14.3 SECONDS (11.7-14.9)
[2018-12-02 09:39] LABS: Absolute Neutrophil Count 1.6 X10^3/uL (2.0-7.7); Basophil# 0.01 X10^3/uL; Basophil% 0.4 % (0-1); Differential Indicated SCAN CRITERIA MET; Eosinophil# 0.16 X10^3/uL; Eosinophils% 7.1 % (0-5); Hematocrit 29.3 % (37-47); Hemoglobin 9.9 g/dl (12.0-15.0); Lymphocyte % 17.7 % (19-41); Mean Corp Hgb Conc 33.8 g/gl (32-36); Mean Corpuscular Hgb 30.6 pg (27.0-32.0); Mean Corpuscular Volume 90.4 fL (81-99); Mean Platelet Vol. 9.9 fl (6.2-12.0); Monocyte# 0.06 X10^3/uL; Monocyte% 2.7 % (0-10); Neutrophil # 1.63 X10^3/uL (2.7-7.7); Neutrophil % 72.1 % (47-70); POSITIVE COUNT NO; POSITIVE DIFFERENTIAL YES; POSITIVE MORPHOLOGY NO; Partial Thromboplast Time 29.2 Seconds (24.1-36.2); Platelet Count 67 K/mm3 (150-450); RBC Distribution Width SD 46.9 fl (35.1-43.9); Red Blood Count 3.24 M/mm3 (4.2-5.4); White Blood Count 2.3 K/mm3 (4.4-11.0)
[2018-12-02 09:58] LABS: Microalbumin,Random Urine 39.6 mg/L (NO RANGE EST.); Protein, Urine (Random) 20.9 mg/dL (<11.9); Protein:Creat Ratio 158 mg/g CRE (0-200)
[2018-12-02 10:07] LABS: Vitamin D,25 Hydroxy 14.4 ng/mL (29.95-100.01)
[2018-12-02 10:08] LABS: ALB/GLOB Ratio 0.9 RATIO (0.9-2.4); AST(SGOT) 43 U/L (15-37); Alanine Aminotransfer ALT/SGPT 67 U/L (13-56); Albumin, Serum 2.9 g/dL (3.2-5.0); Alkaline Phosphatase 209 U/L (45-117); Anion Gap 7 (5-15); BUN 65 mg/dL (7-18); BUN/Creat Ratio 34.4 RATIO (10-20); Calcium,Total 9.7 mg/dL (8.5-10.1); Chloride 109 mmol/L (98-107); Cholesterol 112 mg/dL (200); Creatinine, Serum 1.89 mg/dL (0.55-1.02); EST Glomerular Filtration Rate 28 mL/min (>60); Est Glom Filt Rate - Afr Amer 34 mL/min (>60); Ferritin 135 ng/mL (8-252); Globulin 3.4 g/dL (2.2-4.2); Glucose 248 mg/dL (74-106); High Density Lipoprotein 30 mg/dL; PTHIN 328.1 pg/mL (18.4-80.1); Phosphorus 3.5 mg/dL (2.5-4.9); Potassium 4.9 mmol/L (3.5-5.1); Protein, Total 6.3 g/dL (6.4-8.2); Sodium Level 139 mmol/L (136-145); Triglycerides 77 mg/dL; Very Low Density Lipoprotein 15 mg/dL (5-40)
== END 2018-12-02 09:00 | disposition home or self-care (01) ==
LOC: LAB 08:19
PROVIDERS: Surgery; Family Provider Family Medicine; PCP Family Medicine; Referring Provider Internal Medicine Gastroenterology; Visit Provider Internal Medicine Gastroenterology
DX: K74.60 Unspecified cirrhosis of liver (principal); K75.81 Nonalcoholic steatohepatitis (NASH); E11.9 Type 2 diabetes mellitus without complications; N18.4 Chronic kidney disease, stage 4 (severe); D63.1 Anemia in chronic kidney disease; Z45.2 Encounter for adjustment and management of vascular access device
CPT/HCPCS: 36415; 80053; 80061; 81002; 82043; 82306; 82570; 82728; 83970; 84100; 84156; 85025; 85610; 85730

== ENCOUNTER 2018-12-06 09:09 | Day surgery (SDC) | payer MEDICARE, SELFPAY ==
[2018-11-30 12:36] VITALS: BMI 30.4
--- NOTE | 2018-12-01 01:54 | HP_ITS ---
Intake Vital Signs 11/30/18 Height 5 ft 2 in 11/30/18 Weight: 166 lb 3 oz 11/30/18 Body Mass Index (BMI) 30.4 11/30/18 Blood Pressure 123/79 H 11/30/18 Blood Pressure Location Lt brachial 11/30/18 Blood Pressure Position Sitting 11/30/18 Respiratory Rate 20 H 11/30/18 Pulse Rate 98 11/30/18 Pulse Ox 100 11/30/18 Body Mass Index (BMI) 32.5 Intake Visit Reasons: Port Placement Consult Chief Complaint: port consult Grand Scribe Required: No Is patient in pain?: No Allergies clarithromycin [From Biaxin] Allergy (Verified 11/30/18 12:37) Unknown iodine Allergy (Verified 11/30/18 12:37) Unknown Medications Atenolol [Tenormin (beta geraldine)] 100 mg PO DAILY 08/08/13 [History Confirmed 11/30/18] Insulin Lispro [Humalog KwikPen] See Protocol SQ TID 04/15/17 [History Confirmed 11/30/18] Furosemide [Lasix] 40 mg PO QODAY 01/22/18 [History Confirmed 11/30/18] Insulin Glargine,Hum.rec.anlog [Lantus] 10 unit SQ QHS 08/11/18 [History Confirmed 11/30/18] Is last menstrual period known: No Post menopausal: Yes Patient : No PFSH Medical History Venous insufficiency (chronic) (peripheral) (Chronic) History of breast cancer (Chronic) Ascites (Acute) Abdominal distension (Acute) Hyperkalemia (Acute) CKD (chronic kidney disease) stage 4, GFR 15-29 ml/min (Chronic) TIA (transient ischemic attack) (Chronic) DM2 (diabetes mellitus, type 2) (Chronic) Benign essential HTN (Chronic) Surgical History History of appendectomy (Acute) History of cataract extraction (Acute) History of colonoscopy (Acute) History of extraction of renal calculus (Acute) History of right mastectomy (Acute) Family History Father CHF (congestive heart failure) Heart disease Mother CVA (cerebral vascular accident) Social History Smoking Status: Never smoker HPI HPI HPI: JENNA MCCALLUM, is a 73 F who presents to the office today for HPI HPI Surgical H&P: Yes HPI: JENNA MCCALLUM, is a 73 F who presents to the office today for port placement due to poor IV access. Patient does have Forrester and gets albumin every month. Patient also has regular paracentesis and blood draws to monitor her coagulation due to the paracentesis. Patient denies any chest pain, abdominal pain or nausea or vomiting. ROS General General: Yes fatigue and breast cancer; no weight change, appetite, colon cancer or weakness HEENT HEENT: Yes eye surgery; no difficulty swallowing, eye injury, swollen glands or hoarseness Endo Endocrine: Yes diabetes mellitus; no thyroid disease, thyroid cancer, Hair loss, heat intolerance or cold intolerance Cardio Cardiovascular: Yes high blood pressure; no murmur, pacemaker, heart disease, atrial fibrillation, heart attack, heart stent, palpitations, shortness of breat with exertion or chest pain Resp Respiratory: No shortness of breath, No sleep apnea, No cough, No COPD, No asthma, No emphysema, No wheezing Gastro Gastrointestinal: No abdominal pain, No nausea or vomiting, No diarrhea, No constipation, No blood in stool, No acid reflux, No hemorrhoids, No ulcers, No gallbladder problem, No black,tarry stools Neuro Neurologic: No weakness Exam Const General: cooperative, comfortable, no acute distress Chest Chest palpation & inspection: normal inspection of the chest (Of upper, status post right mastectomy) Resp Effort & Inspection: normal respiratory effort Cardio Rate: regular rate Heart Sounds: no murmurs GI Inspection: non-distended Palpation: soft, no guarding, nontender Assessment & Plan Problems 1. Encounter for adjustment or management of vascular access device Z45.2 2. FORRESTER (nonalcoholic steatohepatitis) K75.81 Plan We will check CBC, will liver profile, PT/PT/INR?PTT prior to placing port. I have discussed above with the patient- Port-a-Cath placement. Right possible left Patient has been counseled as to the risks/benefits of the procedure. I have explained the risks of the surgery, including but not limited to: infection, bleeding, injury to any blood vessels/nerves, injury to lungs (such as pneumothorax or hemothorax and need for chest tube), not having any access, nonfunctioning of port due to thrombosis, infection of port, etc. the patient understands and agrees to proceed. I have answered all the patient's questions to the patient?s satisfaction and the patient has no further questions. Colleen Harrison M.D. Pager: [phone] [facility] [address] [place] [address], [facility], [address] [place] [address] Office: [phone] Orders Orders: CBC W/Diff, Automated 11/30/18 Z45.2 Partial Thromboplast Time 11/30/18 K75.81 Comprehensive Metabolic Profil 11/30/18 K75.81 Prothrombin Time w/INR 11/30/18 K75.81 Plan Detail Follow Up We will schedule port placement. Coding Level of Care Code Off vis,new,level 3 Diagnoses Encounter for adjustment or management of vascular access device Z45.2 FORRESTER (nonalcoholic steatohepatitis) K75.81 12/01/18 1354 <Electronically signed by Colleen Cole am, MD> Date _ Colleen Harrison MD I have examined the patient the following changes are noted: Patient's normally has low platelets currently they are 67 which I believe should be adequate for port placement however patient has been typed and screened. Did discuss patient that with her platelet count if she did have some bleeding occur she would likely need a transfusion. Patient was agreeable plan had no further questions this time.
[2018-12-01 10:37] VITALS: BMI 32.1
[2018-12-06 09:41] VITALS: BP 109/58; PULSE 68; RESP 16; TEMP 36.8; O2SAT 100; BMI 31.4
[2018-12-06 09:50] LABS: Bedside Glucose 205 mg/dL (70-110)
[2018-12-06] MEDS: Bupivacaine Mpf 0.5% 30 ML VIAL (10:22)
[2018-12-06] MEDS: Cefazolin 2 GM in 0.9% Normal Saline 100 ML IV (10:49)
--- NOTE | 2018-12-06 11:47 | RAD_ITS ---
STUDY: X-RAY CHEST REASON FOR EXAM: Female, 73 years old. Port placement TECHNIQUE: Single AP portable view of the chest. COMPARISON: CT abdomen and pelvis 11/03/2017. FINDINGS: There is a right-sided [id number]-Ysbr with its tip overlying the SVC. There are surgical clips overlying the right axilla The lungs are clear and expanded. There is no demonstrated pleural abnormality. There is a hiatal hernia overlying the mediastinal shadow. Normal size heart. Normal mediastinum and owen. Normal visualized pulmonary arteries. Normal visualized aortic arch and descending thoracic aorta. Normal visualized thoracic spine. Normal visualized ribs, clavicles, and shoulders. There is no demonstrated abnormality of the visualized soft tissue structures of the upper abdomen. RAD/CXR for Line Placement IMPRESSION: Clear lungs. Hiatal hernia. Electronically Signed: Luzma Gasca, at 12:36 EDT Tel , Service support ,
--- NOTE | 2018-12-06 11:48 | OP.PCM_ITS ---
Report of Operation Date of Procedure: 12/06/18 Pre-Operative Diagnosis: z45.2, Forrester Post-Operative Diagnosis: Same Surgery/Procedure Performed:: 1. Insertion of the right IJ Port-A-Cath. 2. Use of ultrasound. 3. Use of fluoroscopy Type of Anesthesia:: MAC/Supplemental Anesthesiologist: Jose Calvin Special Medications: Ancef 2 g IV x1 Specimen's removed: none Estimated Blood Loss (mL): < 10 cc Fluids Replaced: 600 cc Description of Procedure: After informed consent was given, the patient was brought to the operating room and placed in the supine position. Appropriate time out protocol was followed. He was then given IV conscious sedation for anesthesia. The patient's bilate ral upper chest and neck were then prepped with a surgical skin preparation and sterile surgical drapes were placed. After proper landmarks were ascertained, the skin at the upper right chest area was then infiltrated with 1:1 mixture of 1% lidocaine with epinephrine and 0.5% maricaine. A needle trocar was then inserted into the right internal jugular vein with ultrasound guidance-multiple vessels were viewed with u/s and the right IJ was chosen-- and there was good aspiration of venous blood. A wire was then threaded into the needle trocar and this was visualized under fluoroscopy to e nsure that the wire was in the superior vena cava. Once this was done, then the needle trocar was removed. A small skin sayda was made with an 11 blade knife at the wire entrance site. The dilator with the introducer sheath attached was then placed over the wire into the right internal jugular vein via the Seldinger technique and this was visualized under fluoroscopy. The dilator and sheath were in proper position as visualized by fluoroscopy. A subcutaneous pocket was then created caudad to the catheter insertion site. A transverse skin incision was made after the skin and subcutaneous tissues were infiltrated with local anesthetic. Blunt dissection was then used to create a space large enough for placement of the subcutaneous port. The catheter was then tunneled into the subcutaneous pocket. The wire and dilator were then removed. The catheter was then threaded into the introducer sheath and was positioned with its tip at the junction of the superior vena cava and the right atrium as visualized under fluoroscopy. The excess catheter was transected. The catheter was then attached to the subcutaneous port using manufacturers guidelines. Initially the catheter would not flush and was kinked in the neck. Additional catheter was pulled back into the neck to make for good curve to the Catheter so there would not be a kink. The catheter was flushed with a heparin saline mixture prior to placement, and catheter flushed and john paul well.. Hemostasis was carefully controlled with electrocautery. The port was sutured to the subcutaneous fascia using 3-0 Vicryl suture at two sites. The port was then placed in the subcutaneous pocket and the sutures were ligated. The incision were reapproximated with interrupted subdermal 3-0 vicryl sutures. The skin was reapproximated with 3-0 nylon suture in a interrupted fashion. Steristrips were used for reinforcement of the skin closure at IJ insertion site and a sterile opsite dressings were applied. The patient tolerated the procedure well. Implants Used: Bard PowerPort isp M.R.I. 6Fr Lot [id number] Grafts/Implants Used: Bard PowerPort isp M.R.I. 6Fr Lot [id number] - Complications none
[2018-12-06 11:52] VITALS: BP 109/53; BP 109/58; PULSE 70; RESP 16; TEMP 36.6; O2SAT 100
[2018-12-06 11:57] VITALS: BP 108/54; BP 109/58; PULSE 70; RESP 16; O2SAT 100
--- NOTE | 2018-12-06 11:58 | DCINST_ITS ---
Discharge Diet: Light diet - advance as tolerated May shower in (days): 1 - Keep port site clean and dry for 5 days okay to get neck incision when after 1 day and okay to remove dressing from neck incision tomorrow, okay to leave the port dressing on for 2 to 3 days and then change. Lifting Restrictions: No lifting greater than 15 pounds on the right side x1 week. Call your doctor if your incision/area has: Continuous Slow Oozing, Sudden Increased Bleeding, Increased Pain/ Swelling, Increased Redness, Foul Smelling Discharge, Swelling at the incision site Call your doctor if you observe: Fever of 101 or Higher Remove Dressing in (days):: 1 - Okay to move neck dressing in 1 day, okay to keep port dressing on for 2 to 3 days and then change Allergies/Adverse Reactions: Allergies clarithromycin [From Biaxin] Allergy (Verified 12/02/18 13:40) Unknown iodine Allergy (Verified 12/02/18 13:40) Unknown Medications to take at Discharge Atenolol [Tenormin (beta geraldine)] 50 mg PO BID 08/08/13 Insulin Lispro [Humalog KwikPen] See Protocol SQ TID 04/15/17 Furosemide [Lasix] 40 mg PO QODAY 01/22/18 Insulin Glargine,Hum.rec.anlog [Lantus] 25 unit SQ QHS 08/11/18 Primary Care Physician: Nicola Bay MD [Primary Care Provider] - Test Results: Test results from this visit will be discussed in further detail at your follow- up appointment, if applicable. Please Follow Up With: Colleen Harrison MD - After 5 PM/weekends call [phone] with any concerns When: Call office for an appointment in 10 days for suture removal Proposed Discharge Date: 12/06/18
[2018-12-06 12:02] VITALS: BP 109/58; BP 97/59; PULSE 70; RESP 16; O2SAT 100
[2018-12-06 12:07] VITALS: BP 109/58; BP 125/64; PULSE 67; RESP 16; TEMP 36.3; O2SAT 100
[2018-12-06 12:52] VITALS: BP 109/58
== END 2018-12-06 13:10 | disposition home or self-care (01) ==
LOC: SDC 09:11 → AC 09:11
PROVIDERS: Family Provider Family Medicine; PCP Family Medicine; Referring Provider Surgery; Visit Provider Surgery
PROC: (CPT 36561; principal; 2018-12-06 10:45)
DX: Z45.2 Encounter for adjustment and management of vascular access device (principal); K75.81 Nonalcoholic steatohepatitis (NASH); I13.10 Hypertensive heart and chronic kidney disease without heart failure, with stage 1 through stage 4 chronic kidney disease, or unspecified chronic kidney disease; E11.22 Type 2 diabetes mellitus with diabetic chronic kidney disease; N18.4 Chronic kidney disease, stage 4 (severe); D63.1 Anemia in chronic kidney disease; I87.2 Venous insufficiency (chronic) (peripheral); E87.5 Hyperkalemia; R18.8 Other ascites; R01.1 Cardiac murmur, unspecified; Z85.3 Personal history of malignant neoplasm of breast; Z79.4 Long term (current) use of insulin; Z79.899 Other long term (current) drug therapy; Z86.73 Personal history of transient ischemic attack (TIA), and cerebral infarction without residual deficits
CPT/HCPCS: 00532; 36561; 71045; 77001; 82962; 86850; 86900; J7120

== ENCOUNTER → 2018-12-08 | Outpatient (CLI) | payer MEDICARE, SELFPAY ==
[2018-10-06 11:47] VITALS: BMI 31.4
[2018-12-06 09:41] VITALS: BMI 31.4
--- NOTE | 2018-12-08 10:18 | US_ITS ---
PROCEDURE: Ultrasound guided paracentesis. DATE OF EXAMINATION: December 08, 2018. INDICATION: Female, 73 years old. Ascites. PHYSICIAN: Rigo Britt M.D. TECHNIQUE: The risks, benefits, and alternatives to the procedure were explained to the patient. The specific risks of bleeding, infection, and damage to bowel were detailed and accepted. Witnessed informed consent was obtained. The abdomen was ultrasonographically surveyed. An appropriate pocket of fluid was identified at the right lower quadrant. The skin were cleaned and prepped in the usual sterile fashion. Using ultrasound guidance, the peritoneal cavity was accessed with a 5-Emirati paracentesis needle/catheter system. The trocar was removed. A total of 6100 ml of harsh-colored fluid were removed from the peritoneal cavity. The catheter was removed and a sterile dressing was applied. The procedure was well tolerated. US/Paracentesis with US IMPRESSION: Ultrasound guided paracentesis. Electronically Signed: Rigo Britt, at 12:38 EDT , Service support ,
[2018-12-08 11:12] VITALS: BP 108/52; PULSE 72; RESP 16; O2SAT 99
[2018-12-08 12:04] VITALS: BP 111/51; PULSE 67; RESP 16; TEMP 36.4; O2SAT 100; BMI 31.8
[2018-12-08] MEDS: Albumin Human 25% (100 mL) 25 GM/100 ML BAG IV (12:39)
== END | disposition home or self-care (01) ==
LOC: US 10:17 → MEDOUTP 10:58
PROVIDERS: Family Provider Family Medicine; PCP Family Medicine; Referring Provider Internal Medicine Gastroenterology; Visit Provider Internal Medicine Gastroenterology
DX: K74.60 Unspecified cirrhosis of liver (principal)
CPT/HCPCS: 96365; 96366; 49083; P9047; A4216

== ENCOUNTER 2018-12-12 09:29 | Day surgery (SDC) | payer MEDICARE, SELFPAY ==
[2018-12-09 10:19] VITALS: BMI 31.8
[2018-12-12] VITALS (7 sets, daily range): BP systolic 93–121; BP diastolic 67–74; PULSE 59–67; RESP 16–18; TEMP 36.6–36.8; O2SAT 95–100; BMI 31.0
[2018-12-12 10:10] LABS: Bedside Glucose 166 mg/dL (70-110)
--- NOTE | 2018-12-12 10:48 | PCM.HP.BLA ---
History and Physical Date of Admission: 12/12/18 [facility] [address] [place], [place] [id number] OFFICE VISIT Date of Service: 12/09/18 MR#: [id number] Acct: [id number] Name: JENNA MCCALLUM Rep #: [id number] : 1945 Provider: Umang Fierro MD Age/Sex: 73/F Location: [facility] Status: Signed Intake Vital Signs 12/09/18 Body Mass Index (BMI) 31.8 12/09/18 Height 5 ft 2 in 12/09/18 Weight: 174 lb 12/09/18 Body Mass Index (BMI) 31.8 12/09/18 Blood Pressure 170/69 H 12/09/18 Blood Pressure Location Rt brachial 12/09/18 Blood Pressure Position Sitting 12/09/18 Respiratory Rate 18 12/09/18 Pulse Rate 84 12/09/18 Pulse Source Monitor 12/09/18 Temperature 97.7 F L 12/09/18 Temperature Source Oral 12/09/18 Pulse Ox 98 12/09/18 Oxygen Delivery Method room air Intake Visit Reasons: Port Consult 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 Is patient in pain?: No Allergies clarithromycin [From Biaxin] Allergy (Verified 12/09/18 14:16) Unknown iodine Allergy (Verified 12/09/18 14:16) Unknown Medications Atenolol [Tenormin (beta geraldine)] 50 mg PO BID 08/08/13 [History Confirmed 12/09/18] Insulin Lispro [Humalog KwikPen] See Protocol SQ TID 04/15/17 [History Confirmed 12/09/18] Furosemide [Lasix] 40 mg PO QODAY 01/22/18 [History Confirmed 12/09/18] Insulin Glargine,Hum.rec.anlog [Lantus] 25 unit SQ QHS 08/11/18 [History Confirmed 12/09/18] [facility] Medical History Venous insufficiency (chronic) (peripheral) (Chronic) History of breast cancer (Chronic) Ascites (Acute) Abdominal distension (Acute) Hyperkalemia (Acute) CKD (chronic kidney disease) stage 4, GFR 15-29 ml/min (Chronic) TIA (transient ischemic attack) (Chronic) DM2 (diabetes mellitus, type 2) (Chronic) Benign essential HTN (Chronic) Surgical History History of appendectomy (Acute) History of cataract extraction (Acute) History of colonoscopy (Acute) History of extraction of renal calculus (Acute) History of right mastectomy (Acute) history port insertion (Acute) Family History Father CHF (congestive heart failure) Heart disease Mother CVA (cerebral vascular accident) Social History (Updated 12/10/18 @ 11:01 by Umang Fierro MD) Smoking Status: Never smoker HPI HPI HPI: JENNA MCCALLUM, is a 73 F who presents to the office today for HPI HPI Surgical H&P: Yes HPI: JENNA MCCALLUM, is a 73 F who presents to the office today for second opinion with regards to a ill functioning right IJ PowerPort. Patient had a right IJ PowerPort placed on 12/06/2018. Unfortunately the catheter has not been able to be used secondary to there being a small kink in the neck which can easily be seen on the chest x-ray. She is not complaining of any overt pain or discharge from the incision sites. I been asked to see the patient to evaluate for possible resolution or revision or complete reinsertion of a new port. ROS General General: Yes fatigue and breast cancer; no weight change, appetite, colon cancer or weakness HEENT HEENT: Yes eye surgery; no difficulty swallowing, eye injury, swollen glands or hoarseness Endo Endocrine: Yes diabetes mellitus; no thyroid disease, thyroid cancer, Hair loss, heat intolerance or cold intolerance Cardio Cardiovascular: Yes high blood pressure; no murmur, pacemaker, heart disease, atrial fibrillation, heart attack, heart stent, palpitations, shortness of breat with exertion or chest pain Resp Respiratory: No shortness of breath, No sleep apnea, No cough, No COPD, No asthma, No emphysema, No wheezing Gastro Gastrointestinal: No abdominal pain, No nausea or vomiting, No diarrhea, No constipation, No blood in stool, No acid reflux, No hemorrhoids, No ulcers, No gallbladder problem, No black,tarry stools Neuro Neurologic: No weakness Exam Const General: no acute distress, well developed, well hydrated Orientation: oriented to person, oriented to place, oriented to time [facility] Head: normocephalic, atraumatic Ears: external ears normal Mouth: moist mucous membranes Eyes Sclera: sclerae normal Pupils: normal by confrontation Neck Neck: no lymphadenopathy noted Neck mass: No Thyroid: thyroid normal, symmetrical Chest Chest palpation & inspection: normal inspection of the chest Other: Patient has an incision on the chest with sutures in place there is no signs of cellulitis there is no signs of infection on the neck there is no overt bruising identified. Resp Effort & Inspection: normal respiratory effort Auscultation: clear to auscultation bilaterally Percussion: percussion normal Cardio Rate: regular rate Rhythm: regular rhythm Heart Sounds: no murmurs GI Palpation: soft, no hepatosplenomegaly, no masses, nontender Rectal Exam: other Other: Rectal exam deferred. Extrem General: normal to inspection, no clubbing, cyanosis or edema Assessment & Plan Problems 1. Vascular catheter fitting or adjustment Z45.2 Plan I believe the appropriate thing to do here is to attempt to salvage the catheter and see if we can make some adjustments with in the neck to reposition the catheter so that it has more of a gentle curve going into the internal jugular vein. I believe this can be done under local MAC. I told the patient that the biggest risk here is bleeding and infection there is a good chance we will be able to straighten out the catheter and get it so it is in the right position however I am not entirely sure that the catheter will work even despite doing this. She understands that there is a possibility that we may have to place a new catheter on the left side. I am going to access the port at the time of surgery so that I can assess whether or not it flushes and irrigates well. If it does not flush and irrigate well that I am going to place a new catheter on the left side at that time. I plan to perform a [] port a cath placement.The risks, benefits, anticipated outcomes and possible complication were mentioned. My staff has also explained the procedure in understandable terms and the patient was given the option to take printed material concerning the planned procedure. The patient had the opportunity to ask questions concerning the planned procedure. The patient freely consents to the planned procedure. Coding Level of Care Code Off vis,est,level 3 Diagnoses Vascular catheter fitting or adjustment Z45.2 12/10/18 1101 <Electronically signed by Umang Fierro MD> Date Umang Fierro MD Cosigner Signature: Date (if applicable) CC: Nicola Bay MD ~ I have re-examined the patient. There are no clinical changes since date of exam.
[2018-12-12] MEDS: Cefazolin 2 GM in 0.9% Normal Saline 100 ML IV (11:33)
[2018-12-12] MEDS: Bupivacaine Mpf 0.5% 30 ML VIAL (11:50)
--- NOTE | 2018-12-12 12:03 | PCM.OPRPT ---
Problem List (1) Encounter for adjustment or management of vascular access device Status: Acute Report of Operation Date of Procedure: 12/12/18 Pre-Operative Diagnosis: Vascular catheter fitting and adjustment Post-Operative Diagnosis: Same Surgery/Procedure Performed:: Adjustment of vascular catheter in the neck Type of Anesthesia:: Local MAC Anesthesiologist: Mario Fonseca Description of Procedure: Patient was brought into the OR placed in the supine position. Under excellent MAC anesthetic the right neck was sterilely prepped draped usual fashion. Local was injected I opened up the previous incision in the neck dissected down and saw a kink in the catheter. I debrided some of the subcutaneous tissues so that I could allow a gentle curve to the catheter once this was completed and I saw gentler curve I used fluoroscopy to confirm this. I accessed the catheter it irrigated and flushed well and I flushed it with 5 cc of Hepflush. I made sure that the neck was not twisted or turned to either side when I checked the catheter to make sure it worked well. I sutured the skin back together with interrupted 3-0 Vicryl. Dermabond was applied. Sterile dressings were applied. The patient tolerated the procedure well. - Admit VTE Documentation VTE Present on Admission: No VTE Mechan Device Prophylaxis: SCD's VTE Pharm Prophylaxis ordered?: No Reason prophylaxis not ordered:: Treatment Not Indicated
--- NOTE | 2018-12-12 12:07 | DCINST_ITS ---
Discharge Diet: No Restrictions - Pain medication may cause nausea. You should typically eat light foods as you take your pain medication. Discharge Activity: May Shower - with the bandage in place 1-2 days after surgery. DO NOT SHOWER WHEN YOUR PORT IS ACCESSED. Additional Activity Instructions:: May not drive, work with heavy equipment, or sign legal documents for [address] if you are no longer taking narcotic pain medications. You may drive when you are no longer taking pain medications. Additional Dressing/Incision Instructions:: Leave the bandage on for 2-3 days. When you remove the bandage, leave the steri-strips intact until they fall off. Allergies/Adverse Reactions: Allergies clarithromycin [From Biaxin] Allergy (Verified 12/09/18 14:16) Unknown iodine Allergy (Verified 12/09/18 14:16) Unknown Medications to take at Discharge Atenolol [Tenormin (beta geraldine)] 50 mg PO BID 08/08/13 Insulin Lispro [Humalog KwikPen] See Protocol SQ TID 04/15/17 Furosemide [Lasix] 40 mg PO QODAY 01/22/18 Insulin Glargine,Hum.rec.anlog [Lantus] 25 unit SQ QHS 08/11/18 Primary Care Physician: Nicola Bay MD [Primary Care Provider] - Test Results: Test results from this visit will be discussed in further detail at your follow- up appointment, if applicable. Please Follow Up With: Umang Fierro MD - [phone] When: Please plan to follow up in 7 days in the office.
--- NOTE | 2018-12-12 12:08 | RAD_ITS ---
STUDY: X-RAY CHEST REASON FOR EXAM: Female, 73 years old. TECHNIQUE: 1 view COMPARISON: December 06, 2018. FINDINGS: The heart is enlarged. There is large fixed hiatal hernia behind the heart. The lung bahena are clear. There is central venous line with the tip in the superior vena cava. I do recommend CT scan to evaluate the paravertebral soft tissue mass just below the diaphragm on the right side to check if this is related to the hiatal hernia or to the aorta. RAD/Chest 1 View (Portable) IMPRESSION: Fixed hiatal hernia, no active intrathoracic disease. Please see the discussion above. Electronically Signed: Danish Gao, at 13:20 EDT Tel , Service support ,
--- NOTE | 2018-12-12 13:55 | RAD_ITS ---
STUDY: X-RAY CHEST REASON FOR EXAM: Female, 73 years old. Port placement TECHNIQUE: Single AP portable view of the chest. COMPARISON: December 12, 2018 FINDINGS: There is a right-sided portacatheter tip is in the superior vena cava. The lungs are clear and expanded. There is no demonstrated pleural abnormality. Normal size heart. There is a retrocardiac density that measures approximately 13 x 8.9 cm. This may represent a hiatal hernia or a combination of fluid as was seen on the prior study. Normal visualized pulmonary arteries. Normal visualized aortic arch and descending thoracic aorta. There are diffuse degenerative changes of the visualized thoracic spine. Normal visualized ribs, clavicles, and shoulders. There is no demonstrated abnormality of the visualized soft tissue structures of the upper abdomen. RAD/CXR for Line Placement IMPRESSION: There is a retrocardiac density that measures approximately 13 x 8.9 cm. This may represent a hiatal hernia or a combination of fluid as was seen on the prior study. There is a right-sided portacatheter tip is in the superior vena cava. Electronically Signed: Mell Zhang MD at 15:29 EDT Tel , Service support ,
== END 2018-12-12 14:45 | disposition home or self-care (01) ==
LOC: SDC 09:30 → AC 09:31
PROVIDERS: Family Provider Family Medicine; PCP Family Medicine; Referring Provider Surgery; Visit Provider Surgery
PROC: (CPT 36576; principal; 2018-12-12 11:30)
DX: Z45.2 Encounter for adjustment and management of vascular access device (principal); I12.9 Hypertensive chronic kidney disease with stage 1 through stage 4 chronic kidney disease, or unspecified chronic kidney disease; E11.22 Type 2 diabetes mellitus with diabetic chronic kidney disease; N18.4 Chronic kidney disease, stage 4 (severe); D63.1 Anemia in chronic kidney disease; D69.6 Thrombocytopenia, unspecified; I87.2 Venous insufficiency (chronic) (peripheral); F32.9 Major depressive disorder, single episode, unspecified; F41.9 Anxiety disorder, unspecified; Z79.4 Long term (current) use of insulin; Z79.899 Other long term (current) drug therapy; Z85.3 Personal history of malignant neoplasm of breast; Z86.73 Personal history of transient ischemic attack (TIA), and cerebral infarction without residual deficits
CPT/HCPCS: 36576; 71045; 77001; 82962; J7120; J2405

== ENCOUNTER → 2018-12-15 10:15 | Outpatient (CLI) | payer MEDICARE, SELFPAY ==
[2018-10-06 11:47] VITALS: BMI 31.4
[2018-12-12 09:54] VITALS: BMI 31.0
--- NOTE | 2018-12-15 10:17 | US_ITS ---
PROCEDURE: ULTRASOUND GUIDED PARACENTESIS CLINICAL HISTORY: Female, 73 years old. CONSENT: Time-Out Called: Yes. Consent form signed: Yes. PT-PTT Levels Checked: Yes. SEDATION: TECHNIQUE: FINDINGS: Under ultrasound guidance and following proper antiseptic preparation and local anesthesia a 6 Czech draining catheter was inserted in the right lower quadrant. 6550ml of clear yellow fluid aspirated. The patient tolerated the procedure well. US/Paracentesis with US IMPRESSION: Uneventful paracentesis. Electronically Signed: Danish Gao, at 16:01 EDT Tel , Service support ,
[2018-12-15 11:56] VITALS: BP 95/49; PULSE 60; RESP 16; TEMP 36.5; O2SAT 98; BMI 32.1
[2018-12-15] MEDS: Albumin Human 25% (100 mL) 25 GM/100 ML BAG IV (12:50)
[2018-12-15 14:49] VITALS: BP 110/47; BP 115/51; BP 115/60; PULSE 63; PULSE 64; PULSE 65; RESP 16; O2SAT 100
== END ==
PROVIDERS: Family Provider Family Medicine; PCP Family Medicine; Referring Provider Internal Medicine Gastroenterology; Visit Provider Internal Medicine Gastroenterology
DX: K74.60 Unspecified cirrhosis of liver (principal)
CPT/HCPCS: 96365; 96366; 49083; P9047; A4216

== ENCOUNTER → 2018-12-23 10:24 | Outpatient (CLI) | payer MEDICARE, SELFPAY ==
[2018-10-06 11:47] VITALS: BMI 31.4
[2018-12-16 13:17] VITALS: BMI 32.1
--- NOTE | 2018-12-23 10:26 | US_ITS ---
PROCEDURE: Ultrasound guided paracentesis. DATE OF EXAMINATION: December 23, 2018. INDICATION: Female, 73 years old. Ascites. PHYSICIAN: Rigo Britt M.D. TECHNIQUE: The risks, benefits, and alternatives to the procedure were explained to the patient. The specific risks of bleeding, infection, and damage to bowel were detailed and accepted. Witnessed informed consent was obtained. The abdomen was ultrasonographically surveyed. An appropriate pocket of fluid was identified at the right lower quadrant. The skin were cleaned and prepped in the usual sterile fashion. Using ultrasound guidance, the peritoneal cavity was accessed with a 5-Wallisian paracentesis needle/catheter system. The trocar was removed. A total of 6100 ml of harsh-colored fluid were removed from the peritoneal cavity. The catheter was removed and a sterile dressing was applied. The procedure was well tolerated. US/Paracentesis with US IMPRESSION: Ultrasound guided paracentesis. Electronically Signed: Rigo Britt, at 12:17 EDT , Service support ,
[2018-12-23 10:39] VITALS: BP 107/59; PULSE 79; RESP 16; O2SAT 98
[2018-12-23 10:45] VITALS: BP 122/56; PULSE 82; RESP 16; O2SAT 99
[2018-12-23 11:00] VITALS: BP 131/56; PULSE 78; RESP 15; O2SAT 99
[2018-12-23 11:13] VITALS: BP 104/52; PULSE 73; RESP 16; O2SAT 98
[2018-12-23] MEDS: Albumin Human 25% (100 mL) 25 GM/100 ML BAG IV (11:48)
[2018-12-23 12:05] VITALS: BP 104/46; PULSE 77; RESP 16; TEMP 36.6; O2SAT 100; BMI 32.3
== END ==
LOC: US 10:24 → MEDOUTP 11:25
PROVIDERS: Family Provider Family Medicine; PCP Family Medicine; Referring Provider Internal Medicine Gastroenterology; Visit Provider Internal Medicine Gastroenterology
DX: K74.60 Unspecified cirrhosis of liver (principal); R18.8 Other ascites
CPT/HCPCS: 49083; J7050; P9047; A4216

== ENCOUNTER → 2018-12-29 10:15 | Outpatient (CLI) | payer MEDICARE, SELFPAY ==
[2018-10-06 11:47] VITALS: BMI 31.4
[2018-12-23 12:05] VITALS: BMI 32.3
--- NOTE | 2018-12-29 10:18 | US_ITS ---
PROCEDURE: Ultrasound guided paracentesis. DATE OF EXAMINATION: December 29, 2018. INDICATION: Female, 73 years old. Ascites. PHYSICIAN: Rigo Britt M.D. TECHNIQUE: The risks, benefits, and alternatives to the procedure were explained to the patient. The specific risks of bleeding, infection, and damage to bowel were detailed and accepted. Witnessed informed consent was obtained. The abdomen was ultrasonographically surveyed. An appropriate pocket of fluid was identified at the right/left lower quadrant. The skin were cleaned and prepped in the usual sterile fashion. Using ultrasound guidance, the peritoneal cavity was accessed with a 5-Bermudian paracentesis needle/catheter system. The trocar was removed. A total of 5250 ml of harsh-colored fluid were removed from the peritoneal cavity. The catheter was removed and a sterile dressing was applied. The procedure was well tolerated. US/Paracentesis with US IMPRESSION: Ultrasound guided paracentesis. Electronically Signed: Rigo Britt, at 11:22 EDT , Service support ,
[2018-12-29 11:16] VITALS: BP 108/62; BP 114/60; BP 129/60; PULSE 96; PULSE 97; PULSE 99; RESP 16; O2SAT 9; O2SAT 98; O2SAT 99
[2018-12-29] MEDS: Albumin Human 25% (100 mL) 25 GM/100 ML BAG IV (11:25)
[2018-12-29 11:51] LABS: International Normalized Ratio 1.1; Prothrombin Time (Protime)PT. 13.9 SECONDS (11.7-14.9)
[2018-12-29 11:52] LABS: Partial Thromboplast Time 33.2 Seconds (24.1-36.2)
[2018-12-29 11:56] LABS: Anion Gap 5 (5-15); BUN 86 mg/dL (7-18); BUN/Creat Ratio 41.1 RATIO (10-20); Calcium,Total 9.6 mg/dL (8.5-10.1); Chloride 109 mmol/L (98-107); Creatinine, Serum 2.09 mg/dL (0.55-1.02); EST Glomerular Filtration Rate 25 mL/min (>60); Est Glom Filt Rate - Afr Amer 30 mL/min (>60); Ferritin 108 ng/mL (8-252); Glucose 323 mg/dL (74-106); Potassium 5.2 mmol/L (3.5-5.1); Sodium Level 138 mmol/L (136-145)
[2018-12-29 19:35] LABS: Xtra Tube EP Lab EXTRA TUBE
== END ==
LOC: US 10:15 → MEDOUTP 11:07
PROVIDERS: Family Provider Family Medicine; PCP Family Medicine; Referring Provider Internal Medicine Gastroenterology; Visit Provider Internal Medicine Gastroenterology
DX: K74.60 Unspecified cirrhosis of liver (principal)
CPT/HCPCS: 96365; 96366; 49083; 80048; 82728; 85610; 85730; P9047; A4216

== ENCOUNTER → 2019-01-05 10:17 | Outpatient (CLI) | payer MEDICARE, SELFPAY ==
[2018-10-06 11:47] VITALS: BMI 31.4
[2018-12-23 12:05] VITALS: BMI 32.3
--- NOTE | 2019-01-05 10:19 | US_ITS ---
PROCEDURE: Ultrasound guided paracentesis. DATE OF EXAMINATION: January 05, 2090. INDICATION: Female, 73 years old. Ascites. PHYSICIAN: Rigo Britt M.D. TECHNIQUE: The risks, benefits, and alternatives to the procedure were explained to the patient. The specific risks of bleeding, infection, and damage to bowel were detailed and accepted. Witnessed informed consent was obtained. The abdomen was ultrasonographically surveyed. An appropriate pocket of fluid was identified at the right lower quadrant. The skin were cleaned and prepped in the usual sterile fashion. Using ultrasound guidance, the peritoneal cavity was accessed with a 5-Senegalese paracentesis needle/catheter system. The trocar was removed. A total of 5950 ml of harsh-colored fluid were removed from the peritoneal cavity. The catheter was removed and a sterile dressing was applied. The procedure was well tolerated. US/Paracentesis with US IMPRESSION: Ultrasound guided paracentesis. Electronically Signed: Rigo Britt, at 12:19 EDT , Service support ,
[2019-01-05 10:47] VITALS: BP 103/46; BP 106/78; BP 113/56; PULSE 76; PULSE 82; PULSE 83; RESP 18; O2SAT 96; O2SAT 98; O2SAT 99
[2019-01-05 11:54] VITALS: BP 106/44; PULSE 72; RESP 16; TEMP 36.7; O2SAT 97; BMI 31.8
[2019-01-05] MEDS: Albumin Human 25% (100 mL) 25 GM/100 ML BAG IV (11:57)
== END ==
PROVIDERS: Family Provider Family Medicine; PCP Family Medicine; Referring Provider Internal Medicine Gastroenterology; Visit Provider Internal Medicine Gastroenterology
DX: K74.60 Unspecified cirrhosis of liver (principal)
CPT/HCPCS: 96365; 49083; P9047; A4216

== ENCOUNTER → 2019-01-12 10:16 | Outpatient (CLI) | payer MEDICARE, SELFPAY ==
[2018-10-06 11:47] VITALS: BMI 31.4
[2019-01-05 11:54] VITALS: BMI 31.8
--- NOTE | 2019-01-12 10:19 | US_ITS ---
PROCEDURE: ULTRASOUND GUIDED PARACENTESIS CLINICAL HISTORY: Female, 73 years old. Ascites, elevated LFTs CONSENT: Informed consent obtained Time-Out Called: Yes. Consent form signed: Yes. PT-PTT Levels Checked: Yes. SEDATION: Local sedation with 2% Xylocaine TECHNIQUE: Ultrasound guidance FINDINGS: FLUID PRE-PROCEDURE There is posterior enhancement. The findings appear anechoic. There is no loculation. Fluid noted best in the right lower quadrant FLUID POST-PROCEDURE Amount of fluid drained: 6000 ml. Patient tolerated the procedure well with no immediate complications and was discharged home in good condition US/Paracentesis with US IMPRESSION: Successful large volume ultrasound-guided paracentesis Electronically Signed: Ish Alcocer MD at 11:52 EDT , Service support ,
[2019-01-12 11:49] VITALS: BP 104/60; BP 113/47; BP 130/60; BP 136/64; PULSE 68; PULSE 70; PULSE 78; RESP 14; O2SAT 100; O2SAT 98
[2019-01-12 11:50] VITALS: BP 112/47; PULSE 69; RESP 16; TEMP 36.6; O2SAT 100; BMI 31.4
[2019-01-12] MEDS: Albumin Human 25% (100 mL) 25 GM/100 ML BAG IV (11:55)
== END ==
LOC: US 10:17 → MEDOUTP 11:32
PROVIDERS: Family Provider Family Medicine; PCP Family Medicine; Referring Provider Internal Medicine Gastroenterology; Visit Provider Internal Medicine Gastroenterology
DX: K74.60 Unspecified cirrhosis of liver (principal); R18.8 Other ascites
CPT/HCPCS: 96365; 96366; 49083; P9047; A4216

== ENCOUNTER → 2019-01-19 10:22 | Outpatient (CLI) | payer MEDICARE, SELFPAY ==
[2018-12-01 10:37] VITALS: BMI 32.1
[2019-01-12 11:50] VITALS: BMI 31.4
--- NOTE | 2019-01-19 10:26 | US_ITS ---
PROCEDURE: Ultrasound guided paracentesis. DATE OF EXAMINATION: January 19, 2019. INDICATION: Female, 73 years old. Ascites. PHYSICIAN: Rigo Britt M.D. TECHNIQUE: The risks, benefits, and alternatives to the procedure were explained to the patient. The specific risks of bleeding, infection, and damage to bowel were detailed and accepted. Witnessed informed consent was obtained. The abdomen was ultrasonographically surveyed. An appropriate pocket of fluid was identified at the right lower quadrant. The skin were cleaned and prepped in the usual sterile fashion. Using ultrasound guidance, the peritoneal cavity was accessed with a 5-Telugu paracentesis needle/catheter system. The trocar was removed. A total of 5450 ml of harsh-colored fluid were removed from the peritoneal cavity. The catheter was removed and a sterile dressing was applied. The procedure was well tolerated. US/Paracentesis with US IMPRESSION: Ultrasound guided paracentesis. Electronically Signed: Rigo Britt, at 12:17 EDT , Service support ,
[2019-01-19 11:23] VITALS: BP 108/35; BP 111/52; BP 116/47; PULSE 67; PULSE 68; RESP 16; O2SAT 100; O2SAT 99
[2019-01-19 11:28] VITALS: BP 104/52; PULSE 67; RESP 16; TEMP 36.4; O2SAT 100; BMI 30.9
[2019-01-19] MEDS: Albumin Human 25% (100 mL) 25 GM/100 ML BAG IV (11:38)
== END ==
LOC: US 10:23 → MEDOUTP 11:20
PROVIDERS: Family Provider Family Medicine; PCP Family Medicine; Referring Provider Internal Medicine Gastroenterology; Visit Provider Internal Medicine Gastroenterology
DX: K74.60 Unspecified cirrhosis of liver (principal); R18.8 Other ascites
CPT/HCPCS: 96365; 96366; 49083; P9047; A4216

== ENCOUNTER → 2019-01-26 10:11 | Outpatient (CLI) | payer MEDICARE, SELFPAY ==
[2018-12-01 10:37] VITALS: BMI 32.1
[2019-01-19 11:28] VITALS: BMI 30.9
--- NOTE | 2019-01-26 10:14 | US_ITS ---
PROCEDURE: Ultrasound guided paracentesis. DATE OF EXAMINATION: January 26, 2019. INDICATION: Female, 73 years old. Ascites. PHYSICIAN: Rigo Britt M.D. TECHNIQUE: The risks, benefits, and alternatives to the procedure were explained to the patient. The specific risks of bleeding, infection, and damage to bowel were detailed and accepted. Witnessed informed consent was obtained. The abdomen was ultrasonographically surveyed. An appropriate pocket of fluid was identified at the right lower quadrant. The skin were cleaned and prepped in the usual sterile fashion. Using ultrasound guidance, the peritoneal cavity was accessed with a 5-Maltese paracentesis needle/catheter system. The trocar was removed. A total of 4950 ml of harsh-colored fluid were removed from the peritoneal cavity. The catheter was removed and a sterile dressing was applied. The procedure was well tolerated. US/Paracentesis with US IMPRESSION: Ultrasound guided paracentesis. Electronically Signed: Rigo Britt, at 13:07 EDT , Service support ,
[2019-01-26 11:32] VITALS: BP 118/62; PULSE 89; RESP 16; TEMP 36.3; O2SAT 100; BMI 31.1
[2019-01-26 11:36] VITALS: BP 120/68; BP 125/50; BP 131/73; BP 154/64; PULSE 92; PULSE 94; PULSE 96; RESP 14; O2SAT 96; O2SAT 98; O2SAT 99
[2019-01-26 12:04] LABS: Hematocrit 29.6 % (37-47); Hemoglobin 9.7 g/dL (12.0-15.0); Mean Corp Hgb Conc 32.8 g/dL (32-36); Mean Corpuscular Hgb 30.9 pg (27.0-32.0); Mean Corpuscular Volume 94.3 fL (81-99); Mean Platelet Vol. 10.1 fl (6.2-12.0); Platelet Count 72 K/mm3 (150-450); RBC Distribution Width CV 14.8 % (11.6-14.6); RBC Distribution Width SD 51.3 fl (35.1-43.9); Red Blood Count 3.14 M/mm3 (4.2-5.4)
[2019-01-26] MEDS: Albumin Human 25% (100 mL) 25 GM/100 ML BAG IV (12:07)
[2019-01-26 12:15] LABS: International Normalized Ratio 1.1; Prothrombin Time (Protime)PT. 13.7 SECONDS (11.7-14.9)
[2019-01-26 12:31] LABS: BUN 69 mg/dL (7-18); BUN/Creat Ratio 32.9 RATIO (10-20); Calcium,Total 10.4 mg/dL (8.5-10.1); Chloride 108 mmol/L (98-107); EST Glomerular Filtration Rate 25 mL/min (>60); Est Glom Filt Rate - Afr Amer 30 mL/min (>60); Estimated Creatinine Clearance 19.15 ml/min; Ferritin 122 ng/mL (8-252); Glucose 179 mg/dL (74-106); Phosphorus 2.9 mg/dL (2.5-4.9); Potassium 5.9 mmol/L (3.5-5.1); Sodium Level 137 mmol/L (136-145)
[2019-01-26 12:32] LABS: PTHIN 319.3 pg/mL (18.4-80.1); Vitamin D,25 Hydroxy 14.3 ng/mL (29.95-100.01)
[2019-01-26 14:35] LABS: Microalbumin,Random Urine 13.3 mg/L (NO RANGE EST.); Microalbumin:Creatinine Ratio 13.6 mg/g CRE (<30 mg/g CRE); Protein, Urine (Random) 16.6 mg/dL (<11.9); Protein:Creat Ratio 170 mg/g CRE (0-200)
[2019-01-26 14:57] LABS: Color, Urine Yellow (Yellow); Glucose, Dipstick Normal (Normal); Ketone-Dipstick Negative (Negative); Leukocyte Esterase-Dipstick 100 /ul (Negative); Nitrite-Dipstick Negative (Negative); Occult Blood-Urine Negative /ul (Negative); Protein-Dipstick Negative (Negative); Specific Gravity, Urine 1.015 (1.002-1.030); Urine Bilirubin Dipstick Negative (Negative); Urine Clarity Clear (Clear); Urine Urobilinogen Normal (Normal)
== END ==
LOC: US 10:12 → MEDOUTP 11:18
PROVIDERS: Family Provider Family Medicine; PCP Family Medicine; Referring Provider Internal Medicine Gastroenterology; Visit Provider Internal Medicine Gastroenterology
DX: K74.60 Unspecified cirrhosis of liver (principal); R18.8 Other ascites; N18.4 Chronic kidney disease, stage 4 (severe)
CPT/HCPCS: 96365; 96366; 36415; 49083; 80069; 81002; 82043; 82306; 82570; 82728; 83970; 84156; 85027; 85610; 85730; P9047

== ENCOUNTER → 2019-02-01 10:19 | Outpatient (CLI) | payer MEDICARE, SELFPAY ==
[2018-12-01 10:37] VITALS: BMI 32.1
[2019-01-26 11:32] VITALS: BMI 31.1
--- NOTE | 2019-02-01 10:21 | US_ITS ---
PROCEDURE: Ultrasound guided paracentesis. DATE OF EXAMINATION: February 01, 2019. INDICATION: Female, 73 years old. Ascites. PHYSICIAN: Rigo Britt M.D. TECHNIQUE: The risks, benefits, and alternatives to the procedure were explained to the patient. The specific risks of bleeding, infection, and damage to bowel were detailed and accepted. Witnessed informed consent was obtained. The abdomen was ultrasonographically surveyed. An appropriate pocket of fluid was identified at the right lower quadrant. The skin were cleaned and prepped in the usual sterile fashion. Using ultrasound guidance, the peritoneal cavity was accessed with a 5-Sami paracentesis needle/catheter system. The trocar was removed. A total of 4100 ml of harsh-colored fluid were removed from the peritoneal cavity. The catheter was removed and a sterile dressing was applied. The procedure was well tolerated. US/Paracentesis with US IMPRESSION: Ultrasound guided paracentesis. Electronically Signed: Rigo Britt, at 12:13 EDT , Service support ,
[2019-02-01 10:33] VITALS: BP 109/52; BP 113/56; BP 120/59; PULSE 90; PULSE 93; PULSE 99; RESP 16; RESP 18; O2SAT 100; O2SAT 98
== END ==
PROVIDERS: Family Provider Family Medicine; PCP Family Medicine; Referring Provider Internal Medicine Gastroenterology; Visit Provider Internal Medicine Gastroenterology
DX: R18.8 Other ascites (principal)
CPT/HCPCS: 49083

== ENCOUNTER → 2019-02-06 13:02 | Outpatient (CLI) | payer MEDICARE, SELFPAY ==
[2019-01-26 11:32] VITALS: BMI 31.1
--- NOTE | 2019-02-06 13:27 | BI_ITS ---
MAMMOGRAPHY - UNILATERAL SCREENING 3-D TOMOSYNTHESIS REASON FOR EXAM: Female, 73 years old. Bilateral Screening 3-D tomosynthesis PERTINENT HISTORY: Personal history of breast cancer, and maternal cousin with breast cancer.. TECHNIQUE: 2-D mammograms and 3-D Tomosynthesis of the left breast (s) were performed. CAD was performed. COMPARISON: 12/20/2017, 11/24/2016, 04/16/2014 FINDINGS: The breast composition is composed of scattered fibroglandular density. Scattered benign calcifications are seen as before. No dense spiculated masses or suspicious microcalcifications are identified. No architectural distortion is identified. There is no skin thickening or retraction. There has been no significant change since the prior study. BI/Bilat Brst Screen Mak Add-On IMPRESSION: No mammographic signs of malignancy. Routine yearly mammograms recommended. ASSESSMENT CATEGORY: BIRADS Category 2: Benign. A letter regarding these results will be sent to the patient by the facility within 30 days. FOLLOW UP RECOMMENDATION: Yearly follow up mammogram recommended. (A) Approximately 10% of breast cancers are not detected by mammography. A normal mammogram should not delay biopsy of a clinically suspicious abnormality. Electronically Signed: Josias Barrett MD at 16:02 EDT Tel [phone], Service support ,
[2019-02-06 13:38] LABS: Albumin, Serum 2.6 g/dL (3.2-5.0); BUN 91 mg/dL (7-18); Calcium,Total 8.9 mg/dL (8.5-10.1); Chloride 110 mmol/L (98-107); Creatinine, Serum 2.22 mg/dL (0.55-1.02); EST Glomerular Filtration Rate 23 mL/min (>60); Est Glom Filt Rate - Afr Amer 28 mL/min (>60); Glucose 297 mg/dL (74-106); Phosphorus 4.5 mg/dL (2.5-4.9); Potassium 3.3 mmol/L (3.5-5.1); Sodium Level 140 mmol/L (136-145)
== END ==
PROVIDERS: Family Provider Family Medicine; PCP Family Medicine; Referring Provider Internal Medicine Nephrology; Visit Provider Family Medicine
DX: N18.4 Chronic kidney disease, stage 4 (severe) (principal); Z12.31 Encounter for screening mammogram for malignant neoplasm of breast; Z85.3 Personal history of malignant neoplasm of breast
CPT/HCPCS: 36592; 77061; 77063; 77067; 80069; A4216; G0279

== ENCOUNTER → 2019-02-09 10:18 | Outpatient (CLI) | payer MEDICARE, SELFPAY ==
[2018-12-01 10:37] VITALS: BMI 32.1
[2019-01-26 11:32] VITALS: BMI 31.1
--- NOTE | 2019-02-09 10:20 | US_ITS ---
PROCEDURE: Ultrasound guided paracentesis. INDICATION: Female, 73 years old. Ascites. INFORMED CONSENT: The risks, benefits, and alternatives to the procedure were explained to the patient. The specific risks of bleeding, infection, and damage to bowel were detailed and accepted. Witnessed informed consent was obtained. TECHNIQUES: The abdomen was ultrasonographically surveyed. An appropriate pocket of fluid was identified at the left lower quadrant. The skin was cleaned and prepped in the usual sterile fashion. Using ultrasound guidance, the peritoneal cavity was accessed with a 5-Kittitian paracentesis needle/catheter system. The trocar was removed. A total of 6000 ml of clear yellowish ascites was removed from the peritoneal cavity. The catheter was removed and a sterile dressing was applied. The procedure was well tolerated. The patient did receive albumin after the procedure. US/Paracentesis with US IMPRESSION: Successful sonographic guided paracentesis with 6000 cc of clear yellowish ascites obtained. Electronically Signed: Josias Barrett MD at 13:37 EDT Tel [phone], Service support ,
[2019-02-09 11:35] VITALS: BP 105/75; BP 111/50; BP 116/52; BP 118/58; PULSE 63; PULSE 64; PULSE 68; PULSE 69; RESP 16; O2SAT 100; O2SAT 97
[2019-02-09 11:59] VITALS: BP 102/58; PULSE 62; RESP 16; TEMP 36.5; O2SAT 100; BMI 31.4
[2019-02-09] MEDS: Albumin Human 25% (100 mL) 25 GM/100 ML BAG IV (11:59)
== END ==
LOC: US 10:18 → MEDOUTP 11:45
PROVIDERS: Family Provider Family Medicine; PCP Family Medicine; Referring Provider Internal Medicine Gastroenterology; Visit Provider Internal Medicine Gastroenterology
DX: K74.60 Unspecified cirrhosis of liver (principal); R18.8 Other ascites
CPT/HCPCS: 96365; 96366; 49083; P9047; A4216

== ENCOUNTER → 2019-02-16 10:20 | Outpatient (CLI) | payer MEDICARE, SELFPAY ==
[2018-12-01 10:37] VITALS: BMI 32.1
[2019-02-09 11:59] VITALS: BMI 31.4
--- NOTE | 2019-02-16 10:22 | US_ITS ---
PROCEDURE: Ultrasound guided paracentesis. DATE OF EXAMINATION: February 16, 2019. INDICATION: Female, 73 years old. Ascites. PHYSICIAN: Rigo Britt M.D. TECHNIQUE: The risks, benefits, and alternatives to the procedure were explained to the patient. The specific risks of bleeding, infection, and damage to bowel were detailed and accepted. Witnessed informed consent was obtained. The abdomen was ultrasonographically surveyed. An appropriate pocket of fluid was identified at the right lower quadrant. The skin were cleaned and prepped in the usual sterile fashion. Using ultrasound guidance, the peritoneal cavity was accessed with a 5-Thai paracentesis needle/catheter system. The trocar was removed. A total of 4750 ml of harsh-colored fluid were removed from the peritoneal cavity. The catheter was removed and a sterile dressing was applied. The procedure was well tolerated. US/Paracentesis with US IMPRESSION: Ultrasound guided paracentesis. Electronically Signed: Rigo Britt, at 13:12 EDT , Service support ,
[2019-02-16 10:35] VITALS: BP 111/37; BP 124/66; BP 137/69; PULSE 72; PULSE 79; PULSE 83; RESP 16; O2SAT 98
== END ==
PROVIDERS: Family Provider Family Medicine; PCP Family Medicine; Referring Provider Internal Medicine Gastroenterology; Visit Provider Internal Medicine Gastroenterology
DX: K74.60 Unspecified cirrhosis of liver (principal)
CPT/HCPCS: 49083

== ENCOUNTER → 2019-02-23 10:22 | Outpatient (CLI) | payer MEDICARE, SELFPAY ==
[2018-12-01 10:37] VITALS: BMI 32.1
[2019-02-09 11:59] VITALS: BMI 31.4
--- NOTE | 2019-02-23 10:26 | US_ITS ---
PROCEDURE: Ultrasound guided paracentesis. DATE OF EXAMINATION: February 23, 2019. INDICATION: Female, 73 years old. Ascites. PHYSICIAN: Rigo Britt M.D. TECHNIQUE: The risks, benefits, and alternatives to the procedure were explained to the patient. The specific risks of bleeding, infection, and damage to bowel were detailed and accepted. Witnessed informed consent was obtained. The abdomen was ultrasonographically surveyed. An appropriate pocket of fluid was identified at the right lower quadrant. The skin were cleaned and prepped in the usual sterile fashion. Using ultrasound guidance, the peritoneal cavity was accessed with a 5-Uruguayan paracentesis needle/catheter system. The trocar was removed. A total of 7000 ml of harsh-colored fluid were removed from the peritoneal cavity. The catheter was removed and a sterile dressing was applied. The procedure was well tolerated. US/Paracentesis with US IMPRESSION: Ultrasound guided paracentesis. Electronically Signed: Rigo Britt, at 12:59 EDT , Service support ,
[2019-02-23 11:32] VITALS: BP 120/67; BP 121/71; BP 161/80; PULSE 74; PULSE 92; PULSE 93; RESP 16; RESP 18; O2SAT 97; O2SAT 98; O2SAT 99
[2019-02-23 11:45] VITALS: BP 104/70; PULSE 93; RESP 18; TEMP 36.2; O2SAT 100; BMI 32.1
[2019-02-23] MEDS: Albumin Human 25% (100 mL) 25 GM/100 ML BAG IV (11:46)
[2019-02-23 12:20] LABS: International Normalized Ratio 1.2; Prothrombin Time (Protime)PT. 14.5 SECONDS (11.7-14.9)
[2019-02-23 12:21] LABS: Partial Thromboplast Time 41.2 Seconds (24.1-36.2)
[2019-02-23] MEDS: Albumin Human 25% (50 mL) 12.5 GM/50 ML IV.SOLN IV (13:15)
[2019-02-23 14:53] LABS: Anion Gap 5 (5-15); BUN 89 mg/dL (7-18); BUN/Creat Ratio 36.5 RATIO (10-20); Calcium,Total 9.3 mg/dL (8.5-10.1); Chloride 106 mmol/L (98-107); Creatinine, Serum 2.44 mg/dL (0.55-1.02); EST Glomerular Filtration Rate 21 mL/min (>60); Est Glom Filt Rate - Afr Amer 25 mL/min (>60); Estimated Creatinine Clearance 16.48 ml/min; Ferritin 79 ng/mL (8-252); Glucose 431 mg/dL (74-106); Potassium 4.9 mmol/L (3.5-5.1); Sodium Level 136 mmol/L (136-145)
== END ==
LOC: US 10:22 → MEDOUTP 11:30
PROVIDERS: Family Provider Family Medicine; PCP Family Medicine; Referring Provider Internal Medicine Gastroenterology; Visit Provider Internal Medicine Gastroenterology
DX: K74.60 Unspecified cirrhosis of liver (principal)
CPT/HCPCS: 96365; 96366 ×2; 36591; 49083; 80048; 82728; 85610; 85730; P9047; A4216

== ENCOUNTER → 2019-03-02 10:26 | Outpatient (CLI) | payer MEDICARE, SELFPAY ==
[2018-12-01 10:37] VITALS: BMI 32.1
[2019-02-23 11:45] VITALS: BMI 32.1
--- NOTE | 2019-03-02 10:27 | US_ITS ---
PROCEDURE: Ultrasound guided paracentesis. DATE OF EXAMINATION: March 02, 2019. INDICATION: Female, 73 years old. Ascites. PHYSICIAN: Rigo Britt M.D. TECHNIQUE: The risks, benefits, and alternatives to the procedure were explained to the patient. The specific risks of bleeding, infection, and damage to bowel were detailed and accepted. Witnessed informed consent was obtained. The abdomen was ultrasonographically surveyed. An appropriate pocket of fluid was identified at the right lower quadrant. The skin were cleaned and prepped in the usual sterile fashion. Using ultrasound guidance, the peritoneal cavity was accessed with a 5-St Helenian paracentesis needle/catheter system. The trocar was removed. A total of 3750 ml of harsh-colored fluid were removed from the peritoneal cavity. The catheter was removed and a sterile dressing was applied. The procedure was well tolerated. US/Paracentesis with US IMPRESSION: Ultrasound guided paracentesis. Electronically Signed: Rigo Britt, at 11:38 EDT , Service support ,
[2019-03-02 10:41] VITALS: BP 105/49; BP 112/51; BP 120/69; PULSE 74; PULSE 75; PULSE 78; RESP 16; RESP 18; O2SAT 97; O2SAT 98
[2019-03-02 15:22] LABS: Anion Gap 6 (5-15); BUN 105 mg/dL (7-18); BUN/Creat Ratio 40.5 RATIO (10-20); Calcium,Total 8.5 mg/dL (8.5-10.1); Chloride 109 mmol/L (98-107); Creatinine, Serum 2.59 mg/dL (0.55-1.02); EST Glomerular Filtration Rate 19 mL/min (>60); Est Glom Filt Rate - Afr Amer 23 mL/min (>60); Glucose 371 mg/dL (74-106); Potassium 4.6 mmol/L (3.5-5.1); Sodium Level 139 mmol/L (136-145)
== END ==
LOC: US 10:26 → MEDOUTP 11:21
PROVIDERS: Family Provider Family Medicine; PCP Family Medicine; Referring Provider Family Medicine; Visit Provider Internal Medicine Gastroenterology
DX: K74.60 Unspecified cirrhosis of liver (principal)
CPT/HCPCS: 36592; 49083; 80048; 82140; A4216

== ENCOUNTER → 2019-03-09 10:27 | Outpatient (CLI) | payer MEDICARE, SELFPAY ==
[2018-12-01 10:37] VITALS: BMI 32.1
[2019-02-23 11:45] VITALS: BMI 32.1
--- NOTE | 2019-03-09 10:28 | US_ITS ---
PROCEDURE: Ultrasound guided paracentesis. DATE OF EXAMINATION: March 09, 2019. INDICATION: Female, 73 years old. Ascites. PHYSICIAN: Rigo Britt M.D. TECHNIQUE: The risks, benefits, and alternatives to the procedure were explained to the patient. The specific risks of bleeding, infection, and damage to bowel were detailed and accepted. Witnessed informed consent was obtained. The abdomen was ultrasonographically surveyed. An appropriate pocket of fluid was identified at the right lower quadrant. The skin were cleaned and prepped in the usual sterile fashion. Using ultrasound guidance, the peritoneal cavity was accessed with a 5-Bahamian paracentesis needle/catheter system. The trocar was removed. A total of 4600 ml of harsh-colored fluid were removed from the peritoneal cavity. The catheter was removed and a sterile dressing was applied. The procedure was well tolerated. US/Paracentesis with US IMPRESSION: Ultrasound guided paracentesis. Electronically Signed: Rigo Britt, at 12:40 EDT , Service support ,
[2019-03-09 10:55] VITALS: BP 116/49; BP 117/52; PULSE 67; RESP 18; O2SAT 100
== END ==
PROVIDERS: Family Provider Family Medicine; PCP Family Medicine; Referring Provider Internal Medicine Gastroenterology; Visit Provider Internal Medicine Gastroenterology
DX: K74.60 Unspecified cirrhosis of liver (principal)
CPT/HCPCS: 49083

== ENCOUNTER → 2019-03-16 10:15 | Outpatient (CLI) | payer MEDICARE, SELFPAY ==
[2018-12-01 10:37] VITALS: BMI 32.1
[2019-02-23 11:45] VITALS: BMI 32.1
--- NOTE | 2019-03-16 10:17 | US_ITS ---
PROCEDURE: Ultrasound guided paracentesis. DATE OF EXAMINATION: March 16, 2019. INDICATION: Female, 73 years old. Ascites. PHYSICIAN: Rigo Britt M.D. TECHNIQUE: The risks, benefits, and alternatives to the procedure were explained to the patient. The specific risks of bleeding, infection, and damage to bowel were detailed and accepted. Witnessed informed consent was obtained. The abdomen was ultrasonographically surveyed. An appropriate pocket of fluid was identified at the right lower quadrant. The skin were cleaned and prepped in the usual sterile fashion. Using ultrasound guidance, the peritoneal cavity was accessed with a 5-Russian paracentesis needle/catheter system. The trocar was removed. A total of 5250 ml of harsh-colored fluid were removed from the peritoneal cavity. The catheter was removed and a sterile dressing was applied. The procedure was well tolerated. US/Paracentesis with US IMPRESSION: Ultrasound guided paracentesis. Electronically Signed: Rigo Britt, at 12:45 EDT , Service support ,
[2019-03-16 10:38] VITALS: BP 115/58; BP 127/64; BP 143/72; BP 149/51; PULSE 63; PULSE 65; PULSE 70; PULSE 73; RESP 16; RESP 18; O2SAT 100; O2SAT 96; O2SAT 98
[2019-03-16 11:50] VITALS: BP 92/48; PULSE 66; RESP 16; TEMP 36.6; O2SAT 96; BMI 32.0
[2019-03-16] MEDS: Albumin Human 25% (100 mL) 25 GM/100 ML BAG IV (12:16)
[2019-03-16 12:31] LABS: International Normalized Ratio 1.2; Prothrombin Time (Protime)PT. 14.9 SECONDS (11.7-14.9)
[2019-03-16 12:32] LABS: Partial Thromboplast Time 29.5 Seconds (24.1-36.2)
[2019-03-16 12:39] LABS: ALB/GLOB Ratio 0.8 RATIO (0.9-2.4); AST(SGOT) 26 U/L (15-37); Alanine Aminotransfer ALT/SGPT 34 U/L (13-56); Albumin, Serum 2.5 g/dL (3.2-5.0); Alkaline Phosphatase 136 U/L (45-117); Anion Gap 6 (5-15); BUN 92 mg/dL (7-18); BUN/Creat Ratio 40.5 RATIO (10-20); Calcium,Total 9.5 mg/dL (8.5-10.1); Chloride 111 mmol/L (98-107); Creatinine, Serum 2.27 mg/dL (0.55-1.02); EST Glomerular Filtration Rate 23 mL/min (>60); Est Glom Filt Rate - Afr Amer 27 mL/min (>60); Estimated Creatinine Clearance 17.72 ml/min; Ferritin 68 ng/mL (8-252); Globulin 3.3 g/dL (2.2-4.2); Glucose 210 mg/dL (74-106); Protein, Total 5.8 g/dL (6.4-8.2); Sodium Level 143 mmol/L (136-145)
== END ==
LOC: US 10:15 → MEDOUTP 11:23
PROVIDERS: Internal Medicine Hematology & Oncology; Family Provider Family Medicine; PCP Family Medicine; Referring Provider Internal Medicine Gastroenterology; Visit Provider Internal Medicine Gastroenterology
DX: K74.60 Unspecified cirrhosis of liver (principal); R18.8 Other ascites
CPT/HCPCS: 96365; 96366; 36591; 49083; 80053; 82728; 85610; 85730; P9047; A4216

== ENCOUNTER → 2019-03-23 10:24 | Outpatient (CLI) | payer MEDICARE, SELFPAY ==
[2019-01-26 11:32] VITALS: BMI 31.1
[2019-03-16 11:50] VITALS: BMI 32.0
--- NOTE | 2019-03-23 10:25 | US_ITS ---
PROCEDURE: Ultrasound guided paracentesis. DATE OF EXAMINATION: March 23, 2019.. INDICATION: Female, 73 years old. Ascites. PHYSICIAN: Rigo Britt M.D. TECHNIQUE: The risks, benefits, and alternatives to the procedure were explained to the patient. The specific risks of bleeding, infection, and damage to bowel were detailed and accepted. Witnessed informed consent was obtained. The abdomen was ultrasonographically surveyed. An appropriate pocket of fluid was identified at the right lower quadrant. The skin were cleaned and prepped in the usual sterile fashion. Using ultrasound guidance, the peritoneal cavity was accessed with a 5-Cook Islander paracentesis needle/catheter system. The trocar was removed. A total of 6800 ml of harsh-colored fluid were removed from the peritoneal cavity. The catheter was removed and a sterile dressing was applied. The procedure was well tolerated. US/Paracentesis with US IMPRESSION: Ultrasound guided paracentesis. Electronically Signed: Rigo Britt, at 13:09 EDT , Service support ,
[2019-03-23 10:29] VITALS: BP 128/69; BP 140/65; BP 140/68; BP 156/77; PULSE 100; PULSE 108; RESP 16; RESP 18; O2SAT 100
[2019-03-23 11:30] VITALS: BP 109/45; PULSE 108; RESP 16; TEMP 36.5; O2SAT 100; BMI 32.1
[2019-03-23] MEDS: Albumin Human 25% (100 mL) 25 GM/100 ML BAG IV (12:55)
== END ==
LOC: US 10:24 → MEDOUTP 11:23
PROVIDERS: Family Provider Family Medicine; PCP Family Medicine; Referring Provider Internal Medicine Gastroenterology; Visit Provider Internal Medicine Gastroenterology
DX: K74.60 Unspecified cirrhosis of liver (principal); R18.8 Other ascites
CPT/HCPCS: 96365; 96366; 49083; P9047; A4216

== ENCOUNTER → 2019-03-30 10:22 | Outpatient (CLI) | payer MEDICARE, SELFPAY ==
[2019-01-26 11:32] VITALS: BMI 31.1
[2019-03-23 11:30] VITALS: BMI 32.1
--- NOTE | 2019-03-30 10:24 | US_ITS ---
PROCEDURE: ULTRASOUND GUIDED PARACENTESIS CLINICAL HISTORY: Female, 73 years old. Recurrent ascites CONSENT: Time-Out Called: Yes. Consent form signed: Yes. PT-PTT Levels Checked: Yes. SEDATION: None TECHNIQUE: A large pocket of ascites was identified. This is identified by ultrasound and bilateral ultrasound a skin site was marked. The skin was sterilely prepped and draped in usual fashion. A 5 Swedish Yueh catheter was inserted 5 cm into the ascites FINDINGS: FLUID PRE-PROCEDURE After suction was hooked up to the UA catheter 6750 cc of ascites was aspirated from the abdominal cavity and the ascites was almost completely evacuated. The patient was then sent to transfusion for albumin injection IV. US/Paracentesis with US IMPRESSION: 6750 cc of ascites was aspirated during this therapeutic paracentesis. Electronically Signed: Miko Ernst, at 15:54 EDT Tel , Service support ,
[2019-03-30 11:45] VITALS: BP 115/48; BP 130/63; BP 137/67; PULSE 67; PULSE 71; RESP 14; RESP 16; O2SAT 100
[2019-03-30 11:58] VITALS: BP 97/47; PULSE 62; RESP 16; TEMP 36.3; O2SAT 97; BMI 32.1
[2019-03-30] MEDS: Albumin Human 25% (100 mL) 25 GM/100 ML BAG IV (12:11)
[2019-03-30] MEDS: Albumin Human 25% (50 mL) 12.5 GM/50 ML IV.SOLN IV (13:33)
== END ==
LOC: US 10:22 → MEDOUTP 11:38
PROVIDERS: Family Provider Family Medicine; PCP Family Medicine; Referring Provider Internal Medicine Gastroenterology; Visit Provider Internal Medicine Gastroenterology
DX: K74.60 Unspecified cirrhosis of liver (principal); R18.8 Other ascites
CPT/HCPCS: 96365; 96366; 49083; P9047; A4216

== ENCOUNTER → 2019-04-06 10:20 | Outpatient (CLI) | payer MEDICARE, SELFPAY ==
[2019-01-26 11:32] VITALS: BMI 31.1
[2019-03-30 11:58] VITALS: BMI 32.1
--- NOTE | 2019-04-06 10:22 | US_ITS ---
PROCEDURE: Ultrasound guided paracentesis. DATE OF EXAMINATION: April 06, 2019. INDICATION: Female, 73 years old. Ascites. PHYSICIAN: Rigo Britt M.D. TECHNIQUE: The risks, benefits, and alternatives to the procedure were explained to the patient. The specific risks of bleeding, infection, and damage to bowel were detailed and accepted. Witnessed informed consent was obtained. The abdomen was ultrasonographically surveyed. An appropriate pocket of fluid was identified at the right lower quadrant. The skin were cleaned and prepped in the usual sterile fashion. Using ultrasound guidance, the peritoneal cavity was accessed with a 5-British paracentesis needle/catheter system. The trocar was removed. A total of 5750 ml of harsh-colored fluid were removed from the peritoneal cavity. The catheter was removed and a sterile dressing was applied. The procedure was well tolerated. US/Paracentesis with US IMPRESSION: Ultrasound guided paracentesis. Electronically Signed: Rigo Britt, at 11:32 EDT , Service support ,
[2019-04-06 10:45] VITALS: BP 126/54; BP 131/45; BP 134/55; PULSE 77; PULSE 88; PULSE 95; RESP 16; RESP 18; O2SAT 100; O2SAT 97; O2SAT 98
[2019-04-06 11:33] VITALS: BP 105/59; PULSE 80; RESP 16; TEMP 36.5; O2SAT 100; BMI 30.7
[2019-04-06] MEDS: Albumin Human 25% (100 mL) 25 GM/100 ML BAG IV (12:08)
[2019-04-06 13:45] VITALS: BP 110/66; PULSE 79; TEMP 36.4; O2SAT 100
== END ==
LOC: US 10:21 → MEDOUTP 11:22
PROVIDERS: Family Provider Family Medicine; PCP Family Medicine; Referring Provider Internal Medicine Gastroenterology; Visit Provider Internal Medicine Gastroenterology
DX: K74.60 Unspecified cirrhosis of liver (principal); R18.8 Other ascites
CPT/HCPCS: 96365; 96366; 49083; P9047; A4216

== ENCOUNTER → 2019-04-13 10:16 | Outpatient (CLI) | payer MEDICARE, SELFPAY ==
[2019-01-26 11:32] VITALS: BMI 31.1
[2019-04-06 11:33] VITALS: BMI 30.7
--- NOTE | 2019-04-13 10:20 | US_ITS ---
PROCEDURE: Ultrasound guided paracentesis. DATE OF EXAMINATION: April 13, 2019.. INDICATION: Female, 73 years old. Ascites. PHYSICIAN: Rigo Britt M.D. TECHNIQUE: The risks, benefits, and alternatives to the procedure were explained to the patient. The specific risks of bleeding, infection, and damage to bowel were detailed and accepted. Witnessed informed consent was obtained. The abdomen was ultrasonographically surveyed. An appropriate pocket of fluid was identified at the right lower quadrant. The skin were cleaned and prepped in the usual sterile fashion. Using ultrasound guidance, the peritoneal cavity was accessed with a 5-Nigerian paracentesis needle/catheter system. The trocar was removed. A total of 3400 ml of harsh-colored fluid were removed from the peritoneal cavity. The catheter was removed and a sterile dressing was applied. The procedure was well tolerated. US/Paracentesis with US IMPRESSION: Ultrasound guided paracentesis. Electronically Signed: Rigo Britt, at 14:11 EDT , Service support ,
[2019-04-13 10:39] VITALS: BP 139/65; BP 161/76; BP 169/73; PULSE 101; PULSE 103; PULSE 93; RESP 16; RESP 18; O2SAT 100; O2SAT 98; O2SAT 99
[2019-04-13 11:48] LABS: Absolute Lymphocyte Count 0.38 X10^3/uL (0.83-4.51); Absolute Neutrophil Count 1.9 X10^3/uL (2.0-7.7); Basophil# 0.01 X10^3/uL; Basophil% 0.4 % (0-1); Eosinophil# 0.24 X10^3/uL; Eosinophils% 8.8 % (0-5); Hematocrit 25.4 % (37-47); Lymphocyte # 0.38 X10^3/ul (4.0); Lymphocyte % 13.9 % (19-41); Mean Corp Hgb Conc 31.5 g/dL (32-36); Mean Corpuscular Hgb 30.2 pg (27.0-32.0); Mean Corpuscular Volume 95.8 fL (81-99); Mean Platelet Vol. 9.6 fl (6.2-12.0); Monocyte# 0.17 X10^3/uL; Monocyte% 6.2 % (0-10); NRBC Flagged by Analyzer 0 % (0-5); Neutrophil # 1.93 X10^3/uL (2.7-7.7); Neutrophil % 70.3 % (47-70); POSITIVE DIFFERENTIAL YES; Platelet Count 64 K/mm3 (150-450); RBC Distribution Width CV 15.9 % (11.6-14.6); RBC Distribution Width SD 55.4 fl (35.1-43.9); Red Blood Count 2.65 M/mm3 (4.2-5.4); White Blood Count 2.7 K/mm3 (4.4-11.0)
[2019-04-13 11:50] LABS: Differential Indicated SCAN CRITERIA MET
[2019-04-13 11:50] LABS: Mucous, Urine 0 SEEN /hpf (<or=2+); Red Blood Cells-Urine 0 SEEN /hpf (0-5)
[2019-04-13 12:03] LABS: Color, Urine Yellow (Yellow); Glucose, Dipstick Normal (Normal); Ketone-Dipstick Negative (Negative); Leukocyte Esterase-Dipstick 500 /ul (Negative); Nitrite-Dipstick Negative (Negative); Occult Blood-Urine Negative /ul (Negative); Protein-Dipstick Negative (Negative); Urine Bilirubin Dipstick Negative (Negative); Urine Clarity Sl. Cloudy (Clear); Urine Urobilinogen Normal (Normal)
[2019-04-13 12:04] LABS: International Normalized Ratio 1.2; Prothrombin Time (Protime)PT. 14.8 SECONDS (11.7-14.9)
[2019-04-13 12:05] LABS: Partial Thromboplast Time 34.7 Seconds (24.1-36.2)
[2019-04-13 12:10] LABS: PTHIN 533.3 pg/mL (18.4-80.1)
[2019-04-13 12:12] LABS: Microalbumin,Random Urine 23.3 mg/L (NO RANGE EST.); Microalbumin:Creatinine Ratio 18.9 mg/g CRE (<30 mg/g CRE); Protein, Urine (Random) 20.4 mg/dL (<11.9); Protein:Creat Ratio 166 mg/g CRE (0-200)
[2019-04-13 12:13] LABS: Bacteria 1+ /hpf (None Seen); Squamous Epithelial Cells - UA 0-5 SEEN /hpf (5-10); White Blood Cells 25-50 SEEN /hpf (0-5)
[2019-04-13 13:02] LABS: BUN 75 mg/dL (7-18); BUN/Creat Ratio 34.7 RATIO (10-20); Chloride 114 mmol/L (98-107); Cholesterol 108 mg/dL (200); Creatinine, Serum 2.16 mg/dL (0.55-1.02); EST Glomerular Filtration Rate 24 mL/min (>60); Est Glom Filt Rate - Afr Amer 29 mL/min (>60); Ferritin 48 ng/mL (8-252); Glucose 205 mg/dL (74-106); High Density Lipoprotein 31 mg/dL; Iron 69 ug/dL (50-170); Iron Binding Capacity,Total 262 ug/dL (250-450); Potassium 6.6 mmol/L (3.5-5.1); Sodium Level 139 mmol/L (136-145); Triglycerides 73 mg/dL; Very Low Density Lipoprotein 15 mg/dL (5-40)
[2019-04-14 11:48] LABS: Pathologist Review Reviewed
== END ==
PROVIDERS: Family Provider Family Medicine; PCP Family Medicine; Referring Provider Family Medicine; Visit Provider Family Medicine
DX: K74.60 Unspecified cirrhosis of liver (principal); R18.8 Other ascites; D50.8 Other iron deficiency anemias; E11.22 Type 2 diabetes mellitus with diabetic chronic kidney disease; N18.4 Chronic kidney disease, stage 4 (severe)
CPT/HCPCS: 36591; 49083; 80061; 80069; 81001; 82043; 82306; 82570; 82728; 83540; 83550; 83970; 84156; 85025; 85610; 85730; A4216

== ENCOUNTER 2019-04-13 15:40 | Observation (INO) | payer MEDICARE, SELFPAY ==
[2019-04-06 11:33] VITALS: BMI 30.7
[2019-04-13 15:42] VITALS: BP 117/60; PULSE 114; RESP 18; TEMP 37.2; O2SAT 100; BMI 29.4
--- NOTE | 2019-04-13 18:17 | EKG12_ITS ---
Test Reason : ABD LABS Blood Pressure : / mmHG Vent. Rate : 093 BPM Atrial Rate : 093 BPM P-R Int : 152 ms QRS Dur : 078 ms QT Int : 338 ms P-R-T Axes : 049 007 016 degrees QTc Int : 420 ms Normal sinus rhythm Normal ECG Confirmed by NATALY SHAW, EMILY ([id number]), fashion editor MARLEY ASHFORD ([id number]) on 04/25/2019 9:07:13 AM Referred By: Arie Rosas Confirmed By:EMILY INGRAM MD
[2019-04-13 18:30] LABS: Absolute Lymphocyte Count 0.34 X10^3/uL (0.83-4.51); Absolute Neutrophil Count 1.7 X10^3/uL (2.0-7.7); Basophil# 0.01 X10^3/uL; Basophil% 0.4 % (0-1); Eosinophil# 0.16 X10^3/uL; Eosinophils% 6.7 % (0-5); Hematocrit 24.2 % (37-47); Hemoglobin 7.6 g/dL (12.0-15.0); Lymphocyte # 0.34 X10^3/ul (4.0); Lymphocyte % 14.2 % (19-41); Mean Corp Hgb Conc 31.4 g/dL (32-36); Mean Corpuscular Hgb 30.5 pg (27.0-32.0); Mean Corpuscular Volume 97.2 fL (81-99); Mean Platelet Vol. 10.2 fl (6.2-12.0); Monocyte# 0.21 X10^3/uL; Monocyte% 8.8 % (0-10); NRBC Flagged by Analyzer 0 % (0-5); Neutrophil # 1.65 X10^3/uL (2.7-7.7); Neutrophil % 69.1 % (47-70); POSITIVE DIFFERENTIAL YES; Platelet Count 65 K/mm3 (150-450); RBC Distribution Width SD 56.3 fl (35.1-43.9); Red Blood Count 2.49 M/mm3 (4.2-5.4); White Blood Count 2.4 K/mm3 (4.4-11.0)
[2019-04-13 18:36] VITALS: PULSE 98; RESP 18
[2019-04-13] MEDS: 0.9% Normal Saline 1,000 ML 150 ML IV (18:47)
[2019-04-13 18:49] LABS: Anion Gap 6 (5-15); BUN 79 mg/dL (7-18); BUN/Creat Ratio 35.3 RATIO (10-20); Calcium,Total 9.9 mg/dL (8.5-10.1); Chloride 114 mmol/L (98-107); Creatinine, Serum 2.24 mg/dL (0.55-1.02); EST Glomerular Filtration Rate 23 mL/min (>60); Est Glom Filt Rate - Afr Amer 28 mL/min (>60); Estimated Creatinine Clearance 17.95 ml/min; Glucose 252 mg/dL (74-106); Potassium 6.2 mmol/L (3.5-5.1); Sodium Level 140 mmol/L (136-145)
[2019-04-13 18:51] LABS: Differential Indicated SCAN CRITERIA MET
--- NOTE | 2019-04-13 19:07 | HP.PCM_ITS ---
Problem List (1) Hyperkalemia Status: Acute (2) Ascites Status: Chronic (3) Pancytopenia Status: Chronic (4) Encounter for adjustment or management of vascular access device Status: Inactive (5) CKD (chronic kidney disease) stage 4, GFR 15-29 ml/min Status: Chronic History of Present Illness Date of Admission: 04/13/19 Chief Complaint: abnormal lab The patient is a 73 year old F with a significant history of CKD stage IV; GUEVARA cirrhosis who gets paracentesis every continue because of outpatient abnormal lab results. Patient had thoracentesis on the same day of presentation. She then went on to get some routine labs previously ordered. Because her potassium returned elevated at 6.6 her direct response consultant's office called patient and instructed her to come to the emergency department. Past Medical History Past Medical History (Chronic Problems): Chronic Problems (Last Reviewed 04/14/19 @ 04:51 by Arie Rosas MD) Venous insufficiency (chronic) (peripheral) (Chronic) History of breast cancer (Chronic) Swelling of lower extremity (Chronic) Dependent edema (Chronic) Ascites (Chronic) Chronic kidney disease (CKD) (Chronic) CKD (chronic kidney disease) stage 4, GFR 15-29 ml/min (Chronic) Pancytopenia (Chronic) TIA (transient ischemic attack) (Chronic) DM2 (diabetes mellitus, type 2) (Chronic) Benign essential HTN (Chronic) Medical History: Medical History (Last Reviewed 04/14/19 @ 04:51 by Arie Rosas MD) Venous insufficiency (chronic) (peripheral) (Chronic) I87.2 History of breast cancer (Chronic) Z85.3 Ascites (Chronic) R18.8 Abdominal distension (Inactive) R14.0 Hyperkalemia (Acute) E87.5 CKD (chronic kidney disease) stage 4, GFR 15-29 ml/min (Chronic) N18.4 TIA (transient ischemic attack) (Chronic) DM2 (diabetes mellitus, type 2) (Chronic) E11.9 Benign essential HTN (Chronic) I10 Allergies clarithromycin [From Biaxin] Allergy (Verified 04/13/19 15:42) Unknown iodine Allergy (Verified 04/13/19 15:42) Unknown Home Medications: Ambulatory Orders Medication Instructions Recorded Atenolol [Tenormin (beta geraldine)] 50 mg PO BID 08/08/13 Insulin Lispro [Humalog KwikPen] See Protocol SQ TID 04/15/17 Furosemide [Lasix] 40 mg PO QODAY 01/22/18 Insulin Glargine,Hum.rec.anlog 35 unit SQ QHS 08/11/18 [Lantus] Cholestyramine/Aspartame 4 g PO DAILY 04/13/19 [Prevalite Packet] Surgical History: Surgical History (Last Reviewed 04/14/19 @ 04:51 by Arie Rosas MD) History of appendectomy Z90.49 History of cataract extraction Z98.49 History of colonoscopy Z98.890 History of extraction of renal calculus Z98.890, Z87.442 History of right mastectomy Z90.11 history port insertion Surgical History: mastectomy, - - Patient has had a right mastectomy and appendectomy. She is a Ab0. Psychiatric History: No pertinent psych hx Lives: Alone Smoking Status: Never smoker Alcohol: None - *Family History Sibling Family History: Family History (Last Reviewed 04/14/19 @ 04:52 by Arie Rosas MD) Father CHF (congestive heart failure) Heart disease Mother CVA (cerebral vascular accident) History Items: Cancer, - Review of Systems Constitutional: Denies: Chills, Fever, Weight Change HEENT: Denies: Head Aches, Sinus Congestion, Sinus Drainage Cardiovascular: Denies: Chest Pain, Palpitations Respiratory: Denies: Cough, Shortness of breath at rest, Sputum production Gastrointestinal: Denies: Abdominal Pain, Nausea, Vomiting Genitourinary: Denies: Dysuria Musculoskeletal: Denies: Joint Pain, Joint Tenderness Skin: Denies: Rash, Wounds Neurological: Denies: Numbness, Tingling, Focal weakness Psychiatric: Denies: Anxiety, Depression, Homicidal Ideations, Suicidal Ideations Hematologic/ Lymphatic: Denies: Easy Bruising, Easy Bleeding VTE Information - Inpt Only VTE Present on Admission: No VTE Mechan Device Prophylaxis: SCD's VTE Pharm Prophylaxis ordered?: No - Physical Exam Vitals/I&O's: Vital Signs Temp Pulse Resp BP Pulse Ox 98.9 F 98 18 117/60 100 04/13/19 15:42 04/13/19 18:36 04/13/19 18:36 04/13/19 15:42 04/13/19 15:42 Oxygen Delivery Method Room Air Weight: 73.028 kg Body Mass Index (BMI) 29.4 General: Alert, Oriented x3, Cooperative HEENT: Atraumatic, PERRLA, EOMI, Normocephalic Neck: Supple, No JVD, Negative Carotid Bruits Lungs: Clear to auscultation, Normal air movement Cardiovascular: Regular rate, Murmur - chronic Abdomen: Bowel Sounds Present, Soft, Non Tender Extremities: No edema, Capillary Refill Less than 3 Seconds Skin: No rashes, No breakdown Musculoskeletal: No Tenderness to Palpation of Joints or Extremities Neurological: Cranial nerves II-XII grossly intact Psych/Mental Status: Normal Affect, Appropriate Laboratory Results 04/13/19 17:30: WBC 2.4 L, RBC 2.49 L, Hgb 7.6 L, Hct 24.2 L, MCV 97.2, MCH 30.5, MCHC 31.4 L, RDW Std Deviation 56.3 H, RDW Coeff of Mary Alice 16.0 H, Plt Count 65 L, MPV 10.2, Immature Gran % (Auto) 0.800, Neut % (Auto) 69.1, Lymph % (Auto) 14.2 L, [place] % (Auto) 8.8, Eos % (Auto) 6.7 H, Baso % (Auto) 0.4, Absolute Neuts (auto) 1.7 L, Absolute Lymphs (auto) 0.34 L, Nucleated RBC % 0 04/13/19 17:30: Sodium 140, Potassium 6.2 H*, Chloride 114 H, Carbon Dioxide 20.0 L, Anion Gap 6, BUN 79 H, Creatinine 2.24 H, Estim Creat Clear Calc 17.95, Est GFR (MDRD) Af Amer 28 L, Est GFR (MDRD) Non-Af 23 L, BUN/Creatinine Ratio 35.3 H, Glucose 252 H, Calcium 9.9 Current Medications Sodium Chloride () 1,000 mls @ 150 mls/hr IV .[id number] [facility] Last Admin: 04/13/19 18:47 Dose: 150 mls/hr Documented by: Assessment/Plan All Active Problems (Last Reviewed 04/14/19 @ 04:51 by Arie Rosas MD) Hyperkalemia (Acute) Hyperkalemia (Acute) The patient is a 73 year old F with a significant history of GUEVARA cirrhosis who gets paracentesis every presented because of hyperkalemia on outpatient lab. Hyperkalemia Potassium prior to coming to the hospital was 6.6. At the emergency department her potassium was 6.2. There were no acute EKG changes. At the emergency department patient was given calcium gluconate; insulin with dextrose; bicarbonate; Kayexalate and IV fluids. Will order MiraLAX. We will repeat potassium level. Continue IV fluids at the reduced rate. Trend potassium. Cirrhosis of ascites Patient had paracentesis same day of presentation. Careful use of IV fluids. Resume home Lasix. Diabetes mellitus On presentation her blood glucose was not within goal. Of note patient received insulin with dextrose because of hyperkalemia. De-escalate home long-acting insulin. Correction scale insulin continued. Hypertension On presentation her blood pressure was within goal atenolol continued. Parameters for blood pressure place. CKD stage IV Patient follow-up with Dr. Rowland Her creatinine function is stable. Pancytopenia Chronic DVT prophylaxis SCD. No chemical thromboprophylaxis because of thrombocytopenia Code Visit OBSV E&M: 28064 Initial observation care L3
[2019-04-13 19:16] LABS: Anisocytosis 1+; Hypochromasia 1+; Macrocytosis RARE; Ovalocyte RARE; Platelet Estimate MOD DEC (ADEQ)
--- NOTE | 2019-04-13 19:26 | ED.VISSUMM ---
- ER Visit Summary Date of Service: 04/13/19 Chief Complaint: [Hyperkalemia] History of Present Illness: The patient is a 73 F [presents to the emergency department with complaint of elevated potassium. Patient states that her animal hospital clerk did blood work today and called her and told her to come to the ER because her potassium was high. Patient had 2 other episodes of this. Patient is not on dialysis. Patient does have a history of diabetes, hypertension, ascites, chronic kidney disease, and GUEVARA. Patient states that she had a paracentesis this morning.] She denies any chest pain or palpitations. She denies any shortness of breath. Physical Examination: [HEENT-PERRLA, EOMI. Cranial nerves II through XII grossly intact. TMs clear. Mucous membranes moist. No adenopathy. Cardiovascular-regular rate and rhythm without murmur or ectopy Lungs-clear to auscultation, chest wall stable without crepitus or subcu emphysema Abdomen-normoactive bowel sounds, soft, nontender, no rebound or rigidity, no peritoneal signs. Extremities-intact ?4, normal range of motion, normal pulses, atraumatic] Test Results: [EKG obtained arrival shows sinus rhythm with a ventricular rate of 93 bpm with no acute ST segment changes. There was no peaked T waves or QTC prolongation.] Patient CBC with differential showed a pancytopenia with a white blood cell count 2.4, hemoglobin 7.6, hematocrit 24, platelets 65. Chemistries unremarkable other than an elevated potassium of 6.2. BUN was 79 and creatinine 2.24. Emergency Department Course and Treatment: [She was medicated with calcium chloride as well as sodium bicarb as well as insulin and dextrose. Patient was given Kayexalate.] Treatment Plan: [Admit] Disposition: [Admit] Impression: [Hyperkalemia] This note was generated with [employer] dictation software. It may contain incorrect words, spelling, and punctuation that were not noted in review of the chart prior to signing ED Disposition - Plan for ED Patient: Referrals: Nicola Bay MD [Primary Care Provider] -
[2019-04-13] MEDS: Sodium Polystyrene Sulfonate 15 GM/60 ML UDC 30 GM PO (19:27)
[2019-04-13] MEDS: Dextrose 50%-Water 25 GM/50 ML DISP.SYRIN IV (19:27)
[2019-04-13] MEDS: Insulin Lispro 100 UNIT/ML INSULN.PEN SC ×2 (19:28→21:37)
[2019-04-13] MEDS: Calcium Chloride 1 GM/10 ML Syringe IV (19:28)
[2019-04-13 19:46] VITALS: BMI 29.4
[2019-04-13] MEDS: Sodium Bicarbonate 8.4% 50 ML Syringe 50 MEQ IV (20:00)
[2019-04-13 20:04] VITALS: PULSE 99; RESP 14
[2019-04-13 20:24] VITALS: BMI 29.2
[2019-04-13 20:30] VITALS: BP 133/54; PULSE 106; RESP 16; TEMP 36.6; O2SAT 100
[2019-04-13 20:45] VITALS: PULSE 108; BMI 29.3
[2019-04-13] MEDS: Polyethylene Glycol 3350 17 GM PACKET PO (21:36)
[2019-04-13] MEDS: Atenolol 50 MG Tablet PO (21:39)
[2019-04-13 21:51] LABS: Bedside Glucose 278 mg/dL (70-110)
[2019-04-13] MEDS: 0.9% Normal Saline 1,000 ML 100 ML IV (23:33)
[2019-04-14] VITALS (9 sets, daily range): BP systolic 98–114; BP diastolic 44–68; PULSE 72–86; RESP 16–18; TEMP 36.6–36.8; O2SAT 99–100
[2019-04-14] MEDS: 0.9% Saline Lock 10 ML Syringe IV ×3 (02:20→20:17)
[2019-04-14 02:41] LABS: Potassium 4.5 mmol/L (3.5-5.1)
[2019-04-14 06:41] LABS: Bedside Glucose 82 mg/dL (70-110)
--- NOTE | 2019-04-14 07:34 | PN_ITS ---
Subjective: The patient is a 73-year-old with a past medical history of cirrhosis secondary to [place], chronic renal failure stage IV, history of breast cancer, pancytopenia, diabetes mellitus type 2 and hypertension who was sent to the emergency room by her critical care clinical nurse specialist for hyperkalemia. She is not on an ANGEL or ARB as an OP and also not on Aldactone. she is on Lasix QOD. Lab at admission showed pancytopenia with a white blood cell count of 2.4, hemoglobin of 7.6, platelet count of 65. Potassium was 6.2 and the BUN was 79 with a creatinine of 2.24 whi ch is within her baseline. Random blood sugar was 252. She was treated with calcium gluconate, insulin and dextrose in the emergency department. She was also given bicarb, Kayexalate and intravenous fluids. She was admitted to the hospital with a dx of Hyperkalemia. Repeat potassium is 4.5. - Physical Exam Vitals/I&O's: Vital Signs Temp Pulse Resp BP Pulse Ox 97.9 F 79 18 98/50 L 99 04/14/19 05:50 04/14/19 05:50 04/14/19 05:50 04/14/19 05:50 04/14/19 05:50 Oxygen Delivery Method Room Air Weight: 160 lb 4.417 oz Body Mass Index (BMI) 29.2 Intake and Output for Last 24 Hours 04/12/19 04/13/19 04/14/19 23:59 23:59 23:59 Intake Total 1136.67 / 1136.67 478.33 / 478.33 Balance 1136.67 / 1136.67 478.33 / 478.33 Laboratory Results 04/13/19 17:30: WBC 2.4 L, RBC 2.49 L, Hgb 7.6 L, Hct 24.2 L, MCV 97.2, MCH 30.5, MCHC 31.4 L, RDW Std Deviation 56.3 H, RDW Coeff of Mary Alice 16.0 H, Plt Count 65 L, MPV 10.2, Immature Gran % (Auto) 0.800, Neut % (Auto) 69.1, Lymph % (Auto) 14.2 L, [place] % (Auto) 8.8, Eos % (Auto) 6.7 H, Baso % (Auto) 0.4, Absolute Neuts (auto) 1.7 L, Absolute Lymphs (auto) 0.34 L, Nucleated RBC % 0, Differential Comment SEE COMMENT, Diff Path Review May foll, Platelet Estimate MOD DEC, Hypochromasia 1+, Anisocytosis 1+, Macrocytosis RARE, Ovalocytes RARE 04/13/19 17:30: Sodium 140, Potassium 6.2 H*, Chloride 114 H, Carbon Dioxide 20.0 L, Anion Gap 6, BUN 79 H, Creatinine 2.24 H, Estim Creat Clear Calc 17.95, Est GFR (MDRD) Af Amer 28 L, Est GFR (MDRD) Non-Af 23 L, BUN/Creatinine Ratio 35.3 H, Glucose 252 H, Calcium 9.9 04/13/19 21:35: POC Glucose 278 H 04/14/19 02:15: Potassium 4.5 04/14/19 06:36: POC Glucose 82 Current Medications Acetaminophen (Tylenol) 650 mg PO Q6H PRN PRN PRN Reason: Pain Score 1-3/Temp > 100.7 F Atenolol (Tenormin (Beta Stuart)) 50 mg PO BID [facility] Last Admin: 04/13/19 21:39 Dose: 50 mg Documented by: Dextrose (D50w Syringe) 0 gm IV X1 PRN; Protocol PRN Reason: Hypoglycemia Furosemide (Lasix) 40 mg PO QODAY KISHOR Glucagon () 1 mg IM .X1 PRN PRN Reason: Hypoglycemia Sodium Chloride () 250 mls @ 15 mls/hr IV .[id number] PRN PRN Reason: Saline Flush Insulin Glargine (Lantus (Bkc)) 20 units SC QHS K[facility] Last Admin: 04/13/19 21:38 Dose: 20 units Documented by: Insulin Human Lispro (Humalog Kwikpen (Bkc)) 0 unit SC ACHS K[facility]; Protocol Last Admin: 04/14/19 06:43 Dose: Not Given Documented by: Polyethylene Glycol (Miralax) 17 gm PO DAILY PRN PRN PRN Reason: Constipation Sodium Chloride () 10 - 40 ml IV UD PRN PRN Reason: SALINE FLUSH Last Admin: 04/14/19 02:20 Dose: 20 ml Documented by: Medical Necessity - Tobacco Use Smoking Status: Never smoker Assessment/Plan All Active Problems (Last Reviewed 04/14/19 @ 04:51 by Arie Rosas MD) Encounter for adjustment or management of vascular access device (Acute) Hyperkalemia (Acute) Hyperkalemia (Acute)
[2019-04-14 09:12] LABS: Hematocrit 21.9 % (37-47); Mean Corpuscular Hgb 31.1 pg (27.0-32.0); Mean Corpuscular Volume 97.3 fL (81-99); Mean Platelet Vol. 9.8 fl (6.2-12.0); Platelet Count 53 K/mm3 (150-450); RBC Distribution Width CV 15.9 % (11.6-14.6); RBC Distribution Width SD 56.7 fl (35.1-43.9); Red Blood Count 2.25 M/mm3 (4.2-5.4); White Blood Count 2.2 K/mm3 (4.4-11.0)
[2019-04-14] MEDS: Furosemide 40 MG Tablet PO (09:31)
[2019-04-14 09:34] LABS: Anion Gap 4 (5-15); BUN 71 mg/dL (7-18); BUN/Creat Ratio 35.1 RATIO (10-20); Calcium,Total 9.7 mg/dL (8.5-10.1); Chloride 117 mmol/L (98-107); Creatinine, Serum 2.02 mg/dL (0.55-1.02); EST Glomerular Filtration Rate 26 mL/min (>60); Est Glom Filt Rate - Afr Amer 31 mL/min (>60); Estimated Creatinine Clearance 19.91 ml/min; Glucose 164 mg/dL (74-106); Phosphorus 4.4 mg/dL (2.5-4.9); Potassium 4.5 mmol/L (3.5-5.1); Sodium Level 143 mmol/L (136-145)
[2019-04-14 09:43] LABS: Hemoglobin A1c 8.1 % (4.2-6.3)
--- NOTE | 2019-04-14 10:41 | CASEMGMT ---
LW/POA forms scanned into summary tab of [facility]. Miko Castro is listed as pt's healthcare POA. JIGNA Rosario
[2019-04-14] MEDS: Insulin Lispro 100 UNIT/ML INSULN.PEN SC ×2 (11:35→16:56)
[2019-04-14 11:45] LABS: Bedside Glucose 232 mg/dL (70-110)
[2019-04-14 11:50] LABS: Pathologist Review Reviewed
[2019-04-14 18:11] LABS: Bedside Glucose 166 mg/dL (70-110)
--- NOTE | 2019-04-14 19:25 | PCM.DC ---
You will use the following diet at home:: Other - renal failure diet with low salt and low potassium Your food should be the consistency of: Regular Your liquids should be the consistency of: Regular/Thin Discharge Activity: Return to Normal Activity Call your doctor if you observe: Fever of 101 or Higher, Shortness of breath, Dizziness, Fainting spells, Chest pain, Increased palpitations (irregular heartbeat) Instructions: Eating a Low Potassium Diet Additional Instructions: [place] juice has a lot of potassium in it. What most likely made the potassium go up is you have been mixing the medicine for itching in orange juice. I am giving you a copy of a list of the foods to limit when you have chronic kidney disease and high potassium. You should follow up with Dr. Price, or Dr. Bay or your kidney doctor next week to have the potassium rechecked. Allergies/Adverse Reactions: Allergies clarithromycin [From Biaxin] Allergy (Verified 04/13/19 15:42) Unknown iodine Allergy (Verified 04/13/19 15:42) Unknown Medications to take at Discharge Atenolol [Tenormin (beta geraldine)] 50 mg PO BID 08/08/13 Insulin Lispro [Humalog KwikPen] See Protocol SQ TID 04/15/17 Furosemide [Lasix] 40 mg PO QODAY 01/22/18 Insulin Glargine,Hum.rec.anlog [Lantus] 35 unit SQ QHS 08/11/18 Cholestyramine/Aspartame [Prevalite Packet] 4 g PO DAILY 04/13/19 Primary Care Physician: Nicola Bay MD [Primary Care Provider] - Please follow up with your Primary Care Physician in: next week to have the potassium rechecked Test Results: Test results from this visit will be discussed in further detail at your follow-up appointment, if applicable. Please Follow Up With: Nicola Price DO When: as previously arranges Proposed Discharge Date: 04/14/19
--- NOTE | 2019-04-14 19:34 | DS.PCM_ITS ---
Discharge Date and Diagnosis Date of Admission: 04/13/19 Date of Discharge: 04/14/19 - Primary Discharge Diagnosis Hyperkalemia - Secondary Discharge Diagnosis Chronic Problems (Last Updated 04/14/19 @ 19:26 by Michela Siddiqui DO) Venous insufficiency (chronic) (peripheral) (Chronic) History of breast cancer (Chronic) Swelling of lower extremity (Chronic) Dependent edema (Chronic) Ascites (Chronic) Chronic kidney disease (CKD) (Chronic) CKD (chronic kidney disease) stage 4, GFR 15-29 ml/min (Chronic) Pancytopenia (Chronic) TIA (transient ischemic attack) (Chronic) DM2 (diabetes mellitus, type 2) (Chronic) Benign essential HTN (Chronic) Hospital Course and Treatment Summary of Care Provided: The patient is a 73 year old F [] - Physical Exam Vitals/I&O's: Vital Signs Temp Pulse Resp BP Pulse Ox 98.3 F 86 16 106/63 100 04/14/19 16:00 04/14/19 19:05 04/14/19 16:00 04/14/19 16:00 04/14/19 16:00 Oxygen Delivery Method Room Air Weight: 160 lb 4.417 oz Body Mass Index (BMI) 29.2 Intake and Output for Last 24 Hours 04/12/19 04/13/19 04/14/19 23:59 23:59 23:59 Intake Total 1136.67 / 1136.67 1598.33 / 1598.33 Output Total 2 / 2 Balance 1136.67 / 1136.67 1596.33 / 1596.33 Laboratory Results 04/13/19 17:30: Diff Path Review Reviewed 04/13/19 21:35: POC Glucose 278 H 04/14/19 02:15: Potassium 4.5 04/14/19 06:36: POC Glucose 82 04/14/19 08:52: WBC 2.2 L, RBC 2.25 L, Hgb 7.0 L, Hct 21.9 L, MCV 97.3, MCH 31.1, MCHC 32.0, RDW Std Deviation 56.7 H, RDW Coeff of Mary [place] 15.9 H, Plt Count 53 L, MPV 9.8 04/14/19 08:52: Sodium 143, Potassium 4.5, Chloride 117 H, Carbon Dioxide 22.0, Anion Gap 4 L, BUN 71 H, Creatinine 2.02 H, Estim Creat Clear Calc 19.91, Est GFR (MDRD) Af Amer 31 L, Est GFR (MDRD) Non-Af 26 L, BUN/Creatinine Ratio 35.1 H , Glucose 164 H, Calcium 9.7, Phosphorus 4.4 04/14/19 08:52: Hemoglobin A1c 8.1 H 04/14/19 11:33: POC Glucose 232 H 04/14/19 16:52: POC Glucose 166 H Current Medications Acetaminophen (Tylenol) 650 mg PO Q6H PRN PRN PRN Reason: Pain Score 1-3/Temp > 100.7 F Atenolol (Tenormin (Beta Stuart)) 50 mg PO BID [facility] Last Admin: 04/14/19 09:30 Dose: Not Given Documented by: Dextrose (D50w Syringe) 0 gm IV X1 PRN; Protocol PRN Reason: Hypoglycemia Furosemide (Lasix) 40 mg PO QODAY [facility] Last Admin: 04/14/19 09:31 Dose: 40 mg Documented by: Glucagon () 1 mg IM .X1 PRN PRN Reason: Hypoglycemia Sodium Chloride () 250 mls @ 15 mls/hr IV .[id number] PRN PRN Reason: Saline Flush Insulin Glargine (Lantus (Bkc)) 20 units SC QHS [facility] Last Admin: 04/13/19 21:38 Dose: 20 units Documented by: Insulin Human Lispro (Humalog Kwikpen (Bkc)) 0 unit SC ACHS [facility]; Protocol Last Admin: 04/14/19 16:56 Dose: 2 units Documented by: Polyethylene Glycol (Miralax) 17 gm PO DAILY PRN PRN PRN Reason: Constipation Sodium Chloride () 10 - 40 ml IV UD PRN PRN Reason: SALINE FLUSH Last Admin: 04/14/19 09:31 Dose: 20 ml Documented by: Discharge Activity: Return to Normal Activity Call your doctor if you observe: Fever of 101 or Higher, Shortness of breath, Dizziness, Fainting spells, Chest pain, Increased palpitations (irregular heartbeat) Home Medications: Medications to take at Discharge Atenolol [Tenormin (beta stuart)] 50 mg PO BID 08/08/13 Insulin Lispro [Humalog KwikPen] See Protocol SQ TID 04/15/17 Furosemide [Lasix] 40 mg PO QODAY 01/22/18 Insulin Glargine,Hum.rec.anlog [Lantus] 35 unit SQ QHS 08/11/18 Cholestyramine/Aspartame [Prevalite Packet] 4 g PO DAILY 04/13/19 Primary Care Physician: Nicola Bay MD [Primary Care Provider] - Please follow up with your Primary Care Physician in: next week to have the potassium rechecked Please Follow Up With: Nicola Price DO When: as previously arranges Patient Instructions: Eating a Low Potassium Diet Medical Necessity - Tobacco Use Smoking Status: Never smoker
--- NOTE | 2019-04-14 19:35 | DS.PCM_ITS ---
Discharge Date and Diagnosis Date of Admission: 04/13/19 Date of Discharge: 04/14/19 - Primary Discharge Diagnosis Hyperkalemia - Secondary Discharge Diagnosis Chronic Problems (Last Updated 04/14/19 @ 19:26 by Michela Siddiqui DO) Venous insufficiency (chronic) (peripheral) (Chronic) History of breast cancer (Chronic) Swelling of lower extremity (Chronic) Dependent edema (Chronic) Ascites (Chronic) CKD (chronic kidney disease) stage 4, GFR 15-29 ml/min (Chronic) Pancytopenia (Chronic) TIA (transient ischemic attack) (Chronic) DM2 (diabetes mellitus, type 2) (Chronic) Benign essential HTN (Chronic) [facility] Hospital Course and Treatment Imaging Results: Laboratory Results - last 24 hr 04/13/19 04/13/19 04/14/19 17:30 21:35 02:15 WBC RBC Hgb Hct MCV MCH MCHC RDW Std Deviation RDW Coeff of Mary Alice Plt Count MPV Diff Path Review Reviewed Sodium Potassium 4.5 Chloride Carbon Dioxide Anion Gap BUN Creatinine Estim Creat Clear Calc Est GFR (MDRD) Af Amer Est GFR (MDRD) Non-Af BUN/Creatinine Ratio Glucose Hemoglobin A1c Calcium Phosphorus POC Glucose 278 H 04/14/19 04/14/19 04/14/19 06:36 08:52 08:52 WBC 2.2 L RBC 2.25 L Hgb 7.0 L Hct 21.9 L MCV 97.3 MCH 31.1 MCHC 32.0 RDW Std Deviation 56.7 H RDW Coeff of Mary Alice 15.9 H Plt Count 53 L MPV 9.8 Diff Path Review Sodium 143 Potassium 4.5 Chloride 117 H Carbon Dioxide 22.0 Anion Gap 4 L BUN 71 H Creatinine 2.02 H Estim Creat Clear Calc 19.91 Est GFR (MDRD) Af Amer 31 L Est GFR (MDRD) Non-Af 26 L BUN/Creatinine Ratio 35.1 H Glucose 164 H Hemoglobin A1c Calcium 9.7 Phosphorus 4.4 POC Glucose 82 04/14/19 04/14/19 04/14/19 08:52 11:33 16:52 WBC RBC Hgb Hct MCV MCH MCHC RDW Std Deviation RDW Coeff of Mary Alice Plt Count MPV Diff Path Review Sodium Potassium Chloride Carbon Dioxide Anion Gap BUN Creatinine Estim Creat Clear Calc Est GFR (MDRD) Af Amer Est GFR (MDRD) Non-Af BUN/Creatinine Ratio Glucose Hemoglobin A1c 8.1 H Calcium Phosphorus POC Glucose 232 H 166 H none Operations: None Procedures: None Summary of Care Provided: The patient is a 73-year-old with a past medical history of cirrhosis secondary to Forrest[place], chronic renal failure stage IV, history of breast cancer, pancytopenia, diabetes mellitus type 2 and hypertension who was sent to the emergency room by her concaver for hyperkalemia. She is not on an ANGEL or ARB as an OP and also not on Aldactone. She is on Lasix QOD. Lab at admission showed pancytopenia with a white blood cell count of 2.4, hemoglobin of 7.6, platelet count of 65. Potassium was 6.2 and the BUN was 79 with a creatinine of 2.24 which is within her baseline. Random blood sugar was 252. She was treated with calcium gluconate, insulin and dextrose in the emergency department. She was also given bicarb, Kayexalate and intravenous fluids. She was admitted to the hospital with a dx of Hyperkalemia. Recheck of the potassium at 2:15 AM was 4.5. A BMP obtained in the a.m. on 04/14/2019 showed a potassium of 4.5 with a serum bicarb of 22, a BUN of 71 and a creatinine of 2.02, down from 2.24 at admission. The HGB decreased from 7.6 at admission to 7 at DC however the fluid balance was +2733. She denied dizziness, lightheadedness, shortness of breath, chest pain or palpitations and she was able to ambulate without difficulty. She revealed to me that recently she was placed on cholestyramine for pruritus and she has been mixing the cholestyramine with orange juice. She has no knowledge of what foods contain high potassium an d she was provided with a printed list of foods to limit when you have chronic renal failure and high potassium. Was discharged home on 04/14/2019 and will follow up with Dr. Nicola Bay next week to have a recheck BMP. PHYSICAL EXAM: GENERAL: alert, oriented X 3, Cooperative, NAD ORAL: moist mucosa, no mucosal lesions NECK: No JVD, supple, trachea midline, no cervical nodes LUNGS: CTA, symmetric chest expansion HEART: RRR, Normal S1 and S2, no rub, no gallop, she has a very loud LALITHA at the second RICS with radiation to the LLSB and the apex. Review of ECHO done in May of 2018 shows mild and I suspect the anemia increases the flow MM. ABDOMEN: soft, NT, ND, BS present, no guarding with palpation EXTREMITIES: no edema, no cyanosis, no calf tenderness SKIN: No rashes, no breakdown NEUROLOGIC: no focal neurologic deficits PSYCH: appropriate, normal affect, pleasant This note was generated with [employer] dictation software. It may contain incorrect words, spelling, and punctuation that were not noted in checking the note before signing. - Physical Exam Vitals/I&O's: Vital Signs Temp Pulse Resp BP Pulse Ox 98.3 F 86 16 106/63 100 04/14/19 16:00 04/14/19 19:05 04/14/19 16:00 04/14/19 16:00 04/14/19 16:00 Oxygen Delivery Method Room Air Weight: 160 lb 4.417 oz Body Mass Index (BMI) 29.2 Intake and Output for Last 24 Hours 04/12/19 04/13/19 04/14/19 23:59 23:59 23:59 Intake Total 1136.67 / 1136.67 1598.33 / 1598.33 Output Total 2 / 2 Balance 1136.67 / 1136.67 1596.33 / 1596.33 Laboratory Results 04/13/19 17:30: Diff Path Review Reviewed 04/13/19 21:35: POC Glucose 278 H 04/14/19 02:15: Potassium 4.5 04/14/19 06:36: POC Glucose 82 04/14/19 08:52: WBC 2.2 L, RBC 2.25 L, Hgb 7.0 L, Hct 21.9 L, MCV 97.3, MCH 31.1, MCHC 32.0, RDW Std Deviation 56.7 H, RDW Coeff of Mary Alice 15.9 H, Plt Count 53 L, MPV 9.8 04/14/19 08:52: Sodium 143, Potassium 4.5, Chloride 117 H, Carbon Dioxide 22.0, Anion Gap 4 L, BUN 71 H, Creatinine 2.02 H, Estim Creat Clear Calc 19.91, Est GFR (MDRD) Af Amer 31 L, Est GFR (MDRD) Non-Af 26 L, BUN/Creatinine Ratio 35.1 H , Glucose 164 H, Calcium 9.7, Phosphorus 4.4 04/14/19 08:52: Hemoglobin A1c 8.1 H 04/14/19 11:33: POC Glucose 232 H 04/14/19 16:52: POC Glucose 166 H Current Medications Acetaminophen (Tylenol) 650 mg PO Q6H PRN PRN PRN Reason: Pain Score 1-3/Temp > 100.7 F Atenolol (Tenormin (Beta Stuart)) 50 mg PO BID [facility] Last Admin: 04/14/19 09:30 Dose: Not Given Documented by: Dextrose (D50w Syringe) 0 gm IV X1 PRN; Protocol PRN Reason: Hypoglycemia Furosemide (Lasix) 40 mg PO QODAY [facility] Last Admin: 04/14/19 09:31 Dose: 40 mg Documented by: Glucagon () 1 mg IM .X1 PRN PRN Reason: Hypoglycemia Sodium Chloride () 250 mls @ 15 mls/hr IV .[id number] PRN PRN Reason: Saline Flush Insulin Glargine (Lantus (Bkc)) 20 units SC QHS [facility] Last Admin: 04/13/19 21:38 Dose: 20 units Documented by: Insulin Human Lispro (Humalog Kwikpen (Bkc)) [facility]; Protocol Last Admin: 04/14/19 16:56 Dose: 2 units Documented by: Polyethylene Glycol (Miralax) 17 gm PO DAILY PRN PRN PRN Reason: Constipation Sodium Chloride () 10 - 40 ml IV UD PRN PRN Reason: SALINE FLUSH Last Admin: 04/14/19 09:31 Dose: 20 ml Documented by: Discharge Activity: Return to Normal Activity Call your doctor if you observe: Fever of 101 or Higher, Shortness of breath, Dizziness, Fainting spells, Chest pain, Increased palpitations (irregular heartbeat) Home Medications: Medications to take at Discharge Atenolol [Tenormin (beta stuart)] 50 mg PO BID 08/08/13 Insulin Lispro [Humalog KwikPen] See Protocol SQ TID 04/15/17 Furosemide [Lasix] 40 mg PO QODAY 01/22/18 Insulin Glargine,Hum.rec.anlog [Lantus] 35 unit SQ QHS 08/11/18 Cholestyramine/Aspartame [Prevalite Packet] 4 g PO DAILY 04/13/19 Primary Care Physician: Nicola Bay MD [Primary Care Provider] - Please follow up with your Primary Care Physician in: next week to have the potassium rechecked Please Follow Up With: Nicola Price DO When: as previously arranges Patient Instructions: Eating a Low Potassium Diet Disposition: Home Minutes spent on discharge:: 30 Patient Condition:: Stable Medical Necessity - Tobacco Use Smoking Status: Never smoker Tobacco Use: Non-smoker Meaningful Use Info Meaningful Use Diagnoses (Choose all that apply): None applicable Code Visit OBSV E&M: 91276 Observation care discharge
== END 2019-04-14 20:35 | disposition home or self-care (01) ==
LOC: ED 19:22 → PCU 19:47
PROVIDERS: Admitting Provider Hospitalist; Emergency Provider Emergency Medicine; Family Provider Family Medicine; PCP Family Medicine; Referring Provider Hospitalist; Visit Provider Internal Medicine
DX: E87.5 Hyperkalemia (principal); E11.22 Type 2 diabetes mellitus with diabetic chronic kidney disease; I12.9 Hypertensive chronic kidney disease with stage 1 through stage 4 chronic kidney disease, or unspecified chronic kidney disease; N18.4 Chronic kidney disease, stage 4 (severe); R18.8 Other ascites; D61.818 Other pancytopenia; K74.60 Unspecified cirrhosis of liver; I87.2 Venous insufficiency (chronic) (peripheral); K75.81 Nonalcoholic steatohepatitis (NASH); Z79.899 Other long term (current) drug therapy; Z79.4 Long term (current) use of insulin
CPT/HCPCS: 36591; 49083; 80048; 80061; 80069; 81001; 82043; 82306; 82570; 82728; 82962; 83036; 83540; 83550; 83970; 84100; 84132; 84156; 85025; 85027; 85610; 85730; 93005; 96361; 96374; 96375; 97161; 97165; 99218; 99285; J7030; A4216; G0378

== ENCOUNTER → 2019-04-20 10:21 | Outpatient (CLI) | payer MEDICARE, SELFPAY ==
[2019-01-26 11:32] VITALS: BMI 31.1
[2019-04-13 20:24] VITALS: BMI 29.2
--- NOTE | 2019-04-20 10:23 | US_ITS ---
PROCEDURE: Ultrasound guided paracentesis. DATE OF EXAMINATION: April 20, 2019. INDICATION: Female, 73 years old. Ascites. PHYSICIAN: Rigo Britt M.D. TECHNIQUE: The risks, benefits, and alternatives to the procedure were explained to the patient. The specific risks of bleeding, infection, and damage to bowel were detailed and accepted. Witnessed informed consent was obtained. The abdomen was ultrasonographically surveyed. An appropriate pocket of fluid was identified at the right lower quadrant. The skin were cleaned and prepped in the usual sterile fashion. Using ultrasound guidance, the peritoneal cavity was accessed with a 5-Citizen Of [place] paracentesis needle/catheter system. The trocar was removed. A total of 3700 ml of harsh-colored fluid were removed from the peritoneal cavity. The catheter was removed and a sterile dressing was applied. The procedure was well tolerated. US/Paracentesis with US IMPRESSION: Ultrasound guided paracentesis. Electronically Signed: Rigo Britt, at 12:35 EDT , Service support ,
[2019-04-20 10:40] VITALS: BP 101/51; BP 110/51; BP 118/53; BP 141/48; PULSE 69; PULSE 72; PULSE 74; PULSE 80; RESP 16; O2SAT 97; O2SAT 98; O2SAT 99
[2019-04-20 12:24] LABS: Anion Gap 6 (5-15); BUN 85 mg/dL (7-18); BUN/Creat Ratio 40.3 RATIO (10-20); Calcium,Total 9.2 mg/dL (8.5-10.1); Chloride 113 mmol/L (98-107); Creatinine, Serum 2.11 mg/dL (0.55-1.02); EST Glomerular Filtration Rate 24 mL/min (>60); Est Glom Filt Rate - Afr Amer 30 mL/min (>60); Glucose 262 mg/dL (74-106); Potassium 5.1 mmol/L (3.5-5.1); Sodium Level 141 mmol/L (136-145)
== END ==
LOC: US 11:26 → MEDOUTP 11:27
PROVIDERS: Internal Medicine Nephrology; Family Provider Family Medicine; PCP Family Medicine; Referring Provider Internal Medicine Gastroenterology; Visit Provider Internal Medicine Gastroenterology
DX: K74.60 Unspecified cirrhosis of liver (principal); E87.5 Hyperkalemia
CPT/HCPCS: 36591; 49083; 80048; A4216

== ENCOUNTER → 2019-04-27 10:21 | Outpatient (CLI) | payer MEDICARE, SELFPAY ==
[2019-03-23 11:30] VITALS: BMI 32.1
[2019-04-13 20:24] VITALS: BMI 29.2
--- NOTE | 2019-04-27 10:24 | US_ITS ---
PROCEDURE: Ultrasound guided paracentesis. DATE OF EXAMINATION: April 27, 2019. INDICATION: Female, 73 years old. Ascites. PHYSICIAN: Rigo Britt M.D. TECHNIQUE: The risks, benefits, and alternatives to the procedure were explained to the patient. The specific risks of bleeding, infection, and damage to bowel were detailed and accepted. Witnessed informed consent was obtained. The abdomen was ultrasonographically surveyed. An appropriate pocket of fluid was identified at the left lower quadrant. The skin were cleaned and prepped in the usual sterile fashion. Using ultrasound guidance, the peritoneal cavity was accessed with a 5-Amharic paracentesis needle/catheter system. The trocar was removed. A total of 6500 ml of harsh-colored fluid were removed from the peritoneal cavity. The catheter was removed and a sterile dressing was applied. The procedure was well tolerated. US/Paracentesis with US IMPRESSION: Ultrasound guided paracentesis. Electronically Signed: Rigo Britt, at 12:38 EST , Service support ,
[2019-04-27 10:39] VITALS: BP 168/79; PULSE 108; RESP 16; O2SAT 100
[2019-04-27 10:56] VITALS: BP 140/71; BP 156/78; BP 165/69; PULSE 100; PULSE 104; PULSE 99; RESP 16; O2SAT 99
[2019-04-27 11:55] VITALS: BP 117/68; PULSE 95; RESP 18; TEMP 36.4; O2SAT 100; BMI 29.2
[2019-04-27] MEDS: Albumin Human 25% (100 mL) 25 GM/100 ML BAG IV (11:59)
[2019-04-27 12:48] LABS: Anion Gap 8 (5-15); BUN 81 mg/dL (7-18); BUN/Creat Ratio 37.9 RATIO (10-20); Calcium,Total 9.4 mg/dL (8.5-10.1); Chloride 111 mmol/L (98-107); Creatinine, Serum 2.14 mg/dL (0.55-1.02); EST Glomerular Filtration Rate 24 mL/min (>60); Est Glom Filt Rate - Afr Amer 29 mL/min (>60); Glucose 295 mg/dL (74-106); Potassium 5.4 mmol/L (3.5-5.1); Sodium Level 139 mmol/L (136-145)
[2019-04-27] MEDS: Albumin Human 25% (50 mL) 12.5 GM/50 ML IV.SOLN IV (13:23)
[2019-04-27 14:23] VITALS: BP 117/60; PULSE 89; RESP 18
== END ==
LOC: US 10:21 → MEDOUTP 11:24
PROVIDERS: Nurse Practitioner Adult Health; Family Provider Family Medicine; PCP Family Medicine; Referring Provider Internal Medicine Gastroenterology; Visit Provider Internal Medicine Gastroenterology
DX: K74.60 Unspecified cirrhosis of liver (principal); R18.8 Other ascites; E87.5 Hyperkalemia
CPT/HCPCS: 96365; 96366; 49083; 80048; P9047; A4216

== ENCOUNTER → 2019-05-04 10:24 | Outpatient (CLI) | payer MEDICARE, SELFPAY ==
[2019-03-23 11:30] VITALS: BMI 32.1
[2019-04-27 11:55] VITALS: BMI 29.2
--- NOTE | 2019-05-04 10:25 | US_ITS ---
PROCEDURE: Ultrasound guided paracentesis. DATE OF EXAMINATION: May 04, 2019. INDICATION: Female, 73 years old. Ascites. PHYSICIAN: Rigo Britt M.D. TECHNIQUE: The risks, benefits, and alternatives to the procedure were explained to the patient. The specific risks of bleeding, infection, and damage to bowel were detailed and accepted. Witnessed informed consent was obtained. The abdomen was ultrasonographically surveyed. An appropriate pocket of fluid was identified at the right lower quadrant. The skin were cleaned and prepped in the usual sterile fashion. Using ultrasound guidance, the peritoneal cavity was accessed with a 5-German paracentesis needle/catheter system. The trocar was removed. A total of 5050 ml of harsh-colored fluid were removed from the peritoneal cavity. The catheter was removed and a sterile dressing was applied. The procedure was well tolerated. US/Paracentesis with US IMPRESSION: Ultrasound guided paracentesis. Electronically Signed: Rigo Britt, at 11:32 EST , Service support ,
[2019-05-04 10:39] VITALS: BP 108/57; BP 115/54; BP 153/56; PULSE 80; PULSE 84; PULSE 88; RESP 16; O2SAT 100; O2SAT 99
[2019-05-04 11:25] VITALS: BP 110/58; PULSE 93; RESP 16; TEMP 36.7; BMI 31.4
[2019-05-04] MEDS: Albumin Human 25% (100 mL) 25 GM/100 ML BAG IV (11:42)
== END ==
LOC: US 10:24 → MEDOUTP 11:19
PROVIDERS: Family Provider Family Medicine; PCP Family Medicine; Referring Provider Internal Medicine Gastroenterology; Visit Provider Internal Medicine Gastroenterology
DX: K74.60 Unspecified cirrhosis of liver (principal); R18.8 Other ascites
CPT/HCPCS: 96365; 96366; 49083; P9047

== ENCOUNTER → 2019-05-11 09:04 | Outpatient (CLI) | payer MEDICARE, SELFPAY ==
[2019-03-23 11:30] VITALS: BMI 32.1
[2019-05-04 11:25] VITALS: BMI 31.4
--- NOTE | 2019-05-11 09:11 | BD_ITS ---
STUDY: DUAL ENERGY X-RAY ABSORPTIOMETRY / DXA REASON FOR EXAM: Female, 73 years old. The patient is postmenopausal. Loss of height. TECHNIQUE: Bone Mineral Density (BMD) measurements of lumbar spine and bilateral hips were obtained. COMPARISON: Comparison is made with prior study dated April 13, 2013. FINDINGS: Lumbar Spine (L1-L4): g/cm2 (0.985) / T-score (-1.5) / Z-score (0.2) Findings are suggestive of osteopenia with a low fracture risk. Left Femur Total: g/cm2 (0.762) / T-score (-1.9) / Z-score (-0.4) Left Femoral Neck: g/cm2 (0.666) / T-score (-2.7) / Z-score (-0.9) Right Femur Total: g/cm2 (0.664) / T-score (-2.7) / Z-score (-1.1) Right Femoral Neck: g/cm2 (0.656) / T-score (-2.7) / Z-score (-0.9) The T-Scores on the most recent prior examination were: Lumbar Spine (L1-L4): There has been worsening of bone density since the previous examination. Left Femur Total: which represents a worsening of 22.6%. Right Femur Total: which represents a worsening of 29.1%. BD/Dexa Bone Density Study IMPRESSION: The patient is considered osteoporotic as outlined below according to World Heri Organization (WHO) criteria with a high fracture risk. There has been worsening of bone density since the previous examination. Reference Information: The T-score is the number of standard deviations above or below the standard which is normal for young adults at their peak bone mineral density. The World Health Organization (WHO) interprets the T-scores as follows: Above -1 Normal bone density Between -1 and -2.5 Osteopenia Equal to / or below -2.5 Osteoporosis As a practical clinical guideline, osteopenia may be graded as follows: Mild -1 through -1.5 Moderate -1.6 through -2.0 Severe -2.1 through -2.4 The Z-score is the number of standard deviations above or below age-matched controls. A Z-score of less than -1.5 would be considered abnormal. References: 1. NIH Osteoporosis and Related Bone Diseases http://www.osteo.org 2. International Society for Clinical Densitometry http://www.iscd.org 3. National Osteoporosis Foundation http://www.nof.org Electronically Signed: Rigo Britt, at 13:26 EST , Service support ,
--- NOTE | 2019-05-11 09:33 | US_ITS ---
PROCEDURE: Ultrasound guided paracentesis. DATE OF EXAMINATION: May 11, 2019. INDICATION: Female, 73 years old. Ascites. PHYSICIAN: Rigo Britt M.D. TECHNIQUE: The risks, benefits, and alternatives to the procedure were explained to the patient. The specific risks of bleeding, infection, and damage to bowel were detailed and accepted. Witnessed informed consent was obtained. The abdomen was ultrasonographically surveyed. An appropriate pocket of fluid was identified at the right lower quadrant. The skin were cleaned and prepped in the usual sterile fashion. Using ultrasound guidance, the peritoneal cavity was accessed with a 5-Canadian paracentesis needle/catheter system. The trocar was removed. A total of 5250 ml of harsh-colored fluid were removed from the peritoneal cavity. The catheter was removed and a sterile dressing was applied. The procedure was well tolerated. US/Paracentesis with US IMPRESSION: Ultrasound guided paracentesis. Electronically Signed: Rigo Britt, at 10:55 EST , Service support ,
[2019-05-11 09:58] VITALS: BP 135/84; BP 144/72; PULSE 92; PULSE 93; RESP 16; O2SAT 100; O2SAT 98
[2019-05-11 10:23] VITALS: BP 118/63; PULSE 94; RESP 16; TEMP 36.3; O2SAT 100; BMI 29.8
[2019-05-11] MEDS: Albumin Human 25% (100 mL) 25 GM/100 ML BAG IV (11:07)
[2019-05-11 11:11] LABS: International Normalized Ratio 1.2; Prothrombin Time (Protime)PT. 14.7 SECONDS (11.7-14.9)
[2019-05-11 11:12] LABS: Partial Thromboplast Time 33.3 Seconds (24.1-36.2)
[2019-05-11 11:17] LABS: Hemoglobin A1c 7.3 % (4.2-6.3)
[2019-05-11 11:23] LABS: Ferritin 25 ng/mL (8-252)
[2019-05-11 11:27] LABS: ALB/GLOB Ratio 0.8 RATIO (0.9-2.4); AST(SGOT) 32 U/L (15-37); Alanine Aminotransfer ALT/SGPT 49 U/L (13-56); Albumin, Serum 2.8 g/dL (3.2-5.0); Alkaline Phosphatase 167 U/L (45-117); Anion Gap 8 (5-15); BUN 83 mg/dL (7-18); BUN/Creat Ratio 34.4 RATIO (10-20); Calcium,Total 9.6 mg/dL (8.5-10.1); Chloride 114 mmol/L (98-107); Cholesterol 110 mg/dL (200); Creatinine, Serum 2.41 mg/dL (0.55-1.02); EST Glomerular Filtration Rate 21 mL/min (>60); Est Glom Filt Rate - Afr Amer 25 mL/min (>60); Estimated Creatinine Clearance 16.69 ml/min; Globulin 3.3 g/dL (2.2-4.2); Glucose 111 mg/dL (74-106); High Density Lipoprotein 29 mg/dL; Magnesium 2.5 mg/dL (1.6-2.6); PTHIN 500.1 pg/mL (18.4-80.1); Phosphorus 3.7 mg/dL (2.5-4.9); Protein, Total 6.1 g/dL (6.4-8.2); Sodium Level 143 mmol/L (136-145); Thyroid Stim Hormone (TSH) 4.93 uIU/mL (0.358-3.74); Triglycerides 61 mg/dL; Very Low Density Lipoprotein 12 mg/dL (5-40)
[2019-05-11 13:38] LABS: Calcium, Urine (Random) < 5.0 mg/dL (Not Estab.)
[2019-05-13 12:56] LABS: C-Peptide 6.4 ng/mL (1.1-4.4); Vitamin D 1,25-Dihydroxy 12.8 pg/mL (19.9-79.3)
== END ==
LOC: OPBD 09:05 → MEDOUTP 10:17
PROVIDERS: Family Provider Family Medicine; PCP Family Medicine; Referring Provider Internal Medicine Endocrinology, Diabetes & Metabolism; Visit Provider Internal Medicine Endocrinology, Diabetes & Metabolism
DX: K74.60 Unspecified cirrhosis of liver (principal); R18.8 Other ascites; E21.3 Hyperparathyroidism, unspecified; E11.65 Type 2 diabetes mellitus with hyperglycemia; M81.0 Age-related osteoporosis without current pathological fracture
CPT/HCPCS: 96365; 96366; 49083; 77080; 80053; 80061; 82330; 82340; 82570; 82652; 82728; 83036; 83735; 83970; 84100; 84443; 84681; 85610; 85730; P9047; A4216

== ENCOUNTER → 2019-05-16 09:12 | Outpatient (CLI) | payer MEDICARE, SELFPAY ==
[2019-05-04 11:25] VITALS: BMI 31.4
[2019-05-11 10:23] VITALS: BMI 29.8
--- NOTE | 2019-05-16 09:14 | NM_ITS ---
CLINICAL: 73-year-old female with reported history of clinical hyperparathyroidism. 99m Tc SESTAMIBI DUAL PHASE PARATHYROID SCINTIGRAPHY COMPARISON: Previous Tc sestamibi parathyroid scintigraphy report 01/01/2017 FINDINGS: Following the intravenous administration of 27.0 mCi of 99m Tc sestamibi, image acquisitions of the anterior neck at 20 minutes and 2.0 hours post radiopharmaceutical provision reveal: 1. Immediate static blood pool acquisitions demonstrate distribution of the radiopharmaceutical in the right-left thyroid colloid of a U-shaped thyroid gland. Accentuated uptake is noted in the region of the inferior pole of the right thyroid bed or right anterior neck adjacent to the inferior pole thyroid colloid. 2. Delayed images depict persistent tracer concentration noted primarily contiguous to and adjacent to the inferior pole of the right thyroid bed corresponding to the initial acquisition abnormality. NM/Parathyroid Scan IMPRESSION: 1. The subtle persistent increase in radiopharmaceutical concentration noted in the region of the inferior pole of the right thyroid bed likely represents a small parathyroid adenoma. Electronically Signed: Maikel Chapman DO at 23:17 EST Tel , Service support ,
== END ==
PROVIDERS: Family Provider Family Medicine; PCP Family Medicine; Referring Provider Internal Medicine Endocrinology, Diabetes & Metabolism; Visit Provider Internal Medicine Endocrinology, Diabetes & Metabolism
DX: E11.65 Type 2 diabetes mellitus with hyperglycemia (principal); E21.3 Hyperparathyroidism, unspecified
CPT/HCPCS: 78070; A9500; A4216

== ENCOUNTER → 2019-05-17 10:24 | Outpatient (CLI) | payer MEDICARE, SELFPAY ==
[2019-03-23 11:30] VITALS: BMI 32.1
[2019-05-11 10:23] VITALS: BMI 29.8
--- NOTE | 2019-05-17 10:25 | US_ITS ---
PROCEDURE: ULTRASOUND GUIDED PARACENTESIS CLINICAL HISTORY: Female, 73 years old. CONSENT: Time-Out Called: Yes. Consent form signed: Yes. PT-PTT Levels Checked: Yes. SEDATION: No TECHNIQUE: Under ultrasound guidance and following appropriate antiseptic preparation and local anesthesia 6 Spanish draining catheter was inserted in the right flank. 4450cc of Yellow pale fluid aspirated. The patient tolerated the procedure well. US/Paracentesis with US IMPRESSION: Uneventful paracentesis. Electronically Signed: Danish Gao, at 14:22 EST Tel , Service support ,
[2019-05-17 12:10] VITALS: BP 105/67; BP 110/53; BP 112/60; BP 126/61; PULSE 107; PULSE 86; PULSE 98; RESP 16; RESP 18; O2SAT 95; O2SAT 98; O2SAT 99
== END ==
PROVIDERS: Family Provider Family Medicine; PCP Family Medicine; Referring Provider Internal Medicine Gastroenterology; Visit Provider Internal Medicine Gastroenterology
DX: K74.60 Unspecified cirrhosis of liver (principal)
CPT/HCPCS: 49083

== ENCOUNTER → 2019-05-25 10:27 | Outpatient (CLI) | payer MEDICARE, SELFPAY ==
[2019-03-23 11:30] VITALS: BMI 32.1
[2019-05-11 10:23] VITALS: BMI 29.8
--- NOTE | 2019-05-25 10:27 | US_ITS ---
PROCEDURE: Ultrasound guided paracentesis. DATE OF EXAMINATION: May 25, 2019. INDICATION: Female, 73 years old. Ascites. PHYSICIAN: Rigo Britt M.D. TECHNIQUE: The risks, benefits, and alternatives to the procedure were explained to the patient. The specific risks of bleeding, infection, and damage to bowel were detailed and accepted. Witnessed informed consent was obtained. The abdomen was ultrasonographically surveyed. An appropriate pocket of fluid was identified at the right lower quadrant. The skin were cleaned and prepped in the usual sterile fashion. Using ultrasound guidance, the peritoneal cavity was accessed with a 5-Dutch paracentesis needle/catheter system. The trocar was removed. A total of 6050 ml of harsh-colored fluid were removed from the peritoneal cavity. The catheter was removed and a sterile dressing was applied. The procedure was well tolerated. US/Paracentesis with US IMPRESSION: Ultrasound guided paracentesis. Electronically Signed: Rigo Britt, at 11:46 EST , Service support ,
[2019-05-25 10:57] VITALS: BP 113/78; BP 121/64; BP 137/64; PULSE 59; PULSE 73; PULSE 98; RESP 14; RESP 16; O2SAT 93; O2SAT 96
[2019-05-25] MEDS: Albumin Human 25% (100 mL) 25 GM/100 ML BAG IV (11:32)
[2019-05-25 11:33] VITALS: BP 108/55; PULSE 91; RESP 16; TEMP 36.6; O2SAT 100; BMI 32.0
== END ==
LOC: US 10:27 → MEDOUTP 11:20
PROVIDERS: Family Provider Family Medicine; PCP Family Medicine; Referring Provider Internal Medicine Gastroenterology; Visit Provider Internal Medicine Gastroenterology
DX: K74.60 Unspecified cirrhosis of liver (principal); R18.8 Other ascites
CPT/HCPCS: 96365; 96366; 49083; P9047; A4216

== ENCOUNTER → 2019-06-01 10:21 | Outpatient (CLI) | payer MEDICARE, SELFPAY ==
[2019-03-23 11:30] VITALS: BMI 32.1
[2019-05-25 11:33] VITALS: BMI 32.0
--- NOTE | 2019-06-01 10:22 | US_ITS ---
PROCEDURE: Ultrasound guided paracentesis. DATE OF EXAMINATION: June 01, 2019. INDICATION: Female, 73 years old. Ascites. PHYSICIAN: Rigo Britt M.D. TECHNIQUE: The risks, benefits, and alternatives to the procedure were explained to the patient. The specific risks of bleeding, infection, and damage to bowel were detailed and accepted. Witnessed informed consent was obtained. The abdomen was ultrasonographically surveyed. An appropriate pocket of fluid was identified at the right lower quadrant. The skin were cleaned and prepped in the usual sterile fashion. Using ultrasound guidance, the peritoneal cavity was accessed with a 5-Greek paracentesis needle/catheter system. The trocar was removed. A total of 6650 ml of harsh-colored fluid were removed from the peritoneal cavity. The catheter was removed and a sterile dressing was applied. The procedure was well tolerated. US/Paracentesis with US IMPRESSION: Ultrasound guided paracentesis. Electronically Signed: Rigo Britt, at 13:03 EST , Service support ,
[2019-06-01 10:40] VITALS: BP 118/91; BP 127/85; BP 137/72; PULSE 101; PULSE 89; PULSE 94; RESP 16; RESP 18; O2SAT 99
[2019-06-01] MEDS: Albumin Human 25% (100 mL) 25 GM/100 ML BAG IV (11:46)
[2019-06-01 11:47] VITALS: BP 119/58; PULSE 96; RESP 14; TEMP 36.4; O2SAT 100; BMI 32.0
[2019-06-01] MEDS: Albumin Human 25% (50 mL) 12.5 GM/50 ML IV.SOLN IV (13:07)
== END ==
LOC: US 10:21 → MEDOUTP 11:30
PROVIDERS: Family Provider Family Medicine; PCP Family Medicine; Referring Provider Internal Medicine Gastroenterology; Visit Provider Internal Medicine Gastroenterology
DX: K74.60 Unspecified cirrhosis of liver (principal)
CPT/HCPCS: 96365; 96366; 49083; P9047; A4216

== ENCOUNTER → 2019-06-08 10:25 | Outpatient (CLI) | payer MEDICARE, SELFPAY ==
[2019-03-23 11:30] VITALS: BMI 32.1
[2019-06-01 11:47] VITALS: BMI 32.0
--- NOTE | 2019-06-08 10:27 | US_ITS ---
PROCEDURE: Ultrasound guided paracentesis. DATE OF EXAMINATION: June 08, 2019. INDICATION: Female, 73 years old. Ascites. PHYSICIAN: Rigo Britt M.D. TECHNIQUE: The risks, benefits, and alternatives to the procedure were explained to the patient. The specific risks of bleeding, infection, and damage to bowel were detailed and accepted. Witnessed informed consent was obtained. The abdomen was ultrasonographically surveyed. An appropriate pocket of fluid was identified at the right lower quadrant. The skin were cleaned and prepped in the usual sterile fashion. Using ultrasound guidance, the peritoneal cavity was accessed with a 5-Maldivian paracentesis needle/catheter system. The trocar was removed. A total of 6700 ml of light-colored fluid were removed from the peritoneal cavity. The catheter was removed and a sterile dressing was applied. The procedure was well tolerated. US/Paracentesis with US IMPRESSION: Ultrasound guided paracentesis. Electronically Signed: Rigo Britt, at 12:29 EST , Service support ,
[2019-06-08 10:41] VITALS: BP 104/49; BP 123/63; BP 133/59; BP 97/45; PULSE 62; PULSE 66; PULSE 67; PULSE 68; RESP 16; O2SAT 100; O2SAT 96; O2SAT 99
[2019-06-08 11:39] VITALS: BP 94/44; PULSE 61; RESP 16; TEMP 36.1; O2SAT 100; BMI 31.1
[2019-06-08] MEDS: Albumin Human 25% (100 mL) 25 GM/100 ML BAG IV (11:54)
[2019-06-08] MEDS: Albumin Human 25% (50 mL) 12.5 GM/50 ML IV.SOLN IV (13:21)
[2019-06-08 14:19] VITALS: BP 90/35; PULSE 69; RESP 18; O2SAT 100
== END ==
LOC: US 10:26 → MEDOUTP 11:23
PROVIDERS: Family Provider Family Medicine; PCP Family Medicine; Referring Provider Internal Medicine Gastroenterology; Visit Provider Internal Medicine Gastroenterology
DX: K74.60 Unspecified cirrhosis of liver (principal); R18.8 Other ascites
CPT/HCPCS: 96365; 96366 ×2; 49083; P9047; A4216

== ENCOUNTER → 2019-06-15 10:25 | Outpatient (CLI) | payer MEDICARE, SELFPAY ==
[2019-03-23 11:30] VITALS: BMI 32.1
[2019-06-08 11:39] VITALS: BMI 31.1
--- NOTE | 2019-06-15 10:27 | US_ITS ---
PROCEDURE: ULTRASOUND GUIDED PARACENTESIS CLINICAL HISTORY: Female, 73 years old. ASCITES CONSENT: The risks, benefits and alternatives to the procedure were explained to the patient, and the patient agreed to the procedure and signed the consent. 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 PROCEDURE/TECHNIQUE: The risks, benefits, and alternatives to the procedure were explained to patient, and the patient agreed to the procedure and signed a consent form for the procedure. TECHNIQUE: Under the ultrasound guidance using sterile technique and after infiltration of the skin and subcutaneous soft tissues with 10 mL of lidocaine 1% a 5 Tajik drainage catheter is introduced in the lower part of the abdomen. 4850 mL of fluid were removed sample sent to lab for evaluation. The patient tolerated the procedure there was no immediate complication. FINDINGS: FLUID PRE-PROCEDURE There is posterior enhancement. The findings appear anechoic. There is no loculation. FLUID POST-PROCEDURE Amount of fluid drained: 4850 ml. US/Paracentesis with US IMPRESSION: Successful ultrasound-guided paracentesis. Electronically Signed: Samra Martinez, at 0:06 EST Tel , Service support ,
[2019-06-15 10:50] VITALS: BP 123/85; BP 136/63; BP 139/71; PULSE 92; RESP 18
== END ==
PROVIDERS: Family Provider Family Medicine; PCP Family Medicine; Referring Provider Internal Medicine Gastroenterology; Visit Provider Internal Medicine Gastroenterology
DX: K74.60 Unspecified cirrhosis of liver (principal)
CPT/HCPCS: 49083

== ENCOUNTER → 2019-06-22 10:19 | Outpatient (CLI) | payer MEDICARE, SELFPAY ==
[2019-05-04 11:25] VITALS: BMI 31.4
[2019-06-08 11:39] VITALS: BMI 31.1
--- NOTE | 2019-06-22 10:21 | US_ITS ---
PROCEDURE: ULTRASOUND GUIDED PARACENTESIS CLINICAL HISTORY: Female, 73 years old. ascites CONSENT: The entire procedure, risks, benefits and alternatives (including doing nothing) were discussed with the patient preprocedure. Risks presented included (but were not limited to) infection/abscess, bleeding, pain, reaction to medications and potential injury/damage to intra-abdominal/intrapelvic organs. All patient questions were answered satisfactorily. Written consent was obtained, witnessed and placed on the patient''s chart. Time-Out Called: Yes. Consent form signed: Yes. PT-PTT Levels Checked: Yes. SEDATION: None. TECHNIQUE: The patient was taken into the fluoroscopy suite and positioned in the semiupright position. A short time out was observed. Limited and directed sonography of the abdomen/pelvis demonstrated a large collection of free ascites in the right lower quadrant. An intended percutaneous site was identified and marked. The anterolateral right lower quadrant ventral soft tissues were then thoroughly prepped and draped in the usual sterile manner. Local superficial anesthesia was obtained with approximately 0.75 cc of 2% lidocaine without epinephrine. A small thoracotomy was made. Thereafter, a 5 Uzbek coaxial device/system was advanced through the soft tissues and tip parked in the fluid collection. From this location, 4.5 L of clear ascites was collected. The device was removed, soft tissues cleansed and a sterile occlusive dressing applied. US/Paracentesis with US IMPRESSION: Successful, ultrasound-guided right lower quadrant paracentesis. Complications: The patient tolerated the procedure well without evident immediate post procedure complication. Electronically Signed: Cachorro Harper MD at 11:21 EST , Service support ,
[2019-06-22 10:43] VITALS: BP 131/75; BP 146/76; PULSE 94; PULSE 99; RESP 16; O2SAT 100
== END ==
PROVIDERS: Family Provider Family Medicine; PCP Family Medicine; Referring Provider Internal Medicine Gastroenterology; Visit Provider Internal Medicine Gastroenterology
DX: K74.60 Unspecified cirrhosis of liver (principal)
CPT/HCPCS: 49083

== ENCOUNTER → 2019-06-29 10:21 | Outpatient (CLI) | payer MEDICARE, SELFPAY ==
[2019-05-04 11:25] VITALS: BMI 31.4
[2019-06-08 11:39] VITALS: BMI 31.1
--- NOTE | 2019-06-29 10:23 | US_ITS ---
PROCEDURE: Ultrasound guided paracentesis. DATE OF EXAMINATION: June 29, 2019. INDICATION: Female, 73 years old. Ascites. PHYSICIAN: Rigo Britt M.D. TECHNIQUE: The risks, benefits, and alternatives to the procedure were explained to the patient. The specific risks of bleeding, infection, and damage to bowel were detailed and accepted. Witnessed informed consent was obtained. The abdomen was ultrasonographically surveyed. An appropriate pocket of fluid was identified at the left lower quadrant. The skin were cleaned and prepped in the usual sterile fashion. Using ultrasound guidance, the peritoneal cavity was accessed with a 5-Georgian paracentesis needle/catheter system. The trocar was removed. A total of 6750 ml of harsh-colored fluid were removed from the peritoneal cavity. The catheter was removed and a sterile dressing was applied. The procedure was well tolerated. US/Paracentesis with US IMPRESSION: Ultrasound guided paracentesis. Electronically Signed: Rigo Britt, at 13:24 EST , Service support ,
[2019-06-29 10:55] VITALS: BP 108/57; BP 112/46; BP 92/60; PULSE 53; PULSE 61; RESP 18; O2SAT 100; O2SAT 99
[2019-06-29 12:06] VITALS: BP 98/56; PULSE 57; RESP 16; TEMP 36.4; O2SAT 100; BMI 31.4
[2019-06-29] MEDS: Albumin Human 25% (100 mL) 25 GM/100 ML BAG IV (12:14)
[2019-06-29 12:48] LABS: Anion Gap 6 (5-15); BUN 116 mg/dL (7-18); BUN/Creat Ratio 45.8 RATIO (10-20); Calcium,Total 9.2 mg/dL (8.5-10.1); Chloride 115 mmol/L (98-107); Creatinine, Serum 2.53 mg/dL (0.55-1.02); EST Glomerular Filtration Rate 20 mL/min (>60); Est Glom Filt Rate - Afr Amer 24 mL/min (>60); Glucose 145 mg/dL (74-106); Potassium 5.1 mmol/L (3.5-5.1); Sodium Level 142 mmol/L (136-145)
[2019-06-29 12:49] LABS: International Normalized Ratio 1.1; Prothrombin Time (Protime)PT. 14.3 SECONDS (11.7-14.9)
[2019-06-29 12:50] LABS: Partial Thromboplast Time 37.2 Seconds (24.1-36.2)
== END ==
LOC: US 10:21 → MEDOUTP 11:55
PROVIDERS: Family Provider Family Medicine; PCP Family Medicine; Referring Provider Internal Medicine Gastroenterology; Visit Provider Internal Medicine Gastroenterology
DX: K74.60 Unspecified cirrhosis of liver (principal)
CPT/HCPCS: 96365; 36591; 49083; 80048; 85610; 85730; P9047; A4216

== ENCOUNTER → 2019-07-06 10:28 | Outpatient (CLI) | payer MEDICARE, SELFPAY ==
[2019-05-04 11:25] VITALS: BMI 31.4
[2019-06-29 12:06] VITALS: BMI 31.4
--- NOTE | 2019-07-06 10:30 | US_ITS ---
PROCEDURE: Ultrasound guided paracentesis. DATE OF EXAMINATION: July 06, 2019. INDICATION: Female, 73 years old. Ascites. PHYSICIAN: Rigo Britt M.D. TECHNIQUE: The risks, benefits, and alternatives to the procedure were explained to the patient. The specific risks of bleeding, infection, and damage to bowel were detailed and accepted. Witnessed informed consent was obtained. The abdomen was ultrasonographically surveyed. An appropriate pocket of fluid was identified at the right lower quadrant. The skin were cleaned and prepped in the usual sterile fashion. Using ultrasound guidance, the peritoneal cavity was accessed with a 5-Greek paracentesis needle/catheter system. The trocar was removed. A total of 4400 ml of harsh-colored fluid were removed from the peritoneal cavity. The catheter was removed and a sterile dressing was applied. The procedure was well tolerated. US/Paracentesis with US IMPRESSION: Ultrasound guided paracentesis. Electronically Signed: Rigo Britt, at 12:08 EST , Service support ,
[2019-07-06 11:10] VITALS: BP 116/57; BP 132/62; PULSE 78; PULSE 82; RESP 16; RESP 18; O2SAT 99
== END ==
PROVIDERS: Family Provider Family Medicine; PCP Family Medicine; Referring Provider Internal Medicine Gastroenterology; Visit Provider Internal Medicine Gastroenterology
DX: K74.60 Unspecified cirrhosis of liver (principal)
CPT/HCPCS: 49083

== ENCOUNTER → 2019-07-13 10:19 | Outpatient (CLI) | payer MEDICARE, SELFPAY ==
[2019-05-04 11:25] VITALS: BMI 31.4
[2019-06-29 12:06] VITALS: BMI 31.4
--- NOTE | 2019-07-13 10:22 | US_ITS ---
PROCEDURE: Ultrasound guided paracentesis. DATE OF EXAMINATION: July 13, 2019. INDICATION: Female, 73 years old. Ascites. PHYSICIAN: Rigo Britt M.D. TECHNIQUE: The risks, benefits, and alternatives to the procedure were explained to the patient. The specific risks of bleeding, infection, and damage to bowel were detailed and accepted. Witnessed informed consent was obtained. The abdomen was ultrasonographically surveyed. An appropriate pocket of fluid was identified at the right lower quadrant. The skin were cleaned and prepped in the usual sterile fashion. Using ultrasound guidance, the peritoneal cavity was accessed with a 5-Portuguese paracentesis needle/catheter system. The trocar was removed. A total of 5600 ml of harsh-colored fluid were removed from the peritoneal cavity. The catheter was removed and a sterile dressing was applied. The procedure was well tolerated. US/Paracentesis with US IMPRESSION: Ultrasound guided paracentesis. Electronically Signed: Rigo Britt, at 11:13 EST , Service support ,
[2019-07-13 10:43] VITALS: BP 114/54; BP 118/54; PULSE 74; PULSE 75; RESP 16; O2SAT 100; O2SAT 97
[2019-07-13 11:13] VITALS: BP 98/50; PULSE 74; RESP 18; TEMP 36; BMI 31.2
[2019-07-13] MEDS: Albumin Human 25% (100 mL) 25 GM/100 ML BAG IV (12:05)
[2019-07-13 12:06] LABS: Hemoglobin A1c 7.5 % (4.2-6.3)
[2019-07-13 12:18] LABS: PTHIN 753.8 pg/mL (18.4-80.1)
[2019-07-13 13:02] LABS: Vitamin D,25 Hydroxy 18.2 ng/mL (29.95-100.01)
[2019-07-13 13:26] VITALS: BP 108/53; PULSE 76; RESP 18; TEMP 35.9
[2019-07-13 13:30] LABS: ALB/GLOB Ratio 0.8 RATIO (0.9-2.4); AST(SGOT) 22 U/L (15-37); Alanine Aminotransfer ALT/SGPT 39 U/L (13-56); Albumin, Serum 2.4 g/dL (3.2-5.0); Alkaline Phosphatase 146 U/L (45-117); Anion Gap 4 (5-15); BUN 101 mg/dL (7-18); BUN/Creat Ratio 36.2 RATIO (10-20); Calcium,Total 9.4 mg/dL (8.5-10.1); Chloride 111 mmol/L (98-107); Creatinine, Serum 2.79 mg/dL (0.55-1.02); EST Glomerular Filtration Rate 18 mL/min (>60); Est Glom Filt Rate - Afr Amer 21 mL/min (>60); Estimated Creatinine Clearance 14.42 ml/min; Free T3 2.2 pg/mL (2.18-3.98); Globulin 3.2 g/dL (2.2-4.2); Glucose 449 mg/dL (74-106); Phosphorus 3.9 mg/dL (2.5-4.9); Potassium 4.9 mmol/L (3.5-5.1); Protein, Total 5.6 g/dL (6.4-8.2); Sodium Level 139 mmol/L (136-145); T4 Free Direct 0.91 ng/dL (0.76-1.46); Thyroid Stim Hormone (TSH) 7.39 uIU/mL (0.358-3.74)
[2019-07-14 17:17] LABS: Thyroid Peroxidase AB 16 IU/mL (0-34)
== END ==
LOC: US 10:19 → MEDOUTP 11:04
PROVIDERS: Internal Medicine Endocrinology, Diabetes & Metabolism; Family Provider Family Medicine; PCP Family Medicine; Referring Provider Internal Medicine Gastroenterology; Visit Provider Internal Medicine Gastroenterology
DX: K74.60 Unspecified cirrhosis of liver (principal); E21.2 Other hyperparathyroidism; R79.89 Other specified abnormal findings of blood chemistry; E11.9 Type 2 diabetes mellitus without complications
CPT/HCPCS: 96365; 36591; 49083; 80053; 82306; 82330; 83036; 83970; 84100; 84439; 84443; 84481; 86376; P9047; A4216

== ENCOUNTER → 2019-07-20 10:24 | Outpatient (CLI) | payer MEDICARE, SELFPAY ==
[2019-05-04 11:25] VITALS: BMI 31.4
[2019-07-13 11:13] VITALS: BMI 31.2
--- NOTE | 2019-07-20 10:26 | US_ITS ---
PROCEDURE: Ultrasound guided paracentesis. DATE OF EXAMINATION: July 20, 2019. INDICATION: Female, 73 years old. Ascites. PHYSICIAN: Rigo Britt M.D. TECHNIQUE: The risks, benefits, and alternatives to the procedure were explained to the patient. The specific risks of bleeding, infection, and damage to bowel were detailed and accepted. Witnessed informed consent was obtained. The abdomen was ultrasonographically surveyed. An appropriate pocket of fluid was identified at the right lower quadrant. The skin were cleaned and prepped in the usual sterile fashion. Using ultrasound guidance, the peritoneal cavity was accessed with a 5-Malagasy paracentesis needle/catheter system. The trocar was removed. A total of 5900 ml of harsh-colored fluid were removed from the peritoneal cavity. The catheter was removed and a sterile dressing was applied. The procedure was well tolerated. US/Paracentesis with US IMPRESSION: Ultrasound guided paracentesis. Electronically Signed: Rigo Britt, at 12:08 EST , Service support ,
[2019-07-20 10:45] VITALS: BP 101/54; BP 109/54; PULSE 68; RESP 18; O2SAT 100; O2SAT 99
--- NOTE | 2019-07-20 11:13 | US_ITS ---
STUDY: RENAL ULTRASOUND - COMPLETE REASON FOR EXAM: Female, 73 years old. CKD TECHNIQUE: Ultrasound evaluation of the kidneys was performed with real-time and static barbosa-scale imaging. COMPARISON: Comparison is made with prior examination dated January 22, 2018. FINDINGS: RIGHT KIDNEY: Normal location of the right kidney, which is normal in size. The right kidney measures 9.3 cm x 4.3 cm x 4.8 cm. There is a normal cortex of the right kidney. The renal cortex measures 1.2 cm. There is no right renal mass or cyst. Multiple small nonobstructive intrarenal calculi are seen. The largest measures 5 mm x 5 mm x 2 mm. Mildly dilated right renal pelvis. DISTAL RIGHT URETER: There is non-visualization of the distal right ureter. There is no demonstrated right ureterovesical junction calculus. There is no demonstrated right ureteral jet. LEFT KIDNEY: Normal location of the left kidney, which is normal in size. The left kidney measures 9.6 times by 4 cm x 5.1 cm. There is a normal cortex of the left kidney. The renal cortex measures 1.0 cm. There is no left renal mass or cyst. Multiple small intrarenal calculi. These are nonobstructive. The largest measures 6 mm x 3 mm x 4 mm. There is no left hydronephrosis. DISTAL LEFT URETER: There is non-visualization of the distal left ureter. There is no demonstrated left ureterovesical junction calculus. There is no demonstrated left ureteral jet. BLADDER: The distended urinary bladder has a volume of 44 ml. There is a normal wall thickness of the distended urinary bladder. There is no demonstrated mass within the urinary bladder. There are no demonstrated bladder calculi. US/Kidney and Bladder IMPRESSION: Multiple small nonobstructive bilateral intrarenal calculi. Fullness of the right renal pelvis. Electronically Signed: Rigo Britt, at 12:20 EST , Service support ,
[2019-07-20 11:40] VITALS: BP 124/64; PULSE 68; RESP 16; TEMP 37.1; O2SAT 98; BMI 26.5
[2019-07-20] MEDS: Albumin Human 25% (100 mL) 25 GM/100 ML BAG IV (11:46)
== END ==
LOC: US 10:25 → MEDOUTP 11:36
PROVIDERS: Family Provider Family Medicine; PCP Family Medicine; Referring Provider Internal Medicine Gastroenterology; Visit Provider Internal Medicine Gastroenterology
DX: K74.60 Unspecified cirrhosis of liver (principal)
CPT/HCPCS: 96365; 96366; 49083; 76770; P9047; A4216

== ENCOUNTER → 2019-07-27 10:04 | Outpatient (CLI) | payer MEDICARE, SELFPAY ==
[2019-05-04 11:25] VITALS: BMI 31.4
[2019-07-20 11:40] VITALS: BMI 26.5
--- NOTE | 2019-07-27 10:07 | US_ITS ---
PROCEDURE: Ultrasound guided paracentesis. DATE OF EXAMINATION: July 27, 2019. INDICATION: Female, 73 years old. Ascites. PHYSICIAN: Rigo Britt M.D. TECHNIQUE: The risks, benefits, and alternatives to the procedure were explained to the patient. The specific risks of bleeding, infection, and damage to bowel were detailed and accepted. Witnessed informed consent was obtained. The abdomen was ultrasonographically surveyed. An appropriate pocket of fluid was identified at the right lower quadrant. The skin were cleaned and prepped in the usual sterile fashion. Using ultrasound guidance, the peritoneal cavity was accessed with a 5-Tristanian paracentesis needle/catheter system. The trocar was removed. A total of 5250 ml of harsh-colored fluid were removed from the peritoneal cavity. The catheter was removed and a sterile dressing was applied. The procedure was well tolerated. US/Paracentesis with US IMPRESSION: Ultrasound guided paracentesis. Electronically Signed: Rigo Britt, at 11:19 EST , Service support ,
[2019-07-27 10:18] VITALS: BP 105/54; BP 110/53; BP 124/58; BP 124/67; PULSE 71; PULSE 73; PULSE 74; PULSE 78; RESP 18; O2SAT 97; O2SAT 99
[2019-07-27 11:32] VITALS: BP 92/50; PULSE 65; RESP 16; TEMP 36.4; O2SAT 100; BMI 31.8
[2019-07-27] MEDS: Albumin Human 25% (100 mL) 25 GM/100 ML BAG IV (11:48)
[2019-07-27 11:51] LABS: International Normalized Ratio 1.1; Prothrombin Time (Protime)PT. 14.1 SECONDS (11.7-14.9)
[2019-07-27 11:52] LABS: Partial Thromboplast Time 36.8 Seconds (24.1-36.2)
[2019-07-27 12:24] LABS: Anion Gap 4 (5-15); BUN 101 mg/dL (7-18); BUN/Creat Ratio 38.1 RATIO (10-20); Calcium,Total 9.2 mg/dL (8.5-10.1); Chloride 116 mmol/L (98-107); Creatinine, Serum 2.65 mg/dL (0.55-1.02); EST Glomerular Filtration Rate 19 mL/min (>60); Est Glom Filt Rate - Afr Amer 23 mL/min (>60); Estimated Creatinine Clearance 15.18 ml/min; Glucose 127 mg/dL (74-106); Phosphorus 4.3 mg/dL (2.5-4.9); Potassium 4.6 mmol/L (3.5-5.1); Sodium Level 143 mmol/L (136-145)
[2019-07-27 12:47] LABS: PTHIN 711.2 pg/mL (18.4-80.1)
[2019-07-27 12:48] LABS: Vitamin D,25 Hydroxy 18.7 ng/mL (29.95-100.01)
[2019-07-27 13:41] LABS: Color, Urine Yellow (Yellow); Glucose, Dipstick Normal (Normal); Ketone-Dipstick Negative (Negative); Leukocyte Esterase-Dipstick 500 /ul (Negative); Nitrite-Dipstick Negative (Negative); Occult Blood-Urine 10 /ul (Negative); Protein-Dipstick Negative (Negative); Urine Bilirubin Dipstick Negative (Negative); Urine Clarity Sl. Cloudy (Clear); Urine Urobilinogen Normal (Normal)
[2019-07-27 13:54] LABS: Protein, Urine (Random) 15.6 mg/dL (<11.9); Protein:Creat Ratio 124 mg/g CRE (0-200)
== END ==
LOC: US 10:05 → MEDOUTP 11:01
PROVIDERS: Family Provider Family Medicine; PCP Family Medicine; Referring Provider Internal Medicine Gastroenterology; Visit Provider Internal Medicine Gastroenterology
DX: K74.60 Unspecified cirrhosis of liver (principal); M18.4 Other bilateral secondary osteoarthritis of first carpometacarpal joints; E83.52 Hypercalcemia; E21.3 Hyperparathyroidism, unspecified
CPT/HCPCS: 96365; 96366; 36415; 36591; 49083; 80048; 81002; 82306; 82570; 83970; 84100; 84156; 85610; 85730; P9047; A4216

== ENCOUNTER → 2019-08-03 10:01 | Outpatient (CLI) | payer MEDICARE, SELFPAY ==
[2019-05-04 11:25] VITALS: BMI 31.4
[2019-07-27 11:32] VITALS: BMI 31.8
--- NOTE | 2019-08-03 10:04 | US_ITS ---
PROCEDURE: Ultrasound guided paracentesis. DATE OF EXAMINATION: August 03, 2019. INDICATION: Female, 73 years old. Ascites. PHYSICIAN: Rigo Britt M.D. TECHNIQUE: The risks, benefits, and alternatives to the procedure were explained to the patient. The specific risks of bleeding, infection, and damage to bowel were detailed and accepted. Witnessed informed consent was obtained. The abdomen was ultrasonographically surveyed. An appropriate pocket of fluid was identified at the right lower quadrant. The skin were cleaned and prepped in the usual sterile fashion. Using ultrasound guidance, the peritoneal cavity was accessed with a 5-Cymraes paracentesis needle/catheter system. The trocar was removed. A total of 5150 ml of harsh-colored fluid were removed from the peritoneal cavity. The catheter was removed and a sterile dressing was applied. The procedure was well tolerated. US/Paracentesis with US IMPRESSION: Ultrasound guided paracentesis. Electronically Signed: Rigo Britt, at 11:23 EST , Service support ,
[2019-08-03 10:55] VITALS: BP 108/53; BP 116/45; PULSE 64; PULSE 70; RESP 14; RESP 16; TEMP 37.1; O2SAT 100
[2019-08-03 11:27] VITALS: BP 110/70; PULSE 78; RESP 16; TEMP 36.6; O2SAT 98; BMI 28.7
[2019-08-03] MEDS: Albumin Human 25% (100 mL) 25 GM/100 ML BAG IV (12:11)
== END ==
LOC: US 10:01 → MEDOUTP 11:19
PROVIDERS: Family Provider Family Medicine; PCP Family Medicine; Referring Provider Internal Medicine Gastroenterology; Visit Provider Internal Medicine Gastroenterology
DX: K74.60 Unspecified cirrhosis of liver (principal)
CPT/HCPCS: 96365; 96366; 49083; P9047; A4216

== ENCOUNTER → 2019-08-10 10:03 | Outpatient (CLI) | payer MEDICARE, SELFPAY ==
[2019-05-04 11:25] VITALS: BMI 31.4
[2019-08-03 11:27] VITALS: BMI 28.7
--- NOTE | 2019-08-10 10:05 | US_ITS ---
PROCEDURE: Ultrasound guided paracentesis. DATE OF EXAMINATION: August 10, 2019. INDICATION: Female, 73 years old. Ascites. PHYSICIAN: Rigo Britt M.D. TECHNIQUE: The risks, benefits, and alternatives to the procedure were explained to the patient. The specific risks of bleeding, infection, and damage to bowel were detailed and accepted. Witnessed informed consent was obtained. The abdomen was ultrasonographically surveyed. An appropriate pocket of fluid was identified at the right lower quadrant. The skin were cleaned and prepped in the usual sterile fashion. Using ultrasound guidance, the peritoneal cavity was accessed with a 5-Kazakh paracentesis needle/catheter system. The trocar was removed. A total of 7200 ml of harsh-colored fluid were removed from the peritoneal cavity. The catheter was removed and a sterile dressing was applied. The procedure was well tolerated. US/Paracentesis with US IMPRESSION: Ultrasound guided paracentesis. Electronically Signed: Rigo Britt, at 12:01 EST , Service support ,
[2019-08-10 10:32] VITALS: BP 119/60; BP 121/67; BP 131/61; BP 132/75; PULSE 67; PULSE 72; PULSE 74; PULSE 75; RESP 16; RESP 18; TEMP 36.9; O2SAT 94; O2SAT 98; O2SAT 99
[2019-08-10 11:25] VITALS: BP 121/64; PULSE 72; RESP 16; TEMP 36.9; O2SAT 98; BMI 29.6
[2019-08-10] MEDS: Albumin Human 25% (100 mL) 25 GM/100 ML BAG IV (11:35)
[2019-08-10] MEDS: Albumin Human 25% (50 mL) 12.5 GM/50 ML IV.SOLN IV (13:01)
== END ==
PROVIDERS: Family Provider Family Medicine; PCP Family Medicine; Referring Provider Internal Medicine Gastroenterology; Visit Provider Internal Medicine Gastroenterology
DX: K74.60 Unspecified cirrhosis of liver (principal)
CPT/HCPCS: 49083; P9047; A4216

== ENCOUNTER → 2019-08-17 10:07 | Outpatient (CLI) | payer MEDICARE, SELFPAY ==
[2019-05-04 11:25] VITALS: BMI 31.4
[2019-08-10 11:25] VITALS: BMI 29.6
--- NOTE | 2019-08-17 10:17 | US_ITS ---
PROCEDURE: ULTRASOUND GUIDED PARACENTESIS CLINICAL HISTORY: Female, 73 years old. ASCITES CONSENT: Yes Time-Out Called: Yes. Consent form signed: Yes. PT-PTT Levels Checked: Yes. SEDATION: None TECHNIQUE: With ultrasound guidance, a site over the right lower quadrant was marked. After this approximate 5 cc of 2% lidocaine was subcutaneously instilled along the expected needle tract. A 5 Australian Yueh catheter was then inserted 7 cm into the largest pocket of ascites fluid. FINDINGS: FLUID PRE-PROCEDURE There is posterior enhancement. The findings appear anechoic. There is no loculation. Volume measurement: 6790 milliliters of fluid was withdrawn FLUID POST-PROCEDURE Amount of fluid drained: 6790 ml. Because of the large volume of fluid removed the patient was sent to infusion for IV albumin infusion. US/Paracentesis with US IMPRESSION: 6790 cc of ascites with withdrawn from the abdominal cavity and the patient was sent to infusion for IV albumin infusion. Electronically Signed: Miko Ernst, at 19:04 EST Tel , Service support ,
[2019-08-17 10:20] LABS: 24 Hour Urine Protein 76.5 mg/24HR (<150 MG/24HR); 24HR. UA Prot. Total Volume 575 mL; Urine Protein (24 Hour) 13.3 mg/dL (<11.9)
[2019-08-17 10:55] VITALS: BP 103/46; BP 105/54; BP 109/58; BP 119/62; PULSE 68; PULSE 69; PULSE 71; PULSE 72; RESP 16; TEMP 36.9; O2SAT 100; O2SAT 98; O2SAT 99
[2019-08-17 12:04] VITALS: BP 96/45; PULSE 68; RESP 16; TEMP 36.3; O2SAT 100; BMI 31.8
[2019-08-17 12:37] LABS: Anion Gap 6 (5-15); BUN 117 mg/dL (7-18); BUN/Creat Ratio 42.4 RATIO (10-20); Calcium,Total 9.2 mg/dL (8.5-10.1); Chloride 112 mmol/L (98-107); Creatinine, Serum 2.76 mg/dL (0.55-1.02); EST Glomerular Filtration Rate 18 mL/min (>60); Est Glom Filt Rate - Afr Amer 22 mL/min (>60); Estimated Creatinine Clearance 14.57 ml/min; Glucose 205 mg/dL (74-106); Potassium 4.2 mmol/L (3.5-5.1); Sodium Level 141 mmol/L (136-145)
[2019-08-17 12:38] LABS: Creat.Clear Total Volume 575 mL; Creatinine Clearance 18 ml/min (100-200); Creatinine Serum Creat 2.8 mg/dL (0.6-1.0); EST Glomerular Filtration Rate 18 mL/min (>60); Est Glom Filt Rate - Afr Amer 22 mL/min (>60)
[2019-08-17] MEDS: Albumin Human 25% (100 mL) 25 GM/100 ML BAG IV (12:44)
[2019-08-17 14:19] VITALS: BP 100/45; PULSE 76; RESP 18; O2SAT 100
[2019-08-17 15:16] LABS: Microalbumin,Random Urine 18.2 mg/L (NO RANGE EST.); Microalbumin:Creatinine Ratio 16.4 mg/g CRE (<30 mg/g CRE); Protein, Urine (Random) 12.1 mg/dL (<11.9); Protein:Creat Ratio 109 mg/g CRE (0-200)
== END ==
LOC: US 10:07 → MEDOUTP 11:44
PROVIDERS: Internal Medicine; Family Provider Family Medicine; PCP Family Medicine; Referring Provider Internal Medicine Gastroenterology; Visit Provider Internal Medicine Gastroenterology
DX: R18.8 Other ascites (principal); K74.60 Unspecified cirrhosis of liver; N18.4 Chronic kidney disease, stage 4 (severe)
CPT/HCPCS: 96365; 96366; 36592; 49083; 80048; 81050; 82043; 82570; 82575; 84156; P9047; A4216

== ENCOUNTER → 2019-08-24 10:20 | Outpatient (CLI) | payer MEDICARE, SELFPAY ==
[2019-05-04 11:25] VITALS: BMI 31.4
[2019-08-17 12:04] VITALS: BMI 31.8
--- NOTE | 2019-08-24 10:23 | US_ITS ---
PROCEDURE: Ultrasound guided paracentesis. DATE OF EXAMINATION: August 24, 2019. INDICATION: Female, 73 years old. Ascites. PHYSICIAN: Rigo Britt M.D. TECHNIQUE: The risks, benefits, and alternatives to the procedure were explained to the patient. The specific risks of bleeding, infection, and damage to bowel were detailed and accepted. Witnessed informed consent was obtained. The abdomen was ultrasonographically surveyed. An appropriate pocket of fluid was identified at the right lower quadrant. The skin were cleaned and prepped in the usual sterile fashion. Using ultrasound guidance, the peritoneal cavity was accessed with a 5-Belarusian paracentesis needle/catheter system. The trocar was removed. A total of 5900 ml of harsh-colored fluid were removed from the peritoneal cavity. The catheter was removed and a sterile dressing was applied. The procedure was well tolerated. US/Paracentesis with US IMPRESSION: Ultrasound guided paracentesis. Electronically Signed: Rigo Britt, at 12:15 EST , Service support ,
[2019-08-24 10:39] VITALS: BP 140/59; BP 99/63; BP 99/66; PULSE 84; PULSE 88; RESP 16; TEMP 37.2; O2SAT 100
[2019-08-24 11:26] VITALS: BP 116/72; PULSE 67; RESP 16; TEMP 36.8; O2SAT 100; BMI 54.8
[2019-08-24] MEDS: Albumin Human 25% (100 mL) 25 GM/100 ML BAG IV (11:45)
== END ==
LOC: US 10:20 → MEDOUTP 11:13
PROVIDERS: Family Provider Family Medicine; PCP Family Medicine; Referring Provider Internal Medicine Gastroenterology; Visit Provider Internal Medicine Gastroenterology
DX: K74.60 Unspecified cirrhosis of liver (principal); R18.8 Other ascites
CPT/HCPCS: 96365; 96366; 49083; P9047; A4216

== ENCOUNTER → 2019-08-31 10:20 | Outpatient (CLI) | payer MEDICARE, SELFPAY ==
[2019-05-04 11:25] VITALS: BMI 31.4
[2019-08-24 11:26] VITALS: BMI 54.8
--- NOTE | 2019-08-31 10:22 | US_ITS ---
PROCEDURE: Ultrasound guided paracentesis. DATE OF EXAMINATION: August 31, 2019. INDICATION: Female, 73 years old. Ascites. PHYSICIAN: Rigo Britt M.D. TECHNIQUE: The risks, benefits, and alternatives to the procedure were explained to the patient. The specific risks of bleeding, infection, and damage to bowel were detailed and accepted. Witnessed informed consent was obtained. The abdomen was ultrasonographically surveyed. An appropriate pocket of fluid was identified at the right lower quadrant. The skin were cleaned and prepped in the usual sterile fashion. Using ultrasound guidance, the peritoneal cavity was accessed with a 5-Irish paracentesis needle/catheter system. The trocar was removed. A total of 6850 ml of harsh-colored fluid were removed from the peritoneal cavity. The catheter was removed and a sterile dressing was applied. The procedure was well tolerated. US/Paracentesis with US IMPRESSION: Ultrasound guided paracentesis. Electronically Signed: Rigo Britt, at 13:19 EDT , Service support ,
[2019-08-31 10:38] VITALS: BP 104/50; BP 106/85; BP 90/40; BP 94/58; PULSE 62; PULSE 64; PULSE 66; PULSE 67; RESP 16; TEMP 36.9; O2SAT 100; O2SAT 99
[2019-08-31 11:38] VITALS: BP 99/49; PULSE 70; RESP 16; TEMP 36.1; BMI 31.8
[2019-08-31] MEDS: Albumin Human 25% (100 mL) 25 GM/100 ML BAG IV (11:54)
== END ==
LOC: US 10:20 → MEDOUTP 11:26
PROVIDERS: Family Provider Family Medicine; PCP Family Medicine; Referring Provider Internal Medicine Gastroenterology; Visit Provider Internal Medicine Gastroenterology
DX: K74.60 Unspecified cirrhosis of liver (principal); R18.8 Other ascites
CPT/HCPCS: 96365; 96366; 49083; P9047; A4216

== ENCOUNTER → 2019-09-07 10:06 | Outpatient (CLI) | payer MEDICARE, SELFPAY ==
[2019-05-04 11:25] VITALS: BMI 31.4
[2019-08-31 11:38] VITALS: BMI 31.8
--- NOTE | 2019-09-07 10:07 | US_ITS ---
PROCEDURE: Ultrasound guided paracentesis. DATE OF EXAMINATION: September 07, 2019. INDICATION: Female, 73 years old. Ascites. PHYSICIAN: Rigo Britt M.D. TECHNIQUE: The risks, benefits, and alternatives to the procedure were explained to the patient. The specific risks of bleeding, infection, and damage to bowel were detailed and accepted. Witnessed informed consent was obtained. The abdomen was ultrasonographically surveyed. An appropriate pocket of fluid was identified at the left lower quadrant. The skin were cleaned and prepped in the usual sterile fashion. Using ultrasound guidance, the peritoneal cavity was accessed with a 5-Welsh paracentesis needle/catheter system. The trocar was removed. A total of 5750 ml of harsh-colored fluid were removed from the peritoneal cavity. The catheter was removed and a sterile dressing was applied. The procedure was well tolerated. US/Paracentesis with US IMPRESSION: Ultrasound guided paracentesis. Electronically Signed: Rigo Britt, at 11:51 EDT , Service support ,
[2019-09-07 10:50] VITALS: BP 111/54; BP 121/65; BP 122/66; PULSE 64; PULSE 66; RESP 100; RESP 16; RESP 18; TEMP 36.6; O2SAT 100; O2SAT 97
[2019-09-07 11:38] VITALS: BP 122/78; PULSE 78; RESP 16; TEMP 36.6; O2SAT 98; BMI 21.9
[2019-09-07] MEDS: Albumin Human 25% (100 mL) 25 GM/100 ML BAG IV (11:51)
[2019-09-07] MEDS: 0.9% Saline Lock 10 ML Syringe IV (14:00)
[2019-09-07] MEDS: 0.9 % NaCl (Sterile) Posiflush 10 mL IV (14:00)
== END ==
LOC: US 10:06 → MEDOUTP 11:26
PROVIDERS: Family Provider Family Medicine; PCP Family Medicine; Referring Provider Internal Medicine Gastroenterology; Visit Provider Internal Medicine Gastroenterology
DX: K74.60 Unspecified cirrhosis of liver (principal); R18.8 Other ascites
CPT/HCPCS: 96365; 96366; 49083; P9047; A4216

== ENCOUNTER → 2019-09-14 10:06 | Outpatient (CLI) | payer MEDICARE, SELFPAY ==
[2019-05-04 11:25] VITALS: BMI 31.4
[2019-09-07 11:38] VITALS: BMI 21.9
--- NOTE | 2019-09-14 10:09 | US_ITS ---
PROCEDURE: Ultrasound guided paracentesis. DATE OF EXAMINATION: September 14, 2019. INDICATION: Female, 73 years old. Ascites. PHYSICIAN: Rigo Britt M.D. TECHNIQUE: The risks, benefits, and alternatives to the procedure were explained to the patient. The specific risks of bleeding, infection, and damage to bowel were detailed and accepted. Witnessed informed consent was obtained. The abdomen was ultrasonographically surveyed. An appropriate pocket of fluid was identified at the right lower quadrant. The skin were cleaned and prepped in the usual sterile fashion. Using ultrasound guidance, the peritoneal cavity was accessed with a 5-Italian paracentesis needle/catheter system. The trocar was removed. A total of 5600 ml of harsh-colored fluid were removed from the peritoneal cavity. The catheter was removed and a sterile dressing was applied. The procedure was well tolerated. US/Paracentesis with US IMPRESSION: Ultrasound guided paracentesis. Electronically Signed: Rigo Britt, at 11:46 EDT , Service support ,
[2019-09-14 10:25] VITALS: BP 111/52; BP 129/52; PULSE 77; PULSE 80; RESP 16; TEMP 36.9; O2SAT 95; O2SAT 96
[2019-09-14 11:14] VITALS: BP 96/43; PULSE 65; RESP 16; TEMP 36.6; O2SAT 100; BMI 31.8
[2019-09-14] MEDS: Albumin Human 25% (100 mL) 25 GM/100 ML BAG IV (11:51)
[2019-09-14] MEDS: 0.9% Saline Lock 10 ML Syringe IV ×2 (11:51→13:25)
[2019-09-14 13:23] VITALS: BP 98/44; PULSE 73
== END ==
LOC: US 10:07 → MEDOUTP 11:01
PROVIDERS: Family Provider Family Medicine; PCP Family Medicine; Referring Provider Internal Medicine Gastroenterology; Visit Provider Internal Medicine Gastroenterology
DX: K74.60 Unspecified cirrhosis of liver (principal)
CPT/HCPCS: 96365; 96366; 49083; P9047; A4216

== ENCOUNTER → 2019-09-21 10:15 | Outpatient (CLI) | payer MEDICARE, SELFPAY ==
[2019-05-04 11:25] VITALS: BMI 31.4
[2019-09-14 11:14] VITALS: BMI 31.8
--- NOTE | 2019-09-21 10:18 | US_ITS ---
PROCEDURE: Ultrasound guided paracentesis. DATE OF EXAMINATION: September 21, 2019. INDICATION: Female, 73 years old. Ascites. PHYSICIAN: Rigo Britt M.D. TECHNIQUE: The risks, benefits, and alternatives to the procedure were explained to the patient. The specific risks of bleeding, infection, and damage to bowel were detailed and accepted. Witnessed informed consent was obtained. The abdomen was ultrasonographically surveyed. An appropriate pocket of fluid was identified at the right lower quadrant. The skin were cleaned and prepped in the usual sterile fashion. Using ultrasound guidance, the peritoneal cavity was accessed with a 5-Kenyan paracentesis needle/catheter system. The trocar was removed. A total of 4500 ml of harsh-colored fluid were removed from the peritoneal cavity. The catheter was removed and a sterile dressing was applied. The procedure was well tolerated. US/Paracentesis with US IMPRESSION: Ultrasound guided paracentesis. Electronically Signed: Rigo Britt, at 11:19 EDT , Service support ,
[2019-09-21 10:32] VITALS: BP 109/51; BP 116/54; BP 130/60; PULSE 65; PULSE 73; RESP 16; RESP 18; TEMP 36.7; O2SAT 100; O2SAT 98; O2SAT 99
== END ==
PROVIDERS: Family Provider Family Medicine; PCP Family Medicine; Referring Provider Internal Medicine Gastroenterology; Visit Provider Internal Medicine Gastroenterology
DX: K74.60 Unspecified cirrhosis of liver (principal); J18.9 Pneumonia, unspecified organism
CPT/HCPCS: 49083

== ENCOUNTER → 2019-09-28 10:10 | Outpatient (CLI) | payer MEDICARE, SELFPAY ==
[2019-05-04 11:25] VITALS: BMI 31.4
[2019-09-14 11:14] VITALS: BMI 31.8
[2019-09-28 09:53] VITALS: BP 120/49; BP 93/51; PULSE 61; RESP 16; TEMP 37.1
--- NOTE | 2019-09-28 10:37 | US_ITS ---
PROCEDURE: Ultrasound guided paracentesis. DATE OF EXAMINATION: September 28, 2019. INDICATION: Female, 73 years old. Ascites. PHYSICIAN: Rigo Britt M.D. TECHNIQUE: The risks, benefits, and alternatives to the procedure were explained to the patient. The specific risks of bleeding, infection, and damage to bowel were detailed and accepted. Witnessed informed consent was obtained. The abdomen was ultrasonographically surveyed. An appropriate pocket of fluid was identified at the right lower quadrant. The skin were cleaned and prepped in the usual sterile fashion. Using ultrasound guidance, the peritoneal cavity was accessed with a 5-Belarusian paracentesis needle/catheter system. The trocar was removed. A total of 5950 ml of harsh color fluid were removed from the peritoneal cavity. The catheter was removed and a sterile dressing was applied. The procedure was well tolerated. US/Paracentesis with US IMPRESSION: Ultrasound guided paracentesis. Electronically Signed: Rigo Britt, at 12:53 EDT , Service support ,
[2019-09-28 11:47] VITALS: BP 122/52; PULSE 78; RESP 16; TEMP 36.9; O2SAT 98; BMI 29.9
[2019-09-28 12:12] VITALS: BP 77/43; PULSE 63; RESP 16
[2019-09-28] MEDS: Albumin Human 25% (100 mL) 25 GM/100 ML BAG IV (12:20)
[2019-09-28] MEDS: 0.9% Saline Lock 10 ML Syringe IV ×2 (12:22→13:54)
[2019-09-28 13:55] VITALS: BP 97/53; PULSE 67; RESP 16; O2SAT 100
== END ==
LOC: US 10:11 → MEDOUTP 11:27
PROVIDERS: Family Provider Family Medicine; PCP Family Medicine; Referring Provider Internal Medicine Gastroenterology; Visit Provider Internal Medicine Gastroenterology
DX: K74.60 Unspecified cirrhosis of liver (principal); R18.8 Other ascites
CPT/HCPCS: 96365; 96366; 49083; P9047; A4216

== ENCOUNTER → 2019-10-05 10:20 | Outpatient (CLI) | payer MEDICARE, SELFPAY ==
[2019-05-04 11:25] VITALS: BMI 31.4
[2019-09-28 11:47] VITALS: BMI 29.9
--- NOTE | 2019-10-05 10:25 | US_ITS ---
PROCEDURE: ULTRASOUND GUIDED PARACENTESIS CLINICAL HISTORY: Female, 73 years old. ASCITES CONSENT: The risks, benefits and alternatives to the procedure were explained to the patient, and the patient agreed to the procedure and signed the consent. 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 PROCEDURE/TECHNIQUE: The risks, benefits, and alternatives to the procedure were explained to patient, and the patient agreed to the procedure and signed a consent form for the procedure. TECHNIQUE: Under the ultrasound guidance using sterile technique and after infiltration of the skin and subcutaneous soft tissues with 10 mL of lidocaine 1% a 5 Maori drainage catheter is introduced in the lower part of the abdomen. 6900 mL of fluid were removed sample sent to lab for evaluation. The patient tolerated the procedure there was no immediate complication. FINDINGS: FLUID PRE-PROCEDURE There is posterior enhancement. The findings appear anechoic. There is no loculation. FLUID POST-PROCEDURE Amount of fluid drained: 6900 ml. US/Paracentesis with US IMPRESSION: Successful ultrasound-guided paracentesis. Electronically Signed: Samra Martinez, at 13:42 EDT Tel , Service support ,
[2019-10-05 10:49] VITALS: BP 103/66; BP 108/63; BP 128/68; PULSE 86; PULSE 90; PULSE 98; RESP 14; RESP 16; TEMP 37.2
[2019-10-05 11:59] LABS: Absolute Neutrophil Count 2.3 X10^3/uL (2.0-7.7); Basophil# 0.02 X10^3/uL; Basophil% 0.7 % (0-1); Eosinophil# 0.14 X10^3/uL; Eosinophils% 4.8 % (0-5); Hematocrit 27.8 % (37-47); Hemoglobin 9.1 g/dL (12.0-15.0); Lymphocyte % 10.2 % (19-41); Mean Corp Hgb Conc 32.7 g/dL (32-36); Mean Corpuscular Hgb 31.4 pg (27.0-32.0); Mean Corpuscular Volume 95.9 fL (81-99); Mean Platelet Vol. 10.3 fl (6.2-12.0); Monocyte# 0.21 X10^3/uL; Monocyte% 7.2 % (0-10); NRBC Flagged by Analyzer 0 % (0-5); Neutrophil # 2.25 X10^3/uL (2.7-7.7); Neutrophil % 76.8 % (47-70); POSITIVE COUNT YES; POSITIVE DIFFERENTIAL YES; Platelet Count 55 K/mm3 (150-450); RBC Distribution Width CV 15.2 % (11.6-14.6); RBC Distribution Width SD 53.2 fl (35.1-43.9); White Blood Count 2.9 K/mm3 (4.4-11.0)
[2019-10-05 12:00] LABS: Differential Indicated SCAN CRITERIA MET
[2019-10-05 12:15] VITALS: BP 131/53; PULSE 89; RESP 16; TEMP 36.4; O2SAT 100; BMI 32.5
[2019-10-05 12:18] LABS: Ferritin 262 ng/mL (8-252); Iron 87 ug/dL (50-170); Iron Binding Capacity,Total 226 ug/dL (250-450); PERCENT IRON SATURATION 38.5 % (15.0-55.0)
[2019-10-05] MEDS: Albumin Human 25% (100 mL) 25 GM/100 ML BAG IV (12:20)
[2019-10-05 12:25] LABS: Differential Comment SCANNED; Platelet Estimate MKD DEC (ADEQ)
[2019-10-05] MEDS: Albumin Human 25% (50 mL) 12.5 GM/50 ML IV.SOLN IV (13:42)
== END ==
LOC: US 10:21 → MEDOUTP 11:29
PROVIDERS: Family Provider Family Medicine; PCP Family Medicine; Referring Provider Internal Medicine Gastroenterology; Visit Provider Internal Medicine Gastroenterology
DX: K74.60 Unspecified cirrhosis of liver (principal); R18.8 Other ascites
CPT/HCPCS: 96365; 96366; 49083; 82728; 83540; 83550; 85025; P9047; A4216

== ENCOUNTER → 2019-10-12 10:16 | Outpatient (CLI) | payer MEDICARE, SELFPAY ==
[2019-05-04 11:25] VITALS: BMI 31.4
[2019-10-05 12:15] VITALS: BMI 32.5
--- NOTE | 2019-10-12 10:17 | US_ITS ---
PROCEDURE: Ultrasound guided paracentesis. DATE OF EXAMINATION: October 12, 2019. INDICATION: Female, 73 years old. Ascites. PHYSICIAN: Rigo Britt M.D. TECHNIQUE: The risks, benefits, and alternatives to the procedure were explained to the patient. The specific risks of bleeding, infection, and damage to bowel were detailed and accepted. Witnessed informed consent was obtained. The abdomen was ultrasonographically surveyed. An appropriate pocket of fluid was identified at the left lower quadrant. The skin were cleaned and prepped in the usual sterile fashion. Using ultrasound guidance, the peritoneal cavity was accessed with a 5-Indonesian paracentesis needle/catheter system. The trocar was removed. A total of 6000 ml of harsh-colored fluid were removed from the peritoneal cavity. The catheter was removed and a sterile dressing was applied. The procedure was well tolerated. US/Paracentesis with US IMPRESSION: Ultrasound guided paracentesis. Electronically Signed: Rigo Britt, at 11:55 EDT , Service support ,
[2019-10-12 10:49] VITALS: BP 105/54; BP 120/62; PULSE 59; PULSE 61; RESP 16; TEMP 36.9; O2SAT 100
[2019-10-12 11:32] VITALS: BP 101/48; PULSE 62; RESP 16; TEMP 36.4; O2SAT 98; BMI 31.1
[2019-10-12] MEDS: Albumin Human 25% (50 mL) 12.5 GM/50 ML IV.SOLN IV (12:01)
[2019-10-12] MEDS: 0.9 % NaCl (Sterile) Posiflush 10 mL IV (14:00)
== END ==
LOC: US 10:17 → ONC 11:29
PROVIDERS: Family Provider Family Medicine; PCP Family Medicine; Referring Provider Internal Medicine Gastroenterology; Visit Provider Internal Medicine Gastroenterology
DX: K74.60 Unspecified cirrhosis of liver (principal)
CPT/HCPCS: 96365; 49083; P9047

== ENCOUNTER → 2019-10-19 10:26 | Outpatient (CLI) | payer MEDICARE, SELFPAY ==
[2019-05-04 11:25] VITALS: BMI 31.4
[2019-10-12 11:32] VITALS: BMI 31.1
--- NOTE | 2019-10-19 10:28 | US_ITS ---
PROCEDURE: Ultrasound guided paracentesis. DATE OF EXAMINATION: October 19, 2019. INDICATION: Female, 73 years old. Ascites. PHYSICIAN: Rigo Britt M.D. TECHNIQUE: The risks, benefits, and alternatives to the procedure were explained to the patient. The specific risks of bleeding, infection, and damage to bowel were detailed and accepted. Witnessed informed consent was obtained. The abdomen was ultrasonographically surveyed. An appropriate pocket of fluid was identified at the right lower quadrant. The skin were cleaned and prepped in the usual sterile fashion. Using ultrasound guidance, the peritoneal cavity was accessed with a 5-Yi paracentesis needle/catheter system. The trocar was removed. A total of 5150 ml of harsh-colored fluid were removed from the peritoneal cavity. The catheter was removed and a sterile dressing was applied. The procedure was well tolerated. US/Paracentesis with US IMPRESSION: Ultrasound guided paracentesis. Electronically Signed: Rigo Britt, at 11:30 EDT , Service support ,
[2019-10-19 10:44] VITALS: BP 121/58; BP 126/66; BP 132/64; BP 138/72; PULSE 60; PULSE 62; PULSE 68; PULSE 72; RESP 16; RESP 18; TEMP 36.9; O2SAT 100; O2SAT 96; O2SAT 97; O2SAT 98
[2019-10-19 11:35] VITALS: BP 87/48; PULSE 66; RESP 16; TEMP 36.6; O2SAT 99; BMI 31.2
[2019-10-19] MEDS: 0.9 % NaCl (Sterile) Posiflush 10 mL IV (11:39)
[2019-10-19] MEDS: Albumin Human 25% (50 mL) 12.5 GM/50 ML IV.SOLN IV (11:40)
[2019-10-19] MEDS: 0.9% NaCl VAD Flush IV (12:52)
[2019-10-19 12:55] VITALS: BP 104/54; PULSE 64; RESP 16
== END ==
LOC: US 10:29 → MEDOUTP 11:17
PROVIDERS: Family Provider Family Medicine; PCP Family Medicine; Referring Provider Internal Medicine Gastroenterology; Visit Provider Internal Medicine Gastroenterology
DX: K74.60 Unspecified cirrhosis of liver (principal); R18.8 Other ascites
CPT/HCPCS: 96365; 49083; P9047; A4216

== ENCOUNTER → 2019-10-26 10:22 | Outpatient (CLI) | payer MEDICARE, SELFPAY ==
[2019-05-04 11:25] VITALS: BMI 31.4
[2019-10-19 11:35] VITALS: BMI 31.2
--- NOTE | 2019-10-26 10:27 | US_ITS ---
PROCEDURE: Ultrasound guided paracentesis. DATE OF EXAMINATION: October 26, 2019. INDICATION: Female, 73 years old. Ascites. PHYSICIAN: Rigo Britt M.D. TECHNIQUE: The risks, benefits, and alternatives to the procedure were explained to the patient. The specific risks of bleeding, infection, and damage to bowel were detailed and accepted. Witnessed informed consent was obtained. The abdomen was ultrasonographically surveyed. An appropriate pocket of fluid was identified at the left lower quadrant. The skin were cleaned and prepped in the usual sterile fashion. Using ultrasound guidance, the peritoneal cavity was accessed with a 5-Moldovan paracentesis needle/catheter system. The trocar was removed. A total of 5350 ml of harsh-colored fluid were removed from the peritoneal cavity. The catheter was removed and a sterile dressing was applied. The procedure was well tolerated. US/Paracentesis with US IMPRESSION: Ultrasound guided paracentesis. Electronically Signed: Rigo Britt, at 11:30 EDT , Service support ,
[2019-10-26 10:54] VITALS: BP 101/47; BP 98/49; PULSE 67; PULSE 70; RESP 14; RESP 16; TEMP 37.1; O2SAT 94; O2SAT 99
[2019-10-26 11:26] VITALS: BP 110/67; PULSE 78; RESP 16; TEMP 36.8; O2SAT 99; BMI 29.2
[2019-10-26] MEDS: 0.9 % NaCl (Sterile) Posiflush 10 mL IV (11:50)
[2019-10-26] MEDS: Albumin Human 25% (50 mL) 12.5 GM/50 ML IV.SOLN IV (11:50)
[2019-10-26] MEDS: 0.9% Saline Lock 10 ML Syringe IV (12:36)
== END ==
LOC: US 10:23 → MEDOUTP 11:17
PROVIDERS: Family Provider Family Medicine; PCP Family Medicine; Referring Provider Internal Medicine Gastroenterology; Visit Provider Internal Medicine Gastroenterology
DX: K74.60 Unspecified cirrhosis of liver (principal); R18.8 Other ascites
CPT/HCPCS: 96365; 49083; P9047; A4216

== ENCOUNTER → 2019-11-02 10:19 | Outpatient (CLI) | payer MEDICARE, SELFPAY ==
[2019-05-04 11:25] VITALS: BMI 31.4
[2019-10-26 11:26] VITALS: BMI 29.2
--- NOTE | 2019-11-02 10:23 | US_ITS ---
PROCEDURE: Ultrasound guided paracentesis. DATE OF EXAMINATION: November 02, 2019. INDICATION: Female, 74 years old. Ascites. PHYSICIAN: Rigo Britt M.D. TECHNIQUE: The risks, benefits, and alternatives to the procedure were explained to the patient. The specific risks of bleeding, infection, and damage to bowel were detailed and accepted. Witnessed informed consent was obtained. The abdomen was ultrasonographically surveyed. An appropriate pocket of fluid was identified at the right lower quadrant. The skin were cleaned and prepped in the usual sterile fashion. Using ultrasound guidance, the peritoneal cavity was accessed with a 5-Togolese paracentesis needle/catheter system. The trocar was removed. A total of 5450 ml of harsh-colored fluid were removed from the peritoneal cavity. The catheter was removed and a sterile dressing was applied. The procedure was well tolerated. US/Paracentesis with US IMPRESSION: Ultrasound guided paracentesis. Electronically Signed: Rigo Britt, at 11:45 EDT , Service support ,
[2019-11-02 10:55] VITALS: BP 100/62; BP 106/56; BP 106/58; PULSE 65; PULSE 66; PULSE 68; RESP 16; TEMP 36.8; O2SAT 100; O2SAT 99
[2019-11-02 11:30] VITALS: BP 91/49; PULSE 62; RESP 16; TEMP 36.7; O2SAT 100; BMI 30.7
[2019-11-02] MEDS: 0.9 % NaCl (Sterile) Posiflush 10 mL IV (11:30)
[2019-11-02] MEDS: Albumin Human 25% (50 mL) 12.5 GM/50 ML IV.SOLN IV (11:35)
[2019-11-02 12:21] VITALS: BP 108/52; PULSE 63; RESP 16; TEMP 36.4; O2SAT 100
[2019-11-02] MEDS: 0.9% NaCl VAD Flush IV (12:26)
== END ==
LOC: US 10:20 → MEDOUTP 11:23
PROVIDERS: Family Provider Family Medicine; PCP Family Medicine; Referring Provider Internal Medicine Gastroenterology; Visit Provider Internal Medicine Gastroenterology
DX: K74.60 Unspecified cirrhosis of liver (principal); R18.8 Other ascites
CPT/HCPCS: 96365; 49083; P9047; A4216

== ENCOUNTER → 2019-11-09 10:26 | Outpatient (CLI) | payer MEDICARE, SELFPAY ==
[2019-05-04 11:25] VITALS: BMI 31.4
[2019-11-02 11:30] VITALS: BMI 30.7
--- NOTE | 2019-11-09 10:30 | US_ITS ---
PROCEDURE: ULTRASOUND GUIDED PARACENTESIS CLINICAL HISTORY: Female, 74 years old. ASCITES CONSENT: The risks, benefits and alternatives to the procedure were explained to the patient, and the patient agreed to the procedure and signed the consent. 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 PROCEDURE/TECHNIQUE: The risks, benefits, and alternatives to the procedure were explained to patient, and the patient agreed to the procedure and signed a consent form for the procedure. TECHNIQUE: Under the ultrasound guidance using sterile technique and after infiltration of the skin and subcutaneous soft tissues with 10 mL of lidocaine 1% a 5 Luxembourgish drainage catheter is introduced in the lower part of the abdomen. 4450 mL of fluid were removed sample sent to lab for evaluation. The patient tolerated the procedure there was no immediate complication. FINDINGS: FLUID PRE-PROCEDURE There is posterior enhancement. The findings appear anechoic. There is no loculation. FLUID POST-PROCEDURE Amount of fluid drained: 4450 ml. US/Paracentesis with US IMPRESSION: Successful ultrasound-guided paracentesis. Electronically Signed: Samra Martinez, at 15:39 EDT Tel , Service support ,
[2019-11-09 10:47] VITALS: BP 104/50; BP 121/69; BP 96/46; PULSE 26; PULSE 58; PULSE 60; RESP 14; RESP 16; TEMP 36.9; O2SAT 100; O2SAT 96; O2SAT 99
== END ==
PROVIDERS: Family Provider Family Medicine; PCP Family Medicine; Referring Provider Internal Medicine Gastroenterology; Visit Provider Internal Medicine Gastroenterology
DX: K74.60 Unspecified cirrhosis of liver (principal); R18.8 Other ascites
CPT/HCPCS: 49083

== ENCOUNTER → 2019-11-16 10:22 | Outpatient (CLI) | payer MEDICARE, SELFPAY ==
[2019-05-04 11:25] VITALS: BMI 31.4
[2019-11-02 11:30] VITALS: BMI 30.7
--- NOTE | 2019-11-16 10:29 | US_ITS ---
PROCEDURE: Ultrasound guided paracentesis. DATE OF EXAMINATION: November 16, 2019.. INDICATION: Female, 74 years old. Ascites. PHYSICIAN: Rigo Britt M.D. TECHNIQUE: The risks, benefits, and alternatives to the procedure were explained to the patient. The specific risks of bleeding, infection, and damage to bowel were detailed and accepted. Witnessed informed consent was obtained. The abdomen was ultrasonographically surveyed. An appropriate pocket of fluid was identified at the left lower quadrant. The skin were cleaned and prepped in the usual sterile fashion. Using ultrasound guidance, the peritoneal cavity was accessed with a 5-Somali paracentesis needle/catheter system. The trocar was removed. A total of 4800 ml of harsh-colored fluid were removed from the peritoneal cavity. The catheter was removed and a sterile dressing was applied. The procedure was well tolerated. US/Paracentesis with US IMPRESSION: Ultrasound guided paracentesis. Electronically Signed: Rigo Britt, at 12:07 EDT , Service support ,
[2019-11-16 10:40] VITALS: BP 121/69; BP 122/67; BP 122/70; PULSE 80; PULSE 85; PULSE 88; RESP 16; RESP 18; TEMP 36.7; O2SAT 100; O2SAT 93; O2SAT 99
== END ==
PROVIDERS: Family Provider Family Medicine; PCP Family Medicine; Referring Provider Internal Medicine Gastroenterology; Visit Provider Internal Medicine Gastroenterology
DX: K74.60 Unspecified cirrhosis of liver (principal)
CPT/HCPCS: 49083

== ENCOUNTER → 2019-11-23 10:26 | Outpatient (CLI) | payer MEDICARE, SELFPAY ==
[2019-05-04 11:25] VITALS: BMI 31.4
[2019-11-02 11:30] VITALS: BMI 30.7
--- NOTE | 2019-11-23 10:32 | US_ITS ---
PROCEDURE: Ultrasound guided paracentesis. DATE OF EXAMINATION: November 23, 2019. INDICATION: Female, 74 years old. Ascites. PHYSICIAN: Rigo Britt M.D. TECHNIQUE: The risks, benefits, and alternatives to the procedure were explained to the patient. The specific risks of bleeding, infection, and damage to bowel were detailed and accepted. Witnessed informed consent was obtained. The abdomen was ultrasonographically surveyed. An appropriate pocket of fluid was identified at the right lower quadrant. The skin were cleaned and prepped in the usual sterile fashion. Using ultrasound guidance, the peritoneal cavity was accessed with a 5-Guyanese paracentesis needle/catheter system. The trocar was removed. A total of 4650 ml of harsh-colored fluid were removed from the peritoneal cavity. The catheter was removed and a sterile dressing was applied. The procedure was well tolerated. US/Paracentesis with US IMPRESSION: Ultrasound guided paracentesis. Electronically Signed: Rigo Britt, at 12:04 EDT , Service support ,
[2019-11-23 11:13] VITALS: BP 102/57; BP 106/54; BP 74/37; PULSE 56; PULSE 58; RESP 16; TEMP 36.9; O2SAT 97; O2SAT 99
[2019-11-23] MEDS: Albumin Human 25% (50 mL) 12.5 GM/50 ML IV.SOLN IV (12:10)
[2019-11-23 12:15] VITALS: BP 65/45; PULSE 52; RESP 20; TEMP 36.7; BMI 31.1
[2019-11-23 12:16] LABS: Hematocrit 27.3 % (37-47); Hemoglobin 9.3 g/dL (12.0-15.0); Mean Corp Hgb Conc 34.1 g/dL (32-36); Mean Corpuscular Volume 96.8 fL (81-99); POSITIVE COUNT YES; Platelet Count 76 K/mm3 (150-450); RBC Distribution Width CV 17.9 % (11.6-14.6); RBC Distribution Width SD 62.9 fl (35.1-43.9); Red Blood Count 2.82 M/mm3 (4.2-5.4); White Blood Count 5.1 K/mm3 (4.4-11.0)
[2019-11-23 12:18] LABS: Scan Indicated on CBC? Y/N YES- FLAGS NOTED
[2019-11-23 12:32] LABS: Vitamin D,25 Hydroxy 12.8 ng/mL
[2019-11-23 12:36] LABS: Hemoglobin A1c 8.7 % (3.8-5.6)
[2019-11-23 12:37] VITALS: BP 81/47; PULSE 52; RESP 20
[2019-11-23 13:00] VITALS: BP 69/42; PULSE 52; RESP 16; O2SAT 97
[2019-11-23 13:11] LABS: PTHIN 1306.6 pg/mL (18.4-80.1)
[2019-11-23 13:17] LABS: ALB/GLOB Ratio 0.7 RATIO (0.9-2.4); AST(SGOT) 25 U/L (15-37); Alanine Aminotransfer ALT/SGPT 53 U/L (13-56); Albumin, Serum 2.4 g/dL (3.2-5.0); Alkaline Phosphatase 142 U/L (45-117); Anion Gap 6 (5-15); BUN 108 mg/dL (7-18); Calcium,Total 9.5 mg/dL (8.5-10.1); Chloride 105 mmol/L (98-107); Cholesterol 159 mg/dL (200); Creatinine, Serum 2.77 mg/dL (0.55-1.02); EST Glomerular Filtration Rate 18 mL/min (>60); Est Glom Filt Rate - Afr Amer 22 mL/min (>60); Estimated Creatinine Clearance 14.31 ml/min; Globulin 3.3 g/dL (2.2-4.2); Glucose 151 mg/dL (74-106); High Density Lipoprotein 49 mg/dL; Phosphorus 4.9 mg/dL (2.5-4.9); Potassium 5.8 mmol/L (3.5-5.1); Protein, Total 5.7 g/dL (6.4-8.2); Sodium Level 134 mmol/L (136-145); Triglycerides 105 mg/dL; Very Low Density Lipoprotein 21 mg/dL (5-40)
== END ==
LOC: US 10:28 → MEDOUTP 11:32
PROVIDERS: Family Provider Family Medicine; PCP Family Medicine; Referring Provider Internal Medicine Gastroenterology; Visit Provider Internal Medicine Gastroenterology
DX: K74.60 Unspecified cirrhosis of liver (principal); N18.4 Chronic kidney disease, stage 4 (severe); E11.22 Type 2 diabetes mellitus with diabetic chronic kidney disease; E21.3 Hyperparathyroidism, unspecified; E03.9 Hypothyroidism, unspecified; Z79.4 Long term (current) use of insulin
CPT/HCPCS: 36415; 49083; 80053; 80061; 81001; 82306; 82330; 82570; 83036; 83970; 84100; 84156; 84443; 85027; P9047

== ENCOUNTER 2019-11-23 13:37 | Observation (INO) | payer MEDICARE, SELFPAY ==
[2019-11-23] VITALS (11 sets, daily range): BP systolic 76–110; BP diastolic 40–65; PULSE 55–66; RESP 12–18; TEMP 35.7–37.2; O2SAT 95–100; BMI 31.1; BMI 29.4
--- NOTE | 2019-11-23 14:22 | ED.VISSUMM ---
- ER Visit Summary Date of Service: 11/23/19 Chief Complaint: [Low blood pressure ] History of Present Illness: The patient is a 74 F [presents to the emergency department with complaint of low blood pressure that was noted today after her paracentesis. Patient has history of cirrhosis of the liver and frequent paracentesis once a week. Today they took off 4650 mL's of fluid. Patient was noted to be hypotensive and then was ordered to receive albumin which she normally only gets if they take off more than 5000 mL. Patient denies feeling lightheaded or dizzy. She does feel little bit fatigued. She denies recent illness. She denies fever, cough, vomiting, or diarrhea. She denies any blood in her stool or black tarry stool. Patient has history of prior TIAs, diabetes, hypertension, history of breast cancer, ascites, pancytopenia, hypercalcemia, and hypothyroidism. Being that patient's blood pressure did not normalize she was sent to the emergency department.] Physical Examination: [HEENT-PERRLA, EOMI. Cranial nerves II through XII grossly intact. TMs clear. Mucous membranes moist. No adenopathy. Cardiovascular-regular rate and rhythm without murmur or ectopy Lungs-clear to auscultation, chest wall stable without crepitus or subcu emphysema Abdomen-normoactive bowel sounds, soft, nontender, no rebound or rigidity, no peritoneal signs. Extremities-intact ?4, normal range of motion, normal pulses, atraumatic] Test Results: [CBC with differential obtained showed a white count of 5.1, hemoglobin 9.3, hematocrit 27, platelets 76. Chemistries unremarkable. Creatinine was elevated 2.77. TSH was 270. PTH was 1306.] Emergency Department Course and Treatment: [Patient had access of port in her right chest and was given 500 cc fluid bolus. Placed on youth nutritional monitor.] Patient's blood pressure initially responded and actually had a reading of 108 systolic at 1 point and her second orthostatic vital signs were essentially negative and patient was asymptomatic. Patient received a total of a liter of fluid however on repeat exam her blood pressure now 77 systolic. Patient continues to be asymptomatic. Treatment Plan: [Admit for gentle hydration and observation] Disposition: [Admit] Impression: [Hypotension status post paracentesis] This note was generated with [employer] dictation software. It may contain incorrect words, spelling, and punctuation that were not noted in review of the chart prior to signing ED Disposition - Plan for ED Patient: Referrals: Nicola Bay MD [Primary Care Provider] -
--- NOTE | 2019-11-23 14:29 | EKG12_ITS ---
Test Reason : HYPOTENSION Blood Pressure : / mmHG Vent. Rate : 055 BPM Atrial Rate : 055 BPM P-R Int : 166 ms QRS Dur : 094 ms QT Int : 456 ms P-R-T Axes : 049 018 046 degrees QTc Int : 436 ms Sinus bradycardia Otherwise normal ECG Confirmed by NICOLA SHAW, HAILEY ([id number]), order editor JOSE JONES ([id number]) on 11/27/2019 1:34:00 PM Referred By: [facility] Confirmed By:HAILEY PETERSEN MD
--- NOTE | 2019-11-23 16:34 | HP.PCM_ITS ---
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 Status: Inactive (4) History of breast cancer Status: Chronic (5) Dependent edema Status: Chronic (6) Ascites Status: Chronic (7) CKD (chronic kidney disease) stage 4, GFR 15-29 ml/min Status: Chronic (8) Pancytopenia Status: Chronic (9) Hypercalcemia Status: Inactive (10) TIA (transient ischemic attack) Status: Chronic (11) DM2 (diabetes mellitus, type 2) Status: Chronic (12) Non-pressure chronic ulcer of other part of right lower leg with fat layer exposed Status: Inactive (13) Benign essential HTN Status: Chronic History of Present Illness Date of Admission: 11/23/19 Chief Complaint: Hypotension. The patient is a 74 year old F who presents to emergency room due to hypotension following paracentesis. Patient underwent 4.6 removal of fluid during paracentesis. She reports this is a typical amount for her. She undergoes wee kly paracentesis secondary to GUEVARA with cirrhosis. Her blood pressure was reported to be 70s systolically which has fluctuated up and down since that time. She did receive albumin following paracentesis and also 1 L of IV fluids. Her blood pressure is now stable. She is asymptomatic. She denies lightheadedness or dizziness upon standing. Orthostatics initially positive however repeat improved following IV fluids. Past Medical History Past Medical History (Chronic Problems): Chronic Problems (Last Updated 04/14/19 @ 19:[address] Michela Siddiqui DO) Venous insufficiency (chronic) (peripheral) (Chronic) History of breast cancer (Chronic) Dependent edema (Chronic) Ascites (Chronic) CKD (chronic kidney disease) stage 4, GFR 15-29 ml/min (Chronic) Pancytopenia (Chronic) TIA (transient ischemic attack) (Chronic) DM2 (diabetes mellitus, type 2) (Chronic) Benign essential HTN (Chronic) Medical History: Medical History (Last Updated 04/14/19 @ 19:[address] Michela Siddiqui DO) Venous insufficiency (chronic) (peripheral) (Chronic) I87.2 History of breast cancer (Chronic) Z85.3 Ascites (Chronic) R18.8 CKD (chronic kidney disease) stage 4, GFR 15-29 ml/min (Chronic) N18.4 TIA (transient ischemic attack) (Chronic) DM2 (diabetes mellitus, type 2) (Chronic) E11.9 Benign essential HTN (Chronic) I10 Allergies clarithromycin [From Biaxin] Allergy (Verified 11/23/19 13:38) Unknown iodine Allergy (Verified 11/23/19 13:38) Unknown Home Medications: Ambulatory Orders Medication Instructions Recorded Atenolol [Tenormin (beta geraldine)] 50 mg PO BID 08/08/13 Furosemide [Lasix] 40 mg PO QODAY 01/22/18 Insulin Glargine,Hum.rec.anlog 36 unit SQ QHS 08/11/18 [Lantus] Alendronate Sodium [Fosamax] 70 mg PO FR 11/23/19 Cholecalciferol (VIT D3) [Vitamin 1,000 unit PO DAILY 11/23/19 D] Insulin Glargine,Hum.rec.anlog 26 unit SQ DAILY 11/23/19 [Lantus Solostar] Levothyroxine Sodium [Synthroid] 25 mcg PO DAILY 11/23/19 Surgical History: Surgical History (Last Reviewed 04/14/19 @ 04:[address] Arie Rosas MD) History of appendectomy Z90.49 History of cataract extraction Z98.49 History of colonoscopy Z98.890 History of extraction of renal calculus Z98.890, Z87.442 History of right mastectomy Z90.11 history port insertion Surgical History: mastectomy, - - Patient has had a right mastectomy and a ppendectomy. She is a Ab0. 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 DESIGN ARCHITECT history Lives: Alone Smoking Status: Never smoker Alcohol: None Drugs: None - *Family History Sibling Family History: Family History (Last Reviewed 11/23/19 @ 16:38 by TONI WeiC) Father CHF (congestive heart failure) Heart disease Mother CVA (cerebral vascular accident) History Items: Cancer Review of Systems Constitutional: Denies: Chills, Fever, Weight Change HEENT: Denies: Head Aches, Sinus Congestion, Sinus Drainage Cardiovascular: Denies: Chest Pain, Palpitations Respiratory: Denies: Cough, Shortness of breath at rest, Sputum production Gastrointestinal: Denies: Abdominal Pain, Nausea, Vomiting Genitourinary: Denies: Dysuria Musculoskeletal: Denies: Joint Pain, Joint Tenderness Skin: Denies: Rash, Wounds Neurological: Denies: Numbness, Tingling, Focal weakness Psychiatric: Denies: Anxiety, Depression, Homicidal Ideations, Suicidal Ideations Hematologic/ Lymphatic: Denies: Easy Bruising, Easy Bleeding VTE Information - Inpt Only VTE Present on Admission: No VTE Mechan Device Prophylaxis: SCD's VTE Pharm Prophylaxis ordered?: No Reason prophylaxis not ordered:: Treatment Not Indicated - Physical Exam Vitals/I&O's: Vital Signs Temp Pulse Resp BP Pulse Ox 96.3 F L 59 L 17 95/56 L 99 11/23/19 13:38 11/23/19 15:15 11/23/19 13:38 11/23/19 15:15 11/23/19 13:38 Oxygen Delivery Method Room Air Weight: 170 lb Body Mass Index (BMI) 31.1 Intake and Output for Last 24 Hours 11/21/19 11/22/19 11/23/19 23:59 23:59 23:59 Intake Total 500 / 500 Balance 500 / 500 General: Alert, Oriented x3, Cooperative HEENT: Atraumatic, PERRLA, EOMI, Normocephalic Neck: Supple, No JVD, Negative Carotid Bruits Lungs: Clear to auscultation, Normal air movement Cardiovascular: Regular rate, No murmurs Abdomen: Bowel Sounds Present, Soft, Non Tender, Non-Distended, - - Ascites, chronic Extremities: No clubbing, No cyanosis, No edema, Capillary Refill Less than 3 Seconds Skin: No rashes, No breakdown Musculoskeletal: No Tenderness to Palpation of Joints or Extremities Neurological: Cranial nerves II-XII grossly intact, Neuro grossly intact Psych/Mental Status: Normal Affect, Appropriate Laboratory Results 11/23/19 14:30: Troponin I < 0.015 Assessment/Plan 1. Hypotension following paracentesis-asymptomatic. Patient received albumin following paracentesis. Orthostatics initially positive however repeat improved following fluids. Gentle fluids. Monitor overnight. 2. GUEVARA with cirrhosis-weekly paracentesis. Underwent paracentesis today, 11/23/2019 with 4.65 mL removed. Hold Lasix regimen given hypotension. 3. Hypothyroidism with abnormal TSH-May be contributing to #1. Following with endocrinology at [facility]. TSH drawn today by endocrinology which was 270. Will increase home synthroid regimen to 100mcg daily with close outpatient follow-up and repeat TSH as outpatient. Check free T4. 4. Hypertension-hold antihypertensives. 5. Chronic kidney disease stage IV- Follows with Dr. Max. At baseline. 6. Type 2 diabetes [id number] with sliding scale insulin. Continue home long-acting regimen. 7. Osteoporosis-on Fosamax. 8. Chronic normocytic anemia-at baseline, trend CBC. DVT prophylaxis- SCDs This patient was seen by CHRISTAL Wei under the supervision of Dr. Cowan. <Sheron Cowan - Last Filed: 11/23/19 19:51> History of Present Illness Pt underwent a 4.8 L paracentesis today in IR. She undergoes paracentesis weekly for GUEVARA per Dr. Herzog. Her BP was assessed following and was low and remained low after albumin infusion so she was sent to the ED. She states that 4-5 L is a typical amt of fluid removal for her. She denies any lightheadedness at rest or with ambulation. In the ED she received 1L of IVF however she remain hypotensive. Orthostatics were initially + but when repeated after IVF were negative. Her renal function is at her baseline of 2.7-2.8, she is mildly hyperkalemic at 5.8, but her TSH is marked elevated at 270. She denies constipation. She did take her BB this am but not her Lasix. She does see an Sales Representative Advertising at [facility] but hasnt seen her since earlier this year and was just diagnosed with hypothyroidism at that time. She is on 25 mcg of levothyroxine. Past Medical History Medical History: Medical History (Last Reviewed 11/23/19 @ 19:[address] Sheron Cowan DO) Venous insufficiency (chronic) (peripheral) (Chronic) I87.2 History of breast cancer (Chronic) Z85.3 Ascites (Chronic) R18.8 CKD (chronic kidney disease) stage 4, GFR 15-29 ml/min (Chronic) N18.4 TIA (transient ischemic attack) (Chronic) DM2 (diabetes mellitus, type 2) (Chronic) E11.9 Benign essential HTN (Chronic) I10 Hypothyroid E03.9 Hypothyroid E03.9 Allergies clarithromycin [From Biaxin] Allergy (Verified 11/23/19 13:38) Unknown iodine Allergy (Verified 11/23/19 13:38) Unknown Surgical History: Surgical History (Last Reviewed 11/23/19 @ 19:[address] Sheron Cowan DO) History of appendectomy Z90.49 History of cataract extraction Z98.49 History of colonoscopy Z98.890 History of extraction of renal calculus Z98.890, Z87.442 History of right mastectomy Z90.11 history port insertion - *Family History Sibling Family History: Family History (Last Reviewed 11/23/19 @ 19:[address] Sheron Cowan DO) Father CHF (congestive heart failure) Heart disease Mother CVA (cerebral vascular accident) - Physical Exam Vitals/I&O's: Vital Signs Temp Pulse Resp BP Pulse Ox 96.9 F L 57 L 16 89/46 L 100 11/23/19 18:00 11/23/19 18:00 11/23/19 18:00 11/23/19 18:00 11/23/19 18:00 Oxygen Delivery Method Room Air Weight: 73.028 kg Body Mass Index (BMI) 29.4 Intake and Output for Last 24 Hours 11/21/19 11/22/19 11/23/19 23:59 23:59 23:59 Intake Total 620 / 620 Balance 620 / 620 General: No apparent distress, Well developed, Well nourished Oral: Moist Mucosa, No Gingival or Mucosal Lesions/ Ulcerations Neck: Negative Hepatojugular Reflux, No Nodes, No Nuchal Rigidity, Trachea Midline, Thyroid Normal Size and Texture Lungs: No rhonchi, No wheeze, No rales Abdomen: Hernia - sm umbilical hernia Lymphatic: No Cervical, Supraclavicular, or Inguinal Adenopathy Neurological: Deep Tendon Reflexes 2+/4 and Symmetrical, Motor Exam 5/5 strength throughout, Muscle tone normal, Sensory exam intact to light touch and pain Psych/Mental Status: Alert and oriented to time, place, person, mood and affect Comment: Pt seen and evaluated separately by me and the exam was addended to reflect Laboratory Results 06/04/20 14:30: Troponin I < 0.015 11/23/19 14:30: Free T4 0.16 L Current Medications Acetaminophen (Tylenol) 650 mg PO Q6H PRN PRN PRN Reason: Pain Score 1-10/Temp > 100.7 F Dextrose (D50w Syringe) 0 gm IV X1 PRN; Protocol PRN Reason: Hypoglycemia Glucagon () 1 mg IM .X1 PRN PRN Reason: Hypoglycemia Sodium Chloride () 1,000 mls @ 75 mls/hr IV .[id number] KISHOR Stop: 11/24/19 06:14 Last Admin: 11/23/19 18:31 Dose: 75 mls/hr Documented by: Insulin Glargine (Lantus (Bkc)) 36 units SC QHS KISHOR Insulin Glargine (Lantus (Bkc)) 26 units SC DAILY KISHOR Insulin Human Lispro (Humalog Kwikpen (Bkc)) 0 unit SC ACHS KISHOR; Protocol Levothyroxine Sodium (Synthroid) 100 mcg PO DAILY@0600 KISHOR Ondansetron HCl (Zofran) 4 mg IV Q8H PRN PRN PRN Reason: NAUSEA/VOMITING Assessment/Plan Agree with above with the above additions Hypothyroidism -suspect had subclinical hypothyroidism when first diagnosed in early 2019 -wgt based dosing at 1.6 mcg/kg of IBW is 80mcg -will give 100 mcg to start -pt should f/u with Endo and have a repeat Free T4 in 3-5 days -F/U TSH in 6 weeks after D/C Hypotension -hold home meds (Atenolol and Lasix) -may need to switch from atenolol if remains bradycardic with TSH being that elevated Hyperkalemia -repeat now since fluid bolus -may need further intervention if it doesn't come down -night team aware Thrombocytopenia -at baseline -2/2 liver disease Chronic Anemia -stable Inpatient E&M: [id number] Init Hosp L3
[2019-11-23] MEDS: 0.9% Normal Saline 1,000 ML 75 ML IV (18:31)
[2019-11-23] MEDS: Levothyroxine 100 MCG Tablet PO (18:34)
[2019-11-23 18:46] LABS: T4 Free Direct 0.16 ng/dL (0.76-1.46)
[2019-11-23 21:04] LABS: Potassium 5.8 mmol/L (3.5-5.1)
[2019-11-23] MEDS: 0.9% Saline Lock 10 ML Syringe IV ×2 (21:45→22:00)
[2019-11-23] MEDS: Sodium Polystyrene Sulfonate 15 GM/60 ML UDC 30 GM PO (22:00)
[2019-11-23] MEDS: Dextrose 50%-Water 25 GM/50 ML DISP.SYRIN IV (22:11)
[2019-11-23] MEDS: Insulin Lispro 100 UNIT/ML INSULN.PEN SC ×2 (22:18→22:19)
[2019-11-23] MEDS: Albuterol 2.5 MG/3 ML VIAL.NEB. INHALATION (23:03)
[2019-11-23 23:31] LABS: Bedside Glucose 298 mg/dL (70-110)
[2019-11-24] VITALS (17 sets, daily range): BP systolic 76–106; BP diastolic 41–64; PULSE 62–84; RESP 6–16; TEMP 36.4–37.2; O2SAT 98–100
[2019-11-24] MEDS: 0.9% Saline Lock 10 ML Syringe IV ×4 (01:13→21:05)
[2019-11-24 01:38] LABS: Anion Gap 9 (5-15); BUN 106 mg/dL (7-18); BUN/Creat Ratio 39.4 RATIO (10-20); Calcium,Total 8.9 mg/dL (8.5-10.1); Chloride 109 mmol/L (98-107); Creatinine, Serum 2.69 mg/dL (0.55-1.02); EST Glomerular Filtration Rate 18 mL/min (>60); Est Glom Filt Rate - Afr Amer 22 mL/min (>60); Estimated Creatinine Clearance 14.73 ml/min; Glucose 364 mg/dL (74-106); Potassium 4.6 mmol/L (3.5-5.1); Sodium Level 138 mmol/L (136-145)
[2019-11-24 05:19] LABS: Absolute Lymphocyte Count 0.28 X10^3/uL (0.83-4.51); Absolute Neutrophil Count 1.5 X10^3/uL (2.0-7.7); Eosinophil# 0.08 X10^3/uL; Hematocrit 20.4 % (37-47); Hemoglobin 6.8 g/dL (12.0-15.0); Lymphocyte # 0.28 X10^3/ul (4.0); Mean Corp Hgb Conc 33.3 g/dL (32-36); Mean Corpuscular Hgb 32.9 pg (27.0-32.0); Mean Corpuscular Volume 98.6 fL (81-99); Mean Platelet Vol. 10.1 fl (6.2-12.0); Monocyte# 0.15 X10^3/uL; Monocyte% 7.5 % (0-10); NRBC Flagged by Analyzer 0 % (0-5); Neutrophil # 1.48 X10^3/uL (2.7-7.7); POSITIVE COUNT YES; POSITIVE DIFFERENTIAL YES; RBC Distribution Width CV 18.1 % (11.6-14.6); RBC Distribution Width SD 64.1 fl (35.1-43.9); Red Blood Count 2.07 M/mm3 (4.2-5.4)
[2019-11-24 05:37] LABS: Anion Gap 9 (5-15); BUN 106 mg/dL (7-18); BUN/Creat Ratio 40.6 RATIO (10-20); Calcium,Total 8.6 mg/dL (8.5-10.1); Chloride 109 mmol/L (98-107); Creatinine, Serum 2.61 mg/dL (0.55-1.02); EST Glomerular Filtration Rate 19 mL/min (>60); Est Glom Filt Rate - Afr Amer 23 mL/min (>60); Estimated Creatinine Clearance 15.18 ml/min; Glucose 273 mg/dL (74-106); Potassium 4.3 mmol/L (3.5-5.1); Sodium Level 138 mmol/L (136-145)
[2019-11-24 05:38] LABS: Differential Indicated SCAN CRITERIA MET; Platelet Count 40 K/mm3 (150-450)
[2019-11-24] MEDS: Levothyroxine 100 MCG Tablet PO (05:41)
[2019-11-24 05:44] LABS: Differential Comment SCANNED
[2019-11-24] MEDS: Insulin Lispro 100 UNIT/ML INSULN.PEN SC ×4 (06:34→22:44)
[2019-11-24 06:51] LABS: Bedside Glucose 231 mg/dL (70-110)
[2019-11-24 08:08] LABS: Hematocrit 20.9 % (37-47); Hemoglobin 7.1 g/dL (12.0-15.0)
[2019-11-24] MEDS: Albumin Human 25% (100 mL) 25 GM/100 ML BAG IV (08:53)
--- NOTE | 2019-11-24 12:26 | PCM.PROGNOTE ---
<Brianda Soriano - Last Filed: 11/24/19 12:41> Subjective: Patient seen and examined. Denies shortness of breath, dizziness, lightheadedness. States she feels good. Denies blood in stool or black stools. - Physical Exam Vitals/I&O's: Vital Signs Temp Pulse Resp BP Pulse Ox 98.3 F 71 14 87/64 L 100 11/24/19 11:46 11/24/19 11:46 11/24/19 11:46 11/24/19 11:46 11/24/19 11:46 Oxygen Delivery Method Room Air Weight: 161 lb Body Mass Index (BMI) 29.4 Orthostatic Vital Signs Start: 11/24/19 05:41 Freq: q24h Status: Active Protocol: Activity Type Activity Date Activity User E-Sign Co-Sign Detail Recorded Client Recorded Date Recorded By Document 11/24/19 05:45 EEA [id number] 11/24/19 05:52 EEA 11/24/19 05:45 Orthostatic Vitals Standing -Blood Pressure (90/60-120/80) 81/55 L -Extremity Use Left Arm Sitting -Blood Pressure (90/60-120/80) 84/48 L -Extremity Use Left Arm Lying -Blood Pressure (90/60-120/80) 86/48 L -Extremity Use Left Arm Intake and Output for Last 24 Hours 11/22/19 11/23/19 11/24/19 23:59 23:59 23:59 Intake Total 860 / 860 1120 / 1120 Output Total 70 / 70 45 / 45 Balance 790 / 790 1075 / 1075 General: Alert, Oriented x3, Cooperative HEENT: Atraumatic, PERRLA, EOMI, Normocephalic, - - Right medial eyelid stye Neck: Supple, No JVD, Negative Carotid Bruits Lungs: Clear to auscultation, Normal air movement Cardiovascular: Regular rate, No murmurs Abdomen: Bowel Sounds Present, Soft, Non Tender, - - Ascites, chronic Extremities: No clubbing, No cyanosis, No edema, Capillary Refill Less than 3 Seconds Skin: No rashes, No breakdown Musculoskeletal: No Tenderness to Palpation of Joints or Extremities Neurological: Cranial nerves II-XII grossly intact, Neuro grossly intact Psych/Mental Status: Normal Affect, Appropriate Laboratory Results 11/23/19 14:30: Troponin I < 0.015 11/23/19 14:30: Free T4 0.16 L 11/23/19 20:40: Potassium 5.8 H 11/23/19 22:07: POC Glucose 298 H 11/24/19 01:08: Sodium 138, Potassium 4.6, Chloride 109 H, Carbon Dioxide 20.0 L, Anion Gap 9, BUN 106 H*, Creatinine 2.69 H, Estim Creat Clear Calc 14.73, Est GFR (MDRD) Af Amer 22 L, Est GFR (MDRD) Non-Af 18 L, BUN/Creatinine Ratio 39.4 H, Glucose 364 H, Calcium 8.9 11/24/19 05:00: WBC 2.0 L, RBC 2.07 L, Hgb 6.8 L, Hct 20.4 L, MCV 98.6, MCH 32.9 H, MCHC 33.3, RDW Std Deviation 64.1 H, RDW Coeff of Mary Alice 18.1 H, Plt Count 40 L*, MPV 10.1, Immature Gran % (Auto) 0.500, Neut % (Auto) 74.0 H, Lymph % (Auto) 14.0 L, [place] % (Auto) 7.5, Eos % (Auto) 4.0, Baso % (Auto) 0.0, Absolute Neuts (auto) 1.5 L, Absolute Lymphs (auto) 0.28 L, Nucleated RBC % 0, Differential Comment SCANNED, Diff Path Review October11/24/19 05:00: Sodium 138, Potassium 4.3, Chloride 109 H, Carbon Dioxide 20.0 L, Anion Gap 9, BUN 106 H*, Creatinine 2.61 H, Estim Creat Clear Calc 15.18, Est GFR (MDRD) Af Amer 23 L, Est GFR (MDRD) Non-Af 19 L, BUN/Creatinine Ratio 40.6 H, Glucose 273 H, Calcium 8.6 11/24/19 06:31: POC Glucose 231 H 11/24/19 07:04: Blood Type A NEGATIVE, Antibody Screen NEGATIVE, Crossmatch See Detail 11/24/19 07:04: Hgb 7.1 L, Hct 20.9 L Current Medications Acetaminophen (Tylenol) 650 mg PO Q6H PRN PRN PRN Reason: Pain Score 1-10/Temp > 100.7 F Dextrose (D50w Syringe) 0 gm IV X1 PRN; Protocol PRN Reason: Hypoglycemia Glucagon () 1 mg IM .X1 PRN PRN Reason: Hypoglycemia Insulin Glargine (Lantus (Bkc)) 36 units SC QHS [facility] Last Admin: 11/23/19 22:22 Dose: 36 u Documented by: Insulin Glargine (Lantus (Bk)) 26 units SC DAILY [facility] Last Admin: 11/24/19 10:21 Dose: 26 units Documented by: Insulin Human Lispro (Humalog Kwikpen ([facility])) 0 unit SC ACHS KISHOR; Protocol Last Admin: 11/24/19 11:42 Dose: 2 u Documented by: Levothyroxine Sodium (Synthroid) 100 mcg PO DAILY@0600 [facility] Last Admin: 11/24/19 05:41 Dose: 100 mcg Documented by: Ondansetron HCl (Zofran) 4 mg IV Q8H PRN PRN PRN Reason: NAUSEA/VOMITING Sodium Chloride () 10 - 40 ml IV UD PRN PRN Reason: SALINE FLUSH Last Admin: 11/24/19 05:10 Dose: 20 ml Documented by: Medical Necessity - Tobacco Use Smoking Status: Never smoker Tobacco Use: Non-smoker Assessment/Plan 1. Hypotension following paracentesis-asymptomatic. Patient received albumin following paracentesis. Orthostatics initially positive however repeat improved following fluids. Home atenolol and Lasix on hold. Patient received an additional dose of albumin x1. Blood pressure remains 80s systolically. 2. GUEVARA with cirrhosis-weekly paracentesis. Underwent paracentesis 11/23/2019 with 4.65 mL removed. Hold Lasix regimen given hypotension. 3. Hypothyroidism with abnormal TSH-suspect contributing to #1. Following with endocrinology at [facility]. TSH 11/22 270. Will increase home synthroid regimen to 100mcg daily with close outpatient follow-up and repeat TSH as outpatient. T4 0.16. 4. Acute on chronic normocytic anemia-hemoglobin 11/22 9.3, a.m. labs with hemoglobin 6.8. Patient asymptomatic. Repeat hemoglobin 7.1. 1 unit PRBC ordered. Stool for occult blood ordered. Patient has anemia of chronic disease with baseline hemoglobin 8-9. Recent iron studies within normal limits. Do not suspect active bleeding, possible hemodilution due to fluids given secondary to hypotension. Trend H&H. 5. Chronic kidney disease stage IV- Follows with Dr. Max. At baseline. 6. Type 2 diabetes [id number] with sliding scale insulin. Continue home long-acting regimen. 7. Osteoporosis-on Fosamax. 8. Hypertension-hold antihypertensives. 9. Pancytopenia-chronic, unclear etiology. Outpatient follow-up DVT prophylaxis- SCDs This patient was seen by CHRISTAL Wei under the supervision of Dr. Wharton. <Becky Wharton - Last Filed: 11/24/19 14:33> - Physical Exam Vitals/I&O's: Vital Signs Temp Pulse Resp BP Pulse Ox 98.4 F 72 16 86/46 L 100 11/24/19 12:45 11/24/19 12:57 11/24/19 12:45 11/24/19 12:45 11/24/19 12:45 Oxygen Delivery Method Room Air Weight: 161 lb Body Mass Index (BMI) 29.4 Orthostatic Vital Signs Start: 11/24/19 05:41 Freq: q24h Status: Active Protocol: Activity Type Activity Date Activity User E-Sign Co-Sign Detail Recorded Client Recorded Date Recorded By Document 11/24/19 05:45 [facility] [id number] 11/24/19 05:52 EEA 11/24/19 05:45 Orthostatic Vitals Standing -Blood Pressure (90/60-120/80) 81/55 L -Extremity Use Left Arm Sitting -Blood Pressure (90/60-120/80) 84/48 L -Extremity Use Left Arm Lying -Blood Pressure (90/60-120/80) 86/48 L -Extremity Use Left Arm Intake and Output for Last 24 Hours 11/22/19 11/23/19 11/24/19 23:59 23:59 23:59 Intake Total 860 / 860 1120 / 1120 Output Total 70 / 70 45 / 45 Balance 790 / 790 1075 / 1075 Laboratory Results 11/23/19 14:30: Troponin I < 0.015 11/23/19 14:30: Free T4 0.16 L 11/23/19 20:40: Potassium 5.8 H 11/23/19 22:07: POC Glucose 298 H 11/24/19 01:08: Sodium 138, Potassium 4.6, Chloride 109 H, Carbon Dioxide 20.0 L, Anion Gap 9, BUN 106 H*, Creatinine 2.69 H, Estim Creat Clear Calc 14.73, Est GFR (MDRD) Af Amer 22 L, Est GFR (MDRD) Non-Af 18 L, BUN/Creatinine Ratio 39.4 H, Glucose 364 H, Calcium 8.9 11/24/19 05:00: WBC 2.0 L, RBC 2.07 L, Hgb 6.8 L, Hct 20.4 L, MCV 98.6, MCH 32.9 H, MCHC 33.3, RDW Std Deviation 64.1 H, RDW Coeff of Mary Alice 18.1 H, Plt Count 40 L*, MPV 10.1, Immature Gran % (Auto) 0.500, Neut % (Auto) 74.0 H, Lymph % (Auto) 14.0 L, [place] % (Auto) 7.5, Eos % (Auto) 4.0, Baso % (Auto) 0.0, Absolute Neuts (auto) 1.5 L, Absolute Lymphs (auto) 0.28 L, Nucleated RBC % 0, Differential Comment SCANNED, Diff Path Review October11/24/19 05:00: Sodium 138, Potassium 4.3, Chloride 109 H, Carbon Dioxide 20.0 L, Anion Gap 9, BUN 106 H*, Creatinine 2.61 H, Estim Creat Clear Calc 15.18, Est GFR (MDRD) Af Amer 23 L, Est GFR (MDRD) Non-Af 19 L, BUN/Creatinine Ratio 40.6 H, Glucose 273 H, Calcium 8.6 11/24/19 06:31: POC Glucose 231 H 11/24/19 07:04: Blood Type A NEGATIVE, Antibody Screen NEGATIVE, Crossmatch See Detail 11/24/19 07:04: Hgb 7.1 L, Hct 20.9 L 11/24/19 11:40: POC Glucose 245 H Current Medications Acetaminophen (Tylenol) 650 mg PO Q6H PRN PRN PRN Reason: Pain Score 1-10/Temp > 100.7 F Dextrose (D50w Syringe) 0 gm IV X1 PRN; Protocol PRN Reason: Hypoglycemia Glucagon () 1 mg IM .X1 PRN PRN Reason: Hypoglycemia Insulin Glargine (Lantus (Bkc)) 36 units SC QHS [facility] Last Admin: 11/23/19 22:22 Dose: 36 u Documented by: Insulin Glargine (Lantus (Bkc)) 26 units SC DAILY [facility] Last Admin: 11/24/19 10:21 Dose: 26 units Documented by: Insulin Human Lispro (Humalog Kwikpen (Bk)) 0 unit SC ACHS [facility]; Protocol Last Admin: 11/24/19 11:42 Dose: 2 u Documented by: Levothyroxine Sodium (Synthroid) 100 mcg PO DAILY@0600 [facility] Last Admin: 11/24/19 05:41 Dose: 100 mcg Documented by: Ondansetron HCl (Zofran) 4 mg IV Q8H PRN PRN PRN Reason: NAUSEA/VOMITING Sodium Chloride () 10 - 40 ml IV UD PRN PRN Reason: SALINE FLUSH Last Admin: 11/24/19 05:10 Dose: 20 ml Documented by: Assessment/Plan Patient seen by Brianda Soriano NP-C under my supervision Patient seen and examined. She was admitted for hypotension after she had paracentesis. She did receive albumin after paracentesis. She was given IV fluids and her home atenolol and Lasix were held. Patient has no complaints this morning and said she felt very fine. Review of Systems otherwise negative. Patient's hemoglobin was 6.8 this morning. Patient denied any coffee-ground emesis or dark tarry stools or bright red bleeding per rectum. o/e: Vital Signs Temp Pulse Resp BP Pulse Ox 98.4 F 72 16 86/46 L 100 11/24/19 12:45 11/24/19 12:57 11/24/19 12:45 11/24/19 12:45 11/24/19 12:45 General: Alert, Oriented x3, Cooperative HEENT: Atraumatic, PERRLA, EOMI, Normocephalic, Neck: Supple, No JVD, Negative Carotid Bruits Lungs: Clear to auscultation, Normal air movement Cardiovascular: Regular rate, No murmurs Abdomen: Bowel Sounds Present, Soft, Non Tender, - - Ascites, chronic Extremities: No clubbing, No cyanosis, No edema, Capillary Refill Less than 3 Seconds Skin: No rashes, No breakdown Musculoskeletal: No Tenderness to Palpation of Joints or Extremities Neurological: Cranial nerves II-XII grossly intact, Neuro grossly intact Psych/Mental Status: Normal Affect, Appropriate Iron panel done in September 2019 showed iron level of 87 with TIBC of 226, iron saturation of 38.5% and ferritin of 262. Stool for occult blood ordered and is pending. Repeat hemoglobin done for patient came at 7.1. Will transfuse with 1 unit of packed red blood cells. Her baseline hemoglobin is between 8 and 9. Stool for occult blood ordered. Patient's TSH was 270 with free T4 of 0.16. Therefore, she has severe hypothyroidism: Synthroid dose increased to 100 mcg daily. Will give 1 more unit of IV albumin. Patient's platelets are noted to be 40 with WBC of 2. She therefore has pancytopenia. Patient does have chronic pancytopenia. Will trend and monitor. Rest as per CHRISTAL Wei's notes which I reviewed and endorsed. OBSV E&M: [id number] Subsequent observation care L3
[2019-11-24 12:40] LABS: Bedside Glucose 245 mg/dL (70-110)
--- NOTE | 2019-11-24 13:15 | CASEMGMT ---
RN CM PACKAGING ENGINEER CM to room to meet with patient for initial transition planning/care coordination assessment. RN CM introduced self and role at [facility]. Pt voices understanding and consents to assessment at this time. Pt resting in bed in no distress at this time. Pt is A/O at this time and answers all questions appropriately. Care providers, pharmacy, and demographics verified/updated at this time. PCP: Dr Bay Specialists: Dr Max-nephrology, Architectural Wood Model Maker @ [facility], Dr Herzog-GI, Dr Price- oncology, Dr Britt--diagnostic radiologist--(gets paracentesis weekly) Preferred Pharmacy: [facility] Insurance: [employer] [facility] Prescription Benefit: Yes Living Will/HPOA: Has both LW and Healthcare POA, who is her nephew, Miko Castro. Copies of both on file @ [facility]. LNOK: Nephiew-Miko Castro (POA), niece Shanthi Ma Living Arrangements: Lives alone in [facility]. No steps. Independent. Ambulates independently. Transportation: Pt states drives self and states no transportation concerns at this time. She states her car is @ [facility] and plans to drive herself home @ discharge. She states if it is not recommended for her to drive @ d/c, that she would be able to find a ride home. DME: States has the following DME: glucometer--states it is functioning properly and she has all the needed supplies for it, rails/grab bars, hand held shower, has walk-in shower w/built in bench. Pt states no need for further DME at this time. HHC/SNF: [facility] a couple of years ago. Also had HHC but does not remember the name of agency. Pt denies wanting HHC or any OP therapy at discharge. Pt wishes to return home and states has no concerns with going home at time of discharge. CM to follow for any discharge planning/needs. Pt voices no concerns/needs at this time. Advised pt to ask for CM if any questions/concerns/needs arise. Voices understanding. CASTELLANOS form reviewed w/pt at this time. Pt denies having any questions. Form signed by pt, copy made and placed on chart, and original given to pt. Pt made aware if she has any questions/concerns, to ask for RN CM. She voices understanding. PLAN: Home Lei HACKETT RN CM
[2019-11-24 15:46] LABS: Hematocrit 23.3 % (37-47); Hemoglobin 7.8 g/dL (12.0-15.0)
[2019-11-24 16:55] LABS: Bedside Glucose 216 mg/dL (70-110)
[2019-11-24 21:14] LABS: Hematocrit 22.3 % (37-47); Hemoglobin 7.6 g/dL (12.0-15.0)
[2019-11-25 00:36] LABS: Bedside Glucose 238 mg/dL (70-110)
[2019-11-25 02:10] VITALS: BP 97/55; PULSE 65; RESP 12; TEMP 36.9; O2SAT 99
[2019-11-25 03:05] VITALS: PULSE 63
[2019-11-25] MEDS: 0.9% Saline Lock 10 ML Syringe IV ×2 (06:15→11:37)
[2019-11-25 06:23] VITALS: BP 103/52; BP 113/57; BP 113/58
[2019-11-25 06:30] LABS: Hematocrit 25.2 % (37-47); Hemoglobin 8.6 g/dL (12.0-15.0); Mean Corp Hgb Conc 34.1 g/dL (32-36); Mean Corpuscular Volume 96.6 fL (81-99); Mean Platelet Vol. 10.7 fl (6.2-12.0); POSITIVE COUNT YES; RBC Distribution Width CV 17.3 % (11.6-14.6); Red Blood Count 2.61 M/mm3 (4.2-5.4); White Blood Count 3.3 K/mm3 (4.4-11.0)
[2019-11-25 06:32] LABS: Platelet Count 49 K/mm3 (150-450); Scan Indicated on CBC? Y/N YES- FLAGS NOTED
[2019-11-25] MEDS: Levothyroxine 100 MCG Tablet PO (06:34)
[2019-11-25 06:45] LABS: Anion Gap 11 (5-15); BUN 106 mg/dL (7-18); BUN/Creat Ratio 40.6 RATIO (10-20); Calcium,Total 8.8 mg/dL (8.5-10.1); Chloride 109 mmol/L (98-107); Creatinine, Serum 2.61 mg/dL (0.55-1.02); EST Glomerular Filtration Rate 19 mL/min (>60); Est Glom Filt Rate - Afr Amer 23 mL/min (>60); Estimated Creatinine Clearance 15.18 ml/min; Glucose 72 mg/dL (74-106); Potassium 3.7 mmol/L (3.5-5.1); Sodium Level 139 mmol/L (136-145)
[2019-11-25 07:06] LABS: Bedside Glucose 111 mg/dL (70-110)
[2019-11-25 07:25] VITALS: PULSE 67
[2019-11-25 07:34] VITALS: PULSE 70
[2019-11-25 07:39] VITALS: BP 91/59; PULSE 65; RESP 16; TEMP 36.7; O2SAT 99
[2019-11-25 10:11] LABS: Bedside Glucose 68 mg/dL (70-110)
--- NOTE | 2019-11-25 10:44 | DCINST_ITS ---
You will use the following diet at home:: No restrictions Discharge Activity: Return to Normal Activity Call your doctor if you observe: Shortness of breath, Dizziness, Fainting spells, Chest pain Additional Instructions: Check blood pressure twice daily, morning and night at home. HOLD home atenolol and Lasix regimen if systolic blood pressure (top number) is less than 100. Allergies/Adverse Reactions: Allergies clarithromycin [From Biaxin] Allergy (Verified 11/23/19 13:38) Unknown iodine Allergy (Verified 11/23/19 13:38) Unknown Medications to take at Discharge Furosemide [Lasix] 40 mg PO QODAY 01/22/18 Insulin Glargine,Hum.rec.anlog [Lantus] 36 unit SQ QHS 08/11/18 Alendronate Sodium [Fosamax] 70 mg PO FR 11/23/19 Cholecalciferol (VIT D3) [Vitamin D3] 1,000 unit PO DAILY 11/23/19 Insulin Glargine,Hum.rec.anlog [Lantus Solostar] 26 unit SQ DAILY 11/23/19 Atenolol [Tenormin (beta geraldine)] 50 mg PO DAILY #0 11/25/19 Levothyroxine [Synthroid] 100 mcg PO DAILY@0600 #14 tab 11/25/19 Pantoprazole Sodium [Protonix] 40 mg PO BID #60 tab 11/25/19 The following prescriptions were given: Pantoprazole Sodium [Protonix] 40 mg PO BID #60 tab Transmission Status: Pending to [facility]/pharmacy #[id number] Levothyroxine [Synthroid] 100 mcg PO DAILY@0600 #14 tab Transmission Status: Pending to [facility]/pharmacy #[id number] Primary Care Physician: Nicola Bay MD [Primary Care Provider] - Please follow up with your Primary Care Physician in: 1 Week Test Results: Test results from this visit will be discussed in further detail at your follow- up appointment, if applicable. Please Follow Up With: Sybil Jansen MD When: Follow up Wednesday or soonest available appt Please Follow Up With: Osvaldo Robertson MD - May see Dr. Allen if you prefer given previously established. When: Call for outpatient follow up/scope for anemia. Proposed Discharge Date: 11/25/19
--- NOTE | 2019-11-25 10:50 | PCM.DC.SUM ---
<Brianda Soriano - Last Filed: 11/25/19 11:04> Discharge Date and Diagnosis Date of Admission: 11/23/19 Date of Discharge: 11/25/19 - Primary Discharge Diagnosis Acute Problems: 1. Hypotension following paracentesis 2. GUEVARA with cirrhosis-weekly paracentesis. 3. Severe Hypothyroidism 4. Acute on chronic normocytic anemia 5. Chronic kidney disease stage IV 6. Type 2 diabetes mellitus 7. Osteoporosis 8. Hypertension 9. Pancytopenia - Secondary Discharge Diagnosis Chronic Problems: Chronic Problems (Last Reviewed 11/23/19 @ 19:[address] Sheron Cowan, DO) Pancytopenia (Chronic) Dependent edema (Chronic) Venous insufficiency (chronic) (peripheral) (Chronic) History of breast cancer (Chronic) Ascites (Chronic) CKD (chronic kidney disease) stage 4, GFR 15-29 ml/min (Chronic) TIA (transient ischemic attack) (Chronic) DM2 (diabetes mellitus, type 2) (Chronic) Benign essential HTN (Chronic) Hospital Course and Treatment Operations: None Procedures: None Summary of Care Provided: The patient is a 74 year old F admitted 11/23/2019 due to hypotension. 1. Hypotension following paracentesis-asymptomatic. Patient received albumin following paracentesis. Orthostatics initially positive however repeat improved following fluids. Home atenolol and Lasix held during admission. Patient received an additional dose of albumin x1. Blood pressure improved. Patient instructed to check blood pressure at home twice daily, morning and night and hold home Lasix, atenolol regimen if systolic blood pressure less than 100. Follow-up with primary care provider within 1 week. 2. GUEVARA with cirrhosis-weekly paracentesis. Underwent paracentesis 11/23/2019 with 4.65 mL removed. Continue outpatient follow-up. 3. Severe hypothyroidism-suspect contributing to #1. [facility], [facility] J[facility]. TSH 11/22 270. Will increase home synthroid regimen to 100mcg daily with close outpatient follow-up and repeat TSH as outpatient. T4 0.16. Patient will need repeat free T4 in 3 to 5 days as well as follow-up TSH in 4 to 6 weeks. Follow-up with endocrinology early next week. 4. Acute on chronic normocytic anemia-hemoglobin dropped to 6.8 during admission. Status post 1 unit PRBC.. Stool for occult blood positive. Patient has anemia of chronic disease with baseline hemoglobin 8-9. Recent iron studies within normal limits. Hemoglobin at discharge 8.6. Initiated on PPI twice daily pending further outpatient follow-up. Discussed with general surgery, Dr. Robertson who will see patient on outpatient basis for further work-up. Patient has followed with Dr. Allen in the past and reports colonoscopy approximately 5 years ago. Discussed with patient she may follow-up with either. 5. Chronic kidney disease stage IV- Follows with Dr. Max. At baseline. 6. Type 2 diabetes mellitus-continue home insulin regimen. 7. Osteoporosis-on Fosamax. 8. Hypertension-hold antihypertensives for systolic blood pressure less than 100 as noted above. 9. Pancytopenia-chronic, stable. Outpatient follow-up. General: Alert, Oriented x3, Cooperative HEENT: Atraumatic, PERRLA, EOMI, Normocephalic, - - Right medial eyelid stye Neck: Supple, No JVD, Negative Carotid Bruits Lungs: Clear to auscultation, Normal air movement Cardiovascular: Regular rate, No murmurs Abdomen: Bowel Sounds Present, Soft, Non Tender, - - Ascites, chronic Extremities: No clubbing, No cyanosis, No edema, Capillary Refill Less than 3 Seconds Skin: No rashes, No breakdown Musculoskeletal: No Tenderness to Palpation of Joints or Extremities Neurological: Cranial nerves II-XII grossly intact, Neuro grossly intact Psych/Mental Status: Normal Affect, Appropriate Patient seen and examined prior to discharge. Physical assessment as noted above. Patient is stable for discharge with follow up recommendations as noted above. This patient was seen by CHRISTAL Wei under the supervision of Dr. Wharton. - Physical Exam Vitals/I&O's: Vital Signs Temp Pulse Resp BP Pulse Ox 98.1 F 65 16 91/59 L 99 11/25/19 07:39 11/25/19 07:39 11/25/19 07:39 11/25/19 07:39 11/25/19 07:39 Oxygen Delivery Method Room Air Weight: 161 lb Body Mass Index (BMI) 29.4 Orthostatic Vital Signs Start: 11/24/19 05:41 Freq: q24h Status: Active Protocol: Activity Type Activity Date Activity User E-Sign Co-Sign Detail Recorded Client Recorded Date Recorded By Document 11/25/19 06:23 EEA [id number] 11/25/19 06:27 EEA 11/25/19 06:23 Orthostatic Vitals Standing -Blood Pressure (90/60-120/80) 113/58 L -Extremity Use Left Arm Sitting -Blood Pressure (90/60-120/80) 113/57 L -Extremity Use Left Arm Lying -Blood Pressure (90/60-120/80) 103/52 L -Extremity Use Left Arm Intake and Output for Last 24 Hours 11/23/19 11/24/19 11/25/19 23:59 23:59 23:59 Intake Total 860 / 860 2330 / 2330 40 / 40 Output Total 70 / 70 245 / 245 0 / 0 Balance 790 / 790 2085 / 2085 40 / 40 Microbiology Past 72 Hours 11/25/19 09:10 Stool Stool Occult Blood (LUZMA) - Final Occult Blood Positive Laboratory Results 11/24/19 07:04: Blood Type A NEGATIVE, Antibody Screen NEGATIVE, Crossmatch See Detail 11/24/19 11:40: POC Glucose 245 H 11/24/19 15:25: Hgb 7.8 L, Hct 23.3 L 11/24/19 16:33: POC Glucose 216 H 11/24/19 21:00: Hgb 7.6 L, Hct 22.3 L 11/24/19 22:39: POC Glucose 238 H 11/25/19 06:05: WBC 3.3 L, RBC 2.61 L, Hgb 8.6 L, Hct 25.2 L, MCV 96.6, MCH 33.0 H, MCHC 34.1, RDW Std Deviation 61.0 H, RDW Coeff of Mary Alice 17.3 H, Plt Count 49 L*, MPV 10.7, Differential Comment COMMENT, Diff Path Review October11/25/19 06:05: Sodium 139, Potassium 3.7, Chloride 109 H, Carbon Dioxide 19.0 L, Anion Gap 11, BUN 106 H*, Creatinine 2.61 H, Estim Creat Clear Calc 15.18, Est GFR (MDRD) Af Amer 23 L, Est GFR (MDRD) Non-Af 19 L, BUN/Creatinine Ratio 40.6 H, Glucose 72 L, Calcium 8.8 11/25/19 06:31: POC Glucose 68 L 11/25/19 07:00: POC Glucose 111 H Current Medications Acetaminophen (Tylenol) 650 mg PO Q6H PRN PRN PRN Reason: Pain Score 1-10/Temp > 100.7 F Dextrose (D50w Syringe) 0 gm IV X1 PRN; Protocol PRN Reason: Hypoglycemia Glucagon () 1 mg IM .X1 PRN PRN Reason: Hypoglycemia Insulin Glargine (Lantus (Bkc)) 36 units SC QHS [facility] Last Admin: 11/24/19 22:43 Dose: 36 u Documented by: Insulin Glargine (Lantus (Bkc)) 26 units SC DAILY [facility] Last Admin: 11/25/19 09:50 Dose: Not Given Documented by: Insulin Human Lispro (Humalog Kwikpen ([facility])) 0 unit SC ACHS [facility]; Protocol Last Admin: 11/25/19 06:34 Dose: Not Given Documented by: Levothyroxine Sodium (Synthroid) 100 mcg PO DAILY@0600 [facility] Last Admin: 11/25/19 06:34 Dose: 100 mcg Documented by: Ondansetron HCl (Zofran) 4 mg IV Q8H PRN PRN PRN Reason: NAUSEA/VOMITING Sodium Chloride () 10 - 40 ml IV UD PRN PRN Reason: SALINE FLUSH Last Admin: 11/25/19 06:15 Dose: 30 ml Documented by: Discharge Diet: No Restrictions Discharge Activity: Return to Normal Activity Call your doctor if you observe: Shortness of breath, Dizziness, Fainting spells, Chest pain Home Medications: Medications to take at Discharge Furosemide [Lasix] 40 mg PO QODAY 01/22/18 Insulin Glargine,Hum.rec.anlog [Lantus] 36 unit SQ QHS 08/11/18 Alendronate Sodium [Fosamax] 70 mg PO FR 11/23/19 Cholecalciferol (VIT D3) [Vitamin D3] 1,000 unit PO DAILY 11/23/19 Insulin Glargine,Hum.rec.anlog [Lantus Solostar] 26 unit SQ DAILY 11/23/19 Atenolol [Tenormin (beta geraldine)] 50 mg PO DAILY #0 11/25/19 Levothyroxine [Synthroid] 100 mcg PO DAILY@0600 #14 tab 11/25/19 Pantoprazole Sodium [Protonix] 40 mg PO BID #60 tab 11/25/19 Following Prescrptions Were Given to Patient: Pantoprazole Sodium [Protonix] 40 mg PO BID #60 tab Transmission Status: Received by [facility]/pharmacy #[id number] Levothyroxine [Synthroid] 100 mcg PO DAILY@0600 #14 tab Transmission Status: Received by [facility]/pharmacy #[id number] Primary Care Physician: Nicola Bay MD [Primary Care Provider] - Please follow up with your Primary Care Physician in: 1 Week Please Follow Up With: Sybil Jansen MD When: Follow up Wednesday or soonest available appt Please Follow Up With: Osvaldo Robertson MD - May see Dr. Allen if you prefer given previously established. When: Call for outpatient follow up/scope for anemia. Disposition: Home Minutes spent on discharge:: 35 Patient Condition:: Stable Medical Necessity - Tobacco Use Smoking Status: Never smoker Tobacco Use: Non-smoker Meaningful Use Info Meaningful Use Diagnoses (Choose all that apply): None applicable <Becky Wharton - Last Filed: 11/25/19 14:43> Discharge Date and Diagnosis - Secondary Discharge Diagnosis Chronic Problems: Chronic Problems (Last Reviewed 11/23/19 @ 19:[address] Sheron Cowan, DO) Pancytopenia (Chronic) Dependent edema (Chronic) Venous insufficiency (chronic) (peripheral) (Chronic) History of breast cancer (Chronic) Ascites (Chronic) CKD (chronic kidney disease) stage 4, GFR 15-29 ml/min (Chronic) TIA (transient ischemic attack) (Chronic) DM2 (diabetes mellitus, type 2) (Chronic) Benign essential HTN (Chronic) Hospital Course and Treatment Summary of Care Provided: Patient seen by Brianda SIEGEL under my supervision The patient is a 74 year old F with an extensive past medical history as outlined including ascites due to GUEVARA and liver cirrhosis for which she receives weekly paracentesis. Patient had paracentesis on the day of admission and became hypotensive after that so she was admitted for closer monitoring. Her home medications of atenolol and Lasix were held and she received albumin and IV fluids. Orthostatics were positive but improved and resolved with IV fluids. Patient was also noted to be severely hypothyroid right with TSH being around 270 and T4 being 0.16. Home Synthroid dose was increased to 200 mcg daily. Patient's hemoglobin was also noted to drop to 6.8. On repeat it came up to around 7.1. She was therefore transfused with 1 unit of packed red blood cells. Her baseline hemoglobin was around 8-9. She was started on p.o. pantoprazole 40 mg twice daily. Stool for occult blood done was positive. Iron panel done in September 2019 showed iron of 87 with iron saturation of 38.5 and ferritin of 262 with TIBC of 226. Patient states had a colonoscopy about 5 years ago which was negative. General surgery was informed about patient and decision was for patient to follow-up with Dr. Robertson on outpatient basis. Patient remained stable and was discharged home on 11/25/2019. She is to follow-up with her primary care doctor, endocrinology and general surgery. Patient seen and examined prior to discharge. She had no complaints and felt well. She was eager to be discharged home. Review systems otherwise negative. Labs and vitals reviewed. Home medication reviewed and reconciled. O/E: Vital Signs Temp Pulse Resp BP Pulse Ox 98.1 F 65 16 91/59 L 99 11/25/19 07:39 11/25/19 07:39 11/25/19 07:39 11/25/19 07:39 11/25/19 07:39 [] General: Alert, Oriented x3, Cooperative HEENT: Atraumatic, PERRLA, EOMI, Normocephalic, Neck: Supple, No JVD, Negative Carotid Bruits Lungs: Clear to auscultation, Normal air movement Cardiovascular: Regular rate, No murmurs Abdomen: Bowel Sounds Present, Soft, Non Tender, - - Ascites, chronic Extremities: No clubbing, No cyanosis, No edema, Capillary Refill Less than 3 Seconds Skin: No rashes, No breakdown Musculoskeletal: No Tenderness to Palpation of Joints or Extremities Neurological: Cranial nerves II-XII grossly intact, Neuro grossly intact Psych/Mental Status: Normal Affect, Appropriate Plan is for discharge home today as above. Rest as per CHRISTAL Wei's notes which I reviewed and endorsed. - Physical Exam Vitals/I&O's: Vital Signs Temp Pulse Resp BP Pulse Ox 98.1 F 65 16 91/59 L 99 11/25/19 07:39 11/25/19 07:39 11/25/19 07:39 11/25/19 07:39 11/25/19 07:39 Oxygen Delivery Method Room Air Weight: 161 lb Body Mass Index (BMI) 29.4 Orthostatic Vital Signs Start: 11/24/19 05:41 Freq: q24h Status: Active Protocol: Activity Type Activity Date Activity User E-Sign Co-Sign Detail Recorded Client Recorded Date Recorded By Document 11/25/19 06:23 [facility] [id number] 11/25/19 06:27 EEA 11/25/19 06:23 Orthostatic Vitals Standing -Blood Pressure (90/60-120/80) 113/58 L -Extremity Use Left Arm Sitting -Blood Pressure (90/60-120/80) 113/57 L -Extremity Use Left Arm Lying -Blood Pressure (90/60-120/80) 103/52 L -Extremity Use Left Arm Intake and Output for Last 24 Hours 11/23/19 11/24/19 11/25/19 23:59 23:59 23:59 Intake Total 860 / 860 2330 / 2330 40 / 40 Output Total 70 / 70 245 / 245 0 / 0 Balance 790 / 790 2085 / 2085 40 / 40 Microbiology Past 72 Hours 11/25/19 09:10 Stool Stool Occult Blood (LUZMA) - Final Occult Blood Positive Laboratory Results 11/24/19 07:04: Crossmatch See Detail 11/24/19 15:25: Hgb 7.8 L, Hct 23.3 L 11/24/19 16:33: POC Glucose 216 H 11/24/19 21:00: Hgb 7.6 L, Hct 22.3 L 11/24/19 22:39: POC Glucose 238 H 11/25/19 06:05: WBC 3.3 L, RBC 2.61 L, Hgb 8.6 L, Hct 25.2 L, MCV 96.6, MCH 33.0 H, MCHC 34.1, RDW Std Deviation 61.0 H, RDW Coeff of Mary Alice 17.3 H, Plt Count 49 L*, MPV 10.7, Differential Comment COMMENT, Diff Path Review October11/25/19 06:05: Sodium 139, Potassium 3.7, Chloride 109 H, Carbon Dioxide 19.0 L, Anion Gap 11, BUN 106 H*, Creatinine 2.61 H, Estim Creat Clear Calc 15.18, Est GFR (MDRD) Af Amer 23 L, Est GFR (MDRD) Non-Af 19 L, BUN/Creatinine Ratio 40.6 H, Glucose 72 L, Calcium 8.8 11/25/19 06:31: POC Glucose 68 L 11/25/19 07:00: POC Glucose 111 H 11/25/19 11:04: POC Glucose 229 H OBSV E&M: [id number] Observation care discharge
[2019-11-25 11:50] LABS: Bedside Glucose 229 mg/dL (70-110)
[2019-11-27 12:13] LABS: Pathologist Review Reviewed
[2019-11-27 12:22] LABS: Pathologist Review Reviewed
== END 2019-11-25 10:48 | disposition home or self-care (01) ==
LOC: ED 15:25 → PCU 16:39
PROVIDERS: Family Medicine; Nurse Practitioner Family; Admitting Provider Internal Medicine; Emergency Provider Emergency Medicine; PCP Family Medicine; Visit Provider Student in an Organized Health Care Education/Training Program
DX: I95.81 Postprocedural hypotension (principal); K75.81 Nonalcoholic steatohepatitis (NASH); E03.9 Hypothyroidism, unspecified; N18.4 Chronic kidney disease, stage 4 (severe); D63.1 Anemia in chronic kidney disease; D64.9 Anemia, unspecified; K74.60 Unspecified cirrhosis of liver; I12.9 Hypertensive chronic kidney disease with stage 1 through stage 4 chronic kidney disease, or unspecified chronic kidney disease; E11.22 Type 2 diabetes mellitus with diabetic chronic kidney disease; M81.0 Age-related osteoporosis without current pathological fracture; D61.818 Other pancytopenia; Z85.3 Personal history of malignant neoplasm of breast; Z86.73 Personal history of transient ischemic attack (TIA), and cerebral infarction without residual deficits; E21.2 Other hyperparathyroidism; Z79.4 Long term (current) use of insulin
CPT/HCPCS: 36415; 36430; 49083; 80048; 80053; 80061; 82274; 82306; 82330; 82962; 83036; 83970; 84100; 84132; 84439; 84443; 84484; 85014; 85018; 85025; 85027; 86850; 86900; 86901; 86920; 86922; 93005; 94640; 96361; 96365; 96366; 96375; 99218; 99285; J7030; J7040; P9016; P9047; A4216; G0378; J0610

== ENCOUNTER → 2019-11-30 10:18 | Outpatient (CLI) | payer MEDICARE, SELFPAY ==
[2019-05-04 11:25] VITALS: BMI 31.4
[2019-11-23 18:04] VITALS: BMI 29.4
--- NOTE | 2019-11-30 10:20 | US_ITS ---
PROCEDURE: Ultrasound guided paracentesis. DATE OF EXAMINATION: November 30, 2019. INDICATION: Female, 74 years old. Ascites. PHYSICIAN: Rigo Britt M.D. TECHNIQUE: The risks, benefits, and alternatives to the procedure were explained to the patient. The specific risks of bleeding, infection, and damage to bowel were detailed and accepted. Witnessed informed consent was obtained. The abdomen was ultrasonographically surveyed. An appropriate pocket of fluid was identified at the left lower quadrant. The skin were cleaned and prepped in the usual sterile fashion. Using ultrasound guidance, the peritoneal cavity was accessed with a 5-[place] Islander paracentesis needle/catheter system. The trocar was removed. A total of 6600 ml of bloody fluid were removed from the peritoneal cavity. The catheter was removed and a sterile dressing was applied. The procedure was well tolerated. US/Paracentesis with US IMPRESSION: Ultrasound guided paracentesis. Electronically Signed: Rigo Britt, at 12:13 EDT , Service support ,
[2019-11-30 11:15] VITALS: BP 110/66; BP 112/64; BP 124/70; PULSE 85; PULSE 91; PULSE 93; RESP 16; TEMP 36.7; O2SAT 100; O2SAT 96; O2SAT 98
[2019-11-30 12:04] VITALS: BP 99/50; PULSE 88; RESP 18; TEMP 35.8; O2SAT 100; BMI 29.4
[2019-11-30] MEDS: 0.9 % NaCl (Sterile) Posiflush 10 mL IV (12:15)
[2019-11-30] MEDS: Albumin Human 25% (50 mL) 12.5 GM/50 ML IV.SOLN IV (12:16)
[2019-11-30] MEDS: 0.9% NaCl VAD Flush IV (13:08)
[2019-11-30 13:49] LABS: Mucous, Urine 0 SEEN /hpf (<or=2+); Red Blood Cells-Urine 0 SEEN /hpf (0-5)
[2019-11-30 13:52] LABS: Color, Urine Yellow (Yellow); Glucose, Dipstick Normal (Normal); Ketone-Dipstick Negative (Negative); Leukocyte Esterase-Dipstick 25 /ul (Negative); Nitrite-Dipstick Negative (Negative); Occult Blood-Urine Negative /ul (Negative); Protein-Dipstick Negative (Negative); Specific Gravity, Urine 1.015 (1.002-1.030); Urine Bilirubin Dipstick Negative (Negative); Urine Clarity Clear (Clear); Urine Urobilinogen Normal (Normal)
[2019-11-30 14:00] LABS: Protein, Urine (Random) 14.6 mg/dL (<11.9); Protein:Creat Ratio 133 mg/g CRE (0-200)
[2019-11-30 14:01] LABS: Bacteria 1+ /hpf (None Seen); Renal Epithelial Cells 0-5 SEEN /hpf (0-5); Squamous Epithelial Cells - UA 0-5 SEEN /hpf (5-10); White Blood Cells 0-5 SEEN /hpf (0-5)
== END ==
PROVIDERS: Family Provider Family Medicine; PCP Family Medicine; Referring Provider Internal Medicine Gastroenterology; Visit Provider Internal Medicine Gastroenterology
DX: K74.60 Unspecified cirrhosis of liver (principal); R18.8 Other ascites
CPT/HCPCS: 96365; 49083; 81001; 82570; 84156; P9047

== ENCOUNTER → 2019-12-07 10:22 | Outpatient (CLI) | payer MEDICARE, SELFPAY ==
[2019-05-04 11:25] VITALS: BMI 31.4
[2019-11-30 12:04] VITALS: BMI 29.4
--- NOTE | 2019-12-07 10:28 | US_ITS ---
PROCEDURE: Ultrasound guided paracentesis. DATE OF EXAMINATION: December 07, 2019. INDICATION: Female, 74 years old. Ascites. PHYSICIAN: Rigo Britt M.D. TECHNIQUE: The risks, benefits, and alternatives to the procedure were explained to the patient. The specific risks of bleeding, infection, and damage to bowel were detailed and accepted. Witnessed informed consent was obtained. The abdomen was ultrasonographically surveyed. An appropriate pocket of fluid was identified at the right lower quadrant. The skin were cleaned and prepped in the usual sterile fashion. Using ultrasound guidance, the peritoneal cavity was accessed with a 5-Slovak paracentesis needle/catheter system. The trocar was removed. A total of 6900 ml of blood-tinged fluid were removed from the peritoneal cavity. The catheter was removed and a sterile dressing was applied. The procedure was well tolerated. US/Paracentesis with US IMPRESSION: Ultrasound guided paracentesis. Electronically Signed: Rigo Britt, at 12:14 EDT , Service support ,
[2019-12-07 10:55] VITALS: BP 103/54; BP 131/65; BP 135/69; PULSE 88; PULSE 89; PULSE 97; RESP 14; RESP 16; TEMP 36.9; O2SAT 100; O2SAT 98; O2SAT 99
[2019-12-07 11:45] VITALS: BP 98/44; PULSE 87; RESP 16; TEMP 36.6; O2SAT 100; BMI 32.5
[2019-12-07] MEDS: Albumin Human 25% (50 mL) 12.5 GM/50 ML IV.SOLN IV (11:55)
[2019-12-07] MEDS: 0.9 % NaCl (Sterile) Posiflush 10 mL IV (11:58)
[2019-12-07] MEDS: 0.9% NaCl VAD Flush IV ×2 (11:58→12:43)
[2019-12-07 12:17] LABS: Absolute Lymphocyte Count 0.16 X10^3/uL (0.83-4.51); Absolute Neutrophil Count 1.4 X10^3/uL (2.0-7.7); Basophil# 0.01 X10^3/uL; Basophil% 0.5 % (0-1); Eosinophil# 0.11 X10^3/uL; Hematocrit 25.7 % (37-47); Hemoglobin 8.2 g/dL (12.0-15.0); Lymphocyte # 0.16 X10^3/ul (4.0); Lymphocyte % 8.7 % (19-41); Mean Corp Hgb Conc 31.9 g/dL (32-36); Mean Corpuscular Hgb 33.1 pg (27.0-32.0); Mean Corpuscular Volume 103.6 fL (81-99); Mean Platelet Vol. 9.8 fl (6.2-12.0); Monocyte# 0.13 X10^3/uL; Monocyte% 7.1 % (0-10); NRBC Flagged by Analyzer 0 % (0-5); Neutrophil # 1.42 X10^3/uL (2.7-7.7); Neutrophil % 77.7 % (47-70); POSITIVE COUNT YES; POSITIVE DIFFERENTIAL YES; RBC Distribution Width CV 17.1 % (11.6-14.6); RBC Distribution Width SD 64.9 fl (35.1-43.9); Red Blood Count 2.48 M/mm3 (4.2-5.4); White Blood Count 1.8 K/mm3 (4.4-11.0)
[2019-12-07 12:28] LABS: Differential Indicated SCAN CRITERIA MET; Platelet Count 49 K/mm3 (150-450)
[2019-12-07 12:46] VITALS: BP 95/49; PULSE 85; RESP 16; O2SAT 100
[2019-12-07 12:51] LABS: Platelet Estimate MOD DEC (ADEQ)
[2019-12-08 11:47] LABS: Pathologist Review Reviewed
== END ==
LOC: US 10:23 → MEDOUTP 11:28
PROVIDERS: Family Provider Family Medicine; PCP Family Medicine; Referring Provider Internal Medicine Gastroenterology; Visit Provider Internal Medicine Gastroenterology
DX: R18.8 Other ascites (principal); D64.9 Anemia, unspecified; E03.9 Hypothyroidism, unspecified; K74.60 Unspecified cirrhosis of liver
CPT/HCPCS: 96365; 49083; 84443; 85025; P9047; A4216

== ENCOUNTER → 2019-12-14 10:26 | Outpatient (CLI) | payer MEDICARE, SELFPAY ==
[2019-05-04 11:25] VITALS: BMI 31.4
[2019-12-07 11:45] VITALS: BMI 32.5
--- NOTE | 2019-12-14 10:28 | US_ITS ---
PROCEDURE: ULTRASOUND GUIDED PARACENTESIS CLINICAL HISTORY: Female, 74 years old. ASCITES CONSENT: Informed consent obtained Time-Out Called: Yes. Consent form signed: Yes. PT-PTT Levels Checked: Yes. SEDATION: Local sedation with 2% Xylocaine TECHNIQUE: Sonographically guided FINDINGS: FLUID PRE-PROCEDURE There is posterior enhancement. The findings appear anechoic. There is no loculation. After informed consent was obtained, patient was placed in the supine position on the sonographic table, and an appropriate site for paracentesis was marked. The area was prepped and draped in a sterile manner, and 2% Xylocaine was used as local anesthetic. Under sonographic guidance, a 15-gauge Yeuh catheter was placed into the peritoneal cavity and approximately 6300 mL of straw-colored serous fluid was withdrawn from the abdomen. Patient tolerated the procedure well with no immediate complications FLUID POST-PROCEDURE Amount of fluid drained: 6300 ml. US/Paracentesis with US IMPRESSION: Successful sonographically guided paracentesis Electronically Signed: Ish Alcocer MD at 12:20 EDT , Service support ,
[2019-12-14 11:33] VITALS: BP 113/55; BP 123/63; BP 132/83; BP 136/73; BP 144/68; PULSE 104; PULSE 89; PULSE 93; PULSE 94; PULSE 96; RESP 16; RESP 18; TEMP 36.8; O2SAT 100; O2SAT 99
[2019-12-14] MEDS: 0.9% NaCl Peripheral Flush Adult/Peds IV ×2 (11:40→13:10)
[2019-12-14 11:43] VITALS: BP 102/50; PULSE 87; RESP 16; TEMP 36.6; O2SAT 100; BMI 32.3
[2019-12-14] MEDS: Albumin Human 25% (50 mL) 12.5 GM/50 ML IV.SOLN IV (12:33)
== END ==
LOC: US 10:26 → MEDOUTP 11:29
PROVIDERS: Family Provider Family Medicine; PCP Family Medicine; Referring Provider Internal Medicine Gastroenterology; Visit Provider Internal Medicine Gastroenterology
DX: K74.60 Unspecified cirrhosis of liver (principal); R18.8 Other ascites
CPT/HCPCS: 96365; 49083; P9047; A4216

== ENCOUNTER → 2019-12-21 10:19 | Outpatient (CLI) | payer MEDICARE, SELFPAY ==
[2019-05-04 11:25] VITALS: BMI 31.4
[2019-12-14 11:43] VITALS: BMI 32.3
--- NOTE | 2019-12-21 10:21 | US_ITS ---
PROCEDURE: Ultrasound guided paracentesis. DATE OF EXAMINATION: December. INDICATION: Female, 74 years old. Ascites. PHYSICIAN: Rigo Britt M.D. TECHNIQUE: The risks, benefits, and alternatives to the procedure were explained to the patient. The specific risks of bleeding, infection, and damage to bowel were detailed and accepted. Witnessed informed consent was obtained. The abdomen was ultrasonographically surveyed. An appropriate pocket of fluid was identified at the right lower quadrant. The skin were cleaned and prepped in the usual sterile fashion. Using ultrasound guidance, the peritoneal cavity was accessed with a 5-Slovenian paracentesis needle/catheter system. The trocar was removed. A total of 5350 ml of harsh colored fluid were removed from the peritoneal cavity. The catheter was removed and a sterile dressing was applied. The procedure was well tolerated. US/Paracentesis with US IMPRESSION: Ultrasound guided paracentesis. Electronically Signed: Rigo Britt, at 12:25 EDT , Service support ,
[2019-12-21 11:00] VITALS: BP 115/51; BP 122/36; BP 135/71; PULSE 93; PULSE 96; PULSE 98; RESP 14; RESP 16; O2SAT 100; O2SAT 99
[2019-12-21] MEDS: 0.9 % NaCl (Sterile) Posiflush 10 mL IV (11:25)
[2019-12-21 11:29] VITALS: BP 103/49; PULSE 89; RESP 16; TEMP 36.4; O2SAT 99; BMI 31.6
[2019-12-21] MEDS: Albumin Human 25% (50 mL) 12.5 GM/50 ML IV.SOLN IV (12:07)
[2019-12-21] MEDS: 0.9% NaCl VAD Flush IV (13:04)
== END ==
LOC: US 10:19 → MEDOUTP 12:35
PROVIDERS: Family Provider Family Medicine; PCP Family Medicine; Referring Provider Internal Medicine Gastroenterology; Visit Provider Internal Medicine Gastroenterology
DX: K74.60 Unspecified cirrhosis of liver (principal); R18.8 Other ascites
CPT/HCPCS: 96365; 49083; P9047; A4216

== ENCOUNTER 2019-12-24 09:00 | Emergency (ER) | payer MEDICARE, SELFPAY ==
[2019-12-21 11:29] VITALS: BMI 31.6
[2019-12-24 09:01] VITALS: BP 141/58; PULSE 68; RESP 18; TEMP 36.4; O2SAT 100; BMI 29.8
--- NOTE | 2019-12-24 09:19 | CT_ITS ---
STUDY: CT ABDOMEN AND PELVIS WITHOUT CONTRAST REASON FOR EXAM: Female, 74 years old. EPIGASTRIC PAIN RADIATION DOSAGE (If Supplied By Facility): CTDIvol = ( 16.72 ) mGy, DLP = ( 839.56 ) mGycm TECHNIQUE: Transaxial images were obtained from the dome of the diaphragm to the symphysis pubis without oral contrast, and without intravenous contrast. Sagittal and coronal images were reconstructed. Individualized dose optimization techniques were used for this CT. COMPARISON: None. FINDINGS: The visualized lung bases are unremarkable. The visualized portions of the heart are within normal limits. Slightly lobulated liver suggestive for cirrhosis. Cholelithiasis. Significant dilatation of the biliary system. Enlarged spleen. Normal pancreas. Moderate ascites. Normal bilateral adrenal glands. 3 mm lower pole stone in the right kidney. Up to 7 mm stones in the left kidney. Prominent hiatal hernia. Possible gastric wall thickening versus incomplete distention of the stomach. Normal small intestine. Diverticulosis of the colon. The appendix is not visualized. Normal abdominal aorta. Normal inferior vena cava. Normal retroperitoneum. Normal urinary bladder. Significant pelvic free fluid. Umbilical hernia containing ascites. Normal osseous structures. CT/Abdomen/Pelvis without Cont IMPRESSION: Possible hepatic cirrhosis. Splenomegaly. Ascites and pelvic fluid. Colonic diverticulosis. Hiatal hernia. Possible gastric wall thickening. Correlation with endoscopy if needed. Fluid-containing umbilical hernia. Nonobstructive bilateral renal calculi. Cholelithiasis. Electronically Signed: Fabricio Short DO at 10:30 EDT Tel [phone], Service support ,
--- NOTE | 2019-12-24 09:20 | ED.DCSUM_ITS ---
- ER Visit Summary Date of Service: 12/24/19 Chief Complaint: Abdominal pain History of Present Illness: The patient is a 74 F who presents with abdominal pain for the past week. Patient states the pain has been constant for the past week. Patient describes as a pressure and aching. Patient states pain is over the epigastric area. Patient states it is better when she lays down and rubs the area. Patient states nothing seems to make it worse. Patient admits to nausea but denies any vomiting. Patient admits to some diarrhea and some melena. Patient denies any dysuria or hematuria. Patient states she was supposed to have a colonoscopy but has not followed up with this yet. Physical Examination: Vital signs are stable. Patient is afebrile. Patient is in no acute distress. Oral mucosa is pink and moist. Neck is supple. Trachea is midline. There is no JVD. Heart was regular rate and rhythm. Lungs are clear and equal bilaterally. Abdomen is soft. Bowel sounds are normal. There is tenderness over the epigastric area. There is no rebound or guarding noted. Cranial nerves II through XII are intact. There are no focal motor or sensory deficits noted. Extremities are intact. There is no calf tenderness or edema. Rectal exam showed good sphincter tone. There is brown stool which was Hemoccult positive. Test Results: CBC shows a pancytopenia with white blood cell count of 3.6, hemoglobin of 7.9, and platelet count of 74. Patient does have a history of pancytopenia. Previous hemoglobin was 8.23 weeks ago. Basic metabolic profile showed an elevated BUN of 78 and creatinine of 2.86. These were consistent with prior results. Potassium was elevated at 7.4. Urinalysis does not show any evidence of urinary tract infection. EKG showed normal sinus rhythm with a rate of 60. There was peaking of the T waves especially in leads V1 and V2. CT scan of the abdomen pelvis was obtained. There is ascites and diverticulosis. There is some mild gastric wall thickening. Stool for occult blood was positive. Emergency Department Course and Treatment: Patient was given Zofran and morphine initially. Because of the hyperkalemia, patient was given calcium gluconate, insulin, dextrose, and Kayexalate. Case was discussed with Dr. Rosales, surgeon on-call. She recommended transferring the patient because of the patient's history of cirrhosis in the possibility of esophageal varices. Patient and family requested [facility]. Case was discussed with Dr. Schaeffer. He accepted the transfer the patient. Patient will be transferred to [facility]. Patient and family understand and are agreeable with the plan. All questions were answered. Disposition: Transfer to [facility] Impression: 1. Gastrointestinal bleeding 2. Hyperkalemia Critical care time: 30 minutes. This was time spent obtaining history, performing physical exam, discussion with family and patient, reviewing old records, discussion with consultants, interpreting test results, providing treatment, and determining disposition This note was generated with [employer] dictation software. It may contain incorrect words, spelling, and punctuation that were not noted in review of the chart prior to signing ED Disposition - Plan for ED Patient: Disposition: Acute Care Hospital - Other Diagnosis: Gastrointestinal bleeding, Hyperkalemia Referrals: Nicola Bay MD [Primary Care Provider] -
[2019-12-24] MEDS: Ondansetron 4 MG/2 ML Vial IV (09:48)
[2019-12-24 10:00] LABS: Absolute Lymphocyte Count 0.32 X10^3/uL (0.83-4.51); Absolute Neutrophil Count 1.8 X10^3/uL (2.0-7.7); Basophil# 0.02 X10^3/uL; Basophil% 0.8 % (0-1); Eosinophil# 0.21 X10^3/uL; Eosinophils% 8.1 % (0-5); Hemoglobin 7.9 g/dL (12.0-15.0); Lymphocyte # 0.32 X10^3/ul (4.0); Lymphocyte % 12.4 % (19-41); Mean Corp Hgb Conc 31.6 g/dL (32-36); Mean Corpuscular Hgb 32.6 pg (27.0-32.0); Mean Corpuscular Volume 103.3 fL (81-99); Mean Platelet Vol. 9.6 fl (6.2-12.0); Monocyte# 0.21 X10^3/uL; Monocyte% 8.1 % (0-10); NRBC Flagged by Analyzer 0 % (0-5); Neutrophil # 1.82 X10^3/uL (2.7-7.7); Neutrophil % 70.2 % (47-70); POSITIVE COUNT YES; POSITIVE DIFFERENTIAL YES; Platelet Count 74 K/mm3 (150-450); RBC Distribution Width CV 15.9 % (11.6-14.6); RBC Distribution Width SD 59.6 fl (35.1-43.9); Red Blood Count 2.42 M/mm3 (4.2-5.4); White Blood Count 2.6 K/mm3 (4.4-11.0)
[2019-12-24 10:01] LABS: Differential Indicated SCAN CRITERIA MET
[2019-12-24 10:25] LABS: ALB/GLOB Ratio 0.8 RATIO (0.9-2.4); AST(SGOT) 18 U/L (15-37); Alanine Aminotransfer ALT/SGPT 37 U/L (13-56); Albumin, Serum 2.6 g/dL (3.2-5.0); Alkaline Phosphatase 140 U/L (45-117); Anion Gap 4 (5-15); BUN 78 mg/dL (7-18); BUN/Creat Ratio 27.3 RATIO (10-20); Calcium,Total 9.1 mg/dL (8.5-10.1); Chloride 112 mmol/L (98-107); Creatinine, Serum 2.86 mg/dL (0.55-1.02); EST Glomerular Filtration Rate 17 mL/min (>60); Est Glom Filt Rate - Afr Amer 21 mL/min (>60); Estimated Creatinine Clearance 13.86 ml/min; Globulin 3.4 g/dL (2.2-4.2); Glucose 261 mg/dL (74-106); Lipase 300 U/L (73-393); Potassium 7.4 mmol/L (3.5-5.1); Sodium Level 137 mmol/L (136-145)
--- NOTE | 2019-12-24 10:27 | EKG12_ITS ---
Test Reason : Blood Pressure : / mmHG Vent. Rate : 060 BPM Atrial Rate : 060 BPM P-R Int : 158 ms QRS Dur : 088 ms QT Int : 416 ms P-R-T Axes : 035 002 038 degrees QTc Int : 416 ms Normal sinus rhythm Normal ECG Confirmed by NICOLA SHAW, HAILEY ([id number]), commissioning editor JOSE JONES ([id number]) on 12/26/2019 11:03:20 AM Referred By: HANS Confirmed By:HAILEY PETERSEN MD
[2019-12-24 10:28] LABS: Hypochromasia 2+; Macrocytosis RARE; Platelet Estimate MOD DEC (ADEQ)
[2019-12-24 10:39] LABS: Mucous, Urine 0 SEEN /hpf (<or=2+); Red Blood Cells-Urine 0 SEEN /hpf (0-5)
[2019-12-24 10:43] LABS: Color, Urine Yellow (Yellow); Glucose, Dipstick 50 mg/dl (Normal); Ketone-Dipstick Negative (Negative); Leukocyte Esterase-Dipstick 500 /ul (Negative); Nitrite-Dipstick Negative (Negative); Occult Blood-Urine Negative /ul (Negative); Protein-Dipstick 15 mg/dl (Negative); Specific Gravity, Urine 1.015 (1.002-1.030); Urine Bilirubin Dipstick Negative (Negative); Urine Clarity Sl. Cloudy (Clear); Urine Urobilinogen Normal (Normal)
[2019-12-24 10:50] LABS: Bacteria RARE /hpf (None Seen); Squamous Epithelial Cells - UA 0-5 SEEN /hpf (5-10); Transitional Epithelial - Ur 0-5 SEEN /hpf (0-5); White Blood Cells 5-10 SEEN /hpf (0-5)
[2019-12-24] MEDS: Insulin Lispro 5 UNIT in Syringe 0 ML 3 UNIT IV (11:25)
[2019-12-24] MEDS: Dextrose 50%-Water 25 GM/50 ML DISP.SYRIN IV (11:25)
[2019-12-24] MEDS: Calcium Gluconate 1 GM/10 ML Vial IV (11:28)
[2019-12-24] MEDS: Sodium Polystyrene Sulfonate 15 GM/60 ML UDC 30 GM PO (11:28)
[2019-12-24 14:56] VITALS: BP 111/43; PULSE 83; RESP 14; TEMP 36.4; O2SAT 100
[2019-12-24 16:50] LABS: Potassium 5.6 mmol/L (3.5-5.1)
[2019-12-24 17:02] VITALS: BP 110/50; PULSE 83; RESP 18; O2SAT 100
[2019-12-25 11:42] LABS: Pathologist Review Reviewed
== END 2019-12-24 17:04 | disposition short-term general hospital (02) ==
PROVIDERS: Emergency Provider Emergency Medicine; PCP Family Medicine
DX: K92.2 Gastrointestinal hemorrhage, unspecified (principal); E87.5 Hyperkalemia; E03.9 Hypothyroidism, unspecified
CPT/HCPCS: 36591; 74176; 80053; 81001; 82274; 83690; 84132; 85025; 87077; 87086; 87088; 87186; 93005; 96374; 99285; J7030; J7050; A4216; J0610; J2405

== ENCOUNTER → 2019-12-28 09:43 | Outpatient (CLI) | payer MEDICARE, SELFPAY ==
[2019-05-04 11:25] VITALS: BMI 31.4
[2019-12-24 09:01] VITALS: BMI 29.8
--- NOTE | 2019-12-28 09:47 | US_ITS ---
PROCEDURE: Ultrasound guided paracentesis. DATE OF EXAMINATION: December 28, 2019. INDICATION: Female, 74 years old. Ascites. PHYSICIAN: Rigo Britt M.D. TECHNIQUE: The risks, benefits, and alternatives to the procedure were explained to the patient. The specific risks of bleeding, infection, and damage to bowel were detailed and accepted. Witnessed informed consent was obtained. The abdomen was ultrasonographically surveyed. An appropriate pocket of fluid was identified at the left lower quadrant. The skin were cleaned and prepped in the usual sterile fashion. Using ultrasound guidance, the peritoneal cavity was accessed with a 5-Syriac paracentesis needle/catheter system. The trocar was removed. A total of 6200 ml of harsh-colored fluid were removed from the peritoneal cavity. The catheter was removed and a sterile dressing was applied. The procedure was well tolerated. US/Paracentesis with US IMPRESSION: Ultrasound guided paracentesis. Electronically Signed: Rigo Britt, at 11:17 EDT , Service support ,
[2019-12-28] MEDS: 0.9% Saline Lock 10 ML Syringe IV ×3 (10:00→12:13)
[2019-12-28 10:30] VITALS: BP 104/59; BP 92/50; BP 93/52; PULSE 62; PULSE 65; PULSE 70; RESP 14; O2SAT 100; O2SAT 95; O2SAT 97
[2019-12-28 11:03] VITALS: BP 96/43; PULSE 68; RESP 16; TEMP 36.2; O2SAT 99; BMI 32.1
[2019-12-28] MEDS: Albumin Human 25% (50 mL) 12.5 GM/50 ML IV.SOLN IV (11:13)
[2019-12-28 12:15] VITALS: BP 73/42; PULSE 62; RESP 16; TEMP 36.1; O2SAT 100
== END ==
LOC: US 09:44 → MEDOUTP 10:59
PROVIDERS: Family Provider Family Medicine; PCP Family Medicine; Referring Provider Internal Medicine Gastroenterology; Visit Provider Internal Medicine Gastroenterology
DX: K74.60 Unspecified cirrhosis of liver (principal); E11.65 Type 2 diabetes mellitus with hyperglycemia; E11.22 Type 2 diabetes mellitus with diabetic chronic kidney disease; I12.9 Hypertensive chronic kidney disease with stage 1 through stage 4 chronic kidney disease, or unspecified chronic kidney disease; N18.4 Chronic kidney disease, stage 4 (severe); E03.9 Hypothyroidism, unspecified; E21.2 Other hyperparathyroidism; D63.1 Anemia in chronic kidney disease
CPT/HCPCS: 96365; 49083; P9047; A4216

== ENCOUNTER → 2020-01-04 10:25 | Outpatient (CLI) | payer MEDICARE, SELFPAY ==
[2019-05-04 11:25] VITALS: BMI 31.4
[2020-01-04 08:38] VITALS: BMI 32.5
--- NOTE | 2020-01-04 10:27 | US_ITS ---
PROCEDURE: Ultrasound guided paracentesis. DATE OF EXAMINATION: January 04, 2020. INDICATION: Female, 74 years old. Ascites. PHYSICIAN: Rigo Britt M.D. TECHNIQUE: The risks, benefits, and alternatives to the procedure were explained to the patient. The specific risks of bleeding, infection, and damage to bowel were detailed and accepted. Witnessed informed consent was obtained. The abdomen was ultrasonographically surveyed. An appropriate pocket of fluid was identified at the right lower quadrant. The skin were cleaned and prepped in the usual sterile fashion. Using ultrasound guidance, the peritoneal cavity was accessed with a 5-Iraqi paracentesis needle/catheter system. The trocar was removed. A total of 5250 ml of harsh-colored fluid were removed from the peritoneal cavity. The catheter was removed and a sterile dressing was applied. The procedure was well tolerated. US/Paracentesis with US IMPRESSION: Ultrasound guided paracentesis. Electronically Signed: Rigo Britt, at 12:09 EDT , Service support ,
[2020-01-04 10:36] VITALS: BP 100/44; BP 109/54; BP 137/68; PULSE 79; PULSE 80; PULSE 96; RESP 16; TEMP 36.8; O2SAT 94; O2SAT 98; O2SAT 99
[2020-01-04] MEDS: 0.9 % NaCl (Sterile) Posiflush 10 mL IV (11:20)
[2020-01-04 11:22] VITALS: BP 93/46; PULSE 78; RESP 16; TEMP 35.9; O2SAT 100; BMI 32.5
[2020-01-04] MEDS: Albumin Human 25% (50 mL) 12.5 GM/50 ML IV.SOLN IV (11:35)
[2020-01-04] MEDS: 0.9% NaCl VAD Flush IV (12:13)
== END ==
LOC: US 10:26 → MEDOUTP 11:13
PROVIDERS: Family Provider Family Medicine; PCP Family Medicine; Referring Provider Internal Medicine Gastroenterology; Visit Provider Internal Medicine Gastroenterology
DX: R18.8 Other ascites (principal); K74.60 Unspecified cirrhosis of liver
CPT/HCPCS: 96365; 49083; P9047; A4216

== ENCOUNTER 2020-01-08 14:00 | Emergency (ER) | payer MEDICARE, SELFPAY ==
[2020-01-08 14:00] VITALS: BMI 32.1
[2020-01-08 14:03] VITALS: BP 135/69; PULSE 96; RESP 16; TEMP 36.8; O2SAT 99; BMI 30.2
--- NOTE | 2020-01-08 14:31 | ED.DCSUM_ITS ---
- ER Visit Summary Date of Service: 01/08/20 Chief Complaint: Diarrhea with black stool multiple episodes of the last 2 days History of Present Illness: The patient is a 74 F history of insulin-dependent diabetes, anemia, ascites, cirrhosis, Forrester, renal insufficiency, prior blood transfusions, esophageal varices and prior upper GI bleed. Was hospitalized here about a month ago and transferred to [facility] by [facility] [place] for endoscopy by 1 of their cheese cooker. Patient has had a lot of diarrhea last 2 to 3 days and over the last 2 days he has had multiple symptoms of black stool. Denies any hematemesis. Denies any abdominal pain. Denies any fever. Denies any nausea. She is on no blood thinners. Physical Examination: Elderly female currently no acute distress sitting upright in bed initial blood pressure 135/69 afebrile. Pulse ox 9 9%. She is in no distress. HEENT exam unremarkable. Moist weeks membranes. Neck nontender. Lungs clear to auscultation bilaterally. Heart regular rhythm rate about 95 no murmur. Abdomen distended due to ascites but nontender. Soft. No peritoneal signs. Remedies moves all 4. Calves are nontender. Neurologically she is awake and alert with no focal motor deficits. Test Results: CBC shows a white count of 2 hemoglobin 8.5 which is her baseline Chronic anemia. Hematocrit 25. Chemistries gap of 7 glucose 373 BUN 123 previously was 78 creatinine 3.44 previously 2.8 both consistent with dehydration, renal insufficiency and upper GI bleed. Liver enzymes are unremarkable alk phos 137 PT PTT INR unremarkable. INR is 1 and PTT is 31 Emergency Department Course and Treatment: Patient will be started on Protonix. Labs will be obtained. Along with a type and screen. Most likely she will need transferred back to [facility] [place] to be seen by 1 of their cheese cooker. Treatment Plan: Repeat exam patient is doing well at 1620 2 PM. She has had no further black or bloody bowel movements while in the emergency department. He is resting comfortably. Her blood pressure is around 140/ 70. I have [facility] on page for transfer. I spoke with her transfer line and their hospitalist at 1708 p.m. he is willing to accept the patient in transfer we are waiting for a bed and ambulance. Disposition: Transfer Impression: Acute upper GI bleed with melanotic stool History of esophageal varices History of Forrester and liver cirrhosis History of insulin-dependent diabetes History of ascites History of prior upper GI bleeds with blood transfusions This note was generated with [employer] dictation software. It may contain incorrect words, spelling, and punctuation that were not noted in review of the chart prior to signing ED Disposition - Plan for ED Patient: Referrals: Nicola Bay MD [Primary Care Provider] -
[2020-01-08 15:02] LABS: Absolute Neutrophil Count 1.8 X10^3/uL (2.0-7.7); Basophil# 0.01 X10^3/uL; Basophil% 0.4 % (0-1); Eosinophil# 0.18 X10^3/uL; Eosinophils% 7.4 % (0-5); Hematocrit 25.7 % (37-47); Hemoglobin 8.5 g/dL (12.0-15.0); Lymphocyte % 8.2 % (19-41); Mean Corp Hgb Conc 33.1 g/dL (32-36); Mean Corpuscular Hgb 32.6 pg (27.0-32.0); Mean Corpuscular Volume 98.5 fL (81-99); Mean Platelet Vol. 9.8 fl (6.2-12.0); Monocyte# 0.24 X10^3/uL; Monocyte% 9.9 % (0-10); NRBC Flagged by Analyzer 0 % (0-5); Neutrophil # 1.79 X10^3/uL (2.7-7.7); Neutrophil % 73.7 % (47-70); POSITIVE COUNT YES; POSITIVE DIFFERENTIAL YES; Platelet Count 62 K/mm3 (150-450); RBC Distribution Width CV 15.2 % (11.6-14.6); RBC Distribution Width SD 55.4 fl (35.1-43.9); Red Blood Count 2.61 M/mm3 (4.2-5.4); White Blood Count 2.4 K/mm3 (4.4-11.0)
[2020-01-08] MEDS: 0.9% Normal Saline 1,000 ML 15 ML IV (15:07)
[2020-01-08 15:09] LABS: International Normalized Ratio 1.1; Prothrombin Time (Protime)PT. 13.8 SECONDS (11.7-14.9)
[2020-01-08 15:21] LABS: ALB/GLOB Ratio 0.8 RATIO (0.9-2.4); AST(SGOT) 18 U/L (15-37); Alanine Aminotransfer ALT/SGPT 54 U/L (13-56); Albumin, Serum 2.6 g/dL (3.2-5.0); Alkaline Phosphatase 137 U/L (45-117); Anion Gap 7 (5-15); BUN 123 mg/dL (7-18); BUN/Creat Ratio 35.8 RATIO (10-20); Chloride 108 mmol/L (98-107); Creatinine, Serum 3.44 mg/dL (0.55-1.02); EST Glomerular Filtration Rate 14 mL/min (>60); Est Glom Filt Rate - Afr Amer 17 mL/min (>60); Estimated Creatinine Clearance 11.52 ml/min; Globulin 3.3 g/dL (2.2-4.2); Glucose 377 mg/dL (74-106); Potassium 5.3 mmol/L (3.5-5.1); Protein, Total 5.9 g/dL (6.4-8.2); Sodium Level 136 mmol/L (136-145)
--- NOTE | 2020-01-08 15:24 | ED.RN ---
LAB WITH CRITICAL VALUE OF BUN 123. DR MINOR NOTIFIED AT THIS TIME.
[2020-01-08] MEDS: 0.9% Normal Saline 1,000 ML 999 ML IV (15:36)
[2020-01-08 15:55] LABS: Differential Indicated SCAN CRITERIA MET
[2020-01-08 16:01] LABS: Differential Comment SCANNED
[2020-01-08 17:07] VITALS: BP 117/86; PULSE 81; RESP 16; O2SAT 97
--- NOTE | 2020-01-08 18:03 | ED.RN ---
attempted to call reports nurse at receiving hospital not available to return call.
[2020-01-08 18:29] VITALS: BP 102/51; PULSE 71; RESP 16; TEMP 36.6; O2SAT 97
== END 2020-01-08 19:37 | disposition short-term general hospital (02) ==
LOC: ED 14:31
PROVIDERS: Emergency Provider Emergency Medicine; PCP Family Medicine
DX: K92.2 Gastrointestinal hemorrhage, unspecified (principal); E11.9 Type 2 diabetes mellitus without complications; Z79.4 Long term (current) use of insulin
CPT/HCPCS: 36591; 80053; 85025; 85610; 85730; 86850; 86900; 86901; 96361; 96365; 99285; J7030; A4216

== ENCOUNTER → 2020-01-18 10:14 | Outpatient (CLI) | payer MEDICARE, SELFPAY ==
[2019-05-04 11:25] VITALS: BMI 31.4
[2020-01-08 14:03] VITALS: BMI 30.2
--- NOTE | 2020-01-18 10:16 | US_ITS ---
PROCEDURE: Ultrasound guided paracentesis. DATE OF EXAMINATION: 01/18/2020. INDICATION: Female, 74 years old. Ascites. PHYSICIAN: Rigo Britt M.D. TECHNIQUE: The risks, benefits, and alternatives to the procedure were explained to the patient. The specific risks of bleeding, infection, and damage to bowel were detailed and accepted. Witnessed informed consent was obtained. The abdomen was ultrasonographically surveyed. An appropriate pocket of fluid was identified at the right lower quadrant. The skin were cleaned and prepped in the usual sterile fashion. Using ultrasound guidance, the peritoneal cavity was accessed with a 5-Vincentian paracentesis needle/catheter system. The trocar was removed. A total of 6100 ml of harsh-colored fluid were removed from the peritoneal cavity. The catheter was removed and a sterile dressing was applied. The procedure was well tolerated. US/Paracentesis with US IMPRESSION: Ultrasound guided paracentesis. Electronically Signed: Rigo Britt, at 12:43 EDT , Service support ,
[2020-01-18 11:30] VITALS: BP 107/49; BP 120/57; BP 138/57; BP 147/61; PULSE 101; PULSE 110; PULSE 96; PULSE 99; RESP 14; RESP 16; TEMP 37.1; O2SAT 100
[2020-01-18 11:50] VITALS: BP 103/54; PULSE 95; RESP 14; O2SAT 95; BMI 32.5
[2020-01-18] MEDS: Albumin Human 25% (50 mL) 12.5 GM/50 ML IV.SOLN IV (12:15)
[2020-01-18 12:21] LABS: Hematocrit 23.8 % (37-47); Hemoglobin 7.9 g/dL (12.0-15.0); Mean Corp Hgb Conc 33.2 g/dL (32-36); Mean Corpuscular Volume 96.4 fL (81-99); POSITIVE COUNT YES; Platelet Count 60 K/mm3 (150-450); RBC Distribution Width CV 15.5 % (11.6-14.6); RBC Distribution Width SD 54.1 fl (35.1-43.9); Red Blood Count 2.47 M/mm3 (4.2-5.4); White Blood Count 2.4 K/mm3 (4.4-11.0)
[2020-01-18 13:07] VITALS: BP 99/58; PULSE 96; RESP 16; O2SAT 100
[2020-01-18 20:06] LABS: Xtra Tube EP Lab EXTRA TUBE
== END ==
LOC: US 10:15 → MEDOUTP 11:31
PROVIDERS: Family Provider Family Medicine; PCP Family Medicine; Referring Provider Internal Medicine Gastroenterology; Visit Provider Internal Medicine Gastroenterology
DX: K74.60 Unspecified cirrhosis of liver (principal); D64.9 Anemia, unspecified; R18.8 Other ascites
CPT/HCPCS: 96365; 49083; 85027; P9047; A4216

== ENCOUNTER 2020-01-22 14:41 | Emergency (ER) | payer MEDICARE, SELFPAY ==
[2020-01-18 11:50] VITALS: BMI 32.5
[2020-01-22 14:42] VITALS: BP 114/71; PULSE 106; RESP 17; TEMP 36.4; O2SAT 99; BMI 30.2
--- NOTE | 2020-01-22 14:57 | EKG12_ITS ---
Test Reason : Blood Pressure : / mmHG Vent. Rate : 102 BPM Atrial Rate : 102 BPM P-R Int : 150 ms QRS Dur : 090 ms QT Int : 340 ms P-R-T Axes : 024 000 026 degrees QTc Int : 443 ms Sinus tachycardia Otherwise normal ECG Confirmed by NATALY SHAW, EMILY ([id number]), film and video editor LUISA SMITH ([id number]) on 01/24/2020 10:55:41 AM Referred By: ANGEL Confirmed By:EMILY INGRAM MD
--- NOTE | 2020-01-22 14:57 | ED.VIS.GEN ---
History of Present Illness Chief Complaint: Abn Labs Informant: Patient Onset: Today Quality: elevated potassium and glucose; no other known details Associated Symptoms: only urinary frequency Narrative: Patient sees Dr. Price for hematology, due to low iron levels. She had some routine blood work done this morning and she was called and advised to go to the ER due to an elevated potassium level and glucose level. She is a diabetic. She has had no symptoms other than urinary frequency for the last couple days, and no recent illness or fever. 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 Status: Chronic (7) Pancytopenia Status: Chronic (8) Secondary hyperparathyroidism Status: Chronic (9) TIA (transient ischemic attack) Status: Chronic (10) Venous insufficiency (chronic) (peripheral) Status: Chronic (11) Hypercalcemia Status: Inactive Past Medical History - Allergies and Home Meds Allergies/Adverse Reactions: Allergies clarithromycin [From Biaxin] Allergy (Verified 01/22/20 14:42) Unknown iodine Allergy (Verified 01/22/20 14:42) Unknown Primary Care Physician: Nicola Bay MD [Primary Care Provider] - Surgical History: mastectomy, - - Patient has had a right mastectomy and appendectomy. She is a Ab0. Right IJ Port-A-Cath Lives: Alone Smoking Status: Never smoker - Family History Sibling Family History: Family History (Last Reviewed 01/04/20 @ 10:[address] Prem Barnes MD) Father CHF (congestive heart failure) Heart disease Mother CVA (cerebral vascular accident) Family History: Reports: Cancer Review of Systems General: Denies: Chills, Fever, Sweats Eyes: Denies: Visual changes - bilaterally, Diplopia ENT: Denies: Bilateral ear pain, Rhinorrhea, Sore throat Cardiovascular: Denies: Chest pain, Palpitations Respiratory: Denies: Dyspnea, Cough, Dyspnea on exertion Gastrointestinal: Reports: - - Chronic abdominal distention due to ascites. Denies: Abdominal pain, Nausea, Vomiting, Diarrhea, Melena, Hematochezia Genitourinary: Reports: Frequency. Denies: Dysuria, Hematuria Musculoskeletal: Denies: Myalgias, Back pain, Extremity Pain Skin: Denies: Rash, Wounds Neurological: Denies: Headache, Weakness, Numbness Hematologic: Reports: Easy bruising, Easy bleeding Physical Exam Vital Signs/Narrative: Vital Signs Temp Pulse Resp BP Pulse Ox 01/22/20 14:42 97.5 F L 106 H 17 114/71 99 Inital Vital Signs reviewed: Yes General: Well nourished, Well developed, No Acute Distress Head: Normocephalic, Atraumatic Eyes: Perrl, EOMI ENT: Moist mucous membranes, No rhinorrhea Neck: Supple, Nontender, No JVD Cardiovascular: Regular rate, Regular rhythm, Murmur - Systolic 2/6 Respiratory: No distress, CTA bilaterally, Chest nontender Abdomen: Soft, Nontender, Normal bowel sounds, - - Abdomen soft, mildly distended with a mild fluid wave, but not tight Back: Nontender, Normal Inspection. Negative for: CVA tenderness Extremities: Nontender, No edema Skin: Normal color, No rash, Trauma - Aging ecchymoses left forearm, skin intact without sign of infection Neurological: Alert, Oriented x3, Cranial nerves II-XII grossly intact, Normal Strength, Normal Sensation Psychological: Normal affect, Normal Mood Diagnostic/Tx/Re-eval Laboratory Tests 01/22/20 01/22/20 01/22/20 Range/Units 19:00 18:15 15:45 WBC (4.4-11.0) K/mm3 RBC (4.2-5.4) M/mm3 Hgb (12.0-15.0) g/dL Hct (37-47) % MCV (81-99) fL MCH (27.0-32.0) pg MCHC (32-36) g/dL RDW Std Deviation (35.1-43.9) fl RDW Coeff of Mary Alice (11.6-14.6) % Plt Count (150-450) K/mm3 MPV (6.2-12.0) fl Immature Gran % (Auto) (0.0-0.9) % Neut % (Auto) (47-70) % Lymph % (Auto) (19-41) % Freestone % (Auto) (0-10) % Eos % (Auto) (0-5) % Baso % (Auto) (0-1) % Absolute Neuts (auto) (2.0-7.7) X10^3/uL Absolute Lymphs (auto) (0.83-4.51) X10^3/uL Nucleated RBC % (0-5) % Differential Comment Diff Path Review Platelet Estimate (ADEQ) RBC Morphology (NORM C&C) NORMAL Sodium 134 L (136-145) mmol/L Potassium 4.8 6.0 H* (3.5-5.1) mmol/L Chloride 106 (98-107) mmol/L Carbon Dioxide 21.0 (21.0-32.0) mmol/L Anion Gap 7 (5-15) BUN 91 H (7-18) mg/dL Creatinine 3.19 H (0.55-1.02) mg/dL Estim Creat Clear Calc 12.42 ml/min Est GFR (MDRD) Af Amer 18 L (>60) mL/min Est GFR (MDRD) Non-Af 15 L (>60) mL/min BUN/Creatinine Ratio 28.5 H (10-20) RATIO Glucose 539 H* (74-106) mg/dL Calcium 9.3 (8.5-10.1) mg/dL Urine Color (Yellow) Urine Clarity (Clear) Urine pH (5.0 - 8.0) Ur Specific [place] (1.002-1.030) Urine Protein (Negative) mg/dl Urine Glucose (UA) (Normal) mg/dl Urine Ketones (Negative) mg/dl Urine Occult Blood (Negative) /ul Urine Nitrite (Negative) Urine Bilirubin (Negative) mg/dL Urine Urobilinogen (Normal) mg/dl Ur Leukocyte Esterase (Negative) /ul Urine RBC (0-5) /hpf Urine WBC (0-5) /hpf Ur Squamous Epith Cells (5-10) /hpf Amorphous Sediment Urine Bacteria (None Seen) /hpf Urine Mucus (<or=2+) /hpf POC Glucose 406 H (70-110) mg/dL 01/22/20 01/22/20 Range/Units 15:45 14:00 WBC 2.8 L (4.4-11.0) K/mm3 RBC 2.37 L (4.2-5.4) M/mm3 Hgb 7.5 L (12.0-15.0) g/dL Hct 22.7 L (37-47) % MCV 95.8 (81-99) fL MCH 31.6 (27.0-32.0) pg MCHC 33.0 (32-36) g/dL RDW Std Deviation 54.4 H (35.1-43.9) fl RDW Coeff of Mary Alice 15.8 H (11.6-14.6) % Plt Count 75 L (150-450) K/mm3 MPV 10.1 (6.2-12.0) fl Immature Gran % (Auto) 0.400 (0.0-0.9) % Neut % (Auto) 77.8 H (47-70) % Lymph % (Auto) 9.8 L (19-41) % Freestone % (Auto) 6.2 (0-10) % Eos % (Auto) 5.1 H (0-5) % Baso % (Auto) 0.7 (0-1) % Absolute Neuts (auto) 2.2 (2.0-7.7) X10^3/uL Absolute Lymphs (auto) 0.27 L (0.83-4.51) X10^3/uL Nucleated RBC % 0 (0-5) % Differential Comment Diff Path Review May foll Platelet Estimate MOD DEC (ADEQ) RBC Morphology NORM C+C (NORM C&C) NORMAL Sodium (136-145) mmol/L Potassium (3.5-5.1) mmol/L Chloride (98-107) mmol/L Carbon Dioxide (21.0-32.0) mmol/L Anion Gap (5-15) BUN (7-18) mg/dL Creatinine (0.55-1.02) mg/dL Estim Creat Clear Calc ml/min Est GFR (MDRD) Af Amer (>60) mL/min Est GFR (MDRD) Non-Af (>60) mL/min BUN/Creatinine Ratio (10-20) RATIO Glucose (74-106) mg/dL Calcium (8.5-10.1) mg/dL Urine Color Yellow (Yellow) Urine Clarity Clear (Clear) Urine pH 5.0 (5.0 - 8.0) Ur Specific [place] 1.010 (1.002-1.030) Urine Protein Negative (Negative) mg/dl Urine Glucose (UA) 1000 H (Normal) mg/dl Urine Ketones Negative (Negative) mg/dl Urine Occult Blood Negative (Negative) /ul Urine Nitrite Negative (Negative) Urine Bilirubin Negative (Negative) mg/dL Urine Urobilinogen Normal (Normal) mg/dl Ur Leukocyte Esterase 25 H (Negative) /ul Urine RBC 0 SEEN (0-5) /hpf Urine WBC 5-10 SEEN (0-5) /hpf Ur Squamous Epith Cells 0-5 SEEN (5-10) /hpf Amorphous Sediment 1+ URATE Urine Bacteria RARE (None Seen) /hpf Urine Mucus 0 SEEN (<or=2+) /hpf POC Glucose (70-110) mg/dL - Rhythm Strip Rhythm Strip: Sinus Rhythm Rate: 100 Ectopy: None - EKG Initial EKG Interpretation: No Acute Injury Pattern, Sinus Tachycardia, - - Narrow QRS, no AV block, normal intervals and axis. Mildly peaked T waves in V2 only, no other leads, and these are unchanged compared with her prior. Prior: Unchanged - Medical Decision Making 2 weeks ago, patient's potassium was 5.3, BUN 123, creatinine 3.4, with glucose of 377. Current test results are above, with a potassium of 6.0, creatinine at is a little lower, and a glucose over 500. She was given insulin 14 units of lispro subcutaneous, in addition to a dose of Kayexalate. She has no EKG changes of hyperkalemia. After a while repeated her potassium and her glucose. Her potassium is now normal, and her glucose is coming down. She is reassured. Her renal function is improved, so I do not think she needs to be admitted to the hospital. She is comfortable with going home asymptomatic. Advised to follow-up with her doctor for a recheck within the next couple days. She is comfortable with that plan. ED Disposition - Plan for ED Patient: Disposition: Home or Assisted Living Diagnosis: CKD (chronic kidney disease) stage 4, GFR 15-29 ml/min, Hyperkalemia, Hyperglycemia due to type 2 diabetes mellitus Instructions: ED POTASSIUM EXCESS, ED Diabetic Hyperglycemia Referrals: Nicola Bay MD [Primary Care Provider] - 2 Days (For recheck) Additional Instructions: Your potassium was 6.0, we brought it down to 4.3. That is within normal range now. You had no EKG changes.
[2020-01-22 16:11] LABS: Absolute Lymphocyte Count 0.27 X10^3/uL (0.83-4.51); Absolute Neutrophil Count 2.2 X10^3/uL (2.0-7.7); Basophil# 0.02 X10^3/uL; Basophil% 0.7 % (0-1); Eosinophil# 0.14 X10^3/uL; Eosinophils% 5.1 % (0-5); Hematocrit 22.7 % (37-47); Hemoglobin 7.5 g/dL (12.0-15.0); Lymphocyte # 0.27 X10^3/ul (4.0); Lymphocyte % 9.8 % (19-41); Mean Corpuscular Hgb 31.6 pg (27.0-32.0); Mean Corpuscular Volume 95.8 fL (81-99); Mean Platelet Vol. 10.1 fl (6.2-12.0); Monocyte# 0.17 X10^3/uL; Monocyte% 6.2 % (0-10); NRBC Flagged by Analyzer 0 % (0-5); Neutrophil # 2.15 X10^3/uL (2.7-7.7); Neutrophil % 77.8 % (47-70); POSITIVE COUNT YES; POSITIVE DIFFERENTIAL YES; Platelet Count 75 K/mm3 (150-450); RBC Distribution Width CV 15.8 % (11.6-14.6); RBC Distribution Width SD 54.4 fl (35.1-43.9); Red Blood Count 2.37 M/mm3 (4.2-5.4); White Blood Count 2.8 K/mm3 (4.4-11.0)
[2020-01-22 16:11] LABS: Mucous, Urine 0 SEEN /hpf (<or=2+); Red Blood Cells-Urine 0 SEEN /hpf (0-5)
[2020-01-22 16:16] LABS: Color, Urine Yellow (Yellow); Glucose, Dipstick 1000 mg/dl (Normal); Ketone-Dipstick Negative (Negative); Leukocyte Esterase-Dipstick 25 /ul (Negative); Nitrite-Dipstick Negative (Negative); Occult Blood-Urine Negative /ul (Negative); Protein-Dipstick Negative (Negative); Urine Bilirubin Dipstick Negative (Negative); Urine Clarity Clear (Clear); Urine Urobilinogen Normal (Normal)
[2020-01-22 16:18] LABS: Differential Indicated SCAN CRITERIA MET
[2020-01-22 16:22] LABS: Anion Gap 7 (5-15); BUN 91 mg/dL (7-18); BUN/Creat Ratio 28.5 RATIO (10-20); Calcium,Total 9.3 mg/dL (8.5-10.1); Chloride 106 mmol/L (98-107); Creatinine, Serum 3.19 mg/dL (0.55-1.02); EST Glomerular Filtration Rate 15 mL/min (>60); Est Glom Filt Rate - Afr Amer 18 mL/min (>60); Estimated Creatinine Clearance 12.42 ml/min; Glucose 539 mg/dL (74-106); Sodium Level 134 mmol/L (136-145)
[2020-01-22 16:30] LABS: Amorphous Sediment 1+ URATE; Bacteria RARE /hpf (None Seen); Squamous Epithelial Cells - UA 0-5 SEEN /hpf (5-10); White Blood Cells 5-10 SEEN /hpf (0-5)
[2020-01-22] MEDS: Insulin Lispro 100 UNIT/ML INSULN.PEN 14 UNIT SC (16:45)
[2020-01-22 16:59] LABS: Platelet Estimate MOD DEC (ADEQ); Red Cell Morphology NORM C+C NORMAL (NORM C&C)
[2020-01-22] MEDS: Sodium Polystyrene Sulfonate 15 GM/60 ML UDC PO (17:22)
[2020-01-22 17:23] VITALS: BP 107/51; PULSE 100; RESP 18; O2SAT 99
[2020-01-22 18:26] LABS: Bedside Glucose 406 mg/dL (70-110)
[2020-01-22 19:13] LABS: Potassium 4.8 mmol/L (3.5-5.1)
[2020-01-22 20:08] VITALS: BP 107/65; PULSE 100; RESP 21; O2SAT 99
[2020-01-23 13:39] LABS: Pathologist Review Reviewed
== END 2020-01-22 20:18 | disposition home or self-care (01) ==
PROVIDERS: Emergency Provider Emergency Medicine; PCP Family Medicine
DX: E11.22 Type 2 diabetes mellitus with diabetic chronic kidney disease (principal); N18.4 Chronic kidney disease, stage 4 (severe); E87.5 Hyperkalemia; E11.65 Type 2 diabetes mellitus with hyperglycemia
CPT/HCPCS: 36591; 80048; 81001; 82962; 84132; 85025; 93005; 96360; 99285; J7030; A4216

== ENCOUNTER → 2020-01-25 10:19 | Outpatient (CLI) | payer MEDICARE, SELFPAY ==
[2019-05-04 11:25] VITALS: BMI 31.4
[2020-01-22 14:42] VITALS: BMI 30.2
--- NOTE | 2020-01-25 10:22 | US_ITS ---
PROCEDURE: Ultrasound guided paracentesis. DATE OF EXAMINATION: 01/25/2020. INDICATION: Female, 74 years old. Ascites. PHYSICIAN: Rigo Britt M.D. TECHNIQUE: The risks, benefits, and alternatives to the procedure were explained to the patient. The specific risks of bleeding, infection, and damage to bowel were detailed and accepted. Witnessed informed consent was obtained. The abdomen was ultrasonographically surveyed. An appropriate pocket of fluid was identified at the left lower quadrant. The skin were cleaned and prepped in the usual sterile fashion. Using ultrasound guidance, the peritoneal cavity was accessed with a 5-Latvian paracentesis needle/catheter system. The trocar was removed. A total of 6700 ml of harsh-colored fluid were removed from the peritoneal cavity. The catheter was removed and a sterile dressing was applied. The procedure was well tolerated. US/Paracentesis with US IMPRESSION: Ultrasound guided paracentesis. Electronically Signed: Rigo Britt, at 12:20 EDT , Service support ,
[2020-01-25 10:55] VITALS: BP 110/60; BP 111/54; BP 125/64; BP 135/60; PULSE 91; PULSE 95; PULSE 98; PULSE 99; RESP 18; RESP 20; RESP 22; TEMP 36.6; O2SAT 100
[2020-01-25 11:54] VITALS: BP 116/62; PULSE 94; RESP 16; TEMP 36.2; O2SAT 100; BMI 31.8
[2020-01-25] MEDS: Albumin Human 25% (50 mL) 12.5 GM/50 ML IV.SOLN IV (12:33)
== END ==
PROVIDERS: Family Provider Family Medicine; PCP Family Medicine; Referring Provider Internal Medicine Gastroenterology; Visit Provider Internal Medicine Gastroenterology
DX: K74.60 Unspecified cirrhosis of liver (principal)
CPT/HCPCS: 96365; 49083; P9047; A4216

== ENCOUNTER → 2020-02-01 10:06 | Outpatient (CLI) | payer MEDICARE, SELFPAY ==
[2019-05-04 11:25] VITALS: BMI 31.4
[2020-01-25 11:54] VITALS: BMI 31.8
--- NOTE | 2020-02-01 10:08 | US_ITS ---
PROCEDURE: Ultrasound guided paracentesis. DATE OF EXAMINATION: 02/01/2020. INDICATION: Female, 74 years old. Ascites. PHYSICIAN: Rigo Britt M.D. TECHNIQUE: The risks, benefits, and alternatives to the procedure were explained to the patient. The specific risks of bleeding, infection, and damage to bowel were detailed and accepted. Witnessed informed consent was obtained. The abdomen was ultrasonographically surveyed. An appropriate pocket of fluid was identified at the right lower quadrant. The skin were cleaned and prepped in the usual sterile fashion. Using ultrasound guidance, the peritoneal cavity was accessed with a 5-Surinamese paracentesis needle/catheter system. The trocar was removed. A total of 5400 ml of harsh-colored fluid were removed from the peritoneal cavity. The catheter was removed and a sterile dressing was applied. The procedure was well tolerated. IMPRESSION: Ultrasound guided paracentesis. Electronically Signed: Rigo Britt, at 12:12 EDT , Service support , PROCEDURE: Ultrasound guided paracentesis. DATE OF EXAMINATION: 02/01/2020. INDICATION: Female, 74 years old. Ascites. PHYSICIAN: Rigo Britt M.D. TECHNIQUE: The risks, benefits, and alternatives to the procedure were explained to the patient. The specific risks of bleeding, infection, and damage to bowel were detailed and accepted. Witnessed informed consent was obtained. The abdomen was ultrasonographically surveyed. An appropriate pocket of fluid was identified at the right lower quadrant. The skin were cleaned and prepped in the usual sterile fashion. Using ultrasound guidance, the peritoneal cavity was accessed with a 5-Surinamese paracentesis needle/catheter system. The trocar was removed. A total of 5400 ml of harsh-colored fluid were removed from the peritoneal cavity. The catheter was removed and a sterile dressing was applied. The procedure was well tolerated. US/Paracentesis with US
[2020-02-01 11:15] VITALS: BP 110/48; BP 118/48; BP 119/50; PULSE 104; PULSE 95; PULSE 97; RESP 14; TEMP 37.1; O2SAT 100; O2SAT 97; O2SAT 99
[2020-02-01 12:06] VITALS: BP 85/49; PULSE 59; RESP 14; TEMP 36.7; O2SAT 97; BMI 31.1
[2020-02-01] MEDS: Albumin Human 25% (50 mL) 12.5 GM/50 ML IV.SOLN IV (12:10)
[2020-02-01 12:46] VITALS: BP 85/47
[2020-02-01 12:50] LABS: PTHIN 877.5 pg/mL (18.4-80.1)
[2020-02-01 13:30] LABS: Vitamin D,25 Hydroxy 24.9 ng/mL
[2020-02-01 13:35] LABS: Anion Gap 6 (5-15); BUN 110 mg/dL (7-18); BUN/Creat Ratio 28.9 RATIO (10-20); Calcium,Total 8.6 mg/dL (8.5-10.1); Chloride 105 mmol/L (98-107); EST Glomerular Filtration Rate 12 mL/min (>60); Est Glom Filt Rate - Afr Amer 15 mL/min (>60); Estimated Creatinine Clearance 10.43 ml/min; Glucose 453 mg/dL (74-106); Potassium 6.1 mmol/L (3.5-5.1); Sodium Level 133 mmol/L (136-145); T4 Free Direct 0.95 ng/dL (0.76-1.46)
== END ==
LOC: US 10:07 → MEDOUTP 11:14
PROVIDERS: Family Provider Family Medicine; PCP Family Medicine; Referring Provider Internal Medicine Gastroenterology; Visit Provider Internal Medicine Gastroenterology
DX: E87.5 Hyperkalemia (principal); K74.60 Unspecified cirrhosis of liver; E03.9 Hypothyroidism, unspecified; E55.9 Vitamin D deficiency, unspecified; N25.81 Secondary hyperparathyroidism of renal origin
CPT/HCPCS: 96365; 36591; 49083; 80048; 82306; 83970; 84439; 84443; P9047; A4216

== ENCOUNTER 2020-02-01 15:14 | Inpatient (IN) | payer MEDICARE, SELFPAY ==
[2020-02-01] VITALS (10 sets, daily range): BP systolic 89–123; BP diastolic 41–68; PULSE 95–110; RESP 16–19; TEMP 36.4–37.1; O2SAT 97–100; BMI 31.1; BMI 29.2; BMI 29.5
--- NOTE | 2020-02-01 15:36 | EKG12_ITS ---
Test Reason : ABNL LABS Blood Pressure : / mmHG Vent. Rate : 095 BPM Atrial Rate : 095 BPM P-R Int : 150 ms QRS Dur : 082 ms QT Int : 356 ms P-R-T Axes : 041 009 041 degrees QTc Int : 447 ms Normal sinus rhythm Normal ECG Confirmed by GEOFFREY BURROUGHS ([id number]), associate editor LUISA SMITH ([id number]) on 02/05/2020 2:11:30 PM Referred By: CHRISTI Confirmed By:GEOFFREY BURROUGHS
--- NOTE | 2020-02-01 15:50 | ED.VIS.GEN ---
History of Present Illness Chief Complaint: Abn Labs Informant: Patient, PCP Narrative: Patient is a 74-year-old female who presents to the emergency department for abnormal outpatient lab work. He has a history of Forrester cirrhosis, chronic kidney disease who presents to the ED after she was found to have an elevated potassium. This was 6.1 drawn 3 hours ago. She gets weekly paracenteses. She had lab work drawn after the paracentesis as a routine. Patient currently denies any symptoms. She denies any chest pain, shortness of breath, palpitations. She denies any lightheadedness or headache. No abdominal pain or nausea/vomiting. She does have diarrhea. Denies any urinary symptoms. She has not had any fevers or chills. No cough, cold, congestion. Of note patient was also found to have a TSH in the 80s. Her creatinine has been trending upward. Patient's glucose is also 450. Patient states she has been compliant with all of her medications although her PCP who called states he does not think she has been. Past Medical History - Allergies and Home Meds Allergies/Adverse Reactions: Allergies clarithromycin [From Biaxin] Allergy (Verified 02/01/20 15:16) Unknown iodine Allergy (Verified 02/01/20 15:16) Unknown Prior records reviewed: Yes Past Medical History: - - Forrester cirrhosis, CKD, hypothyroidism, TIA, diabetes Surgical History: mastectomy, - - Patient has had a right mastectomy and appendectomy. She is a Ab0. Right IJ Port-A-Cath Smoking Status: Never smoker - Family History Sibling Family History: Family History (Last Reviewed 01/04/20 @ 10:[address] Prem Barnes MD) Father CHF (congestive heart failure) Heart disease Mother CVA (cerebral vascular accident) Family History: Reports: Cancer Review of Systems All systems negative except as indicated General: Denies: Chills, Fever, Sweats Eyes: Denies: Visual changes - bilaterally, Diplopia ENT: Denies: Rhinorrhea, Sore throat Cardiovascular: Denies: Chest pain, Palpitations Respiratory: Denies: Dyspnea, Cough, Dyspnea on exertion Gastrointestinal: Reports: Diarrhea. Denies: Abdominal pain, Nausea, Vomiting, Melena, Hematochezia Genitourinary: Denies: Dysuria, Hematuria, Frequency Musculoskeletal: Denies: Back pain, Extremity Pain Skin: Denies: Rash, Wounds Neurological: Denies: Headache, Weakness, Numbness Physical Exam Vital Signs/Narrative: Vital Signs Temp Pulse Resp BP Pulse Ox 02/01/20 15:16 98.7 F 109 H 19 H 123/53 H 100 Inital Vital Signs reviewed: Yes General: Well nourished, Well developed, No Acute Distress Head: Normocephalic, Atraumatic Eyes: Perrl, EOMI ENT: Moist mucous membranes, No rhinorrhea Neck: Supple, Nontender Cardiovascular: Regular rate, Regular rhythm, Murmur Respiratory: No distress, CTA bilaterally, Chest nontender Abdomen: Soft, Nontender, - - Mild ascites present Back: Nontender, Normal Inspection Extremities: Nontender, No edema Skin: Normal color, No rash Neurological: Alert, Oriented x3, Cranial nerves II-XII grossly intact, Normal Strength, Normal Sensation Psychological: Normal affect, Normal Mood Diagnostic/Tx/Re-eval - EKG Initial EKG Interpretation: - - Rate of 95 bpm and normal sinus rhythm. Normal intervals. Normal axis. No ST elevations or depressions appreciated. No T wave abnormalities or peaked T waves. - Medical Decision Making Patient presents to the emergency department for abnormal outpatient testing. She was found to have a creatinine around 3 with a potassium of 6.1, blood glucose was 453 and a TSH of 83. Upon arrival to the ED EKG being obtained. We will treat the hyperkalemia and plan on admission to the hospital for further evaluation and management. They do need to have a discussion about dialysis. Patient otherwise stable throughout ED stay. She does not have any complaints.Her EKG did not show any hyperkalemic changes. Did discuss this with the hospitalist. They are requesting to start Kayexalate as well. Will bring into the hospital for further evaluation and management. She understands and is agreeable with this plan. ED Disposition - Plan for ED Patient: Disposition: Acute Care Hospital [facility] Diagnosis: Hyperkalemia, Chronic kidney disease, Hypothyroidism, Hyperglycemia, Anemia
[2020-02-01] MEDS: Insulin Lispro 5 UNIT in Syringe 0 ML 3 UNIT IV (16:55)
[2020-02-01] MEDS: 0.9% Normal Saline 1,000 ML 999 ML IV (16:55)
[2020-02-01] MEDS: Dextrose 50%-Water 25 GM/50 ML DISP.SYRIN IV (16:58)
[2020-02-01] MEDS: Calcium Gluconate 1 GM/10 ML Vial IV (17:02)
[2020-02-01] MEDS: Sodium Polystyrene Sulfonate 15 GM/60 ML UDC PO (17:03)
--- NOTE | 2020-02-01 18:04 | HP.PCM_ITS ---
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: Chronic (13) Secondary hyperparathyroidism Status: Chronic (14) Venous insufficiency (chronic) (peripheral) Status: Chronic (15) History of breast cancer Status: Chronic (16) Ascites Status: Chronic (17) CKD (chronic kidney disease) stage 4, GFR 15-29 ml/min Status: Chronic (18) TIA (transient ischemic attack) Status: Chronic (19) DM2 (diabetes mellitus, type 2) Status: Chronic (20) Benign essential HTN Status: Chronic History of Present Illness Date of Admission: 02/01/20 Chief Complaint: Abnormal lab work, hyperkalemia and hyperglycemia today The patient is a 74 year old F with multiple comorbidities including 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 Lab work shows K6.1, drawn as a routine lab work after paracentesis today. Patient has been feeling generalized weak, shortness of breath on exertion and low energy level for 1 to 2 weeks. No fever, cough or shortness of breath or chest pain. No dizziness, near syncope or syncope. No nausea, vomiting. She denies symptoms of confusion, encephalopathy but has thrombocytopenia secondary to cirrhosis. Other abnormal lab work shows sodium 133, BUN 110, creatinine 3.8, glucose 153, TSH 83.9, free T4 0.95, PTH 877. Vitamin D 25 hydroxy 25. Patient does not want hemodialysis but has never been talked in the office or during routine care. [] Past Medical History Past Medical History (Chronic Problems): Chronic Problems (Last Reviewed 01/04/20 @ 10:[address] 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 Prem Barnes MD) Venous insufficiency (chronic) (peripheral) (Chronic) I87.2 History of breast cancer (Chronic) Z85.3 Ascites (Chronic) R18.8 CKD (chronic kidney disease) stage 4, GFR 15-29 ml/min (Chronic) N18.4 TIA (transient ischemic attack) (Chronic) DM2 (diabetes mellitus, type 2) (Chronic) E11.9 Benign essential HTN (Chronic) I10 Hypothyroid E03.9 Hypothyroid E03.9 Allergies clarithromycin [From Biaxin] Allergy (Verified 02/01/20 15:16) Unknown iodine Allergy (Verified 02/01/20 15:16) Unknown Home Medications: Ambulatory Orders Medication Instructions Recorded Furosemide [Lasix] 40 mg PO QODAY 01/22/18 Alendronate Sodium [Fosamax] 70 mg PO FR 11/23/19 Insulin Glargine,Hum.rec.anlog 36 unit SQ BID 11/23/19 [Lantus Solostar] Atenolol [Tenormin (beta geraldine)] 50 mg PO DAILY #0 11/25/19 Cholecalciferol (Vitamin D3) 50,000 unit PO FR 02/01/20 [D3-50] Levothyroxine [Synthroid] 100 mcg PO DAILY@0600 02/01/20 Pantoprazole Sodium [Protonix] 40 mg PO BID 02/01/20 Surgical History: Surgical History (Last Reviewed 01/04/20 @ 10:[address] Prem Barnes MD) History of appendectomy Z90.49 History of cataract extraction Z98.49 History of colonoscopy Z98.890 History of extraction of renal calculus Z98.890, Z87.442 History of right mastectomy Z90.11 history port insertion Surgical History: mastectomy, - - Patient has had a right mastectomy and appendectomy. She is a Ab0. 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 Prem Barnes MD) Father CHF (congestive heart failure) Heart disease Mother CVA (cerebral vascular accident) History Items: Cancer Review of Systems Constitutional: Denies: Chills, Fever, Weight Change HEENT: Denies: Head Aches, Sinus Congestion, Sinus Drainage Cardiovascular: Denies: Chest Pain, Palpitations Respiratory: Denies: Cough, Shortness of breath at rest, Sputum production Gastrointestinal: Denies: Abdominal Pain, Nausea, Vomiting Genitourinary: Denies: Dysuria, Frequency Musculoskeletal: Reports: Joint Pain. Denies: Joint Tenderness Skin: Denies: Rash, Wounds Neurological: Reports: Balance problems. Denies: Focal weakness, Numbness, Tingling Psychiatric: Denies: Anxiety, Depression, Homicidal Ideations, Suicidal Ideations Hematologic/ Lymphatic: Denies: Easy Bruising, Easy Bleeding VTE Information - Inpt Only VTE Present on Admission: No VTE Mechan Device Prophylaxis: SCD's VTE Pharm Prophylaxis ordered?: Yes Patient Problems: Active and Suspected Problems (Last Reviewed 01/04/20 @ 10:[address] Prem Barnes MD) Hyperkalemia (Acute) Hypothyroidism (Acute) Hyperglycemia (Acute) Anemia (Acute) Acute kidney injury on CKD stage IV (Acute) - Physical Exam Vitals/I&O's: Vital Signs Temp Pulse Resp BP Pulse Ox 98.2 F 103 H 18 108/54 L 100 02/01/20 17:47 02/01/20 17:47 02/01/20 17:47 02/01/20 17:47 02/01/20 17:47 Oxygen Delivery Method Room Air Weight: 161 lb 6.4 oz Body Mass Index (BMI) 29.5 Finger Stick Blood Glucose 406 Intake and Output for Last 24 Hours 01/30/20 01/31/20 02/01/20 23:59 23:59 23:59 Intake Total 1000.05 / 1000.05 Balance 1000.05 / 1000.05 General: Alert, Oriented x3, Cooperative HEENT: Atraumatic, PERRLA, EOMI, Normocephalic Neck: Supple, No JVD, Negative Carotid Bruits Lungs: Clear to auscultation, No rhonchi, No rales, Diminished - Air entry diminished in bilateral lower half of lungs. Cardiovascular: Regular rate, Regular Rhythm, Normal S1, Normal S2, No murmurs Abdomen: Bowel Sounds Present, Soft, Non Tender, Hypoactive Bowel Sounds, Distended, - - Mild abdominal distention, ascites present. Extremities: No edema - No significant pedal edema, Capillary Refill Less than 3 Seconds Skin: No rashes, No breakdown Musculoskeletal: No Tenderness to Palpation of Joints or Extremities, Arthritic Changes Neurological: Cranial nerves II-XII grossly intact, Deep Tendon Reflexes 2+/4 and Symmetrical, Neuro grossly intact Psych/Mental Status: Normal Affect, Appropriate Current Medications Sodium Chloride () 500 mls @ 15 mls/hr IV PRN PRN PRN Reason: Blood Transfusion Sodium Chloride () 250 mls @ 15 mls/hr IV .[id number] PRN PRN Reason: Saline Flush Sodium Chloride () 250 mls @ 15 mls/hr IV .[id number] PRN PRN Reason: Additional IVPB Infusion Sodium Chloride () 10 - 40 ml IV UD PRN PRN Reason: SALINE FLUSH Assessment/Plan All Active Problems (Last Reviewed 01/04/20 @ 10:[address] 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 Other abnormal lab work shows sodium 133, BUN 110, creatinine 3.8, glucose 153, PTH 877. Vitamin D 25 hydroxy 25. [] 1. Acute kidney injury on CKD stage IV with hyperkalemia: Patient is admitted in PCU. EKG shows normal sinus rhythm at 95 bpm. Tall T waves only in lead V2. QTC 447 ms. Patient was given hyperkalemia cocktail in ER and Kayexalate. Repeat BMP after 2 hours. Repeat EKG. Nephrology consult. I briefly talked about hemodialysis if needed for hyperkalemia, she does not want hemodialysis either temporary or permanent. Magnesium level ordered. 2. Hyperglycemia with diabetes mellitus type 2: Accu-Chek before meals and at bedtime and cover with Humalog sliding scale. She follows Dr. Barnes, information technology security manager for diabetes mellitus and hypothyroidism 3. Decompensated Forrester related cirrhosis with ascites: Continue Lasix from tomorrow a.m. after initial IV fluid resuscitation for hyperkalemia. 4. Possible secondary hyperparathyroidism from CKD stage IV: PTH 877, vitamin D 25. Again it seems a chronic problem. Vitamin D replacement. Continue Fosamax 5. Hypothyroidism: TSH 83.9, free T4 0.95: Increase patient's levothyroxine to 150 mcg daily. Her home dose is 100 mcg daily. 6. Other chronic comorbidities include chronic venous insufficiency, history of breast cancer, anemia of chronic disease, pancytopenia and hypercalcemia: Last CBC on 01/22/2020 shows H&H 7.5/22, WBC 2.8 thousand and platelet count 75,000. Repeat CBC today. DVT prophylaxis: As patient has pancytopenia with platelet count 75,000 as mentioned above, pharmacological prophylaxis contraindicated. Bilateral SCDs. Inpatient E&M: 61364 Init Hosp L3 Procedures: 05171 Advncd Care Plan 30 Min
[2020-02-01] MEDS: 0.9% Normal Saline 1,000 ML 100 ML IV (18:16)
[2020-02-01 18:25] LABS: Magnesium 2.4 mg/dL (1.6-2.6)
[2020-02-01 18:55] LABS: Absolute Lymphocyte Count 0.17 X10^3/uL (0.83-4.51); Basophil# 0.01 X10^3/uL; Basophil% 0.7 % (0-1); Eosinophil# 0.06 X10^3/uL; Eosinophils% 4.2 % (0-5); Hematocrit 17.5 % (37-47); Lymphocyte # 0.17 X10^3/ul (4.0); Lymphocyte % 11.8 % (19-41); Mean Corp Hgb Conc 32.6 g/dL (32-36); Mean Corpuscular Hgb 32.6 pg (27.0-32.0); Mean Platelet Vol. 10.6 fl (6.2-12.0); Monocyte# 0.16 X10^3/uL; Monocyte% 11.1 % (0-10); NRBC Flagged by Analyzer 0 % (0-5); Neutrophil # 1.03 X10^3/uL (2.7-7.7); Neutrophil % 71.5 % (47-70); POSITIVE COUNT YES; POSITIVE DIFFERENTIAL YES; RBC Distribution Width CV 15.9 % (11.6-14.6); RBC Distribution Width SD 57.3 fl (35.1-43.9); Red Blood Count 1.75 M/mm3 (4.2-5.4)
[2020-02-01 19:05] LABS: White Blood Count 1.4 K/mm3 (4.4-11.0)
[2020-02-01 19:06] LABS: Differential Indicated SCAN CRITERIA MET; Hemoglobin 5.7 g/dL (12.0-15.0); Platelet Count 48 K/mm3 (150-450)
[2020-02-01 19:13] LABS: Anion Gap 7 (5-15); BUN 109 mg/dL (7-18); BUN/Creat Ratio 28.2 RATIO (10-20); Calcium,Total 8.3 mg/dL (8.5-10.1); Chloride 107 mmol/L (98-107); Creatinine, Serum 3.87 mg/dL (0.55-1.02); EST Glomerular Filtration Rate 12 mL/min (>60); Est Glom Filt Rate - Afr Amer 15 mL/min (>60); Estimated Creatinine Clearance 10.24 ml/min; Glucose 453 mg/dL (74-106); Sodium Level 134 mmol/L (136-145)
[2020-02-01 19:39] LABS: Anisocytosis 1+; Differential Comment SEE COMMENTS; Hypochromasia 1+; Macrocytosis RARE; Platelet Estimate MKD DEC (ADEQ)
[2020-02-01] MEDS: 0.9% Saline Lock 10 ML Syringe IV ×2 (20:04→22:42)
--- NOTE | 2020-02-01 20:22 | EKG12_ITS ---
Test Reason : HYPERKALEMIA Blood Pressure : / mmHG Vent. Rate : 095 BPM Atrial Rate : 095 BPM P-R Int : 156 ms QRS Dur : 080 ms QT Int : 378 ms P-R-T Axes : 040 014 029 degrees QTc Int : 475 ms Normal sinus rhythm Normal ECG When compared with ECG of 01-FEB-2020 15:58, MANUAL COMPARISON REQUIRED, DATA IS UNCONFIRMED Confirmed by GEOFFREY BURROUGHS ([id number]), order editor LUISA SMITH ([id number]) on 02/05/2020 2:26:46 PM Referred By: JAD Confirmed By:GEOFFREY BURROUGHS
[2020-02-01] MEDS: Sodium Polystyrene Sulfonate 15 GM/60 ML UDC 30 GM PO (21:29)
[2020-02-01] MEDS: Pantoprazole Sodium 40 MG Tablet PO (21:35)
[2020-02-01 22:00] LABS: Bedside Glucose 451 mg/dL (70-110)
[2020-02-01] MEDS: Insulin Lispro 100 UNIT/ML INSULN.PEN SC (22:44)
[2020-02-01 22:46] LABS: Hemoglobin 5.3 g/dL (12.0-15.0)
[2020-02-01 22:56] LABS: Potassium 4.7 mmol/L (3.5-5.1)
[2020-02-02] VITALS (18 sets, daily range): BP systolic 75–117; BP diastolic 44–60; PULSE 65–105; RESP 12–18; TEMP 36.4–37.1; O2SAT 95–100
[2020-02-02] MEDS: Levothyroxine 150 MCG Tablet PO (05:58)
[2020-02-02] MEDS: 0.9% Saline Lock 10 ML Syringe IV ×2 (06:16→07:05)
[2020-02-02 07:15] LABS: Absolute Lymphocyte Count 0.16 X10^3/uL (0.83-4.51); Absolute Neutrophil Count 1.6 X10^3/uL (2.0-7.7); Basophil# 0.01 X10^3/uL; Basophil% 0.5 % (0-1); Eosinophil# 0.13 X10^3/uL; Eosinophils% 6.3 % (0-5); Hematocrit 23.8 % (37-47); Lymphocyte # 0.16 X10^3/ul (4.0); Lymphocyte % 7.7 % (19-41); Mean Corp Hgb Conc 33.6 g/dL (32-36); Mean Corpuscular Hgb 31.9 pg (27.0-32.0); Mean Corpuscular Volume 94.8 fL (81-99); Monocyte# 0.21 X10^3/uL; Monocyte% 10.1 % (0-10); NRBC Flagged by Analyzer 0 % (0-5); Neutrophil # 1.55 X10^3/uL (2.7-7.7); POSITIVE COUNT YES; POSITIVE DIFFERENTIAL YES; Platelet Count 51 K/mm3 (150-450); RBC Distribution Width CV 15.9 % (11.6-14.6); RBC Distribution Width SD 55.1 fl (35.1-43.9); Red Blood Count 2.51 M/mm3 (4.2-5.4); White Blood Count 2.1 K/mm3 (4.4-11.0)
[2020-02-02 07:16] LABS: Differential Indicated SCAN CRITERIA MET; Neutrophil % 74.9 % (47-70)
[2020-02-02] MEDS: Insulin Lispro 100 UNIT/ML INSULN.PEN SC ×7 (07:19→21:24)
[2020-02-02 07:33] LABS: Differential Comment SCANNED
[2020-02-02 08:00] LABS: ALB/GLOB Ratio 0.9 RATIO (0.9-2.4); AST(SGOT) 35 U/L (15-37); Alanine Aminotransfer ALT/SGPT 36 U/L (13-56); Albumin, Serum 2.3 g/dL (3.2-5.0); Alkaline Phosphatase 131 U/L (45-117); Anion Gap 10 (5-15); BUN 96 mg/dL (7-18); BUN/Creat Ratio 30.6 RATIO (10-20); Calcium,Total 7.9 mg/dL (8.5-10.1); Chloride 108 mmol/L (98-107); Creatinine, Serum 3.14 mg/dL (0.55-1.02); EST Glomerular Filtration Rate 15 mL/min (>60); Est Glom Filt Rate - Afr Amer 19 mL/min (>60); Estimated Creatinine Clearance 12.62 ml/min; Globulin 2.7 g/dL (2.2-4.2); Glucose 190 mg/dL (74-106); Phosphorus 4.6 mg/dL (2.5-4.9); Potassium 3.6 mmol/L (3.5-5.1); Sodium Level 140 mmol/L (136-145)
[2020-02-02 08:16] LABS: Bedside Glucose 186 mg/dL (70-110)
[2020-02-02] MEDS: 0.9% Normal Saline 1,000 ML 100 ML IV (08:36)
[2020-02-02] MEDS: Pantoprazole Sodium 40 MG Tablet PO ×2 (08:55→21:19)
[2020-02-02] MEDS: Atenolol 50 MG Tablet PO (08:56)
[2020-02-02] MEDS: Furosemide 40 MG Tablet PO (08:56)
--- NOTE | 2020-02-02 09:35 | PN_ITS ---
Patient Problems: Active and Suspected Problems (Last Reviewed 01/04/20 @ 10:[address] Prem Barnes MD) Hyperkalemia (Acute) Hypothyroidism (Acute) Hyperglycemia (Acute) Anemia (Acute) Acute kidney injury on CKD stage IV (Acute) Reason for Visit: Hyperkalemia, worsening kidney function and anemia Subjective: Patient is a 74-year-old lady with history of cirrhosis of the liver from nonalcoholic fatty liver disease on q. weekly paracentesis who was sent to the hospital with abnormal lab work with worsening kidney function and potassium of 6.1 as well as anemia with hemoglobin of 5.7 Objective: GENERAL: cooperative HEENT: Atraumatic; EYES; Anicteric, Normal Conjunctiva NECK; supple, normal thyroid, RESPIRATORY: Diminished to auscultation CARDIOVASCULAR: Regular S1 S2, GI: Abdomen slightly distended : No Renal angle tenderness; EXTREMITIES: No edema, no clubbing, MUSCULOSKELETAL: no muscle waisting NEURO: Awake; no lateralizing signs. SKIN: No Rash PSYCH; Flat affect Vitals/I&O's: Vital Signs Temp Pulse Resp BP Pulse Ox 98.2 F 105 H 18 115/55 L 100 02/02/20 08:54 02/02/20 08:54 02/02/20 08:54 02/02/20 08:54 02/02/20 08:54 Oxygen Delivery Method Room Air Weight: 75.6 kg Body Mass Index (BMI) 29.5 Finger Stick Blood Glucose 406 Intake and Output for Last 24 Hours 01/31/20 02/01/20 02/02/20 23:59 23:59 23:59 Intake Total 1523.38 / 1673.38 1298.33 / 1298.33 Output Total 400 / 400 Balance 1523.38 / 1473.38 898.33 / 898.33 Microbiology Past 72 Hours 02/02/20 00:45 Stool Stool Occult Blood (LUZMA) - Final Occult Blood Positive Laboratory Results 02/01/20 16:34: Magnesium 2.4, Troponin I < 0.015 02/01/20 16:34: WBC 1.4 L*, RBC 1.75 L, Hgb 5.7 L*, Hct 17.5 L, MCV 100.0 H, MCH 32.6 H, MCHC 32.6, RDW Std Deviation 57.3 H, RDW Coeff of Mary Alice 15.9 H, Plt Count 48 L*, MPV 10.6, Immature Gran % (Auto) 0.700, Neut % (Auto) 71.5 H, Lymph % (Auto) 11.8 L, Charlton % (Auto) 11.1 H, Eos % (Auto) 4.2, Baso % (Auto) 0.7, Absolute Neuts (auto) 1.0 L, Absolute Lymphs (auto) 0.17 L, Nucleated RBC % 0, Differential Comment SEE COMMENTS, Diff Path Review May foll, Platelet Estimate MKD DEC, Hypochromasia 1+, Anisocytosis 1+, Macrocytosis RARE 02/01/20 16:34: Sodium 134 L, Potassium 6.0 H*, Chloride 107, Carbon Dioxide 20.0 L, Anion Gap 7, BUN 109 H*, Creatinine 3.87 H, Estim Creat Clear Calc 10.24, Est GFR (MDRD) Af Amer 15 L, Est GFR (MDRD) Non-Af 12 L, BUN/Creatinine Ratio 28.2 H, Glucose 453 H*, Calcium 8.3 L 02/01/20 19:55: Troponin I < 0.015 02/01/20 19:55: Blood Type A NEGATIVE, Antibody Screen NEGATIVE, Crossmatch See Detail 02/01/20 21:39: POC Glucose 451 H* 02/01/20 22:30: Troponin I < 0.015 02/01/20 22:30: Potassium 4.7 02/01/20 22:30: Hgb 5.3 L*, Hct 17.0 L 02/02/20 07:00: WBC 2.1 L, RBC 2.51 L, Hgb 8.0 L, Hct 23.8 L, MCV 94.8 D, MCH 31.9, MCHC 33.6, RDW Std Deviation 55.1 H, RDW Coeff of Mary Alice 15.9 H, Plt Count 51 L, MPV 10.0, Immature Gran % (Auto) 0.500, Neut % (Auto) 74.9 H, Lymph % (Auto) 7.7 L, Charlton % (Auto) 10.1 H, Eos % (Auto) 6.3 H, Baso % (Auto) 0.5, Absolute Neuts (auto) 1.6 L, Absolute Lymphs (auto) 0.16 L, Nucleated RBC % 0, Differential Comment SCANNED, Diff Path Review October foll 02/02/20 07:00: Sodium 140, Potassium 3.6, Chloride 108 H, Carbon Dioxide 22.0, Anion Gap 10, BUN 96 H, Creatinine 3.14 H, Estim Creat Clear Calc 12.62, Est GFR (MDRD) Af Amer 19 L, Est GFR (MDRD) Non-Af 15 L, BUN/Creatinine Ratio 30.6 H, Glucose 190 H, Calcium 7.9 L, Phosphorus 4.6, Total Bilirubin 1.10 H, AST 35, ALT 36, Alkaline Phosphatase 131 H, Total Protein 5.0 L, Albumin 2.3 L, Globulin 2.7, Albumin/Globulin Ratio 0.9, TSH 71.70 H 02/02/20 07:12: POC Glucose 186 H Current Medications Acetaminophen (Tylenol) 650 mg PO Q6H PRN PRN PRN Reason: Pain Score 1-10/Temp > 100.7 F Albuterol Sulfate (Ventolin Aerosols) 2.5 mg INHALATION Q2H PRN PRN PRN Reason: SOB/Wheezing Atenolol (Tenormin (Beta Stuart)) 50 mg PO DAILY [facility] Last Admin: 02/02/20 08:56 Dose: 50 mg Documented by: Dextrose (D50w Syringe) 0 gm IV X1 PRN; Protocol PRN Reason: Hypoglycemia Ergocalciferol (Vitamin D) 50,000 unit PO FR [facility] Last Admin: 02/02/20 08:55 Dose: 50,000 unit Documented by: Furosemide (Lasix) 40 mg PO QODAY [facility] Last Admin: 02/02/20 08:56 Dose: 40 mg Documented by: Glucagon () 1 mg IM .X1 PRN PRN Reason: Hypoglycemia Guaifenesin (Robitussin) 20 ml PO Q4H PRN PRN PRN Reason: COUGH Hydralazine HCl (Apresoline Iv) 10 mg IV Q4H PRN PRN PRN Reason: SBP > 160 Sodium Chloride () 500 mls @ 15 mls/hr IV PRN PRN PRN Reason: Blood Transfusion Sodium Chloride () 250 mls @ 15 mls/hr IV .[id number] PRN PRN Reason: Saline Flush Sodium Chloride () 250 mls @ 15 mls/hr IV .[id number] PRN PRN Reason: Additional IVPB Infusion Sodium Chloride () 1,000 mls @ 100 mls/hr IV .Q10H [facility] Last Admin: 02/02/20 08:36 Dose: 100 mls/hr Documented by: Insulin Glargine (Lantus (Bkc)) 36 units SC BID [facility] Last Admin: 02/02/20 08:54 Dose: 36 units Documented by: Insulin Human Lispro (Humalog Kwikpen (Bkc)) 5 unit SC TIDAC [facility] Last Admin: 02/02/20 07:19 Dose: 5 units Documented by: Insulin Human Lispro (Humalog Kwikpen (Bkc)) 0 unit SC ACHS [facility]; Protocol Last Admin: 02/02/20 07:19 Dose: 3 u Documented by: Levothyroxine Sodium (Synthroid) 150 mcg PO DAILY@0600 [facility] Last Admin: 02/02/20 05:58 Dose: 150 mcg Documented by: Morphine Sulfate () 2 mg IV Q3H PRN PRN PRN Reason: Pain Score 6-10/10 Nitroglycerin (Nitrostat) 0.4 mg SUBLINGUAL Q5M PRN PRN Reason: CARDIAC/CHEST PAIN Oxycodone HCl (Oxyir) 5 mg PO Q4H PRN PRN PRN Reason: Pain Score 4-5/10 Pantoprazole Sodium (Protonix) 40 mg PO BID [facility] Last Admin: 02/02/20 08:55 Dose: 40 mg Documented by: Prochlorperazine Edisylate (Compazine Iv) 5 mg IV Q4H PRN PRN PRN Reason: Breakthrough Nausea/Vomiting Senna/Docusate Sodium (Senokot-S, [place]-Colace) 2 tablet PO BID PRN PRN PRN Reason: Constipation Sodium Chloride () 10 - 40 ml IV UD PRN PRN Reason: SALINE FLUSH Last Admin: 02/02/20 07:05 Dose: 40 ml Documented by: Throat Lozenges (Cepacol Sore Throat Lozenge) 1 lozenge MUCOUS MEM Q2H PRN PRN PRN Reason: SORE THROAT STROKE Vital Signs/Narrative: Vital Signs Temp Pulse Resp BP Pulse Ox 02/02/20 08:54 98.2 F 105 H 18 115/55 L 100 02/02/20 06:45 93 02/02/20 06:11 97.8 F 99 16 95/51 L 99 Medical Necessity - Tobacco Use Smoking Status: Never smoker Assessment/Plan All Active Problems (Last Reviewed 01/04/20 @ 10:[address] Prem Barnes MD) Hyperkalemia (Acute) Hypothyroidism (Acute) Hyperglycemia (Acute) Anemia (Acute) Acute kidney injury on CKD stage IV (Acute) Patient is a 74-year-old lady with history of cirrhosis of the liver from nonalcoholic fatty liver disease on q. weekly paracentesis who was sent to the hospital with abnormal lab work with worsening kidney function and potassium of 6.1 as well as anemia with hemoglobin of 5.7 1. Acute kidney injury ?Superimposed on chronic kidney disease stage IV managed with IV fluids kidney function back to baseline IV fluids subsequently discontinued 2. Hyperkalemia secondary to worsening kidney function. Patient did receive Kayexalate potassium back to within normal limits 3. Pancytopenia ?Patient presented with leukopenia anemia as well as thrombocytopenia. Patient was transfused with 2 unit PRBC hemoglobin posttransfusion 8.0 we will continue with daily monitoring of CBC 4. Nonalcoholic fatty liver disease with cirrhosis of the liver ?Patient undergoes q. weekly paracentesis (last performed on 02/01/2020) 5. Hypothyroidism - Patient is on levothyroxine home dose continued 6. Diabetes mellitus type II - Placed on long acting insulin, Accu-Cheks a.c. and at bedtime and covered with sliding scale insulin 7. Osteoporosis ?Patient on Fosamax 8. History of breast cancer ?Currently in remission 9. Hypertension - Blood pressure controlled, home medications continued with dose adjustment as needed 10. Chronic kidney disease ?Kidney function back to baseline 11. DVT prophylaxis ?Chemoprophylaxis contraindicated in view of patient low platelet count Active Medications Acetaminophen (Tylenol) 650 mg PO Q6H PRN PRN PRN Reason: Pain Score 1-10/Temp > 100.7 F Albuterol Sulfate (Ventolin Aerosols) 2.5 mg INHALATION Q2H PRN PRN PRN Reason: SOB/Wheezing Atenolol (Tenormin (Beta Stuart)) 50 mg PO DAILY [facility] Last Admin: 02/02/20 08:56 Dose: 50 mg Documented by: Dextrose (D50w Syringe) 0 gm IV X1 PRN; Protocol PRN Reason: Hypoglycemia Ergocalciferol (Vitamin D) 50,000 unit PO FR [facility] Last Admin: 02/02/20 08:55 Dose: 50,000 unit Documented by: Furosemide (Lasix) 40 mg PO QODAY [facility] Last Admin: 02/02/20 08:56 Dose: 40 mg Documented by: Glucagon () 1 mg IM .X1 PRN PRN Reason: Hypoglycemia Guaifenesin (Robitussin) 20 ml PO Q4H PRN PRN PRN Reason: COUGH Hydralazine HCl (Apresoline Iv) 10 mg IV Q4H PRN PRN PRN Reason: SBP > 160 Sodium Chloride () 500 mls @ 15 mls/hr IV PRN PRN PRN Reason: Blood Transfusion Sodium Chloride () 250 mls @ 15 mls/hr IV .[id number] PRN PRN Reason: Saline Flush Sodium Chloride () 250 mls @ 15 mls/hr IV .[id number] PRN PRN Reason: Additional IVPB Infusion Sodium Chloride () 1,000 mls @ 100 mls/hr IV .Q10H [facility] Last Admin: 02/02/20 08:36 Dose: 100 mls/hr Documented by: Insulin Glargine (Lantus (Bkc)) 36 units SC BID [facility] Last Admin: 02/02/20 08:54 Dose: 36 units Documented by: Insulin Human Lispro (Humalog Kwikpen (Bkc)) 5 unit SC TIDAC [facility] Last Admin: 02/02/20 07:19 Dose: 5 units Documented by: Insulin Human Lispro (Humalog Kwikpen (Bkc)) 0 unit SC ACHS [facility]; Protocol Last Admin: 02/02/20 07:19 Dose: 3 u Documented by: Levothyroxine Sodium (Synthroid) 150 mcg PO DAILY@0600 [facility] Last Admin: 02/02/20 05:58 Dose: 150 mcg Documented by: Morphine Sulfate () 2 mg IV Q3H PRN PRN PRN Reason: Pain Score 6-10/10 Nitroglycerin (Nitrostat) 0.4 mg SUBLINGUAL Q5M PRN PRN Reason: CARDIAC/CHEST PAIN Oxycodone HCl (Oxyir) 5 mg PO Q4H PRN PRN PRN Reason: Pain Score 4-5/10 Pantoprazole Sodium (Protonix) 40 mg PO BID [facility] Last Admin: 02/02/20 08:55 Dose: 40 mg Documented by: Prochlorperazine Edisylate (Compazine Iv) 5 mg IV Q4H PRN PRN PRN Reason: Breakthrough Nausea/Vomiting Senna/Docusate Sodium (Senokot-S, [place]-Colace) 2 tablet PO BID PRN PRN PRN Reason: Constipation Sodium Chloride () 10 - 40 ml IV UD PRN PRN Reason: SALINE FLUSH Last Admin: 02/02/20 07:05 Dose: 40 ml Documented by: Throat Lozenges (Cepacol Sore Throat Lozenge) 1 lozenge MUCOUS MEM Q2H PRN PRN PRN Reason: SORE THROAT Inpatient E&M: 41044 Subs Hosp L3
[2020-02-02 11:21] LABS: Bedside Glucose 345 mg/dL (70-110)
--- NOTE | 2020-02-02 11:34 | CASEMGMT ---
EVAN ANDERSON assessment: Face to Face with patient for initial transition planning/care coordination assessment. EVAN ANDERSON introduced self and role at [facility], pt voices understanding and consents to assessment at this time. Pt is sitting up in chair in no distress at this time. Pt is A/Ox4 at this time and answers all questions appropriately at this time. Care providers, pharmacy, and demographics verified at this time. Presentation: Elev glucose, K+, sent by PCP Admitting dx: Hyperkalemia, COURTNEY on CKD PCP: Phu Specialists: gloria Price; , endocrinology Preferred Pharmacy: [facility] Insurance: [employer] Prescription Benefit: [facility] Living Will/HPOA: Pt has LW/HPOA and is aware that they are on file at [facility] at this time. Pt's nephew, Miko Castro, is HPOA. LNOK: Miko Castro, nephew/HPOA; Shanthi Ma, niece Living Arrangements: Pt states lives alone in 1 story condo with 1 step in thru garage and states no concerns at home at this time. Pt states is independent with ADL's. Transportation: Pt states drives self and states no transportation concerns at this time. DME/HHC: Pt states has the following DME: walker, grab bars, and shower chair. Pt states no need for any further DME. Pt states has had HHC in the past and has been to [facility] in [place]. Pt does get weekly paracentesis for her GUEVARA cirrhosis. Pt states no concerns with going home at time of discharge. Pt states is retired. Pt states does not smoke cigarettes or drink ETOH. Pt states no further concerns/needs at this time. CM to follow for any further discharge planning/needs. Advised pt to ask for CM if any further questions/concerns/needs arise, voices understanding. Pt Goal: Home Plan: [place] EVAN ANDERSON
[2020-02-02 12:19] LABS: Pathologist Review Reviewed
[2020-02-02 12:19] LABS: Pathologist Review Reviewed
--- NOTE | 2020-02-02 14:54 | PCM.CONS.R ---
Consultation - Renal 02/02/20 PCP/ Referring MD: Requesting physician: [] Primary care physician: Dr. Nicola Bay MD Reason for Consultation:: courtney hrs 2 - History of Present Illness History of Present Illness: The patient is a 74 year old F esld , hrs-2 bSCR 1.2 -2 with paracentesis every week and Lasix every other day was sent to ER by PCP for hyperkalemia and COURTNEY creatinine peaked to 3 and edema. Patient has been feeling generalized weak, shortness of breath on exertion and low energy level for 1 to 2 weeks. No fever, cough or shortness of breath or chest pain. Other abnormal lab work shows sodium 133, BUN 110, creatinine 3.8, glucose 153, TSH 83.9, free T4 0.95, PTH 877. Vitamin D 25 hydroxy 25. Patient does not want hemodialysis but has never been talked in the office or during routine care. - Allergies Allergies: Allergies clarithromycin [From Biaxin] Allergy (Verified 02/01/20 15:16) Unknown iodine Allergy (Verified 02/01/20 15:16) Unknown - Current Medications Current Medications: Current Medications Acetaminophen (Tylenol) 650 mg PO Q6H PRN PRN PRN Reason: Pain Score 1-10/Temp > 100.7 F Albuterol Sulfate (Ventolin Aerosols) 2.5 mg INHALATION Q2H PRN PRN PRN Reason: SOB/Wheezing Atenolol (Tenormin (Beta Stuart)) 50 mg PO DAILY [facility] Last Admin: 02/02/20 08:56 Dose: 50 mg Documented by: Dextrose (D50w Syringe) 0 gm IV X1 PRN; Protocol PRN Reason: Hypoglycemia Ergocalciferol (Vitamin D) 50,000 unit PO FR [facility] Last Admin: 02/02/20 08:55 Dose: 50,000 unit Documented by: Furosemide (Lasix) 40 mg PO QODAY [facility] Last Admin: 02/02/20 08:56 Dose: 40 mg Documented by: Glucagon () 1 mg IM .X1 PRN PRN Reason: Hypoglycemia Guaifenesin (Robitussin) 20 ml PO Q4H PRN PRN PRN Reason: COUGH Hydralazine HCl (Apresoline Iv) 10 mg IV Q4H PRN PRN PRN Reason: SBP > 160 Sodium Chloride () 500 mls @ 15 mls/hr IV PRN PRN PRN Reason: Blood Transfusion Sodium Chloride () 250 mls @ 15 mls/hr IV .[id number] PRN PRN Reason: Saline Flush Sodium Chloride () 250 mls @ 15 mls/hr IV .[id number] PRN PRN Reason: Additional IVPB Infusion Insulin Glargine (Lantus (Bkc)) 36 units SC BID [facility] Last Admin: 02/02/20 08:54 Dose: 36 units Documented by: Insulin Human Lispro (Humalog Kwikpen (Bkc)) 5 unit SC TIDAC [facility] Last Admin: 02/02/20 11:15 Dose: 5 units Documented by: Insulin Human Lispro (Humalog Kwikpen (Bkc)) 0 unit SC ACHS [facility]; Protocol Last Admin: 02/02/20 11:16 Dose: 12 u Documented by: Levothyroxine Sodium (Synthroid) 150 mcg PO DAILY@0600 [facility] Last Admin: 02/02/20 05:58 Dose: 150 mcg Documented by: Morphine Sulfate () 2 mg IV Q3H PRN PRN PRN Reason: Pain Score 6-10/10 Nitroglycerin (Nitrostat) 0.4 mg SUBLINGUAL Q5M PRN PRN Reason: CARDIAC/CHEST PAIN Oxycodone HCl (Oxyir) 5 mg PO Q4H PRN PRN PRN Reason: Pain Score 4-5/10 Pantoprazole Sodium (Protonix) 40 mg PO BID [facility] Last Admin: 02/02/20 08:55 Dose: 40 mg Documented by: Prochlorperazine Edisylate (Compazine Iv) 5 mg IV Q4H PRN PRN PRN Reason: Breakthrough Nausea/Vomiting Senna/Docusate Sodium (Senokot-S, [place]-Colace) 2 tablet PO BID PRN PRN PRN Reason: Constipation Sodium Chloride () 10 - 40 ml IV UD PRN PRN Reason: SALINE FLUSH Last Admin: 02/02/20 07:05 Dose: 40 ml Documented by: Throat Lozenges (Cepacol Sore Throat Lozenge) 1 lozenge MUCOUS MEM Q2H PRN PRN PRN Reason: SORE THROAT - Past Medical History Past Medical History (Chronic Problems): Chronic Problems (Last Reviewed 01/04/20 @ 10:[address] 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 She is a Ab0. Right IJ Port-A-Cath - Social History Smoking Status: Never smoker - Family History Sibling Family History: Family History (Last Reviewed 01/04/20 @ 10:[address] Prem Barnes MD) Father CHF (congestive heart failure) Heart disease Mother CVA (cerebral vascular accident) History Items: Cancer Review of Systems Constitutional: Reports: Anorexia, Fever HEENT: Reports: Dysphasia Cardiovascular: Reports: Chest Pain, Chest Pressure, Chest Tightness, Heaviness Respiratory: Reports: Shortness of Breath Gastrointestinal: Reports: Abdominal Pain, Constipation, Diarrhea, Dyspepsia Musculoskeletal: Reports: Arm Pain Skin: Reports: Jaundice Neurological: Denies: Numbness, Tingling, Focal weakness Patient Problems: Active and Suspected Problems (Last Reviewed 01/04/20 @ 10:[address] Prem Barnes MD) Hyperkalemia (Acute) Hypothyroidism (Acute) Hyperglycemia (Acute) Anemia (Acute) Acute kidney injury on CKD stage IV (Acute) - Physical Exam Vitals/I&O's: Vital Signs Temp Pulse Resp BP Pulse Ox 98.2 F 105 H 18 115/55 L 100 02/02/20 08:54 02/02/20 08:54 02/02/20 08:54 02/02/20 08:54 02/02/20 08:54 Oxygen Delivery Method Room Air Weight: 75.6 kg Body Mass Index (BMI) 29.5 Finger Stick Blood Glucose 406 Intake and Output for Last 24 Hours 01/31/20 02/01/20 02/02/20 23:59 23:59 23:59 Intake Total 1523.38 / 1673.38 2028.33 / 2027.33 Output Total 400 / 400 Balance 1523.38 / 1473.38 1628.33 / 1628.33 HEENT: Atraumatic, PERRLA, EOMI, Normocephalic Neck: JVD, Bilateral Lungs: Rhonchi, Short of Breath Cardiovascular: Regular rate Abdomen: Bowel Sounds Present, Distended Extremities: No clubbing Skin: No rashes Musculoskeletal: No Tenderness to Palpation of Joints or Extremities Lymphatic: No Cervical, Supraclavicular, or Inguinal Adenopathy Microbiology Past 72 Hours 02/02/20 00:45 Stool Stool Occult Blood (LUZMA) - Final Occult Blood Positive Laboratory Results 02/01/20 16:34: Magnesium 2.4, Troponin I < 0.015 02/01/20 16:34: WBC 1.4 L*, RBC 1.75 L, Hgb 5.7 L*, Hct 17.5 L, MCV 100.0 H, MCH 32.6 H, MCHC 32.6, RDW Std Deviation 57.3 H, RDW Coeff of Mary Alice 15.9 H, Plt Count 48 L*, MPV 10.6, Immature Gran % (Auto) 0.700, Neut % (Auto) 71.5 H, Lymph % (Auto) 11.8 L, Hitchcock % (Auto) 11.1 H, Eos % (Auto) 4.2, Baso % (Auto) 0.7, Absolute Neuts (auto) 1.0 L, Absolute Lymphs (auto) 0.17 L, Nucleated RBC % 0, Differential Comment SEE COMMENTS, Diff Path Review Reviewed, Platelet Estimate MKD DEC, Hypochromasia 1+, Anisocytosis 1+, Macrocytosis RARE 02/01/20 16:34: Sodium 134 L, Potassium 6.0 H*, Chloride 107, Carbon Dioxide 20.0 L, Anion Gap 7, BUN 109 H*, Creatinine 3.87 H, Estim Creat Clear Calc 10.24, Est GFR (MDRD) Af Amer 15 L, Est GFR (MDRD) Non-Af 12 L, BUN/Creatinine Ratio 28.2 H, Glucose 453 H*, Calcium 8.3 L 02/01/20 19:55: Troponin I < 0.015 02/01/20 19:55: Blood Type A NEGATIVE, Antibody Screen NEGATIVE, Crossmatch See Detail 02/01/20 21:39: POC Glucose 451 H* 02/01/20 22:30: Troponin I < 0.015 02/01/20 22:30: Potassium 4.7 02/01/20 22:30: Hgb 5.3 L*, Hct 17.0 L 02/02/20 07:00: WBC 2.1 L, RBC 2.51 L, Hgb 8.0 L, Hct 23.8 L, MCV 94.8 D, MCH 31.9, MCHC 33.6, RDW Std Deviation 55.1 H, RDW Coeff of Mary Alice 15.9 H, Plt Count 51 L, MPV 10.0, Immature Gran % (Auto) 0.500, Neut % (Auto) 74.9 H, Lymph % (Auto) 7.7 L, Hitchcock % (Auto) 10.1 H, Eos % (Auto) 6.3 H, Baso % (Auto) 0.5, Absolute Neuts (auto) 1.6 L, Absolute Lymphs (auto) 0.16 L, Nucleated RBC % 0, Differential Comment SCANNED, Diff Path Review Reviewed 02/02/20 07:00: Sodium 140, Potassium 3.6, Chloride 108 H, Carbon Dioxide 22.0, Anion Gap 10, BUN 96 H, Creatinine 3.14 H, Estim Creat Clear Calc 12.62, Est GFR (MDRD) Af Amer 19 L, Est GFR (MDRD) Non-Af 15 L, BUN/Creatinine Ratio 30.6 H, Glucose 190 H, Calcium 7.9 L, Phosphorus 4.6, Total Bilirubin 1.10 H, AST 35, ALT 36, Alkaline Phosphatase 131 H, Total Protein 5.0 L, Albumin 2.3 L, Globulin 2.7, Albumin/Globulin Ratio 0.9, TSH 71.70 H 02/02/20 07:12: POC Glucose 186 H 02/02/20 11:13: POC Glucose 345 H Current Medications Acetaminophen (Tylenol) 650 mg PO Q6H PRN PRN PRN Reason: Pain Score 1-10/Temp > 100.7 F Albuterol Sulfate (Ventolin Aerosols) 2.5 mg INHALATION Q2H PRN PRN PRN Reason: SOB/Wheezing Atenolol (Tenormin (Beta Stuart)) 50 mg PO DAILY [facility] Last Admin: 02/02/20 08:56 Dose: 50 mg Documented by: Dextrose (D50w Syringe) 0 gm IV X1 PRN; Protocol PRN Reason: Hypoglycemia Ergocalciferol (Vitamin D) 50,000 unit PO FR [facility] Last Admin: 02/02/20 08:55 Dose: 50,000 unit Documented by: Furosemide (Lasix) 40 mg PO QODAY [facility] Last Admin: 02/02/20 08:56 Dose: 40 mg Documented by: Glucagon () 1 mg IM .X1 PRN PRN Reason: Hypoglycemia Guaifenesin (Robitussin) 20 ml PO Q4H PRN PRN PRN Reason: COUGH Hydralazine HCl (Apresoline Iv) 10 mg IV Q4H PRN PRN PRN Reason: SBP > 160 Sodium Chloride () 500 mls @ 15 mls/hr IV PRN PRN PRN Reason: Blood Transfusion Sodium Chloride () 250 mls @ 15 mls/hr IV .[id number] PRN PRN Reason: Saline Flush Sodium Chloride () 250 mls @ 15 mls/hr IV .[id number] PRN PRN Reason: Additional IVPB Infusion Insulin Glargine (Lantus (Bkc)) 36 units SC BID [facility] Last Admin: 02/02/20 08:54 Dose: 36 units Documented by: Insulin Human Lispro (Humalog Kwikpen (Bkc)) 5 unit SC TIDAC [facility] Last Admin: 02/02/20 11:15 Dose: 5 units Documented by: Insulin Human Lispro (Humalog Kwikpen (Bkc)) 0 unit SC ACHS [facility]; Protocol Last Admin: 02/02/20 11:16 Dose: 12 u Documented by: Levothyroxine Sodium (Synthroid) 150 mcg PO DAILY@0600 [facility] Last Admin: 02/02/20 05:58 Dose: 150 mcg Documented by: Morphine Sulfate () 2 mg IV Q3H PRN PRN PRN Reason: Pain Score 6-10/10 Nitroglycerin (Nitrostat) 0.4 mg SUBLINGUAL Q5M PRN PRN Reason: CARDIAC/CHEST PAIN Oxycodone HCl (Oxyir) 5 mg PO Q4H PRN PRN PRN Reason: Pain Score 4-5/10 Pantoprazole Sodium (Protonix) 40 mg PO BID [facility] Last Admin: 02/02/20 08:55 Dose: 40 mg Documented by: Prochlorperazine Edisylate (Compazine Iv) 5 mg IV Q4H PRN PRN PRN Reason: Breakthrough Nausea/Vomiting Senna/Docusate Sodium (Senokot-S, [place]-Colace) 2 tablet PO BID PRN PRN PRN Reason: Constipation Sodium Chloride () 10 - 40 ml IV UD PRN PRN Reason: SALINE FLUSH Last Admin: 02/02/20 07:05 Dose: 40 ml Documented by: Throat Lozenges (Cepacol Sore Throat Lozenge) 1 lozenge MUCOUS MEM Q2H PRN PRN PRN Reason: SORE THROAT Assessment/Plan All Active Problems (Last Reviewed 01/04/20 @ 10:[address] Prem Barnes MD) Hyperkalemia (Acute) Hypothyroidism (Acute) Hyperglycemia (Acute) Anemia (Acute) Acute kidney injury on CKD stage IV (Acute) COURTNEY ATN with HRS-2 with hyperkalemia Patient does not want hemodialysis but has never been talked in the office or during routine care. -start midodrine 5 mg TID -Bumex drip 1 mg/hr _albumin Q8 hrs 25 gm _ s/p kayexlate repeat if K >5 -renal diet
[2020-02-02 16:41] LABS: Bedside Glucose 218 mg/dL (70-110)
[2020-02-02 22:35] LABS: Bedside Glucose 200 mg/dL (70-110)
[2020-02-03] VITALS (14 sets, daily range): BP systolic 78–96; BP diastolic 35–51; PULSE 54–69; RESP 16–18; TEMP 36.4–36.6; O2SAT 97–100
[2020-02-03] MEDS: Albumin Human 25% (100 mL) 25 GM/100 ML BAG IV ×4 (00:40→23:31)
[2020-02-03] MEDS: Midodrine HCl 5 MG Tablet PO ×4 (00:57→21:42)
[2020-02-03 06:17] LABS: Absolute Lymphocyte Count 0.33 X10^3/uL (0.83-4.51); Absolute Neutrophil Count 1.3 X10^3/uL (2.0-7.7); Basophil# 0.02 X10^3/uL; Eosinophil# 0.17 X10^3/uL; Eosinophils% 8.5 % (0-5); Hematocrit 22.1 % (37-47); Hemoglobin 7.3 g/dL (12.0-15.0); Lymphocyte # 0.33 X10^3/ul (4.0); Lymphocyte % 16.6 % (19-41); Mean Corpuscular Hgb 31.3 pg (27.0-32.0); Mean Corpuscular Volume 94.8 fL (81-99); Mean Platelet Vol. 10.3 fl (6.2-12.0); Monocyte% 10.1 % (0-10); NRBC Flagged by Analyzer 0 % (0-5); Neutrophil # 1.27 X10^3/uL (2.7-7.7); Neutrophil % 63.8 % (47-70); POSITIVE COUNT YES; POSITIVE DIFFERENTIAL YES; Platelet Count 52 K/mm3 (150-450); RBC Distribution Width CV 16.8 % (11.6-14.6); RBC Distribution Width SD 56.4 fl (35.1-43.9); Red Blood Count 2.33 M/mm3 (4.2-5.4)
[2020-02-03 06:20] LABS: Differential Indicated SCAN CRITERIA MET
[2020-02-03] MEDS: Levothyroxine 150 MCG Tablet PO (06:23)
[2020-02-03 06:31] LABS: AST(SGOT) 25 U/L (15-37); Alanine Aminotransfer ALT/SGPT 31 U/L (13-56); Albumin, Serum 2.5 g/dL (3.2-5.0); Alkaline Phosphatase 107 U/L (45-117); Anion Gap 9 (5-15); BUN 100 mg/dL (7-18); BUN/Creat Ratio 30.2 RATIO (10-20); Chloride 106 mmol/L (98-107); Creatinine, Serum 3.31 mg/dL (0.55-1.02); EST Glomerular Filtration Rate 15 mL/min (>60); Est Glom Filt Rate - Afr Amer 18 mL/min (>60); Estimated Creatinine Clearance 11.97 ml/min; Globulin 2.4 g/dL (2.2-4.2); Glucose 135 mg/dL (74-106); Potassium 3.5 mmol/L (3.5-5.1); Protein, Total 4.9 g/dL (6.4-8.2); Sodium Level 138 mmol/L (136-145)
[2020-02-03 06:36] LABS: Anisocytosis 1+; Platelet Estimate MOD DEC (ADEQ)
[2020-02-03 06:37] LABS: Hypochromasia RARE; Macrocytosis RARE
[2020-02-03] MEDS: 0.9% Saline Lock 10 ML Syringe IV ×4 (07:32→23:32)
[2020-02-03] MEDS: Insulin Lispro 100 UNIT/ML INSULN.PEN SC ×5 (08:44→16:11)
[2020-02-03 08:51] LABS: Bedside Glucose 131 mg/dL (70-110)
[2020-02-03] MEDS: Pantoprazole Sodium 40 MG Tablet PO ×2 (09:05→21:42)
[2020-02-03] MEDS: Atenolol 50 MG Tablet PO (09:05)
--- NOTE | 2020-02-03 11:44 | PCM.PROGNOTE ---
<Brianda Soriano - Last Filed: 02/03/20 12:06> Patient Problems: Active and Suspected Problems (Last Reviewed 01/04/20 @ 10:[address] Prem Barnes MD) Hyperkalemia (Acute) Hypothyroidism (Acute) Hyperglycemia (Acute) Anemia (Acute) Acute kidney injury on CKD stage IV (Acute) Subjective: Patient seen and examined. Patient states she feels improved however states she feels hesitant to return home as she does not want to have to come back to the hospital. Denies of blood in stool or black stools. Denies other current complaints. - Physical Exam Vitals/I&O's: Vital Signs Temp Pulse Resp BP Pulse Ox 97.9 F 60 16 96/36 L 97 02/03/20 07:00 02/03/20 11:00 02/03/20 07:00 02/03/20 07:00 02/03/20 07:08 Oxygen Delivery Method Room Air Weight: 169 lb 5.04 oz Body Mass Index (BMI) 29.5 Finger Stick Blood Glucose 406 Intake and Output for Last 24 Hours 02/01/20 02/02/20 02/03/20 23:59 23:59 23:59 Intake Total 1523.38 / 1673.38 2668.33 / 2668.33 515 / 515 Output Total 400 / 400 100 / 100 Balance 1523.38 / 1473.38 2268.33 / 2268.33 415 / 415 General: Alert, Oriented x3, Cooperative HEENT: Atraumatic, PERRLA, EOMI, Normocephalic Neck: Supple, No JVD, Negative Carotid Bruits Lungs: Clear to auscultation, Normal air movement Cardiovascular: Regular rate, Regular Rhythm, Normal S1, Normal S2, No murmurs Abdomen: Bowel Sounds Present, Soft, Non Tender, Non-Distended Extremities: No clubbing, No cyanosis, No edema, Capillary Refill Less than 3 Seconds Skin: No rashes, No breakdown Musculoskeletal: No Tenderness to Palpation of Joints or Extremities Neurological: Cranial nerves II-XII grossly intact, Neuro grossly intact Psych/Mental Status: Normal Affect, Appropriate Microbiology Past 72 Hours 02/02/20 00:45 Stool Stool Occult Blood (LUZMA) - Final Occult Blood Positive Laboratory Results 02/01/20 16:34: Diff Path Review Reviewed 02/02/20 07:00: Diff Path Review Reviewed 02/02/20 16:31: POC Glucose 218 H 02/02/20 21:21: POC Glucose 200 H 02/03/20 06:07: WBC 2.0 L, RBC 2.33 L, Hgb 7.3 L, Hct 22.1 L, MCV 94.8, MCH 31.3, MCHC 33.0, RDW Std Deviation 56.4 H, RDW Coeff of Mary Alice 16.8 H, Plt Count 52 L, MPV 10.3, Immature Gran % (Auto) 0.000, Neut % (Auto) 63.8, Lymph % (Auto) 16.6 L, Barnes % (Auto) 10.1 H, Eos % (Auto) 8.5 H, Baso % (Auto) 1.0, Absolute Neuts (auto) 1.3 L, Absolute Lymphs (auto) 0.33 L, Nucleated RBC % 0, Diff Path Review May foll, Platelet Estimate MOD DEC, Hypochromasia RARE, Anisocytosis 1+, Macrocytosis RARE 02/03/20 06:07: Sodium 138, Potassium 3.5, Chloride 106, Carbon Dioxide 23.0, Anion Gap 9, BUN 100 H, Creatinine 3.31 H, Estim Creat Clear Calc 11.97, Est GFR (MDRD) Af Amer 18 L, Est GFR (MDRD) Non-Af 15 L, BUN/Creatinine Ratio 30.2 H, Glucose 135 H, Calcium 8.0 L, Total Bilirubin 0.80, AST 25, ALT 31, Alkaline Phosphatase 107, Total Protein 4.9 L, Albumin 2.5 L, Globulin 2.4, Albumin/Globulin Ratio 1.0 02/03/20 08:38: POC Glucose 131 H Current Medications Acetaminophen (Tylenol) 650 mg PO Q6H PRN PRN PRN Reason: Pain Score 1-10/Temp > 100.7 F Albuterol Sulfate (Ventolin Aerosols) 2.5 mg INHALATION Q2H PRN PRN PRN Reason: SOB/Wheezing Atenolol (Tenormin (Beta Stuart)) 50 mg PO DAILY [facility] Last Admin: 02/03/20 09:05 Dose: 50 mg Documented by: Dextrose (D50w Syringe) 0 gm IV X1 PRN; Protocol PRN Reason: Hypoglycemia Ergocalciferol (Vitamin D) 50,000 unit PO FR [facility] Last Admin: 02/02/20 08:55 Dose: 50,000 unit Documented by: Furosemide (Lasix) 40 mg PO QODAY [facility] Last Admin: 02/02/20 08:56 Dose: 40 mg Documented by: Glucagon () 1 mg IM .X1 PRN PRN Reason: Hypoglycemia Guaifenesin (Robitussin) 20 ml PO Q4H PRN PRN PRN Reason: COUGH Hydralazine HCl (Apresoline Iv) 10 mg IV Q4H PRN PRN PRN Reason: SBP > 160 Sodium Chloride () 500 mls @ 15 mls/hr IV PRN PRN PRN Reason: Blood Transfusion Sodium Chloride () 250 mls @ 15 mls/hr IV .[id number] PRN PRN Reason: Saline Flush Sodium Chloride () 250 mls @ 15 mls/hr IV .[id number] PRN PRN Reason: Additional IVPB Infusion Albumin Human () 25 gm in 100 mls @ 60 mls/hr IV Q8H [facility] Last Infusion: 02/03/20 10:30 Dose: Infused Documented by: Insulin Glargine (Lantus (Bkc)) 36 units SC BID [facility] Last Admin: 02/03/20 09:06 Dose: 36 units Documented by: Insulin Human Lispro (Humalog Kwikpen (Bkc)) 5 unit SC TIDAC [facility] Last Admin: 02/03/20 11:28 Dose: 5 units Documented by: Insulin Human Lispro (Humalog Kwikpen (Bkc)) 0 unit SC ACHS [facility]; Protocol Last Admin: 02/03/20 11:29 Dose: 6 u Documented by: Levothyroxine Sodium (Synthroid) 150 mcg PO DAILY@0600 [facility] Last Admin: 02/03/20 06:23 Dose: 150 mcg Documented by: Midodrine (Proamatine) 5 mg PO TID [facility] Last Admin: 02/03/20 06:23 Dose: 5 mg Documented by: Morphine Sulfate () 2 mg IV Q3H PRN PRN PRN Reason: Pain Score 6-10/10 Nitroglycerin (Nitrostat) 0.4 mg SUBLINGUAL Q5M PRN PRN Reason: CARDIAC/CHEST PAIN Oxycodone HCl (Oxyir) 5 mg PO Q4H PRN PRN PRN Reason: Pain Score 4-5/10 Pantoprazole Sodium (Protonix) 40 mg PO BID [facility] Last Admin: 02/03/20 09:05 Dose: 40 mg Documented by: Prochlorperazine Edisylate (Compazine Iv) 5 mg IV Q4H PRN PRN PRN Reason: Breakthrough Nausea/Vomiting Senna/Docusate Sodium (Senokot-S, [place]-Colace) 2 tablet PO BID PRN PRN PRN Reason: Constipation Sodium Chloride () 10 - 40 ml IV UD PRN PRN Reason: SALINE FLUSH Last Admin: 02/03/20 09:08 Dose: 10 ml Documented by: Throat Lozenges (Cepacol Sore Throat Lozenge) 1 lozenge MUCOUS MEM Q2H PRN PRN PRN Reason: SORE THROAT Medical Necessity - Tobacco Use Smoking Status: Never smoker Assessment/Plan All Active Problems (Last Reviewed 01/04/20 @ 10:[address] Prem Barnes MD) Hyperkalemia (Acute) Hypothyroidism (Acute) Hyperglycemia (Acute) Anemia (Acute) Acute kidney injury on CKD stage IV (Acute) 1. Acute kidney injury on chronic kidney disease stage IV- follows with Dr. Max. Nephrology consulted. Suspect ATN. Placed on midodrine for hypotension. IV albumin. Trend BMP. 2. Hyperkalemia, secondary to #1-resolved following Kayexalate. 3. Pancytopenia with worsening anemia-status post 2 units PRBC. Patient referred to Dr. Robertson during recent admission November 2019 for outpatient colonoscopy. She had occult blood positive stool at that time. Repeat occult blood positive during this admission. Continue twice daily PPI and outpatient follow-up. Will repeat CBC in a.m. Plan to transfuse for hemoglobin less than 7. 4. GUEVARA- undergoes weekly paracentesis. 5. Severe hypothyroidism-TSH 71 which is improved from prior. Synthroid increased to 150 mcg daily. Following with endocrinology as outpatient. 6. Osteoporosis-on Fosamax. 7. Type 2 diabetes [id number] with sliding scale insulin. Continue home insulin regimen. 8. Hypertension-on atenolol. Hold for systolic blood pressure less than 100. 9. History of breast cancer-in remission. DVT prophylaxis-SCDs, pharmacologic prophylaxis contraindicated This patient was seen by Brianda Bo, C [employer]ELOPER-C under the supervision of Dr. Euceda. <Kermit Euceda - Last Filed: 02/03/20 15:06> - Physical Exam Vitals/I&O's: Vital Signs Temp Pulse Resp BP Pulse Ox 97.7 F L 63 18 79/35 L 100 02/03/20 13:00 02/03/20 13:00 02/03/20 13:00 02/03/20 13:00 02/03/20 13:00 Oxygen Delivery Method Room Air Weight: 76.8 kg Body Mass Index (BMI) 29.5 Finger Stick Blood Glucose 406 Intake and Output for Last 24 Hours 02/01/20 02/02/20 02/03/20 23:59 23:59 23:59 Intake Total 1523.38 / 1673.38 2668.33 / 2668.33 515 / 515 Output Total 400 / 400 100 / 100 Balance 1523.38 / 1473.38 2268.33 / 2268.33 415 / 415 Microbiology Past 72 Hours 02/02/20 00:45 Stool Stool Occult Blood (LUZMA) - Final Occult Blood Positive Laboratory Results 02/02/20 16:31: POC Glucose 218 H 02/02/20 21:21: POC Glucose 200 H 02/03/20 06:07: WBC 2.0 L, RBC 2.33 L, Hgb 7.3 L, Hct 22.1 L, MCV 94.8, MCH 31.3, MCHC 33.0, RDW Std Deviation 56.4 H, RDW Coeff of Mary Alice 16.8 H, Plt Count 52 L, MPV 10.3, Immature Gran % (Auto) 0.000, Neut % (Auto) 63.8, Lymph % (Auto) 16.6 L, Barnes % (Auto) 10.1 H, Eos % (Auto) 8.5 H, Baso % (Auto) 1.0, Absolute Neuts (auto) 1.3 L, Absolute Lymphs (auto) 0.33 L, Nucleated RBC % 0, Diff Path Review May , Platelet Estimate MOD DEC, Hypochromasia RARE, Anisocytosis 1+, Macrocytosis RARE 02/03/20 06:07: Sodium 138, Potassium 3.5, Chloride 106, Carbon Dioxide 23.0, Anion Gap 9, BUN 100 H, Creatinine 3.31 H, Estim Creat Clear Calc 11.97, Est GFR (MDRD) Af Amer 18 L, Est GFR (MDRD) Non-Af 15 L, BUN/Creatinine Ratio 30.2 H, Glucose 135 H, Calcium 8.0 L, Total Bilirubin 0.80, AST 25, ALT 31, Alkaline Phosphatase 107, Total Protein 4.9 L, Albumin 2.5 L, Globulin 2.4, Albumin/Globulin Ratio 1.0 02/03/20 08:38: POC Glucose 131 H 02/03/20 11:27: POC Glucose 263 H Current Medications Acetaminophen (Tylenol) 650 mg PO Q6H PRN PRN PRN Reason: Pain Score 1-10/Temp > 100.7 F Albuterol Sulfate (Ventolin Aerosols) 2.5 mg INHALATION Q2H PRN PRN PRN Reason: SOB/Wheezing Atenolol (Tenormin (Beta Stuart)) 50 mg PO DAILY [facility] Last Admin: 02/03/20 09:05 Dose: 50 mg Documented by: Dextrose (D50w Syringe) 0 gm IV X1 PRN; Protocol PRN Reason: Hypoglycemia Ergocalciferol (Vitamin D) 50,000 unit PO FR [facility] Last Admin: 02/02/20 08:55 Dose: 50,000 unit Documented by: Furosemide (Lasix) 40 mg PO QODAY [facility] Last Admin: 02/02/20 08:56 Dose: 40 mg Documented by: Glucagon () 1 mg IM .X1 PRN PRN Reason: Hypoglycemia Guaifenesin (Robitussin) 20 ml PO Q4H PRN PRN PRN Reason: COUGH Hydralazine HCl (Apresoline Iv) 10 mg IV Q4H PRN PRN PRN Reason: SBP > 160 Sodium Chloride () 500 mls @ 15 mls/hr IV PRN PRN PRN Reason: Blood Transfusion Sodium Chloride () 250 mls @ 15 mls/hr IV .[id number] PRN PRN Reason: Saline Flush Sodium Chloride () 250 mls @ 15 mls/hr IV .[id number] PRN PRN Reason: Additional IVPB Infusion Albumin Human () 25 gm in 100 mls @ 60 mls/hr IV Q8H [facility] Last Infusion: 02/03/20 10:30 Dose: Infused Documented by: Insulin Glargine (Lantus (Bkc)) 36 units SC BID [facility] Last Admin: 02/03/20 09:06 Dose: 36 units Documented by: Insulin Human Lispro (Humalog Kwikpen (Bk)) 5 unit SC TIDAC [facility] Last Admin: 02/03/20 11:28 Dose: 5 units Documented by: Insulin Human Lispro (Humalog Kwikpen (Bkc)) 0 unit SC ACHS [facility]; Protocol Last Admin: 02/03/20 11:29 Dose: 6 u Documented by: Levothyroxine Sodium (Synthroid) 150 mcg PO DAILY@0600 [facility] Last Admin: 02/03/20 06:23 Dose: 150 mcg Documented by: Midodrine (Proamatine) 5 mg PO TID [facility] Last Admin: 02/03/20 13:05 Dose: 5 mg Documented by: Morphine Sulfate () 2 mg IV Q3H PRN PRN PRN Reason: Pain Score 6-10/10 Nitroglycerin (Nitrostat) 0.4 mg SUBLINGUAL Q5M PRN PRN Reason: CARDIAC/CHEST PAIN Oxycodone HCl (Oxyir) 5 mg PO Q4H PRN PRN PRN Reason: Pain Score 4-5/10 Pantoprazole Sodium (Protonix) 40 mg PO BID [facility] Last Admin: 02/03/20 09:05 Dose: 40 mg Documented by: Prochlorperazine Edisylate (Compazine Iv) 5 mg IV Q4H PRN PRN PRN Reason: Breakthrough Nausea/Vomiting Senna/Docusate Sodium (Senokot-S, [place]-Colace) 2 tablet PO BID PRN PRN PRN Reason: Constipation Sodium Chloride () 10 - 40 ml IV UD PRN PRN Reason: SALINE FLUSH Last Admin: 02/03/20 09:08 Dose: 10 ml Documented by: Throat Lozenges (Cepacol Sore Throat Lozenge) 1 lozenge MUCOUS MEM Q2H PRN PRN PRN Reason: SORE THROAT Assessment/Plan This patient was seen in conjunction with CHRISTAL Wei . I have independently interviewed and examined the patient and reviewed pertinent historical, laboratory, and other data. Please refer to CHRISTAL Wei note for details of this patient's presentation, findings, and recommendations. I have reviewed Brianda Bo, C [employer]ELOPER-C note and concur with documented findings. In brief, Patient is a 74-year-old lady with history of cirrhosis of the liver from nonalcoholic fatty liver disease on q. weekly paracentesis who was sent to the hospital with abnormal lab work with worsening kidney function and potassium of 6.1 as well as anemia with hemoglobin of 5.7 Physical Examination: GENERAL: cooperative HEENT: Atraumatic; EYES; Anicteric, Normal Conjunctiva NECK; supple, normal thyroid, RESPIRATORY: Diminished to auscultation CARDIOVASCULAR: Regular S1 S2, GI: soft, normoactive bowel sounds, : No Renal angle tenderness; EXTREMITIES: No edema, no clubbing, MUSCULOSKELETAL: no muscle waisting NEURO: Awake; no lateralizing signs. SKIN: No Rash PSYCH; Flat affect Assessment: 1. Acute kidney injury 2. Hyperkalemia 3. Pancytopenia 4. 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 Hypothyroidism 6. Diabetes mellitus type II 7. Osteoporosis 8. History of breast cancer 9. Hypertension 10. Chronic kidney disease stage IV 11. DVT prophylaxis ?Chemoprophylaxis contraindicated in view of patient low platelet count Recommendations: 1. I have discussed the results of my overview and impressions with the patient 2. Options for management were reviewed Inpatient E&M: 68132 Subs Hosp L2
[2020-02-03 12:36] LABS: Bedside Glucose 263 mg/dL (70-110)
--- NOTE | 2020-02-03 13:43 | CASEMGMT ---
LW/POA forms on file under summary tab in echart. JIGNA Rosario
--- NOTE | 2020-02-03 16:45 | PN.RENAL_ITS ---
Patient Problems: Active and Suspected Problems (Last Reviewed 01/04/20 @ 10:[address] Prem Barnes MD) Hyperkalemia (Acute) Hypothyroidism (Acute) Hyperglycemia (Acute) Anemia (Acute) Acute kidney injury on CKD stage IV (Acute) Subjective: No nausea No vomiting No SOB Making urine eating well - Physical Exam Vitals/I&O's: Vital Signs Temp Pulse Resp BP Pulse Ox 97.5 F L 57 L 18 82/40 L 100 02/03/20 15:00 02/03/20 15:00 02/03/20 15:00 02/03/20 15:00 02/03/20 15:00 Oxygen Delivery Method Room Air Weight: 76.8 kg Body Mass Index (BMI) 29.5 Finger Stick Blood Glucose 406 Intake and Output for Last 24 Hours 02/01/20 02/02/20 02/03/20 23:59 23:59 23:59 Intake Total 1523.38 / 1673.38 2668.33 / 2668.33 515 / 515 Output Total 400 / 400 100 / 100 Balance 1523.38 / 1473.38 2268.33 / 2268.33 415 / 415 General: Alert, Oriented x3 HEENT: Atraumatic Oral: Moist Mucosa Neck: Supple, No JVD Lungs: Clear to auscultation, Normal air movement, No rhonchi, No wheeze Cardiovascular: Regular rate, Regular Rhythm, Normal S1, Normal S2 Abdomen: Bowel Sounds Present, Soft, Non Tender, Non-Distended Extremities: No clubbing, No cyanosis, Edema - trace Skin: No rashes Musculoskeletal: No Tenderness to Palpation of Joints or Extremities Lymphatic: No Cervical, Supraclavicular, or Inguinal Adenopathy Neurological: Cranial nerves II-XII grossly intact Psych/Mental Status: Appropriate Microbiology Past 72 Hours 02/02/20 00:45 Stool Stool Occult Blood (LUZMA) - Final Occult Blood Positive Laboratory Results 02/02/20 21:21: POC Glucose 200 H 02/03/20 06:07: WBC 2.0 L, RBC 2.33 L, Hgb 7.3 L, Hct 22.1 L, MCV 94.8, MCH 31.3, MCHC 33.0, RDW Std Deviation 56.4 H, RDW Coeff of Mary Alice 16.8 H, Plt Count 52 L, MPV 10.3, Immature Gran % (Auto) 0.000, Neut % (Auto) 63.8, Lymph % (Auto) 16.6 L, [place] % (Auto) 10.1 H, Eos % (Auto) 8.5 H, Baso % (Auto) 1.0, Absolute Neuts (auto) 1.3 L, Absolute Lymphs (auto) 0.33 L, Nucleated RBC % 0, Diff Path Review May foll, Platelet Estimate MOD DEC, Hypochromasia RARE, Anisocytosis 1+, Macrocytosis RARE 02/03/20 06:07: Sodium 138, Potassium 3.5, Chloride 106, Carbon Dioxide 23.0, Anion Gap 9, BUN 100 H, Creatinine 3.31 H, Estim Creat Clear Calc 11.97, Est GFR (MDRD) Af Amer 18 L, Est GFR (MDRD) Non-Af 15 L, BUN/Creatinine Ratio 30.2 H, Glucose 135 H, Calcium 8.0 L, Total Bilirubin 0.80, AST 25, ALT 31, Alkaline Phosphatase 107, Total Protein 4.9 L, Albumin 2.5 L, Globulin 2.4, Albumin/Globulin Ratio 1.0 02/03/20 08:38: POC Glucose 131 H 02/03/20 11:27: POC Glucose 263 H Current Medications Acetaminophen (Tylenol) 650 mg PO Q6H PRN PRN PRN Reason: Pain Score 1-10/Temp > 100.7 F Albuterol Sulfate (Ventolin Aerosols) 2.5 mg INHALATION Q2H PRN PRN PRN Reason: SOB/Wheezing Atenolol (Tenormin (Beta Stuart)) 50 mg PO DAILY [facility] Last Admin: 02/03/20 09:05 Dose: 50 mg Documented by: Dextrose (D50w Syringe) 0 gm IV X1 PRN; Protocol PRN Reason: Hypoglycemia Ergocalciferol (Vitamin D) 50,000 unit PO FR [facility] Last Admin: 02/02/20 08:55 Dose: 50,000 unit Documented by: Glucagon () 1 mg IM .X1 PRN PRN Reason: Hypoglycemia Guaifenesin (Robitussin) 20 ml PO Q4H PRN PRN PRN Reason: COUGH Hydralazine HCl (Apresoline Iv) 10 mg IV Q4H PRN PRN PRN Reason: SBP > 160 Sodium Chloride () 500 mls @ 15 mls/hr IV PRN PRN PRN Reason: Blood Transfusion Sodium Chloride () 250 mls @ 15 mls/hr IV .[id number] PRN PRN Reason: Saline Flush Sodium Chloride () 250 mls @ 15 mls/hr IV .[id number] PRN PRN Reason: Additional IVPB Infusion Albumin Human () 25 gm in 100 mls @ 60 mls/hr IV Q8H [facility] Last Admin: 02/03/20 16:06 Dose: 60 mls/hr Documented by: Insulin Glargine (Lantus (Bk)) 36 units SC BID [facility] Last Admin: 02/03/20 09:06 Dose: 36 units Documented by: Insulin Human Lispro (Humalog Kwikpen ([facility])) 5 unit SC TIDAC [facility] Last Admin: 02/03/20 16:10 Dose: 5 units Documented by: Insulin Human Lispro (Humalog Kwikpen ([facility])) 0 unit SC ACHS [facility]; Protocol Last Admin: 02/03/20 16:11 Dose: 3 u Documented by: Levothyroxine Sodium (Synthroid) 150 mcg PO DAILY@0600 [facility] Last Admin: 02/03/20 06:23 Dose: 150 mcg Documented by: Midodrine (Proamatine) 5 mg PO TID [facility] Last Admin: 02/03/20 13:05 Dose: 5 mg Documented by: Morphine Sulfate () 2 mg IV Q3H PRN PRN PRN Reason: Pain Score 6-10/10 Nitroglycerin (Nitrostat) 0.4 mg SUBLINGUAL Q5M PRN PRN Reason: CARDIAC/CHEST PAIN Oxycodone HCl (Oxyir) 5 mg PO Q4H PRN PRN PRN Reason: Pain Score 4-5/10 Pantoprazole Sodium (Protonix) 40 mg PO BID [facility] Last Admin: 02/03/20 09:05 Dose: 40 mg Documented by: Prochlorperazine Edisylate (Compazine Iv) 5 mg IV Q4H PRN PRN PRN Reason: Breakthrough Nausea/Vomiting Senna/Docusate Sodium (Senokot-S, [place]-Colace) 2 tablet PO BID PRN PRN PRN Reason: Constipation Sodium Chloride () 10 - 40 ml IV UD PRN PRN Reason: SALINE FLUSH Last Admin: 02/03/20 09:08 Dose: 10 ml Documented by: Throat Lozenges (Cepacol Sore Throat Lozenge) 1 lozenge MUCOUS MEM Q2H PRN PRN PRN Reason: SORE THROAT Medical Necessity - Tobacco Use Smoking Status: Never smoker Assessment/Plan All Active Problems (Last Reviewed 01/04/20 @ 10:[address] Prem Barnes MD) Hyperkalemia (Acute) Hypothyroidism (Acute) Hyperglycemia (Acute) Anemia (Acute) Acute kidney injury on CKD stage IV (Acute) 1- COURTNEY on CKD stage 3 from HRS baseline SCr 1.2 mg/dl COURTNEY is likely prerenal from high volume frequent paracentesis along with being on diuretic and low BP SCr is slightly worse today. Will d/c lasix Will give a bolus of NS 500 cc Continue midodrine avoid diuretics Will check urine indices No need for [employer]CH[employer]IC Check RFP in am 2- hyperkalemia from COURTNEY resolved with medical treatment 3- GUEVARA as per the primary service Will continue to follow Please call if any question Alesia Menard MD
[2020-02-03 16:46] LABS: Bedside Glucose 189 mg/dL (70-110)
[2020-02-03 18:47] LABS: Urine Sodium 9 mmol/L (Not Establ.)
[2020-02-03 22:16] LABS: Bedside Glucose 115 mg/dL (70-110)
[2020-02-04] VITALS (24 sets, daily range): BP systolic 89–109; BP diastolic 36–54; PULSE 60–78; RESP 16–18; TEMP 36.7–37.3; O2SAT 96–100
[2020-02-04] MEDS: 0.9% Saline Lock 10 ML Syringe IV ×9 (01:34→23:51)
[2020-02-04 05:14] LABS: Hematocrit 20.2 % (37-47); Hemoglobin 6.6 g/dL (12.0-15.0); Mean Corp Hgb Conc 32.7 g/dL (32-36); Mean Corpuscular Hgb 31.3 pg (27.0-32.0); Mean Corpuscular Volume 95.7 fL (81-99); Mean Platelet Vol. 9.9 fl (6.2-12.0); POSITIVE COUNT YES; RBC Distribution Width CV 16.8 % (11.6-14.6); RBC Distribution Width SD 58.8 fl (35.1-43.9); Red Blood Count 2.11 M/mm3 (4.2-5.4); White Blood Count 1.5 K/mm3 (4.4-11.0)
[2020-02-04 05:17] LABS: POSITIVE DIFFERENTIAL YES; Platelet Count 44 K/mm3 (150-450); Scan Indicated on CBC? Y/N YES- FLAGS NOTED
[2020-02-04 05:37] LABS: Anion Gap 11 (5-15); BUN 104 mg/dL (7-18); BUN/Creat Ratio 28.4 RATIO (10-20); Calcium,Total 8.3 mg/dL (8.5-10.1); Chloride 108 mmol/L (98-107); Creatinine, Serum 3.66 mg/dL (0.55-1.02); EST Glomerular Filtration Rate 13 mL/min (>60); Est Glom Filt Rate - Afr Amer 16 mL/min (>60); Estimated Creatinine Clearance 10.83 ml/min; Glucose 210 mg/dL (74-106); Potassium 3.7 mmol/L (3.5-5.1); Sodium Level 139 mmol/L (136-145)
[2020-02-04] MEDS: Midodrine HCl 5 MG Tablet PO ×3 (05:37→22:01)
[2020-02-04] MEDS: Levothyroxine 150 MCG Tablet PO (05:37)
[2020-02-04 06:22] LABS: Differential Comment SCANNED
[2020-02-04] MEDS: Insulin Lispro 100 UNIT/ML INSULN.PEN SC ×6 (08:04→22:00)
[2020-02-04] MEDS: Albumin Human 25% (100 mL) 25 GM/100 ML BAG IV ×3 (09:17→23:50)
[2020-02-04] MEDS: Pantoprazole Sodium 40 MG Tablet PO (09:26)
[2020-02-04] MEDS: Atenolol 50 MG Tablet PO (09:26)
[2020-02-04 11:36] LABS: Bedside Glucose 168 mg/dL (70-110)
--- NOTE | 2020-02-04 12:07 | PCM.PROGNOTE ---
<Brianda Soriano - Last Filed: 02/04/20 12:17> Patient Problems: Active and Suspected Problems (Last Reviewed 01/04/20 @ 10:[address] Prem Barnes MD) Hyperkalemia (Acute) Hypothyroidism (Acute) Hyperglycemia (Acute) Anemia (Acute) Acute kidney injury on CKD stage IV (Acute) Subjective: Patient seen and examined. States her stools this morning were dark in color. Denies dizziness, lightheadedness. Denies other current symptoms. Patient states she was in emergency room about a month ago and was transferred to [facility] for evaluation for upper GI bleed. - Physical Exam Vitals/I&O's: Vital Signs Temp Pulse Resp BP Pulse Ox 98.8 F 69 18 96/44 L 98 02/04/20 12:01 02/04/20 12:01 02/04/20 12:01 02/04/20 12:01 02/04/20 12:01 Oxygen Delivery Method Room Air Weight: 172 lb 13.478 oz Body Mass Index (BMI) 29.5 Finger Stick Blood Glucose 406 Intake and Output for Last 24 Hours 02/02/20 02/03/20 02/04/20 23:59 23:59 23:59 Intake Total 2668.33 / 2668.33 1415 / 1415 500 / 500 Output Total 400 / 400 350 / 350 Balance 2268.33 / 2268.33 1065 / 1065 500 / 500 General: Alert, Oriented x3, Cooperative HEENT: Atraumatic, PERRLA, EOMI, Normocephalic Neck: Supple, No JVD, Negative Carotid Bruits Lungs: Clear to auscultation, Normal air movement Cardiovascular: Regular rate, No murmurs Abdomen: Bowel Sounds Present, Soft, Non Tender, Non-Distended, Obese Extremities: No clubbing, No cyanosis, No edema, Capillary Refill Less than 3 Seconds Skin: No rashes, No breakdown Musculoskeletal: No Tenderness to Palpation of Joints or Extremities Neurological: Cranial nerves II-XII grossly intact, Neuro grossly intact Psych/Mental Status: Normal Affect, Appropriate Microbiology Past 72 Hours 02/02/20 00:45 Stool Stool Occult Blood (LUZMA) - Final Occult Blood Positive Laboratory Results 02/01/20 19:55: Crossmatch See Detail 02/03/20 11:27: POC Glucose 263 H 02/03/20 16:09: POC Glucose 189 H 02/03/20 17:21: Ur Random Sodium 9 02/03/20 17:21: Urine Creatinine 162.00 02/03/20 21:36: POC Glucose 115 H 02/04/20 05:05: WBC 1.5 L, RBC 2.11 L, Hgb 6.6 L, Hct 20.2 L, MCV 95.7, MCH 31.3, MCHC 32.7, RDW Std Deviation 58.8 H, RDW Coeff of Mary Alice 16.8 H, Plt Count 44 L*, MPV 9.9, Differential Comment SCANNED, Diff Path Review October02/04/20 05:05: Sodium 139, Potassium 3.7, Chloride 108 H, Carbon Dioxide 20.0 L, Anion Gap 11, BUN 104 H*, Creatinine 3.66 H, Estim Creat Clear Calc 10.83, Est GFR (MDRD) Af Amer 16 L, Est GFR (MDRD) Non-Af 13 L, BUN/Creatinine Ratio 28.4 H, Glucose 210 H, Calcium 8.3 L 02/04/20 08:02: POC Glucose 168 H Current Medications Acetaminophen (Tylenol) 650 mg PO Q6H PRN PRN PRN Reason: Pain Score 1-10/Temp > 100.7 F Albuterol Sulfate (Ventolin Aerosols) 2.5 mg INHALATION Q2H PRN PRN PRN Reason: SOB/Wheezing Atenolol (Tenormin (Beta Stuart)) 50 mg PO DAILY [facility]END[facility] TO [facility] Last Admin: 02/04/20 09:26 Dose: 50 mg Documented by: Dextrose (D50w Syringe) 0 gm IV X1 PRN; Protocol PRN Reason: Hypoglycemia Ergocalciferol (Vitamin D) 50,000 unit PO FR [facility] Last Admin: 02/02/20 08:55 Dose: 50,000 unit Documented by: Glucagon () 1 mg IM .X1 PRN PRN Reason: Hypoglycemia Guaifenesin (Robitussin) 20 ml PO Q4H PRN PRN PRN Reason: COUGH Hydralazine HCl (Apresoline Iv) 10 mg IV Q4H PRN PRN PRN Reason: SBP > 160 Sodium Chloride () 500 mls @ 15 mls/hr IV PRN PRN PRN Reason: Blood Transfusion Sodium Chloride () 250 mls @ 15 mls/hr IV .[id number] PRN PRN Reason: Saline Flush Sodium Chloride () 250 mls @ 15 mls/hr IV .[id number] PRN PRN Reason: Additional IVPB Infusion Albumin Human () 25 gm in 100 mls @ 60 mls/hr IV Q8H [facility] Last Infusion: 02/04/20 11:14 Dose: Infused Documented by: Insulin Glargine (Lantus (Bk)) 36 units SC BID [facility] Last Admin: 02/04/20 09:26 Dose: 36 units Documented by: Insulin Human Lispro (Humalog Kwikpen ([facility])) 5 unit SC TIDAC [facility] Last Admin: 02/04/20 11:37 Dose: 5 units Documented by: Insulin Human Lispro (Humalog Kwikpen ([facility])) 0 unit SC ACHS [facility] TO [facility]; Protocol Last Admin: 02/04/20 11:38 Dose: 9 u Documented by: Levothyroxine Sodium (Synthroid) 150 mcg PO DAILY@0600 [facility] Last Admin: 02/04/20 05:37 Dose: 150 mcg Documented by: Midodrine (Proamatine) 5 mg PO TID [facility] Last Admin: 02/04/20 05:37 Dose: 5 mg Documented by: Morphine Sulfate () 2 mg IV Q3H PRN PRN PRN Reason: Pain Score 6-10/10 Nitroglycerin (Nitrostat) 0.4 mg SUBLINGUAL Q5M PRN PRN Reason: CARDIAC/CHEST PAIN Oxycodone HCl (Oxyir) 5 mg PO Q4H PRN PRN PRN Reason: Pain Score 4-5/10 Pantoprazole Sodium (Protonix) 40 mg PO BID [facility] Last Admin: 02/04/20 09:26 Dose: 40 mg Documented by: Prochlorperazine Edisylate (Compazine Iv) 5 mg IV Q4H PRN PRN PRN Reason: Breakthrough Nausea/Vomiting Senna/Docusate Sodium (Senokot-S, [place]-Colace) 2 tablet PO BID PRN PRN PRN Reason: Constipation Sodium Chloride () 10 - 40 ml IV UD PRN PRN Reason: SALINE FLUSH Last Admin: 02/04/20 11:40 Dose: 10 ml Documented by: Throat Lozenges (Cepacol Sore Throat Lozenge) 1 lozenge MUCOUS MEM Q2H PRN PRN PRN Reason: SORE THROAT Medical Necessity - Tobacco Use Smoking Status: Never smoker Assessment/Plan All Active Problems (Last Reviewed 01/04/20 @ 10:[address] Prem Barnes MD) Hyperkalemia (Acute) Hypothyroidism (Acute) Hyperglycemia (Acute) Anemia (Acute) Acute kidney injury on CKD stage IV (Acute) 1. Acute kidney injury on chronic kidney disease stage IV- follows with Dr. Max. Nephrology consulted. Suspect ATN. Placed on midodrine for hypotension. IV albumin. Trend BMP. Lasix discontinued. 2. Hyperkalemia, secondary to #1-resolved following Kayexalate. 3. Pancytopenia/acute on chronic anemia- Recent transfer to [facility] for upper GI bleed status post EGD with argon plasma coagulation therapy for gastric antral vascular ectasia. She underwent upper endoscopy 01/09 which showed stomach vascular ectasia. Repeat upper endoscopy 01/10 for laser treatment. Status post 4 units PRBC and 1 unit platelet. IV PPI. Trend H&H. If hemoglobin remains unstable, consider transfer back to [facility] for further evaluation and treatment. 4. GUEVARA- undergoes weekly paracentesis. Follows with Dr. Allen. 5. Severe hypothyroidism-TSH 71 which is improved from prior. Synthroid increased to 150 mcg daily. Following with endocrinology as outpatient. 6. Osteoporosis-on Fosamax. 7. Type 2 diabetes [id number] with sliding scale insulin. Continue home insulin regimen. 8. Hypertension-on atenolol. Hold for systolic blood pressure less than 100. 9. History of breast cancer-in remission. DVT prophylaxis-SCDs, pharmacologic prophylaxis contraindicated This patient was seen by CHRISTAL Wei under the supervision of Dr. Euceda. <Kerimt Euceda - Last Filed: 02/04/20 13:12> - Physical Exam Vitals/I&O's: Vital Signs Temp Pulse Resp BP Pulse Ox 98.8 F 73 18 100/45 L 98 02/04/20 12:16 02/04/20 12:16 02/04/20 12:16 02/04/20 12:16 02/04/20 12:16 Oxygen Delivery Method Room Air Weight: 78.4 kg Body Mass Index (BMI) 29.5 Finger Stick Blood Glucose 406 Intake and Output for Last 24 Hours 02/02/20 02/03/20 02/04/20 23:59 23:59 23:59 Intake Total 2668.33 / 2668.33 1415 / 1415 500 / 500 Output Total 400 / 400 350 / 350 Balance 2268.33 / 2268.33 1065 / 1065 500 / 500 Microbiology Past 72 Hours 02/02/20 00:45 Stool Stool Occult Blood (LUZMA) - Final Occult Blood Positive Laboratory Results 02/01/20 19:55: Crossmatch See Detail 02/03/20 16:09: POC Glucose 189 H 02/03/20 17:21: Ur Random Sodium 9 02/03/20 17:21: Urine Creatinine 162.00 02/03/20 21:36: POC Glucose 115 H 02/04/20 05:05: WBC 1.5 L, RBC 2.11 L, Hgb 6.6 L, Hct 20.2 L, MCV 95.7, MCH 31.3, MCHC 32.7, RDW Std Deviation 58.8 H, RDW Coeff of Mary Alice 16.8 H, Plt Count 44 L*, MPV 9.9, Differential Comment SCANNED, Diff Path Review October02/04/20 05:05: Sodium 139, Potassium 3.7, Chloride 108 H, Carbon Dioxide 20.0 L, Anion Gap 11, BUN 104 H*, Creatinine 3.66 H, Estim Creat Clear Calc 10.83, Est GFR (MDRD) Af Amer 16 L, Est GFR (MDRD) Non-Af 13 L, BUN/Creatinine Ratio 28.4 H, Glucose 210 H, Calcium 8.3 L 02/04/20 08:02: POC Glucose 168 H 02/04/20 11:35: POC Glucose 260 H Current Medications Acetaminophen (Tylenol) 650 mg PO Q6H PRN PRN PRN Reason: Pain Score 1-10/Temp > 100.7 F Albuterol Sulfate (Ventolin Aerosols) 2.5 mg INHALATION Q2H PRN PRN PRN Reason: SOB/Wheezing Atenolol (Tenormin (Beta Stuart)) 50 mg PO DAILY [facility] Last Admin: 02/04/20 09:26 Dose: 50 mg Documented by: Dextrose (D50w Syringe) 0 gm IV X1 PRN; Protocol PRN Reason: Hypoglycemia Ergocalciferol (Vitamin D) 50,000 unit PO FR PENDING SALE TO [facility] Last Admin: 02/02/20 08:55 Dose: 50,000 unit Documented by: Glucagon () 1 mg IM .X1 PRN PRN Reason: Hypoglycemia Guaifenesin (Robitussin) 20 ml PO Q4H PRN PRN PRN Reason: COUGH Hydralazine HCl (Apresoline Iv) 10 mg IV Q4H PRN PRN PRN Reason: SBP > 160 Sodium Chloride () 500 mls @ 15 mls/hr IV PRN PRN PRN Reason: Blood Transfusion Sodium Chloride () 250 mls @ 15 mls/hr IV .[id number] PRN PRN Reason: Saline Flush Sodium Chloride () 250 mls @ 15 mls/hr IV .[id number] PRN PRN Reason: Additional IVPB Infusion Albumin Human () 25 gm in 100 mls @ 60 mls/hr IV Q8H PENDING SALE TO [facility] Last Infusion: 02/04/20 11:14 Dose: Infused Documented by: Pantoprazole Sodium 40 mg/ (Sodium Chloride) 110 mls @ 330 mls/hr IV Q12 PENDING SALE TO [facility] Insulin Glargine (Lantus (Bkc)) 36 units SC BID PENDING SALE TO [facility] Last Admin: 02/04/20 09:26 Dose: 36 units Documented by: Insulin Human Lispro (Humalog Kwikpen ([facility])) 5 unit SC TIDAC PENDING SALE TO [facility] Last Admin: 02/04/20 11:37 Dose: 5 units Documented by: Insulin Human Lispro (Humalog Kwikpen ([facility])) 0 unit SC ACHS PENDING SALE TO [facility]; Protocol Last Admin: 02/04/20 11:38 Dose: 9 u Documented by: Levothyroxine Sodium (Synthroid) 150 mcg PO DAILY@0600 PENDING SALE TO [facility] Last Admin: 02/04/20 05:37 Dose: 150 mcg Documented by: Midodrine (Proamatine) 5 mg PO TID PENDING SALE [facility] Last Admin: 02/04/20 05:37 Dose: 5 mg Documented by: Morphine Sulfate () 2 mg IV Q3H PRN PRN PRN Reason: Pain Score 6-10/10 Nitroglycerin (Nitrostat) 0.4 mg SUBLINGUAL Q5M PRN PRN Reason: CARDIAC/CHEST PAIN Oxycodone HCl (Oxyir) 5 mg PO Q4H PRN PRN PRN Reason: Pain Score 4-5/10 Prochlorperazine Edisylate (Compazine Iv) 5 mg IV Q4H PRN PRN PRN Reason: Breakthrough Nausea/Vomiting Senna/Docusate Sodium (Senokot-S, [place]-Colace) 2 tablet PO BID PRN PRN PRN Reason: Constipation Sodium Chloride () 10 - 40 ml IV UD PRN PRN Reason: SALINE FLUSH Last Admin: 02/04/20 11:40 Dose: 10 ml Documented by: Throat Lozenges (Cepacol Sore Throat Lozenge) 1 lozenge MUCOUS MEM Q2H PRN PRN PRN Reason: SORE THROAT Assessment/Plan This patient was seen in conjunction with CHRISTAL Wei . I have independently interviewed and examined the patient and reviewed pertinent historical, laboratory, and other data. Please refer to CHRISTAL Wei note for details of this patient's presentation, findings, and recommendations. I have reviewed CHRISTAL Wei note and concur with documented findings. In brief, Patient is a 74-year-old lady with history of cirrhosis of the liver from nonalcoholic fatty liver disease on q. weekly paracentesis who was sent to the hospital with abnormal lab work with worsening kidney function and potassium of 6.1 as well as anemia with hemoglobin of 5.7 02/04/2020: Patient hemoglobin did drop further necessitating patient being transfused with 2 unit PRBC with posttransfusion H&H ordered. Patient had apparently undergone EGD at [facility] with findings of esophageal varices old records requested Physical Examination: GENERAL: cooperative HEENT: Atraumatic; EYES; Anicteric, Normal Conjunctiva NECK; supple, normal thyroid, RESPIRATORY: Diminished to auscultation CARDIOVASCULAR: Regular S1 S2, GI: soft, normoactive bowel sounds, : No Renal angle tenderness; EXTREMITIES: No edema, no clubbing, MUSCULOSKELETAL: no muscle waisting NEURO: Awake; no lateralizing signs. SKIN: No Rash PSYCH; Flat affect Assessment: 1. Acute kidney injury 2. Hyperkalemia 3. Pancytopenia 4. 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 Hypothyroidism 6. Diabetes mellitus type II 7. Osteoporosis 8. History of breast cancer 9. Hypertension 10. Chronic kidney disease stage IV 11. DVT prophylaxis ?Chemoprophylaxis contraindicated in view of patient low platelet count Recommendations: 1. I have discussed the results of my overview and impressions with the patient 2. Options for management were reviewed Inpatient E&M: [id number] [facility] Hosp L3
[2020-02-04 12:51] LABS: Bedside Glucose 260 mg/dL (70-110)
[2020-02-04 17:00] LABS: Bedside Glucose 137 mg/dL (70-110)
[2020-02-04 17:08] LABS: Absolute Lymphocyte Count 0.22 X10^3/uL (0.83-4.51); Absolute Neutrophil Count 1.9 X10^3/uL (2.0-7.7); Basophil# 0.01 X10^3/uL; Basophil% 0.4 % (0-1); Eosinophil# 0.12 X10^3/uL; Eosinophils% 4.9 % (0-5); Hematocrit 26.1 % (37-47); Hemoglobin 8.8 g/dL (12.0-15.0); Lymphocyte # 0.22 X10^3/ul (4.0); Mean Corp Hgb Conc 33.7 g/dL (32-36); Mean Corpuscular Hgb 29.8 pg (27.0-32.0); Mean Corpuscular Volume 88.5 fL (81-99); Mean Platelet Vol. 9.8 fl (6.2-12.0); Monocyte# 0.21 X10^3/uL; Monocyte% 8.6 % (0-10); NRBC Flagged by Analyzer 0 % (0-5); Neutrophil # 1.89 X10^3/uL (2.7-7.7); Neutrophil % 77.1 % (47-70); POSITIVE COUNT YES; POSITIVE DIFFERENTIAL YES; POSITIVE MORPHOLOGY YES; Platelet Count 63 K/mm3 (150-450); RBC Distribution Width CV 20.3 % (11.6-14.6); RBC Distribution Width SD 65.4 fl (35.1-43.9); Red Blood Count 2.95 M/mm3 (4.2-5.4); White Blood Count 2.5 K/mm3 (4.4-11.0)
[2020-02-04 17:09] LABS: Differential Indicated SCAN CRITERIA MET
[2020-02-04 17:41] LABS: Anisocytosis 3+; Differential Comment SCANNED; Ovalocyte RARE; Platelet Estimate MKD DEC (ADEQ)
[2020-02-04 22:11] LABS: Bedside Glucose 186 mg/dL (70-110)
[2020-02-05] VITALS (10 sets, daily range): BP systolic 100–118; BP diastolic 48–63; PULSE 61–77; RESP 12–16; TEMP 36.7–37.2; O2SAT 97–99
[2020-02-05] MEDS: 0.9% Saline Lock 10 ML Syringe IV ×3 (01:30→10:14)
[2020-02-05] MEDS: Midodrine HCl 5 MG Tablet PO ×3 (05:06→21:59)
[2020-02-05] MEDS: Levothyroxine 150 MCG Tablet PO (05:06)
[2020-02-05 06:38] LABS: Hemoglobin 8.8 g/dL (12.0-15.0); Mean Corp Hgb Conc 33.8 g/dL (32-36); Mean Corpuscular Hgb 29.9 pg (27.0-32.0); Mean Corpuscular Volume 88.4 fL (81-99); Mean Platelet Vol. 9.3 fl (6.2-12.0); POSITIVE COUNT YES; POSITIVE MORPHOLOGY YES; Platelet Count 61 K/mm3 (150-450); RBC Distribution Width CV 21.5 % (11.6-14.6); RBC Distribution Width SD 69.2 fl (35.1-43.9); Red Blood Count 2.94 M/mm3 (4.2-5.4); White Blood Count 2.8 K/mm3 (4.4-11.0)
[2020-02-05 06:39] LABS: Scan Indicated on CBC? Y/N YES- FLAGS NOTED
[2020-02-05 06:59] LABS: Differential Comment SCANNED
[2020-02-05 07:08] LABS: Anion Gap 10 (5-15); BUN 113 mg/dL (7-18); BUN/Creat Ratio 30.8 RATIO (10-20); Calcium,Total 8.9 mg/dL (8.5-10.1); Chloride 112 mmol/L (98-107); Creatinine, Serum 3.67 mg/dL (0.55-1.02); EST Glomerular Filtration Rate 13 mL/min (>60); Est Glom Filt Rate - Afr Amer 16 mL/min (>60); Glucose 98 mg/dL (74-106); Magnesium 2.3 mg/dL (1.6-2.6); Potassium 3.6 mmol/L (3.5-5.1); Sodium Level 143 mmol/L (136-145)
[2020-02-05] MEDS: Albumin Human 25% (100 mL) 25 GM/100 ML BAG IV ×3 (08:11→23:59)
[2020-02-05 08:26] LABS: Bedside Glucose 81 mg/dL (70-110)
--- NOTE | 2020-02-05 09:57 | PN.RENAL_ITS ---
Patient Problems: Active and Suspected Problems (Last Reviewed 01/04/20 @ 10:[address] Prem Barnes MD) Hyperkalemia (Acute) Hypothyroidism (Acute) Hyperglycemia (Acute) Anemia (Acute) Acute kidney injury on CKD stage IV (Acute) Subjective: Pt denied nausea vomiting No SOB - Physical Exam Vitals/I&O's: Vital Signs Temp Pulse Resp BP Pulse Ox 98.9 F 61 16 101/58 L 98 02/05/20 05:05 02/05/20 06:51 02/05/20 05:05 02/05/20 05:05 02/05/20 05:05 Oxygen Delivery Method Room Air Weight: 82 kg Body Mass Index (BMI) 29.5 Finger Stick Blood Glucose 406 Intake and Output for Last 24 Hours 02/03/20 02/04/20 02/05/20 23:59 23:59 23:59 Intake Total 1415 / 1415 955 / 1075 340 / 340 Output Total 350 / 350 Balance 1065 / 1065 955 / 1075 340 / 340 General: Alert, Oriented x3 HEENT: Atraumatic Oral: Moist Mucosa Neck: Supple, No JVD Lungs: Clear to auscultation, Normal air movement, No rhonchi, No wheeze Cardiovascular: Regular rate, Regular Rhythm, Normal S1, Normal S2 Abdomen: Bowel Sounds Present, Soft, Non Tender, Distended Extremities: No clubbing, No cyanosis, Edema - +1 edema of LE Skin: No rashes Musculoskeletal: No Tenderness to Palpation of Joints or Extremities Lymphatic: No Cervical, Supraclavicular, or Inguinal Adenopathy Neurological: Cranial nerves II-XII grossly intact, Neuro grossly intact Psych/Mental Status: Normal Affect Laboratory Results 02/01/20 19:55: Crossmatch See Detail 02/04/20 08:02: POC Glucose 168 H 02/04/20 11:35: POC Glucose 260 H 02/04/20 16:11: POC Glucose 137 H 02/04/20 17:00: WBC 2.5 L, RBC 2.95 L, Hgb 8.8 L, Hct 26.1 L, MCV 88.5 D, MCH 29.8, MCHC 33.7, RDW Std Deviation 65.4 H, RDW Coeff of Mary Alice 20.3 H, Plt Count 63 L, MPV 9.8, Immature Gran % (Auto) 0.000, Neut % (Auto) 77.1 H, Lymph % (Auto) 9.0 L, Gillespie % (Auto) 8.6, Eos % (Auto) 4.9, Baso % (Auto) 0.4, Absolute Neuts (auto) 1.9 L, Absolute Lymphs (auto) 0.22 L, Nucleated RBC % 0, Differential Comment SCANNED, Platelet Estimate MKD DEC, Anisocytosis 3+, Ovalocytes RARE 02/04/20 21:58: POC Glucose 186 H 02/05/20 06:13: WBC 2.8 L, RBC 2.94 L, Hgb 8.8 L, Hct 26.0 L, MCV 88.4, MCH 29.9, MCHC 33.8, RDW Std Deviation 69.2 H, RDW Coeff of Mary Alice 21.5 H, Plt Count 61 L, MPV 9.3, Differential Comment SCANNED 02/05/20 06:13: Sodium 143, Potassium 3.6, Chloride 112 H, Carbon Dioxide 21.0, Anion Gap 10, BUN 113 H*, Creatinine 3.67 H, Estim Creat Clear Calc 10.80, Est GFR (MDRD) Af Amer 16 L, Est GFR (MDRD) Non-Af 13 L, BUN/Creatinine Ratio 30.8 H , Glucose 98, Calcium 8.9, Magnesium 2.3 02/05/20 08:06: POC Glucose 81 Current Medications Acetaminophen (Tylenol) 650 mg PO Q6H PRN PRN PRN Reason: Pain Score 1-10/Temp > 100.7 F Albuterol Sulfate (Ventolin Aerosols) 2.5 mg INHALATION Q2H PRN PRN PRN Reason: SOB/Wheezing Atenolol (Tenormin (Beta Stuart)) 50 mg PO DAILY [facility] Last Admin: 02/04/20 09:26 Dose: 50 mg Documented by: Dextrose (D50w Syringe) 0 gm IV X1 PRN; Protocol PRN Reason: Hypoglycemia Ergocalciferol (Vitamin D) 50,000 unit PO FR [facility] Last Admin: 02/02/20 08:55 Dose: 50,000 unit Documented by: Glucagon () 1 mg IM .X1 PRN PRN Reason: Hypoglycemia Guaifenesin (Robitussin) 20 ml PO Q4H PRN PRN PRN Reason: COUGH Hydralazine HCl (Apresoline Iv) 10 mg IV Q4H PRN PRN PRN Reason: SBP > 160 Sodium Chloride () 500 mls @ 15 mls/hr IV PRN PRN PRN Reason: Blood Transfusion Last Infusion: 02/04/20 22:16 Dose: 0 mls/hr Documented by: Sodium Chloride () 250 mls @ 15 mls/hr IV .[id number] PRN PRN Reason: Saline Flush Sodium Chloride () 250 mls @ 15 mls/hr IV .[id number] PRN PRN Reason: Additional IVPB Infusion Albumin Human () 25 gm in 100 mls @ 60 mls/hr IV Q8H [facility] Last Admin: 02/05/20 08:11 Dose: 60 mls/hr Documented by: Pantoprazole Sodium 40 mg/ (Sodium Chloride) 110 mls @ 330 mls/hr IV Q12 [facility] Last Infusion: 02/04/20 22:16 Dose: Infused Documented by: Insulin Glargine (Lantus (Bkc)) 36 units SC BID [facility] Last Admin: 02/05/20 08:16 Dose: Not Given Documented by: Insulin Human Lispro (Humalog Kwikpen ([facility])) 5 unit SC TIDAC [facility] Last Admin: 02/05/20 08:16 Dose: Not Given Documented by: Insulin Human Lispro (Humalog Kwikpen ([facility])) 0 unit SC ACHS [facility]; Protocol Last Admin: 02/05/20 08:07 Dose: Not Given Documented by: Levothyroxine Sodium (Synthroid) 150 mcg PO DAILY@0600 [facility] Last Admin: 02/05/20 05:06 Dose: 150 mcg Documented by: Midodrine (Proamatine) 5 mg PO TID [facility] Last Admin: 02/05/20 05:06 Dose: 5 mg Documented by: Morphine Sulfate () 2 mg IV Q3H PRN PRN PRN Reason: Pain Score 6-10/10 Nitroglycerin (Nitrostat) 0.4 mg SUBLINGUAL Q5M PRN PRN Reason: CARDIAC/CHEST PAIN Oxycodone HCl (Oxyir) 5 mg PO Q4H PRN PRN PRN Reason: Pain Score 4-5/10 Prochlorperazine Edisylate (Compazine Iv) 5 mg IV Q4H PRN PRN PRN Reason: Breakthrough Nausea/Vomiting Senna/Docusate Sodium (Senokot-S, [place]-Colace) 2 tablet PO BID PRN PRN PRN Reason: Constipation Sodium Chloride () 10 - 40 ml IV UD PRN PRN Reason: SALINE FLUSH Last Admin: 02/05/20 06:19 Dose: 30 ml Documented by: Throat Lozenges (Cepacol Sore Throat Lozenge) 1 lozenge MUCOUS MEM Q2H PRN PRN PRN Reason: SORE THROAT Medical Necessity - Tobacco Use Smoking Status: Never smoker Assessment/Plan All Active Problems (Last Reviewed 01/04/20 @ 10:[address] Prem Barnes MD) Hyperkalemia (Acute) Hypothyroidism (Acute) Hyperglycemia (Acute) Anemia (Acute) Acute kidney injury on CKD stage IV (Acute) 1- COURTNEY on CKD stage 3 from HRS baseline SCr 1.2 mg/dl COURTNEY is likely prerenal from high volume frequent paracentesis along with being on diuretic and low BP Vs HRS Mary < 10 SCr is stable today at 3.6 mg/dL BUN is rising to 114 but no uremic symptoms Agree with IV albumin Continue midodrine. 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 s/p RBC transfusion 02/03. on PPI IV Stable h and H Will continue to follow Please call if any question Alesia Menard MD
--- NOTE | 2020-02-05 11:08 | PCM.PROGNOTE ---
<Brianda Soriano - Last Filed: 02/05/20 11:24> Patient Problems: Active and Suspected Problems (Last Reviewed 01/04/20 @ 10:[address] Prem Barnes MD) Hyperkalemia (Acute) Hypothyroidism (Acute) Hyperglycemia (Acute) Anemia (Acute) Acute kidney injury on CKD stage IV (Acute) Subjective: Patient seen and examined. Denies symptoms or complaints. Nephrology discussing initiating hemodialysis with patient. Patient in agreement if this is found to be necessary. She reports stools are dark in color. Denies bright red blood. - Physical Exam Vitals/I&O's: Vital Signs Temp Pulse Resp BP Pulse Ox 98.1 F 69 16 100/48 L 97 02/05/20 10:15 02/05/20 10:15 02/05/20 10:15 02/05/20 10:15 02/05/20 10:15 Oxygen Delivery Method Room Air Weight: 180 lb 12.465 oz Body Mass Index (BMI) 29.5 Finger Stick Blood Glucose 406 Intake and Output for Last 24 Hours 02/03/20 02/04/20 02/05/20 23:59 23:59 23:59 Intake Total 1415 / 1415 955 / 1075 440 / 440 Output Total 350 / 350 Balance 1065 / 1065 955 / 1075 440 / 440 General: Alert, Oriented x3, Cooperative HEENT: Atraumatic, PERRLA, EOMI, Normocephalic Neck: Supple, No JVD, Negative Carotid Bruits Lungs: Clear to auscultation, Normal air movement Cardiovascular: Regular rate, No murmurs Abdomen: Bowel Sounds Present, Soft, Non Tender, Non-Distended, Obese Extremities: No clubbing, No cyanosis, No edema, Capillary Refill Less than 3 Seconds Skin: No rashes, No breakdown Musculoskeletal: No Tenderness to Palpation of Joints or Extremities Neurological: Cranial nerves II-XII grossly intact, Neuro grossly intact Psych/Mental Status: Normal Affect, Appropriate Laboratory Results 02/01/20 19:55: Crossmatch See Detail 02/04/20 08:02: POC Glucose 168 H 02/04/20 11:35: POC Glucose 260 H 02/04/20 16:11: POC Glucose 137 H 02/04/20 17:00: WBC 2.5 L, RBC 2.95 L, Hgb 8.8 L, Hct 26.1 L, MCV 88.5 D, MCH 29.8, MCHC 33.7, RDW Std Deviation 65.4 H, RDW Coeff of Mary Alice 20.3 H, Plt Count 63 L, MPV 9.8, Immature Gran % (Auto) 0.000, Neut % (Auto) 77.1 H, Lymph % (Auto) 9.0 L, [place] % (Auto) 8.6, Eos % (Auto) 4.9, Baso % (Auto) 0.4, Absolute Neuts (auto) 1.9 L, Absolute Lymphs (auto) 0.22 L, Nucleated RBC % 0, Differential Comment SCANNED, Platelet Estimate MKD DEC, Anisocytosis 3+, Ovalocytes RARE 02/04/20 21:58: POC Glucose 186 H 02/05/20 06:13: WBC 2.8 L, RBC 2.94 L, Hgb 8.8 L, Hct 26.0 L, MCV 88.4, MCH 29.9, MCHC 33.8, RDW Std Deviation 69.2 H, RDW Coeff of Mary Alice 21.5 H, Plt Count 61 L, MPV 9.3, Differential Comment SCANNED 02/05/20 06:13: Sodium 143, Potassium 3.6, Chloride 112 H, Carbon Dioxide 21.0, Anion Gap 10, BUN 113 H*, Creatinine 3.67 H, Estim Creat Clear Calc 10.80, Est GFR (MDRD) Af Amer 16 L, Est GFR (MDRD) Non-Af 13 L, BUN/Creatinine Ratio 30.8 H, Glucose 98, Calcium 8.9, Magnesium 2.3 02/05/20 08:06: POC Glucose 81 Current Medications Acetaminophen (Tylenol) 650 mg PO Q6H PRN PRN PRN Reason: Pain Score 1-10/Temp > 100.7 F Albuterol Sulfate (Ventolin Aerosols) 2.5 mg INHALATION Q2H PRN PRN PRN Reason: SOB/Wheezing Atenolol (Tenormin (Beta Stuart)) 50 mg PO DAILY [facility] Last Admin: 02/05/20 10:15 Dose: Not Given Documented by: Dextrose (D50w Syringe) 0 gm IV X1 PRN; Protocol PRN Reason: Hypoglycemia Ergocalciferol (Vitamin D) 50,000 unit PO FR [facility] Last Admin: 02/02/20 08:55 Dose: 50,000 unit Documented by: Glucagon () 1 mg IM .X1 PRN PRN Reason: Hypoglycemia Guaifenesin (Robitussin) 20 ml PO Q4H PRN PRN PRN Reason: COUGH Hydralazine HCl (Apresoline Iv) 10 mg IV Q4H PRN PRN PRN Reason: SBP > 160 Sodium Chloride () 500 mls @ 15 mls/hr IV PRN PRN PRN Reason: Blood Transfusion Last Infusion: 02/04/20 22:16 Dose: 0 mls/hr Documented by: Sodium Chloride () 250 mls @ 15 mls/hr IV .[id number] PRN PRN Reason: Saline Flush Sodium Chloride () 250 mls @ 15 mls/hr IV .[id number] PRN PRN Reason: Additional IVPB Infusion Albumin Human () 25 gm in 100 mls @ 60 mls/hr IV Q8H [facility] Last Infusion: 02/05/20 10:16 Dose: Infused Documented by: Pantoprazole Sodium 40 mg/ (Sodium Chloride) 110 mls @ 330 mls/hr IV Q12 [facility] Last Admin: 02/05/20 10:14 Dose: 330 mls/hr Documented by: Insulin Glargine (Lantus (Bkc)) 36 units SC BID [facility] Last Admin: 02/05/20 08:16 Dose: Not Given Documented by: Insulin Human Lispro (Humalog Kwikpen (Bkc)) 5 unit SC TIDAC [facility] Last Admin: 02/05/20 08:16 Dose: Not Given Documented by: Insulin Human Lispro (Humalog Kwikpen (Bkc)) 0 unit SC ACHS [facility]; Protocol Last Admin: 02/05/20 08:07 Dose: Not Given Documented by: Levothyroxine Sodium (Synthroid) 150 mcg PO DAILY@0600 [facility] Last Admin: 02/05/20 05:06 Dose: 150 mcg Documented by: Midodrine (Proamatine) 5 mg PO TID [facility] Last Admin: 02/05/20 05:06 Dose: 5 mg Documented by: Morphine Sulfate () 2 mg IV Q3H PRN PRN PRN Reason: Pain Score 6-10/10 Nitroglycerin (Nitrostat) 0.4 mg SUBLINGUAL Q5M PRN PRN Reason: CARDIAC/CHEST PAIN Oxycodone HCl (Oxyir) 5 mg PO Q4H PRN PRN PRN Reason: Pain Score 4-5/10 Prochlorperazine Edisylate (Compazine Iv) 5 mg IV Q4H PRN PRN PRN Reason: Breakthrough Nausea/Vomiting Senna/Docusate Sodium (Senokot-S, [place]-Colace) 2 tablet PO BID PRN PRN PRN Reason: Constipation Sodium Chloride () 10 - 40 ml IV UD PRN PRN Reason: SALINE FLUSH Last Admin: 02/05/20 10:14 Dose: 10 ml Documented by: Throat Lozenges (Cepacol Sore Throat Lozenge) 1 lozenge MUCOUS MEM Q2H PRN PRN PRN Reason: SORE THROAT Medical Necessity - Tobacco Use Smoking Status: Never smoker Assessment/Plan All Active Problems (Last Reviewed 01/04/20 @ 10:[address] Prem Barnes MD) Hyperkalemia (Acute) Hypothyroidism (Acute) Hyperglycemia (Acute) Anemia (Acute) Acute kidney injury on CKD stage IV (Acute) 1. Acute kidney injury on chronic kidney disease stage IV- follows with Dr. Max. Nephrology consulted. Suspect ATN vs HRS. Placed on midodrine for hypotension. IV albumin. Trend BMP. Lasix discontinued. Nephrology discussing initiating hemodialysis. 2. Hyperkalemia, secondary to #1-resolved following Kayexalate. 3. Pancytopenia/acute on chronic anemia- Recent transfer to [facility] for upper GI bleed status post EGD with argon plasma coagulation therapy for gastric antral vascular ectasia. She underwent upper endoscopy 01/09 which showed stomach vascular ectasia. Repeat upper endoscopy 01/10 for laser treatment. Status post 4 units PRBC and 1 unit platelet. IV PPI. Trend H&H. If hemoglobin remains unstable, consider transfer back to [facility] for further evaluation and treatment. At this time, hemoglobin stable. Patient will need outpatient follow-up with GI. 4. GUEVARA- undergoes weekly paracentesis. Follows with Dr. Allen. 5. Severe hypothyroidism-TSH 71 which is improved from prior. Synthroid increased to 150 mcg daily. Following with endocrinology as outpatient. 6. Osteoporosis-on Fosamax. 7. Type 2 diabetes [id number] with sliding scale insulin. Continue home insulin regimen. 8. Hypertension-on atenolol. Hold for systolic blood pressure less than 100. 9. History of breast cancer-in remission. DVT prophylaxis-SCDs, pharmacologic prophylaxis contraindicated This patient was seen by CHRISTAL Wei under the supervision of Dr. Giron. <Luiza Giron - Last Filed: 02/05/20 15:13> - Physical Exam Vitals/I&O's: Vital Signs Temp Pulse Resp BP Pulse Ox 98.1 F 69 16 100/48 L 97 02/05/20 10:15 02/05/20 10:15 02/05/20 10:15 02/05/20 10:15 02/05/20 10:15 Oxygen Delivery Method Room Air Weight: 82 kg Body Mass Index (BMI) 29.5 Finger Stick Blood Glucose 406 Intake and Output for Last 24 Hours 02/03/20 02/04/20 02/05/20 23:59 23:59 23:59 Intake Total 1415 / 1415 955 / 1075 910 / 910 Output Total 350 / 350 100 / 100 Balance 1065 / 1065 955 / 1075 810 / 810 Laboratory Results 02/01/20 19:55: Crossmatch See Detail 02/03/20 06:07: Diff Path Review Reviewed 02/04/20 05:05: Diff Path Review Reviewed 02/04/20 16:11: POC Glucose 137 H 02/04/20 17:00: WBC 2.5 L, RBC 2.95 L, Hgb 8.8 L, Hct 26.1 L, MCV 88.5 D, MCH 29.8, MCHC 33.7, RDW Std Deviation 65.4 H, RDW Coeff of Mary Alice 20.3 H, Plt Count 63 L, MPV 9.8, Immature Gran % (Auto) 0.000, Neut % (Auto) 77.1 H, Lymph % (Auto) 9.0 L, [place] % (Auto) 8.6, Eos % (Auto) 4.9, Baso % (Auto) 0.4, Absolute Neuts (auto) 1.9 L, Absolute Lymphs (auto) 0.22 L, Nucleated RBC % 0, Differential Comment SCANNED, Platelet Estimate MKD DEC, Anisocytosis 3+, Ovalocytes RARE 02/04/20 21:58: POC Glucose 186 H 02/05/20 06:13: WBC 2.8 L, RBC 2.94 L, Hgb 8.8 L, Hct 26.0 L, MCV 88.4, MCH 29.9, MCHC 33.8, RDW Std Deviation 69.2 H, RDW Coeff of Mary [place] 21.5 H, Plt Count 61 L, MPV 9.3, Differential Comment SCANNED 02/05/20 06:13: Sodium 143, Potassium 3.6, Chloride 112 H, Carbon Dioxide 21.0, Anion Gap 10, BUN 113 H*, Creatinine 3.67 H, Estim Creat Clear Calc 10.80, Est GFR (MDRD) Af Amer 16 L, Est GFR (MDRD) Non-Af 13 L, BUN/Creatinine Ratio 30.8 H, Glucose 98, Calcium 8.9, Magnesium 2.3 02/05/20 08:06: POC Glucose 81 02/05/20 11:37: POC Glucose 192 H Current Medications Acetaminophen (Tylenol) 650 mg PO Q6H PRN PRN PRN Reason: Pain Score 1-10/Temp > 100.7 F Albuterol Sulfate (Ventolin Aerosols) 2.5 mg INHALATION Q2H PRN PRN PRN Reason: SOB/Wheezing Atenolol (Tenormin (Beta Stuart)) 50 mg PO DAILY [facility] Last Admin: 02/05/20 10:15 Dose: Not Given Documented by: Dextrose (D50w Syringe) 0 gm IV X1 PRN; Protocol PRN Reason: Hypoglycemia Ergocalciferol (Vitamin D) 50,000 unit PO FR [facility] Last Admin: 02/02/20 08:55 Dose: 50,000 unit Documented by: Glucagon () 1 mg IM .X1 PRN PRN Reason: Hypoglycemia Guaifenesin (Robitussin) 20 ml PO Q4H PRN PRN PRN Reason: COUGH Hydralazine HCl (Apresoline Iv) 10 mg IV Q4H PRN PRN PRN Reason: SBP > 160 Sodium Chloride () 500 mls @ 15 mls/hr IV PRN PRN PRN Reason: Blood Transfusion Last Infusion: 02/04/20 22:16 Dose: 0 mls/hr Documented by: Sodium Chloride () 250 mls @ 15 mls/hr IV .[id number] PRN PRN Reason: Saline Flush Sodium Chloride () 250 mls @ 15 mls/hr IV .[id number] PRN PRN Reason: Additional IVPB Infusion Albumin Human () 25 gm in 100 mls @ 60 mls/hr IV Q8H [facility] Last Infusion: 02/05/20 10:16 Dose: Infused Documented by: Pantoprazole Sodium 40 mg/ (Sodium Chloride) 110 mls @ 330 mls/hr IV Q12 [facility] Last Infusion: 02/05/20 12:45 Dose: Infused Documented by: Insulin Glargine (Lantus (Bk)) 36 units SC BID [facility] Last Admin: 02/05/20 08:16 Dose: Not Given Documented by: Insulin Human Lispro (Humalog Kwikpen ([facility])) 5 unit SC TIDAC [facility] Last Admin: 02/05/20 11:40 Dose: 5 units Documented by: Insulin Human Lispro (Humalog Kwikpen ([facility])) 0 unit SC ACHS [facility]; Protocol Last Admin: 02/05/20 11:40 Dose: 3 u Documented by: Levothyroxine Sodium (Synthroid) 150 mcg PO DAILY@0600 [facility] Last Admin: 02/05/20 05:06 Dose: 150 mcg Documented by: Midodrine (Proamatine) 5 mg PO TID [facility] Last Admin: 02/05/20 14:44 Dose: 5 mg Documented by: Morphine Sulfate () 2 mg IV Q3H PRN PRN PRN Reason: Pain Score 6-10/10 Nitroglycerin (Nitrostat) 0.4 mg SUBLINGUAL Q5M PRN PRN Reason: CARDIAC/CHEST PAIN Oxycodone HCl (Oxyir) 5 mg PO Q4H PRN PRN PRN Reason: Pain Score 4-5/10 Prochlorperazine Edisylate (Compazine Iv) 5 mg IV Q4H PRN PRN PRN Reason: Breakthrough Nausea/Vomiting Senna/Docusate Sodium (Senokot-S, [place]-Colace) 2 tablet PO BID PRN PRN PRN Reason: Constipation Sodium Chloride () 10 - 40 ml IV UD PRN PRN Reason: SALINE FLUSH Last Admin: 02/05/20 10:14 Dose: 10 ml Documented by: Throat Lozenges (Cepacol Sore Throat Lozenge) 1 lozenge MUCOUS MEM Q2H PRN PRN PRN Reason: SORE THROAT Assessment/Plan This patient was seen in conjunction with Brianda Soriano [employer]. I have independently interviewed and examined the patient and reviewed pertinent historical, laboratory, and other data. Please refer to her note for patient's presentation, findings, and recommendations. Patient was seen and examined. She states that he feels well. Denies any chest pain or dizziness or fever. Her stools are still melena. No acute events overnight. Vitals were reviewed -stable Physical Exam: Gen: Comfortable, not pale, not jaundiced, alert oriented x3 CVS:HS I +II, regular, no murmurs RESP: Diminished at lung bases GI: BS present and normal, distended, nontender, ascites ++ EXT:No edema Labs reviewed: ASSESSMENT: 1. COURTNEY on CKD stage IV 2. Hyperkalemia 3. Acute on chronic anemia 4. Acute GI bleed 5. Pancytopenia 6. GUEVARA, decompensated with ascites 7. Hypothyroidism 8. Osteoporosis 9. Hypertension 10. Type 2 DM Meds reviewed Plan: Continue on IV Albumin, midodrine Repeat blood work in am Inpatient E&M: 60877 Subs Hosp L2
[2020-02-05] MEDS: Insulin Lispro 100 UNIT/ML INSULN.PEN SC ×3 (11:40→22:00)
[2020-02-05 11:46] LABS: Bedside Glucose 192 mg/dL (70-110)
[2020-02-05 12:33] LABS: Pathologist Review Reviewed
[2020-02-05 12:36] LABS: Pathologist Review Reviewed
[2020-02-05 16:35] LABS: Bedside Glucose 136 mg/dL (70-110)
[2020-02-05 22:41] LABS: Bedside Glucose 189 mg/dL (70-110)
[2020-02-06] VITALS (16 sets, daily range): BP systolic 94–109; BP diastolic 38–54; PULSE 65–115; RESP 15–21; TEMP 36.9–37.4; O2SAT 95–98; BMI 29.5
[2020-02-06] MEDS: 0.9% Saline Lock 10 ML Syringe IV ×5 (01:39→22:40)
[2020-02-06 06:35] LABS: Hematocrit 24.8 % (37-47); Hemoglobin 8.2 g/dL (12.0-15.0); Mean Corp Hgb Conc 33.1 g/dL (32-36); Mean Corpuscular Hgb 29.9 pg (27.0-32.0); Mean Corpuscular Volume 90.5 fL (81-99); Mean Platelet Vol. 10.2 fl (6.2-12.0); POSITIVE COUNT YES; POSITIVE MORPHOLOGY YES; Platelet Count 53 K/mm3 (150-450); RBC Distribution Width CV 21.2 % (11.6-14.6); RBC Distribution Width SD 70.2 fl (35.1-43.9); Red Blood Count 2.74 M/mm3 (4.2-5.4); White Blood Count 2.6 K/mm3 (4.4-11.0)
[2020-02-06 06:36] LABS: Scan Indicated on CBC? Y/N YES- FLAGS NOTED
[2020-02-06] MEDS: Levothyroxine 150 MCG Tablet PO (06:38)
[2020-02-06] MEDS: Midodrine HCl 5 MG Tablet PO ×3 (06:38→22:44)
[2020-02-06 07:04] LABS: Anion Gap 8 (5-15); BUN 115 mg/dL (7-18); BUN/Creat Ratio 32.3 RATIO (10-20); Calcium,Total 9.1 mg/dL (8.5-10.1); Chloride 113 mmol/L (98-107); Creatinine, Serum 3.56 mg/dL (0.55-1.02); EST Glomerular Filtration Rate 13 mL/min (>60); Est Glom Filt Rate - Afr Amer 16 mL/min (>60); Estimated Creatinine Clearance 11.13 ml/min; Glucose 173 mg/dL (74-106); Potassium 3.7 mmol/L (3.5-5.1); Sodium Level 143 mmol/L (136-145)
[2020-02-06 07:05] LABS: Bedside Glucose 170 mg/dL (70-110)
[2020-02-06 07:07] LABS: Differential Comment SCANNED
[2020-02-06] MEDS: Insulin Lispro 100 UNIT/ML INSULN.PEN SC ×5 (09:04→22:44)
[2020-02-06] MEDS: Albumin Human 25% (100 mL) 25 GM/100 ML BAG IV (09:09)
--- NOTE | 2020-02-06 09:29 | PN.RENAL_ITS ---
Patient Problems: Active and Suspected Problems (Last Reviewed 01/04/20 @ 10:[address] Prem Barnes MD) Hyperkalemia (Acute) Hypothyroidism (Acute) Hyperglycemia (Acute) Anemia (Acute) Acute kidney injury on CKD stage IV (Acute) Subjective: No nausea No vomiting breathing is stable - Physical Exam Vitals/I&O's: Vital Signs Temp Pulse Resp BP Pulse Ox 99.4 F H 71 16 109/50 L 98 02/06/20 09:00 02/06/20 09:00 02/06/20 09:00 02/06/20 09:00 02/06/20 09:00 Oxygen Delivery Method Room Air Weight: 80.2 kg Body Mass Index (BMI) 29.5 Finger Stick Blood Glucose 406 Intake and Output for Last 24 Hours 02/04/20 02/05/20 02/06/20 23:59 23:59 23:59 Intake Total 955 / 1075 1460 / 1460 225.5 / 225.5 Output Total 550 / 550 250 / 250 Balance 955 / 1075 910 / 910 -24.5 / -24.5 General: Alert, Oriented x3 HEENT: Atraumatic Oral: Moist Mucosa Neck: Supple, No JVD Lungs: Clear to auscultation, Normal air movement, No rhonchi, No wheeze Cardiovascular: Regular rate, Regular Rhythm, Normal S1, Normal S2 Abdomen: Bowel Sounds Present, Soft, Non Tender, Distended Extremities: No clubbing, No cyanosis, Edema Skin: No rashes Musculoskeletal: No Tenderness to Palpation of Joints or Extremities Lymphatic: No Cervical, Supraclavicular, or Inguinal Adenopathy Neurological: Cranial nerves II-XII grossly intact, Neuro grossly intact Psych/Mental Status: Appropriate Laboratory Results 02/03/20 06:07: Diff Path Review Reviewed 02/04/20 05:05: Diff Path Review Reviewed 02/05/20 11:37: POC Glucose 192 H 02/05/20 16:21: POC Glucose 136 H 02/05/20 21:55: POC Glucose 189 H 02/06/20 05:40: WBC 2.6 L, RBC 2.74 L, Hgb 8.2 L, Hct 24.8 L, MCV 90.5, MCH 29.9, MCHC 33.1, RDW Std Deviation 70.2 H, RDW Coeff of [place] 21.2 H, Plt Count 53 L, MPV 10.2, Differential Comment SCANNED 02/06/20 05:40: Sodium 143, Potassium 3.7, Chloride 113 H, Carbon Dioxide 22.0, Anion Gap 8, BUN 115 H*, Creatinine 3.56 H, Estim Creat Clear Calc 11.13, Est GFR (MDRD) Af Amer 16 L, Est GFR (MDRD) Non-Af 13 L, BUN/Creatinine Ratio 32.3 H , Glucose 173 H, Calcium 9.1 02/06/20 06:36: POC Glucose 170 H Current Medications Acetaminophen (Tylenol) 650 mg PO Q6H PRN PRN PRN Reason: Pain Score 1-10/Temp > 100.7 F Albuterol Sulfate (Ventolin Aerosols) 2.5 mg INHALATION Q2H PRN PRN PRN Reason: SOB/Wheezing Atenolol (Tenormin (Beta Stuart)) 50 mg PO DAILY [facility] Last Admin: 02/05/20 10:15 Dose: Not Given Documented by: Dextrose (D50w Syringe) 0 gm IV X1 PRN; Protocol PRN Reason: Hypoglycemia Ergocalciferol (Vitamin D) 50,000 unit PO FR [facility] Last Admin: 02/02/20 08:55 Dose: 50,000 unit Documented by: Glucagon () 1 mg IM .X1 PRN PRN Reason: Hypoglycemia Guaifenesin (Robitussin) 20 ml PO Q4H PRN PRN PRN Reason: COUGH Hydralazine HCl (Apresoline Iv) 10 mg IV Q4H PRN PRN PRN Reason: SBP > 160 Sodium Chloride () 500 mls @ 15 mls/hr IV PRN PRN PRN Reason: Blood Transfusion Last Infusion: 02/06/20 00:01 Dose: 0 mls/hr Documented by: Sodium Chloride () 250 mls @ 15 mls/hr IV .[id number] PRN PRN Reason: Saline Flush Sodium Chloride () 250 mls @ 15 mls/hr IV .[id number] PRN PRN Reason: Additional IVPB Infusion Albumin Human () 25 gm in 100 mls @ 60 mls/hr IV Q8H [facility] Last Admin: 02/06/20 09:09 Dose: 60 mls/hr Documented by: Pantoprazole Sodium 40 mg/ (Sodium Chloride) 110 mls @ 330 mls/hr IV Q12 [facility] Last Infusion: 02/05/20 22:19 Dose: Infused Documented by: Insulin Glargine (Lantus (Bkc)) 36 units SC BID [facility] Last Admin: 02/05/20 21:59 Dose: 36 units Documented by: Insulin Human Lispro (Humalog Kwikpen (Bk)) 5 unit SC TIDAC [facility] Last Admin: 02/06/20 09:04 Dose: 5 units Documented by: Insulin Human Lispro (Humalog Kwikpen (Bkc)) 0 unit SC ACHS [facility]; Protocol Last Admin: 02/06/20 09:04 Dose: 6 u Documented by: Levothyroxine Sodium (Synthroid) 150 mcg PO DAILY@0600 [facility] Last Admin: 02/06/20 06:38 Dose: 150 mcg Documented by: Midodrine (Proamatine) 5 mg PO TID [facility] Last Admin: 02/06/20 06:38 Dose: 5 mg Documented by: Morphine Sulfate () 2 mg IV Q3H PRN PRN PRN Reason: Pain Score 6-10/10 Nitroglycerin (Nitrostat) 0.4 mg SUBLINGUAL Q5M PRN PRN Reason: CARDIAC/CHEST PAIN Oxycodone HCl (Oxyir) 5 mg PO Q4H PRN PRN PRN Reason: Pain Score 4-5/10 Prochlorperazine Edisylate (Compazine Iv) 5 mg IV Q4H PRN PRN PRN Reason: Breakthrough Nausea/Vomiting Senna/Docusate Sodium (Senokot-S, [place]-Colace) 2 tablet PO BID PRN PRN PRN Reason: Constipation Sodium Chloride () 10 - 40 ml IV UD PRN PRN Reason: SALINE FLUSH Last Admin: 02/06/20 09:11 Dose: 10 ml Documented by: Throat Lozenges (Cepacol Sore Throat Lozenge) 1 lozenge MUCOUS MEM Q2H PRN PRN PRN Reason: SORE THROAT Medical Necessity - Tobacco Use Smoking Status: Never smoker Assessment/Plan All Active Problems (Last Reviewed 01/04/20 @ 10:[address] 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 SCr is 3.5 mg/d HEMODIALYSIS TECHNICIAN is indicated Will consult surgery team for access placement Will arrange for the 1st HD session after HD access placement. Continue midodrine. Keep MAP > 65 2- hyperkalemia from COURTNEY resolved with medical treatment 3- GUEVARA as per the primary service 4- GI bleed. s/p RBC transfusion 02/03. on PPI IV Stable h and H Will continue to follow Please call if any question Alesia Menard MD
[2020-02-06 09:45] LABS: Bedside Glucose 251 mg/dL (70-110)
--- NOTE | 2020-02-06 10:28 | PCM.PROGNOTE ---
<Brianda Soriano - Last Filed: 02/06/20 10:36> Patient Problems: Active and Suspected Problems (Last Reviewed 02/06/20 @ 10:[address] Umang Fierro MD) Hyperkalemia (Acute) Hypothyroidism (Acute) Hyperglycemia (Acute) Anemia (Acute) Acute kidney injury on CKD stage IV (Acute) Vascular catheter fitting or adjustment (Acute) Subjective: Patient seen and examined. Nephrology discussed with patient initiating dialysis and patient is in agreement. Plan to undergo tunneled dialysis catheter later today. Patient denies complaints. Tearful regarding need for dialysis however amendable to plan. - Physical Exam Vitals/I&O's: Vital Signs Temp Pulse Resp BP Pulse Ox 99.4 F H 71 16 109/50 L 98 02/06/20 09:00 02/06/20 09:00 02/06/20 09:00 02/06/20 09:00 02/06/20 09:00 Oxygen Delivery Method Room Air Weight: 176 lb 12.972 oz Body Mass Index (BMI) 29.5 Finger Stick Blood Glucose 406 Intake and Output for Last 24 Hours 02/04/20 02/05/20 02/06/20 23:59 23:59 23:59 Intake Total 955 / 1075 1460 / 1460 225.5 / 225.5 Output Total 550 / 550 250 / 250 Balance 955 / 1075 910 / 910 -24.5 / -24.5 General: Alert, Oriented x3, Cooperative HEENT: Atraumatic, PERRLA, EOMI, Normocephalic Neck: Supple, No JVD, Negative Carotid Bruits Lungs: Clear to auscultation, Normal air movement Cardiovascular: Regular rate, No murmurs Abdomen: Bowel Sounds Present, Soft, Non Tender, Non-Distended, Obese Extremities: No clubbing, No cyanosis, No edema, Capillary Refill Less than 3 Seconds Skin: No rashes, No breakdown Musculoskeletal: No Tenderness to Palpation of Joints or Extremities Neurological: Cranial nerves II-XII grossly intact, Neuro grossly intact Psych/Mental Status: Normal Affect, Appropriate Laboratory Results 02/03/20 06:07: Diff Path Review Reviewed 02/04/20 05:05: Diff Path Review Reviewed 02/05/20 11:37: POC Glucose 192 H 02/05/20 16:21: POC Glucose 136 H 02/05/20 21:55: POC Glucose 189 H 02/06/20 05:40: WBC 2.6 L, RBC 2.74 L, Hgb 8.2 L, Hct 24.8 L, MCV 90.5, MCH 29.9, MCHC 33.1, RDW Std Deviation 70.2 H, RDW Coeff of Mary Alice 21.2 H, Plt Count 53 L, MPV 10.2, Differential Comment SCANNED 02/06/20 05:40: Sodium 143, Potassium 3.7, Chloride 113 H, Carbon Dioxide 22.0, Anion Gap 8, BUN 115 H*, Creatinine 3.56 H, Estim Creat Clear Calc 11.13, Est GFR (MDRD) Af Amer 16 L, Est GFR (MDRD) Non-Af 13 L, BUN/Creatinine Ratio 32.3 H, Glucose 173 H, Calcium 9.1 02/06/20 06:36: POC Glucose 170 H 02/06/20 09:02: POC Glucose 251 H Current Medications Acetaminophen (Tylenol) 650 mg PO Q6H PRN PRN PRN Reason: Pain Score 1-10/Temp > 100.7 F Albuterol Sulfate (Ventolin Aerosols) 2.5 mg INHALATION Q2H PRN PRN PRN Reason: SOB/Wheezing Atenolol (Tenormin (Beta Stuart)) 50 mg PO DAILY ON LICENSE OF [facility] Last Admin: 02/05/20 10:15 Dose: Not Given Documented by: Dextrose (D50w Syringe) 0 gm IV X1 PRN; Protocol PRN Reason: Hypoglycemia Ergocalciferol (Vitamin D) 50,000 unit PO FR ON LICENSE OF [facility] Last Admin: 02/02/20 08:55 Dose: 50,000 unit Documented by: Glucagon () 1 mg IM .X1 PRN PRN Reason: Hypoglycemia Guaifenesin (Robitussin) 20 ml PO Q4H PRN PRN PRN Reason: COUGH Hydralazine HCl (Apresoline Iv) 10 mg IV Q4H PRN PRN PRN Reason: SBP > 160 Sodium Chloride () 500 mls @ 15 mls/hr IV PRN PRN PRN Reason: Blood Transfusion Last Infusion: 02/06/20 00:01 Dose: 0 mls/hr Documented by: Sodium Chloride () 250 mls @ 15 mls/hr IV .[id number] PRN PRN Reason: Saline Flush Sodium Chloride () 250 mls @ 15 mls/hr IV .[id number] PRN PRN Reason: Additional IVPB Infusion Pantoprazole Sodium 40 mg/ (Sodium Chloride) 110 mls @ 330 mls/hr IV Q12 ON LICENSE OF [facility] Last Infusion: 02/05/20 22:19 Dose: Infused Documented by: Insulin Glargine (Lantus (Bkc)) 36 units SC BID ON LICENSE OF [facility] Last Admin: 02/05/20 21:59 Dose: 36 units Documented by: Insulin Human Lispro (Humalog Kwikpen (Bk)) 5 unit SC TIDAC ON LICENSE OF [facility] Last Admin: 02/06/20 09:04 Dose: 5 units Documented by: Insulin Human Lispro (Humalog Kwikpen (Bk)) 0 unit SC ACHS ON LICENSE OF [facility]; Protocol Last Admin: 02/06/20 09:04 Dose: 6 u Documented by: Levothyroxine Sodium (Synthroid) 150 mcg PO DAILY@0600 ON LICENSE OF [facility] Last Admin: 02/06/20 06:38 Dose: 150 mcg Documented by: Midodrine (Proamatine) 5 mg PO TID ON LICENSE OF [facility] Last Admin: 02/06/20 06:38 Dose: 5 mg Documented by: Morphine Sulfate () 2 mg IV Q3H PRN PRN PRN Reason: Pain Score 6-10/10 Nitroglycerin (Nitrostat) 0.4 mg SUBLINGUAL Q5M PRN PRN Reason: CARDIAC/CHEST PAIN Oxycodone HCl (Oxyir) 5 mg PO Q4H PRN PRN PRN Reason: Pain Score 4-5/10 Prochlorperazine Edisylate (Compazine Iv) 5 mg IV Q4H PRN PRN PRN Reason: Breakthrough Nausea/Vomiting Senna/Docusate Sodium (Senokot-S, [place]-Colace) 2 tablet PO BID PRN PRN PRN Reason: Constipation Sodium Chloride () 10 - 40 ml IV UD PRN PRN Reason: SALINE FLUSH Last Admin: 02/06/20 09:11 Dose: 10 ml Documented by: Throat Lozenges (Cepacol Sore Throat Lozenge) 1 lozenge MUCOUS MEM Q2H PRN PRN PRN Reason: SORE THROAT Medical Necessity - Tobacco Use Smoking Status: Never smoker Assessment/Plan All Active Problems (Last Reviewed 02/06/20 @ 10:[address] Umang Fierro MD) Hyperkalemia (Acute) Hypothyroidism (Acute) Hyperglycemia (Acute) Anemia (Acute) Acute kidney injury on CKD stage IV (Acute) Vascular catheter fitting or adjustment (Acute) 1. Acute kidney injury on chronic kidney disease stage IV- follows with Dr. Max. Nephrology consulted. Suspect HRS. Placed on midodrine for hypotension. DC further IV albumin. Lasix discontinued. General surgery consulted for tunneled dialysis catheter placement. Plan for catheter placement this afternoon and initiate hemodialysis. 2. Hyperkalemia, secondary to #1-resolved following Kayexalate. 3. 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 She underwent upper endoscopy 01/09 which showed stomach vascular ectasia. Repeat upper endoscopy 01/10 for laser treatment. Status post 4 units PRBC and 1 unit platelet. IV PPI. Trend H&H. If hemoglobin becomes unstable, consider transfer back to [facility] for further evaluation and treatment. At this time, hemoglobin stable. Patient will need outpatient follow-up with GI. 4. GUEVARA- undergoes weekly paracentesis. Follows with Dr. Allen. 5. Severe hypothyroidism-TSH 71 which is improved from prior. Synthroid increased to 150 mcg daily. Following with endocrinology as outpatient. 6. Osteoporosis-on Fosamax. 7. Type 2 diabetes [id number] with sliding scale insulin. Continue home insulin regimen. 8. Hypertension-on atenolol. Hold for systolic blood pressure less than 100. 9. History of breast cancer-in remission. DVT prophylaxis-SCDs, pharmacologic prophylaxis contraindicated This patient was seen by CHRISTAL Wei under the supervision of Dr. Giron. <Luiza Giron - Last Filed: 02/06/20 16:38> - Physical Exam Vitals/I&O's: Vital Signs Temp Pulse Resp BP Pulse Ox 98.4 F 69 16 105/54 L 98 02/06/20 15:55 02/06/20 15:55 02/06/20 15:55 02/06/20 15:55 02/06/20 15:55 Oxygen Delivery Method Room Air Weight: 80.2 kg Body Mass Index (BMI) 29.5 Finger Stick Blood Glucose 406 Intake and Output for Last 24 Hours 02/04/20 02/05/20 02/06/20 23:59 23:59 23:59 Intake Total 955 / 1075 1460 / 1460 795.5 / 795.5 Output Total 550 / 550 450 / 450 Balance 955 / 1075 910 / 910 345.5 / 345.5 Laboratory Results 02/05/20 16:21: POC Glucose 136 H 02/05/20 21:55: POC Glucose 189 H 02/06/20 05:40: WBC 2.6 L, RBC 2.74 L, Hgb 8.2 L, Hct 24.8 L, MCV 90.5, MCH 29.9, MCHC 33.1, RDW Std Deviation 70.2 H, RDW Coeff of Mary Alice 21.2 H, Plt Count 53 L, MPV 10.2, Differential Comment SCANNED 02/06/20 05:40: Sodium 143, Potassium 3.7, Chloride 113 H, Carbon Dioxide 22.0, Anion Gap 8, BUN 115 H*, Creatinine 3.56 H, Estim Creat Clear Calc 11.13, Est GFR (MDRD) Af Amer 16 L, Est GFR (MDRD) Non-Af 13 L, BUN/Creatinine Ratio 32.3 H, Glucose 173 H, Calcium 9.1 02/06/20 06:36: POC Glucose 170 H 02/06/20 09:02: POC Glucose 251 H 02/06/20 11:36: POC Glucose 215 H Current Medications Acetaminophen (Tylenol) 650 mg PO Q6H PRN PRN PRN Reason: Pain Score 1-10/Temp > 100.7 F Albuterol Sulfate (Ventolin Aerosols) 2.5 mg INHALATION Q2H PRN PRN PRN Reason: SOB/Wheezing Atenolol (Tenormin (Beta Stuart)) 50 mg PO DAILY ON LICENSE OF [facility] Last Admin: 02/06/20 11:37 Dose: Not Given Documented by: Dextrose (D50w Syringe) 0 gm IV X1 PRN; Protocol PRN Reason: Hypoglycemia Ergocalciferol (Vitamin D) 50,000 unit PO FR ON LICENSE OF [facility] Last Admin: 02/02/20 08:55 Dose: 50,000 unit Documented by: Glucagon () 1 mg IM .X1 PRN PRN Reason: Hypoglycemia Guaifenesin (Robitussin) 20 ml PO Q4H PRN PRN PRN Reason: COUGH Hydralazine HCl (Apresoline Iv) 10 mg IV Q4H PRN PRN PRN Reason: SBP > 160 Sodium Chloride () 500 mls @ 15 mls/hr IV PRN PRN PRN Reason: Blood Transfusion Last Infusion: 02/06/20 00:01 Dose: 0 mls/hr Documented by: Sodium Chloride () 250 mls @ 15 mls/hr IV .[id number] PRN PRN Reason: Saline Flush Sodium Chloride () 250 mls @ 15 mls/hr IV .[id number] PRN PRN Reason: Additional IVPB Infusion Pantoprazole Sodium 40 mg/ (Sodium Chloride) 110 mls @ 330 mls/hr IV Q12 ON LICENSE OF [facility] Last Infusion: 02/06/20 11:51 Dose: Infused Documented by: Insulin Glargine (Lantus (Bkc)) 36 units SC BID ON LICENSE OF [facility] Last Admin: 02/06/20 13:19 Dose: Not Given Documented by: Insulin Human Lispro (Humalog Kwikpen (Bkc)) 5 unit SC TIDAC ON LICENSE OF [facility] Last Admin: 02/06/20 11:37 Dose: Not Given Documented by: Insulin Human Lispro (Humalog Kwikpen (Bkc)) 0 unit SC ACHS ON LICENSE OF [facility]; Protocol Last Admin: 02/06/20 13:19 Dose: Not Given Documented by: Levothyroxine Sodium (Synthroid) 150 mcg PO DAILY@0600 ON LICENSE OF [facility] Last Admin: 02/06/20 06:38 Dose: 150 mcg Documented by: Midodrine (Proamatine) 5 mg PO TID ON LICENSE OF [facility] Last Admin: 02/06/20 06:38 Dose: 5 mg Documented by: Morphine Sulfate () 2 mg IV Q3H PRN PRN PRN Reason: Pain Score 6-10/10 Nitroglycerin (Nitrostat) 0.4 mg SUBLINGUAL Q5M PRN PRN Reason: CARDIAC/CHEST PAIN Oxycodone HCl (Oxyir) 5 mg PO Q4H PRN PRN PRN Reason: Pain Score 4-5/10 Prochlorperazine Edisylate (Compazine Iv) 5 mg IV Q4H PRN PRN PRN Reason: Breakthrough Nausea/Vomiting Senna/Docusate Sodium (Senokot-S, [place]-Colace) 2 tablet PO BID PRN PRN PRN Reason: Constipation Sodium Chloride () 10 - 40 ml IV UD PRN PRN Reason: SALINE FLUSH Last Admin: 02/06/20 11:33 Dose: 20 ml Documented by: Throat Lozenges (Cepacol Sore Throat Lozenge) 1 lozenge MUCOUS MEM Q2H PRN PRN PRN Reason: SORE THROAT Assessment/Plan This patient was seen in conjunction with Brianda Soriano TELEGRAPH REPEATER INSTALLER. I have independently interviewed and examined the patient and reviewed pertinent historical, laboratory, and other data. Please refer to her note for patient's presentation, findings, and recommendations. Patient was seen and examined. Denied any new complaints. Discussed with nephrology, patient will be having a tunneled dialysis catheter put in today by general surgery. Vitals were reviewed -stable Physical Exam: Gen: Comfortable, not pale, not jaundiced, alert oriented x3 CVS:HS I +II, regular, no murmurs RESP: Diminished at lung bases GI: BS present and normal, distended, nontender, ascites ++ EXT:No edema Labs reviewed: ASSESSMENT: 1. COURTNEY on CKD stage IV 2. Hyperkalemia 3. Acute on chronic anemia 4. Acute GI bleed 5. Pancytopenia 6. GUEVARA, decompensated with ascites 7. Hypothyroidism 8. Osteoporosis 9. Hypertension 10. Type 2 DM Meds reviewed Plan: Continue on midodrine Off IV albumin Will plan for paracentesis on - patient gets weekly paracentesis Repeat blood work in am Inpatient E&M: [id number] [facility] Hosp L2
--- NOTE | 2020-02-06 10:48 | CASEMGMT ---
Per Dr. Menard, pt will need to be set up with OP dialysis at this time and is set to get a tunnel cath today. Per [facility] website, both [facility] and [facility] at in-network with insurance at this time. This RN CM to room to discuss with pt/nephew and pt states she would like [facility] MWF mid-morning schedule at this time. Pt states that she gets her weekly paracentesis on so MWF would be the best. Pt also states that she will need assistance with transportation and this RN CM advised her that the first time it would be best if family could take her and then dialysis could assist in setting up transportation from there, voices understanding. Referral started thru [facility] portal and faxed at this time. Call to Pee at [facility] to update on pt referral and need for transportation assist at this time, voices understanding. Per Pee, pt will most likely have a MWF chair time between 11a-12p. Pt/nephew updated at this time, voices understanding. CM to follow. Aurora GORDON CM
--- NOTE | 2020-02-06 10:54 | PCM.CONS.GEN ---
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 Lab work shows K6.1, drawn as a routine lab work after paracentesis today. Patient has been feeling generalized weak, shortness of breath on exertion and low energy level for 1 to 2 weeks. No fever, cough or shortness of breath or chest pain. No dizziness, near syncope or syncope. No nausea, vomiting. She denies symptoms of confusion, encephalopathy but has thrombocytopenia secondary to cirrhosis. Other abnormal lab work shows sodium 133, BUN 110, creatinine 3.8, glucose 153, TSH 83.9, free T4 0.95, PTH 877. Vitamin D 25 hydroxy 25. COURTNEY on CKD stage 3 baseline SCr 1.2 mg/dl Urine Na < 10 kidney function is not improving despite volume expansion with IV albumin COURTNEY is likely to HRS-1 Expecting kidney function to continue to worsen with frequent paracentesis and BP fluctuating BUN > 110. SCr is 3.5 mg/d PRODUCT SUPPORT SALES REPRESENTATIVE is indicated Past Medical History Past Medical History (Chronic Problems): Chronic Problems (Last Reviewed 02/06/20 @ 10:[address] 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 Umang Fierro MD) Venous insufficiency (chronic) (peripheral) (Chronic) I87.2 History of breast cancer (Chronic) Z85.3 Ascites (Chronic) R18.8 CKD (chronic kidney disease) stage 4, GFR 15-29 ml/min (Chronic) N18.4 TIA (transient ischemic attack) (Chronic) DM2 (diabetes mellitus, type 2) (Chronic) E11.9 Benign essential HTN (Chronic) I10 Hypothyroid E03.9 Hypothyroid E03.9 Allergies clarithromycin [From Biaxin] Allergy (Verified 02/01/20 15:16) Unknown iodine Allergy (Verified 02/01/20 15:16) Unknown Home Medications: Ambulatory Orders Medication Instructions Recorded Furosemide [Lasix] 40 mg PO QODAY 01/22/18 Alendronate Sodium [Fosamax] 70 mg PO FR 11/23/19 Insulin Glargine,Hum.rec.anlog 36 unit SQ BID 11/23/19 [Lantus Solostar] Atenolol [Tenormin (beta stuart)] 50 mg PO DAILY #0 11/25/19 Cholecalciferol (Vitamin D3) 50,000 unit PO FR 02/01/20 [D3-50] Levothyroxine [Synthroid] 100 mcg PO DAILY@0600 02/01/20 Pantoprazole Sodium [Protonix] 40 mg PO BID 02/01/20 Surgical History: Surgical History (Last Reviewed 02/06/20 @ 10:[address] Umang Fierro MD) History of appendectomy Z90.49 History of cataract extraction Z98.49 History of colonoscopy Z98.890 History of extraction of renal calculus Z98.890, Z87.442 History of right mastectomy Z90.11 history port insertion Surgical History: mastectomy, - - Patient has had a right mastectomy and appendectomy. She is a Ab0. Right IJ Port-A-Cath Psychiatric History: No pertinent psych hx ED CASE MANAGER History: No pertinent ED CASE MANAGER history Smoking Status: Never smoker - *Family History Sibling Family History: Family History (Last Reviewed 01/04/20 @ 10:[address] Prem Barnes MD) Father CHF (congestive heart failure) Heart disease Mother CVA (cerebral vascular accident) History Items: Cancer Review of Systems Constitutional: Denies: Chills, Fever, Weight Change Cardiovascular: Denies: Chest Pain, Chest Pressure, Chest Tightness, Palpitations Respiratory: Denies: Cough, Hemoptysis, Shortness of breath at rest, Shortness of breath upon exertion, Wheezing Gastrointestinal: Denies: Abdominal Pain, Constipation, Diarrhea, Hematemesis, Nausea, Melena, Vomiting Patient Problems: Active and Suspected Problems (Last Reviewed 02/06/20 @ 10:[address] Umang Fierro MD) Hyperkalemia (Acute) Hypothyroidism (Acute) Hyperglycemia (Acute) Anemia (Acute) Acute kidney injury on CKD stage IV (Acute) Vascular catheter fitting or adjustment (Acute) - Physical Exam Vitals/I&O's: Vital Signs Temp Pulse Resp BP Pulse Ox 99.4 F H 71 16 109/50 L 98 02/06/20 09:00 02/06/20 09:00 02/06/20 09:00 02/06/20 09:00 02/06/20 09:00 Oxygen Delivery Method Room Air Weight: 176 lb 12.972 oz Body Mass Index (BMI) 29.5 Finger Stick Blood Glucose 406 Intake and Output for Last 24 Hours 02/04/20 02/05/20 02/06/20 23:59 23:59 23:59 Intake Total 955 / 1075 1460 / 1460 225.5 / 225.5 Output Total 550 / 550 250 / 250 Balance 955 / 1075 910 / 910 -24.5 / -24.5 General: Alert, Oriented x3 Neck: Supple, No JVD Lungs: Clear to auscultation Cardiovascular: Regular rate, Regular Rhythm, No murmurs Abdomen: Bowel Sounds Present, Soft, Non Tender, Non-Distended Laboratory Results 02/03/20 06:07: Diff Path Review Reviewed 02/04/20 05:05: Diff Path Review Reviewed 02/05/20 11:37: POC Glucose 192 H 02/05/20 16:21: POC Glucose 136 H 02/05/20 21:55: POC Glucose 189 H 02/06/20 05:40: WBC 2.6 L, RBC 2.74 L, Hgb 8.2 L, Hct 24.8 L, MCV 90.5, MCH 29.9, MCHC 33.1, RDW Std Deviation 70.2 H, RDW Coeff of Mary Alice 21.2 H, Plt Count 53 L, MPV 10.2, Differential Comment SCANNED 02/06/20 05:40: Sodium 143, Potassium 3.7, Chloride 113 H, Carbon Dioxide 22.0, Anion Gap 8, BUN 115 H*, Creatinine 3.56 H, Estim Creat Clear Calc 11.13, Est GFR (MDRD) Af Amer 16 L, Est GFR (MDRD) Non-Af 13 L, BUN/Creatinine Ratio 32.3 H, Glucose 173 H, Calcium 9.1 02/06/20 06:36: POC Glucose 170 H 02/06/20 09:02: POC Glucose 251 H Current Medications Acetaminophen (Tylenol) 650 mg PO Q6H PRN PRN PRN Reason: Pain Score 1-10/Temp > 100.7 F Albuterol Sulfate (Ventolin Aerosols) 2.5 mg INHALATION Q2H PRN PRN PRN Reason: SOB/Wheezing Atenolol (Tenormin (Beta Stuart)) 50 mg PO DAILY [facility] Last Admin: 02/05/20 10:15 Dose: Not Given Documented by: Dextrose (D50w Syringe) 0 gm IV X1 PRN; Protocol PRN Reason: Hypoglycemia Ergocalciferol (Vitamin D) 50,000 unit PO FR [facility] Last Admin: 02/02/20 08:55 Dose: 50,000 unit Documented by: Glucagon () 1 mg IM .X1 PRN PRN Reason: Hypoglycemia Guaifenesin (Robitussin) 20 ml PO Q4H PRN PRN PRN Reason: COUGH Hydralazine HCl (Apresoline Iv) 10 mg IV Q4H PRN PRN PRN Reason: SBP > 160 Sodium Chloride () 500 mls @ 15 mls/hr IV PRN PRN PRN Reason: Blood Transfusion Last Infusion: 02/06/20 00:01 Dose: 0 mls/hr Documented by: Sodium Chloride () 250 mls @ 15 mls/hr IV .[id number] PRN PRN Reason: Saline Flush Sodium Chloride () 250 mls @ 15 mls/hr IV .[id number] PRN PRN Reason: Additional IVPB Infusion Pantoprazole Sodium 40 mg/ (Sodium Chloride) 110 mls @ 330 mls/hr IV Q12 [facility] Last Infusion: 02/05/20 22:19 Dose: Infused Documented by: Insulin Glargine (Lantus (Bkc)) 36 units SC BID [facility] Last Admin: 02/05/20 21:59 Dose: 36 units Documented by: Insulin Human Lispro (Humalog Kwikpen (Bk)) 5 unit SC TIDAC [facility] Last Admin: 02/06/20 09:04 Dose: 5 units Documented by: Insulin Human Lispro (Humalog Kwikpen (Bkc)) 0 unit SC ACHS [facility]; Protocol Last Admin: 02/06/20 09:04 Dose: 6 u Documented by: Levothyroxine Sodium (Synthroid) 150 mcg PO DAILY@0600 [facility] Last Admin: 02/06/20 06:38 Dose: 150 mcg Documented by: Midodrine (Proamatine) 5 mg PO TID [facility] Last Admin: 02/06/20 06:38 Dose: 5 mg Documented by: Morphine Sulfate () 2 mg IV Q3H PRN PRN PRN Reason: Pain Score 6-10/10 Nitroglycerin (Nitrostat) 0.4 mg SUBLINGUAL Q5M PRN PRN Reason: CARDIAC/CHEST PAIN Oxycodone HCl (Oxyir) 5 mg PO Q4H PRN PRN PRN Reason: Pain Score 4-5/10 Prochlorperazine Edisylate (Compazine Iv) 5 mg IV Q4H PRN PRN PRN Reason: Breakthrough Nausea/Vomiting Senna/Docusate Sodium (Senokot-S, [place]-Colace) 2 tablet PO BID PRN PRN PRN Reason: Constipation Sodium Chloride () 10 - 40 ml IV UD PRN PRN Reason: SALINE FLUSH Last Admin: 02/06/20 09:11 Dose: 10 ml Documented by: Throat Lozenges (Cepacol Sore Throat Lozenge) 1 lozenge MUCOUS MEM Q2H PRN PRN PRN Reason: SORE THROAT Assessment/Plan All Active Problems (Last Reviewed 02/06/20 @ 10:[address] Umang Fierro MD) Hyperkalemia (Acute) Hypothyroidism (Acute) Hyperglycemia (Acute) Anemia (Acute) Acute kidney injury on CKD stage IV (Acute) Vascular catheter fitting or adjustment (Acute) Plan will be to perform a left IJ dialysis catheter placement. Risk benefits to include bleeding infection possible pneumothorax were reviewed with the patient the patient agrees to proceed. All questions asked were answered. She was explained this procedure in simple terms so that she would understand what to expect. I am known this patient in the past and have actually placed her right IJ PowerPort. Procedure Criteria Procedure Type: Elective COVID Risk Discussion: The surgeon/proceduralist and patient have discussed in detail the risk of exposure to and/or potential harm posed by the COVID-19 virus with having a surgery/procedure at this time versus the risk of delaying the surgery/procedure. It is not possible to know either the risk of delaying the surgery or procedure or chance of getting an infection with perfect accuracy, but a joint decision was made between the patient and the surgeon/proceduralist to proceed at this time with the scheduled surgery/procedure as indicated on the consent form. Office Visits / Consults: [id number] IP Consult L3 - Modifier 57
[2020-02-06 12:01] LABS: Bedside Glucose 215 mg/dL (70-110)
[2020-02-06] MEDS: Cefazolin 2 GM in 0.9% Normal Saline 100 ML IV (14:45)
[2020-02-06] MEDS: Bupivacaine Mpf 0.5% 30 ML VIAL (14:57)
[2020-02-06] MEDS: Heparin 10,000 UNITS/10 ML Vial 10000 UNITS (15:20)
--- NOTE | 2020-02-06 15:24 | OP.PCM_ITS ---
Problem List (1) Acute kidney injury on CKD stage IV Status: Acute (2) Vascular catheter fitting or adjustment Status: Acute Report of Operation Date of Procedure: 02/06/20 Pre-Operative Diagnosis: Vascular fitting and adjustment. Acute kidney failure Post-Operative Diagnosis: Same Surgery/Procedure Performed:: Placement of a left IJ 23 cm palindrome dialysis catheter Type of Anesthesia:: Local MAC Anesthesiologist: Jose Calvin Estimated Blood Loss (mL): 25 cc Description of Procedure: Patient was brought into the operating room. Placed in the supine position. Under excellent MAC anesthetic head was placed in the downward position ultrasound was used to identify the internal jugular vein the neck was appropriately marked. The neck and chest were then sterilely prepped and draped in usual fashion. Local was injected into the neck Seldinger's technique was used to gain access to the internal jugular vein. Guidewire was placed over the needle the needle was removed fluoroscopy was used to confirm proper placement. I injected local into the chest I marked the chest appropriately and so that the loop would bend and go down into the internal jugular vein skin sayda was made in the neck skin sayda was made in the chest I tunneled the palindrome catheter up from the chest into the neck. Sequential dilators were then used over the guidewire. Finally a dilator and sheath were placed over the guidewire and the dilator and guidewire removed. Palindrome catheter was placed in the sheath the sheath was removed. The palindrome did not 1 to make the bend down into the superior vena cava I had to place a Glidewire into the palindrome catheter to a id in my placement of it eventually I did get it to go down. Once this was completed I flushed and irrigated the catheter with 2 cc of Hepflush. Incision in the neck was closed with 2 interrupted sutures of 3-0 Vicryl skin incision on the chest was closed with a 3-0 Vicryl. The catheter itself was sutured into the skin with a 3-0 nylon. Sterile dressings were applied and the patient tolerated the procedure well. Postoperative chest x-ray was ordered - Admit VTE Documentation VTE Present on Admission: No VTE Mechan Device Prophylaxis: SCD's VTE Pharm Prophylaxis ordered?: No Reason prophylaxis not ordered:: Treatment Not Indicated - Procedures Cardiovascular CF Procedures [id number]: [id number] Intro cath dialysis circuit
--- NOTE | 2020-02-06 15:43 | RAD_ITS ---
STUDY: X-RAY CHEST REASON FOR EXAM: Female, 74 years old. post dialysis cath placement TECHNIQUE: Single AP portable view of the chest. COMPARISON: None. FINDINGS: A Mediport is seen on the right-sided, its tip is at the cavoatrial junction. There is an ill-defined opacity in the medial aspect of the right lung apex may represent pneumonia or lung mass. Further evaluation by CT scan would be helpful. There is no demonstrated pleural abnormality. Normal size heart. Normal mediastinum and owen. Normal visualized pulmonary arteries. Normal visualized aortic arch and descending thoracic aorta. Normal visualized thoracic spine. Normal visualized ribs, clavicles, and shoulders. There is no demonstrated abnormality of the visualized soft tissue structures of the upper abdomen. RAD/Chest 1 View (Portable) IMPRESSION: There is an ill-defined opacity in the medial aspect of the right lung apex may represent pneumonia or lung mass. Further evaluation by CT scan would be helpful. MediPort is in good position. Electronically Signed: Samra Martinez, at 16:11 EDT Tel , Service support ,
[2020-02-06 16:46] LABS: Bedside Glucose 152 mg/dL (70-110)
[2020-02-06] MEDS: Acetaminophen 325 MG Tablet 650 MG PO (22:52)
[2020-02-06 23:15] LABS: Bedside Glucose 163 mg/dL (70-110)
[2020-02-07] VITALS (14 sets, daily range): BP systolic 82–101; BP diastolic 32–56; PULSE 56–69; RESP 16–18; TEMP 36.7–36.9; O2SAT 93–96
[2020-02-07] MEDS: 0.9% Saline Lock 10 ML Syringe IV ×4 (00:05→22:28)
[2020-02-07] MEDS: Midodrine HCl 5 MG Tablet 10 MG PO ×2 (02:16→09:57)
[2020-02-07] MEDS: Midodrine HCl 5 MG Tablet PO ×3 (05:47→22:28)
[2020-02-07] MEDS: Levothyroxine 150 MCG Tablet PO (05:47)
[2020-02-07 06:21] LABS: Hematocrit 25.2 % (37-47); Hemoglobin 8.1 g/dL (12.0-15.0); Mean Corp Hgb Conc 32.1 g/dL (32-36); Mean Corpuscular Hgb 30.1 pg (27.0-32.0); Mean Corpuscular Volume 93.7 fL (81-99); Mean Platelet Vol. 10.2 fl (6.2-12.0); POSITIVE COUNT YES; POSITIVE MORPHOLOGY YES; Platelet Count 58 K/mm3 (150-450); RBC Distribution Width CV 20.8 % (11.6-14.6); RBC Distribution Width SD 71.2 fl (35.1-43.9); Red Blood Count 2.69 M/mm3 (4.2-5.4); White Blood Count 3.2 K/mm3 (4.4-11.0)
[2020-02-07 06:44] LABS: Scan Indicated on CBC? Y/N YES- FLAGS NOTED
[2020-02-07 06:46] LABS: Anion Gap 8 (5-15); BUN 119 mg/dL (7-18); BUN/Creat Ratio 31.8 RATIO (10-20); Calcium,Total 9.1 mg/dL (8.5-10.1); Chloride 113 mmol/L (98-107); Creatinine, Serum 3.74 mg/dL (0.55-1.02); EST Glomerular Filtration Rate 13 mL/min (>60); Est Glom Filt Rate - Afr Amer 15 mL/min (>60); Glucose 116 mg/dL (74-106); Potassium 3.9 mmol/L (3.5-5.1); Sodium Level 142 mmol/L (136-145)
[2020-02-07 07:01] LABS: Differential Comment SCANNED
[2020-02-07] MEDS: Insulin Lispro 100 UNIT/ML INSULN.PEN SC ×4 (07:44→16:48)
[2020-02-07 07:56] LABS: Bedside Glucose 111 mg/dL (70-110)
--- NOTE | 2020-02-07 08:54 | PCM.PN.REN ---
Patient Problems: Active and Suspected Problems (Last Reviewed 02/06/20 @ 10:[address] Umang Fierro MD) Hyperkalemia (Acute) Hypothyroidism (Acute) Hyperglycemia (Acute) Anemia (Acute) Acute kidney injury on CKD stage IV (Acute) Vascular catheter fitting or adjustment (Acute) Subjective: doing Ok. had tunneled cath placed yesterday. little pain at the tunneled cath insertion site low BP. non dizziness - Physical Exam Vitals/I&O's: Vital Signs Temp Pulse Resp BP Pulse Ox 98.2 F 56 L 18 101/38 L 96 02/07/20 04:33 02/07/20 06:47 02/07/20 04:33 02/07/20 04:33 02/07/20 04:33 Oxygen Delivery Method Room Air Weight: 81.6 kg Body Mass Index (BMI) 29.5 Finger Stick Blood Glucose 406 Intake and Output for Last 24 Hours 02/05/20 02/06/20 02/07/20 23:59 23:59 23:59 Intake Total 1460 / 1460 1375.5 / 1375.5 30 / 30 Output Total 550 / 550 450 / 450 150 / 150 Balance 910 / 910 925.5 / 925.5 -120 / -120 General: Alert, Oriented x3 Oral: Moist Mucosa Neck: Supple, No JVD Lungs: Clear to auscultation, Normal air movement, No rhonchi, No wheeze Cardiovascular: Regular rate, Regular Rhythm, Normal S1, Normal S2 Abdomen: Bowel Sounds Present, Soft, Non Tender, Non-Distended Extremities: No clubbing, No cyanosis, Edema Skin: No rashes Musculoskeletal: No Tenderness to Palpation of Joints or Extremities Lymphatic: No Cervical, Supraclavicular, or Inguinal Adenopathy Neurological: Cranial nerves II-XII grossly intact, Neuro grossly intact Psych/Mental Status: Appropriate Laboratory Results 02/06/20 09:02: POC Glucose 251 H 02/06/20 11:36: POC Glucose 215 H 02/06/20 16:35: POC Glucose 152 H 02/06/20 22:36: POC Glucose 163 H 02/07/20 06:00: WBC 3.2 L, RBC 2.69 L, Hgb 8.1 L, Hct 25.2 L, MCV 93.7, MCH 30.1, MCHC 32.1, RDW Std Deviation 71.2 H, RDW Coeff of Mary Alice 20.8 H, Plt Count 58 L, MPV 10.2, Differential Comment SCANNED 02/07/20 06:00: Sodium 142, Potassium 3.9, Chloride 113 H, Carbon Dioxide 21.0, Anion Gap 8, BUN 119 H*, Creatinine 3.74 H, Estim Creat Clear Calc 10.60, Est GFR (MDRD) Af Amer 15 L, Est GFR (MDRD) Non-Af 13 L, BUN/Creatinine Ratio 31.8 H, Glucose 116 H, Calcium 9.1 02/07/20 07:38: POC Glucose 111 H Current Medications Acetaminophen (Tylenol) 650 mg PO Q6H PRN PRN PRN Reason: Pain Score 1-10/Temp > 100.7 F Last Admin: 02/06/20 22:52 Dose: 650 mg Documented by: Albuterol Sulfate (Ventolin Aerosols) 2.5 mg INHALATION Q2H PRN PRN PRN Reason: SOB/Wheezing Atenolol (Tenormin (Beta Stuart)) 50 mg PO DAILY [facility] Last Admin: 02/06/20 11:37 Dose: Not Given Documented by: Dextrose (D50w Syringe) 0 gm IV X1 PRN; Protocol PRN Reason: Hypoglycemia Ergocalciferol (Vitamin D) 50,000 unit PO FR [facility] Last Admin: 02/02/20 08:55 Dose: 50,000 unit Documented by: Glucagon () 1 mg IM .X1 PRN PRN Reason: Hypoglycemia Guaifenesin (Robitussin) 20 ml PO Q4H PRN PRN PRN Reason: COUGH Hydralazine HCl (Apresoline Iv) 10 mg IV Q4H PRN PRN PRN Reason: SBP > 160 Sodium Chloride () 500 mls @ 15 mls/hr IV PRN PRN PRN Reason: Blood Transfusion Last Infusion: 02/06/20 22:22 Dose: Infused Documented by: Sodium Chloride () 250 mls @ 15 mls/hr IV .[id number] PRN PRN Reason: Saline Flush Sodium Chloride () 250 mls @ 15 mls/hr IV .[id number] PRN PRN Reason: Additional IVPB Infusion Pantoprazole Sodium 40 mg/ (Sodium Chloride) 110 mls @ 330 mls/hr IV Q12 [facility] Last Infusion: 02/06/20 23:02 Dose: Infused Documented by: Insulin Glargine (Lantus (Bk)) 36 units SC BID [facility] Last Admin: 02/06/20 22:49 Dose: 36 units Documented by: Insulin Human Lispro (Humalog Kwikpen (Bkc)) 5 unit SC TIDAC [facility] Last Admin: 02/07/20 07:44 Dose: 5 units Documented by: Insulin Human Lispro (Humalog Kwikpen (Bk)) 0 unit SC ACHS [facility]; Protocol Last Admin: 02/07/20 07:46 Dose: Not Given Documented by: Levothyroxine Sodium (Synthroid) 150 mcg PO DAILY@0600 [facility] Last Admin: 02/07/20 05:47 Dose: 150 mcg Documented by: Midodrine (Proamatine) 5 mg PO TID [facility] Last Admin: 02/07/20 05:47 Dose: 5 mg Documented by: Morphine Sulfate () 2 mg IV Q3H PRN PRN PRN Reason: Pain Score 6-10/10 Nitroglycerin (Nitrostat) 0.4 mg SUBLINGUAL Q5M PRN PRN Reason: CARDIAC/CHEST PAIN Oxycodone HCl (Oxyir) 5 mg PO Q4H PRN PRN PRN Reason: Pain Score 4-5/10 Prochlorperazine Edisylate (Compazine Iv) 5 mg IV Q4H PRN PRN PRN Reason: Breakthrough Nausea/Vomiting Senna/Docusate Sodium (Senokot-S, [place]-Colace) 2 tablet PO BID PRN PRN PRN Reason: Constipation Sodium Chloride () 10 - 40 ml IV UD PRN PRN Reason: SALINE FLUSH Last Admin: 02/07/20 06:08 Dose: 30 ml Documented by: Throat Lozenges (Cepacol Sore Throat Lozenge) 1 lozenge MUCOUS MEM Q2H PRN PRN PRN Reason: SORE THROAT Medical Necessity - Tobacco Use Smoking Status: Never smoker Assessment/Plan All Active Problems (Last Reviewed 02/06/20 @ 10:[address] Umang Fierro MD) Hyperkalemia (Acute) Hypothyroidism (Acute) Hyperglycemia (Acute) Anemia (Acute) Acute kidney injury on CKD stage IV (Acute) Vascular catheter fitting or adjustment (Acute) 1- COURTNEY on CKD stage 3 baseline SCr 1.2 mg/dl Urine Na < 10 kidney function didn't improve with volume expansion COURTNEY is likely to HRS-1 Expecting kidney function to continue to worsen with frequent paracentesis and BP fluctuating BUN 120 this am. SCr is 3.79 mg/d DISTRICT AGENT is indicated HD access left IJ TC Pt was seen during HD session today : BQ 250 DQ 600 U 0.5 L Will give midodrine extra dose and try 1L UF 2- hyperkalemia from COURTNEY resolved with medical treatment 3- GUEVARA as per the primary service 4- GI bleed. s/p RBC transfusion 02/03. on PPI IV Stable h and H Will continue to follow Please call if any question Alesia Menard MD
[2020-02-07 10:11] LABS: Bedside Glucose 189 mg/dL (70-110)
--- NOTE | 2020-02-07 10:22 | CASEMGMT ---
Addendum entered by Thelma Sommers 02/07/20 14:16: Hep B back and non-reactive, [facility] time. Aurora GORDON CM Original Note: Tunnel cath op notes and post CXR faxed to [facility] admissions and [facility] at this time. Aurora GORDON CM
--- NOTE | 2020-02-07 10:40 | PCM.PROGNOTE ---
<Brianda Soriano - Last Filed: 02/07/20 10:49> Patient Problems: Active and Suspected Problems (Last Reviewed 02/06/20 @ 10:[address] Umang Fierro MD) Hyperkalemia (Acute) Hypothyroidism (Acute) Hyperglycemia (Acute) Anemia (Acute) Acute kidney injury on CKD stage IV (Acute) Vascular catheter fitting or adjustment (Acute) Subjective: Patient seen and examined. Undergoing first dialysis treatment. States she feels tired. Denies dizziness, lightheadedness. Denies other complaints. - Physical Exam Vitals/I&O's: Vital Signs Temp Pulse Resp BP Pulse Ox 98.3 F 62 18 90/47 L 95 02/07/20 09:30 02/07/20 09:30 02/07/20 09:30 02/07/20 09:30 02/07/20 09:30 Oxygen Delivery Method Room Air Weight: 179 lb 14.355 oz Body Mass Index (BMI) 29.5 Finger Stick Blood Glucose 406 Intake and Output for Last 24 Hours 02/05/20 02/06/20 02/07/20 23:59 23:59 23:59 Intake Total 1460 / 1460 1375.5 / 1375.5 140 / 140 Output Total 550 / 550 450 / 450 150 / 150 Balance 910 / 910 925.5 / 925.5 -10 / -10 General: Alert, Oriented x3, Cooperative HEENT: Atraumatic, PERRLA, EOMI, Normocephalic Neck: Supple, No JVD, Negative Carotid Bruits Lungs: Clear to auscultation, Normal air movement Cardiovascular: Regular rate, No murmurs Abdomen: Bowel Sounds Present, Soft, Non Tender, Non-Distended, Obese Extremities: No clubbing, No cyanosis, Capillary Refill Less than 3 Seconds, Edema - Bilateral lower extremities, nonpitting Skin: No rashes, No breakdown Musculoskeletal: No Tenderness to Palpation of Joints or Extremities Neurological: Cranial nerves II-XII grossly intact, Neuro grossly intact Psych/Mental Status: Normal Affect, Appropriate Laboratory Results 02/06/20 11:36: POC Glucose 215 H 02/06/20 16:35: POC Glucose 152 H 02/06/20 22:36: POC Glucose 163 H 02/07/20 06:00: WBC 3.2 L, RBC 2.69 L, Hgb 8.1 L, Hct 25.2 L, MCV 93.7, MCH 30.1, MCHC 32.1, RDW Std Deviation 71.2 H, RDW Coeff of Mary Alice 20.8 H, Plt Count 58 L, MPV 10.2, Differential Comment SCANNED 02/07/20 06:00: Sodium 142, Potassium 3.9, Chloride 113 H, Carbon Dioxide 21.0, Anion Gap 8, BUN 119 H*, Creatinine 3.74 H, Estim Creat Clear Calc 10.60, Est GFR (MDRD) Af Amer 15 L, Est GFR (MDRD) Non-Af 13 L, BUN/Creatinine Ratio 31.8 H, Glucose 116 H, Calcium 9.1 02/07/20 07:38: POC Glucose 111 H 02/07/20 10:00: Hep Bs Antigen Pending, Hep Bs Antibody Pending 02/07/20 10:02: POC Glucose 189 H Current Medications Acetaminophen (Tylenol) 650 mg PO Q6H PRN PRN PRN Reason: Pain Score 1-10/Temp > 100.7 F Last Admin: 02/06/20 22:52 Dose: 650 mg Documented by: Albuterol Sulfate (Ventolin Aerosols) 2.5 mg INHALATION Q2H PRN PRN PRN Reason: SOB/Wheezing Atenolol (Tenormin (Beta Stuart)) 50 mg PO DAILY [facility] Last Admin: 02/06/20 11:37 Dose: Not Given Documented by: Dextrose (D50w Syringe) 0 gm IV X1 PRN; Protocol PRN Reason: Hypoglycemia Ergocalciferol (Vitamin D) 50,000 unit PO [facility] Last Admin: 02/02/20 08:55 Dose: 50,000 unit Documented by: Glucagon () 1 mg IM .X1 PRN PRN Reason: Hypoglycemia Guaifenesin (Robitussin) 20 ml PO Q4H PRN PRN PRN Reason: COUGH Hydralazine HCl (Apresoline Iv) 10 mg IV Q4H PRN PRN PRN Reason: SBP > 160 Sodium Chloride () 500 mls @ 15 mls/hr IV PRN PRN PRN Reason: Blood Transfusion Last Infusion: 02/06/20 22:22 Dose: Infused Documented by: Sodium Chloride () 250 mls @ 15 mls/hr IV .[id number] PRN PRN Reason: Saline Flush Sodium Chloride () 250 mls @ 15 mls/hr IV .[id number] PRN PRN Reason: Additional IVPB Infusion Pantoprazole Sodium 40 mg/ (Sodium Chloride) 110 mls @ 330 mls/hr IV Q12 [facility] Last Infusion: 02/07/20 10:29 Dose: Infused Documented by: Insulin Glargine (Lantus (Bkc)) 36 units SC BID [facility] Last Admin: 02/07/20 10:04 Dose: 36 units Documented by: Insulin Human Lispro (Humalog Kwikpen (Bk)) 5 unit SC TIDAC [facility] Last Admin: 02/07/20 07:44 Dose: 5 units Documented by: Insulin Human Lispro (Humalog Kwikpen (Bk)) 0 unit SC ACHS [facility]; Protocol Last Admin: 02/07/20 07:46 Dose: Not Given Documented by: Levothyroxine Sodium (Synthroid) 150 mcg PO DAILY@0600 [facility] Last Admin: 02/07/20 05:47 Dose: 150 mcg Documented by: Midodrine (Proamatine) 5 mg PO TID [facility] Last Admin: 02/07/20 05:47 Dose: 5 mg Documented by: Morphine Sulfate () 2 mg IV Q3H PRN PRN PRN Reason: Pain Score 6-10/10 Nitroglycerin (Nitrostat) 0.4 mg SUBLINGUAL Q5M PRN PRN Reason: CARDIAC/CHEST PAIN Oxycodone HCl (Oxyir) 5 mg PO Q4H PRN PRN PRN Reason: Pain Score 4-5/10 Prochlorperazine Edisylate (Compazine Iv) 5 mg IV Q4H PRN PRN PRN Reason: Breakthrough Nausea/Vomiting Senna/Docusate Sodium (Senokot-S, [place]-Colace) 2 tablet PO BID PRN PRN PRN Reason: Constipation Sodium Chloride () 10 - 40 ml IV UD PRN PRN Reason: SALINE FLUSH Last Admin: 02/07/20 10:07 Dose: 10 ml Documented by: Throat Lozenges (Cepacol Sore Throat Lozenge) 1 lozenge MUCOUS MEM Q2H PRN PRN PRN Reason: SORE THROAT Medical Necessity - Tobacco Use Smoking Status: Never smoker Assessment/Plan All Active Problems (Last Reviewed 02/06/20 @ 10:[address] Umang Fierro MD) Hyperkalemia (Acute) Hypothyroidism (Acute) Hyperglycemia (Acute) Anemia (Acute) Acute kidney injury on CKD stage IV (Acute) Vascular catheter fitting or adjustment (Acute) 1. Acute kidney injury on chronic kidney disease stage IV- follows with Dr. Max. Nephrology consulted. Suspect HRS. Placed on midodrine for hypotension. Lasix discontinued. Tunneled dialysis catheter placed 02/05. First dialysis treatment today. 2. Hyperkalemia, secondary to #1-resolved following Kayexalate. 3. Pancytopenia/acute blood loss anemia on chronic anemia- Recent transfer to [facility] for upper GI bleed status post EGD with argon plasma coagulation therapy for gastric antral vascular ectasia. She underwent upper endoscopy 01/09 which showed stomach vascular ectasia. Repeat upper endoscopy 01/10 for laser treatment. Status post 4 units PRBC and 1 unit platelet. IV PPI. Trend H&H. If hemoglobin becomes unstable, consider transfer back to [facility] for further evaluation and treatment. At this time, hemoglobin stable. Patient will need outpatient follow-up with GI. 4. GUEVARA- undergoes weekly paracentesis. Follows with Dr. Allen. 5. Severe hypothyroidism-TSH 71 which is improved from prior. Synthroid increased to 150 mcg daily. Following with endocrinology as outpatient. 6. Osteoporosis-on Fosamax. 7. Type 2 diabetes sbplizll-Pofw-Yiigl with sliding scale insulin. Continue home insulin regimen. 8. Hypertension-on atenolol. Hold for systolic blood pressure less than 100. 9. History of breast cancer-in remission. DVT prophylaxis-SCDs, pharmacologic prophylaxis contraindicated This patient was seen by CHRISTAL Wei under the supervision of Dr. Giron. <Luiza Giron - Last Filed: 02/07/20 14:37> - Physical Exam Vitals/I&O's: Vital Signs Temp Pulse Resp BP Pulse Ox 98.5 F 62 18 85/49 L 95 02/07/20 14:01 02/07/20 14:01 02/07/20 14:01 02/07/20 14:01 02/07/20 14:01 Oxygen Delivery Method Room Air Weight: 81.6 kg Body Mass Index (BMI) 29.5 Finger Stick Blood Glucose 406 Intake and Output for Last 24 Hours 02/05/20 02/06/20 02/07/20 23:59 23:59 23:59 Intake Total 1460 / 1460 1375.5 / 1375.5 360 / 360 Output Total 550 / 550 450 / 450 151 / 151 Balance 910 / 910 925.5 / 925.5 209 / 209 Laboratory Results 02/06/20 16:35: POC Glucose 152 H 02/06/20 22:36: POC Glucose 163 H 02/07/20 06:00: WBC 3.2 L, RBC 2.69 L, Hgb 8.1 L, Hct 25.2 L, MCV 93.7, MCH 30.1, MCHC 32.1, RDW Std Deviation 71.2 H, RDW Coeff of Mary Alice 20.8 H, Plt Count 58 L, MPV 10.2, Differential Comment SCANNED 02/07/20 06:00: Sodium 142, Potassium 3.9, Chloride 113 H, Carbon Dioxide 21.0, Anion Gap 8, BUN 119 H*, Creatinine 3.74 H, Estim Creat Clear Calc 10.60, Est GFR (MDRD) Af Amer 15 L, Est GFR (MDRD) Non-Af 13 L, BUN/Creatinine Ratio 31.8 H, Glucose 116 H, Calcium 9.1 02/07/20 07:38: POC Glucose 111 H 02/07/20 10:00: Hep Bs Antigen Non-Reactive, Hep Bs Antibody Non-Reactive 02/07/20 10:02: POC Glucose 189 H 02/07/20 10:57: POC Glucose 150 H Current Medications Acetaminophen (Tylenol) 650 mg PO Q6H PRN PRN PRN Reason: Pain Score 1-10/Temp > 100.7 F Last Admin: 02/06/20 22:52 Dose: 650 mg Documented by: Albuterol Sulfate (Ventolin Aerosols) 2.5 mg INHALATION Q2H PRN PRN PRN Reason: SOB/Wheezing Dextrose (D50w Syringe) 0 gm IV X1 PRN; Protocol PRN Reason: Hypoglycemia Ergocalciferol (Vitamin D) 50,000 unit PO [facility] Last Admin: 02/02/20 08:55 Dose: 50,000 unit Documented by: Glucagon () 1 mg IM .X1 PRN PRN Reason: Hypoglycemia Guaifenesin (Robitussin) 20 ml PO Q4H PRN PRN PRN Reason: COUGH Hydralazine HCl (Apresoline Iv) 10 mg IV Q4H PRN PRN PRN Reason: SBP > 160 Sodium Chloride () 500 mls @ 15 mls/hr IV PRN PRN PRN Reason: Blood Transfusion Last Infusion: 02/06/20 22:22 Dose: Infused Documented by: Sodium Chloride () 250 mls @ 15 mls/hr IV .[id number] PRN PRN Reason: Saline Flush Sodium Chloride () 250 mls @ 15 mls/hr IV .[id number] PRN PRN Reason: Additional IVPB Infusion Pantoprazole Sodium 40 mg/ (Sodium Chloride) 110 mls @ 330 mls/hr IV Q12 [facility] Last Infusion: 02/07/20 10:29 Dose: Infused Documented by: Albumin Human () 25 gm in 100 mls @ 60 mls/hr IV Q8H [facility] Stop: 02/09/20 03:39 Insulin Glargine (Lantus (Bkc)) 36 units SC BID [facility] Last Admin: 02/07/20 10:04 Dose: 36 units Documented by: Insulin Human Lispro (Humalog Kwikpen (Bkc)) 5 unit SC TIDAC [facility] Last Admin: 02/07/20 11:00 Dose: 5 units Documented by: Insulin Human Lispro (Humalog Kwikpen (Bkc)) 0 unit SC ACHS [facility]; Protocol Last Admin: 02/07/20 11:00 Dose: 3 u Documented by: Levothyroxine Sodium (Synthroid) 150 mcg PO DAILY@0600 [facility] Last Admin: 02/07/20 05:47 Dose: 150 mcg Documented by: Midodrine (Proamatine) 5 mg PO TID [facility] Last Admin: 02/07/20 13:55 Dose: 5 mg Documented by: Morphine Sulfate () 2 mg IV Q3H PRN PRN PRN Reason: Pain Score 6-10/10 Nitroglycerin (Nitrostat) 0.4 mg SUBLINGUAL Q5M PRN PRN Reason: CARDIAC/CHEST PAIN Oxycodone HCl (Oxyir) 5 mg PO Q4H PRN PRN PRN Reason: Pain Score 4-5/10 Prochlorperazine Edisylate (Compazine Iv) 5 mg IV Q4H PRN PRN PRN Reason: Breakthrough Nausea/Vomiting Senna/Docusate Sodium (Senokot-S, [place]-Colace) 2 tablet PO BID PRN PRN PRN Reason: Constipation Sodium Chloride () 10 - 40 ml IV UD PRN PRN Reason: SALINE FLUSH Last Admin: 02/07/20 10:07 Dose: 10 ml Documented by: Throat Lozenges (Cepacol Sore Throat Lozenge) 1 lozenge MUCOUS MEM Q2H PRN PRN PRN Reason: SORE THROAT Assessment/Plan This patient was seen in conjunction with Brianda Soriano [employer]PER[employer]. I have independently interviewed and examined the patient and reviewed pertinent historical, laboratory, and other data. Please refer to her note for patient's presentation, findings, and recommendations. Patient was seen and examined. She feels tired. Seen having her first dialysis session. Denies any fever chills or chest pain. Vitals were reviewed -stable Physical Exam: Gen: Comfortable, not pale, not jaundiced, alert oriented x3 CVS:HS I +II, regular, no murmurs RESP: Diminished at lung bases GI: BS present and normal, distended, nontender, ascites ++ EXT:No edema Labs reviewed: ASSESSMENT: 1. COURTNEY on CKD stage IV 2. Hyperkalemia 3. Acute on chronic anemia 4. Acute GI bleed 5. Pancytopenia 6. GUEVARA, decompensated with ascites 7. Hypothyroidism 8. Osteoporosis 9. Hypertension 10. Type 2 DM Meds reviewed Plan: Continue on midodrine Will plan for paracentesis on tomorrow Will give IV albumin every 8h tomorrow x 3 doses Repeat blood work in am Inpatient E&M: 49082 Subs Hosp L2
[2020-02-07 11:05] LABS: Bedside Glucose 150 mg/dL (70-110)
--- NOTE | 2020-02-07 11:40 | DIALYSIS ---
HD x 2.5 hours complete. Tolerated tx fairly well. Had low sbp during tx. Pt was asymptomatic the whole tx. Dr. Menard is aware. UF of 850ml. Ran on 3k bath. Used left chest wall dialysis catheter. Catheter closed with heparin per fill volume. Caps placed. Dressing is intact. See tx sheet for more details. Report was given to EVAN Ibarra
[2020-02-07] MEDS: Heparin 10,000 UNITS/10 ML Vial IV (12:00)
[2020-02-07 12:59] LABS: Hepatitis B Surface Antibody Non-Reactive; Hepatitis B Surface Antigen Non-Reactive (Nonreactive)
[2020-02-07 16:56] LABS: Bedside Glucose 119 mg/dL (70-110)
[2020-02-07 23:26] LABS: Bedside Glucose 117 mg/dL (70-110)
[2020-02-08] VITALS (13 sets, daily range): BP systolic 84–116; BP diastolic 32–50; PULSE 67–83; RESP 14–18; TEMP 36.7–37.1; O2SAT 94–99
[2020-02-08] MEDS: Midodrine HCl 5 MG Tablet PO ×3 (05:02→22:03)
[2020-02-08] MEDS: Levothyroxine 150 MCG Tablet PO (05:02)
[2020-02-08] MEDS: 0.9% Saline Lock 10 ML Syringe IV ×5 (05:18→22:04)
[2020-02-08 05:28] LABS: Hematocrit 23.8 % (37-47); Hemoglobin 7.8 g/dL (12.0-15.0); Mean Corp Hgb Conc 32.8 g/dL (32-36); Mean Corpuscular Volume 91.5 fL (81-99); Mean Platelet Vol. 9.6 fl (6.2-12.0); POSITIVE COUNT YES; POSITIVE MORPHOLOGY YES; RBC Distribution Width CV 20.3 % (11.6-14.6); RBC Distribution Width SD 67.9 fl (35.1-43.9); White Blood Count 2.1 K/mm3 (4.4-11.0)
[2020-02-08 05:37] LABS: Platelet Count 43 K/mm3 (150-450); Scan Indicated on CBC? Y/N YES- FLAGS NOTED
[2020-02-08 05:38] LABS: Anion Gap 8 (5-15); BUN 85 mg/dL (7-18); BUN/Creat Ratio 24.9 RATIO (10-20); Calcium,Total 8.8 mg/dL (8.5-10.1); Chloride 110 mmol/L (98-107); Creatinine, Serum 3.42 mg/dL (0.55-1.02); EST Glomerular Filtration Rate 14 mL/min (>60); Est Glom Filt Rate - Afr Amer 17 mL/min (>60); Estimated Creatinine Clearance 11.59 ml/min; Glucose 139 mg/dL (74-106); Potassium 3.8 mmol/L (3.5-5.1); Sodium Level 142 mmol/L (136-145)
[2020-02-08 08:26] LABS: Bedside Glucose 107 mg/dL (70-110)
[2020-02-08] MEDS: Insulin Lispro 100 UNIT/ML INSULN.PEN SC (09:34)
[2020-02-08] MEDS: Albumin Human 25% (100 mL) 25 GM/100 ML BAG IV ×2 (10:45→17:46)
--- NOTE | 2020-02-08 11:02 | PCA ---
pt off floor
--- NOTE | 2020-02-08 11:39 | PCM.PN.HOSP ---
<Jesus Solano - Last Filed: 02/08/20 11:39> Patient Problems: Active and Suspected Problems (Last Reviewed 02/06/20 @ 10:[address] Umang Fierro MD) Hyperkalemia (Acute) Hypothyroidism (Acute) Hyperglycemia (Acute) Anemia (Acute) Acute kidney injury on CKD stage IV (Acute) Vascular catheter fitting or adjustment (Acute) Reason for Visit: COURTNEY, GUEVARA Subjective: No complaints. Resting comfortably in bed NAD. Awaiting paracentesis and dialysis today. Vitals/I&O's: Vital Signs Temp Pulse Resp BP Pulse Ox 98.4 F 67 15 92/44 L 97 02/08/20 09:16 02/08/20 11:17 02/08/20 09:16 02/08/20 09:16 02/08/20 09:16 Oxygen Delivery Method Room Air Weight: 179 lb 14.355 oz Body Mass Index (BMI) 29.5 Finger Stick Blood Glucose 406 Intake and Output for Last 24 Hours 02/06/20 02/07/20 02/08/20 23:59 23:59 23:59 Intake Total 1375.5 / 1375.5 470 / 650 292.5 / 292.5 Output Total 450 / 450 151 / 151 Balance 925.5 / 925.5 319 / 499 292.5 / 292.5 General: Alert, Oriented x3, Cooperative HEENT: Atraumatic, PERRLA, EOMI, Normocephalic Neck: Supple, No JVD, Negative Carotid Bruits Lungs: Clear to auscultation, Normal air movement Cardiovascular: Regular rate, No murmurs Abdomen: Bowel Sounds Present, Soft, Non Tender Extremities: No edema, Capillary Refill Less than 3 Seconds Skin: No rashes, No breakdown Musculoskeletal: No Tenderness to Palpation of Joints or Extremities Neurological: Cranial nerves II-XII grossly intact Psych/Mental Status: Normal Affect, Appropriate Laboratory Results 02/07/20 10:00: Hep Bs Antigen Non-Reactive, Hep Bs Antibody Non-Reactive 02/07/20 16:47: POC Glucose 119 H 02/07/20 22:26: POC Glucose 117 H 02/08/20 05:20: WBC 2.1 L, RBC 2.60 L, Hgb 7.8 L, Hct 23.8 L, MCV 91.5, MCH 30.0, MCHC 32.8, RDW Std Deviation 67.9 H, RDW Coeff of Mary Alice 20.3 H, Plt Count 43 L*, MPV 9.6, Differential Comment COMMENT 02/08/20 05:20: Sodium 142, Potassium 3.8, Chloride 110 H, Carbon Dioxide 24.0, Anion Gap 8, BUN 85 H, Creatinine 3.42 H, Estim Creat Clear Calc 11.59, Est GFR (MDRD) Af Amer 17 L, Est GFR (MDRD) Non-Af 14 L, BUN/Creatinine Ratio 24.9 H, Glucose 139 H, Calcium 8.8 02/08/20 08:11: POC Glucose 107 Current Medications Acetaminophen (Tylenol) 650 mg PO Q6H PRN PRN PRN Reason: Pain Score 1-10/Temp > 100.7 F Last Admin: 02/06/20 22:52 Dose: 650 mg Documented by: Albuterol Sulfate (Ventolin Aerosols) 2.5 mg INHALATION Q2H PRN PRN PRN Reason: SOB/Wheezing Dextrose (D50w Syringe) 0 gm IV X1 PRN; Protocol PRN Reason: Hypoglycemia Ergocalciferol (Vitamin D) 50,000 unit PO FR [facility] Last Admin: 02/02/20 08:55 Dose: 50,000 unit Documented by: Glucagon () 1 mg IM .X1 PRN PRN Reason: Hypoglycemia Guaifenesin (Robitussin) 20 ml PO Q4H PRN PRN PRN Reason: COUGH Hydralazine HCl (Apresoline Iv) 10 mg IV Q4H PRN PRN PRN Reason: SBP > 160 Sodium Chloride () 500 mls @ 15 mls/hr IV PRN PRN PRN Reason: Blood Transfusion Last Infusion: 02/06/20 22:22 Dose: Infused Documented by: Sodium Chloride () 250 mls @ 15 mls/hr IV .[id number] PRN PRN Reason: Saline Flush Last Infusion: 02/08/20 09:54 Dose: 0 mls/hr Documented by: Sodium Chloride () 250 mls @ 15 mls/hr IV .[id number] PRN PRN Reason: Additional IVPB Infusion Pantoprazole Sodium 40 mg/ (Sodium Chloride) 110 mls @ 330 mls/hr IV Q12 [facility] Last Infusion: 02/08/20 09:53 Dose: Infused Documented by: Albumin Human () 25 gm in 100 mls @ 60 mls/hr IV Q8H [facility] Stop: 02/09/20 03:39 Insulin Glargine (Lantus (Bkc)) 36 units SC BID [facility] Last Admin: 02/08/20 09:35 Dose: 36 units Documented by: Insulin Human Lispro (Humalog Kwikpen (Bk)) 5 unit SC TIDAC [facility] Last Admin: 02/08/20 09:34 Dose: 5 units Documented by: Insulin Human Lispro (Humalog Kwikpen (Bkc)) 0 unit SC ACHS [facility]; Protocol Last Admin: 02/08/20 08:12 Dose: Not Given Documented by: Levothyroxine Sodium (Synthroid) 150 mcg PO DAILY@0600 [facility] Last Admin: 02/08/20 05:02 Dose: 150 mcg Documented by: Midodrine (Proamatine) 5 mg PO TID [facility] Last Admin: 02/08/20 05:02 Dose: 5 mg Documented by: Morphine Sulfate () 2 mg IV Q3H PRN PRN PRN Reason: Pain Score 6-10/10 Nitroglycerin (Nitrostat) 0.4 mg SUBLINGUAL Q5M PRN PRN Reason: CARDIAC/CHEST PAIN Oxycodone HCl (Oxyir) 5 mg PO Q4H PRN PRN PRN Reason: Pain Score 4-5/10 Prochlorperazine Edisylate (Compazine Iv) 5 mg IV Q4H PRN PRN PRN Reason: Breakthrough Nausea/Vomiting Senna/Docusate Sodium (Senokot-S, [place]-Colace) 2 tablet PO BID PRN PRN PRN Reason: Constipation Sodium Chloride () 10 - 40 ml IV UD PRN PRN Reason: SALINE FLUSH Last Admin: 02/08/20 09:33 Dose: 20 ml Documented by: Throat Lozenges (Cepacol Sore Throat Lozenge) 1 lozenge MUCOUS MEM Q2H PRN PRN PRN Reason: SORE THROAT STROKE Vital Signs/Narrative: Vital Signs Temp Pulse Resp BP Pulse Ox 02/08/20 11:17 67 02/08/20 09:16 98.4 F 71 15 92/44 L 97 Medical Necessity - Tobacco Use Smoking Status: Never smoker Assessment/Plan All Active Problems (Last Reviewed 02/06/20 @ 10:[address] Umang Fierro MD) Hyperkalemia (Acute) Hypothyroidism (Acute) Hyperglycemia (Acute) Anemia (Acute) Acute kidney injury on CKD stage IV (Acute) Vascular catheter fitting or adjustment (Acute) 1. COURTNEY on CKD IV - continue dialysis today with plan for outpatient continuation. Hep neg. Midodrine for hypotension. Pt still producing urine. 2. GUEVARA - pt states she is not a candidate for transplant. Follows [facility]. Weekly paracentesis - will have today. 3. Pancytopenia - likely 2/2 ESRD and GUEVARA. Trend. 4. Hx gastric vascular ectasia - if declines tx to [facility] for repeat EGD / possible need for repeat argon plasma coag therapy. 5. Hypothyroidism - synthroid increased this admit. 6. Osteoporosis - fosamax 7. DMt2 - SSI, home insulin DVT ppx: SCDs DC planning: home, possibly tomorrow. This patient was seen by eJsus Solano PA-C under the supervision of Doctor Mack. <Luiza Giron - Last Filed: 02/08/20 15:44> Vitals/I&O's: Vital Signs Temp Pulse Resp BP Pulse Ox 98.6 F 75 18 110/50 L 97 02/08/20 11:37 02/08/20 11:37 02/08/20 11:37 02/08/20 11:37 02/08/20 09:16 Oxygen Delivery Method [5] Room Air Oxygen Delivery Method [4] Room Air Oxygen Delivery Method [3] Room Air Oxygen Delivery Method [2] Room Air Oxygen Delivery Method [1 ( Room Air Initial Baseline)] Oxygen Delivery Method Room Air Weight: 81.6 kg Body Mass Index (BMI) 29.5 Finger Stick Blood Glucose 406 Intake and Output for Last 24 Hours 02/06/20 02/07/20 02/08/20 23:59 23:59 23:59 Intake Total 1375.5 / 1375.5 470 / 650 712.5 / 712.5 Output Total 450 / 450 151 / 151 8800 / 8800 Balance 925.5 / 925.5 319 / 499 -8087.5 / -8087.5 Laboratory Results 02/07/20 16:47: POC Glucose 119 H 02/07/20 22:26: POC Glucose 117 H 02/08/20 05:20: WBC 2.1 L, RBC 2.60 L, Hgb 7.8 L, Hct 23.8 L, MCV 91.5, MCH 30.0, MCHC 32.8, RDW Std Deviation 67.9 H, RDW Coeff of Mary Alice 20.3 H, Plt Count 43 L*, MPV 9.6, Differential Comment COMMENT 02/08/20 05:20: Sodium 142, Potassium 3.8, Chloride 110 H, Carbon Dioxide 24.0, Anion Gap 8, BUN 85 H, Creatinine 3.42 H, Estim Creat Clear Calc 11.59, Est GFR (MDRD) Af Amer 17 L, Est GFR (MDRD) Non-Af 14 L, BUN/Creatinine Ratio 24.9 H, Glucose 139 H, Calcium 8.8 02/08/20 08:11: POC Glucose 107 Current Medications Acetaminophen (Tylenol) 650 mg PO Q6H PRN PRN PRN Reason: Pain Score 1-10/Temp > 100.7 F Last Admin: 02/06/20 22:52 Dose: 650 mg Documented by: Albuterol Sulfate (Ventolin Aerosols) 2.5 mg INHALATION Q2H PRN PRN PRN Reason: SOB/Wheezing Dextrose (D50w Syringe) 0 gm IV X1 PRN; Protocol PRN Reason: Hypoglycemia Ergocalciferol (Vitamin D) 50,000 unit PO FR [facility] Last Admin: 02/02/20 08:55 Dose: 50,000 unit Documented by: Glucagon () 1 mg IM .X1 PRN PRN Reason: Hypoglycemia Guaifenesin (Robitussin) 20 ml PO Q4H PRN PRN PRN Reason: COUGH Hydralazine HCl (Apresoline Iv) 10 mg IV Q4H PRN PRN PRN Reason: SBP > 160 Sodium Chloride () 500 mls @ 15 mls/hr IV PRN PRN PRN Reason: Blood Transfusion Last Infusion: 02/06/20 22:22 Dose: Infused Documented by: Sodium Chloride () 250 mls @ 15 mls/hr IV .[id number] PRN PRN Reason: Saline Flush Last Infusion: 02/08/20 09:54 Dose: 0 mls/hr Documented by: Sodium Chloride () 250 mls @ 15 mls/hr IV .[id number] PRN PRN Reason: Additional IVPB Infusion Pantoprazole Sodium 40 mg/ (Sodium Chloride) 110 mls @ 330 mls/hr IV Q12 [facility] Last Infusion: 02/08/20 09:53 Dose: Infused Documented by: Albumin Human () 25 gm in 100 mls @ 60 mls/hr IV Q8H [facility] Stop: 02/09/20 03:39 Insulin Glargine (Lantus (Bkc)) 36 units SC BID [facility] Last Admin: 02/08/20 09:35 Dose: 36 units Documented by: Insulin Human Lispro (Humalog Kwikpen (Bk)) 5 unit SC TIDAC [facility] Last Admin: 02/08/20 09:34 Dose: 5 units Documented by: Insulin Human Lispro (Humalog Kwikpen (Bk)) 0 unit SC ACHS [facility]; Protocol Last Admin: 02/08/20 08:12 Dose: Not Given Documented by: Levothyroxine Sodium (Synthroid) 150 mcg PO DAILY@0600 [facility] Last Admin: 02/08/20 05:02 Dose: 150 mcg Documented by: Midodrine (Proamatine) 5 mg PO TID [facility] Last Admin: 02/08/20 05:02 Dose: 5 mg Documented by: Morphine Sulfate () 2 mg IV Q3H PRN PRN PRN Reason: Pain Score 6-10/10 Nitroglycerin (Nitrostat) 0.4 mg SUBLINGUAL Q5M PRN PRN Reason: CARDIAC/CHEST PAIN Oxycodone HCl (Oxyir) 5 mg PO Q4H PRN PRN PRN Reason: Pain Score 4-5/10 Prochlorperazine Edisylate (Compazine Iv) 5 mg IV Q4H PRN PRN PRN Reason: Breakthrough Nausea/Vomiting Senna/Docusate Sodium (Senokot-S, [place]-Colace) 2 tablet PO BID PRN PRN PRN Reason: Constipation Sodium Chloride () 10 - 40 ml IV UD PRN PRN Reason: SALINE FLUSH Last Admin: 02/08/20 09:33 Dose: 20 ml Documented by: Throat Lozenges (Cepacol Sore Throat Lozenge) 1 lozenge MUCOUS MEM Q2H PRN PRN PRN Reason: SORE THROAT STROKE Vital Signs/Narrative: Vital Signs Temp Pulse Pulse Pulse Pulse Pulse Pulse 02/08/20 11:37 98.6 F 75 76 71 67 68 02/08/20 11:17 67 Resp Resp Resp Resp Resp BP BP 02/08/20 11:37 18 18 18 18 18 110/50 L 116/46 L 02/08/20 11:17 BP BP BP 02/08/20 11:37 103/32 L 94/40 L 93/42 L 02/08/20 11:17 Assessment/Plan This patient was seen in conjunction with VANESSA Cardenas. I have independently interviewed and examined the patient and reviewed pertinent historical, laboratory, and other data. Please refer to VANESSA Cardenas note for his patient's presentation, findings, and recommendations. I have reviewed and his note and concur with his documentation Patient was seen and examined. She had abdominal paracentesis done in 5900 mils were removed. She complains of some mild soreness in her abdomen. Denied any fever or chills. Blood pressure during dialysis has been relatively low but the map more than 65. She is on IV albumin 25 every 8 x24 hours. Physical Exam: Gen: Comfortable, not pale, not jaundiced, alert oriented x3 CVS:HS I +II, regular, no murmurs RESP: Diminished at lung bases GI: BS present and normal, distended, nontender, ascites ++ EXT:No edema Labs reviewed: ASSESSMENT: 1. COURTNEY on CKD stage IV, day 2 of hemodialysis 2. Hyperkalemia 3. Acute on chronic anemia 4. Acute GI bleed 5. Pancytopenia 6. GUEVARA, decompensated with ascites 7. Hypothyroidism 8. Osteoporosis 9. Hypertension 10. Type 2 DM 11. Chronic thrombocytopenia Meds reviewed Plan: Continue on midodrine Continue IV albumin Continue to monitor blood pressure Repeat blood work in am Inpatient E&M: 56982 Subs Hosp L2
--- NOTE | 2020-02-08 13:52 | PN.RENAL_ITS ---
Patient Problems: Active and Suspected Problems (Last Reviewed 02/06/20 @ 10:[address] Umang Fierro MD) Hyperkalemia (Acute) Hypothyroidism (Acute) Hyperglycemia (Acute) Anemia (Acute) Acute kidney injury on CKD stage IV (Acute) Vascular catheter fitting or adjustment (Acute) Subjective: Denies abdominal pain shortness of breath or any other complaints - Physical Exam Vitals/I&O's: Vital Signs Temp Pulse Resp BP Pulse Ox 98.6 F 75 18 110/50 L 97 02/08/20 11:37 02/08/20 11:37 02/08/20 11:37 02/08/20 11:37 02/08/20 09:16 Oxygen Delivery Method [5] Room Air Oxygen Delivery Method [4] Room Air Oxygen Delivery Method [3] Room Air Oxygen Delivery Method [2] Room Air Oxygen Delivery Method [1 ( Room Air Initial Baseline)] Oxygen Delivery Method Room Air Weight: 81.6 kg Body Mass Index (BMI) 29.5 Finger Stick Blood Glucose 406 Intake and Output for Last 24 Hours 02/06/20 02/07/20 02/08/20 23:59 23:59 23:59 Intake Total 1375.5 / 1375.5 470 / 650 712.5 / 712.5 Output Total 450 / 450 151 / 151 8800 / 8800 Balance 925.5 / 925.5 319 / 499 -8087.5 / -8087.5 General: Alert, Cooperative HEENT: Atraumatic, Normocephalic Oral: Moist Mucosa Neck: Supple Lungs: Clear to auscultation, Normal air movement Cardiovascular: Regular rate, Regular Rhythm Abdomen: Bowel Sounds Present, Soft Extremities: No edema Laboratory Results 02/07/20 16:47: POC Glucose 119 H 02/07/20 22:26: POC Glucose 117 H 02/08/20 05:20: WBC 2.1 L, RBC 2.60 L, Hgb 7.8 L, Hct 23.8 L, MCV 91.5, MCH 30.0, MCHC 32.8, RDW Std Deviation 67.9 H, RDW Coeff of Mary Alice 20.3 H, Plt Count 43 L*, MPV 9.6, Differential Comment COMMENT 02/08/20 05:20: Sodium 142, Potassium 3.8, Chloride 110 H, Carbon Dioxide 24.0, Anion Gap 8, BUN 85 H, Creatinine 3.42 H, Estim Creat Clear Calc 11.59, Est GFR (MDRD) Af Amer 17 L, Est GFR (MDRD) Non-Af 14 L, BUN/Creatinine Ratio 24.9 H, Glucose 139 H, Calcium 8.8 02/08/20 08:11: POC Glucose 107 Current Medications Acetaminophen (Tylenol) 650 mg PO Q6H PRN PRN PRN Reason: Pain Score 1-10/Temp > 100.7 F Last Admin: 02/06/20 22:52 Dose: 650 mg Documented by: Albuterol Sulfate (Ventolin Aerosols) 2.5 mg INHALATION Q2H PRN PRN PRN Reason: SOB/Wheezing Dextrose (D50w Syringe) 0 gm IV X1 PRN; Protocol PRN Reason: Hypoglycemia Ergocalciferol (Vitamin D) 50,000 unit PO FR [facility] Last Admin: 02/02/20 08:55 Dose: 50,000 unit Documented by: Glucagon () 1 mg IM .X1 PRN PRN Reason: Hypoglycemia Guaifenesin (Robitussin) 20 ml PO Q4H PRN PRN PRN Reason: COUGH Hydralazine HCl (Apresoline Iv) 10 mg IV Q4H PRN PRN PRN Reason: SBP > 160 Sodium Chloride () 500 mls @ 15 mls/hr IV PRN PRN PRN Reason: Blood Transfusion Last Infusion: 02/06/20 22:22 Dose: Infused Documented by: Sodium Chloride () 250 mls @ 15 mls/hr IV .[id number] PRN PRN Reason: Saline Flush Last Infusion: 02/08/20 09:54 Dose: 0 mls/hr Documented by: Sodium Chloride () 250 mls @ 15 mls/hr IV .[id number] PRN PRN Reason: Additional IVPB Infusion Pantoprazole Sodium 40 mg/ (Sodium Chloride) 110 mls @ 330 mls/hr IV Q12 [facility] Last Infusion: 02/08/20 09:53 Dose: Infused Documented by: Albumin Human () 25 gm in 100 mls @ 60 mls/hr IV Q8H [facility] Stop: 02/09/20 03:39 Insulin Glargine (Lantus (Bkc)) 36 units SC BID [facility] Last Admin: 02/08/20 09:35 Dose: 36 units Documented by: Insulin Human Lispro (Humalog Kwikpen (Bkc)) 5 unit SC TIDAC [facility] Last Admin: 02/08/20 09:34 Dose: 5 units Documented by: Insulin Human Lispro (Humalog Kwikpen (Bkc)) 0 unit SC ACHS [facility]; Protocol Last Admin: 02/08/20 08:12 Dose: Not Given Documented by: Levothyroxine Sodium (Synthroid) 150 mcg PO DAILY@0600 [facility] Last Admin: 02/08/20 05:02 Dose: 150 mcg Documented by: Midodrine (Proamatine) 5 mg PO TID [facility] Last Admin: 02/08/20 05:02 Dose: 5 mg Documented by: Morphine Sulfate () 2 mg IV Q3H PRN PRN PRN Reason: Pain Score 6-10/10 Nitroglycerin (Nitrostat) 0.4 mg SUBLINGUAL Q5M PRN PRN Reason: CARDIAC/CHEST PAIN Oxycodone HCl (Oxyir) 5 mg PO Q4H PRN PRN PRN Reason: Pain Score 4-5/10 Prochlorperazine Edisylate (Compazine Iv) 5 mg IV Q4H PRN PRN PRN Reason: Breakthrough Nausea/Vomiting Senna/Docusate Sodium (Senokot-S, [place]-Colace) 2 tablet PO BID PRN PRN PRN Reason: Constipation Sodium Chloride () 10 - 40 ml IV UD PRN PRN Reason: SALINE FLUSH Last Admin: 02/08/20 09:33 Dose: 20 ml Documented by: Throat Lozenges (Cepacol Sore Throat Lozenge) 1 lozenge MUCOUS MEM Q2H PRN PRN PRN Reason: SORE THROAT Medical Necessity - Tobacco Use Smoking Status: Never smoker Assessment/Plan All Active Problems (Last Reviewed 02/06/20 @ 10:[address] 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 She had paracentesis with 5900 mL removal. Continue midodrine for BP support. Avoid nephrotoxins. She has left IJ tunneled dialysis catheter. Social work for placement in outpatient dialysis unit. Check a renal ultrasound. Dialysis tomorrow
--- NOTE | 2020-02-08 14:04 | US_ITS ---
STUDY: RENAL ULTRASOUND - COMPLETE REASON FOR EXAM: Female, 74 years old. COURTNEY TECHNIQUE: Ultrasound evaluation of the kidneys was performed with real-time and static barbosa-scale imaging. COMPARISON: None. FINDINGS: RIGHT KIDNEY: Moderate renal atrophy. The right kidney measures 8.3 x 4.6 x 5 cm. There is a normal cortex of the right kidney. The renal cortex measures 1 cm. There is no right renal mass or cyst. There are no right renal calculi. There is no right hydronephrosis. DISTAL RIGHT URETER: There is non-visualization of the distal right ureter. There is no demonstrated right ureterovesical junction calculus. There is a visualized right ureteral jet. LEFT KIDNEY: Moderate renal atrophy. The left kidney measures 9.2 x 3.1 x 3.6 cm. There is a normal cortex of the left kidney. The renal cortex measures 0.8 cm. There is no left renal mass or cyst. There are no left renal calculi. There is no left hydronephrosis. DISTAL LEFT URETER: There is non-visualization of the distal left ureter. There is no demonstrated left ureterovesical junction calculus. There is a visualized left ureteral jet. AORTA: There is no demonstrated aneurysm.. I.V.C.: The IVC is patent. BLADDER: The distended urinary bladder has a volume of 44 ml. There is a normal wall thickness of the distended urinary bladder. There is no demonstrated mass within the urinary bladder. There are no demonstrated bladder calculi. US/Kidney and Bladder IMPRESSION: Normal ultrasound of the kidneys and urinary bladder. Electronically Signed: Samra Martinez, at 9:12 EDT Tel , Service support ,
--- NOTE | 2020-02-08 14:21 | CASEMGMT ---
Addendum entered by Thelma Sommers 02/09/20 10:43: 02/08/2020 1230 Pee at [facility] aware that pt will not have 1st OP treatment until 02/12/2020, voices understanding. Per Barb at [facility], they can take pt at this time and start of care will most likely be 02/13/2020 as pt is on dialysis MWF. Pt is aware of all, voices understanding. Aurora GORDON CM Original Note: Schedule letter obtained from [facility] and per the portal, pt is ready for treatment which means all clearance has been obtained at this time. Pt's chair time is MWF at 10:50am. Pt provided schedule letter at this time and explanation done, voices understanding. Pt states plan is to go home at discharge but states would now like C set up and after reviewing list of in-network HHC agencies, pt states she would like [facility] at this time. Order placed for [facility] PT/OT at this time and message left with Whitney at [facility] in regards to referral at this time. Pt voices no further questions/concerns/needs at this time. Therapy is set to work with pt after dialysis is complete. Aurora GORDON CM
--- NOTE | 2020-02-08 14:35 | US_ITS ---
PROCEDURE: ULTRASOUND GUIDED PARACENTESIS CLINICAL HISTORY: Female, 74 years old. ASCITES CONSENT: The risks, benefits and alternatives to the procedure were explained to the patient, and the patient agreed to the procedure and signed the consent. 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 PROCEDURE/TECHNIQUE: The risks, benefits, and alternatives to the procedure were explained to patient, and the patient agreed to the procedure and signed a consent form for the procedure. TECHNIQUE: Under the ultrasound guidance using sterile technique and after infiltration of the skin and subcutaneous soft tissues with 10 mL of lidocaine 1% a 5 Kazakh drainage catheter is introduced in the lower part of the abdomen. 5900 mL of fluid were removed sample sent to lab for evaluation. The patient tolerated the procedure there was no immediate complication. FINDINGS: FLUID PRE-PROCEDURE There is posterior enhancement. The findings appear anechoic. There is no loculation. FLUID POST-PROCEDURE Amount of fluid drained: 5900 ml. US/Paracentesis with US IMPRESSION: Successful ultrasound-guided paracentesis. Electronically Signed: Samra Martinez, at 17:03 EDT Tel , Service support ,
--- NOTE | 2020-02-08 15:30 | DIALYSIS ---
Pt tolerated 3hr HD tx well. Net UF -1000ml. See flow record for tx data.
[2020-02-08 15:36] LABS: Bedside Glucose 62 mg/dL (70-110)
[2020-02-08] MEDS: Glucerna Shake 120 ML LIQUID PO (17:47)
[2020-02-08 18:06] LABS: Bedside Glucose 131 mg/dL (70-110)
[2020-02-08] MEDS: Glycerin/Hypromellose/PEG400 15 ml Bottle 1 DRP EACH EYE (22:35)
[2020-02-08 23:10] LABS: Bedside Glucose 129 mg/dL (70-110)
[2020-02-09] VITALS (10 sets, daily range): BP systolic 84–103; BP diastolic 42–52; PULSE 66–84; RESP 14–16; TEMP 36.5–36.9; O2SAT 95–96
[2020-02-09] MEDS: Albumin Human 25% (100 mL) 25 GM/100 ML BAG IV (02:25)
[2020-02-09] MEDS: Levothyroxine 150 MCG Tablet PO (05:10)
[2020-02-09] MEDS: Midodrine HCl 5 MG Tablet PO ×2 (05:10→15:35)
[2020-02-09] MEDS: 0.9% Saline Lock 10 ML Syringe IV ×4 (05:12→10:03)
[2020-02-09 06:23] LABS: Hematocrit 17.7 % (37-47); Mean Corp Hgb Conc 32.2 g/dL (32-36); Mean Corpuscular Hgb 29.5 pg (27.0-32.0); Mean Corpuscular Volume 91.7 fL (81-99); POSITIVE COUNT YES; RBC Distribution Width CV 19.5 % (11.6-14.6); RBC Distribution Width SD 64.6 fl (35.1-43.9); Red Blood Count 1.93 M/mm3 (4.2-5.4)
[2020-02-09 06:49] LABS: Anion Gap 6 (5-15); BUN 59 mg/dL (7-18); BUN/Creat Ratio 20.3 RATIO (10-20); Chloride 103 mmol/L (98-107); EST Glomerular Filtration Rate 17 mL/min (>60); Est Glom Filt Rate - Afr Amer 20 mL/min (>60); Estimated Creatinine Clearance 13.66 ml/min; Glucose 132 mg/dL (74-106); Potassium 3.7 mmol/L (3.5-5.1); Sodium Level 137 mmol/L (136-145)
[2020-02-09 07:32] LABS: Hemoglobin 5.7 g/dL (12.0-15.0)
[2020-02-09 07:33] LABS: Platelet Count 25 K/mm3 (150-450)
[2020-02-09 07:56] LABS: Absolute Neutrophil Count 0.6 X10^3/uL (2.0-7.7); Basophil# 0.01 X10^3/uL; Eosinophil# 0.04 X10^3/uL; Eosinophils% 4.1 % (0-5); Lymphocyte % 20.4 % (19-41); Monocyte# 0.13 X10^3/uL; Monocyte% 13.3 % (0-10); NRBC Flagged by Analyzer 0 % (0-5); Neutrophil % 61.2 % (47-70); POSITIVE DIFFERENTIAL YES
[2020-02-09 08:00] LABS: Differential Indicated SCAN CRITERIA MET
[2020-02-09 08:36] LABS: Bedside Glucose 129 mg/dL (70-110)
[2020-02-09 08:45] LABS: Iron 64 ug/dL (50-170); Iron Binding Capacity,Total 136 ug/dL (250-450); PERCENT IRON SATURATION 47.1 % (15.0-55.0)
[2020-02-09 08:59] LABS: Absolute Neutrophil Count 0.8 X10^3/uL (2.0-7.7); Basophil# 0.01 X10^3/uL; Basophil% 0.8 % (0-1); Eosinophil# 0.07 X10^3/uL; Eosinophils% 5.5 % (0-5); Hematocrit 19.2 % (37-47); Lymphocyte % 15.7 % (19-41); Mean Corp Hgb Conc 32.8 g/dL (32-36); Mean Corpuscular Hgb 30.1 pg (27.0-32.0); Mean Corpuscular Volume 91.9 fL (81-99); Mean Platelet Vol. 11.4 fl (6.2-12.0); Monocyte# 0.17 X10^3/uL; Monocyte% 13.4 % (0-10); NRBC Flagged by Analyzer 0 % (0-5); Neutrophil # 0.81 X10^3/uL (2.7-7.7); Neutrophil % 63.8 % (47-70); POSITIVE COUNT YES; POSITIVE DIFFERENTIAL YES; POSITIVE MORPHOLOGY YES; RBC Distribution Width CV 19.6 % (11.6-14.6); RBC Distribution Width SD 65.8 fl (35.1-43.9); Red Blood Count 2.09 M/mm3 (4.2-5.4)
[2020-02-09 09:10] LABS: Differential Indicated SCAN CRITERIA MET
[2020-02-09 09:12] LABS: Hemoglobin 6.3 g/dL (12.0-15.0)
[2020-02-09 09:13] LABS: Platelet Count 30 K/mm3 (150-450); White Blood Count 1.3 K/mm3 (4.4-11.0)
[2020-02-09 09:28] LABS: Hypochromasia 1+
[2020-02-09 09:29] LABS: Platelet Estimate MKD DEC (ADEQ)
[2020-02-09] MEDS: Glucerna Shake 120 ML LIQUID PO (09:54)
[2020-02-09] MEDS: Insulin Lispro 100 UNIT/ML INSULN.PEN SC (09:54)
[2020-02-09 10:31] LABS: AST(SGOT) 22 U/L (15-37); Alanine Aminotransfer ALT/SGPT 17 U/L (13-56); Albumin, Serum 3.7 g/dL (3.2-5.0); Alkaline Phosphatase 78 U/L (45-117); Bilirubin, Direct 0.38 mg/dL (0.00-0.30); Globulin 1.8 g/dL (2.2-4.2); Protein, Total 5.5 g/dL (6.4-8.2)
--- NOTE | 2020-02-09 10:31 | CASEMGMT ---
Addendum entered by Thelma Sommers 02/09/20 11:55: Call to Pee at [facility] to notify that pt to be transferred to [facility] at this time, voices understanding. Message left with Barb at [facility] at this time in regards to same, voices understanding. Aurora RN MONICA Addendum entered by Thelma Sommers 02/09/20 11:39: Pt to be transferred at this time and pt states she would like to go to [facility] at this time. According to the [facility] website, [facility] is not in-network at this time. Pt states she was transferred there twice from ED in the last couple months and would like to go back. Pt aware that [facility] is not in-network and insists that they are at this time to Vidhya Solano PA-C. Call to [facility] and per rep, [facility] is out of network and she states that pt's in and out of network benefits are not the same. Rep verifies that [facility], [facility], [facility], and are in-network at this time. This RN CM to room with Tricia BENTON to notify pt at this time. Pt is made aware that it is always her choice on facility for transfer but pt states 'I can't afford to pay it if it's out of network.' Pt is crying at this time and would like this RN CM to call her nephew/HPOA, Miko, to update him on all at this time. Call to Miko at this time and after being updated on all, he states 'I think she needs to go to [facility] Miko aware that per pt, she is too upset to speak with him at this time but she will call him later. Pt updated on what Miko said at this time. Lyla, gym supervisor, at bedside visiting pt and provides support to pt at this time. Pt states 'I better go where I know it's covered' and states she would prefer [facility] at this time. Tricia BENTON aware at this time, voices understanding. Emotional support given to pt at this time. This RN CM will check back with pt later. Aurora GORDON CM Original Note: According to the [facility] website, the following are in-network tertiary facilities: [facility], [facility], [facility], and . Aurora RN CM
[2020-02-09 10:40] LABS: Immature Platelet Fraction 2.9 % (1.0-7.9); Reticulocyte Count 2.97 % (0.5-1.5)
--- NOTE | 2020-02-09 10:45 | CASEMGMT ---
Per Tricia BENTON, pt will not discharge today and hematology has been consulted d/t blood counts today. Green sheet on chart for HHC at this time. This RN CM to room and discussed all with pt at this time, voices understanding. Pt voices no further questions/concerns/needs at this time. SStaten RN CM
[2020-02-09 10:48] LABS: Platelet Count 30 K/mm3 (150-450)
[2020-02-09 11:11] LABS: Vitamin B12 339 pg/mL (211-911)
--- NOTE | 2020-02-09 13:01 | PCM.DC.SUM ---
<Jesus Solano - Last Filed: 02/09/20 13:37> Discharge Date and Diagnosis - Problem List Patient Problems: Active and Suspected Problems (Last Reviewed 02/06/20 @ 10:[address] Umang Fierro MD) Hyperkalemia (Acute) Hypothyroidism (Acute) Hyperglycemia (Acute) Anemia (Acute) Acute kidney injury on CKD stage IV (Acute) Vascular catheter fitting or adjustment (Acute) Date of Admission: 02/01/20 Date of Discharge: 02/09/20 - Primary Discharge Diagnosis Acute Problems: Active Problems (Last Reviewed 02/06/20 @ 10:[address] Umang Fierro MD) COURTNEY on CKD IV. Now ESRD on hemodialysis FORRESTER Acute on chronic anemia, with concern for upper GI bleed Pancytopenia / FORRESTER, CKD Hx gastric vascular ectasia s/p argon plasma coag December 2019 Hx esphageal varices hx Breast cancer - in remission, hx hypothyroidism, hx osteoporosis, hx HTN. - Secondary Discharge Diagnosis Chronic Problems: Chronic Problems (Last Reviewed 02/06/20 @ 10:[address] 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 Further evaluation by CT scan would be helpful. MediPort is in good position. US/Kidney and Bladder IMPRESSION: Normal ultrasound of the kidneys and urinary bladder. Consults: [place] - Mansoor, Susana Menard Gen surg - [place] Operations: None Procedures: Dialysis, - - dialysis cath placed 02/05 left IJ Summary of Care Provided: Hospital Course: The patient is a 74 year old F with pmhx of FORRESTER cirrhosis, esophageal varices, gastric vascular ectasia, CKDIV, pancytopenia, DMt2 hypothyroidism, HTN, breast cancer in remission, TIA, osteoporosis who presented to the ER with c/o abnormal labs. She had worsening renal failure on outpatient labs. She was admitted to the PCU on telemetry as she had some hyperkalemia. Nephrology was consulted and she was felt to have hepatorenal syndrome. She appeared volume overloaded with ascites. Pt was treated unsucessfully with a bumex drip. She was unable to recover kidney function and dialysis was recommended. Dr. Fierro from gen surg was consulted and a left IJ dialysis cath was placed on 02/05. She as then dialyzed 3 times and had good improvement in renal function. She does still make urine. She did have some difficulty with low BP with dialysis and she received midodrine daily. Also while here she had difficulty maintaining adequate hemoglobin concentrations. She received a total of 6 units of blood throughout her stay. The final day of stay here Hgb dropped from 7.8 to 5.7 so a 5th and 6th unit of blood were given. She also has chronically low platelets however these were somewhat lower than baseline at 25 and 30 the last two days. The patient has pancytopenia and also a hx of GI bleeds. She has had esophageal varices and gastric vascular ectasia requiring intervention. She had intervention for the latter in December at [facility], undergoing argon plasma coagulation in the gastric antrum. She had no manuela bleeding while here. She denied had no vomiting or dark stools recently. Hem/Onc was consulted, who was concerned she may have underlying bleeding given her ongoing need for blood transfusions. They recommended referral to a tertiary center may she have have a gastroenterology evaluation. She was accepted at [facility]. She will go to the ICU under Dr. Shayy Chambers. She was discharged in stable condition. Lastly, she does undergo weekly paracentesis for ascites, and last had one yesterday - 5900cc drained, albumin given post. Her outpatient coverage specialist rn is Dr. Allen. This patient was seen by Jesus Solano PA-C under the supervision of Dr. Giron [] Patient Problems: Active and Suspected Problems (Last Reviewed 02/06/20 @ 10:[address] Umang Fierro MD) Hyperkalemia (Acute) Hypothyroidism (Acute) Hyperglycemia (Acute) Anemia (Acute) Acute kidney injury on CKD stage IV (Acute) Vascular catheter fitting or adjustment (Acute) - Physical Exam Vitals/I&O's: Vital Signs Temp Pulse Resp BP Pulse Ox 98 F 77 15 93/48 L 95 02/09/20 12:10 02/09/20 12:10 02/09/20 12:10 02/09/20 12:10 02/09/20 12:10 Oxygen Delivery Method [5] Room Air Oxygen Delivery Method [4] Room Air Oxygen Delivery Method [3] Room Air Oxygen Delivery Method [2] Room Air Oxygen Delivery Method [1 ( Room Air Initial Baseline)] Oxygen Delivery Method Room Air Weight: 174 lb 9.698 oz Body Mass Index (BMI) 29.5 Finger Stick Blood Glucose 406 Intake and Output for Last 24 Hours 02/07/20 02/08/20 02/09/20 23:59 23:59 23:59 Intake Total 470 / 650 1562.5 / 1562.5 1150 / 1150 Output Total 151 / 151 9800 / 9800 Balance 319 / 499 -8237.5 / -8237.5 1150 / 1150 General: Alert, Oriented x3, Cooperative HEENT: Atraumatic, PERRLA, EOMI, Normocephalic Neck: Supple, No JVD, Negative Carotid Bruits Lungs: Clear to auscultation, Normal air movement Cardiovascular: Regular rate, No murmurs Abdomen: Bowel Sounds Present, Soft, Non Tender Extremities: No edema, Capillary Refill Less than 3 Seconds Skin: No rashes, No breakdown, - - pallor Musculoskeletal: No Tenderness to Palpation of Joints or Extremities Neurological: Cranial nerves II-XII grossly intact Psych/Mental Status: Normal Affect, Appropriate, Alert and oriented to time, place, person, mood and affect Laboratory Results 02/08/20 15:30: POC Glucose 62 L 02/08/20 17:45: POC Glucose 131 H 02/08/20 22:11: POC Glucose 129 H 02/09/20 06:10: WBC 1.0 L*, RBC 1.93 L, Hgb 5.7 L*, Hct 17.7 L, MCV 91.7, MCH 29.5, MCHC 32.2, RDW Std Deviation 64.6 H, RDW Coeff of Mary Alice 19.5 H, Plt Count 25 L*, MPV 11.0, Immature Gran % (Auto) 0.000, Neut % (Auto) 61.2, Lymph % (Auto) 20.4, [place] % (Auto) 13.3 H, Eos % (Auto) 4.1, Baso % (Auto) 1.0, Absolute Neuts (auto) 0.6 L, Absolute Lymphs (auto) 0.20 L, Nucleated RBC % 0, Diff Path Review October02/09/20 06:10: Sodium 137, Potassium 3.7, Chloride 103, Carbon Dioxide 28.0, Anion Gap 6, BUN 59 H, Creatinine 2.90 H, Estim Creat Clear Calc 13.66, Est GFR (MDRD) Af Amer 20 L, Est GFR (MDRD) Non-Af 17 L, BUN/Creatinine Ratio 20.3 H, Glucose 132 H, Calcium 9.0 02/09/20 06:10: Immature Plt Fraction 2.9, Retic Count 2.97 H, Immature Retic Fraction 6.10, Retic Hgb Equivalent 36.0 H 02/09/20 07:55: Blood Type A NEGATIVE, Antibody Screen NEGATIVE, Crossmatch See Detail 02/09/20 07:55: WBC 1.3 L*, Corrected WBC [employer]RA[employer] TEACHER, RBC 2.09 L, Hgb 6.3 L, Hct 19.2 L, MCV 91.9, MCH 30.1, MCHC 32.8, RDW Std Deviation 65.8 H, RDW Coeff of Mary Alice 19.6 H, Plt Count 30 L*, MPV 11.4, Immature Gran % (Auto) 0.800, Neut % (Auto) 63.8, Lymph % (Auto) 15.7 L, [place] % (Auto) 13.4 H, Eos % (Auto) 5.5 H, Baso % (Auto) 0.8, Absolute Neuts (auto) 0.8 L, Absolute Lymphs (auto) 0.20 L, Total Counted [employer] TEACHER, Neutrophils % (Manual) [employer] TEACHER, Band Neutrophils % [employer] TEACHER, Lymphocytes % (Manual) [employer] TEACHER, Monocytes % (Manual) [employer] TEACHER, Eosinophils % (Manual) [employer] TEACHER, Basophils % (Manual) [employer] TEACHER, Metamyelocytes % [employer]RA[employer] TEACHER, Myelocytes % [employer]RA[employer]S TEACHER, Promyelocytes % [employer] CRA[employer]S TEACHER, Blast Cells % [employer] TEACHER, Plasma Cell % (Manual) [employer] TEACHER, Other Cells % [employer] TEACHER, Nucleated RBC % 0, Nucleated RBCs/100 WBC [employer]RA[employer]S TEACHER, Differential Comment [employer] TEACHER, Diff Path Review [employer] TEACHER, Hypersegmented Neuts [employer] TEACHER, Atypical Lymphocytes [employer] TEACHER, Reactive Lymphocytes [employer] TEACHER, Smudge Cells [employer] CRA[employer]S TEACHER, Toxic Granulation [employer]RA[employer] TEACHER, Toxic Vacuolation [employer] CRA[employer]S TEACHER, Dohle Bodies [employer] CRA[employer]S TEACHER, Rebecca Rods [employer] CRA[employer]S TEACHER, Platelet Estimate MKD DEC, Plt Morphology Comment [employer] TEACHER, RBC Morphology [employer] TEACHER, Polychromasia [employer]RA[employer] TEACHER, Hypochromasia 1+, Poikilocytosis [employer] CRA[employer] TEACHER, Basophilic Stippling [employer] CRA[employer]S TEACHER, Anisocytosis [employer] CRA[employer]S TEACHER, Microcytosis [employer]RA[employer]S TEACHER, Macrocytosis [employer] CRAFTS TEACHER, Spherocytes [employer] CRAFTS TEACHER, Sickle Cells [employer] CRA[employer]S TEACHER, Target Cells [employer] CRAFTS TEACHER, Tear Drop Cells [employer] CRAFTS TEACHER, Ovalocytes [employer] CRAFTS TEACHER, Stomatocytes [employer] CRAFTS TEACHER, Ruggiero-Manor Bodies [employer] CRAFTS TEACHER, [place] Cells ARTS AND CRAFTS TEACHER, Bite Cells [employer] CRAFTS TEACHER, Crenated Cell [employer] CRAFTS TEACHER, Acanthocytes (Spur) [employer] CRAFTS TEACHER, Rouleaux ARTS [employer] CRAFTS TEACHER, Schistocytes [employer] CRAFTS TEACHER 02/09/20 07:55: Iron 64, TIBC 136 L, Iron Saturation 47.1, Folate 12.40 02/09/20 07:55: Vitamin B12 339 02/09/20 07:55: Haptoglobin Pending 02/09/20 07:55: Total Bilirubin 1.30 H, Direct Bilirubin 0.38 H, AST 22, ALT 17, Alkaline Phosphatase 78, Total Protein 5.5 L, Albumin 3.7, Globulin 1.8 L 02/09/20 08:28: POC Glucose 129 H Current Medications Acetaminophen (Tylenol) 650 mg PO Q6H PRN PRN PRN Reason: Pain Score 1-10/Temp > 100.7 F Last Admin: 02/06/20 22:52 Dose: 650 mg Documented by: Albuterol Sulfate (Ventolin Aerosols) 2.5 mg INHALATION Q2H PRN PRN PRN Reason: SOB/Wheezing Dextrose (D50w Syringe) 0 gm IV X1 PRN; Protocol PRN Reason: Hypoglycemia Ergocalciferol (Vitamin D) 50,000 unit PO FR KISHOR Last Admin: 02/09/20 09:55 Dose: 50,000 unit Documented by: Glucagon () 1 mg IM .X1 PRN PRN Reason: Hypoglycemia Guaifenesin (Robitussin) 20 ml PO Q4H PRN PRN PRN Reason: COUGH Hydralazine HCl (Apresoline Iv) 10 mg IV Q4H PRN PRN PRN Reason: SBP > 160 Sodium Chloride () 500 mls @ 15 mls/hr IV PRN PRN PRN Reason: Blood Transfusion Last Infusion: 02/06/20 22:22 Dose: Infused Documented by: Sodium Chloride () 250 mls @ 15 mls/hr IV .[id number] PRN PRN Reason: Saline Flush Last Infusion: 02/09/20 10:35 Dose: 15 mls/hr Documented by: Sodium Chloride () 250 mls @ 15 mls/hr IV .[id number] PRN PRN Reason: Additional IVPB Infusion Pantoprazole Sodium 40 mg/ (Sodium Chloride) 110 mls @ 330 mls/hr IV Q12 KISHOR Last Infusion: 02/09/20 10:35 Dose: Infused Documented by: Insulin Glargine (Lantus (Bk)) 30 units SC BID [facility] Last Admin: 02/09/20 09:55 Dose: 30 units Documented by: Insulin Human Lispro (Humalog Kwikpen (Bk)) 5 unit SC TIDAC [facility] Last Admin: 02/09/20 09:54 Dose: 5 units Documented by: Insulin Human Lispro (Humalog Kwikpen (Bk)) 0 unit SC ACHS [facility]; Protocol Last Admin: 02/09/20 08:34 Dose: Not Given Documented by: Levothyroxine Sodium (Synthroid) 150 mcg PO DAILY@0600 [facility] Last Admin: 02/09/20 05:10 Dose: 150 mcg Documented by: Midodrine (Proamatine) 5 mg PO TID [facility] Last Admin: 02/09/20 05:10 Dose: 5 mg Documented by: Morphine Sulfate () 2 mg IV Q3H PRN PRN PRN Reason: Pain Score 6-10/10 Nitroglycerin (Nitrostat) 0.4 mg SUBLINGUAL Q5M PRN PRN Reason: CARDIAC/CHEST PAIN Nutritional Formula (Lactose Free) (Glucerna Shake) 120 ml PO 4X/DAY [facility] Last Admin: 02/09/20 09:54 Dose: 120 ml Documented by: Oxycodone HCl (Oxyir) 5 mg PO Q4H PRN PRN PRN Reason: Pain Score 4-5/10 Prochlorperazine Edisylate (Compazine Iv) 5 mg IV Q4H PRN PRN PRN Reason: Breakthrough Nausea/Vomiting Senna/Docusate Sodium (Senokot-S, [place]-Colace) 2 tablet PO BID PRN PRN PRN Reason: Constipation Sodium Chloride () 10 - 40 ml IV UD PRN PRN Reason: SALINE FLUSH Last Admin: 02/09/20 10:03 Dose: 10 ml Documented by: Throat Lozenges (Cepacol Sore Throat Lozenge) 1 lozenge MUCOUS MEM Q2H PRN PRN PRN Reason: SORE THROAT Home Medications: Medications to take at Discharge Furosemide [Lasix] 40 mg PO QODAY 01/22/18 Alendronate Sodium [Fosamax] 70 mg PO FR 11/23/19 Insulin Glargine,Hum.rec.anlog [Lantus Solostar] 36 unit SQ BID 11/23/19 Atenolol [Tenormin (beta geraldine)] 50 mg PO DAILY #0 11/25/19 Cholecalciferol (Vitamin D3) [D3-50] 50,000 unit PO FR 02/01/20 Levothyroxine [Synthroid] 100 mcg PO DAILY@0600 02/01/20 Pantoprazole Sodium [Protonix] 40 mg PO BID 02/01/20 Primary Care Physician: Nicola Bay MD [Primary Care Provider] - Disposition: Acute care Hospital Minutes spent on discharge:: 40 Patient Condition:: Stable Medical Necessity - Tobacco Use Smoking Status: Never smoker Meaningful Use Info Meaningful Use Diagnoses (Choose all that apply): None applicable <MackMiles - Last Filed: 02/09/20 15:25> Discharge Date and Diagnosis - Primary Discharge Diagnosis Acute Problems: Active Problems (Last Reviewed 02/06/20 @ 10:[address] Umang Fierro MD) Hyperkalemia (Acute) Hypothyroidism (Acute) Hyperglycemia (Acute) Anemia (Acute) Acute kidney injury on CKD stage IV (Acute) Vascular catheter fitting or adjustment (Acute) - Secondary Discharge Diagnosis Chronic Problems: Chronic Problems (Last Reviewed 02/06/20 @ 10:[address] 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 I have independently interviewed and examined the patient and reviewed pertinent historical, laboratory, and other data. Please refer to VANESSA Cardenas note for his patient's presentation, findings, and recommendations. I have reviewed and his note and concur with his documentation 74-year-old female past medical history of Forrester cirrhosis/esophageal varices s/p recent EGD in [facility], CKD stage IV, pancytopenia who comes in with abnormal blood work -potassium was 6.1, hemoglobin of 5.7. She was admitted to the telemetry floor. She was transfused initial packed RBC and treated with Kayexalate for her hyperkalemia. Nephrology was consulted. Patient was initially tried on Bumex drip unsuccessfully. Her kidney function continued to be worse. She had a tunneled dialysis catheter placed on 02/06/20 by general surgery. Patient was dialyzed for 3 days with poor renal function. Her blood pressure was relatively low and was managed on Midodrine as well as IV albumin. Patient subsequently got paracentesis and more than 5900 was tapped. She also got IV albumin. On the day of discharge, and had abnormal blood work with drop in hemoglobin from 7.8-5.7. She got transfused 2 units of packed RBC make a total of 6 units in this hospital stay. There was no evidence of active or manuela GI bleed as she has not had any dark stools. Oncology was consulted and recommended discharge to tertiary center. Patient was accepted at [facility]. Physical Exam: Gen: Comfortable, not pale, not jaundiced, alert oriented x3, temporary dialysis in right CVS:HS I +II, regular, no murmurs RESP: Diminished at lung bases GI: BS present and normal, distended, nontender, ascites + EXT: Trace bilateral edema - Physical Exam Vitals/I&O's: Vital Signs Temp Pulse Resp BP Pulse Ox 98 F 68 14 84/46 L 96 02/09/20 12:34 02/09/20 12:34 02/09/20 12:34 02/09/20 12:34 02/09/20 12:34 Oxygen Delivery Method [5] Room Air Oxygen Delivery Method [4] Room Air Oxygen Delivery Method [3] Room Air Oxygen Delivery Method [2] Room Air Oxygen Delivery Method [1 ( Room Air Initial Baseline)] Oxygen Delivery Method Room Air Weight: 79.2 kg Body Mass Index (BMI) 29.5 Finger Stick Blood Glucose 406 Intake and Output for Last 24 Hours 02/07/20 02/08/20 02/09/20 23:59 23:59 23:59 Intake Total 470 / 650 1562.5 / 1562.5 1150 / 1150 Output Total 151 / 151 9800 / 9800 Balance 319 / 499 -8237.5 / -8237.5 1150 / 1150 Laboratory Results 02/08/20 15:30: POC Glucose 62 L 02/08/20 17:45: POC Glucose 131 H 02/08/20 22:11: POC Glucose 129 H 02/09/20 06:10: WBC 1.0 L*, RBC 1.93 L, Hgb 5.7 L*, Hct 17.7 L, MCV 91.7, MCH 29.5, MCHC 32.2, RDW Std Deviation 64.6 H, RDW Coeff of Mary Alice 19.5 H, Plt Count 25 L*, MPV 11.0, Immature Gran % (Auto) 0.000, Neut % (Auto) 61.2, Lymph % (Auto) 20.4, [place] % (Auto) 13.3 H, Eos % (Auto) 4.1, Baso % (Auto) 1.0, Absolute Neuts (auto) 0.6 L, Absolute Lymphs (auto) 0.20 L, Nucleated RBC % 0, Diff Path Review Reviewed 02/09/20 06:10: Sodium 137, Potassium 3.7, Chloride 103, Carbon Dioxide 28.0, Anion Gap 6, BUN 59 H, Creatinine 2.90 H, Estim Creat Clear Calc 13.66, Est GFR (MDRD) Af Amer 20 L, Est GFR (MDRD) Non-Af 17 L, BUN/Creatinine Ratio 20.3 H, Glucose 132 H, Calcium 9.0 02/09/20 06:10: Immature Plt Fraction 2.9, Retic Count 2.97 H, Immature Retic Fraction 6.10, Retic Hgb Equivalent 36.0 H 02/09/20 07:55: Blood Type A NEGATIVE, Antibody Screen NEGATIVE, Crossmatch See Detail 02/09/20 07:55: WBC 1.3 L*, Corrected WBC [employer]RAFTS TEACHER, RBC 2.09 L, Hgb 6.3 L, Hct 19.2 L, MCV 91.9, MCH 30.1, MCHC 32.8, RDW Std Deviation 65.8 H, RDW Coeff of Mary Alice 19.6 H, Plt Count 30 L*, MPV 11.4, Immature Gran % (Auto) 0.800, Neut % (Auto) 63.8, Lymph % (Auto) 15.7 L, [place] % (Auto) 13.4 H, Eos % (Auto) 5.5 H, Baso % (Auto) 0.8, Absolute Neuts (auto) 0.8 L, Absolute Lymphs (auto) 0.20 L, Total Counted [employer]RA[employer]S TEACHER, Neutrophils % (Manual) [employer]RA[employer] TEACHER, Band Neutrophils % [employer] TEACHER, Lymphocytes % (Manual) [employer] CRA[employer]S TEACHER, Monocytes % (Manual) [employer] CRA[employer]S TEACHER, Eosinophils % (Manual) [employer] CRA[employer]S TEACHER, Basophils % (Manual) [employer] CRAFTS TEACHER, Metamyelocytes % [employer] CRA[employer]S TEACHER, Myelocytes % [employer] CRA[employer]S TEACHER, Promyelocytes % [employer] CRAFTS TEACHER, Blast Cells % [employer]RA[employer]S TEACHER, Plasma Cell % (Manual) [employer] CRAFTS TEACHER, Other Cells % [employer] CRA[employer]S TEACHER, Nucleated RBC % 0, Nucleated RBCs/100 WBC [employer] CRAFTS TEACHER, Differential Comment [employer]RA[employer]S TEACHER, Diff Path Review Reviewed, Hypersegmented Neuts [employer]RA[employer] TEACHER, Atypical Lymphocytes [employer]RA[employer]S TEACHER, Reactive Lymphocytes [employer] CRA[employer]S TEACHER, Smudge Cells [employer] CRAFTS TEACHER, Toxic Granulation [employer] CRAFTS TEACHER, Toxic Vacuolation [employer] CRAFTS TEACHER, Dohle Bodies [employer] CRAFTS TEACHER, Rebecca Rods ART[employer] CRAFTS TEACHER, Platelet Estimate MKD DEC, Plt Morphology Comment [employer] CRA[employer]S TEACHER, RBC Morphology [employer] CRA[employer]S TEACHER, Polychromasia [employer] CRAFTS TEACHER, Hypochromasia 1+, Poikilocytosis [employer] CRAFTS TEACHER, Basophilic Stippling [employer] CRAFTS TEACHER, Anisocytosis ART[employer] CRAFTS TEACHER, Microcytosis [employer] CRAFTS TEACHER, Macrocytosis ARTS [employer] CRAFTS TEACHER, Spherocytes ARTS [employer] CRAFTS TEACHER, Sickle Cells [employer] CRAFTS TEACHER, Target Cells ARTS [employer] CRAFTS TEACHER, Tear Drop Cells [employer] CRAFTS TEACHER, Ovalocytes ARTS [employer] CRAFTS TEACHER, Stomatocytes ARTS [employer] CRAFTS TEACHER, Ruggiero-Manor Bodies ARTS AND CRAFTS TEACHER, Kathi Cells ARTS AND CRAFTS TEACHER, Bite Cells ARTS [employer] CRAFTS TEACHER, Crenated Cell ART[employer] CRAFTS TEACHER, Acanthocytes (Spur) ART[employer] CRAFTS TEACHER, Rouleaux ARTS AND CRAFTS TEACHER, Schistocytes ART[employer] CRAFTS TEACHER 02/09/20 07:55: Iron 64, TIBC 136 L, Iron Saturation 47.1, Folate 12.40 02/09/20 07:55: Vitamin B12 339 02/09/20 07:55: Haptoglobin Pending 08/21/20 07:55: Total Bilirubin 1.30 H, Direct Bilirubin 0.38 H, AST 22, ALT 17, Alkaline Phosphatase 78, Total Protein 5.5 L, Albumin 3.7, Globulin 1.8 L 02/09/20 08:28: POC Glucose 129 H Current Medications Acetaminophen (Tylenol) 650 mg PO Q6H PRN PRN PRN Reason: Pain Score 1-10/Temp > 100.7 F Last Admin: 02/06/20 22:52 Dose: 650 mg Documented by: Albuterol Sulfate (Ventolin Aerosols) 2.5 mg INHALATION Q2H PRN PRN PRN Reason: SOB/Wheezing Dextrose (D50w Syringe) 0 gm IV X1 PRN; Protocol PRN Reason: Hypoglycemia Ergocalciferol (Vitamin D) 50,000 unit PO FR [facility] Last Admin: 02/09/20 09:55 Dose: 50,000 unit Documented by: Glucagon () 1 mg IM .X1 PRN PRN Reason: Hypoglycemia Guaifenesin (Robitussin) 20 ml PO Q4H PRN PRN PRN Reason: COUGH Hydralazine HCl (Apresoline Iv) 10 mg IV Q4H PRN PRN PRN Reason: SBP > 160 Sodium Chloride () 500 mls @ 15 mls/hr IV PRN PRN PRN Reason: Blood Transfusion Last Infusion: 02/06/20 22:22 Dose: Infused Documented by: Sodium Chloride () 250 mls @ 15 mls/hr IV .[id number] PRN PRN Reason: Saline Flush Last Infusion: 02/09/20 10:35 Dose: 15 mls/hr Documented by: Sodium Chloride () 250 mls @ 15 mls/hr IV .[id number] PRN PRN Reason: Additional IVPB Infusion Pantoprazole Sodium 40 mg/ (Sodium Chloride) 110 mls @ 330 mls/hr IV Q12 [facility] Last Infusion: 02/09/20 10:35 Dose: Infused Documented by: Insulin Glargine (Lantus (Bkc)) 30 units SC BID [facility] Last Admin: 02/09/20 09:55 Dose: 30 units Documented by: Insulin Human Lispro (Humalog Kwikpen (Bk)) 5 unit SC TIDAC [facility] Last Admin: 02/09/20 09:54 Dose: 5 units Documented by: Insulin Human Lispro (Humalog Kwikpen (Bkc)) 0 unit SC ACHS [facility]; Protocol Last Admin: 02/09/20 08:34 Dose: Not Given Documented by: Levothyroxine Sodium (Synthroid) 150 mcg PO DAILY@0600 [facility] Last Admin: 02/09/20 05:10 Dose: 150 mcg Documented by: Midodrine (Proamatine) 5 mg PO TID [facility] Last Admin: 02/09/20 05:10 Dose: 5 mg Documented by: Morphine Sulfate () 2 mg IV Q3H PRN PRN PRN Reason: Pain Score 6-10/10 Nitroglycerin (Nitrostat) 0.4 mg SUBLINGUAL Q5M PRN PRN Reason: CARDIAC/CHEST PAIN Nutritional Formula (Lactose Free) (Glucerna Shake) 120 ml PO 4X/DAY [facility] Last Admin: 02/09/20 09:54 Dose: 120 ml Documented by: Oxycodone HCl (Oxyir) 5 mg PO Q4H PRN PRN PRN Reason: Pain Score 4-5/10 Prochlorperazine Edisylate (Compazine Iv) 5 mg IV Q4H PRN PRN PRN Reason: Breakthrough Nausea/Vomiting Senna/Docusate Sodium (Senokot-S, [place]-Colace) 2 tablet PO BID PRN PRN PRN Reason: Constipation Sodium Chloride () 10 - 40 ml IV UD PRN PRN Reason: SALINE FLUSH Last Admin: 02/09/20 10:03 Dose: 10 ml Documented by: Throat Lozenges (Cepacol Sore Throat Lozenge) 1 lozenge MUCOUS MEM Q2H PRN PRN PRN Reason: SORE THROAT Inpatient E&M: 85714 Disch Hosp
[2020-02-09 13:07] LABS: Pathologist Review Reviewed
[2020-02-09 13:08] LABS: Pathologist Review Reviewed
--- NOTE | 2020-02-09 14:04 | PN.RENAL_ITS ---
Patient Problems: Active and Suspected Problems (Last Reviewed 02/06/20 @ 10:[address] Umang Fierro MD) Hyperkalemia (Acute) Hypothyroidism (Acute) Hyperglycemia (Acute) Anemia (Acute) Acute kidney injury on CKD stage IV (Acute) Vascular catheter fitting or adjustment (Acute) Subjective: NO SOB NO ABD PAIN seen on dialysis tolerating well dialysis - Physical Exam Vitals/I&O's: Vital Signs Temp Pulse Resp BP Pulse Ox 98 F 68 14 84/46 L 96 02/09/20 12:34 02/09/20 12:34 02/09/20 12:34 02/09/20 12:34 02/09/20 12:34 Oxygen Delivery Method [5] Room Air Oxygen Delivery Method [4] Room Air Oxygen Delivery Method [3] Room Air Oxygen Delivery Method [2] Room Air Oxygen Delivery Method [1 ( Room Air Initial Baseline)] Oxygen Delivery Method Room Air Weight: 79.2 kg Body Mass Index (BMI) 29.5 Finger Stick Blood Glucose 406 Intake and Output for Last 24 Hours 02/07/20 02/08/20 02/09/20 23:59 23:59 23:59 Intake Total 470 / 650 1562.5 / 1562.5 1150 / 1150 Output Total 151 / 151 9800 / 9800 Balance 319 / 499 -8237.5 / -8237.5 1150 / 1150 General: Alert, Cooperative HEENT: Atraumatic, Normocephalic Neck: Supple Lungs: Clear to auscultation, Normal air movement Cardiovascular: Regular rate, Regular Rhythm, Normal S1, Normal S2 Abdomen: Bowel Sounds Present, Soft Laboratory Results 02/08/20 15:30: POC Glucose 62 L 02/08/20 17:45: POC Glucose 131 H 02/08/20 22:11: POC Glucose 129 H 02/09/20 06:10: WBC 1.0 L*, RBC 1.93 L, Hgb 5.7 L*, Hct 17.7 L, MCV 91.7, MCH 29.5, MCHC 32.2, RDW Std Deviation 64.6 H, RDW Coeff of Mary Alice 19.5 H, Plt Count 25 L*, MPV 11.0, Immature Gran % (Auto) 0.000, Neut % (Auto) 61.2, Lymph % (Auto) 20.4, [place] % (Auto) 13.3 H, Eos % (Auto) 4.1, Baso % (Auto) 1.0, Absolute Neuts (auto) 0.6 L, Absolute Lymphs (auto) 0.20 L, Nucleated RBC % 0, Diff Path Review Reviewed 02/09/20 06:10: Sodium 137, Potassium 3.7, Chloride 103, Carbon Dioxide 28.0, Anion Gap 6, BUN 59 H, Creatinine 2.90 H, Estim Creat Clear Calc 13.66, Est GFR (MDRD) Af Amer 20 L, Est GFR (MDRD) Non-Af 17 L, BUN/Creatinine Ratio 20.3 H, Glucose 132 H, Calcium 9.0 02/09/20 06:10: Immature Plt Fraction 2.9, Retic Count 2.97 H, Immature Retic Fraction 6.10, Retic Hgb Equivalent 36.0 H 02/09/20 07:55: Blood Type A NEGATIVE, Antibody Screen NEGATIVE, Crossmatch See Detail 02/09/20 07:55: WBC 1.3 L*, Corrected WBC [employer], RBC 2.09 L, Hgb 6.3 L, Hct 19.2 L, MCV 91.9, MCH 30.1, MCHC 32.8, RDW Std Deviation 65.8 H, RDW Coeff of Mary Alice 19.6 H , Plt Count 30 L*, MPV 11.4, Immature Gran % (Auto) 0.800, Neut % (Auto) 63.8, Lymph % (Auto) 15.7 L, [place] % (Auto) 13.4 H, Eos % (Auto) 5.5 H, Baso % (Auto) 0.8, Absolute Neuts (auto) 0.8 L, Absolute Lymphs (auto) 0.20 L, Total Counted [employer], Neutrophils % (Manual) [employer], Band Neutrophils % [employer], Lymphocytes % (Manual) [employer], Monocytes % (Manual) [employer], Eosinophils % (Manual) [employer], Basophils % (Manual) [employer], Metamyelocytes % [employer], Myelocytes % [employer], Promyelocytes % [employer], Blast Cells % [employer], Plasma Cell % (Manual) [employer], Other Cells % [employer], Nucleated RBC % 0, Nucleated RBCs/100 WBC [employer], Differential Comment [employer], Diff Path Review Reviewed, Hypersegmented Neuts [employer], Atypical Lymphocytes [employer], Reactive Lymphocytes [employer], Smudge Cells [employer], Toxic Granulation [employer], Toxic Vacuolation [employer], Dohle Bodies [employer], Rebecca Rods [employer], Platelet Estimate MKD DEC, Plt Morphology Comment [employer], RBC Morphology [employer], Polychromasia [employer], Hypochromasia 1+, Poikilocytosis [employer], Basophilic Stippling [employer], Anisocytosis [employer], Microcytosis [employer], Macrocytosis [employer], Spherocytes [employer], Sickle Cells [employer], Target Cells [employer], Tear Drop Cells [employer], Ovalocytes [employer], Stomatocytes [employer], Rugg[place] Bodies [employer], Kathi Cells [employer], Bite Cells [employer], Crenated Cell [employer], Acanthocytes (Spur) [employer], Rouleaux [employer], Schistocytes [employer] 02/09/20 07:55: Iron 64, TIBC 136 L, Iron Saturation 47.1, Folate 12.40 02/09/20 07:55: Vitamin B12 339 02/09/20 07:55: Haptoglobin Pending 02/09/20 07:55: Total Bilirubin 1.30 H, Direct Bilirubin 0.38 H, AST 22, ALT 17, Alkaline Phosphatase 78, Total Protein 5.5 L, Albumin 3.7, Globulin 1.8 L 02/09/20 08:28: POC Glucose 129 H Current Medications Acetaminophen (Tylenol) 650 mg PO Q6H PRN PRN PRN Reason: Pain Score 1-10/Temp > 100.7 F Last Admin: 02/06/20 22:52 Dose: 650 mg Documented by: Albuterol Sulfate (Ventolin Aerosols) 2.5 mg INHALATION Q2H PRN PRN PRN Reason: SOB/Wheezing Dextrose (D50w Syringe) 0 gm IV X1 PRN; Protocol PRN Reason: Hypoglycemia Ergocalciferol (Vitamin D) 50,000 unit PO FR [facility] Last Admin: 02/09/20 09:55 Dose: 50,000 unit Documented by: Glucagon () 1 mg IM .X1 PRN PRN Reason: Hypoglycemia Guaifenesin (Robitussin) 20 ml PO Q4H PRN PRN PRN Reason: COUGH Hydralazine HCl (Apresoline Iv) 10 mg IV Q4H PRN PRN PRN Reason: SBP > 160 Sodium Chloride () 500 mls @ 15 mls/hr IV PRN PRN PRN Reason: Blood Transfusion Last Infusion: 02/06/20 22:22 Dose: Infused Documented by: Sodium Chloride () 250 mls @ 15 mls/hr IV .[id number] PRN PRN Reason: Saline Flush Last Infusion: 02/09/20 10:35 Dose: 15 mls/hr Documented by: Sodium Chloride () 250 mls @ 15 mls/hr IV .[id number] PRN PRN Reason: Additional IVPB Infusion Pantoprazole Sodium 40 mg/ (Sodium Chloride) 110 mls @ 330 mls/hr IV Q12 [facility] Last Infusion: 02/09/20 10:35 Dose: Infused Documented by: Insulin Glargine (Lantus (Bk)) 30 units SC BID [facility] Last Admin: 02/09/20 09:55 Dose: 30 units Documented by: Insulin Human Lispro (Humalog Kwikpen ([facility])) 5 unit SC TIDAC [facility] Last Admin: 02/09/20 09:54 Dose: 5 units Documented by: Insulin Human Lispro (Humalog Kwikpen ([facility])) 0 unit SC ACHS [facility]; Protocol Last Admin: 02/09/20 08:34 Dose: Not Given Documented by: Levothyroxine Sodium (Synthroid) 150 mcg PO DAILY@0600 [facility] Last Admin: 02/09/20 05:10 Dose: 150 mcg Documented by: Midodrine (Proamatine) 5 mg PO TID [facility] Last Admin: 02/09/20 05:10 Dose: 5 mg Documented by: Morphine Sulfate () 2 mg IV Q3H PRN PRN PRN Reason: Pain Score 6-10/10 Nitroglycerin (Nitrostat) 0.4 mg SUBLINGUAL Q5M PRN PRN Reason: CARDIAC/CHEST PAIN Nutritional Formula (Lactose Free) (Glucerna Shake) 120 ml PO 4X/DAY [facility] Last Admin: 02/09/20 09:54 Dose: 120 ml Documented by: Oxycodone HCl (Oxyir) 5 mg PO Q4H PRN PRN PRN Reason: Pain Score 4-5/10 Prochlorperazine Edisylate (Compazine Iv) 5 mg IV Q4H PRN PRN PRN Reason: Breakthrough Nausea/Vomiting Senna/Docusate Sodium (Senokot-S, [place]-Colace) 2 tablet PO BID PRN PRN PRN Reason: Constipation Sodium Chloride () 10 - 40 ml IV UD PRN PRN Reason: SALINE FLUSH Last Admin: 02/09/20 10:03 Dose: 10 ml Documented by: Throat Lozenges (Cepacol Sore Throat Lozenge) 1 lozenge MUCOUS MEM Q2H PRN PRN PRN Reason: SORE THROAT Medical Necessity - Tobacco Use Smoking Status: Never smoker Assessment/Plan All Active Problems (Last Reviewed 02/06/20 @ 10:[address] 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 Continue midodrine for BP support. Avoid nephrotoxins. She has left IJ tunneled dialysis catheter. The patient will be transferred to [facility] for further evaluation of GI bleed after dialysis today.
[2020-02-09] MEDS: Heparin 10,000 UNITS/10 ML Vial IV (15:25)
[2020-02-09 15:26] LABS: Bedside Glucose 98 mg/dL (70-110)
--- NOTE | 2020-02-09 15:42 | DIALYSIS ---
4hr hemodialysis tx complete. pt tolerated well. vss, pt stable. net uf 1600ml (600ml blood volume removal.) left chest dressing changed, small amount of bleeding at suture site. gauze applied. no active bleeding noted. next tx prn per commissions coordinator.
--- NOTE | 2020-02-09 16:05 | NURSING ---
report called to icu nurse Kinga Loaiza [phone]
[2020-02-10 09:57] LABS: Haptoglobin 51 mg/dL (42-346)
== END 2020-02-09 15:55 | disposition short-term general hospital (02) | DRG 673 ==
LOC: ED 15:53 → PCU 17:44
PROVIDERS: Family Medicine; Internal Medicine; Internal Medicine Nephrology; Nurse Practitioner Family; Physician Assistant; Surgery; Admitting Provider Internal Medicine; Emergency Provider Emergency Medicine; PCP Family Medicine; Visit Provider Internal Medicine
PROC: 0JH63XZ Insertion of Tunneled Vascular Access Device into Chest Subcutaneous Tissue and Fascia, Percutaneous Approach (ICD-10-PCS; principal; 2020-02-06 14:15)
DX: I12.0 Hypertensive chronic kidney disease with stage 5 chronic kidney disease or end stage renal disease (principal); N18.6 End stage renal disease; N17.0 Acute kidney failure with tubular necrosis; K76.7 Hepatorenal syndrome; N25.81 Secondary hyperparathyroidism of renal origin; D62 Acute posthemorrhagic anemia; D61.818 Other pancytopenia; R18.8 Other ascites; I85.10 Secondary esophageal varices without bleeding; K92.1 Melena; E11.22 Type 2 diabetes mellitus with diabetic chronic kidney disease; K75.81 Nonalcoholic steatohepatitis (NASH); D63.1 Anemia in chronic kidney disease; E06.3 Autoimmune thyroiditis; I87.2 Venous insufficiency (chronic) (peripheral); E87.5 Hyperkalemia; E11.65 Type 2 diabetes mellitus with hyperglycemia; K74.60 Unspecified cirrhosis of liver; K31.819 Angiodysplasia of stomach and duodenum without bleeding; M81.0 Age-related osteoporosis without current pathological fracture; I95.3 Hypotension of hemodialysis; E55.9 Vitamin D deficiency, unspecified; Z66 Do not resuscitate; Z45.2 Encounter for adjustment and management of vascular access device; Z85.3 Personal history of malignant neoplasm of breast; Z90.11 Acquired absence of right breast and nipple; Z87.19 Personal history of other diseases of the digestive system; Z90.49 Acquired absence of other specified parts of digestive tract; Z87.442 Personal history of urinary calculi; Z79.4 Long term (current) use of insulin; Z79.83 Long term (current) use of bisphosphonates; Z79.890 Hormone replacement therapy; Z99.2 Dependence on renal dialysis; Z79.899 Other long term (current) drug therapy; Z86.73 Personal history of transient ischemic attack (TIA), and cerebral infarction without residual deficits
CPT/HCPCS: 36430; 36591; 49083; 71045; 76000; 76770; 80048; 80053; 80076; 82274; 82306; 82570; 82607; 82746; 82962; 83010; 83540; 83550; 83735; 83970; 84100; 84132; 84300; 84439; 84443; 84484; 85014; 85018; 85025; 85027; 85045; 86706; 86850; 86900; 86901; 86920; 86921; 86922; 86965; 87340; 90937; 93005; 97110; 97116; 97162; 97166; 97530; 99285; J7030; J7040; J7050; P9016; P9037; P9040; P9047; A4216; C1769; G0257; J0610; J2405

== ENCOUNTER → 2020-02-15 10:04 | Outpatient (CLI) | payer MEDICARE, SELFPAY ==
[2019-05-04 11:25] VITALS: BMI 31.4
[2020-02-01 17:39] VITALS: BMI 29.5
--- NOTE | 2020-02-15 10:12 | US_ITS ---
PROCEDURE: Ultrasound guided paracentesis. DATE OF EXAMINATION: 02/15/2020. INDICATION: Female, 74 years old. Ascites. PHYSICIAN: Rigo Britt M.D. TECHNIQUE: The risks, benefits, and alternatives to the procedure were explained to the patient. The specific risks of bleeding, infection, and damage to bowel were detailed and accepted. Witnessed informed consent was obtained. The abdomen was ultrasonographically surveyed. An appropriate pocket of fluid was identified at the right lower quadrant. The skin were cleaned and prepped in the usual sterile fashion. Using ultrasound guidance, the peritoneal cavity was accessed with a 5-Cape Verdean paracentesis needle/catheter system. The trocar was removed. A total of 4000 ml of blood tinged harsh-colored fluid were removed from the peritoneal cavity. The catheter was removed and a sterile dressing was applied. The procedure was well tolerated. US/Paracentesis with US IMPRESSION: Ultrasound guided paracentesis. Electronically Signed: Rigo Britt, at 11:22 EDT , Service support ,
[2020-02-15 10:30] VITALS: BP 103/50; BP 109/58; PULSE 101; PULSE 93; RESP 16; TEMP 37.2; O2SAT 93; O2SAT 99
[2020-02-15] MEDS: 0.9% Saline Lock 10 ML Syringe IV (10:45)
== END ==
PROVIDERS: Family Provider Family Medicine; PCP Family Medicine; Referring Provider Internal Medicine Gastroenterology; Visit Provider Internal Medicine Gastroenterology
DX: K74.60 Unspecified cirrhosis of liver (principal)
CPT/HCPCS: 49083; A4216

== ENCOUNTER → 2020-02-22 10:11 | Outpatient (CLI) | payer MEDICARE, SELFPAY ==
[2019-05-04 11:25] VITALS: BMI 31.4
[2020-02-01 17:39] VITALS: BMI 29.5
--- NOTE | 2020-02-22 10:13 | US_ITS ---
PROCEDURE: Ultrasound guided paracentesis. DATE OF EXAMINATION: 02/22/2020. INDICATION: Female, 74 years old. Ascites. PHYSICIAN: Rigo Britt M.D. TECHNIQUE: The risks, benefits, and alternatives to the procedure were explained to the patient. The specific risks of bleeding, infection, and damage to bowel were detailed and accepted. Witnessed informed consent was obtained. The abdomen was ultrasonographically surveyed. An appropriate pocket of fluid was identified at the right lower quadrant. The skin were cleaned and prepped in the usual sterile fashion. Using ultrasound guidance, the peritoneal cavity was accessed with a 5-Vincentian paracentesis needle/catheter system. The trocar was removed. A total of 3250 ml of harsh-colored fluid were removed from the peritoneal cavity. The catheter was removed and a sterile dressing was applied. The procedure was well tolerated. US/Paracentesis with US IMPRESSION: Ultrasound guided paracentesis. Electronically Signed: Rigo Britt, at 11:20 EDT , Service support ,
[2020-02-22 11:20] VITALS: BP 122/66; BP 129/57; BP 95/47; PULSE 106; PULSE 110; RESP 14; RESP 16; TEMP 37.1; O2SAT 100
== END ==
PROVIDERS: Family Provider Family Medicine; PCP Family Medicine; Referring Provider Internal Medicine Gastroenterology; Visit Provider Internal Medicine Gastroenterology
DX: K74.60 Unspecified cirrhosis of liver (principal)
CPT/HCPCS: 49083

== ENCOUNTER → 2020-02-29 10:13 | Outpatient (CLI) | payer MEDICARE, SELFPAY ==
[2019-05-04 11:25] VITALS: BMI 31.4
[2020-02-01 17:39] VITALS: BMI 29.5
--- NOTE | 2020-02-29 10:14 | US_ITS ---
PROCEDURE: Ultrasound guided paracentesis. DATE OF EXAMINATION: 02/29/2020. INDICATION: Female, 74 years old. Ascites. PHYSICIAN: Rigo Britt M.D. TECHNIQUE: The risks, benefits, and alternatives to the procedure were explained to the patient. The specific risks of bleeding, infection, and damage to bowel were detailed and accepted. Witnessed informed consent was obtained. The abdomen was ultrasonographically surveyed. An appropriate pocket of fluid was identified at the right lower quadrant. The skin were cleaned and prepped in the usual sterile fashion. Using ultrasound guidance, the peritoneal cavity was accessed with a 5-Ukrainian paracentesis needle/catheter system. The trocar was removed. A total of 3300 ml of harsh-colored fluid were removed from the peritoneal cavity. The catheter was removed and a sterile dressing was applied. The procedure was well tolerated. US/Paracentesis with US IMPRESSION: Ultrasound guided paracentesis. Electronically Signed: Rigo Britt, at 11:55 EDT , Service support ,
[2020-02-29 10:47] VITALS: BP 114/35; BP 94/43; BP 94/45; PULSE 85; PULSE 87; PULSE 91; RESP 16; TEMP 36.9; O2SAT 100; O2SAT 99
== END ==
PROVIDERS: Family Provider Family Medicine; PCP Family Medicine; Referring Provider Internal Medicine Gastroenterology; Visit Provider Internal Medicine Gastroenterology
DX: K74.60 Unspecified cirrhosis of liver (principal)
CPT/HCPCS: 49083

== ENCOUNTER → 2020-03-06 09:16 | Outpatient (CLI) | payer MEDICARE, SELFPAY ==
[2020-02-01 17:39] VITALS: BMI 29.5
[2020-03-06] MEDS: 0.9% Saline Lock 10 ML Syringe IV ×2 (09:30→14:12)
[2020-03-06 09:32] VITALS: BP 111/46; PULSE 103; RESP 16; TEMP 36.5; O2SAT 100; BMI 30.2
[2020-03-06 10:01] VITALS: BP 80/46; PULSE 93; RESP 16; TEMP 36.6; O2SAT 99
[2020-03-06 11:01] VITALS: BP 88/48; PULSE 88; RESP 16; TEMP 36.4; O2SAT 98
[2020-03-06 11:42] VITALS: BP 92/49; PULSE 91; RESP 16; TEMP 36.2
[2020-03-06 11:50] VITALS: BP 89/51; PULSE 90; RESP 14; TEMP 36.3
[2020-03-06 12:05] VITALS: BP 93/61; PULSE 88; RESP 14; TEMP 36.4
== END ==
PROVIDERS: PCP Family Medicine; Referring Provider Internal Medicine Nephrology; Visit Provider Internal Medicine Nephrology
DX: N18.6 End stage renal disease (principal); D64.9 Anemia, unspecified
CPT/HCPCS: 36430; 36591; 86850; 86900; 86901; 86920; 86922; J7040; P9016; A4216

== ENCOUNTER → 2020-03-07 10:16 | Outpatient (CLI) | payer MEDICARE, SELFPAY ==
[2019-05-04 11:25] VITALS: BMI 31.4
[2020-03-06 09:32] VITALS: BMI 30.2
--- NOTE | 2020-03-07 10:19 | US_ITS ---
PROCEDURE: Ultrasound guided paracentesis. DATE OF EXAMINATION: 03/07/2020.. INDICATION: Female, 74 years old. Ascites. PHYSICIAN: Rigo Britt M.D. TECHNIQUE: The risks, benefits, and alternatives to the procedure were explained to the patient. The specific risks of bleeding, infection, and damage to bowel were detailed and accepted. Witnessed informed consent was obtained. The abdomen was ultrasonographically surveyed. An appropriate pocket of fluid was identified at the left lower quadrant. The skin were cleaned and prepped in the usual sterile fashion. Using ultrasound guidance, the peritoneal cavity was accessed with a 5-Ugandan paracentesis needle/catheter system. The trocar was removed. A total of 4000 ml of harsh-colored fluid were removed from the peritoneal cavity. The catheter was removed and a sterile dressing was applied. The procedure was well tolerated. US/Paracentesis with US IMPRESSION: Ultrasound guided paracentesis. Electronically Signed: Rigo Britt, at 12:02 EDT , Service support ,
[2020-03-07 10:40] VITALS: BP 104/54; BP 89/41; BP 89/45; BP 90/37; BP 94/52; PULSE 104; PULSE 105; PULSE 108; PULSE 97; PULSE 99; RESP 16; TEMP 37.1; O2SAT 100; O2SAT 98; O2SAT 99
[2020-03-07] MEDS: 0.9% Saline Lock 10 ML Syringe IV (11:04)
== END ==
PROVIDERS: Family Provider Family Medicine; PCP Family Medicine; Referring Provider Internal Medicine Gastroenterology; Visit Provider Internal Medicine Gastroenterology
DX: K74.60 Unspecified cirrhosis of liver (principal)
CPT/HCPCS: 49083; A4216

== ENCOUNTER → 2020-03-14 10:16 | Outpatient (CLI) | payer MEDICARE, SELFPAY ==
[2019-05-04 11:25] VITALS: BMI 31.4
[2020-03-06 09:32] VITALS: BMI 30.2
--- NOTE | 2020-03-14 10:18 | US_ITS ---
PROCEDURE: Ultrasound guided paracentesis. DATE OF EXAMINATION: 03/14/2020. INDICATION: Female, 74 years old. Ascites. PHYSICIAN: Rigo Britt M.D. TECHNIQUE: The risks, benefits, and alternatives to the procedure were explained to the patient. The specific risks of bleeding, infection, and damage to bowel were detailed and accepted. Witnessed informed consent was obtained. The abdomen was ultrasonographically surveyed. An appropriate pocket of fluid was identified at the right lower quadrant. The skin were cleaned and prepped in the usual sterile fashion. Using ultrasound guidance, the peritoneal cavity was accessed with a 5-Tuvaluan paracentesis needle/catheter system. The trocar was removed. A total of 4250 ml of harsh-colored fluid were removed from the peritoneal cavity. The catheter was removed and a sterile dressing was applied. The procedure was well tolerated. US/Paracentesis with US IMPRESSION: Ultrasound guided paracentesis. Electronically Signed: Rigo Britt, at 12:19 EDT , Service support ,
[2020-03-14 11:45] VITALS: BP 100/58; BP 105/55; BP 95/53; PULSE 100; PULSE 101; PULSE 102; RESP 14; TEMP 37.1; O2SAT 100; O2SAT 99
== END ==
PROVIDERS: Family Provider Family Medicine; PCP Family Medicine; Referring Provider Internal Medicine Gastroenterology; Visit Provider Internal Medicine Gastroenterology
DX: K74.60 Unspecified cirrhosis of liver (principal)
CPT/HCPCS: 49083

== ENCOUNTER → 2020-03-21 12:11 | Outpatient (CLI) | payer MEDICARE, SELFPAY ==
[2019-05-04 11:25] VITALS: BMI 31.4
[2020-03-06 09:32] VITALS: BMI 30.2
--- NOTE | 2020-03-20 11:43 | CASEMGMT ---
RN Care Coordination Assessment: The following information was gathered via medical record review. Pt is a 74-yr-old female with comorbidities including: Cirrhosis (GUEVARA), CKD Stage IV, ESRD on dialysis, pancytopenia, Hypothyroidism d/t Flores's thyroidism, anemia, history of gastric vascular ectasia s/p argon plasma coag December 2019, history of breast cancer (in remission), TIA, DM2, benign essential HTN, chronic venous insufficiency, osteoporosis, esophageal varices, and dependent edema. U/S Guided Paracentesis. Last paracentesis: 03/14/20. 4,250 ml removed. Next scheduled paracentesis is 03/21/20. Pt receives Albumin after paracentesis if > 5 L fluid removed. Providers: PCP: Dr Bay. Next scheduled appt is 05/03/20. Hematology: Dr Price Gastroenterology: Dr Herzog. Paracentesis is being managed/ordered by Dr Herzog. Diagnositic Radiology: Dr Britt ([facility]) Endocrinology: Dr Barnes ([facility]) [phone]. Repeater Operator: Dr Edward Max ([facility]). Pt goes to [facility]. Office number is: [phone]. RN: Winnie. Per Winnie, pt last saw Dr Max December 05 and her next f/u appt is April 03. Winnie states pt has been compliant w/keeping her appts and compliant w/medications. She states is aware pt received HD in January but is not aware if pt is receiving on-going OP HD. Hospitalizations and OP Visits: Began receiving Paracentesis in 2018 @ [facility] after abd U/S showed Large Ascites 10/16/17 as well as Hepatic Steatosis, splenomegaly, mulitple gallbladder polyps, kidney calculus/calculi. Has received Paracentesis almost every week since then. 01/22-01/23/18: [facility] admission: Hyperkalemia 12/06/18: SDC: KENDY Port-A-Cath placed 04/13-04/14/19: [facility] Obs: Hyperkalemia 11/22-11/25/19: [facility] Obs admit: Hypotension following paracentesis 12/24/19: [facility] ED visit: Epigastric pain 01/08/20: [facility] ED visit: GIB 12/2019: [facility]/22/20: [facility] ED visit: Abnormal labs 01/31-02/09/20: [facility] PCU admission: hyperkalemia, COURTNEY on CKD stage IV, hepatorenal syndrome. Received HD for ESRD. Transferred to [facility] Insurance: [employer] [facility] Prescription Benefit: Yes Pharmacy: [facility] Living Will/HPOA: Has both LW and Healthcare POA, who is her nephew, Miko Castro. Copies of both on file @ [facility]. LNOK: Nephew--Miko Castro (POA), niece Shanthi Ma Pt has Paracentesis scheduled tomorrow 03/21/20 @ 1030. Attempted to contact pt at this time to discuss any concerns/needs/questions she may have and to discuss Plan of Care with pt. No answer. Message left for pt to return call to this EVAN ANDERSON. Phone number provided. F/U plan: EVAN ANDERSON to meet with pt tomorrow when she comes in for paracentesis and will assist w/any care coordination needed at that time. Lei HACKETT RN CM
--- NOTE | 2020-03-21 12:14 | US_ITS ---
PROCEDURE: Ultrasound guided paracentesis. DATE OF EXAMINATION: 03/21/2020.. INDICATION: Female, 74 years old. Ascites. PHYSICIAN: Rigo Britt M.D. TECHNIQUE: The risks, benefits, and alternatives to the procedure were explained to the patient. The specific risks of bleeding, infection, and damage to bowel were detailed and accepted. Witnessed informed consent was obtained. The abdomen was ultrasonographically surveyed. An appropriate pocket of fluid was identified at the right lower quadrant. The skin were cleaned and prepped in the usual sterile fashion. Using ultrasound guidance, the peritoneal cavity was accessed with a 5-Persian paracentesis needle/catheter system. The trocar was removed. A total of 4050 ml of harsh-colored fluid were removed from the peritoneal cavity. The catheter was removed and a sterile dressing was applied. The procedure was well tolerated. US/Paracentesis with US IMPRESSION: Ultrasound guided paracentesis. Electronically Signed: Rigo Britt, at 13:59 EDT , Service support ,
[2020-03-21 12:56] VITALS: BP 107/49; BP 114/42; BP 114/58; BP 98/75; PULSE 100; PULSE 105; PULSE 93; PULSE 99; RESP 16; RESP 18; TEMP 37.1; O2SAT 100; O2SAT 98; O2SAT 99
--- NOTE | 2020-03-21 16:18 | CASEMGMT ---
Addendum entered by Sree Allen 04/02/20 00:24: 03/28/20: 0900 RN Caustic Loader Follow Up: This RN CM has left 2 messages with Yana @ Dr Max's office since meeting w/pt on 03/22 but has not heard back re: pt's appt on Apr 03 and if pt still needs to keep this appt. EVAN ANDERSON spoke w/Ciera, nurse, @ [facility] (Pee was not available). -Per Ciera, the blood bank order control clerk @ [facility] has met w/pt. Pt has been instructed to follow a low Na+ diet (has not been instructed on specific amt of Mg to limit to) and does not have a specific amt of fluid restriction, although they generally instruct pt's to limit to about (6) 8 oz cups/day. -Current plan is for Dr Valdivia to continue to monitor/manage anemia. Dr Barnes: EVAN ANDERSON spoke w/Katherine @ Dr Barnes's office. Per Katherine, Dr Barnes was made aware pt states is taking her Synthroid every day as instructed. Dr Barnes states pt does not need to come in earlier than her next scheduled appt in April. Pt's last TSH was taken in November and was 2.7. Katherine states she left a VM message for pt but has not heard back from her, so she is not sure if pt received this message. Lei HACKETT RN CM Original Note: RN Care Coordination Assessment: The following information was gathered via medical record review, discussion w/patient at the bedside, and discussions w/several of the pt's physicians. Pt is a 74-yr-old female with comorbidities including: Cirrhosis (GUEVARA), CKD Stage IV, pancytopenia, Hypothyroidism d/t Flores's thyroidism, anemia, history of gastric vascular ectasia s/p argon plasma coag December 2019, history of breast cancer (in remission), TIA, DM2, benign essential HTN, chronic venous insufficiency, osteoporosis, esophageal varices, and dependent edema. U/S Guided Paracentesis. Pt has weekly Standing Order. Last paracentesis: Today 03/21/20: 4,050 ml removed Next scheduled paracentesis: 03/28/20. Pt receives Albumin after paracentesis if > 5 L fluid removed. Providers: PCP: Dr Bay. Next scheduled appt is 05/03/20. Hematology: Dr Price. Pt states was seeing Dr Price until January 2020. She states [facility] has been monitoring her anemia since she started dialysis in January and so she is no longer f/u w/Dr Priec. Gastroenterology: Dr Hrezog. Paracentesis is being managed/ordered by Dr Herzog. Diagnositic Radiology: Dr Britt ([facility]) Sonoscope Operator: Dr Edward Max ([facility]). Pt goes to [facility]. Office number is: [phone]. RN: Winnie. Per Winnie, pt last saw Dr Max December 05 and her next f/u appt is April 03. Winnie states pt has been compliant w/keeping her appts and compliant w/medications. Per Winnie, she was not aware that pt is getting OP HD. She states if pt is getting OP HD, pt will not need to continue to f/u with Dr Max @ the office, as pt will see the hydramatic specialist @ HD center. Once it was verified by this EVAN ANDERSON that pt is receiving OP dialysis @ [facility], VM message left with Winnie 03/21 to inform her pt is getting OP dialysis for COURTNEY at [facility] and this is being managed by Dr Valdivia. Endocrinology: ([facility]). Dr Barnes [phone]. Sees pt for Vit D Deficiency and Hypothyroidism. Per LINK Murphy commercial assistant @ Dr Barnes's office, Dr Barnes states pt has recently had a very high TSH level and it appears as pt is not taking her thyroid medication. Per Katherine, Dr Barnes states she has lost contact with pt/has not been able to reach her. When EVAN ANDERSON met with pt today at the bedside, she confirms correct med/dosage of Levothyroxine and that she taking it first thing in the morning every day. EVAN ANDERSON confirmed w/Katherine that they have the correct phone number for pt and that pt confirms she is taking Levothyroxine 100 mcg daily, as instructed. Katherine states pt has an appt scheduled w/Dr Barnes May 07, but that she will notify Dr Barnes that pt confirms is being compliant w/medication and will inquire if Dr Barnes would like to see pt sooner d/t elevated TSH level or see if she would like to have her TSH re-checked. [facility] ([facility]): Dialysis Center. [phone]. Call placed to EVAN Glasgow Clinical In Store Marketing Associate @ [facility]. Pt has temporary Dialysis catheter for COURTNEY. Pt receives dialysis MWF w/chair time of 1050 and is being managed by Dr Valdivia. Per Pee, there is no plan for permanent catheter to be placed unless ESRD would be determined. Pt has chronic anemia. [facility] labs weekly and giving Blood transfusions as needed. Hgb on 03/04/20 was 6.9. Pt received 2 units blood. Hgb 03/08: 8.0. Per pt, Dr Herzog's office called her this morning (03/21) and informed her she is to f/u with Dr Price's office re: anemia. Pt states she had been seeing Dr Price up until January but has not been f/u with him since starting dialysis since they have been monitoring/managing her anemia. Pt states she is confused as to why she would need to go back to Dr Price's office since her anemia is being monitored by [facility]. Informed pt this RN CM would f/u about this. Call placed back to Pee @ [facility] and he was made aware of request of Dr Herzog's office for pt to see Dr Price and pt's concerns about this. Pee states he will talk with Dr Valdivia to inquire if he will continue to follow pt for anemia. He states he will f/u with Dr Herzog' s office about this as well and will update pt tomorrow when she comes in for dialysis as to if she needs to make an appt with Dr Price. Call also placed to Ariadne, Nurse area operations manager @ Dr Price's office. She was made aware that Dr [facility] is [facility]. Ariadne confirms that if Dr Valdivia is agreeable to continuing to follow pt for anemia, that Dr Price would be agreeable with this as well and that pt does not need to f/u w/Dr Price at this time. Hospitalizations and OP Visits: Began receiving Paracentesis in 2018 @ [facility] after abd U/S showed Large Ascites 10/16/17 as well as Hepatic Steatosis, splenomegaly, mulitple gallbladder polyps, kidney calculus/calculi. Has received Paracentesis almost every week since then. 01/22-01/23/18: [facility] admission: Hyperkalemia 12/06/18: [facility]: KENDY Port-A-Cath placed 04/13-04/14/19: [facility] Obs: Hyperkalemia 11/22-11/25/19: [facility] Obs admit: Hypotension following paracentesis 12/24/19: [facility] ED visit: Epigastric pain 01/08/20: [facility] ED visit: GIB 12/2019: S/P argon plasma coag at [facility] for gastric vascular ectasia 01/22/20: [facility] ED visit: Abnormal labs 01/31-02/09/20: [facility] PCU admission: hyperkalemia, COURTNEY on CKD stage IV, hepatorenal syndrome. Received HD for ESRD. Transferred to [facility] Insurance: BLOVES [facility] Prescription Benefit: Yes Pharmacy: [facility]. Pt states she has no difficulty getting her medications Diet: Pt states she is to follow a high protein/low Na diet. Living Will/HPOA: Has both LW and Healthcare POA, who is her nephew, Miko Castro. Copies of both on file @ [facility]. LNOK: Nephew--Miko Castro (POA), nikia Ma SDOH: Health literacy: Pt able to read and write and able to be taught/understand instructions. Finances: Pt is retired. She denies any financial concerns/issues at this time. Housing: Pt lives alone in a 1-story condo with 1 step thru the garage. Independent w/ADL's and IADL's. DME: Pt has walker (uses on occasion), grab bars, and shower chair. She denies need for further DME. Transportation: Pt states owns her own car, drives self, and has no transportation concerns. Food: Pt states her niece or nephew get her groceries for her and often will bring prepared meals or leftovers to her so all she has to do is heat them up in the microwave. She states she will occasionally make small meals, such as plata an egg. She will go to drive-thru for meals at times as well. Support: Pt states her nephew, Miko, and niece, Shanthi, are both very supportive and helpful. Miko and his live about 5 minutes away. Miko is not currently working and able to help her any time she needs and Shanthi lives about 15 min away. She also states she has a lot of friends. Alcohol/smoking Hx: No history of ETOH use and pt does not smoke. Pt states she is starting to feel very drained with all of the doctor visits, procedures, and appts that she has to go to. Allowed pt time to express her concerns and emotional support provided. Pt also states she is unsure about plan for dialysis and if she will be getting this long-term. She states she did inquire of Dr Valdivia about this, but did not know if Dr Valdivia understood what she was asking and she still feels unclear as to the plan. EVAN ANDERSON encouraged pt to talk with nurse @ [facility] and let them know of her questions/concerns so this can be relayed to Dr Valdivia and encouraged pt to have further discussion with Dr Valdivia so she can have a better understanding of plan. Current Plan of Care: -Pt has standing order for weekly paracentesis w/albumin based on amount of ascitic fluid removed. (If > 5 L removed, pt receives Albumin) -[facility] to [facility]. -Pee @ [facility] to f/u with pt 03/22 when pt goes in for dialysis to inform pt if she needs to f/u w/Dr Price for anemia or if Dr Valdivia going to continue to follow pt for anemia. -Dr Barnes to f/u with pt re: elevated TSH Follow Up: -Review pt's home medication list w/pt and confirm pt has understanding of medications. Provide medication teaching as needed-Review Low Na diet with pt and ensure she has good understanding of this. -Discuss low Na diet with pt and ensure she has good understanding -F/U w/Dr Max's office to inquire if pt to keep appt on 04/03 since she is now being followed by Dr Valdivia @ [facility]. -EVAN ANDERSON to meet with pt at next scheduled paracentesis appt when she comes in for paracentesis and will assist w/any care coordination needed at that time. Pt provided w/this EVAN ANDERSON's contact number as well as Lead CM, Kaylynn Rodríguez's contact number and informed she can contact RN CM's if she needs any assistance. Pt voices appreciation. Lei ACOSTAN EVAN CM
--- NOTE | 2020-04-24 14:42 | CASEMGMT ---
EVAN ANDERSON Care Coordination Follow-Up: Call placed to pt to discuss any concerns/questions/needs she may have. No answer. VM message left for her to return call if there is anything RN MONICA can assist with. Phone number for EVAN ANDERSON financial risk manager, Kaylynn Rodríguez, provided. EVAN ANDERSON to continue to be available and assist w/care coordination as needed. Lei HACKETT RN, CM
== END ==
PROVIDERS: Family Provider Family Medicine; PCP Family Medicine; Referring Provider Internal Medicine Gastroenterology; Visit Provider Internal Medicine Gastroenterology
DX: K74.60 Unspecified cirrhosis of liver (principal)
CPT/HCPCS: 49083

== ENCOUNTER → 2020-03-28 10:19 | Outpatient (CLI) | payer MEDICARE, SELFPAY ==
[2019-05-04 11:25] VITALS: BMI 31.4
[2020-03-06 09:32] VITALS: BMI 30.2
--- NOTE | 2020-03-28 10:21 | US_ITS ---
PROCEDURE: ULTRASOUND GUIDED PARACENTESIS CLINICAL HISTORY: Female, 74 years old. ASCITES CONSENT: The risks, benefits and alternatives to the procedure were explained to the patient, and the patient agreed to the procedure and signed the consent. 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 PROCEDURE/TECHNIQUE: The risks, benefits, and alternatives to the procedure were explained to patient, and the patient agreed to the procedure and signed a consent form for the procedure. TECHNIQUE: Under the ultrasound guidance using sterile technique and after infiltration of the skin and subcutaneous soft tissues with 10 mL of lidocaine 1% a 5 Slovak drainage catheter is introduced in the lower part of the abdomen. 5000 mL of fluid were removed sample sent to lab for evaluation. The patient tolerated the procedure there was no immediate complication. FINDINGS: FLUID PRE-PROCEDURE There is posterior enhancement. The findings appear anechoic. There is no loculation. FLUID POST-PROCEDURE Amount of fluid drained: 5000 ml. US/Paracentesis with US IMPRESSION: Successful ultrasound-guided paracentesis. Electronically Signed: Samra Martinez, at 12:43 EDT Tel , Service support ,
[2020-03-28 10:54] VITALS: BP 112/52; BP 122/50; BP 81/35; BP 83/34; BP 83/42; BP 87/32; BP 91/40; BP 92/45; PULSE 101; PULSE 102; PULSE 94; PULSE 96; PULSE 97; PULSE 98; RESP 16; RESP 18; TEMP 36.8; O2SAT 100; O2SAT 94; O2SAT 95; O2SAT 97; O2SAT 98
--- NOTE | 2020-03-28 11:13 | NURSING ---
Pt expressing concerns about continual dialysis. Dialysis causes a lot of stressors for pt frequently. Pt considering asking family to help with transportation to and from different appointments.
--- NOTE | 2020-03-28 12:00 | CASEMGMT ---
Addendum entered by Sree Allen 04/05/20 18:22: 04/02: Received VM message from Mara @ Dr Max's office, stating pt no longer needs to continue to see Dr Max since Dr Valdivia is seeing pt @ HD. Mara states they will notify pt of same and cancel the appt pt has with Dr Max for 04/03. Addendum entered by Sree Allen 04/02/20 00:52: 109: EVAN ANDERSON Follow Up: Call placed to Pee at [facility] and discussed pt's issues/concerns pt voiced on 03/28 Pee states the following: -he will work on getting an appt scheduled for pt and her nephew to meet with Dr Valdivia. -pt may be a candidate for Home HD and he will discuss this with Dr Valdivia. -pt's most recent Hgb was 7.6. Plan is for 1 U PRBC's, EGD by Dr Herzog once Hgb is > 8, and referral to Dr Price. Anemia to continue to be managed by Dr Valdivia. Pee states he will notify pt of this plan. Pee also made aware this RN MONICA has been unsuccessful reaching Yana @ Dr Max's office re: her appt on Apr 03. He states he will check into this and will let pt know if this appt is rescheudled or cancelled, as he does not think this appt will be needed d/t pt seeing Dr Valdivia @ HD. Original Note: EVAN ANDERSON Care Coordination: Met with pt after paracentesis completed today 03/28. Pt had 4,950 ml ascitic fluid removed and does not require Albumin infusion. Next scheduled US Guided Paracentesis: 04/04/20 Dr Valdivia/Mariano: Pt states she has not spoken with Dr Valdivia since meeting with EVAN ANDERSON last week re: her questions about ongoing HD and treatment plan. Pt stated she would like to schedule a time to talk with Dr Valdivia when her nephew, Miko, can be present to discuss things with him as well. She also voiced several concerns/issues about going to dialysis, stating she is very cold during her treatment, even w/extra blankets, has a difficult time getting comfortable and feels miserable most of the time while being there. Pt states, going 3 days a week for 4 hours a day is just too much. Is this something I'm going to have to always be on? She stated, I just don't know how much more of it I can handle. Pt made aware EVAN ANDERSON would reach out to Pee @ [facility] and inform him of her concerns/questions. Dr Barnes: Pt states she did receive a VM message from Dr Barnes's office informing her to keep the scheduled appt in April (appt does not need to be made sooner). Appointments: Dr Bay: Pt states she has an appt on May 04 @ 1010 and she will be @ HD at that time. Pt plans to call Dr Bay to reschedule this on her own. Dentist: has an appt on Apr 30. Diet: Pt states she tries to follow a low Na+, low K+, and High Protein diet (she drinks a Protein shake on days of dialysis). She tries not to add any extra salt to her foods. Her nephew and his will often prepare meals for her and she states they are aware of her dietary restrictions. She will on occasion get a Roast beef sandwich @ [employer] (950 mg Na+), a [employer] Hamburger (631 mg Na+), or [employer] (560 mg Na+). She usually drinks water, decaf tea, or coffee. She states she has met with a telesales team leader @ [facility] but would like additional information/ideas on what foods she can eat and which ones to avoid. She states no one has spoken with her about limiting fluid intake. Medications: The following taken from pt's medication list and pt states is current: Pt able to state what she takes each of these medications for and seems to have a good understanding of them. Lantus 26 U SQ every AM Lantus 36 U SQ every PM Furosemide 40 mg PO daily Levothyroxine 100 mcg PO daily Pantoprazole 40 mg PO BID Midodrine 10 mg PO 30 min before dialysis, on dialysis days only--MWF F/U plan: Diet: continue dietary teaching. Dialysis: F/U with pt re: meeting with Dr Valdivia and discuss any further questions/concerns pt may have Appointments: Continue to help coordinate appts as needed. Pt states does not have any additional needs/concerns/questions today . RN CM to continue to meet with pt and be available for any care coordination needs pt may have. Lei BSN RN CM
[2020-03-28 12:46] VITALS: BP 90/39; PULSE 98; RESP 18; TEMP 36.7; O2SAT 100; BMI 31.1
[2020-03-28] MEDS: Albumin Human 25% (50 mL) 12.5 GM/50 ML IV.SOLN IV (13:40)
[2020-03-28 14:28] VITALS: BP 87/48; PULSE 100; RESP 18; O2SAT 100
== END ==
PROVIDERS: Family Provider Family Medicine; PCP Family Medicine; Referring Provider Internal Medicine Gastroenterology; Visit Provider Internal Medicine Gastroenterology
DX: K74.60 Unspecified cirrhosis of liver (principal)
CPT/HCPCS: 96365; 36591; 49083; 86850; 86900; 86901; 86920; 86922; P9047; A4216

== ENCOUNTER → 2020-03-29 07:42 | Outpatient (CLI) | payer MEDICARE, SELFPAY ==
[2020-03-28 12:46] VITALS: BMI 31.1
[2020-03-29 07:56] VITALS: BP 92/44; PULSE 102; RESP 16; TEMP 36.4; O2SAT 100; BMI 28.5
[2020-03-29 08:10] VITALS: BP 92/44; PULSE 102; RESP 16; TEMP 36.4; O2SAT 100
[2020-03-29 08:25] VITALS: BP 82/46; PULSE 100; RESP 16; TEMP 36.6
[2020-03-29 09:25] VITALS: BP 89/46; PULSE 96; RESP 16; TEMP 36.6; O2SAT 100
[2020-03-29 10:04] VITALS: BP 98/45; PULSE 96; RESP 16; TEMP 36.6
== END ==
PROVIDERS: PCP Family Medicine; Referring Provider Internal Medicine Nephrology; Visit Provider Internal Medicine Nephrology
DX: K74.60 Unspecified cirrhosis of liver (principal); D64.9 Anemia, unspecified; K92.1 Melena
CPT/HCPCS: 36430; 86850; 86900; 86901; 86920; 86922; J7040; P9016; A4216

== ENCOUNTER → 2020-04-03 07:32 | Outpatient (CLI) | payer MEDICARE, SELFPAY ==
[2020-03-29 07:56] VITALS: BMI 28.5
[2020-04-02 14:19] LABS: Absolute Lymphocyte Count 0.33 X10^3/uL (0.83-4.51); Absolute Neutrophil Count 1.9 X10^3/uL (2.0-7.7); Basophil# 0.02 X10^3/uL; Basophil% 0.8 % (0-1); Eosinophil# 0.12 X10^3/uL; Eosinophils% 4.7 % (0-5); Hematocrit 22.8 % (37-47); Hemoglobin 7.4 g/dL (12.0-15.0); Lymphocyte # 0.33 X10^3/ul (4.0); Lymphocyte % 12.9 % (19-41); Mean Corp Hgb Conc 32.5 g/dL (32-36); Mean Corpuscular Hgb 34.6 pg (27.0-32.0); Mean Corpuscular Volume 106.5 fL (81-99); Mean Platelet Vol. 10.2 fl (6.2-12.0); Monocyte% 7.8 % (0-10); NRBC Flagged by Analyzer 0 % (0-5); Neutrophil # 1.87 X10^3/uL (2.7-7.7); POSITIVE COUNT YES; POSITIVE DIFFERENTIAL YES; POSITIVE MORPHOLOGY YES; Platelet Count 71 K/mm3 (150-450); RBC Distribution Width CV 18.9 % (11.6-14.6); RBC Distribution Width SD 73.5 fl (35.1-43.9); Red Blood Count 2.14 M/mm3 (4.2-5.4); White Blood Count 2.6 K/mm3 (4.4-11.0)
[2020-04-02 14:20] LABS: Differential Indicated SCAN CRITERIA MET
[2020-04-02 14:34] LABS: Ferritin 362 ng/mL (8-252); Iron Binding Capacity,Total 237 ug/dL (250-450)
[2020-04-02 14:35] LABS: Vitamin B12 733 pg/mL (211-911)
[2020-04-02 14:44] LABS: Differential Comment SCANNED; Macrocytosis 2+
[2020-04-03 04:44] LABS: Haptoglobin < 10 mg/dL (42-346)
[2020-04-03 08:06] VITALS: BP 121/56; PULSE 100; RESP 16; TEMP 36.8; O2SAT 99; BMI 31.4
[2020-04-03 08:37] VITALS: BP 121/56; PULSE 100; RESP 18; TEMP 36.8; O2SAT 99
[2020-04-03 08:52] VITALS: BP 90/51; PULSE 95; RESP 16; TEMP 37.2; O2SAT 99
[2020-04-03 09:52] VITALS: BP 105/54; PULSE 90; RESP 18; TEMP 36.4; O2SAT 99
[2020-04-03 10:40] VITALS: BP 108/57; PULSE 94; RESP 16; TEMP 36.9; O2SAT 98
[2020-04-03] MEDS: 0.9% NaCl PICC Flush IV (10:48)
[2020-04-03 14:54] LABS: Pathologist Review Reviewed
== END ==
PROVIDERS: PCP Family Medicine; Referring Provider Internal Medicine Hematology & Oncology; Visit Provider Internal Medicine Hematology & Oncology
DX: N18.4 Chronic kidney disease, stage 4 (severe) (principal); D63.1 Anemia in chronic kidney disease; D64.9 Anemia, unspecified; D61.818 Other pancytopenia; K74.60 Unspecified cirrhosis of liver; R18.8 Other ascites; K92.2 Gastrointestinal hemorrhage, unspecified; D73.1 Hypersplenism
CPT/HCPCS: 36430; 82607; 82728; 83010; 83550; 85025; 86850; 86880; 86900; 86901; 86920; 86922; J7040; P9016; A4216

== ENCOUNTER → 2020-04-04 10:13 | Outpatient (CLI) | payer MEDICARE, SELFPAY ==
[2019-05-04 11:25] VITALS: BMI 31.4
[2020-04-03 08:06] VITALS: BMI 31.4
--- NOTE | 2020-04-04 10:16 | US_ITS ---
PROCEDURE: Ultrasound guided paracentesis. DATE OF EXAMINATION: 04/04/2020. INDICATION: Female, 74 years old. Ascites. PHYSICIAN: Rigo Britt M.D. TECHNIQUE: The risks, benefits, and alternatives to the procedure were explained to the patient. The specific risks of bleeding, infection, and damage to bowel were detailed and accepted. Witnessed informed consent was obtained. The abdomen was ultrasonographically surveyed. An appropriate pocket of fluid was identified at the left lower quadrant. The skin were cleaned and prepped in the usual sterile fashion. Using ultrasound guidance, the peritoneal cavity was accessed with a 5-Danish paracentesis needle/catheter system. The trocar was removed. A total of 5650 ml of harsh-colored fluid were removed from the peritoneal cavity. The catheter was removed and a sterile dressing was applied. The procedure was well tolerated. US/Paracentesis with US IMPRESSION: Ultrasound guided paracentesis. Electronically Signed: Rigo Britt, at 12:26 EDT , Service support ,
[2020-04-04 11:30] VITALS: BP 106/47; BP 87/48; BP 95/42; BP 98/53; PULSE 106; PULSE 107; PULSE 96; PULSE 98; RESP 14; O2SAT 100; O2SAT 97; O2SAT 99
[2020-04-04] MEDS: Albumin Human 25% (50 mL) 12.5 GM/50 ML IV.SOLN IV (11:39)
[2020-04-04 11:40] VITALS: BP 77/46; PULSE 96; RESP 16; TEMP 36.9; O2SAT 97; BMI 30.3
--- NOTE | 2020-04-05 12:00 | CASEMGMT ---
Addendum entered by Sree Allen 04/12/20 12:08: Correction: Pt was informed Na+ restriction is generally 2,000 mg (not 1,500 mg) and fluid restriction is generally 1,500 ml (not 2,000 ml) Addendum entered by Sree Allen 04/07/20 17:18: EVAN ANDERSON Woodyard Crane Operator Follow-up: Call placed to Pee @ [facility] 04/04: -Reviewed Lantus dose. He was updated pt states Lantus is both 26 units in AM and 26 units in PM. -Verification received pt is getting Calcitrolol 0.5 mcg po on HD days MWF while pt @ [facility]. -He has reached out to Dr Valdivia re: pt's wishes to schedule an appt with him when her nephew, Miko, can be present, to discuss on-going treatment plan for HD. Appt has not been scheduled yet but he will continue to work on this. -Anemia: Pt had an appt with Dr Price and has received a couple of blood transfusions this past week. Hgb's have been: 04/01: 8.2, 04/03: 9.0. Pee knew plan was for EGD once Hgb >8 but was not aware of this being scheduled yet. Pee notified pt reports she is scheduled for EGD on Sunday 04/08 early AM. -Pee notified pt would like to meet with the metal room dental technician @ [facility] again for further education, meal planning ideas. He states he will work on this also. Pee states appreciation of updates and care coordination. Lei HACKETT RN, CM Original Note: EVAN ANDERSON Care coordination: 04/04: Pt had U/S-guided paracentesis w/removal of 5,650 ml ascitic fluid and required Albumin infusion per PRN order. Met with pt while receiving Albumin infusion. Anemia: Pt states she saw Dr Price on Wednesday and had blood transfusion (1 unit) yesterday before going to Dialysis. Pt states she is scheduled to have an EGD done @ [facility] in [place] on WednesdayApr 08. Her niece will be providing transportation to the EGD and to dialysis on Wednesday as her nephew will be out of town. OP HD @ [facility]: Pt reports she has not spoken with Dr Valdivia yet re: ongoing HD/treatment plan and an appt has not been scheduled yet. She still wishes to have this discussion with him and for her nephew to be present. Pt states her niece gave her a new blanket that is very soft and cozy that she has been taking to dialysis. This helps keep her much warmer, she is more comfortable, and HD is more tolerable now. Dr Max/Nephrology: Pt states Dr Max's office did contact her to inform her she longer needs to f/u with Dr Max now that she is seeing Dr Valdivia @ OP HD. Medication: Noted Lantus dose from [facility] different than pt's home medication list. Reviewed medications w/pt at this time and she confirms she takes: Lantus 26 units SQ in AM and 26 units SQ in PM Pt states she is now receiving Vit D @ [facility] on days she receives HD MWF Diet: As per previous conversation, pt states she would like to meet with the Stock Hanger again @ [employer] for further dietary education. Pt states she does not have smartphone or a computer and is not able to look up nutrition content. She is interested in handouts/literature and would like meal planning ideas. Pt states she has not been given a specific amt of Na+ or fluid restriction. Pt informed that generally a 1,500 mg Na+ restriction and 2,000 ml fluid restriction is advised. Stressors/support: Pt states with all of these appts and procedures that she has been very busy, but is keeping her spirits up, and is thankful for her nephew/niece's support. She states her only days off are on Tuesdays and she tries to relax and take time for herself those days. F/U Plan: EVAN ANDERSON will f/u w/[facility] to clarify/update medication list and to help coordinate mtg w/pt, her nephew, and Dr Valdivia re: ongoing tx/plan, and notify them of pt's interest with further Dietary teaching. EVAN ANDERSON will continue to be available and assist w/care coordination as needed. Lei HACKETT RN, CM
== END ==
LOC: US 10:13 → MEDOUTP 11:19
PROVIDERS: Family Provider Family Medicine; PCP Family Medicine; Referring Provider Internal Medicine Gastroenterology; Visit Provider Internal Medicine Gastroenterology
DX: K74.60 Unspecified cirrhosis of liver (principal)
CPT/HCPCS: 96365; 96366; 49083; P9047; A4216

== ENCOUNTER 2020-04-05 22:24 | Inpatient (IN) | payer MEDICARE, SELFPAY ==
[2020-04-05 22:24] VITALS: BP 88/45; PULSE 95; RESP 16; TEMP 37.3; O2SAT 100
--- NOTE | 2020-04-05 22:45 | CT_ITS ---
STUDY: CT ABDOMEN AND PELVIS WITHOUT CONTRAST REASON FOR EXAM: Female, 74 years old. BACK AND LLQ PAIN AFTER DIALYSIS TODAY AND PT HAD LT SIDED PARACENTESIS ON WEDNESDAY -- HX:BREAST CANCER WITH RT MASECTOMY,DIABETES,HTN,HYPOTHYROID-MARIELLE''S,CKD STAGE 4,CIRRHOSIS-GUEVARA,KIDNEY STONES WITH STENTS,APPENDECTOMY RADIATION DOSAGE (If Supplied By Facility): CTDIvol = ( 14.00 ) mGy, DLP = ( 710.18 ) mGycm TECHNIQUE: Transaxial images were obtained from the dome of the diaphragm to the symphysis pubis without oral contrast, and without intravenous contrast. Sagittal and coronal images were reconstructed. Individualized dose optimization techniques were used for this CT. COMPARISON: 12/24/2019 FINDINGS: There is a large hiatal hernia containing portions of the stomach as well as ascites. Normal liver. There is cholelithiasis. The spleen is enlarged. Normal pancreas. Normal bilateral adrenal glands. The kidneys are atrophic. There are bilateral kidney stones without hydronephrosis. There is thickening of the stomach suggesting gastritis. Normal small intestine. There are multiple colonic diverticula consistent with diverticulosis. There is NO diverticulitis. There is non-visualization of the appendix. Normal abdominal aorta. Normal inferior vena cava. Normal retroperitoneum. There is sediment or old blood in the urinary bladder. Uterus is intact but atrophic. There is a large amount of ascites. There is soft tissue thickening of the LEFT side of the greater omentum which could indicate hematoma possibly related to recent paracentesis. This measures a maximum of 8 cm. There is a large ventral hernia. Normal osseous structures. CT/Abdomen/Pelvis without Cont IMPRESSION: There is a large hiatal hernia containing portions of the stomach as well as ascites. There is cholelithiasis. The spleen is enlarged. The kidneys are atrophic. There are bilateral kidney stones without hydronephrosis. There is thickening of the stomach suggesting gastritis. Normal small intestine. There are multiple colonic diverticula consistent with diverticulosis. There is NO diverticulitis. There is non-visualization of the appendix. There is sediment or old blood in the urinary bladder. There is a large amount of ascites. There is soft tissue thickening of the LEFT side of the greater omentum which could indicate hematoma possibly related to recent paracentesis. This measures a maximum of 8 cm. There is a large ventral hernia. Electronically Signed: Madi Castrejon MD at 0:29 EDT , Service support ,
--- NOTE | 2020-04-05 22:49 | ED.DCSUM_ITS ---
History of Present Illness Chief Complaint: Abd Pain Informant: Patient - Abdominal Pain/Flank Pain Onset: Yesterday Context: Gradual Onset Timing: Continuous Quality: Aching Location: LLQ Current Severity: Mild Maximum Severity: Moderate Worsened by: Movement, - - Palpation affected area Relieved by: Remaining Still - Nausea/Vomiting/Emesis GI Symptom: Negative for: Nausea, Vomiting - Diarrhea/Melena/Hematochezia GI Symptom: Diarrhea, Melena - Off and on chronically, not today or yesterday. Negative for: Hematochezia Stool Quality: Loose - Chronic Associated Symptoms: Negative for: Dysuria, Frequency, Hematuria, Urgency Narrative: Dialysis patient also with Forrester cirrhosis, she has been getting regular hemodialysis, and she has had paracentesis for about 2 years, her last one was yesterday. Subsequently gradually afterward she developed left lower quadrant pain which she has never had before. She denies any fevers, chills, or other symptoms but at home she checked her blood pressure and it was low. She has not been symptomatic from that. She had a blood transfusion a couple days ago, she has had explorations for occult GI bleeding in the past, she has had no melena recently but is scheduled for EGD 2 days from now. 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 (2) Anemia Status: Chronic (3) Hypothyroidism Status: Chronic (4) Benign essential HTN Status: Chronic (5) CKD (chronic kidney disease) stage 4, GFR 15-29 ml/min Status: Chronic (6) DM2 (diabetes mellitus, type 2) Status: Chronic (7) Dependent edema Status: Chronic (8) Pancytopenia Status: Chronic (9) Secondary hyperparathyroidism Status: Chronic (10) TIA (transient ischemic attack) Status: Chronic (11) Venous insufficiency (chronic) (peripheral) Status: Chronic Past Medical History - Allergies and Home Meds Allergies/Adverse Reactions: Allergies clarithromycin [From Biaxin] Allergy (Verified 02/01/20 15:16) Unknown iodine Allergy (Verified 02/01/20 15:16) Unknown Primary Care Physician: Nicola Bay MD [Primary Care Provider] - Surgical History: mastectomy, - - Patient has had a right mastectomy and appendectomy. She is a Ab0. Right IJ Port-A-Cath Smoking Status: Never smoker - Family History Sibling Family History: Family History (Last Reviewed 01/04/20 @ 10:[address] Prem Barnes MD) Father CHF (congestive heart failure) Heart disease Mother CVA (cerebral vascular accident) Family History: Reports: Cancer Review of Systems General: Denies: Chills, Fever, Malaise, Sweats Eyes: Denies: Visual changes - bilaterally, Diplopia ENT: Denies: Rhinorrhea, Sore throat Cardiovascular: Denies: Chest pain, Palpitations Respiratory: Denies: Dyspnea, Cough, Dyspnea on exertion Gastrointestinal: Reports: Abdominal pain, Diarrhea. Denies: Nausea, Vomiting, Melena, Hematochezia Genitourinary: Denies: Dysuria, Hematuria, Frequency Musculoskeletal: Denies: Back pain, Swelling, Extremity Pain Skin: Denies: Rash, Wounds Neurological: Denies: Headache, Weakness, Numbness Physical Exam Vital Signs/Narrative: Vital Signs Temp Pulse Resp BP Pulse Ox 04/05/20 22:26 99.1 F 95 16 88/45 L 100 04/05/20 22:24 99.1 F 95 16 88/45 L 100 Inital Vital Signs reviewed: Yes General: Well nourished, Well developed, No Acute Distress Head: Normocephalic, Atraumatic Eyes: Perrl, EOMI ENT: Moist mucous membranes, No rhinorrhea Neck: Supple, Nontender, No lymphadenopathy Cardiovascular: Regular rate, Regular rhythm, No murmurs. Negative for: Tachycardia Respiratory: No distress, CTA bilaterally, Chest nontender Abdomen: Soft, Nondistended, Normal bowel sounds, Tender - LLQ only, - - Minor nontender bruising around paracentesis site left mid abdomen. No discharge expressible.. Negative for: Guarding, Rebound tenderness Back: Nontender, Normal Inspection Extremities: Nontender, Edema - 2+ BLE. Negative for: Calf Tenderness Skin: Normal color, No rash, No Trauma Neurological: Alert, Oriented x3, Cranial nerves II-XII grossly intact, Normal Strength, Normal Sensation Psychological: Normal affect, Normal Mood Diagnostic/Tx/Re-eval Impressions Abdomen/Pelvis CT 04/05/20 22:45 IMPRESSION: There is a large hiatal hernia containing portions of the stomach as well as ascites. There is cholelithiasis. The spleen is enlarged. The kidneys are atrophic. There are bilateral kidney stones without hydronephrosis. There is thickening of the stomach suggesting gastritis. Normal small intestine. There are multiple colonic diverticula consistent with diverticulosis. There is NO diverticulitis. There is non-visualization of the appendix. There is sediment or old blood in the urinary bladder. There is a large amount of ascites. There is soft tissue thickening of the LEFT side of the greater omentum which could indicate hematoma possibly related to recent paracentesis. This measures a maximum of 8 cm. There is a large ventral hernia. Electronically Signed: Madi Castrejon MD at 0:29 EDT , Service support , 04/05/20 22:45 Abdomen/Pelvis without Cont [CT] Stat Laboratory Results 04/05/20 04/05/20 04/05/20 23:10 23:35 23:35 WBC 2.9 L RBC 1.89 L Hgb 6.3 L Hct 20.0 L MCV 105.8 H MCH 33.3 H MCHC 31.5 L RDW Std Deviation 77.1 H RDW Coeff of [place] 20.8 H Plt Count 63 L MPV 10.1 Immature Gran % (Auto) 0.700 Neut % (Auto) 72.8 H Lymph % (Auto) 15.4 L [place] % (Auto) 8.0 Eos % (Auto) 2.8 Baso % (Auto) 0.3 Absolute Neuts (auto) 2.1 Absolute Lymphs (auto) 0.44 L Nucleated RBC % 0 Differential Comment SCANNED Diff Path Review May foll Macrocytosis 1+ PT INR Sodium Potassium Chloride Carbon Dioxide Anion Gap BUN Creatinine Estim Creat Clear Calc Est GFR (MDRD) Af Amer Est GFR (MDRD) Non-Af BUN/Creatinine Ratio Glucose Lactic Acid Calcium Total Bilirubin AST ALT Alkaline Phosphatase Total Protein Albumin Globulin Albumin/Globulin Ratio Urine Color DARK YELLOW Urine Clarity Clear Urine pH 5.0 Ur Specific [place] 1.025 Urine Protein 100 H Urine Glucose (UA) 50 H Urine Ketones 15 H Urine Occult Blood 25 H Urine Nitrite Positive H Urine Bilirubin 6 H Urine Urobilinogen 4 H Ur Leukocyte Esterase 100 H Urine RBC 0-5 SEEN Urine WBC 10-25 SEEN Ur Squamous Epith Cells 0-5 SEEN Urine Bacteria 2+ Hyaline Casts 0-5 SEEN Urine Mucus 0 SEEN Blood Type A NEGATIVE Antibody Screen NEGATIVE 04/05/20 04/05/20 04/06/20 23:35 23:35 00:20 WBC RBC Hgb Hct MCV MCH MCHC RDW Std Deviation RDW Coeff of [place] Plt Count MPV Immature Gran % (Auto) Neut % (Auto) Lymph % (Auto) [place] % (Auto) Eos % (Auto) Baso % (Auto) Absolute Neuts (auto) Absolute Lymphs (auto) Nucleated RBC % Differential Comment Diff Path Review Macrocytosis PT 14.4 INR 1.2 Sodium 140 Potassium 3.9 Chloride 106 Carbon Dioxide 28.0 Anion Gap 6 BUN 18 Creatinine 2.59 H Estim Creat Clear Calc 15.30 Est GFR (MDRD) Af Amer 23 L Est GFR (MDRD) Non-Af 19 L BUN/Creatinine Ratio 6.9 L Glucose 248 H Lactic Acid 1.3 Calcium 7.9 L Total Bilirubin 0.70 AST 25 ALT 20 Alkaline Phosphatase 111 Total Protein 4.6 L Albumin 2.2 L Globulin 2.4 Albumin/Globulin Ratio 0.9 Urine Color Urine Clarity Urine pH Ur Specific [place] Urine Protein Urine Glucose (UA) Urine Ketones Urine Occult Blood Urine Nitrite Urine Bilirubin Urine Urobilinogen Ur Leukocyte Esterase Urine RBC Urine WBC Ur Squamous Epith Cells Urine Bacteria Hyaline Casts Urine Mucus Blood Type Antibody Screen - Medical Decision Making According to CT, patient appears to have an 8 cm hematoma in the abdominal wall, this is in the area where the paracentesis was performed and likely a result of it. There is no evidence of anything else acute. She has persistent ascites which is typical. Her hemoglobin 6.3 consistent with acute blood loss, especia lly since she just had a transfusion 2-3 days ago. This may account for her low blood pressures. My recommendation is to admit her, transfuse her with blood, monitor her levels, possibly reimage to ascertain that she is not continuing to bleed, I do not think that there is any surgery that is indicated at this time, I am putting an ice pack on her abdominal wall to help limit the bleeding, which there is no evidence of active life-threatening bleeding. Her blood pressure is remained fairly stable in the 70s and actually now 82/44 after a liter of fluid. She often has had blood pressures that go into the 70s after dialysis and states that she feels okay when that happens. Critical care time (excluding procedures): 30-74 minutes - 35 minutes, including time spent discussing with patient, family, diet consultant, range of motion, and performing direct patient care to bedside ED Disposition - Plan for ED Patient: Disposition: Acute Care Hospital [facility] Diagnosis: Acute blood loss anemia, Intra-abdominal hematoma, Hemorrhagic shock, 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, Chronic kidney disease Referrals: Nicola Bay MD [Primary Care Provider] -
[2020-04-05 23:15] LABS: Mucous, Urine 0 SEEN /hpf (<or=2+)
[2020-04-05 23:21] LABS: Glucose, Dipstick 50 mg/dl (Normal); Ketone-Dipstick 15 mg/dl (Negative); Leukocyte Esterase-Dipstick 100 /ul (Negative); Nitrite-Dipstick Positive (Negative); Occult Blood-Urine 25 /ul (Negative); Protein-Dipstick 100 mg/dl (Negative); Specific Gravity, Urine 1.025 (1.002-1.030); Urine Urobilinogen 4 mg/dl (Normal)
[2020-04-05 23:23] VITALS: BP 75/44; PULSE 94; RESP 16; O2SAT 100
[2020-04-05] MEDS: 0.9% Normal Saline 1,000 ML 1000 ML IV (23:25)
--- NOTE | 2020-04-05 23:29 | ED.RN ---
when pt was straight cathed for urine, pt has bruising to groin and inner thighs. pt denies injury.
[2020-04-05 23:38] LABS: Urine Bilirubin Dipstick 6 mg/dL (Negative)
[2020-04-05 23:39] LABS: Color, Urine DARK YELLOW (Yellow); Urine Clarity Clear (Clear)
[2020-04-05 23:41] LABS: White Blood Cells 10-25 SEEN /hpf (0-5)
[2020-04-05 23:42] LABS: Bacteria 2+ /hpf (None Seen); Hyaline Cast 0-5 SEEN /lpf (0-5); Red Blood Cells-Urine 0-5 SEEN /hpf (0-5); Squamous Epithelial Cells - UA 0-5 SEEN /hpf (5-10)
[2020-04-05 23:46] LABS: Absolute Lymphocyte Count 0.44 X10^3/uL (0.83-4.51); Absolute Neutrophil Count 2.1 X10^3/uL (2.0-7.7); Basophil# 0.01 X10^3/uL; Basophil% 0.3 % (0-1); Eosinophil# 0.08 X10^3/uL; Eosinophils% 2.8 % (0-5); Hemoglobin 6.3 g/dL (12.0-15.0); Lymphocyte # 0.44 X10^3/ul (4.0); Lymphocyte % 15.4 % (19-41); Mean Corp Hgb Conc 31.5 g/dL (32-36); Mean Corpuscular Hgb 33.3 pg (27.0-32.0); Mean Corpuscular Volume 105.8 fL (81-99); Mean Platelet Vol. 10.1 fl (6.2-12.0); Monocyte# 0.23 X10^3/uL; NRBC Flagged by Analyzer 0 % (0-5); Neutrophil # 2.08 X10^3/uL (2.7-7.7); Neutrophil % 72.8 % (47-70); POSITIVE COUNT YES; POSITIVE DIFFERENTIAL YES; POSITIVE MORPHOLOGY YES; Platelet Count 63 K/mm3 (150-450); RBC Distribution Width CV 20.8 % (11.6-14.6); RBC Distribution Width SD 77.1 fl (35.1-43.9); Red Blood Count 1.89 M/mm3 (4.2-5.4); White Blood Count 2.9 K/mm3 (4.4-11.0)
[2020-04-05 23:52] LABS: International Normalized Ratio 1.2; Prothrombin Time (Protime)PT. 14.4 SECONDS (11.7-14.9)
[2020-04-06] VITALS (22 sets, daily range): BP systolic 75–113; BP diastolic 37–53; PULSE 82–103; RESP 16–20; TEMP 36.3–37.2; O2SAT 97–100; BMI 30.8
[2020-04-06 00:08] LABS: Differential Indicated SCAN CRITERIA MET
[2020-04-06 00:20] LABS: Differential Comment SCANNED; Macrocytosis 1+
[2020-04-06 00:31] LABS: ALB/GLOB Ratio 0.9 RATIO (0.9-2.4); AST(SGOT) 25 U/L (15-37); Alanine Aminotransfer ALT/SGPT 20 U/L (13-56); Albumin, Serum 2.2 g/dL (3.2-5.0); Alkaline Phosphatase 111 U/L (45-117); Anion Gap 6 (5-15); BUN 18 mg/dL (7-18); BUN/Creat Ratio 6.9 RATIO (10-20); Calcium,Total 7.9 mg/dL (8.5-10.1); Chloride 106 mmol/L (98-107); Creatinine, Serum 2.59 mg/dL (0.55-1.02); EST Glomerular Filtration Rate 19 mL/min (>60); Est Glom Filt Rate - Afr Amer 23 mL/min (>60); Globulin 2.4 g/dL (2.2-4.2); Glucose 248 mg/dL (74-106); Potassium 3.9 mmol/L (3.5-5.1); Protein, Total 4.6 g/dL (6.4-8.2); Sodium Level 140 mmol/L (136-145)
[2020-04-06 00:49] LABS: Lactic Acid 1.3 mmol/L (0.4-1.9)
--- NOTE | 2020-04-06 02:57 | PCM.HP.STD ---
Problem List (1) Hypercalcemia Status: Inactive (2) Pancytopenia Status: Chronic (3) Non-pressure chronic ulcer of other part of right lower leg with fat layer exposed Status: Inactive (4) Non-pressure chronic ulcer of other part of left lower leg with fat layer exposed Status: Inactive (5) Dependent edema Status: Chronic (6) Encounter for adjustment or management of vascular access device Status: Inactive (7) Hyperkalemia Status: Inactive (8) Chronic kidney disease Status: Chronic (9) Hypothyroidism Status: Chronic (10) Hyperglycemia Status: Chronic (11) Anemia Status: Chronic (12) Acute kidney injury on CKD stage IV Status: Inactive (13) Vascular catheter fitting or adjustment Status: Inactive (14) Liver cirrhosis secondary to GUEVARA Status: Chronic (15) Acute blood loss anemia Status: Acute (16) Intra-abdominal hematoma Status: Acute (17) Hemorrhagic shock Status: Acute (18) 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 Patient had a paracentesis yesterday and had removed 5650cc of fluid. She received albumin afterwards. She also had HD yesterday with now issues. She developed LLQ abdominal pain after the procedure. Given the hypotension, she presented to the ED and was hypotensive at 77/46, she received IVF and BP improved. Hg was 6.3, down from 7.4 on 04/02. CT abdomen showed a left-sided abdominal wall hematoma of 8cm. She was order 1 unit of PRBCs. Patient undergoes paracentesis weekly and has never had a hematoma before.[] Past Medical History Past Medical History (Chronic Problems): Chronic Problems (Last Reviewed 02/06/20 @ 10:[address] 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 Mason Sharma, ) Venous insufficiency (chronic) (peripheral) (Chronic) I87.2 History of breast cancer (Chronic) Z85.3 Ascites (Chronic) R18.8 CKD (chronic kidney disease) stage 4, GFR 15-29 ml/min (Chronic) N18.4 TIA (transient ischemic attack) (Chronic) DM2 (diabetes mellitus, type 2) (Chronic) E11.9 Benign essential HTN (Chronic) I10 Hypothyroid E03.9 Hypothyroid E03.9 Allergies clarithromycin [From Biaxin] Allergy (Verified 02/01/20 15:16) Unknown iodine Allergy (Verified 02/01/20 15:16) Unknown Home Medications: Ambulatory Orders Medication Instructions Recorded Furosemide [Lasix] 40 mg PO QODAY 01/22/18 Insulin Glargine,Hum.rec.anlog 26 unit SQ BID 11/23/19 [Lantus Solostar] Levothyroxine [Synthroid] 100 mcg PO DAILY@0600 02/01/20 Pantoprazole Sodium [Protonix] 40 mg PO BID 02/01/20 Midodrine HCl 10 mg PO MOWEFR 04/05/20 Surgical History: Surgical History (Last Reviewed 04/06/20 @ 03:[address] Mason Sharma DO) History of appendectomy Z90.49 History of cataract extraction Z98.49 History of colonoscopy Z98.890 History of extraction of renal calculus Z98.890, Z87.442 History of right mastectomy Z90.11 history port insertion Surgical History: mastectomy, - - Patient has had a right mastectomy and appendectomy. She is a Ab0. Right IJ Port-A-Cath Psychiatric History: No pertinent psych hx [employer] History: No pertinent [employer] history Smoking Status: Never smoker - *Family History Sibling Family History: Family History (Last Reviewed 04/06/20 @ 03:[address] Mason Sharma DO) Father CHF (congestive heart failure) Heart disease Mother CVA (cerebral vascular accident) History Items: Cancer Review of Systems Constitutional: Reports: - - no sick contacts. Denies: Anorexia, Chills, Fever, Night Sweats Eyes: Reports: Blurred vision, Double vision HEENT: Denies: Head Aches, Sinus Congestion, Sinus Drainage Cardiovascular: Denies: Chest Pain, Palpitations Respiratory: Denies: Cough, Shortness of breath at rest, Sputum production Gastrointestinal: Reports: Abdominal Pain. Denies: Nausea, Vomiting Genitourinary: Denies: Dysuria Musculoskeletal: Denies: Joint Pain, Joint Tenderness Skin: Denies: Rash, Wounds Neurological: Denies: Numbness, Tingling, Focal weakness Psychiatric: Denies: Anxiety, Depression Hematologic/ Lymphatic: Reports: Easy Bruising, Easy Bleeding. Denies: Hx of blood clot Comment: All review of systems were negative except as mentioned above in the history of present illness and the other review of systems. VTE Information - Inpt Only VTE Present on Admission: No VTE Mechan Device Prophylaxis: None VTE Pharm Prophylaxis ordered?: No Reason prophylaxis not ordered:: Treatment Not Indicated Patient Problems: Active and Suspected Problems (Last Reviewed 02/06/20 @ 10:[address] Umang Fierro MD) Acute blood loss anemia (Acute) Intra-abdominal hematoma (Acute) Hemorrhagic shock (Acute) - Physical Exam Vitals/I&O's: Vital Signs Temp Pulse Resp BP Pulse Ox 37.2 C 92 16 86/49 L 100 04/06/20 02:28 04/06/20 02:28 04/06/20 02:28 04/06/20 02:28 04/06/20 02:28 Oxygen Delivery Method Room Air Weight: 76.3 kg Body Mass Index (BMI) 30.7 Finger Stick Blood Glucose 406 Intake and Output for Last 24 Hours 04/04/20 04/05/20 04/06/20 23:59 23:59 23:59 Intake Total 1000 / 1000 Balance 1000 / 1000 General: No apparent distress HEENT: Atraumatic, Normocephalic Oral: Moist Mucosa, No Gingival or Mucosal Lesions/ Ulcerations Neck: No Nodes, Thyroid Normal Size and Texture Lungs: Clear to auscultation, Normal air movement, No rhonchi, No wheeze Cardiovascular: Regular rate, Regular Rhythm, - - 2 out of 6 holosystolic murmur at the apex Abdomen: Bowel Sounds Present, Soft, Non-Distended, - - Tender in the left lower quadrant Extremities: No Calf Tenderness, Edema - Trace Skin: - - Small ecchymosis in the left lower quadrant in the area of her abdominal tenderness Musculoskeletal: No Tenderness to Palpation of Joints or Extremities, No Muscle Wasting Neurological: Neuro grossly intact, Coordination normal Psych/Mental Status: Normal Affect, Appropriate Laboratory Results 04/05/20 23:10: Urine Color DARK YELLOW, Urine Clarity Clear, Urine pH 5.0, Ur Specific [place] 1.025, Urine Protein 100 H, Urine Glucose (UA) 50 H, Urine Ketones 15 H, Urine Occult Blood 25 H, Urine Nitrite Positive H, Urine Bilirubin 6 H, Urine Urobilinogen 4 H, Ur Leukocyte Esterase 100 H, Urine RBC 0-5 SEEN, Urine WBC 10-25 SEEN, Ur Squamous Epith Cells 0-5 SEEN, Urine Bacteria 2+, Hyaline Casts 0-5 SEEN, Urine Mucus 0 SEEN 04/05/20 23:35: Blood Type A NEGATIVE, Antibody Screen NEGATIVE 04/05/20 23:35: WBC 2.9 L, RBC 1.89 L, Hgb 6.3 L, Hct 20.0 L, MCV 105.8 H, MCH 33.3 H, MCHC 31.5 L, RDW Std Deviation 77.1 H, RDW Coeff of [place] 20.8 H, Plt Count 63 L, MPV 10.1, Immature Gran % (Auto) 0.700, Neut % (Auto) 72.8 H, Lymph % (Auto) 15.4 L, [place] % (Auto) 8.0, Eos % (Auto) 2.8, Baso % (Auto) 0.3, Absolute Neuts (auto) 2.1, Absolute Lymphs (auto) 0.44 L, Nucleated RBC % 0, Differential Comment SCANNED, Diff Path Review October, Macrocytosis 1+ 04/05/20 23:35: PT 14.4, INR 1.2 04/05/20 23:35: Sodium 140, Potassium 3.9, Chloride 106, Carbon Dioxide 28.0, Anion Gap 6, BUN 18, Creatinine 2.59 H, Estim Creat Clear Calc 15.30, Est GFR (MDRD) Af Amer 23 L, Est GFR (MDRD) Non-Af 19 L, BUN/Creatinine Ratio 6.9 L, Glucose 248 H, Calcium 7.9 L, Total Bilirubin 0.70, AST 25, ALT 20, Alkaline Phosphatase 111, Total Protein 4.6 L, Albumin 2.2 L, Globulin 2.4, Albumin/Globulin Ratio 0.9 04/06/20 00:20: Lactic Acid 1.3 Clinical Impression(s) from Imaging Studies Abdomen/Pelvis CT 04/05/20 22:45 IMPRESSION: There is a large hiatal hernia containing portions of the stomach as well as ascites. There is cholelithiasis. The spleen is enlarged. The kidneys are atrophic. There are bilateral kidney stones without hydronephrosis. There is thickening of the stomach suggesting gastritis. Normal small intestine. There are multiple colonic diverticula consistent with diverticulosis. There is NO diverticulitis. There is non-visualization of the appendix. There is sediment or old blood in the urinary bladder. There is a large amount of ascites. There is soft tissue thickening of the LEFT side of the greater omentum which could indicate hematoma possibly related to recent paracentesis. This measures a maximum of 8 cm. There is a large ventral hernia. Electronically Signed: Madi Castrejon MD at 0:29 EDT , Service support , Assessment/Plan All Active Problems (Last Reviewed 02/06/20 @ 10:[address] Umang Fierro MD) Acute blood loss anemia (Acute) Intra-abdominal hematoma (Acute) Hemorrhagic shock (Acute) 1. Acute blood loss anemia: Secondary to intra-abdominal wall hematoma. Patient to be transfused 1 unit of packed red blood cells. Monitor hemoglobin. 2. Hemorrhagic shock: Secondary to above. This is exacerbated due to patient's chronic hypotension but also patient had had dialysis earlier in the day. BP is currently low but the patient is asymptomatic at this time. We will hold off on additional IV fluids for now. Hold furosemide for now. Should be able to resume upon discharge. Continue with midodrine. 3. Intra-abdominal hematoma: Secondary to paracentesis but also complicated by the patient's chronic thrombocytopenia. No plans for any surgical intervention and this was discussed with the patient. 4. End-stage renal disease: On hemodialysis every Wednesday. I do not anticipate the patient staying longer than this weekend but if patient does require staying in the hospital on the , consult [facility] for dialysis. Patient last had dialysis on the . 5. Diabetes mellitus type 2: Continue with basal insulin and add sliding scale insulin. 6. Hypothyroidism: Stable. Continue with levothyroxine. 7. Cirrhosis: Patient is not on any transplant list given her other medical comorbidities. Patient only on furosemide and not on spironolactone. Presumably due to the hypotension. 8. VTE prophylaxis: Low risk as patient is observation status at this time. 9. Advanced care planning: Discussed with the patient about DNR Comfort Care arrest and intubation. She wishes to be DNR Comfort Care arrest no intubation. OBSV E&M: [id number] Initial observation care L3
[2020-04-06] MEDS: Levothyroxine 100 MCG Tablet PO (06:49)
[2020-04-06] MEDS: Insulin Lispro 100 UNIT/ML INSULN.PEN SC ×3 (06:49→16:42)
[2020-04-06 10:11] LABS: Bedside Glucose 202 mg/dL (70-110)
[2020-04-06 10:18] LABS: Absolute Lymphocyte Count 0.38 X10^3/uL (0.83-4.51); Absolute Neutrophil Count 1.9 X10^3/uL (2.0-7.7); Basophil# 0.02 X10^3/uL; Basophil% 0.8 % (0-1); Eosinophil# 0.13 X10^3/uL; Eosinophils% 4.9 % (0-5); Hematocrit 22.7 % (37-47); Hemoglobin 7.2 g/dL (12.0-15.0); Lymphocyte # 0.38 X10^3/ul (4.0); Lymphocyte % 14.3 % (19-41); Mean Corp Hgb Conc 31.7 g/dL (32-36); Mean Corpuscular Volume 104.1 fL (81-99); Mean Platelet Vol. 10.1 fl (6.2-12.0); Monocyte# 0.22 X10^3/uL; Monocyte% 8.3 % (0-10); NRBC Flagged by Analyzer 0 % (0-5); Neutrophil # 1.89 X10^3/uL (2.7-7.7); Neutrophil % 70.9 % (47-70); POSITIVE COUNT YES; POSITIVE DIFFERENTIAL YES; POSITIVE MORPHOLOGY YES; Platelet Count 61 K/mm3 (150-450); RBC Distribution Width CV 20.2 % (11.6-14.6); RBC Distribution Width SD 73.3 fl (35.1-43.9); Red Blood Count 2.18 M/mm3 (4.2-5.4); White Blood Count 2.7 K/mm3 (4.4-11.0)
[2020-04-06 10:26] LABS: Differential Indicated SCAN CRITERIA MET
[2020-04-06] MEDS: 0.9% Saline Lock 10 ML Syringe IV ×3 (10:37→21:49)
[2020-04-06] MEDS: Pantoprazole Sodium 40 MG Tablet PO ×2 (10:37→21:45)
[2020-04-06 10:46] LABS: Anisocytosis 2+; Hypochromasia 1+; Macrocytosis RARE; Microcytosis RARE; Platelet Estimate MKD DEC (ADEQ); Polychromasia RARE
[2020-04-06 10:47] LABS: Basophilic Stippling RARE
[2020-04-06 11:01] LABS: Anion Gap 4 (5-15); BUN 22 mg/dL (7-18); BUN/Creat Ratio 7.5 RATIO (10-20); Calcium,Total 8.1 mg/dL (8.5-10.1); Chloride 108 mmol/L (98-107); Creatinine, Serum 2.92 mg/dL (0.55-1.02); EST Glomerular Filtration Rate 17 mL/min (>60); Est Glom Filt Rate - Afr Amer 20 mL/min (>60); Estimated Creatinine Clearance 13.57 ml/min; Glucose 278 mg/dL (74-106); Potassium 4.3 mmol/L (3.5-5.1); Sodium Level 140 mmol/L (136-145)
[2020-04-06 11:56] LABS: Bedside Glucose 261 mg/dL (70-110)
--- NOTE | 2020-04-06 15:51 | CM.UR ---
EVAN ANDERSON assessment: Face to Face with patient and niece for initial transition planning/care coordination assessment. EVAN ANDERSON introduced self and role at [facility], pt voices understanding and consents to assessment at this time. Pt is lying in bed with no distress at this time. Pt is A/Ox4 at this time and answers all questions appropriately at this time. Care providers, pharmacy, and demographics verified at this time. Presentation: hypotension, LLQ abd pain Admitting dx: Acute blood loss anemia, intra-abd hematoma. PCP: Dr. Bay Specialists: Dr. Price, heme; Dr. Barnes, endocrinology; Dr. Spear and Dr. Herzog Preferred Pharmacy: [facility] Insurance: [employer] Prescription Benefit: [employer] Living Will/HPOA: Pt has LW/HPOA and is aware that they are on file at [facility] at this time. Pt's nephew, Miko Castro, is HPOA. LNOK: Miko Castro, nephew/HPOA; Shanthi Ma, niece Living Arrangements: Pt states lives alone in 1 story condo with 1 step in thru garage and states no concerns at home at this time. Pt states is independent with ADL's. Family brings her food/groceries. Transportation: Pt states drives self. See below regarding transportation issue. DME : Pt states has the following DME: walker, grab bars, and shower chair. Pt states no need for any further DME. HHC/SNF: Pt states has had HHC in the past and has been to [facility] in [place]. Patient does get weekly paracentesis for her GUEVARA cirrhosis. States every . Has dialysis -- at [facility]. Drives herself. Asked if there is transportation options for it so she doesn't have to drive herself. States they do dialysis then they have to work with her to get her BP high enough for her to drive home. States family takes her sometimes. States family has decreased f2f visits since Covid. States they talk on phone several times per week. Recommended checking on her frequently and if not answering phone going to house. Explained d/t hypotension and my concern about her being alone. States she gets frequently hypotensive after dialysis. States she would like to stay until they do the EGD and colonoscopy--if planned. CM to follow for any further discharge planning/needs. Advised pt to ask for CM if any further questions/concerns/needs arise, voices understanding. Pt Goal: Home Plan: Home with OP dialysis. Nicole Woodall RN, CCM.
--- NOTE | 2020-04-06 16:04 | PCM.HOSP.N ---
Hospitalist Note Pt admitted after MN. Had para for 5.2 L and was given albumin of unknown amt following. CT abd in ED showed 8 cm hematoma at para site. Hgb was 6.3 and up to 7.3 after 1 u. BP better. Was 70-80's systolic and now in the 90's with last being 99/45. Pt to have EGD on Wednesday with Dr. Herzog for suspected esophageal varices and chronic blood loss anemia. No s/o acute GI losses at this time. Extensive d/w family and pt. Will give 1 more unit and repeat hgb 1-2 hrs following and then again in am. If BP stable and hgb stable will d/c and she can have her outpt EGD on Wednesday. If not better or hypotensive will keep and consult GS for EGD here.
[2020-04-06 17:15] LABS: Bedside Glucose 271 mg/dL (70-110)
[2020-04-06 21:17] LABS: Hematocrit 26.8 % (37-47); Hemoglobin 8.6 g/dL (12.0-15.0)
[2020-04-06 21:55] LABS: Bedside Glucose 266 mg/dL (70-110)
[2020-04-06] MEDS: oxyCODONE 5 MG Tablet PO (23:55)
[2020-04-07] MEDS: DiphenhydrAMINE 25 MG Capsule PO ×2 (00:27→06:38)
[2020-04-07 02:59] VITALS: PULSE 94
[2020-04-07 04:00] VITALS: BP 110/55; PULSE 88; RESP 16; TEMP 36.8; O2SAT 100
[2020-04-07 06:00] LABS: Absolute Lymphocyte Count 0.53 X10^3/uL (0.83-4.51); Absolute Neutrophil Count 2.3 X10^3/uL (2.0-7.7); Basophil# 0.02 X10^3/uL; Basophil% 0.6 % (0-1); Eosinophil# 0.21 X10^3/uL; Eosinophils% 6.3 % (0-5); Hematocrit 28.4 % (37-47); Hemoglobin 9.1 g/dL (12.0-15.0); Lymphocyte # 0.53 X10^3/ul (4.0); Lymphocyte % 15.8 % (19-41); Mean Corpuscular Hgb 32.3 pg (27.0-32.0); Mean Corpuscular Volume 100.7 fL (81-99); Mean Platelet Vol. 9.5 fl (6.2-12.0); Monocyte# 0.24 X10^3/uL; Monocyte% 7.2 % (0-10); NRBC Flagged by Analyzer 0 % (0-5); Neutrophil # 2.33 X10^3/uL (2.7-7.7); Neutrophil % 69.5 % (47-70); POSITIVE COUNT YES; POSITIVE DIFFERENTIAL YES; POSITIVE MORPHOLOGY YES; Platelet Count 69 K/mm3 (150-450); RBC Distribution Width CV 20.9 % (11.6-14.6); RBC Distribution Width SD 72.6 fl (35.1-43.9); Red Blood Count 2.82 M/mm3 (4.2-5.4); White Blood Count 3.4 K/mm3 (4.4-11.0)
[2020-04-07 06:05] LABS: Differential Indicated SCAN CRITERIA MET
[2020-04-07 06:23] LABS: Differential Comment SCANNED; Ovalocyte RARE; Platelet Estimate MOD DEC (ADEQ)
[2020-04-07] MEDS: oxyCODONE 5 MG Tablet PO (06:38)
[2020-04-07] MEDS: 0.9% Saline Lock 10 ML Syringe IV (06:38)
[2020-04-07] MEDS: Levothyroxine 100 MCG Tablet PO (07:02)
[2020-04-07 07:11] LABS: Bedside Glucose 78 mg/dL (70-110)
[2020-04-07 07:27] VITALS: PULSE 105
[2020-04-07 08:42] VITALS: BP 114/62; PULSE 108; RESP 16; TEMP 36.9; O2SAT 100
[2020-04-07] MEDS: Pantoprazole Sodium 40 MG Tablet PO (08:43)
[2020-04-07 08:51] LABS: Bedside Glucose 120 mg/dL (70-110)
--- NOTE | 2020-04-07 08:55 | DCINST_ITS ---
- Discharge Diagnoses Current Active Problems: Current Active and Chronic Problems (Last Reviewed 04/06/20 @ 03:[address] 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) Secondary hyperparathyroidism (Chronic) Venous insufficiency (chronic) (peripheral) (Chronic) History of breast cancer (Chronic) Ascites (Chronic) CKD (chronic kidney disease) stage 4, GFR 15-29 ml/min (Chronic) TIA (transient ischemic attack) (Chronic) DM2 (diabetes mellitus, type 2) (Chronic) Benign essential HTN (Chronic) You will use the following diet at home:: Renal (restricted protein/sodium) Your food should be the consistency of: Regular Your liquids should be the consistency of: Regular/Thin Discharge Activity: Return to Normal Activity, No Restrictions Allergies/Adverse Reactions: Allergies clarithromycin [From Biaxin] Allergy (Verified 02/01/20 15:16) Unknown iodine Allergy (Verified 02/01/20 15:16) Unknown Medications to take at Discharge Furosemide [Lasix] 40 mg PO QODAY 01/22/18 Insulin Glargine,Hum.rec.anlog [Lantus Solostar] 26 unit SQ BID 11/23/19 Levothyroxine [Synthroid] 100 mcg PO DAILY@0600 02/01/20 Pantoprazole Sodium [Protonix] 40 mg PO BID 02/01/20 Midodrine HCl 10 mg PO MOWEFR 04/05/20 Primary Care Physician: Nicola Bay MD [Primary Care Provider] - Please follow up with your Primary Care Physician in: 1-2 weeks for hospital follow up Test Results: Test results from this visit will be discussed in further detail at your follow- up appointment, if applicable. Please Follow Up With: Abimael Herzog MD When: tomorrow for EGD
--- NOTE | 2020-04-07 08:56 | PCM.DC.SUM ---
Discharge Date and Diagnosis - Problem List Patient Problems: Active and Suspected Problems (Last Reviewed 04/06/20 @ 03:[address] Mason Sharma DO) Acute blood loss anemia (Acute) Intra-abdominal hematoma (Acute) Hemorrhagic shock (Acute) Date of Admission: 04/06/20 Date of Discharge: 04/07/20 - Primary Discharge Diagnosis Acute Problems: Active Problems (Last Reviewed 04/06/20 @ 03:[address] Mason Sharma DO) Acute blood loss anemia (Acute) Intra-abdominal hematoma (Acute) Hemorrhagic shock (Acute) - Secondary Discharge Diagnosis Chronic Problems: Chronic Problems (Last Reviewed 04/06/20 @ 03:[address] 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 BACK AND LLQ PAIN AFTER DIALYSIS TODAY AND PT HAD LT SIDED PARACENTESIS ON WEDNESDAY -- HX:BREAST CANCER WITH RT MASECTOMY,DIABETES,HTN,HYPOTHYROID-FLORES''S,CKD STAGE 4,CIRRHOSIS-GUEVARA,KIDNEY STONES WITH STENTS,APPENDECTOMY RADIATION DOSAGE (If Supplied By Facility): CTDIvol = ( 14.00 ) mGy, DLP = ( 710.18 ) mGycm TECHNIQUE: Transaxial images were obtained from the dome of the diaphragm to the symphysis pubis without oral contrast, and without intravenous contrast. Sagittal and coronal images were reconstructed. Individualized dose optimization techniques were used for this CT. COMPARISON: 12/24/2019 FINDINGS: There is a large hiatal hernia containing portions of the stomach as well as ascites. Normal liver. There is cholelithiasis. The spleen is enlarged. Normal pancreas. Normal bilateral adrenal glands. The kidneys are atrophic. There are bilateral kidney stones without hydronephrosis. There is thickening of the stomach suggesting gastritis. Normal small intestine. There are multiple colonic diverticula consistent with diverticulosis. There is NO diverticulitis. There is non-visualization of the appendix. Normal abdominal aorta. Normal inferior vena cava. Normal retroperitoneum. There is sediment or old blood in the urinary bladder. Uterus is intact but atrophic. There is a large amount of ascites. There is soft tissue thickening of the LEFT side of the greater omentum which could indicate hematoma possibly related to recent paracentesis. This measures a maximum of 8 cm. There is a large ventral hernia. Normal osseous structures. CT/Abdomen/Pelvis without Cont IMPRESSION: There is a large hiatal hernia containing portions of the stomach as well as ascites. There is cholelithiasis. The spleen is enlarged. The kidneys are atrophic. There are bilateral kidney stones without hydronephrosis. There is thickening of the stomach suggesting gastritis. Normal small intestine. There are multiple colonic diverticula consistent with diverticulosis. There is NO diverticulitis. There is non-visualization of the appendix. There is sediment or old blood in the urinary bladder. There is a large amount of ascites. There is soft tissue thickening of the LEFT side of the greater omentum which could indicate hematoma possibly related to recent paracentesis. This measures a maximum of 8 cm. There is a large ventral hernia. Electronically Signed: Madi Castrejon MD at 0:29 EDT , Service support , none Operations: None Summary of Care Provided: Ms Manzanares is a 74 yo female who presented to the ED at [facility] on 04/07/2020 with LLQ pain and hypotension. She stated that she had received a paracentesis earilier that day, which she does weekly for the acsites associated with her GUEVARA cirrhosis, and had pain following. She did have albumin after her para but the of an unknown amt. She was also found to have a hgb of 6.3 with one on 04/02 that was 7.4. A CT of the abdomen and pelvis was done and showed an 8 cm hematoma in the LLQ that correlated with the site of her para. BP at the time of admission was in the 70-80 systolic and the pt states that she usually runs in the 100-120 range when she is not on dialysis. She was transfused 2 total u of PRBC and her hgb barbara to 8.6 with a repeat the next morning showing stability at 9.1. Her BP improved to 114/62 at discharge. She is scheduled to have an EGD with Dr. Herzog tomorrow am to further assess her chronic anemia. She states that she does have a h/o varicies and is wondering if her chronic loss is related to this. She was discharged in stable condition to home. Discharge Dx Hypotension -resolved Acute on Chronic Blood Loss Anemia -acute resolved LLQ 8cm Hematoma GUEVARA/Cirrhosis ESRD (HD MWF) DM-2 Hypothyroidism Thrombocytopenia Ascites HTN Esophageal Varices GERD H/O Breast Cancer D/C time > ' Patient Problems: Active and Suspected Problems (Last Reviewed 04/06/20 @ 03:[address] Mason Sharma, DO) Acute blood loss anemia (Acute) Intra-abdominal hematoma (Acute) Hemorrhagic shock (Acute) Subjective: Pt states that she is feeling well. Pain in abdomen is resolving at para site. Overall much better. - Physical Exam Vitals/I&O's: Vital Signs Temp Pulse Resp BP Pulse Ox 98.4 F 108 H 16 114/62 100 04/07/20 08:42 04/07/20 08:42 04/07/20 08:42 04/07/20 08:42 04/07/20 08:42 Oxygen Delivery Method Room Air Weight: 76.3 kg Body Mass Index (BMI) 30.7 Finger Stick Blood Glucose 406 Intake and Output for Last 24 Hours 04/05/20 04/06/20 04/07/20 23:59 23:59 23:59 Intake Total 1640 / 1640 120 / 120 Output Total 0 / 0 Balance 1640 / 1640 120 / 120 General: Alert, Oriented x3, Cooperative, No apparent distress, Well developed, Well nourished, - - older WF sitting up in bed watching TV, appears well HEENT: Atraumatic, PERRLA, EOMI, Normocephalic, EAC Clear Oral: Moist Mucosa, No Gingival or Mucosal Lesions/ Ulcerations Neck: Supple, No JVD, Trachea Midline, Thyroid Normal Size and Texture Lungs: Clear to auscultation, Normal air movement, No rhonchi, No wheeze Cardiovascular: Regular rate, Regular Rhythm, Normal S1, Normal S2, No murmurs, No Ectopic Activity, No rub noted, No Gallop Abdomen: Bowel Sounds Present, Soft, Non-Distended, No Hepato-splenomegaly, Tender - LLQ in area of eccymosis/para site, Hernia - rectus diastasis Extremities: No clubbing, No cyanosis, No edema, Capillary Refill Less than 3 Seconds, Peripheral Pulses Normal Skin: No rashes, No breakdown Musculoskeletal: No Tenderness to Palpation of Joints or Extremities, No Muscle Wasting, Arthritic Changes Lymphatic: No Cervical, Supraclavicular, or Inguinal Adenopathy Neurological: Cranial nerves II-XII grossly intact, Neuro grossly intact, Muscle tone normal, Coordination normal Psych/Mental Status: Normal Affect, Appropriate, - - pleasant Laboratory Results 04/05/20 23:25: Crossmatch See Detail 04/06/20 06:39: POC Glucose 202 H 04/06/20 10:05: WBC 2.7 L, RBC 2.18 L, Hgb 7.2 L, Hct 22.7 L, MCV 104.1 H, MCH 33.0 H, MCHC 31.7 L, RDW Std Deviation 73.3 H, RDW Coeff of Mary Alice 20.2 H, Plt Count 61 L, MPV 10.1, Immature Gran % (Auto) 0.800, Neut % (Auto) 70.9 H, Lymph % (Auto) 14.3 L, Ogle % (Auto) 8.3, Eos % (Auto) 4.9, Baso % (Auto) 0.8, Absolute Neuts (auto) 1.9 L, Absolute Lymphs (auto) 0.38 L, Nucleated RBC % 0, Diff Path Review May , Platelet Estimate MKD DEC, Polychromasia RARE, Hypochromasia 1+, Basophilic Stippling RARE, Anisocytosis 2+, Microcytosis RARE, Macrocytosis RARE 04/06/20 10:05: Sodium 140, Potassium 4.3, Chloride 108 H, Carbon Dioxide 28.0, Anion Gap 4 L, BUN 22 H, Creatinine 2.92 H, Estim Creat Clear Calc 13.57, Est GFR (MDRD) Af Amer 20 L, Est GFR (MDRD) Non-Af 17 L, BUN/Creatinine Ratio 7.5 L, Glucose 278 H, Calcium 8.1 L 04/06/20 11:38: POC Glucose 261 H 04/06/20 16:42: POC Glucose 271 H 04/06/20 21:00: Hgb 8.6 L, Hct 26.8 L 04/06/20 21:48: POC Glucose 266 H 04/07/20 05:50: WBC 3.4 L, RBC 2.82 L, Hgb 9.1 L, Hct 28.4 L, MCV 100.7 H, MCH 32.3 H, MCHC 32.0, RDW Std Deviation 72.6 H, RDW Coeff of Mary Alice 20.9 H, Plt Count 69 L, MPV 9.5, Immature Gran % (Auto) 0.600, Neut % (Auto) 69.5, Lymph % (Auto) 15.8 L, Ogle % (Auto) 7.2, Eos % (Auto) 6.3 H, Baso % (Auto) 0.6, Absolute Neuts (auto) 2.3, Absolute Lymphs (auto) 0.53 L, Nucleated RBC % 0, Differential Comment SCANNED, Diff Path Review May foll, Platelet Estimate MOD DEC, Ovalocytes RARE 04/07/20 06:40: POC Glucose 78 04/07/20 08:45: POC Glucose 120 H Current Medications Dextrose (Dextrose 50%-Water 25 Gm/50 Ml Disp.Syrin) 0 gm IV X1 PRN; Protocol PRN Reason: Hypoglycemia Diphenhydramine HCl (Diphenhydramine 25 Mg Capsule) 25 mg PO Q6H PRN PRN PRN Reason: ITCHING Last Admin: 04/07/20 06:38 Dose: 25 mg Documented by: Glucagon (Glucagon 1 Mg/Ml Syringe) 1 mg IM .X1 PRN PRN Reason: Hypoglycemia Sodium Chloride () 500 mls @ 15 mls/hr IV PRN PRN PRN Reason: Blood Transfusion Insulin Glargine (Insulin Glargine 100 Units/Ml Pen) 35 units SC BID KISHOR Last Admin: 04/07/20 08:45 Dose: 35 unit Documented by: Insulin Human Lispro (Insulin Lispro 100 Unit/Ml Insuln.Pen) 0 unit SC TIDAC [facility]; Protocol Last Admin: 04/07/20 07:02 Dose: Not Given Documented by: Levothyroxine Sodium (Levothyroxine 100 Mcg Tablet) 100 mcg PO DAILY@0600 [facility] Last Admin: 04/07/20 07:02 Dose: 100 mcg Documented by: Midodrine (Midodrine Hcl 5 Mg Tablet) 10 mg PO MOWEFR [facility] Nutritional Formula (Lactose Free) (Ensure Enlive 120 Ml Liquid) 120 ml PO 4X/DAY [facility] Last Admin: 04/07/20 08:43 Dose: 120 ml Documented by: Ondansetron HCl (Ondansetron 4 Mg/2 Ml Vial) 4 mg IV Q8H PRN PRN PRN Reason: NAUSEA/VOMITING Oxycodone HCl (Oxycodone 5 Mg Tablet) 5 mg PO Q4H PRN PRN PRN Reason: Pain Score 4-5 Last Admin: 04/07/20 06:38 Dose: 5 mg Documented by: Oxycodone HCl (Oxycodone 5 Mg Tablet) 10 mg PO Q4H PRN PRN PRN Reason: Pain Score 6-10 Pantoprazole Sodium (Pantoprazole Sodium 40 Mg Tablet) 40 mg PO BID [facility] Last Admin: 04/07/20 08:43 Dose: 40 mg Documented by: Sodium Chloride (0.9% Saline Lock 10 Ml Syringe) 10 - 40 ml IV UD PRN PRN Reason: SALINE FLUSH Last Admin: 04/07/20 06:38 Dose: 10 ml Documented by: Discharge Activity: Return to Normal Activity, No Restrictions Home Medications: Medications to take at Discharge Furosemide [Lasix] 40 mg PO QODAY 01/22/18 Insulin Glargine,Hum.rec.anlog [Lantus Solostar] 26 unit SQ BID 11/23/19 Levothyroxine [Synthroid] 100 mcg PO DAILY@0600 02/01/20 Pantoprazole Sodium [Protonix] 40 mg PO BID 02/01/20 Midodrine HCl 10 mg PO MOWEFR 04/05/20 Primary Care Physician: Nicola Bay MD [Primary Care Provider] - Please follow up with your Primary Care Physician in: 1-2 weeks for hospital follow up Please Follow Up With: Abimael Herzog MD When: tomorrow for EGD Medical Necessity - Tobacco Use Smoking Status: Never smoker Meaningful Use Info Meaningful Use Diagnoses (Choose all that apply): None applicable Inpatient E&M: [address] [facility]
[2020-04-08 14:12] LABS: Pathologist Review Reviewed
[2020-04-08 14:13] LABS: Pathologist Review Reviewed
[2020-04-08 14:13] LABS: Pathologist Review Reviewed
--- NOTE | 2020-04-09 13:19 | CASEMGMT ---
EVAN ANDERSON Discharge Follow-up Phone Call: MARNIE Rojas: Call Date: 04/09/2020 Discharge Date: 04/07/2020 Time of Call: 1310 Admitting Diagnosis: ABLA, intra-abd hematoma, hemorrhagic shock Discharge follow-up call placed to pt. Pt states she is feeling better since discharge. She states that she had an EGD performed by Dr. Herzog at [facility] yesterday during which they found some blood seeping from some lesions in hers stomach. These were lasered according to the patinet. Pt states she also underwent her scheduled HD yesterday during which she reports her BP to have tolerated much better than usual. Pt reports her BP to have been 120/55 last evening. Pt states the discomfort in her abdomen from the hematoma and the discomfort in her throat from the EGD are both improved today and she has been able to move around a lot better. Pt states she is to follow-up with Dr. Herzog as needed. Pt states she is aware of the need to schedule an appointment with her PCP Dr. Bay. She plans to do this after HD on . In regards to Dr. Price f/u, pt states the EGD with Dr. Herzog was the result of Dr. Herzog and Dr. Price collaboration. Pt denies any further questions or concerns. Librado Rodríguez RN CM
== END 2020-04-07 10:25 | disposition home or self-care (01) | DRG 604 ==
LOC: ED 04-06 02:19 → PCU 04-06 03:09
PROVIDERS: Emergency Provider Emergency Medicine; PCP Family Medicine; Visit Provider Internal Medicine
DX: S30.1XXA Contusion of abdominal wall, initial encounter (principal); N18.6 End stage renal disease; R57.8 Other shock; D62 Acute posthemorrhagic anemia; I12.0 Hypertensive chronic kidney disease with stage 5 chronic kidney disease or end stage renal disease; N25.81 Secondary hyperparathyroidism of renal origin; R18.8 Other ascites; D61.818 Other pancytopenia; K92.2 Gastrointestinal hemorrhage, unspecified; K74.60 Unspecified cirrhosis of liver; K75.81 Nonalcoholic steatohepatitis (NASH); Y84.4 Aspiration of fluid as the cause of abnormal reaction of the patient, or of later complication, without mention of misadventure at the time of the procedure; Y92.9 Unspecified place or not applicable; Z99.2 Dependence on renal dialysis; E11.22 Type 2 diabetes mellitus with diabetic chronic kidney disease; K21.9 Gastro-esophageal reflux disease without esophagitis; I87.2 Venous insufficiency (chronic) (peripheral); E11.65 Type 2 diabetes mellitus with hyperglycemia; E06.3 Autoimmune thyroiditis; I95.89 Other hypotension; Z66 Do not resuscitate; D63.1 Anemia in chronic kidney disease; D73.1 Hypersplenism
CPT/HCPCS: 36415; 36430; 36591; 49083; 74176; 80048; 80053; 81001; 82962; 83605; 85014; 85018; 85025; 85610; 86850; 86900; 86901; 86920; 87040; 99283; 99285; J7030; J7040; J7050; P9016; P9047; A4216

== ENCOUNTER → 2020-04-11 10:17 | Outpatient (CLI) | payer MEDICARE, SELFPAY ==
[2019-05-04 11:25] VITALS: BMI 31.4
[2020-04-06 02:49] VITALS: BMI 30.7
--- NOTE | 2020-04-11 10:19 | US_ITS ---
PROCEDURE: Ultrasound guided paracentesis. DATE OF EXAMINATION: 04/11/2020. INDICATION: Female, 74 years old. Ascites. PHYSICIAN: Rigo Britt M.D. TECHNIQUE: The risks, benefits, and alternatives to the procedure were explained to the patient. The specific risks of bleeding, infection, and damage to bowel were detailed and accepted. Witnessed informed consent was obtained. The abdomen was ultrasonographically surveyed. An appropriate pocket of fluid was identified at the right lower quadrant. The skin were cleaned and prepped in the usual sterile fashion. Using ultrasound guidance, the peritoneal cavity was accessed with a 5-Bangladeshi paracentesis needle/catheter system. The trocar was removed. A total of 6900 ml of blood-tinged fluid were removed from the peritoneal cavity. The catheter was removed and a sterile dressing was applied. The procedure was well tolerated. US/Paracentesis with US IMPRESSION: Ultrasound guided paracentesis. Electronically Signed: Rigo Britt, at 12:00 EDT , Service support ,
[2020-04-11 11:32] VITALS: BP 100/56; BP 88/44; BP 91/46; BP 91/59; PULSE 102; PULSE 116; PULSE 96; PULSE 99; RESP 14; RESP 16; TEMP 37.1; O2SAT 100; O2SAT 97; O2SAT 99
[2020-04-11] MEDS: Albumin Human 25% (50 mL) 12.5 GM/50 ML IV.SOLN IV (12:00)
[2020-04-11 12:52] VITALS: BP 97/43; PULSE 98; RESP 16; TEMP 36.4; O2SAT 99
== END ==
PROVIDERS: Family Provider Family Medicine; PCP Family Medicine; Referring Provider Internal Medicine Gastroenterology; Visit Provider Internal Medicine Gastroenterology
DX: K74.60 Unspecified cirrhosis of liver (principal)
CPT/HCPCS: 96365; 49083; P9047; A4216

== ENCOUNTER → 2020-04-18 10:23 | Outpatient (CLI) | payer MEDICARE, SELFPAY ==
[2019-05-04 11:25] VITALS: BMI 31.4
[2020-04-06 02:49] VITALS: BMI 30.7
--- NOTE | 2020-04-18 10:25 | US_ITS ---
PROCEDURE: Ultrasound guided paracentesis. DATE OF EXAMINATION: 04/18/2020. INDICATION: Female, 74 years old. Ascites. PHYSICIAN: Rigo Britt M.D. TECHNIQUE: The risks, benefits, and alternatives to the procedure were explained to the patient. The specific risks of bleeding, infection, and damage to bowel were detailed and accepted. Witnessed informed consent was obtained. The abdomen was ultrasonographically surveyed. An appropriate pocket of fluid was identified at the right lower quadrant. The skin were cleaned and prepped in the usual sterile fashion. Using ultrasound guidance, the peritoneal cavity was accessed with a 5-Zimbabwean paracentesis needle/catheter system. The trocar was removed. A total of 7050 ml of harsh-colored fluid were removed from the peritoneal cavity. The catheter was removed and a sterile dressing was applied. The procedure was well tolerated. US/Paracentesis with US IMPRESSION: Ultrasound guided paracentesis. Electronically Signed: Rigo Britt, at 12:31 EDT , Service support ,
[2020-04-18 10:42] VITALS: BP 141/70; BP 80/47; BP 92/44; PULSE 112; PULSE 96; PULSE 99; RESP 14; RESP 16; TEMP 37.4; O2SAT 96; O2SAT 98
--- NOTE | 2020-04-18 10:55 | NURSING ---
PT SAW MANAGER OF SELECTION AND ASSESSMENT YESTERDAY AT DIALYSIS. DR. BRIZUELA SPOKE WITH PT ABOUT [employer] FOR LIVER TRANSPLANT. PT SPOKE WITH NEPHEW AND CONTENT WITH CARE PLAN IS, NOT WISHING TO PURSUE TRANSPLANT.
[2020-04-18 11:33] VITALS: BP 81/43; PULSE 97; RESP 16; TEMP 36.6; O2SAT 100; BMI 30.7
[2020-04-18] MEDS: Albumin Human 25% (50 mL) 12.5 GM/50 ML IV.SOLN IV (11:55)
[2020-04-18 12:40] VITALS: BP 84/48; PULSE 92; RESP 16
== END ==
LOC: US 10:23 → MEDOUTP 11:25
PROVIDERS: Family Provider Family Medicine; PCP Family Medicine; Referring Provider Internal Medicine Gastroenterology; Visit Provider Internal Medicine Gastroenterology
DX: K74.60 Unspecified cirrhosis of liver (principal)
CPT/HCPCS: 96365; 49083; P9047; A4216

== ENCOUNTER → 2020-04-25 10:11 | Outpatient (CLI) | payer MEDICARE, SELFPAY ==
[2020-04-04 11:40] VITALS: BMI 30.3
[2020-04-18 11:33] VITALS: BMI 30.7
--- NOTE | 2020-04-25 10:16 | US_ITS ---
PROCEDURE: Ultrasound guided paracentesis. DATE OF EXAMINATION: 04/25/2020. INDICATION: Female, 74 years old. Ascites. PHYSICIAN: Rigo Britt M.D. TECHNIQUE: The risks, benefits, and alternatives to the procedure were explained to the patient. The specific risks of bleeding, infection, and damage to bowel were detailed and accepted. Witnessed informed consent was obtained. The abdomen was ultrasonographically surveyed. An appropriate pocket of fluid was identified at the right lower quadrant. The skin were cleaned and prepped in the usual sterile fashion. Using ultrasound guidance, the peritoneal cavity was accessed with a 5-Turkish paracentesis needle/catheter system. The trocar was removed. A total of 6250 ml of harsh-colored fluid were removed from the peritoneal cavity. The catheter was removed and a sterile dressing was applied. The procedure was well tolerated. US/Paracentesis with US IMPRESSION: Ultrasound guided paracentesis. Electronically Signed: Rigo Britt, at 11:37 EST , Service support ,
[2020-04-25 10:40] VITALS: BP 111/53; BP 113/60; BP 98/45; PULSE 91; PULSE 97; RESP 16; O2SAT 100
[2020-04-25 11:45] VITALS: BP 72/46; PULSE 86; RESP 16; TEMP 36.2; O2SAT 97; BMI 28.3
[2020-04-25] MEDS: Albumin Human 25% (50 mL) 12.5 GM/50 ML IV.SOLN IV (11:49)
[2020-04-25 12:37] VITALS: BP 92/45; PULSE 73; RESP 16; TEMP 36; O2SAT 100
== END ==
LOC: US 10:12 → MEDOUTP 11:28
PROVIDERS: PCP Family Medicine; Referring Provider Internal Medicine Gastroenterology; Visit Provider Internal Medicine Gastroenterology
DX: K74.60 Unspecified cirrhosis of liver (principal)
CPT/HCPCS: 96365; 49083; P9047; A4216

== ENCOUNTER → 2020-05-02 10:03 | Outpatient (CLI) | payer MEDICARE, SELFPAY ==
[2020-04-04 11:40] VITALS: BMI 30.3
[2020-04-25 11:45] VITALS: BMI 28.3
--- NOTE | 2020-05-02 10:05 | US_ITS ---
PROCEDURE: Ultrasound guided paracentesis. DATE OF EXAMINATION: 05/02/2020. INDICATION: Female, 74 years old. Ascites. PHYSICIAN: Rigo Britt M.D. TECHNIQUE: The risks, benefits, and alternatives to the procedure were explained to the patient. The specific risks of bleeding, infection, and damage to bowel were detailed and accepted. Witnessed informed consent was obtained. The abdomen was ultrasonographically surveyed. An appropriate pocket of fluid was identified at the right lower quadrant. The skin were cleaned and prepped in the usual sterile fashion. Using ultrasound guidance, the peritoneal cavity was accessed with a 5-Israeli paracentesis needle/catheter system. The trocar was removed. A total of 6700 ml of harsh-colored fluid were removed from the peritoneal cavity. The catheter was removed and a sterile dressing was applied. The procedure was well tolerated. US/Paracentesis with US IMPRESSION: Ultrasound guided paracentesis. Electronically Signed: Rigo Britt, at 11:55 EST , Service support ,
[2020-05-02 10:52] VITALS: BP 103/61; BP 87/48; BP 98/50; PULSE 101; PULSE 93; PULSE 95; RESP 14; RESP 16; TEMP 37.2; O2SAT 100; O2SAT 96
[2020-05-02 11:48] VITALS: BP 75/38; PULSE 91; RESP 18; TEMP 36.4; O2SAT 94; BMI 28.3
[2020-05-02] MEDS: Albumin Human 25% (50 mL) 12.5 GM/50 ML IV.SOLN IV (12:32)
[2020-05-02 13:32] VITALS: BP 73/40; PULSE 94; TEMP 35.9; O2SAT 98
[2020-05-02 13:54] LABS: Absolute Lymphocyte Count 0.42 X10^3/uL (0.83-4.51); Absolute Neutrophil Count 1.7 X10^3/uL (2.0-7.7); Basophil# 0.02 X10^3/uL; Basophil% 0.8 % (0-1); Eosinophil# 0.14 X10^3/uL; Eosinophils% 5.8 % (0-5); Hematocrit 23.2 % (37-47); Hemoglobin 7.3 g/dL (12.0-15.0); Lymphocyte # 0.42 X10^3/ul (4.0); Lymphocyte % 17.3 % (19-41); Mean Corp Hgb Conc 31.5 g/dL (32-36); Mean Corpuscular Hgb 33.3 pg (27.0-32.0); Mean Corpuscular Volume 105.9 fL (81-99); Mean Platelet Vol. 9.8 fl (6.2-12.0); Monocyte# 0.18 X10^3/uL; Monocyte% 7.4 % (0-10); NRBC Flagged by Analyzer 0 % (0-5); Neutrophil # 1.65 X10^3/uL (2.7-7.7); Neutrophil % 67.9 % (47-70); POSITIVE COUNT YES; POSITIVE DIFFERENTIAL YES; POSITIVE MORPHOLOGY YES; Platelet Count 61 K/mm3 (150-450); RBC Distribution Width CV 18.3 % (11.6-14.6); RBC Distribution Width SD 71.5 fl (35.1-43.9); Red Blood Count 2.19 M/mm3 (4.2-5.4); White Blood Count 2.4 K/mm3 (4.4-11.0)
--- NOTE | 2020-05-02 14:05 | CASEMGMT ---
RN Care Coordination Follow-up: Met with patient prior to her discharge from the infusion bay status post albumin infusion. Pt with notable abd pain making it difficult for patient to transfer from chair to w/c. Pt states it is across her abd and goes to her back. States this is not new pain but has increased from baseline. Pt states she has an appointment with Dr. Bay this afternoon at 3pm to address this. Pt states she had nausea and vomiting at HD on Wednesday and they had to stop a half hour early. Pt states she is not sure how much longer she can continue like this including the HD. Pt states she did have a virtual visit with Dr. Valdivia last Wednesday during her HD and with Dr. Max. Pt states they have discussed a possible liver transplant but she does not feel she is a candidate and she is not interested in pursuing this. Asked patient about palliative care and pt states she has heard of it but does not know a lot about it. Explained palliative care to patient and encouraged pt to discuss this with Dr Bay. Pt gave this RN CM permission to call Dr. Bay's office and ask them to discuss this at her appointment today. Call placed to Dr. Bay's office and spoke with nurse Vane who made a note for this to be addressed by Dr. Bay. Discussed pt's fall from last week. Pt states she did not fall but slipped off the couch and then was unable to get back up. Pt states she carries her phone with her at all times. Discussed possible medical alert. Pt states she does not want to pay for this but if insurance would cover she would consider it. She also states she does not want to wear anything around her neck due to her HD cath but would consider a risk device. Will investigate options for patient. Discussed continued driving. Pt states she feels she is doing ok with driving and does not want to put herself or others in danger. Today she did call her niece Shruthi to transport her. Per pt Shruthi is retired and recently moved to the area and is available to transport pt. Pt's nephew is also retired but her other niece still works. Pt states these family are available to assist with transportation and she therefore does not want to pay for alternate transportation. Will continue follow-up on the above. Librado Rodríguez RN CM
[2020-05-02 14:08] LABS: Ferritin 525 ng/mL (8-252); Iron 71 ug/dL (50-170); Iron Binding Capacity,Total 189 ug/dL (250-450)
[2020-05-02 14:24] LABS: Differential Indicated SCAN CRITERIA MET
[2020-05-02 14:25] LABS: Differential Comment SCANNED
[2020-05-02 14:26] LABS: Anisocytosis 2+; Macrocytosis 1+; Microcytosis 1+; Platelet Estimate MOD DEC (ADEQ)
[2020-05-02 21:45] LABS: Xtra Tube EP Lab EXTRA TUBE
[2020-05-03 13:49] LABS: Pathologist Review Reviewed
[2020-05-07 11:29] LABS: T4 Free Direct 1.12 ng/dL (0.76-1.46)
--- NOTE | 2020-05-07 16:37 | CASEMGMT ---
RN Care Coordination Follow-up: Call placed to patient at home. Updated patient that medical alert systems are not free. Pt states she is not interested in paying for a system. Pt states she carries her home phone with her whenever she gets up and takes her cell phone with her in her purse whenever she leaves the house. Pt states she has a cell phone that she paid to have a certain number of minutes on it so only uses it for emergencies. Pain: Pt states the pain has almost completely resolved and she is unclear as to the cause of pain but feels it was likely secondary to when she slipped off the couch. Dr. Bay visit: Pt states she had a good visit with Dr. Bay and states he recommended palliative care. He sent a referral and she met with them with her niece on Wednesday. She is signing up for their program. Pt states she had virtual visit with Dr. Barnes on this date. She reports her insulin was adjusted due to fluctuations in her blood sugar. Noted Dr. Barnes's note to state pt's insulin was changed to Novolog 70-30 26 units at breakfast and supper and on HD days: Lantus 26 units at breakfast and Novolog 70-30 26 units at supper. Pt states she checks her blood glucose each morning. Pt's niece and other family have been transporting pt to and from hemodialysis. She expressed that this has been working well especially when her BP is low which she reports to have been on Sunday 05/06 at 79/something. Pt continues to state I am not sure how much longer I can do this. Pt relays that she was told she may have some depression and is working with Palliative Care on this. Pt states she is trying to change her frame of mind and she prefers to remain upbeat. Pt denied any further questions or concerns at this time. Librado Rodríguez RN CM
== END ==
LOC: US 10:03 → MEDOUTP 11:30
PROVIDERS: Internal Medicine Endocrinology, Diabetes & Metabolism; Internal Medicine Hematology & Oncology; PCP Family Medicine; Referring Provider Internal Medicine Gastroenterology; Visit Provider Internal Medicine Gastroenterology
DX: K74.60 Unspecified cirrhosis of liver (principal); N18.4 Chronic kidney disease, stage 4 (severe); E83.52 Hypercalcemia; E03.9 Hypothyroidism, unspecified
CPT/HCPCS: 96365; 49083; 82728; 83540; 83550; 84439; 84443; 85025; P9047; A4216

== ENCOUNTER → 2020-05-09 10:14 | Outpatient (CLI) | payer MEDICARE, SELFPAY ==
[2020-04-04 11:40] VITALS: BMI 30.3
[2020-05-07 11:41] VITALS: BMI 32.5
--- NOTE | 2020-05-09 10:17 | US_ITS ---
PROCEDURE: Ultrasound guided paracentesis. DATE OF EXAMINATION: 05/09/2020. INDICATION: Female, 74 years old. Ascites. PHYSICIAN: Rigo Britt M.D. TECHNIQUE: The risks, benefits, and alternatives to the procedure were explained to the patient. The specific risks of bleeding, infection, and damage to bowel were detailed and accepted. Witnessed informed consent was obtained. The abdomen was ultrasonographically surveyed. An appropriate pocket of fluid was identified at the right lower quadrant. The skin were cleaned and prepped in the usual sterile fashion. Using ultrasound guidance, the peritoneal cavity was accessed with a 5-Austrian paracentesis needle/catheter system. The trocar was removed. A total of 5950 ml of harsh-colored fluid were removed from the peritoneal cavity. The catheter was removed and a sterile dressing was applied. The procedure was well tolerated. US/Paracentesis with US IMPRESSION: Ultrasound guided paracentesis. Electronically Signed: Rigo Britt, at 12:50 EST , Service support ,
[2020-05-09 10:41] VITALS: BP 101/49; BP 112/47; BP 78/36; BP 91/50; PULSE 101; PULSE 103; PULSE 107; PULSE 97; RESP 16; RESP 18; TEMP 36.8; O2SAT 100; O2SAT 97
[2020-05-09 11:42] VITALS: BP 82/37; PULSE 95; RESP 18; TEMP 36.4; O2SAT 100; BMI 30.7
[2020-05-09] MEDS: Albumin Human 25% (50 mL) 12.5 GM/50 ML IV.SOLN IV (11:44)
[2020-05-09 12:42] VITALS: BP 79/42; PULSE 72; RESP 16; O2SAT 100
== END ==
LOC: US 10:14 → MEDOUTP 11:24
PROVIDERS: PCP Family Medicine; Referring Provider Internal Medicine Gastroenterology; Visit Provider Internal Medicine Gastroenterology
DX: K74.60 Unspecified cirrhosis of liver (principal)
CPT/HCPCS: 96365; 49083; P9047; A4216

== ENCOUNTER → 2020-05-15 09:05 | Outpatient (CLI) | payer MEDICARE, SELFPAY ==
[2020-04-04 11:40] VITALS: BMI 30.3
[2020-05-09 11:42] VITALS: BMI 30.7
--- NOTE | 2020-05-15 09:06 | US_ITS ---
PROCEDURE: ULTRASOUND GUIDED PARACENTESIS CLINICAL HISTORY: Female, 74 years old. ASCITES CONSENT: Yes Time-Out Called: Yes. Consent form signed: Yes. PT-PTT Levels Checked: Yes. SEDATION: None TECHNIQUE: With ultrasound and a site was marked over the right lower quadrant FINDINGS: FLUID PRE-PROCEDURE There is posterior enhancement. The findings appear anechoic. There is no loculation. A 5 Stateless needle was inserted into the abdominal ascites and 3300 cc of clear yellow fluid was aspirated from the abdominal cavity. US/Paracentesis with US IMPRESSION: 3300 cc of clear yellow fluid was aspirated from the abdominal cavity. Electronically Signed: Miko Ernst, at 10:08 EST Tel , Service support ,
[2020-05-15 09:25] VITALS: BP 76/37; BP 77/50; BP 85/38; PULSE 80; PULSE 82; PULSE 84; RESP 18; TEMP 36.8; O2SAT 100
== END ==
PROVIDERS: PCP Family Medicine; Referring Provider Internal Medicine Gastroenterology; Visit Provider Internal Medicine Gastroenterology
DX: K74.60 Unspecified cirrhosis of liver (principal)
CPT/HCPCS: 49083

== ENCOUNTER → 2020-05-23 10:08 | Outpatient (CLI) | payer MEDICARE, SELFPAY ==
[2020-04-04 11:40] VITALS: BMI 30.3
[2020-05-09 11:42] VITALS: BMI 30.7
--- NOTE | 2020-05-23 10:10 | US_ITS ---
PROCEDURE: Ultrasound guided paracentesis. DATE OF EXAMINATION: 05/23/2020. INDICATION: Female, 74 years old. Ascites. PHYSICIAN: Rigo Britt M.D. TECHNIQUE: The risks, benefits, and alternatives to the procedure were explained to the patient. The specific risks of bleeding, infection, and damage to bowel were detailed and accepted. Witnessed informed consent was obtained. The abdomen was ultrasonographically surveyed. An appropriate pocket of fluid was identified at the right lower quadrant. The skin were cleaned and prepped in the usual sterile fashion. Using ultrasound guidance, the peritoneal cavity was accessed with a 5-Guamanian paracentesis needle/catheter system. The trocar was removed. A total of 5900 ml of harsh-colored fluid were removed from the peritoneal cavity. The catheter was removed and a sterile dressing was applied. The procedure was well tolerated. US/Paracentesis with US IMPRESSION: Ultrasound guided paracentesis. Electronically Signed: Rigo Britt, at 11:28 EST , Service support ,
[2020-05-23 10:43] VITALS: BP 87/31; BP 88/43; BP 95/48; PULSE 80; PULSE 92; PULSE 97; RESP 14; RESP 18; TEMP 37.1; O2SAT 96; O2SAT 97; O2SAT 99
[2020-05-23 11:30] VITALS: BP 82/46; PULSE 90; RESP 16; TEMP 36.1; O2SAT 100
[2020-05-23] MEDS: Albumin Human 25% (50 mL) 12.5 GM/50 ML IV.SOLN IV (11:33)
[2020-05-23] MEDS: 0.9 % NaCl (Sterile) Posiflush 10 mL IV (11:42)
[2020-05-23] MEDS: 0.9% NaCl VAD Flush IV (12:23)
[2020-05-23 12:25] VITALS: BP 81/41; PULSE 96; RESP 16; O2SAT 97
== END ==
PROVIDERS: PCP Family Medicine; Referring Provider Internal Medicine Gastroenterology; Visit Provider Internal Medicine Gastroenterology
DX: K74.60 Unspecified cirrhosis of liver (principal)
CPT/HCPCS: 96365; 49083; J7050; P9047

== ENCOUNTER → 2020-05-30 10:00 | Outpatient (CLI) | payer MEDICARE, SELFPAY ==
[2020-04-04 11:40] VITALS: BMI 30.3
[2020-05-09 11:42] VITALS: BMI 30.7
--- NOTE | 2020-05-30 10:03 | US_ITS ---
PROCEDURE: Ultrasound guided paracentesis. DATE OF EXAMINATION: 05/30/2020. INDICATION: Female, 74 years old. Ascites. PHYSICIAN: Rigo Britt M.D. TECHNIQUE: The risks, benefits, and alternatives to the procedure were explained to the patient. The specific risks of bleeding, infection, and damage to bowel were detailed and accepted. Witnessed informed consent was obtained. The abdomen was ultrasonographically surveyed. An appropriate pocket of fluid was identified at the left lower quadrant. The skin were cleaned and prepped in the usual sterile fashion. Using ultrasound guidance, the peritoneal cavity was accessed with a 5-Amharic paracentesis needle/catheter system. The trocar was removed. A total of 6550 ml of harhs-colored fluid were removed from the peritoneal cavity. The catheter was removed and a sterile dressing was applied. The procedure was well tolerated. US/Paracentesis with US IMPRESSION: Ultrasound guided paracentesis. Electronically Signed: Rigo Britt, at 12:07 EST , Service support ,
[2020-05-30 10:54] VITALS: BP 103/50; BP 93/44; BP 96/48; PULSE 108; PULSE 98; PULSE 99; RESP 16; RESP 18; TEMP 37; O2SAT 100
[2020-05-30 11:39] VITALS: BP 73/36; PULSE 99; RESP 16; TEMP 36.3; O2SAT 100; BMI 31.4
[2020-05-30] MEDS: 0.9 % NaCl (Sterile) Posiflush 10 mL IV (11:40)
[2020-05-30] MEDS: Albumin Human 25% (50 mL) 12.5 GM/50 ML IV.SOLN IV (11:49)
[2020-05-30] MEDS: 0.9% NaCl VAD Flush IV (12:30)
[2020-05-30 12:32] VITALS: BP 77/34; PULSE 92; RESP 16; O2SAT 100
== END ==
LOC: US 10:02 → MEDOUTP 11:32
PROVIDERS: PCP Family Medicine; Referring Provider Internal Medicine Gastroenterology; Visit Provider Internal Medicine Gastroenterology
DX: K74.60 Unspecified cirrhosis of liver (principal)
CPT/HCPCS: 96365; 49083; P9047; A4216

== ENCOUNTER 2020-06-03 07:52 | Emergency (ER) | payer MEDICARE, SELFPAY ==
[2020-05-30 11:39] VITALS: BMI 31.4
[2020-06-03 07:53] VITALS: BP 99/43; PULSE 103; RESP 16; TEMP 36.8; O2SAT 100; BMI 30.5
--- NOTE | 2020-06-03 08:15 | ED.DCSUM_ITS ---
- ER Visit Summary Date of Service: 06/03/20 Chief Complaint: I do not feel good History of Present Illness: The patient is a 74 F who presents with general illness feelings that began today. Patient states she woke up around 4 AM and had a bowel movement at that time. Patient thought that it was dark. Patient admits to some discomfort of her abdomen. Patient denies any pain. Patient admits to some mild shortness of breath with exertion. Patient denies any fevers or chills. Patient denies any chest pain. Patient does admit to some general aches. Patient denies any loss of taste or smell. Patient was supposed to go to dialysis this morning since she normally goes there on Wednesday and Wednesday. Patient states that she gets a paracentesis every morning. Physical Examination: Vital signs are stable. Patient is afebrile. Patient is in no acute distress. Oral mucosa is pink and moist. Neck is supple. Trachea is midline. There is no JVD. Heart was regular rate and rhythm. Lungs are clear and equal bilaterally. Abdomen is soft. Bowel sounds are normal. There is no tenderness. There is no rebound or guarding noted. Rectal exam showed good sphincter tone. There is brown stool. Cranial nerves II through XII are intact. There are no focal motor or sensory deficits. Test Results: CBC shows a pancytopenia with a white blood cell count of 2.7, hemoglobin of 6.2, and platelet count of 68. Patient does have a history of pancytopenia. Comprehensive metabolic profile showed an elevated BUN of 55 and a creatinine of 5.91. Patient's previous creatinine levels have been between 2 and 3. Total bilirubin was only slightly elevated at 1.10. Remainder of the LFTs were within normal limits. Emergency Department Course and Treatment: Patient was typed and crossmatched for 1 unit of packed red blood cells. Case was discussed with Dr. Fierro. He is agreeable to admitting the patient here. Patient did tell me that she had an endoscopy done by Dr. Herzog in April that was normal. Case was discussed with the hospitalist. He does not feel comfortable keeping the patient here at [facility]. He recommended transferring the patient. Case was discussed with Dr. León at [facility]. He accepted transfer the patient. Patient understands and is agreeable with the plan. All questions were answered. Disposition: Transfer to [facility] Impression: 1. Gastrointestinal bleeding 2. Acute on chronic kidney disease 3. Pancytopenia This note was generated with [employer] dictation software. It may contain incorrect words, spelling, and punctuation that were not noted in review of the chart prior to signing ED Disposition - Plan for ED Patient: Disposition: [facility] - Other Diagnosis: Gastrointestinal bleeding, Acute kidney injury superimposed on chronic kidney disease, Pancytopenia Referrals: Nicola Bay MD [Primary Care Provider] -
[2020-06-03 08:33] VITALS: BP 97/67
[2020-06-03 08:41] LABS: Basophil# 0.01 X10^3/uL; Basophil% 0.4 % (0-1); Eosinophil# 0.12 X10^3/uL; Eosinophils% 4.5 % (0-5); Hematocrit 19.3 % (37-47); Hemoglobin 6.2 g/dL (12.0-15.0); Lymphocyte % 11.3 % (19-41); Mean Corp Hgb Conc 32.1 g/dL (32-36); Mean Corpuscular Hgb 35.4 pg (27.0-32.0); Mean Corpuscular Volume 110.3 fL (81-99); Mean Platelet Vol. 9.7 fl (6.2-12.0); Monocyte% 7.5 % (0-10); NRBC Flagged by Analyzer 0 % (0-5); Neutrophil # 2.01 X10^3/uL (2.7-7.7); Neutrophil % 75.9 % (47-70); POSITIVE COUNT YES; POSITIVE DIFFERENTIAL YES; POSITIVE MORPHOLOGY YES; Platelet Count 68 K/mm3 (150-450); RBC Distribution Width CV 18.6 % (11.6-14.6); RBC Distribution Width SD 74.1 fl (35.1-43.9); Red Blood Count 1.75 M/mm3 (4.2-5.4); White Blood Count 2.7 K/mm3 (4.4-11.0)
[2020-06-03 08:43] LABS: Differential Indicated SCAN CRITERIA MET
[2020-06-03 09:00] LABS: Anisocytosis 1+; Basophilic Stippling RARE; Hypochromasia 1+; Macrocytosis 1+; Platelet Estimate MKD DEC (ADEQ)
[2020-06-03 09:01] LABS: AST(SGOT) 26 U/L (15-37); Alanine Aminotransfer ALT/SGPT 25 U/L (13-56); Albumin, Serum 2.5 g/dL (3.2-5.0); Alkaline Phosphatase 108 U/L (45-117); Anion Gap 9 (5-15); BUN 55 mg/dL (7-18); BUN/Creat Ratio 9.3 RATIO (10-20); Calcium,Total 8.5 mg/dL (8.5-10.1); Chloride 103 mmol/L (98-107); Creatinine, Serum 5.91 mg/dL (0.55-1.02); EST Glomerular Filtration Rate 7 mL/min (>60); Est Glom Filt Rate - Afr Amer 9 mL/min (>60); Estimated Creatinine Clearance 6.71 ml/min; Globulin 2.5 g/dL (2.2-4.2); Glucose 231 mg/dL (74-106); Lipase 241 U/L (73-393); Potassium 5.2 mmol/L (3.5-5.1); Sodium Level 137 mmol/L (136-145)
[2020-06-03 09:44] VITALS: BP 84/56; PULSE 98; RESP 18; TEMP 36.6; O2SAT 100
--- NOTE | 2020-06-03 09:52 | ED.RN ---
PT CALLED [facility] WHO IS POA AND UPDATED. DENIES NEED FOR ED TO CALL ANYONE ELSE, [facility] NOTIFIED BY ED SENIOR GRANTS OFFICER.
[2020-06-03 11:16] VITALS: BP 89/49; PULSE 98; RESP 18; O2SAT 99
[2020-06-03 11:21] VITALS: BP 89/49; PULSE 98; RESP 16; TEMP 36.6; O2SAT 99
[2020-06-04 13:01] LABS: Pathologist Review Reviewed
== END 2020-06-03 11:53 | disposition short-term general hospital (02) ==
PROVIDERS: Emergency Provider Emergency Medicine; PCP Family Medicine
DX: K92.2 Gastrointestinal hemorrhage, unspecified (principal); N17.9 Acute kidney failure, unspecified; N18.9 Chronic kidney disease, unspecified; D61.818 Other pancytopenia; E03.9 Hypothyroidism, unspecified; E11.9 Type 2 diabetes mellitus without complications; K21.9 Gastro-esophageal reflux disease without esophagitis; Z79.4 Long term (current) use of insulin
CPT/HCPCS: 36591; 80053; 82274; 83690; 85025; 86850; 86900; 86901; 86920; 86922; 87426; 99285; A4216

== ENCOUNTER → 2020-06-11 10:05 | Outpatient (CLI) | payer MEDICARE, SELFPAY ==
[2020-04-04 11:40] VITALS: BMI 30.3
[2020-06-03 07:53] VITALS: BMI 30.5
--- NOTE | 2020-06-11 10:07 | US_ITS ---
PROCEDURE: Ultrasound guided paracentesis. DATE OF EXAMINATION: 06/11/2020. INDICATION: Female, 74 years old. Ascites. PHYSICIAN: Rigo Britt M.D. TECHNIQUE: The risks, benefits, and alternatives to the procedure were explained to the patient. The specific risks of bleeding, infection, and damage to bowel were detailed and accepted. Witnessed informed consent was obtained. The abdomen was ultrasonographically surveyed. An appropriate pocket of fluid was identified at the left lower quadrant. The skin were cleaned and prepped in the usual sterile fashion. Using ultrasound guidance, the peritoneal cavity was accessed with a 5-Sami paracentesis needle/catheter system. The trocar was removed. A total of 6200 ml of harsh-colored fluid were removed from the peritoneal cavity. The catheter was removed and a sterile dressing was applied. The procedure was well tolerated. US/Paracentesis with US IMPRESSION: Ultrasound guided paracentesis. Electronically Signed: Rigo Britt, at 12:49 EST , Service support ,
[2020-06-11 10:51] VITALS: BP 113/35; BP 96/32; BP 96/45; PULSE 102; PULSE 94; PULSE 97; RESP 18; TEMP 37.1; O2SAT 100
[2020-06-11 11:45] VITALS: BP 87/31; PULSE 95; RESP 16; TEMP 35.8; O2SAT 100; BMI 30.5
[2020-06-11] MEDS: Albumin Human 25% (50 mL) 12.5 GM/50 ML IV.SOLN IV (12:10)
--- NOTE | 2020-06-11 12:10 | CASEMGMT ---
RN Care Coordination Follow-Up: Met with pt in the infusion bay s/p paracentesis while she was awaiting albumin infusion. She states she is comfortable and not having any pain at this time. Pt was in the ED 06/03 w/ and transferred to [facility]. Per pt, she returned home on 06/06. EVAN ANDERSON inquired about how she has been doing since returning home. She states has been feeling pretty good. She reports she had an upper scope done and they sealed the veins in my stomach that were seeping again. She also reports she received 2 units of blood while there. Pt states she had not had any further falls or episodes where she has slipped off of the couch. She reports she uses the walker at all times and carries her cell phone with her at all times in the same hand that she is holding onto the walker with. Discussed with pt options of purchasing a basket for her walker or bag that can hang on the bars of the walker for safety--as this would allow her to hold onto the walker more safely. EVAN ANDERSON did on-line search and showed pt some examples of items that are available for the walker. Pt states she may see if her nephew/niece can help her order something. She states in the mean-time, she may tie a [employer] [place] bag to the walker so she can place her phone in there to free her hands up to hold onto the walker. Palliative Care: Pt states Palliative care is going well. She states they had just started her on a new prescription that was Like a gummy bear to help as a sleep aide, but that she has only taken it twice and it caused horrible dream. She states she did report this to Palliative care and the medication is on hold for now. They are planning to f/u with her today about this. Dialysis: States, I'm tolerating this better now. States it is helping with taking extra soft blankets and her pattern cutter gave her a hand warmer that is helping to keep her warm/more comfortable during dialysis. Pt states, I'm trying to make the best of it. Dr Barnes/Insulin: Pt reports with the change in insulin from Dr Barnes, that her BS's have mostly been b/w 110's to 130's, that she is still checking her BS's every AM, and that she is keeping record of the results. Appts: Dr Bay: Pt has not made appt with him yet, s/p hospitalization last week. She is aware she still needs to do this and plans to do so after the Holidays. Dr Barnes: Inquired about f/u appt after insulin adjusted. Pt states Oh, I think I need to do that yet with the results of my sugars. Pt denies having any concerns or questions at this time. Lei ACOSTAN RN CM
[2020-06-11 13:12] VITALS: BP 91/44; PULSE 94; RESP 16; TEMP 36.2
== END ==
LOC: US 10:06 → MEDOUTP 11:31
PROVIDERS: PCP Family Medicine; Referring Provider Internal Medicine Gastroenterology; Visit Provider Internal Medicine Gastroenterology
DX: K74.60 Unspecified cirrhosis of liver (principal)
CPT/HCPCS: 96365; 49083; P9047; A4216

== ENCOUNTER → 2020-06-18 10:10 | Outpatient (CLI) | payer MEDICARE, SELFPAY ==
[2020-04-04 11:40] VITALS: BMI 30.3
[2020-06-11 11:45] VITALS: BMI 30.5
--- NOTE | 2020-06-18 10:12 | US_ITS ---
PROCEDURE: ULTRASOUND GUIDED PARACENTESIS CLINICAL HISTORY: Female, 74 years old. ASCITES CONSENT: The risks, benefits and alternatives to the procedure were explained to the patient, and the patient agreed to the procedure and signed the consent. 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 PROCEDURE/TECHNIQUE: The risks, benefits, and alternatives to the procedure were explained to patient, and the patient agreed to the procedure and signed a consent form for the procedure. TECHNIQUE: Under the ultrasound guidance using sterile technique and after infiltration of the skin and subcutaneous soft tissues with 10 mL of lidocaine 1% a 5 Danish drainage catheter is introduced in the lower part of the abdomen. 7200 mL of fluid were removed sample sent to lab for evaluation. The patient tolerated the procedure there was no immediate complication. FINDINGS: FLUID PRE-PROCEDURE There is posterior enhancement. The findings appear anechoic. There is no loculation. FLUID POST-PROCEDURE Amount of fluid drained: 7200 ml. US/Paracentesis with US IMPRESSION: Successful ultrasound-guided paracentesis. Electronically Signed: Samra Martinez, at 14:56 EST Tel , Service support ,
[2020-06-18 10:36] VITALS: BP 101/51; BP 104/49; BP 104/58; BP 106/58; BP 112/51; PULSE 100; PULSE 104; PULSE 89; PULSE 92; PULSE 98; RESP 16; RESP 18; TEMP 37; O2SAT 100
[2020-06-18] MEDS: Albumin Human 25% (50 mL) 12.5 GM/50 ML IV.SOLN IV (11:50)
[2020-06-18 11:53] VITALS: BP 78/40; PULSE 90; RESP 16; TEMP 36; O2SAT 100; BMI 30.5
[2020-06-18] MEDS: 0.9% NaCl VAD Flush IV (12:36)
[2020-06-18 12:49] VITALS: BP 96/50; PULSE 96; RESP 16; TEMP 35.9
== END ==
LOC: US 10:10 → MEDOUTP 11:37
PROVIDERS: PCP Family Medicine; Referring Provider Internal Medicine Gastroenterology; Visit Provider Internal Medicine Gastroenterology
DX: K74.60 Unspecified cirrhosis of liver (principal)
CPT/HCPCS: 96365; 49083; P9047; A4216

== ENCOUNTER → 2020-06-27 10:12 | Outpatient (CLI) | payer MEDICARE, SELFPAY ==
[2020-04-04 11:40] VITALS: BMI 30.3
[2020-06-18 11:53] VITALS: BMI 30.5
--- NOTE | 2020-06-27 10:15 | US_ITS ---
PROCEDURE: Ultrasound guided paracentesis. DATE OF EXAMINATION: 06/27/2020. INDICATION: Female, 74 years old. Ascites. PHYSICIAN: Rigo Britt M.D. TECHNIQUE: The risks, benefits, and alternatives to the procedure were explained to the patient. The specific risks of bleeding, infection, and damage to bowel were detailed and accepted. Witnessed informed consent was obtained. The abdomen was ultrasonographically surveyed. An appropriate pocket of fluid was identified at the left lower quadrant. The skin were cleaned and prepped in the usual sterile fashion. Using ultrasound guidance, the peritoneal cavity was accessed with a 5-Serbian paracentesis needle/catheter system. The trocar was removed. A total of 7050 ml of harsh-colored fluid were removed from the peritoneal cavity. The catheter was removed and a sterile dressing was applied. The procedure was well tolerated. US/Paracentesis with US IMPRESSION: Ultrasound guided paracentesis. Electronically Signed: Rigo Britt, at 11:37 EST , Service support ,
[2020-06-27 10:28] VITALS: BP 103/55; BP 104/53; BP 99/51; PULSE 101; PULSE 93; RESP 18; RESP 20; TEMP 37; O2SAT 100; O2SAT 98; O2SAT 99
[2020-06-27] MEDS: Albumin Human 25% (50 mL) 12.5 GM/50 ML IV.SOLN IV (11:44)
[2020-06-27] MEDS: 0.9% NaCl Peripheral Flush Adult/Peds IV ×2 (11:48→12:27)
[2020-06-27 11:49] VITALS: BP 78/42; PULSE 91; RESP 16; TEMP 35.8; O2SAT 100; BMI 33.0
--- NOTE | 2020-06-27 12:20 | CASEMGMT ---
RN Care Coordination Follow-up: Met with pt in the infusion bay s/p paracentesis while she was awaiting albumin infusion. Paracentesis: Pt continues to come to [facility] for weekly paracentesis and is tolerating them well. Palliative Care: Nurse is scheduled for home visit next Sunday 07/02. She states she has been sleeping better and has not needed to use a sleep aide recently. Dialysis: Continues to go to dialysis [facility]. She states they have been able to decrease her chair time to 3 1/2 hours and the lesser time is more tolerable. She reports she did feel nervous and fidgety yesterday during dialysis and that she had pain in her shoulders and some CP, which she did report to dialysis staff. She states she feels it was most d/t being uncomfortable/fidgety/anxiety. EVAN ANDERSON encouraged pt to discuss with her doctor possible options of taking medication prior to or maybe even 1/[address] through dialysis to help her with the anxiety/restlessness. Pt states she had not considered that before but thought it may be very helpful. She states plans to discuss with Dr Valdivia or the staff at dialysis tomorrow. /Insulin: Pt continues to record her BS's, and states thinks her BS was 181 this morning. She states she has not contacted Dr Barnes w/the results of her BS's since the insulin was adjusted but is aware she still needs to do this. EVAN ANDERSON encouraged pt to call Dr Barnes's office soon, as she may want to adjust her insulin dose. She voices understanding. Appts: Pt states has not f/u with Dr Bay yet since hospitalization in May. She plans to call to schedule an appt. Family support: Pt states family continues to be supportive and have been providing transportation to all appts. She voices much appreciation for them and states they would do anything for me that I would need. They continue to provide meals for her that she can warm up. Pt states she also been feeling well enough to cook some eggs on occasion lately. Home safety: She denies having any further falls at home and continues to use her walker when ambulating. She has not purchased a basket or bag for her walker yet but is still considering getting something, as she states she realizes it would be safer for her so she can use both hands on the walker. She reports it has been difficult for her to go up the one step in the garage to enter her home, so she has started using the front door entrance where there are no steps, and she did well with this. Pt denies having any concerns/questions/needs at this time. Lei BSN RN CM
[2020-06-27 12:39] VITALS: BP 90/42; PULSE 94; RESP 14; TEMP 36.1; O2SAT 97
== END ==
LOC: US 10:12 → MEDOUTP 11:28
PROVIDERS: PCP Family Medicine; Referring Provider Internal Medicine Gastroenterology; Visit Provider Internal Medicine Gastroenterology
DX: K74.60 Unspecified cirrhosis of liver (principal)
CPT/HCPCS: 96365; 49083; J7050; P9047; A4216

== ENCOUNTER → 2020-07-04 10:17 | Outpatient (CLI) | payer MEDICARE, SELFPAY ==
[2020-05-09 11:42] VITALS: BMI 30.7
[2020-06-27 11:49] VITALS: BMI 33.0
--- NOTE | 2020-07-04 10:20 | US_ITS ---
PROCEDURE: Ultrasound guided paracentesis. DATE OF EXAMINATION: 07/04/2020.. INDICATION: Female, 74 years old. Ascites. PHYSICIAN: Rigo Britt M.D. TECHNIQUE: The risks, benefits, and alternatives to the procedure were explained to the patient. The specific risks of bleeding, infection, and damage to bowel were detailed and accepted. Witnessed informed consent was obtained. The abdomen was ultrasonographically surveyed. An appropriate pocket of fluid was identified at the right lower quadrant. The skin were cleaned and prepped in the usual sterile fashion. Using ultrasound guidance, the peritoneal cavity was accessed with a 5-Belarusian paracentesis needle/catheter system. The trocar was removed. A total of 7350 ml of harsh-colored fluid were removed from the peritoneal cavity. The catheter was removed and a sterile dressing was applied. The procedure was well tolerated. US/Paracentesis with US IMPRESSION: Ultrasound guided paracentesis. Electronically Signed: Rigo Britt, at 12:19 EST , Service support ,
[2020-07-04 10:41] VITALS: BP 103/56; BP 83/42; BP 87/48; PULSE 104; PULSE 96; PULSE 97; RESP 18; RESP 22; TEMP 36.9; O2SAT 96; O2SAT 99
[2020-07-04] MEDS: Albumin Human 25% (50 mL) 12.5 GM/50 ML IV.SOLN IV (11:42)
[2020-07-04 11:44] VITALS: BP 80/51; PULSE 53; RESP 18
[2020-07-04 12:29] VITALS: BP 78/45; PULSE 68
--- NOTE | 2020-07-10 12:44 | CASEMGMT ---
Addendum entered by Sree Allen 07/10/20 13:41: Pt has appts scheduled with Dr Bay tomorrow 07/11/20 @ 3:10 PM and a phone appt with Dr Barnes on 08/13. Original Note: EVAN ANDERSON [employer] Sales Representative f/u: Call placed to [facility] [place] and spoke w/Thelma. She was notified pt has signed up with Palliative care. She states she was not aware of this and is appreciative of this info. EVAN ANDERSON inquired about temporary dialysis catheter pt has had in place and what the plans are re: this. She states plans are for Dr Valdivia to f/u with pt about this soon re: possible replacement of more permanent line, if pt agreeable. She states Dr Valdivia may leave temp catheters in place indefinitely (as long as no complications/signs of infection) if pt is not agreeable to a more permanent line or fistula. Thelma also made aware pt voices has been having difficulty w/tolerating dialysis, as she feels anxious/restless and that pt is interested in pre-medication prior to dialysis. Thelma states Dr Valdivia typically has refers pt to f/u with Palliative or PCP for this. Call placed to Palliative Care and spoke w/Deisy. She states pt has mentioned she gets anxious/nervous during the day and also is having difficulty sleeping, but did not mention to her specifically that the anxiety was during dialysis. She states they just started pt on PRN Ativan 0.125 mg QD yesterday and they plan to f/u with pt tomorrow to see how she is tolerating it and may increase the dose or frequency if tolerating well and pt could then use prior to dialysis if needed. She also states pt is now taking Trazadone 50 mg and clarified that the medication pt had tried previously as a sleep-aide that caused bad dreams was Melatonin. Call placed back to Thelma @ [facility] and she was notified of above. EVAN ANDERSON also inquired if Ativan is removed during dialysis. She states she does not think it is, but if it is, it would only be partially removed (20-30%) and therefore may still be effective. Call placed back to Palliative Care and VM message left re: same. Lei HACKETT RN, CM
== END ==
LOC: US 10:18 → MEDOUTP 11:29
PROVIDERS: PCP Family Medicine; Visit Provider Internal Medicine Gastroenterology
DX: K74.60 Unspecified cirrhosis of liver (principal)
CPT/HCPCS: 96365; 49083; P9047; A4216

== ENCOUNTER → 2020-07-11 10:13 | Outpatient (CLI) | payer MEDICARE, SELFPAY ==
[2020-05-09 11:42] VITALS: BMI 30.7
[2020-06-27 11:49] VITALS: BMI 33.0
--- NOTE | 2020-07-11 10:17 | US_ITS ---
PROCEDURE: Ultrasound guided paracentesis. DATE OF EXAMINATION: 07/11/2020. INDICATION: Female, 74 years old. Ascites. PHYSICIAN: Rigo Britt M.D. TECHNIQUE: The risks, benefits, and alternatives to the procedure were explained to the patient. The specific risks of bleeding, infection, and damage to bowel were detailed and accepted. Witnessed informed consent was obtained. The abdomen was ultrasonographically surveyed. An appropriate pocket of fluid was identified at the left lower quadrant. The skin were cleaned and prepped in the usual sterile fashion. Using ultrasound guidance, the peritoneal cavity was accessed with a 5-Uzbek paracentesis needle/catheter system. The trocar was removed. A total of 7000 ml of harsh-colored fluid were removed from the peritoneal cavity. The catheter was removed and a sterile dressing was applied. The procedure was well tolerated. US/Paracentesis with US IMPRESSION: Ultrasound guided paracentesis. Electronically Signed: Rigo Britt MD at 11:54 EST , Service support ,
[2020-07-11 11:23] VITALS: BP 107/55; BP 90/46; BP 97/24; PULSE 100; PULSE 108; PULSE 96; RESP 16; O2SAT 100; O2SAT 98; O2SAT 99
[2020-07-11 11:34] VITALS: BP 86/48; PULSE 80; RESP 16; TEMP 36.1; O2SAT 100; BMI 33.0
[2020-07-11] MEDS: Albumin Human 25% (50 mL) 12.5 GM/50 ML IV.SOLN IV (11:37)
--- NOTE | 2020-07-17 13:40 | CASEMGMT ---
Addendum entered by Sree Allen 07/17/20 14:51: Spoke w/TINO Olivas, @ [facility]. She states they had noted pt was having increase in edema to BLE, to above her knees and had reached out to Dr Bay re: same. She was made aware Dr Bay has increased Lasix to 40 mg BID. She states they are also awaiting a call from pt today to discuss Ativan and effectiveness. Current Ativan PRN order is for 0.125 mg and she will evaluate for increase in dose if pt tolerating well. Original Note: EVAN ANDERSON NOTE: Call placed to Dr Bay's office--f/u for appt 07/11/20. Per nurse, Dr Bay's note is not completed, so unable to provide much info to this conventional mortgage underwriter at this time, but it was noted that Lasix was increased to 40 mg BID. Medication summary updated at this time. Lei HACKETT RN CM
== END ==
LOC: US 10:14 → MEDOUTP 11:17
PROVIDERS: PCP Family Medicine; Referring Provider Internal Medicine Gastroenterology; Visit Provider Internal Medicine Gastroenterology
DX: K74.60 Unspecified cirrhosis of liver (principal)
CPT/HCPCS: 96365; 49083; P9047; A4216

== ENCOUNTER → 2020-07-18 10:19 | Outpatient (CLI) | payer MEDICARE, SELFPAY ==
[2020-05-09 11:42] VITALS: BMI 30.7
[2020-07-11 11:34] VITALS: BMI 33.0
--- NOTE | 2020-07-18 10:21 | US_ITS ---
PROCEDURE: Ultrasound guided paracentesis. DATE OF EXAMINATION: 07/18/2020. INDICATION: Female, 74 years old. Ascites. PHYSICIAN: Rigo Britt M.D. TECHNIQUE: The risks, benefits, and alternatives to the procedure were explained to the patient. The specific risks of bleeding, infection, and damage to bowel were detailed and accepted. Witnessed informed consent was obtained. The abdomen was ultrasonographically surveyed. An appropriate pocket of fluid was identified at the right lower quadrant. The skin were cleaned and prepped in the usual sterile fashion. Using ultrasound guidance, the peritoneal cavity was accessed with a 5-Belizean paracentesis needle/catheter system. The trocar was removed. A total of 7800 ml of harsh-colored fluid were removed from the peritoneal cavity. The catheter was removed and a sterile dressing was applied. The procedure was well tolerated. US/Paracentesis with US IMPRESSION: Ultrasound guided paracentesis. Electronically Signed: Rigo Britt MD at 12:07 EST , Service support ,
[2020-07-18 10:50] VITALS: BP 106/43; BP 85/41; BP 87/43; PULSE 87; PULSE 92; PULSE 94; RESP 14; RESP 16; TEMP 36.7; O2SAT 100
[2020-07-18] MEDS: Albumin Human 25% (50 mL) 12.5 GM/50 ML IV.SOLN IV (12:07)
[2020-07-18 12:09] VITALS: BP 77/40; PULSE 91; RESP 16; TEMP 36.3; O2SAT 100; BMI 33.0
[2020-07-18 12:57] VITALS: BP 70/42; PULSE 91; RESP 16; TEMP 36.3
== END ==
LOC: US 10:19 → MEDOUTP 12:26
PROVIDERS: PCP Family Medicine; Referring Provider Internal Medicine Gastroenterology; Visit Provider Internal Medicine Gastroenterology
DX: K74.60 Unspecified cirrhosis of liver (principal)
CPT/HCPCS: 96365; 49083; P9047; A4216

== ENCOUNTER 2020-07-19 13:25 | Observation (INO) | payer MEDICARE, SELFPAY ==
[2020-07-18 12:09] VITALS: BMI 33.0
[2020-07-19] VITALS (15 sets, daily range): BP systolic 65–93; BP diastolic 34–63; PULSE 89–103; RESP 16–22; TEMP 35.8–36.8; O2SAT 95–100; BMI 32.8; BMI 31.6
--- NOTE | 2020-07-19 13:57 | RAD_ITS ---
STUDY: X-RAY CHEST REASON FOR EXAM: Female, 74 years old. Confusion TECHNIQUE: Single AP portable view of the chest. COMPARISON: Comparison is made with prior study dated 02/06/2020. FINDINGS: A left-sided dialysis catheter is seen with the tip in the proximal portion of the superior vena cava. A right-sided portacatheter is seen with the tip in the right atrium. EKG electrodes are seen. Surgical clips are seen in the right axilla. The lungs are clear and expanded. There is no demonstrated pleural abnormality. Normal size heart. Normal mediastinum and owen. Normal visualized pulmonary arteries. Normal visualized aortic arch and descending thoracic aorta. Normal visualized thoracic spine. Normal visualized ribs, clavicles, and shoulders. Moderate degree of hiatal hernia. RAD/Chest 1 View (Portable) IMPRESSION: No acute abnormality is seen. Electronically Signed: Rigo Britt MD at 15:12 EST , Service support ,
--- NOTE | 2020-07-19 13:57 | EKG12_ITS ---
Test Reason : GEN ILLNESS Blood Pressure : / mmHG Vent. Rate : 096 BPM Atrial Rate : 096 BPM P-R Int : 134 ms QRS Dur : 074 ms QT Int : 386 ms P-R-T Axes : 037 002 011 degrees QTc Int : 487 ms Sinus rhythm with Premature atrial complexes with Aberrant conduction Nonspecific ST and T wave abnormality Abnormal ECG Confirmed by ASUNCION SHAW, ARCHANA ([id number]), sports editor JOSE JONES ([id number]) on 07/22/2020 12:16:39 PM Referred By: CHRISTI Confirmed By:FABIEN ROLAND MD
--- NOTE | 2020-07-19 14:33 | ED.VIS.GEN ---
History of Present Illness Chief Complaint: General Illness Informant: Patient Narrative: Patient is a 74-year-old female with a past medical history of end-stage renal disease on dialysis, Forrester cirrhosis who presents to the emergency department for an episode difficulty finding words. She was at dialysis when this occurred, this occurred around 12:15 PM. She is never had this before. She states she has had a difficult time getting her sentences out. She is not sure how long this episode lasted for but did completely resolve on time of arrival to the emergency department. She did not have a headache during this episode. She did not have any vision changes. No weakness or loss of sensation in any of her extremities. She denies any history of strokes in the past. She denies having any chest pain, shortness of breath or heart palpitations. No nausea or vomiting. She denies any recent illness. She did have a paracentesis performed yesterday and they took off 7 L. She states that she does get this done every . Her dialysis schedule is Wednesday and Wednesday. She is not sure how much they took off today. She states that her blood pressure does normally run low in the 80s to 90s systolic. She is not on any blood thinning medications. Past Medical History - Allergies and Home Meds Allergies/Adverse Reactions: Allergies clarithromycin [From Biaxin] Allergy (Verified 06/03/20 07:58) Unknown iodine Allergy (Verified 06/03/20 07:58) Unknown melatonin Adverse Reaction (Intermediate, Verified 07/10/20 13:43) OTHER CAUSES BAD DREAMS Primary Care Physician: Nicola Bay MD [Primary Care Provider] - Prior records reviewed: Yes Surgical History: mastectomy, - - Patient has had a right mastectomy and appendectomy. She is a Ab0. Right IJ Port-A-Cath Smoking Status: Never smoker - Family History Sibling Family History: Family History (Last Reviewed 05/07/20 @ 10:[address] Prem Barnes MD) Father CHF (congestive heart failure) Heart disease Mother CVA (cerebral vascular accident) Family History: Reports: Cancer Review of Systems All systems negative except as indicated General: Denies: Chills, Fever, Sweats Eyes: Denies: Visual changes - bilaterally, Diplopia ENT: Denies: Rhinorrhea, Sore throat Cardiovascular: Denies: Chest pain, Palpitations Respiratory: Denies: Dyspnea, Cough, Dyspnea on exertion Gastrointestinal: Denies: Abdominal pain, Nausea, Vomiting, Diarrhea, Melena, Hematochezia Genitourinary: Denies: Dysuria, Hematuria, Frequency Musculoskeletal: Denies: Back pain, Extremity Pain Skin: Denies: Rash, Wounds Neurological: Reports: - - Difficulty finding words. Denies: Headache, Weakness, Numbness Physical Exam Vital Signs/Narrative: Vital Signs Temp Pulse Resp BP Pulse Ox 07/19/20 13:38 97 18 81/51 L 100 07/19/20 13:33 98.1 F 98 18 75/53 L 100 07/19/20 13:27 98.1 F 101 H 18 75/53 L 100 Inital Vital Signs reviewed: Yes General: Well nourished, Well developed, No Acute Distress Head: Normocephalic, Atraumatic Eyes: Perrl, EOMI ENT: Moist mucous membranes, No rhinorrhea Neck: Supple, Nontender Cardiovascular: Regular rate, Regular rhythm, Murmur Respiratory: No distress, CTA bilaterally, Chest nontender Abdomen: Soft, Nontender, Nondistended, Normal bowel sounds Back: Nontender, Normal Inspection Extremities: Nontender, No edema Skin: Normal color, No rash Neurological: Alert, Oriented x3, Cranial nerves II-XII grossly intact, Normal Strength, Normal Sensation, - - NIH score of 0. No aphasia or dysarthria.. Negative for: Left side facial droop, Right side facial droop Psychological: Normal affect, Normal Mood Diagnostic/Tx/Re-eval Chest X-Ray - ED: - - Single view portable x-ray interpreted by myself. Clear lung bahena bilaterally. No pleural effusions. Normal cardiac silhouette. Normal mediastinum. Dialysis catheter in place along with PowerPort. Agree with radiologist interpretation. - EKG Initial EKG Interpretation: - - Rate of 96 bpm and normal sinus rhythm. Normal intervals. Normal axis. No significant ST elevations or depressions. No T wave abnormalities. - Medical Decision Making Patient presents to the emergency department for an episode where she could not find words. This was during dialysis. Upon arrival to the emergency department she is hypotensive but states she normally has low blood pressure. She is currently asymptomatic with this. She is not a TPA candidate given she has no strokelike symptoms at this time. NIH score has remained 0 throughout ED stay. Question whether this was just due to a hypotensive episode as she had 7 L taken off by paracentesis yesterday and then was running dialysis during the episode. She is completely asymptomatic at this time. Will check CT scans of the head and neck to evaluate for evidence of a stroke. Patient's lab work shows her hemoglobin to be low at 6.2. She tells me that she has had multiple transfusions before in the past. She is chronically anemic but this does appear to be on the lower side for her. We will type and crossmatch and transfuse [address] her previous CT scan she appears to have old chronic infarcts. Patient was not aware of any previous strokes. Fact this could potentially have been a TIA will bring her into the hospital for further evaluation and management. I did want to get a CT angio of the neck but in her medical history she has a iodine contrast allergy. She does not remember her reaction to this. I discussed the difference between hives and anaphylaxis and different adverse reactions but she could not remember. I did offer to pretreat with steroids and Benadryl but patient is adamant on not getting the contrast. Will bring in for MRI and further evaluation. She is agreeable with this plan. ED Disposition - Plan for ED Patient: Disposition: [facility] Diagnosis: Difficulty with speech, Acute on chronic anemia, Hypotension (arterial), Pancytopenia Referrals: Nicola Bay MD [Primary Care Provider] -
[2020-07-19 14:57] LABS: Absolute Lymphocyte Count 0.45 X10^3/uL (0.83-4.51); Absolute Neutrophil Count 1.5 X10^3/uL (2.0-7.7); Basophil# 0.01 X10^3/uL; Basophil% 0.4 % (0-1); Eosinophil# 0.05 X10^3/uL; Eosinophils% 2.2 % (0-5); Hematocrit 20.4 % (37-47); Hemoglobin 6.2 g/dL (12.0-15.0); Lymphocyte # 0.45 X10^3/ul (4.0); Lymphocyte % 19.7 % (19-41); Mean Corp Hgb Conc 30.4 g/dL (32-36); Mean Corpuscular Hgb 31.8 pg (27.0-32.0); Mean Corpuscular Volume 104.6 fL (81-99); Mean Platelet Vol. 9.9 fl (6.2-12.0); Monocyte% 13.2 % (0-10); NRBC Flagged by Analyzer 0 % (0-5); Neutrophil # 1.46 X10^3/uL (2.7-7.7); Neutrophil % 64.1 % (47-70); POSITIVE COUNT YES; POSITIVE DIFFERENTIAL YES; POSITIVE MORPHOLOGY YES; Platelet Count 61 K/mm3 (150-450); RBC Distribution Width CV 17.9 % (11.6-14.6); RBC Distribution Width SD 67.7 fl (35.1-43.9); Red Blood Count 1.95 M/mm3 (4.2-5.4); White Blood Count 2.3 K/mm3 (4.4-11.0)
[2020-07-19 15:11] LABS: Anion Gap 5 (5-15); BUN 23 mg/dL (7-18); BUN/Creat Ratio 8.2 RATIO (10-20); Chloride 104 mmol/L (98-107); Creatinine, Serum 2.82 mg/dL (0.55-1.02); EST Glomerular Filtration Rate 17 mL/min (>60); Est Glom Filt Rate - Afr Amer 21 mL/min (>60); Estimated Creatinine Clearance 14.05 ml/min; Glucose 214 mg/dL (74-106); Potassium 3.6 mmol/L (3.5-5.1); Sodium Level 138 mmol/L (136-145)
[2020-07-19 15:34] LABS: Differential Indicated SCAN CRITERIA MET
[2020-07-19 16:11] LABS: Anisocytosis 1+; Platelet Estimate MKD DEC (ADEQ); Red Cell Morphology N CHROM NORMAL (NORM C&C)
--- NOTE | 2020-07-19 16:32 | CT_ITS ---
HISTORY: POSSIBLE TIA. HX OF HTN AND RIGHT SIDED BREAST CA COMPARISON: None. TECHNIQUE: Helical CT axial images are obtained from the base of skull through the vertex without IV contrast. Multiplanar reconstruction. A radiation dose optimization technique was used for this scan. # of images incl. paperwork: [id number] FINDINGS: BRAIN: Small old right cerebellar infarct. No parenchymal hemorrhage,acute infarct, intra-axial mass, mass effect, or midline shift. No abnormal extra-axial fluid collections. Mild periventricular white matter hypodensities. VENTRICLES: Ventricles are normal in size and configuration. No hydrocephalus. CALVARIUM: Bone windows show no skull fracture or calvarial lesions. PARANASAL SINUSES AND MASTOIDS: Clear paranasal sinuses. Mastoid air cells are clear. CT/Brain/Head without Contrast IMPRESSION: 1. No acute intracranial disease. 2. Small old right cerebellar infarct. 3. Mild chronic small vessel ischemic white matter changes. Individualized dose optimization techniques were used for this CT. at 1720 Reported and signed by: Chirag Key MD Electronically Signed: Chirag Key MD at 17:19 EST Tel , Service support ,
--- NOTE | 2020-07-19 18:03 | PCM.HP.STD ---
<Brianda Soriano DIRECTOR OF RESOURCE DEVELOPMENT - Last Filed: 07/19/20 18:36> Problem List (1) Hypercalcemia Status: Inactive (2) Pancytopenia Status: Chronic (3) Non-pressure chronic ulcer of other part of right lower leg with fat layer exposed Status: Inactive (4) Non-pressure chronic ulcer of other part of left lower leg with fat layer exposed Status: Inactive (5) Dependent edema Status: Chronic (6) Encounter for adjustment or management of vascular access device Status: Inactive (7) Hyperkalemia Status: Inactive (8) Chronic kidney disease Status: Chronic (9) Hypothyroidism Status: Chronic (10) Anemia Status: Chronic (11) Vascular catheter fitting or adjustment Status: Inactive (12) 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 Status: Chronic (13) Intra-abdominal hematoma Status: Chronic (14) Difficulty with speech Status: Acute (15) Acute on chronic anemia Status: Resolved (16) Hypotension (arterial) Status: Acute (17) Diabetes Status: Chronic Qualifiers: Diabetes mellitus type: type 2 Diabetes mellitus care home insulin use: with care home use Diabetes mellitus complication status: with hyperglycemia Qualified Code(s): E11.65 - Type 2 diabetes mellitus with hyperglycemia; Z79.4 - [facility] (current) use of insulin (18) 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 The patient is a 74 year old F who presents to the emergency room due to difficulty finding words which occurred during dialysis this afternoon. This has since resolved. She denies other neuro symptoms or focal deficits. Per records, she has a history of TIA. She has a past medical history of chronic kidney disease stage IV on hemodialysis, pancytopenia/chronic anemia, Forrester with weekly paracentesis, severe hypothyroidism, osteoporosis, type 2 diabetes mellitus, hypertension, history of breast cancer. Past Medical History Past Medical History (Chronic Problems): Chronic Problems (Last Reviewed 05/07/20 @ 10:[address] 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 Prem Barnes MD) Venous insufficiency (chronic) (peripheral) (Chronic) I87.2 History of breast cancer (Chronic) Z85.3 Ascites (Chronic) R18.8 CKD (chronic kidney disease) stage 4, GFR 15-29 ml/min (Chronic) N18.4 TIA (transient ischemic attack) (Chronic) DM2 (diabetes mellitus, type 2) (Chronic) E11.9 Benign essential HTN (Chronic) I10 Hypothyroid E03.9 Hypothyroid E03.9 Allergies clarithromycin [From Biaxin] Allergy (Verified 06/03/20 07:58) Unknown iodine Allergy (Verified 06/03/20 07:58) Unknown melatonin Adverse Reaction (Intermediate, Verified 07/10/20 13:43) OTHER CAUSES BAD DREAMS Home Medications: Ambulatory Orders Medication Instructions Recorded Furosemide [Lasix] 40 mg PO BID 01/22/18 Pantoprazole Sodium [Protonix] 40 mg PO BID 02/01/20 Midodrine HCl 10 mg PO MOWEFR 04/05/20 Calcitriol 0.5 mcg PO MOWEFR 04/12/20 insulin aspar prot-insulin aspart 26 unit SC .COMPLEX #15 ml 05/07/20 100 unit/mL (70-30) subcutaneous pen insulin glargine 100 unit/mL (3 26 unit SC .COMPLEX #15 ml 05/07/20 mL) subcutaneous pen Levothyroxine [Synthroid] 100 mcg PO DAILY 06/03/20 Surgical History: Surgical History (Last Reviewed 05/07/20 @ 10:[address] Prem Barnes MD) History of appendectomy Z90.49 History of cataract extraction Z98.49 History of colonoscopy Z98.890 History of extraction of renal calculus Z98.890, Z87.442 History of right mastectomy Z90.11 history port insertion Surgical History: mastectomy, - - Patient has had a right mastectomy and appendectomy. She is a Ab0. 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 Lives: Alone Smoking Status: Never smoker Alcohol: None Drugs: None - *Family History Sibling Family History: Family History (Last Reviewed 07/19/20 @ 18:09 by Brianda Soriano NP, DIRECTOR OF RESOURCE DEVELOPMENT-C) Father CHF (congestive heart failure) Heart disease Mother CVA (cerebral vascular accident) History Items: Cancer Maternal Family History: Family History (Last Reviewed 07/19/20 @ 18:09 by Brianda Soriano NP, DIRECTOR OF RESOURCE DEVELOPMENT-C) Father CHF (congestive heart failure) Heart disease Mother CVA (cerebral vascular accident) Paternal Family History: Family History (Last Reviewed 07/19/20 @ 18:09 by Brianda Soriano NP, DIRECTOR OF RESOURCE DEVELOPMENT-C) Father CHF (congestive heart failure) Heart disease Mother CVA (cerebral vascular accident) Review of Systems Constitutional: Denies: Chills, Fever, Weight Change HEENT: Denies: Head Aches, Sinus Congestion, Sinus Drainage Cardiovascular: Denies: Chest Pain, Palpitations Respiratory: Denies: Cough, Shortness of breath at rest, Sputum production Gastrointestinal: Denies: Abdominal Pain, Nausea, Vomiting Genitourinary: Denies: Dysuria Musculoskeletal: Denies: Joint Pain, Joint Tenderness Skin: Denies: Rash, Wounds Neurological: Reports: - - Difficulty finding words. Denies: Focal weakness, Numbness, Tingling Psychiatric: Denies: Anxiety, Depression, Homicidal Ideations, Suicidal Ideations Hematologic/ Lymphatic: Denies: Easy Bruising, Easy Bleeding VTE Information - Inpt Only VTE Present on Admission: No VTE Mechan Device Prophylaxis: None VTE Pharm Prophylaxis ordered?: No Reason prophylaxis not ordered:: Medical Contraindication Patient Problems: Active and Suspected Problems (Last Reviewed 05/07/20 @ 10:[address] Prem Barnes MD) Difficulty with speech (Acute) Hypotension (arterial) (Acute) - Physical Exam Vitals/I&O's: Vital Signs Temp Pulse Resp BP Pulse Ox 98.1 F 103 H 21 H 93/63 100 07/19/20 13:33 07/19/20 16:30 07/19/20 16:30 07/19/20 16:30 07/19/20 16:30 Oxygen Delivery Method Room Air Weight: 179 lb 3.773 oz Body Mass Index (BMI) 32.8 Finger Stick Blood Glucose 406 General: Alert, Oriented x3, Cooperative HEENT: Atraumatic, PERRLA, EOMI, Normocephalic Neck: Supple, No JVD, Negative Carotid Bruits Lungs: Clear to auscultation, Normal air movement Cardiovascular: Regular rate, No murmurs Abdomen: Bowel Sounds Present, Soft, Non Tender Extremities: No clubbing, No cyanosis, No edema, Capillary Refill Less than 3 Seconds Skin: No rashes, No breakdown Musculoskeletal: No Tenderness to Palpation of Joints or Extremities Neurological: Cranial nerves II-XII grossly intact, Neuro grossly intact Psych/Mental Status: Normal Affect, Appropriate Laboratory Results 07/19/20 14:45: WBC 2.3 L, RBC 1.95 L, Hgb 6.2 L, Hct 20.4 L, MCV 104.6 H, MCH 31.8, MCHC 30.4 L, RDW Std Deviation 67.7 H, RDW Coeff of [place] 17.9 H, Plt Count 61 L, MPV 9.9, Immature Gran % (Auto) 0.400, Neut % (Auto) 64.1, Lymph % (Auto) 19.7, [place] % (Auto) 13.2 H, Eos % (Auto) 2.2, Baso % (Auto) 0.4, Absolute Neuts (auto) 1.5 L, Absolute Lymphs (auto) 0.45 L, Nucleated RBC % 0, Differential Comment , Diff Path Review May foll, Platelet Estimate MKD DEC, RBC Morphology N CHROM, Anisocytosis 1+ 07/19/20 14:45: Sodium 138, Potassium 3.6, Chloride 104, Carbon Dioxide 29.0, Anion Gap 5, BUN 23 H, Creatinine 2.82 H, Estim Creat Clear Calc 14.05, Est GFR (MDRD) Af Amer 21 L, Est GFR (MDRD) Non-Af 17 L, BUN/Creatinine Ratio 8.2 L, Glucose 214 H, Calcium 8.0 L, Troponin I 0.028 Assessment/Plan All Active Problems (Last Reviewed 05/07/20 @ 10:[address] Prem Barnes MD) Difficulty with speech (Acute) Hypotension (arterial) (Acute) Acute on chronic anemia (Resolved) 1. Speech difficulty, rule out TIA/CVA-brain CT shows small old right cerebellar infarct. No acute ischemic process. Obtain MRI of brain. MRA of head and neck. Aspirin contraindicated due to pancytopenia and chronic anemia/history of GI bleed. High-dose statin. PT/OT/ST. Consider neurology consult if imaging abnormal. 2. Acute on chronic anemia/pancytopenia-1 unit PRBC ordered in ER. Patient has a history of GI bleed/gastric antral vascular ectasia, argon plasma coagulation therapy. Trend CBC. Continue PPI. Avoid antiplatelets, heparin products. 3. Chronic kidney disease stage IV- follows with Dr. Max. Consult nephrology. On hemodialysis. 4. FORRESTER- undergoes weekly paracentesis. Follows with Dr. Allen. 5. Severe hypothyroidism-continue synthroid regimen. Following with endocrinology as outpatient. Repeat TSH. 6. Osteoporosis-on Fosamax. 7. Type 2 diabetes [id number] with sliding scale insulin. Continue home insulin regimen. 8. Hypertension-no longer on regimen. 9. History of breast cancer-in remission. DVT prophylaxis-SCDs, pharmacologic prophylaxis contraindicated This patient was seen by CHRISTAL Wei under the supervision of Dr. Corbin. <Jose Corbin F - Last Filed: 07/19/20 20:15> History of Present Illness The patient is a 74 year old F [] Past Medical History Medical History: Medical History (Last Reviewed 05/07/20 @ 10:[address] Prem Barnes MD) Venous insufficiency (chronic) (peripheral) (Chronic) I87.2 History of breast cancer (Chronic) Z85.3 Ascites (Chronic) R18.8 CKD (chronic kidney disease) stage 4, GFR 15-29 ml/min (Chronic) N18.4 TIA (transient ischemic attack) (Chronic) DM2 (diabetes mellitus, type 2) (Chronic) E11.9 Benign essential HTN (Chronic) I10 Hypothyroid E03.9 Hypothyroid E03.9 Allergies clarithromycin [From Biaxin] Allergy (Verified 06/03/20 07:58) Unknown iodine Allergy (Verified 06/03/20 07:58) Unknown melatonin Adverse Reaction (Intermediate, Verified 07/10/20 13:43) OTHER CAUSES BAD DREAMS Surgical History: Surgical History (Last Reviewed 05/07/20 @ 10:[address] Prem aBrnes MD) History of appendectomy Z90.49 History of cataract extraction Z98.49 History of colonoscopy Z98.890 History of extraction of renal calculus Z98.890, Z87.442 History of right mastectomy Z90.11 history port insertion - *Family History Sibling Family History: Family History (Last Reviewed 07/19/20 @ 18:09 by Brianda Soriano NP, DIRECTOR OF RESOURCE DEVELOPMENT-C) Father CHF (congestive heart failure) Heart disease Mother CVA (cerebral vascular accident) Maternal Family History: Family History (Last Reviewed 07/19/20 @ 18:09 by Brianda Soriano NP, DIRECTOR OF RESOURCE DEVELOPMENT-C) Father CHF (congestive heart failure) Heart disease Mother CVA (cerebral vascular accident) Paternal Family History: Family History (Last Reviewed 07/19/20 @ 18:09 by Brianda Soriano NP, DIRECTOR OF RESOURCE DEVELOPMENT-C) Father CHF (congestive heart failure) Heart disease Mother CVA (cerebral vascular accident) - Physical Exam Vitals/I&O's: Vital Signs Temp Pulse Resp BP Pulse Ox 98.1 F 89 18 69/50 L 99 07/19/20 13:33 07/19/20 19:00 07/19/20 19:00 07/19/20 19:00 07/19/20 19:00 Oxygen Delivery Method Room Air Weight: 179 lb 3.773 oz Body Mass Index (BMI) 32.8 Finger Stick Blood Glucose 406 Laboratory Results 07/19/20 14:45: WBC 2.3 L, RBC 1.95 L, Hgb 6.2 L, Hct 20.4 L, MCV 104.6 H, MCH 31.8, MCHC 30.4 L, RDW Std Deviation 67.7 H, RDW Coeff of [place] 17.9 H, Plt Count 61 L, MPV 9.9, Immature Gran % (Auto) 0.400, Neut % (Auto) 64.1, Lymph % (Auto) 19.7, [place] % (Auto) 13.2 H, Eos % (Auto) 2.2, Baso % (Auto) 0.4, Absolute Neuts (auto) 1.5 L, Absolute Lymphs (auto) 0.45 L, Nucleated RBC % 0, Differential Comment , Diff Path Review May foll, Platelet Estimate MKD DEC, RBC Morphology N CHROM, Anisocytosis 1+ 07/19/20 14:45: Sodium 138, Potassium 3.6, Chloride 104, Carbon Dioxide 29.0, Anion Gap 5, BUN 23 H, Creatinine 2.82 H, Estim Creat Clear Calc 14.05, Est GFR (MDRD) Af Amer 21 L, Est GFR (MDRD) Non-Af 17 L, BUN/Creatinine Ratio 8.2 L, Glucose 214 H, Calcium 8.0 L, Troponin I 0.028 07/19/20 18:29: Blood Type Pending, Antibody Screen Pending, Crossmatch See Detail Addendum: Dr. Corbin I personally examined the patient and reviewed the chart. I agree with the above. 74-year-old female with chronic pancytopenia and renal disease on dialysis presented from dialysis today with word finding difficulty. It has since resolved. However there was concern for possible TIA/stroke given her previous history of TIAs. She also has a history of Forrester requiring weekly paracenteses for her ascites. She is also having severe hypothyroidism. She is feeling fine now and denies any focal neurological findings at this time. We will plan for an MRI of her brain and MRA of her head and neck. From secondary stroke prevention there is not much to do because she has a significant history of GI bleeding hence her chronic anemia, therefore can only do a high-dose statin at this time. If imaging is abnormal can proceed with neurology consult. She did receive 1 unit packed red blood cells in the ER. OBSV E&M: [id number] Initial observation care L3
--- NOTE | 2020-07-19 23:09 | MRI_ITS ---
STUDY: MRI BRAIN WITHOUT CONTRAST REASON FOR EXAM: Female, 74 years old patient with recent TIA TECHNIQUE: Standardized multiplanar fat and water weighted pulse sequences were obtained. COMPARISON: None. FINDINGS: There is mild cerebral atrophy with widening of the extra-axial spaces and ventricular dilatation. There are a limited number of small white matter hyperintensities, distributed throughout the deep white matter tracts of the cerebral hemispheres, consistent with mild chronic white matter ischemic changes. There are small areas of restricted diffusion in the right cerebellum consistent with acute infarcts. Normal T2* images of the brain without demonstrated susceptibility artifact. There is no demonstrated hemosiderin stain. There are prominent perivascular spaces (PVS) involving the basal ganglia. There is a small focus of abnormal T2 hyperintensity with the left thalamus consistent with what may represent a small tiny old infarct. There is no extra-axial fluid accumulation. Normal flow voids within the major intracranial circulation suggesting patency by spin echo criteria. Normal sella turcica, pituitary gland, infundibular stalk, optic chiasm and hypothalamus. Normal tectal plate and pineal gland. Normal midbrain, jaden and medulla. There is mild atrophy of the cerebellum. There are large basal cisterns. Normal bilateral temporal bones. Normal bilateral internal auditory canals. There are bilateral ocular lens implants with otherwise normal intraorbital contents. There is mucoperiosteal inflammatory disease of the paranasal sinuses consistent with mild chronic sinusitis. Normal calvarium and skull base. Normal visualized soft tissue structures. There are degenerative changes of the anterior atlantoaxial articulation. MRI/Brain without Contrast IMPRESSION: 1. Involutional changes of the brain, as described above. 2. Acute small infarct of the RIGHT cerebellum. . Electronically Signed: Leora Fontaine MD at 11:25 EST , Service support ,
--- NOTE | 2020-07-19 23:09 | MRI_ITS ---
STUDY: MRA OF THE HEAD WITHOUT CONTRAST REASON FOR EXAM: Female, 74 years old patient with TIA TECHNIQUE: 3-D [id number] (TOF) imaging was performed with MIPs. The study was performed unenhanced. COMPARISON: Prior comparable comparison studies are not available for review at this time. FINDINGS: Normal bilateral petrous carotid arteries. Normal right cavernous carotid artery with a normal supraclinoid bifurcation. Normal left cavernous carotid artery with a normal supraclinoid bifurcation. Normal right A1 segments of the anterior cerebral artery. Normal left A1 segments of the anterior cerebral artery. Normal intact anterior communicating artery (ACOM). Normal bilateral A2 segments of the anterior cerebral arteries. Normal right M1 and M2 segments of the middle cerebral arteries, with a normal M1 bifurcation. Normal left M1 and M2 segments of the middle cerebral arteries, with a normal M1 bifurcation. Normal right posterior communicating artery (PCOM). Normal left posterior communicating artery (PCOM). Normal bilateral vertebral arteries. Normal basilar artery with a normal basilar bifurcation. The visualized bilateral superior cerebellar (SCA) arteries are normal. Normal bilateral P1, P2 and visualized P3 segments of the posterior cerebral arteries. There is no demonstrated aneurysm of the [place]. There is no major vessel occlusion or hemodynamically significant stenosis. There is no demonstrated abnormality of the visualized brain. MRI/MRA Head ONLY without Contrast IMPRESSION: No MRA evidence for hemodynamically significant stenosis, acute thrombosis or aneurysm Electronically Signed: Leora Fontaine MD at 11:13 EST , Service support ,
--- NOTE | 2020-07-19 23:09 | MRI_ITS ---
STUDY: MRA NECK WITHOUT CONTRAST REASON FOR EXAM: Female, 74 years old. TIA TECHNIQUE: Source images were obtained, MIPs were performed. The study was performed unenhanced. Several images are limited by patient motion. COMPARISON: Prior comparable comparison studies are not available for review at this time. FINDINGS: RIGHT CAROTID ARTERIES: 3 There is mild atherosclerotic plaque formation with minimal narrowing of the right carotid bulb. Normal origin of the right internal carotid (ICA) artery without a hemodynamically significant stenosis. Normal visualized cervical portion of the right internal carotid artery. Normal origin of the right external carotid artery (ECA). LEFT CAROTID ARTERIES: Normal left common carotid artery (CCA). There is mild atherosclerotic plaque formation with minimal narrowing of the left carotid bulb. Normal origin of the left internal carotid (ICA) artery without a hemodynamically significant stenosis. Normal visualized cervical portion of the left internal carotid artery. Normal origin of the left external carotid artery (ECA). VERTEBRAL ARTERIES: Normal antegrade flow within the bilateral vertebral artery without a hemodynamically significant stenosis. MRI/MRA Neck without Contrast IMPRESSION: Technically limited MRA due to patient motion without obvious hemodynamically significant stenosis or thrombosis. Electronically Signed: Leora Fontaine MD at 11:28 EST , Service support ,
[2020-07-19] MEDS: Atorvastatin Calcium 80 MG Tablet PO (23:55)
[2020-07-19] MEDS: Pantoprazole Sodium 40 MG Tablet PO (23:55)
[2020-07-19] MEDS: Furosemide 40 MG Tablet PO (23:55)
[2020-07-19] MEDS: Insulin Lispro 100 UNIT/ML INSULN.PEN SC (23:55)
[2020-07-20] VITALS (16 sets, daily range): BP systolic 84–124; BP diastolic 41–57; PULSE 95–113; RESP 15–18; TEMP 36.7–37.1; O2SAT 96–99
[2020-07-20 00:41] LABS: Bedside Glucose 217 mg/dL (70-110)
--- NOTE | 2020-07-20 04:49 | PCS.PANDOC ---
PANDEMIC DOCUMENTATION INITIATED: Date: 07/20/20 Time: 2300
[2020-07-20] MEDS: Levothyroxine 100 MCG Tablet PO (06:41)
[2020-07-20] MEDS: 0.9% Saline Lock 10 ML Syringe IV ×3 (06:42→19:08)
[2020-07-20] MEDS: Insulin Lispro 100 UNIT/ML INSULN.PEN SC ×4 (06:47→22:17)
[2020-07-20 06:55] LABS: Bedside Glucose 169 mg/dL (70-110)
[2020-07-20 07:03] LABS: Absolute Lymphocyte Count 0.45 X10^3/uL (0.83-4.51); Absolute Neutrophil Count 2.8 X10^3/uL (2.0-7.7); Basophil# 0.02 X10^3/uL; Basophil% 0.5 % (0-1); Eosinophil# 0.11 X10^3/uL; Hematocrit 23.4 % (37-47); Hemoglobin 7.4 g/dL (12.0-15.0); Lymphocyte # 0.45 X10^3/ul (4.0); Lymphocyte % 12.4 % (19-41); Mean Corp Hgb Conc 31.6 g/dL (32-36); Mean Corpuscular Hgb 32.5 pg (27.0-32.0); Mean Corpuscular Volume 102.6 fL (81-99); Mean Platelet Vol. 10.7 fl (6.2-12.0); Monocyte# 0.29 X10^3/uL; NRBC Flagged by Analyzer 0 % (0-5); Neutrophil # 2.75 X10^3/uL (2.7-7.7); Neutrophil % 75.6 % (47-70); POSITIVE COUNT YES; POSITIVE DIFFERENTIAL YES; POSITIVE MORPHOLOGY YES; Platelet Count 64 K/mm3 (150-450); RBC Distribution Width SD 72.8 fl (35.1-43.9); Red Blood Count 2.28 M/mm3 (4.2-5.4); White Blood Count 3.6 K/mm3 (4.4-11.0)
[2020-07-20 07:31] LABS: Differential Comment SCANNED; Differential Indicated SCAN CRITERIA MET; Hypochromasia 2+; Macrocytosis 2+; Ovalocyte 1+; Polychromasia RARE
[2020-07-20 07:41] LABS: Anion Gap 7 (5-15); BUN 32 mg/dL (7-18); Calcium,Total 8.6 mg/dL (8.5-10.1); Chloride 103 mmol/L (98-107); Cholesterol 98 mg/dL (200); Creatinine, Serum 3.54 mg/dL (0.55-1.02); EST Glomerular Filtration Rate 13 mL/min (>60); Est Glom Filt Rate - Afr Amer 16 mL/min (>60); Estimated Creatinine Clearance 11.19 ml/min; Glucose 173 mg/dL (74-106); High Density Lipoprotein 18 mg/dL; Potassium 4.4 mmol/L (3.5-5.1); Sodium Level 137 mmol/L (136-145); Triglycerides 93 mg/dL; Very Low Density Lipoprotein 19 mg/dL (5-40)
[2020-07-20] MEDS: Pantoprazole Sodium 40 MG Tablet PO ×2 (08:38→20:21)
[2020-07-20 11:21] LABS: Bedside Glucose 247 mg/dL (70-110)
[2020-07-20] MEDS: SEVELAMER CARBONATE 800 MG TABLET PO ×2 (11:22→16:28)
--- NOTE | 2020-07-20 11:41 | TELEMED_ITS ---
[facility] has confirmed receipt of a request for visit. This document confirms receipt of the order initiating the consult. To find the results of the consultation, please view the patient's reports for the scanned Telemed Consult.
--- NOTE | 2020-07-20 11:49 | PCM.PROGNOTE ---
<Brianda Soriano CORRECTIONS COUNSELOR - Last Filed: 07/20/20 12:21> Patient Problems: Active and Suspected Problems (Last Reviewed 05/07/20 @ 10:[address] Prem Barnes MD) Difficulty with speech (Acute) Hypotension (arterial) (Acute) Subjective: Patient seen and examined. Denies further speech difficulties. Denies other neurologic symptoms or focal deficits. Discussed MRI findings with patient which demonstrated acute small right cerebellar infarct. Awaiting neurology consult. - Physical Exam Vitals/I&O's: Vital Signs Temp Pulse Resp BP Pulse Ox 98.2 F 97 18 85/41 L 99 07/20/20 10:30 07/20/20 10:30 07/20/20 10:30 07/20/20 10:30 07/20/20 10:30 Oxygen Delivery Method Room Air Weight: 172 lb 13.478 oz Body Mass Index (BMI) 31.6 Finger Stick Blood Glucose 406 Intake and Output for Last 24 Hours 07/18/20 07/19/20 07/20/20 23:59 23:59 23:59 Intake Total 400 / 400 280 / 280 Output Total 0 / 0 Balance 400 / 400 280 / 280 General: Alert, Oriented x3, Cooperative HEENT: Atraumatic, PERRLA, EOMI, Normocephalic Neck: Supple, No JVD, Negative Carotid Bruits Lungs: Clear to auscultation, Normal air movement Cardiovascular: Regular rate, No murmurs Abdomen: Bowel Sounds Present, Soft, Non Tender Extremities: No clubbing, No cyanosis, No edema, Capillary Refill Less than 3 Seconds Skin: No rashes, No breakdown Musculoskeletal: No Tenderness to Palpation of Joints or Extremities Neurological: Cranial nerves II-XII grossly intact, Neuro grossly intact Psych/Mental Status: Normal Affect, Appropriate Laboratory Results 07/19/20 00:00: Troponin I 0.028 07/19/20 14:45: WBC 2.3 L, RBC 1.95 L, Hgb 6.2 L, Hct 20.4 L, MCV 104.6 H, MCH 31.8, MCHC 30.4 L, RDW Std Deviation 67.7 H, RDW Coeff of Mary Alice 17.9 H, Plt Count 61 L, MPV 9.9, Immature Gran % (Auto) 0.400, Neut % (Auto) 64.1, Lymph % (Auto) 19.7, [place] % (Auto) 13.2 H, Eos % (Auto) 2.2, Baso % (Auto) 0.4, Absolute Neuts (auto) 1.5 L, Absolute Lymphs (auto) 0.45 L, Nucleated RBC % 0, Differential Comment , Diff Path Review May foll, Platelet Estimate MKD DEC, RBC Morphology N CHROM, Anisocytosis 1+ 07/19/20 14:45: Sodium 138, Potassium 3.6, Chloride 104, Carbon Dioxide 29.0, Anion Gap 5, BUN 23 H, Creatinine 2.82 H, Estim Creat Clear Calc 14.05, Est GFR (MDRD) Af Amer 21 L, Est GFR (MDRD) Non-Af 17 L, BUN/Creatinine Ratio 8.2 L, Glucose 214 H, Calcium 8.0 L, Troponin I 0.028 07/19/20 18:29: Blood Type A NEGATIVE, Antibody Screen NEGATIVE, Crossmatch See Detail 07/19/20 23:52: POC Glucose 217 H 07/20/20 06:45: WBC 3.6 L, RBC 2.28 L, Hgb 7.4 L, Hct 23.4 L, MCV 102.6 H, MCH 32.5 H, MCHC 31.6 L, RDW Std Deviation 72.8 H, RDW Coeff of Mary Alice 20.0 H, Plt Count 64 L, MPV 10.7, Immature Gran % (Auto) 0.500, Neut % (Auto) 75.6 H, Lymph % (Auto) 12.4 L, [place] % (Auto) 8.0, Eos % (Auto) 3.0, Baso % (Auto) 0.5, Absolute Neuts (auto) 2.8, Absolute Lymphs (auto) 0.45 L, Nucleated RBC % 0, Differential Comment SCANNED, Diff Path Review May foll, Polychromasia RARE, Hypochromasia 2+, Macrocytosis 2+, Ovalocytes 1+ 07/20/20 06:45: Sodium 137, Potassium 4.4, Chloride 103, Carbon Dioxide 27.0, Anion Gap 7, BUN 32 H, Creatinine 3.54 H, Estim Creat Clear Calc 11.19, Est GFR (MDRD) Af Amer 16 L, Est GFR (MDRD) Non-Af 13 L, BUN/Creatinine Ratio 9.0 L, Glucose 173 H, Calcium 8.6, Triglycerides 93, Cholesterol 98, LDL Cholesterol 61, VLDL Cholesterol 19, HDL Cholesterol 18 L, TSH 21.60 H 07/20/20 06:46: POC Glucose 169 H 07/20/20 11:14: POC Glucose 247 H Current Medications Acetaminophen (Acetaminophen 325 Mg Tablet) 650 mg PO Q6H PRN PRN PRN Reason: Pain Score 1-10/Temp > 100.7 F Atorvastatin Calcium (Atorvastatin Calcium 40 Mg Tablet) 40 mg PO QHS [facility] Calcitriol (Calcitriol 0.25 Mcg Capsule) 0.5 mcg PO MOWEFR [facility] Heparin Sodium (Beef Lung) (Heparin Pf Lock 10 Units/Ml 50 Units/5 Ml Syringe) 50 units IV UD PRN PRN Reason: R Port Heparin Flush Heparin Sodium (Porcine) (Heparin 10,000 Units/10 Ml Vial) 2,500 units IV UD PRN PRN Reason: Dialysis Cath Heparin Flush Insulin Glargine (Insulin Glargine 100 Units/Ml Pen) 26 units SC .[facility] Insulin Human Lispro (Insulin Lispro 100 Unit/Ml Insuln.Pen) 0 unit SC [facility]; Protocol Last Admin: 07/20/20 11:15 Dose: 2 units Documented by: Levothyroxine Sodium (Levothyroxine 100 Mcg Tablet) 100 mcg PO DAILY@0600 [facility] Last Admin: 07/20/20 06:41 Dose: 100 mcg Documented by: Midodrine (Midodrine Hcl 5 Mg Tablet) 10 mg PO MOWEFR [facility] Ondansetron HCl (Ondansetron 4 Mg/2 Ml Vial) 4 mg IV Q8H PRN PRN PRN Reason: NAUSEA/VOMITING Pantoprazole Sodium (Pantoprazole Sodium 40 Mg Tablet) 40 mg PO BID [facility] Last Admin: 07/20/20 08:38 Dose: 40 mg Documented by: Sevelamer Carbonate (Sevelamer Carbonate 800 Mg Tablet) 800 mg PO TIDCM [facility] Last Admin: 07/20/20 11:22 Dose: 800 mg Documented by: Sodium Chloride (0.9% Saline Lock 10 Ml Syringe) 10 ml IV UD PRN PRN Reason: Dialysis Catheter Flush Last Admin: 07/20/20 06:42 Dose: 10 ml Documented by: Sodium Chloride (0.9% Saline Lock 10 Ml Syringe) 10 - 40 ml IV UD PRN PRN Reason: R Port Saline Flush Last Admin: 07/20/20 06:42 Dose: 30 ml Documented by: Sodium Chloride (0.9 % Nacl (Sterile) Posiflush 10 Ml) 10 - 40 ml IV UD PRN PRN Reason: Port access or dressing change Sodium Chloride (0.9% Saline Lock 10 Ml Syringe) 10 - 40 ml IV UD PRN PRN Reason: SALINE FLUSH Medical Necessity - Tobacco Use Smoking Status: Never smoker Assessment/Plan All Active Problems (Last Reviewed 05/07/20 @ 10:[address] Prem Barnes MD) Difficulty with speech (Acute) Hypotension (arterial) (Acute) Acute on chronic anemia (Resolved) 1. Acute small right cerebellar infarct-MRA of neck without significant stenosis. Aspirin contraindicated due to pancytopenia and chronic anemia/history of GI bleed. Continue high-dose statin. PT/OT/ST. SOC consult placed. 2. Acute on chronic anemia/pancytopenia-status post 1 unit PRBC. Patient has a history of GI bleed/gastric antral vascular ectasia, argon plasma coagulation therapy. Trend CBC. Continue PPI. This complicates #1 as patient should ideally be on antiplatelet along with statin. 3. Chronic kidney disease stage IV- follows with Dr. Max. Consult nephrology. On hemodialysis. 4. GUEVARA- undergoes weekly paracentesis. Follows with Dr. Allen. 5. Severe hypothyroidism-continue synthroid regimen. Following with endocrinology as outpatient. TSH 21. Given patient's TSH has fluctuated and difficult to manage, recommend outpatient adjustment by endocrinology. 6. Osteoporosis-on Fosamax. 7. Type 2 diabetes [id number] with sliding scale insulin. Continue home insulin regimen. 8. Hypertension-no longer on regimen. 9. History of breast cancer-in remission. DVT prophylaxis-SCDs, pharmacologic prophylaxis contraindicated This patient was seen by CHRISTAL Wei under the supervision of Dr. Euceda. <Kermit Euceda - Last Filed: 07/20/20 13:07> - Physical Exam Vitals/I&O's: Vital Signs Temp Pulse Resp BP Pulse Ox 98.2 F 97 18 85/41 L 99 07/20/20 10:30 07/20/20 10:30 07/20/20 10:30 07/20/20 10:30 07/20/20 10:30 Oxygen Delivery Method Room Air Weight: 78.4 kg Body Mass Index (BMI) 31.6 Finger Stick Blood Glucose 406 Intake and Output for Last 24 Hours 07/18/20 07/19/20 07/20/20 23:59 23:59 23:59 Intake Total 400 / 400 520 / 520 Output Total 0 / 0 Balance 400 / 400 520 / 520 Laboratory Results 07/19/20 00:00: Troponin I 0.028 07/19/20 14:45: WBC 2.3 L, RBC 1.95 L, Hgb 6.2 L, Hct 20.4 L, MCV 104.6 H, MCH 31.8, MCHC 30.4 L, RDW Std Deviation 67.7 H, RDW Coeff of Mary Alice 17.9 H, Plt Count 61 L, MPV 9.9, Immature Gran % (Auto) 0.400, Neut % (Auto) 64.1, Lymph % (Auto) 19.7, [place] % (Auto) 13.2 H, Eos % (Auto) 2.2, Baso % (Auto) 0.4, Absolute Neuts (auto) 1.5 L, Absolute Lymphs (auto) 0.45 L, Nucleated RBC % 0, Differential Comment , Diff Path Review May foll, Platelet Estimate MKD DEC, RBC Morphology N CHROM, Anisocytosis 1+ 07/19/20 14:45: Sodium 138, Potassium 3.6, Chloride 104, Carbon Dioxide 29.0, Anion Gap 5, BUN 23 H, Creatinine 2.82 H, Estim Creat Clear Calc 14.05, Est GFR (MDRD) Af Amer 21 L, Est GFR (MDRD) Non-Af 17 L, BUN/Creatinine Ratio 8.2 L, Glucose 214 H, Calcium 8.0 L, Troponin I 0.028 07/19/20 18:29: Blood Type A NEGATIVE, Antibody Screen NEGATIVE, Crossmatch See Detail 07/19/20 23:52: POC Glucose 217 H 07/20/20 06:45: WBC 3.6 L, RBC 2.28 L, Hgb 7.4 L, Hct 23.4 L, MCV 102.6 H, MCH 32.5 H, MCHC 31.6 L, RDW Std Deviation 72.8 H, RDW Coeff of Mary Alice 20.0 H, Plt Count 64 L, MPV 10.7, Immature Gran % (Auto) 0.500, Neut % (Auto) 75.6 H, Lymph % (Auto) 12.4 L, [place] % (Auto) 8.0, Eos % (Auto) 3.0, Baso % (Auto) 0.5, Absolute Neuts (auto) 2.8, Absolute Lymphs (auto) 0.45 L, Nucleated RBC % 0, Differential Comment SCANNED, Diff Path Review May foll, Polychromasia RARE, Hypochromasia 2+, Macrocytosis 2+, Ovalocytes 1+ 07/20/20 06:45: Sodium 137, Potassium 4.4, Chloride 103, Carbon Dioxide 27.0, Anion Gap 7, BUN 32 H, Creatinine 3.54 H, Estim Creat Clear Calc 11.19, Est GFR (MDRD) Af Amer 16 L, Est GFR (MDRD) Non-Af 13 L, BUN/Creatinine Ratio 9.0 L, Glucose 173 H, Calcium 8.6, Triglycerides 93, Cholesterol 98, LDL Cholesterol 61, VLDL Cholesterol 19, HDL Cholesterol 18 L, TSH 21.60 H 07/20/20 06:46: POC Glucose 169 H 07/20/20 11:14: POC Glucose 247 H Current Medications Acetaminophen (Acetaminophen 325 Mg Tablet) 650 mg PO Q6H PRN PRN PRN Reason: Pain Score 1-10/Temp > 100.7 F Atorvastatin Calcium (Atorvastatin Calcium 40 Mg Tablet) 40 mg PO QHS [facility] Calcitriol (Calcitriol 0.25 Mcg Capsule) 0.5 mcg PO MOWEFR [facility] Heparin Sodium (Beef Lung) (Heparin Pf Lock 10 Units/Ml 50 Units/5 Ml Syringe) 50 units IV UD PRN PRN Reason: R Port Heparin Flush Heparin Sodium (Porcine) (Heparin 10,000 Units/10 Ml Vial) 2,500 units IV UD PRN PRN Reason: Dialysis Cath Heparin Flush Insulin Glargine (Insulin Glargine 100 Units/Ml Pen) 26 units SC .[facility] Insulin Human Lispro (Insulin Lispro 100 Unit/Ml Insuln.Pen) 0 unit SC ACHS [facility]; Protocol Last Admin: 07/20/20 11:15 Dose: 2 units Documented by: Levothyroxine Sodium (Levothyroxine 100 Mcg Tablet) 100 mcg PO DAILY@0600 [facility] Last Admin: 07/20/20 06:41 Dose: 100 mcg Documented by: Midodrine (Midodrine Hcl 5 Mg Tablet) 10 mg PO MOWEFR [facility] Ondansetron HCl (Ondansetron 4 Mg/2 Ml Vial) 4 mg IV Q8H PRN PRN PRN Reason: NAUSEA/VOMITING Pantoprazole Sodium (Pantoprazole Sodium 40 Mg Tablet) 40 mg PO BID [facility] Last Admin: 07/20/20 08:38 Dose: 40 mg Documented by: Sevelamer Carbonate (Sevelamer Carbonate 800 Mg Tablet) 800 mg PO TIDCM [facility] Last Admin: 07/20/20 11:22 Dose: 800 mg Documented by: Sodium Chloride (0.9% Saline Lock 10 Ml Syringe) 10 ml IV UD PRN PRN Reason: Dialysis Catheter Flush Last Admin: 07/20/20 06:42 Dose: 10 ml Documented by: Sodium Chloride (0.9% Saline Lock 10 Ml Syringe) 10 - 40 ml IV UD PRN PRN Reason: R Port Saline Flush Last Admin: 07/20/20 06:42 Dose: 30 ml Documented by: Sodium Chloride (0.9 % Nacl (Sterile) Posiflush 10 Ml) 10 - 40 ml IV UD PRN PRN Reason: Port access or dressing change Sodium Chloride (0.9% Saline Lock 10 Ml Syringe) 10 - 40 ml IV UD PRN PRN Reason: SALINE FLUSH Assessment/Plan This patient was seen in conjunction with CHRISTAL Wei . I have independently interviewed and examined the patient and reviewed pertinent historical, laboratory, and other data. Please refer to CHRISTAL Wei note for details of this patient's presentation, findings, and recommendations. I have reviewed CHRISTAL Wei note and concur with documented findings. In brief, patient is 74-year-old lady who presented with speech difficulty MRI demonstrated Acute small infarct of the RIGHT cerebellum. Physical Examination: GENERAL: cooperative HEENT: Atraumatic; EYES; Anicteric, Normal Conjunctiva NECK; supple, normal thyroid, RESPIRATORY: Diminished to auscultation CARDIOVASCULAR: Regular S1 S2, GI: soft, normoactive bowel sounds, : No Renal angle tenderness; EXTREMITIES: No edema, no clubbing, MUSCULOSKELETAL: no muscle waisting NEURO: Awake; no lateralizing signs. SKIN: No Rash PSYCH; Flat affect Assessment: 1. Acute right cerebellar infarct 2. Anemia 3. Diabetes mellitus type 2 4. Chronic kidney disease stage IV 5. History of breast CA currently in remission 6. Hypothyroidism 7. Nonalcoholic fatty liver disease 8. Essential hypertension 9. Osteoporosis Recommendations: 1. I have discussed the results of my overview and impressions with the patient 2. Options for management were reviewed Advance planning; did discuss with the patient regarding advanced directives as well as CODE STATUS. Did explain the various scenarios involved ( FULL CODE, DNR CCA, DNR CCA with no intubation, and DNR CC and what each meant) patient elected to be DNR CCA no intubation. Order was placed. Time spent on discussion 18 minutes. Clinical Impression(s) from Imaging Studies Chest X-Ray 07/19/20 13:57 IMPRESSION: No acute abnormality is seen. Electronically Signed: Rigo Britt MD at 15:12 EST , Service support , Brain CT 07/19/20 16:32 IMPRESSION: 1. No acute intracranial disease. 2. Small old right cerebellar infarct. 3. Mild chronic small vessel ischemic white matter changes. Individualized dose optimization techniques were used for this CT. at 1720 Reported and signed by: Chirag Key MD Electronically Signed: Chirag Key MD at 17:19 EST Tel , Service support , Brain MRI 07/19/20 23:09 IMPRESSION: 1. Involutional changes of the brain, as described above. 2. Acute small infarct of the RIGHT cerebellum. . Electronically Signed: Leora Fontaine MD at 11:25 EST , Service support , ADDENDUM: 07/20/20 1154 IMPRESSION: 1. Involutional changes of the brain, as described above. 2. Acute small infarct of the RIGHT cerebellum. . N.B. : Kendra Ruth RN, confirmed on 07/20/2020 11:47:30 (ET) that the healthcare facility has received the radiology report. Electronically Signed: Leora Fontaine MD at 11:25 EST , Service support , Head MRA 07/19/20 23:09 IMPRESSION: No MRA evidence for hemodynamically significant stenosis, acute thrombosis or aneurysm Electronically Signed: Leora Fontaine MD at 11:13 EST , Service support , Neck MRA 07/19/20 23:09 IMPRESSION: Technically limited MRA due to patient motion without obvious hemodynamically significant stenosis or thrombosis. Electronically Signed: Leora Fontaine MD at 11:28 EST , Service support , OBSV E&M: 13924 Observation care discharge Procedures: [id number] Advncd Care Plan 30 Min
[2020-07-20 16:46] LABS: Bedside Glucose 242 mg/dL (70-110)
--- NOTE | 2020-07-20 16:46 | CON.PCM_ITS ---
Consultation - Renal 07/20/20 PCP/ Referring MD: Requesting physician: [] Primary care physician: Dr. Nicola Bay MD - History of Present Illness History of Present Illness: The patient is a 74 year old F with a past medical history of end-stage renal disease who presented with a chief complaint of difficulty finding words which occurred during dialysis yesterday afternoon. This has resolved and she is back to her baseline. She has a previous history of TIA. Patient denies currently dysarthria focal weakness headache nausea vomiting diarrhea abdominal pain fever chills chest pain shortness of breath. She has no other complaints. She dialyzed yesterday and she is Wednesday dialysis here in [place] [facility] [facility] - Allergies Allergies: Allergies clarithromycin [From Biaxin] Allergy (Verified 07/19/20 23:14) Unknown iodine Allergy (Verified 07/19/20 23:14) Unknown melatonin Adverse Reaction (Intermediate, Verified 07/19/20 23:14) OTHER CAUSES BAD DREAMS - Current Medications Current Medications: Current Medications Acetaminophen (Acetaminophen 325 Mg Tablet) 650 mg PO Q6H PRN PRN PRN Reason: Pain Score 1-10/Temp > 100.7 F Atorvastatin Calcium (Atorvastatin Calcium 40 Mg Tablet) 40 mg PO QHS [facility] Calcitriol (Calcitriol 0.25 Mcg Capsule) 0.5 mcg PO MOWEFR [facility] Heparin Sodium (Beef Lung) (Heparin Pf Lock 10 Units/Ml 50 Units/5 Ml Syringe) 50 units IV UD PRN PRN Reason: R Port Heparin Flush Heparin Sodium (Porcine) (Heparin 10,000 Units/10 Ml Vial) 2,500 units IV UD PRN PRN Reason: Dialysis Cath Heparin Flush Insulin Glargine (Insulin Glargine 100 Units/Ml Pen) 26 units SC .COMPLEX K[facility]OR Insulin Human Lispro (Insulin Lispro 100 Unit/Ml Insuln.Pen) 0 unit SC ACHS [facility]; Protocol Last Admin: 07/20/20 16:28 Dose: 2 units Documented by: Levothyroxine Sodium (Levothyroxine 100 Mcg Tablet) 100 mcg PO DAILY@0600 [facility] Last Admin: 07/20/20 06:41 Dose: 100 mcg Documented by: Midodrine (Midodrine Hcl 5 Mg Tablet) 10 mg PO MOWEFR [facility] Ondansetron HCl (Ondansetron 4 Mg/2 Ml Vial) 4 mg IV Q8H PRN PRN PRN Reason: NAUSEA/VOMITING Pantoprazole Sodium (Pantoprazole Sodium 40 Mg Tablet) 40 mg PO BID [facility] Last Admin: 07/20/20 08:38 Dose: 40 mg Documented by: Sevelamer Carbonate (Sevelamer Carbonate 800 Mg Tablet) 800 mg PO TIDCM [facility] Last Admin: 07/20/20 16:28 Dose: 800 mg Documented by: Sodium Chloride (0.9% Saline Lock 10 Ml Syringe) 10 ml IV UD PRN PRN Reason: Dialysis Catheter Flush Last Admin: 07/20/20 06:42 Dose: 10 ml Documented by: Sodium Chloride (0.9% Saline Lock 10 Ml Syringe) 10 - 40 ml IV UD PRN PRN Reason: R Port Saline Flush Last Admin: 07/20/20 06:42 Dose: 30 ml Documented by: Sodium Chloride (0.9 % Nacl (Sterile) Posiflush 10 Ml) 10 - 40 ml IV UD PRN PRN Reason: Port access or dressing change Sodium Chloride (0.9% Saline Lock 10 Ml Syringe) 10 - 40 ml IV UD PRN PRN Reason: SALINE FLUSH - Past Medical History Past Medical History (Chronic Problems): Chronic Problems (Last Reviewed 05/07/20 @ 10:[address] 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 She is a Ab0. Right IJ Port-A-Cath - Social History Smoking Status: Never smoker Alcohol: None Drugs: None - Family History Sibling Family History: Family History (Last Reviewed 07/19/20 @ 18:09 by Brianda Soriano INSTRUCTIONAL SPECIALIST, INSTRUCTIONAL SPECIALIST-C) Father CHF (congestive heart failure) Heart disease Mother CVA (cerebral vascular accident) History Items: Cancer Maternal Family History: Family History (Last Reviewed 07/19/20 @ 18:09 by Brianda Soriano INSTRUCTIONAL SPECIALIST, INSTRUCTIONAL SPECIALIST-C) Father CHF (congestive heart failure) Heart disease Mother CVA (cerebral vascular accident) Paternal Family History: Family History (Last Reviewed 07/19/20 @ 18:09 by Brianda Soriano NP, INSTRUCTIONAL SPECIALIST-C) Father CHF (congestive heart failure) Heart disease Mother CVA (cerebral vascular accident) Review of Systems Eyes: Reports: - - negative Unless noted in the HPI Patient Problems: Active and Suspected Problems (Last Reviewed 05/07/20 @ 10:[address] Prem Barnes MD) Difficulty with speech (Acute) Hypotension (arterial) (Acute) - Physical Exam Vitals/I&O's: Vital Signs Temp Pulse Resp BP Pulse Ox 98.4 F 105 H 16 86/42 L 98 07/20/20 14:15 07/20/20 15:00 07/20/20 14:15 07/20/20 14:15 07/20/20 14:18 Oxygen Delivery Method Room Air Weight: 78.4 kg Body Mass Index (BMI) 31.6 Finger Stick Blood Glucose 406 Intake and Output for Last 24 Hours 07/18/20 07/19/20 07/20/20 23:59 23:59 23:59 Intake Total 400 / 400 520 / 520 Output Total 0 / 0 Balance 400 / 400 520 / 520 General: Alert, Cooperative HEENT: Atraumatic, Normocephalic Neck: Trachea Midline Lungs: Clear to auscultation, - - Right-sided Port-A-Cath left IJ tunneled dialysis catheter Cardiovascular: Normal S1, Normal S2 Abdomen: Bowel Sounds Present, Soft Extremities: Edema Laboratory Results 07/19/20 00:00: Troponin I 0.028 07/19/20 18:29: Blood Type A NEGATIVE, Antibody Screen NEGATIVE, Crossmatch See Detail 07/19/20 23:52: POC Glucose 217 H 07/20/20 06:45: WBC 3.6 L, RBC 2.28 L, Hgb 7.4 L, Hct 23.4 L, MCV 102.6 H, MCH 32.5 H, MCHC 31.6 L, RDW Std Deviation 72.8 H, RDW Coeff of Mary [place] 20.0 H, Plt Count 64 L, MPV 10.7, Immature Gran % (Auto) 0.500, Neut % (Auto) 75.6 H, Lymph % (Auto) 12.4 L, [place] % (Auto) 8.0, Eos % (Auto) 3.0, Baso % (Auto) 0.5, Absolute Neuts (auto) 2.8, Absolute Lymphs (auto) 0.45 L, Nucleated RBC % 0, Differential Comment SCANNED, Diff Path Review May foll, Polychromasia RARE, Hypochromasia 2+, Macrocytosis 2+, Ovalocytes 1+ 07/20/20 06:45: Sodium 137, Potassium 4.4, Chloride 103, Carbon Dioxide 27.0, Anion Gap 7, BUN 32 H, Creatinine 3.54 H, Estim Creat Clear Calc 11.19, Est GFR (MDRD) Af Amer 16 L, Est GFR (MDRD) Non-Af 13 L, BUN/Creatinine Ratio 9.0 L, Glucose 173 H, Calcium 8.6, Triglycerides 93, Cholesterol 98, LDL Cholesterol 61, VLDL Cholesterol 19, HDL Cholesterol 18 L, TSH 21.60 H 07/20/20 06:46: POC Glucose 169 H 07/20/20 11:14: POC Glucose 247 H 07/20/20 16:27: POC Glucose 242 H Current Medications Acetaminophen (Acetaminophen 325 Mg Tablet) 650 mg PO Q6H PRN PRN PRN Reason: Pain Score 1-10/Temp > 100.7 F Atorvastatin Calcium (Atorvastatin Calcium 40 Mg Tablet) 40 mg PO QHS [facility] Calcitriol (Calcitriol 0.25 Mcg Capsule) 0.5 mcg PO MOWEFR [facility] Heparin Sodium (Beef Lung) (Heparin Pf Lock 10 Units/Ml 50 Units/5 Ml Syringe) 50 units IV UD PRN PRN Reason: R Port Heparin Flush Heparin Sodium (Porcine) (Heparin 10,000 Units/10 Ml Vial) 2,500 units IV UD PRN PRN Reason: Dialysis Cath Heparin Flush Insulin Glargine (Insulin Glargine 100 Units/Ml Pen) 26 units SC .COMPLEX [facility] Insulin Human Lispro (Insulin Lispro 100 Unit/Ml Insuln.Pen) 0 unit SC ACHS [facility]; Protocol Last Admin: 07/20/20 16:28 Dose: 2 units Documented by: Levothyroxine Sodium (Levothyroxine 100 Mcg Tablet) 100 mcg PO DAILY@0600 [facility] Last Admin: 07/20/20 06:41 Dose: 100 mcg Documented by: Midodrine (Midodrine Hcl 5 Mg Tablet) 10 mg PO MOWEFR [facility] Ondansetron HCl (Ondansetron 4 Mg/2 Ml Vial) 4 mg IV Q8H PRN PRN PRN Reason: NAUSEA/VOMITING Pantoprazole Sodium (Pantoprazole Sodium 40 Mg Tablet) 40 mg PO BID [facility] Last Admin: 07/20/20 08:38 Dose: 40 mg Documented by: Sevelamer Carbonate (Sevelamer Carbonate 800 Mg Tablet) 800 mg PO TIDCM [facility] Last Admin: 07/20/20 16:28 Dose: 800 mg Documented by: Sodium Chloride (0.9% Saline Lock 10 Ml Syringe) 10 ml IV UD PRN PRN Reason: Dialysis Catheter Flush Last Admin: 07/20/20 06:42 Dose: 10 ml Documented by: Sodium Chloride (0.9% Saline Lock 10 Ml Syringe) 10 - 40 ml IV UD PRN PRN Reason: R Port Saline Flush Last Admin: 07/20/20 06:42 Dose: 30 ml Documented by: Sodium Chloride (0.9 % Nacl (Sterile) Posiflush 10 Ml) 10 - 40 ml IV UD PRN PRN Reason: Port access or dressing change Sodium Chloride (0.9% Saline Lock 10 Ml Syringe) 10 - 40 ml IV UD PRN PRN Reason: SALINE FLUSH Assessment/Plan All Active Problems (Last Reviewed 05/07/20 @ 10:[address] 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 She was given the opportunity to ask questions and stated that those were answered to her satisfaction. Thank you very much for allowing me to participate in the care of this patient. Please do not hesitate to call if you have any questions or concerns.
--- NOTE | 2020-07-20 17:06 | CM.UR ---
Patient was given and educated on important message from Medicare regarding her discharge appeal rights. Patient was given copy and signed original was placed in the chart. Nicole Woodall RN,CCM.
[2020-07-20] MEDS: Ondansetron 4 MG/2 ML Vial IV (19:08)
[2020-07-20] MEDS: Atorvastatin Calcium 40 MG Tablet PO (20:21)
--- NOTE | 2020-07-20 20:23 | NURSING ---
Pt. requests HS PO meds at this time, accepts without difficulty.
[2020-07-20 22:26] LABS: Bedside Glucose 238 mg/dL (70-110)
[2020-07-21] MEDS: proCHLORPERazine 10 MG/2 ML Vial IV (00:34)
[2020-07-21] MEDS: 0.9% Saline Lock 10 ML Syringe IV ×2 (00:35→10:52)
[2020-07-21 02:00] VITALS: BP 93/57; PULSE 95; RESP 18; TEMP 36.8; O2SAT 97
--- NOTE | 2020-07-21 02:54 | PCS.PANDOC ---
PANDEMIC DOCUMENTATION INITIATED: Date: 07/19/20 Time: 4943
--- NOTE | 2020-07-21 02:55 | PCS.PANDOC ---
PANDEMIC DOCUMENTATION INITIATED: Date: 07/19/20 Time: 7087
[2020-07-21 02:59] VITALS: PULSE 97
[2020-07-21 04:40] LABS: Hematocrit 22.8 % (37-47); Hemoglobin 7.1 g/dL (12.0-15.0); Mean Corp Hgb Conc 31.1 g/dL (32-36); Mean Corpuscular Hgb 31.4 pg (27.0-32.0); Mean Corpuscular Volume 100.9 fL (81-99); Mean Platelet Vol. 9.9 fl (6.2-12.0); POSITIVE COUNT YES; POSITIVE MORPHOLOGY YES; Platelet Count 68 K/mm3 (150-450); RBC Distribution Width CV 19.3 % (11.6-14.6); RBC Distribution Width SD 70.8 fl (35.1-43.9); Red Blood Count 2.26 M/mm3 (4.2-5.4); White Blood Count 3.1 K/mm3 (4.4-11.0)
[2020-07-21 04:51] LABS: Scan Indicated on CBC? Y/N YES- FLAGS NOTED
[2020-07-21 04:52] LABS: Anion Gap 6 (5-15); BUN 42 mg/dL (7-18); BUN/Creat Ratio 9.7 RATIO (10-20); Calcium,Total 8.6 mg/dL (8.5-10.1); Chloride 101 mmol/L (98-107); Creatinine, Serum 4.31 mg/dL (0.55-1.02); EST Glomerular Filtration Rate 11 mL/min (>60); Est Glom Filt Rate - Afr Amer 13 mL/min (>60); Estimated Creatinine Clearance 9.19 ml/min; Glucose 211 mg/dL (74-106); Potassium 4.8 mmol/L (3.5-5.1); Sodium Level 135 mmol/L (136-145)
[2020-07-21 06:00] VITALS: BP 90/49; PULSE 98; RESP 16; TEMP 36.6; O2SAT 100
[2020-07-21] MEDS: Insulin Lispro 100 UNIT/ML INSULN.PEN SC ×2 (06:55→11:18)
[2020-07-21] MEDS: Levothyroxine 100 MCG Tablet PO (06:55)
[2020-07-21 07:00] VITALS: PULSE 103
[2020-07-21 07:18] VITALS: O2SAT 97
[2020-07-21] MEDS: SEVELAMER CARBONATE 800 MG TABLET PO ×2 (08:40→11:18)
[2020-07-21] MEDS: Pantoprazole Sodium 40 MG Tablet PO (08:40)
[2020-07-21 09:05] LABS: Bedside Glucose 192 mg/dL (70-110)
--- NOTE | 2020-07-21 09:51 | DCINST_ITS ---
- Discharge Diagnoses Current Active Problems: Current Active and Chronic Problems (Last Reviewed 05/07/20 @ 10:[address] 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) Secondary hyperparathyroidism (Chronic) Venous insufficiency (chronic) (peripheral) (Chronic) History of breast cancer (Chronic) Ascites (Chronic) CKD (chronic kidney disease) stage 4, GFR 15-29 ml/min (Chronic) TIA (transient ischemic attack) (Chronic) DM2 (diabetes mellitus, type 2) (Chronic) Benign essential HTN (Chronic) You will use the following diet at home:: No restrictions Discharge Activity: Return to Normal Activity Call your doctor if you observe: Shortness of breath, Dizziness, Fainting spells, Chest pain Allergies/Adverse Reactions: Allergies clarithromycin [From Biaxin] Allergy (Verified 07/19/20 23:14) Unknown iodine Allergy (Verified 07/19/20 23:14) Unknown melatonin Adverse Reaction (Intermediate, Verified 07/19/20 23:14) OTHER CAUSES BAD DREAMS Medications to take at Discharge Furosemide [Lasix] 40 mg PO BID 01/22/18 Pantoprazole Sodium [Protonix] 40 mg PO BID 02/01/20 Calcitriol 0.5 mcg PO MOWEFR 04/12/20 Levothyroxine [Synthroid] 100 mcg PO DAILY 06/03/20 Insulin Aspart Prot/Insuln Asp [Novolog Mix 70-30 Vial] 26 units SQ SUTUTHSA 07/19/20 Insulin Glargine [Lantus SoloStar Pen] 26 unit SC MOWEFR 07/19/20 Lorazepam [Ativan] 0.5 mg PO DAILY PRN PRN 07/19/20 Sevelamer Carbonate [Renvela] 800 mg PO TID 07/19/20 Atorvastatin Calcium [Lipitor] 40 mg PO QHS #30 tab 07/21/20 The following prescriptions were given: Atorvastatin Calcium [Lipitor] 40 mg PO QHS #30 tab Transmission Status: Pending to [facility]/pharmacy #[id number] Primary Care Physician: Nicola Bay MD [Primary Care Provider] - Please follow up with your Primary Care Physician in: 1 Week Test Results: Test results from this visit will be discussed in further detail at your follow- up appointment, if applicable. Please Follow Up With: Hospice referral When: Referral to be made following DC Proposed Discharge Date: 07/21/20
[2020-07-21 10:00] VITALS: BP 108/53; PULSE 110; RESP 18; TEMP 36.9; O2SAT 97
--- NOTE | 2020-07-21 10:17 | PCM.DC.SUM ---
<Briadna Soriano [employer] - Last Filed: 07/21/20 10:25> Discharge Date and Diagnosis - Problem List Patient Problems: Active and Suspected Problems (Last Reviewed 05/07/20 @ 10:[address] Prem Barnes MD) Difficulty with speech (Acute) Hypotension (arterial) (Acute) Date of Admission: 07/19/20 Date of Discharge: 07/21/20 - Primary Discharge Diagnosis Acute Problems: Active Problems (Last Reviewed 05/07/20 @ 10:[address] Prem Barnes MD) 1. Acute small right cerebellar infarct 2. Acute on chronic anemia/pancytopenia 3. Chronic kidney disease stage IV 4. GUEVARA 5. Severe hypothyroidism 6. Osteoporosis 7. Type 2 diabetes mellitus 8. Hypertension 9. History of breast cancer - Secondary Discharge Diagnosis Chronic Problems: Chronic Problems (Last Reviewed 05/07/20 @ 10:[address] 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 Electronically Signed: Rigo Britt MD at 15:12 EST , Service support , Brain CT 07/19/20 16:32 IMPRESSION: 1. No acute intracranial disease. 2. Small old right cerebellar infarct. 3. Mild chronic small vessel ischemic white matter changes. Individualized dose optimization techniques were used for this CT. at 1720 Reported and signed by: Chirag Key MD Electronically Signed: Chirag Key MD at 17:19 EST Tel , Service support , Brain MRI 07/19/20 23:09 IMPRESSION: 1. Involutional changes of the brain, as described above. 2. Acute small infarct of the RIGHT cerebellum. . Electronically Signed: Leora Fontaine MD at 11:25 EST , Service support , ADDENDUM: 07/20/20 1154 IMPRESSION: 1. Involutional changes of the brain, as described above. 2. Acute small infarct of the RIGHT cerebellum. . N.B. : Kendra Ruth RN, confirmed on 07/20/2020 11:47:30 (ET) that the healthcare facility has received the radiology report. Electronically Signed: Leora Fontaine MD at 11:25 EST , Service support , Head MRA 07/19/20 23:09 IMPRESSION: No MRA evidence for hemodynamically significant stenosis, acute thrombosis or aneurysm Electronically Signed: Leora Fontaine MD at 11:13 EST , Service support , Neck MRA 07/19/20 23:09 IMPRESSION: Technically limited MRA due to patient motion without obvious hemodynamically significant stenosis or thrombosis. Electronically Signed: Leora Fontaine MD at 11:28 EST , Service support , SOC neurology Dr. Max- Nephrology Operations: None Procedures: None Summary of Care Provided: The patient is a 74 year old F admitted 07/19/2020 due to speech changes. 1. Acute small right cerebellar infarct-MRA of neck without significant stenosis. Aspirin contraindicated due to pancytopenia and chronic anemia/history of GI bleed. Continue statin. Follow-up with PCP in 1 week. 2. Acute on chronic anemia/pancytopenia-status post 1 unit PRBC. Patient has a history of GI bleed/gastric antral vascular ectasia, argon plasma coagulation therapy. Continue PPI. This complicates #1 as patient should ideally be on antiplatelet along with statin. 3. Chronic kidney disease stage IV- follows with Dr. Max. On hemodialysis. Patient considering discontinuation of hemodialysis and transitioning to hospice. 4. GUEVARA- undergoes weekly paracentesis. Follows with Dr. Allen. 5. Severe hypothyroidism-continue synthroid regimen. Following with endocrinology as outpatient. TSH 21. Given patient's TSH has fluctuated and difficult to manage, recommend outpatient adjustment by endocrinology. 6. Osteoporosis-on Fosamax. 7. Type 2 diabetes mellitus- Continue home insulin regimen. 8. Hypertension-no longer on regimen. 9. History of breast cancer-in remission. General: Alert, Oriented x3, Cooperative HEENT: Atraumatic, PERRLA, EOMI, Normocephalic Neck: Supple, No JVD, Negative Carotid Bruits Lungs: Clear to auscultation, Normal air movement Cardiovascular: Regular rate, No murmurs Abdomen: Bowel Sounds Present, Soft, Non Tender Extremities: No clubbing, No cyanosis, No edema, Capillary Refill Less than 3 Seconds Skin: No rashes, No breakdown Musculoskeletal: No Tenderness to Palpation of Joints or Extremities Neurological: Cranial nerves II-XII grossly intact, Neuro grossly intact Psych/Mental Status: Normal Affect, Appropriate Patient seen and examined prior to discharge. Physical assessment as noted above. Patient is stable for discharge with follow up recommendations as noted above. Had a long discussion with patient about ongoing care. Patient states going to her weekly dialysis, paracentesis as well as other ongoing health issues is making her miserable. She discussed discontinuing aggressive treatment including dialysis and paracentesis and is requesting hospice consult following discharge. She is currently established with palliative care. Hospice referral will be made following discharge. This patient was seen by CHRISTAL Wei under the supervision of Dr. Euceda. Patient Problems: Active and Suspected Problems (Last Reviewed 05/07/20 @ 10:[address] Prem Barnes MD) Difficulty with speech (Acute) Hypotension (arterial) (Acute) - Physical Exam Vitals/I&O's: Vital Signs Temp Pulse Resp BP Pulse Ox 98.5 F 110 H 18 108/53 L 97 07/21/20 10:00 07/21/20 10:00 07/21/20 10:00 07/21/20 10:00 07/21/20 10:00 Oxygen Delivery Method Room Air Weight: 172 lb 13.478 oz Body Mass Index (BMI) 31.6 Finger Stick Blood Glucose 406 Intake and Output for Last 24 Hours 07/19/20 07/20/20 07/21/20 23:59 23:59 23:59 Intake Total 400 / 400 1120 / 1120 240 / 240 Output Total 0 / 0 0 / 0 Balance 400 / 400 1120 / 1120 240 / 240 Laboratory Results 07/20/20 11:14: POC Glucose 247 H 07/20/20 16:27: POC Glucose 242 H 07/20/20 22:09: POC Glucose 238 H 07/21/20 04:30: WBC 3.1 L, RBC 2.26 L, Hgb 7.1 L, Hct 22.8 L, MCV 100.9 H, MCH 31.4, MCHC 31.1 L, RDW Std Deviation 70.8 H, RDW Coeff of Mary Alice 19.3 H, Plt Count 68 L, MPV 9.9 07/21/20 04:30: Sodium 135 L, Potassium 4.8, Chloride 101, Carbon Dioxide 28.0, Anion Gap 6, BUN 42 H, Creatinine 4.31 H, Estim Creat Clear Calc 9.19, Est GFR (MDRD) Af Amer 13 L, Est GFR (MDRD) Non-Af 11 L, BUN/Creatinine Ratio 9.7 L, Glucose 211 H, Calcium 8.6 07/21/20 06:53: POC Glucose 192 H Current Medications Acetaminophen (Acetaminophen 325 Mg Tablet) 650 mg PO Q6H PRN PRN PRN Reason: Pain Score 1-10/Temp > 100.7 F Atorvastatin Calcium (Atorvastatin Calcium 40 Mg Tablet) 40 mg PO QHS KISHOR Last Admin: 07/20/20 20:21 Dose: 40 mg Documented by: Calcitriol (Calcitriol 0.25 Mcg Capsule) 0.5 mcg PO MOWEFR KISHOR Heparin Sodium (Beef Lung) (Heparin Pf Lock 10 Units/Ml 50 Units/5 Ml Syringe) 50 units IV UD PRN PRN Reason: R Port Heparin Flush Heparin Sodium (Porcine) (Heparin 10,000 Units/10 Ml Vial) 2,500 units IV UD PRN PRN Reason: Dialysis Cath Heparin Flush Insulin Glargine (Insulin Glargine 100 Units/Ml Pen) 26 units SC .COMPLEX KISHOR Insulin Human Lispro (Insulin Lispro 100 Unit/Ml Insuln.Pen) 0 unit SC [facility]; Protocol Last Admin: 07/21/20 06:55 Dose: 1 units Documented by: Levothyroxine Sodium (Levothyroxine 100 Mcg Tablet) 100 mcg PO DAILY@0600 [facility] Last Admin: 07/21/20 06:55 Dose: 100 mcg Documented by: Midodrine (Midodrine Hcl 5 Mg Tablet) 10 mg PO [facility] Ondansetron HCl (Ondansetron 4 Mg/2 Ml Vial) 4 mg IV Q8H PRN PRN PRN Reason: NAUSEA/VOMITING Last Admin: 07/20/20 19:08 Dose: 4 mg Documented by: Pantoprazole Sodium (Pantoprazole Sodium 40 Mg Tablet) 40 mg PO BID [facility] Last Admin: 07/21/20 08:40 Dose: 40 mg Documented by: Prochlorperazine Edisylate (Prochlorperazine 10 Mg/2 Ml Vial) 10 mg IV Q4H PRN PRN PRN Reason: nausea, emesis Last Admin: 07/21/20 00:34 Dose: 10 mg Documented by: Sevelamer Carbonate (Sevelamer Carbonate 800 Mg Tablet) 800 mg PO TIDCM [facility] Last Admin: 07/21/20 08:40 Dose: 800 mg Documented by: Sodium Chloride (0.9% Saline Lock 10 Ml Syringe) 10 ml IV UD PRN PRN Reason: Dialysis Catheter Flush Last Admin: 07/20/20 19:08 Dose: 10 ml Documented by: Sodium Chloride (0.9% Saline Lock 10 Ml Syringe) 10 - 40 ml IV UD PRN PRN Reason: R Port Saline Flush Last Admin: 07/21/20 00:35 Dose: 20 ml Documented by: Sodium Chloride (0.9 % Nacl (Sterile) Posiflush 10 Ml) 10 - 40 ml IV UD PRN PRN Reason: Port access or dressing change Sodium Chloride (0.9% Saline Lock 10 Ml Syringe) 10 - 40 ml IV UD PRN PRN Reason: SALINE FLUSH Discharge Diet: No Restrictions Discharge Activity: Return to Normal Activity Call your doctor if you observe: Shortness of breath, Dizziness, Fainting spells, Chest pain Home Medications: Medications to take at Discharge Furosemide [Lasix] 40 mg PO BID 01/22/18 Pantoprazole Sodium [Protonix] 40 mg PO BID 02/01/20 Calcitriol 0.5 mcg PO MOWEFR 04/12/20 Levothyroxine [Synthroid] 100 mcg PO DAILY 06/03/20 Insulin Aspart Prot/Insuln Asp [Novolog Mix 70-30 Vial] 26 units SQ SUTUTHSA 07/19/20 Insulin Glargine [Lantus SoloStar Pen] 26 unit SC MOWEFR 07/19/20 Lorazepam [Ativan] 0.5 mg PO DAILY PRN PRN 07/19/20 Sevelamer Carbonate [Renvela] 800 mg PO TID 07/19/20 Atorvastatin Calcium [Lipitor] 40 mg PO QHS #30 tab 07/21/20 Ondansetron HCl [Zofran] 4 mg PO Q8H PRN #20 tab 07/21/20 Following Prescriptions Were Given to Patient: Atorvastatin Calcium [Lipitor] 40 mg PO QHS #30 tab Transmission Status: Received by [facility]/pharmacy #[id number] Ondansetron HCl [Zofran] 4 mg PO Q8H PRN #20 tab PRN Reason: Nausea Transmission Status: Received by [facility]/pharmacy #[id number] Primary Care Physician: Nicola Bay MD [Primary Care Provider] - Please follow up with your Primary Care Physician in: 1 Week Please Follow Up With: Hospice referral When: Referral to be made following DC Disposition: Home Minutes spent on discharge:: 35 Patient Condition:: Stable Medical Necessity - Tobacco Use Smoking Status: Never smoker Tobacco Use: Non-smoker Meaningful Use Info Meaningful Use Diagnoses (Choose all that apply): Ischemic CVA - CVA Therapy Assessed for PT,OT and/or ST?: Yes - Ischemic Stroke Antithrombotic order at d/c?: No Reason antithrombotic not ordered: Medical Contraindication Dx of Atrial fib/flutter?: No Statins at discharge?: Yes Primary Dx Acute Ischemic CVA?: Yes IV tPA ordered during stay?: No Reason IV t-PA not ordered: Medical Contraindication <Kermit Euceda - Last Filed: 07/21/20 11:12> Discharge Date and Diagnosis - Primary Discharge Diagnosis Acute Problems: Active Problems (Last Reviewed 05/07/20 @ 10:[address] Prem Barnes MD) Difficulty with speech (Acute) Hypotension (arterial) (Acute) - Secondary Discharge Diagnosis Chronic Problems: Chronic Problems (Last Reviewed 05/07/20 @ 10:[address] 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 I have independently interviewed and examined the patient and reviewed pertinent historical, laboratory, and other data. Please refer to CHRISTAL Wei note for details of this patient's presentation, findings, and recommendations. I have reviewed CHRISTAL Wei note and concur with documented findings. In brief, patient is 74-year-old lady who presented with speech difficulty MRI demonstrated Acute small infarct of the RIGHT cerebellum. Assessment: 1. Acute right cerebellar infarct 2. Anemia 3. Diabetes mellitus type 2 4. Chronic kidney disease stage IV 5. History of breast CA currently in remission 6. Hypothyroidism 7. Nonalcoholic fatty liver disease 8. Essential hypertension 9. Osteoporosis Hospital course: As documented above - Physical Exam Vitals/I&O's: Vital Signs Temp Pulse Resp BP Pulse Ox 98.5 F 110 H 18 108/53 L 97 07/21/20 10:00 07/21/20 10:00 07/21/20 10:00 07/21/20 10:00 07/21/20 10:00 Oxygen Delivery Method Room Air Weight: 78.4 kg Body Mass Index (BMI) 31.6 Finger Stick Blood Glucose 406 Intake and Output for Last 24 Hours 07/19/20 07/20/20 07/21/20 23:59 23:59 23:59 Intake Total 400 / 400 1120 / 1120 240 / 240 Output Total 0 / 0 0 / 0 Balance 400 / 400 1120 / 1120 240 / 240 Laboratory Results 07/20/20 11:14: POC Glucose 247 H 07/20/20 16:27: POC Glucose 242 H 07/20/20 22:09: POC Glucose 238 H 07/21/20 04:30: WBC 3.1 L, RBC 2.26 L, Hgb 7.1 L, Hct 22.8 L, MCV 100.9 H, MCH 31.4, MCHC 31.1 L, RDW Std Deviation 70.8 H, RDW Coeff of Mary Alice 19.3 H, Plt Count 68 L, MPV 9.9 07/21/20 04:30: Sodium 135 L, Potassium 4.8, Chloride 101, Carbon Dioxide 28.0, Anion Gap 6, BUN 42 H, Creatinine 4.31 H, Estim Creat Clear Calc 9.19, Est GFR (MDRD) Af Amer 13 L, Est GFR (MDRD) Non-Af 11 L, BUN/Creatinine Ratio 9.7 L, Glucose 211 H, Calcium 8.6 07/21/20 06:53: POC Glucose 192 H Current Medications Acetaminophen (Acetaminophen 325 Mg Tablet) 650 mg PO Q6H PRN PRN PRN Reason: Pain Score 1-10/Temp > 100.7 F Atorvastatin Calcium (Atorvastatin Calcium 40 Mg Tablet) 40 mg PO QHS KISHOR Last Admin: 07/20/20 20:21 Dose: 40 mg Documented by: Calcitriol (Calcitriol 0.25 Mcg Capsule) 0.5 mcg PO MOWEFR [facility] Heparin Sodium (Beef Lung) (Heparin Pf Lock 10 Units/Ml 50 Units/5 Ml Syringe) 50 units IV UD PRN PRN Reason: R Port Heparin Flush Last Admin: 07/21/20 10:52 Dose: 50 units Documented by: Heparin Sodium (Porcine) (Heparin 10,000 Units/10 Ml Vial) 2,500 units IV UD PRN PRN Reason: Dialysis Cath Heparin Flush Insulin Glargine (Insulin Glargine 100 Units/Ml Pen) 26 units SC .COMPLEX [facility] Insulin Human Lispro (Insulin Lispro 100 Unit/Ml Insuln.Pen) 0 unit SC ACHS [facility]; Protocol Last Admin: 07/21/20 06:55 Dose: 1 units Documented by: Levothyroxine Sodium (Levothyroxine 100 Mcg Tablet) 100 mcg PO DAILY@0600 [facility] Last Admin: 07/21/20 06:55 Dose: 100 mcg Documented by: Midodrine (Midodrine Hcl 5 Mg Tablet) 10 mg PO MOWEFR [facility] Ondansetron HCl (Ondansetron 4 Mg/2 Ml Vial) 4 mg IV Q8H PRN PRN PRN Reason: NAUSEA/VOMITING Last Admin: 07/20/20 19:08 Dose: 4 mg Documented by: Pantoprazole Sodium (Pantoprazole Sodium 40 Mg Tablet) 40 mg PO BID [facility] Last Admin: 07/21/20 08:40 Dose: 40 mg Documented by: Prochlorperazine Edisylate (Prochlorperazine 10 Mg/2 Ml Vial) 10 mg IV Q4H PRN PRN PRN Reason: nausea, emesis Last Admin: 07/21/20 00:34 Dose: 10 mg Documented by: Sevelamer Carbonate (Sevelamer Carbonate 800 Mg Tablet) 800 mg PO TIDCM [facility] Last Admin: 07/21/20 08:40 Dose: 800 mg Documented by: Sodium Chloride (0.9% Saline Lock 10 Ml Syringe) 10 ml IV UD PRN PRN Reason: Dialysis Catheter Flush Last Admin: 07/21/20 10:52 Dose: 10 ml Documented by: Sodium Chloride (0.9% Saline Lock 10 Ml Syringe) 10 - 40 ml IV UD PRN PRN Reason: R Port Saline Flush Last Admin: 07/21/20 00:35 Dose: 20 ml Documented by: Sodium Chloride (0.9 % Nacl (Sterile) Posiflush 10 Ml) 10 - 40 ml IV UD PRN PRN Reason: Port access or dressing change Sodium Chloride (0.9% Saline Lock 10 Ml Syringe) 10 - 40 ml IV UD PRN PRN Reason: SALINE FLUSH Inpatient E&M: [id number] [facility]
[2020-07-21 11:25] LABS: Bedside Glucose 276 mg/dL (70-110)
[2020-07-22 11:43] LABS: Pathologist Review Reviewed
[2020-07-22 11:53] LABS: Pathologist Review Reviewed
== END 2020-07-21 12:00 | disposition home or self-care (01) ==
LOC: ED 17:50 → PCU 21:40
PROVIDERS: Admitting Provider Nurse Practitioner Family; Emergency Provider Emergency Medicine; PCP Family Medicine; Visit Provider Internal Medicine
DX: I95.9 Hypotension, unspecified (principal); N18.6 End stage renal disease; E11.22 Type 2 diabetes mellitus with diabetic chronic kidney disease; I12.0 Hypertensive chronic kidney disease with stage 5 chronic kidney disease or end stage renal disease; K75.81 Nonalcoholic steatohepatitis (NASH); K74.60 Unspecified cirrhosis of liver; M81.0 Age-related osteoporosis without current pathological fracture; D61.818 Other pancytopenia; Z85.3 Personal history of malignant neoplasm of breast; Z99.2 Dependence on renal dialysis; E06.3 Autoimmune thyroiditis; N25.81 Secondary hyperparathyroidism of renal origin; I87.2 Venous insufficiency (chronic) (peripheral); Z86.73 Personal history of transient ischemic attack (TIA), and cerebral infarction without residual deficits; R18.8 Other ascites; Z79.899 Other long term (current) drug therapy; Z79.4 Long term (current) use of insulin
CPT/HCPCS: 36415; 36430; 70450; 70544; 70547; 70551; 71045; 80048; 80061; 82962; 84443; 84484; 85025; 85027; 86850; 86900; 86901; 86920; 86922; 92610; 93005; 94762; 96374; 96375; 99218; 99285; J7040; P9016; A4216; G0378; J2405

== ENCOUNTER → 2020-07-25 10:26 | Outpatient (CLI) | payer MEDICARE, SELFPAY ==
[2020-05-09 11:42] VITALS: BMI 30.7
[2020-07-19 23:12] VITALS: BMI 31.6
--- NOTE | 2020-07-25 10:28 | US_ITS ---
PROCEDURE: Ultrasound guided paracentesis. DATE OF EXAMINATION: 07/25/2020. INDICATION: Female, 74 years old. Ascites. PHYSICIAN: Rigo Britt M.D. TECHNIQUE: The risks, benefits, and alternatives to the procedure were explained to the patient. The specific risks of bleeding, infection, and damage to bowel were detailed and accepted. Witnessed informed consent was obtained. The abdomen was ultrasonographically surveyed. An appropriate pocket of fluid was identified at the left lower quadrant. The skin were cleaned and prepped in the usual sterile fashion. Using ultrasound guidance, the peritoneal cavity was accessed with a 5-Syriac paracentesis needle/catheter system. The trocar was removed. A total of 7500 ml of harsh-colored fluid were removed from the peritoneal cavity. The catheter was removed and a sterile dressing was applied. The procedure was well tolerated. US/Paracentesis with US IMPRESSION: Ultrasound guided paracentesis. Electronically Signed: Rigo Britt MD at 12:17 EST , Service support ,
[2020-07-25 10:49] VITALS: BP 106/41; BP 79/42; BP 81/44; BP 95/48; PULSE 100; PULSE 102; PULSE 90; PULSE 98; RESP 16; RESP 18; O2SAT 100; O2SAT 97
[2020-07-25 11:33] VITALS: BP 78/40; PULSE 93; RESP 16; TEMP 36.3; O2SAT 100; BMI 30.7
[2020-07-25] MEDS: Albumin Human 25% (50 mL) 12.5 GM/50 ML IV.SOLN IV (11:54)
[2020-07-25 12:55] VITALS: BP 75/38; PULSE 93; RESP 16; TEMP 36.7; O2SAT 100
== END ==
LOC: US 10:26 → MEDOUTP 11:30
PROVIDERS: PCP Family Medicine; Referring Provider Internal Medicine Gastroenterology; Visit Provider Internal Medicine Gastroenterology
DX: K74.60 Unspecified cirrhosis of liver (principal)
CPT/HCPCS: 96365; 49083; P9047; A4216

== ENCOUNTER → 2020-08-01 10:14 | Outpatient (CLI) | payer MEDICARE, SELFPAY ==
[2020-05-09 11:42] VITALS: BMI 30.7
[2020-07-25 11:33] VITALS: BMI 30.7
--- NOTE | 2020-08-01 10:16 | US_ITS ---
PROCEDURE: ULTRASOUND GUIDED PARACENTESIS CLINICAL HISTORY: Female, 74 years old. ASCITES CONSENT: The risks, benefits and alternatives to the procedure were explained to the patient, and the patient agreed to the procedure and signed the consent. 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 PROCEDURE/TECHNIQUE: The risks, benefits, and alternatives to the procedure were explained to patient, and the patient agreed to the procedure and signed a consent form for the procedure. TECHNIQUE: Under the ultrasound guidance using sterile technique and after infiltration of the skin and subcutaneous soft tissues with 10 mL of lidocaine 1% a 5 Hebrew drainage catheter is introduced in the lower part of the abdomen. 7550 mL of fluid were removed sample sent to lab for evaluation. The patient tolerated the procedure there was no immediate complication. FINDINGS: FLUID PRE-PROCEDURE There is posterior enhancement. The findings appear anechoic. There is no loculation. FLUID POST-PROCEDURE Amount of fluid drained: 7550 ml. US/Paracentesis with US IMPRESSION: Successful ultrasound-guided paracentesis. Electronically Signed: Samra Martinez MD at 3:56 EST Tel , Service support ,
[2020-08-01] MEDS: Albumin Human 25% (50 mL) 12.5 GM/50 ML IV.SOLN IV (12:38)
[2020-08-01 12:46] VITALS: BP 84/39; PULSE 87; RESP 16; TEMP 36.1; O2SAT 100; BMI 30.7
[2020-08-01 13:13] VITALS: BP 78/40; BP 82/40; BP 84/39; BP 86/35; BP 89/23; PULSE 100; PULSE 88; PULSE 89; PULSE 90; PULSE 93; PULSE 95; RESP 16; RESP 18; O2SAT 100; O2SAT 93; O2SAT 96
[2020-08-01 13:30] VITALS: BP 87/44; PULSE 93
== END ==
LOC: US 10:15 → MEDOUTP 12:34
PROVIDERS: PCP Family Medicine; Referring Provider Internal Medicine Gastroenterology; Visit Provider Internal Medicine Gastroenterology
DX: K74.60 Unspecified cirrhosis of liver (principal)
CPT/HCPCS: 96365; 49083; P9047; A4216

== ENCOUNTER → 2020-08-08 10:10 | Outpatient (CLI) | payer MEDICARE, SELFPAY ==
[2020-05-09 11:42] VITALS: BMI 30.7
[2020-08-01 12:46] VITALS: BMI 30.7
--- NOTE | 2020-08-08 10:11 | US_ITS ---
PROCEDURE: Ultrasound guided paracentesis. DATE OF EXAMINATION: 08/08/2020. INDICATION: Female, 74 years old. Ascites. PHYSICIAN: Rigo Britt M.D. TECHNIQUE: The risks, benefits, and alternatives to the procedure were explained to the patient. The specific risks of bleeding, infection, and damage to bowel were detailed and accepted. Witnessed informed consent was obtained. The abdomen was ultrasonographically surveyed. An appropriate pocket of fluid was identified at the right lower quadrant. The skin were cleaned and prepped in the usual sterile fashion. Using ultrasound guidance, the peritoneal cavity was accessed with a 5-Polish paracentesis needle/catheter system. The trocar was removed. A total of 6050 ml of harsh-colored fluid were removed from the peritoneal cavity. The catheter was removed and a sterile dressing was applied. The procedure was well tolerated. US/Paracentesis with US IMPRESSION: Ultrasound guided paracentesis. Electronically Signed: Rigo Britt MD at 11:52 EST , Service support ,
[2020-08-08 10:47] VITALS: BP 107/53; BP 88/47; BP 89/52; PULSE 92; PULSE 94; PULSE 96; RESP 16; RESP 18; O2SAT 100; O2SAT 95
[2020-08-08 11:38] VITALS: BP 77/41; PULSE 90; RESP 16; TEMP 36.5; O2SAT 97; BMI 30.7
[2020-08-08] MEDS: Albumin Human 25% (50 mL) 12.5 GM/50 ML IV.SOLN IV (11:52)
[2020-08-08 12:41] VITALS: BP 77/41; PULSE 90; RESP 16; TEMP 36.5; O2SAT 97
--- NOTE | 2020-08-08 15:52 | CASEMGMT ---
RN Care Coordination Follow-up: Phone call placed to patient s/p paracentesis and albumin infusion on this date. Pt states she is doing well. She is continuing with hemodialysis on Wednesday, Wednesday, and Wednesday's and is tolerating them well. Pt states she is taking one day at a time. She continues to work with palliative care and states she had a visit on Wednesday this week and is to receive a follow-up call next week regarding her medication adjustments. Pt denies any needs at this time. Will continue to monitor and assist as needed. Librado Rodríguez RN CM
== END ==
LOC: US 10:11 → MEDOUTP 11:26
PROVIDERS: PCP Family Medicine; Referring Provider Internal Medicine Gastroenterology; Visit Provider Internal Medicine Gastroenterology
DX: K74.60 Unspecified cirrhosis of liver (principal)
CPT/HCPCS: 96365; 49083; P9047; A4216

== ENCOUNTER 2020-08-15 10:22 | Outpatient (CLI) | payer MEDICARE, SELFPAY ==
[2020-05-09 11:42] VITALS: BMI 30.7
[2020-08-08 11:38] VITALS: BMI 30.7
--- NOTE | 2020-08-15 10:24 | US_ITS ---
PROCEDURE: Ultrasound guided paracentesis. DATE OF EXAMINATION: 08/15/2020. INDICATION: Female, 74 years old. Ascites. PHYSICIAN: Rigo Britt M.D. TECHNIQUE: The risks, benefits, and alternatives to the procedure were explained to the patient. The specific risks of bleeding, infection, and damage to bowel were detailed and accepted. Witnessed informed consent was obtained. The abdomen was ultrasonographically surveyed. An appropriate pocket of fluid was identified at the right lower quadrant. The skin were cleaned and prepped in the usual sterile fashion. Using ultrasound guidance, the peritoneal cavity was accessed with a 5-Maltese paracentesis needle/catheter system. The trocar was removed. A total of 6000 ml of harsh-colored fluid were removed from the peritoneal cavity. The catheter was removed and a sterile dressing was applied. The procedure was well tolerated. US/Paracentesis with US IMPRESSION: Ultrasound guided paracentesis. Electronically Signed: Rigo Britt MD at 12:10 EST , Service support ,
[2020-08-15 10:49] VITALS: BP 80/42; BP 83/49; BP 94/52; PULSE 90; PULSE 91; PULSE 96; RESP 18; RESP 20; TEMP 36.7; O2SAT 100; O2SAT 99
[2020-08-15 11:50] VITALS: BP 79/42; PULSE 84; RESP 18; TEMP 36.5; O2SAT 100; BMI 30.7
[2020-08-15] MEDS: Albumin Human 25% (50 mL) 12.5 GM/50 ML IV.SOLN IV (12:13)
[2020-08-15 13:10] VITALS: BP 72/43; PULSE 87; RESP 16; O2SAT 92
== END 2020-08-15 16:00 | disposition home or self-care (01) ==
LOC: US 10:23 → MEDOUTP 11:20
PROVIDERS: PCP Family Medicine; Referring Provider Internal Medicine Gastroenterology; Visit Provider Internal Medicine Gastroenterology
DX: K74.60 Unspecified cirrhosis of liver (principal)
CPT/HCPCS: 96365; 49083; P9047; A4216

== ENCOUNTER 2020-08-22 10:19 | Outpatient (CLI) | payer MEDICARE, SELFPAY ==
[2020-07-19 23:12] VITALS: BMI 31.6
--- NOTE | 2020-08-22 10:21 | US_ITS ---
PROCEDURE: Ultrasound guided paracentesis. DATE OF EXAMINATION: 08/22/2020. INDICATION: Female, 74 years old. Ascites. PHYSICIAN: Rigo Britt M.D. TECHNIQUE: The risks, benefits, and alternatives to the procedure were explained to the patient. The specific risks of bleeding, infection, and damage to bowel were detailed and accepted. Witnessed informed consent was obtained. The abdomen was ultrasonographically surveyed. An appropriate pocket of fluid was identified at the left lower quadrant. The skin were cleaned and prepped in the usual sterile fashion. Using ultrasound guidance, the peritoneal cavity was accessed with a 5-German paracentesis needle/catheter system. The trocar was removed. A total of 6100 ml of harsh-colored fluid were removed from the peritoneal cavity. The catheter was removed and a sterile dressing was applied. The procedure was well tolerated. US/Paracentesis with US IMPRESSION: Ultrasound guided paracentesis. Electronically Signed: Rigo Britt MD at 11:48 EST , Service support ,
[2020-08-22 10:51] VITALS: BP 105/53; BP 107/54; BP 94/49; PULSE 101; PULSE 98; PULSE 99; RESP 16; RESP 18; TEMP 36.8; O2SAT 100; O2SAT 99
[2020-08-22] MEDS: Albumin Human 25% (50 mL) 12.5 GM/50 ML IV.SOLN IV (12:02)
[2020-08-22 12:05] VITALS: BP 75/41; PULSE 74; RESP 16; BMI 30.7
[2020-08-22 12:49] VITALS: BP 86/52; PULSE 96
--- NOTE | 2020-08-23 13:45 | CASEMGMT ---
EVAN CM Care Coordination Note: Call placed to Dr Herzog to inquire about pre-medicating pt w/Midodrine prior to paracentesis, as pt's BP's have been running low during and after paracentesis, sometimes going as low as systolic in 70's and 80's. 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 Call placed to EVAN Glasgow clinical coordinator @ [facility]. He was made aware of the above and states he will check with Dr Valdivia about this and will notify either this RN CM today of response, or EVAN Chaidez CM assistant project manager, next week., if he does not hear back from Dr Valdivia today. Per Pee, pt is taking this prior to dialysis. He states pt's current order is for Midodrine 10 mg, 2 tabs, BID, as directed and he states he is not sure if pt is taking it more frequently than prior to dialysis. [id number]
== END 2020-08-22 13:51 | disposition home or self-care (01) ==
LOC: US 10:20 → MEDOUTP 11:26
PROVIDERS: PCP Family Medicine; Referring Provider Internal Medicine Gastroenterology; Visit Provider Internal Medicine Gastroenterology
DX: K74.60 Unspecified cirrhosis of liver (principal)
CPT/HCPCS: 96365; 49083; P9047; A4216

== ENCOUNTER 2020-08-29 10:29 | Outpatient (CLI) | payer MEDICARE, SELFPAY ==
[2020-07-19 23:12] VITALS: BMI 31.6
--- NOTE | 2020-08-29 10:31 | US_ITS ---
PROCEDURE: ULTRASOUND GUIDED PARACENTESIS CLINICAL HISTORY: Female, 74 years old. ASCITES CONSENT: The risks, benefits and alternatives to the procedure were explained to the patient, and the patient agreed to the procedure and signed the consent. 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 PROCEDURE/TECHNIQUE: The risks, benefits, and alternatives to the procedure were explained to patient, and the patient agreed to the procedure and signed a consent form for the procedure. TECHNIQUE: Under the ultrasound guidance using sterile technique and after infiltration of the skin and subcutaneous soft tissues with 10 mL of lidocaine 1% a 5 Hungarian drainage catheter is introduced in the lower part of the abdomen. 6100 mL of fluid were removed sample sent to lab for evaluation. The patient tolerated the procedure there was no immediate complication. FINDINGS: FLUID PRE-PROCEDURE There is posterior enhancement. The findings appear anechoic. There is no loculation. FLUID POST-PROCEDURE Amount of fluid drained: 6100 ml. US/Paracentesis with US IMPRESSION: Successful ultrasound-guided paracentesis. Electronically Signed: Samra Martinez MD at 17:24 EST Tel , Service support ,
[2020-08-29 10:47] VITALS: BP 101/47; BP 86/46; BP 94/37; PULSE 85; PULSE 88; PULSE 94; RESP 16; TEMP 36.6; O2SAT 100; O2SAT 99
[2020-08-29 11:43] VITALS: BP 77/45; PULSE 83; RESP 16; TEMP 35.8; O2SAT 100; BMI 30.7
[2020-08-29] MEDS: Albumin Human 25% (50 mL) 12.5 GM/50 ML IV.SOLN IV (11:50)
[2020-08-29 12:57] VITALS: BP 98/67; PULSE 72
== END 2020-08-29 14:00 | disposition home or self-care (01) ==
LOC: US 10:29 → MEDOUTP 11:58
PROVIDERS: PCP Family Medicine; Referring Provider Internal Medicine Gastroenterology; Visit Provider Internal Medicine Gastroenterology
DX: K74.60 Unspecified cirrhosis of liver (principal)
CPT/HCPCS: 96365; 49083; P9047; A4216

== ENCOUNTER → 2020-09-05 10:19 | Outpatient (CLI) | payer MEDICARE, SELFPAY ==
[2020-07-19 23:12] VITALS: BMI 31.6
[2020-08-29 11:43] VITALS: BMI 30.7
--- NOTE | 2020-09-05 10:22 | US_ITS ---
PROCEDURE: Ultrasound guided paracentesis. DATE OF EXAMINATION: 09/05/2020. INDICATION: Female, 74 years old. Ascites. PHYSICIAN: Rigo Britt M.D. TECHNIQUE: The risks, benefits, and alternatives to the procedure were explained to the patient. The specific risks of bleeding, infection, and damage to bowel were detailed and accepted. Witnessed informed consent was obtained. The abdomen was ultrasonographically surveyed. An appropriate pocket of fluid was identified at the left lower quadrant. The skin were cleaned and prepped in the usual sterile fashion. Using ultrasound guidance, the peritoneal cavity was accessed with a 5-Romansh paracentesis needle/catheter system. The trocar was removed. A total of 6000 ml of harsh-colored fluid were removed from the peritoneal cavity. The catheter was removed and a sterile dressing was applied. The procedure was well tolerated. US/Paracentesis with US IMPRESSION: Ultrasound guided paracentesis. Electronically Signed: Rigo Britt MD at 12:46 EDT , Service support ,
[2020-09-05 10:45] VITALS: BP 84/42; BP 91/41; BP 98/52; BP 99/56; PULSE 102; PULSE 93; PULSE 94; PULSE 97; RESP 18; TEMP 36.9; O2SAT 100; O2SAT 99
[2020-09-05 11:57] VITALS: BP 84/40; PULSE 89; RESP 16; TEMP 36.4; O2SAT 100; BMI 30.7
[2020-09-05] MEDS: Albumin Human 25% (50 mL) 12.5 GM/50 ML IV.SOLN IV (12:24)
[2020-09-05 13:03] VITALS: BP 85/46; PULSE 76; RESP 18; TEMP 36.3
== END ==
LOC: US 10:20 → MEDOUTP 12:28
PROVIDERS: PCP Family Medicine; Referring Provider Internal Medicine Gastroenterology; Visit Provider Internal Medicine Gastroenterology
DX: K74.60 Unspecified cirrhosis of liver (principal)
CPT/HCPCS: 96365; 49083; P9047; A4216

== ENCOUNTER → 2020-09-12 10:24 | Outpatient (CLI) | payer MEDICARE, SELFPAY ==
[2020-07-19 23:12] VITALS: BMI 31.6
[2020-09-05 11:57] VITALS: BMI 30.7
--- NOTE | 2020-09-12 10:26 | US_ITS ---
PROCEDURE: Ultrasound guided paracentesis. DATE OF EXAMINATION: 09/12/2020. INDICATION: Female, 74 years old. Ascites. PHYSICIAN: Rigo Britt M.D. TECHNIQUE: The risks, benefits, and alternatives to the procedure were explained to the patient. The specific risks of bleeding, infection, and damage to bowel were detailed and accepted. Witnessed informed consent was obtained. The abdomen was ultrasonographically surveyed. An appropriate pocket of fluid was identified at the left lower quadrant. The skin were cleaned and prepped in the usual sterile fashion. Using ultrasound guidance, the peritoneal cavity was accessed with a 5-Kyrgyz paracentesis needle/catheter system. The trocar was removed. A total of 6000 ml of harsh color fluid were removed from the peritoneal cavity. The catheter was removed and a sterile dressing was applied. The procedure was well tolerated. US/Paracentesis with US IMPRESSION: Ultrasound guided paracentesis. Electronically Signed: Rigo Britt MD at 12:11 EDT , Service support ,
[2020-09-12 10:44] VITALS: BP 106/58; BP 93/50; PULSE 92; PULSE 96; RESP 18; TEMP 36.9; O2SAT 100; O2SAT 99
[2020-09-12] MEDS: Albumin Human 25% (50 mL) 12.5 GM/50 ML IV.SOLN IV (11:36)
[2020-09-12 11:40] VITALS: BP 80/40; PULSE 91; RESP 16; TEMP 35.7; O2SAT 100; BMI 28.3
[2020-09-12 12:23] VITALS: BP 89/46; PULSE 75; RESP 18; TEMP 35.7; O2SAT 99
--- NOTE | 2020-09-12 12:30 | CASEMGMT ---
EVAN ANDERSON Care coordination note: Met w/pt @ OP infusion while pt receiving Albumin post paracentesis. Pt states she has been tolerating dialysis well lately, her family continues to provide transportation for her to all of her appts, and states she has been managing well @ home. Palliative care was out to her home about 2 weeks ago. She denies having any needs/concerns/questions at this time. EVAN ANDERSON to continue to be available for any upcoming needs that may arise. Lei HACKETT RN, CM
== END ==
PROVIDERS: PCP Family Medicine; Referring Provider Internal Medicine Gastroenterology; Visit Provider Internal Medicine Gastroenterology
DX: K74.60 Unspecified cirrhosis of liver (principal)
CPT/HCPCS: 96365; 49083; P9047; A4216

== ENCOUNTER → 2020-09-19 10:15 | Outpatient (CLI) | payer MEDICARE, SELFPAY ==
[2020-07-19 23:12] VITALS: BMI 31.6
[2020-09-12 11:40] VITALS: BMI 28.3
--- NOTE | 2020-09-19 10:17 | US_ITS ---
PROCEDURE: Ultrasound guided paracentesis. DATE OF EXAMINATION: 09/19/2020. INDICATION: Female, 74 years old. Ascites. PHYSICIAN: Rigo Britt M.D. TECHNIQUE: The risks, benefits, and alternatives to the procedure were explained to the patient. The specific risks of bleeding, infection, and damage to bowel were detailed and accepted. Witnessed informed consent was obtained. The abdomen was ultrasonographically surveyed. An appropriate pocket of fluid was identified at the right lower quadrant. The skin were cleaned and prepped in the usual sterile fashion. Using ultrasound guidance, the peritoneal cavity was accessed with a 5-Nicaraguan paracentesis needle/catheter system. The trocar was removed. A total of 6000 ml of harsh-colored fluid were removed from the peritoneal cavity. The catheter was removed and a sterile dressing was applied. The procedure was well tolerated. US/Paracentesis with US IMPRESSION: Ultrasound guided paracentesis. Electronically Signed: Rigo Britt MD at 11:42 EDT , Service support ,
[2020-09-19 10:37] VITALS: BP 85/41; BP 95/60; BP 97/26; PULSE 90; PULSE 91; RESP 14; RESP 16; TEMP 37.1; O2SAT 100
[2020-09-19 11:22] VITALS: BP 84/50; PULSE 91; RESP 16; TEMP 36.8; O2SAT 98; BMI 28.3
[2020-09-19] MEDS: Albumin Human 25% (50 mL) 12.5 GM/50 ML IV.SOLN IV (11:32)
--- NOTE | 2020-09-19 12:00 | CASEMGMT ---
EVAN ANDERSON Care Coordination: VM received from pt re: interest in getting COVID vaccine and asking for assistance w/getting it scheduled. EVAN ANDERSON met with pt @ infusion bay while pt getting albumin post paracentesis. Pt states it has been arranged for her now to have COVID vaccine next week @ [facility] and she does not need further assistance with this and her family will provide transportation. Pt states, Everything is going great. I feel really good and I've been resting really goo. It makes me really happy with how well I have been doing. She denies having any concerns/questions/needs at this time and states will contact EVAN ANDERSON if any needs arise. Lei HACKETT RN, CM
[2020-09-19 12:11] VITALS: BP 81/48; PULSE 84; RESP 16; TEMP 36.4
== END ==
LOC: US 10:16 → MEDOUTP 11:11
PROVIDERS: PCP Family Medicine; Referring Provider Internal Medicine Gastroenterology; Visit Provider Internal Medicine Gastroenterology
DX: K74.60 Unspecified cirrhosis of liver (principal)
CPT/HCPCS: 96365; 49083; P9047; A4216

== ENCOUNTER 2020-09-25 09:51 | Outpatient (RCR) | payer MEDICARE, SELFPAY ==
[2020-09-26 12:06] VITALS: BMI 28.3
== END 2020-11-26 23:59 ==
LOC: IMMUN 09:51
PROVIDERS: PCP Family Medicine; Visit Provider Family Medicine
DX: Z23 Encounter for immunization (principal)
CPT/HCPCS: 0001A; 0002A; 91300

== ENCOUNTER → 2020-09-26 10:15 | Outpatient (CLI) | payer MEDICARE, SELFPAY ==
[2020-07-19 23:12] VITALS: BMI 31.6
[2020-09-19 11:22] VITALS: BMI 28.3
--- NOTE | 2020-09-26 10:18 | US_ITS ---
PROCEDURE: Ultrasound guided paracentesis. DATE OF EXAMINATION: 09/26/2020.. INDICATION: Female, 74 years old. Ascites. PHYSICIAN: Rigo Britt M.D. TECHNIQUE: The risks, benefits, and alternatives to the procedure were explained to the patient. The specific risks of bleeding, infection, and damage to bowel were detailed and accepted. Witnessed informed consent was obtained. The abdomen was ultrasonographically surveyed. An appropriate pocket of fluid was identified at the right lower quadrant. The skin were cleaned and prepped in the usual sterile fashion. Using ultrasound guidance, the peritoneal cavity was accessed with a 5-Welsh paracentesis needle/catheter system. The trocar was removed. A total of 6050 ml of harsh-colored fluid were removed from the peritoneal cavity. The catheter was removed and a sterile dressing was applied. The procedure was well tolerated. US/Paracentesis with US IMPRESSION: Ultrasound guided paracentesis. Electronically Signed: Rigo Britt MD at 8:03 EDT , Service support ,
[2020-09-26 10:35] VITALS: BP 108/54; BP 109/56; BP 76/46; BP 94/48; PULSE 79; PULSE 83; PULSE 88; RESP 16; RESP 18; TEMP 36.4; O2SAT 100; O2SAT 99
[2020-09-26] MEDS: Albumin Human 25% (50 mL) 12.5 GM/50 ML IV.SOLN IV (12:05)
[2020-09-26 12:06] VITALS: BP 92/50; PULSE 84; RESP 16; TEMP 36.6; O2SAT 98; BMI 28.3
[2020-09-26 12:52] VITALS: BP 82/46; PULSE 90; RESP 16; O2SAT 100
== END ==
PROVIDERS: PCP Family Medicine; Referring Provider Internal Medicine Gastroenterology; Visit Provider Internal Medicine Gastroenterology
DX: K74.60 Unspecified cirrhosis of liver (principal)
CPT/HCPCS: 96365; 49083; P9047; A4216

== ENCOUNTER → 2020-10-03 10:15 | Outpatient (CLI) | payer MEDICARE, SELFPAY ==
[2020-07-19 23:12] VITALS: BMI 31.6
[2020-09-26 12:06] VITALS: BMI 28.3
--- NOTE | 2020-10-03 10:17 | US_ITS ---
PROCEDURE: Ultrasound guided paracentesis. DATE OF EXAMINATION: 10/03/2020. INDICATION: Female, 74 years old. Ascites. PHYSICIAN: Rigo Britt M.D. TECHNIQUE: The risks, benefits, and alternatives to the procedure were explained to the patient. The specific risks of bleeding, infection, and damage to bowel were detailed and accepted. Witnessed informed consent was obtained. The abdomen was ultrasonographically surveyed. An appropriate pocket of fluid was identified at the right lower quadrant. The skin were cleaned and prepped in the usual sterile fashion. Using ultrasound guidance, the peritoneal cavity was accessed with a 5-Kyrgyz paracentesis needle/catheter system. The trocar was removed. A total of 6050 ml of harsh color fluid were removed from the peritoneal cavity. The catheter was removed and a sterile dressing was applied. The procedure was well tolerated. US/Paracentesis with US IMPRESSION: Ultrasound guided paracentesis. Electronically Signed: Rigo Britt MD at 12:16 EDT , Service support ,
[2020-10-03 10:45] VITALS: BP 103/59; BP 81/46; BP 88/54; PULSE 57; PULSE 90; PULSE 97; RESP 14; TEMP 36.9; O2SAT 100
[2020-10-03 11:44] VITALS: BP 82/46; PULSE 90; RESP 16; TEMP 36.1; O2SAT 99; BMI 28.3
[2020-10-03] MEDS: Albumin Human 25% (50 mL) 12.5 GM/50 ML IV.SOLN IV (12:01)
[2020-10-03 12:50] VITALS: BP 91/45; PULSE 91
== END ==
PROVIDERS: PCP Family Medicine; Referring Provider Internal Medicine Gastroenterology; Visit Provider Internal Medicine Gastroenterology
DX: K74.60 Unspecified cirrhosis of liver (principal)
CPT/HCPCS: 96365; 49083; P9047; A4216

== ENCOUNTER 2020-10-10 10:20 | Outpatient (CLI) | payer MEDICARE, SELFPAY ==
[2020-07-19 23:12] VITALS: BMI 31.6
[2020-10-03 11:44] VITALS: BMI 28.3
--- NOTE | 2020-10-10 10:23 | US_ITS ---
PROCEDURE: Ultrasound guided paracentesis. DATE OF EXAMINATION: 10/10/2020. INDICATION: Female, 74 years old. Ascites. PHYSICIAN: Rigo Britt M.D. TECHNIQUE: The risks, benefits, and alternatives to the procedure were explained to the patient. The specific risks of bleeding, infection, and damage to bowel were detailed and accepted. Witnessed informed consent was obtained. The abdomen was ultrasonographically surveyed. An appropriate pocket of fluid was identified at the right lower quadrant. The skin were cleaned and prepped in the usual sterile fashion. Using ultrasound guidance, the peritoneal cavity was accessed with a 5-Comoran paracentesis needle/catheter system. The trocar was removed. A total of 6050 ml of harsh-colored fluid were removed from the peritoneal cavity. The catheter was removed and a sterile dressing was applied. The procedure was well tolerated. US/Paracentesis with US IMPRESSION: Ultrasound guided paracentesis. Electronically Signed: Rigo Britt MD at 11:31 EDT , Service support ,
[2020-10-10 10:40] VITALS: BP 113/47; BP 114/51; BP 120/47; PULSE 91; PULSE 94; PULSE 95; RESP 16; RESP 18; O2SAT 97; O2SAT 98
[2020-10-10 11:31] VITALS: BP 79/43; PULSE 89; RESP 16; TEMP 35.8; O2SAT 89; BMI 29.9
[2020-10-10] MEDS: Albumin Human 25% (50 mL) 12.5 GM/50 ML IV.SOLN IV (12:01)
[2020-10-10 12:54] VITALS: BP 87/47; PULSE 89; RESP 16; TEMP 35.9; O2SAT 98
== END 2020-10-10 16:00 | disposition home or self-care (01) ==
LOC: US 10:20 → MEDOUTP 11:19
PROVIDERS: PCP Family Medicine; Visit Provider Internal Medicine Gastroenterology
DX: K74.60 Unspecified cirrhosis of liver (principal)
CPT/HCPCS: 96365; 49083; P9047; A4216

== ENCOUNTER → 2020-10-17 10:18 | Outpatient (CLI) | payer MEDICARE, SELFPAY ==
[2020-07-19 23:12] VITALS: BMI 31.6
[2020-10-10 11:31] VITALS: BMI 29.9
--- NOTE | 2020-10-17 10:19 | US_ITS ---
PROCEDURE: Ultrasound guided paracentesis. DATE OF EXAMINATION: 10/17/2020.. INDICATION: Female, 74 years old. Ascites. PHYSICIAN: Rigo Britt M.D. TECHNIQUE: The risks, benefits, and alternatives to the procedure were explained to the patient. The specific risks of bleeding, infection, and damage to bowel were detailed and accepted. Witnessed informed consent was obtained. The abdomen was ultrasonographically surveyed. An appropriate pocket of fluid was identified at the right lower quadrant. The skin were cleaned and prepped in the usual sterile fashion. Using ultrasound guidance, the peritoneal cavity was accessed with a 5-Thai paracentesis needle/catheter system. The trocar was removed. A total of 6050 ml of harsh-colored fluid were removed from the peritoneal cavity. The catheter was removed and a sterile dressing was applied. The procedure was well tolerated. US/Paracentesis with US IMPRESSION: Ultrasound guided paracentesis. Electronically Signed: Rigo Britt MD at 11:33 EDT , Service support ,
[2020-10-17 10:35] VITALS: BP 102/53; BP 123/63; BP 94/53; PULSE 92; PULSE 95; PULSE 97; RESP 16; RESP 18; TEMP 36.8; O2SAT 100; O2SAT 95; O2SAT 98
[2020-10-17 11:25] VITALS: BP 77/42; PULSE 89; RESP 16; TEMP 36.4; O2SAT 99; BMI 31.4
[2020-10-17] MEDS: Albumin Human 25% (50 mL) 12.5 GM/50 ML IV.SOLN IV (11:47)
[2020-10-17 12:37] VITALS: BP 98/64; PULSE 72
== END ==
LOC: US 10:19 → MEDOUTP 11:15
PROVIDERS: PCP Family Medicine; Referring Provider Internal Medicine Gastroenterology; Visit Provider Internal Medicine Gastroenterology
DX: K74.60 Unspecified cirrhosis of liver (principal)
CPT/HCPCS: 96365; 49083; P9047; A4216

== ENCOUNTER → 2020-10-24 10:20 | Outpatient (CLI) | payer MEDICARE, SELFPAY ==
[2020-10-17 11:25] VITALS: BMI 31.4
--- NOTE | 2020-10-24 10:22 | US_ITS ---
PROCEDURE: Ultrasound guided paracentesis. DATE OF EXAMINATION: 10/24/2020.. INDICATION: Female, 74 years old. Ascites. PHYSICIAN: Rigo Britt M.D. TECHNIQUE: The risks, benefits, and alternatives to the procedure were explained to the patient. The specific risks of bleeding, infection, and damage to bowel were detailed and accepted. Witnessed informed consent was obtained. The abdomen was ultrasonographically surveyed. An appropriate pocket of fluid was identified at the left lower quadrant. The skin were cleaned and prepped in the usual sterile fashion. Using ultrasound guidance, the peritoneal cavity was accessed with a 5-Bolivian paracentesis needle/catheter system. The trocar was removed. A total of 6050 ml of harsh-colored fluid were removed from the peritoneal cavity. The catheter was removed and a sterile dressing was applied. The procedure was well tolerated. US/Paracentesis with US IMPRESSION: Ultrasound guided paracentesis. Electronically Signed: Rigo Britt MD at 13:15 EDT , Service support ,
[2020-10-24 10:40] VITALS: BP 102/55; BP 102/59; BP 92/52; BP 93/47; PULSE 87; PULSE 90; PULSE 92; PULSE 94; RESP 16; TEMP 36.6; O2SAT 100
[2020-10-24 11:55] VITALS: BP 82/43; PULSE 88; RESP 16; TEMP 35.8; O2SAT 100; BMI 70.9
[2020-10-24] MEDS: Albumin Human 25% (50 mL) 12.5 GM/50 ML IV.SOLN IV (12:01)
[2020-10-24 12:43] VITALS: BP 90/49; PULSE 75; RESP 16; TEMP 35.8; O2SAT 93
== END ==
LOC: US 10:20 → MEDOUTP 11:23
PROVIDERS: PCP Family Medicine; Referring Provider Internal Medicine Gastroenterology; Visit Provider Internal Medicine Gastroenterology
DX: K74.60 Unspecified cirrhosis of liver (principal)
CPT/HCPCS: 96365; 49083; P9047; A4216

== ENCOUNTER → 2020-10-31 10:17 | Outpatient (CLI) | payer MEDICARE, SELFPAY ==
[2020-10-24 11:55] VITALS: BMI 70.9
--- NOTE | 2020-10-31 10:19 | US_ITS ---
PROCEDURE: Ultrasound guided paracentesis. DATE OF EXAMINATION: 10/31/2020.. INDICATION: Female, 75 years old. Ascites. PHYSICIAN: Rigo Britt M.D. TECHNIQUE: The risks, benefits, and alternatives to the procedure were explained to the patient. The specific risks of bleeding, infection, and damage to bowel were detailed and accepted. Witnessed informed consent was obtained. The abdomen was ultrasonographically surveyed. An appropriate pocket of fluid was identified at the right lower quadrant. The skin were cleaned and prepped in the usual sterile fashion. Using ultrasound guidance, the peritoneal cavity was accessed with a 5-Hungarian paracentesis needle/catheter system. The trocar was removed. A total of 7000 ml of harsh-colored fluid were removed from the peritoneal cavity. The catheter was removed and a sterile dressing was applied. The procedure was well tolerated. US/Paracentesis with US IMPRESSION: Ultrasound guided paracentesis. Electronically Signed: Rigo Britt MD at 13:15 EDT , Service support ,
[2020-10-31 10:51] VITALS: BP 118/38; BP 80/43; BP 84/39; BP 96/55; PULSE 101; PULSE 90; PULSE 91; PULSE 93; RESP 22; RESP 24; TEMP 36.5; O2SAT 100; O2SAT 95; O2SAT 97
[2020-10-31 11:50] VITALS: BP 84/41; PULSE 88; RESP 16; TEMP 36.5; O2SAT 100
[2020-10-31] MEDS: Albumin Human 25% (50 mL) 12.5 GM/50 ML IV.SOLN IV (12:28)
[2020-10-31 13:10] VITALS: BP 85/44; PULSE 89; RESP 16; O2SAT 99
== END ==
LOC: US 10:18 → MEDOUTP 12:15
PROVIDERS: PCP Family Medicine; Referring Provider Internal Medicine Gastroenterology; Visit Provider Internal Medicine Gastroenterology
DX: K74.60 Unspecified cirrhosis of liver (principal); R18.8 Other ascites
CPT/HCPCS: 96365; 49083; P9047; A4216

== ENCOUNTER 2020-11-04 18:43 | Observation (INO) | payer MEDICARE, SELFPAY ==
[2020-10-24 11:55] VITALS: BMI 70.9
[2020-11-04 18:44] VITALS: BP 130/55; PULSE 104; RESP 22; TEMP 36.7; O2SAT 96; BMI 33.6
[2020-11-04 19:04] VITALS: BP 101/58; PULSE 101; RESP 16; TEMP 36.4; O2SAT 95
--- NOTE | 2020-11-04 19:17 | CT_ITS ---
STUDY: CT ABDOMEN AND PELVIS WITHOUT CONTRAST REASON FOR EXAM: Female, 75 years old. abd pain RADIATION DOSAGE (If Supplied By Facility): CTDIvol = ( 12.29 ) mGy, DLP = ( 1006.35 ) mGycm TECHNIQUE: Transaxial images were obtained from the dome of the diaphragm to the symphysis pubis without oral contrast, and without intravenous contrast. Sagittal and coronal images were reconstructed. Individualized dose optimization techniques were used for this CT. COMPARISON: None. FINDINGS: The visualized lung bases are unremarkable. A significant amount of abdominal and pelvic ascites is present. Small to moderate size umbilical hernia contains fat and ascites. Moderate body wall subcutaneous edema is present. There is a diffuse contour abnormality of the liver consistent with cirrhotic changes. No intrahepatic biliary duct dilatation or liver mass. There are multiple gallstones. Mild splenomegaly noted. Normal pancreas. Normal bilateral adrenal glands. There is severe cortical atrophy of the right kidney, consistent with chronic medical renal disease. There is severe cortical atrophy of the left kidney, consistent with chronic medical renal disease. No hydronephrosis or renal masses. No large stones. The stomach is fluid-filled but not distended or obstructed. A small to moderate size hiatal hernia is present with surrounding ascites. Normal small intestine. There are multiple colonic diverticula consistent with diverticulosis. No bowel dilatation or obstruction. No free air. There is non-visualization of the appendix. There is diffuse atherosclerotic calcification of the abdominal aorta, without a demonstrated aneurysm. Normal inferior vena cava. Normal retroperitoneum. Normal urinary bladder. Normal abdominal wall. There are diffuse degenerative changes of the visualized lumbar spine. CT/Abdomen/Pelvis without Cont IMPRESSION: 1. Significant amount of abdominal and pelvic ascites 2. Cirrhosis and splenomegaly 3. Multiple gallstones 4. Colonic diverticulosis 5. Fluid-filled stomach without distention or obstruction 6. Small to moderate size hiatal hernia. Electronically Signed: Herbert Ortiz MD at 21:22 EDT , Service support ,
[2020-11-04] MEDS: Morphine 4 MG/ML Syringe IV (19:52)
[2020-11-04] MEDS: Ondansetron 4 MG/2 ML Vial IV (19:52)
--- NOTE | 2020-11-04 20:30 | RAD_ITS ---
STUDY: X-RAY - RIGHT FOOT CLINICAL: Female, 75 years old. WOUND/REDNESS RIGHT GREAT TOE. PATIENT IS A DIABETIC AND ON DIALYSIS. TECHNIQUE: 3 view(s) of the foot. COMPARISON: None. FINDINGS: The bony structures are demineralized. Vascular calcifications are present. Multiple hammertoe deformities noted. The MTP joint spaces are mildly narrowed. No visualized cortical erosion or bony destruction. Moderate-sized plantar calcaneal spur noted. Normal talus, calcaneus, and tarsal bones. Normal visualized subtalar, talonavicular, calcaneocuboid, tarsal and tarsometatarsal articulations. Normal metatarsi. The soft tissue structures are unremarkable. RAD/Foot min 3 Views IMPRESSION: Multiple chronic abnormalities Electronically Signed: Herbert Ortiz MD at 20:54 EDT , Service support ,
[2020-11-04 20:49] VITALS: BP 86/46; PULSE 101; RESP 17; TEMP 36.6; O2SAT 98
--- NOTE | 2020-11-04 20:52 | NURSING ---
Lab in room for draw and Dr Vásquez aware of BP reading
[2020-11-04 21:16] LABS: Absolute Lymphocyte Count 0.59 X10^3/uL (0.83-4.51); Absolute Neutrophil Count 2.8 X10^3/uL (2.0-7.7); Basophil# 0.05 X10^3/uL; Basophil% 1.3 % (0-1); Eosinophil# 0.03 X10^3/uL; Eosinophils% 0.8 % (0-5); Hematocrit 31.2 % (37-47); Hemoglobin 9.7 g/dL (12.0-15.0); Lymphocyte # 0.59 X10^3/ul (0.83-4.51); Lymphocyte % 15.1 % (19-41); Mean Corp Hgb Conc 31.1 g/dL (32-36); Mean Corpuscular Hgb 31.8 pg (27.0-32.0); Mean Corpuscular Volume 102.3 fL (81-99); Mean Platelet Vol. 9.6 fl (6.2-12.0); Monocyte# 0.38 X10^3/uL; Monocyte% 9.7 % (0-10); NRBC Flagged by Analyzer 0 % (0-5); Neutrophil # 2.84 X10^3/uL (2.7-7.7); Neutrophil % 72.8 % (47-70); POSITIVE COUNT YES; POSITIVE DIFFERENTIAL YES; POSITIVE MORPHOLOGY YES; Platelet Count 85 K/mm3 (150-450); RBC Distribution Width CV 19.2 % (11.6-14.6); RBC Distribution Width SD 71.2 fl (35.1-43.9); Red Blood Count 3.05 M/mm3 (4.2-5.4); White Blood Count 3.9 K/mm3 (4.4-11.0)
[2020-11-04] MEDS: fentaNYL 100 MCG/2 ML Ampul 50 MCG IV (21:17)
[2020-11-04 21:18] VITALS: BP 84/48; PULSE 96; RESP 15; TEMP 36.6; O2SAT 97
[2020-11-04 21:18] LABS: Differential Indicated SCAN CRITERIA MET
--- NOTE | 2020-11-04 21:25 | NURSING ---
Patient cannot pee still and says she does go but usually only once a day. She will try to go if can and can discuss cath vs waiting for admit with doctor
[2020-11-04] MEDS: Ondansetron 4 MG/2 ML Vial IM (21:29)
[2020-11-04 21:31] LABS: ALB/GLOB Ratio 0.8 RATIO (0.9-2.4); AST(SGOT) 34 U/L (15-37); Alanine Aminotransfer ALT/SGPT 35 U/L (13-56); Albumin, Serum 2.5 g/dL (3.2-5.0); Alkaline Phosphatase 135 U/L (45-117); Anion Gap 7 (5-15); BUN 22 mg/dL (7-18); BUN/Creat Ratio 5.9 RATIO (10-20); Calcium,Total 8.8 mg/dL (8.5-10.1); Chloride 108 mmol/L (98-107); Creatinine, Serum 3.75 mg/dL (0.55-1.02); EST Glomerular Filtration Rate 13 mL/min (>60); Est Glom Filt Rate - Afr Amer 15 mL/min (>60); Estimated Creatinine Clearance 10.41 ml/min; Glucose 131 mg/dL (74-106); Potassium 4.2 mmol/L (3.5-5.1); Protein, Total 5.5 g/dL (6.4-8.2); Sodium Level 139 mmol/L (136-145)
[2020-11-04 21:34] LABS: Differential Comment SCANNED
--- NOTE | 2020-11-04 21:51 | HP.PCM_ITS ---
HPI - General HPI Narrative Anita Manzanares is a 76-year-old female patient who presents to the emergency room following dialysis today with a chief complaint of abdominal pain nausea and vomiting of 1 day. She has a significant past medical history for nonalcoholic steatohepatitis, chronic kidney failure for which she is on dialysis. The patient does have anemia of chronic disease. Despite antiemetic therapy patient continues to be nauseated in the emergency room. She will be admitted for observation to the general medical floor with anticipated discharge when she becomes more hemodynamically stable. [facility] Medical History (Updated 07/19/20 @ 23:17 by Molly John) Ascites Benign essential HTN CKD (chronic kidney disease) stage 4, GFR 15-29 ml/min DM2 (diabetes mellitus, type 2) History of breast cancer Hypothyroid Hypothyroid TIA (transient ischemic attack) Venous insufficiency (chronic) (peripheral) Home Medications pantoprazole 40 mg PO BID 02/01/20 [History Last Taken 07/19/20] calcitriol 0.5 mcg PO MOWEFR 04/12/20 [History Last Taken 07/19/20] levothyroxine 100 mcg PO DAILY 06/03/20 [History Last Taken 07/19/20] insulin asp prt-insulin aspart [Novolog Mix 70-30 U-100 Insuln] 26 units SQ SUTUTHSA 07/19/20 [History Last Taken 07/18/20] insulin glargine 26 unit SC MOWEFR 07/19/20 [History Last Taken 07/19/20] lorazepam 0.5 mg PO DAILY PRN PRN 07/19/20 [History Last Taken Unknown] sevelamer carbonate 800 mg PO TID 07/19/20 [History Last Taken 07/19/20] atorvastatin 40 mg PO QHS #30 tab 07/21/20 [Rx Last Taken Unknown] ondansetron HCl 4 mg PO Q8H PRN #20 tab 07/21/20 [Rx Last Taken Unknown] Allergy/AdvReac Type Severity Reaction Status Date / Time clarithromycin [From Biaxin] Allergy Unknown Verified 11/04/20 18:50 iodine Allergy Unknown Verified 11/04/20 18:50 melatonin AdvReac Intermediate OTHER Verified 11/04/20 18:50 Family History (Reviewed 07/19/20 @ 18:09 by Brianda Soriano PREDATORY ANIMAL EXTERMINATOR, PREDATORY ANIMAL EXTERMINATOR-C) Father CHF (congestive heart failure) Heart disease Mother CVA (cerebral vascular accident) Surgical History History of appendectomy History of cataract extraction History of colonoscopy History of extraction of renal calculus History of right mastectomy history port insertion Social History (Updated 05/07/20 @ 11:[address] Prem Barnes MD) Smoking Status: Never smoker ROS Constitutional Constitutional: Reports fatigue, malaise and weakness Eyes Eyes: Denies change in vision ENT HEENT: Denies abnormal hearing Cardiovascular Cardiovascular: Denies chest pain Respiratory/Chest Respiratory/Chest: Denies shortness of breath at rest Gastrointestinal Gastrointestinal: Reports abdominal pain, nausea and vomiting Genitourinary Genitourinary: Denies dysuria Musculoskeletal Musculoskeletal: Denies back pain Neurologic Neurologic: Denies confusion Psychiatric Psychiatric: Reports anxiety Vital Signs Vital Signs Vital Signs: 11/04/20 18:44 11/04/20 19:04 11/04/20 20:49 Temperature 98.0 F 97.6 F L 97.8 F Temperature Source Oral Temporal Oral Pulse Rate 104 H 101 H 101 H Respiratory Rate 22 H 16 17 Blood Pressure 130/55 H 101/58 L 86/46 L Blood Pressure Mean 80 72 59 Pulse Ox 96 95 98 Oxygen Delivery Method Room Air Room Air Room Air 11/04/20 21:18 Temperature 97.9 F Temperature Source Temporal Pulse Rate 96 Respiratory Rate 15 Blood Pressure 84/48 L Blood Pressure Mean 60 Pulse Ox 97 Oxygen Delivery Method Room Air Physical Exam Const oriented x3 General Appearance: cooperative HEENT head/scalp atraumatic Eyes PERRL Neck supple Lymph Lymphatic: no lymphadenopathy noted Resp normal respiratory effort and clear to auscultation bilaterally Cardio regular rate, regular rhythm, S1 normal heart sound and S2 normal heart sound GI non-tender Inspection: abdominal distention Extremity Extremity Narrative: paranychia first toe right foot Skin Skin Narrative: as above Neuro Neuro Narrative: neuro grossly intact Psych thought process normal and affect normal Lab / Micro Data Result Diagrams: 11/04/20 20:59 11/04/20 20:59 Labs: Laboratory Results - last 24 hr 11/04/20 11/04/20 20:59 20:59 WBC 3.9 L RBC 3.05 L Hgb 9.7 L Hct 31.2 L MCV 102.3 H MCH 31.8 MCHC 31.1 L RDW Std Deviation 71.2 H RDW Coeff of Mary Alice 19.2 H Plt Count 85 L MPV 9.6 Immature Gran % (Auto) 0.300 Neut % (Auto) 72.8 H Lymph % (Auto) 15.1 L Boundary % (Auto) 9.7 Eos % (Auto) 0.8 Baso % (Auto) 1.3 H Absolute Neuts (auto) 2.8 Absolute Lymphs (auto) 0.59 L Nucleated RBC % 0 Differential Comment SCANNED Diff Path Review October Sodium 139 Potassium 4.2 Chloride 108 H Carbon Dioxide 24.0 Anion Gap 7 BUN 22 H Creatinine 3.75 H Estim Creat Clear Calc 10.41 Est GFR (MDRD) Af Amer 15 L Est GFR (MDRD) Non-Af 13 L BUN/Creatinine Ratio 5.9 L Glucose 131 H Calcium 8.8 Total Bilirubin 1.40 H AST 34 ALT 35 Alkaline Phosphatase 135 H Total Protein 5.5 L Albumin 2.5 L Globulin 3.0 Albumin/Globulin Ratio 0.8 L Radiology Impression Abdomen/Pelvis CT 11/04/20 19:17 IMPRESSION: 1. Significant amount of abdominal and pelvic ascites 2. Cirrhosis and splenomegaly 3. Multiple gallstones 4. Colonic diverticulosis 5. Fluid-filled stomach without distention or obstruction 6. Small to moderate size hiatal hernia. 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 Abdominal pain with nausea and vomiting secondary to dialysis earlier today and GUEVARA. Admit patient to general medical floor, continue antiemetic therapy along with gentle IV hydration due to chronic kidney disease. Consider paracentesis if blood pressure improves. Repeat CBC CMP in the morning 2. Diabetes?patient will continue to be eating less than usual due to her nausea therefore consider n.p.o. for medications and cover with sliding scale insulin 3. Chronic kidney disease end-stage renal failure on dialysis?patient received her dialysis today therefore will not be due for another 2 days 4. DVT prophylaxis?SCDs due to thrombocytopenia 5. Hypothyroidism?continue oral thyroid medication if tolerating oral in the morning. Visit Charges OBSV E&M: [id number] Initial observation care L2
[2020-11-04 22:27] VITALS: BP 88/51; PULSE 99; RESP 14; RESP 15; TEMP 36.8; TEMP 36.9; O2SAT 95
--- NOTE | 2020-11-04 22:35 | EDS_ITS ---
HPI History of Present Illness Chief Complaint: Abd Pain Informant: patient Narrative Narrative: 75-year-old female presenting with abdominal pain and distention. Patient states she has a paracentesis weekly on . She had this performed on but started feeling bloated again over the weekend. She completed dialysis today. She states her blood pressure typically is low in the 80s at baseline. She has had nausea and vomiting. She denies fever. Denies chest pain or shortness of breath. Prior similar symptoms: Yes PFSH [facility] Medical History (Updated 11/04/20 @ 22:[address] Lisa Vásquez MD) Ascites Benign essential HTN CKD (chronic kidney disease) stage 4, GFR 15-29 ml/min DM2 (diabetes mellitus, type 2) History of breast cancer Hypothyroid Hypothyroid TIA (transient ischemic attack) Venous insufficiency (chronic) (peripheral) Home Medications pantoprazole 40 mg PO BID 02/01/20 [History Last Taken 07/19/20] calcitriol 0.5 mcg PO MOWEFR 04/12/20 [History Last Taken 07/19/20] levothyroxine 100 mcg PO DAILY 06/03/20 [History Last Taken 07/19/20] insulin asp prt-insulin aspart [Novolog Mix 70-30 U-100 Insuln] 26 units SQ SUTUTHSA 07/19/20 [History Last Taken 07/18/20] insulin glargine 26 unit SC MOWEFR 07/19/20 [History Last Taken 07/19/20] lorazepam 0.5 mg PO DAILY PRN PRN 07/19/20 [History Last Taken Unknown] sevelamer carbonate 800 mg PO TID 07/19/20 [History Last Taken 07/19/20] atorvastatin 40 mg PO QHS #30 tab 07/21/20 [Rx Last Taken Unknown] ondansetron HCl 4 mg PO Q8H PRN #20 tab 07/21/20 [Rx Last Taken Unknown] Allergy/AdvReac Type Severity Reaction Status Date / Time clarithromycin [From Biaxin] Allergy Unknown Verified 11/04/20 18:50 iodine Allergy Unknown Verified 11/04/20 18:50 melatonin AdvReac Intermediate OTHER Verified 11/04/20 18:50 Family History Father CHF (congestive heart failure) Heart disease Mother CVA (cerebral vascular accident) Surgical History History of appendectomy History of cataract extraction History of colonoscopy History of extraction of renal calculus History of right mastectomy history port insertion Social History (Updated 05/07/20 @ 11:[address] Prem Barnes MD) Smoking Status: Never smoker ROS ROS ED Constitutional Constitutional ED: Denies fever(s) Eyes Eyes: Denies change in vision ENT ENT ED: Denies rhinorrhea or sore throat Cardiovascular Cardiovascular: Denies chest pain or palpitations Respiratory/Chest Respiratory/Chest: Denies cough or dyspnea Gastrointestinal Gastrointestinal: Reports abdominal pain, nausea and vomiting; Denies diarrhea Genitourinary Genitourinary ED: Denies dysuria Musculoskeletal Musculoskeletal: Denies myalgias Integumentary Denies rash Neurologic Neurologic: Denies headache(s) Psychiatric Psychiatric: Denies suicidal thoughts EXAM Physical Exam Const Vital Signs: 11/04/20 18:44 11/04/20 19:04 11/04/20 20:49 Temperature 98.0 F 97.6 F L 97.8 F Temperature Source Oral Temporal Oral Pulse Rate 104 H 101 H 101 H Respiratory Rate 22 H 16 17 Blood Pressure 130/55 H 101/58 L 86/46 L Blood Pressure Mean 80 72 59 Pulse Ox 96 95 98 Oxygen Delivery Method Room Air Room Air Room Air 11/04/20 21:18 11/04/20 22:27 Temperature 97.9 F 98.5 F Temperature Source Temporal Oral Pulse Rate 96 99 Respiratory Rate 15 15 Blood Pressure 84/48 L 88/51 L Blood Pressure Mean 60 63 Pulse Ox 97 95 Oxygen Delivery Method Room Air Room Air Positive well nourished and well developed General Appearance ED: well developed HEENT Reports normocephalic and head/scalp atraumatic Eyes PERRL and EOMs intact bilaterally Neck supple General: Negative for tenderness Chest Wall inspection of chest normal Resp normal respiratory effort and clear to auscultation bilaterally Cardio regular rate and regular rhythm GI Inspection: abdominal distention Palpation: soft and tender other (Diffuse, reducible hernia) no CVA tenderness Extremity Extremity Narrative: Right great toe wound with surrounding erythema Neuro oriented x3 Sensorium / Orientation: alert Psych mental status grossly normal MDM MDM MDM Narrative Medical decision making narrative: Patient was given morphine, Zofran. Lab work was reviewed. CT abdomen shows significant amount of abdominal and pelvic ascites. Cirrhosis and splenomegaly. Patient feels she is in need of another paracentesis. She continues to have nausea and was given additional dose of Zofran. She was given vancomycin for her right great toe wound. Discussed with hospitalist for admission. Lab Data Attestation: I reviewed the patient's lab results. Labs: Laboratory Results - last 24 hr 11/04/20 11/04/20 20:59 20:59 WBC 3.9 L RBC 3.05 L Hgb 9.7 L Hct 31.2 L MCV 102.3 H MCH 31.8 MCHC 31.1 L RDW Std Deviation 71.2 H RDW Coeff of Mary Alice 19.2 H Plt Count 85 L MPV 9.6 Immature Gran % (Auto) 0.300 Neut % (Auto) 72.8 H Lymph % (Auto) 15.1 L [place] % (Auto) 9.7 Eos % (Auto) 0.8 Baso % (Auto) 1.3 H Absolute Neuts (auto) 2.8 Absolute Lymphs (auto) 0.59 L Nucleated RBC % 0 Differential Comment SCANNED Diff Path Review May foll Sodium 139 Potassium 4.2 Chloride 108 H Carbon Dioxide 24.0 Anion Gap 7 BUN 22 H Creatinine 3.75 H Estim Creat Clear Calc 10.41 Est GFR (MDRD) Af Amer 15 L Est GFR (MDRD) Non-Af 13 L BUN/Creatinine Ratio 5.9 L Glucose 131 H Calcium 8.8 Total Bilirubin 1.40 H AST 34 ALT 35 Alkaline Phosphatase 135 H Total Protein 5.5 L Albumin 2.5 L Globulin 3.0 Albumin/Globulin Ratio 0.8 L Radiography Diagnostic Testing: Radiology Impression Abdomen/Pelvis CT 11/04/20 19:17 IMPRESSION: 1. Significant amount of abdominal and pelvic ascites 2. Cirrhosis and splenomegaly 3. Multiple gallstones 4. Colonic diverticulosis 5. Fluid-filled stomach without distention or obstruction 6. Small to moderate size hiatal hernia. Electronically Signed: Herbert Ortiz MD at 21:22 EDT , Service support , Foot X-Ray 11/04/20 20:30 IMPRESSION: Multiple chronic abnormalities Electronically Signed: Herbert Ortiz MD at 20:54 EDT , Service support , Discharge Plan Dx/Rx/DC Orders Clinical Impression: Abdominal ascites, Diabetic infection of right foot Disposition Disposition: Acute Care Hospital [facility] [place] [facility]
[2020-11-04 23:11] VITALS: BP 90/49; PULSE 70; RESP 16; TEMP 36.7; O2SAT 98
[2020-11-05] VITALS (9 sets, daily range): BP systolic 83–112; BP diastolic 45–52; PULSE 85–103; RESP 16–18; TEMP 36.7–37.1; O2SAT 93–98; BMI 32.8
--- NOTE | 2020-11-05 | FLU_PTH ---
PATIENT: JENNA MCCALLUM LOC: MS3 U#:[id number] AGE/SX: 75/F ROOM: DE312 RE11/04/[address]: Dr. Jose Corbin MD : 1945 BED: 1 DIS: 11/12/2020 SPEC #: [id number] RECD: 11/05/20 16:16 STATUS: CYNTHIA CERVANTES #: [id number] BOGDAN: 11/05/20 00:[address]: Bryon Scott DEPT: CYTOLOGY RECD BY: Rhonda Villatoro ENTERED: 11/06/20 09:37 SP TYPE: Fluid OTHR DR: MD Dr. Nicola Kang MD Tissues: PARACENTESIS FLUID Procedures: Special Stain Group II Surgery Specimen Level IV Cytospin Fluid HEADER OPERATION: Paracentesis PRE-OP DIAGNOSIS: Ascites, abdominal pain, nausea, vomiting TISSUE SUBMITTED: Paracentesis fluid for cytology DIAGNOSIS CYTOLOGY Paracentesis fluid for cytology (cytospin and cell block): Negative for malignant cells. See comment. TAMELA:ivy 11/07/2020 COMMENT Clinical correlation and appropriate follow up are necessary. CYTOLOGY STUDY Slides are reviewed. CYTOLOGY GROSS Received is 100 ml of yellow hazy fluid labeled with the patient's name and and designated per the requisition as paracentesis. Submitted for cytology preparation including cell block. / ivy 11/06/2020 TC:5 CPT: 11459, 46171
[2020-11-05] MEDS: 0.9% Normal Saline 1,000 ML 75 ML IV (01:11)
[2020-11-05] MEDS: HYDROmorphone 0.5 MG/0.5 ML SYRINGE IV (01:12)
[2020-11-05] MEDS: Ondansetron 4 MG/2 ML Vial IV (01:12)
[2020-11-05] MEDS: Levothyroxine 100 MCG Tablet PO (06:18)
[2020-11-05 06:35] LABS: Bedside Glucose 123 mg/dL (70-110)
[2020-11-05 06:58] LABS: Absolute Lymphocyte Count 0.49 X10^3/uL (0.83-4.51); Absolute Neutrophil Count 2.8 X10^3/uL (2.0-7.7); Basophil# 0.02 X10^3/uL; Basophil% 0.5 % (0-1); Eosinophil# 0.02 X10^3/uL; Eosinophils% 0.5 % (0-5); Hematocrit 31.8 % (37-47); Hemoglobin 9.8 g/dL (12.0-15.0); Lymphocyte # 0.49 X10^3/ul (0.83-4.51); Lymphocyte % 13.2 % (19-41); Mean Corp Hgb Conc 30.8 g/dL (32-36); Mean Corpuscular Hgb 31.8 pg (27.0-32.0); Mean Corpuscular Volume 103.2 fL (81-99); Mean Platelet Vol. 9.1 fl (6.2-12.0); Monocyte# 0.35 X10^3/uL; Monocyte% 9.4 % (0-10); NRBC Flagged by Analyzer 0 % (0-5); Neutrophil # 2.83 X10^3/uL (2.7-7.7); Neutrophil % 76.1 % (47-70); POSITIVE COUNT YES; POSITIVE DIFFERENTIAL YES; POSITIVE MORPHOLOGY YES; Platelet Count 70 K/mm3 (150-450); RBC Distribution Width CV 19.8 % (11.6-14.6); RBC Distribution Width SD 74.8 fl (35.1-43.9); Red Blood Count 3.08 M/mm3 (4.2-5.4); White Blood Count 3.7 K/mm3 (4.4-11.0)
[2020-11-05 06:59] LABS: Differential Indicated SCAN CRITERIA MET
[2020-11-05 07:32] LABS: ALB/GLOB Ratio 0.8 RATIO (0.9-2.4); AST(SGOT) 31 U/L (15-37); Alanine Aminotransfer ALT/SGPT 33 U/L (13-56); Albumin, Serum 2.4 g/dL (3.2-5.0); Alkaline Phosphatase 132 U/L (45-117); Anion Gap 7 (5-15); BUN 26 mg/dL (7-18); BUN/Creat Ratio 6.5 RATIO (10-20); Calcium,Total 8.6 mg/dL (8.5-10.1); Chloride 107 mmol/L (98-107); Creatinine, Serum 4.01 mg/dL (0.55-1.02); EST Glomerular Filtration Rate 12 mL/min (>60); Est Glom Filt Rate - Afr Amer 14 mL/min (>60); Estimated Creatinine Clearance 9.73 ml/min; Globulin 2.9 g/dL (2.2-4.2); Glucose 119 mg/dL (74-106); Potassium 4.4 mmol/L (3.5-5.1); Protein, Total 5.3 g/dL (6.4-8.2); Sodium Level 139 mmol/L (136-145)
--- NOTE | 2020-11-05 08:25 | NURSING ---
wound photo: right great toe
--- NOTE | 2020-11-05 09:05 | PN.HOSP_ITS ---
Subjective Subjective The patient was admitted yesterday with nausea, abdominal distention and discomfort. She gets paracentesis by Dr. Ren every week due to Guevara associated decompensated cirrhosis. 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 Objective Data Objective Data Vital Signs: Vital Signs Temp Pulse Resp BP Pulse Ox 98.8 F 98 18 83/50 L 93 11/05/20 08:10 11/05/20 08:10 11/05/20 08:10 11/05/20 08:10 11/05/20 08:10 Oxygen Delivery Method Room Air Weight: 179 lb 14.355 oz Body Mass Index (BMI) 32.8 Intake & Output: Intake and Output for Last 24 Hours 11/03/20 11/04/20 11/05/20 23:59 23:59 23:59 Intake Total 475 / 475 Balance 475 / 475 Lab / Micro Data Result Diagrams: 11/05/20 05:55 11/05/20 05:55 Labs: Laboratory Results - last 24 hr 11/04/20 11/04/20 11/05/20 20:59 20:59 05:55 WBC 3.9 L 3.7 L RBC 3.05 L 3.08 L Hgb 9.7 L 9.8 L Hct 31.2 L 31.8 L MCV 102.3 H 103.2 H MCH 31.8 31.8 MCHC 31.1 L 30.8 L RDW Std Deviation 71.2 H 74.8 H RDW Coeff of Mary Alice 19.2 H 19.8 H Plt Count 85 L 70 L MPV 9.6 9.1 Immature Gran % (Auto) 0.300 0.300 Neut % (Auto) 72.8 H 76.1 H Lymph % (Auto) 15.1 L 13.2 L [place] % (Auto) 9.7 9.4 Eos % (Auto) 0.8 0.5 Baso % (Auto) 1.3 H 0.5 Absolute Neuts (auto) 2.8 2.8 Absolute Lymphs (auto) 0.59 L 0.49 L Nucleated RBC % 0 0 Differential Comment SCANNED Diff Path Review October foll May foll Sodium 139 Potassium 4.2 Chloride 108 H Carbon Dioxide 24.0 Anion Gap 7 BUN 22 H Creatinine 3.75 H Estim Creat Clear Calc 10.41 Est GFR (MDRD) Af Amer 15 L Est GFR (MDRD) Non-Af 13 L BUN/Creatinine Ratio 5.9 L Glucose 131 H Calcium 8.8 Total Bilirubin 1.40 H AST 34 ALT 35 Alkaline Phosphatase 135 H Total Protein 5.5 L Albumin 2.5 L Globulin 3.0 Albumin/Globulin Ratio 0.8 L POC Glucose 11/05/20 11/05/20 05:55 06:25 WBC RBC Hgb Hct MCV MCH MCHC RDW Std Deviation RDW Coeff of Mary Alice Plt Count MPV Immature Gran % (Auto) Neut % (Auto) Lymph % (Auto) [place] % (Auto) Eos % (Auto) Baso % (Auto) Absolute Neuts (auto) Absolute Lymphs (auto) Nucleated RBC % Differential Comment Diff Path Review Sodium 139 Potassium 4.4 Chloride 107 Carbon Dioxide 25.0 Anion Gap 7 BUN 26 H Creatinine 4.01 H Estim Creat Clear Calc 9.73 Est GFR (MDRD) Af Amer 14 L Est GFR (MDRD) Non-Af 12 L BUN/Creatinine Ratio 6.5 L Glucose 119 H Calcium 8.6 Total Bilirubin 1.20 H AST 31 ALT 33 Alkaline Phosphatase 132 H Total Protein 5.3 L Albumin 2.4 L Globulin 2.9 Albumin/Globulin Ratio 0.8 L POC Glucose 123 H Radiography Diagnostic Testing: Radiology Impression Abdomen/Pelvis CT 11/04/20 19:17 IMPRESSION: 1. Significant amount of abdominal and pelvic ascites 2. Cirrhosis and splenomegaly 3. Multiple gallstones 4. Colonic diverticulosis 5. Fluid-filled stomach without distention or obstruction 6. Small to moderate size hiatal hernia. Electronically Signed: Herbert Ortiz MD at 21:22 EDT , Service support , Foot X-Ray 11/04/20 20:30 IMPRESSION: Multiple chronic abnormalities Electronically Signed: Herbert Ortiz MD at 20:54 EDT , Service support , Physical Exam Narrative General: Alert, Oriented x3, Cooperative HEENT: Atraumatic, PERRLA, EOMI, Normocephalic Oral: No Gingival or Mucosal Lesions/ Ulcerations Neck: Supple, No JVD, Negative Carotid Bruits. Mediport on right subclavian region Lungs: Air entry diminished in bilateral lung bases. No crepitation/rhonchi Cardiovascular: Regular rate, Regular Rhythm, Normal S1, Normal S2, No murmurs Abdomen: Massive ascites. Bowel sounds sluggish. Nontender. Soft. Umbilical hernia reducible. : On hemodialysis no renal angle tenderness. No suprapubic tenderness. Extremities: Bilateral lower extremity, indurated edema, Capillary Refill Less than 3 Seconds Skin: Small scab ulcer on the right great toe nail, lateralized Musculoskeletal: No Tenderness to Palpation of Joints or Extremities Neurological: Cranial nerves II-XII grossly intact, Deep Tendon Reflexes 2+/4 and Symmetrical, Neuro grossly intact Psych/Mental Status: Normal Affect, Appropriate. 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 She is on weekly paracentesis secondary to Guevara towards decompensated cirrhosis last 1 on 10/31.. Assessment and plan 1. Abdominal pain with nausea and vomiting due to ascites from decompensated Guevara liver cirrhosis, rule out SBP: [facility] Discussed with the radiologist for ultrasound-guided paracentesis and fluid analysis test which were ordered. Labs ordered for fluid chemistry, cell count, culture. Patient has hypotension from vasodilation, cirrhosis. On midodrine. Abdominal pain has resolved. Pancytopenia related from decompensated cirrhosis 2. Diabetes mellitus type II?patient initially n.p.o. but had breakfast. On sliding scale insulin. Glucose 119 3. End-stage renal failure on dialysis, secondary hyperparathyroidism?patient received her dialysis; on day of admission. Brick Veneer Maker consulted. 4. DVT prophylaxis?SCDs due to thrombocytopenia 5. Hypothyroidism?continue oral thyroid medication if tolerating oral in the morning. 6. Pancytopenia related to decompensated cirrhosis 7. Other comorbidities include hypertension, history of breast cancer in remission, chronic venous insufficiency and bilateral lymphedema: Multiple comorbidities complicates the present care and expect difficult and delay recovery Total time of the visit including total time spent in counseling or coordination of care, (more than 50% of the total time, spent in obtaining medical information from nurses and other ancillary care providers,explaining to the patient about labs, imaging, diagnosis and management), discussion with radiologist, racing car driver, review of labs and imaging is 30 minutes. Living will/advanced directive/end of life care: Patient does have living will or advanced directive. Her power of assistant district attorney for health is nephew and niece. After discussion of benefits/risks procedures involved with full code, DNR CC arrest and DNR CC, the patient opted for DNR-CC Arrest with no intubation Patient does not want artificial life support including intubation, tube feed, ventilator and/chest compression, central venous catheter, vasopressor and DC shock if needed Total time spent in [id number] encounter in discussion of advanced directive 16 minutes. Visit Charges Inpatient E&M: 20531 Subs Hosp L3 Procedures Hospitalists Procedures: 90456 Advncd Care Plan 30 Min
--- NOTE | 2020-11-05 09:07 | US_ITS ---
PROCEDURE: ULTRASOUND GUIDED PARACENTESIS CLINICAL HISTORY: Female, 75 years old. GUEVARA associated cirrhosis with ascites CONSENT: Informed consent obtained Time-Out Called: Yes. Consent form signed: Yes. PT-PTT Levels Checked: Yes. SEDATION: Local sedation with 2% XYLOCAINE TECHNIQUE: Sonographically guided FINDINGS: FLUID PRE-PROCEDURE There is posterior enhancement. The findings appear anechoic. There is no loculation. FLUID POST-PROCEDURE Amount of fluid drained: 4750 ml. An area for large volume paracentesis was determined using sonographic guidance. The area was prepped and draped in a sterile manner, and 2% XYLOCAINE was used as local anesthetic. Using sterile technique including wearing gloves, a 15-gauge Hao drainage catheter was advanced into the peritoneal cavity, and straw-colored serous return was noted. After 4750 mL of fluid was withdrawn, the catheter was removed. Patient tolerated the procedure well with no immediate complications and was returned to her room in stable condition US/Paracentesis with US IMPRESSION: Sonographically guided large volume paracentesis Electronically Signed: Ish Alcocer MD at 7:43 EDT , Service support ,
[2020-11-05 10:04] LABS: Pathologist Review Reviewed
[2020-11-05 10:05] LABS: Pathologist Review Reviewed
[2020-11-05] MEDS: Midodrine HCl 5 MG Tablet 10 MG PO ×3 (10:13→22:13)
[2020-11-05] MEDS: Menthol/Lanolin/Calamine/Znox 113 GM Tube 1 APPLIC TOPICAL ×2 (10:13→22:11)
[2020-11-05] MEDS: Pantoprazole Sodium 40 MG Tablet PO ×2 (10:13→22:14)
[2020-11-05] MEDS: hydrOXYzine PAM 25 MG Capsule PO (11:42)
[2020-11-05] MEDS: SEVELAMER CARBONATE 800 MG TABLET PO ×2 (11:42→17:23)
[2020-11-05 11:46] LABS: Bedside Glucose 137 mg/dL (70-110)
--- NOTE | 2020-11-05 13:06 | NURSING ---
Addendum entered and electronically signed by Thelma Molina 11/05/20 13:24: Patient is current with [facility]. RAYSHAWN Castellano Original Note: RN CM Assessment Introduced role of RN CM to patient. Patient is alert, oriented and able to participate in RN CM Assessment. Care providers, pharmacy, and demographics verified. Admit Dx: Abd Pain, N/V Re-Admit: No Barriers/Issues: None. Has a great family support with nieces and nephews as well as friends. One nephew lives approx 5min from patient. They take patient to HD and have a schedule. HD Ctr: [facility], Days: M//, Chair start time: 10:30. Received paracentesis every . PCP: Nicola Bay Specialists: Hepat- Mino, EndoDamien Barnes, Nephro- Skip Preferred Pharmacy: [facility] Insurance: [employer] [facility] Rx Benefit: Yes LNOK: Nephew Miko Castro, Niece Shanthi aM LW/HPOA: States has both and they should be on file. HPOA- nephew Miko Castro and niece. Living Arrangements: ADL?s: Ambulates with a 2WW, Niece assists with shower, nieces and nephews assist with meals/grocery shopping. Otherwise patiet independent with other ADLs Transportation:Nieces, Nephews, Friends DME: Shower Chair, FWW, RTS, Glucometer HHC: Past, cannot recall agency. SNF: None Goal: Home and does not think will have any needs. Denies any issues, questions, concerns with DC planning at this time. Aware RNCM will remain available should any changes in conditions arise. DC PLAN: Home with no anticipated needs identified at this time. Patient plan to get Paracentesis today, HD tomorrow. RAYSHAWN Castellano
--- NOTE | 2020-11-05 13:16 | NURSING ---
RNCM CASTELLANOS Note: This chief writer went to patient bedside and introduced self and role. Explained and reviewed CASTELLANOS form with patient in regards to current treatment this hospital stay. Informed that billing is determined by her insurance company and continual review is conducted to determine any changes in condition that may warrant inpatient stay. Patient acknowledged and denies any questions with CASTELLANOS form. CASTELLANOS form signed by patient and placed in patient hard chart, patient was provided a copy. RAYSHAWN Castellano
[2020-11-05] MEDS: 0.9% Saline Lock 10 ML Syringe IV (14:55)
[2020-11-05 16:18] LABS: Cytology, Body Fluid / CSF SEE PATHOLOGY REPORT
[2020-11-05 17:03] LABS: Body Fluid Mononuclear WBC # 0.006 10^3/uL; Body Fluid Mononuclear WBC % 85.7 %; Body Fluid Polynuclear WBC # 0.001 10^3/uL; Body Fluid Polynuclear WBC % 14.3 %; Body Fluid Total Cells Counted 0.012 10^3/ul; White Blood Count/Body Fluid 0.007 10^3/uL
[2020-11-05 17:13] LABS: Glucose, Body Fluid 148 mg/dL (40-70); Protein, Body Fluid 0.7 g/dL (Not Establ.)
[2020-11-05] MEDS: Lidocaine 2% (20 ml mdv) 20 ML Vial (17:18)
[2020-11-05 18:43] LABS: Lymphocytes 12 %; Macrophages 49 %; Mesothelial Cells 33 %; Monocytes 5 %; Neutrophil (Segs) 1 %
[2020-11-05 18:44] LABS: Auto B Fluid Analyzer BKGD Ct COUNTS W/IN LIMITS (W/IN LIMITS)
[2020-11-05 18:45] LABS: Appearance/Body Fluid CLEAR; Body Fluid QC Type(s) BF5Q; Color/Body Fluid YELLOW; Red Cell Count/Body Fluid 3 /mm3; Source- Body Fluid PERITONEAL FLUID
[2020-11-05] MEDS: Atorvastatin Calcium 40 MG Tablet PO (22:13)
[2020-11-05] MEDS: traZODone 100 MG Tablet PO (22:14)
[2020-11-06 00:06] LABS: Bedside Glucose 143 mg/dL (70-110)
[2020-11-06 01:31] VITALS: BP 83/51; PULSE 88; RESP 16; TEMP 36.6; O2SAT 98
[2020-11-06] MEDS: 0.9% Saline Lock 10 ML Syringe IV ×2 (01:33→06:06)
[2020-11-06 05:56] LABS: Absolute Lymphocyte Count 0.48 X10^3/uL (0.83-4.51); Absolute Neutrophil Count 1.7 X10^3/uL (2.0-7.7); Basophil# 0.01 X10^3/uL; Basophil% 0.4 % (0-1); Eosinophil# 0.03 X10^3/uL; Eosinophils% 1.2 % (0-5); Hematocrit 29.6 % (37-47); Hemoglobin 9.1 g/dL (12.0-15.0); Lymphocyte # 0.48 X10^3/ul (0.83-4.51); Lymphocyte % 19.8 % (19-41); Mean Corp Hgb Conc 30.7 g/dL (32-36); Mean Corpuscular Hgb 32.4 pg (27.0-32.0); Mean Corpuscular Volume 105.3 fL (81-99); Mean Platelet Vol. 10.5 fl (6.2-12.0); Monocyte# 0.23 X10^3/uL; Monocyte% 9.5 % (0-10); NRBC Flagged by Analyzer 0 % (0-5); Neutrophil # 1.68 X10^3/uL (2.7-7.7); Neutrophil % 69.1 % (47-70); POSITIVE COUNT YES; POSITIVE DIFFERENTIAL YES; POSITIVE MORPHOLOGY YES; RBC Distribution Width CV 19.3 % (11.6-14.6); RBC Distribution Width SD 75.6 fl (35.1-43.9); Red Blood Count 2.81 M/mm3 (4.2-5.4); White Blood Count 2.4 K/mm3 (4.4-11.0)
[2020-11-06 06:00] LABS: Differential Indicated SCAN CRITERIA MET; Platelet Count 50 K/mm3 (150-450)
[2020-11-06 06:01] VITALS: BP 88/41; PULSE 82; RESP 16; TEMP 36.5; O2SAT 96
[2020-11-06 06:27] LABS: Platelet Estimate MKD DEC (ADEQ)
[2020-11-06 06:35] LABS: ALB/GLOB Ratio 0.7 RATIO (0.9-2.4); AST(SGOT) 28 U/L (15-37); Alanine Aminotransfer ALT/SGPT 25 U/L (13-56); Albumin, Serum 1.8 g/dL (3.2-5.0); Alkaline Phosphatase 108 U/L (45-117); Anion Gap 7 (5-15); BUN 34 mg/dL (7-18); BUN/Creat Ratio 7.1 RATIO (10-20); Calcium,Total 8.8 mg/dL (8.5-10.1); Chloride 110 mmol/L (98-107); Creatinine, Serum 4.76 mg/dL (0.55-1.02); EST Glomerular Filtration Rate 10 mL/min (>60); Est Glom Filt Rate - Afr Amer 12 mL/min (>60); Globulin 2.7 g/dL (2.2-4.2); Glucose 116 mg/dL (74-106); Potassium 4.5 mmol/L (3.5-5.1); Protein, Total 4.5 g/dL (6.4-8.2); Sodium Level 138 mmol/L (136-145)
[2020-11-06] MEDS: Levothyroxine 100 MCG Tablet PO (07:28)
[2020-11-06 07:51] VITALS: O2SAT 95
[2020-11-06] MEDS: Calcitriol 0.25 MCG Capsule 0.5 MCG PO (08:47)
[2020-11-06] MEDS: SEVELAMER CARBONATE 800 MG TABLET PO ×3 (08:47→18:49)
[2020-11-06] MEDS: Midodrine HCl 5 MG Tablet 10 MG PO ×3 (08:48→21:21)
[2020-11-06] MEDS: Pantoprazole Sodium 40 MG Tablet PO ×2 (08:48→21:21)
--- NOTE | 2020-11-06 09:07 | ECHOD_ITS ---
Reason For Study: Cirrhosis w anasarca, Loud Procedure This was a 2D Doppler, Color Flow transthoracic echocardiogram. Exam performed portable in patient room. Left Ventricle Normal LV size. Sigmoid septum. Left ventricular systolic function is normal. The estimated ejection fraction is 65 %. Stage 1 diastolic dysfunction. No regional wall motion abnormalities noted. Right Ventricle Normal RV size. Normal systolic function. Atria The left atrium is moderately enlarged. Normal right atrium. Mitral Valve There is mild mitral annular calcification. Mild (1+) eccentric mitral valve insufficiency. Tricuspid Valve Normal tricuspid valve. Mild to moderate (1-2+) tricuspid valve insufficiency. Pulmonary artery systolic pressure is 39 mmHg. Aortic Valve Trisinus/trileaflet aortic valve. Moderate focal aortic valve calcification. Peak aortic valve gradient 97 mmHg. Mean aortic valve gradient 57 mmHg. Mild (1+) aortic valve insufficiency. Pericardium/Pleural No pericardial effusion. MMode/2D Measurements & Calculations LVIDd: 2.6 cm IVSd: 1.8 cm LVOT diam: 2.0 cm LVIDs: 1.5 cm LVPWd: 1.1 cm LVOT area: 3.1 cm2 RVDd: 3.1 cm FS: 42.7 % Ao root diam: 3.1 cm LAV(MOD-bp): 64.7 ml LA A4 area: 25.1 cm2 LAV(MOD-bp) Indexed: 35.4 ml/m2 LAV(MOD-sp2): 42.9 ml LAV(MOD-sp4): 81.0 ml LA dimension(2D): 4.9 cm RA A4 area: 10.6 cm2 Time Measurements MV dec time: 0.22 sec Doppler Measurements & Calculations MV E max john: 122.9 cm/sec Lat Peak E' John: 5.9 cm/sec Med Peak E' John: 4.2 cm/sec MV A max john: 193.0 cm/sec E/E' lat: 20.9 E/E' med: 29.3 MV E/A: 0.64 MV V2 max: 207.9 cm/sec MV P1/2t max john: 137.2 cm/sec Ao V2 max: 491.5 cm/sec MV max P.3 mmHg MV P1/2t: 64.3 msec Ao max P.7 mmHg MV V2 mean: 121.7 cm/sec Ao V2 mean: 358.8 cm/sec MV mean P.6 mmHg MV dec slope: 625.2 cm/sec2 Ao mean P.8 mmHg MV V2 VTI: 42.1 cm MVA(P1/2t): 3.4 cm2 Ao V2 VTI: 86.8 cm MVA(VTI): 2.5 cm2 KULWANT(I,D): 1.2 cm2 KULWANT(V,D): 1.2 cm2 AI max john: 310.6 cm/sec LV V1 max: 182.8 cm/sec SV(LVOT): 104.3 ml AI max P.6 mmHg LV V1 max P.4 mmHg LV V1 mean P.6 mmHg AI dec slope: 167.7 cm/sec2 LV V1 mean: 129.5 cm/sec AI P1/2t: 542.6 msec LV V1 VTI: 33.2 cm PA V2 max: 143.4 cm/sec TR max john: 299.1 cm/sec TR max P.8 mmHg ECHO/Echo Complete Interpretation Summary Normal LV size. Left ventricular systolic function is normal. The estimated ejection fraction is 65 %. Stage 1 diastolic dysfunction. Mean aortic valve gradient 57 mmHg. Mild (1+) aortic valve insufficiency. Pulmonary artery systolic pressure is 39 mmHg. Compared to the previous echo of the aortic stenosis appears to be worse. Ordering Physician: Bryon Scott Referring Physician: Nicola Bay Performed By: Ciera Jarrett RDCS, RVT
--- NOTE | 2020-11-06 09:20 | CASEMGMT ---
Social Work Note SW received call from Ty Carver states she received a call from pt's Niece Shanthi stating pt does have 24/7 care between the family members but pt is starting to become too much work. Family hasn't brought this up to pt yet though as it is a tough conversation to have. Shanthi requests that SW speak to pt. Pt's nephew Miko is POA and would like to be updated after SW speaks with pt. SW to follow up. Thelma Trinidad CANDY MAKER, LAUNDRY HELPER
--- NOTE | 2020-11-06 11:14 | CON.PCM.RE_ITS ---
Assessment & Plan Assessment/Plan (1) ESRD (end stage renal disease): PLAN: Continue Wednesday dialysis (2) Secondary renal hyperparathyroidism: PLAN: Continue binders (3) Anemia: QUALIFIERS: Anemia type: due to chronic kidney disease Chronic kidney disease stage: on chronic dialysis Qualified Code(s): N18.6 - End stage renal disease; D63.1 - Anemia in chronic kidney disease; Z99.2 - Dependence on renal dialysis PLAN: Start CITLALI if prolonged hospital stay (4) Abdominal ascites: PLAN: Secondary to GUEVARA s/p paracentesis yesterday. Per primary team. HPI Consult Data Date of Consult: 11/06/20 HPI Narrative HPI Narrative: JENNA MCCALLUM, is a 75 F with past medical history as below who presented with a chief complaint of abdominal pain nausea and vomiting after she finished dialysis. She underwent paracentesis and her symptoms resolved. She gets paracentesis once a week usually on for GUEVARA. She denies fever chills chest pain shortness of breath pain at the dialysis catheter site or discharge from the dialysis catheter. [facility] Medical History (Updated 11/06/20 @ 11:[address] Edward Max MD) Anxiety Ascites Benign essential HTN Cirrhosis CKD (chronic kidney disease) stage 4, GFR 15-29 ml/min Depression DM2 (diabetes mellitus, type 2) History of breast cancer Hypothyroid Hypothyroid TIA (transient ischemic attack) Venous insufficiency (chronic) (peripheral) Home Medications pantoprazole 40 mg PO BID 02/01/20 [History Last Taken 07/19/20] calcitriol 0.5 mcg PO MOWEFR 04/12/20 [History Last Taken 07/19/20] levothyroxine 100 mcg PO DAILY 06/03/20 [History Last Taken 07/19/20] insulin asp prt-insulin aspart [Novolog Mix 70-30 U-100 Insuln] 26 units SQ SUTUTHSA 07/19/20 [History Last Taken 07/18/20] insulin glargine 26 unit SC MOWEFR 07/19/20 [History Last Taken 07/19/20] lorazepam 0.5 mg PO DAILY PRN PRN 07/19/20 [History Last Taken Unknown] sevelamer carbonate 800 mg PO TID 07/19/20 [History Last Taken 07/19/20] atorvastatin 40 mg PO QHS #30 tab 07/21/20 [Rx Last Taken Unknown] ondansetron HCl 4 mg PO Q8H PRN #20 tab 07/21/20 [Rx Last Taken Unknown] hydroxyzine HCl 25 mg PO Q6H PRN PRN 11/05/20 [History Last Taken Unknown] midodrine 10 mg PO BID 11/05/20 [History Last Taken Unknown] trazodone 100 mg PO QHS 11/05/20 [History Last Taken Unknown] Allergy/AdvReac Type Severity Reaction Status Date / Time clarithromycin [From Biaxin] Allergy Unknown Verified 11/04/20 18:50 iodine Allergy Rash Verified 11/05/20 00:23 melatonin AdvReac Intermediate dreams Verified 11/05/20 00:23 Family History (Reviewed 07/19/20 @ 18:09 by Brianda Soriano TECHNICIAN CHEMICAL CLEANING, TECHNICIAN CHEMICAL CLEANING-C) Father CHF (congestive heart failure) Heart disease Mother CVA (cerebral vascular accident) Surgical History History of appendectomy History of cataract extraction History of colonoscopy History of extraction of renal calculus History of right mastectomy history port insertion Social History (Updated 05/07/20 @ 11:[address] Prem Barnes MD) Smoking Status: Never smoker Physical Exam Const alert and no apparent distress General Appearance: comfortable HEENT normocephalic HEENT Narrative: atraumatic Neck General: normal visual inspection and trachea midline Resp normal respiratory effort and clear to auscultation bilaterally Cardio regular rate, regular rhythm, S1 normal heart sound and S2 normal heart sound GI soft to palpation and non-tender Extremity Extremity Narrative: Trace edema lower extremity bilaterally Neuro Sensorium / Orientation: awake and alert Lab / Micro Data Result Diagrams: 11/06/20 05:48 11/06/20 05:48 Labs: Laboratory Results - last 24 hr 11/05/20 11/05/20 11/05/20 11:40 15:45 15:45 WBC RBC Hgb Hct MCV MCH MCHC RDW Std Deviation RDW Coeff of Mary Alice Plt Count MPV Immature Gran % (Auto) Neut % (Auto) Lymph % (Auto) [place] % (Auto) Eos % (Auto) Baso % (Auto) Absolute Neuts (auto) Absolute Lymphs (auto) Nucleated RBC % Diff Path Review Platelet Estimate Sodium Potassium Chloride Carbon Dioxide Anion Gap BUN Creatinine Estim Creat Clear Calc Est GFR (MDRD) Af Amer Est GFR (MDRD) Non-Af BUN/Creatinine Ratio Glucose Calcium Total Bilirubin AST ALT Alkaline Phosphatase Total Protein Albumin Globulin Albumin/Globulin Ratio Fluid Source PERITONEAL FLUID Fluid Color YELLOW Fluid Appearance CLEAR Fluid WBC 0.007 Fluid RBC 3 Fluid Tot Cell Count 0.012 H Fld Polynuclear WBCs # 0.001 Fld Polynuclear WBCs % 14.3 Fluid Mononuclear WBCs 0.006 Fld Mononuclear WBCs % 85.7 Fluid Neutrophils 1 Fluid Lymphocytes 12 Fluid Monocytes 5 Fluid Macrophages 49 Fld Mesothelial Cells 33 Fl Pathologist Comment May follow Fluid Glucose 148 H Fluid Total Protein 0.7 Fluid Comment 2 SEE COMMENT POC Glucose 137 H 11/05/20 11/06/20 11/06/20 22:11 05:48 05:48 WBC 2.4 L RBC 2.81 L Hgb 9.1 L Hct 29.6 L MCV 105.3 H MCH 32.4 H MCHC 30.7 L RDW Std Deviation 75.6 H RDW Coeff of Mary Alice 19.3 H Plt Count 50 L* MPV 10.5 Immature Gran % (Auto) 0.000 Neut % (Auto) 69.1 Lymph % (Auto) 19.8 [place] % (Auto) 9.5 Eos % (Auto) 1.2 Baso % (Auto) 0.4 Absolute Neuts (auto) 1.7 L Absolute Lymphs (auto) 0.48 L Nucleated RBC % 0 Diff Path Review May foll Platelet Estimate MKD DEC Sodium 138 Potassium 4.5 Chloride 110 H Carbon Dioxide 21.0 Anion Gap 7 BUN 34 H Creatinine 4.76 H Estim Creat Clear Calc 8.20 Est GFR (MDRD) Af Amer 12 L Est GFR (MDRD) Non-Af 10 L BUN/Creatinine Ratio 7.1 L Glucose 116 H Calcium 8.8 Total Bilirubin 0.80 AST 28 ALT 25 Alkaline Phosphatase 108 Total Protein 4.5 L Albumin 1.8 L Globulin 2.7 Albumin/Globulin Ratio 0.7 L Fluid Source Fluid Color Fluid Appearance Fluid WBC Fluid RBC Fluid Tot Cell Count Fld Polynuclear WBCs # Fld Polynuclear WBCs % Fluid Mononuclear WBCs Fld Mononuclear WBCs % Fluid Neutrophils Fluid Lymphocytes Fluid Monocytes Fluid Macrophages Fld Mesothelial Cells Fl Pathologist Comment Fluid Glucose Fluid Total Protein Fluid Comment 2 POC Glucose 143 H Micro: Microbiology 11/05/20 15:45 Gram Stain - Final Fluid - Paracentesis (Abd) Body Fluid Culture - Preliminary No growth-Final to follow Radiology Impression Paracentesis Ultrasound 11/05/20 09:07 IMPRESSION: Sonographically guided large volume paracentesis Electronically Signed: Ish Alcocer MD at 7:43 EDT , Service support ,
[2020-11-06 11:29] VITALS: BP 73/37; PULSE 87; RESP 18; TEMP 37.1; O2SAT 100
--- NOTE | 2020-11-06 11:33 | CASEMGMT ---
Social Work SW received referral as family is providing pt with caregiving needs and report they are starting to feel burnt out. SW met with pt and introduced self and role of SW. SW reviewed with pt amount of assistance pt is requiring and what services pt family are providing. Pt states that she is very appreciative of nieces and nephews for their care, but is concerned that she might be asking too much of them and she does not want to interrupt their lives. SW discussed home health services with pt and provided list of home health companies including quality and resource use data and consistent with the patient's preferred geographic region, medical needs and insurance network. Pt is agreeable to home health services, PT/SN/AID and preferred provider is [facility]. SW also reviewed with pt list of Private Duty Aides and [facility] information and phone number to call for assessment. Pt is appreciative of information. With pt permission, phone call placed to pt nephew Miko Castro and explained the above. Miko confirms plan to bring pt back home and is appreciative of resources provided. RAYSHAWN Castellano updated on pt wishes for home health services through [facility]. Plan: Home with Home Health Services PT/SN/Aid Shamika COLEY
--- NOTE | 2020-11-06 11:36 | NURSING ---
Addendum entered and electronically signed by Thelma Molina 11/06/20 16:20: 1544- Called Kristal at [facility] and states can accept patient. RAYSHAWN Castellano Original Note: Addendum entered and electronically signed by Thelma Molina 11/06/20 13:06: 1224- Received return call from Kristal at [facility] and answered additional questions. Informed patient is a PDC tomorrow, plan to have Paracentesis tomorrow morning. Per Kristal will call RNMONICA back to discuss if they can accept patient or not. RAYSHAWN Castellano Original Note: Audioprosthologist Verónica went to bedside and spoke with patient regarding family concern of difficulties helping and assisting patient with her care needs. In network [facility] list provided to patient based off of demographic area and scoring system. Patient was amendable to have [facility] with preference of [facility] [place]. 7705- Call to Kristal Mike at [facility], confidential VM left to return call to this insurance underwriter regarding inquiry for acceptance. RAYSHAWN Castellano
[2020-11-06 11:37] LABS: Bedside Glucose 123 mg/dL (70-110)
[2020-11-06 12:36] VITALS: BP 87/45; PULSE 88
--- NOTE | 2020-11-06 13:02 | CHAPLAIN ---
Type of Pastoral Visit _x__ Initial Visit ___ Follow-up Visit ___ On-call Visit ___ General Patient Visit ___ Spiritual Assessment ___ Family Conference ___ Bereavement ___ Rapid Response ___ Code Blue ___ Other (describe below) Pastoral Care Referral From _x__ Patient ___ Family ___ Nurse ___ Physician ___ Twist Tester ___ Buckle Attaching Machine Operator ___ Other (describe below) Sacrament/Intervention _x__ Active listening ___ Anointing ___ Alevism ___ Bereavement ___ Communion ___ Ashley exploration ___ _x__ Life review _x__ Prayer ___ Reconciliation ___ Sacrament of Sick _x__ Supportive presence ___ Wedding ___ Other (describe below) Pastoral Comments
[2020-11-06 13:19] LABS: Pathologist Comment/Body Fluid Reviewed
[2020-11-06 13:25] LABS: Pathologist Review Reviewed
--- NOTE | 2020-11-06 13:33 | PN.HOSP_ITS ---
Subjective Subjective Patient BP continues to be low although she is asymptomatic. this is her baseline because of vasodilatory Physiology of cirrhosis. Objective Data Objective Data Vital Signs: Vital Signs Temp Pulse Resp BP Pulse Ox 98.8 F 88 18 87/45 L 100 11/06/20 11:29 11/06/20 12:36 11/06/20 11:29 11/06/20 12:36 11/06/20 11:29 Oxygen Delivery Method [5] Room Air Oxygen Delivery Method [4] Room Air Oxygen Delivery Method [3] Room Air Oxygen Delivery Method [2] Room Air Oxygen Delivery Method [1 ( Room Air Initial Baseline)] Oxygen Delivery Method Room Air Weight: 179 lb 14.355 oz Body Mass Index (BMI) 32.8 Intake & Output: Intake and Output for Last 24 Hours 11/04/20 11/05/20 11/06/20 23:59 23:59 23:59 Intake Total 1904.75 / 1904.75 50 / 50 Output Total 4750 / 4750 Balance -2845.25 / -2845.25 50 / 50 Lab / Micro Data Result Diagrams: 11/06/20 05:48 11/06/20 05:48 Labs: Laboratory Results - last 24 hr 11/05/20 11/05/20 11/05/20 15:45 15:45 22:11 WBC RBC Hgb Hct MCV MCH MCHC RDW Std Deviation RDW Coeff of Mary Alice Plt Count MPV Immature Gran % (Auto) Neut % (Auto) Lymph % (Auto) Braxton % (Auto) Eos % (Auto) Baso % (Auto) Absolute Neuts (auto) Absolute Lymphs (auto) Nucleated RBC % Diff Path Review Platelet Estimate Sodium Potassium Chloride Carbon Dioxide Anion Gap BUN Creatinine Estim Creat Clear Calc Est GFR (MDRD) Af Amer Est GFR (MDRD) Non-Af BUN/Creatinine Ratio Glucose Calcium Total Bilirubin AST ALT Alkaline Phosphatase Total Protein Albumin Globulin Albumin/Globulin Ratio Fluid Source PERITONEAL FLUID Fluid Color YELLOW Fluid Appearance CLEAR Fluid WBC 0.007 Fluid RBC 3 Fluid Tot Cell Count 0.012 H Fld Polynuclear WBCs # 0.001 Fld Polynuclear WBCs % 14.3 Fluid Mononuclear WBCs 0.006 Fld Mononuclear WBCs % 85.7 Fluid Neutrophils 1 Fluid Lymphocytes 12 Fluid Monocytes 5 Fluid Macrophages 49 Fld Mesothelial Cells 33 Fl Pathologist Comment Reviewed Fluid Glucose 148 H Fluid Total Protein 0.7 Fluid Comment 2 SEE COMMENT POC Glucose 143 H 11/06/20 11/06/20 11/06/20 05:48 05:48 06:52 WBC 2.4 L RBC 2.81 L Hgb 9.1 L Hct 29.6 L MCV 105.3 H MCH 32.4 H MCHC 30.7 L RDW Std Deviation 75.6 H RDW Coeff of Mary Alice 19.3 H Plt Count 50 L* MPV 10.5 Immature Gran % (Auto) 0.000 Neut % (Auto) 69.1 Lymph % (Auto) 19.8 Braxton % (Auto) 9.5 Eos % (Auto) 1.2 Baso % (Auto) 0.4 Absolute Neuts (auto) 1.7 L Absolute Lymphs (auto) 0.48 L Nucleated RBC % 0 [address] Review Reviewed Platelet Estimate MKD DEC Sodium 138 Potassium 4.5 Chloride 110 H Carbon Dioxide 21.0 Anion Gap 7 BUN 34 H Creatinine 4.76 H Estim Creat Clear Calc 8.20 Est GFR (MDRD) Af Amer 12 L Est GFR (MDRD) Non-Af 10 L BUN/Creatinine Ratio 7.1 L Glucose 116 H Calcium 8.8 Total Bilirubin 0.80 AST 28 ALT 25 Alkaline Phosphatase 108 Total Protein 4.5 L Albumin 1.8 L Globulin 2.7 Albumin/Globulin Ratio 0.7 L Fluid Source Fluid Color Fluid Appearance Fluid WBC Fluid RBC Fluid Tot Cell Count Fld Polynuclear WBCs # Fld Polynuclear WBCs % Fluid Mononuclear WBCs Fld Mononuclear WBCs % Fluid Neutrophils Fluid Lymphocytes Fluid Monocytes Fluid Macrophages Fld Mesothelial Cells Fl Pathologist Comment Fluid Glucose Fluid Total Protein Fluid Comment 2 POC Glucose 123 H Micro: Microbiology 11/05/20 15:45 Fluid - Paracentesis (Abd) Gram Stain - Final 11/05/20 15:45 Fluid - Paracentesis (Abd) Body Fluid Culture - Preliminary No growth-Final to follow Radiography Diagnostic Testing: Radiology Impression Paracentesis Ultrasound 11/05/20 09:07 IMPRESSION: Sonographically guided large volume paracentesis Electronically Signed: Ish Alcocer MD at 7:43 EDT , Service support , Echocardiogram 11/06/20 09:07 Interpretation Summary Normal LV size. Left ventricular systolic function is normal. The estimated ejection fraction is 65 %. Stage 1 diastolic dysfunction. Mean aortic valve gradient 57 mmHg. Mild (1+) aortic valve insufficiency. Pulmonary artery systolic pressure is 39 mmHg. Compared to the previous echo of the aortic stenosis appears to be worse. Ordering Physician: Bryon Scott Referring Physician: Nicola Bay Performed By: Ciera Jarrett, JAVON, RVT Physical Exam Narrative General: Alert, Oriented x3, Cooperative HEENT: Atraumatic, PERRLA, EOMI, Normocephalic Oral: No Gingival or Mucosal Lesions/ Ulcerations Neck: Supple, No JVD, Negative Carotid Bruits. Mediport on right subclavian region Lungs: Air entry diminished in bilateral lung bases. No crepitation/rhonchi Cardiovascular: Low pitched, muffled heart sounds. Regular rate and rhythm, Normal S1, Normal S2, injection systolic murmur over second ICS. Abdomen: Ascites is decreased. Bowel sounds sluggish. Nontender. Soft. Umbilical hernia reducible. : On hemodialysis no renal angle tenderness. No suprapubic tenderness. Extremities: Bilateral lower extremity, indurated edema, Capillary Refill Less than 3 Seconds Skin: Small scab ulcer on the right great toe nail, lateralized Musculoskeletal: No Tenderness to Palpation of Joints or Extremities Neurological: Cranial nerves II-XII grossly intact, Deep Tendon Reflexes 2+/4 and Symmetrical, Neuro grossly intact Psych/Mental Status: Normal Affect, Appropriate. 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 She is on weekly paracentesis secondary to Forrester towards decompensated cirrhosis last 1 on 10/31.. Assessment and plan 1. Abdominal pain with nausea and vomiting due to ascites from decompensated Forrester liver cirrhosis, rule out SBP with chronic hypotension: [facility] Discussed with the radiologist for ultrasound-guided paracentesis and fluid analysis test which were ordered. Labs ordered for fluid chemistry, cell count, culture. Patient has hypotension from vasodilation, cirrhosis. On midodrine. Abdominal pain has resolved. Pancytopenia related from decompen sated cirrhosis 11/06: Patient had 4.7 L acetic fluid tapped yesterday. Fluid analysis not suggestive of SBP. No abdominal tenderness. 2D echo is ordered as patient has his murmur and right side of the heart. 2. Diabetes mellitus type II?patient initially n.p.o. but had breakfast. On sliding scale insulin. Glucose 119 glucose is controlled. 3. End-stage renal failure on dialysis, secondary hyperparathyroidism?patient received her dialysis; on day of admission. [place] Inspector consulted. Dialysis today. Midodrine 10 mg twice daily along with extra 10 mg on the days of dialysis. 4. DVT prophylaxis?SCDs due to thrombocytopenia 5. Hypothyroidism?continue oral thyroid medication if tolerating oral in the morning. 6. Pancytopenia related to decompensated cirrhosis 7. Other comorbidities include hypertension, history of breast cancer in remission, chronic venous insufficiency and bilateral lymphedema: Multiple comorbidities complicates the present care and expect difficult and delay r ecovery Living will/advanced directive/end of life care: DNR CC arrest with no intubation. Visit Charges Inpatient E&M: 21221 Subs Hosp L2
--- NOTE | 2020-11-06 17:48 | DIALYSIS ---
HD today hypotensive throughout tx, midodrine pre tx. uf -1000ml. alert post tx
[2020-11-06] MEDS: Gabapentin 100 MG Capsule PO (18:49)
[2020-11-06 20:12] VITALS: BP 89/48; PULSE 88; RESP 18; TEMP 36.7; O2SAT 92
[2020-11-06] MEDS: Atorvastatin Calcium 40 MG Tablet PO (21:21)
[2020-11-06] MEDS: Menthol/Lanolin/Calamine/Znox 113 GM Tube 1 APPLIC TOPICAL (21:21)
[2020-11-06] MEDS: traZODone 100 MG Tablet PO (21:21)
[2020-11-07 02:46] VITALS: BP 76/44; PULSE 75; RESP 18; TEMP 36.8; O2SAT 94
[2020-11-07] MEDS: Levothyroxine 100 MCG Tablet PO (05:45)
[2020-11-07 05:58] LABS: Absolute Lymphocyte Count 0.47 X10^3/uL (0.83-4.51); Absolute Neutrophil Count 1.9 X10^3/uL (2.0-7.7); Basophil# 0.02 X10^3/uL; Basophil% 0.7 % (0-1); Eosinophil# 0.04 X10^3/uL; Eosinophils% 1.5 % (0-5); Hemoglobin 9.3 g/dL (12.0-15.0); Lymphocyte # 0.47 X10^3/ul (0.83-4.51); Lymphocyte % 17.5 % (19-41); Mean Corpuscular Hgb 32.4 pg (27.0-32.0); Mean Corpuscular Volume 104.5 fL (81-99); Mean Platelet Vol. 9.6 fl (6.2-12.0); Monocyte# 0.22 X10^3/uL; Monocyte% 8.2 % (0-10); NRBC Flagged by Analyzer 0 % (0-5); Neutrophil # 1.92 X10^3/uL (2.7-7.7); Neutrophil % 71.7 % (47-70); POSITIVE COUNT YES; POSITIVE DIFFERENTIAL YES; POSITIVE MORPHOLOGY YES; RBC Distribution Width CV 18.8 % (11.6-14.6); RBC Distribution Width SD 72.3 fl (35.1-43.9); Red Blood Count 2.87 M/mm3 (4.2-5.4); White Blood Count 2.7 K/mm3 (4.4-11.0)
[2020-11-07 06:05] LABS: Differential Indicated SCAN CRITERIA MET; Platelet Count 41 K/mm3 (150-450)
[2020-11-07 06:19] LABS: Macrocytosis RARE; Platelet Estimate MKD DEC (ADEQ); Polychromasia RARE
[2020-11-07 06:47] VITALS: O2SAT 97
[2020-11-07 07:05] LABS: ALB/GLOB Ratio 0.7 RATIO (0.9-2.4); AST(SGOT) 22 U/L (15-37); Alanine Aminotransfer ALT/SGPT 22 U/L (13-56); Albumin, Serum 1.8 g/dL (3.2-5.0); Alkaline Phosphatase 107 U/L (45-117); Anion Gap 6 (5-15); BUN 26 mg/dL (7-18); BUN/Creat Ratio 6.5 RATIO (10-20); Calcium,Total 7.9 mg/dL (8.5-10.1); Chloride 106 mmol/L (98-107); Creatinine, Serum 4.02 mg/dL (0.55-1.02); EST Glomerular Filtration Rate 12 mL/min (>60); Est Glom Filt Rate - Afr Amer 14 mL/min (>60); Estimated Creatinine Clearance 9.71 ml/min; Globulin 2.7 g/dL (2.2-4.2); Glucose 159 mg/dL (74-106); Potassium 4.2 mmol/L (3.5-5.1); Protein, Total 4.5 g/dL (6.4-8.2); Sodium Level 137 mmol/L (136-145)
[2020-11-07 07:05] LABS: Bedside Glucose 149 mg/dL (70-110)
[2020-11-07 08:44] VITALS: BP 77/46; PULSE 84; RESP 18; TEMP 36.4; O2SAT 94
--- NOTE | 2020-11-07 09:28 | PCM.DC.SUM ---
Providers Date of Admission: 11/04/20 Primary Care Physician: Dr. Nicola Bay MD Consultations 11/05/20 00:45 Consult: Onc/Wound/electrician's assistant Routine Comment: Reason for Consult:: Right Great Toe wound 11/05/20 09:26 Consult: Nephrology Routine Consulting Provider: Edward Max Reason for Consult: ESRD ON HD EMERGENT Consult: No MD Notified: Yes Date Notified:: 11/05/20 Time Notified: 09:26 Method of Notification: Answering Service Comments:: (Dr. Max covering for Dr. Valdivia) Reason For Visit: ABDOMINAL PAIN/NAUSEA AND VOMITING Diagnosis Discharge Diagnosis (1) Abdominal ascites: Status: Acute Code(s): R18.8 - Other ascites (2) Pancytopenia: Status: Chronic Code(s): D61.818 - Other pancytopenia (3) Chronic kidney disease: Status: Chronic Code(s): N18.9 - Chronic kidney disease, unspecified (4) Hypothyroidism: Status: Chronic Code(s): E03.9 - Hypothyroidism, unspecified (5) Anemia: Status: Chronic Code(s): D64.9 - Anemia, unspecified Qualifiers: Anemia type: due to chronic kidney disease Chronic kidney disease stage: on chronic dialysis Qualified Code(s): N18.6 - End stage renal disease; D63.1 - Anemia in chronic kidney disease; Z99.2 - Dependence on renal dialysis (6) Liver cirrhosis secondary to GUEVARA: Status: Chronic Code(s): K75.81 - Nonalcoholic steatohepatitis (GUEVARA); K74.60 - Unspecified cirrhosis of liver (7) Diabetes: Status: Chronic Code(s): E11.9 - Type 2 diabetes mellitus without complications Qualifiers: Diabetes mellitus type: type 2 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 insulin use: with penitentiary use Diabetes mellitus complication status: with hyperglycemia Qualified Code(s): E11.65 - Type 2 diabetes mellitus with hyperglycemia; Z79.4 - residential (current) use of insulin (8) History of breast cancer: Status: Chronic Code(s): Z85.3 - Personal history of malignant neoplasm of breast Medications at Discharge Home Medications pantoprazole 40 mg PO BID 02/01/20 calcitriol 0.5 mcg PO MOWEFR 04/12/20 levothyroxine 100 mcg PO DAILY 06/03/20 insulin asp prt-insulin aspart [Novolog Mix 70-30 U-100 Insuln] 26 units SQ SUTUTHSA 07/19/20 insulin glargine 26 unit SC MOWEFR 07/19/20 lorazepam 0.5 mg PO DAILY PRN PRN 07/19/20 sevelamer carbonate 800 mg PO TID 07/19/20 atorvastatin 40 mg PO QHS #30 tab 07/21/20 ondansetron HCl 4 mg PO Q8H PRN #20 tab 07/21/20 hydroxyzine HCl 25 mg PO Q6H PRN PRN 11/05/20 midodrine 10 mg PO BID 11/05/20 trazodone 100 mg PO QHS 11/05/20 ABG / Lab / Microbiology Data Result Diagrams: 11/07/20 05:50 11/07/20 05:50 Laboratory: Laboratory Results - last 24 hr 11/05/20 11/06/20 11/06/20 15:45 05:48 06:52 WBC RBC Hgb Hct MCV MCH MCHC RDW Std Deviation RDW Coeff of Mary Alice Plt Count MPV Immature Gran % (Auto) Neut % (Auto) Lymph % (Auto) [place] % (Auto) Eos % (Auto) Baso % (Auto) Absolute Neuts (auto) Absolute Lymphs (auto) Nucleated RBC % Diff Path Review Reviewed Platelet Estimate Polychromasia Macrocytosis Sodium Potassium Chloride Carbon Dioxide Anion Gap BUN Creatinine Estim Creat Clear Calc Est GFR (MDRD) Af Amer Est GFR (MDRD) Non-Af BUN/Creatinine Ratio Glucose Calcium Total Bilirubin AST ALT Alkaline Phosphatase Total Protein Albumin Globulin Albumin/Globulin Ratio Fl Pathologist Comment Reviewed POC Glucose 123 H 11/07/20 11/07/20 11/07/20 05:50 05:50 07:00 WBC 2.7 L RBC 2.87 L Hgb 9.3 L Hct 30.0 L MCV 104.5 H MCH 32.4 H MCHC 31.0 L RDW Std Deviation 72.3 H RDW Coeff of Mary Alice 18.8 H Plt Count 41 L* MPV 9.6 Immature Gran % (Auto) 0.400 Neut % (Auto) 71.7 H Lymph % (Auto) 17.5 L [place] % (Auto) 8.2 Eos % (Auto) 1.5 Baso % (Auto) 0.7 Absolute Neuts (auto) 1.9 L Absolute Lymphs (auto) 0.47 L Nucleated RBC % 0 Diff Path Review May foll Platelet Estimate MKD DEC Polychromasia RARE Macrocytosis RARE Sodium 137 Potassium 4.2 Chloride 106 Carbon Dioxide 25.0 Anion Gap 6 BUN 26 H Creatinine 4.02 H Estim Creat Clear Calc 9.71 Est GFR (MDRD) Af Amer 14 L Est GFR (MDRD) Non-Af 12 L BUN/Creatinine Ratio 6.5 L Glucose 159 H Calcium 7.9 L Total Bilirubin 0.60 AST 22 ALT 22 Alkaline Phosphatase 107 Total Protein 4.5 L Albumin 1.8 L Globulin 2.7 Albumin/Globulin Ratio 0.7 L Fl Pathologist Comment POC Glucose 149 H Microbiology: Microbiology 11/05/20 15:45 Gram Stain - Final Fluid - Paracentesis (Abd) Body Fluid Culture - Preliminary No growth-Final to follow Microbiology 11/05/20 15:45 Fluid - Paracentesis (Abd) Gram Stain - Final 11/05/20 15:45 Fluid - Paracentesis (Abd) Body Fluid Culture - Preliminary No growth-Final to follow Radiography Diagnostic Testing: Radiology Impression Echocardiogram 11/06/20 09:07 Interpretation Summary Normal LV size. Left ventricular systolic function is normal. The estimated ejection fraction is 65 %. Stage 1 diastolic dysfunction. Mean aortic valve gradient 57 mmHg. Mild (1+) aortic valve insufficiency. Pulmonary artery systolic pressure is 39 mmHg. Compared to the previous echo of the aortic stenosis appears to be worse. Ordering Physician: Bryon Scott Referring Physician: Nicola Bay Performed By: Ciera Jarrett RDCS, RVT Discharge Plan Admission Admit Date/Time: 11/04/20 22:17 Attending Provider: Bryon Scott Primary Care Provider: Nicola Bay Consulting Providers: Edward Max Discharge Orders/Prescriptions Prescriptions: No Action calcitriol 0.5 MCG capsule 0.5 mcg PO MOWEFR RF: 0 pantoprazole 40 MG tablet 40 mg PO BID RF: 0 levothyroxine 100 MCG tablet 100 mcg PO DAILY RF: 0 lorazepam 0.5 MG tablet 0.5 mg PO DAILY PRN PRN (Reason: Anxiety) RF: 0 insulin asp prt-insulin aspart [Novolog Mix 70-30 U-100 Insuln] 100 UNIT/ML solution 26 units SQ SUTUTHSA RF: 0 sevelamer carbonate 800 MG tablet 800 mg PO TID RF: 0 insulin glargine 100 UNITS/ML insulin pen 26 unit SC MOWEFR RF: 0 atorvastatin 40 MG tablet 40 mg PO QHS Qty: 30 RF: 0 ondansetron HCl 4 MG tablet 4 mg PO Q8H PRN (Reason: Nausea) Qty: 20 RF: 0 trazodone 50 mg tablet 100 mg PO QHS RF: 0 hydroxyzine HCl 25 mg tablet 25 mg PO Q6H PRN PRN (Reason: Itching) RF: 0 midodrine 10 mg tablet 10 mg PO BID RF: 0 Referrals / Follow Up: Nicola Bay MD [Primary Care Provider] - Disposition Disposition (needs filled in before D/C Order can be placed): Home, self care
[2020-11-07] MEDS: Pantoprazole Sodium 40 MG Tablet PO ×2 (09:53→21:04)
[2020-11-07] MEDS: Midodrine HCl 5 MG Tablet 10 MG PO ×2 (09:53→21:03)
[2020-11-07] MEDS: SEVELAMER CARBONATE 800 MG TABLET PO ×3 (09:53→17:39)
[2020-11-07] MEDS: Menthol/Lanolin/Calamine/Znox 113 GM Tube 1 APPLIC TOPICAL ×2 (09:54→21:02)
--- NOTE | 2020-11-07 10:06 | PHA.DC.MR ---
Pharmacy Service has performed discharge medication reconciliation for this patient. No new medications at time of discharge review. Medications reviewed are from previously reported home medications. Home Medications pantoprazole 40 mg PO BID 02/01/20 calcitriol 0.5 mcg PO MOWEFR 04/12/20 levothyroxine 100 mcg PO DAILY 06/03/20 insulin asp prt-insulin aspart [Novolog Mix 70-30 U-100 Insuln] 26 units SQ SUTUTHSA 07/19/20 insulin glargine 26 unit SC MOWEFR 07/19/20 lorazepam 0.5 mg PO DAILY PRN PRN 07/19/20 sevelamer carbonate 800 mg PO TID 07/19/20 atorvastatin 40 mg PO QHS #30 tab 07/21/20 ondansetron HCl 4 mg PO Q8H PRN #20 tab 07/21/20 hydroxyzine HCl 25 mg PO Q6H PRN PRN 11/05/20 midodrine 10 mg PO BID 11/05/20 trazodone 100 mg PO QHS 11/05/20 The patient's discharge medication list was reviewed for discrepancies and discrepancies were resolved.
--- NOTE | 2020-11-07 11:14 | US_ITS ---
PROCEDURE: ULTRASOUND GUIDED PARACENTESIS CLINICAL HISTORY: Female, 75 years old. Ascites CONSENT: Informed consent obtained Time-Out Called: Yes. Consent form signed: Yes. PT-PTT Levels Checked: Yes. SEDATION: Local with 2% XYLOCAINE TECHNIQUE: Ultrasound guided FINDINGS: FLUID PRE-PROCEDURE There is posterior enhancement. The findings appear anechoic. There is no loculation. FLUID POST-PROCEDURE Amount of fluid drained: 4450 ml. After informed consent was obtained, patient was placed in the supine position on the ultrasound table. Appropriate site for large volume paracentesis was determined using sonographic guidance in the right lower quadrant. The area was prepped and draped in a sterile manner, and to present XYLOCAINE was used as local anesthetic. Using sterile protocol, including handwashing and wearing gloves, a Hao drainage catheter was advanced into the abdominal cavity and 4450 mL of straw-colored serous fluid was withdrawn. At this point, patient became hypotensive so the drainage catheter was removed. Patient tolerated the procedure well with no immediate complications and was returned to the floor in stable condition US/Paracentesis with US IMPRESSION: Successful ultrasound-guided paracentesis Electronically Signed: Ish Alcocer MD at 12:58 EDT , Service support ,
[2020-11-07 12:12] LABS: Pathologist Review Reviewed
[2020-11-07 12:27] VITALS: BP 69/32; BP 75/37; BP 79/32; BP 81/40; BP 84/42; PULSE 83; PULSE 86; PULSE 87; PULSE 88; RESP 16; RESP 18; O2SAT 93; O2SAT 96; O2SAT 98; O2SAT 99
--- NOTE | 2020-11-07 13:04 | CASEMGMT ---
EVAN ANDERSON NOTE: Received call from EVAN Carter, that pt voiced concerns to her re: continuation of dialysis and that she has questions re: same. EVAN ANDERSON to room to talk w/pt. Pt resting in bed, Alert/oriented. Pt states would be interested in talking w/Palliative care. Call placed to Palliative care and spoke w/Claire and she was made aware of same. Claire also made aware discharge disposition is TBD, as pt is considering going to a SNF. Lei HACKETT RN CM
--- NOTE | 2020-11-07 13:11 | CASEMGMT ---
Addendum entered by Thelma Trinidad 11/07/20 14:17: SW back in to speak with pt. Pt states she has a call out to her niece who is calling other family members to see about transporting pt to and from [place] to Dialysis and Paracentesis. Original Note: Social Work Note SW updated that pt feels weak at this time, not sure if she is able to discharge home today. SW reviewed PT/OT, pt walked 30ft contact guard today. Pt also has [facility] Medicare insurance, no SNF in [place] has a contract with [facility]. The closest SNFs that accept [place] are [place] and [facility] and [facility] in [place]. SW in to speak with pt. SW introduced self and role at [facility]. SW asked pt about her concerns. Pt states that she just feels tired and weak, is not sure if she feels strong enough to go home today. SW informed pt that there is a discharge in for today and if pt feels she isn't strong enough to go home, she will need to consider a SNF. Pt asked about stating at [facility] or going to [facility]. SW informed pt that [facility] doesn't take dialysis pt and [facility] is not in network with pt's insurance. Pt states she needs to go to a SNF that accept pt's insurance. GUS explained the next closest SNF is in [place] or in [place]. Pt states she will not go to [place], would be willing to go to [place] but would not be willing to go to [place]. GUS informed pt that this worker is not sure if [place] accept's dialysis pt's but can check. Pt asked this worker to check with [place]. GUS placed a call to [place] and spoke with Riri. Alicia states pt would need to arrange transportation to and from Dialysis and Paracentesis. Alicia states they utilizes [employer] for transportation but pt would need to pay out of pocket. GUS in to speak with pt. GUS encouraged pt to call and speak to her family that transports pt to and from Dialysis and to Paracentesis to see if they would be willing to drive pt from [place] to [place] for her appointments. GUS informed pt that if they are not willing, pt could pay privately for transportation too. Pt states she will call her family to discuss. SW also placed a call to Thelma at [facility] and asked about One Time Contract with [facility]. Thelma states they haven't had any luck with getting one time contracts with [facility]. GUS will follow up with pt. GUS updated physician. Thelma Trinidad POND SUPERVISOR, FASHION DIRECTOR
--- NOTE | 2020-11-07 13:31 | PCM.PN.REN ---
Subjective Subjective The patient denies abdominal pain or vomiting awaiting placement in rehab Objective Data Objective Data Vital Signs: Vital Signs Temp Pulse Resp BP Pulse Ox 97.5 F L 88 16 81/40 L 94 11/07/20 08:44 11/07/20 12:27 11/07/20 12:27 11/07/20 12:27 11/07/20 08:44 Oxygen Delivery Method [5] Room Air Oxygen Delivery Method [4] Room Air Oxygen Delivery Method [3] Room Air Oxygen Delivery Method [2] Room Air Oxygen Delivery Method [1 ( Room Air Initial Baseline)] Oxygen Delivery Method Room Air Weight: 81.6 kg Body Mass Index (BMI) 32.8 Intake & Output: Intake and Output for Last 24 Hours 11/05/20 11/06/20 11/07/20 23:59 23:59 23:59 Intake Total 1904.75 / 1904.75 290 / 290 30 / 30 Output Total 4750 / 4750 1000 / 1000 Balance -2845.25 / -2845.25 -710 / -710 30 / 30 Lab / Micro Data Result Diagrams: 11/07/20 05:50 11/07/20 05:50 Labs: Laboratory Results - last 24 hr 11/05/20 11/07/20 11/07/20 15:45 05:50 05:50 WBC 2.7 L RBC 2.87 L Hgb 9.3 L Hct 30.0 L MCV 104.5 H MCH 32.4 H MCHC 31.0 L RDW Std Deviation 72.3 H RDW Coeff of Mary Alice 18.8 H Plt Count 41 L* MPV 9.6 Immature Gran % (Auto) 0.400 Neut % (Auto) 71.7 H Lymph % (Auto) 17.5 L Ritchie % (Auto) 8.2 Eos % (Auto) 1.5 Baso % (Auto) 0.7 Absolute Neuts (auto) 1.9 L Absolute Lymphs (auto) 0.47 L Nucleated RBC % 0 Diff Path Review Reviewed Platelet Estimate MKD DEC Polychromasia RARE Macrocytosis RARE Sodium 137 Potassium 4.2 Chloride 106 Carbon Dioxide 25.0 Anion Gap 6 BUN 26 H Creatinine 4.02 H Estim Creat Clear Calc 9.71 Est GFR (MDRD) Af Amer 14 L Est GFR (MDRD) Non-Af 12 L BUN/Creatinine Ratio 6.5 L Glucose 159 H Calcium 7.9 L Total Bilirubin 0.60 AST 22 ALT 22 Alkaline Phosphatase 107 Total Protein 4.5 L Albumin 1.8 L Globulin 2.7 Albumin/Globulin Ratio 0.7 L Miscellaneous Cytology SEE PATHOLOGY REPORT POC Glucose 11/07/20 07:00 WBC RBC Hgb Hct MCV MCH MCHC RDW Std Deviation RDW Coeff of Mary Alice Plt Count MPV Immature Gran % (Auto) Neut % (Auto) Lymph % (Auto) Ritchie % (Auto) Eos % (Auto) Baso % (Auto) Absolute Neuts (auto) Absolute Lymphs (auto) Nucleated RBC % Diff Path Review Platelet Estimate Polychromasia Macrocytosis Sodium Potassium Chloride Carbon Dioxide Anion Gap BUN Creatinine Estim Creat Clear Calc Est GFR (MDRD) Af Amer Est GFR (MDRD) Non-Af BUN/Creatinine Ratio Glucose Calcium Total Bilirubin AST ALT Alkaline Phosphatase Total Protein Albumin Globulin Albumin/Globulin Ratio Miscellaneous Cytology POC Glucose 149 H Micro: Microbiology 11/05/20 15:45 Fluid - Paracentesis (Abd) Gram Stain - Final 11/05/20 15:45 Fluid - Paracentesis (Abd) Body Fluid Culture - Preliminary No growth-Final to follow Radiography Diagnostic Testing: Radiology Impression Paracentesis Ultrasound 11/07/20 11:14 IMPRESSION: Successful ultrasound-guided paracentesis Electronically Signed: Ish Alcocer MD at 12:58 EDT , Service support , Physical Exam Const alert and no apparent distress General Appearance: comfortable HEENT normocephalic Neck General: normal visual inspection and trachea midline Resp normal respiratory effort and clear to auscultation bilaterally Cardio regular rate, regular rhythm, S1 normal heart sound and S2 normal heart sound GI soft to palpation and non-tender Neuro Sensorium / Orientation: awake and alert Assessment & Plan Assessment/Plan (1) ESRD (end stage renal disease): PLAN: Continue Wednesday dialysis (2) Secondary renal hyperparathyroidism: PLAN: Continue binders (3) Anemia: QUALIFIERS: Anemia type: due to chronic kidney disease Chronic kidney disease stage: on chronic dialysis Qualified Code(s): N18.6 - End stage renal disease; D63.1 - Anemia in chronic kidney disease; Z99.2 - Dependence on renal dialysis PLAN: Start CITLALI if prolonged hospital stay (4) Abdominal ascites: PLAN: Secondary to GUEVARA s/p paracentesis Per primary team. Awaiting rehab placement.
--- NOTE | 2020-11-07 14:08 | PCM.PN.HOSP ---
Subjective Subjective Patient blood pressure was low in the radiology department before paracentesis. Current blood pressure 84/42. Midodrine was given prior to paracentesis. Patient feels weak and changed her mind and wants to go SNF. Objective Data Objective Data Vital Signs: Vital Signs Temp Pulse Resp BP Pulse Ox 97.5 F L 88 16 81/40 L 94 11/07/20 08:44 11/07/20 12:27 11/07/20 12:27 11/07/20 12:27 11/07/20 08:44 Oxygen Delivery Method [5] Room Air Oxygen Delivery Method [4] Room Air Oxygen Delivery Method [3] Room Air Oxygen Delivery Method [2] Room Air Oxygen Delivery Method [1 ( Room Air Initial Baseline)] Oxygen Delivery Method Room Air Weight: 179 lb 14.355 oz Body Mass Index (BMI) 32.8 Intake & Output: Intake and Output for Last 24 Hours 11/05/20 11/06/20 11/07/20 23:59 23:59 23:59 Intake Total 1904.75 / 1904.75 290 / 290 30 / 30 Output Total 4750 / 4750 1000 / 1000 Balance -2845.25 / -2845.25 -710 / -710 30 / 30 Lab / Micro Data Result Diagrams: 11/07/20 05:50 11/07/20 05:50 Labs: Laboratory Results - last 24 hr 11/05/20 11/07/20 11/07/20 15:45 05:50 05:50 WBC 2.7 L RBC 2.87 L Hgb 9.3 L Hct 30.0 L MCV 104.5 H MCH 32.4 H MCHC 31.0 L RDW Std Deviation 72.3 H RDW Coeff of Mary Alice 18.8 H Plt Count 41 L* MPV 9.6 Immature Gran % (Auto) 0.400 Neut % (Auto) 71.7 H Lymph % (Auto) 17.5 L [place] % (Auto) 8.2 Eos % (Auto) 1.5 Baso % (Auto) 0.7 Absolute Neuts (auto) 1.9 L Absolute Lymphs (auto) 0.47 L Nucleated RBC % 0 Diff Path Review Reviewed Platelet Estimate MKD DEC Polychromasia RARE Macrocytosis RARE Sodium 137 Potassium 4.2 Chloride 106 Carbon Dioxide 25.0 Anion Gap 6 BUN 26 H Creatinine 4.02 H Estim Creat Clear Calc 9.71 Est GFR (MDRD) Af Amer 14 L Est GFR (MDRD) Non-Af 12 L BUN/Creatinine Ratio 6.5 L Glucose 159 H Calcium 7.9 L Total Bilirubin 0.60 AST 22 ALT 22 Alkaline Phosphatase 107 Total Protein 4.5 L Albumin 1.8 L Globulin 2.7 Albumin/Globulin Ratio 0.7 L Miscellaneous Cytology SEE PATHOLOGY REPORT POC Glucose 11/07/20 07:00 WBC RBC Hgb Hct MCV MCH MCHC RDW Std Deviation RDW Coeff of Mary Alice Plt Count MPV Immature Gran % (Auto) Neut % (Auto) Lymph % (Auto) [place] % (Auto) Eos % (Auto) Baso % (Auto) Absolute Neuts (auto) Absolute Lymphs (auto) Nucleated RBC % Diff Path Review Platelet Estimate Polychromasia Macrocytosis Sodium Potassium Chloride Carbon Dioxide Anion Gap BUN Creatinine Estim Creat Clear Calc Est GFR (MDRD) Af Amer Est GFR (MDRD) Non-Af BUN/Creatinine Ratio Glucose Calcium Total Bilirubin AST ALT Alkaline Phosphatase Total Protein Albumin Globulin Albumin/Globulin Ratio Miscellaneous Cytology POC Glucose 149 H Micro: Microbiology 11/05/20 15:45 Fluid - Paracentesis (Abd) Gram Stain - Final 11/05/20 15:45 Fluid - Paracentesis (Abd) Body Fluid Culture - Preliminary No growth-Final to follow Radiography Diagnostic Testing: Radiology Impression Paracentesis Ultrasound 11/07/20 11:14 IMPRESSION: Successful ultrasound-guided paracentesis Electronically Signed: Ish Alcocer MD at 12:58 EDT , Service support , Physical Exam Narrative General: Alert, Oriented x3, Cooperative HEENT: Atraumatic, PERRLA, EOMI, Normocephalic Oral: No Gingival or Mucosal Lesions/ Ulcerations Neck: Supple, No JVD, Negative Carotid Bruits. Mediport on right subclavian region Lungs: Air entry diminished in bilateral lung bases. No crepitation/rhonchi Cardiovascular: muffled heart sounds. Regular rate and rhythm, Normal S1, Normal S2, injection systolic murmur over second ICS. Abdomen: Ascites larger than yesterday. Bowel sounds sluggish. Nontender. Soft. Umbilical hernia reducible. : On hemodialysis no renal angle tenderness. No suprapubic tenderness. Extremities: Bilateral lower extremity, indurated edema, Capillary Refill Less than 3 Seconds Skin: Small scab ulcer on the right great toe nail, lateralized Musculoskeletal: No Tenderness to Palpation of Joints or Extremities Neurological: Cranial nerves II-XII grossly intact, Deep Tendon Reflexes 2+/4 and Symmetrical, Neuro grossly intact Psych/Mental Status: Normal Affect, Appropriate. Const oriented x3 General Appearance: cooperative HEENT head/scalp atraumatic Eyes PERRL Neck supple Lymph Lymphatic: no lymphadenopathy noted Resp normal respiratory effort and clear to auscultation bilaterally Cardio regular rate, regular rhythm, S1 normal heart sound and S2 normal heart sound GI non-tender Inspection: abdominal distention Extremity Extremity Narrative: paranychia first toe right foot Skin Skin Narrative: as above Neuro Neuro Narrative: neuro grossly intact Psych thought process normal and affect normal Assessment & Plan Assessment/Plan (1) Abdominal ascites: (2) Pancytopenia: (3) Chronic kidney disease: (4) Hypothyroidism: (5) Anemia: QUALIFIERS: Anemia type: due to chronic kidney disease Chronic kidney disease stage: on chronic dialysis Qualified Code(s): N18.6 - End stage renal disease; D63.1 - Anemia in chronic kidney disease; Z99.2 - Dependence on renal dialysis (6) 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 She is on weekly paracentesis secondary to Guevara towards decompensated cirrhosis last 1 on 10/31.. Assessment and plan 1. Abdominal pain with nausea and vomiting due to ascites from decompensated Guevara liver cirrhosis, rule out SBP with chronic hypotension: Admitted on MedSurg floor. Discussed with the radiologist for ultrasound-guided paracentesis and fluid analysis test which were ordered. Labs ordered for fluid chemistry, cell count, culture. Patient has hypotension from vasodilation, cirrhosis. On midodrine. Abdominal pain has resolved. Pancytopenia related from decompensated cirrhosis 11/06: Patient had 4.7 L acetic fluid tapped yesterday. Fluid analysis not suggestive of SBP, portal hypertensive in nature. No abdominal tenderness. 2D echo is ordered as patient has his murmur and right side of the heart. 11/07: Patient had repeat paracentesis 4.450 L. Acetic fluid culture does not show growth. . 2. Diabetes mellitus type II?patient initially n.p.o. but had breakfast. On sliding scale insulin. Glucose 119 glucose is controlled. 3. End-stage renal failure on dialysis, secondary hyperparathyroidism?patient received her dialysis; on day of admission. Flat Screen Worker consulted. Dialysis today. Midodrine 10 mg twice daily along with extra 10 mg on the days of dialysis. 4. DVT prophylaxis?SCDs due to thrombocytopenia 5. Hypothyroidism?continue oral thyroid medication if tolerating oral in the morning. 6. Pancytopenia related to decompensated cirrhosis. Platelet count is 41,000, severe thrombocytopenia 7. Other comorbidities include hypertension, history of breast cancer in remission, chronic venous insufficiency and bilateral lymphedema: Multiple comorbidities complicates the present care and expect difficult and delay recovery Living will/advanced directive/end of life care: DNR CC arrest with no intubation. Visit Charges Inpatient E&M: 91054 Subs Hosp L2
[2020-11-07 14:26] VITALS: BP 70/35; PULSE 77; RESP 16; TEMP 36.7; O2SAT 97
[2020-11-07] MEDS: Acetaminophen 325 MG Tablet 650 MG PO ×2 (14:31→23:02)
--- NOTE | 2020-11-07 14:44 | CASEMGMT ---
Addendum entered by Thelma Trinidad 11/07/20 15:47: SW updated that pt is requesting to speak to this worker. Pt states she called her PCP Dr. Bay who approves for pt to go to a SNF. SW explained that insurance doesn't look at that, insurance looks at skillable needs. SW explained skillable needs to pt. SW informed pt that this worker is waiting to hear back from [facility] to determine if they can even accept pt. SW explained once [facility] makes a determination, then it will depend on if [facility] wants to try a one time contract or not. SW explained private pay at SNF. Pt states that if [facility] is not able to accept pt, then next choice would be [facility]. SW waiting for call back from [facility]. Original Note: Social Work Note SW back in to speak with pt. Pt states her family hasn't called her back yet. SW informed pt that this worker did call [facility] and asked about possibly a one time contract. Pt agreeable to this worker send referral to [facility] to see about a One Time Contract. GUS placed a call to Thelma at [facility] and left message asking to review referral and see if they would consider a One Time contract with [facility]. GUS faxed referral to [facility]. Pt's nephew Miko is currently at [facility] and requesting to speak to this worker. Miko asked about pt going to [facility]. GUS explained to Miko that [facility] is out of network with pt's insurance. Miko states he is aware and asked about private pay. Miko states he is aware that it would be $240 a day. GUS explained that that $240 is just room and board, it wouldn't include the costs of everything else. Miko states no one can stay with pt and if pt has to go to [place] or wherever, they wouldn't be able to provide the transportation to dialysis or paracentesis. GUS informed Miko that this worker did send the referral to [facility], this worker is waiting to hear back from them regarding referral and if they would be willing to try a One Time Contract with [facility]. Miko states understanding. SW waiting for call back from [facility]. Plan: [facility] pending acceptance [facility] BUS AIDE, INSPECTOR METAL CAN
[2020-11-07 20:55] VITALS: BP 84/43; PULSE 85; RESP 18; TEMP 36.9; O2SAT 96
[2020-11-07] MEDS: traZODone 100 MG Tablet PO (21:03)
[2020-11-07] MEDS: Atorvastatin Calcium 40 MG Tablet PO (21:04)
[2020-11-08] VITALS (7 sets, daily range): BP systolic 66–82; BP diastolic 36–46; PULSE 71–91; RESP 14–18; TEMP 36.3–37.2; O2SAT 93–100
[2020-11-08] MEDS: Levothyroxine 100 MCG Tablet PO (06:30)
[2020-11-08] MEDS: Insulin Lispro 100 UNIT/ML INSULN.PEN SC (06:32)
[2020-11-08 06:41] LABS: Bedside Glucose 175 mg/dL (70-110)
[2020-11-08] MEDS: Calcitriol 0.25 MCG Capsule 0.5 MCG PO (07:55)
[2020-11-08] MEDS: SEVELAMER CARBONATE 800 MG TABLET PO ×3 (07:55→18:29)
[2020-11-08] MEDS: Midodrine HCl 5 MG Tablet 10 MG PO ×3 (07:56→21:24)
[2020-11-08] MEDS: Pantoprazole Sodium 40 MG Tablet PO ×2 (07:56→21:24)
--- NOTE | 2020-11-08 09:23 | CASEMGMT ---
Addendum entered by Thelma Trinidad 11/08/20 11:10: SW in to speak with pt. SW updated pt that [facility] is able to accept pt and will submit for a one time contract. Pt states that is One Time Contract is not approved for [facility], she would like to try to get into [facility] [place]. Pt states they have a dialysis unit in [place] as well. SW informed pt that either her family would have to likely transport her to dialysis/paracentesis or would need to pay privately for transportation. Pt states she is aware she would have to pay privately for transportation. SW informed pt that her dialysis would need to be transferred from [place] to [place]. SW informed pt that this worker will wait to hear back from [facility] and [facility] for One Time Contract and then will let pt know. Pt states understanding, agreeable to wait to hear from [facility] with One Time Contract. Original Note: Social Work Note SW placed a call to Thelma at [facility]. Thelma states [facility] is able to accept pt and has submitted for a One Time contract with [facility]. Plan: [facility] pending One Time Contract with Yomaira Trinidad RAILWAY SIGNAL OPERATOR, SUPERVISOR ALUMINUM FABRICATION
[2020-11-08] MEDS: Acetaminophen 325 MG Tablet 650 MG PO ×4 (09:25→23:46)
[2020-11-08] MEDS: Menthol/Lanolin/Calamine/Znox 113 GM Tube 1 APPLIC TOPICAL ×2 (09:26→23:39)
--- NOTE | 2020-11-08 14:36 | CASEMGMT ---
Social Work Note GUS received call from Thelma at [facility] stating [facility] got back to [facility] and regardless if pt gets approved for a One Time Contract or not, pt will have a copay of $180 daily. Pt will have a copay if pt goes to any SNF that is out of network with her insurance. If pt goes to a SNF that is in network with [facility], pt will not have a copay at all days 1-20. [facility] had told [facility] that there is a SNF within 25 miles of pt's home address that does on site dialysis that is in network with [facility] and that facility is [facility] in [place]. [facility] also told [facility] that they will not have an answer for One Time Contract until Wednesday and [facility] is already asking for updated clinicals from the weekend. GUS informed Thelma that this worker will speak to pt. SW in to speak with pt. SW informed pt that One Time Contract is still pending and a determination will not be made until Wednesday. GUS explained that even if One Time Contract is approved for [facility], pt will have a copay of $180 a day whereas if pt goes to a SNF that is in network with [facility], pt will not have a copay for days 1-20. Pt states her next choice for SNF is [facility]. Pt states she is aware that [facility] doesn't have on site dialysis and she would need to pay for transportation to and from dialysis and paracentesis. SW informed pt that there is a [facility] in [place] (which per her insurance is 25 miles within her home address) that takes her insurance and offers on site dialysis. Pt states [place] is too far and she will not go to [place]. SW spent much time with pt talking about the different options of going to [facility] that offers on site dialysis and having a copay of $180 a day vs going to [facility] and not having a copay for days 1-20 but being financially responsible for transportation to and from dialysis and paracentesis. GUS explained that pt would need to transfer her dialysis from [facility] in [place] to [facility] in [place] and then once pt is discharged home, dialysis would then need to be transferred back to [facility] in [place]. Pt states she understands, would like to stay with the plan of [facility] pending One Time Contract with [facility]. GUS informed pt that she will be at [facility] through the weekend. GUS did place a call to [facility] samara Oliveira to inquire about Dialysis pt's. GUS updated that Mara handles their Dialysis pt's and questions, but she is not back in till Wednesday. GUS encouraged to call back Wednesday to speak to Amra. GUS placed a call to Thelma at [facility] and updated her that pt would like to stay with the plan of [facility] pending One Time Contract. Thelma states she will need updated clinicals on Wednesday for pre-cert. Plan: [facility] pending One Time Contract with [employer]. Thelma Trinidad INDUSTRIAL INSULATOR, RULING MACHINE SET UP OPERATOR
--- NOTE | 2020-11-08 15:13 | PN.HOSP_ITS ---
Subjective Subjective No acute issues. Patient wants to go SNF. Blood pressure chronically low, 72/43, 81/46 but patient does not have dizziness or symptoms of hypotension. Objective Data Objective Data Vital Signs: Vital Signs Temp Pulse Resp BP Pulse Ox 97.8 F 71 16 72/43 L 93 11/08/20 13:29 11/08/20 13:29 11/08/20 13:29 11/08/20 13:29 11/08/20 15:07 Oxygen Delivery Method [5] Room Air Oxygen Delivery Method [4] Room Air Oxygen Delivery Method [3] Room Air Oxygen Delivery Method [2] Room Air Oxygen Delivery Method [1 ( Room Air Initial Baseline)] Oxygen Delivery Method Room Air Weight: 166 lb 7.184 oz Body Mass Index (BMI) 32.8 Intake & Output: Intake and Output for Last 24 Hours 11/06/20 11/07/20 11/08/20 23:59 23:59 23:59 Intake Total 290 / 290 580 / 580 0 / 0 Output Total 1000 / 1000 Balance -710 / -710 580 / 580 0 / 0 Lab / Micro Data Result Diagrams: 11/07/20 05:50 11/07/20 05:50 Labs: Laboratory Results - last 24 hr 11/08/20 06:29 POC Glucose 175 H Micro: Microbiology 11/05/20 15:45 Fluid - Paracentesis (Abd) Gram Stain - Final 11/05/20 15:45 Fluid - Paracentesis (Abd) Body Fluid Culture - Preliminary No growth-Final to follow 11/05/20 15:45 Fluid - Paracentesis (Abd) Anaerobic Culture - Preliminary No growth in 48 hours. Physical Exam Narrative General: Alert, Oriented x3, Cooperative HEENT: Atraumatic, PERRLA, EOMI, Normocephalic Oral: No Gingival or Mucosal Lesions/ Ulcerations Neck: Supple, No JVD, Negative Carotid Bruits. Mediport on right subclavian region Lungs: Air entry diminished in bilateral lung bases. No crepitation/rhonchi Cardiovascular: muffled heart sounds. Regular rate and rhythm, Normal S1, Normal S2, injection systolic murmur over second ICS. Abdomen: Ascites larger than yesterday. Bowel sounds sluggish. Nontender. Soft. Umbilical hernia reducible. : On hemodialysis no renal angle tenderness. No suprapubic tenderness. Extremities: Bilateral lower extremity, indurated edema, Capillary Refill Less than 3 Seconds Skin: Small scab ulcer on the right great toe nail, lateralized Musculoskeletal: No Tenderness to Palpation of Joints or Extremities Neurological: Cranial nerves II-XII grossly intact, Deep Tendon Reflexes 2+/4 and Symmetrical, Neuro grossly intact Psych/Mental Status: Normal Affect, Appropriate. Const General Appearance: cooperative Lymph Lymphatic: no lymphadenopathy noted GI Inspection: abdominal distention Extremity Extremity Narrative: paranychia first toe right foot Skin Skin Narrative: as above Neuro Neuro Narrative: neuro grossly intact Psych thought process normal Assessment & Plan Assessment/Plan (1) Abdominal ascites: (2) Pancytopenia: (3) Chronic kidney disease: (4) Hypothyroidism: (5) Anemia: QUALIFIERS: Anemia type: due to chronic kidney disease Chronic kidney disease stage: on chronic dialysis Qualified Code(s): N18.6 - End stage renal disease; D63.1 - Anemia in chronic kidney disease; Z99.2 - Dependence on renal dialysis (6) 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 She is on weekly paracentesis secondary to Guevara towards decompensated cirrhosis last 1 on 10/31.. Assessment and plan 1. Abdominal pain with nausea and vomiting due to ascites from decompensated Guevara liver cirrhosis, rule out SBP with chronic hypotension: Admitted on MedSur floor. Discussed with the radiologist for ultrasound-guided paracentesis and fluid analysis test which were ordered. Labs ordered for fluid chemistry, cell count, culture. Patient has hypotension from vasodilation, cirrhosis. On mid odrine. Abdominal pain has resolved. Pancytopenia related from decompensated cirrhosis 11/06: Patient had 4.7 L acetic fluid tapped yesterday. Fluid analysis not suggestive of SBP, portal hypertensive in nature. No abdominal tenderness. 2D echo is ordered as patient has his murmur and right side of the heart. 11/07: Patient had repeat paracentesis 4.450 L. Acetic fluid culture does not show growth. 11/08: Thrombocytopenia. Acetic fluid did not show growth. Occult blood positive. 2. Diabetes mellitus type II?patient initially n.p.o. but had breakfast. On sliding scale insulin. Glucose 119 glucose is controlled. 3. End-stage renal failure on dialysis, secondary hyperparathyroidism?patient received her dialysis; on day of admission. Waiter/Waitress First Class consulted. Dialysis today. Midodrine 10 mg twice daily along with extra 10 mg on the days of dialysis. 4. DVT prophylaxis?SCDs due to thrombocytopenia 5. Hypothyroidism?continue oral thyroid medication if tolerating oral in the morning. 6. Pancytopenia related to decompensated cirrhosis. Platelet count is 41,000, severe thrombocytopenia 7. Other comorbidities include hypertension, history of breast cancer in remission, chronic venous insufficiency and bilateral lymphedema: Multiple comorbidities complicates the present care and expect difficult and delay recovery Living will/advanced directive/end of life care: DNR CC arrest with no intubation. Visit Charges Inpatient E&M: 06050 Subs Hosp L2
[2020-11-08] MEDS: Albumin Human 25% (100 mL) 25 GM/100 ML BAG IV (16:50)
[2020-11-08] MEDS: Epoetin Alfa epbx 10,000 UNITS/ML 7500 UNIT IV (16:56)
--- NOTE | 2020-11-08 17:53 | PCM.PN.REN ---
Subjective Subjective Seen on dialysis tolerating well but cannot remove fluid because of the low blood pressure. Asymptomatic denies nausea vomiting headache dizziness. Objective Data Objective Data Vital Signs: Vital Signs Temp Pulse Resp BP Pulse Ox 97.8 F 71 16 72/43 L 93 11/08/20 13:29 11/08/20 13:29 11/08/20 13:29 11/08/20 13:29 11/08/20 15:07 Oxygen Delivery Method [5] Room Air Oxygen Delivery Method [4] Room Air Oxygen Delivery Method [3] Room Air Oxygen Delivery Method [2] Room Air Oxygen Delivery Method [1 ( Room Air Initial Baseline)] Oxygen Delivery Method Room Air Weight: 75.5 kg Body Mass Index (BMI) 32.8 Intake & Output: Intake and Output for Last 24 Hours 11/06/20 11/07/20 11/08/20 23:59 23:59 23:59 Intake Total 290 / 290 580 / 580 0 / 0 Output Total 1000 / 1000 Balance -710 / -710 580 / 580 0 / 0 Lab / Micro Data Result Diagrams: 11/07/20 05:50 11/07/20 05:50 Labs: Laboratory Results - last 24 hr 11/08/20 06:29 POC Glucose 175 H Micro: Microbiology 11/05/20 15:45 Fluid - Paracentesis (Abd) Gram Stain - Final 11/05/20 15:45 Fluid - Paracentesis (Abd) Body Fluid Culture - Preliminary No growth-Final to follow 11/05/20 15:45 Fluid - Paracentesis (Abd) Anaerobic Culture - Preliminary No growth in 48 hours. Physical Exam Const alert and no apparent distress General Appearance: comfortable HEENT normocephalic Neck General: normal visual inspection and trachea midline Resp normal respiratory effort and clear to auscultation bilaterally Cardio regular rate, regular rhythm, S1 normal heart sound and S2 normal heart sound GI soft to palpation and non-tender Neuro Sensorium / Orientation: awake and alert Assessment & Plan Assessment/Plan (1) ESRD (end stage renal disease): PLAN: Continue Wednesday dialysis.Seen on HD UF on hold because of low bp but asymptomatic. (2) Secondary renal hyperparathyroidism: PLAN: Continue binders (3) Anemia: QUALIFIERS: Anemia type: due to chronic kidney disease Chronic kidney disease stage: on chronic dialysis Qualified Code(s): N18.6 - End stage renal disease; D63.1 - Anemia in chronic kidney disease; Z99.2 - Dependence on renal dialysis PLAN: Start CITLALI if prolonged hospital stay (4) Abdominal ascites: QUALIFIERS: Ascites type: other type Qualified Code(s): R18.8 - Other ascites PLAN: Secondary to GUEVARA s/p paracentesis Per primary team. Awaiting rehab placement.
[2020-11-08] MEDS: Heparin 10,000 UNITS/10 ML Vial IV (18:06)
--- NOTE | 2020-11-08 18:14 | NURSING ---
BP HAS BEEN IN THE 50'S THROUGHOUT DIALYSIS. PT RECEIVED ALBUMIN 25GM. +350 IN FLUIDS AFTER DIALYSIS. LAST BP 66/37. DR STRE[address] NOTIFIED VIA TEXT.
--- NOTE | 2020-11-08 18:30 | DIALYSIS ---
HD x 3.5 hours complete. Hypotensive during tx. Pt was asymptomatic throughout tx. Albumin 25gm was given as ordered. Fluid-350ml positive post tx. Dr. Max is aware. Ran on 2k bath. Used left chest wall dialysis catheter. Lumens closed with heparin per fill volume. Caps placed. Dressing is dry and intact. Epogen given as ordered. Report was given to EVAN Arita.
[2020-11-08] MEDS: Polyethylene Glycol 3350 17 GM PACKET PO (21:24)
[2020-11-08] MEDS: Atorvastatin Calcium 40 MG Tablet PO (21:24)
[2020-11-08] MEDS: traZODone 100 MG Tablet PO (21:24)
[2020-11-08] MEDS: Senna/Docusate Sodium 1 Tablet 2 TABLET PO (21:24)
[2020-11-08] MEDS: hydrOXYzine PAM 25 MG Capsule PO (23:46)
[2020-11-09] VITALS (8 sets, daily range): BP systolic 70–90; BP diastolic 36–48; PULSE 70–95; RESP 16–18; TEMP 36.6–36.8; O2SAT 97–100
[2020-11-09] MEDS: Insulin Lispro 100 UNIT/ML INSULN.PEN SC (06:23)
[2020-11-09] MEDS: Levothyroxine 100 MCG Tablet PO (06:23)
[2020-11-09] MEDS: Acetaminophen 325 MG Tablet 650 MG PO ×3 (06:26→21:09)
[2020-11-09 06:35] LABS: Bedside Glucose 155 mg/dL (70-110)
[2020-11-09 06:57] LABS: Absolute Lymphocyte Count 0.35 X10^3/uL (0.83-4.51); Absolute Neutrophil Count 1.2 X10^3/uL (2.0-7.7); Basophil# 0.02 X10^3/uL; Basophil% 1.1 % (0-1); Eosinophil# 0.06 X10^3/uL; Eosinophils% 3.3 % (0-5); Hematocrit 27.8 % (37-47); Hemoglobin 8.7 g/dL (12.0-15.0); Lymphocyte # 0.35 X10^3/ul (0.83-4.51); Lymphocyte % 19.2 % (19-41); Mean Corp Hgb Conc 31.3 g/dL (32-36); Mean Corpuscular Hgb 32.7 pg (27.0-32.0); Mean Corpuscular Volume 104.5 fL (81-99); Mean Platelet Vol. 11.8 fl (6.2-12.0); NRBC Flagged by Analyzer 0 % (0-5); Neutrophil # 1.19 X10^3/uL (2.7-7.7); Neutrophil % 65.4 % (47-70); POSITIVE COUNT YES; POSITIVE DIFFERENTIAL YES; POSITIVE MORPHOLOGY YES; RBC Distribution Width CV 19.1 % (11.6-14.6); RBC Distribution Width SD 71.3 fl (35.1-43.9); Red Blood Count 2.66 M/mm3 (4.2-5.4); White Blood Count 1.8 K/mm3 (4.4-11.0)
[2020-11-09 06:58] LABS: Differential Indicated SCAN CRITERIA MET
[2020-11-09 07:01] LABS: Platelet Count 36 K/mm3 (150-450)
[2020-11-09 07:34] LABS: Anisocytosis 2+; Hypochromasia 1+; Platelet Estimate MKD DEC (ADEQ)
[2020-11-09] MEDS: SEVELAMER CARBONATE 800 MG TABLET PO ×3 (08:55→18:05)
[2020-11-09] MEDS: Pantoprazole Sodium 40 MG Tablet PO ×2 (08:56→21:44)
[2020-11-09] MEDS: Senna/Docusate Sodium 1 Tablet 2 TABLET PO (08:56)
[2020-11-09] MEDS: Polyethylene Glycol 3350 17 GM PACKET PO (08:56)
[2020-11-09] MEDS: Midodrine HCl 5 MG Tablet 10 MG PO ×2 (11:46→18:05)
[2020-11-09] MEDS: Menthol/Lanolin/Calamine/Znox 113 GM Tube 1 APPLIC TOPICAL ×2 (11:47→21:41)
[2020-11-09] MEDS: Lactulose 20 GM/30 ML UDC PO ×2 (11:48→16:34)
--- NOTE | 2020-11-09 14:52 | PN.HOSP_ITS ---
Subjective Subjective Patient seems little confused today with difficulty in speaking in sentences and slurring. I suspect more hepatic encephalopathy but not described as it is more nonfocal and generalized. Pancytopenia with severe thrombocytopenia. Objective Data Objective Data Vital Signs: Vital Signs Temp Pulse Resp BP Pulse Ox 97.8 F 90 18 77/44 L 98 11/09/20 13:50 11/09/20 13:56 11/09/20 13:50 11/09/20 13:50 11/09/20 13:50 Oxygen Delivery Method [5] Room Air Oxygen Delivery Method [4] Room Air Oxygen Delivery Method [3] Room Air Oxygen Delivery Method [2] Room Air Oxygen Delivery Method [1 ( Room Air Initial Baseline)] Oxygen Delivery Method Room Air Weight: 169 lb 1.513 oz Body Mass Index (BMI) 32.8 Intake & Output: Intake and Output for Last 24 Hours 11/07/20 11/08/20 11/09/20 23:59 23:59 23:59 Intake Total 580 / 580 340 / 340 Output Total 0 / 0 0 / 0 Balance 580 / 580 340 / 340 0 / 0 Lab / Micro Data Result Diagrams: 11/09/20 05:45 11/07/20 05:50 Labs: Laboratory Results - last 24 hr 11/09/20 11/09/20 05:45 06:21 WBC 1.8 L RBC 2.66 L Hgb 8.7 L Hct 27.8 L MCV 104.5 H MCH 32.7 H MCHC 31.3 L RDW Std Deviation 71.3 H RDW Coeff of Mary Alice 19.1 H Plt Count 36 L* MPV 11.8 Immature Gran % (Auto) 0.000 Neut % (Auto) 65.4 Lymph % (Auto) 19.2 [place] % (Auto) 11.0 H Eos % (Auto) 3.3 Baso % (Auto) 1.1 H Absolute Neuts (auto) 1.2 L Absolute Lymphs (auto) 0.35 L Nucleated RBC % 0 Platelet Estimate MKD DEC Hypochromasia 1+ Anisocytosis 2+ POC Glucose 155 H Micro: Microbiology 11/05/20 15:45 Fluid - Paracentesis (Abd) Gram Stain - Final 11/05/20 15:45 Fluid - Paracentesis (Abd) Body Fluid Culture - Final No growth aerobically. 11/05/20 15:45 Fluid - Paracentesis (Abd) Anaerobic Culture - Preliminary No growth in 48 hours. Physical Exam Narrative General: Confused but oriented x3, lethargic. HEENT: Atraumatic, PERRLA, EOMI, Normocephalic, scleral icterus present. Oral: No Gingival or Mucosal Lesions/ Ulcerations Neck: Supple, No JVD, Negative Carotid Bruits.? Mediport on right subclavian region Lungs:? Air entry diminished in bilateral lung bases.? No crepitation/rhonchi Cardiovascular:? muffled heart sounds. Regular rate and rhythm, Normal S1, Perla l S2, ejection systolic murmur over second ICS. Abdomen: Ascites large..? Bowel sounds present.? Nontender.? Soft.? Umbilical hernia reducible. : On hemodialysis no renal angle tenderness.? No suprapubic tenderness. Extremities: Bilateral lower extremity, indurated edema, Capillary Refill Less than 3 Seconds Skin: Small scab ulcer on the right great toe nail, lateralized Musculoskeletal: No Tenderness to Palpation of Joints or Extremities Neurological: Cranial nerves II-XII grossly intact, Deep Tendon Reflexes 2+/4 and Symmetrical, Neuro grossly intact Psych/Mental Status: Flat affect. 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 She is on weekly paracentesis secondary to Guevara towards decompensated cirrhosis last 1 on 10/31.. Assessment and plan 1. Abdominal pain with nausea and vomiting due to ascites from decompensated Guevara liver cirrhosis, rule out SBP with chronic hypotension: Admitted on MedSurg floor. Discussed with the radiologist for ultrasound-guided paracentesis and fluid analysis test which were ordered. Labs ordered for fluid chemistry, cell count, culture. Patient has hypotension from vasodilation, cirrhosis. On midodrine. Abdominal pain has resolved. Pancytopenia related from decompensated cirrhosis 11/06: Patient had 4.7 L acetic fluid tapped yesterday. Fluid analysis not suggestive of SBP, portal hypertensive in nature. No abdominal tenderness. 2D echo is ordered as patient has his murmur and right side of the heart. 11/07: Patient had repeat paracentesis 4.450 L. Acetic fluid culture does not show growth. 11/08: Thrombocytopenia. Ascitic fluid did not show growth. Occult blood positive. 11/09: Pancytopenia, severe with decrease in all 3 cell lines, progressively worsening. Hypotension, midodrine increased to 10 mg 3 times daily. 2. Diabetes mellitus type II?patient initially n.p.o. but had breakfast. On sliding scale insulin. Glucose 119 glucose is controlled. 3. End-stage renal failure on dialysis, secondary hyperparathyroidism?patient received her dialysis; on day of admission. Tube Teller consulted. Dialysis today. Midodrine 10 mg twice daily along with extra 10 mg on the days of dialysis. 4. DVT prophylaxis?SCDs due to thrombocytopenia 5. Hypothyroidism?continue oral thyroid medication if tolerating oral in the morning. 6. Pancytopenia related to decompensated cirrhosis. Platelet count is 41,000, severe thrombocytopenia 7. Other comorbidities include hypertension, history of breast cancer in remission, chronic venous insufficiency and bilateral lymphedema: Multiple comorbidities complicates the present care and expect difficult and delay recovery Living will/advanced directive/end of life care: DNR CC arrest with no intubation. Poor prognosis. Visit Charges Inpatient E&M: 72139 Subs Hosp L2
--- NOTE | 2020-11-09 19:57 | PN.RENAL_ITS ---
Subjective Subjective Following for end-stage renal disease. The patient denies chest pain, shortness of breath, nausea or vomiting. She had a successful bowel movement today. Objective Data Objective Data Vital Signs: Vital Signs Temp Pulse Resp BP Pulse Ox 97.9 F 88 18 90/44 L 99 11/09/20 16:52 11/09/20 16:52 11/09/20 16:52 11/09/20 16:52 11/09/20 16:52 Oxygen Delivery Method [5] Room Air Oxygen Delivery Method [4] Room Air Oxygen Delivery Method [3] Room Air Oxygen Delivery Method [2] Room Air Oxygen Delivery Method [1 ( Room Air Initial Baseline)] Oxygen Delivery Method Room Air Weight: 76.7 kg Body Mass Index (BMI) 32.8 Intake & Output: Intake and Output for Last 24 Hours 11/07/20 11/08/20 11/09/20 23:59 23:59 23:59 Intake Total 580 / 580 340 / 340 Output Total 0 / 0 0 / 0 Balance 580 / 580 340 / 340 0 / 0 Lab / Micro Data Result Diagrams: 11/09/20 05:45 11/07/20 05:50 Labs: Laboratory Results - last 24 hr 11/09/20 11/09/20 05:45 06:21 WBC 1.8 L RBC 2.66 L Hgb 8.7 L Hct 27.8 L MCV 104.5 H MCH 32.7 H MCHC 31.3 L RDW Std Deviation 71.3 H RDW Coeff of Mary Alice 19.1 H Plt Count 36 L* MPV 11.8 Immature Gran % (Auto) 0.000 Neut % (Auto) 65.4 Lymph % (Auto) 19.2 [place] % (Auto) 11.0 H Eos % (Auto) 3.3 Baso % (Auto) 1.1 H Absolute Neuts (auto) 1.2 L Absolute Lymphs (auto) 0.35 L Nucleated RBC % 0 Platelet Estimate MKD DEC Hypochromasia 1+ Anisocytosis 2+ POC Glucose 155 H Micro: Microbiology 11/05/20 15:45 Fluid - Paracentesis (Abd) Gram Stain - Final 11/05/20 15:45 Fluid - Paracentesis (Abd) Body Fluid Culture - Final No growth aerobically. 11/05/20 15:45 Fluid - Paracentesis (Abd) Anaerobic Culture - Preliminary No growth in 48 hours. Physical Exam Const alert and no apparent distress General Appearance: comfortable HEENT normocephalic Neck General: normal visual inspection and trachea midline Resp normal respiratory effort and clear to auscultation bilaterally Cardio regular rate, regular rhythm, S1 normal heart sound and S2 normal heart sound GI soft to palpation and non-tender Neuro Sensorium / Orientation: awake and alert Assessment & Plan Assessment/Plan (1) ESRD (end stage renal disease): PLAN: Continue Wednesday dialysis. No need for dialysis today. Next dialysis is scheduled for 11/11/2020. (2) Secondary renal hyperparathyroidism: PLAN: Continue calcitriol for secondary hyperparathyroidism. Continue sevelamer with meals for phosphorus binding. Check calcium and phosphorus level tomorrow. (3) Anemia: QUALIFIERS: Anemia type: due to chronic kidney disease Chronic kidney disease stage: on chronic dialysis Qualified Code(s): N18.6 - End stage renal disease; D63.1 - Anemia in chronic kidney disease; Z99.2 - Dependence on renal dialysis PLAN: Start CITLALI if prolonged hospital stay (4) Abdominal ascites: QUALIFIERS: Ascites type: other type Qualified Code(s): R18.8 - Other ascites PLAN: Secondary to GUEVARA s/p paracentesis Per primary team. Awaiting rehab placement.
[2020-11-09] MEDS: traZODone 100 MG Tablet PO (21:43)
[2020-11-09] MEDS: Atorvastatin Calcium 40 MG Tablet PO (21:43)
[2020-11-09] MEDS: HYDROmorphone 0.5 MG/0.5 ML SYRINGE IV (22:10)
[2020-11-09] MEDS: 0.9% Saline Lock 10 ML Syringe IV ×2 (22:10→22:30)
[2020-11-09] MEDS: Ondansetron 4 MG/2 ML Vial IV (22:30)
[2020-11-10] VITALS (7 sets, daily range): BP systolic 87–106; BP diastolic 49–68; PULSE 93–117; RESP 18; TEMP 36.6–37.1; O2SAT 95–98
[2020-11-10] MEDS: Levothyroxine 100 MCG Tablet PO (05:51)
[2020-11-10] MEDS: Acetaminophen 325 MG Tablet 650 MG PO (06:42)
[2020-11-10 06:50] LABS: Absolute Lymphocyte Count 0.35 X10^3/uL (0.83-4.51); Absolute Neutrophil Count 1.9 X10^3/uL (2.0-7.7); Basophil# 0.03 X10^3/uL; Basophil% 1.1 % (0-1); Eosinophil# 0.06 X10^3/uL; Eosinophils% 2.3 % (0-5); Hemoglobin 9.3 g/dL (12.0-15.0); Lymphocyte # 0.35 X10^3/ul (0.83-4.51); Lymphocyte % 13.3 % (19-41); Mean Corpuscular Hgb 32.3 pg (27.0-32.0); Mean Corpuscular Volume 104.2 fL (81-99); Mean Platelet Vol. 11.1 fl (6.2-12.0); Monocyte# 0.27 X10^3/uL; Monocyte% 10.2 % (0-10); NRBC Flagged by Analyzer 0 % (0-5); Neutrophil # 1.92 X10^3/uL (2.7-7.7); Neutrophil % 72.7 % (47-70); POSITIVE COUNT YES; POSITIVE DIFFERENTIAL YES; POSITIVE MORPHOLOGY YES; RBC Distribution Width CV 19.3 % (11.6-14.6); Red Blood Count 2.88 M/mm3 (4.2-5.4); White Blood Count 2.6 K/mm3 (4.4-11.0)
[2020-11-10 06:56] LABS: Differential Indicated SCAN CRITERIA MET; Platelet Count 50 K/mm3 (150-450)
[2020-11-10 07:06] LABS: Bedside Glucose 142 mg/dL (70-110)
[2020-11-10 07:16] LABS: Platelet Estimate MKD DEC (ADEQ)
[2020-11-10 07:45] LABS: Albumin, Serum 2.3 g/dL (3.2-5.0); BUN 32 mg/dL (7-18); BUN/Creat Ratio 7.2 RATIO (10-20); Calcium,Total 8.9 mg/dL (8.5-10.1); Chloride 102 mmol/L (98-107); Creatinine, Serum 4.43 mg/dL (0.55-1.02); EST Glomerular Filtration Rate 10 mL/min (>60); Est Glom Filt Rate - Afr Amer 13 mL/min (>60); Estimated Creatinine Clearance 8.81 ml/min; Glucose 157 mg/dL (74-106); Phosphorus 5.3 mg/dL (2.5-4.9); Potassium 4.6 mmol/L (3.5-5.1); Sodium Level 135 mmol/L (136-145)
[2020-11-10] MEDS: 0.9% Saline Lock 10 ML Syringe IV (08:02)
[2020-11-10] MEDS: Menthol/Lanolin/Calamine/Znox 113 GM Tube 1 APPLIC TOPICAL ×2 (08:02→22:03)
[2020-11-10] MEDS: HYDROmorphone 0.5 MG/0.5 ML SYRINGE IV (08:02)
[2020-11-10] MEDS: Midodrine HCl 5 MG Tablet 10 MG PO ×3 (08:08→17:38)
[2020-11-10] MEDS: SEVELAMER CARBONATE 800 MG TABLET PO ×3 (08:08→17:38)
[2020-11-10] MEDS: Senna/Docusate Sodium 1 Tablet 2 TABLET PO ×2 (09:35→22:06)
[2020-11-10] MEDS: Polyethylene Glycol 3350 17 GM PACKET PO (09:35)
[2020-11-10] MEDS: Pantoprazole Sodium 40 MG Tablet PO ×2 (09:35→22:06)
--- NOTE | 2020-11-10 11:22 | PCM.PN.HOSP ---
Subjective Subjective Patient had good bowel movement to yesterday. Patient looks more alert and awake and responding appropriately. Objective Data Objective Data Vital Signs: Vital Signs Temp Pulse Resp BP Pulse Ox 97.9 F 100 18 87/49 L 95 11/10/20 07:50 11/10/20 09:24 11/10/20 07:50 11/10/20 07:50 11/10/20 07:50 Oxygen Delivery Method [5] Room Air Oxygen Delivery Method [4] Room Air Oxygen Delivery Method [3] Room Air Oxygen Delivery Method [2] Room Air Oxygen Delivery Method [1 ( Room Air Initial Baseline)] Oxygen Delivery Method Nasal Cannula Weight: 169 lb 1.513 oz Body Mass Index (BMI) 32.8 Intake & Output: Intake and Output for Last 24 Hours 11/08/20 11/09/20 11/10/20 23:59 23:59 23:59 Intake Total 340 / 340 125 / 125 100 / 100 Output Total 0 / 0 0 / 0 0 / 0 Balance 340 / 340 125 / 125 100 / 100 Lab / Micro Data Result Diagrams: 11/10/20 05:52 11/10/20 05:52 Labs: Laboratory Results - last 24 hr 11/09/20 11/10/20 11/10/20 05:45 05:52 05:52 WBC 2.6 L RBC 2.88 L Hgb 9.3 L Hct 30.0 L MCV 104.2 H MCH 32.3 H MCHC 31.0 L RDW Std Deviation 73.0 H RDW Coeff of Mary Alice 19.3 H Plt Count 50 L* MPV 11.1 Immature Gran % (Auto) 0.400 Neut % (Auto) 72.7 H Lymph % (Auto) 13.3 L [place] % (Auto) 10.2 H Eos % (Auto) 2.3 Baso % (Auto) 1.1 H Absolute Neuts (auto) 1.9 L Absolute Lymphs (auto) 0.35 L Nucleated RBC % 0 Diff Path Review October foll October foll Platelet Estimate MKD DEC Sodium 135 L Potassium 4.6 Chloride 102 Carbon Dioxide 25.0 BUN 32 H Creatinine 4.43 H Estim Creat Clear Calc 8.81 Est GFR (MDRD) Af Amer 13 L Est GFR (MDRD) Non-Af 10 L BUN/Creatinine Ratio 7.2 L Glucose 157 H Calcium 8.9 Phosphorus 5.3 H Albumin 2.3 L POC Glucose 11/10/20 06:39 WBC RBC Hgb Hct MCV MCH MCHC RDW Std Deviation RDW Coeff of Mary Alice Plt Count MPV Immature Gran % (Auto) Neut % (Auto) Lymph % (Auto) [place] % (Auto) Eos % (Auto) Baso % (Auto) Absolute Neuts (auto) Absolute Lymphs (auto) Nucleated RBC % Diff Path Review Platelet Estimate Sodium Potassium Chloride Carbon Dioxide BUN Creatinine Estim Creat Clear Calc Est GFR (MDRD) Af Amer Est GFR (MDRD) Non-Af BUN/Creatinine Ratio Glucose Calcium Phosphorus Albumin POC Glucose 142 H Micro: Microbiology 11/05/20 15:45 Fluid - Paracentesis (Abd) Gram Stain - Final 11/05/20 15:45 Fluid - Paracentesis (Abd) Body Fluid Culture - Final No growth aerobically. 11/05/20 15:45 Fluid - Paracentesis (Abd) Anaerobic Culture - Preliminary No growth in 48 hours. Physical Exam Narrative General: Alert, awake and oriented x3. HEENT: Atraumatic, PERRLA, EOMI, Normocephalic, scleral icterus present. Oral: No Gingival or Mucosal Lesions/ Ulcerations Neck: Supple, No JVD, Negative Carotid Bruits.? Mediport on right subclavian region Lungs:? Air entry diminished in bilateral lung bases.? No crepitation/rhonchi Cardiovascular:? muffled heart sounds. Regular rate and rhythm, Normal S1, Normal S2, ejection systolic murmur over second ICS. Abdomen: Ascites large.? Bowel sounds present.? Nontender.? Soft.? Umbilical hernia reducible. : On hemodialysis no renal angle tenderness.? No suprapubic tenderness. Extremities: Bilateral lower extremity, indurated edema, Capillary Refill Less than 3 Seconds Skin: Small scab ulcer on the right great toe nail, on lateral aspect, dressing changed. Mild bruise on upper and lower extremities with ecchymosis. Musculoskeletal: No Tenderness to Palpation of Joints or Extremities Neurological: Cranial nerves II-XII grossly intact, Deep Tendon Reflexes 2+/4 and Symmetrical, Neuro grossly intact Psych/Mental Status: Flat affect. Assessment & Plan Assessment/Plan (1) Abdominal ascites: QUALIFIERS: Ascites type: other type Qualified Code(s): R18.8 - Other ascites (2) Pancytopenia: (3) Chronic kidney disease: (4) Hypothyroidism: (5) Anemia: QUALIFIERS: Anemia type: due to chronic kidney disease Chronic kidney disease stage: on chronic dialysis Qualified Code(s): N18.6 - End stage renal disease; D63.1 - Anemia in chronic kidney disease; Z99.2 - Dependence on renal dialysis (6) Liver cirrhosis secondary to GUEVARA: (7) Diabetes: QUALIFIERS: Diabetes mellitus type: type 2 Diabetes mellitus exterminator termite insulin use: with mcfp use Diabetes mellitus complication status: with hyperglycemia Qualified Code(s): E11.65 - Type 2 diabetes mellitus with hyperglycemia; Z79.4 - care home (current) use of insulin (8) History of breast cancer: PLAN: This is a 75-year-old female is being admitted with abdominal pain nausea and vomiting after dialysis. She is on weekly paracentesis secondary to Guevara towards decompensated cirrhosis last 1 on 10/31.. Assessment and plan 1. Abdominal pain with nausea and vomiting due to ascites from decompensated Guevara liver cirrhosis, hepatic encephalopathy, jaundice, SBP ruled out. Chronic hypotension: [facility] Discussed with the radiologist for ultrasound-guided paracentesis and fluid analysis test which were ordered. Labs ordered for fluid chemistry, cell count, culture. Patient has hypotension from vasodilation, cirrhosis. On midodrine. Abdominal pain has resolved. Pancytopenia related from decompensated cirrhosis 11/06: Patient had 4.7 L acetic fluid tapped yesterday. Fluid analysis not suggestive of SBP, portal hypertensive in nature. No abdominal tenderness. 2D echo is ordered as patient has his murmur and right side of the heart. 11/07: Patient had repeat paracentesis 4.450 L. Acetic fluid culture does not show growth. 11/08: Thrombocytopenia. Ascitic fluid did not show growth. Occult blood positive. 11/09: Pancytopenia, severe with decrease in all 3 cell lines, progressively worsening. Hypotension, midodrine increased to 10 mg 3 times daily. 11/10: CBC profile improved today. Platelet count 50,000. Continue lactulose as ordered. 2. Diabetes mellitus type II?patient initially n.p.o. but had breakfast. On sliding scale insulin. Glucose 119 glucose is controlled. 3. End-stage renal failure on dialysis, secondary hyperparathyroidism?patient received her dialysis; on day of admission. Broadcast Operations Engineer consulted. Dialysis today. Midodrine 10 mg twice daily along with extra 10 mg on the days of dialysis. 11/10: Patient requested to culture the dialysis time to about 1-1/2 hours. 4. DVT prophylaxis?SCDs due to thrombocytopenia 5. Hypothyroidism?continue oral thyroid medication if tolerating oral in the morning. 6. Pancytopenia related to decompensated cirrhosis. 7. Other comorbidities include hypertension, history of breast cancer in remission, chronic venous insufficiency and bilateral lymphedema: Multiple comorbidities complicates the present care and expect difficult and delay recovery Living will/advanced directive/end of life care: DNR CC arrest with no intubation. Poor prognosis. Visit Charges Inpatient E&M: 94264 Subs Hosp L2
[2020-11-10] MEDS: Lactulose 20 GM/30 ML UDC PO ×2 (14:17→22:07)
[2020-11-10] MEDS: LORazepam 0.5 MG Tablet PO (17:47)
--- NOTE | 2020-11-10 21:17 | PCM.PN.REN ---
Subjective Subjective Following for end-stage renal disease. The patient denies chest pain, shortness of breath, nausea or vomiting. No new complaints. Objective Data Objective Data Vital Signs: Vital Signs Temp Pulse Resp BP Pulse Ox 98.0 F 96 18 104/68 96 11/10/20 17:42 11/10/20 17:42 11/10/20 17:42 11/10/20 17:42 11/10/20 17:42 Oxygen Delivery Method [5] Room Air Oxygen Delivery Method [4] Room Air Oxygen Delivery Method [3] Room Air Oxygen Delivery Method [2] Room Air Oxygen Delivery Method [1 ( Room Air Initial Baseline)] Oxygen Delivery Method Room Air Weight: 76.7 kg Body Mass Index (BMI) 32.8 Intake & Output: Intake and Output for Last 24 Hours 11/08/20 11/09/20 11/10/20 23:59 23:59 23:59 Intake Total 340 / 340 125 / 125 100 / 100 Output Total 0 / 0 0 / 0 0 / 0 Balance 340 / 340 125 / 125 100 / 100 Lab / Micro Data Result Diagrams: 11/10/20 05:52 11/10/20 05:52 Labs: Laboratory Results - last 24 hr 11/09/20 11/10/20 11/10/20 05:45 05:52 05:52 WBC 2.6 L RBC 2.88 L Hgb 9.3 L Hct 30.0 L MCV 104.2 H MCH 32.3 H MCHC 31.0 L RDW Std Deviation 73.0 H RDW Coeff of Mary Alice 19.3 H Plt Count 50 L* MPV 11.1 Immature Gran % (Auto) 0.400 Neut % (Auto) 72.7 H Lymph % (Auto) 13.3 L [place] % (Auto) 10.2 H Eos % (Auto) 2.3 Baso % (Auto) 1.1 H Absolute Neuts (auto) 1.9 L Absolute Lymphs (auto) 0.35 L Nucleated RBC % 0 Diff Path Review October foll October foll Platelet Estimate MKD DEC Sodium 135 L Potassium 4.6 Chloride 102 Carbon Dioxide 25.0 BUN 32 H Creatinine 4.43 H Estim Creat Clear Calc 8.81 Est GFR (MDRD) Af Amer 13 L Est GFR (MDRD) Non-Af 10 L BUN/Creatinine Ratio 7.2 L Glucose 157 H Calcium 8.9 Phosphorus 5.3 H Albumin 2.3 L POC Glucose 11/10/20 06:39 WBC RBC Hgb Hct MCV MCH MCHC RDW Std Deviation RDW Coeff of Mary Alice Plt Count MPV Immature Gran % (Auto) Neut % (Auto) Lymph % (Auto) [place] % (Auto) Eos % (Auto) Baso % (Auto) Absolute Neuts (auto) Absolute Lymphs (auto) Nucleated RBC % Diff Path Review Platelet Estimate Sodium Potassium Chloride Carbon Dioxide BUN Creatinine Estim Creat Clear Calc Est GFR (MDRD) Af Amer Est GFR (MDRD) Non-Af BUN/Creatinine Ratio Glucose Calcium Phosphorus Albumin POC Glucose 142 H Micro: Microbiology 11/05/20 15:45 Fluid - Paracentesis (Abd) Gram Stain - Final 11/05/20 15:45 Fluid - Paracentesis (Abd) Body Fluid Culture - Final No growth aerobically. 11/05/20 15:45 Fluid - Paracentesis (Abd) Anaerobic Culture - Preliminary No growth in 48 hours. Physical Exam Const alert and no apparent distress General Appearance: comfortable HEENT normocephalic Neck General: normal visual inspection and trachea midline Resp normal respiratory effort and clear to auscultation bilaterally Cardio regular rate, regular rhythm, S1 normal heart sound and S2 normal heart sound GI soft to palpation and non-tender Neuro Sensorium / Orientation: awake and alert Assessment & Plan Assessment/Plan (1) ESRD (end stage renal disease): PLAN: Continue Wednesday dialysis. No need for dialysis today. Next dialysis is scheduled for tomorrow, 11/11/2020. (2) Secondary renal hyperparathyroidism: PLAN: Continue calcitriol for secondary hyperparathyroidism. Continue sevelamer with meals for phosphorus binding. Calcium is 8.9 mg/dL. Phosphorus is acceptable at 5.3 mg/dL. No need to change the dose of sevelamer. (3) Anemia: QUALIFIERS: Anemia type: due to chronic kidney disease Chronic kidney disease stage: on chronic dialysis Qualified Code(s): N18.6 - End stage renal disease; D63.1 - Anemia in chronic kidney disease; Z99.2 - Dependence on renal dialysis PLAN: Hemoglobin is 9.3. Will adjust CITLALI at outpatient kidney center. (4) Abdominal ascites: QUALIFIERS: Ascites type: other type Qualified Code(s): R18.8 - Other ascites PLAN: Secondary to GUEVARA s/p paracentesis Per primary team. Awaiting rehab placement.
[2020-11-10] MEDS: traZODone 100 MG Tablet PO (22:04)
[2020-11-10] MEDS: Atorvastatin Calcium 40 MG Tablet PO (22:06)
[2020-11-11] VITALS (10 sets, daily range): BP systolic 77–98; BP diastolic 38–59; PULSE 84–100; RESP 16–20; TEMP 36.4–36.9; O2SAT 96–100
[2020-11-11] MEDS: Levothyroxine 100 MCG Tablet PO (05:13)
[2020-11-11 06:00] LABS: Bedside Glucose 138 mg/dL (70-110)
[2020-11-11] MEDS: SEVELAMER CARBONATE 800 MG TABLET PO ×2 (07:56→17:03)
[2020-11-11] MEDS: Acetaminophen 325 MG Tablet 650 MG PO ×2 (09:01→21:12)
[2020-11-11] MEDS: Calcitriol 0.25 MCG Capsule 0.5 MCG PO (09:12)
[2020-11-11] MEDS: Menthol/Lanolin/Calamine/Znox 113 GM Tube 1 APPLIC TOPICAL ×2 (09:13→21:12)
[2020-11-11] MEDS: Pantoprazole Sodium 40 MG Tablet PO ×2 (09:13→21:12)
[2020-11-11] MEDS: Ondansetron 4 MG/2 ML Vial IV (09:23)
[2020-11-11] MEDS: 0.9% Saline Lock 10 ML Syringe IV (09:23)
--- NOTE | 2020-11-11 09:30 | PCM.TXEXTCAR ---
Diet 11/05/20 10:32 Diet: Cardiac - Heart Healthy Type of Dietary Supplement:: Nepro Is pt able to select menu?: Yes Diet Comments: 8 oz supplement w/ meals Wound(s) Right Great Toe: Wound Type: healing wound from removal of ingrown toenail Dressing Change: Dry Sterile Dressing RLQ: Wound Type: Puncture Problem/Diagnosis (1) ESRD (end stage renal disease): Status: Acute (2) Secondary renal hyperparathyroidism: Status: Acute (3) Anemia: Status: Chronic (4) Abdominal ascites: Status: Acute Allergies/Procedures Done in Hospital Allergies clarithromycin [From Biaxin] Allergy (Verified 11/04/20 18:50) Unknown iodine Allergy (Verified 11/05/20 00:23) Rash melatonin Adverse Reaction (Intermediate, Verified 11/05/20 00:23) dreams Dietary and Speech Recommendations Dietitian Recommendations/Changes: Will continue cardiac diet Will order Nepro Cho Steady w/ meals for increased nutrition if consumed. Discharge Plan Admission Admit Date/Time: 11/04/20 22:17 Attending Provider: Bryon Scott Primary Care Provider: Nicola Bay Consulting Providers: Edward Max Discharge Orders/Prescriptions Prescriptions: No Action calcitriol 0.5 MCG capsule 0.5 mcg PO MOWEFR RF: 0 pantoprazole 40 MG tablet 40 mg PO BID RF: 0 levothyroxine 100 MCG tablet 100 mcg PO DAILY RF: 0 lorazepam 0.5 MG tablet 0.5 mg PO DAILY PRN PRN (Reason: Anxiety) RF: 0 insulin asp prt-insulin aspart [Novolog Mix 70-30 U-100 Insuln] 100 UNIT/ML solution 26 units SQ SUTUTHSA RF: 0 sevelamer carbonate 800 MG tablet 800 mg PO TID RF: 0 insulin glargine 100 UNITS/ML insulin pen 26 unit SC MOWEFR RF: 0 atorvastatin 40 MG tablet 40 mg PO QHS Qty: 30 RF: 0 ondansetron HCl 4 MG tablet 4 mg PO Q8H PRN (Reason: Nausea) Qty: 20 RF: 0 trazodone 50 mg tablet 100 mg PO QHS RF: 0 hydroxyzine HCl 25 mg tablet 25 mg PO Q6H PRN PRN (Reason: Itching) RF: 0 midodrine 10 mg tablet 10 mg PO BID RF: 0 Referrals / Follow Up: Nicola Bay MD [Primary Care Provider] - Disposition Disposition (needs filled in before D/C Order can be placed): Home, self care
--- NOTE | 2020-11-11 09:30 | PCM.DC.SUM ---
Providers Date of Admission: 11/04/20 Primary Care Physician: Dr. Nicola Bay MD Consultations 11/05/20 00:45 Consult: Onc/Wound/peritoneal dialysis registered nurse Routine Comment: Reason for Consult:: Right Great Toe wound 11/05/20 09:26 Consult: Nephrology Routine Consulting Provider: Edward Max Reason for Consult: ESRD ON HD EMERGENT Consult: No MD Notified: Yes Date Notified:: 11/05/20 Time Notified: 09:26 Method of Notification: Answering Service Comments:: (Dr. Max covering for Dr. Valdivia) Reason For Visit: ABDOMINAL PAIN/NAUSEA AND VOMITING Diagnosis Discharge Diagnosis (1) ESRD (end stage renal disease): Status: Acute Code(s): N18.6 - End stage renal disease (2) Secondary renal hyperparathyroidism: Status: Acute Code(s): N25.81 - Secondary hyperparathyroidism of renal origin (3) Anemia: Status: Chronic Code(s): D64.9 - Anemia, unspecified Qualifiers: Anemia type: due to chronic kidney disease Chronic kidney disease stage: on chronic dialysis Qualified Code(s): N18.6 - End stage renal disease; D63.1 - Anemia in chronic kidney disease; Z99.2 - Dependence on renal dialysis (4) Abdominal ascites: Status: Acute Code(s): R18.8 - Other ascites Qualifiers: Ascites type: other type Qualified Code(s): R18.8 - Other ascites Medications at Discharge Home Medications pantoprazole 40 mg PO BID 02/01/20 calcitriol 0.5 mcg PO MOWEFR 04/12/20 levothyroxine 100 mcg PO DAILY 06/03/20 insulin asp prt-insulin aspart [Novolog Mix 70-30 U-100 Insuln] 26 units SQ SUTUTHSA 07/19/20 insulin glargine 26 unit SC MOWEFR 07/19/20 lorazepam 0.5 mg PO DAILY PRN PRN 07/19/20 sevelamer carbonate 800 mg PO TID 07/19/20 atorvastatin 40 mg PO QHS #30 tab 07/21/20 ondansetron HCl 4 mg PO Q8H PRN #20 tab 07/21/20 hydroxyzine HCl 25 mg PO Q6H PRN PRN 11/05/20 midodrine 10 mg PO BID 11/05/20 trazodone 100 mg PO QHS 05/18/21 ABG / Lab / Microbiology Data Result Diagrams: 11/10/20 05:52 11/10/20 05:52 Laboratory: Laboratory Results - last 24 hr 11/11/20 05:24 POC Glucose 138 H Microbiology: Microbiology 11/05/20 15:45 Gram Stain - Final Fluid - Paracentesis (Abd) Body Fluid Culture - Final No growth aerobically. Anaerobic Culture - Final No growth in 5 days. Microbiology 11/05/20 15:45 Fluid - Paracentesis (Abd) Gram Stain - Final 11/05/20 15:45 Fluid - Paracentesis (Abd) Body Fluid Culture - Final No growth aerobically. 11/05/20 15:45 Fluid - Paracentesis (Abd) Anaerobic Culture - Final No growth in 5 days. Discharge Plan Admission Admit Date/Time: 11/04/20 22:17 Attending Provider: Bryon Scott Primary Care Provider: Nicola Bay Consulting Providers: Edward Max Discharge Orders/Prescriptions Prescriptions: No Action calcitriol 0.5 MCG capsule 0.5 mcg PO MOWEFR RF: 0 pantoprazole 40 MG tablet 40 mg PO BID RF: 0 levothyroxine 100 MCG tablet 100 mcg PO DAILY RF: 0 lorazepam 0.5 MG tablet 0.5 mg PO DAILY PRN PRN (Reason: Anxiety) RF: 0 insulin asp prt-insulin aspart [Novolog Mix 70-30 U-100 Insuln] 100 UNIT/ML solution 26 units SQ SUTUTHSA RF: 0 sevelamer carbonate 800 MG tablet 800 mg PO TID RF: 0 insulin glargine 100 UNITS/ML insulin pen 26 unit SC MOWEFR RF: 0 atorvastatin 40 MG tablet 40 mg PO QHS Qty: 30 RF: 0 ondansetron HCl 4 MG tablet 4 mg PO Q8H PRN (Reason: Nausea) Qty: 20 RF: 0 trazodone 50 mg tablet 100 mg PO QHS RF: 0 hydroxyzine HCl 25 mg tablet 25 mg PO Q6H PRN PRN (Reason: Itching) RF: 0 midodrine 10 mg tablet 10 mg PO BID RF: 0 Referrals / Follow Up: Nicola Bay MD [Primary Care Provider] - Disposition Disposition (needs filled in before D/C Order can be placed): Home, self care
--- NOTE | 2020-11-11 09:32 | CASEMGMT ---
Addendum entered by Thelma Trinidad 11/11/20 16:00: GUS faxed updated note to Thelma at [facility] that states pt's blood pressure is always low. Addendum entered by Thelma Trinidad 11/11/20 15:42: GUS updated pt that insurance is still pending, will update pt when GUS hears from insurance. Addendum entered by Thelma Trinidad 11/11/20 15:02: GUS received call from Thelma at [facility] stating [facility] is stating they are not able to approve pt as [facility]'s blood [facility] is [facility] and tomorrow morning regarding pt's blood pressure. GUS updated that pt's blood pressure runs low regardless asked for physician to chart that in his note. GUS placed a call to Thelma at [facility] and left message updating her, GUS will fax note when available. Original Note: Social Work Note GUS faxed updated clinicals to [facility]. Plan: [facility] pending one time contract with Yomaira Trinidad AUDITOR TAX, FIRE ALARM OPERATOR
[2020-11-11] MEDS: Midodrine HCl 5 MG Tablet 10 MG PO ×3 (09:33→17:03)
[2020-11-11] MEDS: Epoetin Alfa epbx 10,000 UNITS/ML 7000 UNIT IV (12:00)
[2020-11-11 13:12] LABS: Pathologist Review Reviewed
[2020-11-11 13:13] LABS: Pathologist Review Reviewed
[2020-11-11] MEDS: Heparin 10,000 UNITS/10 ML Vial IV (13:45)
--- NOTE | 2020-11-11 13:54 | PCM.PN.HOSP ---
Subjective Subjective Patient has abdominal distention. Is due for dialysis today. Otherwise all chronic problem Objective Data Objective Data Vital Signs: Vital Signs Temp Pulse Resp BP Pulse Ox 97.7 F L 100 20 H 87/44 L 99 11/11/20 09:20 11/11/20 09:20 11/11/20 09:20 11/11/20 09:20 11/11/20 09:20 Oxygen Delivery Method [5] Room Air Oxygen Delivery Method [4] Room Air Oxygen Delivery Method [3] Room Air Oxygen Delivery Method [2] Room Air Oxygen Delivery Method [1 ( Room Air Initial Baseline)] Oxygen Delivery Method Room Air Weight: 169 lb 1.513 oz Body Mass Index (BMI) 32.8 Intake & Output: Intake and Output for Last 24 Hours 11/09/20 11/10/20 11/11/20 23:59 23:59 23:59 Intake Total 125 / 125 260 / 260 100 / 100 Output Total 0 / 0 0 / 0 Balance 125 / 125 260 / 260 100 / 100 Lab / Micro Data Result Diagrams: 11/10/20 05:52 11/10/20 05:52 Labs: Laboratory Results - last 24 hr 11/09/20 11/10/20 11/11/20 05:45 05:52 05:24 Diff Path Review Reviewed Reviewed POC Glucose 138 H Micro: Microbiology 11/05/20 15:45 Fluid - Paracentesis (Abd) Gram Stain - Final 11/05/20 15:45 Fluid - Paracentesis (Abd) Body Fluid Culture - Final No growth aerobically. 11/05/20 15:45 Fluid - Paracentesis (Abd) Anaerobic Culture - Final No growth in 5 days. Physical Exam Narrative General: Alert, awake and oriented x3. HEENT: Atraumatic, PERRLA, EOMI, Normocephalic, scleral icterus present. Oral: No Gingival or Mucosal Lesions/ Ulcerations Neck: Supple, No JVD, Negative Carotid Bruits.? Mediport on right subclavian region Lungs:? Air entry diminished in bilateral lung bases.? No crepitation/rhonchi Cardiovascular:?Low pitch heart sounds. Regular rate and rhythm, Normal S1, Normal S2, ejection systolic murmur over second ICS. Abdomen: Ascites large. Abdomen distended bowel sounds present.? Nontender.? Soft.? Umbilical hernia reducible. : On hemodialysis no renal angle tenderness.? No suprapubic tenderness. Extremities: Bilateral lower extremity edema, Capillary Refill Less than 3 Seconds Skin: Small scab ulcer on the right great toe nail, on lateral aspect, dressing changed. Mild bruise on upper and lower extremities with ecchymosis. Musculoskeletal: No Tenderness to Palpation of Joints or Extremities Neurological: Cranial nerves II-XII grossly intact, Deep Tendon Reflexes 2+/4 and Symmetrical, Neuro grossly intact Psych/Mental Status: Flat affect. Const oriented x3 General Appearance: cooperative HEENT head/scalp atraumatic Eyes PERRL Neck supple Lymph Lymphatic: no lymphadenopathy noted Resp normal respiratory effort and clear to auscultation bilaterally Cardio regular rate, regular rhythm, S1 normal heart sound and S2 normal heart sound GI non-tender Inspection: abdominal distention Psych thought process normal Assessment & Plan Assessment/Plan (1) ESRD (end stage renal disease): (2) Secondary renal hyperparathyroidism: (3) Anemia: QUALIFIERS: Anemia type: due to chronic kidney disease Chronic kidney disease stage: on chronic dialysis Qualified Code(s): N18.6 - End stage renal disease; D63.1 - Anemia in chronic kidney disease; Z99.2 - Dependence on renal dialysis (4) Abdominal ascites: QUALIFIERS: Ascites type: other type Qualified Code(s): R18.8 - Other ascites PLAN: ?This is a 75-year-old female is being admitted with abdominal pain nausea and vomiting after dialysis.? She is on weekly paracentesis secondary to Forrester towards decompensated cirrhosis last 1 on 10/31.. Assessment and plan 1.? Abdominal pain with nausea and vomiting due to ascites from decompensated Forrester liver cirrhosis, hepatic encephalopathy, jaundice, SBP ruled out.? [facility] Discussed with the radiologist for ultrasound-guided paracentesis and fluid analysis test which were ordered.? Labs ordered for fluid chemistry, cell count, culture.? Patient has hypotension from vasodilation, cirrhosis.? On midodrine.? Abdominal pain has resolved.? Pancytopenia related from decompensated cirrhosis 11/06: Patient had 4.7 L acetic fluid tapped yesterday. Fluid analysis not suggestive of SBP, portal hypertensive in nature. No abdominal tenderness. 2D echo is ordered as patient has his murmur and right side of the heart. 11/07: Patient had repeat paracentesis 4.450 L.? Acetic fluid culture does not show growth. 11/08: Thrombocytopenia.? Ascitic fluid did not show growth.? Occult blood positive. 11/09: Pancytopenia, severe with decrease in all 3 cell lines, progressively worsening.? Hypotension, midodrine increased to 10 mg 3 times daily. 11/10: CBC profile improved today.? Platelet count 50,000.? Continue lactulose as ordered. 11/11: Patient is awake and alert. manager retail working on SNF, pre-CERT pending. Monitor CBC. 2.? Diabetes mellitus type II?patient initially n.p.o. but had breakfast.? On sliding scale insulin.? Glucose 119 glucose is controlled. 3.? End-stage renal failure on dialysis, secondary hyperparathyroidism?patient received her dialysis; on day of admission.? Brands Editor consulted. Dialysis today. Midodrine 10 mg twice daily along with extra 10 mg on the days of dialysis. 11/10: Patient requested to culture the dialysis time to about 1-1/2 hours. 11/11: On hemodialysis regimen. 4.? DVT prophylaxis?SCDs due to thrombocytopenia 5.? Hypothyroidism?continue oral thyroid medication if tolerating oral in the morning. 6.? Pancytopenia related to decompensated cirrhosis.? 7.? Other comorbidities include hypertension, history of breast cancer in remission, chronic venous insufficiency and bilateral lymphedema:? Multiple comorbidities complicates the present care and? expect difficult and delay recovery Living will/advanced directive/end of life care: DNR CC arrest with no intubation.? Poor prognosis. Patient is a 71 with palliative care Visit Charges Inpatient E&M: 28085 Subs Hosp L2
[2020-11-11] MEDS: Lactulose 20 GM/30 ML UDC PO (14:00)
--- NOTE | 2020-11-11 15:15 | DIALYSIS ---
Pt tolerated HD tx well. SBP 70-90's throughout tx; pt asymptomatic. Net UF -200ml. See flow record for tx data.
--- NOTE | 2020-11-11 15:47 | PCM.PN.REN ---
Subjective Subjective no new complaints Objective Data Objective Data Vital Signs: Vital Signs Temp Pulse Resp BP Pulse Ox 97.5 F L 89 18 89/49 L 98 11/11/20 15:00 11/11/20 15:00 11/11/20 15:00 11/11/20 15:00 11/11/20 14:57 Oxygen Delivery Method [5] Room Air Oxygen Delivery Method [4] Room Air Oxygen Delivery Method [3] Room Air Oxygen Delivery Method [2] Room Air Oxygen Delivery Method [1 ( Room Air Initial Baseline)] Oxygen Delivery Method Room Air Weight: 76.7 kg Body Mass Index (BMI) 32.8 Intake & Output: Intake and Output for Last 24 Hours 11/09/20 11/10/20 11/11/20 23:59 23:59 23:59 Intake Total 125 / 125 260 / 260 100 / 100 Output Total 0 / 0 0 / 0 400 / 400 Balance 125 / 125 260 / 260 -300 / -300 Lab / Micro Data Result Diagrams: 11/10/20 05:52 11/10/20 05:52 Labs: Laboratory Results - last 24 hr 11/09/20 11/10/20 11/11/20 05:45 05:52 05:24 Diff Path Review Reviewed Reviewed POC Glucose 138 H Micro: Microbiology 11/05/20 15:45 Fluid - Paracentesis (Abd) Gram Stain - Final 11/05/20 15:45 Fluid - Paracentesis (Abd) Body Fluid Culture - Final No growth aerobically. 11/05/20 15:45 Fluid - Paracentesis (Abd) Anaerobic Culture - Final No growth in 5 days. Physical Exam Const alert and no apparent distress General Appearance: comfortable HEENT normocephalic Neck General: normal visual inspection and trachea midline Resp normal respiratory effort and clear to auscultation bilaterally Cardio regular rate, regular rhythm, S1 normal heart sound and S2 normal heart sound GI soft to palpation and non-tender Neuro Sensorium / Orientation: awake and alert Assessment & Plan Assessment/Plan (1) ESRD (end stage renal disease): PLAN: Continue Wednesday dialysis. HD today. see orders/flowsheets (2) Secondary renal hyperparathyroidism: PLAN: Continue calcitriol for secondary hyperparathyroidism. Continue sevelamer with meals for phosphorus binding. Calcium is 8.9 mg/dL. Phosphorus is acceptable at 5.3 mg/dL. No need to change the dose of sevelamer. (3) Anemia: QUALIFIERS: Anemia type: due to chronic kidney disease Chronic kidney disease stage: on chronic dialysis Qualified Code(s): N18.6 - End stage renal disease; D63.1 - Anemia in chronic kidney disease; Z99.2 - Dependence on renal dialysis PLAN: Hemoglobin is 9.3. Will adjust CITLALI at outpatient kidney center. (4) Abdominal ascites: QUALIFIERS: Ascites type: other type Qualified Code(s): R18.8 - Other ascites PLAN: Secondary to GUEVARA s/p paracentesis Per primary team. Awaiting rehab placement. (5) Hypotension (arterial): PLAN: Patient has chronic hypotension in the setting of cirrhotic liver disease. Usually systolic runs between 80-90 and diastolic 40-50. Asymptomatic. Currently on midodrine 10 mg 3 times daily with additional doses before dialysis. No other option available to bring this blood pressure up. She is okay to be discharged to rehab from my end
[2020-11-11] MEDS: Gabapentin 100 MG Capsule PO (17:03)
[2020-11-11] MEDS: Atorvastatin Calcium 40 MG Tablet PO (21:12)
[2020-11-11] MEDS: traZODone 100 MG Tablet PO (21:12)
[2020-11-11] MEDS: LORazepam 0.5 MG Tablet PO (21:12)
[2020-11-12 00:31] VITALS: BP 78/43; PULSE 93; RESP 18; TEMP 36.9; O2SAT 96
[2020-11-12 05:01] VITALS: BP 75/40; PULSE 86; RESP 18; TEMP 36.5; O2SAT 96
[2020-11-12] MEDS: Levothyroxine 100 MCG Tablet PO (05:09)
[2020-11-12 06:40] LABS: Bedside Glucose 122 mg/dL (70-110)
[2020-11-12 09:00] VITALS: BP 79/46; PULSE 97; RESP 18; TEMP 36.7; O2SAT 100
[2020-11-12] MEDS: Pantoprazole Sodium 40 MG Tablet PO (09:12)
[2020-11-12] MEDS: SEVELAMER CARBONATE 800 MG TABLET PO ×3 (09:12→17:29)
[2020-11-12] MEDS: Menthol/Lanolin/Calamine/Znox 113 GM Tube 1 APPLIC TOPICAL (09:16)
--- NOTE | 2020-11-12 09:37 | CASEMGMT ---
Social Work Note SW faxed updated vitals to [facility]. Plan: [facility] pending One Time Contract Thelma Trinidad ACT ENGLISH TUTOR, ASSEMBLER SURGICAL GARMENT
--- NOTE | 2020-11-12 10:32 | PCM.PN.HOSP ---
Subjective Subjective Feels much better today, when she woke up she had an appetite. Denies any abdominal pain Objective Data Objective Data Vital Signs: Vital Signs Temp Pulse Resp BP Pulse Ox 97.7 F L 86 18 75/40 L 96 11/12/20 05:01 11/12/20 05:01 11/12/20 05:01 11/12/20 05:01 11/12/20 05:01 Oxygen Delivery Method [5] Room Air Oxygen Delivery Method [4] Room Air Oxygen Delivery Method [3] Room Air Oxygen Delivery Method [2] Room Air Oxygen Delivery Method [1 ( Room Air Initial Baseline)] Oxygen Delivery Method Room Air Weight: 169 lb 1.513 oz Body Mass Index (BMI) 32.8 Intake & Output: Intake and Output for Last 24 Hours 11/11/20 11/12/20 11/13/20 03:59 03:59 03:59 Intake Total 260 / 260 300 / 300 150 / 150 Output Total 0 / 0 400 / 400 0 / 0 Balance 260 / 260 -100 / -100 150 / 150 Lab / Micro Data Result Diagrams: 11/10/20 05:52 11/10/20 05:52 Labs: Laboratory Results - last 24 hr 11/09/20 11/10/20 11/12/20 05:45 05:52 06:23 Diff Path Review Reviewed Reviewed POC Glucose 122 H Micro: Microbiology 11/05/20 15:45 Fluid - Paracentesis (Abd) Gram Stain - Final 11/05/20 15:45 Fluid - Paracentesis (Abd) Body Fluid Culture - Final No growth aerobically. 11/05/20 15:45 Fluid - Paracentesis (Abd) Anaerobic Culture - Final No growth in 5 days. Physical Exam Const alert, oriented x3 and no apparent distress General Appearance: cooperative HEENT moist oral mucous membranes Head and Scalp: normocephalic Eyes PERRL, EOMs intact bilaterally and conjunctivae normal Neck supple and no JVD Lymph Lymphatic: no lymphadenopathy noted Resp normal respiratory effort and clear to auscultation bilaterally Auscultation: Negative for crackles, rales, rhonchi or wheezes Cardio regular rate, regular rhythm, S1 normal heart sound and S2 normal heart sound Heart Sounds: murmur GI soft to palpation, non-tender and non-distended; Negative for hepatosplenomegaly Inspection: abdominal distention Extremity normal to inspection General Extremity: edema bilateral lower extremity Skin no rashes or lesions noted Neuro no focal motor deficits and no sensory deficits noted Psych thought process normal and affect normal Assessment & Plan Assessment/Plan (1) Hepatorenal failure: (2) ESRD (end stage renal disease): (3) Secondary renal hyperparathyroidism: (4) Anemia: QUALIFIERS: Anemia type: due to chronic kidney disease Chronic kidney disease stage: on chronic dialysis Qualified Code(s): N18.6 - End stage renal disease; D63.1 - Anemia in chronic kidney disease; Z99.2 - Dependence on renal dialysis (5) Abdominal ascites: QUALIFIERS: Ascites type: other type Qualified Code(s): R18.8 - Other ascites PLAN: ?This is a 75-year-old female is being admitted with abdominal pain nausea and vomiting after dialysis.? She is on weekly paracentesis secondary to Forrester towards decompensated cirrhosis last 1 on 10/31.. Assessment and plan 1.? Abdominal pain with nausea and vomiting due to ascites from decompensated Forrester liver cirrhosis, hepatic encephalopathy, jaundice, SBP ruled out.? Chronic hypotension: Admitted on MedSurg floor.? Discussed with the radiologist for ultrasound-guided paracentesis and fluid analysis test which were ordered.? Labs ordered for fluid chemistry, cell count, culture.? Patient has hypotension from vasodilation, cirrhosis.? On midodrine.? Abdominal pain has resolved.? Pancytopenia related from decompensated cirrhosis 11/06: Patient had 4.7 L acetic fluid tapped yesterday. Fluid analysis not suggestive of SBP, portal hypertensive in nature. No abdominal tenderness. 2D echo is ordered as patient has his murmur and right side of the heart. 11/07: Patient had repeat paracentesis 4.450 L.? Acetic fluid culture does not show growth. 11/08: Thrombocytopenia.? Ascitic fluid did not show growth.? Occult blood positive. 11/09: Pancytopenia, severe with decrease in all 3 cell lines, progressively worsening.? Hypotension, midodrine increased to 10 mg 3 times daily. 11/10: CBC profile improved today.? Platelet count 50,000.? Continue lactulose as ordered. 11/11: Patient is awake and alert. agricultural labor camp manager working on SNF, pre-CERT pending. Monitor CBC. 11/12: Feels much better today and eating during exam. Still pending pre-CERT. Would recommend follow-up by palliative care as an outpatient secondary to her hepatorenal syndrome 2.? Diabetes mellitus type II?patient initially n.p.o. but had breakfast.? On sliding scale insulin.? Glucose 122 glucose is controlled. 3.? End-stage renal failure on dialysis, secondary hyperparathyroidism?patient received her dialysis; on day of admission.? Stitch Burnisher consulted. Dialysis today. Midodrine 10 mg twice daily along with extra 10 mg on the days of dialysis. 11/10: Patient requested to culture the dialysis time to about 1-1/2 hours. 11/11: On hemodialysis regimen. 11/12: Continue with dialysis secondary to her hepatorenal syndrome, she will need to follow-up with nephrology as an outpatient and obtain another paracentesis this as she states she gets them every 4.? DVT prophylaxis?SCDs due to thrombocytopenia 5.? Hypothyroidism?continue oral thyroid medication if tolerating oral in the morning. 6.? Pancytopenia related to decompensated cirrhosis.? 7.? Other comorbidities include hypertension, history of breast cancer in remission, chronic venous insufficiency and bilateral lymphedema:? Multiple comorbidities complicates the present care and? expect difficult and delay recovery Living will/advanced directive/end of life care: DNR CC arrest with no intubation.? Poor prognosis. Patient is a 71 with palliative care Visit Charges OBSV E&M: 64895 Subsequent observation care L2
[2020-11-12] MEDS: Midodrine HCl 5 MG Tablet 10 MG PO ×2 (12:00→17:30)
[2020-11-12] MEDS: Acetaminophen 325 MG Tablet 650 MG PO (12:04)
[2020-11-12 13:00] VITALS: BP 83/63; PULSE 91; RESP 18; TEMP 36.9; O2SAT 100
--- NOTE | 2020-11-12 13:59 | NS ---
Per kitchen staff, pt refusing Nepro. Will d/c from diet order. Noreen Reyes MS, RDN, LD
--- NOTE | 2020-11-12 14:10 | CASEMGMT ---
Social Work Note SW is leaving soon for the day. GUS placed a call to [facility] ED SW and updated her that if Paula at [facility] calls her with pre-cert, pt can discharge to [facility] today. [facility] to call formula bottler if pre-cert is obtained. GUS completed PAS/RR in [facility]. GUS placed Green sheet, PAS/RR, COVID tool and Transportation form on pt's chart in the event pre-cert is obtained. GUS wrote on Green sheet that pt can only discharge if [facility] ED SW calls with Pre-cert. GUS also wrote on Green sheet that pt will need COVID test. GUS updated Charge Nurse and [place]. Plan: [facility] pending pre-cert Thelma Trinidad SOFTWARE DEVELOPMENT LEADER, MATERIALS INSPECTOR
[2020-11-12] MEDS: Lactulose 20 GM/30 ML UDC PO (15:03)
--- NOTE | 2020-11-12 15:43 | CASEMGMT ---
GUS Note Referral: [facility] 3 Year Olds Preschool Teacher Referral Reason: Possible placement today for patient at [facility] GUS received phone call from Paula at [facility] ([facility]). She advised that precertification had been received and patient could come to [facility], if medically ready. GUS spoke to Flor on [facility] and updated her regarding patient being able to go to [facility] today. Flor will call this commercial insurance underwriter with the time patient will be leaving. Then this commercial insurance underwriter will update Paula at [facility]. Plan: Discharge to [facility] Vero CHING
--- NOTE | 2020-11-12 16:30 | PCM.TXEXTCAR ---
Diet 11/11/20 11:57 Diet: Regular - No Added Salt Is pt able to select menu?: Yes Diet Comments: small portions per pt request Wound(s) Right Great Toe: Wound Type: healing wound from removal of ingrown toenail Dressing Change: Dry Sterile Dressing RLQ: Wound Type: Puncture Problem/Diagnosis (1) Hepatorenal failure: Status: Acute (2) ESRD (end stage renal disease): Status: Chronic (3) Secondary renal hyperparathyroidism: Status: Acute (4) Anemia: Status: Chronic (5) Abdominal ascites: Status: Acute Allergies/Procedures Done in Hospital Allergies clarithromycin [From Biaxin] Allergy (Verified 11/04/20 18:50) Unknown iodine Allergy (Verified 11/05/20 00:23) Rash melatonin Adverse Reaction (Intermediate, Verified 11/05/20 00:23) dreams Type of Care/Length of Stay Estimated LOS: Convalescent Care Less Than 30 days Type of Care Needed: Skilled Rehab Potential: Good Prognosis: Good Additional Orders/Day of Discharge Day of Discharge: 11/12/20 Dietary and Speech Recommendations Dietitian Recommendations/Changes: Will liberalize to Reg No Added Salt diet (small portions per pt request). Will continue Nepro Cho Steady w/ meals for increased nutrition if consumed. Rec consider appetite stimulant to try to encourage increased po intake. Discharge Plan Admission Admit Date/Time: 11/04/20 22:17 Attending Provider: Jose Corbin Primary Care Provider: Nicola Bay Consulting Providers: Edward Max Discharge Orders/Prescriptions Prescriptions: New gabapentin 100 mg Capsule 100 mg PO MoWeFr Qty: 1 RF: 0 lactulose 20 gram/30 mL Solution 20 g PO TID 1 Days Qty: 90 RF: 0 Continued calcitriol 0.5 MCG capsule 0.5 mcg PO MOWEFR RF: 0 pantoprazole 40 MG tablet 40 mg PO BID RF: 0 levothyroxine 100 MCG tablet 100 mcg PO DAILY RF: 0 lorazepam 0.5 MG tablet 0.5 mg PO DAILY PRN PRN (Reason: Anxiety) RF: 0 insulin asp prt-insulin aspart [Novolog Mix 70-30 U-100 Insuln] 100 UNIT/ML solution 26 units SQ SUTUTHSA RF: 0 sevelamer carbonate 800 MG tablet 800 mg PO TID RF: 0 insulin glargine 100 UNITS/ML insulin pen 26 unit SC MOWEFR RF: 0 atorvastatin 40 MG tablet 40 mg PO QHS Qty: 30 RF: 0 ondansetron HCl 4 MG tablet 4 mg PO Q8H PRN (Reason: Nausea) Qty: 20 RF: 0 trazodone 50 mg tablet 100 mg PO QHS RF: 0 hydroxyzine HCl 25 mg tablet 25 mg PO Q6H PRN PRN (Reason: Itching) RF: 0 midodrine 10 mg tablet 10 mg PO BID RF: 0 Referrals / Follow Up: Nicola Bay MD [Primary Care Provider] - Disposition Disposition (needs filled in before D/C Order can be placed): Senior Care Facility
--- NOTE | 2020-11-12 16:38 | DS.PCM_ITS ---
Providers Date of Admission: 11/04/20 Primary Care Physician: Dr. Nicola Bay MD Consultations 11/05/20 00:45 Consult: Onc/Wound/behavioral health therapist Routine Comment: Reason for Consult:: Right Great Toe wound 11/05/20 09:26 Consult: Nephrology Routine Consulting Provider: Edward Max Reason for Consult: ESRD ON HD EMERGENT Consult: No MD Notified: Yes Date Notified:: 11/05/20 Time Notified: 09:26 Method of Notification: Answering Service Comments:: (Dr. Max covering for Dr. Valdivia) Reason For Visit: ABDOMINAL PAIN/NAUSEA AND VOMITING Diagnosis Discharge Diagnosis (1) Hepatorenal failure: Status: Acute Code(s): K76.7 - Hepatorenal syndrome (2) ESRD (end stage renal disease): Status: Chronic Code(s): N18.6 - End stage renal disease (3) Secondary renal hyperparathyroidism: Status: Acute Code(s): N25.81 - Secondary hyperparathyroidism of renal origin (4) Anemia: Status: Chronic Code(s): D64.9 - Anemia, unspecified Qualifiers: Anemia type: due to chronic kidney disease Chronic kidney disease stage: on chronic dialysis Qualified Code(s): N18.6 - End stage renal disease; D63.1 - Anemia in chronic kidney disease; Z99.2 - Dependence on renal dialysis (5) Abdominal ascites: Status: Acute Code(s): R18.8 - Other ascites Qualifiers: Ascites type: other type Qualified Code(s): R18.8 - Other ascites Medications at Discharge Home Medications pantoprazole 40 mg PO BID 02/01/20 calcitriol 0.5 mcg PO MOWEFR 04/12/20 levothyroxine 100 mcg PO DAILY 06/03/20 insulin asp prt-insulin aspart [Novolog Mix 70-30 U-100 Insuln] 26 units SQ SUTUTHSA 07/19/20 insulin glargine 26 unit SC MOWEFR 07/19/20 lorazepam 0.5 mg PO DAILY PRN PRN 07/19/20 sevelamer carbonate 800 mg PO TID 07/19/20 atorvastatin 40 mg PO QHS #30 tab 07/21/20 ondansetron HCl 4 mg PO Q8H PRN #20 tab 07/21/20 hydroxyzine HCl 25 mg PO Q6H PRN PRN 11/05/20 midodrine 10 mg PO BID 11/05/20 trazodone 100 mg PO QHS 11/05/20 gabapentin 100 mg PO MoWeFr #1 cap 11/12/20 lactulose 20 g PO TID 1 Days #90 ml 11/12/20 Hospital Course Operations None Procedures 2-D Echocardiogram Summary of Care Provided Minutes Spent on Discharge: 35 Hospital Course: Per HPI: Anita Manzanares is a 76-year-old female patient who presents to the emergency room following dialysis today with a chief complaint of abdominal pain nausea and vomiting of 1 day.? She has a significant past medical history for nonalcoholic steatohepatitis, chronic kidney failure for which she is on dialysis.? The patient does have anemia of chronic disease.? Despite antiemetic therapy patient continues to be nauseated in the emergency room.? She will be admitted for observation to the general medical floor with anticipated discharge when she becomes more hemodynamically stable. Hospital Course: 1.? Abdominal pain with nausea and vomiting due to ascites from decompensated Forrester liver cirrhosis, hepatic encephalopathy, jaundice, SBP ruled out.? Chronic hypotension: Admitted on MedSur floor.? Discussed with the radiologist for ultrasound-guided paracentesis and fluid analysis test which were ordered.? Labs ordered for fluid chemistry, cell count, culture.? Patient has hypotension from vasodilation, cirrhosis.? On midodrine.? Abdominal pain has resolved.? Pancytopenia related from decompensated cirrhosis 11/06: Patient had 4.7 L acetic fluid tapped yesterday. Fluid analysis not suggestive of SBP, portal hypertensive in nature. No abdominal tenderness. 2D echo is ordered as patient has his murmur and right side of the heart. 11/07: Patient had repeat paracentesis 4.450 L.? Acetic fluid culture does not show growth. 11/08: Thrombocytopenia.? Ascitic fluid did not show growth.? Occult blood positive. 11/09: Pancytopenia, severe with decrease in all 3 cell lines, progressively worsening.? Hypotension, midodrine increased to 10 mg 3 times daily. 11/10: CBC profile improved today.? Platelet count 50,000.? Continue lactulose as ordered. 11/11: Patient is awake and alert.? site project manager working on SNF, pre-CERT pending.? Monitor CBC. 11/12: Feels much better today and eating during exam.? Received pre-CERT today.? Would recommend follow-up by palliative care as an outpatient secondary to her hepatorenal syndrome 2.? Diabetes mellitus type II?patient initially n.p.o. but had breakfast.? On sliding scale insulin.? Glucose?122 glucose is controlled. 3.? End-stage renal failure on dialysis, secondary hyperparathyroidism?patient received her dialysis; on day of admission.? Media Account Executive consulted. Dialysis today. Midodrine 10 mg twice daily along with extra 10 mg on the days of dialysis. 11/10: Patient requested to culture the dialysis time to about 1-1/2 hours. 11/11: On hemodialysis regimen. 11/12: Continue with dialysis secondary to her hepatorenal syndrome, she will need to follow-up with nephrology as an outpatient and obtain another paracentesis this as she states she gets them every 4.? DVT prophylaxis?SCDs due to thrombocytopenia 5.? Hypothyroidism?continue oral thyroid medication if tolerating oral in the morning. 6.? Pancytopenia related to decompensated cirrhosis.? 7.? Other comorbidities include hypertension, history of breast cancer in remission, chronic venous insufficiency and bilateral lymphedema:? Multiple comorbidities complicates the present care and? expect difficult and delay recovery Discussed with her the plan for discharge today and she is potentially others benefits of being discharged to the senior living and would like to go today. She understands that she has a poor prognosis with hepatorenal syndrome and will follow up with palliative care when able. ABG / Lab / Microbiology Data Result Diagrams: 11/10/20 05:52 11/10/20 05:52 Laboratory: Laboratory Results - last 24 hr 11/12/20 06:23 POC Glucose 122 H Microbiology: Microbiology 11/05/20 15:45 Fluid - Paracentesis (Abd) Gram Stain - Final 11/05/20 15:45 Fluid - Paracentesis (Abd) Body Fluid Culture - Final No growth aerobically. 11/05/20 15:45 Fluid - Paracentesis (Abd) Anaerobic Culture - Final No growth in 5 days. Meaningful Use Info Meaningful Use Diagnoses (Choose all that apply): None applicable Discharge Plan Admission Admit Date/Time: 11/04/20 22:17 Attending Provider: Jose Corbin Primary Care Provider: Nicola Bay Consulting Providers: Edward Max Discharge Orders/Prescriptions Prescriptions: New gabapentin 100 mg Capsule 100 mg PO MoWeFr Qty: 1 RF: 0 lactulose 20 gram/30 mL Solution 20 g PO TID 1 Days Qty: 90 RF: 0 Continued calcitriol 0.5 MCG capsule 0.5 mcg PO MOWEFR RF: 0 pantoprazole 40 MG tablet 40 mg PO BID RF: 0 levothyroxine 100 MCG tablet 100 mcg PO DAILY RF: 0 lorazepam 0.5 MG tablet 0.5 mg PO DAILY PRN PRN (Reason: Anxiety) RF: 0 insulin asp prt-insulin aspart [Novolog Mix 70-30 U-100 Insuln] 100 UNIT/ML solution 26 units SQ SUTUTHSA RF: 0 sevelamer carbonate 800 MG tablet 800 mg PO TID RF: 0 insulin glargine 100 UNITS/ML insulin pen 26 unit SC MOWEFR RF: 0 atorvastatin 40 MG tablet 40 mg PO QHS Qty: 30 RF: 0 ondansetron HCl 4 MG tablet 4 mg PO Q8H PRN (Reason: Nausea) Qty: 20 RF: 0 trazodone 50 mg tablet 100 mg PO QHS RF: 0 hydroxyzine HCl 25 mg tablet 25 mg PO Q6H PRN PRN (Reason: Itching) RF: 0 midodrine 10 mg tablet 10 mg PO BID RF: 0 Referrals / Follow Up: Nicola Bay MD [Primary Care Provider] - Disposition Disposition (needs filled in before D/C Order can be placed): [facility] Visit Charges Inpatient E&M: 98266 Disch Hosp
--- NOTE | 2020-11-12 16:46 | CASEMGMT ---
EVAN ANDERSON Follow-up: Claire at [facility] Palliative Care notified of pt's pending discharge to [facility]. Claire states pt was seen by their C IRON WORKER with documentation located in [facility]'s EMR. [facility] will follow-up with patient at [facility]. Conversations regarding end of life have been ongoing between pt and the Palliative C IRON WORKER. Librado Rodríguez RN CM
--- NOTE | 2020-11-12 17:30 | PCM.PN.REN ---
Subjective Subjective no new events Objective Data Objective Data Vital Signs: Vital Signs Temp Pulse Resp BP Pulse Ox 98.5 F 91 18 83/63 L 100 11/12/20 13:00 11/12/20 13:00 11/12/20 13:00 11/12/20 13:00 11/12/20 13:00 Oxygen Delivery Method [5] Room Air Oxygen Delivery Method [4] Room Air Oxygen Delivery Method [3] Room Air Oxygen Delivery Method [2] Room Air Oxygen Delivery Method [1 ( Room Air Initial Baseline)] Oxygen Delivery Method Room Air Weight: 76.7 kg Body Mass Index (BMI) 32.8 Intake & Output: Intake and Output for Last 24 Hours 11/10/20 11/11/20 11/12/20 23:59 23:59 23:59 Intake Total 260 / 260 300 / 300 430 / 430 Output Total 0 / 0 400 / 400 0 / 0 Balance 260 / 260 -100 / -100 430 / 430 Lab / Micro Data Result Diagrams: 11/10/20 05:52 11/10/20 05:52 Labs: Laboratory Results - last 24 hr 11/12/20 06:23 POC Glucose 122 H Micro: Microbiology 11/05/20 15:45 Fluid - Paracentesis (Abd) Gram Stain - Final 11/05/20 15:45 Fluid - Paracentesis (Abd) Body Fluid Culture - Final No growth aerobically. 11/05/20 15:45 Fluid - Paracentesis (Abd) Anaerobic Culture - Final No growth in 5 days. Physical Exam Const alert and no apparent distress General Appearance: comfortable HEENT normocephalic Neck General: normal visual inspection and trachea midline Resp normal respiratory effort and clear to auscultation bilaterally Cardio regular rate, regular rhythm, S1 normal heart sound and S2 normal heart sound GI soft to palpation and non-tender Neuro Sensorium / Orientation: awake and alert Assessment & Plan Assessment/Plan (1) ESRD (end stage renal disease): PLAN: Continue Wednesday dialysis. (2) Secondary renal hyperparathyroidism: PLAN: Continue calcitriol for secondary hyperparathyroidism. Continue sevelamer with meals for phosphorus binding. Calcium is 8.9 mg/dL. Phosphorus is acceptable at 5.3 mg/dL. No need to change the dose of sevelamer. (3) Anemia: QUALIFIERS: Anemia type: due to chronic kidney disease Chronic kidney disease stage: on chronic dialysis Qualified Code(s): N18.6 - End stage renal disease; D63.1 - Anemia in chronic kidney disease; Z99.2 - Dependence on renal dialysis PLAN: Hemoglobin is 9.3. Will adjust CITLALI at outpatient kidney center. (4) Abdominal ascites: QUALIFIERS: Ascites type: other type Qualified Code(s): R18.8 - Other ascites PLAN: Secondary to GUEVARA s/p paracentesis Per primary team. Awaiting rehab placement. (5) Hypotension (arterial): PLAN: Patient has chronic hypotension in the setting of cirrhotic liver disease. Usually systolic runs between 80-90 and diastolic 40-50. Asymptomatic. Currently on midodrine 10 mg 3 times daily with additional doses before dialysis. No other option available to bring this blood pressure up. She is okay to be discharged to rehab from my end
--- NOTE | 2020-11-12 18:40 | CASEMGMT ---
Addendum entered by Vero Melgar 11/12/20 18:45: Duplicate charting in error. Vero CHING Original Note: GUS Note Referral Source: [facility] [employer] Referral Reason: [facility] ([facility]) Placement GUS received call from Thelma at [facility]. She advised patient's precertification had been received. GUS called [facility] and updated charge nurse Flor. Flor will call to advise of patient's discharge time. Flor will fax order to [facility]. GUS updated Thelma at [facility]. Flor called this magnetic tape typewriter operator and advised patient would be leaving at 6:45 pm today. GUS updated Thelma at [facility] with time of discharge. Thelma requested orders be faxed to her so she could provide them to staff psychologist. Flor agreed to refax orders. No further services needed. Plan: Discharge to [facility] Vero CHING
--- NOTE | 2020-11-12 18:40 | NURSING ---
Report called to [facility], [place] at this time.
[2020-11-12 18:57] VITALS: BP 83/63; PULSE 91; RESP 18; TEMP 36.9; O2SAT 100
== END 2020-11-12 19:00 | disposition skilled nursing facility (03) ==
LOC: ED 22:43 → MS3 23:57
PROVIDERS: Internal Medicine; Internal Medicine Nephrology; Admitting Provider Family Medicine; Emergency Provider Emergency Medicine; PCP Family Medicine; Visit Provider Family Medicine
DX: K76.7 Hepatorenal syndrome (principal); N25.81 Secondary hyperparathyroidism of renal origin; E11.22 Type 2 diabetes mellitus with diabetic chronic kidney disease; I12.0 Hypertensive chronic kidney disease with stage 5 chronic kidney disease or end stage renal disease; N18.6 End stage renal disease; D63.1 Anemia in chronic kidney disease; I87.2 Venous insufficiency (chronic) (peripheral); D61.818 Other pancytopenia; E11.65 Type 2 diabetes mellitus with hyperglycemia; F32.9 Major depressive disorder, single episode, unspecified; F41.9 Anxiety disorder, unspecified; E11.621 Type 2 diabetes mellitus with foot ulcer; L97.519 Non-pressure chronic ulcer of other part of right foot with unspecified severity; R18.8 Other ascites; K75.81 Nonalcoholic steatohepatitis (NASH); E03.9 Hypothyroidism, unspecified; I95.89 Other hypotension; Z99.2 Dependence on renal dialysis; Z86.73 Personal history of transient ischemic attack (TIA), and cerebral infarction without residual deficits; Z79.899 Other long term (current) drug therapy; Z79.4 Long term (current) use of insulin; Z85.3 Personal history of malignant neoplasm of breast
CPT/HCPCS: 36415; 49083; 73630; 74176; 80053; 80069; 82945; 82962; 84157; 85025; 87070; 87075; 87205; 87426; 88108; 88305; 88313; 89050; 90937; 93306; 96361; 96365; 96366; 96367; 96372; 96375; 96376; 97110; 97162; 97166; 97530; 97535; 97802; 99218; 99285; J7030; J7050; P9047; A4216; G0257; G0378; J2405; Q5106

== ENCOUNTER → 2020-11-14 10:26 | Outpatient (CLI) | payer MEDICARE, SELFPAY ==
[2020-11-05 00:19] VITALS: BMI 32.8
--- NOTE | 2020-11-14 10:27 | US_ITS ---
PROCEDURE: Ultrasound guided paracentesis. DATE OF EXAMINATION: 11/14/2020. INDICATION: Female, 75 years old. Ascites. PHYSICIAN: Rigo Britt M.D. TECHNIQUE: The risks, benefits, and alternatives to the procedure were explained to the patient. The specific risks of bleeding, infection, and damage to bowel were detailed and accepted. Witnessed informed consent was obtained. The abdomen was ultrasonographically surveyed. An appropriate pocket of fluid was identified at the left lower quadrant. The skin were cleaned and prepped in the usual sterile fashion. Using ultrasound guidance, the peritoneal cavity was accessed with a 5-Tamazight paracentesis needle/catheter system. The trocar was removed. A total of 6000 ml of harsh-colored fluid were removed from the peritoneal cavity. The catheter was removed and a sterile dressing was applied. The procedure was well tolerated. US/Paracentesis with US IMPRESSION: Ultrasound guided paracentesis. Electronically Signed: Rigo Britt MD at 12:07 EDT , Service support ,
[2020-11-14 11:29] VITALS: BP 100/50; BP 76/47; BP 79/56; BP 80/42; BP 80/46; BP 88/51; PULSE 76; PULSE 80; PULSE 85; PULSE 88; PULSE 89; PULSE 91; RESP 14; RESP 16; RESP 18; TEMP 36.3; O2SAT 100; O2SAT 98
[2020-11-14 11:49] LABS: Hematocrit 29.6 % (37-47); Hemoglobin 9.4 g/dL (12.0-15.0); Mean Corp Hgb Conc 31.8 g/dL (32-36); Mean Corpuscular Hgb 32.5 pg (27.0-32.0); Mean Corpuscular Volume 102.4 fL (81-99); Mean Platelet Vol. 10.3 fl (6.2-12.0); POSITIVE COUNT YES; POSITIVE MORPHOLOGY YES; Platelet Count 82 K/mm3 (150-450); RBC Distribution Width CV 19.2 % (11.6-14.6); RBC Distribution Width SD 72.8 fl (35.1-43.9); Red Blood Count 2.89 M/mm3 (4.2-5.4)
[2020-11-14] MEDS: Albumin Human 25% (50 mL) 12.5 GM/50 ML IV.SOLN IV (11:50)
[2020-11-14 11:51] LABS: Scan Indicated on CBC? Y/N YES- FLAGS NOTED
[2020-11-14 11:58] VITALS: BP 54/38; PULSE 87; RESP 18; TEMP 35.4; O2SAT 98; BMI 30.5
[2020-11-14 12:05] LABS: Hemoglobin A1c 4.9 % (3.8-5.6)
[2020-11-14 12:12] LABS: Anion Gap 8 (5-15); BUN 34 mg/dL (7-18); BUN/Creat Ratio 7.1 RATIO (10-20); Calcium,Total 9.3 mg/dL (8.5-10.1); Chloride 102 mmol/L (98-107); Creatinine, Serum 4.82 mg/dL (0.55-1.02); EST Glomerular Filtration Rate 9 mL/min (>60); Est Glom Filt Rate - Afr Amer 11 mL/min (>60); Glucose 151 mg/dL (74-106); Potassium 4.4 mmol/L (3.5-5.1); Sodium Level 136 mmol/L (136-145)
[2020-11-14 19:45] LABS: Xtra Tube EP Lab EXTRA TUBE
== END ==
LOC: US 10:27 → MEDOUTP 11:17
PROVIDERS: PCP Family Medicine; Referring Provider Internal Medicine Gastroenterology; Visit Provider Internal Medicine Gastroenterology
DX: K74.60 Unspecified cirrhosis of liver (principal); E03.9 Hypothyroidism, unspecified; E11.22 Type 2 diabetes mellitus with diabetic chronic kidney disease
CPT/HCPCS: 96365; 49083; 80048; 83036; 84443; 85027; P9047; A4216

== ENCOUNTER → 2020-11-19 10:22 | Outpatient (CLI) | payer MEDICARE, SELFPAY ==
[2020-11-14 11:58] VITALS: BMI 30.5
--- NOTE | 2020-11-19 10:50 | RAD_ITS ---
STUDY: X-RAY CHEST REASON FOR EXAM: Female, 75 years old. CONFIRMATION OF PLACEMENT FOR L CHEST DIALYSIS CVC TECHNIQUE: Single AP portable view of the chest. COMPARISON: Comparison is made with prior examination dated 01/16/2021. FINDINGS: The tip of the left sided dialysis catheter is at the midportion of superior vena cava. This is unchanged. A right-sided portacatheter is seen with the tip at the junction of the superior vena cava and right atrium. Surgical clips are seen in the right axillary region. Elevation of the right hemidiaphragm. Moderate-sized hiatal hernia. Normal size heart. Normal mediastinum and owen. Normal visualized pulmonary arteries. Normal visualized aortic arch and descending thoracic aorta. Normal visualized thoracic spine. Normal visualized ribs, clavicles, and shoulders. There is no demonstrated abnormality of the visualized soft tissue structures of the upper abdomen. RAD/Chest 1 View IMPRESSION: A left-sided dialysis catheter is seen with the tip in the midportion of the superior vena cava. Electronically Signed: Rigo Britt MD at 11:13 EDT , Service support ,
== END ==
PROVIDERS: PCP Family Medicine; Referring Provider Internal Medicine Nephrology; Visit Provider Internal Medicine Nephrology
DX: Z45.2 Encounter for adjustment and management of vascular access device (principal)
CPT/HCPCS: 71045

== ENCOUNTER → 2020-11-21 10:24 | Outpatient (CLI) | payer MEDICARE, SELFPAY ==
[2020-11-14 11:58] VITALS: BMI 30.5
--- NOTE | 2020-11-21 10:27 | US_ITS ---
PROCEDURE: Ultrasound guided paracentesis. DATE OF EXAMINATION: 11/21/2020. INDICATION: Female, 75 years old. Ascites. PHYSICIAN: Rigo Britt M.D. TECHNIQUE: The risks, benefits, and alternatives to the procedure were explained to the patient. The specific risks of bleeding, infection, and damage to bowel were detailed and accepted. Witnessed informed consent was obtained. The abdomen was ultrasonographically surveyed. An appropriate pocket of fluid was identified at the right lower quadrant. The skin were cleaned and prepped in the usual sterile fashion. Using ultrasound guidance, the peritoneal cavity was accessed with a 5-[place] paracentesis needle/catheter system. The trocar was removed. A total of 6000 ml of harsh-colored fluid were removed from the peritoneal cavity. The catheter was removed and a sterile dressing was applied. The procedure was well tolerated. US/Paracentesis with US IMPRESSION: Ultrasound guided paracentesis. Electronically Signed: Rigo Britt MD at 11:35 EDT , Service support ,
[2020-11-21 11:15] VITALS: BP 105/50; BP 106/43; BP 94/44; PULSE 89; PULSE 90; PULSE 97; RESP 18; TEMP 36.4; O2SAT 100; O2SAT 99
[2020-11-21 12:00] VITALS: BP 81/36; PULSE 91; RESP 16; TEMP 35.7; O2SAT 100; BMI 30.5
[2020-11-21] MEDS: Albumin Human 25% (50 mL) 12.5 GM/50 ML IV.SOLN IV (12:01)
[2020-11-21 12:10] VITALS: BP 89/45; BMI 30.5
[2020-11-21 13:11] VITALS: BP 88/47; PULSE 91; RESP 18; O2SAT 98
== END ==
LOC: US 11:34 → MEDOUTP 11:35
PROVIDERS: PCP Family Medicine; Referring Provider Internal Medicine Gastroenterology; Visit Provider Internal Medicine Gastroenterology
DX: K74.60 Unspecified cirrhosis of liver (principal)
CPT/HCPCS: 96365; 49083; P9047; A4216